=== PATIENT | male | born 1940 | race Caucasian/White ===

== ENCOUNTER → 2018-02-19 11:55 | Outpatient (CLI) | payer MEDICARE, OTHER, SELFPAY ==
[2018-02-19 14:39] LABS: Prostate Specific Ag, Diagnost < 0.05 ng/mL (0.0-4.0)
== END ==
PROVIDERS: Visit Provider Urology
DX: C61 Malignant neoplasm of prostate (principal)
CPT/HCPCS: 36415; 84153

== ENCOUNTER → 2019-02-25 11:52 | Outpatient (CLI) | payer MEDICARE, OTHER, SELFPAY ==
[2019-02-25 20:44] LABS: Prostate Specific Ag, Diagnost 0 ng/mL (0.0-4.0)
== END ==
PROVIDERS: Visit Provider Urology
DX: C61 Malignant neoplasm of prostate (principal)
CPT/HCPCS: 36415; 84153

== ENCOUNTER → 2019-09-02 11:55 | Outpatient (CLI) | payer MEDICARE, OTHER, SELFPAY ==
[2019-09-02 14:23] LABS: Prostate Specific Ag, Diagnost 0 ng/mL (0.0-4.0)
== END ==
PROVIDERS: Visit Provider Urology
DX: C61 Malignant neoplasm of prostate (principal)
CPT/HCPCS: 36415; 84153

== ENCOUNTER → 2019-11-22 12:59 | Outpatient (CLI) | payer MEDICARE, OTHER, SELFPAY ==
--- NOTE | 2019-11-22 13:06 | XR_ITS ---
PROCEDURE: XR CHEST 2V CLINICAL HISTORY: DYSPNEA COMPARISON: CTAC CTA-CHEST from 09/05/2015 CXR1 CHEST-PORTABLE from 09/05/2015 CXR1 CHEST-PORTABLE from 09/07/2015 CXR1 CHEST-PORTABLE from 10/29/2015 FINDINGS: Unremarkable cardiovascular structures. There is mild hyperinflation. Parenchymal opacity is present the in the left lower lobe. This may be related to some parenchymal scarring but is somewhat more prominent compared to the previous exams. There is a subpleural nodule in the left lower lobe as seen on the previous CT scan measuring 10 mm. There are mild atelectatic changes in the right lung base. No acute bony findings. IMPRESSION: 1. COPD with suspected area of scarring in the left lower lobe. This however is somewhat more prominent compared to previous studies. CT may aid for further evaluation to exclude developing nodule. 2. 10 mm subpleural nodular opacity in the left lower lobe similar to previous CT scan of 09/05/2015. Dictated by: Andrey Graham MD 11/22/2019 13:45 Electronically signed by Andrey Graham MD in [place] 11/22/2019 13:45
== END ==
PROVIDERS: PCP Family Medicine; Visit Provider Family Medicine
DX: R06.09 Other forms of dyspnea (principal)
CPT/HCPCS: 71046

== ENCOUNTER → 2020-03-02 12:18 | Outpatient (CLI) | payer MEDICARE, OTHER, SELFPAY ==
[2020-03-02 13:53] LABS: Prostate Specific Ag, Diagnost < 0.064 ng/ml (0.0-4.0)
== END ==
PROVIDERS: Visit Provider Urology
DX: C61 Malignant neoplasm of prostate (principal)
CPT/HCPCS: 36415; 84153

== ENCOUNTER 2020-11-04 09:36 | Emergency (ER) | payer MEDICARE, OTHER, SELFPAY ==
[2020-11-04 09:36] VITALS: BMI 27.3
--- NOTE | 2020-11-04 09:39 | ECG_ITS ---
APPROVED REPORT Exam: Resting ECG HR:91 bpm ECG Measurements Heart Rate 91 AXES TN 132 P 59 QRSd 84 QRS -58 QT 374 T 67 QTc 460 Conclusion Sinus rhythm with premature atrial complexes with aberrant conduction Low voltage QRS Left anterior fascicular block Inferior-posterior infarct, age undetermined Abnormal ECG Electronically signed by : Marcos Hernandez, 11/06/2020 19:42:57
--- NOTE | 2020-11-04 09:39 | XR_ITS ---
PROCEDURE: XR CHEST PORTABLE Referring Doctor: Sarabjit Renteria Patient Age:79Y CLINICAL HISTORY: pain Chest pain COMPARISON: CT CTAC CTA-CHEST from 09/05/2015 CR CXR1 CHEST-PORTABLE from 09/05/2015 CR CXR1 CHEST-PORTABLE from 09/07/2015 CR CXR1 CHEST-PORTABLE from 10/29/2015 CR XR CHEST 2V from 11/22/2019 FINDINGS: AP portable upright chest performed today and compared to 11/22/2019 CXR as well as CT chest from 2014 . Chronic lung changes with some developing emphysematous appearance noting hyperexpansion most evident upper lung fox with slight coarsening markings towards lung bases period this is been seen previously and appears unchanged but no acute focal pneumonia or new density The focal density at the left lung base just above the diaphragm has been seen on previous studies including CT chest from 2014. Chest wall unremarkable. Heart of peers normal upper normal size with viktoriya and mediastinal structures unchanged. IMPRESSION: No acute findings. . Stable chest with nothing definitely acute. Mild chronic changes. Densities at left lung base longstanding feature seen on previous studies. Dictated by: Tr Cyr MD 11/04/2020 17:35 Tr Cyr MD in [place] 11/04/2020 17:35
[2020-11-04 10:03] LABS: Basophils % 0.4 % (0.1-2.0); Eosinophils # 0.2 K/mm3 (0.0-0.4); Eosinophils % 2.1 % (0.1-12.0); Hematocrit 38.1 % (42.0-52.0); Hemoglobin 12.6 g/dL (14.1-18.0); Lymphocytes # 2.8 K/mm3 (0.7-4.5); Mean Corpuscular Hemoglobin 28.7 pg (27.0-31.2); Mean Corpuscular Volume 86.8 fl (80-94); Mean Platelet Volume 7.5 fl (7.4-10.4); Monocytes # 0.4 K/mm3 (0.1-1.0); Monocytes % 5.2 % (1.7-9.3); Neutrophils # 4.9 K/mm3 (1.8-7.8); Neutrophils % 58.3 % (37.0-80.0); Platelet Count 279 K/mm3 (142-424); Red Blood Count 4.39 M/mm3 (4.60-6.20); Red Cell Distribution Width 14.2 % (11.5-17.5); White Blood Count 8.4 K/mm3 (4.8-10.8)
[2020-11-04 10:05] LABS: Anion Gap 11.5 mEq/L (5-15); Blood Urea Nitrogen 12 mg/dl (9-20); Calcium 9.2 mg/dl (8.4-10.2); Carbon Dioxide 28 mmol/L (22.0-30.0); Chloride 101 mmol/L (98-107); Creatinine Clearance Estimated 67 mL/min (50-200); Estimated Glomerular Filt Rate 72 ml/min (>60); GFR (African American) 87 ML/MIN (>60); Glucose 151 mg/dl (74-100); Potassium 3.5 mmoL/L (3.5-5.1); Sodium 137 mmol/L (136-145)
[2020-11-04 10:24] LABS: Troponin I < 0.01 ng/ml (0.00-0.034)
[2020-11-04 10:36] VITALS: BP 144/78; PULSE 72; RESP 20; O2SAT 95
[2020-11-04 10:40] LABS: Alanine Aminotransferase 14 U/L (12-78); Albumin Level 3.9 g/dl (3.5-5.0); Albumin/Globulin Ratio 1.2 (1.1-1.8); Alkaline Phosphatase 59 U/L (38-126); Anion Gap 11.5 mEq/L (5-15); Aspartate Amino Transferase 28 U/L (17-59); Bilirubin,Total 0.4 mg/dl (0.2-1.3); Blood Urea Nitrogen 13 mg/dl (9-20); Calcium 9.2 mg/dl (8.4-10.2); Carbon Dioxide 28 mmol/L (22.0-30.0); Chloride 101 mmol/L (98-107); Creatinine Clearance Estimated 67 mL/min (50-200); Estimated Glomerular Filt Rate 72 ml/min (>60); GFR (African American) 87 ML/MIN (>60); Globulin 3.2 g/dL (1.3-3.2); Glucose 151 mg/dl (74-100); Lipase 74 U/L (23-300); Potassium 3.5 mmoL/L (3.5-5.1); Sodium 137 mmol/L (136-145); Total Protein,Serum 7.1 g/dl (6.3-8.2)
[2020-11-04 11:02] LABS: Activated Partial Thrombo Time 24.3 seconds (23.6-34.0); INR 1.01 (0.9-1.1); Prothrombin Time 11.2 seconds (9.4-11.8)
--- NOTE | 2020-11-04 11:12 | HMH.EDCP ---
ED Disposition Clinical Impression: Chest pain Qualifiers: Chest pain type: unspecified Qualified Code(s): R07.9 - Chest pain, unspecified Disposition: Home, Self-Care Condition on Discharge: Good Additional Instructions: You were seen on an emergency basis. It is very important that you follow up with your primary care provider and/or specialist as we discussed within 2 days. All labs and imaging were obtained and interpreted here to rule out life threatening emergencies, but your final results should be reviewed by your primary doctor at your follow up appointment. Please return to the emergency department if any of your symptoms worsen, or if they do not improve as we discussed. Referrals: Félix Wasserman MD [Primary Care Provider] - - Critical Care Critical Care Time: No Attestation: On 11/04/20, the high probability of a clinically significant, sudden or life threatening deterioration of the following system(s) required my full and direct attention, intervention and personal management. The time I documented below is in addition to time spent performing reported procedures but includes the following listed in this critical care notation. Medical Decision Making - Medical Records Medical records reviewed: Yes: I reviewed the patient's medical records. - Kuldip Inquiry Pt receiving controlled substance: No Vital Signs: 11/04/20 10:36 11/04/20 11:29 11/04/20 12:07 Pulse Rate [Right Radial] 72 69 70 Respiratory Rate 20 16 16 Blood Pressure [Right Arm] 144/78 H 142/76 H 152/79 H Blood Pressure Mean [Right Arm] 100 98 103 Blood Pressure Source [Right Arm] Automatic Cuff Automatic Cuff Automatic Cuff Blood Pressure Position [Right Arm] Supine Sitting 02 Sat by Pulse Oximetry 95 95 96 Oxygen Delivery Method Room Air Room Air 11/04/20 12:30 Pulse Rate [Right Radial] 72 Respiratory Rate 20 Blood Pressure [Right Arm] 143/76 H Blood Pressure Mean [Right Arm] 98 Blood Pressure Source [Right Arm] Automatic Cuff Blood Pressure Position [Right Arm] Supine 02 Sat by Pulse Oximetry 95 Oxygen Delivery Method Room Air - Lab Data Lab results reviewed: Yes: I reviewed the patient's lab results. Lab Results 11/04/20 09:50: WBC 8.4, RBC 4.39 L, Hgb 12.6 L, Hct 38.1 L, MCV 86.8, MCH 28.7, MCHC 33.0, RDW 14.2, Plt Count 279, MPV 7.5, Neut % (Auto) 58.3, Lymph % (Auto) 34.0, [place] % (Auto) 5.2, Eos % (Auto) 2.1, Baso % (Auto) 0.4, Neut # (Auto) 4.9, Lymph # (Auto) 2.8, [place] # (Auto) 0.4, Eos # (Auto) 0.2, Baso # (Auto) 0.0 11/04/20 09:50: Sodium 137, Potassium 3.5, Chloride 101, Carbon Dioxide 28, Anion Gap 11.5, BUN 12, Creatinine 1.00, Estimated Creat Clear 67, Estimated GFR 72, Est GFR ( Amer) 87, Glucose 151 H, Calcium 9.2, Troponin I < 0.01 11/04/20 09:50: Sodium 137, Potassium 3.5, Chloride 101, Carbon Dioxide 28, Anion Gap 11.5, BUN 13, Creatinine 1.00, Estimated Creat Clear 67, Estimated GFR 72, Est GFR ( Amer) 87, Glucose 151 H, Calcium 9.2, Total Bilirubin 0.4, AST 28, ALT 14, Alkaline Phosphatase 59, Total Protein 7.1, Albumin 3.9, Globulin 3.2, Albumin/Globulin Ratio 1.2 11/04/20 09:50: PT 11.2, INR 1.01, APTT 24.3 11/04/20 09:50: Lipase 74 11/04/20 12:10: Troponin I < 0.01 Result diagrams: 11/04/20 09:50 11/04/20 09:50 Orders (Tests/Meds): ED MEDICATIONS Discontinued Medications Generic Name Dose Route Start Last Admin Trade Name Freq PRN Reason Stop Dose Admin Aspirin 243 mg 11/04/20 10:25 11/04/20 10:30 Aspirin 81mg Chewable Tablet PO 11/04/20 10:26 243 mg ONCE ONE Administration ORDERS Category Date Time Status XR chest portable Stat Exams 11/04/20 09:39 Taken Troponin I Q3H Lab 11/04/20 15:45 Ordered Medical Decision Narrative: 79-year-old male presenting with chest pain. Nontoxic, afebrile, hemodynamically stable, oxygenating well on room air. Asymptomatic here. Chest x-ray negative for acute disease. EKG negative for acute ischemia. CB
[2020-11-04 11:29] VITALS: BP 142/76; PULSE 69; RESP 16; O2SAT 95
[2020-11-04 12:07] VITALS: BP 152/79; PULSE 70; RESP 16; O2SAT 96
[2020-11-04 12:30] VITALS: BP 143/76; PULSE 72; RESP 20; O2SAT 95
[2020-11-04 12:42] LABS: Troponin I < 0.01 ng/ml (0.00-0.034)
[2020-11-04 13:38] VITALS: BP 155/74; PULSE 72; RESP 16; TEMP 36.9; O2SAT 98
== END 2020-11-04 13:41 | disposition home or self-care (01) ==
PROVIDERS: Emergency Provider Physician Assistant; PCP Family Medicine
DX: R07.9 Chest pain, unspecified (principal); I10 Essential (primary) hypertension; E78.5 Hyperlipidemia, unspecified; Z79.899 Other long term (current) drug therapy; Z85.46 Personal history of malignant neoplasm of prostate
CPT/HCPCS: 36415; 71045; 80048; 80053; 83690; 84484; 85025; 85610; 85730; 93005; 99282

== ENCOUNTER → 2020-11-23 11:19 | Outpatient (POV) | payer MEDICARE, OTHER, SELFPAY | PROVIDERS: Visit Provider Audiologist | DX: Z00.00 Encounter for general adult medical examination without abnormal findings (principal) ==

== ENCOUNTER → 2020-12-14 11:14 | Outpatient (POV) | payer MEDICARE, OTHER, SELFPAY | PROVIDERS: Visit Provider Audiologist | DX: Z00.00 Encounter for general adult medical examination without abnormal findings (principal) ==

== ENCOUNTER → 2020-12-28 11:21 | Outpatient (POV) | payer MEDICARE, OTHER, SELFPAY | PROVIDERS: Visit Provider Audiologist | DX: Z00.00 Encounter for general adult medical examination without abnormal findings (principal) ==

== ENCOUNTER → 2021-03-05 13:21 | Outpatient (CLI) | payer MEDICARE, OTHER, SELFPAY ==
[2021-03-05 14:48] LABS: Prostate Specific Ag, Diagnost < 0.064 ng/ml (0.0-4.0)
== END ==
PROVIDERS: Visit Provider Urology
DX: C61 Malignant neoplasm of prostate (principal)
CPT/HCPCS: 36415; 84153

== ENCOUNTER → 2021-07-17 11:48 | Outpatient (CLI) | payer MEDICARE, OTHER, SELFPAY ==
--- NOTE | 2021-07-17 11:54 | XR_ITS ---
PROCEDURE: XR CHEST PORTABLE CLINICAL HISTORY: COVID OUTPATIENT COMPARISON: CT CTAC CTA-CHEST from 09/05/2015 CR CXR1 CHEST-PORTABLE from 10/29/2015 CR XR CHEST 2V from 11/22/2019 CR XR CHEST PORTABLE from 11/04/2020 FINDINGS: The cardiomediastinal silhouette and pulmonary vascularity are within normal limits. Faint increased density noted in the left perihilar region and left lower lobe suspicious for pneumonia. COPD changes. No effusions. No acute bony abnormalities. IMPRESSION: Faint infiltrate in the left perihilar region and left lower lobe consistent with pneumonia Dictated by: Andrey Graham MD 07/17/2021 12:17 Andrey Graham MD in [place] 07/17/2021 12:17
[2021-07-17 12:29] LABS: Influenza A, PCR Not Detected (NotDetected); Influenza B, PCR Not Detected (NotDetected)
[2021-07-17 12:40] LABS: Basophils % 0.3 % (0.1-2.0); Eosinophils # 0.1 K/mm3 (0.0-0.4); Eosinophils % 1.4 % (0.1-12.0); Hematocrit 30.9 % (42.0-52.0); Hemoglobin 9.9 g/dL (14.1-18.0); Lymphocytes # 1.4 K/mm3 (0.7-4.5); Lymphocytes % 14.8 % (10-50); Mean Corpuscular Volume 87.7 fl (80-94); Mean Platelet Volume 8.4 fl (7.4-10.4); Monocytes # 0.5 K/mm3 (0.1-1.0); Monocytes % 5.4 % (1.7-9.3); Neutrophils # 7.5 K/mm3 (1.8-7.8); Neutrophils % 78.1 % (37.0-80.0); Platelet Count 259 K/mm3 (142-424); Red Blood Count 3.52 M/mm3 (4.60-6.20); Red Cell Distribution Width 14.6 % (11.5-17.5); White Blood Count 9.6 K/mm3 (4.8-10.8)
[2021-07-17 13:03] LABS: Coronavirus 19, PCR Detected (NotDetected)
== END ==
PROVIDERS: PCP Nurse Practitioner; Visit Provider Nurse Practitioner
DX: Z20.822 Contact with and (suspected) exposure to COVID-19 (principal); U07.1 COVID-19
CPT/HCPCS: 36415; 71045; 85025; C9803; U0003; U0005

== ENCOUNTER 2021-07-22 10:02 | Outpatient (CLI) | payer MEDICARE, OTHER, SELFPAY ==
[2021-07-22] VITALS (7 sets, daily range): BP systolic 145–156; BP diastolic 63–80; PULSE 71–78; RESP 18; TEMP 36.7–37.1; O2SAT 94–95
== END 2021-07-22 12:15 | disposition home or self-care (01) ==
PROVIDERS: PCP Family Medicine; Visit Provider Family Medicine
DX: U07.1 COVID-19 (principal)
CPT/HCPCS: 96365

== ENCOUNTER → 2021-09-06 11:32 | Outpatient (CLI) | payer MEDICARE, OTHER, SELFPAY ==
[2021-09-06 13:54] LABS: Prostate Specific Ag, Diagnost < 0.064 ng/ml (0.0-4.0)
== END ==
PROVIDERS: Visit Provider Urology
DX: C61 Malignant neoplasm of prostate (principal)
CPT/HCPCS: 36415; 84153

== ENCOUNTER → 2021-11-26 11:12 | Outpatient (CLI) | payer MEDICARE, OTHER, SELFPAY ==
--- NOTE | 2021-11-26 11:19 | XR_ITS ---
FINAL REPORT CLINICAL HISTORY: COUGH, congestion post covid in Jul Nonsmoker COMPARISON: July 17, 2021 FINDINGS: Two views of the chest were obtained. The heart size and pulmonary vascularity are within normal limits. The mediastinum is normal. The lungs are hyperinflated consistent with COPD. There is mild scarring. There is improved aeration since the prior exam.. There is no pneumothorax. The bony thorax is intact. IMPRESSION: No acute cardiopulmonary process. Reviewed, Interpreted and Dictated by Jorge Alberto Ribera III, MD Transcribed by Sandip Sanabria Authenticated by Jorge Alberto Ribera III, MD on 11/26/2021 01:07:13 PM [facility]
== END ==
PROVIDERS: PCP Family Medicine; Visit Provider Nurse Practitioner
DX: R05.9 Cough, unspecified (principal)
CPT/HCPCS: 71046

== ENCOUNTER → 2022-03-07 11:40 | Outpatient (CLI) | payer MEDICARE, OTHER, SELFPAY ==
[2022-03-07 15:19] LABS: Prostate Specific Ag, Diagnost < 0.064 ng/ml (0.0-4.0)
== END ==
PROVIDERS: Visit Provider Urology
DX: C61 Malignant neoplasm of prostate (principal)
CPT/HCPCS: 36415; 84153

== ENCOUNTER → 2022-04-30 07:01 | Outpatient (CLI) | payer MEDICARE, OTHER, SELFPAY ==
[2022-04-29 18:09] LABS: Basophils # 0.1 K/mm3 (0-0.2); Basophils % 0.5 % (0.1-2.0); Eosinophils # 0.1 K/mm3 (0.0-0.4); Eosinophils % 1.5 % (0.1-12.0); Hematocrit 32.4 % (42.0-52.0); Hemoglobin 10.5 g/dL (14.1-18.0); Lymphocytes # 2.3 K/mm3 (0.7-4.5); Lymphocytes % 25.6 % (10-50); Mean Corpuscular HGB Conc 32.4 g/dL (31.8-35.4); Mean Corpuscular Hemoglobin 27.2 pg (27.0-31.2); Mean Platelet Volume 7.7 fl (7.4-10.4); Monocytes # 0.8 K/mm3 (0.1-1.0); Monocytes % 8.6 % (1.7-9.3); Neutrophils # 5.6 K/mm3 (1.8-7.8); Neutrophils % 63.8 % (37.0-80.0); Platelet Count 276 K/mm3 (142-424); Red Blood Count 3.86 M/mm3 (4.60-6.20); Red Cell Distribution Width 14.9 % (11.5-17.5); White Blood Count 8.8 K/mm3 (4.8-10.8)
[2022-04-29 18:25] LABS: Alanine Aminotransferase 16 U/L (12-78); Albumin Level 3.6 g/dl (3.5-5.0); Albumin/Globulin Ratio 1.3 (1.1-1.8); Alkaline Phosphatase 67 U/L (38-126); Anion Gap 10.8 mEq/L (5-15); Aspartate Amino Transferase 24 U/L (17-59); Blood Urea Nitrogen 12 mg/dl (9-20); Calcium 8.8 mg/dl (8.4-10.2); Carbon Dioxide 28 mmol/L (22.0-30.0); Chloride 100 mmol/L (98-107); Estimated Glomerular Filt Rate 81 ml/min (>60); GFR (African American) 98 ML/MIN (>60); Globulin 2.7 g/dL (1.3-3.2); Glucose 104 mg/dl (74-100); Potassium 4.8 mmoL/L (3.5-5.1); Sodium 134 mmol/L (136-145); Total Protein,Serum 6.3 g/dl (6.3-8.2)
[2022-04-29 18:37] LABS: Bilirubin,Total < 0.1 mg/dl (0.2-1.3)
== END ==
PROVIDERS: PCP Nurse Practitioner; Visit Provider Nurse Practitioner
DX: R05.3 Chronic cough (principal)
CPT/HCPCS: 80053; 85025

== ENCOUNTER → 2022-04-30 11:43 | Outpatient (CLI) | payer MEDICARE, OTHER, SELFPAY ==
--- NOTE | 2022-04-30 11:54 | XR_ITS ---
FINAL REPORT CLINICAL HISTORY: SOB, cough, wheeze COMPARISON: 11/26/2021 FINDINGS: SINGLE-VIEW CHEST There is mild cardiomegaly. The mediastinum is normal. There is scarring at the bases. There is an airspace opacity in the right mid lung, probably due to acute pneumonia. Finding is new since the previous. There is no pneumothorax. IMPRESSION: Probable right midlung pneumonia. Recommend continued follow-up. Reviewed, Interpreted and Dictated by Aidan Alicea MD Transcribed by Charis Pizarro Authenticated and [facility]
== END ==
PROVIDERS: PCP Family Medicine; Visit Provider Nurse Practitioner
DX: R05.3 Chronic cough (principal); R06.02 Shortness of breath; R06.2 Wheezing
CPT/HCPCS: 71045; 80053; 85025

== ENCOUNTER → 2022-08-12 12:15 | Outpatient (CLI) | payer MEDICARE, OTHER, SELFPAY ==
[2022-08-12 19:36] LABS: Alanine Aminotransferase 17 U/L (12-78); Albumin Level 3.7 g/dl (3.5-5.0); Albumin/Globulin Ratio 1.5 (1.1-1.8); Alkaline Phosphatase 76 U/L (38-126); Anion Gap 15.8 mEq/L (5-15); Aspartate Amino Transferase 26 U/L (17-59); Bilirubin,Total 0.3 mg/dl (0.2-1.3); Blood Urea Nitrogen 15 mg/dl (9-20); Calcium 8.5 mg/dl (8.4-10.2); Carbon Dioxide 27 mmol/L (22.0-30.0); Chloride 98 mmol/L (98-107); Cholesterol 199 mg/dl (140-200); Estimated Glomerular Filt Rate 92 ml/min (>60); GFR (African American) 112 ML/MIN (>60); Globulin 2.5 g/dL (1.3-3.2); Glucose 103 mg/dl (74-100); HDL Cholesterol 50 mg/dl (40-60); Potassium 4.8 mmoL/L (3.5-5.1); Sodium 136 mmol/L (136-145); Total Protein,Serum 6.2 g/dl (6.3-8.2); Triglycerides 143 mg/dl (30-150); VLDL Cholesterol 29 mg/dL (0-40)
[2022-08-12 19:53] LABS: Direct LDL Cholesterol 120.31 mg/dL (100-129)
[2022-08-12 20:13] LABS: Prostate Specific Ag, Diagnost < 0.064 ng/ml (0.0-4.0)
== END ==
PROVIDERS: PCP Family Medicine; Visit Provider Family Medicine
DX: R07.9 Chest pain, unspecified; I10 Essential (primary) hypertension; Z85.46 Personal history of malignant neoplasm of prostate
CPT/HCPCS: 80053; 80061; 84153

== ENCOUNTER → 2023-02-10 23:19 | Outpatient (CLI) | payer MEDICARE, OTHER, SELFPAY ==
[2023-02-10 17:49] LABS: Alanine Aminotransferase 14 U/L (12-78); Albumin Level 3.6 g/dl (3.5-5.0); Albumin/Globulin Ratio 1.4 (1.1-1.8); Alkaline Phosphatase 67 U/L (38-126); Anion Gap 11.3 mEq/L (5-15); Aspartate Amino Transferase 24 U/L (17-59); Bilirubin,Total 0.3 mg/dl (0.2-1.3); Blood Urea Nitrogen 14 mg/dl (9-20); Calcium 8.4 mg/dl (8.4-10.2); Carbon Dioxide 28 mmol/L (22.0-30.0); Chloride 99 mmol/L (98-107); Cholesterol 171 mg/dl (140-200); Estimated Glomerular Filt Rate 71 ml/min (>60); GFR (African American) 86 ML/MIN (>60); Globulin 2.6 g/dL (1.3-3.2); Glucose 97 mg/dl (74-100); HDL Cholesterol 43 mg/dl (40-60); Potassium 4.3 mmoL/L (3.5-5.1); Sodium 134 mmol/L (136-145); Total Protein,Serum 6.2 g/dl (6.3-8.2); Triglycerides 140 mg/dl (30-150); VLDL Cholesterol 28 mg/dL (0-40)
[2023-02-10 18:02] LABS: Direct LDL Cholesterol 103.88 mg/dL (100-129)
[2023-02-10 18:05] LABS: Hemoglobin A1C 5.7 % (4.0-6.0)
[2023-02-10 18:22] LABS: Thyroid Stimulating Hormone 3.23 uIU/mL (0.465-4.68)
[2023-02-10 18:23] LABS: Prostate Specific Ag, Diagnost < 0.064 ng/ml (0.0-4.0)
[2023-02-10 21:20] LABS: Microalbumin/Creatinine Ratio 13.7
[2023-02-10 21:34] LABS: Creatinine,Urine Random 106 mg/dL (Not Estab.)
== END ==
PROVIDERS: PCP Nurse Practitioner; Visit Provider Nurse Practitioner
DX: E78.5 Hyperlipidemia, unspecified (principal); I10 Essential (primary) hypertension; R73.01 Impaired fasting glucose; Z85.46 Personal history of malignant neoplasm of prostate
CPT/HCPCS: 80053; 80061; 82043; 82570; 83036; 84153; 84443

== ENCOUNTER → 2023-02-21 13:28 | Outpatient (CLI) | payer MEDICARE, OTHER, SELFPAY | PROVIDERS: PCP Nurse Practitioner; Visit Provider Nurse Practitioner | DX: R60.0 Localized edema (principal) | CPT/HCPCS: 93306 ==

== ENCOUNTER → 2023-04-16 12:20 | Outpatient (CLI) | payer MEDICARE, OTHER, SELFPAY ==
[2023-04-16 18:29] LABS: Chloride 99 mmol/L (98-107)
[2023-04-16 18:30] LABS: Potassium 4.8 mmoL/L (3.5-5.1); Sodium 135 mmol/L (136-145)
[2023-04-16 18:32] LABS: Alanine Aminotransferase 17 U/L (12-78); Alkaline Phosphatase 62 U/L (38-126); Aspartate Amino Transferase 32 U/L (17-59); Blood Urea Nitrogen 19 mg/dl (9-20); Estimated Glomerular Filt Rate 64 ml/min (>60); GFR (African American) 77 ML/MIN (>60)
[2023-04-16 18:33] LABS: Albumin Level 3.6 g/dl (3.5-5.0); Albumin/Globulin Ratio 1.3 (1.1-1.8); Anion Gap 13.8 mEq/L (5-15); Calcium 8.5 mg/dl (8.4-10.2); Carbon Dioxide 27 mmol/L (22.0-30.0); Globulin 2.7 g/dL (1.3-3.2); Glucose 105 mg/dl (74-100); Total Protein,Serum 6.3 g/dl (6.3-8.2)
[2023-04-16 18:37] LABS: Bilirubin,Total 0.1 mg/dl (0.2-1.3)
== END ==
PROVIDERS: PCP Nurse Practitioner; Visit Provider Nurse Practitioner
DX: I10 Essential (primary) hypertension (principal)
CPT/HCPCS: 80053

== ENCOUNTER → 2023-08-12 10:52 | Outpatient (CLI) | payer MEDICARE, OTHER, SELFPAY ==
[2023-08-12 17:53] LABS: Basophils % 0.3 % (0.1-2.0); Eosinophils # 0.2 K/mm3 (0.0-0.4); Eosinophils % 1.8 % (0.1-12.0); Hematocrit 29.2 % (42.0-52.0); Hemoglobin 9.3 g/dL (14.1-18.0); Lymphocytes # 1.9 K/mm3 (0.7-4.5); Lymphocytes % 20.6 % (10-50); Mean Corpuscular HGB Conc 31.8 g/dL (31.8-35.4); Mean Corpuscular Hemoglobin 23.9 pg (27.0-31.2); Mean Corpuscular Volume 75.1 fl (80-94); Mean Platelet Volume 8.7 fl (7.4-10.4); Monocytes # 0.6 K/mm3 (0.1-1.0); Monocytes % 6.6 % (1.7-9.3); Neutrophils # 6.7 K/mm3 (1.8-7.8); Neutrophils % 70.8 % (37.0-80.0); Platelet Count 348 K/mm3 (142-424); Red Blood Count 3.88 M/mm3 (4.60-6.20); Red Cell Distribution Width 17.4 % (11.5-17.5); White Blood Count 9.4 K/mm3 (4.8-10.8)
[2023-08-12 17:59] LABS: Alanine Aminotransferase 17 U/L (12-78); Albumin Level 3.8 g/dl (3.5-5.0); Albumin/Globulin Ratio 1.4 (1.1-1.8); Alkaline Phosphatase 71 U/L (38-126); Anion Gap 12.6 mEq/L (5-15); Aspartate Amino Transferase 44 U/L (17-59); Bilirubin,Total 0.4 mg/dl (0.2-1.3); Blood Urea Nitrogen 13 mg/dl (9-20); Carbon Dioxide 25 mmol/L (22.0-30.0); Chloride 99 mmol/L (98-107); Cholesterol 183 mg/dl (140-200); Estimated Glomerular Filt Rate 80 ml/min (>60); GFR (African American) 97 ML/MIN (>60); Globulin 2.7 g/dL (1.3-3.2); Glucose 113 mg/dl (74-100); HDL Cholesterol 46 mg/dl (40-60); Potassium 4.6 mmoL/L (3.5-5.1); Sodium 132 mmol/L (136-145); Total Protein,Serum 6.5 g/dl (6.3-8.2); Triglycerides 123 mg/dl (30-150); VLDL Cholesterol 25 mg/dL (0-40)
[2023-08-12 18:10] LABS: Direct LDL Cholesterol 109.31 mg/dL (100-129)
[2023-08-12 18:38] LABS: Prostate Specific Ag, Diagnost < 0.064 ng/ml (0.0-4.0)
[2023-08-12 20:55] LABS: Hemoglobin A1C 5.7 % (4.0-6.0)
== END ==
PROVIDERS: PCP Nurse Practitioner; Visit Provider Nurse Practitioner
DX: E78.5 Hyperlipidemia, unspecified (principal); I10 Essential (primary) hypertension; R06.02 Shortness of breath; R60.0 Localized edema; R73.01 Impaired fasting glucose; Z85.46 Personal history of malignant neoplasm of prostate; R05.3 Chronic cough
CPT/HCPCS: 80053; 80061; 83036; 84153; 85025

== ENCOUNTER → 2023-08-18 11:07 | Outpatient (CLI) | payer MEDICARE, OTHER, SELFPAY ==
--- NOTE | 2023-08-18 11:10 | NM_ITS ---
APPROVED REPORT Exam: Nuclear Stress Test Indication: HTN, HYPERLIPIDEMIA, SOB, FATIGUE Patient Location: Outpatient Stress Tech: Dayan Chi [place] Tech:ILIANA Andre RT (R)(N)(M) Ht: 5 ft 8 in Wt: 200 lbs HR: 75 bpm BP: 165/71 mmHg BSA: 2.04 m2 Rhythm: NSR TID: 1.21 BMI: 30.4 History: HTN, HYPERLIPIDEMIA, SOB, FATIGUE Procedure: Patient received 0.4 mg of intravenous Lexiscan, resting heart rate 75 bpm, resting blood pressure 165/71 mmHg, with Lexiscan maximum heart rate achieved was 102 bpm which is % of the maximum predicted heart rate and blood pressure was 165/71 mmHg. With Lexiscan, patient denied any complaint of chest pain. Cardiac Stress and Resting SPECT Images: Cardiac Stress and Resting SPECT images were obtained using technetium 99m Myoview 30.8 mCi stress and 10.40 mCi at rest. Resting and stress imaging in supine position demonstrate medium sized, moderate, fixed perfusion defect in the inferior LV wall. This is no longer visualized with prone stress imaging. Findings are suggestive of diaphragmatic attenuation. There is borderline increase in transient ischemic dilatation ratio (TID 1.21), suggestive of possible multivessel disease or balanced ischemia. Gated imaging demonstrates normal global and regional LV systolic function. LVEF is calculated at 69%. Conclusion: Diaphragmatic attenuation is present. No definite evidence of fixed or reversible perfusion defects. Borderline increase in transient ischemic dilatation ratio (TID 1.21), suggestive of possible multivessel disease or balanced ischemia. Gated imaging demonstrates normal global and regional LV systolic function. LVEF is calculated at 69%. Electronically signed by : Ana Kimble MD 08/21/2023 12:46:51
--- NOTE | 2023-08-18 13:34 | CA_ITS ---
APPROVED REPORT Exam: Pharmacologic Technologist: Dayan Chi Ht: 5 ft 8 in Wt: 205 lbs BSA: 2.07 m2 HR: 77 bpm BP: 165/71 mmHg Rhythm: NSR Indications: Shortnessof Breath Medical History Medications: Lisinopril,,,,, Aspirin,,,,, Albuterol,,,,, DOxazosin,,,,, Furosemide,,,,, Stress Test Details Test: LEXISCAN HR Resting HR: 75 bpm Max Heart Rate (APMHR): 136 bpm Max HR Achieved: 102 bpm Target HR (85% APMHR): 116 bpm % of APMHR: 75 Recovery HR: 87 bpm BP Resting BP: 165.0/71.0 mmHg Max BP: 165.0/71.0 mmHg Recovery BP: 132.0/60.0 mmHg ECG Resting ECG: Sinus rhythm, PVCs Stress ECG: No significant ST changes Arrhythmia: PVCs Clinical Exercise duration: 04:04 min Highest Stage Achieved: Exercise capacity: 1.0 METs Stress ECG Conclusion Symptoms: Dyspnea Arrhythmias/Ectopy: PVC's ST-T Changes: No significant changes Conclusion: Unremarkable Lexiscan stress test. Myoview images are reported separately. Test Summary REST . . . . . . . Resting REST 03:14 . . 75 . 165/ 71 . . Stage 1 . . . . . . . Myoview Injected Stage 1 01:00 . . 88 . . . . Stage 2 01:00 . . 93 . 124/ 52 . . Stage 3 . . . . . . . chest tightness Stage 3 01:00 . . 92 . 124/ 57 . . Stage 4 01:00 . . 89 . 123/ 58 . . Stage 4 01:04 . . 89 . 123/ 58 . Stop exercise at 04:04 RECOVERY 01:00 . . 87 . . . . RECOVERY 02:00 . . 88 . 139/ 60 . . RECOVERY 03:00 . . 88 . 136/ 64 . . RECOVERY 04:00 . . 87 . 132/ 60 . . RECOVERY 04:28 . . 86 . 132/ 60 . . Electronically signed by : Ana Kimble MD 08/21/2023 12:44:06
== END ==
PROVIDERS: PCP Nurse Practitioner; Visit Provider Nurse Practitioner
DX: R06.02 Shortness of breath (principal)
CPT/HCPCS: 78452; 93017; A9502; J2785

== ENCOUNTER → 2023-08-20 14:31 | Outpatient (CLI) | payer MEDICARE, OTHER, SELFPAY ==
[2023-08-20 15:40] VITALS: PULSE 88; PULSE 90
== END ==
PROVIDERS: PCP Nurse Practitioner; Visit Provider Nurse Practitioner
DX: R06.02 Shortness of breath (principal)
CPT/HCPCS: 94060; 94640

== ENCOUNTER 2023-09-01 08:44 | Day surgery (SDC) | payer MEDICARE, OTHER, SELFPAY ==
[2023-09-01] VITALS (12 sets, daily range): BP systolic 107–187; BP diastolic 53–90; PULSE 62–86; RESP 16–20; TEMP 36.9; O2SAT 90–100; BMI 31.0
--- NOTE | 2023-09-01 07:13 | IR_ITS ---
APPROVED REPORT Patient Location: Outpatient Chief Engineering Division: ILIANA Gar RT (R) PROCEDURES Left heart catheterization Left ventriculogram Selective coronary angiogram INDICATION Abnormal Myoview, Suspected angina pectoris Informed consent was obtained prior to the procedure. COMPLICATIONS None Estimated Blood Loss: Less than 10 ML TECHNIQUE One percent lidocaine used to anesthetize the right anterior aspect of the wrist. The right radial artery was accessed via the Seldinger technique. A 6 Egyptian sheath was placed in the right radial artery. 2.5 mg of Verapamil, 800 mcg of nitroglycerin, 1mg Lidocaine and 5000 U Heparin were given through the arterial sheath. The papa catheter was also used to perform left heart catheterization, left ventriculogram and selective coronary angiogram. At the end of the procedure the sheath was removed good hemostasis was achieved using Traclet band, patient was transferred to the postop holding area in stable condition. ANGIOGRAPHIC RESULTS The left main artery Normal The left anterior descending artery Proximally normal with a long mid vessel 40 to 50% concentric stenosis The circumflex artery Large dominant normal The right coronary artery Nondominant normal The PINEDA ventriculogram reveals Normal 65% The left ventricular end-diastolic pressure 10 to 15 mmHg IMPRESSION Moderate mid LAD disease which is unlikely producing symptoms or the etiology for the abnormal Myoview Normal ejection fraction Normal LVEDP PLAN 1. Medical management Electronically signed by : Hermes Wyatt MD 09/01/2023 11:20:27
[2023-09-01 09:21] LABS: Basophils % 0.4 % (0.1-2.0); Eosinophils # 0.2 K/mm3 (0.0-0.4); Eosinophils % 2.1 % (0.1-12.0); Hematocrit 29.6 % (42.0-52.0); Hemoglobin 9.5 g/dL (14.1-18.0); Lymphocytes # 2.7 K/mm3 (0.7-4.5); Lymphocytes % 26.1 % (10-50); Mean Corpuscular Hemoglobin 23.7 pg (27.0-31.2); Mean Platelet Volume 7.6 fl (7.4-10.4); Monocytes # 0.6 K/mm3 (0.1-1.0); Monocytes % 5.4 % (1.7-9.3); Neutrophils # 6.9 K/mm3 (1.8-7.8); Neutrophils % 65.9 % (37.0-80.0); Platelet Count 354 K/mm3 (142-424); Red Blood Count 4.01 M/mm3 (4.60-6.20); Red Cell Distribution Width 17.5 % (11.5-17.5); White Blood Count 10.5 K/mm3 (4.8-10.8)
[2023-09-01 09:24] LABS: Chloride 103 mmol/L (98-107); Potassium 3.9 mmoL/L (3.5-5.1); Sodium 137 mmol/L (136-145)
[2023-09-01 09:27] LABS: Anion Gap 11.9 mEq/L (5-15); Blood Urea Nitrogen 15 mg/dl (9-20); Calcium 8.7 mg/dl (8.4-10.2); Carbon Dioxide 26 mmol/L (22.0-30.0); Creatinine Clearance Estimated 72 mL/min (50-200); Estimated Glomerular Filt Rate 71 ml/min (>60); GFR (African American) 86 ML/MIN (>60); Glucose 115 mg/dl (74-100)
== END 2023-09-01 14:42 | disposition home or self-care (01) ==
PROVIDERS: PCP Nurse Practitioner; Visit Provider Internal Medicine
DX: I25.118 Atherosclerotic heart disease of native coronary artery with other forms of angina pectoris (principal); R94.39 Abnormal result of other cardiovascular function study; R06.02 Shortness of breath; Z79.899 Other long term (current) drug therapy; I10 Essential (primary) hypertension; E78.5 Hyperlipidemia, unspecified; R94.31 Abnormal electrocardiogram [ECG] [EKG]
CPT/HCPCS: 80048; 82565; 85025; 93458; 99152; C1725; C1769; J1644; Q9967

== ENCOUNTER → 2023-09-16 11:03 | Outpatient (POV) | payer MEDICARE, OTHER, SELFPAY | PROVIDERS: PCP Nurse Practitioner; Visit Provider Dermatology | DX: Z00.00 Encounter for general adult medical examination without abnormal findings (principal) ==

== ENCOUNTER 2023-10-23 16:32 | Outpatient (CLI) | payer MEDICARE, OTHER, SELFPAY ==
[2023-10-23 19:46] LABS: Basophils # 0.1 K/mm3 (0-0.2); Basophils % 0.7 % (0.1-2.0); Eosinophils # 0.2 K/mm3 (0.0-0.4); Eosinophils % 1.9 % (0.1-12.0); Hematocrit 28.1 % (42.0-52.0); Hemoglobin 8.6 g/dL (14.1-18.0); Lymphocytes # 2.5 K/mm3 (0.7-4.5); Lymphocytes % 26.5 % (10-50); Mean Corpuscular HGB Conc 30.5 g/dL (31.8-35.4); Mean Corpuscular Hemoglobin 22.5 pg (27.0-31.2); Mean Corpuscular Volume 73.8 fl (80-94); Mean Platelet Volume 7.6 fl (7.4-10.4); Monocytes # 0.5 K/mm3 (0.1-1.0); Monocytes % 5.5 % (1.7-9.3); Neutrophils # 6.2 K/mm3 (1.8-7.8); Neutrophils % 65.5 % (37.0-80.0); Platelet Count 370 K/mm3 (142-424); Red Cell Distribution Width 17.8 % (11.5-17.5); Reticulocyte % (Auto) 1.9 % (0.9-3.2); White Blood Count 9.4 K/mm3 (4.8-10.8)
[2023-10-23 20:23] LABS: Chloride 105 mmol/L (98-107); Sodium 137 mmol/L (136-145)
[2023-10-23 20:24] LABS: Potassium 4.1 mmoL/L (3.5-5.1)
[2023-10-23 20:26] LABS: Alanine Aminotransferase 24 U/L (12-78); Alkaline Phosphatase 65 U/L (38-126); Anion Gap 12.1 mEq/L (5-15); Aspartate Amino Transferase 29 U/L (17-59); Bilirubin,Total 0.3 mg/dl (0.2-1.3); Blood Urea Nitrogen 16 mg/dl (9-20); Carbon Dioxide 24 mmol/L (22.0-30.0); Estimated Glomerular Filt Rate 64 ml/min (>60); GFR (African American) 77 ML/MIN (>60)
[2023-10-23 20:27] LABS: Albumin Level 3.6 g/dl (3.5-5.0); Albumin/Globulin Ratio 1.5 (1.1-1.8); Calcium 8.1 mg/dl (8.4-10.2); Globulin 2.4 g/dL (1.3-3.2); Glucose 107 mg/dl (74-100); Iron 26 ug/dL (49-181)
[2023-10-23 20:44] LABS: Total Iron Binding Capacity 417 ug/dL (261-462)
[2023-10-23 23:19] LABS: Vitamin B12 182 pg/mL (239-931)
== END 2023-10-23 23:59 ==
LOC: LAB.DROPOF 10-24 11:11
PROVIDERS: PCP Nurse Practitioner; Visit Provider Nurse Practitioner
DX: D64.9 Anemia, unspecified (principal)
CPT/HCPCS: 80053; 82607; 82728; 83540; 83550; 85025; 85044

== ENCOUNTER 2023-11-12 10:57 | Day surgery (SDC) | payer MEDICARE, OTHER, SELFPAY ==
[2023-11-11 13:28] VITALS: BMI 31.9
[2023-11-12] VITALS (7 sets, daily range): BP systolic 74–167; BP diastolic 47–92; PULSE 62–101; RESP 14–18; TEMP 36.1–36.2; O2SAT 94–98
[2023-11-12] MEDS: LACTATED RINGERS 1000ML 1,000 ML 100 ML IV (11:34)
--- NOTE | 2023-11-12 11:45 | P.PNANES_ITS ---
[facility] Disclaimer: The information contained in this section may have been updated after the patient was seen, as this information can be updated by other users. Medical History Abnormal PFT Anemia COPD (chronic obstructive pulmonary disease) Coronary artery disease Dyslipidemia Dyspnea on exertion Edema of both lower extremities Essential hypertension Fibrosis of lung History of smoking 30 or more pack years Hypertension IFG (impaired fasting glucose) Impacted cerumen, left ear Neoplasm of uncertain behavior of skin of face Prostate cancer Shortness of breath Vitamin B12 deficiency Surgical History History of appendectomy History of hernia repair Family History Other Cancer Social History Smoking Status: Never smoker second hand exposure: No alcohol intake: never substance use type: denies use current occupational status: retired Travel in the last 8 weeks: None household members: spouse housing: house current occupational exposures/hazards: No caffeine: Yes [facility] Anesthesia Checklist Patient Identification Patient Identification: Arm Band and Verbal (Name & ) Structural Data Admitted From: Home Planned Operative Procedure/s: EGD/Colonoscopy Consent for Planned Operative Procedure(s) Verified: Yes NPO Status Verified Time NPO: 00:00 Airway Assessment Mallampati Score:: Class I C-Spine Mobility Assessed: Yes TMJ Mobility Assessed: Yes Dentition: Dentures-good fit Neurological Assessment Level of Consciousness: Awake Hx Seizures: No Numbness or tingling in extremities: No Anesthesia Plan Anesthesia Risk discussed: Yes Anesthesia Plan: Verified ASA Class: III Anesthesia Type: MAC
--- NOTE | 2023-11-12 12:55 | HMH.SCOPE ---
Procedure: Date: 11/12/23 Patient Date of :: 1940 Procedure Performed:: Colonoscopy Indications:: The patient is an 82-year-old who presents for colonoscopy for iron deficiency anemia. The patient has no history of overt GI bleeding. Performing Provider:: Ernst Madsen MD Referring Provider:: Junaid Lang MD Sedation:: See RN records Procedure:: After placing the patient in the left lateral decubitus position, the colonoscopy was gently inserted into the rectum and under direct visualization advanced to the cecum which was identified by transillumination in the right lower quadrant, identification of the ileocecal valve, appendiceal orifice, and cecal strap. Color, texture, mucosa, and anatomy of the colon were carefully examined with the scope. Findings:: The quality of the bowel preparation was fair to poor, this was mostly in the sigmoid colon and descending colon. Time was spent irrigating and cleansing the mucosa. The sigmoid colon appeared edematous with congested appearing mucosa. This created a smaller caliber lumen in this area. Biopsies were obtained. There was extensive diverticulosis in the sigmoid colon. There was also diverticulosis in the transverse and descending colon. A 3 mm sessile polyp was found in the distal transverse colon. The polyp was removed with a cold forceps. There was a sessile polyp 7 mm in size in the descending colon. The polyp was removed with a cold snare polypectomy. Resection was complete and polyp was retrieved. Impression: Edematous (congested) mucosa of the sigmoid colon Diverticulosis Polyp of descending colon and transverse colon Fair bowel preparation Recommendations:: Await pathology result CT abdomen and pelvis with contrast Will also arrange small bowel capsule endoscopy after review of CT abdomen pelvis first Complications:: None Estimated blood obtained (mL): 0 Colonoscopy Component Colonoscopy Component Was a colonoscopy performed during today's procedure?: Yes Recommended follow up colonoscopy of at least 10 years?: No If no, follow up colonoscopy recommended in ___ years?: No further surveillance colonoscopy due to age Reason for not recommending >/= 10 yr follow-up interval?: See above
--- NOTE | 2023-11-12 13:35 | HMH.SCOPE ---
Procedure: Date: 11/12/23 Patient Date of :: 1940 Procedure Performed:: EGD Indications:: The patient is an 82-year-old who presents for EGD evaluation of anemia Performing Provider:: Ernst Madsen MD Referring Provider:: Junaid Lang MD Sedation:: See RN records Procedure:: The gastroscope was gently passed through the incisoral orifice into the oral cavity and under direct visualization the esophagus was intubated. The endoscope was passed down the esophagus, through the stomach, and into the duodenum. Color, texture, mucosa, and anatomy of the esophagus, stomach, and duodenum were carefully examined with the scope. Findings:: The Z-line was measured at 36 cm from the incisors. There was a non-obstructing Schatzki's ring. The biopsy forceps was used to break apart the ring. There was a hiatal hernia approximately 3 to 4 cm in size. There were no apparent Amor ulcerations. There was a moderate amount of inflammation in the body of the stomach. Biopsies were obtained for histology. Recommendations:: Await pathology results Move forward to colonoscopy for further evaluation of iron deficiency anemia Complications:: None Estimated blood obtained (mL): 0 Colonoscopy Component Colonoscopy Component Was a colonoscopy performed during today's procedure?: No
--- NOTE | 2023-11-12 13:38 | HMH.SCOPE ---
Procedure: Date: 11/12/23 Patient Date of :: 1940 Indications:: The patient Performing Provider:: Ernst Madsen MD
== END 2023-11-12 14:23 | disposition home or self-care (01) ==
PROVIDERS: PCP Nurse Practitioner; Visit Provider Internal Medicine
PROC: 0DJ08ZZ Inspection of Upper Intestinal Tract, Via Natural or Artificial Opening Endoscopic (ICD-10-PCS; CPT 43235; principal; 2023-11-12 12:00)
DX: D50.9 Iron deficiency anemia, unspecified (principal); K57.30 Diverticulosis of large intestine without perforation or abscess without bleeding; K22.2 Esophageal obstruction; K44.9 Diaphragmatic hernia without obstruction or gangrene; K29.50 Unspecified chronic gastritis without bleeding; K31.A0 Gastric intestinal metaplasia, unspecified; D12.5 Benign neoplasm of sigmoid colon
CPT/HCPCS: 43239; 45380; 45385; 88305; 88342; J2704

== ENCOUNTER 2023-11-25 10:41 | Outpatient (CLI) | payer MEDICARE, OTHER, SELFPAY ==
[2023-11-25 11:36] LABS: Basophils # 0.1 K/mm3 (0-0.2); Basophils % 0.7 % (0.1-2.0); Eosinophils # 0.2 K/mm3 (0.0-0.4); Eosinophils % 2.2 % (0.1-12.0); Hematocrit 34.1 % (42.0-52.0); Lymphocytes # 2.6 K/mm3 (0.7-4.5); Lymphocytes % 25.9 % (10-50); Mean Corpuscular HGB Conc 32.4 g/dL (31.8-35.4); Mean Corpuscular Hemoglobin 25.7 pg (27.0-31.2); Mean Corpuscular Volume 79.5 fl (80-94); Mean Platelet Volume 7.7 fl (7.4-10.4); Monocytes # 0.6 K/mm3 (0.1-1.0); Monocytes % 6.1 % (1.7-9.3); Neutrophils # 6.4 K/mm3 (1.8-7.8); Neutrophils % 65.1 % (37.0-80.0); Platelet Count 328 K/mm3 (142-424); Red Blood Count 4.29 M/mm3 (4.60-6.20); Red Cell Distribution Width 21.6 % (11.5-17.5); White Blood Count 9.9 K/mm3 (4.8-10.8)
[2023-11-25 13:23] LABS: Vitamin B12 857 pg/mL (239-931)
[2023-11-25 13:27] LABS: Iron 38 ug/dL (49-181)
[2023-11-25 13:36] LABS: Total Iron Binding Capacity 338 ug/dL (261-462)
[2023-11-25 14:04] LABS: Ferritin 13.7 ng/ml (17.9-464)
== END 2023-11-25 23:59 ==
LOC: LAB 10:42
PROVIDERS: PCP Nurse Practitioner; Visit Provider Internal Medicine Medical Oncology
DX: D50.9 Iron deficiency anemia, unspecified (principal); E53.8 Deficiency of other specified B group vitamins
CPT/HCPCS: 36415; 82607; 82728; 82746; 83540; 83550; 85025

== ENCOUNTER 2023-11-26 07:59 | Outpatient (CLI) | payer MEDICARE, OTHER, SELFPAY ==
[2023-11-26 08:32] VITALS: BMI 31.3
--- NOTE | 2023-11-26 08:37 | CT_ITS ---
FINAL REPORT CLINICAL HISTORY: ABN COLONOSCOPY AND ANEMIA COMPARISON: None FINDINGS: CT OF THE ABDOMEN AND PELVIS WITH CONTRAST Axial CT images of the abdomen and pelvis were obtained after the administration of oral and iv contrast. Coronal reformatted images were also obtained and reviewed.This study was performed with techniques to keep radiation doses as low as reasonably achievable (ALARA). Individualized dose reduction techniques using automated exposure control or adjustment of mA and/or kV according to the patient's size were employed. Abdomen: There are several nodules in the left lung base measuring up to 22 mm. There is also a groundglass nodule in the right lung base measuring 16 mm. The heart is normal in size. There are several low-attenuation masses in the liver which are not definite simple cysts or hemangiomas. The spleen is unremarkable. No adrenal mass is present. The pancreas has an unremarkable appearance. There is a small left renal cyst. The aorta is normal in caliber. There are moderate vascular calcifications. There is no free fluid or adenopathy. There is an umbilical hernia containing fat. Pelvis: The appendix is not well-visualized. The urinary bladder is unremarkable. Prostate seed implants are noted. There is no evidence of mass or adenopathy. There is widespread diverticulosis. There is no evidence of bowel obstruction. IMPRESSION: Bibasilar pulmonary nodules may represent inflammation or neoplasm. Recommend follow-up CT chest in 3 months or PET/CT. Hepatic masses, not definite cysts. Recommend follow-up liver mass protocol CT or liver MRI Reviewed, Interpreted and Dictated by Jorge Alberto Ribera III, MD Transcribed by Patsy Love Authenticated and [facility]
[2023-11-26 09:05] LABS: Blood Urea Nitrogen 12 mg/dl (9-20); Creatinine Clearance Estimated 73 mL/min (50-200); Estimated Glomerular Filt Rate 80 ml/min (>60); GFR (African American) 97 ML/MIN (>60)
[2023-11-26] MEDS: SODIUM CHLORIDE 0.9% 10ML SYR (RAD ONLY) 10 ML IV (09:59)
[2023-11-26] MEDS: BARIUM SULFATE(READI-CAT2);450ML BOTTLE 450 ML PO (09:59)
[2023-11-26] MEDS: IOPAMIDOL-370 (76%);100ML BOTTLE 75 ML IV (09:59)
== END 2023-11-26 23:59 ==
LOC: RAD 08:00
PROVIDERS: PCP Nurse Practitioner; Visit Provider Internal Medicine
DX: D64.9 Anemia, unspecified (principal); R93.3 Abnormal findings on diagnostic imaging of other parts of digestive tract
CPT/HCPCS: 36415; 74177; 82565; 84520; Q9967

== ENCOUNTER 2024-01-29 14:45 | Outpatient (CLI) | payer MEDICARE, OTHER, SELFPAY ==
--- NOTE | 2024-01-29 15:08 | CT_ITS ---
FINAL REPORT TECHNIQUE: Axial imaging of the chest was obtained without contrast. Reformatted images were also obtained and reviewed.This study was performed with techniques to keep radiation doses as low as reasonably achievable, (ALARA). Individualized dose reduction technique using automated exposure control or adjustment of mA and/or kV according to the patient's size were employed. CLINICAL HISTORY: .NODULE COMPARISON: 11/26/2023 FINDINGS: There is no axillary adenopathy. There is no hilar or mediastinal mass or adenopathy. Heart size is normal. There is no pericardial or pleural effusion. Limited images of the upper abdomen are unremarkable. There are multiple pulmonary nodules. There is a 14 mm nodule near the left major fissure on image 15. There is an irregular right upper lobe nodule measuring 14 mm on image 15. There is an irregular soft tissue opacity at the left lung base measuring 27 mm on image 25. There is also a nodule at the lateral left lower lobe measuring 12 mm on image 24 as well as an 11 mm left lower lobe nodule on image 28. There is moderate emphysema. Other groundglass nodules and pulmonary scarring are also noted. IMPRESSION: Multiple nodules which may represent infection or neoplasm which are stable from 11/26/2023. Recommend PET/CT. Alternatively, follow-up chest CT in 3 months could also further evaluate. Reviewed, Interpreted and Dictated by Jorge Alberto Ribera III, MD Transcribed by Alia Zaldivar Authenticated and [facility]
== END 2024-01-29 23:59 | disposition home or self-care (01) ==
LOC: RAD 14:46
PROVIDERS: PCP Nurse Practitioner; Visit Provider Internal Medicine Pulmonary Disease
DX: J84.9 Interstitial pulmonary disease, unspecified (principal)
CPT/HCPCS: 71250

== ENCOUNTER 2024-02-03 10:50 | Outpatient (CLI) | payer MEDICARE, OTHER, SELFPAY ==
[2024-02-02 19:26] LABS: Creatinine,Urine Random 66 mg/dL (Not Estab.)
[2024-02-02 19:31] LABS: Microalbumin/Creatinine Ratio 12.8
[2024-02-03 19:24] LABS: Basophils # 0.1 K/mm3 (0-0.2); Basophils % 0.8 % (0.1-2.0); Eosinophils # 0.2 K/mm3 (0.0-0.4); Eosinophils % 2.1 % (0.1-12.0); Hematocrit 37.5 % (42.0-52.0); Hemoglobin 11.8 g/dL (14.1-18.0); Lymphocytes # 2.5 K/mm3 (0.7-4.5); Lymphocytes % 24.5 % (10-50); Mean Corpuscular HGB Conc 31.4 g/dL (31.8-35.4); Mean Corpuscular Volume 92.5 fl (80-94); Mean Platelet Volume 9.5 fl (7.4-10.4); Monocytes # 0.6 K/mm3 (0.1-1.0); Monocytes % 6.4 % (1.7-9.3); Neutrophils # 6.6 K/mm3 (1.8-7.8); Neutrophils % 66.2 % (37.0-80.0); Platelet Count 307 K/mm3 (142-424); Red Blood Count 4.06 M/mm3 (4.60-6.20); Red Cell Distribution Width 17.5 % (11.5-17.5)
[2024-02-03 20:02] LABS: Alanine Aminotransferase 19 U/L (12-78); Albumin Level 3.7 g/dl (3.5-5.0); Albumin/Globulin Ratio 1.5 (1.1-1.8); Alkaline Phosphatase 69 U/L (38-126); Anion Gap 12.5 mEq/L (5-15); Aspartate Amino Transferase 64 U/L (17-59); Bilirubin,Total 0.4 mg/dl (0.2-1.3); Blood Urea Nitrogen 12 mg/dl (9-20); Calcium 9.5 mg/dl (8.4-10.2); Carbon Dioxide 27 mmol/L (22.0-30.0); Chloride 104 mmol/L (98-107); Chol/HDL Ratio 5.6 (1-3.5); Cholesterol 189 mg/dl (140-200); Estimated Glomerular Filt Rate 80 ml/min (>60); GFR (African American) 97 ML/MIN (>60); Globulin 2.4 g/dL (1.3-3.2); Glucose 115 mg/dl (74-100); HDL Cholesterol 34 mg/dl (40-60); Potassium 4.5 mmoL/L (3.5-5.1); Sodium 139 mmol/L (136-145); Total Protein,Serum 6.1 g/dl (6.3-8.2); Triglycerides 227 mg/dl (30-150); VLDL Cholesterol 45 mg/dL (0-40)
[2024-02-03 20:13] LABS: Hemoglobin A1C 5.7 % (4.0-6.0)
[2024-02-03 20:14] LABS: Direct LDL Cholesterol 98.98 mg/dL (100-129)
[2024-02-03 20:34] LABS: Thyroid Stimulating Hormone 2.46 uIU/mL (0.465-4.68)
[2024-02-03 20:47] LABS: Prostate Specific Ag, Diagnost < 0.064 ng/ml (0.0-4.0)
== END 2024-02-03 23:59 | disposition home or self-care (01) ==
PROVIDERS: PCP Nurse Practitioner; Visit Provider Nurse Practitioner
DX: D64.9 Anemia, unspecified (principal); R73.01 Impaired fasting glucose; I10 Essential (primary) hypertension; E78.5 Hyperlipidemia, unspecified; Z85.46 Personal history of malignant neoplasm of prostate; Z68.31 Body mass index [BMI] 31.0-31.9, adult
CPT/HCPCS: 80053; 80061; 82043; 82570; 83036; 84153; 84443; 85025

== ENCOUNTER 2024-02-23 14:06 | Outpatient (CLI) | payer MEDICARE, OTHER, SELFPAY ==
[2024-02-23 18:47] LABS: Basophils # 0.1 K/mm3 (0-0.2); Basophils % 0.7 % (0.1-2.0); Eosinophils # 0.2 K/mm3 (0.0-0.4); Eosinophils % 2.7 % (0.1-12.0); Hemoglobin 11.7 g/dL (14.1-18.0); Lymphocytes # 2.6 K/mm3 (0.7-4.5); Lymphocytes % 31.8 % (10-50); Mean Corpuscular HGB Conc 31.6 g/dL (31.8-35.4); Mean Platelet Volume 9.5 fl (7.4-10.4); Monocytes # 0.5 K/mm3 (0.1-1.0); Monocytes % 6.3 % (1.7-9.3); Neutrophils # 4.9 K/mm3 (1.8-7.8); Neutrophils % 58.6 % (37.0-80.0); Platelet Count 315 K/mm3 (142-424); Red Blood Count 4.02 M/mm3 (4.60-6.20); Red Cell Distribution Width 16.2 % (11.5-17.5); White Blood Count 8.3 K/mm3 (4.8-10.8)
[2024-02-23 19:45] LABS: Iron 71 ug/dL (49-181)
[2024-02-23 19:56] LABS: Total Iron Binding Capacity 319 ug/dL (261-462)
[2024-02-23 20:38] LABS: Vitamin B12 757 pg/mL (239-931)
== END 2024-02-23 23:59 | disposition home or self-care (01) ==
LOC: LAB.DROPOF 02-24 14:07
PROVIDERS: PCP Nurse Practitioner; Visit Provider Nurse Practitioner
DX: D64.9 Anemia, unspecified (principal); E53.8 Deficiency of other specified B group vitamins
CPT/HCPCS: 82607; 83540; 83550; 85025

== ENCOUNTER 2024-03-08 11:41 | Outpatient (CLI) | payer MEDICARE, OTHER, SELFPAY | END 2024-03-08 23:59 | disposition home or self-care (01) | LOC: LAB.DROPOF 03-09 11:41 | PROVIDERS: PCP Nurse Practitioner; Visit Provider Nurse Practitioner | DX: R10.9 Unspecified abdominal pain (principal) | CPT/HCPCS: 87086 ==

== ENCOUNTER 2024-03-18 11:40 | Outpatient (CLI) | payer MEDICARE, OTHER, SELFPAY ==
--- NOTE | 2024-03-18 11:47 | XR_ITS ---
FINAL REPORT CLINICAL HISTORY: pain -- fell on friday FINDINGS: LEFT FOOT Three views of the left foot demonstrate an acute, nondisplaced oblique fracture of the base of the fifth metatarsal. Hypertrophic changes are seen at the first metatarsophalangeal joint. There is a moderate plantar spur. There is mild soft tissue edema. IMPRESSION: Acute fracture at the base of the fifth metatarsal. Reviewed, Interpreted and Dictated by Aidan Alicea MD Transcribed by Radha Watts Authenticated and [facility]
--- NOTE | 2024-03-18 11:47 | XR_ITS ---
FINAL REPORT CLINICAL HISTORY: ankle pain -- fell and rolled ankle friday -- diff to get lat ankle FINDINGS: LEFT ANKLE Three views demonstrate diffuse soft tissue edema. The mortise is intact. There is an oblique nondisplaced fracture at the base of the fifth metatarsal. No other fracture is identified. A plantar calcaneal spur is noted. IMPRESSION: Diffuse soft tissue edema. Fracture at the base of the fifth metatarsal. Reviewed, Interpreted and Dictated by Aidan Alicea MD Transcribed by Radha Watts Authenticated and [facility]
[2024-03-18 12:23] LABS: Blood Urea Nitrogen 11 mg/dl (9-20); Estimated Glomerular Filt Rate 80 ml/min (>60); GFR (African American) 97 ML/MIN (>60)
== END 2024-03-18 23:59 | disposition home or self-care (01) ==
LOC: RAD 11:43
PROVIDERS: PCP Nurse Practitioner; Visit Provider Surgery
DX: R10.31 Right lower quadrant pain; M79.672 Pain in left foot; M25.572 Pain in left ankle and joints of left foot
CPT/HCPCS: 36415; 73610; 73630; 82565; 84520

== ENCOUNTER 2024-04-05 08:06 | Outpatient (CLI) | payer MEDICARE, OTHER, SELFPAY ==
--- NOTE | 2024-04-05 08:06 | CT_ITS ---
FINAL REPORT TECHNIQUE: Axial images through the abdomen and pelvis after administration of oral and intravenous contrast were performed. This study was performed with techniques to keep radiation doses as low as reasonably achievable, (ALARA). Individualized dose reduction techniques using automated exposure control or adjustment of mA and/or kV according to the patient's size were employed. CLINICAL HISTORY: right lower quad COMPARISON: 11/26/2023 FINDINGS: Abdomen: There are lesions present in the left lower lobe noted on the prior CT of November 2023, the largest of which measures 26 mm in size, previously 28 mm in size. The groundglass opacities in the lung base have resolved since the prior CT of November. The gallbladder is unremarkable. There are hypodense liver lesions again noted, the largest of which measures 18 mm in the dome of the liver, stable. There are no new hepatic lesions present. The spleen, pancreas and adrenal glands are unremarkable. Kidneys show no mass or obstruction, with a stable small left renal cyst. A small hiatal hernia is present. A small umbilical hernia containing fat is present.. No bowel obstruction or fluid collection is seen. Pelvis: The appendix is not visualized. Advanced sigmoid diverticulosis is present. No fluid collection or adenopathy is seen. IMPRESSION: Hypodense liver lesions are again noted, the largest measuring 18 mm in size, stable, favor benign. No new or enlarging liver lesions are identified, when compared to the prior exam of November. Lesion in the left lower lobe of the lung, stable in size. The ground glass opacities noted on the prior CT have resolved. Reviewed, Interpreted and Dictated by Vivienne Roach MD Transcribed by Kristi Holley Authenticated and . [facility]
--- NOTE | 2024-04-05 08:38 | XR_ITS ---
FINAL REPORT CLINICAL HISTORY: Lt foot pain, broke x 3wks ago. COMPARISON: 03/18/2024 FINDINGS: LEFT FOOT Three views of the left foot demonstrate a transverse fracture at the base of the fifth metatarsal with up to 3.5 mm of distraction, previously this measured 2 mm. There are moderate degenerative changes of the first MTP joint. IMPRESSION: Mild, further displacement of transverse fracture at the base of the fifth metatarsal. No evidence of periosteal reaction or callus formation. Reviewed, Interpreted and Dictated by Vivienne Roach MD Transcribed by Alia Zaldivar Authenticated and [facility]
[2024-04-05] MEDS: IOPAMIDOL-370 (76%);100ML BOTTLE 75 ML IV (08:45)
[2024-04-05] MEDS: BARIUM SULFATE(READI-CAT2);450ML BOTTLE 450 ML PO (08:45)
[2024-04-05] MEDS: SODIUM CHLORIDE 0.9% 10ML SYR (RAD ONLY) 10 ML IV (08:45)
== END 2024-04-05 23:59 | disposition home or self-care (01) ==
LOC: RAD 08:06
PROVIDERS: PCP Nurse Practitioner; Visit Provider Surgery
DX: R10.32 Left lower quadrant pain (principal); M84.375A Stress fracture, left foot, initial encounter for fracture
CPT/HCPCS: 73630; 74177; Q9967

== ENCOUNTER 2024-04-27 10:24 | Outpatient (CLI) | payer MEDICARE, OTHER, SELFPAY ==
--- NOTE | 2024-04-27 10:29 | XR_ITS ---
FINAL REPORT CLINICAL HISTORY: Lt Foot Pain COMPARISON: None FINDINGS: LEFT FOOT Three views of the left foot demonstrate a fracture of the proximal aspect of the 5th metatarsal with 5 mm of distraction. Mild hallux valgus deformity is noted. There is mild degenerative change. There is a small plantar calcaneal spur. The soft tissues are unremarkable. IMPRESSION: Fifth metatarsal fracture as above. Reviewed, Interpreted and Dictated by Jorge Alberto Ribera III, MD Transcribed by Patsy Love Authenticated and [facility]
--- NOTE | 2024-04-27 10:29 | XR_ITS ---
FINAL REPORT CLINICAL HISTORY: Lt Ankle Pain COMPARISON: None FINDINGS: LEFT ANKLE Three views demonstrate no acute fracture or dislocation. The visualized joint spaces are normally aligned. A plantar calcaneal spur is noted. There is soft tissue swelling. IMPRESSION: Soft tissue swelling without acute bony abnormality. Reviewed, Interpreted and Dictated by Jorge Alberto Ribera III, MD Transcribed by Patsy Love Authenticated and . [facility]
== END 2024-04-27 23:59 | disposition home or self-care (01) ==
LOC: RAD 10:26
PROVIDERS: PCP Nurse Practitioner; Visit Provider Orthopaedic Surgery
DX: M84.375A Stress fracture, left foot, initial encounter for fracture (principal); M25.572 Pain in left ankle and joints of left foot
CPT/HCPCS: 73610; 73630

== ENCOUNTER 2024-08-03 10:30 | Outpatient (CLI) | payer MEDICARE, OTHER, SELFPAY ==
[2024-08-03 18:53] LABS: Basophils # 0.1 K/mm3 (0-0.2); Basophils % 0.6 % (0.1-2.0); Eosinophils # 0.2 K/mm3 (0.0-0.4); Eosinophils % 2.9 % (0.1-12.0); Hematocrit 34.2 % (42.0-52.0); Hemoglobin 12.5 g/dL (14.1-18.0); Lymphocytes # 2.2 K/mm3 (0.7-4.5); Lymphocytes % 26.6 % (10-50); Mean Corpuscular HGB Conc 36.4 g/dL (31.8-35.4); Mean Corpuscular Volume 90.6 fl (80-94); Mean Platelet Volume 8.7 fl (7.4-10.4); Monocytes # 0.5 K/mm3 (0.1-1.0); Monocytes % 5.7 % (1.7-9.3); Neutrophils # 5.3 K/mm3 (1.8-7.8); Neutrophils % 64.2 % (37.0-80.0); Platelet Count 260 K/mm3 (142-424); Red Blood Count 3.77 M/mm3 (4.60-6.20); Red Cell Distribution Width 14.2 % (11.5-17.5); White Blood Count 8.3 K/mm3 (4.8-10.8)
[2024-08-03 19:21] LABS: Albumin Level 3.9 g/dl (3.5-5.0); Chloride 103 mmol/L (98-107); Potassium 4.3 mmoL/L (3.5-5.1); Sodium 133 mmol/L (136-145)
[2024-08-03 19:24] LABS: Alanine Aminotransferase 15 U/L (12-78); Albumin/Globulin Ratio 1.5 (1.1-1.8); Alkaline Phosphatase 62 U/L (38-126); Anion Gap 9.3 mEq/L (5-15); Aspartate Amino Transferase 22 U/L (17-59); Bilirubin,Total 0.5 mg/dl (0.2-1.3); Blood Urea Nitrogen 13 mg/dl (9-20); Calcium 8.9 mg/dl (8.4-10.2); Carbon Dioxide 25 mmol/L (22.0-30.0); Cholesterol 205 mg/dl (140-200); Estimated Glomerular Filt Rate 80 ml/min (>60); GFR (African American) 97 ML/MIN (>60); Globulin 2.6 g/dL (1.3-3.2); Glucose 101 mg/dl (74-100); Iron 95 ug/dL (49-181); Total Protein,Serum 6.5 g/dl (6.3-8.2); Triglycerides 197 mg/dl (30-150); VLDL Cholesterol 39 mg/dL (0-40)
[2024-08-03 19:25] LABS: Chol/HDL Ratio 5.3 (1-3.5); HDL Cholesterol 39 mg/dl (40-60)
[2024-08-03 19:43] LABS: Total Iron Binding Capacity 297 ug/dL (261-462)
[2024-08-03 19:46] LABS: Direct LDL Cholesterol 115.21 mg/dL (100-129)
[2024-08-03 20:01] LABS: Prostate Specific Ag, Diagnost < 0.064 ng/ml (0.0-4.0)
[2024-08-03 20:15] LABS: Vitamin B12 844 pg/mL (239-931)
== END 2024-08-03 23:59 | disposition home or self-care (01) ==
LOC: LAB.DROPOF 08-05 11:42
PROVIDERS: PCP Nurse Practitioner; Visit Provider Nurse Practitioner
DX: D64.9 Anemia, unspecified (principal); E53.8 Deficiency of other specified B group vitamins; Z85.46 Personal history of malignant neoplasm of prostate; I10 Essential (primary) hypertension; Z68.31 Body mass index [BMI] 31.0-31.9, adult; Z87.891 Personal history of nicotine dependence; E66.9 Obesity, unspecified
CPT/HCPCS: 80053; 80061; 82607; 83540; 83550; 84153; 85025

== ENCOUNTER 2025-02-01 10:50 | Outpatient (CLI) | payer MEDICARE, OTHER, SELFPAY ==
[2025-02-01 19:05] LABS: Hematocrit 35.8 % (42.0-52.0); Hemoglobin 11.5 g/dL (14.1-18.0); Mean Corpuscular HGB Conc 32.1 g/dL (31.8-35.4); Mean Corpuscular Hemoglobin 29.7 pg (27.0-31.2); Mean Corpuscular Volume 92.5 fl (80-94); Mean Platelet Volume 9.8 fl (7.4-10.4); Neutrophils % 62.3 % (37.0-80.0); Platelet Count 254 K/mm3 (142-424); Red Blood Count 3.87 M/mm3 (4.60-6.20); Red Cell Distribution Width 13.4 % (11.5-17.5); Red Cell Distribution Width-SD 45.4 fL; White Blood Count 8.3 K/mm3 (4.8-10.8)
[2025-02-01 19:06] LABS: Basophils % 0.5 % (0.1-2.0); Eosinophils # 0.2 K/mm3 (0.0-0.4); Eosinophils % 2.8 % (0.1-12.0); Lymphocytes # 2.2 K/mm3 (0.7-4.5); Lymphocytes % 26.7 % (10-50); Monocytes # 0.6 K/mm3 (0.1-1.0); Monocytes % 7.1 % (1.7-9.3); Neutrophils # 5.2 K/mm3 (1.8-7.8); Nucleated Red Blood Cells # 0 10^3/uL; Nucleated Red Blood Cells % 0 %
[2025-02-01 19:25] LABS: Microalbumin/Creatinine Ratio 7.9
[2025-02-01 19:26] LABS: Alanine Aminotransferase 16 U/L (12-78); Albumin Level 3.6 g/dl (3.5-5.0); Albumin/Globulin Ratio 1.3 (1.1-1.8); Alkaline Phosphatase 65 U/L (38-126); Anion Gap 11.5 mEq/L (5-15); Aspartate Amino Transferase 23 U/L (17-59); Bilirubin,Total 0.4 mg/dl (0.2-1.3); Blood Urea Nitrogen 11 mg/dl (9-20); Calcium 8.8 mg/dl (8.4-10.2); Carbon Dioxide 27 mmol/L (22.0-30.0); Chloride 100 mmol/L (98-107); Chol/HDL Ratio 4.5 (1-3.5); Cholesterol 186 mg/dl (140-200); Estimated Glomerular Filt Rate 92 ml/min (>60); GFR (African American) 111 ML/MIN (>60); Globulin 2.8 g/dL (1.3-3.2); Glucose 105 mg/dl (74-100); HDL Cholesterol 41 mg/dl (40-60); Potassium 4.5 mmoL/L (3.5-5.1); Sodium 134 mmol/L (136-145); Total Protein,Serum 6.4 g/dl (6.3-8.2); Triglycerides 154 mg/dl (30-150); VLDL Cholesterol 31 mg/dL (0-40)
[2025-02-01 20:09] LABS: Prostate Specific Ag, Diagnost < 0.064 ng/ml (0.0-4.0)
[2025-02-01 20:24] LABS: Creatinine,Urine Random 137 mg/dL (Not Estab.)
== END 2025-02-01 23:59 | disposition home or self-care (01) ==
LOC: LAB.DROPOF 02-02 11:21
PROVIDERS: PCP Nurse Practitioner; Visit Provider Nurse Practitioner
DX: D64.9 Anemia, unspecified (principal); I10 Essential (primary) hypertension; E78.5 Hyperlipidemia, unspecified; J44.9 Chronic obstructive pulmonary disease, unspecified; Z85.46 Personal history of malignant neoplasm of prostate; Z87.891 Personal history of nicotine dependence
CPT/HCPCS: 80053; 80061; 82043; 82570; 84153; 85025

== ENCOUNTER 2025-04-21 14:42 | Outpatient (CLI) | payer MEDICARE, OTHER, SELFPAY ==
--- NOTE | 2025-04-21 14:43 | CT_ITS ---
PROCEDURE INFORMATION: Exam: CT Chest Without Contrast; Diagnostic Exam date and time: 04/21/2025 2:43 PM Age: 84 years old Clinical indication: Abnormal findings; Lung mass or nodule; Single or solitary nodule; Additional info: Lung nodule on 04/05/24 CT abd scan TECHNIQUE: Imaging protocol: Diagnostic computed tomography of the chest without contrast. Radiation optimization: All CT scans at this facility use at least one of these dose optimization techniques: automated exposure control; mA and/or kV adjustment per patient size (includes targeted exams where dose is matched to clinical indication); or iterative reconstruction. COMPARISON: CT HIGH RESOLUTION CHEST 01/29/2024 3:15 PM FINDINGS: Lungs: The nodule in the posterior aspect of the left upper lobe now measures 17.5 mm. (series 2, image 36. It measured 15.1 mm in January 2024. Ill-defined opacity in the right middle lobe measures 18.2 mm and is essentially stable series 2, image 38. Slightly spiculated opacity in the left lower lobe previously measured 24.7 mm. Now measures 26.9 mm (series 2, image 61.) Impression. Pleural-based nodule in the left lower lobe previously measured 11.2 mm. Now measures 13.5 mm ( series 2, image 61.). Pleural spaces: Unremarkable. No pneumothorax. No pleural effusion. Heart: There is calcification of the aortic valve annulus. There is calcification of the mitral valve annulus. Coronary arteries: Coronary artery calcifications may indicate coronary artery disease. Lymph nodes: Unremarkable. No enlarged lymph nodes. Vasculature: Unremarkable. No aortic aneurysm. Diaphragm: Small hiatal hernia Gallbladder and biliary ducts: The gallbladder is unremarkable Kidneys: 2 cm Simple cyst left kidney . No follow-up imaging recommended . Bones/joints: Unremarkable. No acute fracture. Soft tissues: Unremarkable. IMPRESSION: 1. The nodule in the posterior aspect of the left upper lobe now measures 17.5 mm. (series 2, image 36.) It measured 15.1 mm in January 2024. 2. Ill-defined opacity in the right middle lobe measures 18.2 mm and is essentially stable series 2, image 38. 3. Pleural-based nodule in the left lower lobe previously measured 11.2 mm. Now measures 13.5 mm ( series 2, image 61.). Consider non-emergent PET/CT or tissue sampling.(Reference: Griselda) References: MacMahon H, et al. Guidelines for Management of Incidental Pulmonary Nodules Detected on CT Images: From the Fleischner Society 2017. Radiology. 2017;284(1):228-243. COMMENTS: Consistent with the [employer]'s Incidental Findings Committee white paper (J Am Cecil Radiol 2018): Any incidental renal lesion less than 1 cm or classified as too small to characterize, or any incidental cystic renal lesion characterized as simple-appearing, is likely benign. No follow-up imaging is recommended for these lesions per consensus recommendations based on imaging criteria.
--- OUTSIDE RECORDS SUMMARY | 2025-04-21 14:44 | XMS_ITS | Clinical Summary ---
Author Organization [facility] U S Address [address] [place] [address] Phone Care Team Providers Care Vice President Payer Name Role Phone Unavailable Primary Care Provider Unavailabl e Allergies No known active allergies Social History Tobacco Use Types Packs/Day Years Used Date Smoking Tobacco: Never Assessed Sex and Gender Information Value Date Recorded Sex Assigned at Not on file Legal Sex Male 5:08 AM EDT Gender Identity Not on file Sexual Orientation Not on file Plan of Treatment Health Maintenance Due Date Last Done Comments Annual Wellness Exam 1943 DTaP/TDaP/Td (1 - Tdap) 1957 Pneumococcal Vaccine 50+ (1 of 1 - PCV) 1988 Zoster (1 of 2) 1988 RSV or 60+ (1 - 1-d ose 75+ series) 2013 COVID-19 Vaccine (2023-2 5 season) 2024 Influenza Vaccine (Season Ended) 2025 Hepatitis B Vaccine Aged Out No longe r eligible based on patient's age to complete this topic Meningococcal B Vaccine Aged Out No l onger eligible based on patient's age to complete this topic Insurance [facility] CHOICE PLUS [place]ICARE [place] PART [place] B [place] A [place] B
--- OUTSIDE RECORDS SUMMARY | 2025-04-21 14:44 | XMS_ITS ---
Author Organization [facility] Care Team Providers Care Chief Of Staff Name Role Phone Douglas Aury Iversno Unavailable Unavailable Adryan Lewis Unavailable Unavailable Allergies and adverse reactions Code CodeSystem Substance Reaction Severity StartDate Concern Status 399566774 SNOMED CT Statins Unknown 09/18/2015 active 6918 RXNORM Metoprolol Unknown 09/18/2015 active 37952 RXNORM Azithromycin Unknown 09/18/2015 active Care Team Name Role Address Phone Organization Dates Debbie PCP [address], [place], [address], [place] (Office): : [facility] 09/18/2015 - 10/09/2015 Aury Cole [address] , [place], [address], [place] (Office): : [facility] 09/18/2015 - 10/09/2015 Immunizations Immunization Status Vaccine Details Vaccine Code CodeSystem Date Notes Influenza cancelled Influenza, high-dose, split virus, trivalent, injectable, preservative free 135 CVX created date: 09/18/2015 consent date: 09/18/2015 Pneumovax Dose 1 cancelled cre ated date: 09/18/2015 consent date: 09/18/2015 TB 2 Step Mantoux Skin Test completed tuberculin skin test; unspecified formulation Step 2 of Multi-step with next step required 98 CVX created date: 10/08/2015 administere d date: 09/26/2015 Read on 5 by tyler TB 2 Step Mantoux Skin Test completed tuberculin skin test; unspecified formulation Step 1 of Multi-step with next step required 98 CVX created date: 09/18/2015 consent date: 09/18/2015 administere d date: 09/19/2015 Read on 5 by veena Mental Status Section Date Assessment Total Score Description 10/09/2015 BIMS 15 cognitively int act PHQ-9 03 minimal depress ion 09/30/2015 BIMS 15 cognitively int act PHQ-9 03 minimal depress ion Problems Problem # Description Date of onset Resolved Date Code CodeSystem Concern Status 1 ABSCESS OF LIVER 09/18/[address] a ctive 2 ACUTE KIDNEY FAILURE, UNSPECIFIED 09/18/[address] active 3 ACUTE PANCREATITIS, UNSPECIFIED 09/18/[address] active 4 ARTHROPATHY, UNSPECIFIED 09/18/[address] active 5 CARCINOMA IN SITU OF PROSTATE 09/18/[address] active 6 CHOLANGITIS 09/18/[address] active 7 ESSENTIAL (PRIMARY) HYPERTENSION 09/18/[address] active 8 GASTRO-ESOPHAGEAL REFLUX DISEASE WITHOUT ESOPHAGITIS 09/18/[address] active 9 HEMANGIOMA OF INTRA-ABDOMINAL STRUCTURES 09/18/[address] active 10 HYPERLIPIDEMIA, UNSPECIFIED 09/18/[address] active 11 KLEBSIELLA PNEUMONIAE [K. 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 09/18/[address] active 16 UNSPECIFIED PROTEIN-CALORIE MALNUTRITION 09/18/[address] active 17 WEAKNESS 09/18/[address] active Reason for Referral No Reasons for Referral Entered Social History Social History Observation Description Start Date End Date Code Code System Current Smoking Status Tobacco smoking consumption unknown 328030593 SNOMED CT Sex Assigned At Male 1940 35701-0 [facility] Gender Identity Vital Signs Code Code System Vitals Name Values and Units Timing Information 60041-6 [facility] Weight Inalw=329.1 Units=Lbs 2339-0 [facility] Blood Sugar Value=75.0 Units=mg/dL 10/09/2015 9279-1 [facility] Respiratory Rate Value=20.0 Units=/m in 10/08/2015 8462-4 [facility] Blood Pressure-Diastolic Value=68 Un its=mmHg 10/08/2015 8480-6 [facility] Blood Pressure-Systolic Qfcwe=222 Un its=mmHg 10/08/2015 8310-5 [facility] Body Temperature Value=98.2 Units= F 10/08/2015 8867-4 [facility] Heart rate Dqpne=124.0 Units=/min 10/08/2015 71779-8 [facility] Pain Level Value=0.0 10/08/2015 83328-5 [facility] O2 % BldC Oximetry Value=93.0 Units= % 10/03/2015 8302-2 [facility] Height Value=68.0 Units=Inches 09/19/2015
--- OUTSIDE RECORDS SUMMARY | 2025-04-21 14:45 | XMS_ITS | Data Portability ---
Author Organization [place] - [place] [facility] and [facility] Address [address] [place] [address] Care Team Providers Care Yarn Texturing Machine Operator Name Role Phone GRZEGORZMICHAEL CATES Primary Care Provider Assessment No assessment recorded. Plan of Treatment Reminders Order Date Submit Date Provider Last Modified By Organization Details Last Modified Time Details Appointments OV EST 15 2024 01:30P M Wilbur Arenas Jr, MD Not available Not available Not available Lab None recorded. Referral None recorded. Procedures None recorded. Surgeries None recorded. Imaging None recorded. Medication Orders Eligard 45 mg (6 month) subcutane ous syringe 2024 025 [place] [address] [facility] [address] [facility] [place], [address], 11/10/2024 16:52:34 Eligard 45 mg (6 month) subcutane ous syringe 2023 024 [place] [address] [facility], [address], [place], [address], 04/14/2024 13:57:50 Eligard 45 mg (6 month) subcutane ous syringe 2022 023 [place] [address] [facility], [address], [place], [address], 10/01/2023 16:41:34 Eligard 45 mg (6 month) subcutane ous syringe 2022 023 [email or web address] [facility], [address], [facility] [place], [address], 03/12/2023 15:13:26 Eligard 45 mg (6 month) subcutane ous syringe 2021 022 [email or web address] [facility] [address] [facility] [place], [address], 09/09/2022 16:44:52 Patient TargetsNo targets recorded. Patient InstructionsNo instructions recorded. Reason for Referral None Reported. Problems Name Problem SNOMED Code Status Onset Date Resolution Date Notes Provider Name and Address Organization Details Recorded Time Hypertensive disorder 51125856 Active 2021 Nora phillips PIETER FARIHANT [facility] [place] 2 13:05:40 Hypercholeste rolemia 76599894 Active 2021 Nora phillips PIETER - LPNT [facility] [place] 2 13:05:56 Carcinoma of prostate 212901112 Active 2021 Nora phillips PIETER Jose LPNT [facility] [place] 2 13:06:48 Problem Notes None recorded. Procedures Surgical History Date Name Laterality Status Provider Name and Address Organization Details Recorded Time Appendectomy completed Nora Archibald PIETER Jose LPNT [facility] [place] 09/09/2022 13:08:19 Cataract Surgery completed Sierrakonrad Arcihbald PIETER Jose LPNT [facility] [place] 09/09/2022 13:08:46 Imaging Results None recorded. Procedure Notes None recorded. Medical Equipment None Reported. Allergies No known drug allergies Medications Name Sig Start Date Stop Date Status Note LastModified by Organization Details LastModified Time cetirizine 10 mg tablet TAKE 1 TABLET BY MOUTH ONCE DAILY. active Not Available Not Available No t Available lisinopril 20 mg-hydrochlo rothiazide 12.5 mg tablet TAKE 1 TABLET BY MOUTH ONCE DAILY. active Not Available Not Available No t Available lisinopril 20 mg tablet TAKE 1 TABLET BY MOUTH ONCE DAILY FOR BLOOD PRESSURE. active Not Available Not Available No t Available prednisone 20 mg tablet TAKE 1 TABLET BY MOUTH TWICE DAILY FOR 5 DAYS, THEN ONCE DAILY FOR 5 DAYS active Not Available Not Available N ot Available amlodipine 2.5 mg tablet TAKE 1 TABLET BY MOUTH ONCE DAILY. active Not Available Not Available No t Available ciprofloxaci n 500 mg tablet TAKE 1 TABLET BY MOUTH TWICE DAILY FOR 7 DAYS. active Not Available Not Available No t Available lisinopril 30 mg tablet TAKE 1 TABLET BY MOUTH ONCE DAILY. active Not Available Not Available No t Available doxazosin 4 mg tablet TAKE 1 TABLET BY MOUTH AT BEDTIME FOR BLADDER. active Not Available Not Available No t Available montelukast 10 mg tablet TAKE 1 TABLET BY MOUTH ONCE DAILY. active Not Available Not Available No t Available furosemide 20 mg tablet TAKE 1 TABLET BY MOUTH ONCE DAILY. active Not Available Not Available No t Available levofloxacin 500 mg tablet TAKE ONE TABLET BY MOUTH EVERY 24 HOURS active Not Available Not Available No t Available albuterol sulfate HFA 90 mcg/actuatio n aerosol inhaler INHALE 2 PUFFS INTO THE LUNGS EVERY 6 HOURS NEEDED FOR SHORTNESS OF BREATH OR WHEEZING. active Not Available Not Available No t Available cefdinir 300 mg capsule TAKE 1 CAPSULE BY MOUTH TWICE A DAY active Not Available Not Available No t Available Eligard 45 mg (6 month) subcutaneous syringe Inject 1 syringe by subcutaneou s route. 2024 active Not Available Not Available Not Avai estiven Sheth Ellipta 100 mcg-62.5 mcg-25 mcg powder for inhalation INHALE 1 PUFF INTO THE LUNGS ONCE DAILY active Not Available Not Available N ot Available Breztri Aerosphere 160 mcg-9mcg-4.8 mcg/actuatio n HFA aerosol inhaler INHALE TWO PUFFS BY MOUTH TWICE DAILY active Not Available Not Available No t Available Clenpiq 10 mg-3.5 gram-12 gram/175 mL oral solution TAKE FIRST DOSE (175 ML) 5:00 TO 9:00 P.M. THE EVENING BEFORE COLONOSCOPY . TAKE SECOND DOSE, NEXT DAY APPROX. 5 HOURS BEFORE ARRIVAL FOR COLONOSCOPY . active Not Available Not Available No t Available Vitals Date Recorded Body height Body mass index (BMI) Body weight Body temperature Provider Name and Address Organization Details Last Updated DateTime 11/10/2024 172.72 cm 30.4 kg/m2 38597.47 g 98.1 [degF] Barbara Brown [facility] [place] 11/10/2024 12:59:32 Date Recorded Body height Body mass index (BMI) Body weight Body temperature Provider Name and Address Organization Details Last Updated DateTime 03/12/2023 172.72 cm 30.4 kg/m2 30820.47 g 97.7 [degF] Zacarias Jacob [facility] [place] 03/12/2023 12:59:16 Date Recorded Body height Body mass index (BMI) Body weight Body temperature Provider Name and Address Organization Details Last Updated DateTime 04/14/2024 172.72 cm 30.4 kg/m2 79418.47 g 98.1 [degF] Zacarias Jacob [facility] [place] 04/14/2024 13:05:26 Date Recorded Body height Body mass index (BMI) Body weight Body temperature Systolic And Diastolic Provider Name and Address Organization Details Last Updated DateTime 09/09/2022 172.72 cm 30.4 kg/m2 24291.4 7 g 97.7 [degF] 125/80 mm[Hg] Nora Archibald [facility] [place] 13:05:06 Date Recorded Body height Body mass index (BMI) Body weight Body temperature Provider Name and Address Organization Details Last Updated DateTime 10/01/2023 172.72 cm 30.4 kg/m2 81020.47 g 98 [degF] Zacarias Jacob [facility] [place] 10/01/2023 13:08:18 Social History None recorded. Functional Status Question Answer Note LastModified by Organization D etails LastModified Time What is your level of alcohol consumption? None [email or web address] Information not available 09/09/2022 Mental Status None recorded. Family History Relationship Description Onset Age of this Age Resolved Age Notes LastModified by Organization Details LastModified Time Paternal Grandmother Carcinoma of prostate [email or web address] Not available 09/09 13:07:21 Brother Malignant neoplastic disease Not available 09/09 13:07:45 Father Malignant neoplastic disease [email or web address] Not available 09/09 13:07:45 Medical History No medical history recorded. Past Encounters Encounter ID Performer Location Encounter Start Date Encounter Closed Date Diagnosis/Indication Diagnosis SNOMED-CT Code Diagnosis ICD10 Code Diagnosis Note [id number] Wilbur Arenas Jr, MD [facility] [address] [place] [address] 09/09/2022 12:55:27 09/09/2022 13:44:45 Carcinoma of prostate 560945331 C61 patient with history of prostate cancer status post initiation external beam radiation and hormonal therapy in 2014. His cancer was high-grade at diagnosis. His PSAs have responded well have been 0 for several years. His Eligard injection was given today. His most recent PSA was 0 1 month ago. Seen back in 6 months. Benign pro static hyperplasia with outflow obstruction 886468475 N40.1 patient voiding well and to continue the doxazosin 4 mg a day. [id number] Wilbur Arenas Jr, MD [facility] [address] [address] 03/12/2023 12:50:31 03/12/2023 13:27:28 Carcinoma of prostate 378734213 C61 patient with history of prostate cancer status post initiation external beam radiation and hormonal therapy in 2014. His cancer was high-grade at diagnosis. His PSAs have responded well have been 0 for several years. His Eligard injection was given today. His most recent PSA was 0 1 month ago. We will see back in 6 months. Benign pro static hyperplasia with outflow obstruction 966496144 N40.1 patient voiding well and to continue the doxazosin 4 mg a day. [id number] Wilbur Arenas Jr, MD [facility] [address] [address] 10/01/2023 12:56:59 10/01/2023 13:25:23 Carcinoma of prostate 963956381 C61 patient with history of prostate cancer status post initiation external beam radiation and hormonal therapy in 2014. His cancer was high-grade at diagnosis. His PSAs have responded well have been 0 for several years. His Eligard injection was given today. His most recent PSA was 0 four month ago. We will see back in 6 months. Nocturia 763641250 R35.1 patient with complaints of nocturia 3-4 times. Drinks fluids right up to bedtime due to constipati on. We discussed taking a stool softener nightly instead drinking all the fluid. Benign pro static hyperplasia with outflow obstruction 556700462 N40.1 patient voiding well and to continue the doxazosin 4 mg a day. [id number] Wilbur Arenas Jr, MD [facility] [address] [address] 04/14/2024 13:00:59 04/14/2024 13:21:39 Malignant neoplasm of prostate 283327247 C61 Patient with history of prostate cancer. He was diagnosed in 2014 and began hormonal therapy at that time and was treated with external beam radiation. His PSAs have responded well and continued to be 0. His Eligard injection was given today. Lower urin live tract symptoms 637262943 R39.9 patient continues on doxazosin 4 mg. Nocturia 287945991 R35.1 patient with complaints of nocturia 3-4 times. Drinks fluids right up to bedtime due to constipati on. We discussed taking a stool softener nightly instead drinking all the fluid. [id number] Wilbur Arenas Jr, MD [facility] [address] [address] 11/10/2024 12:40:38 11/10/2024 13:21:31 Malignant neoplasm of prostate 228639524 C61 Patient with history of prostate cancer. He was diagnosed in 2014 and began hormonal therapy at that time and was treated with external beam radiation. His PSAs have responded well and continued to be 0. His Eligard injection was given today. Lower urin live tract symptoms 413776062 R39.9 patient continues on doxazosin 4 mg. Health Concerns Section Related Observation LastModified by Organization Detai ls LastModified Time None Recorded Concern Status LastModified by Organization Details LastModified Time None Recorded Advance Directives Directive None Recorded Payers Insurance Date Sequence Insurance Name Policy Number Policy Ceron Covered Member ID Ceron Member ID Guarantor Name 10/26/2024 1 [place]ICARE[place] Jayme Thurman [id number] Jayme Thurman 11/08/2024 2 [facility] (MEDICARE SUPPLEMENT) Jayme Thurman [id number] Jayme Thurman Notes Date Note Type Note Provider Name and Address Organization Details Recorded Time 09/09/2022 text/html Patient is an 81 year white male with a history high-grade prostate cancer. He underwent external beam radiation and hormonal therapy in 2014. His PSA has responded well and have been 0 since treatment was initiated. He was last seen in February 2022. most recent PSA was 0 as of 1 month ago. He is voiding well continues on doxazosin 4 mg. Wilbur Arenas Jr, MD [address] [place] [address], [address], [address], [facility] 09/09/2022 17:02:43 03/12/2023 text/html Patient is a 82-year-old white male with a history of high-grade prostate cancer. Underwent external beam radiation and hormonal therapy in 2014. His PSAs have responded well and have been 0 since treatment was initiated. His last PSA was 1 week ago and continues at 0. Patient denies any voiding symptoms or bony pains. He continues on doxazosin for a history of BPH. Wilbur Arenas Jr, MD [address], [address], [place], [address], [facility] [place] 03/12/2023 13:33:55 10/01/2023 text/html patient is an 82-year-old white male with a history of high-grade prostate cancer. He has been treated with external beam radiation and hormonal therapy since 2014. His PSAs have responded well in his last 1 was 0 in March 2023. Returns Today in routine follow-up.He gives new complaint today of nocturia 3-4 times. He states he needs to drink fluids right up to bedtime to prevent some constipation. He continues on doxazosin 4 mg for BPH symptoms. Wilbur Arenas Jr, MD [address], [address], [place], [address], [facility] [place] 10/01/2023 15:19:39 04/14/2024 text/html Patient is an 83-year-old white male with a history of prostate cancer that was high-grade at diagnosis in 2014. He was started on hormonal therapy at that time and also treated with external beam radiation. His PSAs has responded well with the last one being 0 in January 2024. Returns today for his Eligard injection. He is tolerating it well.Patient with history of lower urinary tract symptoms and continues on doxazosin 4 mg. He continues to have some nocturia but drinks right up to bedtime to prevent constipation.He states his is dealing with treatment for lung cancer at this time. Wilbur Arenas Jr, MD [address] [place] [address], [address], [place], [address], [facility] [place] 04/14/2024 13:25:38 11/10/2024 text/html Patient is an 83-year-old white male with history of prostate cancer that was high-grade at diagnosis in 2014. He was started on hormonal therapy at that time and also treated with external beam radiation. His PSAs have responded well and have been 0 it was last 1 being in July 2024. He continues to tolerate the Eligard injections well. Patient continues on doxazosin 4 mg for lower urinary tract symptoms. Wilbur Arenas Jr, MD [address], [address], [place], [address], [facility] [place] 11/10/2024 14:56:59
--- OUTSIDE RECORDS SUMMARY | 2025-04-21 14:45 | XMS_ITS | Clinical Summary ---
Author Organization [facility] Address [address] [place] [address] Care Team Providers Care Stone Rougher Name Role Phone Félix Wasserman MD Primary Care Provider [phone]- [phone] Immunizations Immunization Administration Dates Next Due Influenza, seasonal, injectable 07/31/2015 Pneumococcal Polysaccharide PPV23 09/18/2015 Social History Tobacco Use Types Packs/Day Years Used Date Smoking Tobacco: Former Sex and Gender Information Value Date Recorded Sex Assigned at Not on file Legal Sex Male 7:07 PM EDT Gender Identity Not on file Sexual Orientation Not on file Last Filed Vital Signs Vital Sign Reading Time Taken Comments Blood Pressure - - Pulse - - Temperature - - Respiratory Rate - - Oxygen Saturation - - Inhaled Oxygen Concentration - - Weight 90.7 kg (200 lb) 06/26/2016 2:11 PM EDT Height 175.3 cm (5' 9 ) 06/26/2016 2:11 PM EDT Body Mass Index 29.54 06/26/2016 2:11 PM EDT Plan of Treatment Health Maintenance Due Date Last Done Comments [facility]-Depression Screening 1938 [facility]-/Child/Adol SDOH Screenings 1938 [facility]- SDOH Screenings 1956 [facility]-Adult SDOH Screenings 1956 [facility]-Zoster Vaccines (1 of 2) 1988 [facility]-RSV Vaccine: 60+ Years or (1 - 1-dose 75+ series) 2013 [facility]-FULNO-16 Vaccine ( season) 2024 08/28/2022, 03/11/2022, 10/22/2021, Additional history exists [facility]-Influenza Vaccine (#1) 2025 08/16/2021, [facility]-DTaP,Tdap,and Td Vaccines (2 - Td or Tdap) 05/29/2027 05/29/2017 [facility]-Pneumococcal Vaccine: 50+ Years Completed 07/08/2018, 05/29/2017, 09/18/2015 HPV Vaccines Aged Out No longer eligi ble based on patient's age to complete this topic [facility]-HIB Vaccines Aged Out No longer e ligible based on patient's age to complete this topic [facility]-Hepatitis A Vaccines Aged Out No longer eligible based on patient's age to complete this topic [facility]-IPV Vaccines Aged Out No longer e ligible based on patient's age to complete this topic [facility]-Rotavirus Vaccines Aged Out No lo nger eligible based on patient's age to complete this topic Insurance MEDICARE [facility] Member Subscriber Plan / Payer (Ef fective 2023-Present) Name:Jayme Thurman Relation to Subscriber:Self Name:Jayme Thurman Payer ID:Not on file Group ID:Not on file Type:Not on file Address: [address] [place] [address] [place] [id number] Care Teams Stone Rougher Relationship Specialty Start Date End Date Félix Wasserman MD [address] [place] [address] [facility] - General 03/02/21
== END 2025-04-21 23:59 | disposition home or self-care (01) ==
LOC: RAD 14:43
PROVIDERS: PCP Nurse Practitioner; Visit Provider Internal Medicine Pulmonary Disease
DX: R91.8 Other nonspecific abnormal finding of lung field (principal)
CPT/HCPCS: 71250

== ENCOUNTER 2025-07-27 13:51 | Outpatient (CLI) | payer MEDICARE, OTHER, SELFPAY ==
--- NOTE | 2025-07-27 14:15 | CT_ITS ---
FINAL REPORT TECHNIQUE: Thin section axial images were obtained from the lung apices through the upper abdomen without contrast. This study was performed with techniques to keep radiation doses as low as reasonably achievable (ALARA). Individualized dose reduction techniques using automated exposure control or adjustment of mA and/or kV according to the patient's size were employed. CLINICAL HISTORY: 3 mth F/U COMPARISON: 04/21/2025 FINDINGS: There is no mediastinal, hilar, or axillary lymphadenopathy. No pleural or pericardial effusion. Changes of emphysema are present. There are bilateral pulmonary nodules noted. A posterior left upper lobe nodule best seen on image #32 of series 2 measures 20 mm, was 20 mm on remeasure. There is a left lower lobe 30 mm nodule, was previously 30 mm. There is a mixed density inferior right upper lobe nodule, measures 20 mm in size, was previously 19 mm, not significantly changed. Additional solid and ground glass bilateral nodules are noted, stable. No new nodules are present. Limited, unenhanced evaluation of the upper abdomen is without acute abnormality. A small hiatal hernia is noted. There is no acute osseous abnormality. IMPRESSION: Multiple pulmonary nodules are noted, some of which are solid, and others are ground glass and mixed density nodules. These likely represent changes of infection, inflammation, or neoplasm. Recommend continued follow-up or correlation with PET/CT for further evaluation. Reviewed, Interpreted and Dictated by Radha Christensen MD Transcribed by Kristi Holley Authenticated and [facility]
== END 2025-07-27 23:59 | disposition home or self-care (01) ==
LOC: RAD 13:52
PROVIDERS: PCP Nurse Practitioner; Visit Provider Internal Medicine Pulmonary Disease
DX: R91.8 Other nonspecific abnormal finding of lung field (principal)
CPT/HCPCS: 71250

== ENCOUNTER 2025-08-02 10:00 | Outpatient (CLI) | payer MEDICARE, OTHER, SELFPAY ==
[2025-08-02 15:03] LABS: Hematocrit 35.3 % (42.0-52.0); Hemoglobin 11.1 g/dL (14.1-18.0); Immature Granulocytes % 0.5 %; Mean Corpuscular HGB Conc 31.4 g/dL (31.8-35.4); Mean Corpuscular Hemoglobin 28.8 pg (27.0-31.2); Mean Corpuscular Volume 91.7 fl (80-94); Nucleated Red Blood Cells % 0 %; Platelet Count 260 K/mm3 (142-424); Red Blood Count 3.85 M/mm3 (4.60-6.20); Red Cell Distribution Width-SD 42.6 fL; White Blood Count 8.5 K/mm3 (4.8-10.8)
[2025-08-02 15:21] LABS: Hemoglobin A1C 5.5 % (4.0-6.0)
[2025-08-02 15:23] LABS: Albumin Level 3.5 g/dl (3.5-5.0); Chloride 98 mmol/L (98-107); Sodium 133 mmol/L (136-145)
[2025-08-02 15:24] LABS: Potassium 4.4 mmoL/L (3.5-5.1)
[2025-08-02 15:26] LABS: Alanine Aminotransferase 14 U/L (12-78); Anion Gap 11.4 mEq/L (5-15); Aspartate Amino Transferase 19 U/L (17-59); Blood Urea Nitrogen 14 mg/dl (9-20); Carbon Dioxide 28 mmol/L (22.0-30.0); Creatinine,Serum 0.80 mg/dl (0.66-1.25); Estimated Glomerular Filt Rate 92 ml/min (>60); GFR (African American) 111 ML/MIN (>60)
[2025-08-02 15:27] LABS: Albumin/Globulin Ratio 1.4 (1.1-1.8); Alkaline Phosphatase 63 U/L (38-126); Bilirubin,Total 0.4 mg/dl (0.2-1.3); Calcium 8.5 mg/dl (8.4-10.2); Cholesterol 174 mg/dl (140-200); Globulin 2.5 g/dL (1.3-3.2); Glucose 110 mg/dl (74-100); HDL Cholesterol 41 mg/dl (40-60); Total Protein,Serum 6.0 g/dl (6.3-8.2); Triglycerides 136 mg/dl (30-150)
[2025-08-02 15:58] LABS: Thyroid Stimulating Hormone 2.50 uIU/mL (0.465-4.68)
[2025-08-02 16:17] LABS: Vitamin B12 842 pg/mL (239-931)
[2025-08-02 16:24] LABS: Prostate Specific Ag, Diagnost < 0.064 ng/ml (0.0-4.0)
--- OUTSIDE RECORDS SUMMARY | 2025-08-04 08:58 | XMS_ITS | Clinical Summary ---
Author Organization [facility] Address [address] [place] [address] Phone Care Team Providers Care Senior Data Mining Analyst Name Role Phone Unavailable Primary Care Provider [...] 1-d ose 75+ series) 2013 COVID-19 Vaccine ( - 2023-2 5 season) 2025 Influenza Vaccine (#1) 2025 Hepatitis B Vaccine Aged Out No longe r eligible based on patient's age to complete this topic Meningococcal B Vaccine Aged Out No l onger eligible based on patient's age to complete this topic Insurance [facility] CHOICE PLUS MEDICARE [place] PART A AND B [place] PART [place] B
--- OUTSIDE RECORDS SUMMARY | 2025-08-04 08:58 | XMS_ITS | Clinical Summary ---
Author Organization [facility] Address [address] [place] [address] Care Team Providers Care Cleaning Machine Operator Name Role Phone Félix Wasserman MD Primary Care Provider +1- [phone] Immunizations Immunization Administration Dates Next Due Influenza, [...] or (1 - 1-dose 75+ series) 2013 LGN-JFYAO-21 Vaccine ( season) 2025 08/28/2022, 03/11/2022, 10/22/2021, Additional history exists [facility]-Influenza [...] age to complete this topic Insurance MEDICARE [facility] [place] [id number] Care Teams Cleaning Machine Operator Relationship Specialty Start Date End Date Félix Wasserman MD [address] [place] [address] [facility] - General 03/02/21
== END 2025-08-02 23:59 ==
LOC: LAB.DROPOF 08-04 08:52
PROVIDERS: PCP Nurse Practitioner; Visit Provider Nurse Practitioner
DX: D64.9 Anemia, unspecified (principal); R73.01 Impaired fasting glucose; I10 Essential (primary) hypertension; E78.5 Hyperlipidemia, unspecified; E53.8 Deficiency of other specified B group vitamins; Z85.46 Personal history of malignant neoplasm of prostate
CPT/HCPCS: 80053; 80061; 82043; 82570; 82607; 83036; 84153; 84443; 85025

== ENCOUNTER 2025-08-23 09:46 | Outpatient (CLI) | payer MEDICARE, OTHER, SELFPAY ==
--- OUTSIDE RECORDS SUMMARY | 2025-08-23 09:55 | XMS_ITS | Clinical Summary ---
Author Organization [facility] Address [address] [place] [address] Phone Care Team Providers Care Metal Fitters And Machinists Name Role Phone Unavailable Primary Care Provider [...] 1-d ose 75+ series) 2013 COVID-19 Vaccine (2024-2 6 season) 2025 Influenza Vaccine (#1) 2025 Hepatitis B Vaccine Aged Out No longe r eligible based on patient's age to complete this topic Meningococcal B Vaccine Aged Out No l onger eligible based on patient's age to complete this topic Insurance [facility] CHOICE PLUS MEDICARE [place] PART A [place] B [place]
--- OUTSIDE RECORDS SUMMARY | 2025-08-23 09:55 | XMS_ITS | Clinical Summary ---
Author Organization [facility] Address [address] [place] [address] Care Team Providers Care Polisher Numeral Name Role Phone Félix Wasserman MD Primary Care Provider +1- [phone] Immunizations Immunization Administration Dates Next Due Influenza, [...] or (1 - 1-dose 75+ series) 2013 URS-OMTRG-20 Vaccine ( season) 2025 08/28/2022, 03/11/2022, 10/22/2021, [...] age to complete this topic Insurance MEDICARE [facility] [place] [id number] Care Teams Polisher Numeral Relationship Specialty Start Date End Date Félix Wasserman MD [address] [place] [address] [facility] - General 03/02/21
--- OUTSIDE RECORDS SUMMARY | 2025-08-23 09:55 | XMS_ITS | Data Portability ---
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 Plan of Treatment Reminders Order Date Submit Date Provider Last Modified By Organization Details Last Modified Time Details Appointments OV EST 15 2025 01:30P M Wilbur Arenas Jr, MD Not available Not available Not available Lab None recorded. Referral None recorded. Procedures None recorded. Surgeries None recorded. Imaging None recorded. Medication Orders Eligard 45 mg (6 month) subcutane ous syringe 2024 [address] [place] [id number] [facility], [address] [facility], [address], 06/02/2025 07:52:08 Eligard 45 mg (6 month) subcutane ous syringe 2024 025 [place] [address] [facility], [address], [facility] [place], [address], 11/10/2024 16:52:34 Eligard 45 mg (6 month) subcutane ous syringe 2023 024 [place] [address] [facility], [address], [facility] [place], [address], 04/14/2024 13:57:50 Eligard 45 mg (6 month) subcutane ous syringe 2022 023 [email or web address] [facility] [address] [facility] [place], [address], 10/01/2023 16:41:34 Eligard 45 mg (6 month) subcutane ous syringe 2022 023 [email or web address], [address] [facility] [place], [address], 03/12/2023 15:13:26 Patient TargetsNo targets recorded. Patient InstructionsNo instructions recorded. Reason for Referral None Reported. Problems Name Problem SNOMED Code Status Onset Date Resolution Date Notes Provider Name and Address Organization Details Recorded Time Hypertensive disorder 16250871 Active 2021 Nora phillips [facility] [place] 2 13:05:40 Hypercholeste rolemia 79515947 Active 2021 Nora phillips PIETER - LPNT [facility] & [place] 2 13:05:56 Carcinoma of prostate 100308166 Active 2021 Nora phillips PIETER LPNT [facility] & [place] 2 13:06:48 Problem Notes None recorded. Procedures Surgical History Date Name Laterality Status Provider Name and Address Organization Details Recorded Time Appendectomy completed Nora Archibald [facility]ER Jose [facility] [place] 09/09/2022 13:08:19 Cataract Surgery completed Sierra Archibald PIETER LPNT [facility] & [place] 09/09/2022 13:08:46 Imaging Results None recorded. Procedure Notes None recorded. Medical Equipment None Reported. Allergies No known drug allergies Medications Name Sig Start Date Stop Date Status Note LastModified by Organization Details LastModified Time albuterol sulfate 2.5 mg/3 mL (0.083 %) solution for nebulizatio n INHALE THE CONTENTS OF 1 VIAL VIA NEBULIZER EVERY 6 HOURS. 06/01 completed Not Available Not Available Not Available cetirizine 10 mg tablet TAKE 1 TABLET BY MOUTH ONCE DAILY. active Not Available Not Available No t Available lisinopril 20 mg-hydrochl orothiazide 12.5 mg tablet TAKE 1 TABLET BY MOUTH ONCE DAILY. active Not Available Not Available No t Available lisinopril 20 mg tablet TAKE 1 TABLET BY MOUTH ONCE DAILY FOR BLOOD PRESSURE. active Not Available Not Available No t Available prednisone 20 mg tablet TAKE 1 TABLET BY MOUTH TWICE DAILY FOR 5 DAYS. THEN TAKE 1 TABLET BY MOUTH ONCE DAILY FOR 5 DAYS. 06/01 completed Not Available Not Available Not Available amlodipine 2.5 mg tablet TAKE 1 TABLET BY MOUTH ONCE DAILY. 06/01 completed Not Available Not Available Not Available ciprofloxac in 500 mg tablet TAKE 1 TABLET BY MOUTH TWICE DAILY FOR 7 DAYS. 06/01 completed Not Available Not Available Not Available lisinopril 30 mg tablet TAKE 1 TABLET BY MOUTH ONCE DAILY. active Not Available Not Available No t Available doxazosin 4 mg tablet TAKE 1 TABLET BY MOUTH ONCE DAILY AT BEDTIME FOR BLADDER. active Not Available Not Available No t Available montelukast 10 mg tablet TAKE 1 TABLET BY MOUTH ONCE DAILY. active Not Available Not Available No t Available furosemide 20 mg tablet TAKE 1 TABLET BY MOUTH ONCE DAILY. active Not Available Not Available No t Available azelastine 137 mcg (0.1 %) nasal spray USE 2 SPRAYS IN EACH NOSTRIL NIGHTLY AT BEDTIME. 06/01 completed Not Available Not Available Not Available levofloxaci n 500 mg tablet TAKE ONE TABLET BY MOUTH EVERY 24 HOURS active Not Available Not Available No t Available albuterol sulfate HFA 90 mcg/actuati on aerosol inhaler INHALE 2 PUFFS INTO THE LUNGS EVERY 6 HOURS NEEDED FOR SHORTNESS OF BREATH OR WHEEZING. 06/01 completed Not Available Not Available Not Available cefdinir 300 mg capsule TAKE 1 CAPSULE BY MOUTH TWICE A DAY 06/01 completed Not Available Not Available Not Available doxycycline hyclate 100 mg tablet TAKE 1 TABLET BY MOUTH TWICE DAILY. 05/08 completed Not Available Not Available Not Available Eligard 45 mg (6 month) subcutaneou s syringe Inject 1 syringe by subcutane ous route. 2024 active Not Available Not Available Not Avai lable FeroSul 325 mg (65 mg iron) tablet TAKE 1 TABLET BY MOUTH TWICE DAILY. active Not Available Not Available No t Available Trelegy Ellipta 100 mcg-62.5 mcg-25 mcg powder for inhalation INHALE 1 PUFF INTO THE LUNGS ONCE DAILY active Not Available Not Available No t Available Breztri Aerosphere 160 mcg-9mcg-4. 8mcg/actuat ion HFA aerosol inhaler INHALE TWO PUFFS BY MOUTH TWICE DAILY active Not Available Not Available No t Available aspirin 81 mg capsule Take 1 capsule every day by oral route. active Not Available Not Available No t Available Clenpiq 10 mg-3.5 gram-12 gram/175 mL oral solution TAKE FIRST DOSE (175 ML) 5:00 TO 9:00 P.M. THE EVENING BEFORE COLONOSCO PY. TAKE SECOND DOSE, NEXT DAY APPROX. 5 HOURS BEFORE ARRIVAL FOR COLONOSCO PY. active Not Available Not Available No t Available Breyna 160 mcg-4.5 mcg/actuati on HFA aerosol inhaler INHALE 2 PUFFS INTO THE LUNGS TWICE DAILY. active Not Available Not Available No t Available Vitals Date Recorded Body height Body mass index (BMI) Body weight Body temperature Provider Name and Address Organization Details Last Updated DateTime 11/10/2024 172.72 cm 30.4 kg/m2 01871.47 g 98.1 [degF] Barbara Stephanie [facility] & [place] 11/10/2024 12:59:32 Date Recorded Body height Body mass index (BMI) Body weight Body temperature Provider Name and Address Organization Details Last Updated DateTime 03/12/2023 172.72 cm 30.4 kg/m2 94798.47 g 97.7 [degF] Zacarias Jacob [facility] & [place] 03/12/2023 12:59:16 Date Recorded Body height Body mass index (BMI) Body weight Body temperature Provider Name and Address Organization Details Last Updated DateTime 04/14/2024 172.72 cm 30.4 kg/m2 68740.47 g 98.1 [degF] Zacarias Jacob [facility] & [place] 04/14/2024 13:05:26 Date Recorded Body height Body mass index (BMI) Body weight Provider Name and Address Organization Details Last Updated DateTime 06/01/2025 172.72 cm 30.4 kg/m2 78886.47 g Pili Farris [facility] & [place] 06/01/2025 13:03:26 Date Recorded Body height Body mass index (BMI) Body weight Body temperature Provider Name and Address Organization Details Last Updated DateTime 10/01/2023 172.72 cm 30.4 kg/m2 56958.47 g 98 [degF] Zacarias Jacob [facility] & [place] 10/01/2023 13:08:18 Social History None recorded. Functional Status Question Answer Note LastModified by Organization D etails LastModified Time What is your level of alcohol consumption? None [email or web address] Information not available 09/09/2022 Mental Status None recorded. Family History Relationship Description Onset Age of this Age Resolved Age Notes LastModified by Organization Details LastModified Time Paternal Grandmother Carcinoma of prostate [email or web address] Not available 09/09 13:07:21 Brother Malignant neoplastic disease [email or web address] Not available 09/09 13:07:45 Father Malignant neoplastic disease [email or web address] Not available 09/09 13:07:45 Medical History No medical history recorded. Past Encounters Encounter ID Performer Location Encounter Start Date Encounter Closed Date Diagnosis/Indication Diagnosis SNOMED-CT Code Diagnosis ICD10 Code Diagnosis IMO Codes Diagnosis Note [id number] Wilbur Arenas Jr, MD [facility] [address] [place] [address] 09/09/2022 12:55:27 09/09/2022 13:44:45 Carcinoma of prostate 008833903 C59 patient with history of prostate cancer status post initiation external beam radiation and hormonal therapy in 2014. His cancer was high-grade at diagnosis. His PSAs have responded well have been 0 for several years. His Eligard injection was given today. His most recent PSA was 0 1 month ago. Seen back in 6 months. Benign pro static hyperplasia with outflow obstruction 896392639 N40.1 patient voiding well and to continue the doxazosin 4 mg a day. [id number] Wilbur Arenas Jr, MD [facility] [address] [place] [address] 03/12/2023 12:50:31 03/12/2023 13:27:28 Carcinoma of prostate 836526004 C61 patient with history of prostate cancer [...] Benign pro static hyperplasia with outflow obstruction 264301224 N40.1 patient voiding well and to continue the doxazosin 4 mg a day. [id number] [facility] [address] [address] 10/01/2023 12:56:59 10/01/2023 13:25:23 Carcinoma of prostate 615215571 C61 patient with history of prostate cancer status post initiation external beam radiation and hormonal therapy in 2014. His cancer was high-grade at diagnosis. His PSAs have responded well have been 0 for several years. His Eligard injection was given today. His most recent PSA was 0 four month ago. We will see back in 6 months. Nocturia 961445041 R35.1 patient with complaints of nocturia 3-4 times. Drinks fluids right up to bedtime due to constipati on. We discussed taking a stool softener nightly instead drinking all the fluid. Benign pro static hyperplasia with outflow obstruction 096257895 N40.1 patient voiding well and to continue the doxazosin 4 mg a day. [id number] Wilbur [facility]as Jr, [facility] [address] [address] 04/14/2024 13:00:59 04/14/2024 13:21:39 Malignant neoplasm of prostate 024221682 C61 Patient with history of prostate cancer. He was diagnosed in 2014 and began hormonal therapy at that time and was treated with external beam radiation. His PSAs have responded well and continued to be 0. His Eligard injection was given today. Lower urin live tract symptoms 512296331 R39.9 patient continues on doxazosin 4 mg. Nocturia 957842549 R35.1 patient with complaints of nocturia 3-4 times. Drinks fluids right up to bedtime due to constipati on. We discussed taking a stool softener nightly instead drinking all the fluid. [id number] Wilbur Arenas Jr, MD [facility] [address] [address] 11/10/2024 12:40:38 11/10/2024 13:21:31 Malignant neoplasm of prostate 418710286 C61 Patient with history of prostate cancer. He was diagnosed in 2014 and began hormonal therapy at that time and was treated with external beam radiation. His PSAs have responded well and continued to be 0. His Eligard injection was given today. Lower urin live tract symptoms 510965287 R39.9 patient continues on doxazosin 4 mg. [id number] Wilbur Arenas Jr, MD [facility] [address] [address] 06/01/2025 13:01:58 06/01/2025 13:43:42 Malignant neoplasm of prostate 664065419 C61 [id number] Patient with history of prostate cancer. He was diagnosed in 2014 and began hormonal therapy at that time and was treated with external beam radiation. His PSAs have responded well and continued to be 0. His Eligard injection was given today. Lower urin live tract symptoms 181717116 R39.9 [id number] patient continues on doxazosin 4 mg. He is voiding well. Health Concerns Section Related Observation LastModified by Organization Detai ls LastModified Time None Recorded Concern Status LastModified by Organization Details LastModified Time None Recorded Advance Directives Directive None Recorded Payers Insurance Date Sequence Insurance Name Policy Number Policy Ceron Covered Member ID Ceron Member ID Guarantor Name 05/29/2025 1 [place] Jayme Thurman [id number] Jayme Thurman 05/30/2025 2 [facility] (MEDICARE SUPPLEMENT) Jyame Thurman [id number] Jayme Thurman Notes Date Note Type Note Provider Name and Address Organization Details Recorded Time 03/12/2023 text/html Patient is a 82-year-old white [...] history of BPH. Wilbur Arenas Jr, MD [address] [place] [address], [address], [place], [address], [facility] & [place] 03/12/2023 13:33:55 10/01/2023 text/html ROS as noted in the HPI patient is an 82-year-old white male with [...] for BPH symptoms. Wilbur Arenas Jr, MD [address] [place] [address], [address], [address], [facility] & [place] 10/01/2023 15:19:39 04/14/2024 text/html ROS as noted in the HPI Patient is an 83-year-old white male with [...] at this time. Wilbur Arenas Jr, MD [address] [facility], [address], [place], [address], [facility] & [place] 04/14/2024 13:25:38 11/10/2024 text/html ROS as noted in the HPI Patient is an 83-year-old white male with [...] urinary tract symptoms. Wilbur Arenas Jr, MD [address] [place] [address] Drive, [address], [place], [address], [facility] [place] [facility] [place] 11/10/2024 14:56:59 06/01/2025 text/html ROS as noted in the HPI Patient is an 84-year-old white male with history prostate cancer that was high-grade. He was diagnosed in 2014. Started on hormonal therapy at that time and also underwent external beam radiation. His PSAs have remained 0 since treatment initiated. He continues on Eligard injection in his due for that today. He is also on doxazosin 4 mg for history of BPH. States he is doing well. His 1 year ago. His PSA was 0 3 months ago with his primary care physician. Wilbur Arenas Jr, MD [address] [place] [address], [address], [place], [address], [place] - LPNT [facility] & [place] 06/01/2025 13:50:50
[2025-08-23 10:49] LABS: Hematocrit 33.7 % (42.0-52.0); Hemoglobin 11.0 g/dL (14.1-18.0); Immature Granulocytes % 0.7 %; Mean Corpuscular HGB Conc 32.6 g/dL (31.8-35.4); Mean Corpuscular Hemoglobin 29.7 pg (27.0-31.2); Mean Corpuscular Volume 91.1 fl (80-94); Nucleated Red Blood Cells % 0 %; Platelet Count 253 K/mm3 (142-424); Red Blood Count 3.70 M/mm3 (4.60-6.20); Red Cell Distribution Width-SD 42.9 fL; White Blood Count 9.7 K/mm3 (4.8-10.8)
[2025-08-23 10:56] LABS: Alanine Aminotransferase 18 U/L (12-78); Albumin Level 3.8 g/dl (3.5-5.0); Albumin/Globulin Ratio 1.3 (1.1-1.8); Alkaline Phosphatase 60 U/L (38-126); Anion Gap 11.1 mEq/L (5-15); Aspartate Amino Transferase 22 U/L (17-59); Bilirubin,Total 0.4 mg/dl (0.2-1.3); Blood Urea Nitrogen 15 mg/dl (9-20); Calcium 8.8 mg/dl (8.4-10.2); Carbon Dioxide 25 mmol/L (22.0-30.0); Chloride 101 mmol/L (98-107); Creatinine,Serum 1.00 mg/dl (0.66-1.25); Estimated Glomerular Filt Rate 71 ml/min (>60); GFR (African American) 86 ML/MIN (>60); Globulin 2.9 g/dL (1.3-3.2); Glucose 107 mg/dl (74-100); Potassium 4.1 mmoL/L (3.5-5.1); Sodium 133 mmol/L (136-145); Total Protein,Serum 6.7 g/dl (6.3-8.2)
== END 2025-08-23 23:59 | disposition home or self-care (01) ==
LOC: PREOP 09:47
PROVIDERS: Nurse Anesthetist, Certified Registered; PCP Nurse Practitioner; Visit Provider Internal Medicine Pulmonary Disease
DX: Z01.812 Encounter for preprocedural laboratory examination (principal); Z01.818 Encounter for other preprocedural examination
CPT/HCPCS: 80053; 85025

== ENCOUNTER 2025-08-26 06:02 | Day surgery (SDC) | payer MEDICARE, OTHER, SELFPAY ==
[2025-08-23 14:49] VITALS: BMI 30.4
[2025-08-26] VITALS (10 sets, daily range): BP systolic 134–169; BP diastolic 65–94; PULSE 67–94; RESP 16–18; TEMP 35.8–36.6; O2SAT 92–96
--- NOTE | 2025-08-26 07:13 | EXP.ANES.CKL ---
[facility] Disclaimer: The information contained in this section may have been updated after the patient was seen, as this information can be updated by other users. 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, face Lung nodule Neoplasm of uncertain behavior of skin of face Right inguinal pain Vitamin B12 deficiency Anemia Dyspnea on exertion Fibrosis of lung History of smoking 30 or more pack years Coronary artery disease Medical mgt (AUG 2023) Abnormal PFT COPD (chronic obstructive pulmonary disease) Shortness of breath Neoplasm of uncertain behavior of skin of face Impacted cerumen, left ear Edema of both lower extremities Essential hypertension IFG (impaired fasting glucose) Prostate cancer Dyslipidemia Hypertension Surgical History History of hernia repair History of appendectomy Family History Other Cancer Social History (Updated 08/26/25 @ 06:40 by Hetal Olivares RN) Smoking Status: Former smoker tobacco type: cigarettes smoking status stop date: 35 years ago second hand exposure: No alcohol intake: never substance use type: denies use current occupational status: retired Travel in the last 8 weeks?: None household members: spouse housing: house current occupational exposures/hazards: No caffeine: Yes Have you lived/traveled outside [place] in past 30 days?: No Contact w/someone who lives/traveled outside US past 30 days?: No Exposure to someone with infectious disease in past 14 days?: No Do you have a fever (greater than 100.4 F or 38 C)?: No Have you tested positive for COVID-19?: No Exposed to someone with COVID-19 in past 14 days?: No Do you have a sore throat?: No Do you have a cough?: No Do you have any weakness?: No Are you experiencing any nausea/vomitting?: No Do you have any diarrhea?: No Are you experiencing any unusual bleeding?: No Do you have any muscle aches/pain?: No Do you have any abdominal pain?: No Are you experiencing loss of taste or smell?: No [facility] Anesthesia Checklist Patient Identification Patient Identification: Arm Band and Verbal (Name & ) Structural Data Admitted From: Home Planned Operative Procedure/s: Bronchoscopy Consent for Planned Operative Procedure(s) Verified: Yes Verified Documents: Surgical Consent NPO Status Verified Time NPO: 00:00 Chart Verification Results Verified: ECG Additional verifications Anesthesia Reactions: No Airway Assessment Mallampati Score:: Class II C-Spine Mobility Assessed: Yes TMJ Mobility Assessed: Yes Dentition: Dentures-good fit Neurological Assessment Level of Consciousness: Awake, Alert and Appropriate Hx Seizures: No Numbness or tingling in extremities: No Anesthesia Plan Anesthesia Risk discussed: Yes Anesthesia Plan: Verified ASA Class: III Anesthesia Type: General
[2025-08-26] MEDS: LACTATED RINGERS 1000ML 1,000 ML 25 ML IV (07:31)
--- NOTE | 2025-08-26 10:45 | XR_ITS ---
FINAL REPORT CLINICAL HISTORY: BRONCH fluor 17:46 192.37 mGy COMPARISON: None FINDINGS: FLUOROSCOPY LESS THAN 1 HOUR HISTORY: FINDINGS: Fluoroscopic guidance was provided for bronchoscopy. A single spot film was obtained. 17 minutes and 46 seconds of fluoroscopy time were used, with a dosage of 192.37 mGy. IMPRESSION: As above. Reviewed, Interpreted and Dictated by Aidan Alicea MD Transcribed by Kristi Holley Authenticated and [facility]
--- NOTE | 2025-08-26 11:04 | P.PNANES_ITS ---
[facility] Anesthesia Record Part I Anesthesia Record I Intake, IV Amount: 900 Hydration: Adequate Estimated blood loss (mL): 0 Urine output (mL): 0 Blood Products used (#): none Blood Pressure: 147/65 SaO2: 96 Pulse Rate: 69 Airway Patency: Patent Respiratory Rate: 16 Temperature: 97.0 F Patient is:: Awake and Stable Stable to PACU at:: 11:00
--- NOTE | 2025-08-26 11:10 | XR_ITS ---
FINAL REPORT CLINICAL HISTORY: bronchoscopy COMPARISON: 04/30/2022 FINDINGS: A portable view of the chest was obtained. Heart size is normal. Fullness of the left hilum is noted. There are patchy bilateral perihilar opacities, left greater than right. There may be a small left pleural effusion. No pneumothorax. IMPRESSION: No pneumothorax after bronchoscopy. Left greater than right patchy opacities. Authenticated and ERN
--- NOTE | 2025-08-26 11:16 | P.PCN_ITS ---
Procedure: Date: 08/26/25 Patient Date of :: 1940 Procedure Performed:: Navigational bronchoscopy, airway examination, bronchoalveolar lavage, trans bronchial fine-needle aspiration, trans bronchial brushing and trans bronchial biopsy of lung nodule, endobronchial biopsy and endobronchial ultrasound-guided lymph node surveillance and fine-needle aspiration of lymph node. Indications:: Lung nodule lymphadenopathy Performing Provider:: Beatris Castillo MD Referring Provider:: Dr: Lisa Arreola APRN Sedation:: General anesthesia Procedure:: Navigational bronchoscopy, airway examination, bronchoalveolar lavage, trans bronchial fine-needle aspiration, trans bronchial brushing and trans bronchial biopsy of lung nodule, endobronchial biopsy and endobronchial ultrasound-guided lymph node surveillance and fine-needle aspiration of lymph node: A clean diagnostic bronchoscopy was advanced to the ET tube and airway examination was performed. Airways appeared grossly normal, no evidence of mucoid secretions, mucous plugging active bleeding/old blood clots noted. Moderate amount of secretions were noted. A total of 3 pulmonary nodules were planned for biopsy including the left upper lobe, left lower lobe solid lesions in the right upper lobe ground glass lesion. Patient images were previously uploaded into the ION Plan point software. Diagnostic bronchoscopy was retracted, and Robotic Ion bronchoscopy was introduced through the ET tube. The target Left Upper Lobe Nodule nodule sampling was planned, and the pathway was mapped. The nodule measured 13 mm in long axis. Following airway examination, airway registration was performed using shape sensing robot assisted bronchoscopy (SSRAB). We were 4 mm from the near edge of the nodule in the DESI . A Radial EBUS - [id number] was inserted to confirm the location which was tangential. Under fluoroscopy guidance the samples were taken. Sampling of left upper lobe lung nodule: A flexion 21 needle was used to perform FNA of the DESI Lung nodule. A total of 4 passes were made. This was followed by passes with a needle brush, 2 pass was made. Transbronchial forceps biopsies were then performed with a total of 8 biopsies were performed in the DESI Lung nodule. Bronchoalveolar lavage was performed with instillation of 15 cc normal saline with return of 10 cc back. The robotic bronchoscopy was then advanced to the previously planned Left lower lobe nodule. The nodule measured 20 mm in long axis. Following airway examination, airway registration was performed using shape sensing robot assisted bronchoscopy (SSRAB). We were 8 mm from the near edge of the nodule in the LLL . A Radial EBUS - [id number] was inserted to confirm the location which was tangential. Under fluoroscopy guidance the samples were taken. Sampling of left lower lobe lung nodule: A flexion 21 needle was used to perform FNA of the LLL Lung nodule. A total of 4 passes were made. This was followed by passes with a needle brush, 2 pass was made. Transbronchial forceps biopsies were then performed with a total of 8 biopsies were performed in the DESI Lung nodule. Bronchoalveolar lavage was performed with instillation of 15 cc normal saline with return of 10 cc back. The robotic bronchoscopy was then advanced to the previously planned Right Upper Lobe nodule. The nodule measured 15 mm in long axis. Following airway examination, airway registration was performed using shape sensing robot ass isted bronchoscopy (SSRAB). We were 6 mm from the near edge of the nodule in the RUL . A Radial EBUS - [id number] was inserted to confirm the location which was faint tangential. Under fluoroscopy guidance the samples were taken. Sampling of the right upper lobe lung nodule: Transbronchial forceps biopsies were then performed with a total of 4 biopsies were performed in the RUL Lung nodule. Bronchoalveolar lavage was performed with instillation of 15cc normal saline with return of 8 cc back. Samples from transbronchial FNA, brush, forceps biopsy and bronchoalveolar lavage fluid samples from each of the three lung nodules were sent separately in CytoLyt for cytopathologic examination. Ion robotic bronchoscopy was retracted and EBUS bronchoscope was introduced for lymph node surveillance. Five passes were taken using 21 gauge needing at lymph node stations 7. Resultant lymph node FNA sample were labelled separately for each lymph node station and were sent in CytoLyt for cytopathologic examination. Findings:: Please see the procedure note Recommendations:: Postoperative bronchoscopy with inspection Follow-up in pulmonary clinic in 5 to 7 days Complications:: No acute immediate complication Estimated blood obtained (mL): 5
--- NOTE | 2025-08-26 14:55 | EXP.ANES.II ---
[facility] Anesthesia Record Part II Anesthesia Record Part II Discharge Time: 12:01 Destination: Surgical Day Care (OP Surgery) PACU nurse assessment reviewed?: Yes Patient Condition:: Good Anesthesia Complications:: None Swallowing reflex intact?: Yes Airway Patency: Patent Cyanosis?: No Blood Pressure: 135/93 SaO2: 95 Respiratory Rate: 18 Pulse Rate: 71 Temperature: 96.4 F Mental Status: Alert & Oriented Pain level:: 0 Nausea and/or vomitting:: None Intake, IV Amount: 0 Hydration: Adequate
== END 2025-08-26 12:01 | disposition home or self-care (01) ==
PROVIDERS: PCP Nurse Practitioner; Visit Provider Internal Medicine Pulmonary Disease
PROC: (CPT 31627; principal; 2025-08-26 07:30)
DX: C34.32 Malignant neoplasm of lower lobe, left bronchus or lung (principal); C34.12 Malignant neoplasm of upper lobe, left bronchus or lung; J44.9 Chronic obstructive pulmonary disease, unspecified; J84.10 Pulmonary fibrosis, unspecified; I10 Essential (primary) hypertension; D64.9 Anemia, unspecified; Z79.82 Long term (current) use of aspirin; Z87.891 Personal history of nicotine dependence
CPT/HCPCS: 31627; 31628; 31632; 31652; 71045; 76000; 88112; 88173; 88305; 88341; 88342; J1100; J2003; J2371; J2405; J2704; J3010; J7120

== ENCOUNTER 2025-08-27 11:59 | Emergency (ER) | payer MEDICARE, OTHER, SELFPAY ==
[2025-08-27] VITALS (12 sets, daily range): BP systolic 103–169; BP diastolic 61–85; PULSE 85–113; RESP 17–22; TEMP 36.4–36.6; O2SAT 91–98; BMI 30.4
--- NOTE | 2025-08-27 12:03 | ECG_ITS ---
APPROVED REPORT Exam: Resting ECG HR:88 bpm ECG Measurements Heart Rate 88 AXES IN 116 P 0 QRSd 106 QRS -32 QT 342 T 74 QTc 387 Conclusion SINUS RHYTHM WITH SHORT IN INTERVAL LEFT AXIS DEVIATION [QRS AXIS < -30] LATERAL MYOCARDIAL INFARCTION , OF INDETERMINATE AGE [40+ ms Q WAVE AND/OR ST/T ABNORMALITY IN I/aVL/V5/V6] ABNORMAL ECG UNCONFIRMED REPORT Electronically signed by : REINA MENDEZ, 08/28/2025 02:16:39
--- OUTSIDE RECORDS SUMMARY | 2025-08-27 12:06 | XMS_ITS | Data Portability ---
Author Organization [place] - [place] [facility] and [facility] Address [address] [place] [address] Care Team Providers Care Development Manager Name Role Phone GRZEGORZMICHAEL HU Primary Care Provider Assessment No assessment recorded. [...] (6 month) subcutane ous syringe [address]24 [address] [place] [id number] [facility], [address] [facility], [address], 06/02/2025 07:52:08 Eligard 45 mg (6 month) subcutane ous syringe 2024 [address] [place] [address] [facility], [address] [employer], [facility] [place], [address], 11/10/2024 16:52:34 Eligard 45 mg (6 month) subcutane ous syringe 2023 [address] [place] [address] [facility], [address], [facility] [place], [address], 04/14/2024 13:57:50 Eligard 45 mg (6 month) subcutane ous syringe 2022 023 [email or web address] [address] [facility] [place], [address], 10/01/2023 16:41:34 Eligard 45 mg (6 month) subcutane ous syringe 2022 [email or web address], [address] [facility] [place], [address], 03/12/2023 15:13:26 Patient TargetsNo targets recorded. Patient InstructionsNo instructions recorded. Reason for Referral None Reported. Problems Name Problem SNOMED Code Status Onset Date Resolution Date Notes Provider Name and Address Organization Details Recorded Time Hypertensive disorder 60143194 Active 2021 [facility] [place] 2 13:05:40 Hypercholeste rolemia 87754204 Active 2021 Nora phillips PIETER - [facility] & [place] 2 13:05:56 Carcinoma of prostate 864770252 Active 2021 Nora phillips PIETER [facility] & [place] 2 13:06:48 Problem Notes None recorded. Procedures Surgical History Date Name Laterality Status Provider Name and Address Organization Details Recorded Time Appendectomy completed Nora Archibald [facility] [place] 09/09/2022 13:08:19 Cataract Surgery completed Sierra Archibald PIETER [facility] & [place] 09/09/2022 13:08:46 Imaging Results None recorded. Procedure [...] Updated DateTime 11/10/2024 172.72 cm 30.4 kg/m2 05628.47 g 98.1 [degF] Barbara Stephanie [facility] & [place] 11/10/2024 12:59:32 Date Recorded Body height Body mass index (BMI) Body weight Body temperature Provider Name and Address Organization Details Last Updated DateTime 03/12/2023 172.72 cm 30.4 kg/m2 18446.47 g 97.7 [degF] Zacarias Jacob [facility] & [place] 03/12/2023 12:59:16 Date Recorded Body height Body mass index (BMI) Body weight Body temperature Provider Name and Address Organization Details Last Updated DateTime 04/14/2024 172.72 cm 30.4 kg/m2 42690.47 g 98.1 [degF] Zacarias Jacob [facility] & [place] 04/14/2024 13:05:26 Date Recorded Body height Body mass index (BMI) Body weight Provider Name and Address Organization Details Last Updated DateTime 06/01/2025 172.72 cm 30.4 kg/m2 41576.47 g Pili Farris [facility] & [place] 06/01/2025 13:03:26 Date Recorded Body height Body mass index (BMI) Body weight Body temperature Provider Name and Address Organization Details Last Updated DateTime 10/01/2023 172.72 cm 30.4 kg/m2 83627.47 g 98 [degF] Zacarias Jacob [facility] & [place] 10/01/2023 13:08:18 Social History None recorded. Functional Status Question Answer Note LastModified by Organization D etails LastModified Time What is your level of alcohol consumption? None [email or web address] Information not available 09/09/2022 Mental Status None recorded. Family History Relationship Description Onset Age of this Age Resolved Age Notes LastModified by Organization Details LastModified Time Paternal Grandmother Carcinoma of prostate [email or web address] Not available 09/09 13:07:21 Brother Malignant neoplastic disease [email or web address] Not available 09/09 13:07:45 Father Malignant neoplastic disease [email or web address] Not available 09/09 13:07:45 Medical History No medical history recorded. Past Encounters Encounter ID Performer Location Encounter Start Date Encounter Closed Date Diagnosis/Indication Diagnosis SNOMED-CT Code Diagnosis ICD10 Code Diagnosis IMO Codes Diagnosis Note [id number] Wilbur Arenas Jr, MD [facility] [address] [place] [phone] 09/09/2022 12:55:27 09/09/2022 13:44:45 Carcinoma of prostate [id number] C59 patient with history of prostate cancer status post initiation external beam radiation and hormonal therapy in 2014. His cancer was high-grade at diagnosis. His PSAs have responded well have been 0 for several years. His Eligard injection was given today. His most recent PSA was 0 1 month ago. Seen back in 6 months. Benign pro static hyperplasia with outflow obstruction 542229956 N40.1 patient voiding well and to continue the doxazosin 4 mg a day. [id number] Wilbur Arenas Jr, MD [facility] [address] [place] [address] 03/12/2023 12:50:31 03/12/2023 13:27:28 Carcinoma of prostate [id number] C61 patient with history of prostate cancer [...] Benign pro static hyperplasia with outflow obstruction 327803645 N40.1 patient voiding well and to continue the doxazosin 4 mg a day. [id number] [facility] [address] [address] 10/01/2023 12:56:59 10/01/2023 13:25:23 Carcinoma of prostate 269191312 C61 patient with history of prostate cancer status post initiation external beam radiation and hormonal therapy in 2014. His cancer was high-grade at diagnosis. His PSAs have responded well have been 0 for several years. His Eligard injection was given today. His most recent PSA was 0 four month ago. We will see back in 6 months. Nocturia 942771725 R35.1 patient with complaints of nocturia 3-4 times. Drinks fluids right up to bedtime due to constipati on. We discussed taking a stool softener nightly instead drinking all the fluid. Benign pro static hyperplasia with outflow obstruction 433186485 N40.1 patient voiding well and to continue the doxazosin 4 mg a day. [id number] [facility] [address] [address] 04/14/2024 13:00:59 04/14/2024 13:21:39 Malignant neoplasm of prostate 115057858 C61 Patient with history of prostate cancer. He was diagnosed in 2014 and began hormonal therapy at that time and was treated with external beam radiation. His PSAs have responded well and continued to be 0. His Eligard injection was given today. Lower urin live tract symptoms 463853692 R39.9 patient continues on doxazosin 4 mg. Nocturia 665483131 R35.1 patient with complaints of nocturia 3-4 times. Drinks fluids right up to bedtime due to constipati on. We discussed taking a stool softener nightly instead drinking all the fluid. [id number] [facility] Jr[facility] [address] [address] 11/10/2024 12:40:38 11/10/2024 13:21:31 Malignant neoplasm of prostate 786188004 C61 Patient with history of prostate cancer. He was diagnosed in 2014 and began hormonal therapy at that time and was treated with external beam radiation. His PSAs have responded well and continued to be 0. His Eligard injection was given today. Lower urin live tract symptoms 672948096 R39.9 patient continues on doxazosin 4 mg. [id number] Wilbur Arenas Jr, MD [facility] [address] [address] 06/01/2025 13:01:58 06/01/2025 13:43:42 Malignant neoplasm of prostate [id number] C61 [id number] Patient with history of prostate cancer. He was diagnosed in 2014 and began hormonal therapy at that time and was treated with external beam radiation. His PSAs have responded well and continued to be 0. His Eligard injection was given today. Lower urin live tract symptoms 900816677 R39.9 [id number] patient continues on doxazosin 4 mg. He is voiding well. Health Concerns Section Related Observation LastModified by Organization Detai ls LastModified Time None Recorded Concern Status LastModified by Organization Details LastModified Time None Recorded Advance Directives Directive None Recorded Payers Insurance Date Sequence Insurance Name Policy Number Policy Ceron Covered Member ID Ceron Member ID Guarantor Name 05/29/2025 1 [place] Jayme Thurman [id number] Jayme Thurman 05/30/2025 2 [facility] (MEDICARE SUPPLEMENT) Jayme Thurman [id number] Jayme Thurman Notes Date Note Type Note [...] history of BPH. Wilbur Arenas Jr, MD [address] [place] [address], [address], [place], [address], [facility] & [place] 03/12/2023 13:33:55 10/01/2023 text/html ROS as noted [...] for BPH symptoms. Wilbur Arenas Jr, MD [address] [place] [address], [address], [address], [facility] & [place] 10/01/2023 15:19:39 04/14/2024 text/html ROS as noted [...] this time. Wilbur Arenas Jr, MD [address] [facility], [address], [place], [address], [facility] & [place] 04/14/2024 13:25:38 11/10/2024 text/html ROS as noted [...] urinary tract symptoms. Wilbur Arenas Jr, MD [address] [place] [address] Drive, [address], [place], [address], [facility] [place] [facility] [place] 11/10/2024 14:56:59 06/01/2025 text/html ROS as noted [...] primary care physician. Wilbur Arenas Jr, MD [address] [place] [address], [address], [place], [address], [place] - [facility] & [place] 06/01/2025 13:50:50
--- NOTE | 2025-08-27 12:14 | CT_ITS ---
PROCEDURE INFORMATION: Exam: CTA Chest With Contrast Exam date and time: 08/27/2025 12:43 PM Age: 84 years old Clinical indication: Shortness of breath; Prior surgery; Surgery date: Post-operative (0-2 days); Surgery type: Bronch yesteraday; Additional info: Soa/abd pain/vom post bronch TECHNIQUE: Imaging protocol: Computed tomographic angiography of the chest with contrast. Exam focused on the arteries. 3D rendering (Not supervised by radiologist): MIP and/or 3D reconstructed images were created by the technologist. Radiation optimization: All CT scans at this facility use at least one of these dose optimization techniques: automated exposure control; mA and/or kV adjustment per patient size (includes targeted exams where dose is matched to clinical indication); or iterative reconstruction. Contrast material: ISOVUE 370; Contrast volume: 80 ml; Contrast route: INTRAVENOUS (IV); COMPARISON: CT CHEST WO CON 07/27/2025 1:53 PM FINDINGS: Pulmonary arteries: No evidence of pulmonary embolus to the segmental level. Aorta: No aneurysm of the aorta. No dissection of the aorta. Lungs: Spiculated opacity in the posterior aspect of the left upper lobe measures 17 x 17 mm. Series 5, image 32. Well delineated opacity in the left lower lobe 2.4 x 1.7 cm (series 5, image 16.) . Calcified nodule in the left lower lobe consistent with prior granulomatous disease. Mild opacities in the right upper lobe and right middle lobe may represent atelectasis or pneumonia. Pleural spaces: Unremarkable. No pneumothorax. No pleural effusion. Heart: There is calcification of the aortic valve annulus. There is calcification of the mitral valve annulus. Small pericardial effusion Coronary arteries: Coronary artery calcifications may indicate coronary artery disease. Lymph nodes: Unremarkable. No enlarged lymph nodes. Bones/joints: Unremarkable. No acute fracture. Soft tissues: Unremarkable. IMPRESSION: 1. No evidence of pulmonary embolus to the segmental level. 2. No aneurysm of the aorta. 3. No dissection of the aorta. 4. Spiculated opacity in the posterior aspect of the left upper lobe measures 17 x 17 mm. Series 5, image 32. Consider non-emergent PET/CT or tissue sampling. (Reference: Griselda) References: Griselda Goncalves et al. Guidelines for Management of Incidental Pulmonary Nodules Detected on CT Images: From the Fleischner Society 2017. Radiology. 2017;284(1):228-243. 5. Well delineated opacity in the left lower lobe 2.4 x 1.7 cm (series 5, image 16.) . Consider non-emergent PET/CT or tissue sampling. (Reference: Griselda) References: Griselda Goncalves, et al. Guidelines for Management of Incidental Pulmonary Nodules Detected on CT Images: From the Fleischner Society 2017. Radiology. 2017;284(1):228-243. 6. Mild opacities in the right upper lobe and right middle lobe may represent atelectasis or pneumonia.
--- NOTE | 2025-08-27 12:14 | CT_ITS ---
PROCEDURE INFORMATION: Exam: CTA Abdomen and Pelvis With Contrast Exam date and time: 08/27/2025 12:43 PM Age: 84 years old Clinical indication: Abdominal pain; Generalized; Prior surgery; Surgery date: 6+ months; Surgery type: Hernia repair, appy; Additional info: Abd pain/vom/soa post bronch TECHNIQUE: Imaging protocol: Computed tomographic angiography of the abdomen and pelvis with contrast. Exam focused on the arteries. 3D rendering (Not supervised by radiologist): MIP and/or 3D reconstructed images were created by the technologist. Radiation optimization: All CT scans at this facility use at least one of these dose optimization techniques: automated exposure control; mA and/or kV adjustment per patient size (includes targeted exams where dose is matched to clinical indication); or iterative reconstruction. Contrast material: ISO 370; Contrast volume: 80 ml; Contrast route: INTRAVENOUS (IV); COMPARISON: CT ABDOMEN PELVIS W CON 04/05/2024 8:28 AM FINDINGS: Diaphragm: Small hiatal hernia Aorta: No aortic aneurysm. No aortic dissection. Celiac and mesenteric arteries: No occlusion or significant stenosis. Renal arteries: No occlusion or significant stenosis. Right iliac arteries: No occlusion or significant stenosis. Left iliac arteries: No occlusion or significant stenosis. Liver: 15 mm cyst in the dome of the liver. . No follow-up imaging recommended . Gallbladder and biliary ducts: The gallbladder is distended. Gallbladder wall thickening and pericholecystic fluid. Recommend further evaluation for gallbladder pathology if clinically indicated. The common duct is prominent. It measures 15 millimeters. This may be due to elderly status. However, if biliary obstruction is suspected clinically, recommend further evaluation Pancreas: Pancreatic atrophy Spleen: Unremarkable. No splenomegaly. Adrenal glands: Unremarkable. No mass. Kidneys and ureters: Unremarkable. No solid mass. No hydronephrosis. Stomach and bowel: Diverticulosis of the colon. No diverticulitis . No obstruction Appendix: Appendectomy Intraperitoneal space: Unremarkable. No free air. No significant fluid collection. Lymph nodes: Unremarkable. No enlarged lymph nodes. Urinary bladder: Unremarkable. No mass. Reproductive: Unremarkable as visualized. Bones/joints: No acute fracture. Soft tissues: Umbilical hernia contains fat IMPRESSION: The gallbladder is distended. Gallbladder wall thickening and pericholecystic fluid. Recommend further evaluation for gallbladder pathology if clinically indicated.
--- NOTE | 2025-08-27 12:19 | XR_ITS ---
PROCEDURE INFORMATION: Exam: XR Chest Exam date and time: 08/27/2025 12:49 PM Age: 84 years old Clinical indication: Shortness of breath; Additional info: SOA TECHNIQUE: Imaging protocol: Radiologic exam of the chest. Views: 1 view. COMPARISON: CT ANGIO CHEST 08/27/2025 12:43 PM FINDINGS: Lungs: Opacity in the left midlung and right mid lung and left base may represent some of the masses described on CT. Recommend further evaluation. Pleural spaces: Unremarkable. No pleural effusion. No pneumothorax. Heart/Mediastinum: Unremarkable. No cardiomegaly. Bones/joints: Unremarkable. IMPRESSION: Opacity in the left midlung and right mid lung and left base may represent some of the masses described on CT. Recommend further evaluation.
--- NOTE | 2025-08-27 12:24 | ED_ITS ---
<Statement entered by Champ Peterson MD - 08/27/25 15:31> Champ Peterson MD: I was consulted by the LUDA, and we discussed the complexity of the problems being addressed. I approved the treatment and management plan for this patient's care in the emergency department, thus performing a substantive portion of the medical decision making. Sepsis bolus fluids were considered but given history of heart failure judicious fluid resuscitation was conducted. Discharge Plan Disposition Patient Disposition: Xfer Short-Term Hosp Prescriptions Prescriptions: No Action ascorbic acid (vitamin C) 500 mg tablet 500 mg PO DAILY aspirin [Adult Low Dose Aspirin] 81 mg tablet,delayed release (DR/EC) 81 mg PO DAILY omeprazole 20 mg capsule,delayed release(DR/EC) 20 mg PO DAILY lisinopril 30 mg tablet 30 mg PO DAILY Qty: 90 1RF montelukast 10 mg tablet 10 mg PO DAILY Qty: 90 1RF doxazosin 4 mg tablet 4 mg PO QHS Qty: 90 1RF docusate sodium [Stool Softener] 100 mg capsule 100 mg PO DAILY PRN (Reason: constipation) Qty: 90 1RF cetirizine 10 mg tablet 10 mg PO DAILY Qty: 90 1RF fluticasone propionate 50 mcg/actuation spray,suspension 1 spray intranasal DAILY Qty: 16 2RF Rx Instructions: administer into each nostril albuterol sulfate 90 mcg/actuation HFA aerosol inhaler 2 puff inhalation Q6H PRN (Reason: shortness of breath or wheezing) 30 Days Qty: 8.5 2RF Patient Comments: INHALE 2 PUFFS BY MOUTH FOUR TIMES DAILY NEEDED FOR SHORTNESS OF BREATH OR WHEEZING cyanocobalamin (vitamin B-12) 1,000 mcg tablet 1,000 mcg PO DAILY Qty: 30 5RF ferrous sulfate 325 mg (65 mg iron) tablet 325 mg PO BID Qty: 60 1RF Bevespi Aerosphere 9-4.8 mcg HFA aerosol inhaler 2 puff inhalation BID Qty: 10.7 3RF Referrals Follow up/Referrals: Lisa Arreola APRN [Primary Care Provider, Family Practice] - See instructions Clinical Impressions Clinical Impression: Pancreatitis, Acute cholangitis Stand Alone Forms Stand Alone Forms: Transfer Record - ED Instructions Patient Instructions: DI for Acute Abdominal Pain Print Language Print Language: Swedish Discharge ED Provider: Champ Peterson General Adult HPI General Chief complaint: Abdominal Pain Stated complaint: Abdominal Pain Time Seen by Provider: 08/27/25 12:04 History of Present Illness HPI narrative: patient is an 84-year-old male PMHx COPD, hx of tobacco use, HTN, HLD, hx of abnormal stress test who presents to the ED, nausea, worsening SOA and chest pain. Patient reports that yesterday he had bronch for lung nodueles, felt fine during procedure, felt fine after he was discharged home. Related Data Home Medications ?Medication ?Instructions ?Recorded ?Confirmed ascorbic acid (vitamin C) 500 mg 500 mg PO DAILY 01/2808/26/25 tablet aspirin 81 mg tablet,delayed 81 mg PO DAILY 04/28/25 1 10/26/24 release (Adult Low Dose Aspirin) omeprazole 20 mg capsule,delayed 20 mg PO DAILY 08/26/25 release Previous Rx's ?Medication ?Instructions ?Recorded cyanocobalamin (vitamin B-12) 1,000 mcg PO DAILY #30 t abs 02/01/25 1,000 mcg tablet albuterol sulfate 90 mcg/actuation 2 puff inhalation Q 6H PRN 03/15/25 aerosol inhaler shortness of breath or wheez ing 30 days #8.5 grams ferrous sulfate 325 mg (65 mg 325 mg PO BID #60 tabs 0 07/13/25 iron) tablet glycopyrrolate 9 mcg-formoterol 2 puff inhalation BID #10.7 grams 07/28/25 4.8 mcg HFA aerosol inhaler (Bevespi Aerosphere) cetirizine 10 mg tablet 10 mg PO DAILY #90 tabs 07/20 02/11 docusate sodium 100 mg capsule 100 mg PO DAILY PRN con stipation 08/02/25 (Stool Softener) #90 caps doxazosin 4 mg tablet 4 mg PO QHS bladder #90 tabs 08/02/25 fluticasone propionate 50 1 spray intranasal DAILY #16 grams 08/02/25 mcg/actuation nasal spray,suspension lisinopril 30 mg tablet 30 mg PO DAILY #90 tabs 07/20 02/11 montelukast 10 mg tablet 10 mg PO DAILY #90 tabs 07/20 02/11 Allergies Allergy/AdvReac Type Severity Reaction Status Date / Time [id number] Reductase AdvReac Intermediate MUSCLE Verified 08/26/25 06:41 Inhibitor (Mqfukqn-[id number]-Ghs ACHES Reductase Inhibitor) azithromycin AdvReac Mild ANXIETY Verified 08/26/25 06:41 [facility] Disclaimer: The information contained in this section may have been updated after the patient was seen, as this information can be updated by other users. 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, face Lung nodule Neoplasm of uncertain behavior of skin of face Right inguinal pain Vitamin B12 deficiency Anemia Dyspnea on exertion Fibrosis of lung History of smoking 30 or more pack years Coronary artery disease Medical mgt (AUG 2023) Abnormal PFT COPD (chronic obstructive pulmonary disease) Shortness of breath Neoplasm of uncertain behavior of skin of face Impacted cerumen, left ear Edema of both lower extremities Essential hypertension IFG (impaired fasting glucose) Prostate cancer Dyslipidemia Hypertension Surgical History History of hernia repair History of appendectomy Family History Other Cancer Social History Smoking Status: Never smoker smoking status stop date: 35 years ago second hand exposure: No alcohol intake: never substance use type: denies use current occupational status: retired Travel in the last 8 weeks?: None household members: spouse housing: house current occupational exposures/hazards: No caffeine: Yes Have you lived/traveled outside [place] in past 30 days?: No Contact w/someone who lives/traveled outside [place] past 30 days?: No Exposure to someone with infectious disease in past 14 days?: No Do you have a fever (greater than 100.4 F or 38 C)?: No Have you tested positive for COVID-19?: No Exposed to someone with COVID-19 in past 14 days?: No Do you have a sore throat?: No Do you have a cough?: No Do you have any weakness?: No Do you have any diarrhea?: No Are you experiencing any unusual bleeding?: No Do you have any muscle aches/pain?: No Do you have any abdominal pain?: No Are you experiencing loss of taste or smell?: No Other Medical History Have you received the Flu Vaccine for this season: Yes Have you received the Pneumonia Vaccine: Yes ROS Obtained: Yes Systems reviewed as appropriate & no additional complaints except as documented Physical Exam General General appearance: alert Eye Eye exam: Present PERRL Chest Chest inspection: Present symmetric chest wall rise Respiratory Respiratory exam: Present other (decreased ) Cardiovascular Cardiovascular exam: Present regular rate Abdominal Exam Abdominal exam: Present distention, tenderness and rigidity Extremities Exam Extremities exam: Absent tenderness Back Exam Back exam: Absent tenderness Neurological Exam Neurological exam: Present alert and oriented X3 Skin Skin exam: Present dry Medical Decision Making Medical Records Screening: Per USPSTF and CDC recommendations, given the prevalence of disease in our region, it is our hospital?s policy to screen for HIV and viral Hepatitis for all patients aged 18 and over and those with ongoing risk factors. Kuldip Inquiry Pt receiving controlled substance: No Vital Signs: 08/27/25 12:06 08/27/25 12:06 08/27/25 13:03 Temperature 97.6 F Temperature Source Oral Pulse Rate 85 112 H Pulse Rate [Right] 88 Respiratory Rate 17 Blood Pressure 169/72 H 159/78 H Blood Pressure [Right Arm] 169/72 H Blood Pressure Mean Blood Pressure Mean [Right Arm] 104 Blood Pressure Source Blood Pressure Source [Right Arm] Automatic Cuff Blood Pressure Position Blood Pressure Position [Right Arm] Supine 02 Sat by Pulse Oximetry 98 98 94 L Oxygen Delivery Method Room Air Room Air Room Air 08/27/25 13:16 08/27/25 13:31 08/27/25 14:00 Temperature Temperature Source Pulse Rate 108 H 109 H 96 H Pulse Rate [Right] Respiratory Rate 19 Blood Pressure 103/76 L 167/85 H 150/63 H Blood Pressure [Right Arm] Blood Pressure Mean Blood Pressure Mean [Right Arm] Blood Pressure Source Blood Pressure Source [Right Arm] Blood Pressure Position Blood Pressure Position [Right Arm] 02 Sat by Pulse Oximetry 95 95 95 Oxygen Delivery Method Room Air Room Air Room Air 08/27/25 14:30 08/27/25 15:00 08/27/25 15:30 Temperature Temperature Source Pulse Rate 93 H 97 H 99 H Pulse Rate [Right] Respiratory Rate 17 18 18 Blood Pressure 145/63 H 142/61 H 140/70 Blood Pressure [Right Arm] Blood Pressure Mean 94 Blood Pressure Mean [Right Arm] Blood Pressure Source Blood Pressure Source [Right Arm] Blood Pressure Position Blood Pressure Position [Right Arm] 02 Sat by Pulse Oximetry 91 L 95 95 Oxygen Delivery Method Room Air Room Air 08/27/25 15:52 08/27/25 16:01 08/27/25 16:30 Temperature Temperature Source Pulse Rate 103 H 102 H 113 H Pulse Rate [Right] Respiratory Rate 20 19 22 Blood Pressure 155/72 H 138/63 135/69 Blood Pressure [Right Arm] Blood Pressure Mean Blood Pressure Mean [Right Arm] Blood Pressure Source Blood Pressure Source [Right Arm] Blood Pressure Position Blood Pressure Position [Right Arm] 02 Sat by Pulse Oximetry 95 93 L 94 L Oxygen Delivery Method Room Air Room Air Room Air 08/27/25 17:03 Temperature 98 F Temperature Source Oral Pulse Rate 103 H Pulse Rate [Right] Respiratory Rate 18 Blood Pressure 126/67 Blood Pressure [Right Arm] Blood Pressure Mean Blood Pressure Mean [Right Arm] Blood Pressure Source Automatic Cuff Blood Pressure Source [Right Arm] Blood Pressure Position Supine Blood Pressure Position [Right Arm] 02 Sat by Pulse Oximetry Oxygen Delivery Method Room Air Lab Data Lab Results 08/27/25 12:15: WBC 23.2 H*, RBC 3.92 L, Hgb 11.7 L, Hct 35.3 L, MCV 90.1, MCH 29.8, MCHC 33.1, RDW 13.2, Plt Count 282, MPV 9.6, Neut % (Auto) 75.5, Lymph % (Auto) 18.4, [place] % (Auto) 4.3, Eos % (Auto) 0.4, Baso % (Auto) 0.3, Neut # (Auto) 17.6 H, Lymph # (Auto) 4.3, [place] # (Auto) 1.0, Eos # (Auto) 0.1, Baso # (Auto) 0.1, PT 10.8, INR 0.97, APTT 19.7 L, VBG pH 7.41, VBG pCO2 34.8 L, VBG pO2 39.6, VBG HCO3 21.7 L, VBG Total CO2 22.7 L, VBG O2 Saturation 75.4 H, VBG Base Excess -2.9 L, VBG Lactic Acid 4.2 H, Sodium 136, Potassium 3.4 L, Chloride 102, Carbon Dioxide 24, Anion Gap 13.4, BUN 18, Creatinine 1.00, Estimated Creat Clear 68, Estimated GFR 71, Est GFR ( Amer) 86, Glucose 141 H, Calcium 8.8, Total Bilirubin 0.9, AST 104 H, ALT 46, Alkaline Phosphatase 83, Troponin I < 0.01, NT-Pro-B Natriuret Pep 663 H, Total Protein 6.8, Albumin 4.7, Globulin 2.1, Albumin/Globulin Ratio 2.2 H, Triglycerides 150, Cholesterol 191, LDL Cholesterol Direct 127.19, VLDL Cholesterol 30, HDL Cholesterol 41, C holesterol/HDL Ratio 4.7 H, Lipase 74252 H, HCV Ab TANNER w/Rflx PCR Qn Negative, HIV Ag/Ab Combo Qual Negative 08/27/25 16:25: Troponin I 0.02 08/27/25 16:29: Urine Color Yellow, Urine Appearance Clear, Urine pH 5.0, Ur Specific Watson 1.010, Urine Protein Trace, Urine Glucose (UA) Negative, Urine Ketones Trace, Urine Blood Negative, Urine Nitrate Negative, Urine Bilirubin Negative, Urine Urobilinogen 1.0, Ur Leukocyte Esterase Negative, Urine RBC None, Urine WBC Occasional, Ur Squamous Epith Cells None, Urine Bacteria None 08/27/25 12:15 08/27/25 12:15 Orders (Tests/Meds): ED MEDICATIONS Discontinued Medications Generic Name Dose Route Start Last Admin Trade Name Freq PRN Reason Stop Dose Admin Diphenhydramine HCl 25 mg 08/27/25 13:17 08/27/25 13:19 Diphenhydramine 50mg/Ml Vial IV 08/27/25 13:18 25 mg ONCE ONE Administration Hydromorphone HCl 1 mg 08/27/25 15:39 08/27/25 15:47 Hydromorphone 2mg/Ml Syringe IV 08/27/25 15:40 1 mg ONCE ONE Administration Sodium Chloride 1,000 mls @ 999 mls/hr 08/27/25 12:19 08/27/25 13:32 Sod Chlor 0.9% 1000ml Bag IV 08/27/25 13:19 0 mls/hr .Q1H1M ONE Infusion Piperacillin Sod/Tazobactam 50 mls @ 100 mls/hr 08/27/25 13:08 08/27/25 14:00 Sod 3.375 gm/ Sodium Chloride IV 08/27/25 13:37 Infused ONCE ONE Infusion Iopamidol 80 ml 08/27/25 12:54 08/27/25 12:55 Iopamidol-370 (76%);100ml Bottle IV 08/27/25 12:55 80 ml ONCE ONE Administration Morphine Sulfate 4 mg 08/27/25 12:55 08/27/25 13:03 Morphine 4mg/Ml Syringe IV 08/27/25 12:56 4 mg ONCE ONE Administration Ondansetron HCl 4 mg 08/27/25 12:19 08/27/25 12:32 Ondansetron 4mg/2ml Vial IV 08/27/25 12:20 4 mg ONCE ONE Administration Sodium Chloride 10 ml 08/27/25 12:54 08/27/25 12:55 Sodium Chloride 0.9% 10ml Syr (Rad Only) IV 09/26/25 12:53 10 ml NEEDED PRN Administration Maintain IV Site Sodium Chloride 50 ml 08/27/25 12:54 08/27/25 12:55 0.9 % Sodium Chloride 50 Ml Vial IV 08/27/25 12:55 50 ml ONCE ONE Administration ORDERS Category Date Time Status CT angio abdomen pelvis Stat Cat Scan 08/27/25 12:[address] angio chest - dissection Stat Cat Scan 08/27/25 12:14 Completed CXR --portable [XR chest portable] Stat Exams 08/27/25 12:19 Completed POCUS Point of Care (ER Only) Stat Exams 08/27/25 13:15 Completed BNP [NT Pro Brain Natriuretic Pep.] Stat Lab 08/27/25 12:15 Completed CBC w/Auto Diff [Complete Blood Count Auto Diff] Stat Lab 08/27/25 12:15 Completed CMP [Comprehensive Metabolic Panel] Stat Lab 08/27/25 12:15 Completed HIV Combo Stat Lab 08/27/25 12:15 Completed Hepatitis C Ab Qual. W/ RFX Stat Lab 08/27/25 12:15 Completed Lactic Acid Follow Up (RFLX 1) Stat Lab 08/27/25 16:32 Ordered Lipase Stat Lab 08/27/25 12:15 Completed Lipid Panel Stat Lab 08/27/25 12:15 Completed PT/PTT Stat Lab 08/27/25 12:15 Completed Trop I [Troponin I] Stat Lab 08/27/25 12:15 Completed Troponin I Q3H Lab 08/27/25 16:25 Completed Urinalysis and Microscopic Stat Lab 08/27/25 16:29 Completed Blood Culture Stat Micro 08/27/25 13:15 Received VBG [Venous Blood Gas] Stat RT 08/27/25 12:15 Completed Medical Decision Narrative: In summary, patient is an 84-year-old male PMHx COPD, hx of tobacco use, HTN, HLD, hx of abnormal stress test who presents to the ED, nausea, worsening SOA and chest pain. Patient reports that yesterday he had bronch for lung nodueles, felt fine during procedure, felt fine after he was discharged home. Today he is having severe generalized abdominal pain, vomiting, and chest pain and worsening of baseline SOA. Patient states he is unable to keep anything down at this time. No history of anesthesia reaction in the past. He denies any blood in vomit or stool. Upon initial physical exam, pt A&O, mildy hypertensive, RR 22, O2 fine, abd is distended and tender. PERRLA. DD ACS, dissection, PE, perforation, surgical abdomen, cholangitis, choledocholithiasis, infection process, pneumothorax, among others. Will administer IV fluids normal saline, Zofran and morphine for symptomatic relief. Labs reviewed. CBC remarkable for leukocytosis, WBC 23.2, stable H&H. PT, INR, APTT normal. VBG pH 7.41, CO2 34.8, lactic acid 4.2. CMP remarkable for potassium 3.4, AST 104, ALT 46. BNP 663. First troponin < 0.01. Lipase 11,592. Total bilirubin 0.9. Patient started on Zosyn. Abdomen/pelvis CTA remarkable for a distended gallbladder, gallbladder wall thickening and pericholecystic fluid. Common duct measuring 15 mm. Chest CTA remarkable for opacity, could be related to nodules. Upon reassessment, patient states his pain is returning. Dilaudid 1 mg ordered for pain control. Shared decision making used, I discussed with patient and family of need for transfer due to diagnosis. They are agreeable to be transferred as we do not have the resources and capacity to care for this patient at our facility. Due to pancreatitis and possible cholangitis, I contacted [facility] for transfer. I spoke to Dr. Mike. Patient was provided bed and transported from the ED. Critical Care Critical Care Time Critical Care Time: No
[2025-08-27 12:29] LABS: VBG HCO3 21.7 mmol/L (23-30); VBG PCO2 34.8 mmol/L (35-51); VBG PH 7.41 mmol/L (7.31-7.41); VBG PO2 39.6 mmol/L (28-40)
[2025-08-27] MEDS: 0.9 % SODIUM CHLORIDE 1000ML 1,000 ML 999 ML IV (12:32)
[2025-08-27] MEDS: ONDANSETRON 4MG/2ML VIAL 4 MG IV (12:32)
[2025-08-27 12:34] LABS: Lactate Venous 4.2 mmol/L (0.4-2.0)
--- NOTE | 2025-08-27 12:34 | PC.NURSE ---
critical vbg results received, pt name and r/v. dr hernandez notified. orders to scan pt now
[2025-08-27 12:47] LABS: Albumin Level 4.7 g/dl (3.5-5.0); Chloride 102 mmol/L (98-107); Hematocrit 35.3 % (42.0-52.0); Hemoglobin 11.7 g/dL (14.1-18.0); Immature Granulocytes % 1.1 %; Mean Corpuscular HGB Conc 33.1 g/dL (31.8-35.4); Mean Corpuscular Hemoglobin 29.8 pg (27.0-31.2); Mean Corpuscular Volume 90.1 fl (80-94); Nucleated Red Blood Cells % 0 %; Platelet Count 282 K/mm3 (142-424); Potassium 3.4 mmoL/L (3.5-5.1); Red Blood Count 3.92 M/mm3 (4.60-6.20); Red Cell Distribution Width-SD 43.5 fL; Sodium 136 mmol/L (136-145); White Blood Count 23.2 K/mm3 (4.8-10.8)
[2025-08-27 12:49] LABS: Blood Urea Nitrogen 18 mg/dl (9-20); Creatinine Clearance Estimated 68 mL/min (50-200); Creatinine,Serum 1.00 mg/dl (0.66-1.25); Estimated Glomerular Filt Rate 71 ml/min (>60); GFR (African American) 86 ML/MIN (>60)
[2025-08-27 12:50] LABS: Alanine Aminotransferase 46 U/L (12-78); Albumin/Globulin Ratio 2.2 (1.1-1.8); Alkaline Phosphatase 83 U/L (38-126); Anion Gap 13.4 mEq/L (5-15); Aspartate Amino Transferase 104 U/L (17-59); Bilirubin,Total 0.9 mg/dl (0.2-1.3); Calcium 8.8 mg/dl (8.4-10.2); Carbon Dioxide 24 mmol/L (22.0-30.0); Globulin 2.1 g/dL (1.3-3.2); Glucose 141 mg/dl (74-100); Total Protein,Serum 6.8 g/dl (6.3-8.2)
[2025-08-27] MEDS: SODIUM CHLORIDE 0.9% 10ML SYR (RAD ONLY) 10 ML IV (12:55)
[2025-08-27] MEDS: IOPAMIDOL-370 (76%);100ML BOTTLE 80 ML IV (12:55)
[2025-08-27] MEDS: 0.9 % SODIUM CHLORIDE 50 ML VIAL IV (12:55)
[2025-08-27 12:59] LABS: NT Pro Brain Natriuretic Pep. 663 pg/mL (0-450)
[2025-08-27] MEDS: MORPHINE 4MG/ML SYRINGE 4 MG IV (13:03)
[2025-08-27 13:08] LABS: INR 0.97 (0.9-1.1); Prothrombin Time 10.8 seconds (10.1-12.5)
[2025-08-27 13:13] LABS: Troponin I < 0.01 ng/ml (0.00-0.034)
[2025-08-27 13:15] LABS: Lipase 11592 U/L (23-300)
--- NOTE | 2025-08-27 13:16 | PC.NURSE ---
CRITICAL LIPASE 11,[id number]. PT NAME AND R/V. DR SANTACRUZ NOTIFIED
--- NOTE | 2025-08-27 13:17 | PC.NURSE ---
Pt was given morphine in his left AC 20g IV. pt had a localized allergic reaction to the morphine. Redness noted to the left AC IV site. Estrella, [employer] notified and at pts bedside. Pt was given Benadryl IV. Left AC 20g IV discontinued at this time.
[2025-08-27] MEDS: PIPERACILLIN/TAZO 3.375 GM in 0.9 % SODIUM CHLORIDE 50 ML IV (13:19)
[2025-08-27 13:20] LABS: Activated Partial Thrombo Time 19.7 seconds (22.8-30.6)
--- NOTE | 2025-08-27 13:47 | PC.NURSE ---
called [facility] for possible transfer
--- NOTE | 2025-08-27 14:07 | PC.NURSE ---
Estrella KAPOOR on phone with darius @ 14:02
[2025-08-27 14:13] LABS: Hepatitis C Ab Qual. W/ RFX NEGATIVE (Negative)
[2025-08-27 14:19] LABS: Cholesterol 191 mg/dl (140-200); Triglycerides 150 mg/dl (30-150)
[2025-08-27 14:20] LABS: HDL Cholesterol 41 mg/dl (40-60)
--- NOTE | 2025-08-27 14:58 | PC.NURSE ---
Called for a patient transfer per [employer]FORMATION [employer] MANAGER Lala Serrano and they said they would call back.
--- NOTE | 2025-08-27 15:23 | PC.NURSE ---
call made to EMS
--- NOTE | 2025-08-27 15:23 | PC.NURSE ---
Called report to Jamari at [facility].
[2025-08-27] MEDS: HYDROMORPHONE 2MG/ML SYRINGE 1 MG IV (15:47)
[2025-08-27 16:32] LABS: Reflex Lactic Add Lactic Reflex
[2025-08-27 16:34] LABS: Microscopic, Urine URINE MICROSCOPIC (MICROSCOPIC)
[2025-08-27 16:36] LABS: Bilirubin,Urine Negative (Negative); Color,Urine YELLOW (Yellow); Glucose,Urine (UA) Negative (Negative); Ketones,Urine TRACE (Negative); Leukocyte Esterase,Urine Negative (Negative); PH,Urine 5.0 (5.0-8.5); Protein,Urine TRACE (Negative); Specific Gravity, Urine 1.010 (1.005-1.030); Urobilinogen,Urine 1.0 EU/dl (0.2)
[2025-08-27 16:45] LABS: WBC,Urine Occasional #/hpf (0-3)
[2025-08-27 16:57] LABS: Troponin I 0.02 ng/ml (0.00-0.034)
--- NOTE | 2025-08-27 22:09 | PC.NURSE ---
Evelyn from lab states both blood cultures POS for E. Coli. Will call [facility] with results.
--- NOTE | 2025-08-27 22:15 | PC.NURSE ---
Spoke with Sammi Charge Nurse. Reported critical values.
[2025-08-27 22:16] LABS: Enterobacterales Detected
[2025-08-27 22:16] LABS: Enterobacterales Detected
[2025-08-27 22:18] LABS: Acinetobacter calcoaceticus-ba Not Detected; Bacteroides fragilis Not Detected; CTX-M Not Detected; Candida auris Not Detected; Candida glabrata Not Detected; Enterococcus faecalis Not Detected; Enterococcus faecium Not Detected; IMP Not Detected; KPC Not Detected; Klebsiella aerogenes Not Detected; Klebsiella pneumoniae grp Not Detected; NDM Not Detected; OXA-48-like Not Detected; Proteus spp. Not Detected; Salmonella spp. Not Detected; Serratia marcescens Not Detected; Staphylococcus epidermidis Not Detected; Staphylococcus lugdunensis Not Detected; Staphylococcus spp. Not Detected; Stenotrophomonas maltophilia Not Detected; Streptococcus agalactiae(GrpB) Not Detected; Streptococcus pyogenes Group A Not Detected; Streptococcus spp. Not Detected; VIM Not Detected; mcr-1 Not Detected
[2025-08-27 22:19] LABS: Acinetobacter calcoaceticus-ba Not Detected; Bacteroides fragilis Not Detected; CTX-M Not Detected; Candida auris Not Detected; Candida glabrata Not Detected; Enterococcus faecalis Not Detected; Enterococcus faecium Not Detected; IMP Not Detected; KPC Not Detected; Klebsiella aerogenes Not Detected; Klebsiella pneumoniae grp Not Detected; NDM Not Detected; OXA-48-like Not Detected; Proteus spp. Not Detected; Salmonella spp. Not Detected; Serratia marcescens Not Detected; Staphylococcus epidermidis Not Detected; Staphylococcus lugdunensis Not Detected; Staphylococcus spp. Not Detected; Stenotrophomonas maltophilia Not Detected; Streptococcus agalactiae(GrpB) Not Detected; Streptococcus pyogenes Group A Not Detected; Streptococcus spp. Not Detected; VIM Not Detected; mcr-1 Not Detected
--- NOTE | 2025-08-30 08:47 | PC.NURSE ---
Prelim blood cultures faxed to Amara at [facility] 2HICU due to the pt being transferred. Fax# [phone]
--- NOTE | 2025-08-30 11:58 | PC.NURSE ---
Final blood culture results faxed to Amara on 2HICU at [facility] where the pt was transferred.
== END 2025-08-27 17:12 | disposition short-term general hospital (02) ==
PROVIDERS: Nurse Practitioner; Emergency Provider Emergency Medicine; PCP Nurse Practitioner
DX: A41.9 Sepsis, unspecified organism (principal); B96.20 Unspecified Escherichia coli [E. coli] as the cause of diseases classified elsewhere; K85.90 Acute pancreatitis without necrosis or infection, unspecified; K83.09 Other cholangitis; R10.84 Generalized abdominal pain; R06.02 Shortness of breath; R07.9 Chest pain, unspecified; R11.2 Nausea with vomiting, unspecified; I10 Essential (primary) hypertension; Z87.891 Personal history of nicotine dependence
CPT/HCPCS: 71045; 71275; 74174; 80053; 80061; 81001; 82803; 83690; 83880; 84484; 85025; 85610; 85730; 86803; 87040; 87077; 87154; 87186; 87389; 93005; 96361; 96365; 96375; 99285; J1171; J1200; J2270; J2405; J2543; J7030; Q9967

== ENCOUNTER 2025-09-22 11:11 | Outpatient (CLI) | payer MEDICARE, OTHER, SELFPAY ==
--- OUTSIDE RECORDS SUMMARY | 2025-08-27 18:38 | XMS_ITS | Encounter Summary ---
Author Organization [facility] Address [address] [place] [address] Care Team Providers Care Woods Superintendent Name Role Phone Lisa Arreola APRN Primary Care Provider [phone] Reason for Visit * Auth/Cert Specialty Diagnoses / Procedures Referred By Jorge t Referred To Contact Diagnoses Pancreatitis (pancreatitis) Referral ID Status Reason Start Date Expiration Date Visits Re quested Visits Authorized [id number] 1 1 Encounter Details Date Type Department Care Team (Late st Contact Info) Description 08/27/2025 6:38 PM EST - 09/05/2025 3:32 PM EST Hospital Encounter [address] [place] [id number] Edilma Mike MD [address] [address] Librado Bangura MD [address] [address] Linda Rubin MD [address] [place] [address] Cristian Mckee DO [address] [place] [address] Flora Baig MD [address] [address] Selena Arias MD 1740 [facility] [address] [place] [address] Acute pancreatitis, unspecified complication status, unspecified pancreatitis type (Primary Dx); Cholecystitis; Oropharyngeal dysphagia Discharge Disposition: Rehab Facility or Unit (DC - External) Social History Tobacco Use Types Packs/Day Years Used Date Smoking Tobacco: Former Cigarettes Q uit: 1989 Smokeless Tobacco: Never Tobacco Cessation:Counseling Given: No Alcohol Use Standard Drinks/Week Comments Never 0 (1 standard drink = 0.6 oz pur e alcohol) AUDIT-C Answer Date Recorded Q1: How often do you have a drink containing alcohol? Never 08/27/2025 Q2: How many drinks containi ng alcohol do you have on a typical day when you are drinking? Patient does not drink Q3: How often do you have si x or more drinks on one occasion? Never 08/27/2025 Overall Financial Resource Strain (CARDIA) Answe r Date Recorded How hard is it for you to pa y for the very basics like food, housing, medical care, and heating? Not hard at all 08/29/2025 [facility] - Occupational Stress Questionnaire Answer Date Recorded Do you feel stress - tense, restless, nervous, or anxious, or unable to sleep at night because your mind is troubled all the time - these days? Not at all 08/29/2025 Exercise Vital Sign Answer Date Recorde d On average, how many days pe r week do you engage in moderate to strenuous exercise (like a brisk walk)? 0 days 08/29/2025 On average, how many minutes do you engage in exercise at this level? 0 min 08/29/2025 Hunger Vital Sign Answer Date Recorded Within the past 12 months, y ou worried that your food would run out before you got the money to buy more. Never true 08/29/20 25 Within the past 12 months, t he food you bought just didn't last and you didn't have money to get more. Never true 08/29/2025 PRAP[facility] - Transportation Answer Date Re corded In the past 12 months, has l ack of transportation kept you from medical appointments or from getting medications? No 08/20 In the past 12 months, has l ack of transportation kept you from meetings, work, or from getting things needed for daily living? No 08/29/2025 [facility] Utilities Answer Date Recorded In the past 12 months has th e electric, gas, oil, or water company threatened to shut off services in your home? No 08/29/2025 Abuse Screen Answer Date Recorded Feels Unsafe at Home or Work/School no 08/27/2025 Feels Threatened by Someone no 05/2025 Does Anyone Try to Keep You From Having Contact with Others or Doing Things Outside Your Home? no 08/27/2025 Physical Signs of Abuse Present no 08/27/2025 Housing Stability Answer Date Recorded Current Living Arrangements home 08/20 Potentially Unsafe Housing Conditions none 08/30/2025 Family and Community Support Answer Kofi e Recorded If for any reason you need h elp with day-to-day activities such as bathing, preparing meals, shopping, managing finances, etc., do you get the help you need? I get all the help I need 08/29/2025 How often do you feel lonely or isolated from those around you? Rarely 08/29/2025 Employment Answer Date Recorded Do you want help finding or keeping work or a job? I do not need or want help 08/29/2025 Disabilities Answer Date Recorded Difficulty Concentrating, Remembering or Making Decisions no 08/27/2025 Difficulty Managing Errands Independently no 08/27/2025 Education Answer Date Recorded Do you want help with school or training? For example, starting or completing job training or getting a high school diploma, GED or equivalent No 08/29/2025 Preferred Language Irish 08/29/2025 PHQ-2 Answer Date Recorded Patient Health Questionnaire-2 Score 0 08/29/2025 Sex and Gender Information Value Date Recorded Sex Assigned at Not on file Legal Sex Male 3:02 PM EST Gender Identity Not on file Sexual Orientation Not on file documented as of this encounter Last Filed Vital Signs Vital Sign Reading Time Taken Comments Blood Pressure 110/53 09/05/2025 2:06 PM EST Pulse 93 09/05/2025 2:06 PM EST Temperature 36.9 C (98.4 F) 09/05/2025 7:34 AM EST Respiratory Rate 18 09/05/2025 7:34 AM EST Oxygen Saturation 96% 09/05/2025 7:34 AM EST Inhaled Oxygen Concentration - - Weight 96.2 kg (212 lb 1.3 oz) 09/02/2025 6:09 P M EST Height 172.7 cm (5' 7.99 ) 09/02/2025 6:09 PM ES T Body Mass Index 32.25 09/02/2025 6:09 PM EST documented in this encounter Functional Status * Over the past 2 weeks, how often have you been bothered by any of the following problems? Question Answer Date of Assessment Author Patient Health Questionnaire -2 Score 0 08/29/2025 10:37 AM EST Félix Azul RN * Question Answer Date of Assessment Author 1. Wish to be (Past 1 Month) No 025 9:46 PM Casi Crowley RN 2. Non-Specific Active Suici eliezer Thoughts (Past 1 Month) No 08/27/2025 9:46 PM Asiya Crowley RN * Calculated C-SSRS Risk Score (Lifetime/Recent) Answer Date of Assessment Author No Risk Indicated 08/27/2025 9:46 PM Casi Voss RN * [place] Suicide Severity Rating Scale (Screener/Recent Self-Report) Question Answer Date of Assessment Author 6. Suicidal Behavior (Lifetime) No 9:46 PM Casi Crowley RN * Question Answer Date of Assessment Author Little interest or pleasure in doing things Not at all 08/29/2025 10:37 AM Félix Farris RN Feeling down, depressed, or hopeless Not at all 08/29/2025 10:37 AM EST Félix Azul RN documented as of this encounter Discharge Summaries * Daryl Schwab RN - 09/05/2025 1:02 PM EST Images from the original note were not included. Loc Thurman (84 y.o. Male) From Daryl Schwab [facility] [id number] Date of 1940 Social Security Number [id number] [place] [address] Gnosticism Sabianism Marital Status Admission Date 08/27/2025 Admission Type Urgent Admitting Provider Selena Arias MD Attending Provider Selena Arias MD Department, Room/Bed [address], S581/1 Discharge Date Discharge Disposition Rehab Facility or Unit (DC - External) Discharge Destination Attending Provider: Selena Arias MD Allergies: No Known Allergies Isolation: None Infection: None Code Status: CPR Ht: 172.7 cm (67.99 ) Wt: 96.2 kg (212 lb 1.3 oz) Admission Cmt: None Principal Problem: Acute pancreatitis [K85.90] Active Insurance as of 08/27/2025 Primary Coverage Payor Plan Insurance Group Employer/Plan Group MEDICARE MEDICARE A & B Payor Plan Address Payor Plan Phone Number Payor Plan Fax Number Effective Dates [address] 11/20/2003 - None Entered [facility] [id number] Subscriber Name Subscriber Date Member ID LOC THURMAN 1940 [id number] Secondary Coverage Payor Plan Insurance Group Employer/Plan Group [employer] Payor Plan Address Payor Plan Phone Number Payor Plan Fax Number Effective Dates [address] [employer] [place] [phone] 10/20/2015 - None Entered [facility] [id number] Subscriber Name Subscriber Date Member ID LOC THURMAN 1940 [id number] Emergency 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 Work Phone Mobile Phone Sarabjit Thurman (Son) -- -- [phone] Alexandru Thurman (Grandchild) -- -- [phone] Discharge Summary Selena Arias MD at 09/05/25 [facility] DISCHARGE SUMMARY Patient Name: Loc Thurman : 1940 Date of Admission: 08/27/2025 6:38 PM Date of Discharge: 09/05/2024 Primary Care Physician: Lisa Arreola APRN Consults Date and Time Order Name Status Description 08/27/2025 8:05 PM Inpatient General Surgery Consult Completed Hospital Course Presenting Problem: acute pancreatitis Active Hospital Problems Diagnosis POA HTN (hypertension) [I10] Yes Mixed hyperlipidemia [E78.2] Yes COPD (chronic obstructive pulmonary disease) [J44.9] Yes Former tobacco use [Z87.891] Not Applicable History of prostate cancer [Z85.46] Not Applicable BPH with obstruction/lower urinary tract symptoms [N40.1, 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 male with COPD, hypertension, hyperlipidemia, high- grade prostate cancerstatus post external beam radiation and hormone therapy and tobacco use who presented for pancreatitis and cholecystitis. He initially was admitted to the floor however decompensated and required IV pressors and was therefore transferred to the ICU. He underwent cholecystectomy with Dr. Jaramillo on 08/28 with drain placement. He was extubated on 08/29. Hospital course complicated by shock/SIRS due toacute pancreatitis as well as CARMITA. Patient had an NG tube in place with tube feeds running. He was transferred to the floor on 09/01. NG tube now removed and he is tolerating a regular diet Respiratory distress-resolved - noted with labored breathing with retractions 09/02, concern for aspiration vs volume overload - BNP elevated - Procal improved - Lactic acid within normal limits - Continue nebs - CXR increased bibasilar airspace opacities, which may be due to atelectasis, pulmonary edema or possible pneumonia, favor pulmonary edema and atelectasis - ECHO showing normal EF with grade 1 diastolic dysfunction - Symptoms improved but still having some orthopnea and required oxygen overnight - s/p IV lasix x 2 days with improvement in his symptoms Acute cholecystitis status post CCY Acute pancreatitis -improving Shock/SIRS-improved - Went to the OR with Dr. Jaramillo on 08/28 for CCY -Path shows chronic cholecystitis with reactive changes -Blood cultures no growth to date - Patient reports pain overall improved, he is tolerating a modified diet. - s/p VARGAS Drain removal 09/01 - s/p zosyn -Okay to rehab from surgical standpoint. Follow-up with Dr. Jaramillo in 4 weeks Dysphagia-resolved - S/p NG with Keofeed and tube feeding discontinued 09/01. - speech following, now on regular diet Hypernatremia- resolved Hypophosphatemia - Replace per protocol Syncope - Patient had syncopal episode on the way to the hospital, was found to have low blood pressure - Likely secondary to sepsis/acute illness - Blood pressures have been stable, home medications have been restarted COPD L sided lung nodule -Not currently in acute exacerbation - pt son reports that prior to his pancreatitis he had a lung nodule biopsy done. The provider called this week and said the biopsy did not look good and that they needed to follow up after his hospitalization for the next steps. Pt and family are unsure what exactly the biopsy showed. Procedure was done at [facility], will need to f/u outpatient. Discussed that pt needed to get well from his hospitalization prior to considering any sort of treatment for possible malignancy - Continue home inhalers Hypertension - Patient's lisinopril restarted, increased to 40 in the ICU - Continue close monitoring Hyperlipidemia - Continue statin High-grade prostate cancer - status post external beam radiation and hormone therapy 2014 - Continue terazosin Discharge Follow Up Recommendations for outpatient labs/diagnostics: PCP, general surgery Day of Discharge HPI: No new overnight issues, breathing well, no abd pain Review of Systems Gen- No fevers, chills CV- No chest pain, palpitations Resp- No cough, dyspnea GI- No N/V/D, abd pain Vital Signs: Temp: [97.8 ??F (36.6 ??C)-98.4 ??F (36.9 ??C)] 98.4 ??F (36.9 ??C) Heart Rate: [75-81] 80 Resp: [16-18] 18 BP: (121-147)/(61-73) 147/66 Flow (L/min) (Oxygen Therapy): [2] 2 Physical Exam: Constitutional: No acute distress, awake, alert HENT: NCAT, mucous membranes moist Respiratory: Clear to auscultation bilaterally, respiratory effort normal Cardiovascular: RRR, no murmurs, rubs, or gallops Gastrointestinal: Positive bowel sounds, soft, nontender, nondistended Musculoskeletal: No bilateral ankle edema Psychiatric: Appropriate affect, cooperative Neurologic: Oriented x 3, strength symmetric in all extremities, Cranial Nerves grossly intact to confrontation, speech clear Skin: No rashes Pertinent and/or Most Recent Results LAB RESULTS: Lab 09/05/25 0435 09/04/25 0518 09/03/25 1357 09/02/25 1543 09/02/25 1436 09/02/25 0543 08/31/25 0338 08/30/25 0403 08/29/25 1618 08/29/25 1316 WBC 11.96* 12.52* 10.70 -- 11.09* 10.84* 13.14* < > -- -- HEMOGLOBIN 9.1* 9.5* 9.3* -- 9.8* 9.6* 9.4* < > -- -- HEMATOCRIT 29.2* 30.9* 30.4* -- 31.2* 30.8* 29.2* < > -- -- PLATELETS 191 162 140 -- 102* 94* 102* < > -- -- NEUTROS ABS -- -- 7.29* -- 9.65* -- 11.30* -- -- -- IMMATURE GRANS (ABS) -- -- 0.49* -- -- -- -- -- -- -- LYMPHS ABS -- -- 1.94 -- -- -- -- -- -- -- MONOS ABS -- -- 0.81 -- -- -- -- -- -- -- EOS ABS -- -- 0.14 -- 0.00 -- 0.26 -- -- -- MCV 97.3* 94.5 95.3 -- 93.4 95.7 93.6 < > -- -- PROCALCITONIN -- -- -- -- 4.27* -- 15.80* -- -- -- LACTATE -- -- -- 1.5 -- -- -- -- 2.3* 2.9* < > = values in this interval not displayed. Lab 09/05/25 04309/04/25 1730 09/04/25 0518 09/03/25 1357 09/03/25 0343 09/02/25 0543 09/01/25 1705 09/01/25 0401 08/31/25 0338 SODIUM 146* -- 145 -- 149* 148* -- 148* 151* POTASSIUM 4.0 4.3 3.5 4.4 3.5 3.7 4.0 3.6 3.2* CHLORIDE 115* -- 113* -- 114* 116* -- 113* 114* CO2 24.0 -- 25.0 -- 23.6 22.5 -- 26.8 28.2 ANION GAP 7.0 -- 7.0 -- 11.4 9.5 -- 8.2 8.8 BUN 18.5 -- 21.0 -- 23.0 22.7 -- 27.2* 29.3* CREATININE 0.72* -- 0.71* -- 0.76 0.69* -- 0.75* 0.77 EGFR 89.0 -- 89.4 -- 87.5 90.1 -- 87.9 87.2 GLUCOSE 110* -- 122* -- 108* 99 -- 108* 114* CALCIUM 7.7* -- 7.9* -- 7.8* 8.2* -- 7.7* 7.8* MAGNESIUM 2.4 -- 2.3 -- 2.2 2.4 -- 2.5* 2.6* PHOSPHORUS -- -- 2.4* -- -- 2.5 2.1* 2.0* 1.7* Lab 09/02/25 0543 09/01/25 0401 08/31/25 0338 08/30/25 0403 TOTAL PROTEIN 5.5* 5.0* 5.1* 5.0* ALBUMIN 3.1* 3.0* 3.0* 2.9* GLOBULIN 2.4 -- 2.1 2.1 ALT (SGPT) 81* 98* 144* 199* AST (SGOT) 42* 38 71* 144* BILIRUBIN 0.8 0.6 0.6 0.7 INDIRECT BILIRUBIN -- 0.1 -- -- BILIRUBIN DIRECT -- 0.5* -- -- ALK PHOS 171* 108 107 93 LIPASE -- -- 110* 137* Lab 09/02/25 1436 PROBNP 9,267.0* Lab 08/29/25 1710 PH, ARTERIAL 7.490* PCO2, ARTERIAL 31.6* PO2 ART 145.0* FIO2 40 HCO3 ART 24.0 BASE EXCESS ART 0.8 CARBOXYHEMOGLOBIN 1.1 Brief Urine Lab Results None Microbiology Results (last 10 days) Procedure Component Value - Date/Time Blood Culture - Blood, Blood, Arterial Line [[id number]] (Normal) Collected: 08/28/25 0638 Lab Status: Final result Specimen: Blood, Arterial Line Updated: 09/02/25 0700 Blood Culture No growth at 5 days Blood Culture - Blood, Hand, Left [[id number]] (Normal) Collected: 08/28/25 0145 Lab Status: Final result Specimen: Blood from Hand, Left Updated: 09/02/25 0645 Blood Culture No growth at 5 days FL Video Swallow With Speech Single Contrast Result Date: 09/02/2025 FL VIDEO SWALLOW W SPEECH SINGLE-CONTRAST Date of Exam: 09/02/2025 11:05 AM EST Indication: aspiration. Comparison: None available. Technique: The speech pathologist administered food and/or liquid mixed with barium to the patient with cine/video imaging. Imaging assistance was provided to the speech pathologist and an image was saved. Fluoroscopic Time: 40 seconds Number of Images: 8 series Findings: Penetration with thin, nectar and honey thickness. There is questionable minimal aspiration with thin barium as well. Impression: Fluoroscopy provided for speech therapy evaluation of swallowing. Penetration with thin, nectar and honey thickness. There is questionable minimal aspiration with thin barium as well. Please see speech therapy report for full detail. Electronically Signed: Delbert Laughlin MD 09/02/2025 12:12 PM EST Workstation ID: [id number] XR Chest 1 View Result Date: 09/02/2025 XR CHEST 1 VW Date of Exam: 09/02/2025 11:37 AM EST Indication: Shortness of breath. Comparison: APchest x-ray 08/29/2025, 08/28/2025; CT abdomen pelvis 08/27/2025 Findings: Lower chest is not entirely included. Known left lower lobe mass seen on 08/27/2025 CT abdomen/pelvis is not well visualized. Increased bibasilar airspace opacities. No pneumothorax is seen. Cardiac silhouette remains enlarged.Endotracheal tube has been removed. Tip of the right internal jugular central venous catheter is stable. Impression: Increased bibasilar airspace opacities, which may be due to atelectasis, pulmonary edema, or possibly pneumonia. Known left lower lobe mass is not well visualized. Electronically Signed: Loraine Bryson MD 09/02/2025 12:03 PM EST Workstation ID: [id number] PSYCH TECH FEES - Fiberoptic Endo Eval Swallow Result Date: 08/31/2025 This procedure was auto-finalized with no dictation required. XR Chest 1 View Result Date: 08/29/2025 XR CHEST 1 VW Date of Exam: 08/29/2025 3:40 AM EST Indication: Respiratory failure. Comparison: 08/28/2025 Findings: Endotracheal tube and right IJ line are in good position. NG tube extends below thediaphragm. Heart size stable. There is slight increased infiltrate or atelectasis at the right lungbase. There are persistent opacities in the left mid to lower lung, and a small left effusion may be present. No pneumothorax. 1.Slight increased infiltrate or atelectasis at the right lung base. 2.Persistent opacities in the left mid to lower lung with possible small left effusion. Electronically Signed: Luís Rodríguez MD 08/29/2025 4:14 AM EST Workstation ID: [id number] FL Cholangiogram Operative Result Date: 08/28/2025 FL CHOLANGIOGRAM OPERATIVE Date of Exam: 08/28/2025 8:29 AM EST Indication: CHOLECYSTECTOMY LAPAROSCOPIC INTRAOPERATIVE CHOLANGIOGRAM. Comparison: CT abdomen pelvis 08/27/2025 Technique: Digital spot images were obtained from an intraoperative cholangiogram procedure performed by the surgeon. Fluoroscopic Time: 39 seconds Number of Images: 3 Findings: Fluoroscopic images saved during intraoperativecholangiogram. Cannulated cystic duct. Injection of contrast reveals dilation of the common bile duct without filling defects to suggest choledocholithiasis. There is reflux of contrast into the pancreatic ducts with probable prominent accessory sidebranch less likely incomplete pancreatic divisum.Pancreatic ducts appear dilated. No significant intrapelvic duct dilation. Contrast progresses intothe duodenum as expected. Impression: Images saved during intraoperative cholangiogram, see operative report for further detail. Electronically Signed: Brian Crandall MD 08/28/2025 3:24 PM EST Workstation ID: [id number] XR Chest 1 View Result Date: 08/28/2025 XR CHEST 1 VW Date of Exam: 08/28/2025 10:09 AM EST Indication: tube placement. Comparison: 08/28/2025 Findings: Intubation with the endotracheal tube tip 5 cm above the justa. Placement of an esophagogastric tube with the tip below the diaphragm. Right IJ central venous catheter again noted with the tip at the cavoatrial junction. Heart size normal. Left lower lobe mass and left basilar pulmonarynodules better assessed on recent CT. Suspect mild left basilar atelectasis. No pneumothorax. Impression: 1.Intubation with ET tube tip 5 cm above the justa. 2.Placement of esophagogastric tube with tip below the diaphragm. 3.Stable right IJ central venous catheter. 4.Left lower lobe mass and left basilar pulmonary nodules better assessed on recent CT. 5.Bibasilar atelectasis left greater than right. No pneumothorax. Electronically Signed: Stephen Toussaint MD 08/28/2025 11:08 AM EST Workstation ID: [id number] XR Abdomen KUB Result Date: 08/28/2025 XR ABDOMEN KUB Date of Exam: 08/28/2025 9:53 AM EST Indication: Eval NG. Comparison: CT abdomen and pelvis 08/27/2025 Findings: Placement of esophagogastric tube. The tip overlies the expected locationof the mid body of the stomach. Nonspecific bowel gas pattern. Left basilar airspace disease again noted better assessed on recent CT. Impression: NG tube tip overlies the mid body of the stomach. Electronically Signed: Stephen Toussaint MD 08/28/2025 10:53 AM EST Workstation ID: [id number] XR Chest 1 View Result Date: 08/28/2025 XR CHEST 1 VW Date of Exam: 08/28/2025 5:23 AM EST Indication: central line placement. Comparison: 08/27/2025. Findings: Right internal jugular CVC catheter present with the tip in the proximal SVC. There are no airspace consolidations. No pleural fluid. No pneumothorax. Nodular opacities within the left lung base on CT are not appreciated on this study. The pulmonary vasculature appears within normal limits. The cardiac and mediastinal silhouette appear unremarkable. No acute osseous abnormalityidentified. Impression: Right internal jugular CVC catheter with the tip in the proximal SVC. No pneumothorax. No acute cardiopulmonary process. Electronically Signed: Nena Encarnacion MD 08/28/2025 5:45 AM EST Workstation ID: [id number] CT Abdomen Pelvis Without Contrast Result Date: 08/27/2025 CT ABDOMEN PELVIS WO CONTRAST Date of Exam: 08/27/2025 10:08 PM EST Indication: Evaluate pancreatitis, possible cholecystitis. Comparison: None available. Technique: Axial CT images were obtained of the abdomen and pelvis without the administration of contrast. Reconstructed coronal and sagittal images were also obtained. Automated exposure control and iterative construction methods were used. Findings: Lung Bases: There is a mass present within the left lower lobe near the base measuring 2.7 x 3.4 cm (series 4 image 17). An additional adjacent pleural-based nodule is present measuring up to 1.3 cm (series 4 image 17). Surrounding smaller nodules are present. Right lung base is clear. No sign ificant effusion. Limited evaluation of the solid organs due to lack of intravenous contrast. Limited evaluation of the hollow organs due to lack of oral contrast. Liver: Liver appears enlarged. No definite focal lesions. No evidence of ascites. Biliary/Gallbladder: The gallbladder is significantly dilated. Wall thickening is present with significant stranding and free fluid present. No definite gallstone identified. There is dilatation of the common bile duct measuring up to 1.4 cm. This extends to the ampulla. Stranding is seen surrounding the common bile duct. Spleen: Spleen is normal in size and CT density. Pancreas: No significant stranding identified surrounding the pancreas. No evidence of ductal dilatation. No focal mass or abnormal collection identified.. Kidneys: Kidneys are normal in size. Nonobstructing renal calculi are present bilaterally. No obstructing calculus identified. No evidence of hydronephrosis. Adrenals: Adrenal glands are unremarkable. Retroperitoneal/Lymph Nodes/Vasculature: No retroperitoneal adenopathy is identified. Gastrointestinal/Mesentery: The bowelloops are non-dilated without wall thickening or mass. Currie colonic diverticulosis is present. No significant inflammatory changes present. The appendix is not visualized.. No evidence of obstruction.No free air. No mesenteric fluid collections identified. Mesenteric vasculature appears unremarkable. No evidence of hernia. No significant stool burden. Bladder: The bladder is normal. Genital: Unremarkable Bony Structures: Visualized bony structures are consistent with the patient's age. No acute osseous abnormality. Impression: 1.Findings consistent with acute cholecystitis with significant dilatation of the gallbladder with wall thickening and significant stranding and free fluid present. No definite gallstone identified. There is dilatation of the common bile duct extending to the ampulla with stranding seensurrounding the common bile duct. 2.Mass present within the left lower lobe near the base measuringup to 3.4 cm with surrounding smaller nodules. Findings are suspicious for malignancy. No previous imaging available for comparison. 3.Ancillary findings as described above. Electronically Signed: Nena Encarnacion MD 08/27/2025 10:25 PM EST Workstation ID: [id number] Results for orders placed during the hospital encounter of 08/27/25 Adult Transthoracic Echo Complete W/ Cont if Necessary Per Protocol 09/03/2025 9:24 AM Interpretation Summary Left ventricular systolic function is normal. Calculated left ventricular EF = 67.2% Left ventricular ejection fraction appears to be 66 - 70%. Left ventricular wall thickness is consistent with mild concentric hypertrophy. Left ventricular diastolic function is consistent with (grade I) impaired relaxation. There is moderate calcification of the aortic valve. Estimated right ventricular systolic pressure from tricuspid regurgitation is mildly elevated (35-45 mmHg). Calculated right ventricular systolic pressure from tricuspid regurgitation is 35 mmHg. There is a trivial pericardial effusion. I have personally reviewed the therapy plans: [] PT/OT/ ST Therapy Plans Plan for Follow-up of Pending Labs/Results: no pending results Discharge Details Discharge Medications Changes to Medications Instructions Start Date lisinopril 40 MG tablet Commonly known as: PRINIVIL,ZESTRIL What changed: medication strength how much to take when to take this 40 mg, Oral, Every 24 Hours Scheduled Start Date: September 06, 2025 Continue These Medications Instructions Start Date albuterol sulfate HFA 108 (90 Base) MCG/ACT inhaler Commonly known as: PROVENTIL HFA;VENTOLIN HFA;PROAIR HFA 2 puffs, Inhalation, Every 4 Hours PRN Bevespi Aerosphere 9-4.8 MCG/ACT aerosol Generic drug: Glycopyrrolate-Formoterol 2 puffs, Inhalation, 2 Times Daily cetirizine 10 MG tablet Commonly known as: zyrTEC 10 mg, Oral, Daily diphenhydrAMINE 25 mg capsule Commonly known as: BENADRYL 25 mg, Nightly PRN docusate sodium 100 MG capsule Commonly known as: COLACE 100 mg, Oral, Daily PRN doxazosin 4 MG tablet Commonly known as: CARDURA 4 mg, Oral, Nightly ferrous sulfate 325 (65 FE) MG tablet 325 mg, Oral, 2 Times Daily montelukast 10 MG tablet Commonly known as: SINGULAIR 10 mg, Nightly omeprazole 20 MG capsule Commonly known as: priLOSEC 20 mg, Daily vitamin B-12 1000 MCG tablet Commonly known as: CYANOCOBALAMIN 1,000 mcg, Daily vitamin C 250 MG tablet Commonly known as: ASCORBIC ACID 250 mg, Daily No Known Allergies Discharge Disposition: Rehab Facility or Unit (DC - External)rehab Diet: Hospital: Diet Order Procedures Diet: Regular/House, Cardiac; Healthy Heart (2-3 Na+); Texture: Soft to Chew (NDD 3); Soft to Chew:Chopped Meat; Fluid Consistency: Thin (IDDSI 0) CHIN TUCK WITH ALL PO PO meds as tolerated Standing Status: Standing Number of Occurrences: 1 Diets:: Regular/House Diets:: Cardiac Cardiac Diet:: Healthy Heart (2-3 Na+) Texture:: Soft to Chew (NDD 3) Soft to Chew:: Chopped Meat Fluid Consistency:: Thin (IDDSI 0) Activity: as tolerated Restrictions or Other Recommendations: none CODE STATUS: Code Status and Medical Interventions: CPR (Attempt to Resuscitate); Full Support Ordered at: 08/27/252004 Code Status (Patient has no pulse and is not breathing): CPR (Attempt to Resuscitate) Medical Interventions (Patient has pulse or is breathing): Full Support Level Of Support Discussed With: Patient No future appointments. Selena Arias MD 09/05/25 Time Spent on Discharge: I spent 45 minutes on this discharge activity which included: [id number] with the patient, reviewing the data in the system, coordination of the care with the nursing staff as well as consultants, documentation, and entering orders. [id number] * Selena Arias MD - 09/05/2025 12:49 PM EST Images from the original note were not included. [facility] DISCHARGE SUMMARY Patient Name: Loc Thurman : 1940 Date of Admission: 08/27/2025 6:38 PM Date of Discharge: 09/05/2024 Primary Care Physician: Lisa Arreola APRN Consults Date and Time Order Name Status Description 08/27/2025 8:05 PM Inpatient General Surgery Consult Completed Hospital Course Presenting Problem: acute pancreatitis Active Hospital Problems Diagnosis POA ??? HTN (hypertension) [I10] Yes ??? Mixed hyperlipidemia [E78.2] Yes ??? COPD (chronic obstructive pulmonary disease) [J44.9] Yes ??? Former tobacco use [Z87.891] Not Applicable ??? History of prostate cancer [Z85.46] Not Applicable ??? BPH with obstruction/lower urinary tract symptoms [N40.1, N13.8] Yes Resolved Hospital Problems Diagnosis Date Resolved POA ??? Acute pancreatitis [K85.90] 09/05/2025 Yes ??? Respiratory insufficiency [R06.89] 09/05/2025 Yes ??? Shock [R57.9] 09/05/2025 Unknown ??? Vasovagal syncope [R55] 09/05/2025 Yes Hospital Course: Loc Thurman is a 84 y.o. male with COPD, hypertension, hyperlipidemia, high- grade prostate cancerstatus post external beam radiation and hormone therapy and tobacco use who presented for pancreatitis and cholecystitis. He initially was admitted to the floor however decompensated and required IV pressors and was therefore transferred to the ICU. He underwent cholecystectomy with Dr. Jaramillo on 08/28 with drain placement. He was extubated on 08/29. Hospital course complicated by shock/SIRS due toacute pancreatitis as well as CARMITA. Patient had an NG tube in place with tube feeds running. He was transferred to the floor on 09/01. NG tube now removed and he is tolerating a regular diet Respiratory distress-resolved - noted with labored breathing with retractions 09/02, concern for aspiration vs volume overload - BNP elevated - Procal improved - Lactic acid within normal limits - Continue nebs - CXR increased bibasilar airspace opacities, which may be due to atelectasis, pulmonary edema or possible pneumonia, favor pulmonary edema and atelectasis - ECHO showing normal EF with grade 1 diastolic dysfunction - Symptoms improved but still having some orthopnea and required oxygen overnight - s/p IV lasix x 2 days with improvement in his symptoms Acute cholecystitis status post CCY Acute pancreatitis -improving Shock/SIRS-improved - Went to the OR with Dr. Jaramillo on 08/28 for CCY -Path shows chronic cholecystitis with reactive changes -Blood cultures no growth to date - Patient reports pain overall improved, he is tolerating a modified diet. - s/p VARGAS Drain removal 09/01 - s/p zosyn -Okay to rehab from surgical standpoint. Follow-up with Dr. Jaramillo in 4 weeks Dysphagia-resolved - S/p NG with Keofeed and tube feeding discontinued 09/01. - speech following, now on regular diet Hypernatremia- resolved Hypophosphatemia - Replace per protocol Syncope - Patient had syncopal episode on the way to the hospital, was found to have low blood pressure - Likely secondary to sepsis/acute illness - Blood pressures have been stable, home medications have been restarted COPD L sided lung nodule -Not currently in acute exacerbation - pt son reports that prior to his pancreatitis he had a lung nodule biopsy done. The provider called this week and said the biopsy did not look good and that they needed to follow up after his hospitalization for the next steps. Pt and family are unsure what exactly the biopsy showed. Procedure was done at [facility], will need to f/u outpatient. Discussed that pt needed to get well from his hospitalization prior to considering any sort of treatment for possible malignancy - Continue home inhalers Hypertension - Patient's lisinopril restarted, increased to 40 in the ICU - Continue close monitoring Hyperlipidemia - Continue statin High-grade prostate cancer - status post external beam radiation and hormone therapy 2014 - Continue terazosin Discharge Follow Up Recommendations for outpatient labs/diagnostics: PCP, general surgery Day of Discharge HPI: No new overnight issues, breathing well, no abd pain Review of Systems Gen- No fevers, chills CV- No chest pain, palpitations Resp- No cough, dyspnea GI- No N/V/D, abd pain Vital Signs: Temp: [97.8 ??F (36.6 ??C)-98.4 ??F (36.9 ??C)] 98.4 ??F (36.9 ??C) Heart Rate: [75-81] 80 Resp: [16-18] 18 BP: (121-147)/(61-73) 147/66 Flow (L/min) (Oxygen Therapy): [2] 2 Physical Exam: Constitutional: No acute distress, awake, alert HENT: NCAT, mucous membranes moist Respiratory: Clear to auscultation bilaterally, respiratory effort normal Cardiovascular: RRR, no murmurs, rubs, or gallops Gastrointestinal: Positive bowel sounds, soft, nontender, nondistended Musculoskeletal: No bilateral ankle edema Psychiatric: Appropriate affect, cooperative Neurologic: Oriented x 3, strength symmetric in all extremities, Cranial Nerves grossly intact to confrontation, speech clear Skin: No rashes Pertinent and/or Most Recent Results LAB RESULTS: Lab 09/05/25 0435 09/04/25 0518 09/03/25 1357 09/02/25 1543 09/02/25 1436 09/02/25 0543 08/31/25 0338 08/30/25 0403 08/29/25 1618 08/29/25 1316 WBC 11.96* 12.52* 10.70 -- 11.09* 10.84* 13.14* < > -- -- HEMOGLOBIN 9.1* 9.5* 9.3* -- 9.8* 9.6* 9.4* < > -- -- HEMATOCRIT 29.2* 30.9* 30.4* -- 31.2* 30.8* 29.2* < > -- -- PLATELETS 191 162 140 -- 102* 94* 102* < > -- -- NEUTROS ABS -- -- 7.29* -- 9.65* -- 11.30* -- -- -- IMMATURE GRANS (ABS) -- -- 0.49* -- -- -- -- -- -- -- LYMPHS ABS -- -- 1.94 -- -- -- -- -- -- -- MONOS ABS -- -- 0.81 -- -- -- -- -- -- -- EOS ABS -- -- 0.14 -- 0.00 -- 0.26 -- -- -- MCV 97.3* 94.5 95.3 -- 93.4 95.7 93.6 < > -- -- PROCALCITONIN -- -- -- -- 4.27* -- 15.80* -- -- -- LACTATE -- -- -- 1.5 -- -- -- -- 2.3* 2.9* < > = values in this interval not displayed. Lab 09/05/25 0435 09/04/25 1730 09/04/25 0518 09/03/25 1357 09/03/25 0343 09/02/25 0543 09/01/25 1705 09/01/2540008/31/25337 SODIUM 146* -- 145 -- 149* 148* -- 148* 151* POTASSIUM 4.0 4.3 3.5 4.4 3.5 3.7 4.0 3.6 3.2* CHLORIDE 115* -- 113* -- 114* 116* -- 113* 114* CO2 24.0 -- 25.0 -- 23.6 22.5 -- 26.8 28.2 ANION GAP 7.0 -- 7.0 -- 11.4 9.5 -- 8.2 8.8 BUN 18.5 -- 21.0 -- 23.0 22.7 -- 27.2* 29.3* CREATININE 0.72* -- 0.71* -- 0.76 0.69* -- 0.75* 0.77 EGFR 89.0 -- 89.4 -- 87.5 90.1 -- 87.9 87.2 GLUCOSE 110* -- 122* -- 108* 99 -- 108* 114* CALCIUM 7.7* -- 7.9* -- 7.8* 8.2* -- 7.7* 7.8* MAGNESIUM 2.4 -- 2.3 -- 2.2 2.4 -- 2.5* 2.6* PHOSPHORUS -- -- 2.4* -- -- 2.5 2.1* 2.0* 1.7* Lab 09/02/25 0543 09/01/25 04008/31/2533708/30/25402 TOTAL PROTEIN 5.5* 5.0* 5.1* 5.0* ALBUMIN 3.1* 3.0* 3.0* 2.9* GLOBULIN 2.4 -- 2.1 2.1 ALT (SGPT) 81* 98* 144* 199* AST (SGOT) 42* 38 71* 144* BILIRUBIN 0.8 0.6 0.6 0.7 INDIRECT BILIRUBIN -- 0.1 -- -- BILIRUBIN DIRECT -- 0.5* -- -- ALK PHOS 171* 108 107 93 LIPASE -- -- 110* 137* Lab 09/02/25 1436 PROBNP 9,267.0* Lab 08/29/25 1710 PH, ARTERIAL 7.490* PCO2, ARTERIAL 31.6* PO2 ART 145.0* FIO2 40 HCO3 ART 24.0 BASE EXCESS ART 0.8 CARBOXYHEMOGLOBIN 1.1 Brief Urine Lab Results None Microbiology Results (last 10 days) Procedure Component Value - Date/Time Blood Culture - Blood, Blood, Arterial Line [[id number]] (Normal) Collected: 08/28/25 0638 Lab Status: Final result Specimen: Blood, Arterial Line Updated: 09/02/25 0700 Blood Culture No growth at 5 days Blood Culture - Blood, Hand, Left [[id number]] (Normal) Collected: 08/28/25 0145 Lab Status: Final result Specimen: Blood from Hand, Left Updated: 09/02/25 0645 Blood Culture No growth at 5 days FL Video Swallow With Speech Single Contrast Result Date: 09/02/2025 FL VIDEO SWALLOW W SPEECH SINGLE-CONTRAST Date of Exam: 09/02/2025 11:05 AM EST Indication: aspiration. Comparison: None available. Technique: The speech pathologist administered food and/or liquid mixed with barium to the patient with cine/video imaging. Imaging assistance was provided to the speech pathologist and an image was saved. Fluoroscopic Time: 40 seconds Number of Images: 8 series Findings: Penetration with thin, nectar and honey thickness. There is questionable minimal aspiration with thin barium as well. Impression: Fluoroscopy provided for speech therapy evaluation of swallowing. Penetration with thin, nectar and honey thickness. There is questionable minimal aspiration with thin barium as well. Please see speech therapy report for full detail. Electronically Signed: Delbert Laughlin MD 09/02/2025 12:12 PM EST Workstation ID: [id number] XR Chest 1 View Result Date: 09/02/2025 XR CHEST 1 VW Date of Exam: 09/02/2025 11:37 AM EST Indication: Shortness of breath. Comparison: APchest x-ray 08/29/2025, 08/28/2025; CT abdomen pelvis 08/27/2025 Findings: Lower chest is not entirely included. Known left lower lobe mass seen on 08/27/2025 CT abdomen/pelvis is not well visualized. Increased bibasilar airspace opacities. No pneumothorax is seen. Cardiac silhouette remains enlarged.Endotracheal tube has been removed. Tip of the right internal jugular central venous catheter is stable. Impression: Increased bibasilar airspace opacities, which may be due to atelectasis, pulmonary edema, or possibly pneumonia. Known left lower lobe mass is not well visualized. Electronically Signed: Loraine Bryson MD 09/02/2025 12:03 PM EST Workstation ID: [id number] PSYCH TECH FEES - Fiberoptic Endo Eval Swallow Result Date: 08/31/2025 This procedure was auto-finalized with no dictation required. XR Chest 1 View Result Date: 08/29/2025 XR CHEST 1 VW Date of Exam: 08/29/2025 3:40 AM EST Indication: Respiratory failure. Comparison: 08/28/2025 Findings: Endotracheal tube and right IJ line are in good position. NG tube extends below thediaphragm. Heart size stable. There is slight increased infiltrate or atelectasis at the right lungbase. There are persistent opacities in the left mid to lower lung, and a small left effusion may be present. No pneumothorax. 1.Slight increased infiltrate or atelectasis at the right lung base. 2.Persistent opacities in the left mid to lower lung with possible small left effusion. Electronically Signed: Luís Rodríguez MD 08/29/2025 4:14 AM EST Workstation ID: [id number] FL Cholangiogram Operative Result Date: 08/28/2025 FL CHOLANGIOGRAM OPERATIVE Date of Exam: 08/28/2025 8:29 AM EST Indication: CHOLECYSTECTOMY LAPAROSCOPIC INTRAOPERATIVE CHOLANGIOGRAM. Comparison: CT abdomen pelvis 08/27/2025 Technique: Digital spot images were obtained from an intraoperative cholangiogram procedure performed by the surgeon. Fluoroscopic Time: 39 seconds Number of Images: 3 Findings: Fluoroscopic images saved during intraoperativecholangiogram. Cannulated cystic duct. Injection of contrast reveals dilation of the common bile duct without filling defects to suggest choledocholithiasis. There is reflux of contrast into the pancreatic ducts with probable prominent accessory sidebranch less likely incomplete pancreatic divisum.Pancreatic ducts appear dilated. No significant intrapelvic duct dilation. Contrast progresses intothe duodenum as expected. Impression: Images saved during intraoperative cholangiogram, see operative report for further detail. Electronically Signed: Brian Crandall MD 08/28/2025 3:24 PM EST Workstation ID: [id number] XR Chest 1 View Result Date: 08/28/2025 XR CHEST 1 VW Date of Exam: 08/28/2025 10:09 AM EST Indication: tube placement. Comparison: 08/28/2025 Findings: Intubation with the endotracheal tube tip 5 cm above the justa. Placement of an esophagogastric tube with the tip below the diaphragm. Right IJ central venous catheter again noted with the tip at the cavoatrial junction. Heart size normal. Left lower lobe mass and left basilar pulmonarynodules better assessed on recent CT. Suspect mild left basilar atelectasis. No pneumothorax. Impression: 1.Intubation with ET tube tip 5 cm above the justa. 2.Placement of esophagogastric tube with tip below the diaphragm. 3.Stable right IJ central venous catheter. 4.Left lower lobe mass and left basilar pulmonary nodules better assessed on recent CT. 5.Bibasilar atelectasis left greater than right. No pneumothorax. Electronically Signed: Stephen Toussaint MD 08/28/2025 11:08 AM EST Workstation ID: [id number] XR Abdomen KUB Result Date: 08/28/2025 XR ABDOMEN KUB Date of Exam: 08/28/2025 9:53 AM EST Indication: Eval NG. Comparison: CT abdomen and pelvis 08/27/2025 Findings: Placement of esophagogastric tube. The tip overlies the expected locationof the mid body of the stomach. Nonspecific bowel gas pattern. Left basilar airspace disease again noted better assessed on recent CT. Impression: NG tube tip overlies the mid body of the stomach. Electronically Signed: Stephen Toussaint MD 08/28/2025 10:53 AM EST Workstation ID: [id number] XR Chest 1 View Result Date: 08/28/2025 XR CHEST 1 VW Date of Exam: 08/28/2025 5:23 AM EST Indication: central line placement. Comparison: 08/27/2025. Findings: Right internal jugular CVC catheter present with the tip in the proximal SVC. There are no airspace consolidations. No pleural fluid. No pneumothorax. Nodular opacities within the left lung base on CT are not appreciated on this study. The pulmonary vasculature appears within normal limits. The cardiac and mediastinal silhouette appear unremarkable. No acute osseous abnormalityidentified. Impression: Right internal jugular CVC catheter with the tip in the proximal SVC. No pneumothorax. No acute cardiopulmonary process. Electronically Signed: Nena Encarnacion MD 08/28/2025 5:45 AM EST Workstation ID: [id number] CT Abdomen Pelvis Without Contrast Result Date: 08/27/2025 CT ABDOMEN PELVIS WO CONTRAST Date of Exam: 08/27/2025 10:08 PM EST Indication: Evaluate pancreatitis, possible cholecystitis. Comparison: None available. Technique: Axial CT images were obtained of the abdomen and pelvis without the administration of contrast. Reconstructed coronal and sagittal images were also obtained. Automated exposure control and iterative construction methods were used. Findings: Lung Bases: There is a mass present within the left lower lobe near the base measuring 2.7 x 3.4 cm (series 4 image 17). An additional adjacent pleural-based nodule is present measuring up to 1.3 cm (series 4 image 17). Surrounding smaller nodules are present. Right lung base is clear. No sign ificant effusion. Limited evaluation of the solid organs due to lack of intravenous contrast. Limited evaluation of the hollow organs due to lack of oral contrast. Liver: Liver appears enlarged. No definite focal lesions. No evidence of ascites. Biliary/Gallbladder: The gallbladder is significantly dilated. Wall thickening is present with significant stranding and free fluid present. No definite gallstone identified. There is dilatation of the common bile duct measuring up to 1.4 cm. This extends to the ampulla. Stranding is seen surrounding the common bile duct. Spleen: Spleen is normal in size and CT density. Pancreas: No significant stranding identified surrounding the pancreas. No evidence of ductal dilatation. No focal mass or abnormal collection identified.. Kidneys: Kidneys are normal in size. Nonobstructing renal calculi are present bilaterally. No obstructing calculus identified. No evidence of hydronephrosis. Adrenals: Adrenal glands are unremarkable. Retroperitoneal/Lymph Nodes/Vasculature: No retroperitoneal adenopathy is identified. Gastrointestinal/Mesentery: The bowelloops are non-dilated without wall thickening or mass. Currie colonic diverticulosis is present. No significant inflammatory changes present. The appendix is not visualized.. No evidence of obstruction.No free air. No mesenteric fluid collections identified. Mesenteric vasculature appears unremarkable. No evidence of hernia. No significant stool burden. Bladder: The bladder is normal. Genital: Unremarkable Bony Structures: Visualized bony structures are consistent with the patient's age. No acute osseous abnormality. Impression: 1.Findings consistent with acute cholecystitis with significant dilatation of the gallbladder with wall thickening and significant stranding and free fluid present. No definite gallstone identified. There is dilatation of the common bile duct extending to the ampulla with stranding seensurrounding the common bile duct. 2.Mass present within the left lower lobe near the base measuringup to 3.4 cm with surrounding smaller nodules. Findings are suspicious for malignancy. No previous imaging available for comparison. 3.Ancillary findings as described above. Electronically Signed: Nena Encarnacion MD 08/27/2025 10:25 PM EST Workstation ID: [id number] Results for orders placed during the hospital encounter of 08/27/25 Adult Transthoracic Echo Complete W/ Cont if Necessary Per Protocol 09/03/2025 9:24 AM Interpretation Summary ??? Left ventricular systolic function is normal. Calculated left ventricular EF = 67.2% Left ventricular ejection fraction appears to be 66 - 70%. ??? Left ventricular wall thickness is consistent with mild concentric hypertrophy. ??? Left ventricular diastolic function is consistent with (grade I) impaired relaxation. ??? There is moderate calcification of the aortic valve. ??? Estimated right ventricular systolic pressure from tricuspid regurgitation is mildly elevated (35-45 mmHg). Calculated right ventricular systolic pressure from tricuspid regurgitation is 35 mmHg. ??? There is a trivial pericardial effusion. I have personally reviewed the therapy plans: [] PT/OT/ ST Therapy Plans Plan for Follow-up of Pending Labs/Results: no pending results Discharge Details Discharge Medications Changes to Medications Instructions Start Date lisinopril 40 MG tablet Commonly known as: PRINIVIL,ZESTRIL What changed: medication strength how much to take when to take this 40 mg, Oral, Every 24 Hours Scheduled Start Date: September 06, 2025 Continue These Medications Instructions Start Date albuterol sulfate HFA 108 (90 Base) MCG/ACT inhaler Commonly known as: PROVENTIL HFA;VENTOLIN HFA;PROAIR HFA 2 puffs, Inhalation, Every 4 Hours PRN Bevespi Aerosphere 9-4.8 MCG/ACT aerosol Generic drug: Glycopyrrolate-Formoterol 2 puffs, Inhalation, 2 Times Daily cetirizine 10 MG tablet Commonly known as: zyrTEC 10 mg, Oral, Daily diphenhydrAMINE 25 mg capsule Commonly known as: BENADRYL 25 mg, Nightly PRN docusate sodium 100 MG capsule Commonly known as: COLACE 100 mg, Oral, Daily PRN doxazosin 4 MG tablet Commonly known as: CARDURA 4 mg, Oral, Nightly ferrous sulfate 325 (65 FE) MG tablet 325 mg, Oral, 2 Times Daily montelukast 10 MG tablet Commonly known as: SINGULAIR 10 mg, Nightly omeprazole 20 MG capsule Commonly known as: priLOSEC 20 mg, Daily vitamin B-12 1000 MCG tablet Commonly known as: CYANOCOBALAMIN 1,000 mcg, Daily vitamin C 250 MG tablet Commonly known as: ASCORBIC ACID 250 mg, Daily No Known Allergies Discharge Disposition: Rehab Facility or Unit (DC - External)rehab Diet: Hospital: Diet Order Procedures ??? Diet: Regular/House, Cardiac; Healthy Heart (2-3 Na+); Texture: Soft to Chew (NDD 3); Soft to Chew: Chopped Meat; Fluid Consistency: Thin (IDDSI 0) CHIN TUCK WITH ALL PO PO meds as tolerated Standing Status: Standing Number of Occurrences: 1 Diets:: Regular/House Diets:: Cardiac Cardiac Diet:: Healthy Heart (2-3 Na+) Texture:: Soft to Chew (NDD 3) Soft to Chew:: Chopped Meat Fluid Consistency:: Thin (IDDSI 0) Activity: as tolerated Restrictions or Other Recommendations: none CODE STATUS: Code Status and Medical Interventions: CPR (Attempt to Resuscitate); Full Support Ordered at: 08/27/252004 Code Status (Patient has no pulse and is not breathing): CPR (Attempt to Resuscitate) Medical Interventions (Patient has pulse or is breathing): Full Support Level Of Support Discussed With: Patient No future appointments. Selena Arias MD 09/05/25 Time Spent on Discharge: I spent 45 minutes on this discharge activity which included: [id number] with the patient, reviewing the data in the system, coordination of the care with the nursing staff as well as consultants, documentation, and entering orders. * Daryl Schwab RN - 09/02/2025 1:08 PM EST Images from the original note were not included. Loc Thurman (84 y.o. Male) From Daryl Schwab RN [id number] Date of 1940 Social Security Number [id number] Address [address] [place] [address] Gnosticism Sabianism Marital Status Admission Date 08/27/2025 Admission Type Urgent Admitting Provider Flora Baig MD Attending Provider Flora Baig MD Department, Room/Bed [address], S581/1 Discharge Date Discharge Disposition Discharge Destination Attending Provider: Flora Baig MD Allergies: No Known Allergies Isolation: None Infection: None Code Status: CPR Ht: 172.7 cm (67.99 ) Wt: 96.2 kg (212 lb) Admission Cmt: None Principal Problem: Acute pancreatitis [K85.90] Active Insurance as of 08/27/2025 Primary Coverage Payor Plan Insurance Group Employer/Plan Group MEDICARE MEDICARE A & B Payor Plan Address Payor Plan Phone Number Payor Plan Fax Number Effective Dates [address] 11/20/2003 - None Entered [facility] [id number] Subscriber Name Subscriber Date Member ID LOC THURMAN 1940 [id number] Secondary Coverage Payor Plan Insurance Group Employer/Plan Group [facility] Payor Plan Address Payor Plan Phone Number Payor Plan Fax Number Effective Dates [address] [phone] 10/20/2015 - None Entered [facility] [id number] Subscriber Name Subscriber Date Member ID LOC THURMAN 1940 [id number] 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 Inpatient General Surgery Consult [[id number]] ordered by Nesha Lopes APRN at 08/27/252003 Patient Name: Loc Thurman Date of : 1940 [id number] Patient Care Team: Provider, No Known as PCP - General General Surgery Consult Note Date of Consultation: 08/27/25 Referring Physician : Librado Bangura MD Reason for Consult : Pancreatitis Subjective I have been asked by Librado Bangura MD to see Loc Thurman , a 84 y.o. male in consultation for pancreatitis. Mr. Thurman has a known history of COPD, a past history of pancreatitis, hypertension, prostate cancer status post XRT, hypercholesterolemia, and a relatively newly diagnosed left lung mass. He underwent bronchoscopy at [facility] yesterday. He states postoperatively he did well and was discharged home. He states he had trouble sleeping last night. This morning he had some coughing as well as some scant hemoptysis which he was told to expect after this procedure. He ate breakfast and then began a bandlike pain in his upper abdomen which radiated to his back. This wasassociated with some nausea. He had had a history of pancreatitis approximately 10 years prior. Dueto the severity of his pain he presented to an outside hospital. Subsequent evaluation there demonstrated a lipase of 11,[address] scanning of the chest abdomen pelvis revealed evidence of a distended gallbladder with questionable gallbladder wall thickening and pericholecystic fluid. He was transferred to our facility for higher level of care. Currently is relaxing in bed though he does report some upper abdominal pain. No other current complaints. Allergy: No Known Allergies Medications: [Held by provider] lisinopril, 15 mg, Oral, BID montelukast, 10 mg, Oral, Nightly [START ON 08/28/2025] pantoprazole, 40 mg, Oral, Q AM piperacillin-tazobactam, 3.375 g, Intravenous, Once [START ON 08/28/2025] piperacillin-tazobactam, 3.375 g, Intravenous, Q8H potassium chloride ER, 20 mEq, Oral, Once sodium chloride, 1,000 mL, Intravenous, Once sodium chloride, 10 mL, Intravenous, Q12H sodium chloride, 100 mL/hr No current facility-administered medications on file prior to encounter. Current Outpatient Medications on File Prior to Encounter Medication Sig albuterol sulfate HFA 108 (90 Base) MCG/ACT inhaler Inhale 2 puffs Every 4 (Four) Hours As Needed for Wheezing. cetirizine (zyrTEC) 5 MG tablet Take 1 tablet by mouth Daily. Glycopyrrolate-Formoterol (Bevespi Aerosphere) 9-4.8 MCG/ACT aerosol Inhale. lisinopril (PRINIVIL,ZESTRIL) 10 MG tablet Take 1.5 tablets by mouth 2 (Two) Times a Day. montelukast (SINGULAIR) 10 MG tablet Take 1 tablet by mouth Every Night. omeprazole (priLOSEC) 20 MG capsule Take 1 capsule by mouth Daily. PMHx: Hypertension Hypercholesterolemia COPD History of pancreatitis Prostate cancer status post radiation Past Surgical History: Open appendectomy Bilateral inguinal hernia repairs Cataracts Family History: Significant for cancers Social History: Pt lives in [facility]. Tobacco use: Denies , quit 35 years ago EtOH use : Denies Illicit drug use: Denies Review of Systems Constitutional: No fevers, chills or malaise Eyes: Denies visual changes Cardiovascular: Denies chest pain, palpitations Pulmonary: Denies cough or shortness of breath Abdominal/ GI: See HPI Genitourinary: Denies dysuria or hematuria Musculoskeletal: Denies any but chronic joint aches, pains or deformities Psychiatric: No recent mood changes Neurologic: No paresthesias or loss of function Objective Physical Exam: Vital Signs BP 101/56 (BP Location: Left arm, Patient Position: Lying) Pulse 95 Temp 98.7 ??F (37.1 ??C) (Oral) Resp 18 SpO2 92% No intake or output data in the 24 hours ending 08/27/252110 Physical Exam: Head: Normocephalic, atraumatic. Eyes: Pupils equal, round, react to light and accommodation. Mouth: Oral mucosa without lesions, Neck: No masses, lymphadenopathy or carotid bruits bilaterally CV: Rhythm and rate regular , no murmurs, rubs or gallops Lungs: Clear to auscultation bilaterally Abdomen: Bowel sounds positive , soft, mildly tender to deep palpation. No peritonitis. Reducible umbilical hernia. R paramedian scar c/w appendectomy/ Groin : No obvious hernias bilaterally Extremities: No cyanosis, clubbing or edema bilaterally Lymphatics: No abnormal lymphadenopathy appreciated Neurologic: No gross deficits Results Review: I have personally reviewed all of the recent lab and imaging results available at this time. Laboratory exam at the outside hospital revealed a lipase of 11,000. Laboratory exam here demonstrates a white count of 15,000 with a hemoglobin 11.1 and platelet count of 171. There is a left shift. His lipase is 576 with a procalcitonin of 68.3 a lactate of 7.2. His AST is 456 ALT 275 but alkaline phosphatase of 106 and a bilirubin of 1.0. His creatinine is 1.49. His high-sensitivity troponin is 39. The CT scan report from the outside hospital was viewed by me, but no images were sent with the patient and no disc was sent either. The CT scan report demonstrates no evidence of pulmonary embolus, but does report a distended gallbladder with Zachariah cholecystic fluid and questionable gallbladder wall thickening. There is an atrophic pancreas. There is no free air mentioned. No evidence of bowel obstruction noted. Assessment and Plan: Pancreatitis- He has evidence of pancreatitis, and I am unsure if he truly has cholecystitis or not. I am going to repeat his CT scan overnight tonight without contrast to evaluate his intra-abdominal cavity as well as his cholecystitis. Depending on his resolution of his pancreatitis, we may be able to proceed with cholecystectomy as early as tomorrow, but this will depend on multiple clinical factors. I am also concerned that he may have an acute hepatitis, possibly related to recent anesthesia and/or medication reaction related to his recent procedure given the transaminitis with normal alk phos and bilirubin. I will follow this patient with you. 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 I discussed the patient's findings and my recommendations with the patient and/or family, as well as the primary team Hermes Jaramillo MD 08/27/25 21:11 EST Dictated using [employer] Dictation CT scan personally reviewed. This shows acute cholecystitis, no evidence of pancreatitis and no other acute issues (no free air or fluid, no evidnece of bowel ischemia). Patient was moved to ICU for hypotension, started on pressors. I spoke with Dr. Rubin of ICU service as well, who will manage ongoing resuscitation. If stabilizes, will plan for CCY later this morning, otherwise may need cholecystostomy tube placement. Will follow ongoing resuscitation. Hermes Jaramillo MD 00:03 EST' 0004 Physical Therapy Notes (most recent note) Rhianna Tilley, PT at 09/02/25 1028 Version 1 of 1 Patient Name: Loc Thurman : 1940 Today's Date: 09/02/2025 Admit Date: 08/27/2025 Visit Dx: ICD-10-CM ICD-9-CM 1. Acute pancreatitis, unspecified complication status, unspecified pancreatitis type K85.90 577.0 2. Cholecystitis K81.9 575.10 3. 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 Respiratory insufficiency Shock Past Medical History: Diagnosis Date Cancer COPD (chronic obstructive pulmonary disease) Hyperlipidemia Hypertension Past Surgical History: Procedure Laterality Date APPENDECTOMY CHOLECYSTECTOMY WITH INTRAOPERATIVE CHOLANGIOGRAM N/A 08/28/2025 Procedure: CHOLECYSTECTOMY LAPAROSCOPIC INTRAOPERATIVE CHOLANGIOGRAM; Surgeon: Hermes Jaramillo MD; Location: [facility] OR; Service: General; Laterality: N/A; COLONOSCOPY HERNIA REPAIR General Information Row Name 09/02/25 1142 Physical Therapy Time and Intention Document Type therapy note (daily note) -LM Mode of Treatment individual therapy;physical therapy -LM Row Name 09/02/25 1142 General Information Patient Profile Reviewed yes -LM Existing Precautions/Restrictions fall;other (see comments) Abdominal Incision; Anxiety -LM Row Name 09/02/25 1142 Cognition Orientation Status (Cognition) oriented x 3 -LM Row Name 09/02/25 1142 Safety Issues/Impairments Affecting Functional Mobility Safety Issues Affecting Function (Mobility) insight into deficits/self- awareness;safety precaution awareness;safety precautions follow- through/compliance;sequencing abilities -LM Impairments Affecting Function (Mobility) balance;coordination;endurance/activity tolerance;pain;shortness of breath;strength -LM User Jung (r) = Recorded By, (t) = Taken By, (c) = Cosigned By Initials Name Provider Type Rhianna Montano PT Physical Therapist Mobility Row Name 09/02/25 1143 Bed Mobility Comment, (Bed Mobility) Up in chair upon entering room. With MT going for MBS at end of session. -LM Row Name 09/02/25 1143 Sit-Stand Transfer Sit-Stand Reynolds (Transfers) minimum assist (75% patient effort);1 person assist;verbal cues -LM Assistive Device (Sit-Stand Transfers) walker, front-wheeled -LM Comment, (Sit-Stand Transfer) Vc's for hand placement. Increased time/effort needed. -LM Row Name 09/02/25 1143 Gait/Stairs (Locomotion) Reynolds Level (Gait) minimum assist (75% patient effort);1 person assist;verbal cues -LM Assistive Device (Gait) walker, front-wheeled -LM Distance in Feet (Gait) 20 -LM Deviations/Abnormal Patterns (Gait) bilateral deviations;cassidy decreased;stride length decreased;gait speed decreased -LM Bilateral Gait Deviations forward flexed posture;heel strike decreased -LM Comment, (Gait/Stairs) Vc's for upright posture and to stay inside walker. Pt ambulates at a very slow, cautious pace. Pt very fatigued post activity. -LM User Jung (r) = Recorded By, (t) = Taken By, (c) = Cosigned By Initials Name Provider Type Rhianna Montano PT Physical Therapist Obj/Interventions Row Name 09/02/25 1146 Motor Skills Therapeutic Exercise hip;knee;ankle -LM Row Name 09/02/25 1146 Hip (Therapeutic Exercise) Hip (Therapeutic Exercise) AROM (active range of motion);isometric exercises -LM Hip AROM (Therapeutic Exercise) bilateral;aBduction;aDduction;sitting;10 repetitions -LM Hip Isometrics (Therapeutic Exercise) bilateral;gluteal sets;sitting;10 repetitions -LM Row Name 09/02/25 1146 Knee (Therapeutic Exercise) Knee (Therapeutic Exercise) AROM (active range of motion);isometric exercises -LM Knee AROM (Therapeutic Exercise) bilateral;heel slides;sitting;10 repetitions -LM Knee Isometrics (Therapeutic Exercise) bilateral;quad sets;sitting;10 repetitions -LM Row Name 09/02/25 1146 Ankle (Therapeutic Exercise) Ankle (Therapeutic Exercise) AROM (active range of motion) -LM Ankle AROM (Therapeutic Exercise) bilateral;dorsiflexion;plantarflexion;sitting;10 repetitions -LM Row Name 09/02/25 1146 Balance Static Sitting Balance standby assist -LM Position, Sitting Balance unsupported;sitting in chair -LM Static Standing Balance contact guard;1-person assist;verbal cues -LM Dynamic Standing Balance minimal assist;1-person assist;verbal cues -LM Position/Device Used, Standing Balance supported;walker, front-wheeled -LM User Jung (r) = Recorded By, (t) = Taken By, (c) = Cosigned By Initials Name Provider Type LM Rhianna Tilley, PT Physical Therapist Goals/Plan No documentation. Clinical Impression Row Name 09/02/25 1147 Pain Pretreatment Pain Rating 4/10 -LM Posttreatment Pain Rating 4/10 -LM Pain Location abdomen -LM Pain Side/Orientation generalized -LM Pain Management Interventions exercise or physical activity utilized -LM Response to Pain Interventions activity participation with tolerable pain -LM Row Name 09/02/25 1147 Plan of Care Review Plan of Care Reviewed With patient -LM Progress improving -LM Outcome Evaluation Pt progressing well towards skilled PT goals. Less assist needed with mobility compared to initial evaluation. Pt stood with MinAx1 and increased gait distance to 20 feet using rw with MinAx1. Pt continues to be limited by weakness, decreased activity tolerance, and gait instability. Continue to recommend inpatient rehab at d/c. -LM Row Name 09/02/25 1147 Vital Signs Pre Systolic BP Rehab 179 -LM Pre Treatment Diastolic BP 94 -LM Pretreatment Heart Rate (beats/min) 92 -LM Pre SpO2 (%) 94 -LM O2 Delivery Pre Treatment room air -LM Pre Patient Position Sitting -LM Row Name 09/02/25 1147 Positioning and Restraints Pre-Treatment Position in bed -LM Post Treatment Position other -LM Other Position with other staff with MT going for a MBS -LM User Jung (r) = Recorded By, (t) = Taken By, (c) = Cosigned By Initials Name Provider Type Rhianna Montano, [place] Physical Therapist Outcome Measures Row Name 09/02/25 1149 How much help from another person do you currently need... Turning from your back to your side while in flat bed without using bedrails? 2 -LM Moving from lying on back to sitting on the side of a flat bed without bedrails? 2 -LM Moving to and from a bed to a chair (including a wheelchair)? 3 -LM Standing up from a chair using your arms (e.g., wheelchair, bedside chair)? 3 -LM Climbing 3-5 steps with a railing? 2 -LM To walk in hospital room? 3 -LM AM-PAC 6 Clicks Score (PT) 15 -LM Highest Level of Mobility Goal Move to Chair/Commode-4 -LM Row Name 09/02/25 1149 09/02/25 0854 Functional Assessment Outcome Measure Options AM-PAC 6 Clicks Basic Mobility (PT) -LM AM-PAC 6 Clicks Daily Activity (OT)-AC User Jung (r) = Recorded By, (t) = Taken By, (c) = Cosigned By Initials Name Provider Type Patsy Molina, OT Occupational Therapist Rhianna Montano, [place] Physical Therapist Physical Therapy Education Title: PT OT PSYCH TECH Therapies (In Progress) Topic: Physical Therapy (In Progress) Point: Mobility training (In Progress) Learning Progress Summary Patient Acceptance, E, NR by MARINE at 09/02/2025 1150 Acceptance, E, VU,NR by SULAIMAN at 08/31/2025 1036 Acceptance, E, NR by KG at 08/30/2025 0903 Point: Home exercise program (In Progress) Learning Progress Summary Patient Acceptance, E, NR by MARINE at 09/02/2025 1150 Point: Body mechanics (Done) Learning Progress Summary Patient Acceptance, E, VU,NR by SULAIMAN at 08/31/2025 1036 Acceptance, E, NR by KG at 08/30/2025 0903 Point: Precautions (In Progress) Learning Progress Summary Patient Acceptance, E, NR by MARINE at 09/02/2025 1150 Acceptance, E, VU,NR by SULAIMAN at 08/31/2025 1036 Acceptance, E, NR by KG at 08/30/2025 0903 User Jung Initials Effective Dates Name Provider Type Discipline LM 05/06/25 - Rhianna Tilley, PT Physical Therapist PT KG 03/10/20 - Flora Galvan, PT Physical Therapist PT SULAIMAN 06/03/25 - Tee Marina, PT Student PT Student PT PT Recommendation and Plan Recommended discharge disposition is based on the functional assessment performed by PT/OT/Speech therapy (as applicable) and may not reflect the medical necessity determined by your provider or services covered by an individual patient's insurance plan or patient resource. Progress: improving Outcome Evaluation: Pt progressing well towards skilled PT goals. Less assist needed with mobility compared to initial evaluation. Pt stood with MinAx1 and increased gait distance to 20 feet using rwwith MinAx1. Pt continues to be limited by weakness, decreased activity tolerance, and gait instability. Continue to recommend inpatient rehab at d/c. Time Calculation: PT Charges Row Name 09/02/25 1150 Time Calculation Start Time 1028 -LM PT Received On 09/02/25 -LM PT Goal Re-Cert Due Date 09/09/25 -LM Timed Charges 06066 - PT Therapeutic Exercise Minutes 16 -LM 83147 - Gait Training Minutes 10 -LM Total Minutes Timed Charges Total Minutes 26 -LM Total Minutes 26 -LM User Jung (r) = Recorded By, (t) = Taken By, (c) = Cosigned By Initials Name Provider Type LM Rhianna Tilley, PT Physical Therapist Therapy Charges for Today Code Description Service Date Service Provider Modifiers Qty [id number] HC GAIT TRAINING EA 15 MIN 09/02/2025 Rhianna Tilley, PT GP 1 [id number] HC PT THER PROC EA 15 MIN 09/02/2025 Rhianna Tilley, PT GP 1 PT G-Codes Outcome Measure Options: AM-PAC 6 Clicks Basic Mobility (PT) AM-PAC 6 Clicks Score (PT): 15 AM-PAC 6 Clicks Score (OT): 13 PT Discharge Summary Anticipated Discharge Disposition (PT): inpatient rehabilitation facility Rhianna Tilley PT 09/02/2025 1151 Occupational Therapy Notes (most recent note) Patsy Abernathy, OT at 09/02/25 0740 Patient Name: Loc Thurman : 1940 Today's Date: 09/02/2025 Admit Date: 08/27/2025 Visit Dx: ICD-10-CM ICD-9-CM 1. Acute pancreatitis, unspecified complication status, unspecified pancreatitis type K85.90 577.0 2. Cholecystitis K81.9 575.10 3. 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 Respiratory insufficiency Shock Past Medical History: Diagnosis Date Cancer COPD (chronic obstructive pulmonary disease) Hyperlipidemia Hypertension Past Surgical History: Procedure Laterality Date APPENDECTOMY CHOLECYSTECTOMY WITH INTRAOPERATIVE CHOLANGIOGRAM N/A 08/28/2025 Procedure: CHOLECYSTECTOMY LAPAROSCOPIC INTRAOPERATIVE CHOLANGIOGRAM; Surgeon: Hermes Jaramillo MD; Location: [facility]; Service: General; Laterality: N/A; COLONOSCOPY HERNIA REPAIR General Information Row Name 09/02/25 0841 OT Time and Intention Document Type therapy note (daily note) -AC Mode of Treatment occupational therapy -AC Row Name 09/02/25 0841 General Information Patient Profile Reviewed yes -AC Existing Precautions/Restrictions fall abdominal incision, anxiety -AC Barriers to Rehab medically complex;previous functional deficit -AC Row Name 09/02/25 0841 Cognition Orientation Status (Cognition) oriented x 3 -AC Row Name 09/02/25 0841 Safety Issues/Impairments Affecting Functional Mobility Safety Issues Affecting Function (Mobility) positioning of assistive device;safety precaution awareness;safety precautions follow- through/compliance;sequencing abilities -AC Impairments Affecting Function (Mobility) balance;cognition;coordination;endurance/activity tolerance;pain;postural/trunk control;shortness of breath;strength -AC Cognitive Impairments, Mobility Safety/Performance awareness, need for assistance;safety precautionawareness;safety precaution follow- through;sequencing abilities -AC User Jung (r) = Recorded By, (t) = Taken By, (c) = Cosigned By Initials Name Provider Type AC Patsy Abernathy, OT Occupational Therapist Mobility/ADL's Row Name 09/02/25 0843 Bed Mobility Bed Mobility supine-sit -AC Supine-Sit Reynolds (Bed Mobility) moderate assist (50% patient effort);verbal cues -AC Bed Mobility, Safety Issues decreased use of arms for pushing/pulling;decreased use of legs for bridging/pushing;impaired trunk control for bed mobility - Assistive Device (Bed Mobility) bed rails;head of bed elevated - Comment, (Bed Mobility) reporting dizziness upon sitting, but resolved after sititng ~ 5min, BP stable - Row Name 09/02/25842 Transfers Transfers sit-stand transfer;toilet transfer - Row Name 09/02/25 0843 Bed-Chair Transfer Bed-Chair Reynolds (Transfers) verbal cues;minimum assist (75% patient effort) - Assistive Device (Bed-Chair Transfers) walker, front-wheeled -AC Comment, (Bed-Chair Transfer) increased time and effort, tremulous - Row Name 09/02/25842 Sit-Stand Transfer Sit-Stand Reynolds (Transfers) minimum assist (75% patient effort);verbal cues - Assistive Device (Sit-Stand Transfers) walker, front-wheeled - Comment, (Sit-Stand Transfer) VCs for hand placement and to place both feet in walker - Row Name 09/02/25 0843 Toilet Transfer Reynolds Level (Toilet Transfer) minimum assist (75% patient effort);1 person to manage equipment - Assistive Device (Toilet Transfer) commode, bedside without drop arms - Comment, (Toilet Transfer) increased time to take side steps, VCs to sequence - Row Name 09/02/25842 Functional Mobility Functional Mobility- Ind. Level minimum assist (75% patient effort) - Functional Mobility- Device walker, front-wheeled -AC Functional Mobility-Distance (Feet) -- 4 fft + 4ft - Functional Mobility- Safety Issues step length decreased - Row Name 09/02/25 08 Activities of Daily Living BADL Assessment/Intervention lower body dressing;grooming;toileting - Row Name 09/02/25 08 Lower Body Dressing Assessment/Training Reynolds Level (Lower Body Dressing) don;socks;dependent (less than 25% patient effort) - Position (Lower Body Dressing) supine - Row Name 09/02/25 0843 Grooming Assessment/Training Reynolds Level (Grooming) hair care, combing/brushing;oral care regimen;wash face, hands;standby assist -AC Position (Grooming) edge of bed sitting - Comment, (Grooming) bed pushed up to sink for grooming per pt request - Row Name 09/02/25 0843 Toileting Assessment/Training Reynolds Level (Toileting) adjust/manage clothing;perform perineal hygiene;maximum assist (25% patient effort) - Assistive Devices (Toileting) commode, bedside without drop arms -AC Position (Toileting) supported standing -AC User Jung (r) = Recorded By, (t) = Taken By, (c) = Cosigned By Initials Name Provider Type Patsy Molina, OT Occupational Therapist Obj/Interventions Row Name 09/02/25 0848 Balance Balance Assessment sitting static balance;sitting dynamic balance;standing static balance;standing dynamic balance -AC Static Sitting Balance standby assist -AC Dynamic Sitting Balance contact guard -AC Position, Sitting Balance sitting edge of bed;unsupported -AC Static Standing Balance verbal cues;minimal assist -AC Dynamic Standing Balance verbal cues;minimal assist -AC Position/Device Used, Standing Balance supported;walker, front-wheeled -AC User Jung (r) = Recorded By, (t) = Taken By, (c) = Cosigned By Initials Name Provider Type Patsy Molina, OT Occupational Therapist Goals/Plan No documentation. Clinical Impression Row Name 09/02/25 0860 Pain Assessment Pretreatment Pain Rating 0/10 - no pain - Posttreatment Pain Rating 0/10 - no pain - Row Name 09/02/25 0805 Plan of Care Review Plan of Care Reviewed With patient - Progress improving - Outcome Evaluation Pt progressed from mod A to min A with transfers using RW, SBA sitting sinkside to complete grooming, dep LBD. Pt with increased anxiety, tremulous and easily fatigued with activity, and presents with weakness and decr balance limiting independence with ADLs/mobiltiy. Recommend IP rehab upon d/c. - Row Name 09/02/25 0843 Therapy Plan Review/Discharge Plan (OT) Anticipated Discharge Disposition (OT) inpatient rehabilitation facility - Row Name 09/02/25 0849 Vital Signs Pre Systolic BP Rehab 184 -AC Pre Treatment Diastolic BP 96 -AC Intra Systolic BP Rehab 144 -AC Intra Treatment Diastolic BP 67 -AC Post Systolic BP Rehab 155 -AC Post Treatment Diastolic BP 81 -AC Pretreatment Heart Rate (beats/min) 93 -AC Posttreatment Heart Rate (beats/min) 107 -AC Pre SpO2 (%) 93 -AC O2 Delivery Pre Treatment room air -AC O2 Delivery Intra Treatment room air -AC Post SpO2 (%) 90 -AC O2 Delivery Post Treatment room air -AC Pre Patient Position Supine -AC Intra Patient Position Sitting -AC Post Patient Position Sitting -AC Row Name 09/02/25 0849 Positioning and Restraints Pre-Treatment Position in bed -AC Post Treatment Position chair -AC In Chair notified nsg;reclined;call light within reach;encouraged to call for assist;exit alarm on;waffle cushion -AC User Jung (r) = Recorded By, (t) = Taken By, (c) = Cosigned By Initials Name Provider Type Patsy Molina OT Occupational Therapist Outcome Measures Row Name 09/02/25 0854 How much help from another is currently needed... Putting on and taking off regular lower body clothing? 1 -AC Bathing (including washing, rinsing, and drying) 2 -AC Toileting (which includes using toilet bed currie or urinal) 2 -AC Putting on and taking off regular upper body clothing 2 -AC Taking care of personal grooming (such as brushing teeth) 3 -AC Eating meals 3 -AC AM-PAC 6 Clicks Score (OT) 13 -AC Row Name 09/02/25 0854 Functional Assessment Outcome Measure Options AM-PAC 6 Clicks Daily Activity (OT) -AC User Jung (r) = Recorded By, (t) = Taken By, (c) = Cosigned By Initials Name Provider Type Patsy Molina, ARY Occupational Therapist Occupational Therapy Education Title: PT OT PSYCH TECH Therapies (In Progress) Topic: Occupational Therapy (In Progress) Point: ADL training (In Progress) Learning Progress Summary Patient Acceptance, E, NR by MARCELO at 09/02/2025 0855 Acceptance, E, VU by JUAQUIN at 08/31/2025 1348 Acceptance, E, NR by at 08/30/2025 1147 Point: Home exercise program (Done) Learning Progress Summary Patient Acceptance, E, VU by AN at 08/31/2025 1348 Point: Precautions (Done) Learning Progress Summary Patient Acceptance, E, VU by AN at 08/31/2025 1348 Acceptance, E, NR by at 08/30/2025 1147 Point: Body mechanics (Done) Learning Progress Summary Patient Acceptance, E, VU by at 08/31/2025 1348 Acceptance, E, NR by at 08/30/2025 1147 User Jung Initials Effective Dates Name Provider Type Discipline AC 11/22/22 - Patsy Abernathy, OT Occupational Therapist OT 08/02/22 - Aury Fitzgerald OT Occupational Therapist OT 07/10/21 - Radha Smith, OT Occupational Therapist OT OT Recommendation and Plan Recommended discharge disposition is based on the functional assessment performed by PT/OT/Speech therapy (as applicable) and may not reflect the medical necessity determined by your provider or services covered by an individual patient's insurance plan or patient resource. Plan of Care Review Plan of Care Reviewed With: patient Progress: improving Outcome Evaluation: Pt progressed from mod A to min A with transfers using RW, SBA sitting sinksideto complete grooming, dep LBD. Pt with increased anxiety, tremulous and easily fatigued with activity, and presents with weakness and decr balance limiting independence with ADLs/mobiltiy. Recommend IP rehab upon d/c. Time Calculation: Time Calculation- OT Row Name 09/02/25 0740 Time Calculation- OT OT Start Time 0740 -AC OT Received On 09/02/25 -AC OT Goal Re-Cert Due Date 09/09/25 -AC Timed Charges 91375 - OT Therapeutic Activity Minutes 15 -AC 30498 - OT Self Care/Mgmt Minutes 40 -AC Total Minutes Timed Charges Total Minutes 55 -AC Total Minutes 55 -AC User Jung (r) = Recorded By, (t) = Taken By, (c) = Cosigned By Initials Name Provider Type AC Patsy Abernathy, OT Occupational Therapist Therapy Charges for Today Code Description Service Date Service Provider Modifiers Qty 49994578676 HC OT THERAPEUTIC ACT EA 15 MIN 09/02/2025 Patsy Abernathy OT GO 1 91625305127 HC OT SELF CARE/MGMT/TRAIN EA 15 MIN 09/02/2025 Patsy Abernathy OT GO 3 Patsy Abernathy OT 09/02/2025 0858 Speech Language Pathology Notes (most recent note) Andrea Dukes MS CCC-PSYCH TECH at 09/02/25 1460 Acute Care - Speech Language Pathology Swallow Re-Assessment [facility] Modified Barium Swallow Study (MBS) Patient Name: Loc Thurman : 1940 Today's Date: 09/02/2025 Admit Date: 08/27/2025 Visit Dx: ICD-10-CM ICD-9-CM 1. Acute pancreatitis, unspecified complication status, unspecified pancreatitis type K85.90 577.0 2. Cholecystitis K81.9 575.10 3. 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 Respiratory insufficiency Shock Past Medical History: Diagnosis Date Cancer COPD (chronic obstructive pulmonary disease) Hyperlipidemia Hypertension Past Surgical History: Procedure Laterality Date APPENDECTOMY CHOLECYSTECTOMY WITH INTRAOPERATIVE CHOLANGIOGRAM N/A 08/28/2025 Procedure: CHOLECYSTECTOMY LAPAROSCOPIC INTRAOPERATIVE CHOLANGIOGRAM; Surgeon: Hermes Jaramillo MD; Location: [facility]; Service: General; Laterality: N/A; COLONOSCOPY HERNIA REPAIR PSYCH TECH Recommendation and Plan Recommended discharge disposition is based on the functional assessment performed by PT/OT/Speech therapy (as applicable) and may not reflect the medical necessity determined by your provider or services covered by an individual patient's insurance plan or patient resource. PSYCH TECH Swallowing Diagnosis: mild, oral dysphagia, mod-severe, pharyngeal dysphagia (09/02/251099) PSYCH TECH Diet Recommendation: mechanical ground textures, no mixed consistencies, honey thick liquids (09/02/251099) Recommended Precautions and Strategies: no straw, small bites of food and sips of liquid, upright posture during/after eating, general aspiration precautions (09/02/251099) PSYCH TECH Rec. for Method of Medication Administration: meds whole, with thick liquids, with puree (09/02/251099) Monitor for Signs of Aspiration: yes, notify PSYCH TECH if any concerns (09/02/251099) Swallow Criteria for Skilled Therapeutic Interventions Met: demonstrates skilled criteria () Anticipated Discharge Disposition (PSYCH TECH): inpatient rehabilitation facility (09/02/251099) Rehab Potential/Prognosis, Swallowing: good, to achieve stated therapy goals (09/02/251099) Therapy Frequency (Swallow): 5 days per week (09/02/25 1100) Predicted Duration Therapy Intervention (Days): 2 weeks (09/02/25 1100) Oral Care Recommendations: Oral Care BID/PRN, Suction toothbrush (09/02/25 1100) Progress: declining SWALLOW EVALUATION (Last 72 Hours) PSYCH TECH Adult Swallow Evaluation Row Name 09/02/25 1100 09/01/25 1530 08/31/25 0815 Rehab Evaluation Document Type re-evaluation -RS therapy note (daily note) -SM re-evaluation -RS Subjective Information no complaints -RS no complaints -SM no complaints -RS Patient Observations alert;cooperative -RS alert;cooperative -SM alert;cooperative;agree to therapy-RS Patient/Family/Caregiver Comments/Observations none present -RS -- None present -RS Patient Effort good -RS good -SM good -RS Symptoms Noted During/After Treatment shortness of breath -RS none -SM none -RS Symptoms Noted, Comment reported to RN and transport and radiology staff -RS -- -- Oral Care -- patient refused intervention -SM teeth brushed - suction toothbrush -RS General Information Patient Profile Reviewed yes -RS yes -SM yes -RS Pertinent History Of Current Problem See previous PSYCH TECH notes -RS See previous PSYCH TECH notes -SM See previous PSYCH TECH notes. Pt has been cleared for PO diet by surgeon -RS Current Method of Nutrition -- pureed;nectar/syrup-thick liquids -SM NPO;large- bore -RS Pain Pretreatment Pain Rating 0/10 - no pain -RS 0/10 - no pain -SM 0/10 - no pain -RS Posttreatment Pain Rating 0/10 - no pain -RS 0/10 - no pain -SM 0/10 - no pain -RS Oral Motor Structure and Function Dentition Assessment -- -- upper dentures/partial in place;lower dentures/partial in place -RS Secretion Management -- -- WNL/WFL -RS Mucosal Quality -- -- dry;sticky -RS General Eating/Swallowing Observations Respiratory Support Currently in Use room air -RS room air -SM nasal cannula -RS O2 Liters -- -- 3L -RS Eating/Swallowing Skills fed by PSYCH TECH;needed assist;self-fed -RS self-fed;fed by PSYCH TECH;needed assist -SM fed by staff/caregiver -RS Positioning During Eating upright 90 degree;upright in chair -RS upright 90 degree;upright in chair-SM upright 90 degree;upright in bed -RS Utensils Used spoon;cup;straw -RS straw -SM spoon;cup;straw -RS Consistencies Trialed thin liquids;nectar/syrup-thick liquids;honey-thick liquids;pureed;mixed consistency -RS regular textures;thin liquids;nectar/syrup- thick liquids;ice chips -SM soft to chew textures;mechanical ground textures;mixed consistency;pureed;thin liquids;nectar/syrup-thick liquids -RS MBS/VFSS Interpretation Oral Prep Phase WFL -RS -- -- Oral Transit Phase impaired -RS -- -- Oral Residue WFL -RS -- -- Oral Transit Phase Impaired Oral Transit Phase premature spillage of liquids into pharynx -RS -- -- Premature Spillage of Liquids into Pharynx thin liquids;nectar-thick liquids;honey-thick liquids -RS -- -- Initiation of Pharyngeal Swallow Initiation of Pharyngeal Swallow bolus in valleculae -RS -- -- Pharyngeal Phase impaired pharyngeal phase of swallowing -RS -- -- Anatomical abnormalities noted reverse lordotic c-spine curvature -RS -- -- Anatomical abnormalities functional impact other (see comments) ? functional impact -RS -- -- Penetration Before the Swallow thin liquids;nectar-thick liquids;honey-thick liquids;secondary to reduced back of tongue control;secondary to delayed swallow initiation or mistiming -RS -- -- Penetration During the Swallow thin liquids;nectar-thick liquids;secondary to delayed swallow initiation or mistiming;secondary to reduced laryngeal elevation;secondary to reduced vestibular closure -RS -- -- Aspiration During the Swallow thin liquids;secondary to delayed swallow initiation or mistiming;secondary to reduced laryngeal elevation;secondary to reduced vestibular closure;other (see comments) u/a to confirm/r/o 2/2 artifact prohibiting view. Best visualized on series 3 -RS -- -- Response to Penetration No -RS -- -- No spontaneous response to penetration and non-effective laryngeal clearance with cue (see comments) -RS -- -- Response to Aspiration No -RS -- -- No spontaneous response to aspiration and non-effective subglottic clearance with cue (see comments) -RS -- -- Rosenbek's Scale thin:;8--->level 8;nectar:;3--->level 3;honey:;2--->level 2 -RS -- -- Pharyngeal Residue diffuse within pharynx;secondary to reduced base of tongue retraction;secondary to reduced posterior pharyngeal wall stripping;secondary to reduced laryngeal elevation;secondary toreduced hyolaryngeal excursion -RS -- -- Response to Residue cleared residue with spontaneous subsequent swallow;cleared residue with cued swallow -RS -- -- Attempted Compensatory Maneuvers bolus size;bolus presentation style;chin tuck - RS -- -- Response to Attempted Compensatory Maneuvers prevented penetration;did not prevent penetration -RS -- -- Successful Compensatory Maneuver Competency patient able to;independently;other (see comments) no straws -RS -- -- Pharyngeal Phase, Comment Pharyngeal impairment appears worsened from FEES completed earlier this week. Pt does endorse SOA t/o exam which was related to RN -RS -- -- Fiberoptic Endoscopic Evaluation of Swallowing (FEES) Risks/Benefits Reviewed -- -- risks/benefits explained;patient;agreed to eval -RS Nasal Entry -- -- left: -RS Scope serial number/identification -- -- 338 -RS Special Considerations -- -- large bore NGT in place, not yet appropriate to remove -RS Anatomy and Physiology Anatomic Considerations -- -- edema;erythema -RS Base of Tongue -- -- symmetrical -RS Epiglottis -- -- WFL -RS Laryngeal Function Breathing -- -- symmetrical -RS Laryngeal Function Phonation -- -- symmetrical -RS Laryngeal Function to Breath Hold -- -- can't sustain closure -RS Secretion Rating Scale (Steven et al. 1995) -- -- 2- secretions initially outside the vestibule butlater entered the vestibule -RS Secretion Description -- -- thick;white -RS Ice Chips -- -- elicited swallow -RS Spontaneous Swallow -- -- frequency reduced -RS Sensory -- -- sensed scope -RS FEES Interpretation Oral Phase -- -- reduced lingual control;prespill of liquids into pharynx;prolonged manipulation;with solids only -RS Initiation of Pharyngeal Swallow Initiation of Pharyngeal Swallow -- -- bolus in valleculae -RS Pharyngeal Phase -- -- impaired pharyngeal phase of swallowing -RS Aspiration During the Swallow -- -- thin liquids;secondary to delayed swallow initiation or mistiming;secondary to reduced laryngeal elevation;secondary to reduced vestibular closure -RS Response to Aspiration -- -- No -RS No spontaneous response to aspiration with -- -- effective subglottic clearance with cue (see comments) -RS Rosenbek's Scale -- -- thin:;8-->Level 8;nectar:;1-->Level 1 -RS Residue -- -- diffuse within pharynx;secondary to reduced base of tongue retraction;secondary to reduced posterior pharyngeal wall stripping;secondary to reduced laryngeal elevation;secondary to reduced hyolaryngeal excursion;other (see comments) mild but diffuse -RS Response to Residue -- -- cleared residue;with spontaneous subsequent swallow;with cued swallow -RS Attempted Compensatory Maneuvers -- -- bolus size;bolus presentation style -RS Response to Attempted Compensatory Maneuvers -- -- did not prevent aspiration -RS FEES Summary -- -- PO diet to be ordered at discretion of surgeon. May want to initiate clear (nectar) liquids and advance. Unsure why oral phase so prolonged given lack of isolated lingual/labial weakness (with the exception of tongue back). Given prolonged oral phase, recommend puree solids whichcan be upgraded at bedside. Would anticipate quick pharyngeal recovery. -RS Swallowing Quality of Life Assessment Education and counseling provided Signs of aspiration;Silent aspiration;Risks of aspiration;Safest diet options -RS -- Signs of aspiration;Silent aspiration;Risks of aspiration -RS PSYCH TECH Evaluation Clinical Impression PSYCH TECH Swallowing Diagnosis mild;oral dysphagia;mod-severe;pharyngeal dysphagia -RS -- moderate;oral dysphagia;pharyngeal dysphagia -RS Functional Impact risk of aspiration/pneumonia -RS -- risk of aspiration/pneumonia -RS Rehab Potential/Prognosis, Swallowing good, to achieve stated therapy goals -RS -- good, to achievestated therapy goals -RS Swallow Criteria for Skilled Therapeutic Interventions Met demonstrates skilled criteria -RS -- demonstrates skilled criteria -RS PSYCH TECH Treatment Clinical Impressions Treatment Assessment (PSYCH TECH) -- toleration of diet;clinical signs of;aspiration - SM -- Treatment Assessment Comments (PSYCH TECH) -- Pt requesting thin liquids. Explained justification of thickened liquids -SM -- Daily Summary of Progress (PSYCH TECH) -- progress toward functional goals is good -SM -- Plan for Continued Treatment (PSYCH TECH) -- continue treatment per plan of care -SM -- Care Plan Review -- evaluation/treatment results reviewed;patient/other agree to care plan -SM -- Recommendations Therapy Frequency (Swallow) 5 days per week -RS 5 days per week -SM 5 days per week -RS Predicted Duration Therapy Intervention (Days) 2 weeks -RS 2 weeks -SM 2 weeks -RS PSYCH TECH Diet Recommendation mechanical ground textures;no mixed consistencies;honey thick liquids -RS mechanical ground textures;nectar thick liquids;ice chips between meals after oral care, with supervision -SM puree;nectar thick liquids;other (see comments) PO diet at discretion of surgeon only -RS Recommended Diagnostics -- reassess via FEES - -- Recommended Precautions and Strategies no straw;small bites of food and sips of liquid;upright posture during/after eating;general aspiration precautions -RS upright posture during/after eating;general aspiration precautions -SM upright posture during/after eating;general aspiration precautions -RS Oral Care Recommendations Oral Care BID/PRN;Suction toothbrush -RS Oral Care BID/PRN;Suction toothbrush -SM Oral Care BID/PRN;Suction toothbrush -RS PSYCH TECH Rec. for Method of Medication Administration meds whole;with thick liquids;with puree -RS meds whole;with thick liquids -SM meds whole;with thick liquids;meds via alternate route -RS Monitor for Signs of Aspiration yes;notify PSYCH TECH if any concerns -RS yes;notify PSYCH TECH if any concerns -SM yes;notify PSYCH TECH if any concerns -RS Anticipated Discharge Disposition (PSYCH TECH) inpatient rehabilitation facility -RS inpatient rehabilitation facility - inpatient rehabilitation facility -RS User Jung (r) = Recorded By, (t) = Taken By, (c) = Cosigned By Initials Name Effective Dates RS Andrea Dukes MS CCC-PSYCH TECH 07/03/23 - Nora Weiner MS CF-PSYCH TECH 03/24/25 - EDUCATION The patient has been educated in the following areas: Dysphagia (Swallowing Impairment) Modified Diet Instruction. PSYCH TECH GOALS Row Name 09/02/25 1100 09/01/25 1530 08/31/25 6730 (LTG) Patient will demonstrate functional swallow for Diet Texture (Demonstrate functional swallow) regular textures -RS regular textures -SM regular textures -RS Liquid viscosity (Demonstrate functional swallow) thin liquids -RS thin liquids -SM thin liquids -RS Reynolds (Demonstrate functional swallow) independently (over 90% accuracy) -RS independently (over 90% accuracy) -SM independently (over 90% accuracy) -RS Time Frame (Demonstrate functional swallow) 2 weeks -RS 2 weeks -SM 2 weeks -RS Progress/Outcomes (Demonstrate functional swallow) goal ongoing -RS continuing progress toward goal-SM new goal -RS (STG) Patient will tolerate trials of Consistencies Trialed (Tolerate trials) mechanical ground textures;honey/ moderately thick liquids -RS mechanical ground textures;nectar/ mildly thick liquids -SM pureed textures;nectar/ mildly thickliquids -RS Desired Outcome (Tolerate trials) without signs/symptoms of aspiration;without signs of distress;with adequate oral prep/transit/clearance;with use of compensatory strategies (see comments) -RS without signs/symptoms of aspiration;without signs of distress;with adequate oral prep/transit/clearance - SM without signs/symptoms of aspiration;without signs of distress;with adequate oral prep/transit/clearance -RS Reynolds (Tolerate trials) with minimal cues (75-90% accuracy) -RS with minimal cues (75-90% accuracy) -SM with minimal cues (75-90% accuracy) -RS Time Frame (Tolerate trials) 1 week -RS 1 week -SM 1 week -RS Progress/Outcomes (Tolerate trials) goal revised this -RS goal revised this - new goal -RS Comment (Tolerate trials) -- [facility] -[facility] -- (STG) Patient will tolerate therapeutic trials of Consistencies Trialed (Tolerate therapeutic trials) soft to chew (chopped) textures;honey/ moderately thick liquids -RS soft to chew (chopped) textures;nectar/ mildly thick liquids -SM soft to chew (chopped) textures;nectar/ mildly thick liquids -RS Desired Outcome (Tolerate therapeutic trials) without signs/symptoms of aspiration;without signs ofdistress;with adequate oral prep/transit/clearance - RS without signs/symptoms of aspiration;withoutsigns of distress;with adequate oral prep/transit/clearance -SM without signs/symptoms of aspiration;without signs of distress;with adequate oral prep/transit/clearance -RS Reynolds (Tolerate therapeutic trials) with minimal cues (75-90% accuracy) - RS with minimal cues (75-90% accuracy) -SM with minimal cues (75-90% accuracy) -RS Time Frame (Tolerate therapeutic trials) 1 week -RS 1 week -SM 1 week -RS Progress/Outcomes (Tolerate therapeutic trials) goal revised this -RS continuing progress toward goal -SM new goal -RS Comment (Tolerate therapeutic trials) -- Per RN, pt requesting thin liquids all day. Assessed ice and sips of thin water at bedside, pt consistently demonstrating TC. No s/sxs w/ nectar or solid trials. Oral concerns w/ solid, but OK to [facility] to [facility] and monitor tolerance - -- (STG) Lingual Strengthening Goal 1 (PSYCH TECH) Activity (Lingual Strengthening Goal 1, PSYCH TECH) increase tongue back strength -RS increase tongue backstrength -SM increase tongue back strength -RS Increase Tongue Back Strength lingual resistance exercises -RS lingual resistance exercises -SM lingual resistance exercises -RS Reynolds/Accuracy (Lingual Strengthening Goal 1, PSYCH TECH) with minimal cues (75- 90% accuracy) -RS with minimal cues (75-90% accuracy) -SM with minimal cues (75- 90% accuracy) -RS Time Frame (Lingual Strengthening Goal 1, PSYCH TECH) 1 week -RS 1 week -SM 1 week -RS Progress/Outcomes (Lingual Strengthening Goal 1, PSYCH TECH) goal ongoing -RS continuing progress toward goal -SM new goal -RS (STG) Pharyngeal Strengthening Exercise Goal 1 (PSYCH TECH) Activity (Pharyngeal Strengthening Goal 1, PSYCH TECH) increase timing;increase superior movement of the hyolaryngeal complex;increase anterior movement of the hyolaryngeal complex;increase closure at entrance to airway/closure of airway at glottis;increase squeeze/positive pressure generation;increase tongue base retraction -RS increase timing;increase superior movement of the hyolaryngeal complex;increase anterior movement of the hyolaryngeal complex;increase closure at entrance to airway/closure ofairway at glottis;increase squeeze/positive pressure generation;increase tongue base retraction -SMincrease timing;increase superior movement of the hyolaryngeal complex;increase anterior movement of the hyolaryngeal complex;increase closure at entrance to airway/closure of airway at glottis;increase squeeze/positive pressure generation;increase tongue base retraction -RS Increase Timing prepping - 3 second prep or suck swallow or 3-step swallow -RS prepping - 3 second prep or suck swallow or 3-step swallow -SM prepping - 3 second prep or suck swallow or 3-step swallow -RS Increase Superior Movement of the Hyolaryngeal Complex Patience -RS Patience -SM Patience -RS Increase Anterior Movement of the Hyolaryngeal Complex chin tuck against resistance (CTAR) -RS chintuck against resistance (CTAR) -SM chin tuck against resistance (CTAR) -RS Increase Closure at Entrance to Airway/Closure of Airway at Glottis supraglottic swallow -RS supraglottic swallow -SM supraglottic swallow -RS Increase Squeeze/Positive Pressure Generation hard effortful swallow -RS hard effortful swallow -SMhard effortful swallow -RS Increase Tongue Base Retraction mike -RS mike -SM mike -RS Reynolds/Accuracy (Pharyngeal Strengthening Goal 1, PSYCH TECH) with minimal cues (75-90% accuracy) -RS with minimal cues (75-90% accuracy) -SM with minimal cues (75-90% accuracy) -RS Time Frame (Pharyngeal Strengthening Goal 1, PSYCH TECH) 1 week -RS 1 week -SM 1 week -RS Progress/Outcomes (Pharyngeal Strengthening Goal 1, PSYCH TECH) goal ongoing -RS continuing progress toward goal -SM new goal -RS Comment (Pharyngeal Strengthening Goal 1, PSYCH TECH) -- Demo'd all and left at bedside - -- User Jung (r) = Recorded By, (t) = Taken By, (c) = Cosigned By Initials Name Provider Type RS Andrea Dukes MS CCC-PSYCH TECH Speech and Language Pathologist Nora Weiner MS CF-PSYCH TECH Speech and Language Pathologist Time Calculation: Time Calculation- PSYCH TECH Row Name 09/02/25 1302 Time Calculation- PSYCH TECH PSYCH TECH Start Time 1100 -RS PSYCH TECH Received On 09/02/25 -RS Untimed Charges 51989-AB Motion Fluoro Eval Swallow Minutes 61 -RS Total Minutes Untimed Charges Total Minutes 61 -RS Total Minutes 61 -RS User Jung (r) = Recorded By, (t) = Taken By, (c) = Cosigned By Initials Name Provider Type RS Andrea Dukes MS CCC-PSYCH TECH Speech and Language Pathologist Therapy Charges for Today Code Description Service Date Service Provider Modifiers Qty [id number] HC ST MOTION FLUORO EVAL SWALLOW 4 09/02/2025 Andrea Dukes MS CCC- PSYCH TECH GN 1 Andrea Dukes MS CCC-PSYCH TECH 09/02/2025 1305 * Daryl Schwab RN - 09/01/2025 12:36 PM EST Images from the original note were not included. ThurmanLoc (84 y.o. Male) From Daryl Schwab RN CM [id number] Date of 1940 Social Security Number [id number] [place] [address] Gnosticism Sabianism Marital Status Admission Date 08/27/2025 Admission Type Urgent Admitting Provider Flora Baig MD Attending Provider Flora Baig MD Department, Room/Bed [address], S581/1 Discharge Date Discharge Disposition Discharge Destination Attending Provider: Flora Baig MD Allergies: No Known Allergies Isolation: None Infection: None Code Status: CPR Ht: 172.7 cm (67.99 ) Wt: 95.4 kg (210 lb 4.8 oz) Admission Cmt: None Principal Problem: Acute pancreatitis [K85.90] Active Insurance as of 08/27/2025 Primary Coverage Payor Plan Insurance Group Employer/Plan Group MEDICARE MEDICARE A & B Payor Plan Address Payor Plan Phone Number Payor Plan Fax Number Effective Dates [address] 11/20/2003 - None Entered [facility] [id number] Subscriber Name Subscriber Date Member ID LOC THURMAN 1940 [id number] Secondary Coverage Payor Plan Insurance Group Employer/Plan Group [employer] Payor Plan Address Payor Plan Phone Number Payor Plan Fax Number Effective Dates [address] [employer] [place] [phone] 10/20/2015 - None Entered [facility] [id number] Subscriber Name Subscriber Date Member ID LOC THURMAN 1940 [id number] Emergency 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 male is followed for:No chief complaint on file. Pancreatitis Vasovagal syncope HTN (hypertension) Mixed hyperlipidemia COPD (chronic obstructive pulmonary disease) Former tobacco use History of prostate cancer BPH with obstruction/lower urinary tract symptoms As an Emergency Veterinarian, we provide an integrated approach to the ICU patient and family, medical management of comorbid conditions, including but not limited to electrolytes, glycemic control, organ dysfunction, lead interdisciplinary rounds and coordinate the care with all other services, including those from other specialists. HPI: Loc is a 84 y.o. male with PMH COPD, history of pancreatitis, hypertension, prostate cancer status post XRT and hormonal therapy 2014, hyperlipidemia, new left lung mass who [facility] because of evaluation of possible pancreatitis and cholecystitis. Patient underwent bronchoscopy yesterday for lung nodules/mass. Did have scant hemoptysis mixed in with saliva yesterday evening postprocedure. Has not had any olga hemoptysis orno further episodes. Today he woke up with upper abdominal pain after eating breakfast as well as nausea and vomiting. Went to [facility] and during transport her head syncopal episode with blood pressure dropping. Blood pressure improved with IV fluids. Labs significant for lipase 11,000. CT chest abdomen pelvis showed distended gallbladder with questionable gallbladder wall thickening and. Cholecystic fluid. He was then transferred to our facility and admitted to the hospitalist service. Dr. Jaramillo with general surgery saw patient and ordered CT abdomen pelvis. Unfortunately patient developed hypotension requiring vasopressor and was subsequently transferred to the ICU. Patient seen at bedside. Alert and oriented x 3. Son at bedside. Complains of some abdominal pain 4out of 10 that is improved. Has been having nausea and vomiting. No vomiting or recent bleed. No chest pain or shortness of breath. No hemoptysis. PMH: He has no past medical history on file. PSxH: He has no past surgical history on file. Medications: No current facility-administered medications on file prior to encounter. Current Outpatient Medications on File Prior to Encounter Medication Sig diphenhydrAMINE (BENADRYL) 25 mg capsule Take 1 capsule by mouth At Night As Needed for Sleep. ferrous gluconate (FERGON) 324 MG tablet Take 1 tablet by mouth Daily With Breakfast. Glycopyrrolate-Formoterol (Bevespi Aerosphere) 9-4.8 MCG/ACT aerosol Inhale. lisinopril (PRINIVIL,ZESTRIL) 10 MG tablet Take 1.5 tablets by mouth 2 (Two) Times a Day. montelukast (SINGULAIR) 10 MG tablet Take 1 tablet by mouth Every Night. omeprazole (priLOSEC) 20 MG capsule Take 1 capsule by mouth Daily. vitamin B-12 (CYANOCOBALAMIN) 1000 MCG tablet Take 1 tablet by mouth Daily. vitamin C (ASCORBIC ACID) 250 MG tablet Take 1 tablet by mouth Daily. albuterol sulfate HFA 108 (90 Base) MCG/ACT inhaler Inhale 2 puffs Every 4 (Four) Hours As Needed for Wheezing. cetirizine (zyrTEC) 5 MG tablet Take 1 tablet by mouth Daily. (Patient not taking: Reported on 08/27/2025) Allergies: He has no known allergies. FH: His family history is not on file. SH: He reports that he quit smoking about 35 years ago. His smoking use included cigarettes. He hasnever used smokeless tobacco. He reports that he does not drink alcohol and does not use drugs. The patient's relevant past medical, surgical and social history were reviewed and updated in [facility] as appropriate. Review of Systems As described in the HPI. OBJECTIVE Vitals: Temp: 97.4 ??F (36.3 ??C) (08/27/252320) Temp Min: 97.4 ??F (36.3 ??C) Max: 98.7 ??F (37.1 ??C) Temp core: BP: (!) 89/48 (08/27/252323) BP Min: 89/48 Max: 101/56 MAP (non-invasive) Noninvasive MAP (mmHg): 73 (08/27/252323) Noninvasive MAP (mmHg) Av.4 Min:68 Max: 76 Pulse: 102 (08/27/252323) Pulse Min: 95 Max: 105 Resp: 18 (08/27/252320) Resp Min: 18 Max: 18 SpO2: 95 % (08/27/252323) SpO2 Min: 85 % Max: 95 % Device: nasal cannula (08/27/252321) Flow Rate: No data recorded 08/27/252099 Weight: 93.4 kg (206 lb) Intake/Ouptut 24 hrs (7:00AM - 6:59 AM) Intake & Output (last 2 days) 08/26 Urine (mL/kg/hr) 100 Total Output 100 Net -100 Medications (drips): lactated ringers, Last Rate: 100 mL/hr (08/27/252329) Physical Examination Telemetry: Rhythm: normal sinus rhythm, sinus tachycardia (08/27/252317) Constitutional: No acute distress. Cardiovascular: RRR. Respiratory: Normal breath sounds Decreased bases No resp distress Abdominal: Soft with generalized tenderness. Distended. Not rigid, no guarding. Extremities: No Edema Neurological: Alert, Oriented, Cooperative. Best Eye Response: 4-->(E4) spontaneous (08/27/252058) Best Motor Response: 6-->(M6) obeys commands (08/27/252058) Best Verbal Response: 5-->(V5) oriented (08/27/252058) Calixto Coma Scale Score: 15 (08/27/252058) Lines, Drains & Airways Active LDAs Name Placement date Placement time Site Days Peripheral IV 20 G Anterior;Proximal;Right Forearm -- -- Forearm -- Peripheral IV 08/27/252330 18 G Anterior;Right;Upper Arm 08/27/252330 Arm less than 1 Results Reviewed: Laboratory Microbiology Radiology Pathology Hematology: Results from last 7 days Lab Units 08/27/251942 WBC 10*3/mm3 15.69* HEMOGLOBIN g/dL 11.1* MCV fL 93.4 PLATELETS 10*3/mm3 171 Results from last 7 days Lab Units 08/27/251942 NEUTROS ABS 10*3/mm3 14.59* LYMPHS ABS 10*3/mm3 0.43* EOS ABS 10*3/mm3 0.00 Chemistry: Estimated Creatinine Clearance: 39.5 mL/min (A) (by C-G formula based on SCr of 1.49 mg/dL (H)). Results from last 7 days Lab Units 08/27/251942 SODIUM mmol/L 143 POTASSIUM mmol/L 3.5 CHLORIDE mmol/L 110* CO2 mmol/L 15.6* BUN mg/dL 20.6 CREATININE mg/dL 1.49* GLUCOSE mg/dL 110* Results from last 7 days Lab Units 08/27/251942 CALCIUM mg/dL 8.1* Hepatic Panel: Results from last 7 days Lab Units 08/27/251942 ALBUMIN g/dL 3.4* TOTAL PROTEIN g/dL 5.4* BILIRUBIN mg/dL 1.0 AST (SGOT) U/L 456* ALT (SGPT) U/L 275* ALK PHOS U/L 106 Coagulation Labs: Cardiac Labs: Results from last 7 days Lab Units 08/27/251942 HSTROP T ng/L 39* Biomarkers: Results from last 7 days Lab Units 08/27/251942 LACTATE mmol/L 7.2* PROCALCITONIN ng/mL 68.30* FERRITIN ng/mL 160.00 U/A COVID-19 No results found for: COVID19 Arterial Blood Gases: Results from last 7 days Lab Units 08/27/25 2248 PH, ARTERIAL pH units 7.278* PCO2, ARTERIAL mm Hg 32.9* PO2 ART mm Hg 67.0* FIO2 % 21 Images: CT Abdomen Pelvis Without Contrast Result Date: 08/27/2025 Impression: 1.Findings consistent with acute cholecystitis with significant dilatation of the gallbladder with wall thickening and significant stranding and free fluid present. No definite gallstone identified. There is dilatation of the common bile duct extending to the ampulla with stranding seensurrounding the common bile duct. 2.Mass present within the left lower lobe near the base measuringup to 3.4 cm with surrounding smaller nodules. Findings are suspicious for malignancy. No previous imaging available for comparison. 3.Ancillary findings as described above. Electronically Signed: Nena Encarnacion MD 08/27/2025 10:25 PM EST Workstation ID: [id number] Echo: Results: Reviewed. I reviewed the patient's new laboratory and imaging results. I independently reviewed the patient's new images. Medications: Reviewed. Assessment A/P Hospital: LOS: 0 days ICU: 22m Active Hospital Problems Diagnosis POA Pancreatitis [K85.90] Yes Vasovagal syncope [R55] Unknown HTN (hypertension) [I10] Unknown Mixed hyperlipidemia [E78.2] Unknown COPD (chronic obstructive pulmonary disease) [J44.9] Unknown Former tobacco use [Z87.891] Not Applicable History of prostate cancer [Z85.46] Not Applicable BPH with obstruction/lower urinary tract symptoms [N40.1, N13.8] Unknown Loc is a 84 y.o. male admitted on 08/27/2025 with Pancreatitis [K85.90] Pancreatitis, acute [K85.90] Assessment/Management/Treatment Plan: Acute cholecystitis Septic shock Lactic acidosis of clinical significance Multiple lung nodules Left lower lobe 2.7 x 3.4 cm mass PMH: COPD, HTN, HLD, high-grade prostate cancer s/p initiation of external beam radiation and hormonal therapy (2014), and tobacco use Pulmonary [address] abdomen pelvis did show mass left lower lobe 2.7 x 3.4 cm and pleural-based nodule adjacent 1.3 cm, smaller nodules present. Patient did have bronchoscopy yesterday at outside hospital. Do not have results or procedure notes. Cardiovascular Initial lactate 7.2 repeat 7.6. Received IV fluids at outside hospital and additional 1 L normal saline on the floor. Will give additional 1 L LR. Continue LR at 150. Levophed for MAP goal greater than 65 and SBP >100. Continue to trend lactic acid No echo on file. No known history of heart failure. Troponin 39, repeat 34. EKG reviewed, normal sinus, no ischemic changes. No chest pain. Neuro No acute issues GI/Hepatology CT abdomen pelvis reviewed with general surgery. Acute cholecystitis, no evidence of pancreatitis on CT scan despite lipase 576, no free air or fluid and no bowel ischemia. Plan for CCY in a.m. pending patient's status. May need cholecystostomy tube if unable to have surgery LFTs 275/456, normal alk phos and T. bili. Acute hepatitis panel negative. No history of liver disease. CT with enlarged liver but no focal lesions or ascites. Repeat CMP in a.m. Renal Creatinine 1.49. Potassium 3.5, replete. Mag added on. Bicarb 15.ABG 7.2 on room air. Given2 A of bicarb. Will repeat BMP in 4 hours. Replete calcium. ID/Antibiotics Zosyn. Order blood cultures. Hematology Hemoglobin 11.1, platelets within normal limits. SCDs for DVT prophylaxis. Hold chemical given OR in AM. Endocrine Accu-Chek q6hr. No results found for: HGBA1C Results from last 7 days Lab Units 08/27/25 2312 GLUCOSE mg/dL 97 Diet: NPO Diet NPO Type: Sips with Meds No active supplement orders Advance Directives: Code Status and Medical Interventions: CPR (Attempt to Resuscitate); Full Support Ordered at: 08/27/252004 Code Status (Patient has no pulse and is not breathing): CPR (Attempt to Resuscitate) Medical Interventions (Patient has pulse or is breathing): Full Support Level Of Support Discussed With: Patient VTE Prophylaxis: Mechanical VTE prophylaxis orders are present. Disposition: ICU Plan of care and goals reviewed during interdisciplinary rounds. I discussed the patient's findings and my recommendations with patient RN hospitalist son general surgeon Time: 40 minutes of critical care provided. This time excludes other billable procedures. Time doesinclude preparation of documents, medical consultations, review of old records, and direct bedside care. Patient is at high risk for life-threatening deterioration due to Sepsis. He has a high risk of imminent or life-threatening deterioration, which requires the highest level of physician preparedness to intervene urgently. I devoted my full attention to the direct care of this patient for the amount of time indicated above. Time spent with family or surrogate(s) is included only if the patient was incapable of providing the necessary information or participating in medical decision making. Linda Rubin MD Pulmonary Critical Care Medicine 0059 Librado Bangura MD at 08/27/25 1910 [facility] Hospital Medicine Services HISTORY AND PHYSICAL Patient Name: Loc Thurman : 1940 Primary Care Physician: Provider, No Known Date of admission: 08/27/2025 Subjective Subjective Chief Complaint: Abdominal pain with nausea and vomiting HPI: Loc Thurman is a 84 y.o. 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 via transfer from [facility] for evaluation of pancreatitis and distended gallbladder. History of Present Illness Reason for Admit: Abdominal pain with nausea vomiting The patient presents to [facility] via transfer from [facility] for evaluation of abdominal pain with nausea and vomiting. He reports experiencing abdominal pain and chest discomfort, which began this morning after consuming a bowl of cereal for breakfast. The pain, described as a constant ache across his lower chest andupper abdomen, initially peaked at a severity of 10/10. [facility], morphine was administered, but it was ineffective and caused an adverse reaction. Patient is resting comfortably in bed, rating his current pain level is approximately 4/10. He also reports persistent nausea and multiple episodes of vomiting today. He has not experienced any diarrhea. His last fluid intake was coffee with breakfast. He was able to urinate and have a bowel movement this morning, but subsequent attempts toobtain a urine sample were unsuccessful. He experienced an episode of syncope during transportation due to a significant drop in blood pressure, necessitating ambulance transport. His blood pressure was recorded as 130/80 at the hospital, but it decreased to 83 systolic prior to transfer, requiring fluid administration. He is currently onlisinopril 30 mg for blood pressure management. He underwent a bronchoscopy yesterday due to the presence of lung nodules, a procedure he toleratedwell without complications. He felt well upon discharge. He has been under observation for two lungnodules in his lower lungs for several years, and a nodule in his upper left lung was discovered about a year ago. A recent biopsy of the upper left lung nodule revealed slight growth. He has not taken baby aspirin for a few days and is not on any anticoagulant therapy. He noticed a small amount ofbright red blood when coughing last night and this morning. He had an abnormal stress test a couple of weeks ago and sees Dr. Brooks for cardiology in [place]. Review of Systems Constitutional: Positive for activity change. Negative for chills, fatigue and fever. HENT: Negative. Eyes: Negative. Respiratory: Positive for cough and shortness of breath. Negative for chest tightness. Cardiovascular: Positive for chest pain. Negative for leg swelling. Gastrointestinal: Positive for abdominal pain, nausea and vomiting. Negative for abdominal distention and diarrhea. Endocrine: Negative. Genitourinary: Negative for decreased urine volume. Musculoskeletal: Negative. Skin: Negative. Allergic/Immunologic: Negative. Neurological: Positive for dizziness, syncope and light-headedness. Negative for weakness and headaches. Hematological: Negative. Psychiatric/Behavioral: Negative. Personal History No past medical history on file. No past surgical history on file. Family History: family history is not on file. Social History: reports that he does not drink alcohol. Social History Social History Narrative Not on file Medications: Glycopyrrolate-Formoterol, albuterol sulfate HFA, cetirizine, lisinopril, montelukast, and omeprazole No Known Allergies Objective Objective Vital Signs: Temp: [98.1 ??F (36.7 ??C)-98.7 ??F (37.1 ??C)] 98.7 ??F (37.1 ??C) Heart Rate: [95-99] 95 Resp: [18] 18 BP: (99-101)/(54-56) 101/56 Physical Exam HENT: Head: Normocephalic and atraumatic. Eyes: Extraocular Movements: Extraocular movements intact. Pupils: Pupils are equal, round, and reactive to light. Cardiovascular: Rate and Rhythm: Normal rate and regular rhythm. Pulses: Normal pulses. Heart sounds: Normal heart sounds. Pulmonary: Effort: Pulmonary effort is normal. No respiratory distress. Breath sounds: Normal breath sounds. No wheezing. Abdominal: General: Bowel sounds are normal. There is distension. Palpations: Abdomen is soft. Tenderness: There is abdominal tenderness. Musculoskeletal: Right lower leg: No edema. Left lower leg: No edema. Skin: General: Skin is warm and dry. Neurological: General: No focal deficit present. Mental Status: He is alert and oriented to person, place, and time. Psychiatric: Mood and Affect: Mood normal. Behavior: Behavior normal. Physical Exam Abdominal: Tenderness centralized around the belly button. Result Review: I have personally reviewed the results from the time of this admission to 08/27/2025 21:11 EST and agree with these findings: [x] Laboratory list / accordion [] Microbiology [x] Radiology [x] EKG/Telemetry [] Cardiology/Vascular [] Pathology [] Old records [] Other: Results Imaging - CT scan: Distended gallbladder. LAB RESULTS: Lab 08/27/251942 WBC 15.69* HEMOGLOBIN 11.1* HEMATOCRIT 34.2* PLATELETS 171 NEUTROS ABS 14.59* IMMATURE GRANS (ABS) 0.15* LYMPHS ABS 0.43* MONOS ABS 0.49 EOS ABS 0.00 MCV 93.4 PROCALCITONIN 68.30* LACTATE 7.2* Lab 08/27/251942 SODIUM 143 POTASSIUM 3.5 CHLORIDE 110* CO2 15.6* ANION GAP 17.4* BUN 20.6 CREATININE 1.49* EGFR 45.4* GLUCOSE 110* CALCIUM 8.1* Lab 08/27/251942 TOTAL PROTEIN 5.4* ALBUMIN 3.4* GLOBULIN 2.0 ALT (SGPT) 275* AST (SGOT) 456* BILIRUBIN 1.0 ALK PHOS 106 LIPASE 576* Lab 08/27/251942 HSTROP T 39* Brief Urine Lab Results None Microbiology Results (last 10 days) No results found for the last 240 hours. No radiology results from the last 24 hrs Assessment & Plan Assessment & Plan Pancreatitis Vasovagal syncope HTN (hypertension) Mixed hyperlipidemia COPD (chronic obstructive pulmonary disease) Former tobacco use History of prostate cancer BPH with obstruction/lower urinary tract symptoms Loc Thurman is a 84 y.o. 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 via transfer from [facility] for evaluation of pancreatitis and distended gallbladder. Patient/family describe syncopal episode in ambulance in route from [facility] this afternoon subjective SBP in the 80s. Current SBP 101, 1 L NS bolus now, followed by maintenance fluids. Repeat labs. Consult general surgery in a.m. pain control and antiemetics as needed. Assessment & Plan Code Status: Full code Pancreatitis - CT of abdomen revealed distended gallbladder with wall thickening and pericholecystic fluid. Bileduct 15 mm. Recommend further evaluation for gallbladder pathology. Pancreatic atrophy. - At [facility] normal LFTs, Lipase greater than 11,000, WBC 22,000, and lactate 4 - Received Zosyn at [facility], continue - Repeat labs - Pain control - Antiemetics as needed - General Surgery consult - CBC and CMP in a.m. - N.p.o. Elevated troponin Probably secondary to nausea/vomiting? - Repeat troponin - Stat EKG - Telemetry Hypotension History of HTN - Family described syncopal episode and ambulance - 1 L NS bolus now - Maintenance fluids - Hold lisinopril Elevated creatinine versus CARMITA - Creatinine 1.49 - Baseline creatinine unknown - Maintenance fluids - Avoid nephrotoxic agent COPD - Currently on room air - Encourage pulmonary toilet - Titrate oxygen as needed - DuoNebs BPH History of high-grade prostate cancer - Currently on doxazosin, this could be contributing to hypotension. Hold for now Hemoptysis Lung nodules - S/p bronch 08/26, awaiting biopsy result - Coughing up blood-tinged sputum, scant - Advised to monitor for any changes or increase in hemoptysis and report immediately DVT prophylaxis: Mechanical CODE STATUS: Full code Code Status (Patient has no pulse and is not breathing): CPR (Attempt to Resuscitate) Medical Interventions (Patient has pulse or is breathing): Full Support Level Of Support Discussed With: Patient Expected Discharge Expected discharge date/ time has not been documented. This note has been completed as part of a split-shared workflow. 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 Attending Admission Attestation I have performed an independent ubst-ff-gods diagnostic evaluation including performing an independent physical examination. I approve of the documented plan of care above that was reviewed and developed with the advanced consulting practice director (APC) and take responsibility for that plan along with itsassociated risks. I have updated the HPI as appropriate. Brief HPI Loc Thurman is a 84 y.o. 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 via transfer from [facility] for evaluation of pancreatitis and distended gallbladder. Patient reports acute onset abdominal pain, located around the epigastrium, nausea, vomiting. Denies fevers. Endorses decreased UOP. Attending Physical Exam: Temp: [98.1 ??F (36.7 ??C)-98.7 ??F (37.1 ??C)] 98.7 ??F (37.1 ??C) Heart Rate: [95-99] 95 Resp: [18] 18 BP: (99-101)/(54-56) 101/56 Constitutional: No acute distress, awake, alert HENT: NCAT, mucous membranes dry Respiratory: Clear to auscultation bilaterally, respiratory effort normal Cardiovascular: RRR, no murmurs, rubs, or gallops Gastrointestinal: Positive bowel sounds, distended, epigastric, generalized tenderness Musculoskeletal: No bilateral ankle edema Psychiatric: Appropriate affect, cooperative Neurologic: Oriented x 3, Skin: No rashes Result Review: I have personally reviewed the results from the time of this admission to 08/27/2025 22:26 EST and agree with these findings: [x] Laboratory list / accordion [] Microbiology [x] Radiology [] EKG/Telemetry [] Cardiology/Vascular [] Pathology [] Old records [] Other: Most notable findings include: summarized Assessment and Plan: Acute pancreatitis AG Metabolic acidosis Lactic acidosis Transaminitis CARMITA( unknown cr baseline) - continue IV fluids - GS consulted - monitor UOP - obtain stat ABG to assess severity of acidosis - transfer to ICU : Dr. Rubin accepted See assessment and plan documented by APC above and updated/edited by me as appropriate. Librado Bangura MD 08/27/25 Contains text generated by [facility] [facility] 2231 Operative/Procedure Notes (most recent note) Hermes Jaramillo MD at 08/28/25 0820 Operative Report Patient Name: Loc Thurman Date of : 1940 [id number] 08/28/2025 PREOPERATIVE DIAGNOSIS: Acute cholecystitis with sepsis POSTOPERATIVE DIAGNOSIS: Same PROCEDURE PERFORMED: Laparoscopic cholecystectomy with intraoperative cholangiography SURGEON: Hermes Jaramillo MD GLASS BULB SILVERER: Annie Jorgensen PA-C. Annie Jorgensen PA-C was responsible for performing the following activities: Retraction, Placing Dressing, and Held/Positioned Camera and their skilled assistance was necessary for the success of this case. SPECIMENS: Gallbladder and contents ANESTHESIA: General. EBL: Minimal FINDINGS: 1. Gallbladder with acute cholecystitis 2. Intraoperative cholangiogram demonstrated excellent filling of the cystic, common, right and left hepatic ducts with good flow of contrast into the duodenum without retained stone or filling defect. The biliary tree itself, including the pancreatic duct, was very dilated but there was no obstruction or retained stone noted. 3. The remainder of the intra-abdominal organs including the right colon were all viable without evidence of being the primary source of the patient's sepsis. INDICATIONS: The patient is a 84 y.o. male with a history of abdominal pain, concerning for pancreatitis. However, subsequent imaging including his laboratory exam was more concerning for acute cholecystitis, andhe continued to have evidence of sepsis.. Preoperative imaging including CT scan confirmed the diagnosis. Given the failure of resuscitation, and the concern of ongoing sepsis, the decision was made to proceed to the operating room for definitive management. The risks and benefits of Laparoscopic cholecystectomy with cholangiography, as well as any other indicated and/or related procedure, were discussed with the patient and their family and they agreed to proceed. DESCRIPTION OF PROCEDURE: After obtaining informed consent, the patient was taken to the operating room and placed in the supine position. After appropriate DVT and antibiotic prophylaxis, general anesthesia was induced. The abdomen was prepped and draped in standard sterile fashion, and after infiltrating the skin with local anesthetic, a 12mm skin incision was made superior to the umbilicus . Blunt dissection was carried down to the base of the umbilicus, which was grasped with a Marielena clamp and elevated anteriorly. A vertical midline incision was made in the fascia, and blunt dissection was carried down into the peritoneal cavity. A stay suture of 0 Vicryl was then placed in [id number] fashion around the defect, and a blunt trocar advanced without difficulty into the abdominal cavity. The abdomen was insufflated with carbon dioxide gas to a pressure of 15 mmHg, and a laparoscope advanced through the trocar and the abdominal contents were inspected. There was no evidence of bowel, bladder, or visceral injury with entrance of the trocar . At this point, after infiltrating the skin with local anesthetic, a standard laparoscopic cholecystectomy trocar placement schema was followed. The gallbladder was grasped and elevated superiorly. It was clearly acutely inflamed but did not have evidence of gangrene. Using meticulous blunt dissection , the cystic duct and cystic artery were bluntly dissected free of other structures and clearly identified using the Critical View technique. The cystic artery was then clipped twice proximally and once distally, and divided between the clips. The cystic duct was then clipped at its junction with the infundibulum of the gallbladder, and transected across 50% of its circumference. A cholangiogram catheter was then placed within the duct, and on-table cholangiography under fluoroscopy was obtained. There was excellent filling of the cystic, common, right and left hepatic ducts with good flow of contrast into the duodenum without retainedstone or filling defect. However, there was noted to be significant dilatation of the entire biliary tree including the pancreatic duct. The cholangiogram catheter was then removed, and the cystic duct was ligated using a 2-0 silk suture tied laparoscopically, reinforced with hemoclips, and divided. The gallbladder was then dissected free of the gallbladder fossa using a combination of electrocautery and blunt dissection . There was a small posterior branch of the artery that was clipped and divided . The gallbladder was then placed in an Endo Catch bag, and removed from the inferiormost trocar site. It was inspected on the back table, correlated with intra-operative findings, and passed offas specimen. The right upper quadrant was then inspected. The cystic duct and cystic artery stumps were intact without bleeding or biliary leak. The right upper quadrant was irrigated with saline until clear. Allbleeding was controlled with electrocautery. The abdomen was deflated and reinsufflated to make sure pneumoperitoneum was not tamponading any bleeding and there was none. We then began a brief inspection of the small bowel which was normal. The terminal ileum and ileocecal valve were normal. The ascending colon was normal without ischemia. The transverse colon was normal without ischemia. There is no evidence of ischemic bowel in the abdomen and no primary source of sepsis found otherwise. Identified VARGAS drain was placed in the gallbladder fossa, and brought out through the lateralmost trocar site. It was sutured to the skin using a nylon suture. He abdomen was again irrigated with saline until clear, and all trocars removed under direct and laparoscopic visualization. The fascia at the inferiormost incision was closed using the previously placed 0 Vicryl suture. The wounds were irrigated with normal saline, and closed in each area using absorbable subcuticular suture. The incisions were dressed in standard sterile fashion and covered with dry dressings. The VARGAS drain was dressed in standard sterile fashion, and placed to bulb suction. The patient recovered from anesthesia, and transferred to the PACU intubated in critical condition. All sponge and needle counts were correct timestwo at the completion of the procedure. COMPLICATIONS: None Hermes Jaramillo MD 08/28/2025 09:22 EST 2163 Physician Progress Notes (most recent note) Flora Baig MD at 09/01/25 1036 [facility] PROGRESS NOTE Patient Name: Loc Thurman : 1940 Date of Admission: 08/27/2025 Primary Care Physician: Lisa Arreola APRN Subjective Subjective CC: Abd pain HPI: Pt feeling ok today. NG is uncomfortable and making it hard for him to eat. Minimal abd pain. No BPbut has had flatus. Objective Objective Vital Signs: Temp: [97.8 ??F (36.6 ??C)-99.3 ??F (37.4 ??C)] 97.8 ??F (36.6 ??C) Heart Rate: [77-92] 77 Resp: [16-20] 18 BP: (153-185)/(73-100) 162/82 Flow (L/min) (Oxygen Therapy): [2] 2 Physical Exam Constitutional: General: He is not in acute distress. Appearance: He is obese. HENT: Nose: Comments: NG in place Cardiovascular: Rate and Rhythm: Normal rate and regular rhythm. Heart sounds: Normal heart sounds. Pulmonary: Effort: Pulmonary effort is normal. Breath sounds: Normal breath sounds. Abdominal: General: There is no distension. Palpations: Abdomen is soft. Tenderness: There is no abdominal tenderness. Musculoskeletal: Right lower leg: No edema. Left lower leg: No edema. Neurological: General: No focal deficit present. Mental Status: He is alert. Mental status is at baseline. Psychiatric: Mood and Affect: Mood normal. Thought Content: Thought content normal. Results Reviewed: LAB RESULTS: Lab 08/31/25 0338 08/30/25 0403 08/29/25 1618 08/29/25 1316 08/29/25 0942 08/29/25 0607 08/29/25 0024 08/28/25 1918 08/28/25 0955 08/28/25 0843 08/28/25 0613 08/28/25 0135 08/27/25 2234 08/27/25 1943 WBC 13.14* 12.35* -- -- -- 15.08* -- -- 29.95* 29.84* -- 42.13* -- -- 15.69* HEMOGLOBIN 9.4* 8.3* -- -- -- 8.5* -- -- 7.2* 8.3* -- 9.2* -- -- 11.1* HEMOGLOBIN, POC -- -- -- -- -- -- -- -- -- 7.8* -- -- -- -- HEMATOCRIT 29.2* 26.5* -- -- -- 26.8* -- -- 23.2* 26.9* -- 28.9* -- -- 34.2* HEMATOCRIT POC -- -- -- -- -- -- -- -- -- 23* -- -- -- -- PLATELETS 102* 96* -- -- -- 95* -- -- 137* 136* -- 183 -- -- 171 NEUTROS ABS 11.30* -- -- -- -- -- -- -- 26.36* -- 38.34* -- -- 14.59* IMMATURE GRANS (ABS) -- -- -- -- -- -- -- -- -- -- -- -- -- 0.15* LYMPHS ABS -- -- -- -- -- -- -- -- -- -- -- -- -- 0.43* MONOS ABS -- -- -- -- -- -- -- -- -- -- -- -- -- 0.49 EOS ABS 0.26 -- -- -- -- -- -- -- 0.00 -- 0.00 -- -- 0.00 MCV 93.6 93.6 -- -- -- 92.4 -- -- 99.6* 95.4 -- 94.8 -- -- 93.4 PROCALCITONIN 15.80* -- -- -- -- -- -- -- -- -- -- -- -- 68.30* LACTATE -- -- 2.3* 2.9* 3.7* 4.5* 5.1* < > 10.4* -- 11.6* < > 7.6* 7.2* PROTIME -- -- -- -- -- -- -- -- -- -- 18.2* -- -- -- HSTROP T -- -- -- -- -- -- -- -- -- -- -- -- 34* 39* < > = values in this interval not displayed. Lab 09/01/2540008/31/2533708/30/2540208/29/25 0607 08/28/25 0955 08/28/25 0613 08/28/25 0135 SODIUM 148* 151* 148* 146* 145 < > 143 POTASSIUM 3.6 3.2* 3.5 4.1 3.7 < > 3.7 CHLORIDE 113* 114* 109* 105 106 < > 106 CO2 26.8 28.2 30.9* 26.0 18.3* < > 17.9* ANION GAP 8.2 8.8 8.1 15.0 20.7* < > 19.1* BUN 27.2* 29.3* 35.1* 38.4* 31.2* < > 25.7* CREATININE 0.75* 0.77 1.16 1.57* 1.72* < > 1.85* EGFR 87.9 87.2 61.3 42.7* 38.2* < > 35.0* GLUCOSE 108* 114* 98 119* 112* < > 78 CALCIUM 7.7* 7.8* 7.9* 7.9* 9.2 < > 7.6* MAGNESIUM 2.5* 2.6* 2.7* 2.3 -- -- 1.8 PHOSPHORUS 2.0* 1.7* 2.5 5.2* -- -- -- < > = values in this interval not displayed. Lab 09/01/2540008/31/2533708/30/2540208/28/25 0955 08/28/25 0613 08/27/25 1943 TOTAL PROTEIN 5.0* 5.1* 5.0* 5.2* 4.6* 5.4* ALBUMIN 3.0* 3.0* 2.9* 3.5 2.9* 3.4* GLOBULIN -- 2.1 2.1 -- 1.7 2.0 ALT (SGPT) 98* 144* 199* 234* 235* 275* AST (SGOT) 38 71* 144* 259* 272* 456* BILIRUBIN 0.6 0.6 0.7 0.8 0.7 1.0 INDIRECT BILIRUBIN 0.1 -- -- 0.2 -- -- BILIRUBIN DIRECT 0.5* -- -- 0.6* -- -- ALK PHOS 108 107 93 71 101 106 LIPASE -- 110* 137* -- 80* 576* Lab 08/28/25 0613 08/27/25 2234 08/27/251942 HSTROP T -- 34* 39* PROTIME 18.2* -- -- INR 1.41* -- -- Lab 08/28/25 0638 08/28/25 0613 08/27/251942 IRON -- -- 86 IRON SATURATION (TSAT) -- -- 28 TIBC -- -- 311 TRANSFERRIN -- -- 209 FERRITIN -- -- 160.00 ABO TYPING A < > -- RH TYPING Positive < > -- ANTIBODY SCREEN Negative -- -- < > = values in this interval not displayed. Lab 08/29/25 1710 08/29/25 0351 08/28/252003 PH, ARTERIAL 7.490* 7.407 7.408 PCO2, ARTERIAL 31.6* 36.8 37.6 PO2 ART 145.0* 144.0* 157.0* FIO2 40 45 45 HCO3 ART 24.0 23.1 23.7 BASE EXCESS ART 0.8 -1.4* -0.8* CARBOXYHEMOGLOBIN 1.1 1.1 1.1 Brief Urine Lab Results None Microbiology Results Abnormal None PSYCH TECH FEES - Fiberoptic Endo Eval Swallow Result Date: 08/31/2025 This procedure was auto-finalized with no dictation required. I have personally reviewed the therapy plans: [] PT/OT/ ST Therapy Plans Current medications: Scheduled Meds:arformoterol, 15 mcg, Nebulization, BID - RT budesonide, 0.5 mg, Nebulization, BID - RT heparin (porcine), 5,000 Units, Subcutaneous, Q8H lisinopril, 40 mg, Nasogastric, Q24H montelukast, 10 mg, Nasogastric, Nightly mupirocin, 1 Application, Each Nare, BID pantoprazole, 40 mg, Intravenous, Q AM piperacillin-tazobactam, 4.5 g, Intravenous, Q8H potassium chloride, 40 mEq, Oral, Q4H senna-docusate sodium, 2 tablet, Nasogastric, BID sodium chloride, 10 mL, Intravenous, Q12H terazosin, 5 mg, Nasogastric, Nightly Continuous Infusions: PRN Meds:. [DISCONTINUED] acetaminophen OR acetaminophen OR [DISCONTINUED] acetaminophen senna-docusate sodium AND polyethylene glycol AND [DISCONTINUED] bisacodyl AND bisacodyl Calcium Replacement - Follow Nurse / BPA Driven Protocol dextrose glucagon (human recombinant) hydrALAZINE HYDROmorphone hydrOXYzine ipratropium-albuterol Magnesium Standard Dose Replacement - Follow Nurse / BPA Driven Protocol melatonin naloxone nitroglycerin [DISCONTINUED] ondansetron ODT OR ondansetron Phosphorus Replacement - Follow Nurse / BPA Driven Protocol Potassium Replacement - Follow Nurse / BPA Driven Protocol sodium chloride Assessment & Plan Assessment & Plan Active Hospital Problems Diagnosis POA Acute pancreatitis [K85.90] Yes Respiratory insufficiency [R06.89] Yes Shock [R57.9] Unknown Vasovagal syncope [R55] Yes HTN (hypertension) [I10] Yes Mixed hyperlipidemia [E78.2] Yes COPD (chronic obstructive pulmonary disease) [J44.9] Yes Former tobacco use [Z87.891] Not Applicable History of prostate cancer [Z85.46] Not Applicable BPH with obstruction/lower urinary tract symptoms [N40.1, 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 Brief Hospital Course to date: Loc Thurman is a 84 y.o. male with COPD, hypertension, hyperlipidemia, high- grade prostate cancerstatus post external beam radiation and hormone therapy and tobacco use who presented for pancreatitis and cholecystitis. He initially was admitted to the floor however decompensated and required IV pressors and was therefore transferred to the ICU. He underwent cholecystectomy with Dr. Jaramillo on 08/28 with drain placement. He was extubated on 08/29. Hospital course complicated by shock/SIRS due toacute pancreatitis as well as CARMITA. Patient has had an NG tube in place with tube feeds running. He was transferred to the floor on 09/01. Acute cholecystitis status post CCY Acute pancreatitis -improving Shock/SIRS-improved - Went to the OR with Dr. Jaramillo on 08/28 for CCY, he is following -Path shows chronic cholecystitis with reactive changes -Blood cultures no growth to date - Patient reports pain overall improved, he is tolerating a modified diet. Still has NG in place with Keofeed and tube feeds running. Plan for possible removal of the NG today - Speech following - Drain remains in place, possible removal in the next 24 to 48 hours - Continue IV antibiotics Hypernatremia -Improved to 148, likely due to tube feeds/free water deficit - Attempting to transition patient to p.o. diet - Will monitor for now with a.m. labs Hypophosphatemia -Improved but still low - Replace per protocol Syncope - Patient had syncopal episode on the way to the hospital, was found to have low blood pressure - Likely secondary to sepsis/acute illness - Blood pressures have been stable, home medications have been restarted - Monitor for return of symptoms COPD -Not currently in acute exacerbation - Continue home inhalers Hypertension - Patient's lisinopril restarted, increased to 40 in the ICU - Continue close monitoring Hyperlipidemia - Continue statin High-grade prostate cancer - status post external beam radiation and hormone therapy 2014 - Continue terazosin Expected Discharge Location and Transportation: Inpatient rehab Expected Discharge Expected discharge date/ time has not been documented. VTE Prophylaxis: Pharmacologic & mechanical VTE prophylaxis orders are present. AM-PAC 6 Clicks Score (PT): 11 (08/31/251999) CODE STATUS: Code Status and Medical Interventions: CPR (Attempt to Resuscitate); Full Support Ordered at: 08/27/252004 Code Status (Patient has no pulse and is not breathing): CPR (Attempt to Resuscitate) Medical Interventions (Patient has pulse or is breathing): Full Support Level Of Support Discussed With: Patient Flora Baig MD 09/01/25 1050 Consult Notes (most recent note) Hermes Jaramillo MD at 08/27/25 2111 Consult Orders 1. Inpatient General Surgery Consult [[id number]] ordered by Nesha Lopes APRN at 08/27/252003 Patient Name: Loc Thurman Date of : 1940 [id number] Patient Care Team: Provider, No Known as PCP - General General Surgery Consult Note Date of Consultation: 08/27/25 Referring Physician : Librado Bangura MD Reason for Consult : Pancreatitis Subjective I have been asked by Librado Bangura MD to see Loc Thurman , a 84 y.o. male in consultation for pancreatitis. Mr. Thurman has a known history of COPD, a past history of pancreatitis, hypertension, prostate cancer status post XRT, hypercholesterolemia, and a relatively newly diagnosed left lung mass. He underwent bronchoscopy at [facility] yesterday. He states postoperatively he did well and was discharged home. He states he had trouble sleeping last night. This morning he had some coughing as well as some scant hemoptysis which he was told to expect after this procedure. He ate breakfast and then began a bandlike pain in his upper abdomen which radiated to his back. This wasassociated with some nausea. He had had a history of pancreatitis approximately 10 years prior. Dueto the severity of his pain he presented to an outside hospital. Subsequent evaluation there demonstrated a lipase of 11,[address] scanning of the chest abdomen pelvis revealed evidence of a distended gallbladder with questionable gallbladder wall thickening and pericholecystic fluid. He was transferred to our facility for higher level of care. Currently is relaxing in bed though he does report some upper abdominal pain. No other current complaints. Allergy: No Known Allergies Medications: [Held by provider] lisinopril, 15 mg, Oral, BID montelukast, 10 mg, Oral, Nightly [START ON 08/28/2025] pantoprazole, 40 mg, Oral, Q AM piperacillin-tazobactam, 3.375 g, Intravenous, Once [START ON 08/28/2025] piperacillin-tazobactam, 3.375 g, Intravenous, Q8H potassium chloride ER, 20 mEq, Oral, Once sodium chloride, 1,000 mL, Intravenous, Once sodium chloride, 10 mL, Intravenous, Q12H sodium chloride, 100 mL/hr No current facility-administered medications on file prior to encounter. Current Outpatient Medications on File Prior to Encounter Medication Sig albuterol sulfate HFA 108 (90 Base) MCG/ACT inhaler Inhale 2 puffs Every 4 (Four) Hours As Needed for Wheezing. cetirizine (zyrTEC) 5 MG tablet Take 1 tablet by mouth Daily. Glycopyrrolate-Formoterol (Bevespi Aerosphere) 9-4.8 MCG/ACT aerosol Inhale. lisinopril (PRINIVIL,ZESTRIL) 10 MG tablet Take 1.5 tablets by mouth 2 (Two) Times a Day. montelukast (SINGULAIR) 10 MG tablet Take 1 tablet by mouth Every Night. omeprazole (priLOSEC) 20 MG capsule Take 1 capsule by mouth Daily. PMHx: Hypertension Hypercholesterolemia COPD History of pancreatitis Prostate cancer status post radiation Past Surgical History: Open appendectomy Bilateral inguinal hernia repairs Cataracts Family History: Significant for cancers Social History: Pt lives in [facility]. Tobacco use: Denies , quit 35 years ago EtOH use : Denies Illicit drug use: Denies Review of Systems Constitutional: No fevers, chills or malaise Eyes: Denies visual changes Cardiovascular: Denies chest pain, palpitations Pulmonary: Denies cough or shortness of breath Abdominal/ GI: See HPI Genitourinary: Denies dysuria or hematuria Musculoskeletal: Denies any but chronic joint aches, pains or deformities Psychiatric: No recent mood changes Neurologic: No paresthesias or loss of function Objective Physical Exam: Vital Signs BP 101/56 (BP Location: Left arm, Patient Position: Lying) Pulse 95 Temp 98.7 ??F (37.1 ??C) (Oral) Resp 18 SpO2 92% No intake or output data in the 24 hours ending 08/27/252110 Physical Exam: Head: Normocephalic, atraumatic. Eyes: Pupils equal, round, react to light and accommodation. Mouth: Oral mucosa without lesions, Neck: No masses, lymphadenopathy or carotid bruits bilaterally CV: Rhythm and rate regular , no murmurs, rubs or gallops Lungs: Clear to auscultation bilaterally Abdomen: Bowel sounds positive , soft, mildly tender to deep palpation. No peritonitis. Reducible umbilical hernia. R paramedian scar c/w appendectomy/ Groin : No obvious hernias bilaterally Extremities: No cyanosis, clubbing or edema bilaterally Lymphatics: No abnormal lymphadenopathy appreciated Neurologic: No gross deficits Results Review: I have personally reviewed all of the recent lab and imaging results available at this time. Laboratory exam at the outside hospital revealed a lipase of 11,000. Laboratory exam here demonstrates a white count of 15,000 with a hemoglobin 11.1 and platelet count of 171. There is a left shift. His lipase is 576 with a procalcitonin of 68.3 a lactate of 7.2. His AST is 456 ALT 275 but alkaline phosphatase of 106 and a bilirubin of 1.0. His creatinine is 1.49. His high-sensitivity troponin is 39. The CT scan report from the outside hospital was viewed by me, but no images were sent with the patient and no disc was sent either. The CT scan report demonstrates no evidence of pulmonary embolus, but does report a distended gallbladder with Zachariah cholecystic fluid and questionable gallbladder wall thickening. There is an atrophic pancreas. There is no free air mentioned. No evidence of bowel obstruction noted. Assessment and Plan: Pancreatitis- He has evidence of pancreatitis, and I am unsure if he truly has cholecystitis or not. I am going to repeat his CT scan overnight tonight without contrast to evaluate his intra-abdominal cavity as well as his cholecystitis. Depending on his resolution of his pancreatitis, we may be able to proceed with cholecystectomy as early as tomorrow, but this will depend on multiple clinical factors. I am also concerned that he may have an acute hepatitis, possibly related to recent anesthesia and/or medication reaction related to his recent procedure given the transaminitis with normal alk phos and bilirubin. I will follow this patient with you. 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 I discussed the patient's findings and my recommendations with the patient and/or family, as well as the primary team Hermes Jaramillo MD 08/27/25 21:11 EST Dictated using KXEN Dictation CT scan personally reviewed. This shows acute cholecystitis, no evidence of pancreatitis and no other acute issues (no free air or fluid, no evidnece of bowel ischemia). Patient was moved to ICU for hypotension, started on pressors. I spoke with Dr. Scottie of ICU service as well, who will manage ongoing resuscitation. If stabilizes, will plan for CCY later this morning, otherwise may need cholecystostomy tube placement. Will follow ongoing resuscitation. Hermes Jaramillo MD 00:03 EST' 0004 Physical Therapy Notes (most recent note) Tee Marina, PT Student at 08/31/25 0948 Version 1 of 1 Attestation signed by Flora Galvan, PT at 08/31/25 1304 Ellen Galvan, PT 08/31/2025 13:04 EST Patient Name: Loc Thurman : 1940 Today's Date: 08/31/2025 Admit Date: 08/27/2025 Visit Dx: ICD-10-CM ICD-9-CM 1. Acute pancreatitis, unspecified complication status, unspecified pancreatitis type K85.90 577.0 2. Cholecystitis K81.9 575.10 3. 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 Respiratory insufficiency Shock Past Medical History: Diagnosis Date Cancer COPD (chronic obstructive pulmonary disease) Hyperlipidemia Hypertension Past Surgical History: Procedure Laterality Date APPENDECTOMY CHOLECYSTECTOMY WITH INTRAOPERATIVE CHOLANGIOGRAM N/A 08/28/2025 Procedure: CHOLECYSTECTOMY LAPAROSCOPIC INTRAOPERATIVE CHOLANGIOGRAM; Surgeon: Hermes Jaramillo MD; Location: [facility]; Service: General; Laterality: N/A; COLONOSCOPY HERNIA REPAIR General Information Row Name 08/31/25 1027 Physical Therapy Time and Intention Document Type therapy note (daily note) (P) -SULAIMAN Mode of Treatment individual therapy;physical therapy (P) -SULAIMAN Row Name 08/31/25 1027 General Information Patient Profile Reviewed yes (P) -SULAIMAN Existing Precautions/Restrictions fall;oxygen therapy device and L/min;other (see comments) (P) abdominal incision; confusion; NG -SULAIMAN Barriers to Rehab medically complex;previous functional deficit;cognitive status (P) -SULAIMAN Row Name 08/31/25 1027 Cognition Orientation Status (Cognition) oriented x 3 (P) -SULAIMAN Row Name 08/31/25 1027 Safety Issues/Impairments Affecting Functional Mobility Safety Issues Affecting Function (Mobility) safety precaution awareness;safety precautions follow-through/compliance;awareness of need for assistance;sequencing abilities;insight into deficits/self-awareness;judgment (P) -SULAIMAN Impairments Affecting Function (Mobility) balance;cognition;coordination;endurance/activity tolerance;pain;postural/trunk control;shortness of breath;strength (P) -SULAIMAN Cognitive Impairments, Mobility Safety/Performance awareness, need for assistance;insight into defic its/self-awareness;judgment;problem-solving/reasoning;safety precaution awareness;safety precautionfollow-through;sequencing abilities (P) -SULAIMAN User Jung (r) = Recorded By, (t) = Taken By, (c) = Cosigned By Initials Name Provider Type Tee Taylor, PT Student PT Student Mobility Row Name 08/31/25 1027 Bed Mobility Bed Mobility supine-sit (P) -SULAIMAN Supine-Sit Reynolds (Bed Mobility) moderate assist (50% patient effort);2 person assist;verbal cues (P) -SULAIMAN Assistive Device (Bed Mobility) bed rails;head of bed elevated;repositioning sheet (P) -SULAIMAN Comment, (Bed Mobility) VCs for sequencing, assist at trunk and BLEs, increased time and effort, R lateral lean sitting EOB (P) -SULAIMAN Row Name 08/31/25 1027 Bed-Chair Transfer Bed-Chair Reynolds (Transfers) moderate assist (50% patient effort);2 person assist;verbal cues(P) -SULAIMAN Assistive Device (Bed-Chair Transfers) other (see comments) (P) BUE support -SULAIMAN Comment, (Bed-Chair Transfer) VCs for sequencing (P) -SULAIMAN Row Name 08/31/25 1027 Sit-Stand Transfer Sit-Stand Reynolds (Transfers) minimum assist (75% patient effort);2 person assist;verbal cues (P) -SULAIMAN Assistive Device (Sit-Stand Transfers) other (see comments) (P) B UE support -SULAIMAN Comment, (Sit-Stand Transfer) VCs for upright posture (P) -SULAIMAN Row Name 08/31/25 1027 Gait/Stairs (Locomotion) Reynolds Level (Gait) moderate assist (50% patient effort);2 person assist;verbal cues (P) -SULAIMAN Assistive Device (Gait) other (see comments) (P) B CAR FRAMER -SULAIMAN Distance in Feet (Gait) 16 (P) -SULAIMAN Deviations/Abnormal Patterns (Gait) bilateral deviations;cassidy decreased;stride length decreased;gait speed decreased (P) -SULAIMAN Bilateral Gait Deviations forward flexed posture;heel strike decreased (P) -SULAIMAN Comment, (Gait/Stairs) took 4 steps from chair and and back to chair x2, step to pattern, no LOB orknee buckling observed (P) -SULAIMAN User Jung (r) = Recorded By, (t) = Taken By, (c) = Cosigned By Initials Name Provider Type Tee Taylor, PT Student PT Student Obj/Interventions Row Name 08/31/25 1032 Balance Balance Assessment sitting static balance;sitting dynamic balance;standing static balance;standing dynamic balance (P) -SULAIMAN Static Sitting Balance minimal assist (P) -SULAIMAN Dynamic Sitting Balance minimal assist (P) -SULAIMAN Position, Sitting Balance sitting edge of bed;sitting in chair;supported (P) -SULAIMAN Static Standing Balance minimal assist;2-person assist;verbal cues (P) -SULAIMAN Dynamic Standing Balance moderate assist;2-person assist;verbal cues (P) -SULAIMAN Position/Device Used, Standing Balance supported (P) -SULAIMAN Balance Interventions sitting;standing;sit to stand;supported;static;dynamic (P) -SULAIMAN User Jung (r) = Recorded By, (t) = Taken By, (c) = Cosigned By Initials Name Provider Type Tee Taylor, PT Student PT Student Goals/Plan No documentation. Clinical Impression Row Name 08/31/25 1033 Pain Pretreatment Pain Rating 0/10 - no pain (P) -SULAIMAN Posttreatment Pain Rating 0/10 - no pain (P) -SULAIMAN Row Name 08/31/25 1033 Plan of Care Review Plan of Care Reviewed With patient;child (P) -SULAIMAN Progress improving (P) -SULAIMAN Outcome Evaluation Pt demo improvements in functional mobility this date, still below baseline d/t deficits in strength, balance, and endurance warranting further skilled IPPT. Pt amb 16 ft w/ B CAR FRAMER modAx2, further mobility limited by weakness and fatigue. Rec d/c IRF once medically ready. (P) -SULAIMAN Marie Name 08/31/25 1033 Vital Signs Pre Systolic BP Rehab 175 (P) -SULAIMAN Pre Treatment Diastolic BP 105 (P) -SULAIMAN Post Systolic BP Rehab 180 (P) -SULAIMAN Post Treatment Diastolic BP 92 (P) -SULAIMAN Posttreatment Heart Rate (beats/min) 90 (P) -SULAIMAN O2 Delivery Pre Treatment nasal cannula (P) -SULAIMAN O2 Delivery Intra Treatment nasal cannula (P) -SULAIMAN Post SpO2 (%) 96 (P) -SULAIMAN O2 Delivery Post Treatment nasal cannula (P) -SULAIMAN Pre Patient Position Supine (P) -SULAIMAN Intra Patient Position Standing (P) -SULAIMAN Post Patient Position Sitting (P) -SULAIMAN Row Name 08/31/25 1033 Positioning and Restraints Pre-Treatment Position in bed (P) -SULAIMAN Post Treatment Position chair (P) -SULAIMAN In Chair notified nsg;reclined;sitting;call light within reach;encouraged to call for assist;with family/caregiver;on mechanical lift sling;waffle cushion;legs elevated (P) -SULAIMAN User Jung (r) = Recorded By, (t) = Taken By, (c) = Cosigned By Initials Name Provider Type Tee Taylor, PT Student PT Student Outcome Measures Row Name 08/31/25 1035 How much help from another person do you currently need... Turning from your back to your side while in flat bed without using bedrails? 2 (P) -SULAIMAN Moving from lying on back to sitting on the side of a flat bed without bedrails? 2 (P) -SULAIMAN Moving to and from a bed to a chair (including a wheelchair)? 2 (P) -SULAIMAN Standing up from a chair using your arms (e.g., wheelchair, bedside chair)? 2 (P) -SULAIMAN Climbing 3-5 steps with a railing? 1 (P) -SULAIMAN To walk in hospital room? 2 (P) -SULAIMAN AM-PAC 6 Clicks Score (PT) 11 (P) -SULAIMAN Highest Level of Mobility Goal Move to Chair/Commode-4 (P) -SULAIMAN Row Name 08/31/25 1035 Functional Assessment Outcome Measure Options AM-PAC 6 Clicks Basic Mobility (PT) (P) -SULAIMAN User Jung (r) = Recorded By, (t) = Taken By, (c) = Cosigned By Initials Name Provider Type Tee Taylor, PT Student PT Student Physical Therapy Education Title: PT OT PSYCH TECH Therapies (In Progress) Topic: Physical Therapy (In Progress) Point: Mobility training (Done) Learning Progress Summary Patient Acceptance, E, VU,NR by SULAIMAN at 08/31/2025 1036 Acceptance, E, NR by KG at 08/30/2025 0903 Point: Home exercise program (Not Started) Learner Progress: Not documented in this visit. Point: Body mechanics (Done) Learning Progress Summary Patient Acceptance, E, VU,NR by SULAIMAN at 08/31/2025 1036 Acceptance, E, NR by KG at 08/30/2025 0903 Point: Precautions (Done) Learning Progress Summary Patient Acceptance, E, VU,NR by SULAIMAN at 08/31/2025 1036 Acceptance, E, NR by KG at 08/30/2025 09 User Jung Initials Effective Dates Name Provider Type Discipline KG 03/10/20 - Flora Gavlan, PT Physical Therapist PT SULAIMAN 06/03/25 - Tee Marina, PT Student PT Student PT PT Recommendation and Plan Recommended discharge disposition is based on the functional assessment performed by PT/OT/Speech therapy (as applicable) and may not reflect the medical necessity determined by your provider or services covered by an individual patient's insurance plan or patient resource. Progress: (P) improving Outcome Evaluation: (P) Pt demo improvements in functional mobility this date, still below baselined/t deficits in strength, balance, and endurance warranting further skilled IPPT. Pt amb 16 ft w/ BHHA modAx2, further mobility limited by weakness and fatigue. Rec d/c IRF once medically ready. Time Calculation: PT Charges Row Name 08/31/25 1036 Time Calculation Start Time 0948 (P) -SULAIMAN PT Received On 08/31/25 (P) -SULAIMAN Timed Charges 02390 - PT Therapeutic Activity Minutes 24 (P) -SULAIMAN Total Minutes Timed Charges Total Minutes 24 (P) -SULAIMAN Total Minutes 24 (P) -SULAIMAN User Jung (r) = Recorded By, (t) = Taken By, (c) = Cosigned By Initials Name Provider Type Tee Taylor N, PT Student PT Student Therapy Charges for Today Code Description Service Date Service Provider Modifiers Qty 18164884062 HC PT THERAPEUTIC ACT EA 15 MIN 08/31/2025 Tee Marina, PT Student GP 2 PT G-Codes Outcome Measure Options: (P) AM-PAC 6 Clicks Basic Mobility (PT) AM-PAC 6 Clicks Score (PT): (P) 11 AM-PAC 6 Clicks Score (OT): 12 PT Discharge Summary Anticipated Discharge Disposition (PT): (P) inpatient rehabilitation facility Tee Marina, PT Student 08/31/2025 1304 Occupational Therapy Notes (most recent note) Rdaha Smith, OT at 08/31/25 1307 Patient Name: Loc Thurman : 1940 Today's Date: 08/31/2025 Admit Date: 08/27/2025 Visit Dx: ICD-10-CM ICD-9-CM 1. Acute pancreatitis, unspecified complication status, unspecified pancreatitis type K85.90 577.0 2. Cholecystitis K81.9 575.10 3. 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 Respiratory insufficiency Shock Past Medical History: Diagnosis Date Cancer COPD (chronic obstructive pulmonary disease) Hyperlipidemia Hypertension Past Surgical History: Procedure Laterality Date APPENDECTOMY CHOLECYSTECTOMY WITH INTRAOPERATIVE CHOLANGIOGRAM N/A 08/28/2025 Procedure: CHOLECYSTECTOMY LAPAROSCOPIC INTRAOPERATIVE CHOLANGIOGRAM; Surgeon: Hermes Jaramillo MD; Location: [facility]; Service: General; Laterality: N/A; COLONOSCOPY HERNIA REPAIR General Information Row Name 08/31/25 1336 OT Time and Intention Document Type therapy note (daily note) -AN Mode of Treatment occupational therapy -AN Row Name 08/31/25 4933 General Information Patient Profile Reviewed yes -AN Existing Precautions/Restrictions fall;oxygen therapy device and L/min;other (see comments) abdominal incision; confusion; NG -AN Barriers to Rehab medically complex;previous functional deficit;cognitive status -AN Row Name 08/31/25 1338 Cognition Orientation Status (Cognition) oriented x 3 -AN Row Name 08/31/25 1338 Safety Issues/Impairments Affecting Functional Mobility Safety Issues Affecting Function (Mobility) safety precaution awareness;safety precautions follow-through/compliance;awareness of need for assistance -AN Impairments Affecting Function (Mobility) balance;cognition;coordination;endurance/activity tolerance;pain;postural/trunk control;shortness of breath;strength -AN Cognitive Impairments, Mobility Safety/Performance awareness, need for assistance;safety precautionfollow-through;sequencing abilities;insight into deficits/self-awareness;judgment;problem-solving/reasoning;safety precaution awareness -AN User Jung (r) = Recorded By, (t) = Taken By, (c) = Cosigned By Initials Name Provider Type Radha Lioa OT Occupational Therapist Mobility/ADL's Row Name 08/31/25 1339 Bed Mobility Comment, (Bed Mobility) UIC upon arrival -AN User Jung (r) = Recorded By, (t) = Taken By, (c) = Cosigned By Initials Name Provider Type Radha Liao OT Occupational Therapist Obj/Interventions Row Name 08/31/25 1340 Shoulder (Therapeutic Exercise) Shoulder (Therapeutic Exercise) AAROM (active assistive range of motion);AROM (active range of motion) -AN Shoulder AROM (Therapeutic Exercise) bilateral;scapular retraction;aBduction;aDduction;sitting;10 repetitions -AN Shoulder AAROM (Therapeutic Exercise) bilateral;flexion;extension;sitting;10 repetitions -AN Row Name 08/31/25 1340 Elbow/Forearm (Therapeutic Exercise) Elbow/Forearm (Therapeutic Exercise) AAROM (active assistive range of motion) -AN Elbow/Forearm AAROM (Therapeutic Exercise) bilateral;flexion;extension;sitting;10 repetitions -AN Row Name 08/31/25 1340 Motor Skills Therapeutic Exercise shoulder;elbow/forearm -AN Row Name 08/31/25 1340 Balance Balance Assessment sitting static balance;sitting dynamic balance -AN Static Sitting Balance contact guard -AN Dynamic Sitting Balance minimal assist -AN Position, Sitting Balance sitting in chair -AN Balance Interventions sitting;static;dynamic;minimal challenge;occupation based/functional task -AN User Jung (r) = Recorded By, (t) = Taken By, (c) = Cosigned By Initials Name Provider Type Radha Liao OT Occupational Therapist Goals/Plan No documentation. Clinical Impression Row Name 08/31/25 1341 Pain Assessment Pretreatment Pain Rating 0/10 - no pain -AN Posttreatment Pain Rating 0/10 - no pain -AN Row Name 08/31/25 1341 Plan of Care Review Plan of Care Reviewed With patient;son -AN Progress improving -AN Outcome Evaluation Pt continues to progress towards all OT goals, limited by weakness, confusion, and decreased activity tolerance. Pt tolerated seated UE ther-ex this session with AAROM/AROM. Cont POC. -AN Row Name 08/31/25 1341 Therapy Plan Review/Discharge Plan (OT) Anticipated Discharge Disposition (OT) inpatient rehabilitation facility -AN Row Name 08/31/25 1341 Positioning and Restraints Pre-Treatment Position sitting in chair/recliner -AN Post Treatment Position chair -AN In Chair notified nsg;reclined;call light within reach;encouraged to call for assist;exit alarm on;waffle cushion;with family/caregiver;on mechanical lift sling;legs elevated -AN User Jung (r) = Recorded By, (t) = Taken By, (c) = Cosigned By Initials Name Provider Type AN Radha Smith OT Occupational Therapist Outcome Measures Row Name 08/31/25 1348 How much help from another is currently needed... Putting on and taking off regular lower body clothing? 1 -AN Bathing (including washing, rinsing, and drying) 2 -AN Toileting (which includes using toilet bed currie or urinal) 1 -AN Putting on and taking off regular upper body clothing 2 -AN Taking care of personal grooming (such as brushing teeth) 3 -AN Eating meals 3 -AN AM-PAC 6 Clicks Score (OT) 12 -AN Row Name 08/31/25 1035 How much help from another person do you currently need... Turning from your back to your side while in flat bed without using bedrails? 2 -KG (r) SULAIMAN (t) KG (c) Moving from lying on back to sitting on the side of a flat bed without bedrails? 2 -KG (r) SULAIMAN (t) KG (c) Moving to and from a bed to a chair (including a wheelchair)? 2 -KG (r) SULAIMAN (t) KG (c) Standing up from a chair using your arms (e.g., wheelchair, bedside chair)? 2 - KG (r) SULAIMAN (t) KG (c) Climbing 3-5 steps with a railing? 1 -KG (r) SULAIMAN (t) KG (c) To walk in hospital room? 2 -KG (r) SULAIMAN (t) KG (c) AM-PAC 6 Clicks Score (PT) 11 -KG (r) SULAIMAN (t) Highest Level of Mobility Goal Move to Chair/Commode-4 -KG (r) SULAIMAN (t) Row Name 08/31/25 1348 08/31/25 1035 Functional Assessment Outcome Measure Options AM-PAC 6 Clicks Daily Activity (OT) -AN AM-PAC 6 Clicks Basic Mobility (PT)-KG (r) SULAIMAN (t) KG (c) User Jung (r) = Recorded By, (t) = Taken By, (c) = Cosigned By Initials Name Provider Type Flora Galvan, PT Physical Therapist Radha Liao, OT Occupational Therapist Tee Taylor, PT Student PT Student Occupational Therapy Education Title: PT OT PSYCH TECH Therapies (In Progress) Topic: Occupational Therapy (Done) Point: ADL training (Done) Learning Progress Summary Patient Acceptance, E, VU by at 08/31/2025 1348 Acceptance, E, NR by at 08/30/2025 1147 Point: Home exercise program (Done) Learning Progress Summary Patient Acceptance, E, VU by at 08/31/2025 1348 Point: Precautions (Done) Learning Progress Summary Patient Acceptance, E, VU by at 08/31/2025 1348 Acceptance, E, NR by at 08/30/2025 1147 Point: Body mechanics (Done) Learning Progress Summary Patient Acceptance, E, VU by at 08/31/2025 1348 Acceptance, E, NR by at 08/30/2025 1147 User Jung Initials Effective Dates Name Provider Type [facility] 08/02/22 - Aury Fitzgerald OT Occupational Therapist OT JUAQUIN 07/10/21 - Radha Smith OT Occupational Therapist OT OT Recommendation and Plan Recommended discharge disposition is based on the functional assessment performed by PT/OT/Speech therapy (as applicable) and may not reflect the medical necessity determined by your provider or services covered by an individual patient's insurance plan or patient resource. Plan of Care Review Plan of Care Reviewed With: patient, son Progress: improving Outcome Evaluation: Pt continues to progress towards all OT goals, limited by weakness, confusion, and decreased activity tolerance. Pt tolerated seated UE ther-ex this session with AAROM/AROM. Cont POC. Time Calculation: Time Calculation- OT Row Name 08/31/25 1349 Time Calculation- OT OT Start Time 1307 -AN OT Received On 08/31/25 -AN Timed Charges 04746 - OT Therapeutic Exercise Minutes 12 -AN Total Minutes Timed Charges Total Minutes 12 -AN Total Minutes 12 -AN User Jung (r) = Recorded By, (t) = Taken By, (c) = Cosigned By Initials Name Provider Type AN Radha Smith OT Occupational Therapist Therapy Charges for Today Code Description Service Date Service Provider Modifiers Qty [id number] HC OT THER PROC EA 15 MIN 08/31/2025 Radha Smith OT GO 1 Radha Smith OT 08/31/2025 1349 Speech Language Pathology Notes (most recent note) Andrea Dukes, [facility]-PSYCH TECH at 08/31/25 0954 Acute [facility] - Speech Language Pathology Swallow Re-Evaluation [facility] Fiberoptic Endoscopic Evaluation of Swallowing (FEES) Patient Name: Loc Thurman : 1940 Today's Date: 08/31/2025 Admit Date: 08/27/2025 Visit Dx: ICD-10-CM ICD-9-CM 1. Acute pancreatitis, unspecified complication status, unspecified pancreatitis type K85.90 577.0 2. Cholecystitis K81.9 575.10 3. 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 Respiratory insufficiency Shock Past Medical History: Diagnosis Date Cancer COPD (chronic obstructive pulmonary disease) Hyperlipidemia Hypertension Past Surgical History: Procedure Laterality Date APPENDECTOMY CHOLECYSTECTOMY WITH INTRAOPERATIVE CHOLANGIOGRAM N/A 08/28/2025 Procedure: CHOLECYSTECTOMY LAPAROSCOPIC INTRAOPERATIVE CHOLANGIOGRAM; Surgeon: Hermes Jaramillo MD; Location: [facility]; Service: General; Laterality: N/A; COLONOSCOPY HERNIA REPAIR PSYCH TECH Recommendation and Plan Recommended discharge disposition is based on the functional assessment performed by PT/OT/Speech therapy (as applicable) and may not reflect the medical necessity determined by your provider or services covered by an individual patient's insurance plan or patient resource. PSYCH TECH Swallowing Diagnosis: moderate, oral dysphagia, pharyngeal dysphagia (08/31/25814) PSYCH TECH Diet Recommendation: puree, nectar thick liquids, other (see comments) (PO diet at discretion of surgeon only) (08/31/25814) Recommended Precautions and Strategies: upright posture during/after eating, general aspiration precautions (08/31/25814) PSYCH TECH Rec. for Method of Medication Administration: meds whole, with thick liquids, meds via alternate route (08/31/25814) Monitor for Signs of Aspiration: yes, notify PSYCH TECH if any concerns (08/31/25814) Swallow Criteria for Skilled Therapeutic Interventions Met: demonstrates skilled criteria () Anticipated Discharge Disposition (PSYCH TECH): inpatient rehabilitation facility (08/31/25814) Rehab Potential/Prognosis, Swallowing: good, to achieve stated therapy goals (08/31/25814) Therapy Frequency (Swallow): 5 days per week (08/31/25814) Predicted Duration Therapy Intervention (Days): 2 weeks (08/31/25814) Oral Care Recommendations: Oral Care BID/PRN, Suction toothbrush (08/31/25814) Progress: improving SWALLOW EVALUATION (Last 72 Hours) PSYCH TECH Adult Swallow Evaluation Row Name 08/31/2581408/30/25 100 Rehab Evaluation Document Type re-evaluation -RS evaluation -AC (r) IG (t) AC (c) Subjective Information no complaints -RS no complaints -AC (r) IG (t) AC (c) Patient Observations alert;cooperative;agree to therapy -RS alert;cooperative - AC (r) IG (t) AC (c) Patient/Family/Caregiver Comments/Observations None present -RS Son arrived during eval -AC (r) IG (t) AC (c) Patient Effort good -RS good -AC (r) IG (t) AC (c) Symptoms Noted During/After Treatment none -RS none -AC (r) IG (t) AC (c) Oral Care teeth brushed - suction toothbrush -RS teeth brushed - suction toothbrush;tongue brushed-AC (r) IG (t) AC (c) General Information Patient Profile Reviewed yes -RS yes -AC (r) IG (t) AC (c) Pertinent History Of Current Problem See previous PSYCH TECH notes. Pt has been cleared for PO diet by surgeon -RS Pt adm w/ new left lung mass who was transferred from OSH 08/27/2025 for evaluation of possible pancreatitis and cholecystitis. CXR showed increased infiltrate or atelectasis at the right lungbase.Hx: PMH COPD, pancreatitis, hypertension, prostate cancer s/p XRT and hormonal therapy 2014, and hyperlipidemia. -AC (r) IG (t) AC (c) Current Method of Nutrition NPO;large-bore -RS NPO;large-bore RN reported started trophic feeding today -AC (r) IG (t) AC (c) Precautions/Limitations, Vision -- WFL;for purposes of eval -AC (r) IG (t) AC (c) Precautions/Limitations, Hearing -- WFL;for purposes of eval -AC (r) IG (t) AC (c) Prior Level of Function-Communication -- unknown -AC (r) IG (t) AC (c) Prior Level of Function-Swallowing -- no diet consistency restrictions -AC (r) IG (t) AC (c) Plans/Goals Discussed with -- patient;agreed upon -AC (r) IG (t) AC (c) Barriers to Rehab -- none identified -AC (r) IG (t) AC (c) Patient's Goals for Discharge -- patient did not state -AC (r) IG (t) AC (c) Pain Pretreatment Pain Rating 0/10 - no pain -RS -- Posttreatment Pain Rating 0/10 - no pain -RS -- Additional Documentation -- Pain Scale: FACES Pre/Post-Treatment (Group) -AC (r) IG (t) AC (c) Pain Scale: FACES Pre/Post-Treatment Pain: FACES Scale, Pretreatment -- 2-->hurts little bit -AC (r) IG (t) AC (c) Posttreatment Pain Rating -- 0-->no hurt -AC (r) IG (t) AC (c) Oral Motor Structure and Function Dentition Assessment upper dentures/partial in place;lower dentures/partial in place -RS edentulous-AC (r) IG (t) AC (c) Secretion Management WNL/WFL -RS dried secretions in oral cavity -AC (r) IG (t) AC (c) Mucosal Quality dry;sticky -RS dry;sticky -AC (r) IG (t) AC (c) Oral Musculature and Cranial Nerve Assessment Oral Motor General Assessment -- WFL -AC (r) IG (t) AC (c) General Eating/Swallowing Observations Respiratory Support Currently in Use nasal cannula -RS nasal cannula -AC (r) IG (t) AC (c) O2 Liters 3L -RS -- Eating/Swallowing Skills fed by staff/caregiver -RS self-fed;fed by PSYCH TECH -AC (r) IG (t) AC (c) Positioning During Eating upright 90 degree;upright in bed -RS upright 90 degree;upright in chair -AC (r) IG (t) AC (c) Utensils Used spoon;cup;straw -RS spoon;cup -AC (r) IG (t) AC (c) Consistencies Trialed soft to chew textures;mechanical ground textures;mixed consistency;pureed;thin liquids;nectar/syrup-thick liquids -RS pureed;ice chips;thin liquids;nectar/syrup-thick liquids -AC (r) IG (t) AC (c) Clinical Swallow Eval Oral Prep Phase -- WFL -AC (r) IG (t) AC (c) Oral Transit -- WFL -AC (r) IG (t) AC (c) Oral Residue -- WFL -AC (r) IG (t) AC (c) Pharyngeal Phase -- suspected pharyngeal impairment -AC (r) IG (t) AC (c) Esophageal Phase -- unremarkable -AC (r) IG (t) AC (c) Pharyngeal Phase Concerns Pharyngeal Phase Concerns -- multiple swallows;cough -AC (r) IG (t) AC (c) Multiple Swallows -- thin;nectar -AC (r) IG (t) AC (c) Cough -- nectar;other (see comments) Suspect possible delayed cough from thin liquid -AC (r) IG (t)AC (c) Pharyngeal Phase Concerns, Comment -- PO trials okay'd by RN and -AC (r) IG (t) AC (c) Fiberoptic Endoscopic Evaluation of Swallowing (FEES) Risks/Benefits Reviewed risks/benefits explained;patient;agreed to eval -RS -- Nasal Entry left: -RS -- Scope serial number/identification [id number] -RS -- Special Considerations large bore NGT in place, not yet appropriate to remove - RS -- Anatomy and Physiology Anatomic Considerations edema;erythema -RS -- Base of Tongue symmetrical -RS -- Epiglottis WFL -RS -- Laryngeal Function Breathing symmetrical -RS -- Laryngeal Function Phonation symmetrical -RS -- Laryngeal Function to Breath Hold can't sustain closure -RS -- Secretion Rating Scale (Steven et al. 1996) 2- secretions initially outside the vestibule but laterentered the vestibule -RS -- Secretion Description thick;white -RS -- Ice Chips elicited swallow -RS -- Spontaneous Swallow frequency reduced -RS -- Sensory sensed scope -RS -- FEES Interpretation Oral Phase reduced lingual control;prespill of liquids into pharynx;prolonged manipulation;with solids only -RS -- Initiation of Pharyngeal Swallow Initiation of Pharyngeal Swallow bolus in valleculae -RS -- Pharyngeal Phase impaired pharyngeal phase of swallowing -RS -- Aspiration During the Swallow thin liquids;secondary to delayed swallow initiation or mistiming;secondary to reduced laryngeal elevation;secondary to reduced vestibular closure -RS -- Response to Aspiration No -RS -- No spontaneous response to aspiration with effective subglottic clearance with cue (see comments) -RS -- Rosenbek's Scale thin:;8-->Level 8;nectar:;1-->Level 1 -RS -- Residue diffuse within pharynx;secondary to reduced base of tongue retraction;secondary to reduced posterior pharyngeal wall stripping;secondary to reduced laryngeal elevation;secondary to reduced hyolaryngeal excursion;other (see comments) mild but diffuse -RS -- Response to Residue cleared residue;with spontaneous subsequent swallow;with cued swallow -RS -- Attempted Compensatory Maneuvers bolus size;bolus presentation style -RS -- Response to Attempted Compensatory Maneuvers did not prevent aspiration -RS -- FEES Summary PO diet to be ordered at discretion of surgeon. May want to initiate clear (nectar) liquids and advance. Unsure why oral phase so prolonged given lack of isolated lingual/labial weakness(with the exception of tongue back). Given prolonged oral phase, recommend puree solids which can be upgraded at bedside. Would anticipate quick pharyngeal recovery. -RS -- Swallowing Quality of Life Assessment Education and counseling provided Signs of aspiration;Silent aspiration;Risks of aspiration -RS -- PSYCH TECH Evaluation Clinical Impression PSYCH TECH Swallowing Diagnosis moderate;oral dysphagia;pharyngeal dysphagia -RS suspected pharyngeal dysphagia -AC (r) IG (t) AC (c) Functional Impact risk of aspiration/pneumonia -RS risk of aspiration/pneumonia;risk of malnutrition;risk of dehydration -AC (r) IG (t) AC (c) Rehab Potential/Prognosis, Swallowing good, to achieve stated therapy goals -RS good, to achieve stated therapy goals -AC (r) IG (t) AC (c) Swallow Criteria for Skilled Therapeutic Interventions Met demonstrates skilled criteria -RS demonstrates skilled criteria -AC (r) IG (t) AC (c) Recommendations Therapy Frequency (Swallow) 5 days per week -RS -- Predicted Duration Therapy Intervention (Days) 2 weeks -RS 2 weeks -AC (r) IG (t) AC (c) PSYCH TECH Diet Recommendation puree;nectar thick liquids;other (see comments) PO diet at discretion of surgeon only -RS NPO -AC (r) IG (t) AC (c) Recommended Diagnostics -- FEES;other (see comments) When medically appropriate/ cleared by surgery. -AC (r) IG (t) AC (c) Recommended Precautions and Strategies upright posture during/after eating;general aspiration precautions -RS -- Oral Care Recommendations Oral Care BID/PRN;Suction toothbrush -RS Oral Care BID/PRN;Suction toothbrush -AC (r) IG (t) AC (c) PSYCH TECH Rec. for Method of Medication Administration meds whole;with thick liquids;meds via alternate route -RS meds via alternate route -AC (r) IG (t) AC (c) Monitor for Signs of Aspiration yes;notify PSYCH TECH if any concerns -RS yes;notify PSYCH TECH if any concerns -AC (r) IG (t) AC (c) Anticipated Discharge Disposition (PSYCH TECH) inpatient rehabilitation facility -RS inpatient rehabilitation facility -AC (r) IG (t) AC (c) User Jung (r) = Recorded By, (t) = Taken By, (c) = Cosigned By Initials Name Effective Dates AC Lea Echols, MS [facility]-PSYCH TECH 11/22/22 - RS Darian Dukesh, MS [facility]-PSYCH TECH 07/03/23 - Alma Arshad, Speech Therapy Student 06/08/25 - EDUCATION The patient has been educated in the following areas: Dysphagia (Swallowing Impairment) Modified Diet Instruction. PSYCH TECH GOALS Row Name 08/31/25 0815 (LTG) Patient will demonstrate functional swallow for Diet Texture (Demonstrate functional swallow) regular textures -RS Liquid viscosity (Demonstrate functional swallow) thin liquids -RS Reynolds (Demonstrate functional swallow) independently (over 90% accuracy) -RS Time Frame (Demonstrate functional swallow) 2 weeks -RS Progress/Outcomes (Demonstrate functional swallow) new goal -RS (STG) Patient will tolerate trials of Consistencies Trialed (Tolerate trials) pureed textures;nectar/ mildly thick liquids -RS Desired Outcome (Tolerate trials) without signs/symptoms of aspiration;without signs of distress;with adequate oral prep/transit/clearance -RS Reynolds (Tolerate trials) with minimal cues (75-90% accuracy) -RS Time Frame (Tolerate trials) 1 week -RS Progress/Outcomes (Tolerate trials) new goal -RS (STG) Patient will tolerate therapeutic trials of Consistencies Trialed (Tolerate therapeutic trials) soft to chew (chopped) textures;nectar/ mildly thick liquids -RS Desired Outcome (Tolerate therapeutic trials) without signs/symptoms of aspiration;without signs ofdistress;with adequate oral prep/transit/clearance -RS Reynolds (Tolerate therapeutic trials) with minimal cues (75-90% accuracy) -RS Time Frame (Tolerate therapeutic trials) 1 week -RS Progress/Outcomes (Tolerate therapeutic trials) new goal -RS (STG) Lingual Strengthening Goal 1 (PSYCH TECH) Activity (Lingual Strengthening Goal 1, PSYCH TECH) increase tongue back strength -RS Increase Tongue Back Strength lingual resistance exercises -RS Reynolds/Accuracy (Lingual Strengthening Goal 1, PSYCH TECH) with minimal cues (75- 90% accuracy) -RS Time Frame (Lingual Strengthening Goal 1, PSYCH TECH) 1 week -RS Progress/Outcomes (Lingual Strengthening Goal 1, PSYCH TECH) new goal -RS (STG) Pharyngeal Strengthening Exercise Goal 1 (PSYCH TECH) Activity (Pharyngeal Strengthening Goal 1, PSYCH TECH) increase timing;increase superior movement of the hyolaryngeal complex;increase anterior movement of the hyolaryngeal complex;increase closure at entrance to airway/closure of airway at glottis;increase squeeze/positive pressure generation;increase tongue base retraction -RS Increase Timing prepping - 3 second prep or suck swallow or 3-step swallow -RS Increase Superior Movement of the Hyolaryngeal Complex Patience -RS Increase Anterior Movement of the Hyolaryngeal Complex chin tuck against resistance (CTAR) -RS Increase Closure at Entrance to Airway/Closure of Airway at Glottis supraglottic swallow -RS Increase Squeeze/Positive Pressure Generation hard effortful swallow -RS Increase Tongue Base Retraction mike -RS Reynolds/Accuracy (Pharyngeal Strengthening Goal 1, PSYCH TECH) with minimal cues (75-90% accuracy) -RS Time Frame (Pharyngeal Strengthening Goal 1, PSYCH TECH) 1 week -RS Progress/Outcomes (Pharyngeal Strengthening Goal 1, PSYCH TECH) new goal -RS User Jung (r) = Recorded By, (t) = Taken By, (c) = Cosigned By Initials Name Provider Type RS Andrea Dukes MS CCC-PSYCH TECH Speech and Language Pathologist Time Calculation: Time Calculation- PSYCH TECH Row Name 08/31/25 0953 Time Calculation- PSYCH TECH PSYCH TECH Start Time 0815 -RS PSYCH TECH Received On 08/31/25 -RS Untimed Charges 42012-[facility] Fiberoptic Endo Eval Swallow Minutes 105 -RS Total Minutes Untimed Charges Total Minutes 105 -RS Total Minutes 105 -RS User Jung (r) = Recorded By, (t) = Taken By, (c) = Cosigned By Initials Name Provider Type RS Andrea Dukes MS CCC-PSYCH TECH Speech and Language Pathologist Therapy Charges for Today Code Description Service Date Service Provider Modifiers Qty [id number] ST FIBEROPTIC ENDO EVAL [facility] 7 08/31/2025 Andrea Dukes MS CCC- PSYCH TECH GN 1 [place] MS CAROLIN Dukes-ISAIAH 08/31/2025 0954 * Félix Azul RN - 08/31/2025 8:27 AM EST Images from the original note were not included. Loc Thurman (84 y.o. Male) Cayetano Azul RNrespiratory care faculty [phone] Date of 1940 Social Security Number [id number] [place] [address] Gnosticism Sabianism Marital Status Admission Date 08/27/2025 Admission Type Urgent Admitting Provider Linda Rubin MD Attending Provider Cristian Mckee DO Department, Room/Bed [facility], S254/1 Discharge Date Discharge Disposition Discharge Destination Attending Provider: Cristian Mckee DO Allergies: No Known Allergies Isolation: None Infection: None Code Status: CPR Ht: 172.7 cm (67.99 ) Wt: 94.2 kg (207 lb 10.8 oz) Admission Cmt: None Principal Problem: Acute pancreatitis [K85.90] Active Insurance as of 08/27/2025 Primary Coverage Payor Plan Insurance Group Employer/Plan Group MEDICARE MEDICARE A & B Payor Plan Address Payor Plan Phone Number Payor Plan Fax Number Effective Dates [address] 11/20/2003 - None Entered [facility] [id number] Subscriber Name Subscriber Date Member ID LOC THURMAN 1940 [id number] Secondary Coverage Payor Plan Insurance Group Employer/Plan Group [employer] Payor Plan Address Payor Plan Phone Number Payor Plan Fax Number Effective Dates [address] [phone] 10/20/2015 - None Entered [facility] [id number] Subscriber Name Subscriber Date Member ID LOC THURMAN 1940 [id number] Emergency 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 male is followed for:No chief complaint on file. Pancreatitis Vasovagal syncope HTN (hypertension) Mixed hyperlipidemia COPD (chronic obstructive pulmonary disease) Former tobacco use History of prostate cancer BPH with obstruction/lower urinary tract symptoms As an Emergency Veterinarian, we provide an integrated approach to the ICU patient and family, medical management of comorbid conditions, including but not limited to electrolytes, glycemic control, organ dysfunction, lead interdisciplinary rounds and coordinate the care with all other services, including those from other specialists. HPI: Loc is a 84 y.o. male with PMH COPD, history of pancreatitis, hypertension, prostate cancer status post XRT and hormonal therapy 2014, hyperlipidemia, new left lung mass who was [facility] on 08/27/2025 because of evaluation of possible pancreatitis and cholecystitis. Patient underwent bronchoscopy yesterday for lung nodules/mass. Did have scant hemoptysis mixed in with saliva yesterday evening postprocedure. Has not had any olga hemoptysis orno further episodes. Today he woke up with upper abdominal pain after eating breakfast as well as nausea and vomiting. Went to [facility] and during transport her head syncopal episode with blood pressure dropping. Blood pressure improved with IV fluids. Labs significant for lipase 11,000. CT chest abdomen pelvis showed distended gallbladder with questionable gallbladder wall thickening and. Cholecystic fluid. He was then transferred to our facility and admitted to the hospitalist service. Dr. Jaramillo with general surgery saw patient and ordered CT abdomen pelvis. Unfortunately patient developed hypotension requiring vasopressor and was subsequently transferred to the ICU. Patient seen at bedside. Alert and oriented x 3. Son at bedside. Complains of some abdominal pain 4out of 10 that is improved. Has been having nausea and vomiting. No vomiting or recent bleed. No chest pain or shortness of breath. No hemoptysis. PMH: He has no past medical history on file. PSxH: He has no past surgical history on file. Medications: No current facility-administered medications on file prior to encounter. Current Outpatient Medications on File Prior to Encounter Medication Sig diphenhydrAMINE (BENADRYL) 25 mg capsule Take 1 capsule by mouth At Night As Needed for Sleep. ferrous gluconate (FERGON) 324 MG tablet Take 1 tablet by mouth Daily With Breakfast. Glycopyrrolate-Formoterol (Bevespi Aerosphere) 9-4.8 MCG/ACT aerosol Inhale. lisinopril (PRINIVIL,ZESTRIL) 10 MG tablet Take 1.5 tablets by mouth 2 (Two) Times a Day. montelukast (SINGULAIR) 10 MG tablet Take 1 tablet by mouth Every Night. omeprazole (priLOSEC) 20 MG capsule Take 1 capsule by mouth Daily. vitamin B-12 (CYANOCOBALAMIN) 1000 MCG tablet Take 1 tablet by mouth Daily. vitamin C (ASCORBIC ACID) 250 MG tablet Take 1 tablet by mouth Daily. albuterol sulfate HFA 108 (90 Base) MCG/ACT inhaler Inhale 2 puffs Every 4 (Four) Hours As Needed for Wheezing. cetirizine (zyrTEC) 5 MG tablet Take 1 tablet by mouth Daily. (Patient not taking: Reported on 08/27/2025) Allergies: He has no known allergies. FH: His family history is not on file. SH: He reports that he quit smoking about 35 years ago. His smoking use included cigarettes. He hasnever used smokeless tobacco. He reports that he does not drink alcohol and does not use drugs. The patient's relevant past medical, surgical and social history were reviewed and updated in [facility] as appropriate. Review of Systems As described in the HPI. OBJECTIVE Vitals: Temp: 97.4 ??F (36.3 ??C) (08/27/252320) Temp Min: 97.4 ??F (36.3 ??C) Max: 98.7 ??F (37.1 ??C) Temp core: BP: (!) 89/48 (08/27/252323) BP Min: 89/48 Max: 101/56 MAP (non-invasive) Noninvasive MAP (mmHg): 73 (08/27/252323) Noninvasive MAP (mmHg) Av.4 Min:68 Max: 76 Pulse: 102 (08/27/252323) Pulse Min: 95 Max: 105 Resp: 18 (08/27/252320) Resp Min: 18 Max: 18 SpO2: 95 % (08/27/252323) SpO2 Min: 85 % Max: 95 % Device: nasal cannula (08/27/252321) Flow Rate: No data recorded 08/27/252099 Weight: 93.4 kg (206 lb) Intake/Ouptut 24 hrs (7:00AM - 6:59 AM) Intake & Output (last 2 days) 08/26 Urine (mL/kg/hr) 100 Total Output 100 Net -100 Medications (drips): lactated ringers, Last Rate: 100 mL/hr (08/27/252329) Physical Examination Telemetry: Rhythm: normal sinus rhythm, sinus tachycardia (08/27/252317) Constitutional: No acute distress. Cardiovascular: RRR. Respiratory: Normal breath sounds Decreased bases No resp distress Abdominal: Soft with generalized tenderness. Distended. Not rigid, no guarding. Extremities: No Edema Neurological: Alert, Oriented, Cooperative. Best Eye Response: 4-->(E4) spontaneous (08/27/252058) Best Motor Response: 6-->(M6) obeys commands (08/27/252058) Best Verbal Response: 5-->(V5) oriented (08/27/252058) [place] Coma Scale Score: 15 (08/27/252058) Lines, Drains & Airways Active LDAs Name Placement date Placement time Site Days Peripheral IV 20 G Anterior;Proximal;Right Forearm -- -- Forearm -- Peripheral IV 08/27/252330 18 G Anterior;Right;Upper Arm 08/27/252330 Arm less than 1 Results Reviewed: Laboratory Microbiology Radiology Pathology Hematology: Results from last 7 days Lab Units 08/27/251942 WBC 10*3/mm3 15.69* HEMOGLOBIN g/dL 11.1* MCV fL 93.4 PLATELETS 10*3/mm3 171 Results from last 7 days Lab Units 08/27/251942 NEUTROS ABS 10*3/mm3 14.59* LYMPHS ABS 10*3/mm3 0.43* EOS ABS 10*3/mm3 0.00 Chemistry: Estimated Creatinine Clearance: 39.5 mL/min (A) (by C-G formula based on SCr of 1.49 mg/dL (H)). Results from last 7 days Lab Units 08/27/251942 SODIUM mmol/L 143 POTASSIUM mmol/L 3.5 CHLORIDE mmol/L 110* CO2 mmol/L 15.6* BUN mg/dL 20.6 CREATININE mg/dL 1.49* GLUCOSE mg/dL 110* Results from last 7 days Lab Units 08/27/251942 CALCIUM mg/dL 8.1* Hepatic Panel: Results from last 7 days Lab Units 08/27/251942 ALBUMIN g/dL 3.4* TOTAL PROTEIN g/dL 5.4* BILIRUBIN mg/dL 1.0 AST (SGOT) U/L 456* ALT (SGPT) U/L 275* ALK PHOS U/L 106 Coagulation Labs: Cardiac Labs: Results from last 7 days Lab Units 08/27/251942 HSTROP T ng/L 39* Biomarkers: Results from last 7 days Lab Units 08/27/251942 LACTATE mmol/L 7.2* PROCALCITONIN ng/mL 68.30* FERRITIN ng/mL 160.00 U/A COVID-19 No results found for: COVID19 Arterial Blood Gases: Results from last 7 days Lab Units 08/27/25 2248 PH, ARTERIAL pH units 7.278* PCO2, ARTERIAL mm Hg 32.9* PO2 ART mm Hg 67.0* FIO2 % 21 Images: CT Abdomen Pelvis Without Contrast Result Date: 08/27/2025 Impression: 1.Findings consistent with acute cholecystitis with significant dilatation of the gallbladder with wall thickening and significant stranding and free fluid present. No definite gallstone identified. There is dilatation of the common bile duct extending to the ampulla with stranding seensurrounding the common bile duct. 2.Mass present within the left lower lobe near the base measuringup to 3.4 cm with surrounding smaller nodules. Findings are suspicious for malignancy. No previous imaging available for comparison. 3.Ancillary findings as described above. Electronically Signed: Nena Encarnacion MD 08/27/2025 10:25 PM EST Workstation ID: [id number] Echo: Results: Reviewed. I reviewed the patient's new laboratory and imaging results. I independently reviewed the patient's new images. Medications: Reviewed. Assessment A/P Hospital: LOS: 0 days ICU: 22m Active Hospital Problems Diagnosis POA Pancreatitis [K85.90] Yes Vasovagal syncope [R55] Unknown HTN (hypertension) [I10] Unknown Mixed hyperlipidemia [E78.2] Unknown COPD (chronic obstructive pulmonary disease) [J44.9] Unknown Former tobacco use [Z87.891] Not Applicable History of prostate cancer [Z85.46] Not Applicable BPH with obstruction/lower urinary tract symptoms [N40.1, N13.8] Unknown Loc is a 84 y.o. male admitted on 08/27/2025 with Pancreatitis [K85.90] Pancreatitis, acute [K85.90] Assessment/Management/Treatment Plan: Acute cholecystitis Septic shock Lactic acidosis of clinical significance Multiple lung nodules Left lower lobe 2.7 x 3.4 cm mass PMH: COPD, HTN, HLD, high-grade prostate cancer s/p initiation of external beam radiation and hormonal therapy (2014), and tobacco use Pulmonary [address] abdomen pelvis did show mass left lower lobe 2.7 x 3.4 cm and pleural-based nodule adjacent 1.3 cm, smaller nodules present. Patient did have bronchoscopy yesterday at outside hospital. Do not have results or procedure notes. Cardiovascular Initial lactate 7.2 repeat 7.6. Received IV fluids at outside hospital and additional 1 L normal saline on the floor. Will give additional 1 L LR. Continue LR at 150. Levophed for MAP goal greater than 65 and SBP >100. Continue to trend lactic acid No echo on file. No known history of heart failure. Troponin 39, repeat 34. EKG reviewed, normal sinus, no ischemic changes. No chest pain. Neuro No acute issues GI/Hepatology CT abdomen pelvis reviewed with general surgery. Acute cholecystitis, no evidence of pancreatitis on CT scan despite lipase 576, no free air or fluid and no bowel ischemia. Plan for CCY in a.m. pending patient's status. May need cholecystostomy tube if unable to have surgery LFTs 275/456, normal alk phos and T. bili. Acute hepatitis panel negative. No history of liver disease. CT with enlarged liver but no focal lesions or ascites. Repeat CMP in a.m. Renal Creatinine 1.49. Potassium 3.5, replete. Mag added on. Bicarb 15.ABG 7.2 on room air. Given2 A of bicarb. Will repeat BMP in 4 hours. Replete calcium. ID/Antibiotics Zosyn. Order blood cultures. Hematology Hemoglobin 11.1, platelets within normal limits. SCDs for DVT prophylaxis. Hold chemical given OR in AM. Endocrine Accu-Chek q6hr. No results found for: HGBA1C Results from last 7 days Lab Units 08/27/25 2312 GLUCOSE mg/dL 97 Diet: NPO Diet NPO Type: Sips with Meds No active supplement orders Advance Directives: Code Status and Medical Interventions: CPR (Attempt to Resuscitate); Full Support Ordered at: 08/27/252004 Code Status (Patient has no pulse and is not breathing): CPR (Attempt to Resuscitate) Medical Interventions (Patient has pulse or is breathing): Full Support Level Of Support Discussed With: Patient VTE Prophylaxis: Mechanical VTE prophylaxis orders are present. Disposition: ICU Plan of care and goals reviewed during interdisciplinary rounds. I discussed the patient's findings and my recommendations with patient RN hospitalist alfonso general surgeon Time: 40 minutes of critical care provided. This time excludes other billable procedures. Time doesinclude preparation of documents, medical consultations, review of old records, and direct bedside care. Patient is at high risk for life-threatening deterioration due to Sepsis. He has a high risk of imminent or life-threatening deterioration, which requires the highest level of physician preparedness to intervene urgently. I devoted my full attention to the direct care of this patient for the amount of time indicated above. Time spent with family or surrogate(s) is included only if the patient was incapable of providing the necessary information or participating in medical decision making. Linda Rubin MD Pulmonary Critical Care Medicine 005 Librado Bangura MD at 08/27/25 191 [facility] HISTORY AND PHYSICAL Patient Name: Loc Thurman : 1940 Primary Care Physician: Provider, No Known Date of admission: 08/27/2025 Subjective Subjective Chief Complaint: Abdominal pain with nausea and vomiting HPI: Loc Thurman is a 84 y.o. 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 via transfer from [facility] for evaluation of pancreatitis and distended gallbladder. History of Present Illness Reason for Admit: Abdominal pain with nausea vomiting The patient presents to [facility] via transfer from [facility] for evaluation of abdominal pain with nausea and vomiting. He reports experiencing abdominal pain and chest discomfort, which began this morning after consuming a bowl of cereal for breakfast. The pain, described as a constant ache across his lower chest andupper abdomen, initially peaked at a severity of 10/10. [facility], morphine was administered, but it was ineffective and caused an adverse reaction. Patient is resting comfortably in bed, rating his current pain level is approximately 4/10. He also reports persistent nausea and multiple episodes of vomiting today. He has not experienced any diarrhea. His last fluid intake was coffee with breakfast. He was able to urinate and have a bowel movement this morning, but subsequent attempts toobtain a urine sample were unsuccessful. He experienced an episode of syncope during transportation due to a significant drop in blood pressure, necessitating ambulance transport. His blood pressure was recorded as 130/80 at the hospital, but it decreased to 83 systolic prior to transfer, requiring fluid administration. He is currently onlisinopril 30 mg for blood pressure management. He underwent a bronchoscopy yesterday due to the presence of lung nodules, a procedure he toleratedwell without complications. He felt well upon discharge. He has been under observation for two lungnodules in his lower lungs for several years, and a nodule in his upper left lung was discovered about a year ago. A recent biopsy of the upper left lung nodule revealed slight growth. He has not taken baby aspirin for a few days and is not on any anticoagulant therapy. He noticed a small amount ofbright red blood when coughing last night and this morning. He had an abnormal stress test a couple of weeks ago and sees Dr. Brooks for cardiology in [place]. Review of Systems Constitutional: Positive for activity change. Negative for chills, fatigue and fever. HENT: Negative. Eyes: Negative. Respiratory: Positive for cough and shortness of breath. Negative for chest tightness. Cardiovascular: Positive for chest pain. Negative for leg swelling. Gastrointestinal: Positive for abdominal pain, nausea and vomiting. Negative for abdominal distention and diarrhea. Endocrine: Negative. Genitourinary: Negative for decreased urine volume. Musculoskeletal: Negative. Skin: Negative. Allergic/Immunologic: Negative. Neurological: Positive for dizziness, syncope and light-headedness. Negative for weakness and headaches. Hematological: Negative. Psychiatric/Behavioral: Negative. Personal History No past medical history on file. No past surgical history on file. Family History: family history is not on file. Social History: reports that he does not drink alcohol. Social History Social History Narrative Not on file Medications: Glycopyrrolate-Formoterol, albuterol sulfate HFA, cetirizine, lisinopril, montelukast, and omeprazole No Known Allergies Objective Objective Vital Signs: Temp: [98.1 ??F (36.7 ??C)-98.7 ??F (37.1 ??C)] 98.7 ??F (37.1 ??C) Heart Rate: [95-99] 95 Resp: [18] 18 BP: (99-101)/(54-56) 101/56 Physical Exam HENT: Head: Normocephalic and atraumatic. Eyes: Extraocular Movements: Extraocular movements intact. Pupils: Pupils are equal, round, and reactive to light. Cardiovascular: Rate and Rhythm: Normal rate and regular rhythm. Pulses: Normal pulses. Heart sounds: Normal heart sounds. Pulmonary: Effort: Pulmonary effort is normal. No respiratory distress. Breath sounds: Normal breath sounds. No wheezing. Abdominal: General: Bowel sounds are normal. There is distension. Palpations: Abdomen is soft. Tenderness: There is abdominal tenderness. Musculoskeletal: Right lower leg: No edema. Left lower leg: No edema. Skin: General: Skin is warm and dry. Neurological: General: No focal deficit present. Mental Status: He is alert and oriented to person, place, and time. Psychiatric: Mood and Affect: Mood normal. Behavior: Behavior normal. Physical Exam Abdominal: Tenderness centralized around the belly button. Result Review: I have personally reviewed the results from the time of this admission to 08/27/2025 21:11 EST and agree with these findings: [x] Laboratory list / accordion [] Microbiology [x] Radiology [x] EKG/Telemetry [] Cardiology/Vascular [] Pathology [] Old records [] Other: Results Imaging - CT scan: Distended gallbladder. LAB RESULTS: Lab 08/27/251942 WBC 15.69* HEMOGLOBIN 11.1* HEMATOCRIT 34.2* PLATELETS 171 NEUTROS ABS 14.59* IMMATURE GRANS (ABS) 0.15* LYMPHS ABS 0.43* MONOS ABS 0.49 EOS ABS 0.00 MCV 93.4 PROCALCITONIN 68.30* LACTATE 7.2* Lab 08/27/251942 SODIUM 143 POTASSIUM 3.5 CHLORIDE 110* CO2 15.6* ANION GAP 17.4* BUN 20.6 CREATININE 1.49* EGFR 45.4* GLUCOSE 110* CALCIUM 8.1* Lab 08/27/251942 TOTAL PROTEIN 5.4* ALBUMIN 3.4* GLOBULIN 2.0 ALT (SGPT) 275* AST (SGOT) 456* BILIRUBIN 1.0 ALK PHOS 106 LIPASE 576* Lab 08/27/25 1943 HSTROP T 39* Brief Urine Lab Results None Microbiology Results (last 10 days) No results found for the last 240 hours. No radiology results from the last 24 hrs Assessment & Plan Assessment & Plan Pancreatitis Vasovagal syncope HTN (hypertension) Mixed hyperlipidemia COPD (chronic obstructive pulmonary disease) Former tobacco use History of prostate cancer BPH with obstruction/lower urinary tract symptoms Loc Thurman is a 84 y.o. 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 via transfer from [facility] for evaluation of pancreatitis and distended gallbladder. Patient/family describe syncopal episode in ambulance in route from [facility] this afternoon subjective SBP in the 80s. Current SBP 101, 1 L NS bolus now, followed by maintenance fluids. Repeat labs. Consult general surgery in a.m. pain control and antiemetics as needed. Assessment & Plan Code Status: Full code Pancreatitis - CT of abdomen revealed distended gallbladder with wall thickening and pericholecystic fluid. Bileduct 15 mm. Recommend further evaluation for gallbladder pathology. Pancreatic atrophy. - At [facility] normal LFTs, Lipase greater than 11,000, WBC 22,000, and lactate 4 - Received Zosyn at [facility], continue - Repeat labs - Pain control - Antiemetics as needed - General Surgery consult - CBC and CMP in a.m. - N.p.o. Elevated troponin Probably secondary to nausea/vomiting? - Repeat troponin - Stat EKG - Telemetry Hypotension History of HTN - Family described syncopal episode and ambulance - 1 L NS bolus now - Maintenance fluids - Hold lisinopril Elevated creatinine versus CARMITA - Creatinine 1.49 - Baseline creatinine unknown - Maintenance fluids - Avoid nephrotoxic agent COPD - Currently on room air - Encourage pulmonary toilet - Titrate oxygen as needed - DuoNebs BPH History of high-grade prostate cancer - Currently on doxazosin, this could be contributing to hypotension. Hold for now Hemoptysis Lung nodules - S/p bronch 08/26, awaiting biopsy result - Coughing up blood-tinged sputum, scant - Advised to monitor for any changes or increase in hemoptysis and report immediately DVT prophylaxis: Mechanical CODE STATUS: Full code Code Status (Patient has no pulse and is not breathing): CPR (Attempt to Resuscitate) Medical Interventions (Patient has pulse or is breathing): Full Support Level Of Support Discussed With: Patient Expected Discharge Expected discharge date/ time has not been documented. This note has been completed as part of a split-shared workflow. 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 Attending Admission Attestation I have performed an independent [id number] diagnostic evaluation including performing an independent physical examination. I approve of the documented plan of care above that was reviewed and developed with the advanced consulting practice director (APC) and take responsibility for that plan along with itsassociated risks. I have updated the HPI as appropriate. Brief HPI Loc Thurman is a 84 y.o. 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 via transfer from [facility] for evaluation of pancreatitis and distended gallbladder. Patient reports acute onset abdominal pain, located around the epigastrium, nausea, vomiting. Denies fevers. Endorses decreased UOP. Attending Physical Exam: Temp: [98.1 ??F (36.7 ??C)-98.7 ??F (37.1 ??C)] 98.7 ??F (37.1 ??C) Heart Rate: [95-99] 95 Resp: [18] 18 BP: (99-101)/(54-56) 101/56 Constitutional: No acute distress, awake, alert HENT: NCAT, mucous membranes dry Respiratory: Clear to auscultation bilaterally, respiratory effort normal Cardiovascular: RRR, no murmurs, rubs, or gallops Gastrointestinal: Positive bowel sounds, distended, epigastric, generalized tenderness Musculoskeletal: No bilateral ankle edema Psychiatric: Appropriate affect, cooperative Neurologic: Oriented x 3, Skin: No rashes Result Review: I have personally reviewed the results from the time of this admission to 08/27/2025 22:26 EST and agree with these findings: [x] Laboratory list / accordion [] Microbiology [x] Radiology [] EKG/Telemetry [] Cardiology/Vascular [] Pathology [] Old records [] Other: Most notable findings include: summarized Assessment and Plan: Acute pancreatitis AG Metabolic acidosis Lactic acidosis Transaminitis CARMITA( unknown cr baseline) - continue IV fluids - GS consulted - monitor UOP - obtain stat ABG to assess severity of acidosis - transfer to ICU : Dr. Rubin accepted See assessment and plan documented by APC above and updated/edited by me as appropriate. Librado Bangura MD 08/27/25 Contains text generated by [facility] [id number] Vital Signs (last day) Date/Time Temp Temp src Pulse Resp BP Patient Position SpO2 08/31/25 0800 -- -- 85 20 174/84 Lying 97 08/31/25 0600 98 (36.7) Oral 83 20 151/71 Lying 96 08/31/25 0500 -- -- 82 18 155/71 Lying 97 08/31/25 0400 -- -- 84 -- 138/65 -- 97 08/31/25 0300 -- -- 84 20 147/65 Lying 97 08/31/25 0243 -- -- 83 -- 171/84 -- -- 08/31/25 0200 -- -- 80 -- 171/84 -- 98 08/31/25 0100 -- -- 82 -- 170/83 -- 98 08/31/25 0000 98.6 (37) Oral 79 20 171/84 Lying 98 08/30/25 2300 -- -- 83 16 161/80 Lying 98 08/30/25 2200 -- -- 84 16 155/75 Sitting 98 08/30/25 2109 -- -- 82 -- 172/84 -- -- 08/30/252099 -- -- 81 20 172/84 Sitting 94 08/30/252022 -- -- 82 -- -- -- 98 08/30/252016 -- -- 85 20 -- -- 92 08/30/251999 98.4 (36.9) Oral 84 18 175/84 Lying 95 08/30/25 1800 -- -- 80 16 170/81 -- 95 08/30/25 1700 -- -- 78 -- 178/86 -- 95 08/30/25 1600 98 (36.7) Oral 81 20 177/86 Sitting 98 08/30/25 1500 -- -- 81 -- 174/81 -- 97 08/30/25 1430 -- -- 81 -- -- -- 97 08/30/25 1400 -- -- 88 20 175/84 Sitting 97 08/30/25 1300 -- -- 78 -- 167/77 -- 99 08/30/25 1230 -- -- 78 -- -- -- 99 08/30/25 1200 97.6 (36.4) Oral 79 20 162/77 -- 98 08/30/25 1130 -- -- 77 -- -- -- 97 08/30/25 1100 -- -- 79 -- 138/67 -- 95 08/30/25 1030 -- -- 80 -- -- -- 99 08/30/25 1000 -- -- 80 20 151/75 -- 98 08/30/25 0900 -- -- 81 -- 163/86 -- 97 08/30/25 0800 98.3 (36.8) Axillary 79 20 150/66 Lying 98 08/30/25 0745 -- -- 78 -- -- -- 97 08/30/25 0600 -- -- 81 -- 132/61 -- 97 08/30/25 0500 -- -- 82 -- 138/62 -- 97 08/30/25 0400 -- -- 81 16 129/58 Lying 97 08/30/25 0300 -- -- 78 -- 126/59 -- 96 08/30/25 0200 -- -- 79 16 108/51 Lying 95 08/30/25 0100 -- -- 80 -- 107/47 -- 96 08/30/25 0000 97.8 (36.6) Axillary 81 16 122/54 Lying 98 Current Facility-Administered Medications Medication Dose Route Frequency Provider Last Rate Last Admin acetaminophen (TYLENOL) tablet 650 mg 650 mg Nasogastric Q4H PRN Marcos Cyr, DucD Or acetaminophen (TYLENOL) 160 MG/5ML oral solution 650 mg 650 mg Nasogastric Q4H PRN Marcos Cyr PharmD Or acetaminophen (TYLENOL) suppository 650 mg 650 mg Rectal Q4H PRN Marcos Cyr PharmD arformoterol (BROVANA) nebulizer solution 15 mcg 15 mcg Nebulization BID - RT Hermes Jaramillo MD 15 mcg at 08/31/25 0800 sennosides-docusate (PERICOLACE) 8.6-50 MG per tablet 2 tablet 2 tablet Nasogastric BID PRN Marcos Cyr PharmD And polyethylene glycol (MIRALAX) packet 17 g 17 g Nasogastric Daily PRN Marcos Cyr PharmD And bisacodyl (DULCOLAX) suppository 10 mg 10 mg Rectal Daily PRN Marcos Cyr PharmD budesonide (PULMICORT) nebulizer solution 0.5 mg 0.5 mg Nebulization BID - RT Cristian Mckee, DO 0.5 mg at 08/31/25 0800 Calcium Replacement - Follow Nurse / BPA Driven Protocol Not Applicable PRN Hermes Jaramillo MD dextrose (D50W) (25 g/50 mL) IV injection 25 g 25 g Intravenous Q15 Min PRN Hermes Jaramillo MD 25g at 08/28/25 0638 glucagon (GLUCAGEN) injection 1 mg 1 mg Subcutaneous Q15 Min PRN Hermes Jaramillo MD heparin (porcine) 5000 UNIT/ML injection 5,000 Units 5,000 Units Subcutaneous Q8H Cristian Mckee, DO 5,000 Units at 08/31/25 0555 hydrALAZINE (APRESOLINE) injection 10 mg 10 mg Intravenous Q6H PRN Alma Rosa Lucas PICKLE PUMPER 10 mg at110/31/24 0243 HYDROmorphone (DILAUDID) injection 0.5 mg 0.5 mg Intravenous Q2H PRN Hermes Jaramillo MD 0.5 mg at110/30/24 2109 hydrOXYzine (ATARAX) tablet 25 mg 25 mg Oral TID PRN Alma Rosa Lucas PICKLE PUMPER 25 mg at 08/29/25 2353 ipratropium-albuterol (DUO-NEB) nebulizer solution 3 mL 3 mL Nebulization Q6H PRN Hermes Jaramillo MD lisinopril (PRINIVIL,ZESTRIL) tablet 20 mg 20 mg Oral Q24H Brian Hughes MD 20 mg at 08/30/25 1556 Magnesium Standard Dose Replacement - Follow Nurse / BPA Driven Protocol Not Applicable PRN Hermes Jaramillo MD melatonin tablet 5 mg 5 mg Nasogastric Nightly PRN Marcos Cyr PharmD 5 mg at 08/29/25 2148 montelukast (SINGULAIR) tablet 10 mg 10 mg Nasogastric Nightly Marcos Cyr PharmD 10 mg at 08/30/25 2110 mupirocin (BACTROBAN) 2 % nasal ointment 1 Application 1 Application Each Nare BID Hermes Jaramillo MD 1 Application at 08/31/25 0815 naloxone (NARCAN) injection 0.4 mg 0.4 mg Intravenous Q5 Min PRN Hermes Jaramillo MD nitroglycerin (NITROSTAT) SL tablet 0.4 mg 0.4 mg Sublingual Q5 Min PRN Hermes Jaramillo MD norepinephrine (LEVOPHED) 8 mg in 250 mL NS infusion (premix) 0.02-0.3 mcg/kg/min Intravenous Titrated Hermes Jaramillo MD Stopped at 08/28/25 0232 ondansetron ODT (ZOFRAN-ODT) disintegrating tablet 4 mg 4 mg Translingual Q6H PRN Brian Hughes MD Or ondansetron (ZOFRAN) injection 4 mg 4 mg Intravenous Q6H PRN Brian Hughes MD pantoprazole (PROTONIX) injection 40 mg 40 mg Intravenous Q AM Gillian Dias PharmD 40 mg at 08/31/25 0555 phenylephrine (KAYLYNN-SYNEPHRINE) 50 mg in sodium chloride 0.9 % 250 mL infusion 0.5-3 mcg/kg/min Intravenous Titrated Hermes Jaramillo MD Stopped at 08/29/25 1610 Phosphorus Replacement - Follow Nurse / BPA Driven Protocol Not Applicable PRN Hermes Jaramillo MD piperacillin-tazobactam (ZOSYN) 4.5 g IVPB in 100 mL NS MBP (CD) 4.5 g Intravenous Q8H Marcos Cyr PharmD 4.5 g at 08/31/25 0818 potassium chloride (KLOR-CON) packet 40 mEq 40 mEq Oral Q4H Brian Hughes MD 40 mEq at 08/31/25 0509 Potassium Replacement - Follow Nurse / BPA Driven Protocol Not Applicable Hermes Mishra MD sodium chloride 0.9 % flush 10 mL 10 mL Intravenous Q12H Hermes Jaramillo MD 10 mL at 08/31/25 0818 sodium chloride 0.9 % flush 10 mL 10 mL Intravenous PRN Hermes Jaramillo MD vasopressin (PITRESSIN) 20 units in 100 mL NS infusion 0.03 Units/min Intravenous Continuous Hermes Jaramillo MD Stopped at 08/29/25 1833 Operative/Procedure Notes (most recent note) Hermes Jaramillo MD at 08/28/25 0820 Operative Report Patient Name: Loc Thurman Date of : 1940 [id number] 08/28/2025 PREOPERATIVE DIAGNOSIS: Acute cholecystitis with sepsis POSTOPERATIVE DIAGNOSIS: Same PROCEDURE PERFORMED: Laparoscopic cholecystectomy with intraoperative cholangiography SURGEON: Hermes Jaramillo MD GLASS BULB SILVERER: Annie Jorgensen PA-C. Annie Jorgensen PA-C was responsible for performing the following activities: Retraction, Placing Dressing, and Held/Positioned Camera and their skilled assistance was necessary for the success of this case. SPECIMENS: Gallbladder and contents ANESTHESIA: General. EBL: Minimal FINDINGS: 1. Gallbladder with acute cholecystitis 2. Intraoperative cholangiogram demonstrated excellent filling of the cystic, common, right and left hepatic ducts with good flow of contrast into the duodenum without retained stone or filling defect. The biliary tree itself, including the pancreatic duct, was very dilated but there was no obstruction or retained stone noted. 3. The remainder of the intra-abdominal organs including the right colon were all viable without evidence of being the primary source of the patient's sepsis. INDICATIONS: The patient is a 84 y.o. male with a history of abdominal pain, concerning for pancreatitis. However, subsequent imaging including his laboratory exam was more concerning for acute cholecystitis, andhe continued to have evidence of sepsis.. Preoperative imaging including CT scan confirmed the diagnosis. Given the failure of resuscitation, and the concern of ongoing sepsis, the decision was made to proceed to the operating room for definitive management. The risks and benefits of Laparoscopic cholecystectomy with cholangiography, as well as any other indicated and/or related procedure, were discussed with the patient and their family and they agreed to proceed. DESCRIPTION OF PROCEDURE: After obtaining informed consent, the patient was taken to the operating room and placed in the supine position. After appropriate DVT and antibiotic prophylaxis, general anesthesia was induced. The abdomen was prepped and draped in standard sterile fashion, and after infiltrating the skin with local anesthetic, a 12mm skin incision was made superior to the umbilicus . Blunt dissection was carried down to the base of the umbilicus, which was grasped with a Marielena clamp and elevated anteriorly. A vertical midline incision was made in the fascia, and blunt dissection was carried down into the peritoneal cavity. A stay suture of 0 Vicryl was then placed in floaox-ox-kapyd fashion around the defect, and a blunt trocar advanced without difficulty into the abdominal cavity. The abdomen was insufflated with carbon dioxide gas to a pressure of 15 mmHg, and a laparoscope advanced through the trocar and the abdominal contents were inspected. There was no evidence of bowel, bladder, or visceral injury with entrance of the trocar . At this point, after infiltrating the skin with local anesthetic, a standard laparoscopic cholecystectomy trocar placement schema was followed. The gallbladder was grasped and elevated superiorly. It was clearly acutely inflamed but did not have evidence of gangrene. Using meticulous blunt dissection , the cystic duct and cystic artery were bluntly dissected free of other structures and clearly identified using the Critical View technique. The cystic artery was then clipped twice proximally and once distally, and divided between the clips. The cystic duct was then clipped at its junction with the infundibulum of the gallbladder, and transected across 50% of its circumference. A cholangiogram catheter was then placed within the duct, and on-table cholangiography under fluoroscopy was obtained. There was excellent filling of the cystic, common, right and left hepatic ducts with good flow of contrast into the duodenum without retainedstone or filling defect. However, there was noted to be significant dilatation of the entire biliary tree including the pancreatic duct. The cholangiogram catheter was then removed, and the cystic duct was ligated using a 2-0 silk suture tied laparoscopically, reinforced with hemoclips, and divided. The gallbladder was then dissected free of the gallbladder fossa using a combination of electrocautery and blunt dissection . There was a small posterior branch of the artery that was clipped and divided . The gallbladder was then placed in an Endo Catch bag, and removed from the inferiormost trocar site. It was inspected on the back table, correlated with intra-operative findings, and passed offas specimen. The right upper quadrant was then inspected. The cystic duct and cystic artery stumps were intact without bleeding or biliary leak. The right upper quadrant was irrigated with saline until clear. Allbleeding was controlled with electrocautery. The abdomen was deflated and reinsufflated to make sure pneumoperitoneum was not tamponading any bleeding and there was none. We then began a brief inspection of the small bowel which was normal. The terminal ileum and ileocecal valve were normal. The ascending colon was normal without ischemia. The transverse colon was normal without ischemia. There is no evidence of ischemic bowel in the abdomen and no primary source of sepsis found otherwise. Identified VARGAS drain was placed in the gallbladder fossa, and brought out through the lateralmost trocar site. It was sutured to the skin using a nylon suture. He abdomen was again irrigated with saline until clear, and all trocars removed under direct and laparoscopic visualization. The fascia at the inferiormost incision was closed using the previously placed 0 Vicryl suture. The wounds were irrigated with normal saline, and closed in each area using absorbable subcuticular suture. The incisions were dressed in standard sterile fashion and covered with dry dressings. The VARGAS drain was dressed in standard sterile fashion, and placed to bulb suction. The patient recovered from anesthesia, and transferred to the PACU intubated in critical condition. All sponge and needle counts were correct timestwo at the completion of the procedure. COMPLICATIONS: None Hermes Jaramillo MD 08/28/2025 09:22 EST 0961 Physician Progress Notes (last 24 hours) Hermes Jaramillo MD at 08/31/25 8829 Patient Name: Loc Thurman Date of : 1940 [id number] Surgery Progress Note Date of visit: 08/31/2025 Subjective Subjective: Feeling better. Tolertaing trophic feeds, had a BM. Objective Objective: BP 151/71 (BP Location: Right arm, Patient Position: Lying) Pulse 83 Temp 98 ??F (36.7 ??C) (Oral) Resp 20 Ht 172.7 cm (67.99 ) Wt 94.2 kg (207 lb 10.8 oz) SpO2 96% BMI 31.58 kg/m?? Intake/Output Summary (Last 24 hours) at 08/31/2025 0724 Last data filed at 08/31/2025 0600 Gross per 24 hour Intake 908.6 ml Output 1925 ml Net -1016.4 ml CV: Rhythm regular and rate regular L: Clear to auscultation bilaterally Abd: Bowel sounds positive , soft, nontender. Dressings c/d/I. VARGAS serous Ext: No cyanosis, clubbing, edema Recent labs that are back at this time have been reviewed. Assessment/ Plan: Problem List Items Addressed This Visit Gastrointestinal Abdominal * (Principal) Acute pancreatitis - Primary- Improving slowly. FEES today. Increase mobility. OK forPO diet from my standpoint once passes dysphagia eval. Relevant Medications omeprazole (priLOSEC) 20 MG capsule phenylephrine (KAYLYNN-SYNEPHRINE) 50 mg in sodium chloride 0.9 % 250 mL infusion pantoprazole (PROTONIX) injection 40 mg piperacillin-tazobactam (ZOSYN) 4.5 g IVPB in 100 mL NS MBP (CD) sennosides-docusate (PERICOLACE) 8.6-50 MG per tablet 2 tablet polyethylene glycol (MIRALAX) packet 17 g bisacodyl (DULCOLAX) suppository 10 mg ondansetron ODT (ZOFRAN-ODT) disintegrating tablet 4 mg ondansetron (ZOFRAN) injection 4 mg docusate sodium (COLACE) 100 MG capsule Other Relevant Orders Insert Central Line At Bedside (Completed) Insert Arterial Line (Completed) Other Visit Diagnoses Cholecystitis Relevant Medications sodium chloride 0.9 % bolus 1,000 mL (Completed) piperacillin-tazobactam (ZOSYN) 3.375 g IVPB in 100 mL NS MBP (CD) (Completed) omeprazole (priLOSEC) 20 MG capsule phenylephrine (KAYLYNN-SYNEPHRINE) 50 mg in sodium chloride 0.9 % 250 mL infusion pantoprazole (PROTONIX) injection 40 mg piperacillin-tazobactam (ZOSYN) 4.5 g IVPB in 100 mL NS MBP (CD) sennosides-docusate (PERICOLACE) 8.6-50 MG per tablet 2 tablet polyethylene glycol (MIRALAX) packet 17 g bisacodyl (DULCOLAX) suppository 10 mg ondansetron ODT (ZOFRAN-ODT) disintegrating tablet 4 mg ondansetron (ZOFRAN) injection 4 mg docusate sodium (COLACE) 100 MG capsule Other Relevant Orders Tissue Pathology Exam Dysphagia, unspecified type Relevant Medications sodium chloride 0.9 % bolus 1,000 mL (Completed) sodium chloride 0.9 % flush 10 mL sodium chloride 0.9 % flush 10 mL Potassium Replacement - Follow Nurse / BPA Driven Protocol Magnesium Standard Dose Replacement - Follow Nurse / BPA Driven Protocol Phosphorus Replacement - Follow Nurse / BPA Driven Protocol Calcium Replacement - Follow Nurse / BPA Driven Protocol piperacillin-tazobactam (ZOSYN) 3.375 g IVPB in 100 mL NS MBP (CD) (Completed) omeprazole (priLOSEC) 20 MG capsule calcium gluconate 1000 Mg/50ml 0.675% NaCl IV SOLN (Completed) vitamin B-12 (CYANOCOBALAMIN) 1000 MCG tablet vitamin C (ASCORBIC ACID) 250 MG tablet sodium bicarbonate injection 8.4% 100 mEq (Completed) lactated ringers bolus 1,000 mL (Completed) phenylephrine (KAYLYNN-SYNEPHRINE) 50 mg in sodium chloride 0.9 % 250 mL infusion vasopressin (PITRESSIN) 20 units in 100 mL NS infusion sodium bicarbonate injection 8.4% 100 mEq (Completed) magnesium sulfate 2g/50 mL (PREMIX) infusion (Completed) pantoprazole (PROTONIX) injection 40 mg piperacillin-tazobactam (ZOSYN) 4.5 g IVPB in 100 mL NS MBP (CD) sennosides-docusate (PERICOLACE) 8.6-50 MG per tablet 2 tablet bisacodyl (DULCOLAX) suppository 10 mg ondansetron ODT (ZOFRAN-ODT) disintegrating tablet 4 mg ondansetron (ZOFRAN) injection 4 mg ferrous sulfate 325 (65 FE) MG tablet potassium phosphate 15 mmol in 0.9% normal saline 250 mL IVPB potassium chloride (KLOR-CON) packet 40 mEq Active Hospital Problems Diagnosis POA Acute pancreatitis [K85.90] Yes Respiratory insufficiency [R06.89] Yes Shock [R57.9] Unknown Vasovagal syncope [R55] Yes HTN (hypertension) [I10] Yes Mixed hyperlipidemia [E78.2] Yes COPD (chronic obstructive pulmonary disease) [J44.9] Yes Former tobacco use [Z87.891] Not Applicable History of prostate cancer [Z85.46] Not Applicable BPH with obstruction/lower urinary tract symptoms [N40.1, 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 Hermes Jaramillo MD 08/31/2025 07:24 EST 0780 Brian Hughes MD at 08/30/25 1208 Pulmonary/Critical Care ICU Note LOS: 3 days Patient Care Team: Lisa Arreola APRN as PCP - General (Nurse Practitioner) Chief Complaint: Sepsis Subjective History reviewed and updated in EMR as indicated. History of Present Illness Interval history: Patient tolerated extubation yesterday. Currently has excellent oxygen saturation on 4 L nasal cannula. He is awake and alert. No fevers or chills. Has remained n.p.o. General Surgery okay with initiating trophic feeds. PAST SURGICAL HISTORY: Laparoscopic cholecystectomy on 08/28/2025. SOCIAL HISTORY Tobacco: Former smoker History taken from: PMH/FH/Social History were reviewed and updated appropriately in the electronic medical record. Review of Systems: Review of 14 systems was completed with positives and pertinent negatives noted in the subjective section. All other systems reviewed and are negative. Exceptions are noted below: Unable to obtain secondary to endotracheal intubation. Objective Vital Signs Temp: [97.8 ??F (36.6 ??C)-98.9 ??F (37.2 ??C)] 98.3 ??F (36.8 ??C) Heart Rate: [64-89] 80 Resp: [12-20] 20 BP: (107-163)/(44-86) 151/75 Arterial Line BP: (104-176)/(29-134) 176/55 FiO2 (%): [40 %] 40 % 08/29 701 - 08/30 700 In: 489.6 [I.V.:267.4] Out: 2004 [Urine:1745; Drains:50] Body mass index is 31.33 kg/m??. Mode: VC+/AC FiO2 (%): [40 %] 40 % S RR: [16] 16 S VT: [460 mL] 460 mL PEEP/CPAP (cm H2O): [6 cm H20] 6 cm H20 NC SUP: [10 cm H20] 10 cm H20 MAP (cm H2O): [11] 11 IV drips: norepinephrine, Last Rate: Stopped (08/28/25 0232) phenylephrine, Last Rate: Stopped (08/29/25 1610) vasopressin, Last Rate: Stopped (08/29/25 1833) Physical Exam: Physical Exam General: Elderly male in no acute distress. HEENT: Normocephalic, atraumatic. Mucous membranes dry. Neck: No JVD. No lymphadenopathy. Heart: Regular rate and rhythm. No murmur. Lungs: Slightly diminished breath sounds bilaterally. No wheezes or rales. Abdomen: Soft, mildly distended, nontender, diminished bowel sounds. Abdominal drain with serous drainage. Extremities: 1+ bilateral lower extremity edema. 2+ radial and dorsalis pedis pulses bilaterally. Skin: No rashes. Neurologic: Awake and alert. Follows commands and moves all extremities. Psychiatric: Nonagitated. The above physical exam findings were reviewed and reflect my exam findings as of today's exam. Electronically signed by: Brian Hughes MD 08/30/25 12:08 EST Results Review: I reviewed the patient's new clinical results. Results from last 7 days Lab Units 08/30/25 0403 08/29/25 0607 08/28/25 0955 08/28/25 0613 SODIUM mmol/L 148* 146* 145 147* POTASSIUM mmol/L 3.5 4.1 3.7 3.6 CHLORIDE mmol/L 109* 105 106 106 CO2 mmol/L 30.9* 26.0 18.3* 15.5* BUN mg/dL 35.1* 38.4* 31.2* 29.7* CREATININE mg/dL 1.16 1.57* 1.72* 1.81* CALCIUM mg/dL 7.9* 7.9* 9.2 7.5* BILIRUBIN mg/dL 0.7 -- 0.8 0.7 ALK PHOS U/L 93 -- 71 101 ALT (SGPT) U/L 199* -- 234* 235* AST (SGOT) U/L 144* -- 259* 272* GLUCOSE mg/dL 98 119* 112* 67 Results from last 7 days Lab Units 08/30/25 0403 08/29/25 0607 08/28/25 0955 08/28/25 0843 08/28/25 0613 WBC 10*3/mm3 12.35* 15.08* 29.95* 29.84* -- 42.13* HEMOGLOBIN g/dL 8.3* 8.5* 7.2* 8.3* -- 9.2* HEMOGLOBIN, POC -- -- -- < > -- HEMATOCRIT % 26.5* 26.8* 23.2* 26.9* -- 28.9* HEMATOCRIT POC -- -- -- < > -- PLATELETS 10*3/mm3 96* 95* 137* 136* -- 183 MONOCYTES % % -- -- 2.0* -- 1.0* EOSINOPHIL % % -- -- 0.0* -- 0.0* < > = values in this interval not displayed. Results from last 7 days Lab Units 08/29/25 1710 PH, ARTERIAL pH units 7.490* PO2 ART mm Hg 145.0* PCO2, ARTERIAL mm Hg 31.6* HCO3 ART mmol/L 24.0 Results from last 7 days Lab Units 08/30/25 0403 08/29/25 0607 08/28/25 0135 MAGNESIUM mg/dL 2.7* 2.3 1.8 PHOSPHORUS mg/dL 2.5 5.2* -- I reviewed the patient's new imaging including images and reports. Results Labs - Lipase: 137 Imaging - Cholangiogram: 08/28/2025, Excellent filling of the cystic, common right and left hepatic ducts with good flow of contrast into the duodenum without retaining stone or filling defect. The biliary tree itself including the pancreatic duct was very dilated, but there was no obstruction or retained stone noted. Medication Review: arformoterol, 15 mcg, Nebulization, BID - RT budesonide, 0.5 mg, Nebulization, BID - RT heparin (porcine), 5,000 Units, Subcutaneous, Q8H montelukast, 10 mg, Nasogastric, Nightly mupirocin, 1 Application, Each Nare, BID pantoprazole, 40 mg, Intravenous, Q AM piperacillin-tazobactam, 4.5 g, Intravenous, Q8H potassium chloride ER, 20 mEq, Oral, Once sodium chloride, 10 mL, Intravenous, Q12H norepinephrine, 0.02-0.3 mcg/kg/min, Last Rate: Stopped (08/28/25 0232) phenylephrine, 0.5-3 mcg/kg/min, Last Rate: Stopped (08/29/25 1610) vasopressin, 0.03 Units/min, Last Rate: Stopped (08/29/25 1833) Assessment & Plan Acute pancreatitis Vasovagal syncope HTN (hypertension) Mixed hyperlipidemia COPD (chronic obstructive pulmonary disease) Former tobacco use History of prostate cancer BPH with obstruction/lower urinary tract symptoms Respiratory insufficiency Shock 84-year-old male who presents for acute abdominal pain and sepsis. He has a history of COPD, hypertension, mixed hyperlipidemia, high-grade prostate cancer status post external beam radiation and hormonal therapy, and is a former smoker. He recently underwent a lung biopsy for a lung nodule by Dr. Castillo in [place], [place] on 08/26/2025. Subsequently, he was seen at [facility] for acute abdominal pain and sepsis and was transferred to [facility] for further evaluation. He was diagnosed with pancrea titis and acute cholecystitis and was admitted to the ICU. General surgery was consulted, and he underwent a laparoscopic cholecystectomy by Dr. Jaramillo on 08/28/2025. Extubated 08/29/2025. Off pressors. Assessment & Plan 1. Shock, likely Systemic Inflammatory Response Syndrome (SIRS) secondary to pancreatitis/acute cholecystitis. Status post laparoscopic cholecystectomy with intraoperative cholangiogram on 08/28/2025. The cholangiogram showed excellent filling of the cystic, common right and left hepatic ducts with good flow of contrast into the duodenum without any retained stone or filling defect. The biliary tree, including the pancreatic duct, was significantly dilated, but no obstruction or retained stone was observed. Now off pressors. 2. Acute cholecystitis. Status post cholecystectomy. The general surgery team is actively managing the condition. A drain remains in place. Okay to start feeding per surgery. 3. Acute pancreatitis. Tube feeding will be resumed once pressors are weaned and with the approval of the surgical team. Lipase level, which was 11,000 at the outside hospital, has decreased to 576 upon admission. There isno definitive radiographic evidence of pancreatitis based on imaging conducted at this hospital. 4. Acute kidney injury. Creatinine level peaked at 1.85, likely due to shock/SIRS, but has since normalized. Continue to monitor intake and output. Adjust medication dosages based on renal function when appropriate and avoid nephrotoxic agents when feasible. 5. Syncope. Experienced a syncopal episode accompanied by hypotension during transport to the hospital. This was managed with resuscitation and monitoring and was possibly related to a vasovagal event or hypotension secondary to sepsis. 6. Chronic obstructive pulmonary disease (COPD). Continue bronchodilator therapy. Weaned from mechanical ventilation 08/29/2025. 7. Hypertension. Previously on lisinopril, which is currently being held due to hypotension, shock, and acute kidneyinjury. 8. Hyperlipidemia. Statin therapy will be resumed when deemed appropriate. 9. Deep vein thrombosis (DVT) prophylaxis. Administer subcutaneous heparin. 10. Peptic ulcer prophylaxis. Continue intravenous Protonix. Probably okay to telemetry soon if okay with surgery. 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 *Exception: for ICU patients or for instances where consent for use was not given, active listeningwas used only for dictation and was not used to record patient or family. 1232 Hermes Jaramillo MD at 08/30/25 0914 Patient Name: Loc Thurman Date of : 1940 [id number] Surgery Progress Note Date of visit: 08/30/2025 Subjective Subjective: Extubated overnight. Some confusion, but otherwise stable. Off pressors. Objective Objective: BP 163/86 Pulse 81 Temp 98.3 ??F (36.8 ??C) (Axillary) Resp 20 Ht 172.7 cm (67.99 ) Wt 93.4 kg (206 lb) SpO2 97% BMI 31.33 kg/m?? Intake/Output Summary (Last 24 hours) at 08/30/2025 0957 Last data filed at 08/30/2025 0800 Gross per 24 hour Intake 487.3 ml Output 1935 ml Net -1447.7 ml CV: Rhythm regular and rate regular L: Clear to auscultation bilaterally Abd: Bowel sounds positive , soft, less tender. Dressings c/d/I, VARGAS serous Ext: No cyanosis, clubbing, edema Recent labs that are back at this time have been reviewed. Labs improving. Assessment/ Plan: Problem List Items Addressed This Visit Gastrointestinal Abdominal * (Principal) Acute pancreatitis - Primary- Improving. Continue current management. OOBTC. Dysphagia eval. Will follow. Relevant Medications ondansetron ODT (ZOFRAN-ODT) disintegrating tablet 4 mg ondansetron (ZOFRAN) injection 4 mg omeprazole (priLOSEC) 20 MG capsule phenylephrine (KAYLYNN-SYNEPHRINE) 50 mg in sodium chloride 0.9 % 250 mL infusion pantoprazole (PROTONIX) injection 40 mg piperacillin-tazobactam (ZOSYN) 4.5 g IVPB in 100 mL NS MBP (CD) sennosides-docusate (PERICOLACE) 8.6-50 MG per tablet 2 tablet polyethylene glycol (MIRALAX) packet 17 g bisacodyl (DULCOLAX) suppository 10 mg Other Relevant Orders Insert Central Line At Bedside (Completed) Insert Arterial Line (Completed) Other Visit Diagnoses Cholecystitis Relevant Medications sodium chloride 0.9 % bolus 1,000 mL (Completed) piperacillin-tazobactam (ZOSYN) 3.375 g IVPB in 100 mL NS MBP (CD) (Completed) ondansetron ODT (ZOFRAN-ODT) disintegrating tablet 4 mg ondansetron (ZOFRAN) injection 4 mg omeprazole (priLOSEC) 20 MG capsule phenylephrine (KAYLYNN-SYNEPHRINE) 50 mg in sodium chloride 0.9 % 250 mL infusion pantoprazole (PROTONIX) injection 40 mg piperacillin-tazobactam (ZOSYN) 4.5 g IVPB in 100 mL NS MBP (CD) sennosides-docusate (PERICOLACE) 8.6-50 MG per tablet 2 tablet polyethylene glycol (MIRALAX) packet 17 g bisacodyl (DULCOLAX) suppository 10 mg Other Relevant Orders Tissue Pathology Exam Active Hospital Problems Diagnosis POA Acute pancreatitis [K85.90] Yes Respiratory insufficiency [R06.89] Yes Shock [R57.9] Unknown Vasovagal syncope [R55] Yes HTN (hypertension) [I10] Yes Mixed hyperlipidemia [E78.2] Yes COPD (chronic obstructive pulmonary disease) [J44.9] Yes Former tobacco use [Z87.891] Not Applicable History of prostate cancer [Z85.46] Not Applicable BPH with obstruction/lower urinary tract symptoms [N40.1, 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 Hermes Jaramillo MD 08/30/2025 09:57 EST 0958 Physical Therapy Notes (most recent note) Flora Galvan, PT at 08/30/25 0903 Version 1 of 1 Patient Name: Loc Thurman : 1940 Today's Date: 08/30/2025 Admit Date: 08/27/2025 Visit Dx: ICD-10-CM ICD-9-CM 1. Acute pancreatitis, unspecified complication status, unspecified pancreatitis type K85.90 577.0 2. Cholecystitis K81.9 575.10 3. Dysphagia, unspecified type R13.10 787.20 Patient Active Problem List Diagnosis Acute pancreatitis Vasovagal syncope HTN (hypertension) Mixed hyperlipidemia COPD (chronic obstructive pulmonary disease) Former tobacco use History of prostate cancer BPH with obstruction/lower urinary tract symptoms Respiratory insufficiency Shock Past Medical History: Diagnosis Date Cancer COPD (chronic obstructive pulmonary disease) Hyperlipidemia Hypertension Past Surgical History: Procedure Laterality Date APPENDECTOMY CHOLECYSTECTOMY WITH INTRAOPERATIVE CHOLANGIOGRAM N/A 08/28/2025 Procedure: CHOLECYSTECTOMY LAPAROSCOPIC INTRAOPERATIVE CHOLANGIOGRAM; Surgeon: Hermes Jaramillo MD; Location: [facility]; Service: General; Laterality: N/A; COLONOSCOPY HERNIA REPAIR General Information Row Name 08/30/25 1333 Physical Therapy Time and Intention Document Type evaluation -KG Mode of Treatment physical therapy -KG Row Name 08/30/25 9539 General Information Patient Profile Reviewed yes -KG Prior Level of Function independent:;all household mobility;gait;transfer;ADL's;dressing;bathing -KG Existing Precautions/Restrictions fall;oxygen therapy device and L/min;other (see comments) abdominal incision; confusion; NG -KG Barriers to Rehab medically complex;cognitive status;hearing deficit -KG Row Name 08/30/25 4881 Living Environment Current Living Arrangements home -KG People in Home alone -KG Row Name 08/30/25 133 Home Main Entrance Number of Stairs, Main Entrance four -KG Stair Railings, Main Entrance none -KG Row Name 08/30/25 133 Stairs Within Home, Primary Number of Stairs, Within Home, Primary none -KG Row Name 08/30/251332 Cognition Orientation Status (Cognition) oriented x 3 -KG Row Name 08/30/251332 Safety Issues/Impairments Affecting Functional Mobility Safety Issues Affecting Function (Mobility) awareness of need for assistance;insight into deficits/self-awareness;judgment;safety precaution awareness;safety precautions follow-through/compliance;sequencing abilities -KG Impairments Affecting Function (Mobility) balance;cognition;coordination;endurance/activity tolerance;pain;postural/trunk control;shortness of breath;strength -KG Cognitive Impairments, Mobility Safety/Performance attention;awareness, need for assistance;insightinto deficits/self-awareness;judgment;safety precaution awareness;safety precaution follow-through;sequencing abilities -KG User Jung (r) = Recorded By, (t) = Taken By, (c) = Cosigned By Initials Name Provider Type KG Flora Galvan, PT Physical Therapist Mobility Row Name 08/30/251333 Bed Mobility Bed Mobility supine-sit -KG Supine-Sit Reynolds (Bed Mobility) moderate assist (50% patient effort);2 person assist;verbal cues -KG Assistive Device (Bed Mobility) bed rails;head of bed elevated;repositioning sheet -KG Comment, (Bed Mobility) VC's for sequencing and technique. Pt required increased assistance at trunk and BLEs. Increased time and effort required to complete. Once seated EOB pt demonstrated R lateral lean. -KG Row Name 08/30/251333 Transfers Comment, (Transfers) Pt performed STS from EOB with blocking of елена knees and B UE support. Pt demonstrated very forward flexed posture with елена knee flexion; difficulty achieving full upright posture. Pt able to take steps from bed to chair with modA x2 and B UE support. Pt performed SPT from chair to BSC with maxA x2 demonstrating increased difficulty advancing LEs. -KG Row Name 08/30/251333 Bed-Chair Transfer Bed-Chair Reynolds (Transfers) maximum assist (25% patient effort);2 person assist;verbal cues -KG Assistive Device (Bed-Chair Transfers) other (see comments) B UE support -KG Row Name 08/30/25 1334 Sit-Stand Transfer Sit-Stand Reynolds (Transfers) moderate assist (50% patient effort);2 person assist;verbal cues-KG Assistive Device (Sit-Stand Transfers) other (see comments) B UE support -KG Row Name 08/30/25 1334 Gait/Stairs (Locomotion) Reynolds Level (Gait) moderate assist (50% patient effort);2 person assist;verbal cues -KG Assistive Device (Gait) other (see comments) B UE support -KG Distance in Feet (Gait) 2 -KG Deviations/Abnormal Patterns (Gait) bilateral deviations;cassidy decreased;festinating/shuffling;stride length decreased -KG Bilateral Gait Deviations forward flexed posture;heel strike decreased -KG Comment, (Gait/Stairs) Pt able to take steps from bed to chair. Initially utilized tripod monitor, but pt had tendency to push too far forward creating more forward flexed posture. Deferred usage dueto safety concerns. Pt improved slightly with use of B UE support. -KG User Jung (r) = Recorded By, (t) = Taken By, (c) = Cosigned By Initials Name Provider Type KG Flora Galvan, PT Physical Therapist Obj/Interventions Row Name 08/30/25 1337 Range of Motion Comprehensive General Range of Motion no range of motion deficits identified -KG Comment, General Range of Motion B LE WFL -KG Row Name 08/30/25 1337 Strength Comprehensive (MMT) Comment, General Manual Muscle Testing (MMT) Assessment B LE grossly 3+/5 -KG Row Name 08/30/25 133 Balance Balance Assessment sitting static balance;standing static balance;standing dynamic balance -KG Static Sitting Balance minimal assist -KG Position, Sitting Balance supported;sitting edge of bed -KG Static Standing Balance moderate assist;2-person assist -KG Dynamic Standing Balance maximum assist;2-person assist -KG Position/Device Used, Standing Balance supported -KG Row Name 08/30/25 1337 Sensory Assessment (Somatosensory) Sensory Assessment (Somatosensory) LE sensation intact -KG User Jung (r) = Recorded By, (t) = Taken By, (c) = Cosigned By Initials Name Provider Type KG Flora Galvan, PT Physical Therapist Goals/Plan Row Name 08/30/25 1339 Bed Mobility Goal 1 (PT) Activity/Assistive Device (Bed Mobility Goal 1, PT) sit to supine;supine to sit -KG Reynolds Level/Cues Needed (Bed Mobility Goal 1, PT) minimum assist (75% or more patient effort) -KG Time Frame (Bed Mobility Goal 1, PT) short term goal (STG);5 days -KG Progress/Outcomes (Bed Mobility Goal 1, PT) goal ongoing -KG Row Name 08/30/25 133 Transfer Goal 1 (PT) Activity/Assistive Device (Transfer Goal 1, PT) izh-of-imknw/fugin-as-ugz;ubm-lb-lhvrt/zcjzx-mj-tcq;walker, rolling -KG Reynolds Level/Cues Needed (Transfer Goal 1, PT) minimum assist (75% or more patient effort) -KG Time Frame (Transfer Goal 1, PT) supervisor intermediates goal (LTG);10 days -KG Progress/Outcome (Transfer Goal 1, PT) goal ongoing -KG Row Name 08/30/251338 Gait Training Goal 1 (PT) Activity/Assistive Device (Gait Training Goal 1, PT) gait (walking locomotion);assistive device use;walker, rolling -KG Reynolds Level (Gait Training Goal 1, PT) moderate assist (50-74% patient effort) -KG Distance (Gait Training Goal 1, PT) 50 feet -KG Time Frame (Gait Training Goal 1, PT) supervisor intermediates goal (LTG);10 days -KG Progress/Outcome (Gait Training Goal 1, PT) goal ongoing -KG Row Name 08/30/25 6355 Therapy Assessment/Plan (PT) Planned Therapy Interventions (PT) balance training;bed mobility training;gait training;strengthening;transfer training -KG User Jung (r) = Recorded By, (t) = Taken By, (c) = Cosigned By Initials Name Provider Type KG Flora Galvan N, PT Physical Therapist Clinical Impression Row Name 08/30/25 4857 Pain Additional Documentation Pain Scale: FACES Pre/Post-Treatment (Group) -KG Row Name 08/30/25 4260 Pain Scale: FACES Pre/Post-Treatment Pain: FACES Scale, Pretreatment 4-->hurts little more -KG Posttreatment Pain Rating 6-->hurts even more -KG Row Name 08/30/25 6969 Plan of Care Review Plan of Care Reviewed With patient -KG Outcome Evaluation PT initial evaluation completed for pt s/p cholecystectomy presenting with generalized weakness, increased SOA, impaired balance and coordination, c/o incisional pain, and decreased functional mobility. Pt required modA x2 for STS transfers and modA x2- maxA x2 to take steps frombed to chair and BSC. Pt's decreased independence warrants clinical account executive care. Recommend D/C to IP rehab facility. -KG Row Name 08/30/25 1337 Therapy Assessment/Plan (PT) Patient/Family Therapy Goals Statement (PT) return to PLOF -KG Rehab Potential (PT) good -KG Criteria for Skilled Interventions Met (PT) yes;skilled treatment is necessary -KG Therapy Frequency (PT) daily -KG Predicted Duration of Therapy Intervention (PT) 10 days -KG Row Name 08/30/25 1337 Vital Signs Pre Systolic BP Rehab 163 -KG Pre Treatment Diastolic BP 86 -KG Post Systolic BP Rehab 151 -KG Post Treatment Diastolic BP 75 -KG Pretreatment Heart Rate (beats/min) 80 -KG Posttreatment Heart Rate (beats/min) 83 -KG Pre SpO2 (%) 98 -KG O2 Delivery Pre Treatment supplemental O2 -KG Post SpO2 (%) 98 -KG O2 Delivery Post Treatment supplemental O2 -KG Pre Patient Position Supine -KG Intra Patient Position Standing -KG Post Patient Position Sitting -KG Row Name 08/30/25 1337 Positioning and Restraints Pre-Treatment Position in bed -KG Post Treatment Position bsc -KG On BS commode notified nsg;sitting;call light within reach;encouraged to call for assist;with family/caregiver -KG User Jung (r) = Recorded By, (t) = Taken By, (c) = Cosigned By Initials Name Provider Type KG Flora Galvan, PT Physical Therapist Outcome Measures Row Name 08/30/25 1340 How much help from another person do you currently need... Turning from your back to your side while in flat bed without using bedrails? 2 -KG Moving from lying on back to sitting on the side of a flat bed without bedrails? 2 -KG Moving to and from a bed to a chair (including a wheelchair)? 2 -KG Standing up from a chair using your arms (e.g., wheelchair, bedside chair)? 2 -KG Climbing 3-5 steps with a railing? 1 -KG To walk in hospital room? 2 -KG AM-PAC 6 Clicks Score (PT) 11 -KG Highest Level of Mobility Goal Move to Chair/Commode-4 -KG Row Name 08/30/25 1340 08/30/25 1147 Functional Assessment Outcome Measure Options AM-PAC 6 Clicks Basic Mobility (PT) -KG AM-PAC 6 Clicks Daily Activity (OT)- User Jung (r) = Recorded By, (t) = Taken By, (c) = Cosigned By Initials Name Provider Type KG Flora Galvan, PT Physical Therapist Aury Gallegos, OT Occupational Therapist Physical Therapy Education Title: PT OT PSYCH TECH Therapies (In Progress) Topic: Physical Therapy (In Progress) Point: Mobility training (In Progress) Learning Progress Summary Patient Acceptance, E, NR by KG at 08/30/2025902 Point: Home exercise program (Not Started) Learner Progress: Not documented in this visit. Point: Body mechanics (In Progress) Learning Progress Summary Patient Acceptance, E, NR by KG at 08/30/2025902 Point: Precautions (In Progress) Learning Progress Summary Patient Acceptance, E, NR by KG at 08/30/2025902 User Jung Initials Effective Dates Name Provider Type Discipline KG 03/10/20 - Flora Galvan, PT Physical Therapist PT PT Recommendation and Plan Recommended discharge disposition is based on the functional assessment performed by PT/OT/Speech therapy (as applicable) and may not reflect the medical necessity determined by your provider or services covered by an individual patient's insurance plan or patient resource. Planned Therapy Interventions (PT): balance training, bed mobility training, gait training, strengthening, transfer training Therapy Frequency (PT): daily Outcome Evaluation: PT initial evaluation completed for pt s/p cholecystectomy presenting with generalized weakness, increased SOA, impaired balance and coordination, c/o incisional pain, and decreased functional mobility. Pt required modA x2 for STS transfers and modA x2- maxA x2 to take steps from bed to chair and BSC. Pt's decreased independence warrants clinical account executive care. Recommend D/C to IP rehab facility. Time Calculation: PT Evaluation Complexity History, PT Evaluation Complexity: 3 or more personal factors and/or comorbidities Examination of Body Systems (PT Eval Complexity): total of 3 or more elements Clinical Presentation (PT Evaluation Complexity): evolving Clinical Decision Making (PT Evaluation Complexity): moderate complexity Overall Complexity (PT Evaluation Complexity): moderate complexity PT Charges Row Name 08/30/25 0903 Time Calculation Start Time 0903 -KG PT Received On 08/30/25 -KG PT Goal Re-Cert Due Date 09/09/25 -KG Untimed Charges PT Eval/Re-eval Minutes 52 -KG Total Minutes Untimed Charges Total Minutes 52 -KG Total Minutes 52 -KG User Jung (r) = Recorded By, (t) = Taken By, (c) = Cosigned By Initials Name Provider Type KG Flora Galvan, PT Physical Therapist Therapy Charges for Today Code Description Service Date Service Provider Modifiers Qty [id number] HC PT EVAL MOD COMPLEXITY 4 08/30/2025 Flora Galvan, PT GP 1 PT G-Codes Outcome Measure Options: AM-PAC 6 Clicks Basic Mobility (PT) AM-PAC 6 Clicks Score (PT): 11 AM-PAC 6 Clicks Score (OT): 12 PT Discharge Summary Anticipated Discharge Disposition (PT): inpatient rehabilitation facility Ellen Galvan PT 08/30/2025 1341 Occupational Therapy Notes (most recent note) Aury Fitzgerald, OT at 08/30/25 0916 Patient Name: Loc Thurman : 1940 Today's Date: 08/30/2025 Admit Date: 08/27/2025 Visit Dx: ICD-10-CM ICD-9-CM 1. Acute pancreatitis, unspecified complication status, unspecified pancreatitis type K85.90 577.0 2. Cholecystitis K81.9 575.10 3. Dysphagia, unspecified type R13.10 787.20 Patient Active Problem List Diagnosis Acute pancreatitis Vasovagal syncope HTN (hypertension) Mixed hyperlipidemia COPD (chronic obstructive pulmonary disease) Former tobacco use History of prostate cancer BPH with obstruction/lower urinary tract symptoms Respiratory insufficiency Shock Past Medical History: Diagnosis Date Cancer COPD (chronic obstructive pulmonary disease) Hyperlipidemia Hypertension Past Surgical History: Procedure Laterality Date APPENDECTOMY CHOLECYSTECTOMY WITH INTRAOPERATIVE CHOLANGIOGRAM N/A 08/28/2025 Procedure: CHOLECYSTECTOMY LAPAROSCOPIC INTRAOPERATIVE CHOLANGIOGRAM; Surgeon: Hermes Jaramillo MD; Location: [facility]; Service: General; Laterality: N/A; COLONOSCOPY HERNIA REPAIR General Information Row Name 08/30/25 1140 OT Time and Intention Document Type evaluation - Mode of Treatment occupational therapy;co-treatment - Row Name 08/30/25 1140 General Information Patient Profile Reviewed yes - Prior Level of Function independent:;bed mobility;transfer;all household mobility;community mobility;ADL's Pt I w/ ADLs at baseline, uses RW PRN. - Existing Precautions/Restrictions fall;oxygen therapy device and L/min;other (see comments) abd incision, 5LNC - Barriers to Rehab medically complex;previous functional deficit - Row Name 08/30/25 1140 Living Environment Current Living Arrangements home - People in Home alone - Row Name 08/30/25 1140 Home Main Entrance Number of Stairs, Main Entrance four - Stair Railings, Main Entrance none - Row Name 08/30/25 1140 Stairs Within Home, Primary Number of Stairs, Within Home, Primary none - Row Name 08/30/25 1140 Cognition Orientation Status (Cognition) oriented x 3 - Row Name 08/30/25 1140 Safety Issues/Impairments Affecting Functional Mobility Safety Issues Affecting Function (Mobility) awareness of need for assistance;insight into deficits/self-awareness;safety precaution awareness;safety precautions follow-through/compliance;sequencing abilities [facility] Impairments Affecting Function (Mobility) balance;cognition;endurance/activity tolerance;pain;postural/trunk control;shortness of breath;strength - Cognitive Impairments, Mobility Safety/Performance awareness, need for assistance;insight into deficits/self-awareness;safety precaution awareness;safety precaution follow-through;sequencing abilities [facility] User Jung (r) = Recorded By, (t) = Taken By, (c) = Cosigned By Initials Name Provider Type Aury Fitzgerald OT Occupational Therapist Mobility/ADL's Row Name 08/30/25 1141 Bed Mobility Bed Mobility supine-sit - Supine-Sit Reynolds (Bed Mobility) moderate assist (50% patient effort);2 person assist;verbal cues - Bed Mobility, Safety Issues decreased use of arms for pushing/pulling;decreased use of legs for bridging/pushing;impaired trunk control for bed mobility;cognitive deficits limit understanding - Assistive Device (Bed Mobility) bed rails;head of bed elevated;repositioning sheet - Row Name 08/30/25 1141 Transfers Transfers sit-stand transfer;stand-sit transfer;toilet transfer;bed-chair transfer - Comment, (Transfers) Pt mod Ax2 for STS & SPT from [id number] but req max Ax2 for SPT from [id number]. - Row Name 08/30/25 1141 Bed-Chair Transfer Bed-Chair Reynolds (Transfers) moderate assist (50% patient effort);2 person assist;verbal cues- Assistive Device (Bed-Chair Transfers) other (see comments) BUE support - Row Name 08/30/25 1141 Sit-Stand Transfer Sit-Stand Reynolds (Transfers) moderate assist (50% patient effort);2 person assist;verbal cues- Assistive Device (Sit-Stand Transfers) other (see comments) - Row Name 08/30/25 1141 Stand-Sit Transfer Stand-Sit Reynolds (Transfers) moderate assist (50% patient effort);2 person assist;verbal cues- Assistive Device (Stand-Sit Transfers) other (see comments) -[facility] Name 08/30/25 1141 Toilet Transfer Type (Toilet Transfer) sit-stand;stand-sit;stand pivot/stand step - Reynolds Level (Toilet Transfer) maximum assist (25% patient effort);2 person assist;verbal cues - Assistive Device (Toilet Transfer) commode, bedside without drop arms - Row Name 08/30/25 1141 Activities of Daily Living BADL Assessment/Intervention lower body dressing;upper body dressing -[facility] Name 08/30/25 1141 Lower Body Dressing Assessment/Training Reynolds Level (Lower Body Dressing) don;socks;dependent (less than 25% patient effort) - Position (Lower Body Dressing) supine - Row Name 08/30/25 1141 Upper Body Dressing Assessment/Training Reynolds Level (Upper Body Dressing) don;pajama/robe;maximum assist (25% patient effort) - Position (Upper Body Dressing) edge of bed sitting - User Jung (r) = Recorded By, (t) = Taken By, (c) = Cosigned By Initials Name Provider Type Aury Fitzgerald OT Occupational Therapist Obj/Interventions Row Name 08/30/25 1145 Sensory Assessment (Somatosensory) Sensory Assessment (Somatosensory) UE sensation intact -[facility] 08/30/25 1145 Vision Assessment/Intervention Visual Impairment/Limitations WFL -[facility] 08/30/25 1145 Range of Motion Comprehensive General Range of Motion bilateral upper extremity ROM WFL -[facility] 08/30/25 1145 Strength Comprehensive (MMT) General Manual Muscle Testing (MMT) Assessment upper extremity strength deficits identified - Comment, General Manual Muscle Testing (MMT) Assessment BUE grossly 4-/5 -[facility] 08/30/25 1145 Balance Balance Assessment sitting static balance;sitting dynamic balance;sit to stand dynamic balance;standing static balance;standing dynamic balance - Static Sitting Balance minimal assist - Dynamic Sitting Balance moderate assist - Position, Sitting Balance unsupported;sitting in chair;sitting edge of bed - Sit to Stand Dynamic Balance moderate assist;2-person assist;verbal cues - Static Standing Balance moderate assist;2-person assist;verbal cues - Dynamic Standing Balance maximum assist;2-person assist;verbal cues - Position/Device Used, Standing Balance supported - Balance Interventions sitting;sit to stand;occupation based/functional task - User Jung (r) = Recorded By, (t) = Taken By, (c) = Cosigned By Initials Name Provider Type Aury Fitzgerald OT Occupational Therapist Goals/[facility] 08/30/251146 Transfer Goal 1 (OT) Activity/Assistive Device (Transfer Goal 1, OT) [id number];toilet;walker, rolling - Reynolds Level/Cues Needed (Transfer Goal 1, OT) standby assist - Time Frame (Transfer Goal 1, OT) intermediate goal (LTG);10 days - Progress/Outcome (Transfer Goal 1, OT) goal ongoing -[facility] 08/30/25 114 Toileting Goal 1 (OT) Activity/Device (Toileting Goal 1, OT) adjust/manage clothing;perform perineal hygiene;commode;grabbar/safety frame - Reynolds Level/Cues Needed (Toileting Goal 1, OT) standby assist - Time Frame (Toileting Goal 1, OT) short term goal (STG);5 days - Progress/Outcome (Toileting Goal 1, OT) goal ongoing -[facility] 11/11/25 1147 Grooming Goal 1 (OT) Activity/Device (Grooming Goal 1, OT) hair care;oral care;wash face, hands - Reynolds (Grooming Goal 1, OT) standby assist - Time Frame (Grooming Goal 1, OT) supervisor intermediates goal (LTG);10 days - Progress/Outcome (Grooming Goal 1, OT) goal ongoing - Row Name 08/30/25 1147 Therapy Assessment/Plan (OT) Planned Therapy Interventions (OT) activity tolerance training;adaptive equipment training;BADL retraining;functional balance retraining;IADL retraining;occupation/activity based interventions;patient/caregiver education/training;ROM/therapeutic exercise;strengthening exercise;transfer/mobility retraining - User Jung (r) = Recorded By, (t) = Taken By, (c) = Cosigned By Initials Name Provider Type Aury Fitzgerald, ARY Occupational Therapist Clinical Impression [facility] Name 08/30/25 1140 Pain Assessment Pain Location abdomen - Pain Side/Orientation generalized - Pain Management Interventions exercise or physical activity utilized;positioning techniques utilized - Response to Pain Interventions activity participation with tolerable pain - Additional Documentation Pain Scale: FACES Pre/Post-Treatment (Group) -[facility] Name 08/30/25 1145 Pain Scale: FACES Pre/Post-Treatment Pain: FACES Scale, Pretreatment 4-->hurts little more - Posttreatment Pain Rating 4-->hurts little more -[facility] Name 08/30/25 1148 Plan of Care Review Plan of Care Reviewed With patient;son - Outcome Evaluation Pt's ADL independence limited d/t generalized weakness, decrease functional endurance, balance deficits, and pain. Pt would benefit from continued skilled IPOT services to address current functional deficits. Rec IRF at d/c. - Row Name 08/30/25 1141 Therapy Assessment/Plan (OT) Patient/Family Therapy Goal Statement (OT) Return to OF - Rehab Potential (OT) good - Criteria for Skilled Therapeutic Interventions Met (OT) yes;skilled treatment is necessary - Therapy Frequency (OT) daily - Predicted Duration of Therapy Intervention (OT) 10 days - Row Name 08/30/25 1149 Therapy Plan Review/Discharge Plan (OT) Anticipated Discharge Disposition (OT) inpatient rehabilitation facility - Row Name 08/30/25 114 Vital Signs Pre Systolic BP Rehab 163 - Pre Treatment Diastolic BP 86 -[facility] Intra Systolic BP Rehab 167 -[facility] Intra Treatment Diastolic BP 72 -[facility] Post Systolic BP Rehab 151 -[facility] Post Treatment Diastolic BP 75 -[facility] Pretreatment Heart Rate (beats/min) 80 -[facility] Posttreatment Heart Rate (beats/min) 81 -[facility] Pre SpO2 (%) 98 -[facility] O2 Delivery Pre Treatment nasal cannula -MC O2 Delivery Intra Treatment nasal cannula - Post SpO2 (%) 98 -[facility] O2 Delivery Post Treatment nasal cannula -[facility] Pre Patient Position Supine - Intra Patient Position Standing - Post Patient Position Sitting - Row Name 08/30/25 1145 Positioning and Restraints Pre-Treatment Position in bed - Post Treatment Position bsc - On BS commode notified nsg;sitting;call light within reach;encouraged to call for assist;with family/caregiver - User Jung (r) = Recorded By, (t) = Taken By, (c) = Cosigned By Initials Name Provider Type Aury Fitzgerald OT Occupational Therapist Outcome Measures Row Name 08/30/25 1147 How much help from another is currently needed... Putting on and taking off regular lower body clothing? 1 -MC Bathing (including washing, rinsing, and drying) 2 -[facility] Toileting (which includes using toilet bed currie or urinal) 1 -[facility] Putting on and taking off regular upper body clothing 2 -[facility] Taking care of personal grooming (such as brushing teeth) 3 -MC Eating meals 3 - AM-PAC 6 Clicks Score (OT) 12 - Row Name 08/30/25 1147 Functional Assessment Outcome Measure Options AM-PAC 6 Clicks Daily Activity (OT) - User Jung (r) = Recorded By, (t) = Taken By, (c) = Cosigned By Initials Name Provider Type Aury Fitzgerald OT Occupational Therapist Occupational Therapy Education Title: PT OT PSYCH TECH Therapies (In Progress) Topic: Occupational Therapy (In Progress) Point: ADL training (In Progress) Learning Progress Summary Patient Acceptance, E, NR by at 08/30/2025 1147 Point: Precautions (In Progress) Learning Progress Summary Patient Acceptance, E, NR by at 08/30/2025 1147 Point: Body mechanics (In Progress) Learning Progress Summary Patient Acceptance, E, NR by at 08/30/2025 1147 User Jung Initials Effective Dates Name Provider Type [facility] 08/02/22 - Aury Fitzgerald OT Occupational Therapist OT OT Recommendation and Plan Recommended discharge disposition is based on the functional assessment performed by PT/OT/Speech therapy (as applicable) and may not reflect the medical necessity determined by your provider or services covered by an individual patient's insurance plan or patient resource. Planned Therapy Interventions (OT): activity tolerance training, adaptive equipment training, BADL retraining, functional balance retraining, IADL retraining, occupation/activity based interventions,patient/caregiver education/training, ROM/therapeutic exercise, strengthening exercise, transfer/mobility retraining Therapy Frequency (OT): daily Plan of Care Review Plan of Care Reviewed With: patient, son Outcome Evaluation: Pt's ADL independence limited d/t generalized weakness, decrease functional endurance, balance deficits, and pain. Pt would benefit from continued skilled IPOT services to addresscurrent functional deficits. Rec IRF at d/c. Time Calculation: Evaluation Complexity (OT) Review Occupational Profile/Medical/Therapy History Complexity: expanded/moderate complexity Assessment, Occupational Performance/Identification of Deficit Complexity: 3-5 performance deficits Clinical Decision Making Complexity (OT): detailed assessment/moderate complexity Overall Complexity of Evaluation (OT): moderate complexity Time Calculation- OT Row Name 08/30/25 1147 Time Calculation- OT OT Start Time 09 - OT Received On 08/30/25 - OT Goal Re-Cert Due Date 09/09/25 - Untimed Charges OT Eval/Re-eval Minutes 47 -MC Total Minutes Untimed Charges Total Minutes 47 -MC Total Minutes 47 -[facility] User Jung (r) = Recorded By, (t) = Taken By, (c) = Cosigned By Initials Name Provider Type Aury Fitzgerald OT Occupational Therapist Therapy Charges for Today Code Description Service Date Service Provider Modifiers Qty [id number] OT EVAL MOD COMPLEXITY 4 08/30/2025 Aury Fitzgerald OT GO 1 Aury Fitzgerald OT 08/30/2025 1148 Speech Language Pathology Notes (most recent note) No notes exist for this encounter. documented in this encounter Discharge Instructions * Attachments The following attachments cannot be sent through Care Everywhere. * Acute Pancreatitis (Irish) documented in this encounter Medications at Time of Discharge albuterol sulfate HFA 108 (90 Base) MCG/ACT inhaler Inhale 2 puffs Every 4 (Four) Hours As Needed for Wheezing. cetirizine (zyrTEC) 10 MG tablet Take 1 tablet by mouth Daily. diphenhydrAMINE (BENADRYL) 25 mg capsule Take 1 capsule by mouth At Night As Needed for Sleep. docusate sodium (COLACE) 100 MG capsule Take 1 capsule by mouth Daily As Needed for Constipation. doxazosin (CARDURA) 4 MG tablet Take 1 tablet by mouth Every Night. ferrous sulfate 325 (65 FE) MG tablet Take 1 tablet by mouth 2 (Two) Times a Day. Glycopyrrolate-Fo rmoterol (Bevespi Aerosphere) 9-4.8 MCG/ACT aerosol Inhale 2 sprays 2 (Two) Times a Day. lisinopril (PRINIVIL,ZESTRIL ) 40 MG tablet Take 1 tablet by mouth Daily. 30 tablet 09/06/2025 montelukast (SINGULAIR) 10 MG tablet Take 1 tablet by mouth Every Night. omeprazole (priLOSEC) 20 MG capsule Take 1 capsule by mouth Daily. vitamin B-12 (CYANOCOBALAMIN) 1000 MCG tablet Take 1 tablet by mouth Daily. vitamin C (ASCORBIC ACID) 250 MG tablet Take 1 tablet by mouth Daily. documented as of this encounter Progress Notes * Qiana Mcnair, RD - 09/05/2025 12:27 PM EST Patient Name: Loc Thurman Date of : 1940 Admission date: 08/27/2025 Reason for Encounter: Follow-up/Progress Note [facility] Clinical Nutrition Assessment Subjective Subjective Information 09/05 PSYCH TECH re-evaluated pt today and advanced modified to to soft to chew textures with thin liquids. Pt excited with diet change and ready to eat normal foods and drink normal liquids again. Agreeable to continue Magic Cup BID. Tolerating po and having Bms. 09/02 NG removed yesterday. Patient out of room at time of visit, son at bedside. Son reports patient does not like modified diet but trying to take some bites of items. Unsure if Magic Cups have been tried, but agreeable to continue. Son states patient is out of room for swallow study. Discussed possible adjustment of ONS depending on results of swallow study. 08/31 Pt passed FEES this morning for pureed/NTL; however per RN, pt with difficulty swallowing pill withliquids after diet advance. ? Hypersensitivity to NG tube. TF initiated yesterday - Tolerating without difficulty. Noted electrolyte abnormalities (? Refeeding syndrome), hypernatremia (151), hypokalemia 3.2, hypophosphatemia 1.7. All replaced per protocol. 08/30 Pt identified as NPO/Clear Liquid Diet >/= 72 hrs. POD#3 s/p CCY. Extubated however unable to have diet advanced per RN. ? FEES tomorrow. Objective H&P and Current Problems H&P Past Medical History: Diagnosis Date Cancer COPD (chronic obstructive pulmonary disease) Hyperlipidemia Hypertension Past Surgical History: Procedure Laterality Date APPENDECTOMY CHOLECYSTECTOMY WITH INTRAOPERATIVE CHOLANGIOGRAM N/A 08/28/2025 Procedure: CHOLECYSTECTOMY LAPAROSCOPIC INTRAOPERATIVE CHOLANGIOGRAM; Surgeon: Hermes Jaramillo MD; Location: [facility]; Service: General; Laterality: N/A; COLONOSCOPY HERNIA REPAIR Current Problems Admission Diagnosis: Pancreatitis [K85.90] Pancreatitis, acute [K85.90] Problem List: Acute pancreatitis Vasovagal syncope HTN (hypertension) Mixed hyperlipidemia COPD (chronic obstructive pulmonary disease) Former tobacco use History of prostate cancer BPH with obstruction/lower urinary tract symptoms Respiratory insufficiency Shock Applicable Nutrition Hx (08/28) s/p lap CCY w/ intraoperative cholangiography (08/30) extubated Trophic EN initiated (08/31) s/p FEES - puree, nectar thick liquids, (PO diet at discretion of surgeon only) (09/01) mechanical ground textures, nectar thick liquids, ice chips between meals after oral care, with supervision (09/02) MBS mechanical ground textures, no mixed consistencies, honey thick liquids (09/05) MBS - soft to chew textures, chopped, thin liquids Anthropometrics Height: 172.7 cm (67.99 ) Weight: 96.2 kg (212 lb 1.3 oz) (09/02/25 1809) Weight Method: Bed scale BMI (Calculated): 32.3 Trending Weight Changes 08/30/25: No significant changes Weight History Wt Readings from Last 10 Encounters: 09/02/25 1809 96.2 kg (212 lb 1.3 oz) 09/02/25 0445 96.2 kg (212 lb) 09/01/25 0516 95.4 kg (210 lb 4.8 oz) 08/31/25 0600 94.2 kg (207 lb 10.8 oz) 08/27/25 2100 93.4 kg (206 lb) Labs Results from last 7 days Lab Units 09/05/25 0435 09/04/25 1730 09/04/25 0518 09/03/25 1357 09/03/25 0343 09/02/25 1543 09/02/25 1436 09/02/25 0543 09/01/25 1705 09/01/25 0401 08/31/25 0338 08/30/25 0403 08/29/25 1618 08/29/25 1316 SODIUM mmol/L 146* -- 145 -- 149* -- -- 148* -- 148* 151* < > -- -- POTASSIUM mmol/L 4.0 4.3 3.5 < > 3.5 -- -- 3.7 4.0 3.6 3.2* < > -- -- GLUCOSE mg/dL 110* -- 122* -- 108* -- -- 99 -- 108* 114* < > -- -- BUN mg/dL 18.5 -- 21.0 -- 23.0 -- -- 22.7 -- 27.2* 29.3* < > -- -- CREATININE mg/dL 0.72* -- 0.71* -- 0.76 -- -- 0.69* -- 0.75* 0.77 < > -- -- CALCIUM mg/dL 7.7* -- 7.9* -- 7.8* -- -- 8.2* -- 7.7* 7.8* < > -- -- PHOSPHORUS mg/dL -- -- 2.4* -- -- -- -- 2.5 2.1* 2.0* 1.7* < > -- -- MAGNESIUM mg/dL 2.4 -- 2.3 -- 2.2 -- -- 2.4 -- 2.5* 2.6* < > -- -- ALBUMIN g/dL -- -- -- -- -- -- -- 3.1* -- 3.0* 3.0* < > -- -- LACTATE mmol/L -- -- -- -- -- 1.5 -- -- -- -- -- -- 2.3* 2.9* BILIRUBIN mg/dL -- -- -- -- -- -- -- 0.8 -- 0.6 0.6 < > -- -- ALK PHOS U/L -- -- -- -- -- -- -- 171* -- 108 107 < > -- -- AST (SGOT) U/L -- -- -- -- -- -- -- 42* -- 38 71* < > -- -- ALT (SGPT) U/L -- -- -- -- -- -- -- 81* -- 98* 144* < > -- -- PROBNP pg/mL -- -- -- -- -- -- 9,267.0* -- -- -- -- -- -- -- < > = values in this interval not displayed. Results from last 7 days Lab Units 09/05/25 0435 09/04/25 0518 09/03/25 1357 PLATELETS 10*3/mm3 191 162 140 HEMOGLOBIN g/dL 9.1* 9.5* 9.3* HEMATOCRIT % 29.2* 30.9* 30.4* No results found for: HGBA1C Medications Scheduled Medications arformoterol, 15 mcg, Nebulization, BID - RT budesonide, 0.5 mg, Nebulization, BID - RT heparin (porcine), 5,000 Units, Subcutaneous, Q8H lisinopril, 40 mg, Oral, Q24H montelukast, 10 mg, Oral, Nightly pantoprazole, 40 mg, Oral, Q AM senna-docusate sodium, 2 tablet, Oral, BID sodium chloride, 10 mL, Intravenous, Q12H terazosin, 5 mg, Oral, Nightly Infusions PRN Medications [DISCONTINUED] acetaminophen OR acetaminophen OR [DISCONTINUED] acetaminophen senna-docusate sodium AND polyethylene glycol AND [DISCONTINUED] bisacodyl AND bisacodyl Calcium Replacement - Follow Nurse / BPA Driven Protocol dextrose glucagon (human recombinant) hydrALAZINE HYDROmorphone hydrOXYzine ipratropium-albuterol Magnesium Standard Dose Replacement - Follow Nurse / BPA Driven Protocol melatonin naloxone nitroglycerin [DISCONTINUED] ondansetron ODT OR ondansetron Phosphorus Replacement - Follow Nurse / BPA Driven Protocol Potassium Replacement - Follow Nurse / BPA Driven Protocol sodium chloride Physical Findings Chewing/Swallowing PSYCH TECH following and Dysphagia Dentition Mouth/Teeth WDL: .WDL except, teeth Teeth Symptoms: tooth/teeth missing Skin surgical incision Bowel function Last Bowel Movement: 09/03/25 (09/05/25 08) Stool Consistency: watery (09/02/25 0500) Edema Edema: foot, left, foot, right (09/05/25 08) Generalized Edema: 2+ (Mild) (09/05/25 08) Scrotum Edema: 2+ (Mild) (09/05/25 08) Ankle, Left Edema: 2+ (Mild) (09/05/25 08) Ankle, Right Edema: 2+ (Mild) (09/05/25 08) Foot, Left Edema: 2+ (Mild) (09/05/25 08) Foot, Right Edema: 2+ (Mild) (09/05/25 08) Intake & Output (last 3 days) 09/02 0701 09/03 0700 09/03 0701 09/04 0700 09/04 0701 09/05 0700 09/05 0701 09/06 0700 P.O. 240 240 840 Other NG/GT Total Intake(mL/kg) 240 (2.5) 240 (2.5) 840 (8.7) Urine (mL/kg/hr) 1700 (0.7) 400 (0.2) 450 (0.2) Drains Stool 200 Total Output 1700 400 650 Net -1460 -160 +190 Nutrition Focused Physical Exam 08/30/25: NFPE not completed r/t pt unable to consent at this time Current Nutrition Orders & Evaluation of Intake Oral Nutrition Food Allergies/Intolerances NKFA Current PO Diet Diet: Regular/House, Cardiac; Healthy Heart (2-3 Na+); Texture: Soft to Chew (NDD 3); Soft to Chew: Chopped Meat; Fluid Consistency: Thin (IDDSI 0) Oral Nutrition Supplement Magic Cup BID Trending % PO Intake 08/30/25: NPO 09/02/25: insuff data 09/05/25: 3 Days 50% x 2 meals Assessment & Plan Nutrition Diagnosis and Goals Nutrition Diagnosis 1 Inadequate Oral Intake r/t dysphagia AEB modified texture diet + thickened liquids Diet texture advanced today, will monitor po w/ soft to chew textures and thin liquids Nutrition Diagnosis 2 None Goal(s) Increase PO Intake and Accepts Oral Nutrition Supplement Nutrition Intervention and Prescription Intervention Continue to monitor for plan of care and Continue with current interventions Diet Plan Cardiac - Soft to Chew, Chopped Meat, thin liquids Continue current diet Supplement Plan Provide Magic Cup BID Education Provided N/A Monitoring/Evaluation Monitor/Evaluation Per Protocol, I&O, PO Intake, Oral Nutrition Supplement Intake, Pertinent Labs, Symptoms, POC/GOC, and Swallow Function RD Follow-Up Encounter 3-5 days and prn Electronically signed by: Qiana Mcnair RD 09/05/25 12:27 EST * Hermes Jaramillo MD - 09/05/2025 6:27 AM EST Patient Name: Loc Thurman Date of : 1940 [id number] Surgery Progress Note Date of visit: 09/05/2025 Subjective Subjective: Feeling better. Tolerating PO, having BM's. Some drainage from old VARGAS site, now resolved. Objective Objective: BP 143/67 (BP Location: Left arm, Patient Position: Lying) Pulse 80 Temp 97.9 ??F (36.6 ??C) (Oral) Resp 18 Ht 172.7 cm (67.99 ) Wt 96.2 kg (212 lb 1.3 oz) SpO2 96% BMI 32.25 kg/m?? Intake/Output Summary (Last 24 hours) at 09/05/2025 0627 Last data filed at 09/05/2025 0015 Gross per 24 hour Intake 840 ml Output 650 ml Net 190 ml CV: Rhythm regular and rate regular L: Clear to auscultation bilaterally Abd: Bowel sounds positive , soft, incisions c/d/I. Hernia reducible Ext: No cyanosis, clubbing, edema Recent labs that are back at this time have been reviewed. Assessment/ Plan: Problem List Items Addressed This Visit Gastrointestinal Abdominal * (Principal) Acute pancreatitis - Primary- Resolved. Awaiting placement. OK to go to rehab from [facility]. RTC with me in 4 weeks. Relevant Medications omeprazole (priLOSEC) 20 MG capsule ondansetron (ZOFRAN) injection 4 mg docusate sodium (COLACE) 100 MG capsule sennosides-docusate (PERICOLACE) 8.6-50 MG per tablet 2 tablet polyethylene glycol (MIRALAX) packet 17 g bisacodyl (DULCOLAX) suppository 10 mg pantoprazole (PROTONIX) EC tablet 40 mg Other Relevant Orders Insert Central Line At Bedside (Completed) Insert Arterial Line (Completed) Other Visit Diagnoses Cholecystitis Relevant Medications sodium chloride 0.9 % bolus 1,000 mL (Completed) piperacillin-tazobactam (ZOSYN) 3.375 g IVPB in 100 mL NS MBP (CD) (Completed) omeprazole (priLOSEC) 20 MG capsule piperacillin-tazobactam (ZOSYN) 4.5 g IVPB in 100 mL NS MBP (CD) (Completed) ondansetron (ZOFRAN) injection 4 mg docusate sodium (COLACE) 100 MG capsule sennosides-docusate (PERICOLACE) 8.6-50 MG per tablet 2 tablet polyethylene glycol (MIRALAX) packet 17 g bisacodyl (DULCOLAX) suppository 10 mg pantoprazole (PROTONIX) EC tablet 40 mg Other Relevant Orders Tissue Pathology Exam (Completed) Oropharyngeal dysphagia Relevant Medications sodium chloride 0.9 % bolus 1,000 mL (Completed) sodium chloride 0.9 % flush 10 mL sodium chloride 0.9 % flush 10 mL Potassium Replacement - Follow Nurse / BPA Driven Protocol Magnesium Standard Dose Replacement - Follow Nurse / BPA Driven Protocol Phosphorus Replacement - Follow Nurse / BPA Driven Protocol Calcium Replacement - Follow Nurse / BPA Driven Protocol piperacillin-tazobactam (ZOSYN) 3.375 g IVPB in 100 mL NS MBP (CD) (Completed) omeprazole (priLOSEC) 20 MG capsule calcium gluconate 1000 Mg/50ml 0.675% NaCl IV SOLN (Completed) vitamin B-12 (CYANOCOBALAMIN) 1000 MCG tablet vitamin C (ASCORBIC ACID) 250 MG tablet sodium bicarbonate injection 8.4% 100 mEq (Completed) lactated ringers bolus 1,000 mL (Completed) sodium bicarbonate injection 8.4% 100 mEq (Completed) magnesium sulfate 2g/50 mL (PREMIX) infusion (Completed) piperacillin-tazobactam (ZOSYN) 4.5 g IVPB in 100 mL NS MBP (CD) (Completed) ondansetron (ZOFRAN) injection 4 mg ferrous sulfate 325 (65 FE) MG tablet potassium phosphate 15 mmol in 0.9% normal saline 250 mL IVPB (Completed) potassium chloride (KLOR-CON) packet 40 mEq (Completed) potassium chloride (KLOR-CON) packet 40 mEq (Completed) sennosides-docusate (PERICOLACE) 8.6-50 MG per tablet 2 tablet bisacodyl (DULCOLAX) suppository 10 mg potassium chloride (KLOR-CON) packet 40 mEq (Completed) pantoprazole (PROTONIX) EC tablet 40 mg potassium chloride (KLOR-CON) packet 40 mEq (Completed) Active Hospital Problems Diagnosis POA Acute pancreatitis [K85.90] Yes Respiratory insufficiency [R06.89] Yes Shock [R57.9] Unknown Vasovagal syncope [R55] Yes HTN (hypertension) [I10] Yes Mixed hyperlipidemia [E78.2] Yes COPD (chronic obstructive pulmonary disease) [J44.9] Yes Former tobacco use [Z87.891] Not Applicable History of prostate cancer [Z85.46] Not Applicable BPH with obstruction/lower urinary tract symptoms [N40.1, 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 Hermes Jaramillo MD 09/05/2025 06:27 EST * Flora Baig MD - 09/04/2025 12:43 PM EST Images from the original note were not included. [facility] PROGRESS NOTE Patient Name: Loc Thurman : 1940 Date of Admission: 08/27/2025 Primary Care Physician: Lisa Arreola APRN Subjective Subjective CC: Abd pain HPI: Patient for better this morning. He was not SOA overnight. He has been working hard on his swallowing exercises. Objective Objective Vital Signs: Temp: [98 ??F (36.7 ??C)-98.4 ??F (36.9 ??C)] 98.4 ??F (36.9 ??C) Heart Rate: [74-85] 82 Resp: [16-18] 18 BP: (132-152)/(64-75) 149/64 Flow (L/min) (Oxygen Therapy): [2] 2 Physical Exam Constitutional: General: He is not in acute distress. Cardiovascular: Rate and Rhythm: Normal rate and regular rhythm. Heart sounds: Normal heart sounds. Pulmonary: Effort: Pulmonary effort is normal. Breath sounds: No wheezing. Abdominal: General: There is no distension. Palpations: Abdomen is soft. Tenderness: There is no abdominal tenderness. Musculoskeletal: Right lower leg: No edema. Left lower leg: No edema. Neurological: General: No focal deficit present. Mental Status: He is alert. Results Reviewed: LAB RESULTS: Lab 09/04/25 0518 09/03/25 1357 09/02/25 1543 09/02/25 1436 09/02/25 0543 08/31/25 0338 08/30/25 0403 08/29/25 1618 08/29/25 1316 08/29/25 0942 08/29/25 0607 WBC 12.52* 10.70 -- 11.09* 10.84* 13.14* < > -- -- -- 15.08* HEMOGLOBIN 9.5* 9.3* -- 9.8* 9.6* 9.4* < > -- -- -- 8.5* HEMATOCRIT 30.9* 30.4* -- 31.2* 30.8* 29.2* < > -- -- -- 26.8* PLATELETS 162 140 -- 102* 94* 102* < > -- -- -- 95* NEUTROS ABS -- 7.29* -- 9.65* -- 11.30* -- -- -- -- -- IMMATURE GRANS (ABS) -- 0.49* -- -- -- -- -- -- -- -- -- LYMPHS ABS -- 1.94 -- -- -- -- -- -- -- -- -- MONOS ABS -- 0.81 -- -- -- -- -- -- -- -- -- EOS ABS -- 0.14 -- 0.00 -- 0.26 -- -- -- -- -- MCV 94.5 95.3 -- 93.4 95.7 93.6 < > -- -- -- 92.4 PROCALCITONIN -- -- -- 4.27* -- 15.80* -- -- -- -- -- LACTATE -- -- 1.5 -- -- -- -- 2.3* 2.9* 3.7* 4.5* < > = values in this interval not displayed. Lab 09/04/25 0518 09/03/25 1357 09/03/25 0343 09/02/25 0543 09/01/25 1705 09/01/25 0401 08/31/25 0338 SODIUM 145 -- 149* 148* -- 148* 151* POTASSIUM 3.5 4.4 3.5 3.7 4.0 3.6 3.2* CHLORIDE 113* -- 114* 116* -- 113* 114* CO2 25.0 -- 23.6 22.5 -- 26.8 28.2 ANION GAP 7.0 -- 11.4 9.5 -- 8.2 8.8 BUN 21.0 -- 23.0 22.7 -- 27.2* 29.3* CREATININE 0.71* -- 0.76 0.69* -- 0.75* 0.77 EGFR 89.4 -- 87.5 90.1 -- 87.9 87.2 GLUCOSE 122* -- 108* 99 -- 108* 114* CALCIUM 7.9* -- 7.8* 8.2* -- 7.7* 7.8* MAGNESIUM 2.3 -- 2.2 2.4 -- 2.5* 2.6* PHOSPHORUS 2.4* -- -- 2.5 2.1* 2.0* 1.7* Lab 09/02/25 0543 09/01/25 0401 08/31/25 0338 08/30/25 0403 TOTAL PROTEIN 5.5* 5.0* 5.1* 5.0* ALBUMIN 3.1* 3.0* 3.0* 2.9* GLOBULIN 2.4 -- 2.1 2.1 ALT (SGPT) 81* 98* 144* 199* AST (SGOT) 42* 38 71* 144* BILIRUBIN 0.8 0.6 0.6 0.7 INDIRECT BILIRUBIN -- 0.1 -- -- BILIRUBIN DIRECT -- 0.5* -- -- ALK PHOS 171* 108 107 93 LIPASE -- -- 110* 137* Lab 09/02/25 1436 PROBNP 9,267.0* Lab 08/29/25 1710 08/29/25 0351 08/28/252003 PH, ARTERIAL 7.490* 7.407 7.408 PCO2, ARTERIAL 31.6* 36.8 37.6 PO2 ART 145.0* 144.0* 157.0* FIO2 40 45 45 HCO3 ART 24.0 23.1 23.7 BASE EXCESS ART 0.8 -1.4* -0.8* CARBOXYHEMOGLOBIN 1.1 1.1 1.1 Brief Urine Lab Results None Microbiology Results Abnormal None No radiology results from the last 24 hrs Results for orders placed during the hospital encounter of 08/27/25 Adult Transthoracic Echo Complete W/ Cont if Necessary Per Protocol 09/03/2025 9:24 AM Interpretation Summary Left ventricular systolic function is normal. Calculated left ventricular EF = 67.2% Left ventricular ejection fraction appears to be 66 - 70%. Left ventricular wall thickness is consistent with mild concentric hypertrophy. Left ventricular diastolic function is consistent with (grade I) impaired relaxation. There is moderate calcification of the aortic valve. Estimated right ventricular systolic pressure from tricuspid regurgitation is mildly elevated (35-45 mmHg). Calculated right ventricular systolic pressure from tricuspid regurgitation is 35 mmHg. There is a trivial pericardial effusion. I have personally reviewed the therapy plans: [] PT/OT/ ST Therapy Plans Current medications: Scheduled Meds:arformoterol, 15 mcg, Nebulization, BID - RT budesonide, 0.5 mg, Nebulization, BID - RT heparin (porcine), 5,000 Units, Subcutaneous, Q8H lisinopril, 40 mg, Oral, Q24H montelukast, 10 mg, Oral, Nightly pantoprazole, 40 mg, Oral, Q AM potassium chloride, 40 mEq, Oral, Q4H senna-docusate sodium, 2 tablet, Oral, BID sodium chloride, 10 mL, Intravenous, Q12H terazosin, 5 mg, Oral, Nightly Continuous Infusions: PRN Meds:. [DISCONTINUED] acetaminophen OR acetaminophen OR [DISCONTINUED] acetaminophen senna-docusate sodium AND polyethylene glycol AND [DISCONTINUED] bisacodyl AND bisacodyl Calcium Replacement - Follow Nurse / BPA Driven Protocol dextrose glucagon (human recombinant) hydrALAZINE HYDROmorphone hydrOXYzine ipratropium-albuterol Magnesium Standard Dose Replacement - Follow Nurse / BPA Driven Protocol melatonin naloxone nitroglycerin [DISCONTINUED] ondansetron ODT OR ondansetron Phosphorus Replacement - Follow Nurse / BPA Driven Protocol Potassium Replacement - Follow Nurse / BPA Driven Protocol sodium chloride Assessment & Plan Assessment & Plan Active Hospital Problems Diagnosis POA Acute pancreatitis [K85.90] Yes Respiratory insufficiency [R06.89] Yes Shock [R57.9] Unknown Vasovagal syncope [R55] Yes HTN (hypertension) [I10] Yes Mixed hyperlipidemia [E78.2] Yes COPD (chronic obstructive pulmonary disease) [J44.9] Yes Former tobacco use [Z87.891] Not Applicable History of prostate cancer [Z85.46] Not Applicable BPH with obstruction/lower urinary tract symptoms [N40.1, 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 Brief Hospital Course to date: Loc Thurman is a 84 y.o. male with COPD, hypertension, hyperlipidemia, high- grade prostate cancerstatus post external beam radiation and hormone therapy and tobacco use who presented for pancreatitis and cholecystitis. He initially was admitted to the floor however decompensated and required IV pressors and was therefore transferred to the ICU. He underwent cholecystectomy with Dr. Jaramillo on 08/28 with drain placement. He was extubated on 08/29. Hospital course complicated by shock/SIRS due toacute pancreatitis as well as CARMITA. Patient has had an NG tube in place with tube feeds running. He was transferred to the floor on 09/01. Respiratory distress-resolved - noted with labored breathing with retractions 09/02, concern for aspiration vs volume overload - BNP elevated - Procal improved - Lactic acid within normal limits - Continue nebs - CXR increased bibasilar airspace opacities, which may be due to atelectasis, pulmonary edema or possible pneumonia, favor pulmonary edema and atelectasis - ECHO showing normal EF with grade 1 diastolic dysfunction - Symptoms improved but still having some orthopnea and required oxygen overnight - s/p IV lasix x 2 days with improvement in his symptoms. Pt on RA today, no longer wheezing Acute cholecystitis status post CCY Acute pancreatitis -improving Shock/SIRS-improved - Went to the OR with Dr. Jaramillo on 08/28 for CCY, he is following -Path shows chronic cholecystitis with reactive changes -Blood cultures no growth to date - Patient reports pain overall improved, he is tolerating a modified diet. - s/p VARGAS Drain removal 09/01 - s/p zosyn Dysphagia - S/p NG with Keofeed and tube feeding discontinued 09/01. - speech following, planning to reevaluate Friday - modified diet - pt doing his exercises Hypernatremia- resolved - Will continue close monitoring Hypophosphatemia - Replace per protocol Syncope - Patient had syncopal episode on the way to the hospital, was found to have low blood pressure - Likely secondary to sepsis/acute illness - Blood pressures have been stable, home medications have been restarted - Monitor for return of symptoms COPD L sided lung nodule -Not currently in acute exacerbation - pt son reports that prior to his pancreatitis he had a lung nodule biopsy done. The provider called this week and said the biopsy did not look good and that they needed to follow up after his hospitalization for the next steps. Pt and family are unsure what exactly the biopsy showed. Procedure was done at [facility], will try and get records Friday. Discussed that pt needed to get well from his hospitalization prior to considering any sort of treatment for possible malignancy - Continue home inhalers Hypertension - Patient's lisinopril restarted, increased to 40 in the ICU - Continue close monitoring Hyperlipidemia - Continue statin High-grade prostate cancer - status post external beam radiation and hormone therapy 2014 - Continue terazosin Expected Discharge Location and Transportation: Inpatient rehab Expected Discharge Expected Discharge Date: 09/06/2025; Expected Discharge Time: VTE Prophylaxis: Pharmacologic & mechanical VTE prophylaxis orders are present. AM-PAC 6 Clicks Score (PT): 18 (09/04/25 0821) CODE STATUS: Code Status and Medical Interventions: CPR (Attempt to Resuscitate); Full Support Ordered at: 08/27/252004 Code Status (Patient has no pulse and is not breathing): CPR (Attempt to Resuscitate) Medical Interventions (Patient has pulse or is breathing): Full Support Level Of Support Discussed With: Patient Flora Baig MD 09/04/25 * Flora Baig MD - 09/03/2025 1:05 PM EST Images from the original note were not included. [facility] PROGRESS NOTE Patient Name: Loc Thurman : 1940 Date of Admission: 08/27/2025 Primary Care Physician: Lisa Arreola APRN Subjective Subjective CC: Abd pain HPI: Patient for better this morning. He reports he was short of breath overnight when lying down flat. Also having some more wheezing today. He has been working hard on his swallowing exercises. Objective Objective Vital Signs: Temp: [98 ??F (36.7 ??C)-98.7 ??F (37.1 ??C)] 98.5 ??F (36.9 ??C) Heart Rate: [88-106] 94 Resp: [18-23] 18 BP: (146-157)/(62-82) 154/68 Flow (L/min) (Oxygen Therapy): [2] 2 Physical Exam Constitutional: General: He is not in acute distress. Cardiovascular: Rate and Rhythm: Normal rate and regular rhythm. Heart sounds: Normal heart sounds. Pulmonary: Effort: Pulmonary effort is normal. Breath sounds: Wheezing present. Abdominal: General: There is no distension. Palpations: Abdomen is soft. Tenderness: There is no abdominal tenderness. Musculoskeletal: Right lower leg: No edema. Left lower leg: No edema. Neurological: General: No focal deficit present. Mental Status: He is alert. Results Reviewed: LAB RESULTS: Lab 09/02/25 1543 09/02/25 1436 09/02/25 0543 08/31/25 0338 08/30/25 0403 08/29/25 1618 08/29/25 1316 08/29/25 0942 08/29/25 0607 08/28/25 1918 08/28/25 0955 08/28/25 0843 08/28/25 0613 08/28/25 0135 08/27/25 2234 08/27/25 1943 WBC -- 11.09* 10.84* 13.14* 12.35* -- -- -- 15.08* -- 29.95* 29.84* -- 42.13* -- -- 15.69* HEMOGLOBIN -- 9.8* 9.6* 9.4* 8.3* -- -- -- 8.5* -- 7.2* 8.3* -- 9.2* -- -- 11.1* HEMOGLOBIN, POC -- -- -- -- -- -- -- -- -- -- -- < > -- -- -- -- HEMATOCRIT -- 31.2* 30.8* 29.2* 26.5* -- -- -- 26.8* -- 23.2* 26.9* -- 28.9* -- -- 34.2* HEMATOCRIT POC -- -- -- -- -- -- -- -- -- -- -- < > -- -- -- -- PLATELETS -- 102* 94* 102* 96* -- -- -- 95* -- 137* 136* -- 183 -- -- 171 NEUTROS ABS -- 9.65* -- 11.30* -- -- -- -- -- -- 26.36* -- 38.34* -- -- 14.59* IMMATURE GRANS (ABS) -- -- -- -- -- -- -- -- -- -- -- -- -- -- -- 0.15* LYMPHS ABS -- -- -- -- -- -- -- -- -- -- -- -- -- -- -- 0.43* MONOS ABS -- -- -- -- -- -- -- -- -- -- -- -- -- -- -- 0.49 EOS ABS -- 0.00 -- 0.26 -- -- -- -- -- -- 0.00 -- 0.00 -- -- 0.00 MCV -- 93.4 95.7 93.6 93.6 -- -- -- 92.4 -- 99.6* 95.4 -- 94.8 -- -- 93.4 PROCALCITONIN -- 4.27* -- 15.80* -- -- -- -- -- -- -- -- -- -- -- 68.30* LACTATE 1.5 -- -- -- -- 2.3* 2.9* 3.7* 4.5* < > 10.4* -- 11.6* < > 7.6* 7.2* PROTIME -- -- -- -- -- -- -- -- -- -- -- -- 18.2* -- -- -- HSTROP T -- -- -- -- -- -- -- -- -- -- -- -- -- -- 34* 39* < > = values in this interval not displayed. Lab 09/03/25 0343 09/02/25 0543 09/01/25 1705 09/01/25 0401 08/31/25 0338 08/30/25 0403 SODIUM 149* 148* -- 148* 151* 148* POTASSIUM 3.5 3.7 4.0 3.6 3.2* 3.5 CHLORIDE 114* 116* -- 113* 114* 109* CO2 23.6 22.5 -- 26.8 28.2 30.9* ANION GAP 11.4 9.5 -- 8.2 8.8 8.1 BUN 23.0 22.7 -- 27.2* 29.3* 35.1* CREATININE 0.76 0.69* -- 0.75* 0.77 1.16 EGFR 87.5 90.1 -- 87.9 87.2 61.3 GLUCOSE 108* 99 -- 108* 114* 98 CALCIUM 7.8* 8.2* -- 7.7* 7.8* 7.9* MAGNESIUM 2.2 2.4 -- 2.5* 2.6* 2.7* PHOSPHORUS -- 2.5 2.1* 2.0* 1.7* 2.5 Lab 09/02/25 0543 09/01/25 0401 08/31/25 0338 08/30/25 0403 08/28/25 0955 08/28/25 0613 08/27/251942 TOTAL PROTEIN 5.5* 5.0* 5.1* 5.0* 5.2* 4.6* 5.4* ALBUMIN 3.1* 3.0* 3.0* 2.9* 3.5 2.9* 3.4* GLOBULIN 2.4 -- 2.1 2.1 -- 1.7 2.0 ALT (SGPT) 81* 98* 144* 199* 234* 235* 275* AST (SGOT) 42* 38 71* 144* 259* 272* 456* BILIRUBIN 0.8 0.6 0.6 0.7 0.8 0.7 1.0 INDIRECT BILIRUBIN -- 0.1 -- -- 0.2 -- -- BILIRUBIN DIRECT -- 0.5* -- -- 0.6* -- -- ALK PHOS 171* 108 107 93 71 101 106 LIPASE -- -- 110* 137* -- 80* 576* Lab 09/02/25 1436 08/28/25 0608/27/254 08/27/251942 PROBNP 9,267.0* -- -- -- HSTROP T -- -- 34* 39* PROTIME -- 18.2* -- -- INR -- 1.41* -- -- Lab 08/28/25 0638 08/28/25 0613 08/27/251942 IRON -- -- 86 IRON SATURATION (TSAT) -- -- 28 TIBC -- -- 311 TRANSFERRIN -- -- 209 FERRITIN -- -- 160.00 ABO TYPING A < > -- RH TYPING Positive < > -- ANTIBODY SCREEN Negative -- -- < > = values in this interval not displayed. Lab 08/29/25 1710 08/29/25 0351 08/28/252003 PH, ARTERIAL 7.490* 7.407 7.408 PCO2, ARTERIAL 31.6* 36.8 37.6 PO2 ART 145.0* 144.0* 157.0* FIO2 40 45 45 HCO3 ART 24.0 23.1 23.7 BASE EXCESS ART 0.8 -1.4* -0.8* CARBOXYHEMOGLOBIN 1.1 1.1 1.1 Brief Urine Lab Results None Microbiology Results Abnormal None FL Video Swallow With Speech Single Contrast Result Date: 09/02/2025 FL VIDEO SWALLOW W SPEECH SINGLE-CONTRAST Date of Exam: 09/02/2025 11:05 AM EST Indication: aspiration. Comparison: None available. Technique: The speech pathologist administered food and/or liquid mixed with barium to the patient with cine/video imaging. Imaging assistance was provided to the speech pathologist and an image was saved. Fluoroscopic Time: 40 seconds Number of Images: 8 series Findings: Penetration with thin, nectar and honey thickness. There is questionable minimal aspiration with thin barium as well. Impression: Impression: Fluoroscopy provided for speech therapy evaluation of swallowing. Penetration with thin, nectar and honey thickness. There is questionable minimal aspiration with thin barium as well. Please see speech therapy report for full detail. Electronically Signed: Delbert Laughlin MD 09/02/2025 12:12 PM EST Workstation ID: [id number] XR Chest 1 View Result Date: 09/02/2025 XR CHEST 1 VW Date of Exam: 09/02/2025 11:37 AM EST Indication: Shortness of breath. Comparison: APchest x-ray 08/29/2025, 08/28/2025; CT abdomen pelvis 08/27/2025 Findings: Lower chest is not entirely included. Known left lower lobe mass seen on 08/27/2025 CT abdomen/pelvis is not well visualized. Increased bibasilar airspace opacities. No pneumothorax is seen. Cardiac silhouette remains enlarged.Endotracheal tube has been removed. Tip of the right internal jugular central venous catheter is stable. Impression: Impression: Increased bibasilar airspace opacities, which may be due to atelectasis, pulmonary edema, or possibly pneumonia. Known left lower lobe mass is not well visualized. Electronically Signed: Loraine Bryson MD 09/02/2025 12:03 PM EST Workstation ID: [id number] Results for orders placed during the hospital encounter of 08/27/25 Adult Transthoracic Echo Complete W/ Cont if Necessary Per Protocol 09/03/2025 9:24 AM Interpretation Summary Left ventricular systolic function is normal. Calculated left ventricular EF = 67.2% Left ventricular ejection fraction appears to be 66 - 70%. Left ventricular wall thickness is consistent with mild concentric hypertrophy. Left ventricular diastolic function is consistent with (grade I) impaired relaxation. There is moderate calcification of the aortic valve. Estimated right ventricular systolic pressure from tricuspid regurgitation is mildly elevated (35-45 mmHg). Calculated right ventricular systolic pressure from tricuspid regurgitation is 35 mmHg. There is a trivial pericardial effusion. I have personally reviewed the therapy plans: [] PT/OT/ ST Therapy Plans Current medications: Scheduled Meds:arformoterol, 15 mcg, Nebulization, BID - RT budesonide, 0.5 mg, Nebulization, BID - RT furosemide, 40 mg, Intravenous, Once heparin (porcine), 5,000 Units, Subcutaneous, Q8H lisinopril, 40 mg, Oral, Q24H montelukast, 10 mg, Oral, Nightly [START ON 09/04/2025] pantoprazole, 40 mg, Oral, Q AM senna-docusate sodium, 2 tablet, Oral, BID sodium chloride, 10 mL, Intravenous, Q12H terazosin, 5 mg, Oral, Nightly Continuous Infusions: PRN Meds:. [DISCONTINUED] acetaminophen OR acetaminophen OR [DISCONTINUED] acetaminophen senna-docusate sodium AND polyethylene glycol AND [DISCONTINUED] bisacodyl AND bisacodyl Calcium Replacement - Follow Nurse / BPA Driven Protocol dextrose glucagon (human recombinant) hydrALAZINE HYDROmorphone hydrOXYzine ipratropium-albuterol Magnesium Standard Dose Replacement - Follow Nurse / BPA Driven Protocol melatonin naloxone nitroglycerin [DISCONTINUED] ondansetron ODT OR ondansetron Phosphorus Replacement - Follow Nurse / BPA Driven Protocol Potassium Replacement - Follow Nurse / BPA Driven Protocol sodium chloride Assessment & Plan Assessment & Plan Active Hospital Problems Diagnosis POA Acute pancreatitis [K85.90] Yes Respiratory insufficiency [R06.89] Yes Shock [R57.9] Unknown Vasovagal syncope [R55] Yes HTN (hypertension) [I10] Yes Mixed hyperlipidemia [E78.2] Yes COPD (chronic obstructive pulmonary disease) [J44.9] Yes Former tobacco use [Z87.891] Not Applicable History of prostate cancer [Z85.46] Not Applicable BPH with obstruction/lower urinary tract symptoms [N40.1, 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 Brief Hospital Course to date: Loc Thurman is a 84 y.o. male with COPD, hypertension, hyperlipidemia, high- grade prostate cancerstatus post external beam radiation and hormone therapy and tobacco use who presented for pancreatitis and cholecystitis. He initially was admitted to the floor however decompensated and required IV pressors and was therefore transferred to the ICU. He underwent cholecystectomy with Dr. Jaramillo on 08/28 with drain placement. He was extubated on 08/29. Hospital course complicated by shock/SIRS due toacute pancreatitis as well as CARMITA. Patient has had an NG tube in place with tube feeds running. He was transferred to the floor on 09/01. Respiratory distress-resolving - noted with labored breathing with retractions 09/02, concern for aspiration vs volume overload - BNP elevated - Procal improved - Lactic acid within normal limits - Continue nebs - CXR increased bibasilar airspace opacities, which may be due to atelectasis, pulmonary edema or possible pneumonia, favor pulmonary edema and atelectasis - ECHO showing normal EF with grade 1 diastolic dysfunction - Symptoms improved but still having some orthopnea and required oxygen overnight - Will redose Lasix today, will need to keep a close eye on his sodium - Patient also with some wheezing today and cough. If no improvement with diuresis may need to consider developing COPD exacerbation Acute cholecystitis status post CCY Acute pancreatitis -improving Shock/SIRS-improved - Went to the OR with Dr. Jaramillo on 08/28 for CCY, he is following -Path shows chronic cholecystitis with reactive changes -Blood cultures no growth to date - Patient reports pain overall improved, he is tolerating a modified diet. - S/p NG with Keofeed and tube feeding discontinued 09/01. - Speech following - s/p VARGAS Drain removal 09/01 - s/p zosyn Hypernatremia - stable - Pt on a modified diet per PSYCH TECH - Will continue close monitoring Hypophosphatemia - Replace per protocol Syncope - Patient had syncopal episode on the way to the hospital, was found to have low blood pressure - Likely secondary to sepsis/acute illness - Blood pressures have been stable, home medications have been restarted - Monitor for return of symptoms COPD L sided lung nodule -Not currently in acute exacerbation but monitoring closely as above - pt son reports that prior to his pancreatitis he had a lung nodule biopsy done. The provider called this week and said the biopsy did not look good and that they needed to follow up after his hospitalization for the next steps. Pt and family are unsure what exactly the biopsy showed. Procedure was done at [facility], will try and get records. Discussed that pt needed to get well from hishospitalization prior to considering any sort of treatment for possible malignancy - Continue home inhalers Hypertension - Patient's lisinopril restarted, increased to 40 in the ICU - Continue close monitoring Hyperlipidemia - Continue statin High-grade prostate cancer - status post external beam radiation and hormone therapy 2014 - Continue terazosin Expected Discharge Location and Transportation: Inpatient rehab Expected Discharge Expected Discharge Date: 09/06/2025; Expected Discharge Time: VTE Prophylaxis: Pharmacologic & mechanical VTE prophylaxis orders are present. AM-PAC 6 Clicks Score (PT): 18 (09/03/25 0821) CODE STATUS: Code Status and Medical Interventions: CPR (Attempt to Resuscitate); Full Support Ordered at: 08/27/252004 Code Status (Patient has no pulse and is not breathing): CPR (Attempt to Resuscitate) Medical Interventions (Patient has pulse or is breathing): Full Support Level Of Support Discussed With: Patient Flora Baig MD 09/03/25 * Lizbeth Myers APRN - 09/02/2025 2:38 PM EST Images from the original note were not included. [facility] PROGRESS NOTE Patient Name: Loc Thurman : 1940 Date of Admission: 08/27/2025 Primary Care Physician: Lisa Arreola APRN Subjective Subjective CC: Abd pain HPI: Pt sitting up in bed, having more shortness of breath. Spoke with PSYCH TECH and patient's swallow study was worse than previous. Diet recommendations reviewed with patient and family. 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 ECHO dating 02/21/2023 done at [facility] showed EF 55-60% without diastolic dysfunction and without significant valvular disease or stenosis. Removed F/C and will see if he is able to void on his own. Copied text in this note has been reviewed and is accurate as of 09/02/25. Objective Objective Vital Signs: Temp: [97.8 ??F (36.6 ??C)-98.6 ??F (37 ??C)] 98.6 ??F (37 ??C) Heart Rate: [85-103] 94 Resp: [18] 18 BP: (164-184)/(77-96) 175/77 Constitutional: Awake, alert, frail appearing HENT: NCAT, mucous membranes moist Respiratory: dim in bases, labor breathing noted, O2 sat 92-93% RA Cardiovascular: RRR, no murmurs, rubs, or gallops Gastrointestinal: Positive bowel sounds, soft, nontender, nondistended Musculoskeletal: No bilateral ankle edema Psychiatric: Appropriate affect, cooperative Neurologic: Oriented x 3, strength symmetric in all extremities, Cranial Nerves grossly intact to confrontation, speech clear Skin: No rashes Results Reviewed: LAB RESULTS: Lab 09/02/25 0543 08/31/25 0338 08/30/25 0403 08/29/25 1618 08/29/25 1316 08/29/25 0942 08/29/25 0607 08/29/25 0024 08/28/25 1918 08/28/25 0955 08/28/25 0843 08/28/25 0613 08/28/25 0135 08/27/25 2234 08/27/25 1943 WBC 10.84* 13.14* 12.35* -- -- -- 15.08* -- -- 29.95* 29.84* -- 42.13* -- -- 15.69* HEMOGLOBIN 9.6* 9.4* 8.3* -- -- -- 8.5* -- -- 7.2* 8.3* -- 9.2* -- -- 11.1* HEMOGLOBIN, POC -- -- -- -- -- -- -- -- -- -- < > -- -- -- -- HEMATOCRIT 30.8* 29.2* 26.5* -- -- -- 26.8* -- -- 23.2* 26.9* -- 28.9* -- -- 34.2* HEMATOCRIT POC -- -- -- -- -- -- -- -- -- -- < > -- -- -- -- PLATELETS 94* 102* 96* -- -- -- 95* -- -- 137* 136* -- 183 -- -- 171 NEUTROS ABS -- 11.30* -- -- -- -- -- -- -- 26.36* -- 38.34* -- -- 14.59* IMMATURE GRANS (ABS) -- -- -- -- -- -- -- -- -- -- -- -- -- -- 0.15* LYMPHS ABS -- -- -- -- -- -- -- -- -- -- -- -- -- -- 0.43* MONOS ABS -- -- -- -- -- -- -- -- -- -- -- -- -- -- 0.49 EOS ABS -- 0.26 -- -- -- -- -- -- -- 0.00 -- 0.00 -- -- 0.00 MCV 95.7 93.6 93.6 -- -- -- 92.4 -- -- 99.6* 95.4 -- 94.8 -- -- 93.4 PROCALCITONIN -- 15.80* -- -- -- -- -- -- -- -- -- -- -- -- 68.30* LACTATE -- -- -- 2.3* 2.9* 3.7* 4.5* 5.1* < > 10.4* -- 11.6* < > 7.6* 7.2* PROTIME -- -- -- -- -- -- -- -- -- -- -- 18.2* -- -- -- HSTROP T -- -- -- -- -- -- -- -- -- -- -- -- -- 34* 39* < > = values in this interval not displayed. Lab 09/02/25 0543 09/01/25 1705 09/01/251 08/31/25 0338 08/30/25 0403 08/29/25 0607 SODIUM 148* -- 148* 151* 148* 146* POTASSIUM 3.7 4.0 3.6 3.2* 3.5 4.1 CHLORIDE 116* -- 113* 114* 109* 105 CO2 22.5 -- 26.8 28.2 30.9* 26.0 ANION GAP 9.5 -- 8.2 8.8 8.1 15.0 BUN 22.7 -- 27.2* 29.3* 35.1* 38.4* CREATININE 0.69* -- 0.75* 0.77 1.16 1.57* EGFR 90.1 -- 87.9 87.2 61.3 42.7* GLUCOSE 99 -- 108* 114* 98 119* CALCIUM 8.2* -- 7.7* 7.8* 7.9* 7.9* MAGNESIUM 2.4 -- 2.5* 2.6* 2.7* 2.3 PHOSPHORUS 2.5 2.1* 2.0* 1.7* 2.5 5.2* Lab 09/02/25 0543 09/01/25 0401 08/31/25 0338 08/30/25 0403 08/28/25 0955 08/28/25 0613 08/27/25 1943 TOTAL PROTEIN 5.5* 5.0* 5.1* 5.0* 5.2* 4.6* 5.4* ALBUMIN 3.1* 3.0* 3.0* 2.9* 3.5 2.9* 3.4* GLOBULIN 2.4 -- 2.1 2.1 -- 1.7 2.0 ALT (SGPT) 81* 98* 144* 199* 234* 235* 275* AST (SGOT) 42* 38 71* 144* 259* 272* 456* BILIRUBIN 0.8 0.6 0.6 0.7 0.8 0.7 1.0 INDIRECT BILIRUBIN -- 0.1 -- -- 0.2 -- -- BILIRUBIN DIRECT -- 0.5* -- -- 0.6* -- -- ALK PHOS 171* 108 107 93 71 101 106 LIPASE -- -- 110* 137* -- 80* 576* Lab 08/28/25 0613 08/27/25 2234 08/27/251942 HSTROP T -- 34* 39* PROTIME 18.2* -- -- INR 1.41* -- -- Lab 08/28/25 0638 08/28/25 0613 08/27/251942 IRON -- -- 86 IRON SATURATION (TSAT) -- -- 28 TIBC -- -- 311 TRANSFERRIN -- -- 209 FERRITIN -- -- 160.00 ABO TYPING A < > -- RH TYPING Positive < > -- ANTIBODY SCREEN Negative -- -- < > = values in this interval not displayed. Lab 08/29/25 17108/29/25 03508/28/252003 PH, ARTERIAL 7.490* 7.407 7.408 PCO2, ARTERIAL 31.6* 36.8 37.6 PO2 ART 145.0* 144.0* 157.0* FIO2 40 45 45 HCO3 ART 24.0 23.1 23.7 BASE EXCESS ART 0.8 -1.4* -0.8* CARBOXYHEMOGLOBIN 1.1 1.1 1.1 Brief Urine Lab Results None Microbiology Results Abnormal None FL Video Swallow With Speech Single Contrast Result Date: 09/02/2025 FL VIDEO SWALLOW W SPEECH SINGLE-CONTRAST Date of Exam: 09/02/2025 11:05 AM EST Indication: aspiration. Comparison: None available. Technique: The speech pathologist administered food and/or liquid mixed with barium to the patient with cine/video imaging. Imaging assistance was provided to the speech pathologist and an image was saved. Fluoroscopic Time: 40 seconds Number of Images: 8 series Findings: Penetration with thin, nectar and honey thickness. There is questionable minimal aspiration with thin barium as well. Impression: Impression: Fluoroscopy provided for speech therapy evaluation of swallowing. Penetration with thin, nectar and honey thickness. There is questionable minimal aspiration with thin barium as well. Please see speech therapy report for full detail. Electronically Signed: Delbert Laughlin MD 09/02/2025 12:12 PM EST Workstation ID: [id number] XR Chest 1 View Result Date: 09/02/2025 XR CHEST 1 VW Date of Exam: 09/02/2025 11:37 AM EST Indication: Shortness of breath. Comparison: APchest x-ray 08/29/2025, 08/28/2025; CT abdomen pelvis 08/27/2025 Findings: Lower chest is not entirely included. Known left lower lobe mass seen on 08/27/2025 CT abdomen/pelvis is not well visualized. Increased bibasilar airspace opacities. No pneumothorax is seen. Cardiac silhouette remains enlarged.Endotracheal tube has been removed. Tip of the right internal jugular central venous catheter is stable. Impression: Impression: Increased bibasilar airspace opacities, which may be due to atelectasis, pulmonary edema, or possibly pneumonia. Known left lower lobe mass is not well visualized. Electronically Signed: Loraine Bryson MD 09/02/2025 12:03 PM EST Workstation ID: [id number] I have personally reviewed the therapy plans: [] PT/OT/ ST Therapy Plans Current medications: Scheduled Meds:arformoterol, 15 mcg, Nebulization, BID - RT budesonide, 0.5 mg, Nebulization, BID - RT heparin (porcine), 5,000 Units, Subcutaneous, Q8H lisinopril, 40 mg, Oral, Q24H montelukast, 10 mg, Oral, Nightly pantoprazole, 40 mg, Intravenous, Q AM senna-docusate sodium, 2 tablet, Oral, BID sodium chloride, 10 mL, Intravenous, Q12H terazosin, 5 mg, Oral, Nightly Continuous Infusions: PRN Meds:. [DISCONTINUED] acetaminophen OR acetaminophen OR [DISCONTINUED] acetaminophen senna-docusate sodium AND polyethylene glycol AND [DISCONTINUED] bisacodyl AND bisacodyl Calcium Replacement - Follow Nurse / BPA Driven Protocol dextrose glucagon (human recombinant) hydrALAZINE HYDROmorphone hydrOXYzine ipratropium-albuterol Magnesium Standard Dose Replacement - Follow Nurse / BPA Driven Protocol melatonin naloxone nitroglycerin [DISCONTINUED] ondansetron ODT OR ondansetron Phosphorus Replacement - Follow Nurse / BPA Driven Protocol Potassium Replacement - Follow Nurse / BPA Driven Protocol sodium chloride Assessment & Plan Assessment & Plan Active Hospital Problems Diagnosis POA Acute pancreatitis [K85.90] Yes Respiratory insufficiency [R06.89] Yes Shock [R57.9] Unknown Vasovagal syncope [R55] Yes HTN (hypertension) [I10] Yes Mixed hyperlipidemia [E78.2] Yes COPD (chronic obstructive pulmonary disease) [J44.9] Yes Former tobacco use [Z87.891] Not Applicable History of prostate cancer [Z85.46] Not Applicable BPH with obstruction/lower urinary tract symptoms [N40.1, 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 Brief Hospital Course to date: Loc Thurman is a 84 y.o. male with COPD, hypertension, hyperlipidemia, high- grade prostate cancerstatus post external beam radiation and hormone therapy and tobacco use who presented for pancreatitis and cholecystitis. He initially was admitted to the floor however decompensated and required IV pressors and was therefore transferred to the ICU. He underwent cholecystectomy with Dr. Jaramillo on 08/28 with drain placement. He was extubated on 08/29. Hospital course complicated by shock/SIRS due toacute pancreatitis as well as CARMITA. Patient has had an NG tube in place with tube feeds running. He was transferred to the floor on 09/01. Respiratory distress - noted with labored breathing with retractions. - concern for aspiration vs volume overload - BNP - Procal, CBC - Lactic acid - Nebs - CXR increased bibasilar airspace opacities, which may be due to atelectasis, pulmonary edema or possible pneumonia, known LLL mass not well visualized - ECHO - Last ECHO found was 02/21/2023 done at [facility] showed EF 55-60% without diastolic dysfunction and without significant valvular disease or stenosis. Acute cholecystitis status post CCY Acute pancreatitis -improving Shock/SIRS-improved - Went to the OR with Dr. Jaramillo on 08/28 for CCY, he is following -Path shows chronic cholecystitis with reactive changes -Blood cultures no growth to date - Patient reports pain overall improved, he is tolerating a modified diet. - S/p NG with Keofeed and tube feeding discontinued 09/01. - Speech following - s/p VARGAS Drain removal 09/01 - s/p zosyn Hypernatremia -Improved to 148, likely due to tube feeds/free water deficit - Pt on a modified diet per PSYCH TECH - Will monitor for now with a.m. labs Hypophosphatemia - Replace per protocol Syncope - Patient had syncopal episode on the way to the hospital, was found to have low blood pressure - Likely secondary to sepsis/acute illness - Blood pressures have been stable, home medications have been restarted - Monitor for return of symptoms COPD -Not currently in acute exacerbation - Continue home inhalers Hypertension - Patient's lisinopril restarted, increased to 40 in the ICU - Continue close monitoring Hyperlipidemia - Continue statin High-grade prostate cancer - status post external beam radiation and hormone therapy 2014 - Continue terazosin Expected Discharge Location and Transportation: Inpatient rehab Expected Discharge Expected Discharge Date: 09/06/2025; Expected Discharge Time: VTE Prophylaxis: Pharmacologic & mechanical VTE prophylaxis orders are present. AM-PAC 6 Clicks Score (PT): 15 (09/02/25 1149) CODE STATUS: Code Status and Medical Interventions: CPR (Attempt to Resuscitate); Full Support Ordered at: 08/27/252004 Code Status (Patient has no pulse and is not breathing): CPR (Attempt to Resuscitate) Medical Interventions (Patient has pulse or is breathing): Full Support Level Of Support Discussed With: Patient Lizbeth Myers APRN 09/02/25 * Genesis Khan RD - 09/02/2025 12:52 PM EST Patient Name: Loc Thurman Date of : 1940 Admission date: 08/27/2025 Reason for Encounter: Follow-up/Progress Note [facility] Clinical Nutrition Assessment Subjective Subjective Information 09/02 NG removed yesterday. Patient out of room at time of visit, son at bedside. Son reports patient does not like modified diet but trying to take some bites of items. Unsure if Magic Cups have been tried, but agreeable to continue. Son states patient is out of room for swallow study. Discussed possible adjustment of ONS depending on results of swallow study. 08/31 Pt passed FEES this morning for pureed/NTL; however per RN, pt with difficulty swallowing pill withliquids after diet advance. ? Hypersensitivity to NG tube. TF initiated yesterday - Tolerating without difficulty. Noted electrolyte abnormalities (? Refeeding syndrome), hypernatremia (151), hypokalemia 3.2, hypophosphatemia 1.7. All replaced per protocol. 08/30 Pt identified as NPO/Clear Liquid Diet >/= 72 hrs. POD#3 s/p CCY. Extubated however unable to have diet advanced per RN. ? FEES tomorrow. Objective H&P and Current Problems H&P Past Medical History: Diagnosis Date Cancer COPD (chronic obstructive pulmonary disease) Hyperlipidemia Hypertension Past Surgical History: Procedure Laterality Date APPENDECTOMY CHOLECYSTECTOMY WITH INTRAOPERATIVE CHOLANGIOGRAM N/A 08/28/2025 Procedure: CHOLECYSTECTOMY LAPAROSCOPIC INTRAOPERATIVE CHOLANGIOGRAM; Surgeon: Hermes Jaramillo MD; Location: [facility]; Service: General; Laterality: N/A; COLONOSCOPY HERNIA REPAIR Current Problems Admission Diagnosis: Pancreatitis [K85.90] Pancreatitis, acute [K85.90] Problem List: Acute pancreatitis Vasovagal syncope HTN (hypertension) Mixed hyperlipidemia COPD (chronic obstructive pulmonary disease) Former tobacco use History of prostate cancer BPH with obstruction/lower urinary tract symptoms Respiratory insufficiency Shock Applicable Nutrition Hx (08/28) s/p lap CCY w/ intraoperative cholangiography (08/30) extubated Trophic EN initiated (08/31) s/p FEES - puree, nectar thick liquids, (PO diet at discretion of surgeon only) (09/01) mechanical ground textures, nectar thick liquids, ice chips between meals after oral care, with supervision (09/02) MBS mechanical ground textures, no mixed consistencies, honey thick liquids Anthropometrics Height: 172.7 cm (67.99 ) Weight: 96.2 kg (212 lb) (09/02/25 0445) Weight Method: Bed scale BMI (Calculated): 32.2 Trending Weight Changes 08/30/25: No significant changes Weight History Wt Readings from Last 10 Encounters: 09/02/25 0445 96.2 kg (212 lb) 09/01/25 0516 95.4 kg (210 lb 4.8 oz) 08/31/25 0600 94.2 kg (207 lb 10.8 oz) 08/27/25 2100 93.4 kg (206 lb) Labs Results from last 7 days Lab Units 09/02/25 0543 09/01/25 1705 09/01/25 04008/31/2533708/30/2540208/29/25 1618 08/29/25 1316 08/29/25 0942 SODIUM mmol/L 148* -- 148* 151* < > -- -- -- POTASSIUM mmol/L 3.7 4.0 3.6 3.2* < > -- -- -- GLUCOSE mg/dL 99 -- 108* 114* < > -- -- -- BUN mg/dL 22.7 -- 27.2* 29.3* < > -- -- -- CREATININE mg/dL 0.69* -- 0.75* 0.77 < > -- -- -- CALCIUM mg/dL 8.2* -- 7.7* 7.8* < > -- -- -- PHOSPHORUS mg/dL 2.5 2.1* 2.0* 1.7* < > -- -- -- MAGNESIUM mg/dL 2.4 -- 2.5* 2.6* < > -- -- -- ALBUMIN g/dL 3.1* -- 3.0* 3.0* < > -- -- -- LACTATE mmol/L -- -- -- -- -- 2.3* 2.9* 3.7* BILIRUBIN mg/dL 0.8 -- 0.6 0.6 < > -- -- -- ALK PHOS U/L 171* -- 108 107 < > -- -- -- AST (SGOT) U/L 42* -- 38 71* < > -- -- -- ALT (SGPT) U/L 81* -- 98* 144* < > -- -- -- < > = values in this interval not displayed. Results from last 7 days Lab Units 09/02/2554208/31/2533708/30/2540208/28/25 0613 08/27/25 1943 PLATELETS 10*3/mm3 94* 102* 96* < > 171 HEMOGLOBIN g/dL 9.6* 9.4* 8.3* < > 11.1* HEMOGLOBIN, POC -- -- -- < > -- HEMATOCRIT % 30.8* 29.2* 26.5* < > 34.2* HEMATOCRIT POC -- -- -- < > -- IRON mcg/dL -- -- -- -- 86 < > = values in this interval not displayed. No results found for: HGBA1C Medications Scheduled Medications arformoterol, 15 mcg, Nebulization, BID - RT budesonide, 0.5 mg, Nebulization, BID - RT heparin (porcine), 5,000 Units, Subcutaneous, Q8H lisinopril, 40 mg, Oral, Q24H montelukast, 10 mg, Oral, Nightly pantoprazole, 40 mg, Intravenous, Q AM senna-docusate sodium, 2 tablet, Oral, BID sodium chloride, 10 mL, Intravenous, Q12H terazosin, 5 mg, Oral, Nightly Infusions PRN Medications [DISCONTINUED] acetaminophen OR acetaminophen OR [DISCONTINUED] acetaminophen senna-docusate sodium AND polyethylene glycol AND [DISCONTINUED] bisacodyl AND bisacodyl Calcium Replacement - Follow Nurse / BPA Driven Protocol dextrose glucagon (human recombinant) hydrALAZINE HYDROmorphone hydrOXYzine ipratropium-albuterol Magnesium Standard Dose Replacement - Follow Nurse / BPA Driven Protocol melatonin naloxone nitroglycerin [DISCONTINUED] ondansetron ODT OR ondansetron Phosphorus Replacement - Follow Nurse / BPA Driven Protocol Potassium Replacement - Follow Nurse / BPA Driven Protocol sodium chloride Physical Findings Chewing/Swallowing PSYCH TECH following Dentition Mouth/Teeth WDL: .WDL except, teeth Teeth Symptoms: tooth/teeth missing Skin surgical incision Bowel function Last Bowel Movement: 08/27/25 (08/27/25 2318) Stool Consistency: watery (09/02/25 0500) Edema Edema: foot, left, foot, right (09/01/251999) Generalized Edema: 2+ (Mild) (09/01/251999) Scrotum Edema: 2+ (Mild) (09/01/251999) Ankle, Left Edema: 2+ (Mild) (09/01/251999) Ankle, Right Edema: 2+ (Mild) (09/01/251999) Foot, Left Edema: 2+ (Mild) (09/01/251999) Foot, Right Edema: 2+ (Mild) (09/01/251999) Intake & Output (last 3 days) 08/30 0708/31 0708/31 0709/01 0709/01 0709/02 0709/02 0709/03 07 P.O. 300 I.V. (mL/kg) 95.5 (1) 334.3 (3.5) Other 177 320 700 NG/GT 342 372 287 IV Piggyback 294.1 124.8 Total Intake(mL/kg) 908.6 (9.6) 1451.1 (15.2) 987 (10.3) Urine (mL/kg/hr) 1885 (0.8) 1450 (0.6) 1800 (0.8) 800 (1.4) Emesis/NG output Drains 40 25 75 Stool 0 0 Total Output 1925 1475 1875 800 Net -1016.4 -23.9 -888 -800 Stool Unmeasured Occurrence 1 x 2 x Nutrition Focused Physical Exam 08/30/25: NFPE not completed r/t pt unable to consent at this time Current Nutrition Orders & Evaluation of Intake Oral Nutrition Food Allergies/Intolerances NKFA Current PO Diet Diet: Regular/House, Cardiac; Healthy Heart (2-3 Na+); No Mixed Consistencies, No Straw; Texture: Mechanical Ground (NDD 2); Fluid Consistency: Honey Thick Oral Nutrition Supplement Magic Cup BID Trending % PO Intake 08/30/25: NPO 09/02/25: insuff data Assessment & Plan Nutrition Diagnosis and Goals Nutrition Diagnosis 1 Inadequate Oral Intake r/t dysphagia AEB modified texture diet + thickened liquids Nutrition Diagnosis 2 None Goal(s) Establish PO Intake, Accepts Oral Nutrition Supplement, and PO Diet Advances When MedicallyAppropriate Nutrition Intervention and Prescription Intervention Start oral nutrition supplement, Continue to monitor for plan of care, and adjust flush Diet Plan Continue current PO diet as ordered Supplement Plan Provide Magic Cup BID Education Provided N/A Monitoring/Evaluation Monitor/Evaluation Per Protocol, I&O, PO Intake, Oral Nutrition Supplement Intake, Pertinent Labs, Symptoms, POC/GOC, and Swallow Function RD Follow-Up Encounter 3-5 days and prn Electronically signed by: Genesis Khan RD 09/02/25 12:52 EST * Hermes Jaramillo MD - 09/02/2025 7:14 AM EST Patient Name: Loc Thurman Date of : 1940 [id number] Surgery Progress Note Date of visit: 09/02/2025 Subjective Subjective: Stable. Tolerating PO, having BM's. Objective Objective: BP 173/88 (BP Location: Left arm, Patient Position: Lying) Pulse 85 Temp 97.8 ??F (36.6 ??C) (Oral) Resp 18 Ht 172.7 cm (67.99 ) Wt 96.2 kg (212 lb) SpO2 92% BMI 32.24 kg/m?? Intake/Output Summary (Last 24 hours) at 09/02/2025 0714 Last data filed at 09/02/2025 0400 Gross per 24 hour Intake 987 ml Output 1875 ml Net -888 ml CV: Rhythm regular and rate regular L: Mild rhonchi to auscultation bilaterally, some SOB Abd: Bowel sounds positive , soft, nontender. Incisions c/d/I. VARGAS serous, scant. Ext: No cyanosis, clubbing, edema Recent labs that are back at this time have been reviewed. Assessment/ Plan: Problem List Items Addressed This Visit Gastrointestinal Abdominal * (Principal) Acute pancreatitis - Primary- Resolving. D/C VARGAS. Consider D/C Maurer. Continue diuresis. No current surgical issues. Will revisit Friday. Relevant Medications omeprazole (priLOSEC) 20 MG capsule pantoprazole (PROTONIX) injection 40 mg piperacillin-tazobactam (ZOSYN) 4.5 g IVPB in 100 mL NS MBP (CD) (Completed) ondansetron (ZOFRAN) injection 4 mg docusate sodium (COLACE) 100 MG capsule sennosides-docusate (PERICOLACE) 8.6-50 MG per tablet 2 tablet polyethylene glycol (MIRALAX) packet 17 g bisacodyl (DULCOLAX) suppository 10 mg Other Relevant Orders Insert Central Line At Bedside (Completed) Insert Arterial Line (Completed) Other Visit Diagnoses Cholecystitis Relevant Medications sodium chloride 0.9 % bolus 1,000 mL (Completed) piperacillin-tazobactam (ZOSYN) 3.375 g IVPB in 100 mL NS MBP (CD) (Completed) omeprazole (priLOSEC) 20 MG capsule pantoprazole (PROTONIX) injection 40 mg piperacillin-tazobactam (ZOSYN) 4.5 g IVPB in 100 mL NS MBP (CD) (Completed) ondansetron (ZOFRAN) injection 4 mg docusate sodium (COLACE) 100 MG capsule sennosides-docusate (PERICOLACE) 8.6-50 MG per tablet 2 tablet polyethylene glycol (MIRALAX) packet 17 g bisacodyl (DULCOLAX) suppository 10 mg Other Relevant Orders Tissue Pathology Exam (Completed) Oropharyngeal dysphagia Relevant Medications sodium chloride 0.9 % bolus 1,000 mL (Completed) sodium chloride 0.9 % flush 10 mL sodium chloride 0.9 % flush 10 mL Potassium Replacement - Follow Nurse / BPA Driven Protocol Magnesium Standard Dose Replacement - Follow Nurse / BPA Driven Protocol Phosphorus Replacement - Follow Nurse / BPA Driven Protocol Calcium Replacement - Follow Nurse / BPA Driven Protocol piperacillin-tazobactam (ZOSYN) 3.375 g IVPB in 100 mL NS MBP (CD) (Completed) omeprazole (priLOSEC) 20 MG capsule calcium gluconate 1000 Mg/50ml 0.675% NaCl IV SOLN (Completed) vitamin B-12 (CYANOCOBALAMIN) 1000 MCG tablet vitamin C (ASCORBIC ACID) 250 MG tablet sodium bicarbonate injection 8.4% 100 mEq (Completed) lactated ringers bolus 1,000 mL (Completed) sodium bicarbonate injection 8.4% 100 mEq (Completed) magnesium sulfate 2g/50 mL (PREMIX) infusion (Completed) pantoprazole (PROTONIX) injection 40 mg piperacillin-tazobactam (ZOSYN) 4.5 g IVPB in 100 mL NS MBP (CD) (Completed) ondansetron (ZOFRAN) injection 4 mg ferrous sulfate 325 (65 FE) MG tablet potassium phosphate 15 mmol in 0.9% normal saline 250 mL IVPB (Completed) potassium chloride (KLOR-CON) packet 40 mEq (Completed) potassium chloride (KLOR-CON) packet 40 mEq (Completed) sennosides-docusate (PERICOLACE) 8.6-50 MG per tablet 2 tablet bisacodyl (DULCOLAX) suppository 10 mg Active Hospital Problems Diagnosis POA Acute pancreatitis [K85.90] Yes Respiratory insufficiency [R06.89] Yes Shock [R57.9] Unknown Vasovagal syncope [R55] Yes HTN (hypertension) [I10] Yes Mixed hyperlipidemia [E78.2] Yes COPD (chronic obstructive pulmonary disease) [J44.9] Yes Former tobacco use [Z87.891] Not Applicable History of prostate cancer [Z85.46] Not Applicable BPH with obstruction/lower urinary tract symptoms [N40.1, 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 Hermes Jaramillo MD 09/02/2025 07:14 EST * Flora Baig MD - 09/01/2025 10:36 AM EST Images from the original note were not included. [facility] PROGRESS NOTE Patient Name: Loc Thurman : 1940 Date of Admission: 08/27/2025 Primary Care Physician: Lisa Arreola APRN Subjective Subjective CC: Abd pain HPI: Pt feeling ok today. NG is uncomfortable and making it hard for him to eat. Minimal abd pain. No BPbut has had flatus. Objective Objective Vital Signs: Temp: [97.8 ??F (36.6 ??C)-99.3 ??F (37.4 ??C)] 97.8 ??F (36.6 ??C) Heart Rate: [77-92] 77 Resp: [16-20] 18 BP: (153-185)/(73-100) 162/82 Flow (L/min) (Oxygen Therapy): [2] 2 Physical Exam Constitutional: General: He is not in acute distress. Appearance: He is obese. HENT: Nose: Comments: NG in place Cardiovascular: Rate and Rhythm: Normal rate and regular rhythm. Heart sounds: Normal heart sounds. Pulmonary: Effort: Pulmonary effort is normal. Breath sounds: Normal breath sounds. Abdominal: General: There is no distension. Palpations: Abdomen is soft. Tenderness: There is no abdominal tenderness. Musculoskeletal: Right lower leg: No edema. Left lower leg: No edema. Neurological: General: No focal deficit present. Mental Status: He is alert. Mental status is at baseline. Psychiatric: Mood and Affect: Mood normal. Thought Content: Thought content normal. Results Reviewed: LAB RESULTS: Lab 08/31/25 0338 08/30/25 0403 08/29/25 1618 08/29/25 1316 08/29/25 0942 08/29/25 0607 08/29/25 0024 08/28/25 1918 08/28/25 0955 08/28/25 0843 08/28/25 0613 08/28/25 0135 08/27/25 2234 08/27/25 1943 WBC 13.14* 12.35* -- -- -- 15.08* -- -- 29.95* 29.84* -- 42.13* -- -- 15.69* HEMOGLOBIN 9.4* 8.3* -- -- -- 8.5* -- -- 7.2* 8.3* -- 9.2* -- -- 11.1* HEMOGLOBIN, POC -- -- -- -- -- -- -- -- -- 7.8* -- -- -- -- HEMATOCRIT 29.2* 26.5* -- -- -- 26.8* -- -- 23.2* 26.9* -- 28.9* -- -- 34.2* HEMATOCRIT POC -- -- -- -- -- -- -- -- -- 23* -- -- -- -- PLATELETS 102* 96* -- -- -- 95* -- -- 137* 136* -- 183 -- -- 171 NEUTROS ABS 11.30* -- -- -- -- -- -- -- 26.36* -- 38.34* -- -- 14.59* IMMATURE GRANS (ABS) -- -- -- -- -- -- -- -- -- -- -- -- -- 0.15* LYMPHS ABS -- -- -- -- -- -- -- -- -- -- -- -- -- 0.43* MONOS ABS -- -- -- -- -- -- -- -- -- -- -- -- -- 0.49 EOS ABS 0.26 -- -- -- -- -- -- -- 0.00 -- 0.00 -- -- 0.00 MCV 93.6 93.6 -- -- -- 92.4 -- -- 99.6* 95.4 -- 94.8 -- -- 93.4 PROCALCITONIN 15.80* -- -- -- -- -- -- -- -- -- -- -- -- 68.30* LACTATE -- -- 2.3* 2.9* 3.7* 4.5* 5.1* < > 10.4* -- 11.6* < > 7.6* 7.2* PROTIME -- -- -- -- -- -- -- -- -- -- 18.2* -- -- -- HSTROP T -- -- -- -- -- -- -- -- -- -- -- -- 34* 39* < > = values in this interval not displayed. Lab 09/01/25 0401 08/31/25 0338 08/30/25 0403 08/29/25 0607 08/28/25 0955 08/28/25 0613 08/28/25 0135 SODIUM 148* 151* 148* 146* 145 < > 143 POTASSIUM 3.6 3.2* 3.5 4.1 3.7 < > 3.7 CHLORIDE 113* 114* 109* 105 106 < > 106 CO2 26.8 28.2 30.9* 26.0 18.3* < > 17.9* ANION GAP 8.2 8.8 8.1 15.0 20.7* < > 19.1* BUN 27.2* 29.3* 35.1* 38.4* 31.2* < > 25.7* CREATININE 0.75* 0.77 1.16 1.57* 1.72* < > 1.85* EGFR 87.9 87.2 61.3 42.7* 38.2* < > 35.0* GLUCOSE 108* 114* 98 119* 112* < > 78 CALCIUM 7.7* 7.8* 7.9* 7.9* 9.2 < > 7.6* MAGNESIUM 2.5* 2.6* 2.7* 2.3 -- -- 1.8 PHOSPHORUS 2.0* 1.7* 2.5 5.2* -- -- -- < > = values in this interval not displayed. Lab 09/01/25 0401 08/31/25 0338 08/30/253 08/28/25 0955 08/28/2561208/27/251942 TOTAL PROTEIN 5.0* 5.1* 5.0* 5.2* 4.6* 5.4* ALBUMIN 3.0* 3.0* 2.9* 3.5 2.9* 3.4* GLOBULIN -- 2.1 2.1 -- 1.7 2.0 ALT (SGPT) 98* 144* 199* 234* 235* 275* AST (SGOT) 38 71* 144* 259* 272* 456* BILIRUBIN 0.6 0.6 0.7 0.8 0.7 1.0 INDIRECT BILIRUBIN 0.1 -- -- 0.2 -- -- BILIRUBIN DIRECT 0.5* -- -- 0.6* -- -- ALK PHOS 108 107 93 71 101 106 LIPASE -- 110* 137* -- 80* 576* Lab 08/28/25 0613 08/27/25223308/27/251942 HSTROP T -- 34* 39* PROTIME 18.2* -- -- INR 1.41* -- -- Lab 08/28/25 0638 08/28/2561208/27/251942 IRON -- -- 86 IRON SATURATION (TSAT) -- -- 28 TIBC -- -- 311 TRANSFERRIN -- -- 209 FERRITIN -- -- 160.00 ABO TYPING A < > -- RH TYPING Positive < > -- ANTIBODY SCREEN Negative -- -- < > = values in this interval not displayed. Lab 08/29/25 1710 08/29/25 0351 08/28/252003 PH, ARTERIAL 7.490* 7.407 7.408 PCO2, ARTERIAL 31.6* 36.8 37.6 PO2 ART 145.0* 144.0* 157.0* FIO2 40 45 45 HCO3 ART 24.0 23.1 23.7 BASE EXCESS ART 0.8 -1.4* -0.8* CARBOXYHEMOGLOBIN 1.1 1.1 1.1 Brief Urine Lab Results None Microbiology Results Abnormal None PSYCH TECH FEES - Fiberoptic Endo Eval Swallow Result Date: 08/31/2025 This procedure was auto-finalized with no dictation required. I have personally reviewed the therapy plans: [] PT/OT/ ST Therapy Plans Current medications: Scheduled Meds:arformoterol, 15 mcg, Nebulization, BID - RT budesonide, 0.5 mg, Nebulization, BID - RT heparin (porcine), 5,000 Units, Subcutaneous, Q8H lisinopril, 40 mg, Nasogastric, Q24H montelukast, 10 mg, Nasogastric, Nightly mupirocin, 1 Application, Each Nare, BID pantoprazole, 40 mg, Intravenous, Q AM piperacillin-tazobactam, 4.5 g, Intravenous, Q8H potassium chloride, 40 mEq, Oral, Q4H senna-docusate sodium, 2 tablet, Nasogastric, BID sodium chloride, 10 mL, Intravenous, Q12H terazosin, 5 mg, Nasogastric, Nightly Continuous Infusions: PRN Meds:. [DISCONTINUED] acetaminophen OR acetaminophen OR [DISCONTINUED] acetaminophen senna-docusate sodium AND polyethylene glycol AND [DISCONTINUED] bisacodyl AND bisacodyl Calcium Replacement - Follow Nurse / BPA Driven Protocol dextrose glucagon (human recombinant) hydrALAZINE HYDROmorphone hydrOXYzine ipratropium-albuterol Magnesium Standard Dose Replacement - Follow Nurse / BPA Driven Protocol melatonin naloxone nitroglycerin [DISCONTINUED] ondansetron ODT OR ondansetron Phosphorus Replacement - Follow Nurse / BPA Driven Protocol Potassium Replacement - Follow Nurse / BPA Driven Protocol sodium chloride Assessment & Plan Assessment & Plan Active Hospital Problems Diagnosis POA Acute pancreatitis [K85.90] Yes Respiratory insufficiency [R06.89] Yes Shock [R57.9] Unknown Vasovagal syncope [R55] Yes HTN (hypertension) [I10] Yes Mixed hyperlipidemia [E78.2] Yes COPD (chronic obstructive pulmonary disease) [J44.9] Yes Former tobacco use [Z87.891] Not Applicable History of prostate cancer [Z85.46] Not Applicable BPH with obstruction/lower urinary tract symptoms [N40.1, 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 Brief Hospital Course to date: Loc Thurman is a 84 y.o. male with COPD, hypertension, hyperlipidemia, high- grade prostate cancerstatus post external beam radiation and hormone therapy and tobacco use who presented for pancreatitis and cholecystitis. He initially was admitted to the floor however decompensated and required IV pressors and was therefore transferred to the ICU. He underwent cholecystectomy with Dr. Jaramillo on 08/28 with drain placement. He was extubated on 08/29. Hospital course complicated by shock/SIRS due toacute pancreatitis as well as CARMITA. Patient has had an NG tube in place with tube feeds running. He was transferred to the floor on 09/01. Acute cholecystitis status post CCY Acute pancreatitis -improving Shock/SIRS-improved - Went to the OR with Dr. Jaramillo on 08/28 for CCY, he is following -Path shows chronic cholecystitis with reactive changes -Blood cultures no growth to date - Patient reports pain overall improved, he is tolerating a modified diet. Still has NG in place with Keofeed and tube feeds running. Plan for possible removal of the NG today - Speech following - Drain remains in place, possible removal in the next 24 to 48 hours - Continue IV antibiotics Hypernatremia -Improved to 148, likely due to tube feeds/free water deficit - Attempting to transition patient to p.o. diet - Will monitor for now with a.m. labs Hypophosphatemia -Improved but still low - Replace per protocol Syncope - Patient had syncopal episode on the way to the hospital, was found to have low blood pressure - Likely secondary to sepsis/acute illness - Blood pressures have been stable, home medications have been restarted - Monitor for return of symptoms COPD -Not currently in acute exacerbation - Continue home inhalers Hypertension - Patient's lisinopril restarted, increased to 40 in the ICU - Continue close monitoring Hyperlipidemia - Continue statin High-grade prostate cancer - status post external beam radiation and hormone therapy 2014 - Continue terazosin Expected Discharge Location and Transportation: Inpatient rehab Expected Discharge Expected discharge date/ time has not been documented. VTE Prophylaxis: Pharmacologic & mechanical VTE prophylaxis orders are present. AM-PAC 6 Clicks Score (PT): 11 (08/31/251999) CODE STATUS: Code Status and Medical Interventions: CPR (Attempt to Resuscitate); Full Support Ordered at: 08/27/252004 Code Status (Patient has no pulse and is not breathing): CPR (Attempt to Resuscitate) Medical Interventions (Patient has pulse or is breathing): Full Support Level Of Support Discussed With: Patient Flora Baig MD 09/01/25 * Hermes Jaramillo MD - 09/01/2025 7:19 AM EST Patient Name: Loc Thurman Date of : 1940 [id number] Surgery Progress Note Date of visit: 09/01/2025 Subjective Subjective: Feeling better. Transferred to floor. Tolerating PO. Having BM's. Objective Objective: BP 156/90 (BP Location: Left arm, Patient Position: Lying) Pulse 77 Temp 98.7 ??F (37.1 ??C) (Oral) Resp 18 Ht 172.7 cm (67.99 ) Wt 95.4 kg (210 lb 4.8 oz) SpO2 99% BMI 31.98 kg/m?? Intake/Output Summary (Last 24 hours) at 09/01/2025 0719 Last data filed at 09/01/2025 0516 Gross per 24 hour Intake 1451.1 ml Output 1475 ml Net -23.9 ml CV: Rhythm regular and rate regular L: Clear to auscultation bilaterally Abd: Bowel sounds positive , soft, nontender. Dressings c/d/I, VARGAS serous, scant Ext: No cyanosis, clubbing, edema Recent labs that are back at this time have been reviewed. Assessment/ Plan: Problem List Items Addressed This Visit Gastrointestinal Abdominal * (Principal) Acute pancreatitis - Primary- Resolving. Ok to D/C NG and advance diet. Work with PT/OT. Likely D/C drain either later today vs tomorrow. Relevant Medications omeprazole (priLOSEC) 20 MG capsule pantoprazole (PROTONIX) injection 40 mg piperacillin-tazobactam (ZOSYN) 4.5 g IVPB in 100 mL NS MBP (CD) ondansetron (ZOFRAN) injection 4 mg docusate sodium (COLACE) 100 MG capsule sennosides-docusate (PERICOLACE) 8.6-50 MG per tablet 2 tablet polyethylene glycol (MIRALAX) packet 17 g bisacodyl (DULCOLAX) suppository 10 mg Other Relevant Orders Insert Central Line At Bedside (Completed) Insert Arterial Line (Completed) Other Visit Diagnoses Cholecystitis Relevant Medications sodium chloride 0.9 % bolus 1,000 mL (Completed) piperacillin-tazobactam (ZOSYN) 3.375 g IVPB in 100 mL NS MBP (CD) (Completed) omeprazole (priLOSEC) 20 MG capsule pantoprazole (PROTONIX) injection 40 mg piperacillin-tazobactam (ZOSYN) 4.5 g IVPB in 100 mL NS MBP (CD) ondansetron (ZOFRAN) injection 4 mg docusate sodium (COLACE) 100 MG capsule sennosides-docusate (PERICOLACE) 8.6-50 MG per tablet 2 tablet polyethylene glycol (MIRALAX) packet 17 g bisacodyl (DULCOLAX) suppository 10 mg Other Relevant Orders Tissue Pathology Exam (Completed) Oropharyngeal dysphagia Relevant Medications sodium chloride 0.9 % bolus 1,000 mL (Completed) sodium chloride 0.9 % flush 10 mL sodium chloride 0.9 % flush 10 mL Potassium Replacement - Follow Nurse / BPA Driven Protocol Magnesium Standard Dose Replacement - Follow Nurse / BPA Driven Protocol Phosphorus Replacement - Follow Nurse / BPA Driven Protocol Calcium Replacement - Follow Nurse / BPA Driven Protocol piperacillin-tazobactam (ZOSYN) 3.375 g IVPB in 100 mL NS MBP (CD) (Completed) omeprazole (priLOSEC) 20 MG capsule calcium gluconate 1000 Mg/50ml 0.675% NaCl IV SOLN (Completed) vitamin B-12 (CYANOCOBALAMIN) 1000 MCG tablet vitamin C (ASCORBIC ACID) 250 MG tablet sodium bicarbonate injection 8.4% 100 mEq (Completed) lactated ringers bolus 1,000 mL (Completed) sodium bicarbonate injection 8.4% 100 mEq (Completed) magnesium sulfate 2g/50 mL (PREMIX) infusion (Completed) pantoprazole (PROTONIX) injection 40 mg piperacillin-tazobactam (ZOSYN) 4.5 g IVPB in 100 mL NS MBP (CD) ondansetron (ZOFRAN) injection 4 mg ferrous sulfate 325 (65 FE) MG tablet potassium phosphate 15 mmol in 0.9% normal saline 250 mL IVPB (Completed) potassium chloride (KLOR-CON) packet 40 mEq (Completed) sennosides-docusate (PERICOLACE) 8.6-50 MG per tablet 2 tablet bisacodyl (DULCOLAX) suppository 10 mg potassium chloride (KLOR-CON) packet 40 mEq (Start on 09/01/2025 8:15 AM) Active Hospital Problems Diagnosis POA Acute pancreatitis [K85.90] Yes Respiratory insufficiency [R06.89] Yes Shock [R57.9] Unknown Vasovagal syncope [R55] Yes HTN (hypertension) [I10] Yes Mixed hyperlipidemia [E78.2] Yes COPD (chronic obstructive pulmonary disease) [J44.9] Yes Former tobacco use [Z87.891] Not Applicable History of prostate cancer [Z85.46] Not Applicable BPH with obstruction/lower urinary tract symptoms [N40.1, 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 Hermes Jaramillo MD 09/01/2025 07:19 EST * Brian Hughes MD - 08/31/2025 5:48 PM EST Pulmonary/Critical Care ICU Note LOS: 4 days Patient Care Team: Lisa Arreola APRN as PCP - General (Nurse Practitioner) Chief Complaint: Sepsis Subjective History reviewed and updated in EMR as indicated. History of Present Illness Interval history: Patient remains off mechanical ventilator. He is awake and alert. He passed FEES. Tolerating tube feeding. No new complaints. Son is at the bedside. PAST SURGICAL HISTORY: Laparoscopic cholecystectomy on 08/28/2025. SOCIAL HISTORY Tobacco: Former smoker History taken from: PM/FH/Social History were reviewed and updated appropriately in the electronic medical record. Review of Systems: Review of 14 systems was completed with positives and pertinent negatives noted in the subjective section. All other systems reviewed and are negative. Exceptions are noted below: Unable to obtain secondary to endotracheal intubation. Objective Vital Signs Temp: [98 ??F (36.7 ??C)-98.7 ??F (37.1 ??C)] 98.4 ??F (36.9 ??C) Heart Rate: [79-92] 86 Resp: [16-20] 20 BP: (138-185)/(65-100) 160/77 08/30 0701 - 08/31 0700 In: 908.6 [I.V.:95.5] Out: 1925 [Urine:1885; Drains:40] Body mass index is 31.58 kg/m??. IV drips: Physical Exam: Physical Exam General: Elderly male in no acute distress. HEENT: Normocephalic, atraumatic. Mucous membranes dry. Neck: No JVD. No lymphadenopathy. Heart: Regular rate and rhythm. No murmur. Lungs: Slightly diminished breath sounds bilaterally. No wheezes or rales. Abdomen: Soft, mildly distended, nontender, diminished bowel sounds. Abdominal drain with serous drainage. Extremities: 1+ bilateral lower extremity edema. 2+ radial and dorsalis pedis pulses bilaterally. Skin: No rashes. Neurologic: Awake and alert. Follows commands and moves all extremities. Psychiatric: Nonagitated. The above physical exam findings were reviewed and reflect my exam findings as of today's exam. Electronically signed by: Brian Hughes MD 08/31/25 17:48 EST Results Review: I reviewed the patient's new clinical results. Results from last 7 days Lab Units 08/31/25 0338 08/30/25 0403 08/29/25 0607 08/28/25 0955 SODIUM mmol/L 151* 148* 146* 145 POTASSIUM mmol/L 3.2* 3.5 4.1 3.7 CHLORIDE mmol/L 114* 109* 105 106 CO2 mmol/L 28.2 30.9* 26.0 18.3* BUN mg/dL 29.3* 35.1* 38.4* 31.2* CREATININE mg/dL 0.77 1.16 1.57* 1.72* CALCIUM mg/dL 7.8* 7.9* 7.9* 9.2 BILIRUBIN mg/dL 0.6 0.7 -- 0.8 ALK PHOS U/L 107 93 -- 71 ALT (SGPT) U/L 144* 199* -- 234* AST (SGOT) U/L 71* 144* -- 259* GLUCOSE mg/dL 114* 98 119* 112* Results from last 7 days Lab Units 08/31/25 0338 08/30/25 0403 08/29/25 0607 08/28/25 0955 08/28/25 0843 08/28/25 0613 WBC 10*3/mm3 13.14* 12.35* 15.08* 29.95* 29.84* -- 42.13* HEMOGLOBIN g/dL 9.4* 8.3* 8.5* 7.2* 8.3* -- 9.2* HEMOGLOBIN, POC -- -- -- -- < > -- HEMATOCRIT % 29.2* 26.5* 26.8* 23.2* 26.9* -- 28.9* HEMATOCRIT POC -- -- -- -- < > -- PLATELETS 10*3/mm3 102* 96* 95* 137* 136* -- 183 MONOCYTES % % 2.0* -- -- 2.0* -- 1.0* EOSINOPHIL % % 2.0 -- -- 0.0* -- 0.0* < > = values in this interval not displayed. Results from last 7 days Lab Units 08/29/25 1710 PH, ARTERIAL pH units 7.490* PO2 ART mm Hg 145.0* PCO2, ARTERIAL mm Hg 31.6* HCO3 ART mmol/L 24.0 Results from last 7 days Lab Units 08/31/2533708/30/25 0403 08/29/25 0607 MAGNESIUM mg/dL 2.6* 2.7* 2.3 PHOSPHORUS mg/dL 1.7* 2.5 5.2* I reviewed the patient's new imaging including images and reports. Results Imaging - Cholangiogram: 08/28/2025, Excellent filling of the cystic, common right and left hepatic ducts with good flow of contrast into the duodenum without retaining stone or filling defect. The biliary tree itself including the pancreatic duct was very dilated, but there was no obstruction or retained stone noted. Medication Review: arformoterol, 15 mcg, Nebulization, BID - RT budesonide, 0.5 mg, Nebulization, BID - RT heparin (porcine), 5,000 Units, Subcutaneous, Q8H [START ON 09/01/2025] lisinopril, 40 mg, Nasogastric, Q24H montelukast, 10 mg, Nasogastric, Nightly mupirocin, 1 Application, Each Nare, BID pantoprazole, 40 mg, Intravenous, Q AM piperacillin-tazobactam, 4.5 g, Intravenous, Q8H senna-docusate sodium, 2 tablet, Nasogastric, BID sodium chloride, 10 mL, Intravenous, Q12H terazosin, 5 mg, Nasogastric, Nightly Assessment & Plan Acute pancreatitis Vasovagal syncope HTN (hypertension) Mixed hyperlipidemia COPD (chronic obstructive pulmonary disease) Former tobacco use History of prostate cancer BPH with obstruction/lower urinary tract symptoms Respiratory insufficiency Shock 84-year-old male who presents for acute abdominal pain and sepsis. He has a history of COPD, hypertension, mixed hyperlipidemia, high-grade prostate cancer status post external beam radiation and hormonal therapy, and is a former smoker. He recently underwent a lung biopsy for a lung nodule by Dr. Castillo in [place], [place] on 08/26/2025. Subsequently, he was seen at [facility] for acute abdominal pain and sepsis and was transferred to [facility] for further evaluation. He was diagnosed with pancrea titis and acute cholecystitis and was admitted to the ICU. General surgery was consulted, and he underwent a laparoscopic cholecystectomy by Dr. Jaramillo on 08/28/2025. Extubated 08/29/2025. Off pressors. Passed FEES and tolerating p.o. Assessment & Plan 1. Shock, likely Systemic Inflammatory Response Syndrome (SIRS) secondary to pancreatitis/acute cholecystitis. Status post laparoscopic cholecystectomy with intraoperative cholangiogram on 08/28/2025. The cholangiogram showed excellent filling of the cystic, common right and left hepatic ducts with good flow of contrast into the duodenum without any retained stone or filling defect. The biliary tree, including the pancreatic duct, was significantly dilated, but no obstruction or retained stone was observed. Now off pressors. Shock now resolved. 2. Acute cholecystitis. Status post cholecystectomy. The general surgery team is actively managing the condition. A drain remains in place. Patient started oral diet. 3. Acute pancreatitis. Tube feeding will be resumed once pressors are weaned and with the approval of the surgical team. Lipase level, which was 11,000 at the outside hospital, has decreased to 576 upon admission. There isno definitive radiographic evidence of pancreatitis based on imaging conducted at this hospital although his presentation is consistent with. 4. Acute kidney injury. Creatinine level peaked at 1.85, likely due to shock/SIRS, but has since normalized. Continue to monitor intake and output. Adjust medication dosages based on renal function when appropriate and avoid nephrotoxic agents when feasible. 5. Syncope. Experienced a syncopal episode accompanied by hypotension during transport to the hospital. This was managed with resuscitation and monitoring and was possibly related to a vasovagal event or hypotension secondary to sepsis. 6. Chronic obstructive pulmonary disease (COPD). Continue bronchodilator therapy. Weaned from mechanical ventilation 08/29/2025. 7. Hypertension. Previously on lisinopril, which is currently being held due to hypotension, shock, and acute kidneyinjury. Lisinopril dose increased today. 8. Hyperlipidemia. Patient does not appear to have been on statin. 9. Deep vein thrombosis (DVT) prophylaxis. Administer subcutaneous heparin. 10. Peptic ulcer prophylaxis. Continue intravenous Protonix. Okay to telemetry per surgery. 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 *Exception: for ICU patients or for instances where consent for use was not given, active listeningwas used only for dictation and was not used to record patient or family. * Aaliyah Peralta MS,RD,LD - 08/31/2025 1:05 PM EST Patient Name: Loc Thurman Date of : 1940 Admission date: 08/27/2025 Reason for Encounter: Follow-up/Progress Note [facility] Clinical Nutrition Assessment Subjective Subjective Information 08/31 Pt passed FEES this morning for pureed/NTL; however per RN, pt with difficulty swallowing pill withliquids after diet advance. ? Hypersensitivity to NG tube. TF initiated yesterday - Tolerating without difficulty. Noted electrolyte abnormalities (? Refeeding syndrome), hypernatremia (151), hypokalemia 3.2, hypophosphatemia 1.7. All replaced per protocol. 08/30 Pt identified as NPO/Clear Liquid Diet >/= 72 hrs. POD#3 s/p CCY. Extubated however unable to have diet advanced per RN. ? FEES tomorrow. Objective H&P and Current Problems H&P Past Medical History: Diagnosis Date Cancer COPD (chronic obstructive pulmonary disease) Hyperlipidemia Hypertension Past Surgical History: Procedure Laterality Date APPENDECTOMY CHOLECYSTECTOMY WITH INTRAOPERATIVE CHOLANGIOGRAM N/A 08/28/2025 Procedure: CHOLECYSTECTOMY LAPAROSCOPIC INTRAOPERATIVE CHOLANGIOGRAM; Surgeon: Hermes Jaramillo MD; Location: [facility]; Service: General; Laterality: N/A; COLONOSCOPY HERNIA REPAIR Current Problems Admission Diagnosis: Pancreatitis [K85.90] Pancreatitis, acute [K85.90] Problem List: Acute pancreatitis Vasovagal syncope HTN (hypertension) Mixed hyperlipidemia COPD (chronic obstructive pulmonary disease) Former tobacco use History of prostate cancer BPH with obstruction/lower urinary tract symptoms Respiratory insufficiency Shock Applicable Nutrition Hx (08/28) s/p lap CCY w/ intraoperative cholangiography (08/30) extubated Trophic EN initiated (08/31) s/p FEES - puree, nectar thick liquids, (PO diet at discretion of surgeon only) Anthropometrics Height: 172.7 cm (67.99 ) Weight: 94.2 kg (207 lb 10.8 oz) (08/31/25 0600) Weight Method: Bed scale BMI (Calculated): 31.6 Trending Weight Changes 08/30/25: No significant changes Weight History Wt Readings from Last 10 Encounters: 08/31/25 0600 94.2 kg (207 lb 10.8 oz) 08/27/25 2100 93.4 kg (206 lb) Labs Results from last 7 days Lab Units 08/31/25 0338 08/30/25 0403 08/29/25 1618 08/29/25 1316 08/29/25 0942 08/29/25 0607 08/28/25 1918 08/28/25 0955 SODIUM mmol/L 151* 148* -- -- -- 146* -- 145 POTASSIUM mmol/L 3.2* 3.5 -- -- -- 4.1 -- 3.7 GLUCOSE mg/dL 114* 98 -- -- -- 119* -- 112* BUN mg/dL 29.3* 35.1* -- -- -- 38.4* -- 31.2* CREATININE mg/dL 0.77 1.16 -- -- -- 1.57* -- 1.72* CALCIUM mg/dL 7.8* 7.9* -- -- -- 7.9* -- 9.2 PHOSPHORUS mg/dL 1.7* 2.5 -- -- -- 5.2* -- -- MAGNESIUM mg/dL 2.6* 2.7* -- -- -- 2.3 -- -- ALBUMIN g/dL 3.0* 2.9* -- -- -- -- -- 3.5 LACTATE mmol/L -- -- 2.3* 2.9* 3.7* 4.5* < > 10.4* BILIRUBIN mg/dL 0.6 0.7 -- -- -- -- -- 0.8 ALK PHOS U/L 107 93 -- -- -- -- -- 71 AST (SGOT) U/L 71* 144* -- -- -- -- -- 259* ALT (SGPT) U/L 144* 199* -- -- -- -- -- 234* < > = values in this interval not displayed. Results from last 7 days Lab Units 08/31/25 0338 08/30/25 0403 08/29/25 0607 08/28/25 0613 08/27/25 1943 PLATELETS 10*3/mm3 102* 96* 95* < > 171 HEMOGLOBIN g/dL 9.4* 8.3* 8.5* < > 11.1* HEMOGLOBIN, POC -- -- -- < > -- HEMATOCRIT % 29.2* 26.5* 26.8* < > 34.2* HEMATOCRIT POC -- -- -- < > -- IRON mcg/dL -- -- -- -- 86 < > = values in this interval not displayed. No results found for: HGBA1C Medications Scheduled Medications arformoterol, 15 mcg, Nebulization, BID - RT budesonide, 0.5 mg, Nebulization, BID - RT heparin (porcine), 5,000 Units, Subcutaneous, Q8H [START ON 09/01/2025] lisinopril, 40 mg, Nasogastric, Q24H montelukast, 10 mg, Nasogastric, Nightly mupirocin, 1 Application, Each Nare, BID pantoprazole, 40 mg, Intravenous, Q AM piperacillin-tazobactam, 4.5 g, Intravenous, Q8H senna-docusate sodium, 2 tablet, Nasogastric, BID sodium chloride, 10 mL, Intravenous, Q12H terazosin, 5 mg, Nasogastric, Nightly Infusions norepinephrine, 0.02-0.3 mcg/kg/min, Last Rate: Stopped (08/28/25 0232) PRN Medications [DISCONTINUED] acetaminophen OR acetaminophen OR [DISCONTINUED] acetaminophen senna-docusate sodium AND polyethylene glycol AND [DISCONTINUED] bisacodyl AND bisacodyl Calcium Replacement - Follow Nurse / BPA Driven Protocol dextrose glucagon (human recombinant) hydrALAZINE HYDROmorphone hydrOXYzine ipratropium-albuterol Magnesium Standard Dose Replacement - Follow Nurse / BPA Driven Protocol melatonin naloxone nitroglycerin [DISCONTINUED] ondansetron ODT OR ondansetron Phosphorus Replacement - Follow Nurse / BPA Driven Protocol Potassium Replacement - Follow Nurse / BPA Driven Protocol sodium chloride Physical Findings Chewing/Swallowing PSYCH TECH following Dentition Mouth/Teeth WDL: .WDL except Teeth Symptoms: tooth/teeth missing Skin surgical incision Bowel function Last Bowel Movement: 08/27/25 (08/27/25 2318) Stool Consistency: liquid, watery (08/28/25 0400) Edema Edema: generalized, scrotum (08/31/25 0404) Generalized Edema: 2+ (Mild) (08/31/25 1200) Scrotum Edema: 3+ (Moderate) (08/31/25 1200) Ankle, Left Edema: 3+ (Moderate) (08/31/25 1200) Ankle, Right Edema: 3+ (Moderate) (08/31/25 1200) Foot, Left Edema: 3+ (Moderate) (08/31/25 1200) Foot, Right Edema: 3+ (Moderate) (08/31/25 1200) Intake & Output (last 3 days) 08/28 0708/29 0708/29 0708/30 0708/30 0701 08/31 0708/31 0709/01 0700 I.V. (mL/kg) 4376.7 (46.9) 267.4 (2.9) 95.5 (1) 234 (2.5) Other 177 100 NG/GT 70 342 195 IV Piggyback 600 152.2 294.1 80.5 Total Intake(mL/kg) 4976.7 (53.3) 489.6 (5.2) 908.6 (9.6) 609.5 (6.5) Urine (mL/kg/hr) 1230 (0.5) 1745 (0.8) 1885 (0.8) 315 (0.6) Emesis/NG output 350 210 Drains 105 50 40 Stool 0 Total Output 1684 2004 1924 315 Net +3291.7 -1515.4 -1016.4 +294.5 Stool Unmeasured Occurrence 1 x Nutrition Focused Physical Exam 08/30/25: NFPE not completed r/t pt unable to consent at this time Estimated Needs Date Assessed 08/30 Weight(s) Used 93.4 kg CBW 70.34 kg IBW Energy Requirements Method for Estimation 17-20kcal/kg CBW = 1588 - 1868 25-30 kcals/kg IBW = 0349-7795 MSJ (1586) x 1.1 = 1745 Daily Needs (kcal/day) ~ 1750 kcal Protein Requirements Method for Estimation 1.2-1.5 gm/kg CBW = 112-140 1.5-2.0 gm/kg IBW = 106- 141 Daily Needs (g/day) ~ 120 g protein Fluid Requirements Method for Estimation 1 mL/kcal Daily Needs (mL/day) Per clinical status Current Nutrition Orders & Evaluation of Intake Oral Nutrition Food Allergies/Intolerances NKFA Current PO Diet Diet: Regular/House, Cardiac; Healthy Heart (2-3 Na+); Texture: Pureed (NDD 1); Fluid Consistency: [place] Thick Oral Nutrition Supplement None Trending % PO Intake 08/30/25: NPO Enteral Nutrition Current EN Order Peptamen AF at 20mL/hr + flush of 20mL every hour Current Modular(s) None EN Route NG Tube Size Large bore EN Rx Provides 400 mL goal volume over 20 hours 480 kcal (27 % est needs) 30 g protein (25% est needs) 2.4 g fiber 324 mL water from formula 400 mL flush 724 mL total free water Meets DRI? No EN Observation/Intake Infusing at 20 mL/hr at time of visit Delivered over <1 days 202 mL EN delivered (51 % goal volume) 177 mL flush delivered Assessment & Plan Nutrition Diagnosis and Goals Nutrition Diagnosis 1 Predicted Inadequate Energy Intake r/t ? Dysphagia AEB pureed diet + thickened liquids Nutrition Diagnosis 2 None Goal(s) Establish PO Intake and Accepts Oral Nutrition Supplement and Meets Estimated Needs and Transitions from EN to PO Nutrition Intervention and Prescription Intervention Start oral nutrition supplement, Continue to monitor for plan of care, and adjust flush Diet Prescription Heart Healthy, pureed + nectar thick liquids ? Tolerate PO intake Supplement Prescription Provide Magic Cup BID Education Provided Enteral Prescription Would consider d/c NG to allow for trials of PO diet. If unable to safely takePO intake adequately, would consider replacing NG with keofeed. If to continue EN, recommend continue trophic feeds with increased flush: Peptamen AF @ 20mL/hr + flush of 50mL/hr Adjust flush per clinical status Close monitoring of electrolytes and replace per protocol TPN Prescription Monitoring/Evaluation Monitor/Evaluation Per Protocol, I&O, PO Intake, Oral Nutrition Supplement Intake, Pertinent Labs, EN Delivery/Tolerance, GI Status, Symptoms, POC/GOC, Swallow Function, and Hemodynamic Stability RD Follow-Up Encounter 1-2 days and prn Electronically signed by: Aaliyah Peralta MS,RD,LD 08/31/25 13:05 EST * Hermes Jaramillo MD - 08/31/2025 7:24 AM EST Patient Name: Loc Thurman Date of : 1940 [id number] Surgery Progress Note Date of visit: 08/31/2025 Subjective Subjective: Feeling better. Tolertaing trophic feeds, had a BM. Objective Objective: BP 151/71 (BP Location: Right arm, Patient Position: Lying) Pulse 83 Temp 98 ??F (36.7 ??C) (Oral) Resp 20 Ht 172.7 cm (67.99 ) Wt 94.2 kg (207 lb 10.8 oz) SpO2 96% BMI 31.58 kg/m?? Intake/Output Summary (Last 24 hours) at 08/31/2025 0724 Last data filed at 08/31/2025 0600 Gross per 24 hour Intake 908.6 ml Output 1925 ml Net -1016.4 ml CV: Rhythm regular and rate regular L: Clear to auscultation bilaterally Abd: Bowel sounds positive , soft, nontender. Dressings c/d/I. VARGAS serous Ext: No cyanosis, clubbing, edema Recent labs that are back at this time have been reviewed. Assessment/ Plan: Problem List Items Addressed This Visit Gastrointestinal Abdominal * (Principal) Acute pancreatitis - Primary- Improving slowly. FEES today. Increase mobility. OK forPO diet from my standpoint once passes dysphagia eval. Relevant Medications omeprazole (priLOSEC) 20 MG capsule phenylephrine (KAYLYNN-SYNEPHRINE) 50 mg in sodium chloride 0.9 % 250 mL infusion pantoprazole (PROTONIX) injection 40 mg piperacillin-tazobactam (ZOSYN) 4.5 g IVPB in 100 mL NS MBP (CD) sennosides-docusate (PERICOLACE) 8.6-50 MG per tablet 2 tablet polyethylene glycol (MIRALAX) packet 17 g bisacodyl (DULCOLAX) suppository 10 mg ondansetron ODT (ZOFRAN-ODT) disintegrating tablet 4 mg ondansetron (ZOFRAN) injection 4 mg docusate sodium (COLACE) 100 MG capsule Other Relevant Orders Insert Central Line At Bedside (Completed) Insert Arterial Line (Completed) Other Visit Diagnoses Cholecystitis Relevant Medications sodium chloride 0.9 % bolus 1,000 mL (Completed) piperacillin-tazobactam (ZOSYN) 3.375 g IVPB in 100 mL NS MBP (CD) (Completed) omeprazole (priLOSEC) 20 MG capsule phenylephrine (KAYLYNN-SYNEPHRINE) 50 mg in sodium chloride 0.9 % 250 mL infusion pantoprazole (PROTONIX) injection 40 mg piperacillin-tazobactam (ZOSYN) 4.5 g IVPB in 100 mL NS MBP (CD) sennosides-docusate (PERICOLACE) 8.6-50 MG per tablet 2 tablet polyethylene glycol (MIRALAX) packet 17 g bisacodyl (DULCOLAX) suppository 10 mg ondansetron ODT (ZOFRAN-ODT) disintegrating tablet 4 mg ondansetron (ZOFRAN) injection 4 mg docusate sodium (COLACE) 100 MG capsule Other Relevant Orders Tissue Pathology Exam Dysphagia, unspecified type Relevant Medications sodium chloride 0.9 % bolus 1,000 mL (Completed) sodium chloride 0.9 % flush 10 mL sodium chloride 0.9 % flush 10 mL Potassium Replacement - Follow Nurse / BPA Driven Protocol Magnesium Standard Dose Replacement - Follow Nurse / BPA Driven Protocol Phosphorus Replacement - Follow Nurse / BPA Driven Protocol Calcium Replacement - Follow Nurse / BPA Driven Protocol piperacillin-tazobactam (ZOSYN) 3.375 g IVPB in 100 mL NS MBP (CD) (Completed) omeprazole (priLOSEC) 20 MG capsule calcium gluconate 1000 Mg/50ml 0.675% NaCl IV SOLN (Completed) vitamin B-12 (CYANOCOBALAMIN) 1000 MCG tablet vitamin C (ASCORBIC ACID) 250 MG tablet sodium bicarbonate injection 8.4% 100 mEq (Completed) lactated ringers bolus 1,000 mL (Completed) phenylephrine (KAYLYNN-SYNEPHRINE) 50 mg in sodium chloride 0.9 % 250 mL infusion vasopressin (PITRESSIN) 20 units in 100 mL NS infusion sodium bicarbonate injection 8.4% 100 mEq (Completed) magnesium sulfate 2g/50 mL (PREMIX) infusion (Completed) pantoprazole (PROTONIX) injection 40 mg piperacillin-tazobactam (ZOSYN) 4.5 g IVPB in 100 mL NS MBP (CD) sennosides-docusate (PERICOLACE) 8.6-50 MG per tablet 2 tablet bisacodyl (DULCOLAX) suppository 10 mg ondansetron ODT (ZOFRAN-ODT) disintegrating tablet 4 mg ondansetron (ZOFRAN) injection 4 mg ferrous sulfate 325 (65 FE) MG tablet potassium phosphate 15 mmol in 0.9% normal saline 250 mL IVPB potassium chloride (KLOR-CON) packet 40 mEq Active Hospital Problems Diagnosis POA Acute pancreatitis [K85.90] Yes Respiratory insufficiency [R06.89] Yes Shock [R57.9] Unknown Vasovagal syncope [R55] Yes HTN (hypertension) [I10] Yes Mixed hyperlipidemia [E78.2] Yes COPD (chronic obstructive pulmonary disease) [J44.9] Yes Former tobacco use [Z87.891] Not Applicable History of prostate cancer [Z85.46] Not Applicable BPH with obstruction/lower urinary tract symptoms [N40.1, 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 Hermes Jaramillo MD 08/31/2025 07:24 EST * Brian Hughes MD - 08/30/2025 12:08 PM EST Pulmonary/Critical Care ICU Note LOS: 3 days Patient Care Team: Lisa Arreola APRN as PCP - General (Nurse Practitioner) Chief Complaint: Sepsis Subjective History reviewed and updated in EMR as indicated. History of Present Illness Interval history: Patient tolerated extubation yesterday. Currently has excellent oxygen saturation on 4 L nasal cannula. He is awake and alert. No fevers or chills. Has remained n.p.o. General Surgery okay with initiating trophic feeds. PAST SURGICAL HISTORY: Laparoscopic cholecystectomy on 08/28/2025. SOCIAL HISTORY Tobacco: Former smoker History taken from: [facility]//Social History were reviewed and updated appropriately in the electronic medical record. Review of Systems: Review of 14 systems was completed with positives and pertinent negatives noted in the subjective section. All other systems reviewed and are negative. Exceptions are noted below: Unable to obtain secondary to endotracheal intubation. Objective Vital Signs Temp: [97.8 ??F (36.6 ??C)-98.9 ??F (37.2 ??C)] 98.3 ??F (36.8 ??C) Heart Rate: [64-89] 80 Resp: [12-20] 20 BP: (107-163)/(44-86) 151/75 Arterial Line BP: (104-176)/(29-134) 176/55 FiO2 (%): [40 %] 40 % 08/29 07 - 08/30 07 In: 489.6 [I.V.:267.4] Out: 2004 [Urine:1745; Drains:50] Body mass index is 31.33 kg/m??. Mode: VC+/AC FiO2 (%): [40 %] 40 % S RR: [16] 16 S VT: [460 mL] 460 mL PEEP/CPAP (cm H2O): [6 cm H20] 6 cm H20 NC SUP: [10 cm H20] 10 cm H20 MAP (cm H2O): [11] 11 IV drips: norepinephrine, Last Rate: Stopped (08/28/25 0232) phenylephrine, Last Rate: Stopped (08/29/25 1610) vasopressin, Last Rate: Stopped (08/29/25 1833) Physical Exam: Physical Exam General: Elderly male in no acute distress. HEENT: Normocephalic, atraumatic. Mucous membranes dry. Neck: No JVD. No lymphadenopathy. Heart: Regular rate and rhythm. No murmur. Lungs: Slightly diminished breath sounds bilaterally. No wheezes or rales. Abdomen: Soft, mildly distended, nontender, diminished bowel sounds. Abdominal drain with serous drainage. Extremities: 1+ bilateral lower extremity edema. 2+ radial and dorsalis pedis pulses bilaterally. Skin: No rashes. Neurologic: Awake and alert. Follows commands and moves all extremities. Psychiatric: Nonagitated. The above physical exam findings were reviewed and reflect my exam findings as of today's exam. Electronically signed by: Brian Hughes MD 08/30/25 12:08 EST Results Review: I reviewed the patient's new clinical results. Results from last 7 days Lab Units 08/30/25 0403 08/29/25 0607 08/28/25 0955 08/28/25 0613 SODIUM mmol/L 148* 146* 145 147* POTASSIUM mmol/L 3.5 4.1 3.7 3.6 CHLORIDE mmol/L 109* 105 106 106 CO2 mmol/L 30.9* 26.0 18.3* 15.5* BUN mg/dL 35.1* 38.4* 31.2* 29.7* CREATININE mg/dL 1.16 1.57* 1.72* 1.81* CALCIUM mg/dL 7.9* 7.9* 9.2 7.5* BILIRUBIN mg/dL 0.7 -- 0.8 0.7 ALK PHOS U/L 93 -- 71 101 ALT (SGPT) U/L 199* -- 234* 235* AST (SGOT) U/L 144* -- 259* 272* GLUCOSE mg/dL 98 119* 112* 67 Results from last 7 days Lab Units 08/30/25 0403 08/29/25 0607 08/28/25 0955 08/28/25 0843 08/28/25 0613 WBC 10*3/mm3 12.35* 15.08* 29.95* 29.84* -- 42.13* HEMOGLOBIN g/dL 8.3* 8.5* 7.2* 8.3* -- 9.2* HEMOGLOBIN, POC -- -- -- < > -- HEMATOCRIT % 26.5* 26.8* 23.2* 26.9* -- 28.9* HEMATOCRIT POC -- -- -- < > -- PLATELETS 10*3/mm3 96* 95* 137* 136* -- 183 MONOCYTES % % -- -- 2.0* -- 1.0* EOSINOPHIL % % -- -- 0.0* -- 0.0* < > = values in this interval not displayed. Results from last 7 days Lab Units 08/29/25 1710 PH, ARTERIAL pH units 7.490* PO2 ART mm Hg 145.0* PCO2, ARTERIAL mm Hg 31.6* HCO3 ART mmol/L 24.0 Results from last 7 days Lab Units 08/30/25 0403 08/29/25 0607 08/28/25 0135 MAGNESIUM mg/dL 2.7* 2.3 1.8 PHOSPHORUS mg/dL 2.5 5.2* -- I reviewed the patient's new imaging including images and reports. Results Labs - Lipase: 137 Imaging - Cholangiogram: 08/28/2025, Excellent filling of the cystic, common right and left hepatic ducts with good flow of contrast into the duodenum without retaining stone or filling defect. The biliary tree itself including the pancreatic duct was very dilated, but there was no obstruction or retained stone noted. Medication Review: arformoterol, 15 mcg, Nebulization, BID - RT budesonide, 0.5 mg, Nebulization, BID - RT heparin (porcine), 5,000 Units, Subcutaneous, Q8H montelukast, 10 mg, Nasogastric, Nightly mupirocin, 1 Application, Each Nare, BID pantoprazole, 40 mg, Intravenous, Q AM piperacillin-tazobactam, 4.5 g, Intravenous, Q8H potassium chloride ER, 20 mEq, Oral, Once sodium chloride, 10 mL, Intravenous, Q12H norepinephrine, 0.02-0.3 mcg/kg/min, Last Rate: Stopped (08/28/25 0232) phenylephrine, 0.5-3 mcg/kg/min, Last Rate: Stopped (08/29/25 1610) vasopressin, 0.03 Units/min, Last Rate: Stopped (08/29/25 1833) Assessment & Plan Acute pancreatitis Vasovagal syncope HTN (hypertension) Mixed hyperlipidemia COPD (chronic obstructive pulmonary disease) Former tobacco use History of prostate cancer BPH with obstruction/lower urinary tract symptoms Respiratory insufficiency Shock 84-year-old male who presents for acute abdominal pain and sepsis. He has a history of COPD, hypertension, mixed hyperlipidemia, high-grade prostate cancer status post external beam radiation and hormonal therapy, and is a former smoker. He recently underwent a lung biopsy for a lung nodule by Dr. Castillo in [place], [place] on 08/26/2025. Subsequently, he was seen at [facility] for acute abdominal pain and sepsis and was transferred to [facility] for further evaluation. He was diagnosed with pancrea titis and acute cholecystitis and was admitted to the ICU. General surgery was consulted, and he underwent a laparoscopic cholecystectomy by Dr. Jaramillo on 08/28/2025. Extubated 08/29/2025. Off pressors. Assessment & Plan 1. Shock, likely Systemic Inflammatory Response Syndrome (SIRS) secondary to pancreatitis/acute cholecystitis. Status post laparoscopic cholecystectomy with intraoperative cholangiogram on 08/28/2025. The cholangiogram showed excellent filling of the cystic, common right and left hepatic ducts with good flow of contrast into the duodenum without any retained stone or filling defect. The biliary tree, including the pancreatic duct, was significantly dilated, but no obstruction or retained stone was observed. Now off pressors. 2. Acute cholecystitis. Status post cholecystectomy. The general surgery team is actively managing the condition. A drain remains in place. Okay to start feeding per surgery. 3. Acute pancreatitis. Tube feeding will be resumed once pressors are weaned and with the approval of the surgical team. Lipase level, which was 11,000 at the outside hospital, has decreased to 576 upon admission. There isno definitive radiographic evidence of pancreatitis based on imaging conducted at this hospital. 4. Acute kidney injury. Creatinine level peaked at 1.85, likely due to shock/SIRS, but has since normalized. Continue to monitor intake and output. Adjust medication dosages based on renal function when appropriate and avoid nephrotoxic agents when feasible. 5. Syncope. Experienced a syncopal episode accompanied by hypotension during transport to the hospital. This was managed with resuscitation and monitoring and was possibly related to a vasovagal event or hypotension secondary to sepsis. 6. Chronic obstructive pulmonary disease (COPD). Continue bronchodilator therapy. Weaned from mechanical ventilation 08/29/2025. 7. Hypertension. Previously on lisinopril, which is currently being held due to hypotension, shock, and acute kidneyinjury. 8. Hyperlipidemia. Statin therapy will be resumed when deemed appropriate. 9. Deep vein thrombosis (DVT) prophylaxis. Administer subcutaneous heparin. 10. Peptic ulcer prophylaxis. Continue intravenous Protonix. Probably okay to telemetry soon if okay with surgery. 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 *Exception: for ICU patients or for instances where consent for use was not given, active listeningwas used only for dictation and was not used to record patient or family. * Aaliyah Peralta, MS,RD,LD - 08/30/2025 11:31 AM EST Patient Name: Loc Thurman Date of : 1940 Admission date: 08/27/2025 Reason for Encounter: NPO/CLD x 3 days+ [facility] Clinical Nutrition Assessment Subjective Subjective Information Pt identified as NPO/Clear Liquid Diet >/= 72 hrs. POD#3 s/p CCY. Extubated however unable to have diet advanced per RN. ? FEES tomorrow. Objective H&P and Current Problems H&P Past Medical History: Diagnosis Date Cancer COPD (chronic obstructive pulmonary disease) Hyperlipidemia Hypertension Past Surgical History: Procedure Laterality Date APPENDECTOMY CHOLECYSTECTOMY WITH INTRAOPERATIVE CHOLANGIOGRAM N/A 08/28/2025 Procedure: CHOLECYSTECTOMY LAPAROSCOPIC INTRAOPERATIVE CHOLANGIOGRAM; Surgeon: Hermes Jaramillo MD; Location: [facility]; Service: General; Laterality: N/A; COLONOSCOPY HERNIA REPAIR Current Problems Admission Diagnosis: Pancreatitis [K85.90] Pancreatitis, acute [K85.90] Problem List: Acute pancreatitis Vasovagal syncope HTN (hypertension) Mixed hyperlipidemia COPD (chronic obstructive pulmonary disease) Former tobacco use History of prostate cancer BPH with obstruction/lower urinary tract symptoms Respiratory insufficiency Shock Applicable Nutrition Hx (08/28) s/p lap CCY w/ intraoperative cholangiography (08/30) extubated ? PSYCH TECH eval pending Anthropometrics Height: 172.7 cm (67.99 ) Weight: 93.4 kg (206 lb) (08/27/25 2100) Weight Method: Bed scale BMI (Calculated): 31.3 Trending Weight Changes 08/30/25: No significant changes Weight History Wt Readings from Last 10 Encounters: 08/27/25 2100 93.4 kg (206 lb) Labs Results from last 7 days Lab Units 08/30/25 0403 08/29/25 1618 08/29/25 1316 08/29/25 0942 08/29/25 0607 08/28/25 1918 08/28/25 0955 08/28/25 0613 08/28/25 0135 SODIUM mmol/L 148* -- -- -- 146* -- 145 147* 143 POTASSIUM mmol/L 3.5 -- -- -- 4.1 -- 3.7 3.6 3.7 GLUCOSE mg/dL 98 -- -- -- 119* -- 112* 67 78 BUN mg/dL 35.1* -- -- -- 38.4* -- 31.2* 29.7* 25.7* CREATININE mg/dL 1.16 -- -- -- 1.57* -- 1.72* 1.81* 1.85* CALCIUM mg/dL 7.9* -- -- -- 7.9* -- 9.2 7.5* 7.6* PHOSPHORUS mg/dL 2.5 -- -- -- 5.2* -- -- -- -- MAGNESIUM mg/dL 2.7* -- -- -- 2.3 -- -- -- 1.8 ALBUMIN g/dL 2.9* -- -- -- -- -- 3.5 2.9* -- LACTATE mmol/L -- 2.3* 2.9* 3.7* 4.5* < > 10.4* 11.6* 8.0* BILIRUBIN mg/dL 0.7 -- -- -- -- -- 0.8 0.7 -- ALK PHOS U/L 93 -- -- -- -- -- 71 101 -- AST (SGOT) U/L 144* -- -- -- -- -- 259* 272* -- ALT (SGPT) U/L 199* -- -- -- -- -- 234* 235* -- < > = values in this interval not displayed. Results from last 7 days Lab Units 08/30/25 0403 08/29/25 0607 08/28/25 0955 08/28/25 0613 08/27/25 1943 PLATELETS 10*3/mm3 96* 95* 137* 136* < > 171 HEMOGLOBIN g/dL 8.3* 8.5* 7.2* 8.3* < > 11.1* HEMOGLOBIN, POC -- -- -- < > -- HEMATOCRIT % 26.5* 26.8* 23.2* 26.9* < > 34.2* HEMATOCRIT POC -- -- -- < > -- IRON mcg/dL -- -- -- -- 86 < > = values in this interval not displayed. No results found for: HGBA1C Medications Scheduled Medications arformoterol, 15 mcg, Nebulization, BID - RT budesonide, 0.5 mg, Nebulization, BID - RT heparin (porcine), 5,000 Units, Subcutaneous, Q8H montelukast, 10 mg, Nasogastric, Nightly mupirocin, 1 Application, Each Nare, BID pantoprazole, 40 mg, Intravenous, Q AM piperacillin-tazobactam, 4.5 g, Intravenous, Q8H potassium chloride ER, 20 mEq, Oral, Once sodium chloride, 10 mL, Intravenous, Q12H Infusions norepinephrine, 0.02-0.3 mcg/kg/min, Last Rate: Stopped (08/28/25 0232) phenylephrine, 0.5-3 mcg/kg/min, Last Rate: Stopped (08/29/25 1610) vasopressin, 0.03 Units/min, Last Rate: Stopped (08/29/25 1833) PRN Medications acetaminophen OR acetaminophen OR acetaminophen senna-docusate sodium AND polyethylene glycol AND [DISCONTINUED] bisacodyl AND bisacodyl Calcium Replacement - Follow Nurse / BPA Driven Protocol dextrose glucagon (human recombinant) HYDROmorphone hydrOXYzine ipratropium-albuterol Magnesium Standard Dose Replacement - Follow Nurse / BPA Driven Protocol melatonin naloxone nitroglycerin ondansetron ODT OR ondansetron Phosphorus Replacement - Follow Nurse / BPA Driven Protocol Potassium Replacement - Follow Nurse / BPA Driven Protocol sodium chloride Physical Findings Chewing/Swallowing PSYCH TECH following Dentition Mouth/Teeth WDL: .WDL except Teeth Symptoms: tooth/teeth missing Skin surgical incision Bowel function Last Bowel Movement: 08/27/25 (08/27/25 2318) Stool Consistency: liquid, watery (08/28/25 0400) Edema Edema: generalized, scrotum, foot, left, foot, right, ankle, right, ankle, left (08/30/25 0600) Generalized Edema: 2+ (Mild) (08/30/25 1000) Scrotum Edema: 3+ (Moderate) (08/30/25 1000) Ankle, Left Edema: 3+ (Moderate) (08/30/25 1000) Ankle, Right Edema: 3+ (Moderate) (08/30/25 1000) Foot, Left Edema: 3+ (Moderate) (08/30/25 1000) Foot, Right Edema: 3+ (Moderate) (08/30/25 1000) Intake & Output (last 3 days) 08/27 0708/28 07 I.V. (mL/kg) 25 (0.3) 4376.7 (46.9) 267.4 (2.9) 22.8 (0.2) NG/GT 70 IV Piggyback 1350 600 152.2 36.5 Total Intake(mL/kg) 1375 (14.7) 4976.7 (53.3) 489.6 (5.2) 59.3 (0.6) Urine (mL/kg/hr) 750 1230 (0.5) 1745 (0.8) 215 (0.5) Emesis/NG output 350 210 Drains 105 50 Stool 0 0 Total Output 750 1685 2004 215 Net +625 +3291.7 -1515.4 -155.7 Stool Unmeasured Occurrence 2 x 1 x Nutrition Focused Physical Exam 08/30/25: NFPE not completed r/t pt unable to consent at this time Estimated Needs Date Assessed 08/30 Weight(s) Used 93.4 kg CBW 70.34 kg IBW Energy Requirements Method for Estimation 17-20kcal/kg CBW = 1588 - 1868 25-30 kcals/kg IBW = 8585-3722 MSJ (1586) x 1.1 = 1745 Daily Needs (kcal/day) ~ 1750 kcal Protein Requirements Method for Estimation 1.2-1.5 gm/kg CBW = 112-140 1.5-2.0 gm/kg IBW = 106- 141 Daily Needs (g/day) ~ 120 g protein Fluid Requirements Method for Estimation 1 mL/kcal Daily Needs (mL/day) Per clinical status Current Nutrition Orders & Evaluation of Intake Oral Nutrition Food Allergies/Intolerances NKFA Current PO Diet NPO Diet NPO Type: Strict NPO Oral Nutrition Supplement None Trending % PO Intake 08/30/25: NPO 2 Assessment & Plan Nutrition Diagnosis and Goals Nutrition Diagnosis 1 Inadequate Oral Intake r/t ? Dysphagia AEB NPO status pending FEES Nutrition Diagnosis 2 None Goal(s) PO Diet Advances When Medically Appropriate and initiate EN if appropriate Nutrition Intervention and Prescription Intervention Await initiation of EN and Continue to monitor for plan of care Diet Prescription Advance diet as clinically indicated per PSYCH TECH recs Supplement Prescription Education Provided Enteral Prescription If to initiate EN, recommend trophic feeds: Peptamen AF @ 20mL/hr + flush of 20mL/hr Monitor for initiation and tolerance Adjust flush per clinical status Will order nutrition labs pending EN initiation TPN Prescription Monitoring/Evaluation Monitor/Evaluation Per Protocol, I&O, Pertinent Labs, GI Status, Symptoms, POC/GOC, Swallow Function, and Hemodynamic Stability RD Follow-Up Encounter 1-2 days and prn Electronically signed by: Aaliyah Peralta MS,RD,LD 08/30/25 11:31 EST * Hermes Jaramillo MD - 08/30/2025 9:57 AM EST Patient Name: Loc Thurman Date of : 1940 [id number] Surgery Progress Note Date of visit: 08/30/2025 Subjective Subjective: Extubated overnight. Some confusion, but otherwise stable. Off pressors. Objective Objective: BP 163/86 Pulse 81 Temp 98.3 ??F (36.8 ??C) (Axillary) Resp 20 Ht 172.7 cm (67.99 ) Wt 93.4 kg (206 lb) SpO2 97% BMI 31.33 kg/m?? Intake/Output Summary (Last 24 hours) at 08/30/2025 0957 Last data filed at 08/30/2025 0800 Gross per 24 hour Intake 487.3 ml Output 1935 ml Net -1447.7 ml CV: Rhythm regular and rate regular L: Clear to auscultation bilaterally Abd: Bowel sounds positive , soft, less tender. Dressings c/d/I, VARGAS serous Ext: No cyanosis, clubbing, edema Recent labs that are back at this time have been reviewed. Labs improving. Assessment/ Plan: Problem List Items Addressed This Visit Gastrointestinal Abdominal * (Principal) Acute pancreatitis - Primary- Improving. Continue current management. OOBTC. Dysphagia eval. Will follow. Relevant Medications ondansetron ODT (ZOFRAN-ODT) disintegrating tablet 4 mg ondansetron (ZOFRAN) injection 4 mg omeprazole (priLOSEC) 20 MG capsule phenylephrine (KAYLYNN-SYNEPHRINE) 50 mg in sodium chloride 0.9 % 250 mL infusion pantoprazole (PROTONIX) injection 40 mg piperacillin-tazobactam (ZOSYN) 4.5 g IVPB in 100 mL NS MBP (CD) sennosides-docusate (PERICOLACE) 8.6-50 MG per tablet 2 tablet polyethylene glycol (MIRALAX) packet 17 g bisacodyl (DULCOLAX) suppository 10 mg Other Relevant Orders Insert Central Line At Bedside (Completed) Insert Arterial Line (Completed) Other Visit Diagnoses Cholecystitis Relevant Medications sodium chloride 0.9 % bolus 1,000 mL (Completed) piperacillin-tazobactam (ZOSYN) 3.375 g IVPB in 100 mL NS MBP (CD) (Completed) ondansetron ODT (ZOFRAN-ODT) disintegrating tablet 4 mg ondansetron (ZOFRAN) injection 4 mg omeprazole (priLOSEC) 20 MG capsule phenylephrine (KAYLYNN-SYNEPHRINE) 50 mg in sodium chloride 0.9 % 250 mL infusion pantoprazole (PROTONIX) injection 40 mg piperacillin-tazobactam (ZOSYN) 4.5 g IVPB in 100 mL NS MBP (CD) sennosides-docusate (PERICOLACE) 8.6-50 MG per tablet 2 tablet polyethylene glycol (MIRALAX) packet 17 g bisacodyl (DULCOLAX) suppository 10 mg Other Relevant Orders Tissue Pathology Exam Active Hospital Problems Diagnosis POA Acute pancreatitis [K85.90] Yes Respiratory insufficiency [R06.89] Yes Shock [R57.9] Unknown Vasovagal syncope [R55] Yes HTN (hypertension) [I10] Yes Mixed hyperlipidemia [E78.2] Yes COPD (chronic obstructive pulmonary disease) [J44.9] Yes Former tobacco use [Z87.891] Not Applicable History of prostate cancer [Z85.46] Not Applicable BPH with obstruction/lower urinary tract symptoms [N40.1, 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 Hermes Jaramillo MD 08/30/2025 09:57 EST * Brian Hughes MD - 08/29/2025 9:19 AM EST Pulmonary/Critical Care ICU Note LOS: 2 days Patient Care Team: Provider, No Known as PCP - General Chief Complaint: Sepsis Subjective History of Present Illness 84-year-old male who presents for acute abdominal pain and sepsis. He has a history of COPD, hypertension, mixed hyperlipidemia, high-grade prostate cancer status post external beam radiation and hormonal therapy, and is a former smoker. He recently underwent a lung biopsy for a lung nodule by Dr. Castillo in [place], [place] on 08/26/2025. Subsequently, he was seen at [facility] for acute abdominal pain and sepsis and was transferred to [facility] for further evaluation. He was diagnosed with pancrea titis and acute cholecystitis and was admitted to the ICU. General surgery was consulted, and he underwent a laparoscopic cholecystectomy by Dr. Jaramillo on 08/28/2025. The patient is currently on mechanical ventilation and unable to relay any history. He is accompanied by his son. He has been on 10 of PEEP and 45% FiO2 this morning, which was decreased to 8 of PEEPand 40% FiO2. He has had lactic acidosis, which has been decreasing with fluid resuscitation, and remains on pressors with 0.03 units/min of vasopressin and 0.25 mcg/kg/min of phenylephrine. PAST SURGICAL HISTORY: Laparoscopic cholecystectomy on 08/28/2025. SOCIAL HISTORY Tobacco: Former smoker History taken from: [facility]//Social History were reviewed and updated appropriately in the electronic medical record. Review of Systems: Review of 14 systems was completed with positives and pertinent negatives noted in the subjective section. All other systems reviewed and are negative. Exceptions are noted below: Unable to obtain secondary to endotracheal intubation. Objective Vital Signs Temp: [97.7 ??F (36.5 ??C)-98.2 ??F (36.8 ??C)] 98.2 ??F (36.8 ??C) Heart Rate: [60-121] 67 Resp: [12-16] 16 BP: (91-153)/(45-71) 117/55 Arterial Line BP: (87-143)/(36-66) 102/37 FiO2 (%): [45 %-100 %] 45 % 08/28 0701 - 08/29 0700 In: 4976.7 [I.V.:4376.7] Out: 1685 [Urine:1230; Drains:105] Body mass index is 31.33 kg/m??. Mode: VC+/AC FiO2 (%): [45 %-100 %] 45 % S RR: [14-16] 16 S VT: [460 mL] 460 mL PEEP/CPAP (cm H2O): [5 cm H20-10 cm H20] 10 cm H20 MAP (cm H2O): [9-15] 14 IV drips: fentanyl 10 mcg/mL, Last Rate: 200 mcg/hr (08/28/25 2213) norepinephrine, Last Rate: Stopped (08/28/25 0232) phenylephrine, Last Rate: 0.25 mcg/kg/min (08/29/25 0400) propofol, Last Rate: 20 mcg/kg/min (08/29/25 08) vasopressin, Last Rate: 0.03 Units/min (08/29/25 08) Physical Exam: Physical Exam General: Elderly male on mechanical ventilation, in no acute distress. HEENT: Normocephalic, atraumatic. Oral endotracheal tube in place. Mucous membranes dry. Neck: No JVD. No lymphadenopathy. Heart: Regular rate and rhythm. No murmur. Lungs: Slightly diminished breath sounds bilaterally. No wheezes or rales. Abdomen: Soft, mildly distended, nontender, diminished bowel sounds. Extremities: 1+ bilateral lower extremity edema. 2+ radial and dorsalis pedis pulses bilaterally. Skin: No rashes. Neurologic: Sedated. Psychiatric: Sedated. The above physical exam findings were reviewed and reflect my exam findings as of today's exam. Electronically signed by: Brian Hughes MD 08/29/25 09:20 EST Results Review: I reviewed the patient's new clinical results. Results from last 7 days Lab Units 08/29/25 0607 08/28/25 0955 08/28/25 0613 08/28/25 0135 08/27/25 1943 SODIUM mmol/L 146* 145 147* < > 143 POTASSIUM mmol/L 4.1 3.7 3.6 < > 3.5 CHLORIDE mmol/L 105 106 106 < > 110* CO2 mmol/L 26.0 18.3* 15.5* < > 15.6* BUN mg/dL 38.4* 31.2* 29.7* < > 20.6 CREATININE mg/dL 1.57* 1.72* 1.81* < > 1.49* CALCIUM mg/dL 7.9* 9.2 7.5* < > 8.1* BILIRUBIN mg/dL -- 0.8 0.7 -- 1.0 ALK PHOS U/L -- 71 101 -- 106 ALT (SGPT) U/L -- 234* 235* -- 275* AST (SGOT) U/L -- 259* 272* -- 456* GLUCOSE mg/dL 119* 112* 67 < > 110* < > = values in this interval not displayed. Results from last 7 days Lab Units 08/29/25 0607 08/28/25 0955 08/28/25 0843 08/28/25 0613 WBC 10*3/mm3 15.08* 29.95* 29.84* -- 42.13* HEMOGLOBIN g/dL 8.5* 7.2* 8.3* -- 9.2* HEMOGLOBIN, POC g/dL -- -- 7.8* -- HEMATOCRIT % 26.8* 23.2* 26.9* -- 28.9* HEMATOCRIT POC % -- -- 23* -- PLATELETS 10*3/mm3 95* 137* 136* -- 183 MONOCYTES % % -- 2.0* -- 1.0* EOSINOPHIL % % -- 0.0* -- 0.0* Results from last 7 days Lab Units 08/29/25 0351 PH, ARTERIAL pH units 7.407 PO2 ART mm Hg 144.0* PCO2, ARTERIAL mm Hg 36.8 HCO3 ART mmol/L 23.1 Results from last 7 days Lab Units 08/29/25 0607 08/28/25 0135 08/27/25 2234 MAGNESIUM mg/dL 2.3 1.8 1.9 PHOSPHORUS mg/dL 5.2* -- -- I reviewed the patient's new imaging including images and reports. Results Labs - White blood cell count: 08/28/2025, 42 - White blood cell count: 15.08 - Lipase: 11,000 - Lipase: 576 - Creatinine: 1.85 - Creatinine: 1.57 Imaging - Cholangiogram: 08/28/2025, Excellent filling of the cystic, common right and left hepatic ducts with good flow of contrast into the duodenum without retaining stone or filling defect. The biliary tree itself including the pancreatic duct was very dilated, but there was no obstruction or retained stone noted. Medication Review: arformoterol, 15 mcg, Nebulization, BID - RT budesonide, 0.5 mg, Nebulization, BID - RT heparin (porcine), 5,000 Units, Subcutaneous, Q8H montelukast, 10 mg, Oral, Nightly mupirocin, 1 Application, Each Nare, BID pantoprazole, 40 mg, Intravenous, Q AM piperacillin-tazobactam, 4.5 g, Intravenous, Q8H potassium chloride ER, 20 mEq, Oral, Once sodium chloride, 10 mL, Intravenous, Q12H fentanyl 10 mcg/mL, 50-300 mcg/hr, Last Rate: 200 mcg/hr (08/28/25 2213) norepinephrine, 0.02-0.3 mcg/kg/min, Last Rate: Stopped (08/28/25 0232) phenylephrine, 0.5-3 mcg/kg/min, Last Rate: 0.25 mcg/kg/min (08/29/25 0400) propofol, 5-50 mcg/kg/min, Last Rate: 20 mcg/kg/min (08/29/25829) vasopressin, 0.03 Units/min, Last Rate: 0.03 Units/min (08/29/25829) Assessment & Plan Acute pancreatitis Vasovagal syncope HTN (hypertension) Mixed hyperlipidemia COPD (chronic obstructive pulmonary disease) Former tobacco use History of prostate cancer BPH with obstruction/lower urinary tract symptoms Respiratory insufficiency Shock 84-year-old male who presents for acute abdominal pain and sepsis. He has a history of COPD, hypertension, mixed hyperlipidemia, high-grade prostate cancer status post external beam radiation and hormonal therapy, and is a former smoker. He recently underwent a lung biopsy for a lung nodule by Dr. Castillo in [place], [place] on 08/26/2025. Subsequently, he was seen at [facility] for acute abdominal pain and sepsis and was transferred to [facility] for further evaluation. He was diagnosed with pancrea titis and acute cholecystitis and was admitted to the ICU. General surgery was consulted, and he underwent a laparoscopic cholecystectomy by Dr. Jaramillo on 08/28/2025. Remains on ventilator. Remains on pressors. Attempting to wean as tolerated. Assessment & Plan 1. Shock, likely Systemic Inflammatory Response Syndrome (SIRS) secondary to pancreatitis/acute cholecystitis. Status post laparoscopic cholecystectomy with intraoperative cholangiogram on 08/28/2025. The cholangiogram showed excellent filling of the cystic, common right and left hepatic ducts with good flow of contrast into the duodenum without any retained stone or filling defect. The biliary tree, including the pancreatic duct, was significantly dilated, but no obstruction or retained stone was observed. Continue fluid resuscitation and pressor support. Gradually wean off pressors as tolerated. 2. Acute cholecystitis. Status post cholecystectomy. The general surgery team is actively managing the condition. A drain remains in place. Currently NPO until pressors are discontinued as per the surgical team's recommendation. 3. Acute pancreatitis. Tube feeding will be resumed once pressors are weaned and with the approval of the surgical team. Lipase level, which was 11,000 at the outside hospital, has decreased to 576 upon admission. There isno definitive radiographic evidence of pancreatitis based on imaging conducted at this hospital. 4. Acute kidney injury. Creatinine level peaked at 1.85, likely due to shock/SIRS, but has since improved to 1.57. Continueto monitor intake and output. Adjust medication dosages based on renal function when appropriate and avoid nephrotoxic agents when feasible. 5. Syncope. Experienced a syncopal episode accompanied by hypotension during transport to the hospital. This was managed with resuscitation and monitoring and was possibly related to a vasovagal event or hypotension secondary to sepsis. 6. Chronic obstructive pulmonary disease (COPD). Continue bronchodilator therapy. Currently on mechanical ventilation. Ventilator settings will be weaned as tolerated, with the aim of initiating spontaneous breathing trials later today or tomorrow once settings are appropriately reduced. 7. Hypertension. Previously on lisinopril, which is currently being held due to hypotension, shock, and acute kidneyinjury. 8. Hyperlipidemia. Statin therapy will be resumed when deemed appropriate. 9. Deep vein thrombosis (DVT) prophylaxis. Administer subcutaneous heparin. 10. Peptic ulcer prophylaxis. Continue intravenous Protonix. Patient is critically ill secondary to tenuous respiratory and hemodynamic status and has high riskof life-threatening decompensation in condition. As such, the patient requires continuous monitoring and frequent reassessment for consideration of adjustment in management to minimize this risk. I personally reassessed the patient multiple times today. Critical care time : 45 minutes spent by me personally and independently.(This excludes time spent performing separately reportable procedures and services). Critical care time includes high complexity decision making to assess, manipulate, and support vital organ system failure in this individual who has impairment of one or more vital organ systems such that there is a high probability of imminent or life threatening deterioration in the patient???s condition. 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 *Exception: for ICU patients or for instances where consent for use was not given, active listeningwas used only for dictation and was not used to record patient or family. * Hermes Jaramillo MD - 08/29/2025 7:24 AM EST Patient Name: Loc Thurman Date of : 1940 [id number] Surgery Progress Note Date of visit: 08/29/2025 Subjective Subjective: Stable overnight. Weaning vent. Some drainage around VARGAS. Objective Objective: BP 127/71 Pulse 64 Temp 98.1 ??F (36.7 ??C) (Axillary) Resp 16 Ht 172.7 cm (67.99 ) Wt 93.4 kg (206 lb) SpO2 98% BMI 31.33 kg/m?? Intake/Output Summary (Last 24 hours) at 08/29/2025 0724 Last data filed at 08/29/2025 0637 Gross per 24 hour Intake 4976.65 ml Output 1685 ml Net 3291.65 ml CV: Rhythm regular and rate regular L: Clear to auscultation bilaterally Abd: Bowel sounds positive , soft, less distended. Dressings c/d/I. VARGAS serous Ext: No cyanosis, clubbing, edema Recent labs that are back at this time have been reviewed. Base deficit improved to 1.4, Lactate improving. WBC improving to 15K Assessment/ Plan: Problem List Items Addressed This Visit Gastrointestinal Abdominal * (Principal) Acute pancreatitis - Primary- Improving. Continue current management, possible extubation today. Hold TF until off pressors. Relevant Medications sennosides-docusate (PERICOLACE) 8.6-50 MG per tablet 2 tablet polyethylene glycol (MIRALAX) packet 17 g bisacodyl (DULCOLAX) EC tablet 5 mg bisacodyl (DULCOLAX) suppository 10 mg piperacillin-tazobactam (ZOSYN) 3.375 g IVPB in 100 mL NS MBP (CD) ondansetron ODT (ZOFRAN-ODT) disintegrating tablet 4 mg ondansetron (ZOFRAN) injection 4 mg omeprazole (priLOSEC) 20 MG capsule phenylephrine (KAYLYNN-SYNEPHRINE) 50 mg in sodium chloride 0.9 % 250 mL infusion pantoprazole (PROTONIX) injection 40 mg Other Relevant Orders Insert Central Line At Bedside (Completed) Insert Arterial Line (Completed) Other Visit Diagnoses Cholecystitis Relevant Medications sodium chloride 0.9 % bolus 1,000 mL (Completed) sennosides-docusate (PERICOLACE) 8.6-50 MG per tablet 2 tablet polyethylene glycol (MIRALAX) packet 17 g bisacodyl (DULCOLAX) EC tablet 5 mg bisacodyl (DULCOLAX) suppository 10 mg piperacillin-tazobactam (ZOSYN) 3.375 g IVPB in 100 mL NS MBP (CD) (Completed) piperacillin-tazobactam (ZOSYN) 3.375 g IVPB in 100 mL NS MBP (CD) ondansetron ODT (ZOFRAN-ODT) disintegrating tablet 4 mg ondansetron (ZOFRAN) injection 4 mg omeprazole (priLOSEC) 20 MG capsule phenylephrine (KAYLYNN-SYNEPHRINE) 50 mg in sodium chloride 0.9 % 250 mL infusion pantoprazole (PROTONIX) injection 40 mg Other Relevant Orders Tissue Pathology Exam Active Hospital Problems Diagnosis POA Acute pancreatitis [K85.90] Yes Respiratory insufficiency [R06.89] Yes Shock [R57.9] Unknown Vasovagal syncope [R55] Yes HTN (hypertension) [I10] Yes Mixed hyperlipidemia [E78.2] Yes COPD (chronic obstructive pulmonary disease) [J44.9] Yes Former tobacco use [Z87.891] Not Applicable History of prostate cancer [Z85.46] Not Applicable BPH with obstruction/lower urinary tract symptoms [N40.1, 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 Hermes Jaramillo MD 08/29/2025 07:24 EST * Hermes Jaramillo MD - 08/28/2025 11:22 AM EST Patient Name: Loc Thurman Date of : 1940 [id number] Surgery Post - Operative Note Date of visit: 08/28/2025 Subjective Subjective: Stable since OR. Objective Objective: BP 134/51 Pulse 110 Temp 98.1 ??F (36.7 ??C) Resp 12 Ht 172.7 cm (68 ) Wt 93.4 kg (206 lb) SpO2 95% BMI 31.32 kg/m?? CV: Rate regular and rhythm regular L: Clear to auscultation bilaterally ABD: Soft, appropriately tender. Dressings clean, dry and intact , VARGAS serous EXT: No cyanosis, clubbing or edema Assessment/ Plan: Stable after Lap CCY, remains critically ill. Continue Pulmonary toilet Problem List Items Addressed This Visit Gastrointestinal Abdominal * (Principal) Acute pancreatitis - Primary Relevant Medications sodium chloride 0.9 % bolus 1,000 mL (Completed) sennosides-docusate (PERICOLACE) 8.6-50 MG per tablet 2 tablet polyethylene glycol (MIRALAX) packet 17 g bisacodyl (DULCOLAX) EC tablet 5 mg bisacodyl (DULCOLAX) suppository 10 mg piperacillin-tazobactam (ZOSYN) 3.375 g IVPB in 100 mL NS MBP (CD) (Completed) piperacillin-tazobactam (ZOSYN) 3.375 g IVPB in 100 mL NS MBP (CD) ondansetron ODT (ZOFRAN-ODT) disintegrating tablet 4 mg ondansetron (ZOFRAN) injection 4 mg omeprazole (priLOSEC) 20 MG capsule pantoprazole (PROTONIX) EC tablet 40 mg phenylephrine (KAYLYNN-SYNEPHRINE) 50 mg in sodium chloride 0.9 % 250 mL infusion Other Relevant Orders Insert Central Line At Bedside (Completed) Insert Arterial Line (Completed) Other Visit Diagnoses Cholecystitis Relevant Medications sodium chloride 0.9 % bolus 1,000 mL (Completed) sennosides-docusate (PERICOLACE) 8.6-50 MG per tablet 2 tablet polyethylene glycol (MIRALAX) packet 17 g bisacodyl (DULCOLAX) EC tablet 5 mg bisacodyl (DULCOLAX) suppository 10 mg piperacillin-tazobactam (ZOSYN) 3.375 g IVPB in 100 mL NS MBP (CD) (Completed) piperacillin-tazobactam (ZOSYN) 3.375 g IVPB in 100 mL NS MBP (CD) ondansetron ODT (ZOFRAN-ODT) disintegrating tablet 4 mg ondansetron (ZOFRAN) injection 4 mg omeprazole (priLOSEC) 20 MG capsule pantoprazole (PROTONIX) EC tablet 40 mg phenylephrine (KAYLYNN-SYNEPHRINE) 50 mg in sodium chloride 0.9 % 250 mL infusion Other Relevant Orders Tissue Pathology Exam Active Hospital Problems Diagnosis POA Acute pancreatitis [K85.90] Yes Respiratory insufficiency [R06.89] Yes Shock [R57.9] Unknown Vasovagal syncope [R55] Yes HTN (hypertension) [I10] Yes Mixed hyperlipidemia [E78.2] Yes COPD (chronic obstructive pulmonary disease) [J44.9] Yes Former tobacco use [Z87.891] Not Applicable History of prostate cancer [Z85.46] Not Applicable BPH with obstruction/lower urinary tract symptoms [N40.1, 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 Hermes Jaramillo MD 08/28/2025 11:22 EST * Cristian Mckee, - 08/28/2025 9:45 AM EST Intensive Care Follow-up Hospital: LOS: 1 day Mr. Loc Thurman, 84 y.o. male is followed for: Acute pancreatitis History of present illness: Loc Thurman is an 84-year-old male with a history of COPD, hypertension, mixed hyperlipidemia, high-grade prostate cancer status post external beam radiation and hormonal therapy, and former tobacco use, who was admitted for evaluation and management of acute abdominal pain, found to have acute c holecystitis with sepsis, and underwent emergent laparoscopic cholecystectomy with intraoperative cholangiogram. He presented with acute onset abdominal pain, nausea, and vomiting, initially thought to be due to pancreatitis based on elevated lipase (11,000 at outside hospital, 576 on admission), transaminitis,and CT findings of a distended gallbladder with pericholecystic fluid and wall thickening. On transfer, he was hypotensive and developed septic shock requiring vasopressors and ICU admission. Repeat CT at this facility confirmed acute cholecystitis with significant gallbladder dilation, wall thickening, and pericholecystic fluid, but no definitive evidence of pancreatitis or biliary obstruction. He received broad- spectrum antibiotics and aggressive resuscitation, but remained critically ill with rising lactate and leukocytosis (WBC up to 42,000). Emergent laparoscopic cholecystectomy with intraoperative cholangiogram was performed, confirming acute cholecystitis and a dilated biliary tree without obstruction or retained stone; the remainder of the intra-abdominal contents were viable without evidence of ischemia or other source of sepsis. Return to the ICU on pressors and mechanical ventilation Subjective Interval History: Patient on mechanical ventilation on arrival back to the ICU. pH is 7.18 postsurgery I did discuss the case Dr. Jaramillo. We released me to rule out acute cholecystitis as an ongoing factor with no signs of bowel ischemia. His ongoing shock and lactic acidosis likely being driven by acute pancreatitis. The patient's past medical, surgical and social history were reviewed and updated in Epic as appropriate. Objective Infusions: norepinephrine, 0.02-0.3 mcg/kg/min, Last Rate: Stopped (08/28/25231) phenylephrine, 0.5-3 mcg/kg/min, Last Rate: 0.5 mcg/kg/min (08/28/25912) sodium bicarbonate 150 mEq in D5W, 100 mL/hr, Last Rate: 100 mL/hr (08/28/25 075) vasopressin, 0.03 Units/min, Last Rate: 0.03 Units/min (08/28/25755) Medications: arformoterol, 15 mcg, Nebulization, BID - RT ipratropium-albuterol, 3 mL, Nebulization, 4x Daily - RT montelukast, 10 mg, Oral, Nightly pantoprazole, 40 mg, Oral, Q AM piperacillin-tazobactam, 3.375 g, Intravenous, Q8H potassium chloride ER, 20 mEq, Oral, Once sodium chloride, 10 mL, Intravenous, Q12H I reviewed the patient's medications. Vital Sign Min/Max for last 24 hours Temp Min: 97.4 ??F (36.3 ??C) Max: 98.7 ??F (37.1 ??C) BP Min: 62/37 Max: 121/56 Pulse Min: 93 Max: 149 Resp Min: 12 Max: 20 SpO2 Min: 85 % Max: 100 % Flow (L/min) (Oxygen Therapy) Min: 2 Max: 2 Input/Output for last 24 hour shift 08/27 701 - 08/28 700 In: 1375 [I.V.:25] Out: 750 [Urine:750] Mode: VC+/AC FiO2 (%): [100 %] 100 % S RR: [10-16] 16 S VT: [460 mL] 460 mL PEEP/CPAP (cm H2O): [5 cm H20] 5 cm H20 MAP (cm H2O): [9.4] 9.4 GENERAL : Sedated, lying in bed, NAD RESPIRATORY/THORAX : ET tube in place, Coarse breath sounds bilaterally CARDIOVASCULAR : Normal S1/S2, RRR. 1+ lower ext edema. GASTROINTESTINAL : Soft, NT/ND. BS x 4 normoactive. No hepatosplenomegaly. MUSCULOSKELETAL : No cyanosis, clubbing, or ischemia NEUROLOGICAL: Sedated, Moving all ext. Results from last 7 days Lab Units 08/28/25 0843 08/28/25 0613 08/27/25 1943 WBC 10*3/mm3 -- 42.13* 15.69* HEMOGLOBIN g/dL -- 9.2* 11.1* HEMOGLOBIN, POC g/dL 7.8* -- -- PLATELETS 10*3/mm3 -- 183 171 Results from last 7 days Lab Units 08/28/25 0613 08/28/25 0135 08/27/25 2234 08/27/25 1943 SODIUM mmol/L 147* 143 -- 143 POTASSIUM mmol/L 3.6 3.7 -- 3.5 CO2 mmol/L 15.5* 17.9* -- 15.6* BUN mg/dL 29.7* 25.7* -- 20.6 CREATININE mg/dL 1.81* 1.85* -- 1.49* MAGNESIUM mg/dL -- 1.8 1.9 -- GLUCOSE mg/dL 67 78 -- 110* Estimated Creatinine Clearance: 32.5 mL/min (A) (by C-G formula based on SCr of 1.81 mg/dL (H)). Results from last 7 days Lab Units 08/28/25 0843 08/28/25 0718 PH, ARTERIAL pH units 7.18* 7.273* PCO2, ARTERIAL mm Hg -- 31.2* PO2 ART mm Hg -- 87.0 I reviewed the patient's new clinical results. I reviewed the patient's new imaging results/reports including actual images and agree with reports. Imaging Results (Last 24 Hours) Procedure Component Value Units Date/Time FL Cholangiogram Operative - In process [[id number]] Resulted: 08/28/25828 Updated: 08/28/25845 This result has not been signed. Information might be incomplete. XR Chest 1 View [[id number]] Collected: 08/28/2544 Updated: 08/28/25547 Narrative: XR CHEST 1 VW Date of Exam: 08/28/2025 5:23 AM EST Indication: central line placement. Comparison: 08/27/2025. Findings: Right internal jugular CVC catheter present with the tip in the proximal SVC. There are no airspaceconsolidations. No pleural fluid. No pneumothorax. Nodular opacities within the left lung base on CT are not appreciated on this study. The pulmonary vasculature appears within normal limits. The cardiac and mediastinal silhouette appear unremarkable. No acute osseous abnormality identified. Impression: Impression: Right internal jugular CVC catheter with the tip in the proximal SVC. No pneumothorax. No acute cardiopulmonary process. Electronically Signed: Nena Encarnacion MD 08/28/2025 5:45 AM EST Workstation ID: [id number] CT Abdomen Pelvis Without Contrast [[id number]] Collected: 08/27/252219 Updated: 08/27/252227 Narrative: CT ABDOMEN PELVIS WO CONTRAST Date of Exam: 08/27/2025 10:08 PM EST Indication: Evaluate pancreatitis, possible cholecystitis. Comparison: None available. Technique: Axial CT images were obtained of the abdomen and pelvis without the administration of contrast. Reconstructed coronal and sagittal images were also obtained. Automated exposure control anditerative construction methods were used. Findings: Lung Bases: There is a mass present within the left lower lobe near the base measuring 2.7 x 3.4 cm(series 4 image 17). An additional adjacent pleural-based nodule is present measuring up to 1.3 cm (series 4 image 17). Surrounding smaller nodules are present. Right lung base is clear. No significant effusion. Limited evaluation of the solid organs due to lack of intravenous contrast. Limited evaluation of the hollow organs due to lack of oral contrast. Liver: Liver appears enlarged. No definite focal lesions. No evidence of ascites. Biliary/Gallbladder: The gallbladder is significantly dilated. Wall thickening is present with significant stranding and free fluid present. No definite gallstone identified. There is dilatation of the common bile duct measuring up to 1.4 cm. This extends to the ampulla. Stranding is seen surrounding the common bile duct. Spleen: Spleen is normal in size and CT density. Pancreas: No significant stranding identified surrounding the pancreas. No evidence of ductal dilatation. No focal mass or abnormal collection identified.. Kidneys: Kidneys are normal in size. Nonobstructing renal calculi are present bilaterally. No obstructing calculus identified. No evidence of hydronephrosis. Adrenals: Adrenal glands are unremarkable. Retroperitoneal/Lymph Nodes/Vasculature: No retroperitoneal adenopathy is identified. Gastrointestinal/Mesentery: The bowel loops are non-dilated without wall thickening or mass. Currie colonic diverticulosis is present. No significant inflammatory changes present. The appendix is not visualized.. No evidence of obstruction. No free air. No mesenteric fluid collections identified. Mesenteric vasculature appears unremarkable. No evidence of hernia. No significant stool burden. Bladder: The bladder is normal. Genital: Unremarkable Bony Structures: Visualized bony structures are consistent with the patient's age. No acute osseousabnormality. Impression: Impression: 1.Findings consistent with acute cholecystitis with significant dilatation of the gallbladder with wall thickening and significant stranding and free fluid present. No definite gallstone identified. There is dilatation of the common bile duct extending to the ampulla with stranding seen surroundingthe common bile duct. 2.Mass present within the left lower lobe near the base measuring up to 3.4 cm with surrounding smaller nodules. Findings are suspicious for malignancy. No previous imaging available for comparison. 3.Ancillary findings as described above. Electronically Signed: Nena Encarnacion MD 08/27/2025 10:25 PM EST Workstation ID: [id number] Assessment & Plan Impression Acute pancreatitis Vasovagal syncope HTN (hypertension) Mixed hyperlipidemia COPD (chronic obstructive pulmonary disease) Former tobacco use History of prostate cancer BPH with obstruction/lower urinary tract symptoms Respiratory insufficiency Shock Plan Acute pancreatitis: Acute cholecystitis: - Status post cholecystectomy with no signs of biliary obstruction - Operative cholangiogram showed no obstruction - Continue broad-spectrum antibiotics - Follow up cultures -Repeat ABG at 2 PM -Trend lactate every 6 hours - Start bicarb drip 150 mEq at 150 cc/h Respiratory insufficiency: - Returned to ICU on mechanical ventilation - Utilized propofol and fentanyl for sedation - Continue mechanical ventilation to wean oxygen to saturation greater than 88% Acute kidney injury likely secondary to shock: - Monitor strict I's and O's - Place Maurer catheter COPD: - Start Brovana, budesonide, and albuterol nebulizers History of prostate cancer Multiple pulmonary nodules - Patient underwent bronchoscopy at outside facility on 08/26/2025 results still pending. - Likely not contributing to his current state. Nutrition: - Keep patient NPO for now - Okay for medications DVT prophylaxis: - Subcu heparin I conducted multidisciplinary rounds and the plan of care was discussed with the multidisciplinary team at that time. In attendance at multidisciplinary rounds was clinical pharmacist, dietitian, nursing staff, and case management. I discussed the patient's findings and my recommendations with nursing staff Critical Care time spent in direct patient care: 35 minutes (excluding procedure time, if applicable) including high complexity decision making to assess, manipulate, and support vital organ system failure in this individual who has impairment of one or more vital organ systems such that there is ahigh probability of imminent or life threatening deterioration in the patient's condition. Bambi Mckee DO Pulmonary, Critical care and Sleep Medicine * Hermes Jaramillo MD - 08/28/2025 7:20 AM EST Patient Name: Loc Thurman Date of : 1940 [id number] Surgery Progress Note Date of visit: 08/28/2025 Subjective Subjective: Despite aggressive interventions patient has remained critically ill and deteriorated overnight. He is now on 2 pressors (vasopressin and Levophed) as well as a bicarb drip. He remains extubated and awake and alert. He reports some abdominal pain in the upper abdomen. His lactate has been rising despite aggressive resuscitation. Objective Objective: BP 105/49 Pulse 100 Temp 97.5 ??F (36.4 ??C) Resp 20 Ht 172.7 cm (68 ) Wt 93.4 kg (206 lb) SpO2 92% BMI 31.32 kg/m?? Intake/Output Summary (Last 24 hours) at 08/28/2025 0720 Last data filed at 08/28/2025 0607 Gross per 24 hour Intake 1375 ml Output 750 ml Net 625 ml CV: Rhythm regular and rate regular L: Clear to auscultation bilaterally Abd: Bowel sounds hypoactive, soft, distended, tender to deep palpation without peritonitis Ext: No cyanosis, clubbing, edema Recent labs that are back at this time have been reviewed. pH this morning 7.27 with a pCO2 of 31 and base deficit of 11. Glucose 147. Current white count 42,000 hemoglobin 9.2 and plate count 183. INR is 1.4. Assessment/ Plan: Problem List Items Addressed This Visit Gastrointestinal Abdominal * (Principal) Pancreatitis - Primary- He appears to have more cholecystitis than pancreatitis, especially on CT scan and his clinical behavior. He has signs of gram-negative sepsis. I think the only reasonable course of action is emergent laparoscopic cholecystectomy, possible open. I have also warned the patient that it is possible that his ongoing sepsis may have resulted in colonic ischemia which we will be able to evaluate operatively. I think this plan would be better than percutaneous cholecystostomy, which would drain the gallbladder but would not evaluate the colon in any meaningful way especially given the patient's overwhelming sepsis. The patient is agreeable with this plan and wishes to proceed. I have warned him of the risks and benefits including but not limited to mechanical ventilation, heart attack stroke and . He understands and agrees to proceed. Relevant Medications sodium chloride 0.9 % bolus 1,000 mL (Completed) sennosides-docusate (PERICOLACE) 8.6-50 MG per tablet 2 tablet polyethylene glycol (MIRALAX) packet 17 g bisacodyl (DULCOLAX) EC tablet 5 mg bisacodyl (DULCOLAX) suppository 10 mg piperacillin-tazobactam (ZOSYN) 3.375 g IVPB in 100 mL NS MBP (CD) (Completed) piperacillin-tazobactam (ZOSYN) 3.375 g IVPB in 100 mL NS MBP (CD) ondansetron ODT (ZOFRAN-ODT) disintegrating tablet 4 mg ondansetron (ZOFRAN) injection 4 mg omeprazole (priLOSEC) 20 MG capsule pantoprazole (PROTONIX) EC tablet 40 mg phenylephrine (KAYLYNN-SYNEPHRINE) 50 mg in sodium chloride 0.9 % 250 mL infusion Other Relevant Orders Insert Central Line At Bedside (Completed) Insert Arterial Line (Completed) Active Hospital Problems Diagnosis POA Pancreatitis [K85.90] Yes Vasovagal syncope [R55] Unknown HTN (hypertension) [I10] Unknown Mixed hyperlipidemia [E78.2] Unknown COPD (chronic obstructive pulmonary disease) [J44.9] Unknown Former tobacco use [Z87.891] Not Applicable History of prostate cancer [Z85.46] Not Applicable BPH with obstruction/lower urinary tract symptoms [N40.1, N13.8] Unknown Resolved Hospital Problems No resolved problems to display. Hermes Jaramillo MD 08/28/2025 07:20 EST documented in this encounter H&P Notes * Linda Rubin MD - 08/27/2025 11:40 PM EST ANALYTICS ARCHITECT PROGRESS NOTE SUBJECTIVE Loc 84 y.o. male is followed for:No chief complaint on file. Pancreatitis Vasovagal syncope HTN (hypertension) Mixed hyperlipidemia COPD (chronic obstructive pulmonary disease) Former tobacco use History of prostate cancer BPH with obstruction/lower urinary tract symptoms As an Emergency Veterinarian, we provide an integrated approach to the ICU patient and family, medical management of comorbid conditions, including but not limited to electrolytes, glycemic control, organ dysfunction, lead interdisciplinary rounds and coordinate the care with all other services, including those from other specialists. HPI: Loc is a 84 y.o. male with PMH COPD, history of pancreatitis, hypertension, prostate cancer status post XRT and hormonal therapy 2014, hyperlipidemia, new left lung mass [facility] because of evaluation of possible pancreatitis and cholecystitis. Patient underwent bronchoscopy yesterday for lung nodules/mass. Did have scant hemoptysis mixed in with saliva yesterday evening postprocedure. Has not had any olga hemoptysis orno further episodes. Today he woke up with upper abdominal pain after eating breakfast as well as nausea and vomiting. Went to [facility] and during transport her head syncopal episode with blood pressure dropping. Blood pressure improved with IV fluids. Labs significant for lipase 11,000. CT chest abdomen pelvis showed distended gallbladder with questionable gallbladder wall thickening and. Cholecystic fluid. He was then transferred to our facility and admitted to the hospitalist service. Dr. Jaramillo with general surgery saw patient and ordered CT abdomen pelvis. Unfortunately patient developed hypotension requiring vasopressor and was subsequently transferred to the ICU. Patient seen at bedside. Alert and oriented x 3. Son at bedside. Complains of some abdominal pain 4out of 10 that is improved. Has been having nausea and vomiting. No vomiting or recent bleed. No chest pain or shortness of breath. No hemoptysis. PMH: He has no past medical history on file. PSxH: He has no past surgical history on file. Medications: No current facility-administered medications on file prior to encounter. Current Outpatient Medications on File Prior to Encounter Medication Sig diphenhydrAMINE (BENADRYL) 25 mg capsule Take 1 capsule by mouth At Night As Needed for Sleep. ferrous gluconate (FERGON) 324 MG tablet Take 1 tablet by mouth Daily With Breakfast. Glycopyrrolate-Formoterol (Bevespi Aerosphere) 9-4.8 MCG/ACT aerosol Inhale. lisinopril (PRINIVIL,ZESTRIL) 10 MG tablet Take 1.5 tablets by mouth 2 (Two) Times a Day. montelukast (SINGULAIR) 10 MG tablet Take 1 tablet by mouth Every Night. omeprazole (priLOSEC) 20 MG capsule Take 1 capsule by mouth Daily. vitamin B-12 (CYANOCOBALAMIN) 1000 MCG tablet Take 1 tablet by mouth Daily. vitamin C (ASCORBIC ACID) 250 MG tablet Take 1 tablet by mouth Daily. albuterol sulfate HFA 108 (90 Base) MCG/ACT inhaler Inhale 2 puffs Every 4 (Four) Hours As Needed for Wheezing. cetirizine (zyrTEC) 5 MG tablet Take 1 tablet by mouth Daily. (Patient not taking: Reported on 08/27/2025) Allergies: He has no known allergies. FH: His family history is not on file. SH: He reports that he quit smoking about 35 years ago. His smoking use included cigarettes. He hasnever used smokeless tobacco. He reports that he does not drink alcohol and does not use drugs. The patient's relevant past medical, surgical and social history were reviewed and updated in [facility] as appropriate. Review of Systems As described in the HPI. OBJECTIVE Vitals: Temp: 97.4 ??F (36.3 ??C) (08/27/252320) Temp Min: 97.4 ??F (36.3 ??C) Max: 98.7 ??F (37.1 ??C) Temp core: BP: (!) 89/48 (08/27/252323) BP Min: 89/48 Max: 101/56 MAP (non-invasive) Noninvasive MAP (mmHg): 73 (08/27/252323) Noninvasive MAP (mmHg) Av.4 Min:68 Max: 76 Pulse: 102 (08/27/252323) Pulse Min: 95 Max: 105 Resp: 18 (08/27/252320) Resp Min: 18 Max: 18 SpO2: 95 % (08/27/252323) SpO2 Min: 85 % Max: 95 % Device: nasal cannula (08/27/252321) Flow Rate: No data recorded 08/27/252099 Weight: 93.4 kg (206 lb) Intake/Ouptut 24 hrs (7:00AM - 6:59 AM) Intake & Output (last 2 days) 08/26 Urine (mL/kg/hr) 100 Total Output 100 Net -100 Medications (drips): lactated ringers, Last Rate: 100 mL/hr (08/27/252329) Physical Examination Telemetry: Rhythm: normal sinus rhythm, sinus tachycardia (08/27/252317) Constitutional: No acute distress. Cardiovascular: RRR. Respiratory: Normal breath sounds Decreased bases No resp distress Abdominal: Soft with generalized tenderness. Distended. Not rigid, no guarding. Extremities: No Edema Neurological: Alert, Oriented, Cooperative. Best Eye Response: 4-->(E4) spontaneous (08/27/252058) Best Motor Response: 6-->(M6) obeys commands (08/27/252058) Best Verbal Response: 5-->(V5) oriented (08/27/252058) [place] Coma Scale Score: 15 (08/27/252058) Lines, Drains & Airways Active LDAs Name Placement date Placement time Site Days Peripheral IV 20 G Anterior;Proximal;Right Forearm -- -- Forearm -- Peripheral IV 08/27/252330 18 G Anterior;Right;Upper Arm 08/27/252330 Arm less than 1 Results Reviewed: Laboratory Microbiology Radiology Pathology Hematology: Results from last 7 days Lab Units 08/27/251942 WBC 10*3/mm3 15.69* HEMOGLOBIN g/dL 11.1* MCV fL 93.4 PLATELETS 10*3/mm3 171 Results from last 7 days Lab Units 08/27/251942 NEUTROS ABS 10*3/mm3 14.59* LYMPHS ABS 10*3/mm3 0.43* EOS ABS 10*3/mm3 0.00 Chemistry: Estimated Creatinine Clearance: 39.5 mL/min (A) (by C-G formula based on SCr of 1.49 mg/dL (H)). Results from last 7 days Lab Units 08/27/251942 SODIUM mmol/L 143 POTASSIUM mmol/L 3.5 CHLORIDE mmol/L 110* CO2 mmol/L 15.6* BUN mg/dL 20.6 CREATININE mg/dL 1.49* GLUCOSE mg/dL 110* Results from last 7 days Lab Units 08/27/251942 CALCIUM mg/dL 8.1* Hepatic Panel: Results from last 7 days Lab Units 08/27/251942 ALBUMIN g/dL 3.4* TOTAL PROTEIN g/dL 5.4* BILIRUBIN mg/dL 1.0 AST (SGOT) U/L 456* ALT (SGPT) U/L 275* ALK PHOS U/L 106 Coagulation Labs: Cardiac Labs: Results from last 7 days Lab Units 08/27/251942 HSTROP T ng/L 39* Biomarkers: Results from last 7 days Lab Units 08/27/251942 LACTATE mmol/L 7.2* PROCALCITONIN ng/mL 68.30* FERRITIN ng/mL 160.00 U/A COVID-19 No results found for: COVID19 Arterial Blood Gases: Results from last 7 days Lab Units 08/27/252247 PH, ARTERIAL pH units 7.278* PCO2, ARTERIAL mm Hg 32.9* PO2 ART mm Hg 67.0* FIO2 % 21 Images: CT Abdomen Pelvis Without Contrast Result Date: 08/27/2025 Impression: 1.Findings consistent with acute cholecystitis with significant dilatation of the gallbladder with wall thickening and significant stranding and free fluid present. No definite gallstone identified. There is dilatation of the common bile duct extending to the ampulla with stranding seensurrounding the common bile duct. 2.Mass present within the left lower lobe near the base measuringup to 3.4 cm with surrounding smaller nodules. Findings are suspicious for malignancy. No previous imaging available for comparison. 3.Ancillary findings as described above. Electronically Signed: Nena Encarnacion MD 08/27/2025 10:25 PM EST Workstation ID: [id number] Echo: Results: Reviewed. I reviewed the patient's new laboratory and imaging results. I independently reviewed the patient's new images. Medications: Reviewed. Assessment A/P Hospital: LOS: 0 days ICU: 22m Active Hospital Problems Diagnosis POA Pancreatitis [K85.90] Yes Vasovagal syncope [R55] Unknown HTN (hypertension) [I10] Unknown Mixed hyperlipidemia [E78.2] Unknown COPD (chronic obstructive pulmonary disease) [J44.9] Unknown Former tobacco use [Z87.891] Not Applicable History of prostate cancer [Z85.46] Not Applicable BPH with obstruction/lower urinary tract symptoms [N40.1, N13.8] Unknown Loc is a 84 y.o. male admitted on 08/27/2025 with Pancreatitis [K85.90] Pancreatitis, acute [K85.90] Assessment/Management/Treatment Plan: Acute cholecystitis Septic shock Lactic acidosis of clinical significance Multiple lung nodules Left lower lobe 2.7 x 3.4 cm mass PMH: COPD, HTN, HLD, high-grade prostate cancer s/p initiation of external beam radiation and hormonal therapy (2014), and tobacco use Pulmonary [address] abdomen pelvis did show mass left lower lobe 2.7 x 3.4 cm and pleural-based nodule adjacent 1.3 cm, smaller nodules present. Patient did have bronchoscopy yesterday at outside hospital. Do not have results or procedure notes. Cardiovascular Initial lactate 7.2 repeat 7.6. Received IV fluids at outside hospital and additional 1 L normal saline on the floor. Will give additional 1 L LR. Continue LR at 150. Levophed for MAP goal greater than 65 and SBP >100. Continue to trend lactic acid No echo on file. No known history of heart failure. Troponin 39, repeat 34. EKG reviewed, normal sinus, no ischemic changes. No chest pain. Neuro No acute issues GI/Hepatology CT abdomen pelvis reviewed with general surgery. Acute cholecystitis, no evidence of pancreatitis on CT scan despite lipase 576, no free air or fluid and no bowel ischemia. Plan for CCY in a.m. pending patient's status. May need cholecystostomy tube if unable to have surgery LFTs 275/456, normal alk phos and T. bili. Acute hepatitis panel negative. No history of liver disease. CT with enlarged liver but no focal lesions or ascites. Repeat CMP in a.m. Renal Creatinine 1.49. Potassium 3.5, replete. Mag added on. Bicarb 15.ABG 7.2 on room air. Given2 A of bicarb. Will repeat BMP in 4 hours. Replete calcium. ID/Antibiotics Zosyn. Order blood cultures. Hematology Hemoglobin 11.1, platelets within normal limits. SCDs for DVT prophylaxis. Hold chemical given OR in AM. Endocrine Accu-Chek q6hr. No results found for: HGBA1C Results from last 7 days Lab Units 08/27/25 2312 GLUCOSE mg/dL 97 Diet: NPO Diet NPO Type: Sips with Meds No active supplement orders Advance Directives: Code Status and Medical Interventions: CPR (Attempt to Resuscitate); Full Support Ordered at: 08/27/252004 Code Status (Patient has no pulse and is not breathing): CPR (Attempt to Resuscitate) Medical Interventions (Patient has pulse or is breathing): Full Support Level Of Support Discussed With: Patient VTE Prophylaxis: Mechanical VTE prophylaxis orders are present. Disposition: ICU Plan of care and goals reviewed during interdisciplinary rounds. I discussed the patient's findings and my recommendations with patient RN hospitalist son general surgeon Time: 40 minutes of critical care provided. This time excludes other billable procedures. Time doesinclude preparation of documents, medical consultations, review of old records, and direct bedside care. Patient is at high risk for life-threatening deterioration due to Sepsis. He has a high risk of imminent or life-threatening deterioration, which requires the highest level of physician preparedness to intervene urgently. I devoted my full attention to the direct care of this patient for the amount of time indicated above. Time spent with family or surrogate(s) is included only if the patient was incapable of providing the necessary information or participating in medical decision making. Linda Rubin MD Pulmonary Critical Care Medicine * Librado Bangura MD - 08/27/2025 7:10 PM EST Images from the original note were not included. [facility] HISTORY AND PHYSICAL Patient Name: Loc Thurman : 1940 Primary Care Physician: Provider, No Known Date of admission: 08/27/2025 Subjective Subjective Chief Complaint: Abdominal pain with nausea and vomiting HPI: Loc Thurman is a 84 y.o. 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 via transfer from [facility] for evaluation of pancreatitis and distended gallbladder. History of Present Illness Reason for Admit: Abdominal pain with nausea vomiting The patient presents to [facility] via transfer from [facility] for evaluation of abdominal pain with nausea and vomiting. He reports experiencing abdominal pain and chest discomfort, which began this morning after consuming a bowl of cereal for breakfast. The pain, described as a constant ache across his lower chest andupper abdomen, initially peaked at a severity of 10/10. [facility], morphine was administered, but it was ineffective and caused an adverse reaction. Patient is resting comfortably in bed, rating his current pain level is approximately 4/10. He also reports persistent nausea and multiple episodes of vomiting today. He has not experienced any diarrhea. His last fluid intake was coffee with breakfast. He was able to urinate and have a bowel movement this morning, but subsequent attempts toobtain a urine sample were unsuccessful. He experienced an episode of syncope during transportation due to a significant drop in blood pressure, necessitating ambulance transport. His blood pressure was recorded as 130/80 at the hospital, but it decreased to 83 systolic prior to transfer, requiring fluid administration. He is currently onlisinopril 30 mg for blood pressure management. He underwent a bronchoscopy yesterday due to the presence of lung nodules, a procedure he toleratedwell without complications. He felt well upon discharge. He has been under observation for two lungnodules in his lower lungs for several years, and a nodule in his upper left lung was discovered about a year ago. A recent biopsy of the upper left lung nodule revealed slight growth. He has not taken baby aspirin for a few days and is not on any anticoagulant therapy. He noticed a small amount ofbright red blood when coughing last night and this morning. He had an abnormal stress test a couple of weeks ago and sees Dr. Brooks for cardiology in [place]. Review of Systems Constitutional: Positive for activity change. Negative for chills, fatigue and fever. HENT: Negative. Eyes: Negative. Respiratory: Positive for cough and shortness of breath. Negative for chest tightness. Cardiovascular: Positive for chest pain. Negative for leg swelling. Gastrointestinal: Positive for abdominal pain, nausea and vomiting. Negative for abdominal distention and diarrhea. Endocrine: Negative. Genitourinary: Negative for decreased urine volume. Musculoskeletal: Negative. Skin: Negative. Allergic/Immunologic: Negative. Neurological: Positive for dizziness, syncope and light-headedness. Negative for weakness and headaches. Hematological: Negative. Psychiatric/Behavioral: Negative. Personal History No past medical history on file. No past surgical history on file. Family History: family history is not on file. Social History: reports that he does not drink alcohol. Social History Social History Narrative Not on file Medications: Glycopyrrolate-Formoterol, albuterol sulfate HFA, cetirizine, lisinopril, montelukast, and omeprazole No Known Allergies Objective Objective Vital Signs: Temp: [98.1 ??F (36.7 ??C)-98.7 ??F (37.1 ??C)] 98.7 ??F (37.1 ??C) Heart Rate: [95-99] 95 Resp: [18] 18 BP: (99-101)/(54-56) 101/56 Physical Exam HENT: Head: Normocephalic and atraumatic. Eyes: Extraocular Movements: Extraocular movements intact. Pupils: Pupils are equal, round, and reactive to light. Cardiovascular: Rate and Rhythm: Normal rate and regular rhythm. Pulses: Normal pulses. Heart sounds: Normal heart sounds. Pulmonary: Effort: Pulmonary effort is normal. No respiratory distress. Breath sounds: Normal breath sounds. No wheezing. Abdominal: General: Bowel sounds are normal. There is distension. Palpations: Abdomen is soft. Tenderness: There is abdominal tenderness. Musculoskeletal: Right lower leg: No edema. Left lower leg: No edema. Skin: General: Skin is warm and dry. Neurological: General: No focal deficit present. Mental Status: He is alert and oriented to person, place, and time. Psychiatric: Mood and Affect: Mood normal. Behavior: Behavior normal. Physical Exam Abdominal: Tenderness centralized around the belly button. Result Review: I have personally reviewed the results from the time of this admission to 08/27/2025 21:11 EST and agree with these findings: [x] Laboratory list / accordion [] Microbiology [x] Radiology [x] EKG/Telemetry [] Cardiology/Vascular [] Pathology [] Old records [] Other: Results Imaging - CT scan: Distended gallbladder. LAB RESULTS: Lab 08/27/251942 WBC 15.69* HEMOGLOBIN 11.1* HEMATOCRIT 34.2* PLATELETS 171 NEUTROS ABS 14.59* IMMATURE GRANS (ABS) 0.15* LYMPHS ABS 0.43* MONOS ABS 0.49 EOS ABS 0.00 MCV 93.4 PROCALCITONIN 68.30* LACTATE 7.2* Lab 08/27/251942 SODIUM 143 POTASSIUM 3.5 CHLORIDE 110* CO2 15.6* ANION GAP 17.4* BUN 20.6 CREATININE 1.49* EGFR 45.4* GLUCOSE 110* CALCIUM 8.1* Lab 08/27/251942 TOTAL PROTEIN 5.4* ALBUMIN 3.4* GLOBULIN 2.0 ALT (SGPT) 275* AST (SGOT) 456* BILIRUBIN 1.0 ALK PHOS 106 LIPASE 576* Lab 08/27/251942 HSTROP T 39* Brief Urine Lab Results None Microbiology Results (last 10 days) No results found for the last 240 hours. No radiology results from the last 24 hrs Assessment & Plan Assessment & Plan Pancreatitis Vasovagal syncope HTN (hypertension) Mixed hyperlipidemia COPD (chronic obstructive pulmonary disease) Former tobacco use History of prostate cancer BPH with obstruction/lower urinary tract symptoms Loc Thurman is a 84 y.o. 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 via transfer from [facility] for evaluation of pancreatitis and distended gallbladder. Patient/family describe syncopal episode in ambulance in route from [facility] this afternoon subjective SBP in the 80s. Current SBP 101, 1 L NS bolus now, followed by maintenance fluids. Repeat labs. Consult general surgery in a.m. pain control and antiemetics as needed. Assessment & Plan Code Status: Full code Pancreatitis - CT of abdomen revealed distended gallbladder with wall thickening and pericholecystic fluid. Bileduct 15 mm. Recommend further evaluation for gallbladder pathology. Pancreatic atrophy. - At [facility] normal LFTs, Lipase greater than 11,000, WBC 22,000, and lactate 4 - Received Zosyn at [facility], continue - Repeat labs - Pain control - Antiemetics as needed - General Surgery consult - CBC and CMP in a.m. - N.p.o. Elevated troponin Probably secondary to nausea/vomiting? - Repeat troponin - Stat EKG - Telemetry Hypotension History of HTN - Family described syncopal episode and ambulance - 1 L NS bolus now - Maintenance fluids - Hold lisinopril Elevated creatinine versus CARMITA - Creatinine 1.49 - Baseline creatinine unknown - Maintenance fluids - Avoid nephrotoxic agent COPD - Currently on room air - Encourage pulmonary toilet - Titrate oxygen as needed - DuoNebs BPH History of high-grade prostate cancer - Currently on doxazosin, this could be contributing to hypotension. Hold for now Hemoptysis Lung nodules - S/p bronch 08/26, awaiting biopsy result - Coughing up blood-tinged sputum, scant - Advised to monitor for any changes or increase in hemoptysis and report immediately DVT prophylaxis: Mechanical CODE STATUS: Full code Code Status (Patient has no pulse and is not breathing): CPR (Attempt to Resuscitate) Medical Interventions (Patient has pulse or is breathing): Full Support Level Of Support Discussed With: Patient Expected Discharge Expected discharge date/ time has not been documented. This note has been completed as part of a split-shared workflow. 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 Attending Admission Attestation I have performed an independent [id number] diagnostic evaluation including performing an independent physical examination. I approve of the documented plan of care above that was reviewed and developed with the advanced consulting practice director (APC) and take responsibility for that plan along with itsassociated risks. I have updated the HPI as appropriate. Brief HPI Loc Thurman is a 84 y.o. 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 via transfer from [facility] for evaluation of pancreatitis and distended gallbladder. Patient reports acute onset abdominal pain, located around the epigastrium, nausea, vomiting. Denies fevers. Endorses decreased UOP. Attending Physical Exam: Temp: [98.1 ??F (36.7 ??C)-98.7 ??F (37.1 ??C)] 98.7 ??F (37.1 ??C) Heart Rate: [95-99] 95 Resp: [18] 18 BP: (99-101)/(54-56) 101/56 Constitutional: No acute distress, awake, alert HENT: NCAT, mucous membranes dry Respiratory: Clear to auscultation bilaterally, respiratory effort normal Cardiovascular: RRR, no murmurs, rubs, or gallops Gastrointestinal: Positive bowel sounds, distended, epigastric, generalized tenderness Musculoskeletal: No bilateral ankle edema Psychiatric: Appropriate affect, cooperative Neurologic: Oriented x 3, Skin: No rashes Result Review: I have personally reviewed the results from the time of this admission to 08/27/2025 22:26 EST and agree with these findings: [x] Laboratory list / accordion [] Microbiology [x] Radiology [] EKG/Telemetry [] Cardiology/Vascular [] Pathology [] Old records [] Other: Most notable findings include: summarized Assessment and Plan: Acute pancreatitis AG Metabolic acidosis Lactic acidosis Transaminitis CARMITA( unknown cr baseline) - continue IV fluids - GS consulted - monitor UOP - obtain stat ABG to assess severity of acidosis - transfer to ICU : Dr. Rubin accepted See assessment and plan documented by APC above and updated/edited by me as appropriate. Librado Bangura MD 08/27/25 documented in this encounter Procedure Notes * Alma Rosa Lucas APRN - 08/28/2025 5:20 AM ESTAssociated Order(s): Insert Arterial Line Post-Procedure Diagnose(s): Acute pancreatitis, unspecified complication status, unspecified pancreatitis type Insert Arterial Line Date/Time: 08/28/2025 5:20 AM Performed by: Alma Rosa Lucas APRN Authorized by: Alma Rosa Lucas APRN Archbald Protocol: Verbal consent obtained?: Yes Risks and benefits: Risks, benefits and alternatives were discussed Consent given by: Patient Patient states understanding of procedure being performed: Yes Patient's understanding of procedure matches consent: Yes Procedure consent matches procedure scheduled: Yes Relevant documents present and verified: Yes Test results available and properly labeled: Yes Imaging studies available: Yes Required items: Required blood products, implants, devices and special equipment available Patient identity confirmed: Verbally with patient, arm band and hospital- assigned identification number Time out: Immediately prior to the procedure a time out was called A time out verifies correct patient, procedure, equipment, system support developer and site/side marked as required: Preparation: Preparation: Patient was prepped and draped in usual sterile fashion Indications: Indications: multiple ABGs and hemodynamic monitoring Location: Location: Left radial Anesthesia: Patient sedated: Yes Analgesia: Hydromorphone Vital signs: Vital signs monitored during sedation Procedure Details: Ultrasound Guidance: yes The ultrasound was used for evaluation of possible access sites. Vessel patency was confirmed with the ultrasound. Needle entry into vessel was visualized in realtime with the ultrasound. Andrey's test normal?: Yes Needle gauge: 20 Seldinger technique: Seldinger technique used Number of attempts: 1 Post-procedure: Post-procedure: Line sutured and dressing applied Post-procedure CMS: Normal patient tolerated the procedure well with no immediate complications * Alma Rosa Lucas APRN - 08/28/2025 5:19 AM ESTAssociated Order(s): Insert Central Line At Bedside Post-Procedure Diagnose(s): Acute pancreatitis, unspecified complication status, unspecified pancreatitis type Insert Central Line At Bedside Date/Time: 08/28/2025 5:19 AM Performed by: Alma Rosa Lucas APRN Authorized by: Alma Rosa Lucas APRN Consent: Verbal consent obtained Risks and benefits: risks, benefits and alternatives were discussed Consent given by: patient Patient understanding: patient states understanding of the procedure being performed Patient consent: the patient's understanding of the procedure matches consent given Procedure consent: procedure consent matches procedure scheduled Relevant documents: relevant documents present and verified Site marked: the operative site was marked Imaging studies: imaging studies available Required items: required blood products, implants, devices, and special equipment available Patient identity confirmed: verbally with patient, arm band and hospital- assigned identification number Time out: Immediately prior to procedure a time out was called to verify the correct patient, procedure, equipment, system support developer and site/side marked as required. Indications: vascular access Anesthesia: local infiltration Anesthesia: Local Anesthetic: lidocaine 1% without epinephrine Anesthetic total: 5 mL Sedation: Patient sedated: yes Analgesia: hydromorphone Vitals: Vital signs were monitored during sedation. Preparation: skin prepped with ChloraPrep Skin prep agent dried: skin prep agent completely dried prior to procedure Sterile barriers: all five maximum sterile barriers used - cap, mask, sterile gown, sterile gloves,and large sterile sheet Hand hygiene: hand hygiene performed prior to central venous catheter insertion Location details: right internal jugular Patient position: flat Catheter type: triple lumen Catheter size: 7 Fr Pre-procedure: landmarks identified Ultrasound guidance: yes Sterile ultrasound techniques: sterile gel and sterile probe covers were used Number of attempts: 1 Successful placement: yes Post-procedure: line sutured and dressing applied Assessment: blood return through all ports, placement verified by x-ray and no pneumothorax on x-ray Patient tolerance: patient tolerated the procedure well with no immediate complications documented in this encounter Consult Notes * Waleska Vivas MS,ANGÉLICA,LD - 09/03/2025 11:39 AM ESTAssociated Order(s): IP CONSULT TO NUTRITION SERVICES Nutrition Services Patient Name: Loc Thurman Date of : 1940 Admit Date: 08/27/2025 Consult received for chronic poor intake. Pt seen and assessed by RD yesterday, see note for full assessment and interventions in place. RD will continue to follow per protocol. Electronically signed by: Waleska Vivas MS,RD,LD 09/03/25 11:39 EST * Hermes Jaramillo MD - 08/27/2025 9:11 PM ESTAssociated Order(s): IP CONSULT TO GENERAL SURGERY Patient Name: Loc Thurman Date of : 1940 [id number] Patient Care Team: Provider, No Known as PCP - General General Surgery Consult Note Date of Consultation: 08/27/25 Referring Physician : Librado Bangura MD Reason for Consult : Pancreatitis Subjective I have been asked by Librado Bangura MD to see Loc Thurman , a 84 y.o. male in consultation for pancreatitis. Mr. Thurman has a known history of COPD, a past history of pancreatitis, hypertension, prostate cancer status post XRT, hypercholesterolemia, and a relatively newly diagnosed left lung mass. He underwent bronchoscopy at [facility] yesterday. He states postoperatively he did well and was discharged home. He states he had trouble sleeping last night. This morning he had some coughing as well as some scant hemoptysis which he was told to expect after this procedure. He ate breakfast and then began a bandlike pain in his upper abdomen which radiated to his back. This wasassociated with some nausea. He had had a history of pancreatitis approximately 10 years prior. Dueto the severity of his pain he presented to an outside hospital. Subsequent evaluation there demonstrated a lipase of 11,[address] scanning of the chest abdomen pelvis revealed evidence of a distended gallbladder with questionable gallbladder wall thickening and pericholecystic fluid. He was transferred to our facility for higher level of care. Currently is relaxing in bed though he does report some upper abdominal pain. No other current complaints. Allergy: No Known Allergies Medications: [Held by provider] lisinopril, 15 mg, Oral, BID montelukast, 10 mg, Oral, Nightly [START ON 08/28/2025] pantoprazole, 40 mg, Oral, Q AM piperacillin-tazobactam, 3.375 g, Intravenous, Once [START ON 08/28/2025] piperacillin-tazobactam, 3.375 g, Intravenous, Q8H potassium chloride ER, 20 mEq, Oral, Once sodium chloride, 1,000 mL, Intravenous, Once sodium chloride, 10 mL, Intravenous, Q12H sodium chloride, 100 mL/hr No current facility-administered medications on file prior to encounter. Current Outpatient Medications on File Prior to Encounter Medication Sig albuterol sulfate HFA 108 (90 Base) MCG/ACT inhaler Inhale 2 puffs Every 4 (Four) Hours As Needed for Wheezing. cetirizine (zyrTEC) 5 MG tablet Take 1 tablet by mouth Daily. Glycopyrrolate-Formoterol (Bevespi Aerosphere) 9-4.8 MCG/ACT aerosol Inhale. lisinopril (PRINIVIL,ZESTRIL) 10 MG tablet Take 1.5 tablets by mouth 2 (Two) Times a Day. montelukast (SINGULAIR) 10 MG tablet Take 1 tablet by mouth Every Night. omeprazole (priLOSEC) 20 MG capsule Take 1 capsule by mouth Daily. PMHx: Hypertension Hypercholesterolemia COPD History of pancreatitis Prostate cancer status post radiation Past Surgical History: Open appendectomy Bilateral inguinal hernia repairs Cataracts Family History: Significant for cancers Social History: Pt lives in [facility]. Tobacco use: Denies , quit 35 years ago EtOH use : Denies Illicit drug use: Denies Review of Systems Constitutional: No fevers, chills or malaise Eyes: Denies visual changes Cardiovascular: Denies chest pain, palpitations Pulmonary: Denies cough or shortness of breath Abdominal/ GI: See HPI Genitourinary: Denies dysuria or hematuria Musculoskeletal: Denies any but chronic joint aches, pains or deformities Psychiatric: No recent mood changes Neurologic: No paresthesias or loss of function Objective Physical Exam: Vital Signs BP 101/56 (BP Location: Left arm, Patient Position: Lying) Pulse 95 Temp 98.7 ??F (37.1 ??C) (Oral) Resp 18 SpO2 92% No intake or output data in the 24 hours ending 08/27/251 Physical Exam: Head: Normocephalic, atraumatic. Eyes: Pupils equal, round, react to light and accommodation. Mouth: Oral mucosa without lesions, Neck: No masses, lymphadenopathy or carotid bruits bilaterally CV: Rhythm and rate regular , no murmurs, rubs or gallops Lungs: Clear to auscultation bilaterally Abdomen: Bowel sounds positive , soft, mildly tender to deep palpation. No peritonitis. Reducible umbilical hernia. R paramedian scar c/w appendectomy/ Groin : No obvious hernias bilaterally Extremities: No cyanosis, clubbing or edema bilaterally Lymphatics: No abnormal lymphadenopathy appreciated Neurologic: No gross deficits Results Review: I have personally reviewed all of the recent lab and imaging results available at this time. Laboratory exam at the outside hospital revealed a lipase of 11,000. Laboratory exam here demonstrates a white count of 15,000 with a hemoglobin 11.1 and platelet count of 171. There is a left shift. His lipase is 576 with a procalcitonin of 68.3 a lactate of 7.2. His AST is 456 ALT 275 but alkaline phosphatase of 106 and a bilirubin of 1.0. His creatinine is 1.49. His high-sensitivity troponin is 39. The CT scan report from the outside hospital was viewed by me, but no images were sent with the patient and no disc was sent either. The CT scan report demonstrates no evidence of pulmonary embolus, but does report a distended gallbladder with Zachariah cholecystic fluid and questionable gallbladder wall thickening. There is an atrophic pancreas. There is no free air mentioned. No evidence of bowel obstruction noted. Assessment and Plan: Pancreatitis- He has evidence of pancreatitis, and I am unsure if he truly has cholecystitis or not. I am going to repeat his CT scan overnight tonight without contrast to evaluate his intra-abdominal cavity as well as his cholecystitis. Depending on his resolution of his pancreatitis, we may be able to proceed with cholecystectomy as early as tomorrow, but this will depend on multiple clinical factors. I am also concerned that he may have an acute hepatitis, possibly related to recent anesthesia and/or medication reaction related to his recent procedure given the transaminitis with normal alk phos and bilirubin. I will follow this patient with you. 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 I discussed the patient's findings and my recommendations with the patient and/or family, as well as the primary team Hermes Jaramillo MD 08/27/25 21:11 EST Dictated using [employer] Dictation CT scan personally reviewed. This shows acute cholecystitis, no evidence of pancreatitis and no other acute issues (no free air or fluid, no evidnece of bowel ischemia). Patient was moved to ICU for hypotension, started on pressors. I spoke with Dr. Rubin of ICU service as well, who will manage ongoing resuscitation. If stabilizes, will plan for CCY later this morning, otherwise may need cholecystostomy tube placement. Will follow ongoing resuscitation. Hermes Jaramillo MD 00:03 EST' documented in this encounter Nursing Notes * Siri Hopkins RN - 09/05/2025 2:07 PM EST Prior to central line removal, order for the removal of catheter was verified, patient was assessed, necessary materials were gathered and patient was educated regarding procedure . Patient was positioned supine to ensure that the insertion site was at or below the level of the heart. Hands were washed, clean gloves were applied and central line dressing was gently removed. Catheterexit site was not cultured. A new pair of clean gloves were then applied. Insertion site was cleansed with 2% Chlorhexidine swab using a circular motion beginning at the insertion site and moving outward for 30 seconds and allowed to dry. Clamp on line was not present. Patient was instructed to perform Valsalva maneuver as catheter was withdrawn. The central line was grasped at the insertion site and slowly pulled outward parallel to the skin. Resistance was not met. After central line was completely removed, a sterile 4x4 gauze pad was used to apply light pressureuntil bleeding stopped. At that time, petroleum-based gauze and a sterile occlusive dressing was applied to exit site. Patient was instructed to keep dressing in place for at least 24 hours and to remain in a flat or reclining position for 30 minutes post-removal. Catheter was inspected after removal and was intact. Tip of central line was not sent for culture. Patient tolerated procedure. * Velvet Torres RN - 09/05/2025 1:42 PM EST Problem: Adult Inpatient Plan of Care Goal: Plan of Care Review 09/05/2025 1342 by Velvet Torres RN Outcome: Met 09/05/2025 1342 by Velvet Torres RN Outcome: Met Goal: Patient-Specific Goal (Individualized) 09/05/2025 1342 by Velvet Torres RN Outcome: Met 09/05/2025 1342 by Velvet Torres RN Outcome: Met Goal: Absence of Hospital-Acquired Illness or Injury 09/05/2025 1342 by Velvet Torres RN Outcome: Met 09/05/2025 1342 by Velvet Torres RN Outcome: Met Intervention: Identify and Manage Fall Risk Recent Flowsheet Documentation Taken 09/05/2025 1240 by Velvet Torres RN Safety Promotion/Fall Prevention: activity supervised assistive device/personal items within reach clutter free environment maintained fall prevention program maintained nonskid shoes/slippers when out of bed room organization consistent safety round/check completed Taken 09/05/2025 0802 by Velvet Torres RN Safety Promotion/Fall Prevention: activity supervised assistive device/personal items within reach clutter free environment maintained fall prevention program maintained nonskid shoes/slippers when out of bed room organization consistent safety round/check completed Intervention: Prevent Skin Injury Recent Flowsheet Documentation Taken 09/05/2025 1240 by Velvet Torres RN Body Position: position changed independently supine legs elevated Skin Protection: incontinence pads utilized protective footwear used silicone border foam - heel silicone border foam - sacrum/coccyx Taken 09/05/2025 0802 by Velvet Torres RN Body Position: position changed independently sitting up in bed Skin Protection: incontinence pads utilized protective footwear used silicone border foam - heel silicone border foam - sacrum/coccyx Intervention: Prevent Infection Recent Flowsheet Documentation Taken 09/05/2025 1240 by Velvet Torres RN Infection Prevention: environmental surveillance performed equipment surfaces disinfected hand hygiene promoted rest/sleep promoted single patient room provided Taken 09/05/2025 0802 by Velvet Torres RN Infection Prevention: environmental surveillance performed equipment surfaces disinfected hand hygiene promoted rest/sleep promoted single patient room provided Goal: Optimal Comfort and Wellbeing 09/05/2025 1342 by Velvet Torres RN Outcome: Met 09/05/2025 1342 by Velvet Torres RN Outcome: Met Intervention: Provide Person-Centered Care Recent Flowsheet Documentation Taken 09/05/2025 1240 by Velvet Torres RN Trust Relationship/Rapport: care explained choices provided emotional support provided empathic listening provided questions encouraged reassurance provided thoughts/feelings acknowledged Taken 09/05/2025 0802 by Velvet Torres RN Trust Relationship/Rapport: care explained choices provided emotional support provided empathic listening provided questions encouraged reassurance provided thoughts/feelings acknowledged Goal: Readiness for Transition of Care 09/05/2025 1342 by Velvet Torres RN Outcome: Met 09/05/2025 1342 by Velvet Torres RN Outcome: Met Problem: Adult Inpatient Plan of Care Goal: Absence of Hospital-Acquired Illness or Injury Intervention: Prevent Skin Injury Recent Flowsheet Documentation Taken 09/05/2025 1240 by Velvet Torres RN Body Position: position changed independently supine legs elevated Skin Protection: incontinence pads utilized protective footwear used silicone border foam - heel silicone border foam - sacrum/coccyx Taken 09/05/2025 0802 by Velvet Torres RN Body Position: position changed independently sitting up in bed Skin Protection: incontinence pads utilized protective footwear used silicone border foam - heel silicone border foam - sacrum/coccyx Goal Outcome Evaluation: * Rita Palacios RN - 09/03/2025 1:51 AM EST Problem: Adult Inpatient Plan of Care Goal: Plan of Care Review Outcome: Progressing Flowsheets (Taken 09/03/2025 014) Progress: improving Plan of Care Reviewed With: patient Goal: Patient-Specific Goal (Individualized) Outcome: Progressing Flowsheets (Taken 09/03/2025 014) Patient/Family-Specific Goals (Include Timeframe): patient will be kept safe, free from injuries throughout the shift Individualized Care Needs: safety Anxieties, Fears or Concerns: none stated Goal: Absence of Hospital-Acquired Illness or Injury Outcome: Progressing Intervention: Identify and Manage Fall Risk Flowsheets Taken 09/03/2025146 Safety Promotion/Fall Prevention: activity supervised clutter free environment maintained Taken 09/02/20251999 Safety Promotion/Fall Prevention: activity supervised assistive device/personal items within reach clutter free environment maintained fall prevention program maintained gait belt lighting adjusted mobility aid in reach nonskid shoes/slippers when out of bed room organization consistent safety round/check completed toileting scheduled Intervention: Prevent Skin Injury Flowsheets (Taken 09/03/2025146) Body Position: side-lying Skin Protection: incontinence pads utilized Intervention: Prevent and Manage VTE (Venous Thromboembolism) Risk Flowsheets (Taken 09/03/2025146) VTE Prevention/Management: SCDs (sequential compression devices) off Intervention: Prevent Infection Flowsheets Taken 09/03/2025146 Infection Prevention: rest/sleep promoted Taken 09/02/20251999 Infection Prevention: environmental surveillance performed equipment surfaces disinfected hand hygiene promoted rest/sleep promoted single patient room provided Goal: Optimal Comfort and Wellbeing Outcome: Progressing Intervention: Monitor Pain and Promote Comfort Flowsheets (Taken 09/03/2025146) Pain Management Interventions: pillow support provided Intervention: Provide Person-Centered Care Flowsheets Taken 09/03/2025146 Trust Relationship/Rapport: care explained choices provided emotional support provided empathic listening provided questions answered questions encouraged thoughts/feelings acknowledged Taken 09/02/20251999 Trust Relationship/Rapport: care explained choices provided questions encouraged questions answered thoughts/feelings acknowledged Goal: Readiness for Transition of Care Outcome: Progressing Problem: Skin Injury Risk Increased Goal: Skin Health and Integrity Outcome: Progressing Intervention: Optimize Skin Protection Flowsheets Taken 09/03/2025146 Activity Management: activity encouraged Pressure Reduction Techniques: frequent weight shift encouraged Head of Bed (HOB) Positioning: HOB elevated Pressure Reduction Devices: foam padding utilized Skin Protection: incontinence pads utilized Taken 09/02/20251999 Activity Management: activity encouraged Pressure Reduction Techniques: frequent weight shift encouraged pressure points protected Head of Bed (HOB) Positioning: HOB at 30 degrees Pressure Reduction Devices: foam padding utilized pressure-redistributing mattress utilized Intervention: Promote and Optimize Oral Intake Flowsheets (Taken 09/03/2025146) Nutrition Interventions: food preferences provided Problem: Sepsis/Septic Shock Goal: Optimal Coping Outcome: Progressing Intervention: Support Patient and Family Response Flowsheets Taken 09/03/2025146 Supportive Measures: active listening utilized self-care encouraged Taken 09/02/20251999 Supportive Measures: active listening utilized self-care encouraged verbalization of feelings encouraged Family/Support System Care: self-care encouraged Goal: Absence of Bleeding Outcome: Progressing Intervention: Monitor and Manage Bleeding Flowsheets Taken 09/03/2025146 Bleeding Precautions: blood pressure closely monitored monitored for signs of bleeding Bleeding Management: dressing monitored Taken 09/02/20251999 Bleeding Precautions: monitored for signs of bleeding Goal: Blood Glucose Level Within Target Range Outcome: Progressing Intervention: Optimize Glycemic Control Flowsheets (Taken 09/03/2025146) Hyperglycemia Management: blood glucose monitored Hypoglycemia Management: blood glucose monitored Goal: Absence of Infection Signs and Symptoms Outcome: Progressing Intervention: Initiate Sepsis Management Flowsheets Taken 09/03/2025146 Stabilization Measures: legs elevated Infection Prevention: rest/sleep promoted Taken 09/02/20251999 Infection Prevention: environmental surveillance performed equipment surfaces disinfected hand hygiene promoted rest/sleep promoted single patient room provided Intervention: Promote Stabilization Flowsheets (Taken 09/03/2025146) Fever Reduction/Comfort Measures: lightweight bedding lightweight clothing Intervention: Promote Recovery Flowsheets Taken 09/03/2025146 Activity Management: activity encouraged Airway/Ventilation Management: airway patency maintained calming measures promoted Sleep/Rest Enhancement: awakenings minimized consistent schedule promoted relaxation techniques promoted Taken 09/02/20251999 Activity Management: activity encouraged Sleep/Rest Enhancement: awakenings minimized consistent schedule promoted regular sleep/rest pattern promoted relaxation techniques promoted Goal: Optimal Nutrition Delivery Outcome: Progressing Intervention: Optimize Nutrition Delivery Flowsheets (Taken 09/03/2025146) Nutrition Interventions: food preferences provided Problem: Mechanical Ventilation Invasive Goal: Effective Communication Outcome: Met Intervention: Ensure Effective Communication Recent Flowsheet Documentation Taken 09/03/2025146 by Rita Palacios RN Trust Relationship/Rapport: care explained choices provided emotional support provided empathic listening provided questions answered questions encouraged thoughts/feelings acknowledged Taken 09/02/20251999 by Rita Palacios RN Trust Relationship/Rapport: care explained choices provided questions encouraged questions answered thoughts/feelings acknowledged Diversional Activities: television Family/Support System Care: self-care encouraged Communication Enhancement Strategies: call light answered in person verbal communication attempts encouraged Goal: Optimal Device Function Outcome: Met Intervention: Optimize Device Care and Function Recent Flowsheet Documentation Taken 09/03/2025146 by Rita Palacios RN Airway/Ventilation Management: airway patency maintained calming measures promoted Goal: Mechanical Ventilation Liberation Outcome: Met Intervention: Promote Extubation and Mechanical Ventilation Liberation Recent Flowsheet Documentation Taken 09/03/2025146 by Rita Palacios RN Sleep/Rest Enhancement: awakenings minimized consistent schedule promoted relaxation techniques promoted Medication Review/Management: medications reviewed Taken 09/02/20251999 by Rita Palacios RN Environmental Support: calm environment promoted personal routine supported Sleep/Rest Enhancement: awakenings minimized consistent schedule promoted regular sleep/rest pattern promoted relaxation techniques promoted Medication Review/Management: medications reviewed Goal: Optimal Nutrition Delivery Outcome: Met Goal: Absence of Device-Related Skin and Tissue Injury Outcome: Met Goal: Absence of Ventilator-Induced Lung Injury Outcome: Met Intervention: Prevent Ventilator-Associated Pneumonia Recent Flowsheet Documentation Taken 09/03/2025146 by Rita Palacios RN Head of Bed (HOB) Positioning: HOB elevated Taken 09/02/20251999 by Rita Palacios RN Head of Bed (HOB) Positioning: HOB at 30 degrees Problem: Fall Injury Risk Goal: Absence of Fall and Fall-Related Injury Outcome: Progressing Intervention: Identify and Manage Contributors Flowsheets Taken 09/03/2025146 Medication Review/Management: medications reviewed Self-Care Promotion: independence encouraged BADL personal objects within reach Taken 09/02/20251999 Medication Review/Management: medications reviewed Self-Care Promotion: independence encouraged BADL personal objects within reach Intervention: Promote Injury-Free Environment Flowsheets Taken 09/03/2025146 Safety Promotion/Fall Prevention: activity supervised clutter free environment maintained Taken 09/02/20251999 Safety Promotion/Fall Prevention: activity supervised assistive device/personal items within reach clutter free environment maintained fall prevention program maintained gait belt lighting adjusted mobility aid in reach nonskid shoes/slippers when out of bed room organization consistent safety round/check completed toileting scheduled Problem: Surgery Nonspecified Goal: Absence of Bleeding Outcome: Progressing Intervention: Monitor and Manage Bleeding Flowsheets (Taken 09/03/2025146) Bleeding Management: dressing monitored Goal Outcome Evaluation: Plan of Care Reviewed With: patient Progress: improving * Andrea Dukes MS CCC-PSYCH TECH - 09/02/2025 1:04 PM EST Goal Outcome Evaluation: Plan of Care Reviewed With: patient Progress: declining Anticipated Discharge Disposition (PSYCH TECH): inpatient rehabilitation facility PSYCH TECH Swallowing Diagnosis: mild, oral dysphagia, mod-severe, pharyngeal dysphagia (09/02/25 1100) * Rhianna Tilley, PT - 09/02/2025 10:28 AM EST Goal Outcome Evaluation: Plan of Care Reviewed With: patient Progress: improving Outcome Evaluation: Pt progressing well towards skilled PT goals. Less assist needed with mobility compared to initial evaluation. Pt stood with MinAx1 and increased gait distance to 20 feet using rwwith MinAx1. Pt continues to be limited by weakness, decreased activity tolerance, and gait instability. Continue to recommend inpatient rehab at d/c. Anticipated Discharge Disposition (PT): inpatient rehabilitation facility * Patsy Abernathy, OT - 09/02/2025 7:40 AM EST Goal Outcome Evaluation: Plan of Care Reviewed With: patient Progress: improving Outcome Evaluation: Pt progressed from mod A to min A with transfers using RW, SBA sitting sinksideto complete grooming, dep LBD. Pt with increased anxiety, tremulous and easily fatigued with activity, and presents with weakness and decr balance limiting independence with ADLs/mobiltiy. Recommend IP rehab upon d/c. Anticipated Discharge Disposition (OT): inpatient rehabilitation facility * Tamica Vo RN - 09/01/2025 6:57 PM EST Problem: Adult Inpatient Plan of Care Goal: Plan of Care Review Outcome: Progressing Goal: Patient-Specific Goal (Individualized) Outcome: Progressing Goal: Absence of Hospital-Acquired Illness or Injury Outcome: Progressing Intervention: Identify and Manage Fall Risk Recent Flowsheet Documentation Taken 09/01/2025 09 by Tamica Vo RN Safety Promotion/Fall Prevention: activity supervised assistive device/personal items within reach clutter free environment maintained Intervention: Prevent Skin Injury Recent Flowsheet Documentation Taken 09/01/2025 1200 by Tamica Vo RN Body Position: supine Skin Protection: silicone border foam - heel silicone border foam - sacrum/coccyx Taken 09/01/2025 0927 by Tamica Vo RN Body Position: right turned Skin Protection: silicone border foam - sacrum/coccyx silicone border foam - heel incontinence pads utilized Intervention: Prevent Infection Recent Flowsheet Documentation Taken 09/01/2025 1200 by Tamica Vo RN Infection Prevention: environmental surveillance performed Goal: Optimal Comfort and Wellbeing Outcome: Progressing Goal: Readiness for Transition of Care Outcome: Progressing Goal Outcome Evaluation: * Nora Montano MS CF-PSYCH TECH - 09/01/2025 4:10 PM EST Goal Outcome Evaluation: Plan of Care Reviewed With: patient Anticipated Discharge Disposition (PSYCH TECH): inpatient rehabilitation facility Treatment Assessment (PSYCH TECH): toleration of diet, clinical signs of, aspiration (09/01/25 153) Treatment Assessment Comments (PSYCH TECH): Pt requesting thin liquids. Explained justification of thickened liquids (09/01/251529) Plan for Continued Treatment (PSYCH TECH): continue treatment per plan of care (09/01/251529) * Wilbur Balderas RN - 08/31/2025 5:18 PM EST Goal Outcome Evaluation: Plan of Care Reviewed With: patient Outcome Evaluation: bp still elevated today, extra dose lisinopril given and hydralazine x1. otherwise vss. did have trouble with whole med with nectar but otherwise tolerated ntl and pureed. no bm today, adequate urine per maurer. * Radha Smith OT - 08/31/2025 1:07 PM EST Goal Outcome Evaluation: Plan of Care Reviewed With: patient, son Progress: improving Outcome Evaluation: Pt continues to progress towards all OT goals, limited by weakness, confusion, and decreased activity tolerance. Pt tolerated seated UE ther-ex this session with AAROM/AROM. Cont POC. Anticipated Discharge Disposition (OT): inpatient rehabilitation facility * Andrea Dukes MS CCC-PSYCH TECH - 08/31/2025 9:54 AM EST Goal Outcome Evaluation: Plan of Care Reviewed With: patient Progress: improving Anticipated Discharge Disposition (PSYCH TECH): inpatient rehabilitation facility PSYCH TECH Swallowing Diagnosis: moderate, oral dysphagia, pharyngeal dysphagia (08/31/25 0815) * Tee Marina, PT Student - 08/31/2025 9:48 AM EST Goal Outcome Evaluation: Plan of Care Reviewed With: (P) patient, child Progress: (P) improving Outcome Evaluation: (P) Pt demo improvements in functional mobility this date, still below baselined/t deficits in strength, balance, and endurance warranting further skilled IPPT. Pt amb 16 ft w/ BHHA modAx2, further mobility limited by weakness and fatigue. Rec d/c IRF once medically ready. Anticipated Discharge Disposition (PT): (P) inpatient rehabilitation facility Cosigned by Flora Galvan, PT at 08/31/2025 1:04 PM EST Associated attestation - Flora Galvan, PT - 08/31/2025 1:04 PM EST Ellen Galvan, PT 08/31/2025 13:04 EST * Blossom Feldman RN - 08/31/2025 6:39 AM EST Goal Outcome Evaluation: discussed with patient Up in the chair x2 hrs then back to bed with assist of 3 and gait belt. B/p remains elevated. GLASS CUTTING MACHINE OPERATOR notified, Hydralazine ordered for sbp >160 given x2. B/p remains in the 150's. UOP adequate. Tolerating trophic feedings . Art line dc'd. On 3 liters nasal cannula sats >93%. Potassium and phosphorus replacement initiated. Awaiting Fees today * Wilbur Balderas RN - 08/30/2025 5:30 PM EST Goal Outcome Evaluation: Outcome Evaluation: bp elevated but vss. lisinopril restarted and given. up to chair much of day, max assist. 1 small BM. adequate urine per maurer. starting trophic feeds, money room teller to fees tomorrow. * Alma Aiken, Speech Therapy Student - 08/30/2025 11:14 AM EST Goal Outcome Evaluation: Plan of Care Reviewed With: (P) patient, child Anticipated Discharge Disposition (PSYCH TECH): (P) inpatient rehabilitation facility PSYCH TECH Swallowing Diagnosis: (P) suspected pharyngeal dysphagia (08/30/25 1005) Cosigned by Lea Echols MS CCC-PSYCH TECH at 08/30/2025 11:59 AM EST Associated attestation - Lea Echols MS CCC-PSYCH TECH - 08/30/2025 11:59 AM EST Lea Echols, MS CCC-PSYCH TECH * Aury Fitzgerald, OT - 08/30/2025 9:16 AM EST Goal Outcome Evaluation: Plan of Care Reviewed With: patient, son Outcome Evaluation: Pt's ADL independence limited d/t generalized weakness, decrease functional endurance, balance deficits, and pain. Pt would benefit from continued skilled IPOT services to addresscurrent functional deficits. Rec IRF at d/c. Anticipated Discharge Disposition (OT): inpatient rehabilitation facility * Flora Galvan, PT - 08/30/2025 9:03 AM EST Goal Outcome Evaluation: Plan of Care Reviewed With: patient Outcome Evaluation: PT initial evaluation completed for pt s/p cholecystectomy presenting with generalized weakness, increased SOA, impaired balance and coordination, c/o incisional pain, and decreased functional mobility. Pt required modA x2 for STS transfers and modA x2- maxA x2 to take steps from bed to chair and BSC. Pt's decreased independence warrants clinical account executive care. Recommend D/C to IP rehab facility. Anticipated Discharge Disposition (PT): inpatient rehabilitation facility * Pancho Baugh RN - 08/30/2025 4:47 AM EST Goal Outcome Evaluation: Plan of Care Reviewed With: patient Outcome Evaluation: Pt extubated just prior to beginning of shift. Orotracheal suctioning occurred multiple times within the first two hours, resulting in pt coughing up a significant amount of clearand red tinged secretions. Pt was unable to clear these secretions on his own. PSYCH TECH ryan ordered per protocol. Early in to evening pt was fully oriented, though stated multiple times that he was confused and weak. When asked what he was confused about he responded that he did not know. Pt also reported anxiety and fearfulness, repeatedly asking if he was OK. During this time pt was not experiencing any visible signs of distress. Atarax given once with good results, pt was able to sleep in between interaction for the rest of the night. Reported abdominal soreness once, given dilaudid 0.5mg IVP. No nausea as stated by previous shift. NG tube intermittently set to suction and did not produce any significant amount of gastric content. Pt has been afebrile throughout the night. Normoactive bowel sounds noted this morning, no flatus or stool but has belched multiple times. Abdomen remains taut. Edema noted generalized but significant in scrotum and penis. BP mildly elevated early in evening, otherwise vitals have been within desired limits. * Nazia Arauz CRT - 08/28/2025 5:15 PM EST Goal Outcome Evaluation:POST OP EXP LAP, REST TONIGHT, WEAN TOMORROW documented in this encounter OR Notes * Op Note - Hermes Jaramillo MD - 08/28/2025 8:20 AM EST Operative Report Patient Name: Loc Thurman Date of : 1940 [id number] 08/28/2025 PREOPERATIVE DIAGNOSIS: Acute cholecystitis with sepsis POSTOPERATIVE DIAGNOSIS: Same PROCEDURE PERFORMED: Laparoscopic cholecystectomy with intraoperative cholangiography SURGEON: Hermes Jaramillo MD GLASS BULB SILVERER: Annie Jorgensen PA-C. Annie Jorgensen PA-C was responsible for performing the following activities: Retraction, Placing Dressing, and Held/Positioned Camera and their skilled assistance was necessary for the success of this case. SPECIMENS: Gallbladder and contents ANESTHESIA: General. EBL: Minimal FINDINGS: 1. Gallbladder with acute cholecystitis 2. Intraoperative cholangiogram demonstrated excellent filling of the cystic, common, right and left hepatic ducts with good flow of contrast into the duodenum without retained stone or filling defect. The biliary tree itself, including the pancreatic duct, was very dilated but there was no obstruction or retained stone noted. 3. The remainder of the intra-abdominal organs including the right colon were all viable without evidence of being the primary source of the patient's sepsis. INDICATIONS: The patient is a 84 y.o. male with a history of abdominal pain, concerning for pancreatitis. However, subsequent imaging including his laboratory exam was more concerning for acute cholecystitis, andhe continued to have evidence of sepsis.. Preoperative imaging including CT scan confirmed the diagnosis. Given the failure of resuscitation, and the concern of ongoing sepsis, the decision was made to proceed to the operating room for definitive management. The risks and benefits of Laparoscopic cholecystectomy with cholangiography, as well as any other indicated and/or related procedure, were discussed with the patient and their family and they agreed to proceed. DESCRIPTION OF PROCEDURE: After obtaining informed consent, the patient was taken to the operating room and placed in the supine position. After appropriate DVT and antibiotic prophylaxis, general anesthesia was induced. The abdomen was prepped and draped in standard sterile fashion, and after infiltrating the skin with local anesthetic, a 12mm skin incision was made superior to the umbilicus . Blunt dissection was carried down to the base of the umbilicus, which was grasped with a Marielena clamp and elevated anteriorly. A vertical midline incision was made in the fascia, and blunt dissection was carried down into the peritoneal cavity. A stay suture of 0 Vicryl was then placed in [id number] fashion around the defect, and a blunt trocar advanced without difficulty into the abdominal cavity. The abdomen was insufflated with carbon dioxide gas to a pressure of 15 mmHg, and a laparoscope advanced through the trocar and the abdominal contents were inspected. There was no evidence of bowel, bladder, or visceral injury with entrance of the trocar . At this point, after infiltrating the skin with local anesthetic, a standard laparoscopic cholecystectomy trocar placement schema was followed. The gallbladder was grasped and elevated superiorly. It was clearly acutely inflamed but did not have evidence of gangrene. Using meticulous blunt dissection , the cystic duct and cystic artery were bluntly dissected free of other structures and clearly identified using the Critical View technique. The cystic artery was then clipped twice proximally and once distally, and divided between the clips. The cystic duct was then clipped at its junction with the infundibulum of the gallbladder, and transected across 50% of its circumference. A cholangiogram catheter was then placed within the duct, and on-table cholangiography under fluoroscopy was obtained. There was excellent filling of the cystic, common, right and left hepatic ducts with good flow of contrast into the duodenum without retainedstone or filling defect. However, there was noted to be significant dilatation of the entire biliary tree including the pancreatic duct. The cholangiogram catheter was then removed, and the cystic duct was ligated using a 2-0 silk suture tied laparoscopically, reinforced with hemoclips, and divided. The gallbladder was then dissected free of the gallbladder fossa using a combination of electrocautery and blunt dissection . There was a small posterior branch of the artery that was clipped and divided . The gallbladder was then placed in an Endo Catch bag, and removed from the inferiormost trocar site. It was inspected on the back table, correlated with intra-operative findings, and passed offas specimen. The right upper quadrant was then inspected. The cystic duct and cystic artery stumps were intact without bleeding or biliary leak. The right upper quadrant was irrigated with saline until clear. Allbleeding was controlled with electrocautery. The abdomen was deflated and reinsufflated to make sure pneumoperitoneum was not tamponading any bleeding and there was none. We then began a brief inspection of the small bowel which was normal. The terminal ileum and ileocecal valve were normal. The ascending colon was normal without ischemia. The transverse colon was normal without ischemia. There is no evidence of ischemic bowel in the abdomen and no primary source of sepsis found otherwise. Identified VARGAS drain was placed in the gallbladder fossa, and brought out through the lateralmost trocar site. It was sutured to the skin using a nylon suture. He abdomen was again irrigated with saline until clear, and all trocars removed under direct and laparoscopic visualization. The fascia at the inferiormost incision was closed using the previously placed 0 Vicryl suture. The wounds were irrigated with normal saline, and closed in each area using absorbable subcuticular suture. The incisions were dressed in standard sterile fashion and covered with dry dressings. The VARGAS drain was dressed in standard sterile fashion, and placed to bulb suction. The patient recovered from anesthesia, and transferred to the PACU intubated in critical condition. All sponge and needle counts were correct timestwo at the completion of the procedure. COMPLICATIONS: None Hermes Jaramillo MD 08/28/2025 09:22 EST * Brief Op Note - Hermes Jaramillo MD - 08/28/2025 8:20 AM EST CHOLECYSTECTOMY LAPAROSCOPIC INTRAOPERATIVE CHOLANGIOGRAM Progress Note Loc Thurman 08/28/2025 Pre-op Diagnosis: Acute cholecystitis Post-Op Diagnosis Codes: Same Procedure(s): Procedure(s): CHOLECYSTECTOMY LAPAROSCOPIC INTRAOPERATIVE CHOLANGIOGRAM Surgeon(s): Hermes Jaramillo MD Anesthesia: General Staff: Acrobatic Dancer: Maria Elena Buckner RN Physician Nylon Operator: Annie Jorgensen PA Scrub Person: Katherine Duke Estimated Blood Loss: minimal Urine Voided: 30 mL Specimens: Specimens ID Source Type Tests Collected By Collected At Frozen? A Gallbladder Tissue TISSUE PATHOLOGY EXAM Hermes Jaramillo MD 08/28/25 0840 No Description: gallbladder Drains: Closed/Suction Drain 1 RUQ Bulb 10 Fr. (Active) Urethral Catheter Coude (Active) Daily Indications Acute Urinary Retention 08/28/25 0400 Site Assessment Skin intact;Clean 08/28/25 0600 Collection Container Standard drainage bag 08/28/25 06 Securement Method Securing device 08/28/25 06 Catheter care complete Yes 08/28/25 0400 Output (mL) 200 mL 08/28/25 0600 Findings: Acute cholecystitis IOC shows distention of the biliary tree including the pancreatic duct without obvious obstruction with brisk flow of contrast into the duodenum Remainder of the intra-abdominal contents including the right colon all viable without obvious source of the patient's ongoing sepsis Complications: None Hermes Jaramillo MD Date: 08/28/2025 Time: 09:21 EST documented in this encounter Miscellaneous Notes * Case Management/Social Work - Daryl Schwab RN - 09/05/2025 12:45 PM EST Case Management Discharge Note Final Note: Per XANDER, medically ready for d/c today to IPR @ [facility] inpatient rehab in [place], [place]. I spoke w/Ella liaison @ [facility], per Ella can come @ 1600 PM today. RN to call report to [phone] and send d/c packet w/patient. I will fax dc summary to [phone] when completed in [facility]. I discussed w/patient and son in room, both remain agreeable to above plan. I reviewed PT notes w/son, so he will be transporting Mr. Thurman to rehab. He stated that will take around 2 hours to reach from here. I updated Dr. Arias via chat message that son will be transporting and will need to leave around 1400 PM today, if I can have d/c summary by around 1330 PM. No other d/c needs expressed @ this time. Selected Continued Care - Admitted Since 08/27/2025 Destination Coordination complete. Service Provider Services Address Phone Fax Patient Preferred [facility] Inpatient Rehabilitation [address] [place] [address] [phone] -- Durable Medical Equipment No services have been selected for the patient. Dialysis/Infusion No services have been selected for the patient. Home Medical Care No services have been selected for the patient. Therapy No services have been selected for the patient. Community & DME No services have been selected for the patient. Community Resources No active community resources. Final Discharge Disposition Code: 62 - inpatient rehab facility * MBS/VFSS/FEES - Andrea Dukes MS [facility]-PSYCH TECH - 09/05/2025 10:16 AM EST Images from the original note were not included. Acute Care - Speech Language Pathology Swallow Re-Assessment [facility] Modified Barium Swallow Study (MBS) Patient Name: Loc Thurman : 1940 Today's Date: 09/05/2025 Admit Date: 08/27/2025 Visit Dx: ICD-10-CM ICD-9-CM 1. Acute pancreatitis, unspecified complication status, unspecified pancreatitis type K85.90 577.0 2. Cholecystitis K81.9 575.10 3. 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 Respiratory insufficiency Shock Past Medical History: Diagnosis Date Cancer COPD (chronic obstructive pulmonary disease) Hyperlipidemia Hypertension Past Surgical History: Procedure Laterality Date APPENDECTOMY CHOLECYSTECTOMY WITH INTRAOPERATIVE CHOLANGIOGRAM N/A 08/28/2025 Procedure: CHOLECYSTECTOMY LAPAROSCOPIC INTRAOPERATIVE CHOLANGIOGRAM; Surgeon: Hermes Jaramillo MD; Location: [facility]; Service: General; Laterality: N/A; COLONOSCOPY HERNIA REPAIR PSYCH TECH Recommendation and Plan Recommended discharge disposition is based on the functional assessment performed by PT/OT/Speech therapy (as applicable) and may not reflect the medical necessity determined by your provider or services covered by an individual patient's insurance plan or patient resource. PSYCH TECH Swallowing Diagnosis: mild, oral dysphagia, pharyngeal dysphagia (09/05/25829) PSYCH TECH Diet Recommendation: soft to chew textures, chopped, thin liquids (09/05/25829) Recommended Precautions and Strategies: chin tuck (09/05/25829) PSYCH TECH Rec. for Method of Medication Administration: as tolerated (must utilize chin tuck with all PO)(09/05/25829) Monitor for Signs of Aspiration: yes, notify PSYCH TECH if any concerns (09/05/25829) Swallow Criteria for Skilled Therapeutic Interventions Met: demonstrates skilled criteria () Anticipated Discharge Disposition (PSYCH TECH): inpatient rehabilitation facility (09/05/25829) Rehab Potential/Prognosis, Swallowing: good, to achieve stated therapy goals (09/05/25829) Therapy Frequency (Swallow): 5 days per week (09/05/25829) Predicted Duration Therapy Intervention (Days): 2 weeks (09/05/25829) Oral Care Recommendations: Oral Care BID/PRN, Toothbrush (09/05/25829) Penetration of thins in chin neutral head posture Progress: declining SWALLOW EVALUATION (Last 72 Hours) PSYCH TECH Adult Swallow Evaluation Row Name 09/05/2582909/02/25 1315 09/02/25 1100 Rehab Evaluation Document Type re-evaluation -RS therapy note (daily note) -RS re-evaluation -RS Subjective Information no complaints -RS no complaints -RS no complaints -RS Patient Observations alert;cooperative -RS alert;cooperative -RS alert;cooperative -RS Patient/Family/Caregiver Comments/Observations no family present in radiology - RS Son, niece, and nephew in law present. Pt gave permission to discuss results of MBS w family present -RS none present-RS Patient Effort excellent -RS good -RS good -RS Symptoms Noted During/After Treatment none -RS shortness of breath -RS shortness of breath -RS Symptoms Noted, Comment -- Reported to RN and PICKLE PUMPER via secure chat who came and assessed at bedside-RS reported to RN and transport and radiology staff -RS General Information Patient Profile Reviewed yes -RS yes -RS yes -RS Pertinent History Of Current Problem See previous PSYCH TECH notes -RS See previous PSYCH TECH notes -RS See previous PSYCH TECH notes -RS Pain Pretreatment Pain Rating 0/10 - no pain -RS 0/10 - no pain -RS 0/10 - no pain -RS Posttreatment Pain Rating 0/10 - no pain -RS 0/10 - no pain -RS 0/10 - no pain -RS General Eating/Swallowing Observations Respiratory Support Currently in Use room air -RS -- room air -RS Eating/Swallowing Skills self-fed -RS -- fed by PSYCH TECH;needed assist;self-fed -RS Positioning During Eating upright 90 degree;upright in chair -RS -- upright 90 degree;upright in chair -RS Utensils Used spoon;cup;straw -RS -- spoon;cup;straw -RS Consistencies Trialed thin liquids;mixed consistency;pureed;regular textures -RS -- thin liquids;nectar/syrup-thick liquids;honey-thick liquids;pureed;mixed consistency -RS MBS/VFSS Interpretation Oral Prep Phase WFL -RS -- WFL -RS Oral Transit Phase impaired -RS -- impaired -RS Oral Residue WFL -RS -- WFL -RS Oral Transit Phase Impaired Oral Transit Phase premature spillage of liquids into pharynx -RS -- premature spillage ofliquids into pharynx -RS Premature Spillage of Liquids into Pharynx thin liquids;secondary to reduced lingual control -RS --thin liquids;nectar-thick liquids;honey-thick liquids -RS Initiation of Pharyngeal Swallow Initiation of Pharyngeal Swallow bolus in valleculae -RS -- bolus in valleculae -RS Pharyngeal Phase impaired pharyngeal phase of swallowing -RS -- impaired pharyngeal phase of swallowing -RS Anatomical abnormalities noted reverse lordotic c-spine curvature;osteophyte/bone spur per radiology report;other (see comments) u/a to visualize osteophyte on previous study 2/2 shoulder artifact -RS -- reverse lordotic c-spine curvature -RS Anatomical abnormalities functional impact other (see comments) ? fxnl impact - RS -- other (see comments) ? functional impact -RS Penetration Before the Swallow thin liquids;secondary to reduced back of tongue control;secondary to delayed swallow initiation or mistiming -RS -- thin liquids;nectar-thick liquids;honey-thick liquids;secondary to reduced back of tongue control;secondary to delayed swallow initiation or mistiming -RS Penetration During the Swallow thin liquids;secondary to delayed swallow initiation or mistiming;secondary to reduced laryngeal elevation;secondary to reduced vestibular closure -RS -- thin liquids;nectar-thick liquids;secondary to delayed swallow initiation or mistiming;secondary to reduced laryngeal elevation;secondary to reduced vestibular closure -RS Aspiration During the Swallow -- -- thin liquids;secondary to delayed swallow initiation or mistiming;secondary to reduced laryngeal elevation;secondary to reduced vestibular closure;other (see comments) u/a to confirm/r/o 2/2 artifact prohibiting view. Best visualized on series 3 -RS Penetration After the Swallow thin liquids;secondary to residue;in pyriform sinuses -RS -- -- Depth of Penetration deep;shallow -RS -- -- Response to Penetration No -RS -- No -RS No spontaneous response to penetration and effective laryngeal clearance with cue (see comments) -RS -- non-effective laryngeal clearance with cue (see comments) -RS Response to Aspiration -- -- No -RS No spontaneous response to aspiration and -- -- non-effective subglottic clearance with cue (see comments) -RS Rosenbek's Scale thin:;3--->level 3 -RS -- thin:;8--->level 8;nectar:;3--->level 3;honey:;2--->level 2 -RS Pharyngeal Residue thin liquids;valleculae;pyriform sinuses;secondary to reduced base of tongue retraction;secondary to reduced posterior pharyngeal wall stripping;secondary to reduced laryngeal elevation;secondary to reduced hyolaryngeal excursion -RS -- diffuse within pharynx;secondary to reducedbase of tongue retraction;secondary to reduced posterior pharyngeal wall stripping;secondary to reduced laryngeal elevation;secondary to reduced hyolaryngeal excursion -RS Response to Residue cleared residue with compensatory maneuver (see comments) - RS -- cleared residue with spontaneous subsequent swallow;cleared residue with cued swallow -RS Attempted Compensatory Maneuvers bolus size;bolus presentation style;chin tuck - RS -- bolus size;bolus presentation style;chin tuck -RS Response to Attempted Compensatory Maneuvers prevented penetration;reduced residue -RS -- preventedpenetration;did not prevent penetration -RS Successful Compensatory Maneuver Competency patient able to;demonstrate compensations;family able to;independently -RS -- patient able to;independently;other (see comments) no straws -RS Pharyngeal Phase, Comment Improved since previous assessment though mild pharyngeal impairment persists. Chin tuck head posture successfully eliminates both penetration and pharyngeal residue. Education with pt and son following study in room including review of images on screen. Both pt and son verbalized understanding of strategy use, pt able to independently recall and demonstrate. -RS -- Pharyngeal impairment appears worsened from FEES completed earlier this week. Pt does endorse SOA t/o exam which was related to RN -RS Swallowing Quality of Life Assessment Psychosocial Eating History -- certain food types very important to daily life;food important to aspect of social life;high motivation to achievement/increase oral intake;social eating is important -RS -- Patient/family preferences -- Avoid nasogastric tube;Avoid gastrostomy tube -RS -- Education and counseling provided Signs of aspiration;Silent aspiration;Risks of aspiration;Safest diet options;Compensatory strategy recommendations and rationale -RS Signs of aspiration;Silent aspiration;Safest diet options;Risks of aspiration;Comfort diet options;Pleasure feedings;Alternate nutrition/hydration options, risks, and benefits;Oral care recommendations and rationale;Aspiration precautions;Compensatory strategy recommendations and rationale -RS Signs of aspiration;Silent aspiration;Risks of aspiration;Safest diet options -RS PSYCH TECH Evaluation Clinical Impression PSYCH TECH Swallowing Diagnosis mild;oral dysphagia;pharyngeal dysphagia -RS -- mild;oral dysphagia;mod-severe;pharyngeal dysphagia -RS Functional Impact risk of aspiration/pneumonia -RS -- risk of aspiration/pneumonia -RS Rehab Potential/Prognosis, Swallowing good, to achieve stated therapy goals -RS -- good, to achievestated therapy goals -RS Swallow Criteria for Skilled Therapeutic Interventions Met demonstrates skilled criteria -RS -- demonstrates skilled criteria -RS PSYCH TECH Treatment Clinical Impressions Treatment Assessment (PSYCH TECH) -- mild;oral dysphagia;moderate-severe;pharyngeal dysphagia -RS -- Treatment Assessment Comments (PSYCH TECH) -- Lengthy education w pt and family. Discussed MBS results including review of all images on screen. Discussed modified diet, comfort diet, goal of rehab in [facility], resp status, feelings of SOA, palatable food preferences, aspiration, silent aspiration, dysphagia, pharyngeal exs, oral care, free water, and repeat instrumental timeframe. Hospitalist PICKLE PUMPER to order several more tests in light of SOA c/o and new cxr findings. If OK'd by hospital medicine team wouldlike to add small sips of free water between meals and after oral care. Pt is agreeable to independent practice of pharyngeal exs and repeat instrumental early next week. Pt and son verbalized understanding and appreciation. -RS -- Plan for Continued Treatment (PSYCH TECH) -- continue treatment per plan of care -RS -- Care Plan Review -- evaluation/treatment results reviewed;care plan/treatment goals reviewed;risks/benefits reviewed -RS -- Recommendations Therapy Frequency (Swallow) 5 days per week -RS 5 days per week -RS 5 days per week -RS Predicted Duration Therapy Intervention (Days) 2 weeks -RS 2 weeks -RS 2 weeks -RS PSYCH TECH Diet Recommendation soft to chew textures;chopped;thin liquids -RS mechanical ground textures;no mixed consistencies;honey thick liquids -RS mechanical ground textures;no mixed consistencies;honey thick liquids -RS Recommended Diagnostics -- reassess via VFSS (MBS);other (see comments) early next week -RS -- Recommended Precautions and Strategies chin tuck -RS no straw;small bites of food and sips of liquid;upright posture during/after eating;general aspiration precautions -RS no straw;small bites of food and sips of liquid;upright posture during/after eating;general aspiration precautions -RS Oral Care Recommendations Oral Care BID/PRN;Toothbrush -RS Oral Care BID/PRN;Toothbrush -RS Oral Care BID/PRN;Suction toothbrush -RS PSYCH TECH Rec. for Method of Medication Administration as tolerated must utilize chin tuck with all PO -RS meds whole;with thick liquids;with puree -RS meds whole;with thick liquids;with puree -RS Monitor for Signs of Aspiration yes;notify PSYCH TECH if any concerns -RS yes;notify PSYCH TECH if any concerns -RS yes;notify PSYCH TECH if any concerns -RS Anticipated Discharge Disposition (PSYCH TECH) inpatient rehabilitation facility -RS inpatient rehabilitation facility -RS inpatient rehabilitation facility -RS User Jung (r) = Recorded By, (t) = Taken By, (c) = Cosigned By Initials Name Effective Dates RS Andrea Dukes MS [facility]-PSYCH TECH 07/03/23 - EDUCATION The patient has been educated in the following areas: Dysphagia (Swallowing Impairment) Modified Diet Instruction. PSYCH TECH GOALS Row Name 09/05/25 0830 09/02/25 1315 09/02/25 1100 (LTG) Patient will demonstrate functional swallow for Diet Texture (Demonstrate functional swallow) regular textures -RS regular textures -RS regular textures -RS Liquid viscosity (Demonstrate functional swallow) thin liquids -RS thin liquids -RS thin liquids -RS Reynolds (Demonstrate functional swallow) independently (over 90% accuracy) -RS independently (over 90% accuracy) -RS independently (over 90% accuracy) -RS Time Frame (Demonstrate functional swallow) 2 weeks -RS 2 weeks -RS 2 weeks -RS Progress/Outcomes (Demonstrate functional swallow) goal ongoing -RS goal ongoing -RS goal ongoing -RS (STG) Patient will tolerate trials of Consistencies Trialed (Tolerate trials) soft to chew (chopped) textures;thin liquids -RS mechanicalground textures;honey/ moderately thick liquids -RS mechanical ground textures;honey/ moderately thick liquids -RS Desired Outcome (Tolerate trials) with use of compensatory strategies (see comments);without signs/symptoms of aspiration;without signs of distress -RS without signs/symptoms of aspiration;without signs of distress;with adequate oral prep/transit/clearance;with use of compensatory strategies (see comments) - RS without signs/symptoms of aspiration;without signs of distress;with adequate oral prep/transit/clearance;with use of compensatory strategies (see comments) -RS Reynolds (Tolerate trials) with minimal cues (75-90% accuracy) -RS with minimal cues (75-90% accuracy) -RS with minimal cues (75-90% accuracy) -RS Time Frame (Tolerate trials) 1 week -RS 1 week -RS 1 week -RS Progress/Outcomes (Tolerate trials) goal revised this date -RS goal revised this -RS goal revised this date -RS (STG) Patient will tolerate therapeutic trials of Consistencies Trialed (Tolerate therapeutic trials) soft to chew (chopped) textures;honey/ moderately thick liquids -RS soft to chew (chopped) textures;honey/ moderately thick liquids -RS soft to chew (chopped) textures;honey/ moderately thick liquids -RS Desired Outcome (Tolerate therapeutic trials) without signs/symptoms of aspiration;without signs ofdistress;with adequate oral prep/transit/clearance - RS without signs/symptoms of aspiration;withoutsigns of distress;with adequate oral prep/transit/clearance -RS without signs/symptoms of aspiration;without signs of distress;with adequate oral prep/transit/clearance -RS Reynolds (Tolerate therapeutic trials) with minimal cues (75-90% accuracy) - RS with minimal cues (75-90% accuracy) -RS with minimal cues (75-90% accuracy) -RS Time Frame (Tolerate therapeutic trials) 1 week -RS 1 week -RS 1 week -RS Progress/Outcomes (Tolerate therapeutic trials) goal met -RS goal revised this -RS goal revised this date -RS (STG) Lingual Strengthening Goal 1 (PSYCH TECH) Activity (Lingual Strengthening Goal 1, PSYCH TECH) increase tongue back strength -RS increase tongue backstrength -RS increase tongue back strength -RS Increase Tongue Back Strength lingual resistance exercises -RS lingual resistance exercises -RS lingual resistance exercises -RS Reynolds/Accuracy (Lingual Strengthening Goal 1, PSYCH TECH) with minimal cues (75- 90% accuracy) -RS with minimal cues (75-90% accuracy) -RS with minimal cues (75- 90% accuracy) -RS Time Frame (Lingual Strengthening Goal 1, PSYCH TECH) 1 week -RS 1 week -RS 1 week -RS Progress/Outcomes (Lingual Strengthening Goal 1, PSYCH TECH) goal ongoing -RS goal ongoing -RS goal ongoing -RS (STG) Pharyngeal Strengthening Exercise Goal 1 (PSYCH TECH) Activity (Pharyngeal Strengthening Goal 1, PSYCH TECH) increase timing;increase superior movement of the hyolaryngeal complex;increase anterior movement of the hyolaryngeal complex;increase closure at entrance to airway/closure of airway at glottis;increase squeeze/positive pressure generation;increase tongue base retraction -RS increase timing;increase superior movement of the hyolaryngeal complex;increase anterior movement of the hyolaryngeal complex;increase closure at entrance to airway/closure ofairway at glottis;increase squeeze/positive pressure generation;increase tongue base retraction -RSincrease timing;increase superior movement of the hyolaryngeal complex;increase anterior movement of the hyolaryngeal complex;increase closure at entrance to airway/closure of airway at glottis;increase squeeze/positive pressure generation;increase tongue base retraction -RS Increase Timing prepping - 3 second prep or suck swallow or 3-step swallow -RS prepping - 3 second prep or suck swallow or 3-step swallow -RS prepping - 3 second prep or suck swallow or 3-step swallow -RS Increase Superior Movement of the Hyolaryngeal Complex Patience -RS Patience -RS Patience -RS Increase Anterior Movement of the Hyolaryngeal Complex chin tuck against resistance (CTAR) -RS chintuck against resistance (CTAR) -RS chin tuck against resistance (CTAR) -RS Increase Closure at Entrance to Airway/Closure of Airway at Glottis supraglottic swallow -RS supraglottic swallow -RS supraglottic swallow -RS Increase Squeeze/Positive Pressure Generation hard effortful swallow -RS hard effortful swallow -RShard effortful swallow -RS Increase Tongue Base Retraction mike -RS mike -RS mike -RS Reynolds/Accuracy (Pharyngeal Strengthening Goal 1, PSYCH TECH) with minimal cues (75-90% accuracy) -RS with minimal cues (75-90% accuracy) -RS with minimal cues (75-90% accuracy) -RS Time Frame (Pharyngeal Strengthening Goal 1, PSYCH TECH) 1 week -RS 1 week -RS 1 week -RS Progress/Outcomes (Pharyngeal Strengthening Goal 1, PSYCH TECH) goal ongoing -RS goal ongoing -RS goal ongoing -RS Comment (Pharyngeal Strengthening Goal 1, PSYCH TECH) Came back to room and demo'd all pharyngeal exercises and reviewed dysphagia exercise sheet w pt and son -RS -- -- (STG) Swallow Compensatory Strategies Goal 1 (PSYCH TECH) Activity (Swallow Compensatory Strategies/Techniques Goal 1, PSYCH TECH) aspiration precautions;compensatory strategies;chin up posture -RS -- -- Reynolds/Accuracy (Swallow Compensatory Strategies/Techniques Goal 1, PSYCH TECH) independently (over 90% accuracy) -RS -- -- Time Frame (Swallow Compensatory Strategies/Techniques Goal 1, PSYCH TECH) 1 week -RS -- -- Progress/Outcomes (Swallow Compensatory Strategies/Techniques Goal 1, PSYCH TECH) new goal -RS -- -- Comment (Swallow Compensatory Strategies/Techniques Goal 1, PSYCH TECH) Discussed compensatory strategy use w demonstration w pt and son -RS -- -- User Jung (r) = Recorded By, (t) = Taken By, (c) = Cosigned By Initials Name Provider Type RS Andrea Dukes MS [facility]-PSYCH TECH Speech and Language Pathologist Time Calculation: Time Calculation- PSYCH TECH Row Name 09/05/25 1028 Time Calculation- PSYCH TECH PSYCH TECH Start Time 0830 -RS PSYCH TECH Received On 09/05/25 -RS Timed Charges 27637-[id number] Training Stragies & TQ 1st 30 Min 1 -RS Untimed Charges 50451-DX Motion Fluoro Eval Swallow Minutes 56 -RS 62178-HT Treatment Swallow Minutes 12 -RS Total Minutes Untimed Charges Total Minutes 68 -RS Total Minutes 68 -RS User Jung (r) = Recorded By, (t) = Taken By, (c) = Cosigned By Initials Name Provider Type RS Andrea Dukes MS CCC-SLP Speech and Language Pathologist Therapy Charges for Today Code Description Service Date Service Provider Modifiers Qty 41479195190 HC ST MOTION FLUORO EVAL SWALLOW 4 09/05/2025 Andrea Dukes MS CCC- SLP GN [address] TREATMENT SWALLOW 1 09/05/2025 Andrea Dukes MS CCC-SLP GN 1 [id number] HC CAREGIVER TRAINING STRATEGIES & TQ 1ST 30 MINUTES 09/05/2025 Andrea Dukes MS CCC-SLP 1 MS MARIA INES Chatterjee 09/05/2025 * Therapy Treatment Note - Andrea Dukes MS CCC-SLP - 09/02/2025 2:37 PM EST Images from the original note were not included. Acute Care - Speech Language Pathology Swallow Treatment Note and Education Basil Patient Name: Loc Thurman : 1940 Today's Date: 09/02/2025 Admit Date: 08/27/2025 Visit Dx: ICD-10-CM ICD-9-CM 1. Acute pancreatitis, unspecified complication status, unspecified pancreatitis type K85.90 577.0 2. Cholecystitis K81.9 575.10 3. 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 Respiratory insufficiency Shock Past Medical History: Diagnosis Date Cancer COPD (chronic obstructive pulmonary disease) Hyperlipidemia Hypertension Past Surgical History: Procedure Laterality Date APPENDECTOMY CHOLECYSTECTOMY WITH INTRAOPERATIVE CHOLANGIOGRAM N/A 08/28/2025 Procedure: CHOLECYSTECTOMY LAPAROSCOPIC INTRAOPERATIVE CHOLANGIOGRAM; Surgeon: Hermes Jaramillo MD; Location: [facility]; Service: General; Laterality: N/A; COLONOSCOPY HERNIA REPAIR PSYCH TECH Recommendation and Plan Recommended discharge disposition is based on the functional assessment performed by PT/OT/Speech therapy (as applicable) and may not reflect the medical necessity determined by your provider or services covered by an individual patient's insurance plan or patient resource. PSYCH TECH Swallowing Diagnosis: mild, oral dysphagia, mod-severe, pharyngeal dysphagia (09/02/251099) PSYCH TECH Diet Recommendation: mechanical ground textures, no mixed consistencies, honey thick liquids (09/02/251314) Recommended Precautions and Strategies: no straw, small bites of food and sips of liquid, upright posture during/after eating, general aspiration precautions (09/02/251314) PSYCH TECH Rec. for Method of Medication Administration: meds whole, with thick liquids, with puree (09/02/251314) Monitor for Signs of Aspiration: yes, notify PSYCH TECH if any concerns (09/02/251314) Recommended Diagnostics: reassess via VFSS (MBS), other (see comments) (early next week) (09/02/251314) Swallow Criteria for Skilled Therapeutic Interventions Met: demonstrates skilled criteria () Anticipated Discharge Disposition (PSYCH TECH): inpatient rehabilitation facility (09/02/251314) Rehab Potential/Prognosis, Swallowing: good, to achieve stated therapy goals (09/02/251099) Therapy Frequency (Swallow): 5 days per week (09/02/251314) Predicted Duration Therapy Intervention (Days): 2 weeks (09/02/251314) Oral Care Recommendations: Oral Care BID/PRN, Toothbrush (09/02/251314) Treatment Assessment (PSYCH TECH): mild, oral dysphagia, moderate-severe, pharyngeal dysphagia (09/02/251314) Treatment Assessment Comments (PSYCH TECH): Lengthy education w pt and family. Discussed MBS results including review of all images on screen. Discussed modified diet, comfort diet, goal of rehab in [place], resp status, feelings of SOA, palatable food preferences, aspiration, silent aspiration, dysphagia, pharyngeal exs, oral care, free water, and repeat instrumental timeframe. Hospitalist PICKLE PUMPER to order several more tests in light of SOA c/o and new cxr findings. If OK'd by hospital medicine team would like to add small sips of free water between meals and after oral care. Pt is agreeable to independent practice of pharyngeal exs and repeat instrumental early next week. Pt and son verbalized understanding and appreciation. (09/02/251314) Plan for Continued Treatment (PSYCH TECH): continue treatment per plan of care (09/02/251314) Progress: declining SWALLOW EVALUATION (Last 72 Hours) PSYCH TECH Adult Swallow Evaluation Row Name 09/02/25 1315 09/02/25 1100 09/01/25 1530 08/31/25 0815 Rehab Evaluation Document Type therapy note (daily note) -RS re-evaluation -RS therapy note (daily note) -SM re-evaluation -RS Subjective Information no complaints -RS no complaints -RS no complaints -SM no complaints -RS Patient Observations alert;cooperative -RS alert;cooperative -RS alert;cooperative -SM alert;cooperative;agree to therapy -RS Patient/Family/Caregiver Comments/Observations Son, niece, and nephew in law present. Pt gave permission to discuss results of MBS w family present -RS none present -RS -- None present -RS Patient Effort good -RS good -RS good -SM good -RS Symptoms Noted During/After Treatment shortness of breath -RS shortness of breath -RS none -SM none-RS Symptoms Noted, Comment Reported to RN and PICKLE PUMPER via secure chat who came and assessed at bedside -RS reported to RN and transport and radiology staff -RS -- -- Oral Care -- -- patient refused intervention -SM teeth brushed - suction toothbrush -RS General Information Patient Profile Reviewed yes -RS yes -RS yes -SM yes -RS Pertinent History Of Current Problem See previous PSYCH TECH notes -RS See previous PSYCH TECH notes -RS See previous PSYCH TECH notes -SM See previous PSYCH TECH notes. Pt has been cleared for PO diet by surgeon -RS Current Method of Nutrition -- -- pureed;nectar/syrup-thick liquids -SM NPO;large-bore -RS Pain Pretreatment Pain Rating 0/10 - no pain -RS 0/10 - no pain -RS 0/10 - no pain - SM 0/10 - no pain -RS Posttreatment Pain Rating 0/10 - no pain -RS 0/10 - no pain -RS 0/10 - no pain - SM 0/10 - no pain -RS Oral Motor Structure and Function Dentition Assessment -- -- -- upper dentures/partial in place;lower dentures/partial in place -RS Secretion Management -- -- -- WNL/WFL -RS Mucosal Quality -- -- -- dry;sticky -RS General Eating/Swallowing Observations Respiratory Support Currently in Use -- room air -RS room air -SM nasal cannula -RS O2 Liters -- -- -- 3L -RS Eating/Swallowing Skills -- fed by PSYCH TECH;needed assist;self-fed -RS self-fed;fed by PSYCH TECH;needed assist-SM fed by staff/caregiver -RS Positioning During Eating -- upright 90 degree;upright in chair -RS upright 90 degree;upright in chair - upright 90 degree;upright in bed -RS Utensils Used -- spoon;cup;straw -RS straw - spoon;cup;straw -RS Consistencies Trialed -- thin liquids;nectar/syrup-thick liquids;honey-thick liquids;pureed;mixed consistency -RS regular textures;thin liquids;nectar/syrup- thick liquids;ice chips - soft to chew textures;mechanical ground textures;mixed consistency;pureed;thin liquids;nectar/syrup-thick liquids -RS MBS/VFSS Interpretation Oral Prep Phase -- WFL -RS -- -- Oral Transit Phase -- impaired -RS -- -- Oral Residue -- WFL -RS -- -- Oral Transit Phase Impaired Oral Transit Phase -- premature spillage of liquids into pharynx -RS -- -- Premature Spillage of Liquids into Pharynx -- thin liquids;nectar-thick liquids;honey-thick liquids-RS -- -- Initiation of Pharyngeal Swallow Initiation of Pharyngeal Swallow -- bolus in valleculae -RS -- -- Pharyngeal Phase -- impaired pharyngeal phase of swallowing -RS -- -- Anatomical abnormalities noted -- reverse lordotic c-spine curvature -RS -- -- Anatomical abnormalities functional impact -- other (see comments) ? functional impact -RS -- -- Penetration Before the Swallow -- thin liquids;nectar-thick liquids;honey-thick liquids;secondary to reduced back of tongue control;secondary to delayed swallow initiation or mistiming -RS -- -- Penetration During the Swallow -- thin liquids;nectar-thick liquids;secondary to delayed swallow initiation or mistiming;secondary to reduced laryngeal elevation;secondary to reduced vestibular closure -RS -- -- Aspiration During the Swallow -- thin liquids;secondary to delayed swallow initiation or mistiming;secondary to reduced laryngeal elevation;secondary to reduced vestibular closure;other (see comments) u/a to confirm/r/o 2/2 artifact prohibiting view. Best visualized on series 3 -RS -- -- Response to Penetration -- No -RS -- -- No spontaneous response to penetration and -- non-effective laryngeal clearance with cue (see comments) -RS -- -- Response to Aspiration -- No -RS -- -- No spontaneous response to aspiration and -- non-effective subglottic clearance with cue (see comments) -RS -- -- Rosenbek's Scale -- thin:;8--->level 8;nectar:;3--->level 3;honey:;2--->level 2 -RS -- -- Pharyngeal Residue -- diffuse within pharynx;secondary to reduced base of tongue retraction;secondary to reduced posterior pharyngeal wall stripping;secondary to reduced laryngeal elevation;secondaryto reduced hyolaryngeal excursion -RS -- -- Response to Residue -- cleared residue with spontaneous subsequent swallow;cleared residue with cued swallow -RS -- -- Attempted Compensatory Maneuvers -- bolus size;bolus presentation style;chin tuck -RS -- -- Response to Attempted Compensatory Maneuvers -- prevented penetration;did not prevent penetration -RS -- -- Successful Compensatory Maneuver Competency -- patient able to;independently;other (see comments) no straws -RS -- -- Pharyngeal Phase, Comment -- Pharyngeal impairment appears worsened from FEES completed earlier this week. Pt does endorse SOA t/o exam which was related to RN -RS -- -- Fiberoptic Endoscopic Evaluation of Swallowing (FEES) Risks/Benefits Reviewed -- -- -- risks/benefits explained;patient;agreed to eval -RS Nasal Entry -- -- -- left: -RS Scope serial number/identification -- -- -- 338 -RS Special Considerations -- -- -- large bore NGT in place, not yet appropriate to remove -RS Anatomy and Physiology Anatomic Considerations -- -- -- edema;erythema -RS Base of Tongue -- -- -- symmetrical -RS Epiglottis -- -- -- WFL -RS Laryngeal Function Breathing -- -- -- symmetrical -RS Laryngeal Function Phonation -- -- -- symmetrical -RS Laryngeal Function to Breath Hold -- -- -- can't sustain closure -RS Secretion Rating Scale (Steven et alGudelia 1995) -- -- -- 2- secretions initially outside the vestibule but later entered the vestibule -RS Secretion Description -- -- -- thick;white -RS Ice Chips -- -- -- elicited swallow -RS Spontaneous Swallow -- -- -- frequency reduced -RS Sensory -- -- -- sensed scope -RS FEES Interpretation Oral Phase -- -- -- reduced lingual control;prespill of liquids into pharynx;prolonged manipulation;with solids only -RS Initiation of Pharyngeal Swallow Initiation of Pharyngeal Swallow -- -- -- bolus in valleculae -RS Pharyngeal Phase -- -- -- impaired pharyngeal phase of swallowing -RS Aspiration During the Swallow -- -- -- thin liquids;secondary to delayed swallow initiation or mistiming;secondary to reduced laryngeal elevation;secondary to reduced vestibular closure -RS Response to Aspiration -- -- -- No -RS No spontaneous response to aspiration with -- -- -- effective subglottic clearance with cue (see comments) -RS Rosenbek's Scale -- -- -- thin:;8-->Level 8;nectar:;1-->Level 1 -RS Residue -- -- -- diffuse within pharynx;secondary to reduced base of tongue retraction;secondary toreduced posterior pharyngeal wall stripping;secondary to reduced laryngeal elevation;secondary to reduced hyolaryngeal excursion;other (see comments) mild but diffuse -RS Response to Residue -- -- -- cleared residue;with spontaneous subsequent swallow;with cued swallow -RS Attempted Compensatory Maneuvers -- -- -- bolus size;bolus presentation style -RS Response to Attempted Compensatory Maneuvers -- -- -- did not prevent aspiration -RS FEES Summary -- -- -- PO diet to be ordered at discretion of surgeon. May want to initiate clear (nectar) liquids and advance. Unsure why oral phase so prolonged given lack of isolated lingual/labialweakness (with the exception of tongue back). Given prolonged oral phase, recommend puree solids which can be upgraded at bedside. Would anticipate quick pharyngeal recovery. -RS Swallowing Quality of Life Assessment Psychosocial Eating History certain food types very important to daily life;food important to aspect of social life;high motivation to achievement/increase oral intake;social eating is important -RS -- -- -- Patient/family preferences Avoid nasogastric tube;Avoid gastrostomy tube -RS -- -- -- Education and counseling provided Signs of aspiration;Silent aspiration;Safest diet options;Risks of aspiration;Comfort diet options;Pleasure feedings;Alternate nutrition/hydration options, risks, and benefits;Oral care recommendations and rationale;Aspiration precautions;Compensatory strategy recom mendations and rationale -RS Signs of aspiration;Silent aspiration;Risks of aspiration;Safest diet options -RS -- Signs of aspiration;Silent aspiration;Risks of aspiration -RS PSYCH TECH Evaluation Clinical Impression PSYCH TECH Swallowing Diagnosis -- mild;oral dysphagia;mod-severe;pharyngeal dysphagia -RS -- moderate;oral dysphagia;pharyngeal dysphagia -RS Functional Impact -- risk of aspiration/pneumonia -RS -- risk of aspiration/pneumonia -RS Rehab Potential/Prognosis, Swallowing -- good, to achieve stated therapy goals - RS -- good, to achieve stated therapy goals -RS Swallow Criteria for Skilled Therapeutic Interventions Met -- demonstrates skilled criteria -RS -- demonstrates skilled criteria -RS PSYCH TECH Treatment Clinical Impressions Treatment Assessment (PSYCH TECH) mild;oral dysphagia;moderate-severe;pharyngeal dysphagia -RS -- toleration of diet;clinical signs of;aspiration -SM -- Treatment Assessment Comments (PSYCH TECH) Lengthy education w pt and family. Discussed MBS results including review of all images on screen. Discussed modified diet, comfort diet, goal of rehab in [place], resp status, feelings of SOA, palatable food preferences, aspiration, silent aspiration, dysphagia, pharyngeal exs, oral care, free water, and repeat instrumental timeframe. Hospitalist PICKLE PUMPER to order several more tests in light of SOA c/o and new cxr findings. If OK'd by hospital medicine team would like to add small sips of free water between meals and after oral care. Pt is agreeable to independentpractice of pharyngeal exs and repeat instrumental early next week. Pt and son verbalized understanding and appreciation. -RS -- Pt requesting thin liquids. Explained justification of thickened liquids -SM -- Daily Summary of Progress (PSYCH TECH) -- -- progress toward functional goals is good - SM -- Plan for Continued Treatment (PSYCH TECH) continue treatment per plan of care -RS -- continue treatment per plan of care -SM -- Care Plan Review evaluation/treatment results reviewed;care plan/treatment goals reviewed;risks/benefits reviewed -RS -- evaluation/treatment results reviewed;patient/other agree to care plan -SM -- Recommendations Therapy Frequency (Swallow) 5 days per week -RS 5 days per week -RS 5 days per week -SM 5 days per week -RS Predicted Duration Therapy Intervention (Days) 2 weeks -RS 2 weeks -RS 2 weeks - SM 2 weeks -RS PSYCH TECH Diet Recommendation mechanical ground textures;no mixed consistencies;honey thick liquids -RS mechanical ground textures;no mixed consistencies;honey thick liquids -RS mechanical ground textures;nectar thick liquids;ice chips between meals after oral care, with supervision -SM puree;nectar thick liquids;other (see comments) PO diet at discretion of surgeon only -RS Recommended Diagnostics reassess via VFSS (MBS);other (see comments) early next week -RS -- reassess via FEES -SM -- Recommended Precautions and Strategies no straw;small bites of food and sips of liquid;upright posture during/after eating;general aspiration precautions -RS no straw;small bites of food and sips of liquid;upright posture during/after eating;general aspiration precautions -RS upright posture during/after eating;general aspiration precautions -SM upright posture during/after eating;general aspiration precautions -RS Oral Care Recommendations Oral Care BID/PRN;Toothbrush -RS Oral Care BID/PRN;Suction toothbrush -RSOral Care BID/PRN;Suction toothbrush -SM Oral Care BID/PRN;Suction toothbrush -RS PSYCH TECH Rec. for Method of Medication Administration meds whole;with thick liquids;with puree -RS meds whole;with thick liquids;with puree -RS meds whole;with thick liquids -SM meds whole;with thick liquids;meds via alternate route -RS Monitor for Signs of Aspiration yes;notify PSYCH TECH if any concerns -RS yes;notify PSYCH TECH if any concerns -RS yes;notify PSYCH TECH if any concerns -SM yes;notify PSYCH TECH if any concerns -RS Anticipated Discharge Disposition (PSYCH TECH) inpatient rehabilitation facility -RS inpatient rehabilitation facility -RS inpatient rehabilitation facility -SM inpatient rehabilitation facility -RS User Jung (r) = Recorded By, (t) = Taken By, (c) = Cosigned By Initials Name Effective Dates RS Andrea Dukes MS CCC-PSYCH TECH 07/03/23 - Nora Weiner MS CF-PSYCH TECH 03/24/25 - EDUCATION The patient has been educated in the following areas: Dysphagia (Swallowing Impairment) Modified Diet Instruction. PSYCH TECH GOALS Row Name 09/02/25 1315 09/02/25 1100 09/01/25 1530 (LTG) Patient will demonstrate functional swallow for Diet Texture (Demonstrate functional swallow) regular textures -RS regular textures -RS regular textures -SM Liquid viscosity (Demonstrate functional swallow) thin liquids -RS thin liquids -RS thin liquids -SM Reynolds (Demonstrate functional swallow) independently (over 90% accuracy) -RS independently (over 90% accuracy) -RS independently (over 90% accuracy) -SM Time Frame (Demonstrate functional swallow) 2 weeks -RS 2 weeks -RS 2 weeks -SM Progress/Outcomes (Demonstrate functional swallow) goal ongoing -RS goal ongoing -RS continuing progress toward goal -SM (STG) Patient will tolerate trials of Consistencies Trialed (Tolerate trials) mechanical ground textures;honey/ moderately thick liquids -RS mechanical ground textures;honey/ moderately thick liquids -RS mechanical ground textures;nectar/ mildly thick liquids -SM Desired Outcome (Tolerate trials) without signs/symptoms of aspiration;without signs of distress;with adequate oral prep/transit/clearance;with use of compensatory strategies (see comments) -RS without signs/symptoms of aspiration;without signs of distress;with adequate oral prep/transit/clearance;w ith use of compensatory strategies (see comments) -RS without signs/symptoms of aspiration;without signs of distress;with adequate oral prep/transit/clearance -SM Reynolds (Tolerate trials) with minimal cues (75-90% accuracy) -RS with minimal cues (75-90% accuracy) -RS with minimal cues (75-90% accuracy) -SM Time Frame (Tolerate trials) 1 week -RS 1 week -RS 1 week -SM Progress/Outcomes (Tolerate trials) goal revised this date -RS goal revised this date -RS goal revised this date -SM Comment (Tolerate trials) -- -- Upgraded to [facility] grnd solids -SM (STG) Patient will tolerate therapeutic trials of Consistencies Trialed (Tolerate therapeutic trials) soft to chew (chopped) textures;honey/ moderately thick liquids -RS soft to chew (chopped) textures;honey/ moderately thick liquids -RS soft to chew (chopped) textures;nectar/ mildly thick liquids -SM Desired Outcome (Tolerate therapeutic trials) without signs/symptoms of aspiration;without signs ofdistress;with adequate oral prep/transit/clearance - RS without signs/symptoms of aspiration;withoutsigns of distress;with adequate oral prep/transit/clearance -RS without signs/symptoms of aspiration;without signs of distress;with adequate oral prep/transit/clearance -SM Reynolds (Tolerate therapeutic trials) with minimal cues (75-90% accuracy) - RS with minimal cues (75-90% accuracy) -RS with minimal cues (75-90% accuracy) -SM Time Frame (Tolerate therapeutic trials) 1 week -RS 1 week -RS 1 week -SM Progress/Outcomes (Tolerate therapeutic trials) goal revised this date -RS goal revised this date -RS continuing progress toward goal -SM Comment (Tolerate therapeutic trials) -- -- Per RN, pt requesting thin liquids all day. Assessed ice and sips of thin water at bedside, pt consistently demonstrating TC. No s/sxs w/ nectar or solid trials. Oral concerns w/ solid, but OK to upgrade to [facility] grnd and monitor tolerance -SM (STG) Lingual Strengthening Goal 1 (PSYCH TECH) Activity (Lingual Strengthening Goal 1, PSYCH TECH) increase tongue back strength -RS increase tongue backstrength -RS increase tongue back strength -SM Increase Tongue Back Strength lingual resistance exercises -RS lingual resistance exercises -RS lingual resistance exercises -SM Reynolds/Accuracy (Lingual Strengthening Goal 1, PSYCH TECH) with minimal cues (75- 90% accuracy) -RS with minimal cues (75-90% accuracy) -RS with minimal cues (75- 90% accuracy) -SM Time Frame (Lingual Strengthening Goal 1, PSYCH TECH) 1 week -RS 1 week -RS 1 week -SM Progress/Outcomes (Lingual Strengthening Goal 1, PSYCH TECH) goal ongoing -RS goal ongoing -RS continuing progress toward goal -SM (STG) Pharyngeal Strengthening Exercise Goal 1 (PSYCH TECH) Activity (Pharyngeal Strengthening Goal 1, PSYCH TECH) increase timing;increase superior movement of the hyolaryngeal complex;increase anterior movement of the hyolaryngeal complex;increase closure at entrance to airway/closure of airway at glottis;increase squeeze/positive pressure generation;increase tongue base retraction -RS increase timing;increase superior movement of the hyolaryngeal complex;increase anterior movement of the hyolaryngeal complex;increase closure at entrance to airway/closure ofairway at glottis;increase squeeze/positive pressure generation;increase tongue base retraction -RSincrease timing;increase superior movement of the hyolaryngeal complex;increase anterior movement of the hyolaryngeal complex;increase closure at entrance to airway/closure of airway at glottis;increase squeeze/positive pressure generation;increase tongue base retraction -SM Increase Timing prepping - 3 second prep or suck swallow or 3-step swallow -RS prepping - 3 second prep or suck swallow or 3-step swallow -RS prepping - 3 second prep or suck swallow or 3-step swallow -SM Increase Superior Movement of the Hyolaryngeal Complex Patience -RS Patience -RS Patience -SM Increase Anterior Movement of the Hyolaryngeal Complex chin tuck against resistance (CTAR) -RS chintuck against resistance (CTAR) -RS chin tuck against resistance (CTAR) -SM Increase Closure at Entrance to Airway/Closure of Airway at Glottis supraglottic swallow -RS supraglottic swallow -RS supraglottic swallow -SM Increase Squeeze/Positive Pressure Generation hard effortful swallow -RS hard effortful swallow -RShard effortful swallow -SM Increase Tongue Base Retraction mike -RS mike -RS mike -SM Reynolds/Accuracy (Pharyngeal Strengthening Goal 1, PSYCH TECH) with minimal cues (75-90% accuracy) -RS with minimal cues (75-90% accuracy) -RS with minimal cues (75-90% accuracy) -SM Time Frame (Pharyngeal Strengthening Goal 1, PSYCH TECH) 1 week -RS 1 week -RS 1 week -SM Progress/Outcomes (Pharyngeal Strengthening Goal 1, PSYCH TECH) goal ongoing -RS goal ongoing -RS continuing progress toward goal -SM Comment (Pharyngeal Strengthening Goal 1, PSYCH TECH) -- -- Demo'd all and left at bedside -SM Row Name 08/31/25 0815 (LT) Patient will demonstrate functional swallow for Diet Texture (Demonstrate functional swallow) regular textures -RS Liquid viscosity (Demonstrate functional swallow) thin liquids -RS Reynolds (Demonstrate functional swallow) independently (over 90% accuracy) -RS Time Frame (Demonstrate functional swallow) 2 weeks -RS Progress/Outcomes (Demonstrate functional swallow) new goal -RS (STG) Patient will tolerate trials of Consistencies Trialed (Tolerate trials) pureed textures;nectar/ mildly thick liquids -RS Desired Outcome (Tolerate trials) without signs/symptoms of aspiration;without signs of distress;with adequate oral prep/transit/clearance -RS Reynolds (Tolerate trials) with minimal cues (75-90% accuracy) -RS Time Frame (Tolerate trials) 1 week -RS Progress/Outcomes (Tolerate trials) new goal -RS (STG) Patient will tolerate therapeutic trials of Consistencies Trialed (Tolerate therapeutic trials) soft to chew (chopped) textures;nectar/ mildly thick liquids -RS Desired Outcome (Tolerate therapeutic trials) without signs/symptoms of aspiration;without signs ofdistress;with adequate oral prep/transit/clearance -RS Reynolds (Tolerate therapeutic trials) with minimal cues (75-90% accuracy) -RS Time Frame (Tolerate therapeutic trials) 1 week -RS Progress/Outcomes (Tolerate therapeutic trials) new goal -RS (STG) Lingual Strengthening Goal 1 (PSYCH TECH) Activity (Lingual Strengthening Goal 1, PSYCH TECH) increase tongue back strength -RS Increase Tongue Back Strength lingual resistance exercises -RS Reynolds/Accuracy (Lingual Strengthening Goal 1, PSYCH TECH) with minimal cues (75- 90% accuracy) -RS Time Frame (Lingual Strengthening Goal 1, PSYCH TECH) 1 week -RS Progress/Outcomes (Lingual Strengthening Goal 1, PSYCH TECH) new goal -RS (STG) Pharyngeal Strengthening Exercise Goal 1 (PSYCH TECH) Activity (Pharyngeal Strengthening Goal 1, PSYCH TECH) increase timing;increase superior movement of the hyolaryngeal complex;increase anterior movement of the hyolaryngeal complex;increase closure at entrance to airway/closure of airway at glottis;increase squeeze/positive pressure generation;increase tongue base retraction -RS Increase Timing prepping - 3 second prep or suck swallow or 3-step swallow -RS Increase Superior Movement of the Hyolaryngeal Complex Patience -RS Increase Anterior Movement of the Hyolaryngeal Complex chin tuck against resistance (CTAR) -RS Increase Closure at Entrance to Airway/Closure of Airway at Glottis supraglottic swallow -RS Increase Squeeze/Positive Pressure Generation hard effortful swallow -RS Increase Tongue Base Retraction mike -RS Reynolds/Accuracy (Pharyngeal Strengthening Goal 1, PSYCH TECH) with minimal cues (75-90% accuracy) -RS Time Frame (Pharyngeal Strengthening Goal 1, PSYCH TECH) 1 week -RS Progress/Outcomes (Pharyngeal Strengthening Goal 1, PSYCH TECH) new goal -RS User Jung (r) = Recorded By, (t) = Taken By, (c) = Cosigned By Initials Name Provider Type Andrea Mitchell MS CCC-PSYCH TECH Speech and Language Pathologist Nora Weiner, CF-PSYCH TECH Speech and Language Pathologist Time Calculation: Time Calculation- PSYCH TECH Row Name 09/02/25 1435 09/02/25 1302 Time Calculation- PSYCH TECH PSYCH TECH Start Time 1315 -RS 1100 -RS PSYCH TECH Received On 09/02/25 -RS 09/02/25 -RS Timed Charges 05353-Cqamrjzyi Training Stragies & TQ 1st 30 Min 1 -RS -- 57784-Vsoycxyrp Training Stragies & TQ EA Addl 15 Min 1 -RS -- Untimed Charges 78352-ZW Motion Fluoro Eval Swallow Minutes -- 61 -RS 39585-DE Treatment Swallow Minutes 25 -RS -- Total Minutes Untimed Charges Total Minutes 25 -RS 61 -RS Total Minutes 25 -RS 61 -RS User Jung (r) = Recorded By, (t) = Taken By, (c) = Cosigned By Initials Name Provider Type Andrea Mitchell MS CCC-PSYCH TECH Speech and Language Pathologist Therapy Charges for Today Code Description Service Date Service Provider Modifiers Qty 37282031093 HC ST MOTION FLUORO EVAL SWALLOW 4 09/02/2025 Andrea Dukes MS CCC- PSYCH TECH GN [address] TREATMENT SWALLOW 2 09/02/2025 Andrea Dukes MS CCC-PSYCH TECH GN 1 75416330340 HC CAREGIVER TRAINING STRATEGIES & TQ 1ST 30 MINUTES 09/02/2025 Andrea Dukes MS CCC-PSYCH TECH 1 [id number] HC CAREGIVER TRAINING STRATEGIES &TQ EA ADDL 15 MIN 09/02/2025 Andrea Dukes MS CCC-PSYCH TECH 1 MS MARIA INES Chatterjee 09/02/2025 * MBS/VFSS/FEES - Andrea Dukes MS CCC-PSYCH TECH - 09/02/2025 1:04 PM EST Images from the original note were not included. Acute Care - Speech Language Pathology Swallow Re-Assessment [facility] Modified Barium Swallow Study (MBS) Patient Name: Loc Thurman : 1940 Today's Date: 09/02/2025 Admit Date: 08/27/2025 Visit Dx: ICD-10-CM ICD-9-CM 1. Acute pancreatitis, unspecified complication status, unspecified pancreatitis type K85.90 577.0 2. Cholecystitis K81.9 575.10 3. 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 Respiratory insufficiency Shock Past Medical History: Diagnosis Date Cancer COPD (chronic obstructive pulmonary disease) Hyperlipidemia Hypertension Past Surgical History: Procedure Laterality Date APPENDECTOMY CHOLECYSTECTOMY WITH INTRAOPERATIVE CHOLANGIOGRAM N/A 08/28/2025 Procedure: CHOLECYSTECTOMY LAPAROSCOPIC INTRAOPERATIVE CHOLANGIOGRAM; Surgeon: Hermes Jaramillo MD; Location: [facility]; Service: General; Laterality: N/A; COLONOSCOPY HERNIA REPAIR PSYCH TECH Recommendation and Plan Recommended discharge disposition is based on the functional assessment performed by PT/OT/Speech therapy (as applicable) and may not reflect the medical necessity determined by your provider or services covered by an individual patient's insurance plan or patient resource. PSYCH TECH Swallowing Diagnosis: mild, oral dysphagia, mod-severe, pharyngeal dysphagia (09/02/251099) PSYCH TECH Diet Recommendation: mechanical ground textures, no mixed consistencies, honey thick liquids (09/02/251099) Recommended Precautions and Strategies: no straw, small bites of food and sips of liquid, upright posture during/after eating, general aspiration precautions (09/02/251099) PSYCH TECH Rec. for Method of Medication Administration: meds whole, with thick liquids, with puree (09/02/251099) Monitor for Signs of Aspiration: yes, notify PSYCH TECH if any concerns (09/02/251099) Swallow Criteria for Skilled Therapeutic Interventions Met: demonstrates skilled criteria () Anticipated Discharge Disposition (PSYCH TECH): inpatient rehabilitation facility (09/02/251099) Rehab Potential/Prognosis, Swallowing: good, to achieve stated therapy goals (09/02/251099) Therapy Frequency (Swallow): 5 days per week (09/02/251099) Predicted Duration Therapy Intervention (Days): 2 weeks (09/02/251099) Oral Care Recommendations: Oral Care BID/PRN, Suction toothbrush (09/02/251099) Progress: declining SWALLOW EVALUATION (Last 72 Hours) PSYCH TECH Adult Swallow Evaluation Row Name 09/02/25 1100 09/01/25 0390 08/31/25 0815 Rehab Evaluation Document Type re-evaluation -RS therapy note (daily note) -SM re-evaluation -RS Subjective Information no complaints -RS no complaints -SM no complaints -RS Patient Observations alert;cooperative -RS alert;cooperative -SM alert;cooperative;agree to therapy-RS Patient/Family/Caregiver Comments/Observations none present -RS -- None present -RS Patient Effort good -RS good -SM good -RS Symptoms Noted During/After Treatment shortness of breath -RS none -SM none -RS Symptoms Noted, Comment reported to RN and transport and radiology staff -RS -- -- Oral Care -- patient refused intervention -SM teeth brushed - suction toothbrush -RS General Information Patient Profile Reviewed yes -RS yes -SM yes -RS Pertinent History Of Current Problem See previous PSYCH TECH notes -RS See previous PSYCH TECH notes -SM See previous PSYCH TECH notes. Pt has been cleared for PO diet by surgeon -RS Current Method of Nutrition -- pureed;nectar/syrup-thick liquids -SM NPO;large- bore -RS Pain Pretreatment Pain Rating 0/10 - no pain -RS 0/10 - no pain -SM 0/10 - no pain -RS Posttreatment Pain Rating 0/10 - no pain -RS 0/10 - no pain -SM 0/10 - no pain -RS Oral Motor Structure and Function Dentition Assessment -- -- upper dentures/partial in place;lower dentures/partial in place -RS Secretion Management -- -- WNL/WFL -RS Mucosal Quality -- -- dry;sticky -RS General Eating/Swallowing Observations Respiratory Support Currently in Use room air -RS room air -SM nasal cannula -RS O2 Liters -- -- 3L -RS Eating/Swallowing Skills fed by PSYCH TECH;needed assist;self-fed -RS self-fed;fed by PSYCH TECH;needed assist -SM fed by staff/caregiver -RS Positioning During Eating upright 90 degree;upright in chair -RS upright 90 degree;upright in chair-SM upright 90 degree;upright in bed -RS Utensils Used spoon;cup;straw -RS straw -SM spoon;cup;straw -RS Consistencies Trialed thin liquids;nectar/syrup-thick liquids;honey-thick liquids;pureed;mixed consistency -RS regular textures;thin liquids;nectar/syrup- thick liquids;ice chips -SM soft to chew textures;mechanical ground textures;mixed consistency;pureed;thin liquids;nectar/syrup-thick liquids -RS MBS/VFSS Interpretation Oral Prep Phase WFL -RS -- -- Oral Transit Phase impaired -RS -- -- Oral Residue WFL -RS -- -- Oral Transit Phase Impaired Oral Transit Phase premature spillage of liquids into pharynx -RS -- -- Premature Spillage of Liquids into Pharynx thin liquids;nectar-thick liquids;honey-thick liquids -RS -- -- Initiation of Pharyngeal Swallow Initiation of Pharyngeal Swallow bolus in valleculae -RS -- -- Pharyngeal Phase impaired pharyngeal phase of swallowing -RS -- -- Anatomical abnormalities noted reverse lordotic c-spine curvature -RS -- -- Anatomical abnormalities functional impact other (see comments) ? functional impact -RS -- -- Penetration Before the Swallow thin liquids;nectar-thick liquids;honey-thick liquids;secondary to reduced back of tongue control;secondary to delayed swallow initiation or mistiming -RS -- -- Penetration During the Swallow thin liquids;nectar-thick liquids;secondary to delayed swallow initiation or mistiming;secondary to reduced laryngeal elevation;secondary to reduced vestibular closure -RS -- -- Aspiration During the Swallow thin liquids;secondary to delayed swallow initiation or mistiming;secondary to reduced laryngeal elevation;secondary to reduced vestibular closure;other (see comments) u/a to confirm/r/o 2/2 artifact prohibiting view. Best visualized on series 3 -RS -- -- Response to Penetration No -RS -- -- No spontaneous response to penetration and non-effective laryngeal clearance with cue (see comments) -RS -- -- Response to Aspiration No -RS -- -- No spontaneous response to aspiration and non-effective subglottic clearance with cue (see comments) -RS -- -- Rosenbek's Scale thin:;8--->level 8;nectar:;3--->level 3;honey:;2--->level 2 -RS -- -- Pharyngeal Residue diffuse within pharynx;secondary to reduced base of tongue retraction;secondary to reduced posterior pharyngeal wall stripping;secondary to reduced laryngeal elevation;secondary toreduced hyolaryngeal excursion -RS -- -- Response to Residue cleared residue with spontaneous subsequent swallow;cleared residue with cued swallow -RS -- -- Attempted Compensatory Maneuvers bolus size;bolus presentation style;chin tuck - RS -- -- Response to Attempted Compensatory Maneuvers prevented penetration;did not prevent penetration -RS -- -- Successful Compensatory Maneuver Competency patient able to;independently;other (see comments) no straws -RS -- -- Pharyngeal Phase, Comment Pharyngeal impairment appears worsened from FEES completed earlier this week. Pt does endorse SOA t/o exam which was related to RN -RS -- -- Fiberoptic Endoscopic Evaluation of Swallowing (FEES) Risks/Benefits Reviewed -- -- risks/benefits explained;patient;agreed to eval -RS Nasal Entry -- -- left: -RS Scope serial number/identification -- -- 338 -RS Special Considerations -- -- large bore NGT in place, not yet appropriate to remove -RS Anatomy and Physiology Anatomic Considerations -- -- edema;erythema -RS Base of Tongue -- -- symmetrical -RS Epiglottis -- -- WFL -RS Laryngeal Function Breathing -- -- symmetrical -RS Laryngeal Function Phonation -- -- symmetrical -RS Laryngeal Function to Breath Hold -- -- can't sustain closure -RS Secretion Rating Scale (Steven et al. 1995) -- -- 2- secretions initially outside the vestibule butlater entered the vestibule -RS Secretion Description -- -- thick;white -RS Ice Chips -- -- elicited swallow -RS Spontaneous Swallow -- -- frequency reduced -RS Sensory -- -- sensed scope -RS FEES Interpretation Oral Phase -- -- reduced lingual control;prespill of liquids into pharynx;prolonged manipulation;with solids only -RS Initiation of Pharyngeal Swallow Initiation of Pharyngeal Swallow -- -- bolus in valleculae -RS Pharyngeal Phase -- -- impaired pharyngeal phase of swallowing -RS Aspiration During the Swallow -- -- thin liquids;secondary to delayed swallow initiation or mistiming;secondary to reduced laryngeal elevation;secondary to reduced vestibular closure -RS Response to Aspiration -- -- No -RS No spontaneous response to aspiration with -- -- effective subglottic clearance with cue (see comments) -RS Rosenbek's Scale -- -- thin:;8-->Level 8;nectar:;1-->Level 1 -RS Residue -- -- diffuse within pharynx;secondary to reduced base of tongue retraction;secondary to reduced posterior pharyngeal wall stripping;secondary to reduced laryngeal elevation;secondary to reduced hyolaryngeal excursion;other (see comments) mild but diffuse -RS Response to Residue -- -- cleared residue;with spontaneous subsequent swallow;with cued swallow -RS Attempted Compensatory Maneuvers -- -- bolus size;bolus presentation style -RS Response to Attempted Compensatory Maneuvers -- -- did not prevent aspiration -RS FEES Summary -- -- PO diet to be ordered at discretion of surgeon. May want to initiate clear (nectar) liquids and advance. Unsure why oral phase so prolonged given lack of isolated lingual/labial weakness (with the exception of tongue back). Given prolonged oral phase, recommend puree solids whichcan be upgraded at bedside. Would anticipate quick pharyngeal recovery. -RS Swallowing Quality of Life Assessment Education and counseling provided Signs of aspiration;Silent aspiration;Risks of aspiration;Safest diet options -RS -- Signs of aspiration;Silent aspiration;Risks of aspiration -RS PSYCH TECH Evaluation Clinical Impression PSYCH TECH Swallowing Diagnosis mild;oral dysphagia;mod-severe;pharyngeal dysphagia -RS -- moderate;oral dysphagia;pharyngeal dysphagia -RS Functional Impact risk of aspiration/pneumonia -RS -- risk of aspiration/pneumonia -RS Rehab Potential/Prognosis, Swallowing good, to achieve stated therapy goals -RS -- good, to achievestated therapy goals -RS Swallow Criteria for Skilled Therapeutic Interventions Met demonstrates skilled criteria -RS -- demonstrates skilled criteria -RS PSYCH TECH Treatment Clinical Impressions Treatment Assessment (PSYCH TECH) -- toleration of diet;clinical signs of;aspiration - SM -- Treatment Assessment Comments (PSYCH TECH) -- Pt requesting thin liquids. Explained justification of thickened liquids -SM -- Daily Summary of Progress (PSYCH TECH) -- progress toward functional goals is good -SM -- Plan for Continued Treatment (PSYCH TECH) -- continue treatment per plan of care -SM -- Care Plan Review -- evaluation/treatment results reviewed;patient/other agree to care plan - -- Recommendations Therapy Frequency (Swallow) 5 days per week -RS 5 days per week -SM 5 days per week -RS Predicted Duration Therapy Intervention (Days) 2 weeks -RS 2 weeks -SM 2 weeks -RS PSYCH TECH Diet Recommendation mechanical ground textures;no mixed consistencies;honey thick liquids -RS mechanical ground textures;nectar thick liquids;ice chips between meals after oral care, with supervision -SM puree;nectar thick liquids;other (see comments) PO diet at discretion of surgeon only -RS Recommended Diagnostics -- reassess via FEES - -- Recommended Precautions and Strategies no straw;small bites of food and sips of liquid;upright posture during/after eating;general aspiration precautions -RS upright posture during/after eating;general aspiration precautions -SM upright posture during/after eating;general aspiration precautions -RS Oral Care Recommendations Oral Care BID/PRN;Suction toothbrush -RS Oral Care BID/PRN;Suction toothbrush -SM Oral Care BID/PRN;Suction toothbrush -RS PSYCH TECH Rec. for Method of Medication Administration meds whole;with thick liquids;with puree -RS meds whole;with thick liquids -SM meds whole;with thick liquids;meds via alternate route -RS Monitor for Signs of Aspiration yes;notify PSYCH TECH if any concerns -RS yes;notify PSYCH TECH if any concerns -SM yes;notify PSYCH TECH if any concerns -RS Anticipated Discharge Disposition (PSYCH TECH) inpatient rehabilitation facility -RS inpatient rehabilitation facility - inpatient rehabilitation facility -RS User Jung (r) = Recorded By, (t) = Taken By, (c) = Cosigned By Initials Name Effective Dates RS Andrea Dukes MS [facility]-PSYCH TECH 07/03/23 - Nora Weiner MS CF-PSYCH TECH 03/24/25 - EDUCATION The patient has been educated in the following areas: Dysphagia (Swallowing Impairment) Modified Diet Instruction. PSYCH TECH GOALS Row Name 09/02/25 1100 09/01/25 1530 08/31/25 0855 (LTG) Patient will demonstrate functional swallow for Diet Texture (Demonstrate functional swallow) regular textures -RS regular textures -SM regular textures -RS Liquid viscosity (Demonstrate functional swallow) thin liquids -RS thin liquids -SM thin liquids -RS Reynolds (Demonstrate functional swallow) independently (over 90% accuracy) -RS independently (over 90% accuracy) -SM independently (over 90% accuracy) -RS Time Frame (Demonstrate functional swallow) 2 weeks -RS 2 weeks -SM 2 weeks -RS Progress/Outcomes (Demonstrate functional swallow) goal ongoing -RS continuing progress toward goal-SM new goal -RS (STG) Patient will tolerate trials of Consistencies Trialed (Tolerate trials) mechanical ground textures;honey/ moderately thick liquids -RS mechanical ground textures;nectar/ mildly thick liquids -SM pureed textures;nectar/ mildly thickliquids -RS Desired Outcome (Tolerate trials) without signs/symptoms of aspiration;without signs of distress;with adequate oral prep/transit/clearance;with use of compensatory strategies (see comments) -RS without signs/symptoms of aspiration;without signs of distress;with adequate oral prep/transit/clearance - SM without signs/symptoms of aspiration;without signs of distress;with adequate oral prep/transit/clearance -RS Reynolds (Tolerate trials) with minimal cues (75-90% accuracy) -RS with minimal cues (75-90% accuracy) -SM with minimal cues (75-90% accuracy) -RS Time Frame (Tolerate trials) 1 week -RS 1 week -SM 1 week -RS Progress/Outcomes (Tolerate trials) goal revised this date -RS goal revised this date -SM new goal -RS Comment (Tolerate trials) -- [facility] -- (STG) Patient will tolerate therapeutic trials of Consistencies Trialed (Tolerate therapeutic trials) soft to chew (chopped) textures;honey/ moderately thick liquids -RS soft to chew (chopped) textures;nectar/ mildly thick liquids -SM soft to chew (chopped) textures;nectar/ mildly thick liquids -RS Desired Outcome (Tolerate therapeutic trials) without signs/symptoms of aspiration;without signs ofdistress;with adequate oral prep/transit/clearance - RS without signs/symptoms of aspiration;withoutsigns of distress;with adequate oral prep/transit/clearance -SM without signs/symptoms of aspiration;without signs of distress;with adequate oral prep/transit/clearance -RS Reynolds (Tolerate therapeutic trials) with minimal cues (75-90% accuracy) - RS with minimal cues (75-90% accuracy) -SM with minimal cues (75-90% accuracy) -RS Time Frame (Tolerate therapeutic trials) 1 week -RS 1 week -SM 1 week -RS Progress/Outcomes (Tolerate therapeutic trials) goal revised this date -RS continuing progress toward goal -SM new goal -RS Comment (Tolerate therapeutic trials) -- Per RN, pt requesting thin liquids all day. Assessed ice and sips of thin water at bedside, pt consistently demonstrating TC. No s/sxs w/ nectar or solid trials. Oral concerns w/ solid, but OK to upgrade to [facility] grnd and monitor tolerance - -- (STG) Lingual Strengthening Goal 1 (PSYCH TECH) Activity (Lingual Strengthening Goal 1, PSYCH TECH) increase tongue back strength -RS increase tongue backstrength -SM increase tongue back strength -RS Increase Tongue Back Strength lingual resistance exercises -RS lingual resistance exercises -SM lingual resistance exercises -RS Reynolds/Accuracy (Lingual Strengthening Goal 1, PSYCH TECH) with minimal cues (75- 90% accuracy) -RS with minimal cues (75-90% accuracy) -SM with minimal cues (75- 90% accuracy) -RS Time Frame (Lingual Strengthening Goal 1, PSYCH TECH) 1 week -RS 1 week -SM 1 week -RS Progress/Outcomes (Lingual Strengthening Goal 1, PSYCH TECH) goal ongoing -RS continuing progress toward goal -SM new goal -RS (STG) Pharyngeal Strengthening Exercise Goal 1 (PSYCH TECH) Activity (Pharyngeal Strengthening Goal 1, PSYCH TECH) increase timing;increase superior movement of the hyolaryngeal complex;increase anterior movement of the hyolaryngeal complex;increase closure at entrance to airway/closure of airway at glottis;increase squeeze/positive pressure generation;increase tongue base retraction -RS increase timing;increase superior movement of the hyolaryngeal complex;increase anterior movement of the hyolaryngeal complex;increase closure at entrance to airway/closure ofairway at glottis;increase squeeze/positive pressure generation;increase tongue base retraction -SMincrease timing;increase superior movement of the hyolaryngeal complex;increase anterior movement of the hyolaryngeal complex;increase closure at entrance to airway/closure of airway at glottis;increase squeeze/positive pressure generation;increase tongue base retraction -RS Increase Timing prepping - 3 second prep or suck swallow or 3-step swallow -RS prepping - 3 second prep or suck swallow or 3-step swallow -SM prepping - 3 second prep or suck swallow or 3-step swallow -RS Increase Superior Movement of the Hyolaryngeal Complex Patience -RS Patience -SM Patience -RS Increase Anterior Movement of the Hyolaryngeal Complex chin tuck against resistance (CTAR) -RS chintuck against resistance (CTAR) -SM chin tuck against resistance (CTAR) -RS Increase Closure at Entrance to Airway/Closure of Airway at Glottis supraglottic swallow -RS supraglottic swallow -SM supraglottic swallow -RS Increase Squeeze/Positive Pressure Generation hard effortful swallow -RS hard effortful swallow -SMhard effortful swallow -RS Increase Tongue Base Retraction mike -RS mike -SM mike -RS Reynolds/Accuracy (Pharyngeal Strengthening Goal 1, PSYCH TECH) with minimal cues (75-90% accuracy) -RS with minimal cues (75-90% accuracy) -SM with minimal cues (75-90% accuracy) -RS Time Frame (Pharyngeal Strengthening Goal 1, PSYCH TECH) 1 week -RS 1 week -SM 1 week -RS Progress/Outcomes (Pharyngeal Strengthening Goal 1, PSYCH TECH) goal ongoing -RS continuing progress toward goal -SM new goal -RS Comment (Pharyngeal Strengthening Goal 1, PSYCH TECH) -- Demo'd all and left at bedside - -- User Jung (r) = Recorded By, (t) = Taken By, (c) = Cosigned By Initials Name Provider Type RS Andrea Dukes MS CCC-PSYCH TECH Speech and Language Pathologist Nora eWiner MS CF-PSYCH TECH Speech and Language Pathologist Time Calculation: Time Calculation- PSYCH TECH Row Name 09/02/25 1302 Time Calculation- PSYCH TECH PSYCH TECH Start Time 1100 -RS PSYCH TECH Received On 09/02/25 -RS Untimed Charges 34660-EJ Motion Fluoro Eval Swallow Minutes 61 -RS Total Minutes Untimed Charges Total Minutes 61 -RS Total Minutes 61 -RS User Jung (r) = Recorded By, (t) = Taken By, (c) = Cosigned By Initials Name Provider Type RS Andrea Dukes MS CCC-PSYCH TECH Speech and Language Pathologist Therapy Charges for Today Code Description Service Date Service Provider Modifiers Qty [id number] HC ST MOTION FLUORO EVAL SWALLOW 4 09/02/2025 Andrea Dukes MS CCC- PSYCH TECH GN 1 Andrea Dukes MS CCC-ISAIAH 09/02/2025 * Case Management/Social Work - Daryl Schwab RN - 09/02/2025 12:36 PM EST Continued Stay Note [facility] Patient Name: Loc Thurman Today's Date: 09/02/2025 Admit Date: 08/27/2025 Plan: rehab [facility] Discharge Plan Row Name 09/02/25 1231 Plan Plan rehab [facility] Patient/Family in Agreement with Plan yes Plan Comments Discussed in MDR, speech f/u today. PT/OT today. Per OR notes, will f/u on Friday. I updated Ella @ [facility] in [place], [place] that OR is following up w/him on Friday so d/c will be early next week. Son was interested in cost of transportation to [facility], I called Karel @ [facility] wheelchair van is base of $125 plue $5 each mile. Son stated that either he or may need wheelchair transport and if that is the cost it is what it is. I will fax updated notes to Ella from today to [phone] and I will f/u w/her onFriday her contact number is [phone]. DC plan is [facility] may need wheelchair van transportation vs son transporting. CM will continue to follow. Final Discharge Disposition Code 62 - inpatient rehab facility Discharge Codes No documentation. Expected Discharge Date and Time Expected Discharge Date Expected Discharge Time Sep 06, 2025 Daryl Schwab RN * Therapy Treatment Note - Rhianna Tilley, PT - 09/02/2025 10:28 AM EST Images from the original note were not included. Patient Name: Loc Thurman : 1940 Today's Date: 09/02/2025 Admit Date: 08/27/2025 Visit Dx: ICD-10-CM ICD-9-CM 1. Acute pancreatitis, unspecified complication status, unspecified pancreatitis type K85.90 577.0 2. Cholecystitis K81.9 575.10 3. 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 Respiratory insufficiency Shock Past Medical History: Diagnosis Date Cancer COPD (chronic obstructive pulmonary disease) Hyperlipidemia Hypertension Past Surgical History: Procedure Laterality Date APPENDECTOMY CHOLECYSTECTOMY WITH INTRAOPERATIVE CHOLANGIOGRAM N/A 08/28/2025 Procedure: CHOLECYSTECTOMY LAPAROSCOPIC INTRAOPERATIVE CHOLANGIOGRAM; Surgeon: Hermes Jaramillo MD; Location: [facility]; Service: General; Laterality: N/A; COLONOSCOPY HERNIA REPAIR General Information Row Name 09/02/25 1142 Physical Therapy Time and Intention Document Type therapy note (daily note) -LM Mode of Treatment individual therapy;physical therapy -LM Row Name 09/02/25 1142 General Information Patient Profile Reviewed yes -LM Existing Precautions/Restrictions fall;other (see comments) Abdominal Incision; Anxiety -LM Row Name 09/02/25 1142 Cognition Orientation Status (Cognition) oriented x 3 -LM Row Name 09/02/25 1142 Safety Issues/Impairments Affecting Functional Mobility Safety Issues Affecting Function (Mobility) insight into deficits/self- awareness;safety precaution awareness;safety precautions follow- through/compliance;sequencing abilities -LM Impairments Affecting Function (Mobility) balance;coordination;endurance/activity tolerance;pain;shortness of breath;strength -LM User Jung (r) = Recorded By, (t) = Taken By, (c) = Cosigned By Initials Name Provider Type Rhianna Tilley PT Physical Therapist Mobility Row Name 09/02/25 1143 Bed Mobility Comment, (Bed Mobility) Up in chair upon entering room. With MT going for MBS at end of session. -LM Row Name 09/02/25 1143 Sit-Stand Transfer Sit-Stand Reynolds (Transfers) minimum assist (75% patient effort);1 person assist;verbal cues -LM Assistive Device (Sit-Stand Transfers) walker, front-wheeled -LM Comment, (Sit-Stand Transfer) Vc's for hand placement. Increased time/effort needed. -LM Row Name 09/02/25 1143 Gait/Stairs (Locomotion) Reynolds Level (Gait) minimum assist (75% patient effort);1 person assist;verbal cues -LM Assistive Device (Gait) walker, front-wheeled -LM Distance in Feet (Gait) 20 -LM Deviations/Abnormal Patterns (Gait) bilateral deviations;cassidy decreased;stride length decreased;gait speed decreased -LM Bilateral Gait Deviations forward flexed posture;heel strike decreased -LM Comment, (Gait/Stairs) Vc's for upright posture and to stay inside walker. Pt ambulates at a very slow, cautious pace. Pt very fatigued post activity. -LM User Jung (r) = Recorded By, (t) = Taken By, (c) = Cosigned By Initials Name Provider Type LM Rhianna Tilley, [place] Physical Therapist Obj/Interventions Row Name 09/02/25 1146 Motor Skills Therapeutic Exercise hip;knee;ankle - Row Name 09/02/25 1146 Hip (Therapeutic Exercise) Hip (Therapeutic Exercise) AROM (active range of motion);isometric exercises - Hip AROM (Therapeutic Exercise) bilateral;aBduction;aDduction;sitting;10 repetitions - Hip Isometrics (Therapeutic Exercise) bilateral;gluteal sets;sitting;10 repetitions - Row Name 09/02/25 1146 Knee (Therapeutic Exercise) Knee (Therapeutic Exercise) AROM (active range of motion);isometric exercises - Knee AROM (Therapeutic Exercise) bilateral;heel slides;sitting;10 repetitions - Knee Isometrics (Therapeutic Exercise) bilateral;quad sets;sitting;10 repetitions - Row Name 09/02/25 1146 Ankle (Therapeutic Exercise) Ankle (Therapeutic Exercise) AROM (active range of motion) - Ankle AROM (Therapeutic Exercise) bilateral;dorsiflexion;plantarflexion;sitting;10 repetitions - Row Name 09/02/25 1146 Balance Static Sitting Balance standby assist -LM Position, Sitting Balance unsupported;sitting in chair -LM Static Standing Balance contact guard;1-person assist;verbal cues -LM Dynamic Standing Balance minimal assist;1-person assist;verbal cues -LM Position/Device Used, Standing Balance supported;walker, front-wheeled -LM User Jung (r) = Recorded By, (t) = Taken By, (c) = Cosigned By Initials Name Provider Type Rhianna Montano, [place] Physical Therapist Goals/Plan No documentation. Clinical Impression Row Name 09/02/25 1147 Pain Pretreatment Pain Rating 4/10 -LM Posttreatment Pain Rating 4/10 -LM Pain Location abdomen -LM Pain Side/Orientation generalized -LM Pain Management Interventions exercise or physical activity utilized -LM Response to Pain Interventions activity participation with tolerable pain -LM Row Name 09/02/25 1147 Plan of Care Review Plan of Care Reviewed With patient -LM Progress improving -LM Outcome Evaluation Pt progressing well towards skilled PT goals. Less assist needed with mobility compared to initial evaluation. Pt stood with MinAx1 and increased gait distance to 20 feet using rw with MinAx1. Pt continues to be limited by weakness, decreased activity tolerance, and gait instability. Continue to recommend inpatient rehab at d/c. -LM Row Name 09/02/25 1147 Vital Signs Pre Systolic BP Rehab 179 -LM Pre Treatment Diastolic BP 94 -LM Pretreatment Heart Rate (beats/min) 92 -LM Pre SpO2 (%) 94 -LM O2 Delivery Pre Treatment room air -LM Pre Patient Position Sitting -LM Row Name 09/02/25 1147 Positioning and Restraints Pre-Treatment Position in bed -LM Post Treatment Position other -LM Other Position with other staff with MT going for a MBS -LM User Jung (r) = Recorded By, (t) = Taken By, (c) = Cosigned By Initials Name Provider Type LM Rhianna Tilley, PT Physical Therapist Outcome Measures Row Name 09/02/25 1149 How much help from another person do you currently need... Turning from your back to your side while in flat bed without using bedrails? 2 -LM Moving from lying on back to sitting on the side of a flat bed without bedrails? 2 -LM Moving to and from a bed to a chair (including a wheelchair)? 3 -LM Standing up from a chair using your arms (e.g., wheelchair, bedside chair)? 3 -LM Climbing 3-5 steps with a railing? 2 -LM To walk in hospital room? 3 -LM AM-PAC 6 Clicks Score (PT) 15 -LM Highest Level of Mobility Goal Move to Chair/Commode-4 -LM Row Name 09/02/25 1149 09/02/25 0854 Functional Assessment Outcome Measure Options AM-PAC 6 Clicks Basic Mobility (PT) -LM AM-PAC 6 Clicks Daily Activity (OT)-AC User Jung (r) = Recorded By, (t) = Taken By, (c) = Cosigned By Initials Name Provider Type AC Patsy Abernathy, OT Occupational Therapist LM Rhianna Tilley, PT Physical Therapist Physical Therapy Education Title: PT OT PSYCH TECH Therapies (In Progress) Topic: Physical Therapy (In Progress) Point: Mobility training (In Progress) Learning Progress Summary Patient Acceptance, E, NR by LM at 09/02/2025 1150 Acceptance, E, VU,NR by SULAIMAN at 08/31/2025 1036 Acceptance, E, NR by KG at 08/30/2025 0903 Point: Home exercise program (In Progress) Learning Progress Summary Patient Acceptance, E, NR by LM at 09/02/2025 1150 Point: Body mechanics (Done) Learning Progress Summary Patient Acceptance, E, VU,NR by SULAIMAN at 08/31/2025 1036 Acceptance, E, NR by KG at 08/30/2025 0903 Point: Precautions (In Progress) Learning Progress Summary Patient Acceptance, E, NR by LM at 09/02/2025 1150 Acceptance, E, VU,NR by SULAIMAN at 08/31/2025 1036 Acceptance, E, NR by KG at 08/30/2025 0903 User Jung Initials Effective Dates Name Provider Type Discipline LM 05/06/25 - Rhianna Tilley, PT Physical Therapist PT KG 03/10/20 - Flora Galvan, PT Physical Therapist PT SULAIMAN 06/03/25 - Tee Marina, PT Student PT Student PT PT Recommendation and Plan Recommended discharge disposition is based on the functional assessment performed by PT/OT/Speech therapy (as applicable) and may not reflect the medical necessity determined by your provider or services covered by an individual patient's insurance plan or patient resource. Progress: improving Outcome Evaluation: Pt progressing well towards skilled PT goals. Less assist needed with mobility compared to initial evaluation. Pt stood with MinAx1 and increased gait distance to 20 feet using rwwith MinAx1. Pt continues to be limited by weakness, decreased activity tolerance, and gait instability. Continue to recommend inpatient rehab at d/c. Time Calculation: PT Charges Row Name 09/02/25 1150 Time Calculation Start Time 1028 -LM PT Received On 09/02/25 -LM PT Goal Re-Cert Due Date 09/09/25 -LM Timed Charges 88792 - PT Therapeutic Exercise Minutes 16 -LM 08420 - Gait Training Minutes 10 -LM Total Minutes Timed Charges Total Minutes 26 -LM Total Minutes 26 -LM User Jung (r) = Recorded By, (t) = Taken By, (c) = Cosigned By Initials Name Provider Type LM Rhianna Tilley, PT Physical Therapist Therapy Charges for Today Code Description Service Date Service Provider Modifiers Qty 08978619541 HC GAIT TRAINING EA 15 MIN 09/02/2025 Rhianna Tilley, PT GP 1 80967770452 HC PT THER PROC EA 15 MIN 09/02/2025 Rhianna Tilley, PT GP 1 PT G-Codes Outcome Measure Options: AM-PAC 6 Clicks Basic Mobility (PT) AM-PAC 6 Clicks Score (PT): 15 AM-PAC 6 Clicks Score (OT): 13 PT Discharge Summary Anticipated Discharge Disposition (PT): inpatient rehabilitation facility Rhianna Tilley PT 09/02/2025 * Therapy Treatment Note - Patsy Abernathy, OT - 09/02/2025 7:40 AM EST Images from the original note were not included. Patient Name: Loc Thurman : 1940 Today's Date: 09/02/2025 Admit Date: 08/27/2025 Visit Dx: ICD-10-CM ICD-9-CM 1. Acute pancreatitis, unspecified complication status, unspecified pancreatitis type K85.90 577.0 2. Cholecystitis K81.9 575.10 3. 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 Respiratory insufficiency Shock Past Medical History: Diagnosis Date Cancer COPD (chronic obstructive pulmonary disease) Hyperlipidemia Hypertension Past Surgical History: Procedure Laterality Date APPENDECTOMY CHOLECYSTECTOMY WITH INTRAOPERATIVE CHOLANGIOGRAM N/A 08/28/2025 Procedure: CHOLECYSTECTOMY LAPAROSCOPIC INTRAOPERATIVE CHOLANGIOGRAM; Surgeon: Hermes Jaramillo MD; Location: [facility]; Service: General; Laterality: N/A; COLONOSCOPY HERNIA REPAIR General Information Row Name 09/02/25 0841 OT Time and Intention Document Type therapy note (daily note) - Mode of Treatment occupational therapy - Row Name 09/02/25 0841 General Information Patient Profile Reviewed yes - Existing Precautions/Restrictions fall abdominal incision, anxiety - Barriers to Rehab medically complex;previous functional deficit - Row Name 09/02/25 0841 Cognition Orientation Status (Cognition) oriented x 3 - Row Name 09/02/25 0841 Safety Issues/Impairments Affecting Functional Mobility Safety Issues Affecting Function (Mobility) positioning of assistive device;safety precaution awareness;safety precautions follow- through/compliance;sequencing abilities - Impairments Affecting Function (Mobility) balance;cognition;coordination;endurance/activity tolerance;pain;postural/trunk control;shortness of breath;strength - Cognitive Impairments, Mobility Safety/Performance awareness, need for assistance;safety precautionawareness;safety precaution follow- through;sequencing abilities - User Jung (r) = Recorded By, (t) = Taken By, (c) = Cosigned By Initials Name Provider Type Patsy Abernathy, OT Occupational Therapist Mobility/ADL's Row Name 09/02/25 08 Bed Mobility Bed Mobility supine-sit - Supine-Sit Reynolds (Bed Mobility) moderate assist (50% patient effort);verbal cues - Bed Mobility, Safety Issues decreased use of arms for pushing/pulling;decreased use of legs for bridging/pushing;impaired trunk control for bed mobility - Assistive Device (Bed Mobility) bed rails;head of bed elevated - Comment, (Bed Mobility) reporting dizziness upon sitting, but resolved after sititng ~ 5min, BP stable - Row Name 09/02/25 0843 Transfers Transfers sit-stand transfer;toilet transfer - Row Name 09/02/25 0843 Bed-Chair Transfer Bed-Chair Reynolds (Transfers) verbal cues;minimum assist (75% patient effort) - Assistive Device (Bed-Chair Transfers) walker, front-wheeled - Comment, (Bed-Chair Transfer) increased time and effort, tremulous - Row Name 09/02/25 0843 Sit-Stand Transfer Sit-Stand Reynolds (Transfers) minimum assist (75% patient effort);verbal cues - Assistive Device (Sit-Stand Transfers) walker, front-wheeled - Comment, (Sit-Stand Transfer) VCs for hand placement and to place both feet in walker - Row Name 09/02/2543 Toilet Transfer Reynolds Level (Toilet Transfer) minimum assist (75% patient effort);1 person to manage equipment - Assistive Device (Toilet Transfer) commode, bedside without drop arms -AC Comment, (Toilet Transfer) increased time to take side steps, VCs to sequence - Row Name 09/02/2543 Functional Mobility Functional Mobility- Ind. Level minimum assist (75% patient effort) - Functional Mobility- Device walker, front-wheeled - Functional Mobility-Distance (Feet) -- 4 fft + 4ft - Functional Mobility- Safety Issues step length decreased - Row Name 09/02/25842 Activities of Daily Living BADL Assessment/Intervention lower body dressing;grooming;toileting - Row Name 09/02/25842 Lower Body Dressing Assessment/Training Reynolds Level (Lower Body Dressing) don;socks;dependent (less than 25% patient effort) - Position (Lower Body Dressing) supine - Row Name 09/02/25842 Grooming Assessment/Training Reynolds Level (Grooming) hair care, combing/brushing;oral care regimen;wash face, hands;standby assist -AC Position (Grooming) edge of bed sitting - Comment, (Grooming) bed pushed up to sink for grooming per pt request - Row Name 09/02/25842 Toileting Assessment/Training Reynolds Level (Toileting) adjust/manage clothing;perform perineal hygiene;maximum assist (25% patient effort) - Assistive Devices (Toileting) commode, bedside without drop arms -AC Position (Toileting) supported standing -AC User Jung (r) = Recorded By, (t) = Taken By, (c) = Cosigned By Initials Name Provider Type Patsy Abernathy, OT Occupational Therapist Obj/Interventions Row Name 09/02/2561 Balance Balance Assessment sitting static balance;sitting dynamic balance;standing static balance;standing dynamic balance -AC Static Sitting Balance standby assist -AC Dynamic Sitting Balance contact guard -AC Position, Sitting Balance sitting edge of bed;unsupported -AC Static Standing Balance verbal cues;minimal assist -AC Dynamic Standing Balance verbal cues;minimal assist -AC Position/Device Used, Standing Balance supported;walker, front-wheeled - User Jung (r) = Recorded By, (t) = Taken By, (c) = Cosigned By Initials Name Provider Type Patsy Molina, OT Occupational Therapist Goals/Plan No documentation. Clinical Impression Row Name 09/02/25 0849 Pain Assessment Pretreatment Pain Rating 0/10 - no pain -AC Posttreatment Pain Rating 0/10 - no pain -AC Row Name 09/02/25 0849 Plan of Care Review Plan of Care Reviewed With patient - Progress improving - Outcome Evaluation Pt progressed from mod A to min A with transfers using RW, SBA sitting sinkside to complete grooming, dep LBD. Pt with increased anxiety, tremulous and easily fatigued with activity, and presents with weakness and decr balance limiting independence with ADLs/mobiltiy. Recommend IP rehab upon d/c. - Row Name 09/02/25 0849 Therapy Plan Review/Discharge Plan (OT) Anticipated Discharge Disposition (OT) inpatient rehabilitation facility - Row Name 09/02/25 0849 Vital Signs Pre Systolic BP Rehab 184 -AC Pre Treatment Diastolic BP 96 -AC Intra Systolic BP Rehab 144 -AC Intra Treatment Diastolic BP 67 -AC Post Systolic BP Rehab 155 -AC Post Treatment Diastolic BP 81 -AC Pretreatment Heart Rate (beats/min) 93 -AC Posttreatment Heart Rate (beats/min) 107 -AC Pre SpO2 (%) 93 -AC O2 Delivery Pre Treatment room air -AC O2 Delivery Intra Treatment room air -AC Post SpO2 (%) 90 -AC O2 Delivery Post Treatment room air -AC Pre Patient Position Supine -AC Intra Patient Position Sitting -AC Post Patient Position Sitting -AC Row Name 09/02/25 0849 Positioning and Restraints Pre-Treatment Position in bed -AC Post Treatment Position chair -AC In Chair notified nsg;reclined;call light within reach;encouraged to call for assist;exit alarm on;waffle cushion - User Jung (r) = Recorded By, (t) = Taken By, (c) = Cosigned By Initials Name Provider Type Patsy Molina, OT Occupational Therapist Outcome Measures Row Name 09/02/25 0854 How much help from another is currently needed... Putting on and taking off regular lower body clothing? 1 -AC Bathing (including washing, rinsing, and drying) 2 -AC Toileting (which includes using toilet bed currie or urinal) 2 -AC Putting on and taking off regular upper body clothing 2 -AC Taking care of personal grooming (such as brushing teeth) 3 -AC Eating meals 3 -AC AM-PAC 6 Clicks Score (OT) 13 -AC Row Name 09/02/25 0854 Functional Assessment Outcome Measure Options AM-PAC 6 Clicks Daily Activity (OT) - User Jung (r) = Recorded By, (t) = Taken By, (c) = Cosigned By Initials Name Provider Type Patsy Abernathy, OT Occupational Therapist Occupational Therapy Education Title: PT OT PSYCH TECH Therapies (In Progress) Topic: Occupational Therapy (In Progress) Point: ADL training (In Progress) Learning Progress Summary Patient Acceptance, E, NR by at 09/02/2025 0855 Acceptance, E, VU by at 08/31/2025 1348 Acceptance, E, NR by at 08/30/2025 1147 Point: Home exercise program (Done) Learning Progress Summary Patient Acceptance, E, VU by at 08/31/2025 1348 Point: Precautions (Done) Learning Progress Summary Patient Acceptance, E, VU by at 08/31/2025 1348 Acceptance, E, NR by at 08/30/2025 1147 Point: Body mechanics (Done) Learning Progress Summary Patient Acceptance, E, VU by at 08/31/2025 1348 Acceptance, E, NR by at 08/30/2025 1147 User Jung Initials Effective Dates Name Provider Type [facility] 11/22/22 - Patsy Abernathy, OT Occupational Therapist OT 08/02/22 - Aury Fitzgerald OT Occupational Therapist OT 07/10/21 - Radha Smith OT Occupational Therapist OT OT Recommendation and Plan Recommended discharge disposition is based on the functional assessment performed by PT/OT/Speech therapy (as applicable) and may not reflect the medical necessity determined by your provider or services covered by an individual patient's insurance plan or patient resource. Plan of Care Review Plan of Care Reviewed With: patient Progress: improving Outcome Evaluation: Pt progressed from mod A to min A with transfers using RW, SBA sitting sinksideto complete grooming, dep LBD. Pt with increased anxiety, tremulous and easily fatigued with activity, and presents with weakness and decr balance limiting independence with ADLs/mobiltiy. Recommend IP rehab upon d/c. Time Calculation: Time Calculation- OT Row Name 09/02/25 0740 Time Calculation- OT OT Start Time 0740 -AC OT Received On 09/02/25 -AC OT Goal Re-Cert Due Date 09/09/25 -AC Timed Charges 41357 - OT Therapeutic Activity Minutes 15 -AC 09221 - OT Self Care/Mgmt Minutes 40 -AC Total Minutes Timed Charges Total Minutes 55 -AC Total Minutes 55 -AC User Jung (r) = Recorded By, (t) = Taken By, (c) = Cosigned By Initials Name Provider Type AC Patsy Abernathy OT Occupational Therapist Therapy Charges for Today Code Description Service Date Service Provider Modifiers Qty 25468764634 HC OT THERAPEUTIC ACT EA 15 MIN 09/02/2025 Patsy Abernathy OT GO 1 58973810302 HC OT SELF CARE/MGMT/TRAIN EA 15 MIN 09/02/2025 Patsy Abernathy OT GO 3 Patys Abernathy OT 09/02/2025 * Therapy Treatment Note - Nora Montano, MS CF-PSYCH TECH - 09/01/2025 4:11 PM EST Images from the original note were not included. Acute Care - Speech Language Pathology Swallow Treatment Note Basil Patient Name: Loc Thurman : 1940 Today's Date: 09/01/2025 Admit Date: 08/27/2025 Visit Dx: ICD-10-CM ICD-9-CM 1. Acute pancreatitis, unspecified complication status, unspecified pancreatitis type K85.90 577.0 2. Cholecystitis K81.9 575.10 3. 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 Respiratory insufficiency Shock Past Medical History: Diagnosis Date Cancer COPD (chronic obstructive pulmonary disease) Hyperlipidemia Hypertension Past Surgical History: Procedure Laterality Date APPENDECTOMY CHOLECYSTECTOMY WITH INTRAOPERATIVE CHOLANGIOGRAM N/A 08/28/2025 Procedure: CHOLECYSTECTOMY LAPAROSCOPIC INTRAOPERATIVE CHOLANGIOGRAM; Surgeon: Hermes Jaramillo MD; Location: [facility]; Service: General; Laterality: N/A; COLONOSCOPY HERNIA REPAIR PSYCH TECH Recommendation and Plan Recommended discharge disposition is based on the functional assessment performed by PT/OT/Speech therapy (as applicable) and may not reflect the medical necessity determined by your provider or services covered by an individual patient's insurance plan or patient resource. PSYCH TECH Diet Recommendation: mechanical ground textures, nectar thick liquids, ice chips between meals after oral care, with supervision (09/01/251529) Recommended Precautions and Strategies: upright posture during/after eating, general aspiration precautions (09/01/251529) PSYCH TECH Rec. for Method of Medication Administration: meds whole, with thick liquids (09/01/251529) Monitor for Signs of Aspiration: yes, notify PSYCH TECH if any concerns (09/01/251529) Recommended Diagnostics: reassess via FEES (09/01/251529) Anticipated Discharge Disposition (PSYCH TECH): inpatient rehabilitation facility (09/01/251529) Therapy Frequency (Swallow): 5 days per week (09/01/251529) Predicted Duration Therapy Intervention (Days): 2 weeks (09/01/251529) Oral Care Recommendations: Oral Care BID/PRN, Suction toothbrush (09/01/251529) Daily Summary of Progress (PSYCH TECH): progress toward functional goals is good (09/01/251529) Treatment Assessment (PSYCH TECH): toleration of diet, clinical signs of, aspiration (09/01/251529) Treatment Assessment Comments (PSYCH TECH): Pt requesting thin liquids. Explained justification of thickened liquids (09/01/251529) Plan for Continued Treatment (PSYCH TECH): continue treatment per plan of care (09/01/251529) SWALLOW EVALUATION (Last 72 Hours) PSYCH TECH Adult Swallow Evaluation Row Name 09/01/25152908/31/25 0815 08/30/25 1005 Rehab Evaluation Document Type therapy note (daily note) -SM re-evaluation -RS evaluation -AC (r) IG (t) AC (c) Subjective Information no complaints -SM no complaints -RS no complaints -AC (r) IG (t) AC (c) Patient Observations alert;cooperative -SM alert;cooperative;agree to therapy - RS alert;cooperative-AC (r) IG (t) AC (c) Patient/Family/Caregiver Comments/Observations -- None present -RS Son arrived during eval -AC (r) IG (t) AC (c) Patient Effort good -SM good -RS good -AC (r) IG (t) AC (c) Symptoms Noted During/After Treatment none -SM none -RS none -AC (r) IG (t) AC (c) Oral Care patient refused intervention -SM teeth brushed - suction toothbrush - RS teeth brushed - suction toothbrush;tongue brushed -AC (r) IG (t) AC (c) General Information Patient Profile Reviewed yes -SM yes -RS yes -AC (r) IG (t) AC (c) Pertinent History Of Current Problem See previous PSYCH TECH notes -SM See previous PSYCH TECH notes. Pt has beencleared for PO diet by surgeon -RS Pt adm w/ new left lung mass who was transferred from [facility] 08/27/2025 for evaluation of possible pancreatitis and cholecystitis. CXR showed increased infiltrate or atelectasis at the right lung base.Hx: PMH COPD, pancreatitis, hypertension, prostate cancer s/p XRT and hormonal therapy 2014, and hyperlipidemia. -AC (r) IG (t) AC (c) Current Method of Nutrition pureed;nectar/syrup-thick liquids -SM NPO;large-bore -RS NPO;large-boreRN reported started trophic feeding today -AC (r) IG (t) AC (c) Precautions/Limitations, Vision -- -- WFL;for purposes of eval -AC (r) IG (t) AC (c) Precautions/Limitations, Hearing -- -- WFL;for purposes of eval -AC (r) IG (t) AC (c) Prior Level of Function-Communication -- -- unknown -AC (r) IG (t) AC (c) Prior Level of Function-Swallowing -- -- no diet consistency restrictions -AC (r) IG (t) AC (c) Plans/Goals Discussed with -- -- patient;agreed upon -AC (r) IG (t) AC (c) Barriers to Rehab -- -- none identified -AC (r) IG (t) AC (c) Patient's Goals for Discharge -- -- patient did not state -AC (r) IG (t) AC (c) Pain Pretreatment Pain Rating 0/10 - no pain -SM 0/10 - no pain -RS -- Posttreatment Pain Rating 0/10 - no pain -SM 0/10 - no pain -RS -- Additional Documentation -- -- Pain Scale: FACES Pre/Post-Treatment (Group) -AC (r) IG (t) AC (c) Pain Scale: FACES Pre/Post-Treatment Pain: FACES Scale, Pretreatment -- -- 2-->hurts little bit -AC (r) IG (t) AC (c) Posttreatment Pain Rating -- -- 0-->no hurt -AC (r) IG (t) AC (c) Oral Motor Structure and Function Dentition Assessment -- upper dentures/partial in place;lower dentures/partial in place - edentulous -AC (r) IG (t) AC (c) Secretion Management -- WNL/WFL -RS dried secretions in oral cavity -AC (r) IG (t) AC (c) Mucosal Quality -- dry;sticky -RS dry;sticky -AC (r) IG (t) AC (c) Oral Musculature and Cranial Nerve Assessment Oral Motor General Assessment -- -- WFL -AC (r) IG (t) AC (c) General Eating/Swallowing Observations Respiratory Support Currently in Use room air - nasal cannula -RS nasal cannula -AC (r) IG (t) AC(c) O2 Liters -- 3L -RS -- Eating/Swallowing Skills self-fed;fed by PSYCH TECH;needed assist - fed by staff/caregiver - self-fed;fed by PSYCH TECH -AC (r) IG (t) AC (c) Positioning During Eating upright 90 degree;upright in chair - upright 90 degree;upright in bed - upright 90 degree;upright in chair -AC (r) IG (t) AC (c) Utensils Used straw - spoon;cup;straw - spoon;cup -AC (r) IG (t) AC (c) Consistencies Trialed regular textures;thin liquids;nectar/syrup-thick liquids;ice chips - soft to chew textures;mechanical ground textures;mixed consistency;pureed;thin liquids;nectar/syrup-thick liquids - pureed;ice chips;thin liquids;nectar/syrup-thick liquids -AC (r) IG (t) AC (c) Clinical Swallow Eval Oral Prep Phase -- -- WFL -AC (r) IG (t) AC (c) Oral Transit -- -- WFL -AC (r) IG (t) AC (c) Oral Residue -- -- WFL -AC (r) IG (t) AC (c) Pharyngeal Phase -- -- suspected pharyngeal impairment -AC (r) IG (t) AC (c) Esophageal Phase -- -- unremarkable -AC (r) IG (t) AC (c) Pharyngeal Phase Concerns Pharyngeal Phase Concerns -- -- multiple swallows;cough -AC (r) IG (t) AC (c) Multiple Swallows -- -- thin;nectar -AC (r) IG (t) AC (c) Cough -- -- nectar;other (see comments) Suspect possible delayed cough from thin liquid -AC (r) IG (t) AC (c) Pharyngeal Phase Concerns, Comment -- -- PO trials okay'd by RN and - AC (r) IG (t) AC (c) Fiberoptic Endoscopic Evaluation of Swallowing (FEES) Risks/Benefits Reviewed -- risks/benefits explained;patient;agreed to eval -RS -- Nasal Entry -- left: -RS -- Scope serial number/identification -- 338 -RS -- Special Considerations -- large bore NGT in place, not yet appropriate to remove -RS -- Anatomy and Physiology Anatomic Considerations -- edema;erythema -RS -- Base of Tongue -- symmetrical -RS -- Epiglottis -- WFL -RS -- Laryngeal Function Breathing -- symmetrical -RS -- Laryngeal Function Phonation -- symmetrical -RS -- Laryngeal Function to Breath Hold -- can't sustain closure -RS -- Secretion Rating Scale (Steven et al. 1996) -- 2- secretions initially outside the vestibule but later entered the vestibule -RS -- Secretion Description -- thick;white -RS -- Ice Chips -- elicited swallow -RS -- Spontaneous Swallow -- frequency reduced -RS -- Sensory -- sensed scope -RS -- FEES Interpretation Oral Phase -- reduced lingual control;prespill of liquids into pharynx;prolonged manipulation;with solids only -RS -- Initiation of Pharyngeal Swallow Initiation of Pharyngeal Swallow -- bolus in valleculae -RS -- Pharyngeal Phase -- impaired pharyngeal phase of swallowing -RS -- Aspiration During the Swallow -- thin liquids;secondary to delayed swallow initiation or mistiming;secondary to reduced laryngeal elevation;secondary to reduced vestibular closure -RS -- Response to Aspiration -- No -RS -- No spontaneous response to aspiration with -- effective subglottic clearance with cue (see comments) -RS -- Rosenbek's Scale -- thin:;8-->Level 8;nectar:;1-->Level 1 -RS -- Residue -- diffuse within pharynx;secondary to reduced base of tongue retraction;secondary to reduced posterior pharyngeal wall stripping;secondary to reduced laryngeal elevation;secondary to reducedhyolaryngeal excursion;other (see comments) mild but diffuse -RS -- Response to Residue -- cleared residue;with spontaneous subsequent swallow;with cued swallow -RS -- Attempted Compensatory Maneuvers -- bolus size;bolus presentation style -RS -- Response to Attempted Compensatory Maneuvers -- did not prevent aspiration -RS -- FEES Summary -- PO diet to be ordered at discretion of surgeon. May want to initiate clear (nectar)liquids and advance. Unsure why oral phase so prolonged given lack of isolated lingual/labial weakness (with the exception of tongue back). Given prolonged oral phase, recommend puree solids which can be upgraded at bedside. Would anticipate quick pharyngeal recovery. -RS -- Swallowing Quality of Life Assessment Education and counseling provided -- Signs of aspiration;Silent aspiration;Risks of aspiration -RS -- PSYCH TECH Evaluation Clinical Impression PSYCH TECH Swallowing Diagnosis -- moderate;oral dysphagia;pharyngeal dysphagia -RS suspected pharyngeal dysphagia -AC (r) IG (t) AC (c) Functional Impact -- risk of aspiration/pneumonia -RS risk of aspiration/pneumonia;risk of malnutrition;risk of dehydration -AC (r) IG (t) AC (c) Rehab Potential/Prognosis, Swallowing -- good, to achieve stated therapy goals - RS good, to achievestated therapy goals -AC (r) IG (t) AC (c) Swallow Criteria for Skilled Therapeutic Interventions Met -- demonstrates skilled criteria -RS demonstrates skilled criteria -AC (r) IG (t) AC (c) PSYCH TECH Treatment Clinical Impressions Treatment Assessment (PSYCH TECH) toleration of diet;clinical signs of;aspiration -SM -- -- Treatment Assessment Comments (PSYCH TECH) Pt requesting thin liquids. Explained justification of thickened liquids - -- -- Daily Summary of Progress (PSYCH TECH) progress toward functional goals is good - -- -- Plan for Continued Treatment (PSYCH TECH) continue treatment per plan of care - -- -- Care Plan Review evaluation/treatment results reviewed;patient/other agree to care plan - -- -- Recommendations Therapy Frequency (Swallow) 5 days per week - 5 days per week -RS -- Predicted Duration Therapy Intervention (Days) 2 weeks - 2 weeks -RS 2 weeks - AC (r) IG (t) AC (c) PSYCH TECH Diet Recommendation mechanical ground textures;nectar thick liquids;ice chips between meals after oral care, with supervision - puree;nectar thick liquids;other (see comments) PO diet at discretion of surgeon only - NPO -AC (r) IG (t) AC (c) Recommended Diagnostics reassess via FEES - -- FEES;other (see comments) When medically appropriate/ cleared by surgery. -AC (r) IG (t) AC (c) Recommended Precautions and Strategies upright posture during/after eating;general aspiration precautions - upright posture during/after eating;general aspiration precautions - -- Oral Care Recommendations Oral Care BID/PRN;Suction toothbrush - Oral Care BID/PRN;Suction toothbrush -RS Oral Care BID/PRN;Suction toothbrush - (r) IG (t) AC (c) PSYCH TECH Rec. for Method of Medication Administration meds whole;with thick liquids - meds whole;with thick liquids;meds via alternate route - meds via alternate route -AC (r) IG (t) AC (c) Monitor for Signs of Aspiration yes;notify PSYCH TECH if any concerns - yes;notify PSYCH TECH if any concerns - yes;notify PSYCH TECH if any concerns -AC (r) IG (t) AC (c) Anticipated Discharge Disposition (PSYCH TECH) inpatient rehabilitation facility - inpatient rehabilitation facility -RS inpatient rehabilitation facility -AC (r) IG (t) AC (c) User Jung (r) = Recorded By, (t) = Taken By, (c) = Cosigned By Initials Name Effective Dates AC Lea Echols MS [facility]-PSYCH TECH 11/22/22 - RS Andrea Dukes MS [facility]-PSYCH TECH 07/03/23 - Nora Weiner MS CF-PSYCH TECH 03/24/25 - Alma Arshad, Speech Therapy Student 06/08/25 - EDUCATION The patient has been educated in the following areas: Dysphagia (Swallowing Impairment) Oral Care/Hydration Modified Diet Instruction. PSYCH TECH GOALS Row Name 09/01/25 1530 08/31/25 0815 (LTG) Patient will demonstrate functional swallow for Diet Texture (Demonstrate functional swallow) regular textures -SM regular textures -RS Liquid viscosity (Demonstrate functional swallow) thin liquids -SM thin liquids -RS Reynolds (Demonstrate functional swallow) independently (over 90% accuracy) -SM independently (over 90% accuracy) -RS Time Frame (Demonstrate functional swallow) 2 weeks -SM 2 weeks -RS Progress/Outcomes (Demonstrate functional swallow) continuing progress toward goal -SM new goal -RS (STG) Patient will tolerate trials of Consistencies Trialed (Tolerate trials) mechanical ground textures;nectar/ mildly thick liquids -SMpureed textures;nectar/ mildly thick liquids -RS Desired Outcome (Tolerate trials) without signs/symptoms of aspiration;without signs of distress;with adequate oral prep/transit/clearance -SM without signs/symptoms of aspiration;without signs of distress;with adequate oral prep/transit/clearance -RS Reynolds (Tolerate trials) with minimal cues (75-90% accuracy) -SM with minimal cues (75-90% accuracy) -RS Time Frame (Tolerate trials) 1 week -SM 1 week -RS Progress/Outcomes (Tolerate trials) goal revised this date - new goal -RS Comment (Tolerate trials) Upgraded to [facility] grnd solids -SM -- (STG) Patient will tolerate therapeutic trials of Consistencies Trialed (Tolerate therapeutic trials) soft to chew (chopped) textures;nectar/ mildly thick liquids -SM soft to chew (chopped) textures;nectar/ mildly thick liquids -RS Desired Outcome (Tolerate therapeutic trials) without signs/symptoms of aspiration;without signs ofdistress;with adequate oral prep/transit/clearance - SM without signs/symptoms of aspiration;withoutsigns of distress;with adequate oral prep/transit/clearance -RS Reynolds (Tolerate therapeutic trials) with minimal cues (75-90% accuracy) - SM with minimal cues (75-90% accuracy) -RS Time Frame (Tolerate therapeutic trials) 1 week -SM 1 week -RS Progress/Outcomes (Tolerate therapeutic trials) continuing progress toward goal -SM new goal -RS Comment (Tolerate therapeutic trials) Per RN, pt requesting thin liquids all day. Assessed ice and sips of thin water at bedside, pt consistently demonstrating TC. No s/sxs w/ nectar or solid trials.Oral concerns w/ solid, but [facility] and [facility] tolerance -SM -- (STG) Lingual Strengthening Goal 1 (PSYCH TECH) Activity (Lingual Strengthening Goal 1, PSYCH TECH) increase tongue back strength -SM increase tongue backstrength -RS Increase Tongue Back Strength lingual resistance exercises -SM lingual resistance exercises -RS Reynolds/Accuracy (Lingual Strengthening Goal 1, PSYCH TECH) with minimal cues (75- 90% accuracy) -SM with minimal cues (75-90% accuracy) -RS Time Frame (Lingual Strengthening Goal 1, PSYCH TECH) 1 week -SM 1 week -RS Progress/Outcomes (Lingual Strengthening Goal 1, PSYCH TECH) continuing progress toward goal -SM new goal -RS (STG) Pharyngeal Strengthening Exercise Goal 1 (PSYCH TECH) Activity (Pharyngeal Strengthening Goal 1, PSYCH TECH) increase timing;increase superior movement of the hyolaryngeal complex;increase anterior movement of the hyolaryngeal complex;increase closure at entrance to airway/closure of airway at glottis;increase squeeze/positive pressure generation;increase tongue base retraction -SM increase timing;increase superior movement of the hyolaryngeal complex;increase anterior movement of the hyolaryngeal complex;increase closure at entrance to airway/closure ofairway at glottis;increase squeeze/positive pressure generation;increase tongue base retraction -RS Increase Timing prepping - 3 second prep or suck swallow or 3-step swallow -SM prepping - 3 second prep or suck swallow or 3-step swallow -RS Increase Superior Movement of the Hyolaryngeal Complex Patience -SM Patience -RS Increase Anterior Movement of the Hyolaryngeal Complex chin tuck against resistance (CTAR) -SM chintuck against resistance (CTAR) -RS Increase Closure at Entrance to Airway/Closure of Airway at Glottis supraglottic swallow -SM supraglottic swallow -RS Increase Squeeze/Positive Pressure Generation hard effortful swallow -SM hard effortful swallow -RS Increase Tongue Base Retraction mike -SM mike -RS Reynolds/Accuracy (Pharyngeal Strengthening Goal 1, PSYCH TECH) with minimal cues (75-90% accuracy) -SM with minimal cues (75-90% accuracy) -RS Time Frame (Pharyngeal Strengthening Goal 1, PSYCH TECH) 1 week -SM 1 week -RS Progress/Outcomes (Pharyngeal Strengthening Goal 1, PSYCH TECH) continuing progress toward goal -SM new goal -RS Comment (Pharyngeal Strengthening Goal 1, PSYCH TECH) Demo'd all and left at bedside - SM -- User Jung (r) = Recorded By, (t) = Taken By, (c) = Cosigned By Initials Name Provider Type Andrea Mitchell MS CCC-PSYCH TECH Speech and Language Pathologist Nora Weiner MS CF-PSYCH TECH Speech and Language Pathologist Time Calculation: Time Calculation- PSYCH TECH Row Name 09/01/25 1611 Time Calculation- PSYCH TECH PSYCH TECH Start Time 1530 -SM PSYCH TECH Received On 09/01/25 - Untimed Charges [id number] Treatment Swallow Minutes 38 -SM Total Minutes Untimed Charges Total Minutes 38 -SM Total Minutes 38 -SM User Jung (r) = Recorded By, (t) = Taken By, (c) = Cosigned By Initials Name Provider Type Nora Weiner MS CF-PSYCH TECH Speech and Language Pathologist Therapy Charges for Today Code Description Service Date Service Provider Modifiers Qty [id number] HC ST TREATMENT SWALLOW 3 09/01/2025 Nora Montano MS CF- PSYCH TECH GN 1 MS BECKY Jarvis-PSYCH TECH 09/01/2025 * Case Management/Social Work - Daryl Schwab RN - 09/01/2025 2:20 PM EST Continued Stay Note Basil Patient Name: Loc Thurman Today's Date: 09/01/2025 Admit Date: 08/27/2025 Plan: rehab Discharge Plan Row Name 09/01/25 1416 Plan Plan rehab Patient/Family in Agreement with Plan yes Plan Comments I had a call from Ella [employer] [facility] in [place], interested in Mr. Thurman for rehab. Her contact is [phone]. She is going to reach out to son via phone. I updated son and as I was updating, she called Mr. Thurman son. I will update Ella tomorrow, will have PT/OT see tomorrow as well and discuss in MDR on tentative d/c date? CM will continue to follow. DC plan is rehab, will transp ort or if son wants to transport, he can as well, will f/u tomorrow. Final Discharge Disposition Code 62 - inpatient rehab facility Row Name 09/01/25 1238 Plan Plan rehab Patient/Family in Agreement with Plan yes Plan Comments Discussed in MDR, transferred from ICU to floor 11/12 pm, per MDR, voiding trials, NGdiscontinued, puree nectar diet. I met w/Mr. Thurman, his son, and niece in room to discuss d/c planning. I explained that a referral was faxed to [facility], which son stated was very close to his home. I printed a patient choice list for them to review w/acute/Skilled facilities, after discussion, son w/patient's permissions requested a referral to be sent to [facility] in [place], [place]. I calledand spoke w/Alejandra and faxed a referral to [phone]. CM will continue to follow and assist w/dc planning. Final Discharge Disposition Code 62 - inpatient rehab facility Discharge Codes No documentation. Daryl Schwab RN * Case Management/Social Work - Daryl Schwab RN - 09/01/2025 12:42 PM EST Continued Stay Note [facility] Patient Name: Loc Thurman Today's Date: 09/01/2025 Admit Date: 08/27/2025 Plan: rehab Discharge Plan Row Name 09/01/25 1238 Plan Plan rehab Patient/Family in Agreement with Plan yes Plan Comments Discussed in MDR, transferred from ICU to floor 11/12 pm, per MDR, voiding trials, NGdiscontinued, puree nectar diet. I met w/Mr. Thurman, his son, and niece in room to discuss d/c planning. I explained that a referral was faxed to [facility], which son stated was very close to his home. I printed a patient choice list for them to review w/acute/Skilled facilities, after discussion, son w/patient's permissions requested a referral to be sent to [facility] in [place], [place]. I calledand spoke w/Alejandra and faxed a referral to [phone]. CM will continue to follow and assist w/dc planning. Final Discharge Disposition Code 62 - inpatient rehab facility Discharge Codes No documentation. Daryl Schwab RN * Therapy Treatment Note - Radha Smith OT - 08/31/2025 1:07 PM EST Patient Name: Loc Thurman : 1940 Today's Date: 08/31/2025 Admit Date: 08/27/2025 Visit Dx: ICD-10-CM ICD-9-CM 1. Acute pancreatitis, unspecified complication status, unspecified pancreatitis type K85.90 577.0 2. Cholecystitis K81.9 575.10 3. 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 Respiratory insufficiency Shock Past Medical History: Diagnosis Date Cancer COPD (chronic obstructive pulmonary disease) Hyperlipidemia Hypertension Past Surgical History: Procedure Laterality Date APPENDECTOMY CHOLECYSTECTOMY WITH INTRAOPERATIVE CHOLANGIOGRAM N/A 08/28/2025 Procedure: CHOLECYSTECTOMY LAPAROSCOPIC INTRAOPERATIVE CHOLANGIOGRAM; Surgeon: Hermes Jaramillo MD; Location: [facility]; Service: General; Laterality: N/A; COLONOSCOPY HERNIA REPAIR General Information Row Name 08/31/25 0332 OT Time and Intention Document Type therapy note (daily note) -AN Mode of Treatment occupational therapy -AN Row Name 08/31/25 2111 General Information Patient Profile Reviewed yes -AN Existing Precautions/Restrictions fall;oxygen therapy device and L/min;other (see comments) abdominal incision; confusion; NG -AN Barriers to Rehab medically complex;previous functional deficit;cognitive status -AN Row Name 08/31/25 7942 Cognition Orientation Status (Cognition) oriented x 3 -AN Row Name 08/31/25 1338 Safety Issues/Impairments Affecting Functional Mobility Safety Issues Affecting Function (Mobility) safety precaution awareness;safety precautions follow-through/compliance;awareness of need for assistance -AN Impairments Affecting Function (Mobility) balance;cognition;coordination;endurance/activity tolerance;pain;postural/trunk control;shortness of breath;strength -AN Cognitive Impairments, Mobility Safety/Performance awareness, need for assistance;safety precautionfollow-through;sequencing abilities;insight into deficits/self-awareness;judgment;problem-solving/reasoning;safety precaution awareness -AN User Jung (r) = Recorded By, (t) = Taken By, (c) = Cosigned By Initials Name Provider Type Radha Liao OT Occupational Therapist Mobility/ADL's Row Name 08/31/25 1339 Bed Mobility Comment, (Bed Mobility) UIC upon arrival -AN User Jung (r) = Recorded By, (t) = Taken By, (c) = Cosigned By Initials Name Provider Type Radha Liao OT Occupational Therapist Obj/Interventions Row Name 08/31/25 1340 Shoulder (Therapeutic Exercise) Shoulder (Therapeutic Exercise) AAROM (active assistive range of motion);AROM (active range of motion) -AN Shoulder AROM (Therapeutic Exercise) bilateral;scapular retraction;aBduction;aDduction;sitting;10 repetitions -AN Shoulder AAROM (Therapeutic Exercise) bilateral;flexion;extension;sitting;10 repetitions -AN Row Name 08/31/25 1340 Elbow/Forearm (Therapeutic Exercise) Elbow/Forearm (Therapeutic Exercise) AAROM (active assistive range of motion) -AN Elbow/Forearm AAROM (Therapeutic Exercise) bilateral;flexion;extension;sitting;10 repetitions -AN Row Name 08/31/25 1340 Motor Skills Therapeutic Exercise shoulder;elbow/forearm -AN Row Name 08/31/25 1340 Balance Balance Assessment sitting static balance;sitting dynamic balance -AN Static Sitting Balance contact guard -AN Dynamic Sitting Balance minimal assist -AN Position, Sitting Balance sitting in chair -AN Balance Interventions sitting;static;dynamic;minimal challenge;occupation based/functional task -AN User Jung (r) = Recorded By, (t) = Taken By, (c) = Cosigned By Initials Name Provider Type Radha Liao OT Occupational Therapist Goals/Plan No documentation. Clinical Impression Row Name 08/31/25 1341 Pain Assessment Pretreatment Pain Rating 0/10 - no pain -AN Posttreatment Pain Rating 0/10 - no pain -AN Row Name 08/31/25 1341 Plan of Care Review Plan of Care Reviewed With patient;son -AN Progress improving -AN Outcome Evaluation Pt continues to progress towards all OT goals, limited by weakness, confusion, and decreased activity tolerance. Pt tolerated seated UE ther-ex this session with AAROM/AROM. Cont POC. -AN Row Name 08/31/25 1341 Therapy Plan Review/Discharge Plan (OT) Anticipated Discharge Disposition (OT) inpatient rehabilitation facility -AN Row Name 08/31/25 1341 Positioning and Restraints Pre-Treatment Position sitting in chair/recliner -AN Post Treatment Position chair -AN In Chair notified nsg;reclined;call light within reach;encouraged to call for assist;exit alarm on;waffle cushion;with family/caregiver;on mechanical lift sling;legs elevated -AN User Jung (r) = Recorded By, (t) = Taken By, (c) = Cosigned By Initials Name Provider Type Radha Liao, ARY Occupational Therapist Outcome Measures Row Name 08/31/25 1348 How much help from another is currently needed... Putting on and taking off regular lower body clothing? 1 -AN Bathing (including washing, rinsing, and drying) 2 -AN Toileting (which includes using toilet bed currie or urinal) 1 -AN Putting on and taking off regular upper body clothing 2 -AN Taking care of personal grooming (such as brushing teeth) 3 -AN Eating meals 3 -AN AM-PAC 6 Clicks Score (OT) 12 -AN Row Name 08/31/25 1035 How much help from another person do you currently need... Turning from your back to your side while in flat bed without using bedrails? 2 -KG (r) SULAIMAN (t) KG (c) Moving from lying on back to sitting on the side of a flat bed without bedrails? 2 -KG (r) SULAIMAN (t) KG (c) Moving to and from a bed to a chair (including a wheelchair)? 2 -KG (r) SULAIMAN (t) KG (c) Standing up from a chair using your arms (e.g., wheelchair, bedside chair)? 2 - KG (r) SULAIMAN (t) KG (c) Climbing 3-5 steps with a railing? 1 -KG (r) SULAIMAN (t) KG (c) To walk in hospital room? 2 -KG (r) SULAIMAN (t) KG (c) AM-PAC 6 Clicks Score (PT) 11 -KG (r) SULAIMAN (t) Highest Level of Mobility Goal Move to Chair/Commode-4 -KG (r) SULIAMAN (t) Row Name 08/31/25 1348 08/31/25 1035 Functional Assessment Outcome Measure Options AM-PAC 6 Clicks Daily Activity (OT) -AN AM-PAC 6 Clicks Basic Mobility (PT)-KG (r) SULAIMAN (t) KG (c) User Jung (r) = Recorded By, (t) = Taken By, (c) = Cosigned By Initials Name Provider Type Flora Galvan, PT Physical Therapist Radha Liao, OT Occupational Therapist Tee Taylor, PT Student PT Student Occupational Therapy Education Title: PT OT PSYCH TECH Therapies (In Progress) Topic: Occupational Therapy (Done) Point: ADL training (Done) Learning Progress Summary Patient Acceptance, E, VU by at 08/31/2025 1348 Acceptance, E, NR by at 08/30/2025 1147 Point: Home exercise program (Done) Learning Progress Summary Patient Acceptance, E, VU by at 08/31/2025 1348 Point: Precautions (Done) Learning Progress Summary Patient Acceptance, E, VU by at 08/31/2025 1348 Acceptance, E, NR by at 08/30/2025 1147 Point: Body mechanics (Done) Learning Progress Summary Patient Acceptance, E, VU by at 08/31/2025 1348 Acceptance, E, NR by at 08/30/2025 1147 User Jung Initials Effective Dates Name Provider Type [facility] 08/02/22 - Aury Fitzgerald OT Occupational Therapist OT JUAQUIN 07/10/21 - Radha Smith OT Occupational Therapist OT OT Recommendation and Plan Recommended discharge disposition is based on the functional assessment performed by PT/OT/Speech therapy (as applicable) and may not reflect the medical necessity determined by your provider or services covered by an individual patient's insurance plan or patient resource. Plan of Care Review Plan of Care Reviewed With: patient, son Progress: improving Outcome Evaluation: Pt continues to progress towards all OT goals, limited by weakness, confusion, and decreased activity tolerance. Pt tolerated seated UE ther-ex this session with AAROM/AROM. Cont POC. Time Calculation: Time Calculation- OT Row Name 08/31/25 1349 Time Calculation- OT OT Start Time 1307 -AN OT Received On 08/31/25 -AN Timed Charges 08308 - OT Therapeutic Exercise Minutes 12 -AN Total Minutes Timed Charges Total Minutes 12 -AN Total Minutes 12 -AN User Jung (r) = Recorded By, (t) = Taken By, (c) = Cosigned By Initials Name Provider Type AN Radha Smith OT Occupational Therapist Therapy Charges for Today Code Description Service Date Service Provider Modifiers Qty [id number] HC OT THER PROC EA 15 MIN 08/31/2025 Radha Smith OT GO 1 Radha Smith OT 08/31/2025 * MBS/VFSS/FEES - Andrea Dukes MS CCC-PSYCH TECH - 08/31/2025 9:54 AM EST Images from the original note were not included. Acute Care - Speech Language Pathology Swallow Re-Evaluation [facility] Fiberoptic Endoscopic Evaluation of Swallowing (FEES) Patient Name: Loc Thurman : 1940 Today's Date: 08/31/2025 Admit Date: 08/27/2025 Visit Dx: ICD-10-CM ICD-9-CM 1. Acute pancreatitis, unspecified complication status, unspecified pancreatitis type K85.90 577.0 2. Cholecystitis K81.9 575.10 3. 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 Respiratory insufficiency Shock Past Medical History: Diagnosis Date Cancer COPD (chronic obstructive pulmonary disease) Hyperlipidemia Hypertension Past Surgical History: Procedure Laterality Date APPENDECTOMY CHOLECYSTECTOMY WITH INTRAOPERATIVE CHOLANGIOGRAM N/A 08/28/2025 Procedure: CHOLECYSTECTOMY LAPAROSCOPIC INTRAOPERATIVE CHOLANGIOGRAM; Surgeon: Hermes Jaramillo MD; Location: [facility]; Service: General; Laterality: N/A; COLONOSCOPY HERNIA REPAIR PSYCH TECH Recommendation and Plan Recommended discharge disposition is based on the functional assessment performed by PT/OT/Speech therapy (as applicable) and may not reflect the medical necessity determined by your provider or services covered by an individual patient's insurance plan or patient resource. PSYCH TECH Swallowing Diagnosis: moderate, oral dysphagia, pharyngeal dysphagia (08/31/25814) PSYCH TECH Diet Recommendation: puree, nectar thick liquids, other (see comments) (PO diet at discretion of surgeon only) (08/31/25814) Recommended Precautions and Strategies: upright posture during/after eating, general aspiration precautions (08/31/25814) PSYCH TECH Rec. for Method of Medication Administration: meds whole, with thick liquids, meds via alternate route (08/31/25814) Monitor for Signs of Aspiration: yes, notify PSYCH TECH if any concerns (08/31/25814) Swallow Criteria for Skilled Therapeutic Interventions Met: demonstrates skilled criteria () Anticipated Discharge Disposition (PSYCH TECH): inpatient rehabilitation facility (08/31/25814) Rehab Potential/Prognosis, Swallowing: good, to achieve stated therapy goals (08/31/25814) Therapy Frequency (Swallow): 5 days per week (08/31/25814) Predicted Duration Therapy Intervention (Days): 2 weeks (08/31/25814) Oral Care Recommendations: Oral Care BID/PRN, Suction toothbrush (08/31/25814) Progress: improving SWALLOW EVALUATION (Last 72 Hours) PSYCH TECH Adult Swallow Evaluation Row Name 08/31/2581408/30/25 1005 Rehab Evaluation Document Type re-evaluation -RS evaluation -AC (r) IG (t) AC (c) Subjective Information no complaints -RS no complaints -AC (r) IG (t) AC (c) Patient Observations alert;cooperative;agree to therapy -RS alert;cooperative - AC (r) IG (t) AC (c) Patient/Family/Caregiver Comments/Observations None present -RS Son arrived during eval -AC (r) IG (t) AC (c) Patient Effort good -RS good -AC (r) IG (t) AC (c) Symptoms Noted During/After Treatment none -RS none -AC (r) IG (t) AC (c) Oral Care teeth brushed - suction toothbrush -RS teeth brushed - suction toothbrush;tongue brushed -AC (r) IG (t) AC (c) General Information Patient Profile Reviewed yes -RS yes -AC (r) IG (t) AC (c) Pertinent History Of Current Problem See previous PSYCH TECH notes. Pt has been cleared for PO diet by surgeon -RS Pt adm w/ new left lung mass who was transferred from OSH 08/27/2025 for evaluation of possible pancreatitis and cholecystitis. CXR showed increased infiltrate or atelectasis at the right lungbase.Hx: PMH COPD, pancreatitis, hypertension, prostate cancer s/p XRT and hormonal therapy 2014, and hyperlipidemia. -AC (r) IG (t) AC (c) Current Method of Nutrition NPO;large-bore -RS NPO;large-bore RN reported started trophic feeding today -AC (r) IG (t) AC (c) Precautions/Limitations, Vision -- WFL;for purposes of eval -AC (r) IG (t) AC (c) Precautions/Limitations, Hearing -- WFL;for purposes of eval -AC (r) IG (t) AC (c) Prior Level of Function-Communication -- unknown -AC (r) IG (t) AC (c) Prior Level of Function-Swallowing -- no diet consistency restrictions -AC (r) IG (t) AC (c) Plans/Goals Discussed with -- patient;agreed upon -AC (r) IG (t) AC (c) Barriers to Rehab -- none identified -AC (r) IG (t) AC (c) Patient's Goals for Discharge -- patient did not state -AC (r) IG (t) AC (c) Pain Pretreatment Pain Rating 0/10 - no pain -RS -- Posttreatment Pain Rating 0/10 - no pain -RS -- Additional Documentation -- Pain Scale: FACES Pre/Post-Treatment (Group) -AC (r) IG (t) AC (c) Pain Scale: FACES Pre/Post-Treatment Pain: FACES Scale, Pretreatment -- 2-->hurts little bit -AC (r) IG (t) AC (c) Posttreatment Pain Rating -- 0-->no hurt -AC (r) IG (t) AC (c) Oral Motor Structure and Function Dentition Assessment upper dentures/partial in place;lower dentures/partial in place -RS edentulous-AC (r) IG (t) AC (c) Secretion Management WNL/WFL -RS dried secretions in oral cavity -AC (r) IG (t) AC (c) Mucosal Quality dry;sticky -RS dry;sticky -AC (r) IG (t) AC (c) Oral Musculature and Cranial Nerve Assessment Oral Motor General Assessment -- WFL -AC (r) IG (t) AC (c) General Eating/Swallowing Observations Respiratory Support Currently in Use nasal cannula -RS nasal cannula -AC (r) IG (t) AC (c) O2 Liters 3L -RS -- Eating/Swallowing Skills fed by staff/caregiver -RS self-fed;fed by PSYCH TECH -AC (r) IG (t) AC (c) Positioning During Eating upright 90 degree;upright in bed -RS upright 90 degree;upright in chair -AC (r) IG (t) AC (c) Utensils Used spoon;cup;straw -RS spoon;cup -AC (r) IG (t) AC (c) Consistencies Trialed soft to chew textures;mechanical ground textures;mixed consistency;pureed;thin liquids;nectar/syrup-thick liquids -RS pureed;ice chips;thin liquids;nectar/syrup-thick liquids -AC (r) IG (t) AC (c) Clinical Swallow Eval Oral Prep Phase -- WFL -AC (r) IG (t) AC (c) Oral Transit -- WFL -AC (r) IG (t) AC (c) Oral Residue -- WFL -AC (r) IG (t) AC (c) Pharyngeal Phase -- suspected pharyngeal impairment -AC (r) IG (t) AC (c) Esophageal Phase -- unremarkable -AC (r) IG (t) AC (c) Pharyngeal Phase Concerns Pharyngeal Phase Concerns -- multiple swallows;cough -AC (r) IG (t) AC (c) Multiple Swallows -- thin;nectar -AC (r) IG (t) AC (c) Cough -- nectar;other (see comments) Suspect possible delayed cough from thin liquid -AC (r) IG (t)AC (c) Pharyngeal Phase Concerns, Comment -- PO trials okay'd by RN and -AC (r) IG (t) AC (c) Fiberoptic Endoscopic Evaluation of Swallowing (FEES) Risks/Benefits Reviewed risks/benefits explained;patient;agreed to eval -RS -- Nasal Entry left: -RS -- Scope serial number/identification [id number] -RS -- Special Considerations large bore NGT in place, not yet appropriate to remove - RS -- Anatomy and Physiology Anatomic Considerations edema;erythema -RS -- Base of Tongue symmetrical -RS -- Epiglottis WFL -RS -- Laryngeal Function Breathing symmetrical -RS -- Laryngeal Function Phonation symmetrical -RS -- Laryngeal Function to Breath Hold can't sustain closure -RS -- Secretion Rating Scale (Steven et al. 1996) 2- secretions initially outside the vestibule but laterentered the vestibule -RS -- Secretion Description thick;white -RS -- Ice Chips elicited swallow -RS -- Spontaneous Swallow frequency reduced -RS -- Sensory sensed scope -RS -- FEES Interpretation Oral Phase reduced lingual control;prespill of liquids into pharynx;prolonged manipulation;with solids only -RS -- Initiation of Pharyngeal Swallow Initiation of Pharyngeal Swallow bolus in valleculae -RS -- Pharyngeal Phase impaired pharyngeal phase of swallowing -RS -- Aspiration During the Swallow thin liquids;secondary to delayed swallow initiation or mistiming;secondary to reduced laryngeal elevation;secondary to reduced vestibular closure -RS -- Response to Aspiration No -RS -- No spontaneous response to aspiration with effective subglottic clearance with cue (see comments) -RS -- Rosenbek's Scale thin:;8-->Level 8;nectar:;1-->Level 1 -RS -- Residue diffuse within pharynx;secondary to reduced base of tongue retraction;secondary to reduced posterior pharyngeal wall stripping;secondary to reduced laryngeal elevation;secondary to reduced hyolaryngeal excursion;other (see comments) mild but diffuse -RS -- Response to Residue cleared residue;with spontaneous subsequent swallow;with cued swallow -RS -- Attempted Compensatory Maneuvers bolus size;bolus presentation style -RS -- Response to Attempted Compensatory Maneuvers did not prevent aspiration -RS -- FEES Summary PO diet to be ordered at discretion of surgeon. May want to initiate clear (nectar) liquids and advance. Unsure why oral phase so prolonged given lack of isolated lingual/labial weakness(with the exception of tongue back). Given prolonged oral phase, recommend puree solids which can be upgraded at bedside. Would anticipate quick pharyngeal recovery. -RS -- Swallowing Quality of Life Assessment Education and counseling provided Signs of aspiration;Silent aspiration;Risks of aspiration -RS -- PSYCH TECH Evaluation Clinical Impression PSYCH TECH Swallowing Diagnosis moderate;oral dysphagia;pharyngeal dysphagia -RS suspected pharyngeal dysphagia -AC (r) IG (t) AC (c) Functional Impact risk of aspiration/pneumonia -RS risk of aspiration/pneumonia;risk of malnutrition;risk of dehydration -AC (r) IG (t) AC (c) Rehab Potential/Prognosis, Swallowing good, to achieve stated therapy goals -RS good, to achieve stated therapy goals -AC (r) IG (t) AC (c) Swallow Criteria for Skilled Therapeutic Interventions Met demonstrates skilled criteria -RS demonstrates skilled criteria -AC (r) IG (t) AC (c) Recommendations Therapy Frequency (Swallow) 5 days per week -RS -- Predicted Duration Therapy Intervention (Days) 2 weeks -RS 2 weeks -AC (r) IG (t) AC (c) PSYCH TECH Diet Recommendation puree;nectar thick liquids;other (see comments) PO diet at discretion of surgeon only -RS NPO -AC (r) IG (t) AC (c) Recommended Diagnostics -- FEES;other (see comments) When medically appropriate/ cleared by surgery. -AC (r) IG (t) AC (c) Recommended Precautions and Strategies upright posture during/after eating;general aspiration precautions -RS -- Oral Care Recommendations Oral Care BID/PRN;Suction toothbrush -RS Oral Care BID/PRN;Suction toothbrush -AC (r) IG (t) AC (c) PSYCH TECH Rec. for Method of Medication Administration meds whole;with thick liquids;meds via alternate route -RS meds via alternate route -AC (r) IG (t) AC (c) Monitor for Signs of Aspiration yes;notify PSYCH TECH if any concerns -RS yes;notify PSYCH TECH if any concerns -AC (r) IG (t) AC (c) Anticipated Discharge Disposition (PSYCH TECH) inpatient rehabilitation facility -RS inpatient rehabilitation facility -AC (r) IG (t) AC (c) User Jung (r) = Recorded By, (t) = Taken By, (c) = Cosigned By Initials Name Effective Dates AC Lea Echols Umer, MS [facility]-PSYCH TECH 11/22/22 - Andrea Mitchell, MS [facility]-PSYCH TECH 07/03/23 - Alma Arshad, Speech Therapy Student 06/08/25 - EDUCATION The patient has been educated in the following areas: Dysphagia (Swallowing Impairment) Modified Diet Instruction. PSYCH TECH GOALS Row Name 08/31/25 0815 (LTG) Patient will demonstrate functional swallow for Diet Texture (Demonstrate functional swallow) regular textures -RS Liquid viscosity (Demonstrate functional swallow) thin liquids -RS Reynolds (Demonstrate functional swallow) independently (over 90% accuracy) -RS Time Frame (Demonstrate functional swallow) 2 weeks -RS Progress/Outcomes (Demonstrate functional swallow) new goal -RS (STG) Patient will tolerate trials of Consistencies Trialed (Tolerate trials) pureed textures;nectar/ mildly thick liquids -RS Desired Outcome (Tolerate trials) without signs/symptoms of aspiration;without signs of distress;with adequate oral prep/transit/clearance -RS Reynolds (Tolerate trials) with minimal cues (75-90% accuracy) -RS Time Frame (Tolerate trials) 1 week -RS Progress/Outcomes (Tolerate trials) new goal -RS (STG) Patient will tolerate therapeutic trials of Consistencies Trialed (Tolerate therapeutic trials) soft to chew (chopped) textures;nectar/ mildly thick liquids -RS Desired Outcome (Tolerate therapeutic trials) without signs/symptoms of aspiration;without signs ofdistress;with adequate oral prep/transit/clearance -RS Reynolds (Tolerate therapeutic trials) with minimal cues (75-90% accuracy) -RS Time Frame (Tolerate therapeutic trials) 1 week -RS Progress/Outcomes (Tolerate therapeutic trials) new goal -RS (STG) Lingual Strengthening Goal 1 (PSYCH TECH) Activity (Lingual Strengthening Goal 1, PSYCH TECH) increase tongue back strength -RS Increase Tongue Back Strength lingual resistance exercises -RS Reynolds/Accuracy (Lingual Strengthening Goal 1, PSYCH TECH) with minimal cues (75- 90% accuracy) -RS Time Frame (Lingual Strengthening Goal 1, PSYCH TECH) 1 week -RS Progress/Outcomes (Lingual Strengthening Goal 1, PSYCH TECH) new goal -RS (STG) Pharyngeal Strengthening Exercise Goal 1 (PSYCH TECH) Activity (Pharyngeal Strengthening Goal 1, PSYCH TECH) increase timing;increase superior movement of the hyolaryngeal complex;increase anterior movement of the hyolaryngeal complex;increase closure at entrance to airway/closure of airway at glottis;increase squeeze/positive pressure generation;increase tongue base retraction -RS Increase Timing prepping - 3 second prep or suck swallow or 3-step swallow -RS Increase Superior Movement of the Hyolaryngeal Complex Patience -RS Increase Anterior Movement of the Hyolaryngeal Complex chin tuck against resistance (CTAR) -RS Increase Closure at Entrance to Airway/Closure of Airway at Glottis supraglottic swallow -RS Increase Squeeze/Positive Pressure Generation hard effortful swallow -RS Increase Tongue Base Retraction mike -RS Reynolds/Accuracy (Pharyngeal Strengthening Goal 1, PSYCH TECH) with minimal cues (75-90% accuracy) -RS Time Frame (Pharyngeal Strengthening Goal 1, PSYCH TECH) 1 week -RS Progress/Outcomes (Pharyngeal Strengthening Goal 1, PSYCH TECH) new goal -RS User Jung (r) = Recorded By, (t) = Taken By, (c) = Cosigned By Initials Name Provider Type RS Andrea Dukes MS CCC-PSYCH TECH Speech and Language Pathologist Time Calculation: Time Calculation- PSYCH TECH Row Name 08/31/25 0953 Time Calculation- PSYCH TECH PSYCH TECH Start Time 0815 -RS PSYCH TECH Received On 08/31/25 -RS Untimed Charges 60662-EY Fiberoptic Endo Eval Swallow Minutes 105 -RS Total Minutes Untimed Charges Total Minutes 105 -RS Total Minutes 105 -RS User Jung (r) = Recorded By, (t) = Taken By, (c) = Cosigned By Initials Name Provider Type RS Andrea Dukes MS CCC-PSYCH TECH Speech and Language Pathologist Therapy Charges for Today Code Description Service Date Service Provider Modifiers Qty [id number] ST FIBEROPTIC ENDO EVAL SWALL 7 08/31/2025 Andrea Dukes MS CCC- ISAIAH GN 1 MendezMS MARIA INES Lopez 08/31/2025 * Therapy Treatment Note - Tee Marina, PT Student - 08/31/2025 9:48 AM EST Images from the original note were not included. Patient Name: Loc Thurman : 1940 Today's Date: 08/31/2025 Admit Date: 08/27/2025 Visit Dx: ICD-10-CM ICD-9-CM 1. Acute pancreatitis, unspecified complication status, unspecified pancreatitis type K85.90 577.0 2. Cholecystitis K81.9 575.10 3. 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 Respiratory insufficiency Shock Past Medical History: Diagnosis Date Cancer COPD (chronic obstructive pulmonary disease) Hyperlipidemia Hypertension Past Surgical History: Procedure Laterality Date APPENDECTOMY CHOLECYSTECTOMY WITH INTRAOPERATIVE CHOLANGIOGRAM N/A 08/28/2025 Procedure: CHOLECYSTECTOMY LAPAROSCOPIC INTRAOPERATIVE CHOLANGIOGRAM; Surgeon: Hermes Jaramillo MD; Location: [facility]; Service: General; Laterality: N/A; COLONOSCOPY HERNIA REPAIR General Information Row Name 08/31/25 1027 Physical Therapy Time and Intention Document Type therapy note (daily note) (P) -SULAIMAN Mode of Treatment individual therapy;physical therapy (P) -SULAIMAN Row Name 08/31/25 1027 General Information Patient Profile Reviewed yes (P) -SULAIMAN Existing Precautions/Restrictions fall;oxygen therapy device and L/min;other (see comments) (P) abdominal incision; confusion; NG -SULAIMAN Barriers to Rehab medically complex;previous functional deficit;cognitive status (P) -SULAIMAN Row Name 08/31/25 1027 Cognition Orientation Status (Cognition) oriented x 3 (P) -SULAIMAN Row Name 08/31/25 1027 Safety Issues/Impairments Affecting Functional Mobility Safety Issues Affecting Function (Mobility) safety precaution awareness;safety precautions follow-through/compliance;awareness of need for assistance;sequencing abilities;insight into deficits/self-awareness;judgment (P) -SULAIMAN Impairments Affecting Function (Mobility) balance;cognition;coordination;endurance/activity tolerance;pain;postural/trunk control;shortness of breath;strength (P) -SULAIMAN Cognitive Impairments, Mobility Safety/Performance awareness, need for assistance;insight into defic its/self-awareness;judgment;problem-solving/reasoning;safety precaution awareness;safety precautionfollow-through;sequencing abilities (P) -SULAIMAN User Jung (r) = Recorded By, (t) = Taken By, (c) = Cosigned By Initials Name Provider Type Tee Taylor, PT Student PT Student Mobility Row Name 08/31/25 1027 Bed Mobility Bed Mobility supine-sit (P) -SULAIMAN Supine-Sit Reynolds (Bed Mobility) moderate assist (50% patient effort);2 person assist;verbal cues (P) -SULAIMAN Assistive Device (Bed Mobility) bed rails;head of bed elevated;repositioning sheet (P) -SULAIMAN Comment, (Bed Mobility) VCs for sequencing, assist at trunk and BLEs, increased time and effort, R lateral lean sitting EOB (P) -SULAIMAN Row Name 08/31/25 1027 Bed-Chair Transfer Bed-Chair Reynolds (Transfers) moderate assist (50% patient effort);2 person assist;verbal cues(P) -SULAIMAN Assistive Device (Bed-Chair Transfers) other (see comments) (P) BUE support -SULAIMAN Comment, (Bed-Chair Transfer) VCs for sequencing (P) -SULAIMAN Row Name 08/31/25 1027 Sit-Stand Transfer Sit-Stand Reynolds (Transfers) minimum assist (75% patient effort);2 person assist;verbal cues (P) -SULAIMAN Assistive Device (Sit-Stand Transfers) other (see comments) (P) B UE support -SULAIMAN Comment, (Sit-Stand Transfer) VCs for upright posture (P) -SULAIMAN Row Name 08/31/25 1027 Gait/Stairs (Locomotion) Reynolds Level (Gait) moderate assist (50% patient effort);2 person assist;verbal cues (P) -SULAIMAN Assistive Device (Gait) other (see comments) (P) B CAR FRAMER -SULAIMAN Distance in Feet (Gait) 16 (P) -SULAIMAN Deviations/Abnormal Patterns (Gait) bilateral deviations;cassidy decreased;stride length decreased;gait speed decreased (P) -SULAIMAN Bilateral Gait Deviations forward flexed posture;heel strike decreased (P) -SULAIMAN Comment, (Gait/Stairs) took 4 steps from chair and and back to chair x2, step to pattern, no LOB orknee buckling observed (P) -SULAIMAN User Jung (r) = Recorded By, (t) = Taken By, (c) = Cosigned By Initials Name Provider Type Tee Taylor, PT Student PT Student Obj/Interventions Row Name 08/31/25 1032 Balance Balance Assessment sitting static balance;sitting dynamic balance;standing static balance;standing dynamic balance (P) -SULAIMAN Static Sitting Balance minimal assist (P) -SULAIMAN Dynamic Sitting Balance minimal assist (P) -SULAIMAN Position, Sitting Balance sitting edge of bed;sitting in chair;supported (P) -SULAIMAN Static Standing Balance minimal assist;2-person assist;verbal cues (P) -SULAIMAN Dynamic Standing Balance moderate assist;2-person assist;verbal cues (P) -SULAIMAN Position/Device Used, Standing Balance supported (P) -SULAIMAN Balance Interventions sitting;standing;sit to stand;supported;static;dynamic (P) -SULAIMAN User Jung (r) = Recorded By, (t) = Taken By, (c) = Cosigned By Initials Name Provider Type Tee Taylor, PT Student PT Student Goals/Plan No documentation. Clinical Impression [facility] Name 08/31/25 1033 Pain Pretreatment Pain Rating 0/10 - no pain (P) -SULAIMAN Posttreatment Pain Rating 0/10 - no pain (P) -SULAIMAN [facility] 08/31/25 1033 Plan of Care Review Plan of Care Reviewed With patient;child (P) -SULAIMAN Progress improving (P) -SULAIMAN Outcome Evaluation Pt demo improvements in functional mobility this date, still below baseline d/t deficits in strength, balance, and endurance warranting further skilled IPPT. Pt amb 16 ft w/ B CAR FRAMER modAx2, further mobility limited by weakness and fatigue. Rec d/c IRF once medically ready. (P) -SULAIMAN Row Name 08/31/25 1033 Vital Signs Pre Systolic BP Rehab 175 (P) -SULAIMAN Pre Treatment Diastolic BP 105 (P) -SULAIMAN Post Systolic BP Rehab 180 (P) -SULAIMAN Post Treatment Diastolic BP 92 (P) -SULAIMAN Posttreatment Heart Rate (beats/min) 90 (P) -SULAIMAN O2 Delivery Pre Treatment nasal cannula (P) -SULAIMAN O2 Delivery Intra Treatment nasal cannula (P) -SULAIMAN Post SpO2 (%) 96 (P) -SULAIMAN O2 Delivery Post Treatment nasal cannula (P) -SULAIMAN Pre Patient Position Supine (P) -SULAIMAN Intra Patient Position Standing (P) -SULAIMAN Post Patient Position Sitting (P) -SULAIMAN Row Name 08/31/25 1033 Positioning and Restraints Pre-Treatment Position in bed (P) -SULAIMAN Post Treatment Position chair (P) -SULAIMAN In Chair notified nsg;reclined;sitting;call light within reach;encouraged to call for assist;with family/caregiver;on mechanical lift sling;waffle cushion;legs elevated (P) -SULAIMAN User Jung (r) = Recorded By, (t) = Taken By, (c) = Cosigned By Initials Name Provider Type Tee Taylor, PT Student PT Student Outcome Measures Row Name 08/31/25 1035 How much help from another person do you currently need... Turning from your back to your side while in flat bed without using bedrails? 2 (P) -SULAIMAN Moving from lying on back to sitting on the side of a flat bed without bedrails? 2 (P) -SULAIMAN Moving to and from a bed to a chair (including a wheelchair)? 2 (P) -SULAIMAN Standing up from a chair using your arms (e.g., wheelchair, bedside chair)? 2 (P) -SULAIMAN Climbing 3-5 steps with a railing? 1 (P) -SULAIMAN To walk in hospital room? 2 (P) -SULAIMAN AM-PAC 6 Clicks Score (PT) 11 (P) -SULAIMAN Highest Level of Mobility Goal Move to Chair/Commode-4 (P) -SULAIMAN Row Name 08/31/25 1035 Functional Assessment Outcome Measure Options AM-PAC 6 Clicks Basic Mobility (PT) (P) -SULAIMAN User Jung (r) = Recorded By, (t) = Taken By, (c) = Cosigned By Initials Name Provider Type Tee Taylor, PT Student PT Student Physical Therapy Education Title: PT OT PSYCH TECH Therapies (In Progress) Topic: Physical Therapy (In Progress) Point: Mobility training (Done) Learning Progress Summary Patient Acceptance, E, VU,NR by SULAIMAN at 08/31/2025 1036 Acceptance, E, NR by KG at 08/30/2025 0903 Point: Home exercise program (Not Started) Learner Progress: Not documented in this visit. Point: Body mechanics (Done) Learning Progress Summary Patient Acceptance, E, VU,NR by SULAIMAN at 08/31/2025 1036 Acceptance, E, NR by KG at 08/30/2025 0903 Point: Precautions (Done) Learning Progress Summary Patient Acceptance, E, VU,NR by SULAIMAN at 08/31/2025 1036 Acceptance, E, NR by KG at 08/30/2025 0903 User Jung Initials Effective Dates Name Provider Type Discipline KG 03/10/20 - Flora Galvan, PT Physical Therapist PT SULAIMAN 06/03/25 - Tee Marina, PT Student PT Student PT PT Recommendation and Plan Recommended discharge disposition is based on the functional assessment performed by PT/OT/Speech therapy (as applicable) and may not reflect the medical necessity determined by your provider or services covered by an individual patient's insurance plan or patient resource. Progress: (P) improving Outcome Evaluation: (P) Pt demo improvements in functional mobility this date, still below baselined/t deficits in strength, balance, and endurance warranting further skilled IPPT. Pt amb 16 ft w/ BHHA modAx2, further mobility limited by weakness and fatigue. Rec d/c IRF once medically ready. Time Calculation: PT Charges Row Name 08/31/25 1036 Time Calculation Start Time 0948 (P) -SULAIMAN PT Received On 08/31/25 (P) -SULAIMAN Timed Charges 76740 - PT Therapeutic Activity Minutes 24 (P) -SULAIMAN Total Minutes Timed Charges Total Minutes 24 (P) -SULAIMAN Total Minutes 24 (P) -SULAIMAN User Jung (r) = Recorded By, (t) = Taken By, (c) = Cosigned By Initials Name Provider Type SULAIMAN Tee Marina, PT Student PT Student Therapy Charges for Today Code Description Service Date Service Provider Modifiers Qty [id number] PT THERAPEUTIC ACT EA 15 MIN 08/31/2025 Tee Marina, PT Student GP 2 PT G-Codes Outcome Measure Options: (P) AM-PAC 6 Clicks Basic Mobility (PT) AM-PAC 6 Clicks Score (PT): (P) 11 AM-PAC 6 Clicks Score (OT): 12 PT Discharge Summary Anticipated Discharge Disposition (PT): (P) inpatient rehabilitation facility Tee Marina PT Student 08/31/2025 Cosigned by Flora Galvan, PT at 08/31/2025 1:04 PM EST Associated attestation - Flora Galvan, PT - 08/31/2025 1:04 PM EST Ellen Galvan, PT 08/31/2025 13:04 EST * Case Management/Social Work - Félix Azul, RN - 08/31/2025 8:32 AM EST Continued Stay Note Basil Patient Name: Loc Thurman Today's Date: 08/31/2025 Admit Date: 08/27/2025 Plan: [facility] Discharge Plan Row Name 08/31/25 0830 Plan Plan [facility] Patient/Family in Agreement with Plan yes Plan Comments Spoke with patient at bedside. Patient requested [facility] for rehab. CM faxed a referral to [facility]. CM will continuie to follow. Final Discharge Disposition Code 03 [facility] Discharge Codes No documentation. Félix Azul RN * Therapy Evaluation - Alma Aiken, Speech Therapy Student - 08/30/2025 11:22 AM EST Images from the original note were not included. Acute Care - Speech Language Pathology Swallow Initial Evaluation Basil Clinical Swallow Evaluation Patient Name: Loc Thumran : 1940 Today's Date: 08/30/2025 Admit Date: 08/27/2025 Visit Dx: ICD-10-CM ICD-9-CM 1. Acute pancreatitis, unspecified complication status, unspecified pancreatitis type K85.90 577.0 2. Cholecystitis K81.9 575.10 3. Dysphagia, unspecified type R13.10 787.20 Patient Active Problem List Diagnosis Acute pancreatitis Vasovagal syncope HTN (hypertension) Mixed hyperlipidemia COPD (chronic obstructive pulmonary disease) Former tobacco use History of prostate cancer BPH with obstruction/lower urinary tract symptoms Respiratory insufficiency Shock Past Medical History: Diagnosis Date Cancer COPD (chronic obstructive pulmonary disease) Hyperlipidemia Hypertension Past Surgical History: Procedure Laterality Date APPENDECTOMY CHOLECYSTECTOMY WITH INTRAOPERATIVE CHOLANGIOGRAM N/A 08/28/2025 Procedure: CHOLECYSTECTOMY LAPAROSCOPIC INTRAOPERATIVE CHOLANGIOGRAM; Surgeon: Hermes Jaramillo MD; Location: [facility]; Service: General; Laterality: N/A; COLONOSCOPY HERNIA REPAIR PSYCH TECH Recommendation and Plan Recommended discharge disposition is based on the functional assessment performed by PT/OT/Speech therapy (as applicable) and may not reflect the medical necessity determined by your provider or services covered by an individual patient's insurance plan or patient resource. PSYCH TECH Swallowing Diagnosis: (P) suspected pharyngeal dysphagia (08/30/251004) PSYCH TECH Diet Recommendation: (P) NPO (08/30/251004) PSYCH TECH Rec. for Method of Medication Administration: (P) meds via alternate route (08/30/251004) Monitor for Signs of Aspiration: (P) yes, notify PSYCH TECH if any concerns (08/30/251004) Recommended Diagnostics: (P) FEES, other (see comments) (When medically appropriate/ cleared by surgery.) (08/30/251004) Swallow Criteria for Skilled Therapeutic Interventions Met: (P) demonstrates skilled criteria (08/30/251004) Anticipated Discharge Disposition (PSYCH TECH): (P) inpatient rehabilitation facility (08/30/251004) Rehab Potential/Prognosis, Swallowing: (P) good, to achieve stated therapy goals (08/30/251004) Predicted Duration Therapy Intervention (Days): (P) 2 weeks (08/30/251004) Oral Care Recommendations: (P) Oral Care BID/PRN, Suction toothbrush (08/30/251004) SWALLOW EVALUATION (Last 72 Hours) PSYCH TECH Adult Swallow Evaluation Row Name 08/30/251004 Rehab Evaluation Document Type evaluation (P) -IG Subjective Information no complaints (P) -IG Patient Observations alert;cooperative (P) -IG Patient/Family/Caregiver Comments/Observations Son arrived during eval (P) -IG Patient Effort good (P) -IG Symptoms Noted During/After Treatment none (P) -IG Oral Care teeth brushed - suction toothbrush;tongue brushed (P) -IG General Information Patient Profile Reviewed yes (P) -IG Pertinent History Of Current Problem Pt adm w/ new left lung mass who was transferred from OSH 08/27/2025 for evaluation of possible pancreatitis and cholecystitis. CXR showed increased infiltrate or atelectasis at the right lung base.Hx: PMH COPD, pancreatitis, hypertension, prostate cancer s/p XRTand hormonal therapy 2014, and hyperlipidemia. (P) -IG Current Method of Nutrition NPO;large-bore (P) RN reported started trophic feeding today -IG Precautions/Limitations, Vision WFL;for purposes of eval (P) -IG Precautions/Limitations, Hearing WFL;for purposes of eval (P) -IG Prior Level of Function-Communication unknown (P) -IG Prior Level of Function-Swallowing no diet consistency restrictions (P) -IG Plans/Goals Discussed with patient;agreed upon (P) -IG Barriers to Rehab none identified (P) -IG Patient's Goals for Discharge patient did not state (P) -IG Pain Additional Documentation Pain Scale: FACES Pre/Post-Treatment (Group) (P) -IG Pain Scale: FACES Pre/Post-Treatment Pain: FACES Scale, Pretreatment 2-->hurts little bit (P) -IG Posttreatment Pain Rating 0-->no hurt (P) -IG Oral Motor Structure and Function Dentition Assessment edentulous (P) -IG Secretion Management dried secretions in oral cavity (P) -IG Mucosal Quality dry;sticky (P) -IG Oral Musculature and Cranial Nerve Assessment Oral Motor General Assessment WFL (P) -IG General Eating/Swallowing Observations Respiratory Support Currently in Use nasal cannula (P) -IG Eating/Swallowing Skills self-fed;fed by PSYCH TECH (P) -IG Positioning During Eating upright 90 degree;upright in chair (P) -IG Utensils Used spoon;cup (P) -IG Consistencies Trialed pureed;ice chips;thin liquids;nectar/syrup-thick liquids (P) -IG Clinical Swallow Eval Oral Prep Phase WFL (P) -IG Oral Transit WFL (P) -IG Oral Residue WFL (P) -IG Pharyngeal Phase suspected pharyngeal impairment (P) -IG Esophageal Phase unremarkable (P) -IG Pharyngeal Phase Concerns Pharyngeal Phase Concerns multiple swallows;cough (P) -IG Multiple Swallows thin;nectar (P) -IG Cough nectar;other (see comments) (P) Suspect possible delayed cough from thin liquid -IG Pharyngeal Phase Concerns, Comment PO trials okay'd by RN and (P) -IG PSYCH TECH Evaluation Clinical Impression PSYCH TECH Swallowing Diagnosis suspected pharyngeal dysphagia (P) -IG Functional Impact risk of aspiration/pneumonia;risk of malnutrition;risk of dehydration (P) -IG Rehab Potential/Prognosis, Swallowing good, to achieve stated therapy goals (P) -IG Swallow Criteria for Skilled Therapeutic Interventions Met demonstrates skilled criteria (P) -IG Recommendations Predicted Duration Therapy Intervention (Days) 2 weeks (P) -IG PSYCH TECH Diet Recommendation NPO (P) -IG Recommended Diagnostics FEES;other (see comments) (P) When medically appropriate/ cleared by surgery. -IG Oral Care Recommendations Oral Care BID/PRN;Suction toothbrush (P) -IG PSYCH TECH Rec. for Method of Medication Administration meds via alternate route (P) -IG Monitor for Signs of Aspiration yes;notify PSYCH TECH if any concerns (P) -IG Anticipated Discharge Disposition (PSYCH TECH) inpatient rehabilitation facility (P) -IG User Jung (r) = Recorded By, (t) = Taken By, (c) = Cosigned By Initials Name Effective Dates IG Alma Aiken Speech Therapy Student 06/08/25 - EDUCATION The patient has been educated in the following areas: Dysphagia (Swallowing Impairment) Oral Care/Hydration. Time Calculation: Time Calculation- PSYCH TECH Row Name 08/30/25 1121 Time Calculation- PSYCH TECH PSYCH TECH Start Time 1005 (P) -IG PSYCH TECH Received On 08/30/25 (P) -IG Untimed Charges 62921-RZ Eval Oral Pharyng Swallow Minutes 55 (P) -IG Total Minutes Untimed Charges Total Minutes 55 (P) -IG Total Minutes 55 (P) -IG User Jung (r) = Recorded By, (t) = Taken By, (c) = Cosigned By Initials Name Provider Type IG Alma Aiken Speech Therapy Student PSYCH TECH Student Therapy Charges for Today Code Description Service Date Service Provider Modifiers Qty [id number] ST EVAL ORAL PHARYNG SWALLOW 4 08/30/2025 Alma Aiken Speech Therapy Student GN1 Alma Aiken Speech Therapy Student 08/30/2025 Cosigned by Lea Echols MS CCC-PSYCH TECH at 08/30/2025 11:58 AM EST Associated attestation - Lea Echols MS CCC-PSYCH TECH - 08/30/2025 11:58 AM EST Lea Echols MS CCC-PSYCH TECH * Case Management/Social Work - Félix Azul, RN - 08/30/2025 11:14 AM EST Continued Stay Note [facility] Patient Name: Loc Thurman Today's Date: 08/30/2025 Admit Date: 08/27/2025 Plan: Home Discharge Plan Row Name 08/30/25 1113 Plan Plan Home Patient/Family in Agreement with Plan yes Plan Comments Spoke to patient at bedside. Patient was extubated last night. Patient would like to go home at discharge pending PT/OT recs. Speech is planning a FEES today. CM will continue to follow. Final Discharge Disposition Code 01 - home or self-care Discharge Codes No documentation. Félix Azul RN * Therapy Evaluation - Aury Fitzgerald OT - 08/30/2025 9:16 AM EST Images from the original note were not included. Patient Name: Loc Thurman : 1940 Today's Date: 08/30/2025 Admit Date: 08/27/2025 Visit Dx: ICD-10-CM ICD-9-CM 1. Acute pancreatitis, unspecified complication status, unspecified pancreatitis type K85.90 577.0 2. Cholecystitis K81.9 575.10 3. Dysphagia, unspecified type R13.10 787.20 Patient Active Problem List Diagnosis Acute pancreatitis Vasovagal syncope HTN (hypertension) Mixed hyperlipidemia COPD (chronic obstructive pulmonary disease) Former tobacco use History of prostate cancer BPH with obstruction/lower urinary tract symptoms Respiratory insufficiency Shock Past Medical History: Diagnosis Date Cancer COPD (chronic obstructive pulmonary disease) Hyperlipidemia Hypertension Past Surgical History: Procedure Laterality Date APPENDECTOMY CHOLECYSTECTOMY WITH INTRAOPERATIVE CHOLANGIOGRAM N/A 08/28/2025 Procedure: CHOLECYSTECTOMY LAPAROSCOPIC INTRAOPERATIVE CHOLANGIOGRAM; Surgeon: Hermes Jaramillo MD; Location: [facility]; Service: General; Laterality: N/A; COLONOSCOPY HERNIA REPAIR General Information Row Name 08/30/25 1140 OT Time and Intention Document Type evaluation - Mode of Treatment occupational therapy;co-treatment - Row Name 08/30/25 1140 General Information Patient Profile Reviewed yes - Prior Level of Function independent:;bed mobility;transfer;all household mobility;community mobility;ADL's Pt I w/ ADLs at baseline, uses RW PRN. - Existing Precautions/Restrictions fall;oxygen therapy device and L/min;other (see comments) abd incision, 5LNC - Barriers to Rehab medically complex;previous functional deficit - Row Name 08/30/25 1140 Living Environment Current Living Arrangements home - People in Home alone - Row Name 08/30/25 1140 Home Main Entrance Number of Stairs, Main Entrance four - Stair Railings, Main Entrance none - Row Name 08/30/25 1140 Stairs Within Home, Primary Number of Stairs, Within Home, Primary none - Row Name 08/30/25 1140 Cognition Orientation Status (Cognition) oriented x 3 - Row Name 08/30/25 1140 Safety Issues/Impairments Affecting Functional Mobility Safety Issues Affecting Function (Mobility) awareness of need for assistance;insight into deficits/self-awareness;safety precaution awareness;safety precautions follow-through/compliance;sequencing abilities - Impairments Affecting Function (Mobility) balance;cognition;endurance/activity tolerance;pain;postural/trunk control;shortness of breath;strength - Cognitive Impairments, Mobility Safety/Performance awareness, need for assistance;insight into deficits/self-awareness;safety precaution awareness;safety precaution follow-through;sequencing abilities - User Jung (r) = Recorded By, (t) = Taken By, (c) = Cosigned By Initials Name Provider Type Aury Fitzgerald OT Occupational Therapist Mobility/ADL's Row Name 08/30/25 1141 Bed Mobility Bed Mobility supine-sit - Supine-Sit Reynolds (Bed Mobility) moderate assist (50% patient effort);2 person assist;verbal cues - Bed Mobility, Safety Issues decreased use of arms for pushing/pulling;decreased use of legs for bridging/pushing;impaired trunk control for bed mobility;cognitive deficits limit understanding - Assistive Device (Bed Mobility) bed rails;head of bed elevated;repositioning sheet - Row Name 08/30/25 1141 Transfers Transfers sit-stand transfer;stand-sit transfer;toilet transfer;bed-chair transfer - Comment, (Transfers) Pt mod Ax2 for STS & SPT from [id number] but req max Ax2 for SPT from [id number]. - Row Name 08/30/25 1141 Bed-Chair Transfer Bed-Chair Reynolds (Transfers) moderate assist (50% patient effort);2 person assist;verbal cues- Assistive Device (Bed-Chair Transfers) other (see comments) BUE support - Row Name 08/30/25 1141 Sit-Stand Transfer Sit-Stand Reynolds (Transfers) moderate assist (50% patient effort);2 person assist;verbal cues- Assistive Device (Sit-Stand Transfers) other (see comments) - Row Name 08/30/25 1141 Stand-Sit Transfer Stand-Sit Reynolds (Transfers) moderate assist (50% patient effort);2 person assist;verbal cues- Assistive Device (Stand-Sit Transfers) other (see comments) - Row Name 08/30/25 1141 Toilet Transfer Type (Toilet Transfer) sit-stand;stand-sit;stand pivot/stand step - Reynolds Level (Toilet Transfer) maximum assist (25% patient effort);2 person assist;verbal cues - Assistive Device (Toilet Transfer) commode, bedside without drop arms - Row Name 08/30/25 1141 Activities of Daily Living BADL Assessment/Intervention lower body dressing;upper body dressing - Row Name 08/30/25 1141 Lower Body Dressing Assessment/Training Reynolds Level (Lower Body Dressing) don;socks;dependent (less than 25% patient effort) - Position (Lower Body Dressing) supine - Row Name 08/30/25 1141 Upper Body Dressing Assessment/Training Reynolds Level (Upper Body Dressing) don;pajama/robe;maximum assist (25% patient effort) - Position (Upper Body Dressing) edge of bed sitting - User Jung (r) = Recorded By, (t) = Taken By, (c) = Cosigned By Initials Name Provider Type Aury Fitzgerald OT Occupational Therapist Obj/Interventions [facility] 08/30/25 1145 Sensory Assessment (Somatosensory) Sensory Assessment (Somatosensory) UE sensation intact -[facility] 08/30/25 1145 Vision Assessment/Intervention Visual Impairment/Limitations WFL -[facility] 08/30/25 1145 Range of Motion Comprehensive General Range of Motion bilateral upper extremity ROM WFL -[facility] 08/30/25 1145 Strength Comprehensive (MMT) General Manual Muscle Testing (MMT) Assessment upper extremity strength deficits identified - Comment, General Manual Muscle Testing (MMT) Assessment BUE grossly 4-/5 -[facility] 08/30/25 1145 Balance Balance Assessment sitting static balance;sitting dynamic balance;sit to stand dynamic balance;standing static balance;standing dynamic balance - Static Sitting Balance minimal assist - Dynamic Sitting Balance moderate assist - Position, Sitting Balance unsupported;sitting in chair;sitting edge of bed - Sit to Stand Dynamic Balance moderate assist;2-person assist;verbal cues - Static Standing Balance moderate assist;2-person assist;verbal cues - Dynamic Standing Balance maximum assist;2-person assist;verbal cues - Position/Device Used, Standing Balance supported - Balance Interventions sitting;sit to stand;occupation based/functional task - User Jung (r) = Recorded By, (t) = Taken By, (c) = Cosigned By Initials Name Provider Type Aury Fitzgerald OT Occupational Therapist Goals/Plan [facility] 08/30/25 1147 Transfer Goal 1 (OT) Activity/Assistive Device (Transfer Goal 1, OT) ket-sl-stras/dtzjz-cu-gbb;toilet;walker, rolling - Reynolds Level/Cues Needed (Transfer Goal 1, OT) standby assist - Time Frame (Transfer Goal 1, OT) supervisor intermediates goal (LTG);10 days - Progress/Outcome (Transfer Goal 1, OT) goal ongoing -[facility] 08/30/25 114 Toileting Goal 1 (OT) Activity/Device (Toileting Goal 1, OT) adjust/manage clothing;perform perineal hygiene;commode;grabbar/safety frame - Reynolds Level/Cues Needed (Toileting Goal 1, OT) standby assist - Time Frame (Toileting Goal 1, OT) short term goal (STG);5 days - Progress/Outcome (Toileting Goal 1, OT) goal ongoing - Row Name 08/30/25 1147 Grooming Goal 1 (OT) Activity/Device (Grooming Goal 1, OT) hair care;oral care;wash face, hands - Reynolds (Grooming Goal 1, OT) standby assist - Time Frame (Grooming Goal 1, OT) supervisor intermediates goal (LTG);10 days - Progress/Outcome (Grooming Goal 1, OT) goal ongoing -[facility] Name 08/30/25 1144 Therapy Assessment/Plan (OT) Planned Therapy Interventions (OT) activity tolerance training;adaptive equipment training;BADL retraining;functional balance retraining;IADL retraining;occupation/activity based interventions;patient/caregiver education/training;ROM/therapeutic exercise;strengthening exercise;transfer/mobility retraining - User Jung (r) = Recorded By, (t) = Taken By, (c) = Cosigned By Initials Name Provider Type Aury Fitzgerald, OT Occupational Therapist Clinical Impression [facility] 08/30/25 1140 Pain Assessment Pain Location abdomen - Pain Side/Orientation generalized - Pain Management Interventions exercise or physical activity utilized;positioning techniques utilized - Response to Pain Interventions activity participation with tolerable pain - Additional Documentation Pain Scale: FACES Pre/Post-Treatment (Group) -[facility] 08/30/25 0865 Pain Scale: FACES Pre/Post-Treatment Pain: FACES Scale, Pretreatment 4-->hurts little more - Posttreatment Pain Rating 4-->hurts little more -[facility] Name 08/30/25 1144 Plan of Care Review Plan of Care Reviewed With patient;son - Outcome Evaluation Pt's ADL independence limited d/t generalized weakness, decrease functional endurance, balance deficits, and pain. Pt would benefit from continued skilled IPOT services to address current functional deficits. Rec IRF at d/c. -[facility] Name 08/30/25 1147 Therapy Assessment/Plan (OT) Patient/Family Therapy Goal Statement (OT) Return to PLOF - Rehab Potential (OT) good - Criteria for Skilled Therapeutic Interventions Met (OT) yes;skilled treatment is necessary - Therapy Frequency (OT) daily - Predicted Duration of Therapy Intervention (OT) 10 days -[facility] 08/30/25 5110 Therapy Plan Review/Discharge Plan (OT) Anticipated Discharge Disposition (OT) inpatient rehabilitation facility - Row Name 08/30/25 1145 Vital Signs Pre Systolic BP Rehab 163 -[facility] Pre Treatment Diastolic BP 86 -[facility] Intra Systolic BP Rehab 167 -[facility] Intra Treatment Diastolic BP 72 -[facility] Post Systolic BP Rehab 151 -[facility] Post Treatment Diastolic BP 75 -[facility] Pretreatment Heart Rate (beats/min) 80 -[facility] Posttreatment Heart Rate (beats/min) 81 -[facility] Pre SpO2 (%) 98 -[facility] O2 Delivery Pre Treatment nasal cannula - O2 Delivery Intra Treatment nasal cannula - Post SpO2 (%) 98 -[facility] O2 Delivery Post Treatment nasal cannula -[facility] Pre Patient Position Supine - Intra Patient Position Standing - Post Patient Position Sitting - Row Name 08/30/25 1145 Positioning and Restraints Pre-Treatment Position in bed - Post Treatment Position bsc - On BS commode notified nsg;sitting;call light within reach;encouraged to call for assist;with family/caregiver - User Jung (r) = Recorded By, (t) = Taken By, (c) = Cosigned By Initials Name Provider Type Aury Gallegos OT Occupational Therapist Outcome Measures Row Name 08/30/25 1147 How much help from another is currently needed... Putting on and taking off regular lower body clothing? 1 -[facility] Bathing (including washing, rinsing, and drying) 2 -[facility] Toileting (which includes using toilet bed currie or urinal) 1 -[facility] Putting on and taking off regular upper body clothing 2 -[facility] Taking care of personal grooming (such as brushing teeth) 3 -[facility] Eating meals 3 - AM-PAC 6 Clicks Score (OT) 12 - Row Name 08/30/25 1147 Functional Assessment Outcome Measure Options AM-PAC 6 Clicks Daily Activity (OT) - User Jung (r) = Recorded By, (t) = Taken By, (c) = Cosigned By Initials Name Provider Type Aury Gallegos OT Occupational Therapist Occupational Therapy Education Title: PT OT PSYCH TECH Therapies (In Progress) Topic: Occupational Therapy (In Progress) Point: ADL training (In Progress) Learning Progress Summary Patient Acceptance, E, NR by at 08/30/2025 1147 Point: Precautions (In Progress) Learning Progress Summary Patient Acceptance, E, NR by at 08/30/2025 1147 Point: Body mechanics (In Progress) Learning Progress Summary Patient Acceptance, E, NR by at 08/30/2025 1147 User Jung Initials Effective Dates Name Provider Type Discipline 08/02/22 - Aury Fitzgerald OT Occupational Therapist OT OT Recommendation and Plan Recommended discharge disposition is based on the functional assessment performed by PT/OT/Speech therapy (as applicable) and may not reflect the medical necessity determined by your provider or services covered by an individual patient's insurance plan or patient resource. Planned Therapy Interventions (OT): activity tolerance training, adaptive equipment training, BADL retraining, functional balance retraining, IADL retraining, occupation/activity based interventions,patient/caregiver education/training, ROM/therapeutic exercise, strengthening exercise, transfer/mobility retraining Therapy Frequency (OT): daily Plan of Care Review Plan of Care Reviewed With: patient, son Outcome Evaluation: Pt's ADL independence limited d/t generalized weakness, decrease functional endurance, balance deficits, and pain. Pt would benefit from continued skilled IPOT services to addresscurrent functional deficits. Rec IRF at d/c. Time Calculation: Evaluation Complexity (OT) Review Occupational Profile/Medical/Therapy History Complexity: expanded/moderate complexity Assessment, Occupational Performance/Identification of Deficit Complexity: 3-5 performance deficits Clinical Decision Making Complexity (OT): detailed assessment/moderate complexity Overall Complexity of Evaluation (OT): moderate complexity Time Calculation- OT Row Name 08/30/25 1147 Time Calculation- OT OT Start Time 0916 - OT Received On 08/30/25 - OT Goal Re-Cert Due Date 09/09/25 - Untimed Charges OT Eval/Re-eval Minutes 47 -MC Total Minutes Untimed Charges Total Minutes 47 -MC Total Minutes 47 -MC User Jung (r) = Recorded By, (t) = Taken By, (c) = Cosigned By Initials Name Provider Type Aury Fitzgerald OT Occupational Therapist Therapy Charges for Today Code Description Service Date Service Provider Modifiers Qty [id number] OT EVAL MOD COMPLEXITY 4 08/30/2025 Aury Fitzgerald OT GO 1 Aury Fitzgerald OT 08/30/2025 * Therapy Evaluation - Flora Galvan, PT - 08/30/2025 9:03 AM EST Images from the original note were not included. Patient Name: Loc Thurman : 1940 Today's Date: 08/30/2025 Admit Date: 08/27/2025 Visit Dx: ICD-10-CM ICD-9-CM 1. Acute pancreatitis, unspecified complication status, unspecified pancreatitis type K85.90 577.0 2. Cholecystitis K81.9 575.10 3. Dysphagia, unspecified type R13.10 787.20 Patient Active Problem List Diagnosis Acute pancreatitis Vasovagal syncope HTN (hypertension) Mixed hyperlipidemia COPD (chronic obstructive pulmonary disease) Former tobacco use History of prostate cancer BPH with obstruction/lower urinary tract symptoms Respiratory insufficiency Shock Past Medical History: Diagnosis Date Cancer COPD (chronic obstructive pulmonary disease) Hyperlipidemia Hypertension Past Surgical History: Procedure Laterality Date APPENDECTOMY CHOLECYSTECTOMY WITH INTRAOPERATIVE CHOLANGIOGRAM N/A 08/28/2025 Procedure: CHOLECYSTECTOMY LAPAROSCOPIC INTRAOPERATIVE CHOLANGIOGRAM; Surgeon: Hermes Jaramillo MD; Location: [facility]; Service: General; Laterality: N/A; COLONOSCOPY HERNIA REPAIR General Information Row Name 08/30/25 1333 Physical Therapy Time and Intention Document Type evaluation -KG Mode of Treatment physical therapy -KG Row Name 08/30/25 133 General Information Patient Profile Reviewed yes -KG Prior Level of Function independent:;all household mobility;gait;transfer;ADL's;dressing;bathing -KG Existing Precautions/Restrictions fall;oxygen therapy device and L/min;other (see comments) abdominal incision; confusion; NG -KG Barriers to Rehab medically complex;cognitive status;hearing deficit -KG Row Name 08/30/25 1333 Living Environment Current Living Arrangements home -KG People in Home alone -KG Row Name 08/30/25 1333 Home Main Entrance Number of Stairs, Main Entrance four -KG Stair Railings, Main Entrance none -KG Row Name 08/30/25 1333 Stairs Within Home, Primary Number of Stairs, Within Home, Primary none -KG Row Name 08/30/25 1333 Cognition Orientation Status (Cognition) oriented x 3 -KG Row Name 08/30/25 1333 Safety Issues/Impairments Affecting Functional Mobility Safety Issues Affecting Function (Mobility) awareness of need for assistance;insight into deficits/self-awareness;judgment;safety precaution awareness;safety precautions follow-through/compliance;sequencing abilities -KG Impairments Affecting Function (Mobility) balance;cognition;coordination;endurance/activity tolerance;pain;postural/trunk control;shortness of breath;strength -KG Cognitive Impairments, Mobility Safety/Performance attention;awareness, need for assistance;insightinto deficits/self-awareness;judgment;safety precaution awareness;safety precaution follow-through;sequencing abilities -KG User Jung (r) = Recorded By, (t) = Taken By, (c) = Cosigned By Initials Name Provider Type KG Flora Galvan, PT Physical Therapist Mobility Row Name 08/30/25 133 Bed Mobility Bed Mobility supine-sit -KG Supine-Sit Reynolds (Bed Mobility) moderate assist (50% patient effort);2 person assist;verbal cues -KG Assistive Device (Bed Mobility) bed rails;head of bed elevated;repositioning sheet -KG Comment, (Bed Mobility) VC's for sequencing and technique. Pt required increased assistance at trunk and BLEs. Increased time and effort required to complete. Once seated EOB pt demonstrated R lateral lean. -KG Row Name 08/30/25 133 Transfers Comment, (Transfers) Pt performed STS from EOB with blocking of елена knees and B UE support. Pt demonstrated very forward flexed posture with елена knee flexion; difficulty achieving full upright posture. Pt able to take steps from bed to chair with modA x2 and B UE support. Pt performed SPT from chair to BSC with maxA x2 demonstrating increased difficulty advancing LEs. -KG Row Name 08/30/25 133 Bed-Chair Transfer Bed-Chair Reynolds (Transfers) maximum assist (25% patient effort);2 person assist;verbal cues -KG Assistive Device (Bed-Chair Transfers) other (see comments) B UE support -KG Row Name 08/30/25 133 Sit-Stand Transfer Sit-Stand Reynolds (Transfers) moderate assist (50% patient effort);2 person assist;verbal cues-KG Assistive Device (Sit-Stand Transfers) other (see comments) B UE support -KG Row Name 08/30/251333 Gait/Stairs (Locomotion) Reynolds Level (Gait) moderate assist (50% patient effort);2 person assist;verbal cues -KG Assistive Device (Gait) other (see comments) B UE support -KG Distance in Feet (Gait) 2 -KG Deviations/Abnormal Patterns (Gait) bilateral deviations;cassidy decreased;festinating/shuffling;stride length decreased -KG Bilateral Gait Deviations forward flexed posture;heel strike decreased -KG Comment, (Gait/Stairs) Pt able to take steps from bed to chair. Initially utilized tripod monitor, but pt had tendency to push too far forward creating more forward flexed posture. Deferred usage dueto safety concerns. Pt improved slightly with use of B UE support. -KG User Jung (r) = Recorded By, (t) = Taken By, (c) = Cosigned By Initials Name Provider Type KG Flora Galvan PT Physical Therapist Obj/Interventions Row Name 08/30/25 133 Range of Motion Comprehensive General Range of Motion no range of motion deficits identified -KG Comment, General Range of Motion B LE WFL -KG Row Name 08/30/25 133 Strength Comprehensive (MMT) Comment, General Manual Muscle Testing (MMT) Assessment B LE grossly 3+/5 -KG Row Name 08/30/25 133 Balance Balance Assessment sitting static balance;standing static balance;standing dynamic balance -KG Static Sitting Balance minimal assist -KG Position, Sitting Balance supported;sitting edge of bed -KG Static Standing Balance moderate assist;2-person assist -KG Dynamic Standing Balance maximum assist;2-person assist -KG Position/Device Used, Standing Balance supported -KG Row Name 08/30/25 133 Sensory Assessment (Somatosensory) Sensory Assessment (Somatosensory) LE sensation intact -KG User Jung (r) = Recorded By, (t) = Taken By, (c) = Cosigned By Initials Name Provider Type KG Flora Galvan PT Physical Therapist Goals/Plan Row Name 08/30/25 1332 Bed Mobility Goal 1 (PT) Activity/Assistive Device (Bed Mobility Goal 1, PT) sit to supine;supine to sit -KG Reynolds Level/Cues Needed (Bed Mobility Goal 1, PT) minimum assist (75% or more patient effort) -KG Time Frame (Bed Mobility Goal 1, PT) short term goal (STG);5 days -KG Progress/Outcomes (Bed Mobility Goal 1, PT) goal ongoing -KG Row Name 08/30/25 133 Transfer Goal 1 (PT) Activity/Assistive Device (Transfer Goal 1, PT) gvi-ne-uuxno/smnoh-gv-rwm;npu-it-qkbem/iifut-vn-gvw;walker, rolling -KG Reynolds Level/Cues Needed (Transfer Goal 1, PT) minimum assist (75% or more patient effort) -KG Time Frame (Transfer Goal 1, PT) intermediate goal (LTG);10 days -KG Progress/Outcome (Transfer Goal 1, PT) goal ongoing -KG Row Name 08/30/25 513 Gait Training Goal 1 (PT) Activity/Assistive Device (Gait Training Goal 1, PT) gait (walking locomotion);assistive device use;walker, rolling -KG Reynolds Level (Gait Training Goal 1, PT) moderate assist (50-74% patient effort) -KG Distance (Gait Training Goal 1, PT) 50 feet -KG Time Frame (Gait Training Goal 1, PT) supervisor intermediates goal (LTG);10 days -KG Progress/Outcome (Gait Training Goal 1, PT) goal ongoing -KG Row Name 08/30/25 4570 Therapy Assessment/Plan (PT) Planned Therapy Interventions (PT) balance training;bed mobility training;gait training;strengthening;transfer training -KG User Jung (r) = Recorded By, (t) = Taken By, (c) = Cosigned By Initials Name Provider Type KG Flora Galvan, PT Physical Therapist Clinical Impression Row Name 08/30/25 6783 Pain Additional Documentation Pain Scale: FACES Pre/Post-Treatment (Group) -KG Row Name 08/30/25 3747 Pain Scale: FACES Pre/Post-Treatment Pain: FACES Scale, Pretreatment 4-->hurts little more -KG Posttreatment Pain Rating 6-->hurts even more -KG Row Name 08/30/25 7603 Plan of Care Review Plan of Care Reviewed With patient -KG Outcome Evaluation PT initial evaluation completed for pt s/p cholecystectomy presenting with generalized weakness, increased SOA, impaired balance and coordination, c/o incisional pain, and decreased functional mobility. Pt required modA x2 for STS transfers and modA x2- maxA x2 to take steps frombed to chair and BSC. Pt's decreased independence warrants clinical account executive care. Recommend D/C to IP rehab facility. -KG Row Name 08/30/25 4647 Therapy Assessment/Plan (PT) Patient/Family Therapy Goals Statement (PT) return to PLOF -KG Rehab Potential (PT) good -KG Criteria for Skilled Interventions Met (PT) yes;skilled treatment is necessary -KG Therapy Frequency (PT) daily -KG Predicted Duration of Therapy Intervention (PT) 10 days -KG Row Name 08/30/25 1337 Vital Signs Pre Systolic BP Rehab 163 -KG Pre Treatment Diastolic BP 86 -KG Post Systolic BP Rehab 151 -KG Post Treatment Diastolic BP 75 -KG Pretreatment Heart Rate (beats/min) 80 -KG Posttreatment Heart Rate (beats/min) 83 -KG Pre SpO2 (%) 98 -KG O2 Delivery Pre Treatment supplemental O2 -KG Post SpO2 (%) 98 -KG O2 Delivery Post Treatment supplemental O2 -KG Pre Patient Position Supine -KG Intra Patient Position Standing -KG Post Patient Position Sitting -KG Row Name 08/30/25 1337 Positioning and Restraints Pre-Treatment Position in bed -KG Post Treatment Position bsc -KG On BS commode notified nsg;sitting;call light within reach;encouraged to call for assist;with family/caregiver -KG User Jung (r) = Recorded By, (t) = Taken By, (c) = Cosigned By Initials Name Provider Type Flora Finley, PT Physical Therapist Outcome Measures Row Name 08/30/25 1340 How much help from another person do you currently need... Turning from your back to your side while in flat bed without using bedrails? 2 -KG Moving from lying on back to sitting on the side of a flat bed without bedrails? 2 -KG Moving to and from a bed to a chair (including a wheelchair)? 2 -KG Standing up from a chair using your arms (e.g., wheelchair, bedside chair)? 2 -KG Climbing 3-5 steps with a railing? 1 -KG To walk in hospital room? 2 -KG AM-PAC 6 Clicks Score (PT) 11 -KG Highest Level of Mobility Goal Move to Chair/Commode-4 -KG Row Name 08/30/25 1340 08/30/25 1147 Functional Assessment Outcome Measure Options AM-PAC 6 Clicks Basic Mobility (PT) -KG AM-PAC 6 Clicks Daily Activity (OT)- User Jung (r) = Recorded By, (t) = Taken By, (c) = Cosigned By Initials Name Provider Type Flora Finley, PT Physical Therapist Aury Gallegos OT Occupational Therapist Physical Therapy Education Title: PT OT PSYCH TECH Therapies (In Progress) Topic: Physical Therapy (In Progress) Point: Mobility training (In Progress) Learning Progress Summary Patient Acceptance, E, NR by KG at 08/30/2025902 Point: Home exercise program (Not Started) Learner Progress: Not documented in this visit. Point: Body mechanics (In Progress) Learning Progress Summary Patient Acceptance, E, NR by KG at 08/30/2025902 Point: Precautions (In Progress) Learning Progress Summary Patient Acceptance, E, NR by KG at 08/30/2025902 User Jung Initials Effective Dates Name Provider Type Discipline KG 03/10/20 - Flora Galvan, PT Physical Therapist PT PT Recommendation and Plan Recommended discharge disposition is based on the functional assessment performed by PT/OT/Speech therapy (as applicable) and may not reflect the medical necessity determined by your provider or services covered by an individual patient's insurance plan or patient resource. Planned Therapy Interventions (PT): balance training, bed mobility training, gait training, strengthening, transfer training Therapy Frequency (PT): daily Outcome Evaluation: PT initial evaluation completed for pt s/p cholecystectomy presenting with generalized weakness, increased SOA, impaired balance and coordination, c/o incisional pain, and decreased functional mobility. Pt required modA x2 for STS transfers and modA x2- maxA x2 to take steps from bed to chair and BSC. Pt's decreased independence warrants clinical account executive care. Recommend D/C to IP rehab facility. Time Calculation: PT Evaluation Complexity History, PT Evaluation Complexity: 3 or more personal factors and/or comorbidities Examination of Body Systems (PT Eval Complexity): total of 3 or more elements Clinical Presentation (PT Evaluation Complexity): evolving Clinical Decision Making (PT Evaluation Complexity): moderate complexity Overall Complexity (PT Evaluation Complexity): moderate complexity PT Charges Row Name 08/30/25902 Time Calculation Start Time 0903 -KG PT Received On 08/30/25 -KG PT Goal Re-Cert Due Date 09/09/25 - Untimed Charges PT Eval/Re-eval Minutes 52 -KG Total Minutes Untimed Charges Total Minutes 52 -KG Total Minutes 52 -KG User Jung (r) = Recorded By, (t) = Taken By, (c) = Cosigned By Initials Name Provider Type KG Flora Galvan, PT Physical Therapist Therapy Charges for Today Code Description Service Date Service Provider Modifiers Qty [id number] HC PT EVAL MOD COMPLEXITY 4 08/30/2025 Flora Galvan, PT GP 1 PT G-Codes Outcome Measure Options: AM-PAC 6 Clicks Basic Mobility (PT) AM-PAC 6 Clicks Score (PT): 11 AM-PAC 6 Clicks Score (OT): 12 PT Discharge Summary Anticipated Discharge Disposition (PT): inpatient rehabilitation facility Ellen Galvan, PT 08/30/2025 * Case Management/Social Work - Félix Azul RN - 08/29/2025 10:36 AM EST Discharge Planning Assessment [facility] Patient Name: Loc Thurman Today's Date: 08/29/2025 Admit Date: 08/27/2025 Plan: Ongoing Discharge Needs Assessment Row Name 08/29/25 1032 Living Environment People in Home alone Current Living Arrangements home Potentially Unsafe Housing Conditions none In the past 12 months has the electric, gas, oil, or water company threatened to shut off services in your home? No Primary Care Provided by self Provides Primary Care For no one Family Caregiver if Needed child(aminta), adult Family Caregiver Names Sarabjit (son) [phone] Able to Return to Prior Arrangements yes Resource/Environmental Concerns Resource/Environmental Concerns none Transportation Concerns none Transportation Needs In the past 12 months, has lack of transportation kept you from medical appointments or from getting medications? no In the past 12 months, has lack of transportation kept you from meetings, work, or from getting things needed for daily living? No Food Insecurity Within the past 12 months, you worried that your food would run out before you got the money to buymore. Never true Within the past 12 months, the food you bought just didn't last and you didn't have money to get more. Never true Transition Planning Patient/Family Anticipates Transition to home with family Patient/Family Anticipated Services at Transition none Transportation Anticipated family or friend will provide Discharge Needs Assessment Readmission Within the Last 30 Days no previous admission in last 30 days Equipment Currently Used at Home cane, straight Concerns to be Addressed denies needs/concerns at this time Do you want help finding or keeping work or a job? I do not need or want help Do you want help with school or training? For example, starting or completing job training or getting a high school diploma, GED or equivalent No Anticipated Changes Related to Illness none Equipment Needed After Discharge none Discharge Plan Row Name 08/29/25 1033 Plan Plan Ongoing Patient/Family in Agreement with Plan yes Plan Comments Spoke with son at bedside. Lives alone in [facility]. Contact is Sarabjit (son) [phone]. Is independent with ADL's. No problems affording Medicare/[employer] [place] or medications. Uses [facility]. No HH. Uses a straight cane. PCP is Lisa Arreola APRN. Plan is ongoing. Patient is sedated and on a vent. CM will continue to follow. Final Discharge Disposition Code 01 - home or self-care Continued Care and Services - Admitted Since 08/27/2025 No active coordination exists. Demographic Summary Row Name 08/29/25 1032 General Information Admission Type inpatient Arrived From hospital Referral Source admission list Reason for Consult discharge planning Preferred Language Irish Contact Information Permission Granted to Share Info With manager case managementappeals manager Information Obtained for manager case managementglobal transportation manager Status Row Name 08/29/25 1032 Functional Status Usual Activity Tolerance good Physical Activity On average, how many days per week do you engage in moderate to strenuous exercise (like a brisk walk)? 0 days On average, how many minutes do you engage in exercise at this level? 0 min Number of minutes of exercise per week 0 Functional Status, IADL Medications independent Meal Preparation independent Housekeeping independent Laundry independent Shopping independent If for any reason you need help with day-to-day activities such as bathing, preparing meals, shopping, managing finances, etc., do you get the help you need? I get all the help I need Mental Status General Appearance WDL WDL Mental Status Summary Recent Changes in Mental Status/Cognitive Functioning no changes Employment/ Employment Status retired Psychosocial No documentation. Abuse/Neglect No documentation. Legal No documentation. Substance Abuse No documentation. Patient Forms No documentation. Félix Azul RN documented in this encounter Plan of Treatment Upcoming Encounters Date Type Department Care Team (Late st Contact Info) Description 10/05/2025 8:30 AM EST Office Visit [facility] [address] [place] [address] Hermes Jaramillo MD [address] [facility] [address] [place] [address] documented as of this encounter Procedures Procedure Name Priority Date/Time Associated Diagnosis Comments FL VIDEO SWALLOW W SPEECH SINGLE-CONTRAST Routine 09/05/2025 9:06 AM EST CBC (NO DIFF) Routine 09/05/2025 4:35 AM EST MAGNESIUM Routine 09/05/2025 4:35 AM EST BASIC METABOLIC PANEL Routine 09/05/2025 4:35 AM EST POTASSIUM Timed 09/04/2025 5:30 PM EST POCT GLUCOSE FINGERSTICK Routine 09/04/2025 4:35 PM EST POCT GLUCOSE FINGERSTICK Routine 09/04/2025 11:54 AM EST POCT GLUCOSE FINGERSTICK Routine 09/04/2025 8:04 AM EST CBC (NO DIFF) Routine 09/04/2025 5:18 AM EST PHOSPHORUS Routine 09/04/2025 5:18 AM EST MAGNESIUM Routine 09/04/2025 5:18 AM EST BASIC METABOLIC PANEL Routine 09/04/2025 5:18 AM EST POCT GLUCOSE FINGERSTICK Routine 09/03/2025 7:51 PM EST POCT GLUCOSE FINGERSTICK Routine 09/03/2025 4:09 PM EST SCAN SLIDE Routine 09/03/2025 1:57 PM EST CBC WITH AUTO DIFFERENTIAL Routine 09/03/2025 1:57 PM EST CBC AND DIFFERENTIAL Routine 09/03/2025 1:57 PM EST POTASSIUM Timed 09/03/2025 1:57 PM EST POCT GLUCOSE FINGERSTICK Routine 09/03/2025 11:47 AM EST POCT GLUCOSE FINGERSTICK Routine 09/03/2025 7:25 AM EST MAGNESIUM Routine 09/03/2025 3:43 AM EST BASIC METABOLIC PANEL Routine 09/03/2025 3:43 AM EST POCT GLUCOSE FINGERSTICK Routine 09/02/2025 8:03 PM EST ECHO COMPLETE W/ DOPPLER, COLOR FLOW AND CONTRAST STAT 09/02/2025 6:08 PM EST POCT GLUCOSE FINGERSTICK Routine 09/02/2025 4:54 PM EST LACTIC ACID, PLASMA STAT 09/02/2025 3 :43 PM EST PROBNP STAT 09/02/2025 2:36 PM EST PROCALCITONIN STAT 09/02/2025 2:36 PM EST CBC WITH AUTO DIFFERENTIAL STAT 09/02/2025 2:36 PM EST MANUAL DIFFERENTIAL STAT 09/02/2025 2 :36 PM EST CBC AND DIFFERENTIAL STAT 09/02/2025 2:36 PM EST POCT GLUCOSE FINGERSTICK Routine 09/02/2025 12:24 PM EST XR CHEST 1 VW STAT 09/02/2025 11:37 AM EST FL VIDEO SWALLOW W SPEECH SINGLE-CONTRAST Routine 09/02/2025 11:32 AM EST POCT GLUCOSE FINGERSTICK Routine 09/02/2025 7:44 AM EST CBC (NO DIFF) Routine 09/02/2025 5:43 AM EST PHOSPHORUS Timed 09/02/2025 5:43 AM EST MAGNESIUM Routine 09/02/2025 5:43 AM EST COMPREHENSIVE METABOLIC PANEL Routine 09/02/2025 5:43 AM EST POCT GLUCOSE FINGERSTICK Routine 09/01/2025 7:57 PM EST POCT GLUCOSE FINGERSTICK Routine 09/01/2025 5:34 PM EST POTASSIUM Timed 09/01/2025 5:05 PM EST PHOSPHORUS Timed 09/01/2025 5:05 PM EST POCT GLUCOSE FINGERSTICK Routine 09/01/2025 11:39 AM EST POCT GLUCOSE FINGERSTICK Routine 09/01/2025 5:31 AM EST PHOSPHORUS Routine 09/01/2025 4:01 AM EST MAGNESIUM Routine 09/01/2025 4:01 AM EST HEPATIC FUNCTION PANEL Routine 4:01 AM EST BASIC METABOLIC PANEL Routine 09/01/2025 4:01 AM EST POCT GLUCOSE FINGERSTICK Routine 08/31/2025 11:55 PM EST POCT GLUCOSE FINGERSTICK Routine 08/31/2025 6:02 PM EST SCANNED - TELEMETRY 08/31/2025 2 :54 PM EST POCT GLUCOSE FINGERSTICK Routine 08/31/2025 1:02 PM EST PSYCH TECH FEES FIBEROPTIC ENDO EVAL SWALLOW Routine 08/31/2025 9:23 AM EST POCT GLUCOSE FINGERSTICK Routine 08/31/2025 5:18 AM EST PROCALCITONIN Add-On 08/31/2025 3:38 AM EST CBC WITH AUTO DIFFERENTIAL Routine 08/31/2025 3:38 AM EST MANUAL DIFFERENTIAL STAT 08/31/2025 3 :38 AM EST CBC AND DIFFERENTIAL Add-On 08/31/2025 3:38 AM EST PHOSPHORUS Routine 08/31/2025 3:38 AM EST MAGNESIUM Routine 08/31/2025 3:38 AM EST LIPASE Routine 08/31/2025 3:38 AM EST COMPREHENSIVE METABOLIC PANEL Routine 08/31/2025 3:38 AM EST POCT GLUCOSE FINGERSTICK Routine 08/30/2025 11:24 PM EST POCT GLUCOSE FINGERSTICK Routine 08/30/2025 5:45 PM EST POCT GLUCOSE FINGERSTICK Routine 08/30/2025 11:31 AM EST SCANNED - TELEMETRY 08/30/2025 9 :26 AM EST POCT GLUCOSE FINGERSTICK Routine 08/30/2025 5:13 AM EST CBC (NO DIFF) Routine 08/30/2025 4:03 AM EST PHOSPHORUS Routine 08/30/2025 4:03 AM EST MAGNESIUM Routine 08/30/2025 4:03 AM EST LIPASE Routine 08/30/2025 4:03 AM EST COMPREHENSIVE METABOLIC PANEL Routine 08/30/2025 4:03 AM EST POCT GLUCOSE FINGERSTICK Routine 08/29/2025 11:05 PM EST POCT GLUCOSE FINGERSTICK Routine 08/29/2025 5:50 PM EST EXTUBATION Routine 08/29/2025 5:25 PM EST BLOOD GAS, ARTERIAL W/CO-OXIMETRY Routine 08/29/2025 5:10 PM EST LACTIC ACID, REFLEX STAT 08/29/2025 4 :18 PM EST LACTIC ACID, REFLEX STAT 08/29/2025 1 :16 PM EST POCT GLUCOSE FINGERSTICK Routine 08/29/2025 11:07 AM EST LACTIC ACID, REFLEX STAT 08/29/2025 9 :42 AM EST POCT GLUCOSE FINGERSTICK Routine 08/29/2025 6:16 AM EST CBC (NO DIFF) Routine 08/29/2025 6:07 AM EST PHOSPHORUS Routine 08/29/2025 6:07 AM EST MAGNESIUM Routine 08/29/2025 6:07 AM EST LACTIC ACID, PLASMA Timed 08/29/2025 6 :07 AM EST BASIC METABOLIC PANEL Routine 08/29/2025 6:07 AM EST XR CHEST 1 VW Routine 08/29/2025 3:58 AM EST BLOOD GAS, ARTERIAL W/CO-OXIMETRY Routine 08/29/2025 3:51 AM EST LACTIC ACID, PLASMA Timed 08/29/2025 1 2:24 AM EST POCT GLUCOSE FINGERSTICK Routine 08/28/2025 10:58 PM EST BLOOD GAS, ARTERIAL W/CO-OXIMETRY Routine 08/28/2025 8:04 PM EST LACTIC ACID, PLASMA Timed 08/28/2025 7 :18 PM EST POCT GLUCOSE FINGERSTICK Routine 08/28/2025 5:56 PM EST BLOOD GAS, ARTERIAL W/CO-OXIMETRY Routine 08/28/2025 2:14 PM EST POCT GLUCOSE FINGERSTICK Routine 08/28/2025 11:09 AM EST XR ABDOMEN KUB STAT 08/28/2025 10:13 AM EST XR CHEST 1 VW STAT 08/28/2025 10:12 AM EST BLOOD GAS, ARTERIAL W/CO-OXIMETRY Routine 08/28/2025 9:58 AM EST CBC WITH AUTO DIFFERENTIAL Routine 08/28/2025 9:55 AM EST MANUAL DIFFERENTIAL STAT 08/28/2025 9 :55 AM EST CBC (NO DIFF) STAT 08/28/2025 9:55 AM EST CBC AND DIFFERENTIAL Add-On 08/28/2025 9:55 AM EST LACTIC ACID, PLASMA STAT 08/28/2025 9 :55 AM EST HEPATIC FUNCTION PANEL Add-On 9:55 AM EST BASIC METABOLIC PANEL STAT 08/28/2025 9:55 AM EST POCT GLUCOSE FINGERSTICK Routine 08/28/2025 9:34 AM EST FL CHOLANGIOGRAM OPERATIVE Routine 08/28/2025 8:46 AM EST POCT SURGERY LABS Routine 08/28/2025 8:4 3 AM EST TISSUE PATHOLOGY EXAM Routine 08/28/2025 8:40 AM EST Cholecystitis NC LAPS SURG CHOLECYSTECTOMY W/CHOLANGIOGRAPHY 08/28/2025 7:40 AM EST BLOOD GAS, ARTERIAL W/CO-OXIMETRY Routine 08/28/2025 7:18 AM EST POCT GLUCOSE FINGERSTICK Routine 08/28/2025 7:07 AM EST BLOOD CULTURE STAT 08/28/2025 6:38 AM EST TYPE AND SCREEN STAT 08/28/2025 6:38 AM EST LACTIC ACID, REFLEX STAT 08/28/2025 6 :13 AM EST ABORH 2ND SPECIMEN VERIFICATION STAT 08/28/2025 6:13 AM EST CBC WITH AUTO DIFFERENTIAL Routine 08/28/2025 6:13 AM EST MANUAL DIFFERENTIAL STAT 08/28/2025 6 :13 AM EST PROTIME-INR Routine 08/28/2025 6:13 AM EST FIBRINOGEN STAT 08/28/2025 6:13 AM EST LIPASE Routine 08/28/2025 6:13 AM EST COMPREHENSIVE METABOLIC PANEL Routine 08/28/2025 6:13 AM EST POCT GLUCOSE FINGERSTICK Routine 08/28/2025 5:58 AM EST XR CHEST 1 VW STAT 08/28/2025 5:35 AM EST HC INSERTION ARTERIAL CATH Routine 08/28/2025 5:20 AM EST Acute pancreatitis, unspecified complication status, unspecified pancreatitis type NC ARTL CATHJ/CANNULJ MNTR/TRANSFUSION SPX PRQ Routine 08/28/2025 5:20 AM EST Acute pancreatitis, unspecified complication status, unspecified pancreatitis type HC CENTRAL LINE INSERTION Routine 08/28/2025 5:19 AM EST Acute pancreatitis, unspecified complication status, unspecified pancreatitis type NC INSJ NON-TUNNELED CENTRAL VENOUS CATH AGE 5 YR/> Routine 08/28/2025 5:19 AM EST Acute pancreatitis, unspecified complication status, unspecified pancreatitis type BLOOD GAS, VENOUS W/CO-OXIMETRY Routine 08/28/2025 2:22 AM EST ECG 12-LEAD STAT 08/28/2025 2:00 AM EST BLOOD CULTURE STAT 08/28/2025 1:45 AM EST LACTIC ACID, REFLEX STAT 08/28/2025 1 :35 AM EST MAGNESIUM Routine 08/28/2025 1:35 AM EST BASIC METABOLIC PANEL Timed 08/28/2025 1:35 AM EST POCT GLUCOSE FINGERSTICK Routine 08/27/2025 11:12 PM EST BLOOD GAS, ARTERIAL W/CO-OXIMETRY Routine 08/27/2025 10:48 PM EST LACTIC ACID, REFLEX STAT 08/27/2025 1 0:34 PM EST HIGH SENSITIVITIY TROPONIN T 1HR Timed 08/27/2025 10:34 PM EST HEPATITIS PANEL, ACUTE Routine 10:34 PM EST MAGNESIUM Add-On 08/27/2025 10:[address] ABDOMEN PELVIS WO CONTRAST STAT 08/27/2025 10:13 PM EST ECG 12-LEAD STAT 08/27/2025 8:15 PM EST IRON PROFILE + FERRITIN Add-On 08/27/20 25 7:43 PM EST PROCALCITONIN STAT 08/27/2025 7:43 PM EST CBC WITH AUTO DIFFERENTIAL STAT 08/27/2025 7:43 PM EST TROPONIN STAT 08/27/2025 7:43 PM EST CBC AND DIFFERENTIAL STAT 08/27/2025 7:43 PM EST LIPASE Routine 08/27/2025 7:43 PM EST LACTIC ACID, PLASMA STAT 08/27/2025 7 :43 PM EST COMPREHENSIVE METABOLIC PANEL Routine 08/27/2025 7:43 PM EST SCANNED - IMAGING 08/27/2025 SCANNED - IMAGING 08/27/2025 SCANNED - IMAGING 08/27/2025 SCANNED - LABS 08/27/2025 documented in this encounter Results * FL Video Swallow With Speech Single Contrast (09/05/2025 9:06 AM EST) Anatomical Region Laterality Modality Head and Neck N/A Radio Fluoroscop y 09/05/2025 9:10 AM EST Impressions 09/05/2025 4:23 PM EST Impression: Fluoroscopy provided for a modified barium swallow. Penetration of barium was seen during swallowing evaluation. Please see speech therapy report for full details and recommendations. Report dictated by: Palmira Benedict PA-c I have personally reviewed this case and agree with the findings above: Electronically Signed: Raji López MD 09/05/2025 4:23 PM EST Workstation ID: [id number] Narrative 09/05/2025 4:23 PM EST FL VIDEO SWALLOW W SPEECH SINGLE-CONTRAST Date of Exam: 09/05/2025 8:49 AM EST Indication: aspiration. Comparison: None available. Technique: The speech pathologist administered food and/or liquid mixed with barium to the patient with cine/video imaging. Imaging assistance was provided to the speech pathologist and an image was saved. Fluoroscopic Time: 1 minute and 42 seconds Number of Images: 6 associated fluoroscopic loops were saved Findings: Penetration of barium was seen during fluoroscopic guided modified barium swallowing series. Please see speech therapy report for full details and recommendations. Procedure Note Raji López MD - 09/05/2025 FL VIDEO SWALLOW W SPEECH SINGLE-CONTRAST Date of Exam: 09/05/2025 8:49 AM EST Indication: aspiration. Comparison: None available. Technique: The speech pathologist administered food and/or liquid mixedwith barium to the patient with cine/video imaging. Imaging assistancewas provided to the speech pathologist and an image was saved. Fluoroscopic Time: 1 minute and 42 seconds Number of Images: 6 associated fluoroscopic loops were saved Findings: Penetration of barium was seen during fluoroscopic guided modified bariumswallowing series. Please see speech therapy report for full details andrecommendations. IMPRESSION: Impression: Fluoroscopy provided for a modified barium swallow. Penetration of bariumwas seen during swallowing evaluation. Please see speech therapy reportfor full details and recommendations. Report dictated by: Palmira Benedict PA-c I have personally reviewed this case and agree with the findings above: Electronically Signed: Raji López MD 09/05/2025 4:23 PM EST Workstation ID: [id number] us Flora Baig MD IMG FLUOROSCOP Y ORDERABLES Final Result * Magnesium (09/05/2025 4:35 AM EST) Pathologist [facility] Magnesium 2.4 1.6 - 2.4 mg/dL 09/05/2025 5:28 AM EST [facility] Blood Venipuncture / Unknown 09/05/2025 4:35 AM EST 09/05/2025 4:56 AM EST Flora Baig MD LAB BLOOD ORDNy ROGERS Final Result [facility]
[address] [place] [address], * (ABNORMAL) CBC (No Diff) (09/05/2025 4:35 AM EST) Pathologist [facility] WBC 11.96(H) 3.40 - 10.80 10*3/mm3 09/05/2025 5:14 AM EST [facility] RBC 3.00(L) 4.14 - 5.80 10*6/mm3 09/05/2025 5:14 AM EST [facility] Hemoglobin 9.1(L) 13.0 - 17.7 g/dL 09/05/2025 5:14 AM [facility] Hematocrit 29.2(L) 37.5 - 51.0 % 09/05/2025 5:14 AM EST [facility] MCV 97.3(H) 79.0 - 97.0 fL 09/05/2025 5:14 AM EST [facility] MCH 30.3 26.6 - 33.0 pg 09/05/2025 5:14 AM [facility] MCHC 31.2(L) 31.5 - 35.7 g/dL 09/05/2025 5:14 AM [facility] RDW 14.9 12.3 - 15.4 % 09/05/2025 5:14 AM EST [facility] RDW-SD 52.1 37.0 - 54.0 fl 09/05/2025 5:14 AM EST [facility] MPV 10.9 6.0 - 12.0 fL 09/05/2025 5:14 AM EST [facility] Platelets 191 140 - 450 10*3/mm3 09/05/2025 5:14 AM EST [facility] Blood Venipuncture / Unknown 09/05/2025 4:35 AM EST 09/05/2025 4:59 AM EST us Flora Baig MD LAB BLOOD ORDNy ROGERS Final Result [facility]
[address] [place] [address], * (ABNORMAL) Basic Metabolic Panel (09/05/2025 4:35 AM EST) Glucose 110(H) 65 - 99 mg/dL 09/05/2025 5:28 AM EST [facility] BUN 18.5 8.0 - 23.0 mg/dL 09/05/2025 5:28 AM [facility] Creatinine 0.72(L) 0.76 - 1.27 mg/dL 09/05/2025 5:28 AM EST [facility] Sodium 146(H) 136 - 145 mmol/L 09/05/2025 5:28 AM EST [facility] Potassium 4.0 3.5 - 5.2 mmol/L 09/05/2025 5:28 AM EST [facility] Chloride 115(H) 98 - 107 mmol/L 09/05/2025 5:28 AM EST [facility] CO2 24.0 22.0 - 29.0 mmol/L 09/05/2025 5:28 AM EST [facility] Calcium 7.7(L) 8.6 - 10.5 mg/dL 09/05/2025 5:28 AM EST [facility] BUN/Creatinine Ratio 25.7(H) 7.0 - 25.0 09/05/2025 5:28 AM EST [facility] Anion Gap 7.0 5.0 - 15.0 mmol/L 09/05/2025 5:28 AM EST [facility] eGFR 89.0 >60.0 mL/min/1.7 3 09/05/2025 5:28 AM EST [facility] Blood Venipuncture / Unknown 09/05/2025 4:35 AM EST 09/05/2025 4:56 AM EST Narrative [facility] - 09/05/2025 5:28 AM EST GFR Categories in Chronic Kidney Disease (CKD) GFR Category GFR (mL/min/1.73) Interpretation G1 90 or greater Normal or high (1) G2 60-89 Mild decrease (1) G3a 45-59 Mild to moderate decrease G3b 30-44 Moderate to severe decrease G4 15-29 Severe decrease G5 14 or less Kidney failure (1)In the absence of evidence of kidney disease, neither GFR category G1 or G2 fulfill the criteria for CKD. eGFR calculation 2020 CKD-EPI creatinine equation, which does not include race as a factor Flora Baig MD LAB BLOOD ORDE RABTRUNG Final Result [facility]
[address] [place] [address], * Potassium (09/04/2025 5:30 PM EST) Potassium 4.3 3.5 - 5.2 mmol/L 09/04/2025 6:36 PM EST [facility] Blood Venipuncture / Unknown 09/04/2025 5:30 PM EST 09/04/2025 5:57 PM EST Flora Baig MD LAB BLOOD ORDE RABLES Final Result [facility]
[address] [place] [address], * POC Glucose Once (09/04/2025 4:35 PM EST) Glucose 122 70 - 130 mg/dL 09/04/2025 4:44 PM EST [facility] Comment:Serial Number: [id number]: [id number] Blood 09/04/2025 4:35 PM EST 09/04/2025 4:44 PM EST Flora Baig MD POINT OF CARE TEST ORDERABLES Final Result Performing Organization Address City/[facility]/ZIP Co de Phone Number [facility]
[address] [place] [address], * POC Glucose Once (09/04/2025 11:54 AM EST) Glucose 117 70 - 130 mg/dL 09/04/2025 11:57 AM EST [facility] Comment:Serial Number: [id number]: [id number] Blood 09/04/2025 11:5 4 AM EST 09/04/2025 11:57 AM EST us Flora Baig MD POINT OF CARE TEST ORDERABLES Final Result [facility]
[address] [place] [address], * POC Glucose Once (09/04/2025 8:04 AM EST) Glucose 118 70 - 130 mg/dL 09/04/2025 8:09 AM EST [facility] Comment:Serial Number: [id number]: [id number] Blood 09/04/2025 8:04 AM EST 09/04/2025 8:09 AM EST Flora Baig MD POINT OF CARE TEST ORDERABLES Final Result Performing Organization Address City/[facility]/ZIP Co de Phone Number [facility]
[address] [place] [address], * (ABNORMAL) Phosphorus (09/04/2025 5:18 AM EST) Phosphorus 2.4(L) 2.5 - 4.5 mg/dL 09/04/2025 6:13 AM EST [facility] Blood Venipuncture / Unknown 09/04/2025 5:18 AM EST 09/04/2025 5:51 AM EST Flora Baig MD LAB BLOOD ORDE RABLES Final Result Performing Organization Address [facility] Co de Phone Number [facility]
[address] [place] [address], * (ABNORMAL) CBC (No Diff) (09/04/2025 5:18 AM EST) WBC 12.52(H) 3.40 - 10.80 10*3/mm3 09/04/2025 5:55 AM [facility] RBC 3.27(L) 4.14 - 5.80 10*6/mm3 09/04/2025 5:55 AM [facility] Hemoglobin 9.5(L) 13.0 - 17.7 g/dL 09/04/2025 5:55 AM [facility] Hematocrit 30.9(L) 37.5 - 51.0 % 09/04/2025 5:55 AM EST [facility] MCV 94.5 79.0 - 97.0 fL 09/04/2025 5:55 AM [facility] MCH 29.1 26.6 - 33.0 pg 09/04/2025 5:55 AM EST [facility] MCHC 30.7(L) 31.5 - 35.7 g/dL 09/04/2025 5:55 AM EST [facility] RDW 14.6 12.3 - 15.4 % 09/04/2025 5:55 AM EST [facility] RDW-SD 50.4 37.0 - 54.0 fl 09/04/2025 5:55 AM EST [facility] MPV 11.0 6.0 - 12.0 fL 09/04/2025 5:55 AM EST [facility] Platelets 162 140 - 450 10*3/mm3 09/04/2025 5:55 AM EST [facility] Blood Venipuncture / Unknown 09/04/2025 5:18 AM EST 09/04/2025 5:52 AM EST Flora Baig MD LAB BLOOD ORDE KEN Final Result [facility]
[address] [place] [address], * (ABNORMAL) Basic Metabolic Panel (09/04/2025 5:18 AM EST) Glucose 122(H) 65 - 99 mg/dL 09/04/2025 6:13 AM [facility] BUN 21.0 8.0 - 23.0 mg/dL 09/04/2025 6:13 AM [facility] Creatinine 0.71(L) 0.76 - 1.27 mg/dL 09/04/2025 6:13 AM [facility] Sodium 145 136 - 145 mmol/L 09/04/2025 6:13 AM EST [facility] Potassium 3.5 3.5 - 5.2 mmol/L 09/04/2025 6:13 AM [facility] Chloride 113(H) 98 - 107 mmol/L 09/04/2025 6:13 AM [facility] CO2 25.0 22.0 - 29.0 mmol/L 09/04/2025 6:13 AM [facility] Calcium 7.9(L) 8.6 - 10.5 mg/dL 09/04/2025 6:13 AM EST [facility] BUN/Creatinine Ratio 29.6(H) 7.0 - 25.0 09/04/2025 6:13 AM EST [facility] Anion Gap 7.0 5.0 - 15.0 mmol/L 09/04/2025 6:13 AM EST [facility] eGFR 89.4 >60.0 mL/min/1.7 3 09/04/2025 6:13 AM EST [facility] Blood Venipuncture / Unknown 09/04/2025 5:18 AM EST 09/04/2025 5:51 AM EST Narrative [facility] - 09/04/2025 6:13 AM EST GFR Categories in Chronic Kidney Disease (CKD) GFR Category GFR (mL/min/1.73) Interpretation G1 90 or greater Normal or high (1) G2 60-89 Mild decrease (1) G3a 45-59 Mild to moderate decrease G3b 30-44 Moderate to severe decrease G4 15-29 Severe decrease G5 14 or less Kidney failure (1)In the absence of evidence of kidney disease, neither GFR category G1 or G2 fulfill the criteria for CKD. eGFR calculation 2020 CKD-EPI creatinine equation, which does not include race as a factor Flora Baig MD LAB BLOOD ORDE KEN Final Result [facility]
[address] [place] [address], * Magnesium (09/04/2025 5:18 AM EST) Magnesium 2.3 1.6 - 2.4 mg/dL 09/04/2025 6:13 AM EST [facility] Blood Venipuncture / Unknown 09/04/2025 5:18 AM EST 09/04/2025 5:51 AM EST Brian Hughes MD LAB BLOOD ORDERABLES Final R esult [facility]
[address] [place] [address], * (ABNORMAL) POC Glucose Once (09/03/2025 7:51 PM EST) Glucose 141(H) 70 - 130 mg/dL 09/03/2025 7:56 PM EST [facility] Comment:Serial Number: [id number]: [id number] Blood 09/03/2025 7:51 PM EST 09/03/2025 7:56 PM EST Flora Baig MD POINT OF CARE TEST ORDERABLES Final Result Performing Organization Address [facility]/ZIP Co de Phone Number [facility]
[address] [place] [address], * (ABNORMAL) POC Glucose Once (09/03/2025 4:09 PM EST) Glucose 155(H) 70 - 130 mg/dL 09/03/2025 4:11 PM EST [facility] Comment:Serial Number: [id number]: [id number] Blood 09/03/2025 4:09 PM EST 09/03/2025 4:11 PM EST Flora Baig MD POINT OF CARE TEST ORDERABLES Final Result Performing Organization Address City/[facility]/ZIP Co de Phone Number [facility]
[address] [place] [address], * Scan Slide (09/03/2025 1:57 PM EST) RBC Morphology Normal Normal 09/03/2025 3:20 PM EST [facility] WBC Morphology Normal Normal 09/03/2025 3:20 PM EST [facility] Platelet Estimate Adequate Normal 09/03/2025 3:20 PM EST [facility] Blood Venipuncture / Unknown 09/03/2025 1:57 PM EST 09/03/2025 2:09 PM EST Lizbeth Myers APRN LAB BLOOD ORDERABLES Final Result [facility]
[address] [place] [address], * Potassium (09/03/2025 1:57 PM EST) Pathologist [facility] Potassium 4.4 3.5 - 5.2 mmol/L 09/03/2025 2:27 PM EST [facility] Blood Venipuncture / Unknown 09/03/2025 1:57 PM EST 09/03/2025 2:09 PM EST Flora Baig MD LAB BLOOD ORDE RABLES Final Result Performing Organization Address City/[facility]/ZIP Co de Phone Number [facility]
[address] [place] [address], * (ABNORMAL) CBC Auto Differential (09/03/2025 1:57 PM EST) Pathologist [facility] WBC 10.70 3.40 - 10.80 10*3/mm3 09/03/2025 3:20 PM EST [facility] RBC 3.19(L) 4.14 - 5.80 10*6/mm3 09/03/2025 3:20 PM EST [facility] Hemoglobin 9.3(L) 13.0 - 17.7 g/dL 09/03/2025 3:20 PM EST [facility] Hematocrit 30.4(L) 37.5 - 51.0 % 09/03/2025 3:20 PM EST [facility] MCV 95.3 79.0 - 97.0 fL 09/03/2025 3:20 PM EST [facility] MCH 29.2 26.6 - 33.0 pg 09/03/2025 3:20 PM [facility] MCHC 30.6(L) 31.5 - 35.7 g/dL 09/03/2025 3:20 PM [facility] RDW 14.6 12.3 - 15.4 % 09/03/2025 3:20 PM [facility] RDW-SD 51.0 37.0 - 54.0 fl 09/03/2025 3:20 PM [facility] MPV 10.9 6.0 - 12.0 fL 09/03/2025 3:20 PM [facility] Platelets 140 140 - 450 10*3/mm3 09/03/2025 3:20 PM [facility] Neutrophil % 68.1 42.7 - 76.0 % 09/03/2025 3:20 PM [facility] Lymphocyte % 18.1(L) 19.6 - 45.3 % 09/03/2025 3:20 PM [facility] Monocyte % 7.6 5.0 - 12.0 % 09/03/2025 3:20 PM [facility] Eosinophil % 1.3 0.3 - 6.2 % 09/03/2025 3:20 PM [facility] Basophil % 0.3 0.0 - 1.5 % 09/03/2025 3:20 PM [facility] Immature Grans % 4.6(H) 0.0 - 0.5 % 09/03/2025 3:20 PM [facility] Neutrophils, Absolute 7.29(H) 1.70 - 7.00 10*3/mm3 09/03/2025 3:20 PM [facility] Lymphocytes, Absolute 1.94 0.70 - 3.10 10*3/mm3 09/03/2025 3:20 PM [facility] Monocytes, Absolute 0.81 0.10 - 0.90 10*3/mm3 09/03/2025 3:20 PM [facility] Eosinophils, Absolute 0.14 0.00 - 0.40 10*3/mm3 09/03/2025 3:20 PM EST [facility] Basophils, Absolute 0.03 0.00 - 0.20 10*3/mm3 09/03/2025 3:20 PM EST [facility] Immature Grans, Absolute 0.49(H) 0.00 - 0.05 10*3/mm3 09/03/2025 3:20 PM EST [facility] nRBC 0.4(H) 0.0 - 0.2 /100 WBC 09/03/2025 3:20 PM EST [facility] Blood Venipuncture / Unknown 09/03/2025 1:57 PM EST 09/03/2025 2:09 PM EST Narrative [facility] - 09/03/2025 3:20 PM EST Appended report. These results have been appended to a previously verified report. Lizbeth Myers APRN LAB BLOOD ORDERABLES Final Result [facility]
[address] [place] [address], * POC Glucose Once (09/03/2025 11:47 AM EST) Glucose 125 70 - 130 mg/dL 09/03/2025 11:49 AM EST [facility] Comment:Serial Number: [id number]: [id number] Blood 09/03/2025 11:4 7 AM EST 09/03/2025 11:49 AM EST Flora Baig MD POINT OF CARE TEST ORDERABLES Final Result Performing Organization Address City/[facility]/ZIP Co de Phone Number [facility]
[address] [place] [address], * POC Glucose Once (09/03/2025 7:25 AM EST) Glucose 92 70 - 130 mg/dL 09/03/2025 7:27 AM EST [facility] Comment:Serial Number: [id number]: [id number] Blood 09/03/2025 7:25 AM EST 09/03/2025 7:27 AM EST Flora Baig MD POINT OF CARE TEST ORDERABLES Final Result [facility]
[address] [place] [address], * (ABNORMAL) Basic Metabolic Panel (09/03/2025 3:43 AM EST) Glucose 108(H) 65 - 99 mg/dL 09/03/2025 4:37 AM EST [facility] BUN 23.0 8.0 - 23.0 mg/dL 09/03/2025 4:37 AM [facility] Creatinine 0.76 0.76 - 1.27 mg/dL 09/03/2025 4:37 AM EST [facility] Sodium 149(H) 136 - 145 mmol/L 09/03/2025 4:37 AM [facility] Potassium 3.5 3.5 - 5.2 mmol/L 09/03/2025 4:37 AM EST [facility] Comment:Specimen hemolyzed. Result may be falsely elevated. Chloride 114(H) 98 - 107 mmol/L 09/03/2025 4:37 AM EST [facility] CO2 23.6 22.0 - 29.0 mmol/L 09/03/2025 4:37 AM EST [facility] Calcium 7.8(L) 8.6 - 10.5 mg/dL 09/03/2025 4:37 AM [facility] BUN/Creatinine Ratio 30.3(H) 7.0 - 25.0 09/03/2025 4:37 AM [facility] Anion Gap 11.4 5.0 - 15.0 mmol/L 09/03/2025 4:37 AM EST [facility] eGFR 87.5 >60.0 mL/min/1.7 3 09/03/2025 4:37 AM EST [facility] Blood Venipuncture / Unknown 09/03/2025 3:43 AM EST 09/03/2025 4:08 AM EST Narrative [facility] - 09/03/2025 4:37 AM EST GFR Categories in Chronic Kidney Disease (CKD) GFR Category GFR (mL/min/1.73) Interpretation G1 90 or greater Normal or high (1) G2 60-89 Mild decrease (1) G3a 45-59 Mild to moderate decrease G3b 30-44 Moderate to severe decrease G4 15-29 Severe decrease G5 14 or less Kidney failure (1)In the absence of evidence of kidney disease, neither GFR category G1 or G2 fulfill the criteria for CKD. eGFR calculation 2020 CKD-EPI creatinine equation, which does not include race as a factor Lizbeth Myers APRN LAB BLOOD ORDERABLES Final Result Performing Organization Address City/[facility]/ZIP Co de Phone Number [facility]
[address] [place] [address], * Magnesium (09/03/2025 3:43 AM EST) Magnesium 2.2 1.6 - 2.4 mg/dL 09/03/2025 4:37 AM EST [facility] Blood Venipuncture / Unknown 09/03/2025 3:43 AM EST 09/03/2025 4:08 AM EST Brian Hughes MD LAB BLOOD ORDERABLES Final R esult Performing Organization Address City/[facility]/ZIP Co de Phone Number [facility]
[address] [place] [address], * (ABNORMAL) POC Glucose Once (09/02/2025 8:03 PM EST) Glucose 141(H) 70 - 130 mg/dL 09/02/2025 8:05 PM EST [facility] Comment:Serial Number: [id number]: [id number] Blood 09/02/2025 8:03 PM EST 09/02/2025 8:05 PM EST us Flora Baig MD POINT OF CARE TEST ORDERABLES Final Result [facility]
[address] [place] [address], * ECHO COMPLETE W/ DOPPLER, COLOR FLOW AND CONTRAST (09/02/2025 6:08 PM EST) EF(MOD-bp) 67.2 % LVIDd 3.1 cm LVIDs 2.30 cm IVSd 1.30 cm LVPWd 1.30 cm FS 25.8 % IVS/LVPW 1.00 cm ESV(cubed) 12.2 ml LV Sys Vol (BSA corrected) 13.4 cm2 EDV(cubed) 29.8 ml LV Babb Vol (BSA corrected) 47.4 cm2 LV mass(C)d 129.9 grams LVOT area 3.8 cm2 LVOT diam 2.20 cm EDV(MOD-sp2) 102.0 ml EDV(MOD-sp4) 99.3 ml ESV(MOD-sp2) 39.1 ml ESV(MOD-sp4) 28.0 ml SV(MOD-sp2) 62.9 ml SV(MOD-sp4) 71.3 ml SVi(MOD-SP2) 30.0 ml/m2 SVi(MOD-SP4) 34.0 ml/m2 SVi (LVOT) 44.1 ml/m2 EF(MOD-sp2) 61.7 % EF(MOD-sp4) 71.8 % MV E max moni 80.7 cm/sec MV A max moni 125.0 cm/sec MV dec time 0.20 sec MV E/A 0.65 IVRT 79.0 ms LA ESV Index (BP) 14.2 ml/m2 Med Peak E' Moni 7.9 cm/sec Lat Peak E' Moni 8.3 cm/sec TR max moni 283.0 cm/sec Avg E/e' ratio 9.96 SV(LVOT) 92.4 ml RV Base 3.2 cm RV Mid 3.0 cm RV Length 7.2 cm TAPSE (>1.6) 2.8 cm RV S' 21.3 cm/sec LA dimension (2D) 3.3 cm LV V1 max 131.0 cm/sec LV V1 max PG 6.9 mmHg LV V1 mean PG 4.0 mmHg LV V1 VTI 24.3 cm Ao pk moni 158.0 cm/sec Ao max PG 10.0 mmHg Ao mean PG 5.0 mmHg Ao V2 VTI 27.9 cm [place](I,D) 3.3 cm2 Dimensionless Index 0.87 (DI) MV max PG 5.3 mmHg MV mean PG 3.0 mmHg MV V2 VTI 22.7 cm MV P1/2t 71.6 msec MVA(P1/2t) 3.1 cm2 MVA(VTI) 4.1 cm2 MV dec slope 413.0 cm/sec2 TR max PG 32.1 mmHg Ao root diam 3.9 cm RVSP(TR) 35 mmHg RAP systole 3 mmHg Ao root area (BSA corrected) 1.9 cm2 Ascending aorta 3.6 cm BH CV VAS BP RIGHT ARM 146/62 mmHg Anatomical Region Laterality Modality Ultrasound Narrative 09/03/2025 9:24 AM EST Left ventricular systolic function is normal. Calculated left ventricular EF = 67.2% Left ventricular ejection fraction appears to be 66 - 70%. Left ventricular wall thickness is consistent with mild concentric hypertrophy. Left ventricular diastolic function is consistent with (grade I) impaired relaxation. There is moderate calcification of the aortic valve. Estimated right ventricular systolic pressure from tricuspid regurgitation is mildly elevated (35-45 mmHg). Calculated right ventricular systolic pressure from tricuspid regurgitation is 35 mmHg. There is a trivial pericardial effusion. Left Ventricle Left ventricular systolic function is normal. Calculated left ventricular EF = 67.2% Left ventricular ejection fraction appears to be 66 - 70%. Normal left ventricular cavity size noted. Left ventricular wall thickness is consistent with mild concentric hypertrophy. All left ventricular wall segments contract normally. Left ventricular diastolic function is consistent with (grade I) impaired relaxation. Right Ventricle Normal right ventricular cavity size and systolic function noted. Left Atrium Normal left atrial size and volume noted. Right Atrium Normal right atrial cavity size noted. The inferior vena cava is normally sized. Normal IVC inspiratory collapse of greater than 50% noted. Mitral Valve Mild mitral annular calcification is present. Trace mitral valve regurgitation is present. No significant mitral valve stenosis is present. Tricuspid Valve The tricuspid valve is structurally normal with no significant stenosis present. Mild tricuspid valve regurgitation is present. Estimated right ventricular systolic pressure from tricuspid regurgitation is mildly elevated (35-45 mmHg). Calculated right ventricular systolic pressure from tricuspid regurgitation is 35 mmHg. Aortic Valve No aortic valve regurgitation or stenosis is present. The aortic valve is abnormal in structure. There is moderate calcification of the aortic valve. There is thickening of the aortic valve. The aortic valve was poorly visualized but appears trileaflet. Pulmonic Valve The pulmonic valve is not well visualized. The pulmonic valve is grossly normal in structure. No pulmonic valve regurgitation or significant stenosis is present. Pericardium There is a trivial pericardial effusion. There is evidence of a fat pad present. Greater Vessels No dilation of the aortic root is present. No dilation of the ascending aorta is present. Study Quality The study is technically adequate for diagnosis. The quality of the study is limited due to heavy breathing with poor acoustic windows in the subcostal window and suprasternal window. Enhancement Agent Details Verbal consent was obtained from the patient to use Lumason image enhancer in order to optimize the study. The use of Lumason was indicated to improve delineation of the left ventricular endocardial border. 5 mL of Lumason was manually activated. A total of 4 mL of the activated Lumason was administered and the remaining contrast was wasted and discarded. No adverse reaction to image enhancer was noted. Lizbeth Myers APRN CV ECHO ORDERABLES Final Re sult * POC Glucose Once (09/02/2025 4:54 PM EST) Glucose 123 70 - 130 mg/dL 09/02/2025 4:56 PM EST [facility] Comment:Serial Number: [id number]: [id number] Blood 09/02/2025 4:54 PM EST 09/02/2025 4:56 PM EST Flora Baig MD POINT OF CARE TEST ORDERABLES Final Result Performing Organization Address [facility]/ZIP Co de Phone Number [facility]
[address] [place] [address], * Lactic Acid, Plasma (09/02/2025 3:43 PM EST) Pathologist [facility] Lactate 1.5 0.5 - 2.0 mmol/L 09/02/2025 4:30 PM EST [facility] Comment:Falsely depressed re sults may occur on samples drawn from patients receiving N-Acetylcysteine (NAC) or Metamizole. Blood Venipuncture / Unknown 09/02/2025 3:43 PM EST 09/02/2025 3:53 PM EST Lizbeth Louis PICKLE [employer]ER LAB BLOOD ORDERABLES Final Result Performing Organization Address [facility] Co de Phone Number [facility]
[address] [place] [address], * (ABNORMAL) Manual Differential (09/02/2025 2:36 PM EST) Pathologist [facility] Neutrophil % 83.0(H) 42.7 - 76.0 % 09/02/2025 4:01 PM EST [facility] Lymphocyte % 5.0(L) 19.6 - 45.3 % 09/02/2025 4:01 PM [facility] Monocyte % 3.0(L) 5.0 - 12.0 % 09/02/2025 4:01 PM EST [facility] Eosinophil % 0.0(L) 0.3 - 6.2 % 09/02/2025 4:01 PM EST [facility] Basophil % 0.0 0.0 - 1.5 % 09/02/2025 4:01 PM EST [facility] Bands % 4.0 0.0 - 5.0 % 09/02/2025 4:01 PM EST [facility] Metamyelocyte % 1.0(H) 0.0 - 0.0 % 09/02/2025 4:01 PM [facility] Myelocyte % 1.0(H) 0.0 - 0.0 % 09/02/2025 4:01 PM [facility] Atypical Lymphocyte % 3.0 0.0 - 5.0 % 09/02/2025 4:01 PM [facility] Neutrophils Absolute 9.65(H) 1.70 - 7.00 10*3/mm3 09/02/2025 4:01 PM EST [facility] Lymphocytes Absolute 0.89 0.70 - 3.10 10*3/mm3 09/02/2025 4:01 PM [facility] Monocytes Absolute 0.33 0.10 - 0.90 10*3/mm3 09/02/2025 4:01 PM [facility] Eosinophils Absolute 0.00 0.00 - 0.40 10*3/mm3 09/02/2025 4:01 PM [facility] Basophils Absolute 0.00 0.00 - 0.20 10*3/mm3 09/02/2025 4:01 PM [facility] RBC Morphology Normal Normal 09/02/2025 4:01 PM [facility] WBC Morphology Normal Normal 09/02/2025 4:01 PM [facility] Platelet Morphology Normal Normal 09/02/2025 4:01 PM [facility] Blood Venipuncture / Unknown 09/02/2025 2:36 PM EST 09/02/2025 2:47 PM EST us Lizbeth Myers [employer] LAB BLOOD ORDERABLES Final Result [facility]
[address] [place] [address], * (ABNORMAL) CBC Auto Differential (09/02/2025 2:36 PM EST) WBC 11.09(H) 3.40 - 10.80 10*3/mm3 09/02/2025 4:01 PM [facility] RBC 3.34(L) 4.14 - 5.80 10*6/mm3 09/02/2025 4:01 PM [facility] Hemoglobin 9.8(L) 13.0 - 17.7 g/dL 09/02/2025 4:01 PM [facility] Hematocrit 31.2(L) 37.5 - 51.0 % 09/02/2025 4:01 PM [facility] MCV 93.4 79.0 - 97.0 fL 09/02/2025 4:01 PM [facility] MCH 29.3 26.6 - 33.0 pg 09/02/2025 4:01 PM [facility] MCHC 31.4(L) 31.5 - 35.7 g/dL 09/02/2025 4:01 PM [facility] RDW 14.5 12.3 - 15.4 % 09/02/2025 4:01 PM [facility] RDW-SD 49.8 37.0 - 54.0 fl 09/02/2025 4:01 PM [facility] MPV 11.0 6.0 - 12.0 fL 09/02/2025 4:01 PM [facility] Platelets 102(L) 140 - 450 10*3/mm3 09/02/2025 4:01 PM [facility] Blood Venipuncture / Unknown 09/02/2025 2:36 PM EST 09/02/2025 2:47 PM EST [facility] - 09/02/2025 4:01 PM EST The previously reported component NRBC is no longer being reported. Previous result was 0.5 /100 WBC (Reference Range: 0.0-0.2 /100 WBC) on 09/02/2025 at 1459 EST. us Lizbeth Myers APRN LAB BLOOD ORDERABLES Final Result [facility]
[address] [place] [address], [place] [phone] * (ABNORMAL) Procalcitonin (09/02/2025 2:36 PM EST) Procalcitonin 4.27(H) 0.00 - 0.25 ng/mL 09/02/2025 3:24 PM EST [facility] Blood Venipuncture / Unknown 09/02/2025 2:36 PM EST 09/02/2025 2:47 PM EST Narrative [facility] - 09/02/2025 3:24 PM EST As a Marker for Sepsis (Non-Neonates): 1. <0.5 ng/mL represents a low risk of severe sepsis and/or septic shock. 2. >2 ng/mL represents a high risk of severe sepsis and/or septic shock. As a Marker for Lower Respiratory Tract Infections that require antibiotic therapy: PCT on Admission Antibiotic Therapy 6-12 Hrs later >0.5 Strongly Recommended >0.25 - <0.5 Recommended 0.1 - 0.25 Discouraged Remeasure/reassess PCT <0.1 Strongly Discouraged Remeasure/reassess PCT As 28 day mortality risk marker: Change in Procalcitonin Result (>80% or <=80%) if Day 0 (or Day 1) and Day 4 values are available. Refer to http://www.narpwl-axa-jfjttnqawd.com Change in PCT <=80% A decrease of PCT levels below or equal to 80% defines a positive change in PCT test result representing a higher risk for 28-day all-cause mortality of patients diagnosed with severe sepsis for septic shock. Change in PCT >80% A decrease of PCT levels of more than 80% defines a negative change in PCT result representing a lower risk for 28-day all-cause mortality of patients diagnosed with severe sepsis or septic shock. us Lizbeth Myers APRN LAB BLOOD ORDERABLES Final Result [facility]
[address] [place] [address], * (ABNORMAL) proBNP (09/02/2025 2:36 PM EST) proBNP 9,267.0(H) 0.0 - 1,800.0 pg/mL 09/02/2025 3:24 PM EST [facility] Blood Venipuncture / Unknown 09/02/2025 2:36 PM EST 09/02/2025 2:47 PM EST Narrative [facility] - 09/02/2025 3:24 PM EST This assay is used as an aid in the diagnosis of individuals suspected of having heart failure. It can be used as an aid in the diagnosis of acute decompensated heart failure (ADHF) in patients presenting with signs and symptoms of ADHF to the emergency department (ED). In addition, NT-proBNP of <300 pg/mL indicates ADHF is not likely. Age Range Result Interpretation NT-proBNP Concentration (pg/mL: <50 Positive >450 Padron 300-450 Negative <300 50-75 Positive >900 Padron 300-900 Negative <300 >75 Positive >1800 Padron 300-1800 Negative <300 Lizbeth Myers APRN LAB BLOOD ORDERABLES Final Result Performing Organization Address City/[facility]/ZIP Co de Phone Number [facility]
[address] [place] [address], * POC Glucose Once (09/02/2025 12:24 PM EST) Glucose 124 70 - 130 mg/dL 09/02/2025 12:27 PM EST [facility] Comment:Serial Number: [id number]: [id number] Blood 09/02/2025 12:2 4 PM EST 09/02/2025 12:27 PM EST Flora Baig MD POINT OF CARE TEST ORDERABLES Final Result [facility]
[address] [place] [address], * XR Chest 1 View (09/02/2025 11:37 AM EST) Anatomical Region Laterality Modality Body N/A Radiographic Radha ging 09/02/2025 12:0 0 PM EST Impressions 09/02/2025 12:03 PM EST Impression: Increased bibasilar airspace opacities, which may be due to atelectasis, pulmonary edema, or possibly pneumonia. Known left lower lobe mass is not well visualized. Electronically Signed: Loraine Bryson MD 09/02/2025 12:03 PM EST Workstation ID: [id number] Narrative 09/02/2025 12:03 PM EST XR CHEST 1 VW Date of Exam: 09/02/2025 11:37 AM EST Indication: Shortness of breath. Comparison: [facility] chest x-ray 08/29/2025, 08/28/2025; CT abdomen pelvis 08/27/2025 Findings: Lower chest is not entirely included. Known left lower lobe mass seen on 08/27/2025 CT abdomen/pelvis is not well visualized. Increased bibasilar airspace opacities. No pneumothorax is seen. Cardiac silhouette remains enlarged. Endotracheal tube has been removed. Tip of the right internal jugular central venous catheter is stable. Procedure Note Loraine Bryson MD - 09/02/2025 XR CHEST 1 VW Date of Exam: 09/02/2025 11:37 AM EST Indication: Shortness of breath. Comparison: [facility] chest x-ray 08/29/2025, 08/28/2025; CT abdomen [id number] Findings: Lower chest is not entirely included. Known left lower lobe mass seen on 08/27/2025 CT abdomen/pelvis is not wellvisualized. Increased bibasilar airspace opacities. No pneumothorax isseen. Cardiac silhouette remains enlarged. Endotracheal tube has been removed. Tip of the right internal jugularcentral venous catheter is stable. IMPRESSION: Impression: Increased bibasilar airspace opacities, which may be due to atelectasis,pulmonary edema, or possibly pneumonia. Known left lower lobe mass is not well visualized. Electronically Signed: Loraine Bryson MD 09/02/2025 12:03 PM EST Workstation ID: [id number] us Lizbeth Myers P[employer]LE PUMPER IMG DIAGNOSTIC IMAGING VIPIN ROGERS Final Result * FL Video Swallow With Speech Single Contrast (09/02/2025 11:32 AM EST) Anatomical Region Laterality Modality Head and Neck N/A Radio Fluoroscop y 09/02/2025 12:1 2 PM EST Impressions 09/02/2025 12:12 PM EST Impression: Fluoroscopy provided for speech therapy evaluation of swallowing. Penetration with thin, nectar and honey thickness. There is questionable minimal aspiration with thin barium as well. Please see speech therapy report for full detail. Electronically Signed: Delbert Laughlin MD 09/02/2025 12:12 PM EST Workstation ID: [id number] Narrative 09/02/2025 12:12 PM EST FL VIDEO SWALLOW W SPEECH SINGLE-CONTRAST Date of Exam: 09/02/2025 11:05 AM EST Indication: aspiration. Comparison: None available. Technique: The speech pathologist administered food and/or liquid mixed with barium to the patient with cine/video imaging. Imaging assistance was provided to the speech pathologist and an image was saved. Fluoroscopic Time: 40 seconds Number of Images: 8 series Findings: Penetration with thin, nectar and honey thickness. There is questionable minimal aspiration with thin barium as well. Procedure Note Delbert Laughlin MD - 09/02/2025 FL VIDEO SWALLOW W SPEECH SINGLE-CONTRAST Date of Exam: 09/02/2025 11:05 AM EST Indication: aspiration. Comparison: None available. Technique: The speech pathologist administered food and/or liquid mixedwith barium to the patient with cine/video imaging. Imaging assistancewas provided to the speech pathologist and an image was saved. Fluoroscopic Time: 40 seconds Number of Images: 8 series Findings: Penetration with thin, nectar and honey thickness. There is questionableminimal aspiration with thin barium as well. IMPRESSION: Impression: Fluoroscopy provided for speech therapy evaluation of swallowing.Penetration with thin, nectar and honey thickness. There is questionableminimal aspiration with thin barium as well. Please see speech therapyreport for full detail. Electronically Signed: Delbert Laughlin MD 09/02/2025 12:12 PM EST Workstation ID: [id number] Flora Baig MD IMG FLUOROSCOP Y ORDERABLES Final Result * POC Glucose Once (09/02/2025 7:44 AM EST) Glucose 97 70 - 130 mg/dL 09/02/2025 8:08 AM EST [facility] Comment:Serial Number: [id number]: [id number] Blood 09/02/2025 7:44 AM EST 09/02/2025 8:08 AM EST Flora Baig MD POINT OF CARE TEST ORDERABLES Final Result Performing Organization Address City/[facility] Co de Phone Number [facility]
[address] [place] [address], * Phosphorus (09/02/2025 5:43 AM EST) Pathologist [facility] Phosphorus 2.5 2.5 - 4.5 mg/dL 09/02/2025 6:50 AM EST [facility] Blood Venipuncture / Unknown 09/02/2025 5:43 AM EST 09/02/2025 6:09 AM EST Flora Baig MD LAB BLOOD ORDE RABLES Final Result [facility]
[address] [place] [address], * (ABNORMAL) Comprehensive Metabolic Panel (09/02/2025 5:43 AM EST) Glucose 99 65 - 99 mg/dL 09/02/2025 6:55 AM EST [facility] BUN 22.7 8.0 - 23.0 mg/dL 09/02/2025 6:55 AM EST [facility] Creatinine 0.69(L) 0.76 - 1.27 mg/dL 09/02/2025 6:55 AM [facility] Sodium 148(H) 136 - 145 mmol/L 09/02/2025 6:55 AM [facility] Potassium 3.7 3.5 - 5.2 mmol/L 09/02/2025 6:55 AM [facility] Chloride 116(H) 98 - 107 mmol/L 09/02/2025 6:55 AM [facility] CO2 22.5 22.0 - 29.0 mmol/L 09/02/2025 6:55 AM [facility] Calcium 8.2(L) 8.6 - 10.5 mg/dL 09/02/2025 6:55 AM [facility] Total Protein 5.5(L) 6.0 - 8.5 g/dL 09/02/2025 6:55 AM [facility] Albumin 3.1(L) 3.5 - 5.2 g/dL 09/02/2025 6:55 AM [facility] ALT (SGPT) 81(H) 1 - 41 U/L 09/02/2025 6:55 AM [facility] AST (SGOT) 42(H) 1 - 40 U/L 09/02/2025 6:55 AM [facility] Alkaline Phosphatase 171(H) 39 - 117 U/L 09/02/2025 6:55 AM [facility] Total Bilirubin 0.8 0.0 - 1.2 mg/dL 09/02/2025 6:55 AM [facility] Globulin 2.4 gm/dL 09/02/2025 6:55 AM [facility] Comment:Calculated Result A/G Ratio 1.3 g/dL 09/02/2025 6:55 AM [facility] BUN/Creatinine Ratio 32.9(H) 7.0 - 25.0 09/02/2025 6:55 AM [facility] Anion Gap 9.5 5.0 - 15.0 mmol/L 09/02/2025 6:55 AM EST [facility] eGFR 90.1 >60.0 mL/min/1.7 3 09/02/2025 6:55 AM EST [facility] Blood Venipuncture / Unknown 09/02/2025 5:43 AM EST 09/02/2025 6:09 AM EST [facility] - 09/02/2025 6:55 AM EST GFR Categories in Chronic Kidney Disease (CKD) GFR Category GFR (mL/min/1.73) Interpretation G1 90 or greater Normal or high (1) G2 60-89 Mild decrease (1) G3a 45-59 Mild to moderate decrease G3b 30-44 Moderate to severe decrease G4 15-29 Severe decrease G5 14 or less Kidney failure (1)In the absence of evidence of kidney disease, neither GFR category G1 or G2 fulfill the criteria for CKD. eGFR calculation 2020 CKD-EPI creatinine equation, which does not include race as a factor us Hermes Jaramillo MD LAB BLOOD ORDERABLES Final Re sult [facility]
[address] [place] [address], * (ABNORMAL) CBC (No Diff) (09/02/2025 5:43 AM EST) WBC 10.84(H) 3.40 - 10.80 10*3/mm3 09/02/2025 6:25 AM EST [facility] RBC 3.22(L) 4.14 - 5.80 10*6/mm3 09/02/2025 6:25 AM EST [facility] Hemoglobin 9.6(L) 13.0 - 17.7 g/dL 09/02/2025 6:25 AM EST [facility] Hematocrit 30.8(L) 37.5 - 51.0 % 09/02/2025 6:25 AM EST [facility] MCV 95.7 79.0 - 97.0 fL 09/02/2025 6:25 AM EST [facility] MCH 29.8 26.6 - 33.0 pg 09/02/2025 6:25 AM EST [facility] MCHC 31.2(L) 31.5 - 35.7 g/dL 09/02/2025 6:25 AM [facility] RDW 14.2 12.3 - 15.4 % 09/02/2025 6:25 AM [facility] RDW-SD 50.4 37.0 - 54.0 fl 09/02/2025 6:25 AM [facility] MPV 10.4 6.0 - 12.0 fL 09/02/2025 6:25 AM [facility] Platelets 94(L) 140 - 450 10*3/mm3 09/02/2025 6:25 AM EST [facility] Blood Venipuncture / Unknown 09/02/2025 5:43 AM EST 09/02/2025 6:08 AM EST Hermes Jaramillo MD LAB BLOOD ORDERABLES Final Re sult Performing Organization Address City/[facility]/ZIP Co de Phone Number [facility]
[address] [place] [address], * Magnesium (09/02/2025 5:43 AM EST) Magnesium 2.4 1.6 - 2.4 mg/dL 09/02/2025 6:55 AM EST [facility] Blood Venipuncture / Unknown 09/02/2025 5:43 AM EST 09/02/2025 6:09 AM EST Brian Hughes MD LAB BLOOD ORDERABLES Final R esult Performing Organization Address City/[facility]/ZIP Co de Phone Number [facility]
[address] [place] [address], * (ABNORMAL) POC Glucose Once (09/01/2025 7:57 PM EST) Glucose 139(H) 70 - 130 mg/dL 09/01/2025 8:03 PM EST [facility] Comment:Serial Number: [id number] Blood 09/01/2025 7:57 PM EST 09/01/2025 8:03 PM EST Flora Baig MD POINT OF CARE TEST ORDERABLES Final Result Performing Organization Address [facility] Co de Phone Number [facility]
[address] [place] [address], * (ABNORMAL) POC Glucose Once (09/01/2025 5:34 PM EST) Glucose 132(H) 70 - 130 mg/dL 09/01/2025 5:36 PM EST [facility] Comment:Serial Number: [id number]: [id number] Blood 09/01/2025 5:34 PM EST 09/01/2025 5:36 PM EST Flora Baig MD POINT OF CARE TEST ORDERABLES Final Result Performing Organization Address [facility] Phone Number [facility]
[address] [place] [address], * (ABNORMAL) Phosphorus (09/01/2025 5:05 PM EST) Phosphorus 2.1(L) 2.5 - 4.5 mg/dL 09/01/2025 6:08 PM EST [facility] Blood Venipuncture / Unknown 09/01/2025 5:05 PM EST 09/01/2025 5:45 PM EST Flora Baig MD LAB BLOOD ORDE RABLES Final Result Performing Organization Address City/[facility] Co de Phone Number [facility]
[address] [place] [address], * Potassium (09/01/2025 5:05 PM EST) Potassium 4.0 3.5 - 5.2 mmol/L 09/01/2025 6:08 PM EST [facility] Blood Venipuncture / Unknown 09/01/2025 5:05 PM EST 09/01/2025 5:45 PM EST Flora Baig MD LAB BLOOD ORDE RABLES Final Result [facility]
[address] [place] [address], * POC Glucose Once (09/01/2025 11:39 AM EST) Glucose 109 70 - 130 mg/dL 09/01/2025 11:41 AM EST [facility] Comment:Serial Number: [id number]: [id number] Blood 09/01/2025 11:3 9 AM EST 09/01/2025 11:41 AM EST Flora Baig MD POINT OF CARE TEST ORDERABLES Final Result [facility]
[address] [place] [address], * POC Glucose Once (09/01/2025 5:31 AM EST) Glucose 111 70 - 130 mg/dL 09/01/2025 5:33 AM EST [facility] Comment:Serial Number: [id number] Blood 09/01/2025 5:31 AM EST 09/01/2025 5:33 AM EST Floar Baig MD POINT OF CARE TEST ORDERABLES Final Result Performing Organization Address City/[facility]/ZIP Co de Phone Number [facility]
[address] [place] [address], * (ABNORMAL) Hepatic Function Panel (09/01/2025 4:01 AM EST) Total Protein 5.0(L) 6.0 - 8.5 g/dL 09/01/2025 4:48 AM EST [facility] Albumin 3.0(L) 3.5 - 5.2 g/dL 09/01/2025 4:48 AM EST [facility] ALT (SGPT) 98(H) 1 - 41 U/L 09/01/2025 4:48 AM EST [facility] AST (SGOT) 38 1 - 40 U/L 09/01/2025 4:48 AM EST [facility] Alkaline Phosphatase 108 39 - 117 U/L 09/01/2025 4:48 AM EST [facility] Total Bilirubin 0.6 0.0 - 1.2 mg/dL 09/01/2025 4:48 AM EST [facility] Bilirubin, Direct 0.5(H) 0.0 - 0.3 mg/dL 09/01/2025 4:48 AM EST [facility] Bilirubin, Indirect 0.1 mg/dL 09/01/2025 4:48 AM EST [facility] Blood Venipuncture / Unknown 09/01/2025 4:01 AM EST 09/01/2025 4:15 AM EST Brian Hughes MD LAB BLOOD ORDERABLES Final R esult [facility]
[address] [place] [address], * (ABNORMAL) Basic Metabolic Panel (09/01/2025 4:01 AM EST) Glucose 108(H) 65 - 99 mg/dL 09/01/2025 4:48 AM [facility] BUN 27.2(H) 8.0 - 23.0 mg/dL 09/01/2025 4:48 AM [facility] [facility] Creatinine 0.75(L) 0.76 - 1.27 mg/dL 09/01/2025 4:48 AM [facility] Sodium 148(H) 136 - 145 mmol/L 09/01/2025 4:48 AM EST [facility] Potassium 3.6 3.5 - 5.2 mmol/L 09/01/2025 4:48 AM [facility] Chloride 113(H) 98 - 107 mmol/L 09/01/2025 4:48 AM [facility] CO2 26.8 22.0 - 29.0 mmol/L 09/01/2025 4:48 AM [facility] Calcium 7.7(L) 8.6 - 10.5 mg/dL 09/01/2025 4:48 AM [facility] BUN/Creatinine Ratio 36.3(H) 7.0 - 25.0 09/01/2025 4:48 AM [facility] Anion Gap 8.2 5.0 - 15.0 mmol/L 09/01/2025 4:48 AM [facility] eGFR 87.9 >60.0 mL/min/1.7 3 09/01/2025 4:48 AM [facility] Blood Venipuncture / Unknown 09/01/2025 4:01 AM EST 09/01/2025 4:15 AM EST [facility] - 09/01/2025 4:48 AM EST GFR Categories in Chronic Kidney Disease (CKD) GFR Category GFR (mL/min/1.73) Interpretation G1 90 or greater Normal or high (1) G2 60-89 Mild decrease (1) G3a 45-59 Mild to moderate decrease G3b 30-44 Moderate to severe decrease G4 15-29 Severe decrease G5 14 or less Kidney failure (1)In the absence of evidence of kidney disease, neither GFR category G1 or G2 fulfill the criteria for CKD. eGFR calculation 2020 CKD-EPI creatinine equation, which does not include race as a factor us Brian Hughes MD LAB BLOOD ORDERABLES Final R esult Performing Organization Address [facility] Co de Phone Number [facility]
[address] [place] [address], * (ABNORMAL) Phosphorus (09/01/2025 4:01 AM EST) Phosphorus 2.0(L) 2.5 - 4.5 mg/dL 09/01/2025 4:48 AM EST [facility] Blood Venipuncture / Unknown 09/01/2025 4:01 AM EST 09/01/2025 4:15 AM EST us Brian Hughes MD LAB BLOOD ORDERABLES Final R esult Performing Organization Address [facility] de Phone Number [facility]
[address] [place] [address], * (ABNORMAL) Magnesium (09/01/2025 4:01 AM EST) Magnesium 2.5(H) 1.6 - 2.4 mg/dL 09/01/2025 4:48 AM EST [facility] Blood Venipuncture / Unknown 09/01/2025 4:01 AM EST 09/01/2025 4:15 AM EST us Brian Hughes MD LAB BLOOD ORDERABLES Final R esult Performing Organization Address [facility] de Phone Number [facility]
[address] [place] [address], * POC Glucose Once (08/31/2025 11:55 PM EST) Glucose 104 70 - 130 mg/dL 08/31/2025 11:57 PM EST [facility] Comment:Serial Number: [id number]: [id number] Blood 08/31/2025 11:5 5 PM EST 08/31/2025 11:57 PM EST Cristian Mckee DO POINT OF CARE TEST ORDERABLES Final Result Performing Organization Address City/[facility]/ZIP Co de Phone Number [facility]
[address] [place] [address], * POC Glucose Once (08/31/2025 6:02 PM EST) Glucose 119 70 - 130 mg/dL 08/31/2025 6:05 PM EST [facility] Comment:Serial Number: [id number]: [id number] Blood 08/31/2025 6:02 PM EST 08/31/2025 6:05 PM EST Cristian Mckee DO POINT OF CARE TEST ORDERABLES Final Result Performing Organization Address [facility] Co de Phone Number [facility]
[address] [place] [address], * Telemetry Scan (08/31/2025 2:54 PM EST) [facility] ECG ORDERABLES Final Result * (ABNORMAL) POC Glucose Once (08/31/2025 1:02 PM EST) Glucose 135(H) 70 - 130 mg/dL 08/31/2025 1:05 PM EST [facility] Comment:Serial Number: [id number]: [id number] Blood 08/31/2025 1:02 PM EST 08/31/2025 1:05 PM EST Cristian Mckee DO POINT OF CARE TEST ORDERABLES Final Result [facility]
[address] [place] [address], * PSYCH TECH FEES - Fiberoptic Endo Eval Swallow (08/31/2025 9:23 AM EST) Narrative SYSTEMGENERATED, DOCUMENTATION - 08/31/2025 9:23 AM EST This procedure was auto-finalized with no dictation required. Brian Hughes MD PSYCH TECH ORDERABLES Final Result * POC Glucose Once (08/31/2025 5:18 AM EST) Glucose 121 70 - 130 mg/dL 08/31/2025 5:20 AM EST [facility] Comment:Serial Number: [id number]: [id number] Blood 08/31/2025 5:18 AM EST 08/31/2025 5:20 AM EST Cristian Mckee DO POINT OF CARE TEST ORDERABLES Final Result Performing Organization Address [facility] Co de Phone Number [facility]
[address] [place] [address], * (ABNORMAL) Procalcitonin (08/31/2025 3:38 AM EST) Procalcitonin 15.80(H) 0.00 - 0.25 ng/mL 08/31/2025 8:30 AM EST [facility] Blood Line / Unknown 08/31/2025 3: 38 AM EST 08/31/2025 3:45 AM EST Narrative [facility] - 08/31/2025 8:30 AM EST As a Marker for Sepsis (Non-Neonates): 1. <0.5 ng/mL represents a low risk of severe sepsis and/or septic shock. 2. >2 ng/mL represents a high risk of severe sepsis and/or septic shock. As a Marker for Lower Respiratory Tract Infections that require antibiotic therapy: PCT on Admission Antibiotic Therapy 6-12 Hrs later >0.5 Strongly Recommended >0.25 - <0.5 Recommended 0.1 - 0.25 Discouraged Remeasure/reassess PCT <0.1 Strongly Discouraged Remeasure/reassess PCT As 28 day mortality risk marker: Change in Procalcitonin Result (>80% or <=80%) if Day 0 (or Day 1) and Day 4 values are available. Refer to http://www.exntnp-nwv-xpvnrdkxnf.com Change in PCT <=80% A decrease of PCT levels below or equal to 80% defines a positive change in PCT test result representing a higher risk for 28-day all-cause mortality of patients diagnosed with severe sepsis for septic shock. Change in PCT >80% A decrease of PCT levels of more than 80% defines a negative change in PCT result representing a lower risk for 28-day all-cause mortality of patients diagnosed with severe sepsis or septic shock. us Marcos Palacios PharmD LAB BLOOD ORDERABLES Fin al Result [facility]
[address] [place] [address], * (ABNORMAL) Manual Differential (08/31/2025 3:38 AM EST) [facility] Neutrophil % 75.0 42.7 - 76.0 % 08/31/2025 6:28 AM EST [facility] Lymphocyte % 9.0(L) 19.6 - 45.3 % 08/31/2025 6:28 AM EST [facility] Monocyte % 2.0(L) 5.0 - 12.0 % 08/31/2025 6:28 AM EST [facility] Eosinophil % 2.0 0.3 - 6.2 % 08/31/2025 6:28 AM EST [facility] Basophil % 0.0 0.0 - 1.5 % 08/31/2025 6:28 AM EST [facility] Bands % 11.0(H) 0.0 - 5.0 % 08/31/2025 6:28 AM EST [facility] Atypical Lymphocyte % 1.0 0.0 - 5.0 % 08/31/2025 6:28 AM EST [facility] Neutrophils Absolute 11.30(H) 1.70 - 7.00 10*3/mm3 08/31/2025 6:28 AM EST [facility] Lymphocytes Absolute 1.31 0.70 - 3.10 10*3/mm3 08/31/2025 6:28 AM EST [facility] Monocytes Absolute 0.26 0.10 - 0.90 10*3/mm3 08/31/2025 6:28 AM EST [facility] Eosinophils Absolute 0.26 0.00 - 0.40 10*3/mm3 08/31/2025 6:28 AM [facility] Basophils Absolute 0.00 0.00 - 0.20 10*3/mm3 08/31/2025 6:28 AM EST [facility] RBC Morphology Normal Normal 08/31/2025 6:28 AM EST [facility] WBC Morphology Normal Normal 08/31/2025 6:28 AM [facility] Platelet Morphology Normal Normal 08/31/2025 6:28 AM [facility] Blood Line / Unknown 08/31/2025 3: 38 AM EST 08/31/2025 3:48 AM EST Cristian Mckee DO LAB BLOOD ORDERABLE S Final Result [facility]
[address] [place] [address], * (ABNORMAL) CBC Auto Differential (08/31/2025 3:38 AM EST) WBC 13.14(H) 3.40 - 10.80 10*3/mm3 08/31/2025 6:28 AM EST [facility] RBC 3.12(L) 4.14 - 5.80 10*6/mm3 08/31/2025 6:28 AM [facility] Hemoglobin 9.4(L) 13.0 - 17.7 g/dL 08/31/2025 6:28 AM [facility] Hematocrit 29.2(L) 37.5 - 51.0 % 08/31/2025 6:28 AM [facility] MCV 93.6 79.0 - 97.0 fL 08/31/2025 6:28 AM [facility] MCH 30.1 26.6 - 33.0 pg 08/31/2025 6:28 AM [facility] MCHC 32.2 31.5 - 35.7 g/dL 08/31/2025 6:28 AM [facility] RDW 14.3 12.3 - 15.4 % 08/31/2025 6:28 AM [facility] RDW-SD 49.1 37.0 - 54.0 fl 08/31/2025 6:28 AM [facility] MPV 10.6 6.0 - 12.0 fL 08/31/2025 6:28 AM [facility] Platelets 102(L) 140 - 450 10*3/mm3 08/31/2025 6:28 AM [facility] Blood Line / Unknown 08/31/2025 3: 38 AM EST 08/31/2025 3:48 AM EST [facility] - 08/31/2025 6:28 AM EST The previously reported component NRBC is no longer being reported. Previous result was 0.0 /100 WBC (Reference Range: 0.0-0.2 /100 WBC) on 08/31/2025 at 0411 EST. us Cristian Mckee DO LAB BLOOD ORDERABLE S Final Result [facility]
[address] [place] [address], * (ABNORMAL) Phosphorus (08/31/2025 3:38 AM EST) Phosphorus 1.7(LL) 2.5 - 4.5 mg/dL 08/31/2025 4:38 AM EST [facility] Blood Line / Unknown 08/31/2025 3: 38 AM EST 08/31/2025 3:45 AM EST us Brian Hughes MD LAB BLOOD ORDERABLES Final R esult [facility]
[address] [place] [address], * (ABNORMAL) Comprehensive Metabolic Panel (08/31/2025 3:38 AM EST) Pathologist [facility] Glucose 114(H) 65 - 99 mg/dL 08/31/2025 4:30 AM EST [facility] BUN 29.3(H) 8.0 - 23.0 mg/dL 08/31/2025 4:30 AM EST [facility] Creatinine 0.77 0.76 - 1.27 mg/dL 08/31/2025 4:30 AM [facility] Sodium 151(H) 136 - 145 mmol/L 08/31/2025 4:30 AM [facility] Potassium 3.2(L) 3.5 - 5.2 mmol/L 08/31/2025 4:30 AM [facility] Chloride 114(H) 98 - 107 mmol/L 08/31/2025 4:30 AM EST [facility] CO2 28.2 22.0 - 29.0 mmol/L 08/31/2025 4:30 AM EST [facility] Calcium 7.8(L) 8.6 - 10.5 mg/dL 08/31/2025 4:30 AM EST [facility] Total Protein 5.1(L) 6.0 - 8.5 g/dL 08/31/2025 4:30 AM EST [facility] Albumin 3.0(L) 3.5 - 5.2 g/dL 08/31/2025 4:30 AM EST [facility] ALT (SGPT) 144(H) 1 - 41 U/L 08/31/2025 4:30 AM EST [facility] AST (SGOT) 71(H) 1 - 40 U/L 08/31/2025 4:30 AM [facility] Alkaline Phosphatase 107 39 - 117 U/L 08/31/2025 4:30 AM [facility] Total Bilirubin 0.6 0.0 - 1.2 mg/dL 08/31/2025 4:30 AM [facility] Globulin 2.1 gm/dL 08/31/2025 4:30 AM [facility] Comment:Calculated Result A/G Ratio 1.4 g/dL 08/31/2025 4:30 AM [facility] BUN/Creatinine Ratio 38.1(H) 7.0 - 25.0 08/31/2025 4:30 AM [facility] Anion Gap 8.8 5.0 - 15.0 mmol/L 08/31/2025 4:30 AM [facility] eGFR 87.2 >60.0 mL/min/1.7 3 08/31/2025 4:30 AM [facility] Blood Line / Unknown 08/31/2025 3: 38 AM EST 08/31/2025 3:45 AM EST [facility] - 08/31/2025 4:30 AM EST GFR Categories in Chronic Kidney Disease (CKD) GFR Category GFR (mL/min/1.73) Interpretation G1 90 or greater Normal or high (1) G2 60-89 Mild decrease (1) G3a 45-59 Mild to moderate decrease G3b 30-44 Moderate to severe decrease G4 15-29 Severe decrease G5 14 or less Kidney failure (1)In the absence of evidence of kidney disease, neither GFR category G1 or G2 fulfill the criteria for CKD. eGFR calculation 2020 CKD-EPI creatinine equation, which does not include race as a factor us Hermes Jaramillo MD LAB BLOOD ORDERABLES Final Re sult [facility]
[address] [place] [address], * (ABNORMAL) Lipase (08/31/2025 3:38 AM EST) Lipase 110(H) 13 - 60 U/L 08/31/2025 4:30 AM EST [facility] Blood Line / Unknown 08/31/2025 3: 38 AM EST 08/31/2025 3:45 AM EST Hermes Jaramillo MD LAB BLOOD ORDERABLES Final Re sult [facility]
[address] [place] [address], * (ABNORMAL) Magnesium (08/31/2025 3:38 AM EST) Magnesium 2.6(H) 1.6 - 2.4 mg/dL 08/31/2025 4:30 AM EST [facility] Blood Line / Unknown 08/31/2025 3: 38 AM EST 08/31/2025 3:45 AM EST Brian Hughes MD LAB BLOOD ORDERABLES Final R esult [facility]
[address] [place] [address], * POC Glucose Once (08/30/2025 11:24 PM EST) Glucose 113 70 - 130 mg/dL 08/30/2025 11:26 PM EST [facility] Comment:Serial Number: [id number]: [id number] Nova Comment 1 Critical called to 08/30/2025 11:26 PM EST [facility] Nova Comment 2 Follow unit protocol 08/30/2025 11:26 PM EST [facility] Blood 08/30/2025 11:2 4 PM EST 08/30/2025 11:26 PM EST Kyleivanrosi Elliottargentina Mckee DO POINT OF CARE TEST ORDERABLES Final Result Performing Organization Address [facility] Co de Phone Number [facility]
[address] [place] [address], * POC Glucose Once (08/30/2025 5:45 PM EST) Glucose 91 70 - 130 mg/dL 08/30/2025 5:49 PM EST [facility] Comment:Serial Number: [id number]: [id number] Blood 08/30/2025 5:45 PM EST 08/30/2025 5:49 PM EST Kyleivanrosi Elliottargentina Mckee DO POINT OF CARE TEST ORDERABLES Final Result Performing Organization Address [facility] Co de Phone Number [facility]
[address] [place] [address], * POC Glucose Once (08/30/2025 11:31 AM EST) Glucose 92 70 - 130 mg/dL 08/30/2025 11:35 AM EST [facility] Comment:Serial Number: [id number]: [id number] Blood 08/30/2025 11:3 1 AM EST 08/30/2025 11:34 AM EST Kyleadama Gordon Rylee ZURITA POINT OF CARE TEST ORDERABLES Final Result Performing Organization Address [facility] Co de Phone Number [facility]
[address] [place] [address], * Telemetry Scan (08/30/2025 9:26 AM EST) [facility] Onbase ECG ORDERABLES Final Result * POC Glucose Once (08/30/2025 5:13 AM EST) Glucose 100 70 - 130 mg/dL 08/30/2025 5:16 AM EST [facility] Comment:Serial Number: [id number]: [id number] Blood 08/30/2025 5:13 AM EST 08/30/2025 5:16 AM EST Cristian Mckee DO POINT OF CARE TEST ORDERABLES Final Result Performing Organization Address [facility] de Phone Number [facility]
[address] [place] [address], * Phosphorus (08/30/2025 4:03 AM EST) Phosphorus 2.5 2.5 - 4.5 mg/dL 08/30/2025 5:01 AM EST [facility] Blood Line / Unknown 08/30/2025 4: 03 AM EST 08/30/2025 4:30 AM EST Brian Hughes MD LAB BLOOD ORDERABLES Final R esult Performing Organization Address [facility] de Phone Number [facility]
[address] [place] [address], * (ABNORMAL) Lipase (08/30/2025 4:03 AM EST) Lipase 137(H) 13 - 60 U/L 08/30/2025 4:53 AM EST [facility] Blood Line / Unknown 08/30/2025 4: 03 AM EST 08/30/2025 4:30 AM EST Hermes Jaramillo MD LAB BLOOD ORDERABLES Final Re sult Performing Organization Address City/[facility] Co de Phone Number [facility]
[address] [place] [address], * (ABNORMAL) Comprehensive Metabolic Panel (08/30/2025 4:03 AM EST) [facility] Glucose 98 65 - 99 mg/dL 08/30/2025 4:53 AM EST [facility] BUN 35.1(H) 8.0 - 23.0 mg/dL 08/30/2025 4:53 AM EST [facility] Creatinine 1.16 0.76 - 1.27 mg/dL 08/30/2025 4:53 AM EST [facility] Sodium 148(H) 136 - 145 mmol/L 08/30/2025 4:53 AM EST [facility] Potassium 3.5 3.5 - 5.2 mmol/L 08/30/2025 4:53 AM EST [facility] Chloride 109(H) 98 - 107 mmol/L 08/30/2025 4:53 AM EST [facility] CO2 30.9(H) 22.0 - 29.0 mmol/L 08/30/2025 4:53 AM EST [facility] Calcium 7.9(L) 8.6 - 10.5 mg/dL 08/30/2025 4:53 AM EST [facility] Total Protein 5.0(L) 6.0 - 8.5 g/dL 08/30/2025 4:53 AM EST [facility] Albumin 2.9(L) 3.5 - 5.2 g/dL 08/30/2025 4:53 AM EST [facility] ALT (SGPT) 199(H) 1 - 41 U/L 08/30/2025 4:53 AM EST [facility] AST (SGOT) 144(H) 1 - 40 U/L 08/30/2025 4:53 AM EST [facility] Alkaline Phosphatase 93 39 - 117 U/L 08/30/2025 4:53 AM [facility] Total Bilirubin 0.7 0.0 - 1.2 mg/dL 08/30/2025 4:53 AM EST [facility] Globulin 2.1 gm/dL 08/30/2025 4:53 AM EST [facility] Comment:Calculated Result A/G Ratio 1.4 g/dL 08/30/2025 4:53 AM EST [facility] BUN/Creatinine Ratio 30.3(H) 7.0 - 25.0 08/30/2025 4:53 AM EST [facility] Anion Gap 8.1 5.0 - 15.0 mmol/L 08/30/2025 4:53 AM EST [facility] eGFR 61.3 >60.0 mL/min/1.7 3 08/30/2025 4:53 AM EST [facility] Blood Line / Unknown 08/30/2025 4: 03 AM EST 08/30/2025 4:30 AM EST [facility] - 08/30/2025 4:53 AM EST GFR Categories in Chronic Kidney Disease (CKD) GFR Category GFR (mL/min/1.73) Interpretation G1 90 or greater Normal or high (1) G2 60-89 Mild decrease (1) G3a 45-59 Mild to moderate decrease G3b 30-44 Moderate to severe decrease G4 15-29 Severe decrease G5 14 or less Kidney failure (1)In the absence of evidence of kidney disease, neither GFR category G1 or G2 fulfill the criteria for CKD. eGFR calculation 2020 CKD-EPI creatinine equation, which does not include race as a factor us Hermes Jaramillo MD LAB BLOOD ORDERABLES Final Re sult [facility]
[address] [place] [address], * (ABNORMAL) CBC (No Diff) (08/30/2025 4:03 AM EST) WBC 12.35(H) 3.40 - 10.80 10*3/mm3 08/30/2025 4:37 AM EST [facility] RBC 2.83(L) 4.14 - 5.80 10*6/mm3 08/30/2025 4:37 AM [facility] Hemoglobin 8.3(L) 13.0 - 17.7 g/dL 08/30/2025 4:37 AM [facility] Hematocrit 26.5(L) 37.5 - 51.0 % 08/30/2025 4:37 AM [facility] MCV 93.6 79.0 - 97.0 fL 08/30/2025 4:37 AM [facility] MCH 29.3 26.6 - 33.0 pg 08/30/2025 4:37 AM [facility] MCHC 31.3(L) 31.5 - 35.7 g/dL 08/30/2025 4:37 AM [facility] RDW 14.7 12.3 - 15.4 % 08/30/2025 4:37 AM [facility] RDW-SD 50.5 37.0 - 54.0 fl 08/30/2025 4:37 AM [facility] MPV 10.6 6.0 - 12.0 fL 08/30/2025 4:37 AM [facility] Platelets 96(L) 140 - 450 10*3/mm3 08/30/2025 4:37 AM [facility] Blood Line / Unknown 08/30/2025 4: 03 AM EST 08/30/2025 4:31 AM EST Hermes Jaramillo MD LAB BLOOD ORDERABLES Final Re sult [facility]
[address] [place] [address], * (ABNORMAL) Magnesium (08/30/2025 4:03 AM EST) Magnesium 2.7(H) 1.6 - 2.4 mg/dL 08/30/2025 4:53 AM [facility] Blood Line / Unknown 08/30/2025 4: 03 AM EST 08/30/2025 4:30 AM EST Brian Hughes MD LAB BLOOD ORDERABLES Final R esult Performing Organization Address [facility] Co de Phone Number [facility]
[address] [place] [address], * POC Glucose Once (08/29/2025 11:05 PM EST) Glucose 101 70 - 130 mg/dL 08/29/2025 11:07 PM EST [facility] Comment:Serial Number: [id number]: [id number] Blood 08/29/2025 11:0 5 PM EST 08/29/2025 11:07 PM EST Cristian Mckee DO POINT OF CARE TEST ORDERABLES Final Result Performing Organization Address [facility] Co de Phone Number [facility]
[address] [place] [address], * POC Glucose Once (08/29/2025 5:50 PM EST) [facility] Glucose 112 70 - 130 mg/dL 08/29/2025 6:02 PM EST [facility] Comment:Serial Number: [id number]: [id number] Blood 08/29/2025 5:50 PM EST 08/29/2025 6:02 PM EST Cristian Mckee DO POINT OF CARE TEST ORDERABLES Final Result Performing Organization Address [facility] Co de Phone Number [facility]
[address] [place] [address], * (ABNORMAL) Blood Gas, Arterial With Co-Ox (08/29/2025 5:10 PM EST) Pathologist [facility] Site Arterial Line 08/29/2025 5:10 PM [facility] Andrey's Test N/A 08/29/2025 5:10 PM [facility] pH, Arterial 7.490(H) 7.350 - 7.450 pH units 08/29/2025 5:10 PM [facility] Comment:83 Value above refer ence range pCO2, Arterial 31.6(L) 35.0 - 45.0 mm Hg 08/29/2025 5:10 PM [facility] Comment:84 Value below refer ence range pO2, Arterial 145.0(H) 83.0 - 108.0 mm Hg 08/29/2025 5:10 PM [facility] HCO3, Arterial 24.0 20.0 - 26.0 mmol/L 08/29/2025 5:10 PM [facility] Base Excess, Arterial 0.8 0.0 - 2.0 mmol/L 08/29/2025 5:10 PM [facility] Hemoglobin, Blood Gas 7.5(L) 13.5 - 17.5 g/dL 08/29/2025 5:10 PM [facility] Comment:84 Value below refer ence range Hematocrit, Blood Gas 23.1(L) 38.0 - 51.0 % 08/29/2025 5:10 PM [facility] Oxyhemoglobin 98.7 94 - 99 % 08/29/2025 5:10 PM [facility] Methemoglobin 0.30 0.00 - 1.50 % 08/29/2025 5:10 PM [facility] Carboxyhemoglobin 1.1 0 - 2 % 025 5:10 PM [facility] CO2 Content 25.0 22 - 33 mmol/L 08/29/2025 5:10 PM [facility] Temperature 37.0 08/29/2025 5:10 PM [facility] Barometric Pressure for Blood Gas 08/29/2025 5:10 PM [facility] Comment:N/A Modality Ventilator 08/29/2025 5:10 PM EST [facility] FIO2 40 % 08/29/2025 5:10 PM EST [facility] Ventilator Mode PS 5:10 PM EST [facility] RESPIRATORY THERAPY Rate 0 Breaths/ minute 08/29/2025 5:10 PM EST [facility] RESPIRAT[facility] THERAPY PEEP 6.0 08/29/2025 5:10 PM EST [facility] RESPIRAT[facility] THERAPY PSV 10.0 cmH2O 08/29/2025 5:10 PM EST [facility] RESPIRATORY THERAPY PIP 0 cmH2O 08/29/2025 5:10 PM EST [facility] RESPIRAT[facility] THERAPY Comment:Meter: [id number] Radiator Cleaner: [id number] IPAP 0 cm H2O 08/29/2025 5:10 PM EST [facility] RESPIRATORY THERAPY EPAP 0 cm H2O 08/29/2025 5:10 PM EST [facility] RESPIRATORY THERAPY pH, Temp Corrected 7.490 pH Units 2024 5:10 PM EST [facility] RESPIRATORY THERAPY pCO2, Temperature Corrected 31.6(L) 35 - 48 mm Hg 08/29/2025 5:10 PM EST [facility] RESPIRATORY THERAPY pO2, Temperature Corrected 145(H) 83 - 108 mm Hg 08/29/2025 5:10 PM EST [facility] RESPIRATORY THERAPY Arterial Blood 08/29/2025 5: 10 PM EST 08/29/2025 5:10 PM EST us Cristian Mckee DO LAB BLOOD ORDERABLE S Final Result [facility] RESPIRATORY THERAPY
[address] [place] [address], * (ABNORMAL) STAT Lactic Acid, Reflex (08/29/2025 4:18 PM EST) Lactate 2.3(HH) 0.5 - 2.0 mmol/L 08/29/2025 4:52 PM EST [facility] Comment:Falsely depressed re sults may occur on samples drawn from patients receiving N-Acetylcysteine (NAC) or Metamizole. Blood Line / Unknown 08/29/2025 4: 18 PM EST 08/29/2025 4:29 PM EST Cristian Mckee LAB BLOOD ORDERABLE S Final Result Performing Organization Address City/[facility]/ZIP Co de Phone Number [facility] LABORATORY
[address] [place] [address], * (ABNORMAL) STAT Lactic Acid, Reflex (08/29/2025 1:16 PM EST) Lactate 2.9(HH) 0.5 - 2.0 mmol/L 08/29/2025 1:55 PM EST [facility] Blood Line / Unknown 08/29/2025 1: 16 PM EST 08/29/2025 1:23 PM EST Cristian Mckee LAB BLOOD ORDERABLE S Final Result Performing Organization Address [facility] Co de Phone Number [facility]
[address] [place] [address], * POC Glucose Once (08/29/2025 11:07 AM EST) Glucose 108 70 - 130 mg/dL 08/29/2025 11:11 AM EST [facility] Comment:Serial Number: [id number]: [id number] Blood 08/29/2025 11:0 7 AM EST 08/29/2025 11:11 AM EST [place] Evan Mckee DO POINT OF CARE TEST ORDERABLES Final Result Performing Organization Address City/[facility]/ZIP Co de Phone Number [facility]
[address] [place] [address], * (ABNORMAL) STAT Lactic Acid, Reflex (08/29/2025 9:42 AM EST) Lactate 3.7(HH) 0.5 - 2.0 mmol/L 08/29/2025 10:35 AM EST [facility] Comment:Falsely depressed re sults may occur on samples drawn from patients receiving N-Acetylcysteine (NAC) or Metamizole. Blood Line / Unknown 08/29/2025 9: 42 AM EST 08/29/2025 10:10 AM EST [facility] LAB BLOOD ORDERABLE S Final Result Performing Organization Address City/[facility]/ZIP Co de Phone Number [facility]AT[facility]
[address] [place] [address], * POC Glucose Once (08/29/2025 6:16 AM EST) Pathologist [facility] Glucose 100 70 - 130 mg/dL 08/29/2025 6:19 AM EST [facility] Comment:Serial Number: [id number]: [id number] Blood 08/29/2025 6:16 AM EST 08/29/2025 6:19 AM EST Tello Evan [facility] POINT OF CARE TEST ORDERABLES Final Result Performing Organization Address City/[facility]/ZIP Co de Phone Number [facility]
[address] [place] [address], * (ABNORMAL) CBC (No Diff) (08/29/2025 6:07 AM EST) Pathologist [facility] WBC 15.08(H) 3.40 - 10.80 10*3/mm3 08/29/2025 6:34 AM EST [facility] RBC 2.90(L) 4.14 - 5.80 10*6/mm3 08/29/2025 6:34 AM EST [facility] Hemoglobin 8.5(L) 13.0 - 17.7 g/dL 08/29/2025 6:34 AM EST [facility] Hematocrit 26.8(L) 37.5 - 51.0 % 08/29/2025 6:34 AM EST [facility] MCV 92.4 79.0 - 97.0 fL 08/29/2025 6:34 AM EST [facility] MCH 29.3 26.6 - 33.0 pg 08/29/2025 6:34 AM EST [facility] MCHC 31.7 31.5 - 35.7 g/dL 08/29/2025 6:34 AM [facility] RDW 15.1 12.3 - 15.4 % 08/29/2025 6:34 AM [facility] RDW-SD 50.7 37.0 - 54.0 fl 08/29/2025 6:34 AM [facility] MPV 10.4 6.0 - 12.0 fL 08/29/2025 6:34 AM [facility] Platelets 95(L) 140 - 450 10*3/mm3 08/29/2025 6:34 AM [facility] Blood Line / Unknown 08/29/2025 6: 07 AM EST 08/29/2025 6:13 AM EST Alma Rosa Lucas PICKLE [employer]ER LAB BLOOD ORDERABLES Final Result [facility]
[address] [place] [address], * (ABNORMAL) Basic Metabolic Panel (08/29/2025 6:07 AM EST) Glucose 119(H) 65 - 99 mg/dL 08/29/2025 6:34 AM EST [facility] BUN 38.4(H) 8.0 - 23.0 mg/dL 08/29/2025 6:34 AM [facility] Creatinine 1.57(H) 0.76 - 1.27 mg/dL 08/29/2025 6:34 AM EST [facility] Sodium 146(H) 136 - 145 mmol/L 08/29/2025 6:34 AM EST [facility] Potassium 4.1 3.5 - 5.2 mmol/L 08/29/2025 6:34 AM EST [facility] Chloride 105 98 - 107 mmol/L 08/29/2025 6:34 AM EST [facility] CO2 26.0 22.0 - 29.0 mmol/L 08/29/2025 6:34 AM EST [facility] Calcium 7.9(L) 8.6 - 10.5 mg/dL 08/29/2025 6:34 AM [facility] BUN/Creatinine Ratio 24.5 7.0 - 25.0 08/29/2025 6:34 AM EST [facility] Anion Gap 15.0 5.0 - 15.0 mmol/L 08/29/2025 6:34 AM [facility] eGFR 42.7(L) >60.0 mL/min/1.7 3 08/29/2025 6:34 AM [facility] Blood Line / Unknown 08/29/2025 6: 07 AM EST 08/29/2025 6:13 AM EST [facility] LABORATORY - 08/29/2025 6:34 AM EST GFR Categories in Chronic Kidney Disease (CKD) GFR Category GFR (mL/min/1.73) Interpretation G1 90 or greater Normal or high (1) G2 60-89 Mild decrease (1) G3a 45-59 Mild to moderate decrease G3b 30-44 Moderate to severe decrease G4 15-29 Severe decrease G5 14 or less Kidney failure (1)In the absence of evidence of kidney disease, neither GFR category G1 or G2 fulfill the criteria for CKD. eGFR calculation 2020 CKD-EPI creatinine equation, which does not include race as a factor us Brian Hughes MD LAB BLOOD ORDERABLES Final R esult [facility]
[address] [place] [address], * (ABNORMAL) Phosphorus (08/29/2025 6:07 AM EST) Phosphorus 5.2(H) 2.5 - 4.5 mg/dL 08/29/2025 6:34 AM EST [facility] Blood Line / Unknown 08/29/2025 6: 07 AM EST 08/29/2025 6:13 AM EST Brian Hughes MD LAB BLOOD ORDERABLES Final R esult Performing Organization Address City/[facility]/ZIP Co de Phone Number [facility]
[address] [place] [address], * (ABNORMAL) Lactic Acid, Plasma (08/29/2025 6:07 AM EST) Lactate 4.5(HH) 0.5 - 2.0 mmol/L 08/29/2025 6:38 AM EST [facility] Comment:Falsely depressed re sults may occur on samples drawn from patients receiving N-Acetylcysteine (NAC) or Metamizole. Blood Line / Unknown 08/29/2025 6: 07 AM EST 08/29/2025 6:13 AM EST Cristian Mckee DO LAB BLOOD ORDERABLE S Final Result [facility]
[address] [place] [address], * Magnesium (08/29/2025 6:07 AM EST) Magnesium 2.3 1.6 - 2.4 mg/dL 08/29/2025 6:38 AM EST [facility] Blood Line / Unknown 08/29/2025 6: 07 AM EST 08/29/2025 6:13 AM EST us Brian Hughes MD LAB BLOOD ORDERABLES Final R esult [facility]
[address] [place] [address], * XR Chest 1 View (08/29/2025 3:58 AM EST) Anatomical Region Laterality Modality Body N/A Radiographic Radha ging 08/29/2025 4:13 AM EST Impressions 08/29/2025 4:14 AM EST 1.Slight increased infiltrate or atelectasis at the right lung base. 2.Persistent opacities in the left mid to lower lung with possible small left effusion. Electronically Signed: Luís Rodríguez MD 08/29/2025 4:14 AM EST Workstation ID: [id number] Narrative 08/29/2025 4:14 AM EST XR CHEST 1 VW Date of Exam: 08/29/2025 3:40 AM EST Indication: Respiratory failure. Comparison: 08/28/2025 Findings: Endotracheal tube and right IJ line are in good position. NG tube extends below the diaphragm. Heart size stable. There is slight increased infiltrate or atelectasis at the right lung base. There are persistent opacities in the left mid to lower lung, and a small left effusion may be present. No pneumothorax. Procedure Note Luís Rodríguez MD - 08/29/2025 XR CHEST 1 VW Date of Exam: 08/29/2025 3:40 AM EST Indication: Respiratory failure. Comparison: 08/28/2025 Findings: Endotracheal tube and right IJ line are in good position. NG tube extendsbelow the diaphragm. Heart size stable. There is slight increasedinfiltrate or atelectasis at the right lung base. There are persistentopacities in the left mid to lower lung, and a small left effusion may be present. No pneumothorax. IMPRESSION: 1.Slight increased infiltrate or atelectasis at the right lung base. 2.Persistent opacities in the left mid to lower lung with possible smallleft effusion. Electronically Signed: Luís Rodríguez MD 08/29/2025 4:14 AM EST Workstation ID: [id number] Alma Rosa Lucas P[employer] IMG DIAGNOSTIC IMAGING ORD ERABLES Final Result * (ABNORMAL) Blood Gas, Arterial With Co-Ox (08/29/2025 3:51 AM EST) Site Arterial Line 08/29/2025 3:52 AM EST [facility] RESPIRATORY THERAPY Andrey's Test N/A 08/29/2025 3:52 AM EST [facility] RESPIRAT[facility] THERAPY pH, Arterial 7.407 7.350 - 7.450 pH units 08/29/2025 3:52 AM EST [facility] RESPIRAT[facility] THERAPY pCO2, Arterial 36.8 35.0 - 45.0 mm Hg 08/29/2025 3:52 AM [facility] RESPIR[facility] THERAPY pO2, Arterial 144.0(H) 83.0 - 108.0 mm Hg 08/29/2025 3:52 AM EST [facility] RESPIRAT[facility] THERAPY HCO3, Arterial 23.1 20.0 - 26.0 mmol/L 08/29/2025 3:52 AM [facility] RESPIRAT[facility] THERAPY Base Excess, Arterial -1.4(L) 0.0 - 2.0 mmol/L 08/29/2025 3:52 AM [facility] RESPIRAT[facility] THERAPY Hemoglobin, Blood Gas 8.0(L) 13.5 - 17.5 g/dL 08/29/2025 3:52 AM [facility]IR[facility] THERAPY Comment:84 Value below refer ence range Hematocrit, Blood Gas 24.5(L) 38.0 - 51.0 % 08/29/2025 3:52 AM [facility] RESPIRAT[facility] THERAPY Oxyhemoglobin 98.5 94 - 99 % 08/29/2025 3:52 AM [facility]IR[facility] THERAPY Methemoglobin 0.20 0.00 - 1.50 % 08/29/2025 3:52 AM [facility] RESPIR[facility] THERAPY Carboxyhemoglobin 1.1 0 - 2 % 025 3:52 AM [facility] RESPIR[facility] THERAPY CO2 Content 24.3 22 - 33 mmol/L 08/29/2025 3:52 AM [facility] THERAPY Temperature 37.0 08/29/2025 3:52 AM [facility] THERAPY Barometric Pressure for Blood Gas 08/29/2025 3:52 AM [facility] THERAPY Comment:N/A Modality Ventilator 08/29/2025 3:52 AM [facility]IR[facility] THERAPY FIO2 45 % 08/29/2025 3:52 AM [facility] RES[facility]IR[facility] THERAPY Ventilator Mode VC+/AC 3:52 AM [facility]IR[facility] THERAPY Set Tidal Volume 0.46 08/29/20 3:52 AM [facility] RES[facility]IR[facility] THERAPY Rate 16 Breaths/ minute 08/29/2025 3:52 AM [facility]IR[facility] THERAPY PEEP 10.0 08/29/2025 3:52 AM [facility] RESPIR[facility] THERAPY PIP 0 cmH2O 08/29/2025 3:52 AM [facility] THERAPY Comment:Meter: [id number] Radiator Cleaner: [id number] IPAP 0 cm H2O 08/29/2025 3:52 AM [facility] RES[facility]IR[facility] THERAPY EPAP 0 cm H2O 08/29/2025 3:52 AM [facility] THERAPY pH, Temp Corrected 7.407 pH Units 2024 3:52 AM [facility] RESPIR[facility] THERAPY pCO2, Temperature Corrected 36.8 35 - 48 mm Hg 08/29/2025 3:52 AM [facility] THERAPY pO2, Temperature Corrected 144(H) 83 - 108 mm Hg 08/29/2025 3:52 AM [facility] THERAPY Arterial Blood 08/29/2025 3: 51 AM EST 08/29/2025 3:51 AM EST us Cristian Mckee DO LAB BLOOD ORDERABLE S Final Result [facility] RESPIRATORY THERAPY
[address] [place] [address], * (ABNORMAL) Lactic Acid, Plasma (08/29/2025 12:24 AM EST) [facility] Lactate 5.1(HH) 0.5 - 2.0 mmol/L 08/29/2025 1:21 AM EST [facility] Comment:Falsely depressed re sults may occur on samples drawn from patients receiving N-Acetylcysteine (NAC) or Metamizole. Blood Line / Unknown 08/29/2025 12 :24 AM EST 08/29/2025 12:44 AM EST [facility] LAB BLOOD ORDERABLE S Final Result [facility]
[address] [place] [address], * POC Glucose Once (08/28/2025 10:58 PM EST) [facility] Glucose 109 70 - 130 mg/dL 08/28/2025 11:00 PM EST [facility] Comment:Serial Number: [id number]: [id number] Blood 08/28/2025 10:5 8 PM EST 08/28/2025 11:00 PM EST Tello [facility] POINT OF CARE TEST ORDERABLES Final Result [facility]
[address] [place] [address], * (ABNORMAL) Blood Gas, Arterial With Co-Ox (08/28/2025 8:04 PM EST) [facility] Site Arterial Line 08/28/2025 8:04 PM EST [facility] RESPIRATORY THERAPY Andrey's Test N/A 08/28/2025 8:04 PM EST [facility] RESPIRATORY THERAPY pH, Arterial 7.408 7.350 - 7.450 pH units 08/28/2025 8:04 PM EST [facility] RESPIR[facility] THERAPY pCO2, Arterial 37.6 35.0 - 45.0 mm Hg 08/28/2025 8:04 PM [facility]IR[facility] THERAPY pO2, Arterial 157.0(H) 83.0 - 108.0 mm Hg 08/28/2025 8:04 PM [facility] RES[facility]IR[facility] THERAPY HCO3, Arterial 23.7 20.0 - 26.0 mmol/L 08/28/2025 8:04 PM [facility] THERAPY Base Excess, Arterial -0.8(L) 0.0 - 2.0 mmol/L 08/28/2025 8:04 PM [facility] THERAPY Hemoglobin, Blood Gas 8.3(L) 13.5 - 17.5 g/dL 08/28/2025 8:04 PM [facility] THERAPY Comment:84 Value below refer ence range Hematocrit, Blood Gas 25.3(L) 38.0 - 51.0 % 08/28/2025 8:04 PM [facility] THERAPY Oxyhemoglobin 98.6 94 - 99 % 08/28/2025 8:04 PM [facility] THERAPY Methemoglobin 0.30 0.00 - 1.50 % 08/28/2025 8:04 PM [facility] THERAPY Carboxyhemoglobin 1.1 0 - 2 % 025 8:04 PM [facility] THERAPY CO2 Content 24.9 22 - 33 mmol/L 08/28/2025 8:04 PM [facility] THERAPY Temperature 37.0 08/28/2025 8:04 PM [facility] THERAPY Barometric Pressure for Blood Gas 08/28/2025 8:04 PM [facility] THERAP[facility] Comment:N/A Modality Ventilator 08/28/2025 8:04 PM [facility] THERAPY FIO2 45 % 08/28/2025 8:04 PM [facility] THERAPY Ventilator Mode VC+/AC 8:04 PM [facility] THERAP[facility] Set Tidal Volume 0.46 08/28/20 25 8:04 PM [facility] THERAPY Rate 16 Breaths/ minute 08/28/2025 8:04 PM [facility] THERAPY PEEP 10.0 08/28/2025 8:04 PM [facility] THERAPY PIP 0 cmH2O 08/28/2025 8:04 PM [facility] THERAPY Comment:Meter: [id number] Radiator Cleaner: [id number] IPAP 0 cm H2O 08/28/2025 8:04 PM [facility] THERAPY EPAP 0 cm H2O 08/28/2025 8:04 PM [facility] THERAPY pH, Temp Corrected 7.408 pH Units 2024 8:04 PM [facility] THERAPY pCO2, Temperature Corrected 37.6 35 - 48 mm Hg 08/28/2025 8:04 PM [facility] THERAPY pO2, Temperature Corrected 157(H) 83 - 108 mm Hg 08/28/2025 8:04 PM [facility] THERAPY Arterial Blood 08/28/2025 8: 04 PM EST 08/28/2025 8:04 PM EST Cristian Mckee DO LAB BLOOD ORDERABLE S Final Result [facility] RESPIR[facility]ORY THERAPY
[address] [place] [address], * (ABNORMAL) Lactic Acid, Plasma (08/28/2025 7:18 PM EST) Lactate 5.7(HH) 0.5 - 2.0 mmol/L 08/28/2025 7:58 PM EST [facility] Comment:Falsely depressed re sults may occur on samples drawn from patients receiving N-Acetylcysteine (NAC) or Metamizole. Blood Line / Unknown 08/28/2025 7: 18 PM EST 08/28/2025 7:33 PM EST Cristian Mckee DO LAB BLOOD ORDERABLE S Final Result [facility]
[address] [place] [address], * POC Glucose Once (08/28/2025 5:56 PM EST) [facility] Glucose 113 70 - 130 mg/dL 08/28/2025 5:59 PM EST [facility] Comment:Serial Number: [id number]: [id number] Blood 08/28/2025 5:56 PM EST 08/28/2025 5:59 PM EST Cristian Mckee DO POINT OF CARE TEST ORDERABLES Final Result [facility]
[address] [place] [address], * (ABNORMAL) Blood Gas, Arterial With Co-Ox (08/28/2025 2:14 PM EST) [facility] Site Arterial Line 08/28/2025 2:16 PM EST [facility] RESPIR[facility] THERAPY Andrey's Test N/A 08/28/2025 2:16 PM EST [facility] THERAPY pH, Arterial 7.312(L) 7.350 - 7.450 pH units 08/28/2025 2:16 PM EST [facility] THERAPY Comment:84 Value below refer ence range pCO2, Arterial 44.7 35.0 - 45.0 mm Hg 08/28/2025 2:16 PM EST [facility] THERAPY pO2, Arterial 161.0(H) 83.0 - 108.0 mm Hg 08/28/2025 2:16 PM EST [facility] THERAPY HCO3, Arterial 22.6 20.0 - 26.0 mmol/L 08/28/2025 2:16 PM EST [facility] THERAPY Base Excess, Arterial -3.5(L) 0.0 - 2.0 mmol/L 08/28/2025 2:16 PM EST [facility] THERAPY Hemoglobin, Blood Gas 9.1(L) 13.5 - 17.5 g/dL 08/28/2025 2:16 PM [facility] THERAP[facility] Comment:84 Value below refer ence range Hematocrit, Blood Gas 27.8(L) 38.0 - 51.0 % 08/28/2025 2:16 PM [facility] THERAPY Oxyhemoglobin 98.3 94 - 99 % 08/28/2025 2:16 PM [facility] THERAP[facility] Methemoglobin 0.60 0.00 - 1.50 % 08/28/2025 2:16 PM [facility] THER[facility] Carboxyhemoglobin 1.0 0 - 2 % 2:16 PM [facility] THERAP[facility] CO2 Content 24.0 22 - 33 mmol/L 08/28/2025 2:16 PM [facility] THERAP[facility] Temperature 37.0 08/28/2025 2:16 PM [facility] THER[facility] Barometric Pressure for Blood Gas 08/28/2025 2:16 PM [facility] THER[facility] Comment:N/A Modality Ventilator 08/28/2025 2:16 PM [facility] THERAPY FIO2 60 % 08/28/2025 2:16 PM [facility] THERAP[facility] Ventilator Mode VC+/AC 2:16 PM [facility] THERAP[facility] Set Tidal Volume 460 08/28/20 25 2:16 PM [facility] THERAP[facility] Set Mech Resp Rate 16 2024 2:16 PM [facility] THERAP[facility] Rate 16 Breaths/ minute 08/28/2025 2:16 PM [facility] THERAPY Comment:Meter: [id number] Radiator Cleaner: [id number] PEEP 10.0 08/28/2025 2:16 PM [facility] THERAPY pH, Temp Corrected 7.312 pH Units 2024 2:16 PM [facility] THERAPY pCO2, Temperature Corrected 44.7 35 - 48 mm Hg 08/28/2025 2:16 PM [facility] THERAP[facility] pO2, Temperature Corrected 161(H) 83 - 108 mm Hg 08/28/2025 2:16 PM EST [facility] RESPIRAT[facility] THERAPY Arterial Blood 08/28/2025 2: 14 PM EST 08/28/2025 2:15 PM EST Cristian Mckee DO LAB BLOOD ORDERABLE S Final Result Performing Organization Address City/[facility]/ZIP Co de Phone Number [facility] RESPIRATORY THERAPY
[address] [place] [address], * POC Glucose Once (08/28/2025 11:09 AM EST) Glucose 89 70 - 130 mg/dL 08/28/2025 11:12 AM EST [facility] Comment:Serial Number: [id number]: [id number] Blood 08/28/2025 11:0 9 AM EST 08/28/2025 11:12 AM EST Cristian Mckee DO POINT OF CARE TEST ORDERABLES Final Result Performing Organization Address [facility] Co de Phone Number [facility]
[address] [place] [address], * XR Abdomen KUB (08/28/2025 10:13 AM EST) Anatomical Region Laterality Modality Body, Abdomen N/A Radiographic Radha ging 08/28/2025 10:5 3 AM EST Impressions 08/28/2025 10:53 AM EST Impression: NG tube tip overlies the mid body of the stomach. Electronically Signed: Stephen Toussaint MD 08/28/2025 10:53 AM EST Workstation ID: [id number] Narrative 08/28/2025 10:53 AM EST XR ABDOMEN KUB Date of Exam: 08/28/2025 9:53 AM EST Indication: Eval NG. Comparison: CT abdomen and pelvis 08/27/2025 Findings: Placement of esophagogastric tube. The tip overlies the expected location of the mid body of the stomach. Nonspecific bowel gas pattern. Left basilar airspace disease again noted better assessed on recent CT. Procedure Note Stephen Toussaint MD - 08/28/2025 XR ABDOMEN KUB Date of Exam: 08/28/2025 9:53 AM EST Indication: Eval NG. Comparison: CT abdomen and pelvis 08/27/2025 Findings: Placement of esophagogastric tube. The tip overlies the expected locationof the mid body of the stomach. Nonspecific bowel gas pattern. Leftbasilar airspace disease again noted better assessed on recent CT. IMPRESSION: Impression: NG tube tip overlies the mid body of the stomach. Electronically Signed: Stephen Toussaint MD 08/28/2025 10:53 AM EST Workstation ID: [id number] us Hermes Jaramillo MD IMG DIAGNOSTIC IMAGING ORDERA BLES Final Result * XR Chest 1 View (08/28/2025 10:12 AM EST) Anatomical Region Laterality Modality Body N/A Radiographic Radha ging 08/28/2025 11:0 6 AM EST Impressions 08/28/2025 11:08 AM EST Impression: 1.Intubation with ET tube tip 5 cm above the justa. 2.Placement of esophagogastric tube with tip below the diaphragm. 3.Stable right IJ central venous catheter. 4.Left lower lobe mass and left basilar pulmonary nodules better assessed on recent CT. 5.Bibasilar atelectasis left greater than right. No pneumothorax. Electronically Signed: Stephen Toussaint MD 08/28/2025 11:08 AM EST Workstation ID: [id number] Narrative 08/28/2025 11:08 AM EST XR CHEST 1 VW Date of Exam: 08/28/2025 10:09 AM EST Indication: tube placement. Comparison: 08/28/2025 Findings: Intubation with the endotracheal tube tip 5 cm above the justa. Placement of an esophagogastric tube with the tip below the diaphragm. Right IJ central venous catheter again noted with the tip at the cavoatrial junction. Heart size normal. Left lower lobe mass and left basilar pulmonary nodules better assessed on recent CT. Suspect mild left basilar atelectasis. No pneumothorax. Procedure Note Stephen Toussaint MD - 08/28/2025 XR CHEST 1 VW Date of Exam: 08/28/2025 10:09 AM EST Indication: tube placement. Comparison: 08/28/2025 Findings: Intubation with the endotracheal tube tip 5 cm above the justa. Placementof an esophagogastric tube with the tip below the diaphragm. Right IJcentral venous catheter again noted with the tip at the cavoatrialjunction. Heart size normal. Left lower lobe mass and left basilar pulmonary nodules better assessed on recent CT.Suspect mild left basilar atelectasis. No pneumothorax. IMPRESSION: Impression: 1.Intubation with ET tube tip 5 cm above the justa. 2.Placement of esophagogastric tube with tip below the diaphragm. 3.Stable right IJ central venous catheter. 4.Left lower lobe mass and left basilar pulmonary nodules better assessedon recent CT. 5.Bibasilar atelectasis left greater than right. No pneumothorax. Electronically Signed: Stephen Toussaint MD 08/28/2025 11:08 AM EST Workstation ID: [id number] us Cristian Mckee DO IMG DIAGNOSTIC IMAG ING ORDERABLES Final Result * (ABNORMAL) Blood Gas, Arterial With Co-Ox (08/28/2025 9:58 AM EST) Site Arterial Line 08/28/2025 10:00 AM [facility] Andrey's Test N/A 08/28/2025 10:00 AM [facility] pH, Arterial 7.210(LL) 7.350 - 7.450 pH units 08/28/2025 10:00 AM [facility] Comment:85 Value below criti valentín limit pCO2, Arterial 45.7(H) 35.0 - 45.0 mm Hg 08/28/2025 10:00 AM [facility] Comment:83 Value above refer ence range pO2, Arterial 316.0(H) 83.0 - 108.0 mm Hg 08/28/2025 10:00 AM [facility] HCO3, Arterial 18.3(L) 20.0 - 26.0 mmol/L 08/28/2025 10:00 AM [facility] Base Excess, Arterial -9.1(L) 0.0 - 2.0 mmol/L 08/28/2025 10:00 AM [facility] Hemoglobin, Blood Gas 8.8(L) 13.5 - 17.5 g/dL 08/28/2025 10:00 AM [facility] Comment:84 Value below refer ence range Hematocrit, Blood Gas 26.9(L) 38.0 - 51.0 % 08/28/2025 10:00 AM [facility] Oxyhemoglobin 98.6 94 - 99 % 08/28/2025 10:00 AM [facility] Methemoglobin 0.50 0.00 - 1.50 % 08/28/2025 10:00 AM [facility] Carboxyhemoglobin 1.2 0 - 2 % 025 10:00 AM [facility] CO2 Content 19.7(L) 22 - 33 mmol/L 08/28/2025 10:00 AM [facility] Temperature 37.0 08/28/2025 10:00 AM [facility] Barometric Pressure for Blood Gas 08/28/2025 10:00 AM [facility] Comment:N/A Modality Ventilator 08/28/2025 10:00 AM [facility] FIO2 100 % 08/28/2025 10:00 AM [facility] Ventilator Mode VC+/AC 10:00 AM [facility] Set Tidal Volume 460 08/28/20 10:00 AM [facility] Set Mech Resp Rate 16 2024 10:00 AM [facility] Rate 16 Breaths/ minute 08/28/2025 10:00 AM [facility] Comment:Meter: [id number] Radiator Cleaner: [id number] PEEP 5.0 08/28/2025 10:00 AM [facility] Notified Lon LUCAS RN 08/28/2025 10:00 AM [facility] Notified By [id number] 08/28/2025 10:00 AM [facility] Notified Time 08/28/2025 10:00 08/28/2025 10:00 AM [facility] pH, Temp Corrected 7.210 pH Units 2024 10:00 AM [facility] pCO2, Temperature Corrected 45.7 35 - 48 mm Hg 08/28/2025 10:00 AM [facility] pO2, Temperature Corrected 316(H) 83 - 108 mm Hg 08/28/2025 10:00 AM [facility] Arterial Blood 08/28/2025 9: 58 AM EST 08/28/2025 9:59 AM EST us Cristian Mckee DO LAB BLOOD ORDERABLE S Final Result [facility]
[address] [place] [address], [place] * (ABNORMAL) Manual Differential (08/28/2025 9:55 AM EST) Neutrophil % 65.0 42.7 - 76.0 % 08/28/2025 10:49 PM [facility] Lymphocyte % 9.0(L) 19.6 - 45.3 % 08/28/2025 10:49 PM [facility] Monocyte % 2.0(L) 5.0 - 12.0 % 08/28/2025 10:49 PM [facility] Eosinophil % 0.0(L) 0.3 - 6.2 % 08/28/2025 10:49 PM [facility] Basophil % 0.0 0.0 - 1.5 % 08/28/2025 10:49 PM [facility] Bands % 23.0(H) 0.0 - 5.0 % 08/28/2025 10:49 PM [facility] Atypical Lymphocyte % 1.0 0.0 - 5.0 % 08/28/2025 10:49 PM [facility] Neutrophils Absolute 26.36(H) 1.70 - 7.00 10*3/mm3 08/28/2025 10:49 PM [facility] Lymphocytes Absolute 3.00 0.70 - 3.10 10*3/mm3 08/28/2025 10:49 PM [facility] Monocytes Absolute 0.60 0.10 - 0.90 10*3/mm3 08/28/2025 10:49 PM [facility] Eosinophils Absolute 0.00 0.00 - 0.40 10*3/mm3 08/28/2025 10:49 PM [facility] Basophils Absolute 0.00 0.00 - 0.20 10*3/mm3 08/28/2025 10:49 PM [facility] RBC Morphology Normal Normal 08/28/2025 10:49 PM [facility] Dohle Bodies Present None Seen 08/28/2025 10:49 PM [facility] Platelet Morphology Normal Normal 08/28/2025 10:49 PM [facility] Blood Line / Unknown 08/28/2025 9: 55 AM EST 08/28/2025 10:09 AM EST Cristian Mckee DO LAB BLOOD ORDERABLE S Final Result [facility]
[address] [place] [address], * (ABNORMAL) CBC Auto Differential (08/28/2025 9:55 AM EST) WBC 29.95(HH) 3.40 - 10.80 10*3/mm3 08/28/2025 10:49 PM EST [facility] RBC 2.33(L) 4.14 - 5.80 10*6/mm3 08/28/2025 10:49 PM [facility] Hemoglobin 7.2(L) 13.0 - 17.7 g/dL 08/28/2025 10:49 PM [facility] Hematocrit 23.2(L) 37.5 - 51.0 % 08/28/2025 10:49 PM [facility] MCV 99.6(H) 79.0 - 97.0 fL 08/28/2025 10:49 PM [facility] MCH 30.9 26.6 - 33.0 pg 08/28/2025 10:49 PM [facility] MCHC 31.0(L) 31.5 - 35.7 g/dL 08/28/2025 10:49 PM [facility] RDW 14.8 12.3 - 15.4 % 08/28/2025 10:49 PM [facility] RDW-SD 53.8 37.0 - 54.0 fl 08/28/2025 10:49 PM [facility] MPV 10.4 6.0 - 12.0 fL 08/28/2025 10:49 PM [facility] Platelets 137(L) 140 - 450 10*3/mm3 08/28/2025 10:49 PM [facility] Blood Line / Unknown 08/28/2025 9: 55 AM EST 08/28/2025 10:09 AM EST [facility] - 08/28/2025 10:49 PM EST The previously reported component NRBC is no longer being reported. Previous result was 0.0 /100 WBC (Reference Range: 0.0-0.2 /100 WBC) on 08/28/2025 at 2222 EST. us Cristian Mckee DO LAB BLOOD ORDERABLE S Final Result [facility]
[address] [place] [address], * (ABNORMAL) Hepatic Function Panel (08/28/2025 9:55 AM EST) Total Protein 5.2(L) 6.0 - 8.5 g/dL 08/28/2025 10:25 PM EST [facility] Albumin 3.5 3.5 - 5.2 g/dL 08/28/2025 10:25 PM EST [facility] ALT (SGPT) 234(H) 1 - 41 U/L 08/28/2025 10:25 PM EST [facility] AST (SGOT) 259(H) 1 - 40 U/L 08/28/2025 10:25 PM EST [facility] Alkaline Phosphatase 71 39 - 117 U/L 08/28/2025 10:25 PM EST [facility] Total Bilirubin 0.8 0.0 - 1.2 mg/dL 08/28/2025 10:25 PM [facility] Bilirubin, Direct 0.6(H) 0.0 - 0.3 mg/dL 08/28/2025 10:25 PM [facility] Bilirubin, Indirect 0.2 mg/dL 08/28/2025 10:25 PM [facility] Blood Line / Unknown 08/28/2025 9: 55 AM EST 08/28/2025 10:09 AM EST us Brian Hughes MD LAB BLOOD ORDERABLES Final R esult [facility]
[address] [place] [address], * (ABNORMAL) Lactic Acid, Plasma (08/28/2025 9:55 AM EST) Pathologist [facility] Lactate 10.4(HH) 0.5 - 2.0 mmol/L 08/28/2025 10:38 AM EST [facility] Comment:Falsely depressed re sults may occur on samples drawn from patients receiving N-Acetylcysteine (NAC) or Metamizole. Blood Line / Unknown 08/28/2025 9: 55 AM EST 08/28/2025 10:09 AM EST us Hermes Jaramillo MD LAB BLOOD ORDERABLES Final Re sult [facility]
[address] [place] [address], * (ABNORMAL) CBC (No Diff) (08/28/2025 9:55 AM EST) WBC 29.84(H) 3.40 - 10.80 10*3/mm3 08/28/2025 10:16 AM EST [facility] RBC 2.82(L) 4.14 - 5.80 10*6/mm3 08/28/2025 10:16 AM EST [facility] Hemoglobin 8.3(L) 13.0 - 17.7 g/dL 08/28/2025 10:16 AM [facility] Hematocrit 26.9(L) 37.5 - 51.0 % 08/28/2025 10:16 AM EST [facility] MCV 95.4 79.0 - 97.0 fL 08/28/2025 10:16 AM EST [facility] MCH 29.4 26.6 - 33.0 pg 08/28/2025 10:16 AM EST [facility] MCHC 30.9(L) 31.5 - 35.7 g/dL 08/28/2025 10:16 AM [facility] RDW 14.5 12.3 - 15.4 % 08/28/2025 10:16 AM [facility] RDW-SD 50.2 37.0 - 54.0 fl 08/28/2025 10:16 AM EST [facility] MPV 10.0 6.0 - 12.0 fL 08/28/2025 10:16 AM [facility] Platelets 136(L) 140 - 450 10*3/mm3 08/28/2025 10:16 AM [facility] Blood Line / Unknown 08/28/2025 9: 55 AM EST 08/28/2025 10:09 AM EST us Hermes Jaramillo MD LAB BLOOD ORDERABLES Final Re sult [facility]
[address] [place] [address], * (ABNORMAL) Basic Metabolic Panel (08/28/2025 9:55 AM EST) Pathologist [facility] Glucose 112(H) 65 - 99 mg/dL 08/28/2025 10:35 AM EST [facility] BUN 31.2(H) 8.0 - 23.0 mg/dL 08/28/2025 10:35 AM EST [facility] Creatinine 1.72(H) 0.76 - 1.27 mg/dL 08/28/2025 10:35 AM EST [facility] Sodium 145 136 - 145 mmol/L 08/28/2025 10:35 AM EST [facility] Potassium 3.7 3.5 - 5.2 mmol/L 08/28/2025 10:35 AM [facility] Chloride 106 98 - 107 mmol/L 08/28/2025 10:35 AM EST [facility] CO2 18.3(L) 22.0 - 29.0 mmol/L 08/28/2025 10:35 AM EST [facility] Calcium 9.2 8.6 - 10.5 mg/dL 08/28/2025 10:35 AM EST [facility] BUN/Creatinine Ratio 18.1 7.0 - 25.0 08/28/2025 10:35 AM [facility] Anion Gap 20.7(H) 5.0 - 15.0 mmol/L 08/28/2025 10:35 AM EST [facility] eGFR 38.2(L) >60.0 mL/min/1.7 3 08/28/2025 10:35 AM EST [facility] Blood Line / Unknown 08/28/2025 9: 55 AM EST 08/28/2025 10:09 AM EST Narrative [facility] - 08/28/2025 10:35 AM EST GFR Categories in Chronic Kidney Disease (CKD) GFR Category GFR (mL/min/1.73) Interpretation G1 90 or greater Normal or high (1) G2 60-89 Mild decrease (1) G3a 45-59 Mild to moderate decrease G3b 30-44 Moderate to severe decrease G4 15-29 Severe decrease G5 14 or less Kidney failure (1)In the absence of evidence of kidney disease, neither GFR category G1 or G2 fulfill the criteria for CKD. eGFR calculation 2020 CKD-EPI creatinine equation, which does not include race as a factor us Hermes Jaramillo MD LAB BLOOD ORDERABLES Final Re sult [facility]
[address] [place] [address], * POC Glucose Once (08/28/2025 9:34 AM EST) Glucose 99 70 - 130 mg/dL 08/28/2025 11:00 AM EST [facility] Comment:Serial Number: [id number]: [id number] Blood 08/28/2025 9:34 AM EST 08/28/2025 11:00 AM EST Cristian Mckee DO POINT OF CARE TEST ORDERABLES Final Result Performing Organization Address City/[facility] Co de Phone Number [facility]
[address] [place] [address], * [place] Cholangiogram Operative (08/28/2025 8:46 AM EST) Anatomical Region Laterality Modality Abdomen, Other Radio Fluoroscop y 08/28/2025 3:22 PM EST Impressions 08/28/2025 3:24 PM EST Impression: Images saved during intraoperative cholangiogram, see operative report for further detail. Electronically Signed: Brian Crandall MD 08/28/2025 3:24 PM EST Workstation ID: [id number] Narrative 08/28/2025 3:24 PM EST [place] CHOLANGIOGRAM OPERATIVE Date of Exam: 08/28/2025 8:29 AM EST Indication: CHOLECYSTECTOMY LAPAROSCOPIC INTRAOPERATIVE CHOLANGIOGRAM. Comparison: CT abdomen pelvis 08/27/2025 Technique: Digital spot images were obtained from an intraoperative cholangiogram procedure performed by the surgeon. Fluoroscopic Time: 39 seconds Number of Images: 3 Findings: Fluoroscopic images saved during intraoperative cholangiogram. Cannulated cystic duct. Injection of contrast reveals dilation of the common bile duct without filling defects to suggest choledocholithiasis. There is reflux of contrast into the pancreatic ducts with probable prominent accessory sidebranch less likely incomplete pancreatic divisum. Pancreatic ducts appear dilated. No significant intrapelvic duct dilation. Contrast progresses into the duodenum as expected. Procedure Note Brian Crandall MD - 08/28/2025 [place] CHOLANGIOGRAM OPERATIVE Date of Exam: 08/28/2025 8:29 AM EST Indication: CHOLECYSTECTOMY LAPAROSCOPIC INTRAOPERATIVE CHOLANGIOGRAM. Comparison: CT abdomen pelvis 08/27/2025 Technique: Digital spot images were obtained from an intraoperativecholangiogram procedure performed by the surgeon. Fluoroscopic Time: 39 seconds Number of Images: 3 Findings: Fluoroscopic images saved during intraoperative cholangiogram. Cannulatedcystic duct. Injection of contrast reveals dilation of the common bileduct without filling defects to suggest choledocholithiasis. There isreflux of contrast into the pancreatic ducts with probable prominent accessory sidebranch less likely incompletepancreatic divisum. Pancreatic ducts appear dilated. No significantintrapelvic duct dilation. Contrast progresses into the duodenum asexpected. IMPRESSION: Impression: Images saved during intraoperative cholangiogram, see operative report forfurther detail. Electronically Signed: Brian Carndall MD 08/28/2025 3:24 PM EST Workstation ID: [id number] Hermes Jaramillo MD IM FLUOROSCOPY ORDERABLES Fi nal Result * (ABNORMAL) POC Surgery Labs (08/28/2025 8:43 AM EST) Ionized Calcium 1.35(H) 1.15 - 1.30 mmol/L 08/28/2025 9:41 AM EST [facility] POC Potassium 3.5 3.5 - 4.9 mmol/L 08/28/2025 9:41 AM EST [facility] Sodium 142 138 - 146 mmol/L 08/28/2025 9:41 AM EST [facility] Total CO2 18(L) 24 - 29 mmol/L 08/28/2025 9:41 AM [facility] Hemoglobin 7.8(LL) 12.0 - 17.0 g/dL 08/28/2025 9:41 AM EST [facility] Hematocrit 23(L) 38 - 51 % 08/28/2025 9:41 AM [facility] pCO2, Arterial 44.8 35 - 45 mm Hg 08/28/2025 9:41 AM [facility] pO2, Arterial 340(H) 80 - 105 mmHg 08/28/2025 9:41 AM [facility] Comment:Serial Number: [id number] Base Excess -12.0000(L ) -5 - 5 mmol/L 08/28/2025 9:41 AM EST [facility] O2 Saturation, Arterial 100(H) 95 - 98 % 08/28/2025 9:41 AM [facility] pH, Arterial 7.18(L) 7.35 - 7.6 pH units 08/28/2025 9:41 AM [facility] HCO3, Arterial 16.5(L) 22 - 26 mmol/L 08/28/2025 9:41 AM EST [facility] Glucose 117 70 - 130 mg/dL 08/28/2025 9:41 AM [facility] Blood 08/28/2025 8:43 AM EST 08/28/2025 9:41 AM EST Cristian Mckee DO POINT OF CARE TEST ORDERABLES Final Result [facility]
[address] [place] [address], * Tissue Pathology Exam (08/28/2025 8:40 AM EST) Case Report Surgical Pathology Report Case: [id number] Authorizing Provider: Hermes Jaramillo MD Collected: 08/28/2025 08:40 AM Ordering Location: [facility] Received: 08/29/2025 07:43 AM OR Pathologist: Zach Arenas MD Specimen: Gallbladder, gallbladder 08/31/2025 10:47 AM EST [facility] Clinical Information Cholecystitis 08/31/2025 10:47 AM EST [facility] Final Diagnosis GALLBLADDER, CHOLECYSTECTOMY: Chronic cholecystitis. Reactive epithelial changes present; negative for dysplasia. Portion of lymph node negative for malignancy. 08/31/2025 10:47 AM EST [facility] at 1047 EST Gross Description 1. Gallbladder. Received in formalin labeled gallbladder is an 8.5 x 3.4 x 2.2 cm focally disrupted gallbladder. A possible disrupted cystic duct lymph node is present. The serosa is aviles and wrinkled. The lumen contains a minimal amount of yellow biliary sludge. No stones are identified. The mucosa is velvety and brown without masses or polyps. The wall thickness averages 0.2-0.3 cm. A prominent mucosal fold is present within the fundus. [employer] sections are submitted as follows: 1A-en face cystic duct margin, neck, body, and fundus with mucosal fold 1B-possible disrupted lymph node. LDP Additional sections are submitted in blocks 1C-1G. LDP 08/30/2025 08/31/2025 10:47 AM EST [facility] Microscopic Description The slides are reviewed and demonstrate histopathologic features supporting the above rendered diagnosis. 08/31/2025 10:47 AM EST [facility] Tissue Gallbladder structure / Unknown 08/28/2025 8:40 AM EST 08/29/2025 7:43 AM EST us Hermes Jaramillo MD PATHOLOGY/CYTOLOGY ORDERABLES Final Result [facility]
[address] [place] [address], * (ABNORMAL) Blood Gas, Arterial With Co-Ox (08/28/2025 7:18 AM EST) Pathologist [facility] Site Arterial Line 08/28/2025 7:21 AM [facility] Andrey's Test N/A 08/28/2025 7:21 AM [facility] pH, Arterial 7.273(L) 7.350 - 7.450 pH units 08/28/2025 7:21 AM [facility] Comment:84 Value below refer ence range pCO2, Arterial 31.2(L) 35.0 - 45.0 mm Hg 08/28/2025 7:21 AM [facility] Comment:84 Value below refer ence range pO2, Arterial 87.0 83.0 - 108.0 mm Hg 08/28/2025 7:21 AM [facility] HCO3, Arterial 14.4(L) 20.0 - 26.0 mmol/L 08/28/2025 7:21 AM [facility] Base Excess, Arterial -11.4(L) 0.0 - 2.0 mmol/L 08/28/2025 7:21 AM [facility] Hemoglobin, Blood Gas 8.6(L) 13.5 - 17.5 g/dL 08/28/2025 7:21 AM [facility] Comment:84 Value below refer ence range Hematocrit, Blood Gas 26.3(L) 38.0 - 51.0 % 08/28/2025 7:21 AM [facility] Oxyhemoglobin 95.6 94 - 99 % 08/28/2025 7:21 AM [facility] Methemoglobin 0.30 0.00 - 1.50 % 08/28/2025 7:21 AM [facility] Carboxyhemoglobin 1.5 0 - 2 % 025 7:21 AM [facility] CO2 Content 15.4(L) 22 - 33 mmol/L 08/28/2025 7:21 AM [facility] Temperature 37.0 08/28/2025 7:21 AM [facility] Barometric Pressure for Blood Gas 08/28/2025 7:21 AM [facility] Comment:N/A Modality Nasal Cannula 08/28/2025 7:21 AM [facility] FIO2 28 % 08/28/2025 7:21 AM [facility] Ventilator Mode 7:21 AM [facility] Comment:Meter: [id number] Radiator Cleaner: [id number] pH, Temp Corrected 7.273 pH Units 2024 7:21 AM [facility] pCO2, Temperature Corrected 31.2(L) 35 - 48 mm Hg 08/28/2025 7:21 AM [facility] pO2, Temperature Corrected 87.0 83 - 108 mm Hg 08/28/2025 7:21 AM [facility] Arterial Blood 08/28/2025 7: 18 AM EST 08/28/2025 7:20 AM EST us Linda Rubin MD LAB BLOOD ORDERABLES Final Resul t Performing Organization Address City/[facility]/ZIP Co de Phone Number [facility] THERAP[facility]
[address] * (ABNORMAL) POC Glucose Once (08/28/2025 7:07 AM EST) Glucose 147(H) 70 - 130 mg/dL 08/28/2025 7:09 AM [facility] Comment:Serial Number: [id number] Blood 08/28/2025 7:07 AM EST 08/28/2025 7:09 AM EST us Linda Rubin MD POINT OF CARE TEST ORDERABLES Fi nal Result [facility]
[address] [place] [address], * Type & Screen (08/28/2025 6:38 AM EST) ABO Type A 08/28/2025 7:40 AM EST [facility]AT[facility] RH type Positive 08/28/2025 7:40 AM EST [facility] Antibody Screen Negative 08/28/2025 7:40 AM EST [facility] T&S Expiration Date 08/31/2025 11:59:59 PM 08/28/2025 7:40 AM EST [facility] Blood Venipuncture / Unknown 08/28/2025 6:38 AM EST 08/28/2025 7:06 AM EST Alma Rosa Lucas APRN BLOOD BANK TEST ORDERABLES Edited Result - Final [facility]
[address] [place] [address], * Blood Culture - Blood, Blood, Arterial Line (08/28/2025 6:38 AM EST) Pathologist [facility] Blood Culture No growth at 5 days 09/02/2025 7:00 AM EST [facility] Blood Arterial blood specimen / Unknown Venipuncture / Unknown 08/28/2025 6:38 AM EST 08/28/2025 6:53 AM EST Linda Rubin MD MICROBIOLOGY - GENERAL ORDERABLE S Final Result [facility]
[address] [place] [address], * ABO RH Specimen Verification (08/28/2025 6:13 AM EST) ABO Type A 08/28/2025 10:44 PM EST [facility] RH type Positive 08/28/2025 10:44 PM EST [facility] Blood Venipuncture / Unknown 08/28/2025 6:13 AM EST 08/28/2025 7:24 AM EST Linda Rubin MD BLOOD BANK TEST ORDERABLES Final Result [facility]
[address] [place] [address], * (ABNORMAL) Manual Differential (08/28/2025 6:13 AM EST) Neutrophil % 58.0 42.7 - 76.0 % 08/28/2025 7:23 AM [facility] Lymphocyte % 2.0(L) 19.6 - 45.3 % 08/28/2025 7:23 AM [facility] Monocyte % 1.0(L) 5.0 - 12.0 % 08/28/2025 7:23 AM [facility] Eosinophil % 0.0(L) 0.3 - 6.2 % 08/28/2025 7:23 AM [facility] Basophil % 0.0 0.0 - 1.5 % 08/28/2025 7:23 AM [facility] Bands % 33.0(H) 0.0 - 5.0 % 08/28/2025 7:23 AM [facility] Metamyelocyte % 6.0(H) 0.0 - 0.0 % 08/28/2025 7:23 AM [facility] Neutrophils Absolute 38.34(H) 1.70 - 7.00 10*3/mm3 08/28/2025 7:23 AM [facility] Lymphocytes Absolute 0.84 0.70 - 3.10 10*3/mm3 08/28/2025 7:23 AM [facility] Monocytes Absolute 0.42 0.10 - 0.90 10*3/mm3 08/28/2025 7:23 AM [facility] Eosinophils Absolute 0.00 0.00 - 0.40 10*3/mm3 08/28/2025 7:23 AM [facility] Basophils Absolute 0.00 0.00 - 0.20 10*3/mm3 08/28/2025 7:23 AM [facility] nRBC 0.0 0.0 - 0.2 /100 WBC 08/28/2025 7:23 AM [facility] RBC Morphology Normal Normal 08/28/2025 7:23 AM [facility] WBC Morphology Normal Normal 08/28/2025 7:23 AM [facility] Platelet Morphology Normal Normal 08/28/2025 7:23 AM [facility] Blood Line / Unknown 08/28/2025 6: 13 AM EST 08/28/2025 6:32 AM EST Nesha Flynnandry PICKLE PUMPER LAB BLOOD ORDERABLES Final Resul t [facility]
[address] [place] [address], * Fibrinogen (08/28/2025 6:13 AM EST) Fibrinogen 289 203 - 567 mg/dL 08/28/2025 7:24 AM [facility] Blood Line / Unknown 08/28/2025 6: 13 AM EST 08/28/2025 6:33 AM EST Alma Rosa Lucas PICKLE PUMPER LAB BLOOD ORDERABLES Final Result [facility]
[address] [place] [address], * (ABNORMAL) Protime-INR (08/28/2025 6:13 AM EST) Protime 18.2(H) 12.2 - 15.3 Seconds 08/28/2025 6:55 AM EST [facility] INR 1.41(H) 0.89 - 1.12 08/28/2025 6:55 AM EST [facility] Blood Line / Unknown 08/28/2025 6: 13 AM EST 08/28/2025 6:33 AM EST Alma Rosa Lucas APRN LAB BLOOD ORDERABLES Final Result Performing Organization Address [facility] Co de Phone Number [facility]
[address] [place] [address], * (ABNORMAL) STAT Lactic Acid, Reflex (08/28/2025 6:13 AM EST) Lactate 11.6(HH) 0.5 - 2.0 mmol/L 08/28/2025 7:07 AM EST [facility] Comment:Falsely depressed re sults may occur on samples drawn from patients receiving N-Acetylcysteine (NAC) or Metamizole. Blood Line / Unknown 08/28/2025 6: 13 AM EST 08/28/2025 6:33 AM EST Edilma Mike MD LAB BLOOD ORDERABLES Final Re sult Performing Organization Address [facility] Co de Phone Number [facility]
[address] [place] [address], * (ABNORMAL) Lipase (08/28/2025 6:13 AM EST) Lipase 80(H) 13 - 60 U/L 08/28/2025 7:08 AM EST [facility] Blood Line / Unknown 08/28/2025 6: 13 AM EST 08/28/2025 6:33 AM EST Hermes Jaramillo MD LAB BLOOD ORDERABLES Final Re sult Performing Organization Address City/[facility] Co de Phone Number [facility]
[address] [place] [address], * (ABNORMAL) Comprehensive Metabolic Panel (08/28/2025 6:13 AM EST) [facility] Glucose 67 65 - 99 mg/dL 08/28/2025 7:40 AM [facility] BUN 29.7(H) 8.0 - 23.0 mg/dL 08/28/2025 7:40 AM [facility] Creatinine 1.81(H) 0.76 - 1.27 mg/dL 08/28/2025 7:40 AM [facility] Sodium 147(H) 136 - 145 mmol/L 08/28/2025 7:40 AM [facility] Potassium 3.6 3.5 - 5.2 mmol/L 08/28/2025 7:40 AM [facility] Chloride 106 98 - 107 mmol/L 08/28/2025 7:40 AM [facility] CO2 15.5(L) 22.0 - 29.0 mmol/L 08/28/2025 7:40 AM [facility] Calcium 7.5(L) 8.6 - 10.5 mg/dL 08/28/2025 7:40 AM [facility] Total Protein 4.6(L) 6.0 - 8.5 g/dL 08/28/2025 7:40 AM [facility] Albumin 2.9(L) 3.5 - 5.2 g/dL 08/28/2025 7:40 AM [facility] ALT (SGPT) 235(H) 1 - 41 U/L 08/28/2025 7:40 AM [facility] AST (SGOT) 272(H) 1 - 40 U/L 08/28/2025 7:40 AM [facility] Alkaline Phosphatase 101 39 - 117 U/L 08/28/2025 7:40 AM [facility] Total Bilirubin 0.7 0.0 - 1.2 mg/dL 08/28/2025 7:40 AM [facility] Globulin 1.7 gm/dL 08/28/2025 7:40 AM EST [facility] Comment:Calculated Result A/G Ratio 1.7 g/dL 08/28/2025 7:40 AM EST [facility] BUN/Creatinine Ratio 16.4 7.0 - 25.0 08/28/2025 7:40 AM EST [facility] Anion Gap 25.5(H) 5.0 - 15.0 mmol/L 08/28/2025 7:40 AM EST [facility] eGFR 36.0(L) >60.0 mL/min/1.7 3 08/28/2025 7:40 AM EST [facility] Blood Line / Unknown 08/28/2025 6: 13 AM EST 08/28/2025 6:33 AM EST [facility] - 08/28/2025 7:40 AM EST GFR Categories in Chronic Kidney Disease (CKD) GFR Category GFR (mL/min/1.73) Interpretation G1 90 or greater Normal or high (1) G2 60-89 Mild decrease (1) G3a 45-59 Mild to moderate decrease G3b 30-44 Moderate to severe decrease G4 15-29 Severe decrease G5 14 or less Kidney failure (1)In the absence of evidence of kidney disease, neither GFR category G1 or G2 fulfill the criteria for CKD. eGFR calculation 2020 CKD-EPI creatinine equation, which does not include race as a factor Nesha Lopes ANTWON LAB BLOOD ORDERABLES Final Resul t [facility]
[address] [place] [address], * (ABNORMAL) CBC Auto Differential (08/28/2025 6:13 AM EST) WBC 42.13(HH) 3.40 - 10.80 10*3/mm3 08/28/2025 7:23 AM EST [facility] RBC 3.05(L) 4.14 - 5.80 10*6/mm3 08/28/2025 7:23 AM [facility] Hemoglobin 9.2(L) 13.0 - 17.7 g/dL 08/28/2025 7:23 AM [facility] Hematocrit 28.9(L) 37.5 - 51.0 % 08/28/2025 7:23 AM [facility] MCV 94.8 79.0 - 97.0 fL 08/28/2025 7:23 AM [facility] MCH 30.2 26.6 - 33.0 pg 08/28/2025 7:23 AM [facility] MCHC 31.8 31.5 - 35.7 g/dL 08/28/2025 7:23 AM [facility] RDW 14.3 12.3 - 15.4 % 08/28/2025 7:23 AM [facility] RDW-SD 49.5 37.0 - 54.0 fl 08/28/2025 7:23 AM [facility] MPV 10.1 6.0 - 12.0 fL 08/28/2025 7:23 AM [facility] Platelets 183 140 - 450 10*3/mm3 08/28/2025 7:23 AM [facility] Blood Line / Unknown 08/28/2025 6: 13 AM EST 08/28/2025 6:32 AM EST [facility] - 08/28/2025 7:23 AM EST The previously reported component NRBC is no longer being reported. Previous result was 0.0 /100 WBC (Reference Range: 0.0-0.2 /100 WBC) on 08/28/2025 at 0709 EST. us Nesha Moses KAPOOR LAB BLOOD ORDERABLES Final Resul t [facility]
[address] [place] [address], * (ABNORMAL) POC Glucose Once (08/28/2025 5:58 AM EST) Glucose 69(L) 70 - 130 mg/dL 08/28/2025 6:00 AM EST [facility] Comment:Serial Number: [id number] Blood 08/28/2025 5:58 AM EST 08/28/2025 6:00 AM EST Librado Bangura MD POINT OF CARE TEST ORDERABLES F inal Result [facility]
[address] [place] [address], * XR Chest 1 View (08/28/2025 5:35 AM EST) Anatomical Region Laterality Modality Body N/A Radiographic Radha ging 08/28/2025 5:44 AM EST Impressions 08/28/2025 5:45 AM EST Impression: Right internal jugular CVC catheter with the tip in the proximal SVC. No pneumothorax. No acute cardiopulmonary process. Electronically Signed: Nena Encarnacion MD 08/28/2025 5:45 AM EST Workstation ID: [id number] Narrative 08/28/2025 5:45 AM EST XR CHEST 1 VW Date of Exam: 08/28/2025 5:23 AM EST Indication: central line placement. Comparison: 08/27/2025. Findings: Right internal jugular CVC catheter present with the tip in the proximal SVC. There are no airspace consolidations. No pleural fluid. No pneumothorax. Nodular opacities within the left lung base on CT are not appreciated on this study. The pulmonary vasculature appears within normal limits. The cardiac and mediastinal silhouette appear unremarkable. No acute osseous abnormality identified. Procedure Note Nena Encarnacion MD - 08/28/2025 XR CHEST 1 VW Date of Exam: 08/28/2025 5:23 AM EST Indication: central line placement. Comparison: 08/27/2025. Findings: Right internal jugular CVC catheter present with the tip in the proximalSVC. There are no airspace consolidations. No pleural fluid. Nopneumothorax. Nodular opacities within the left lung base on CT are notappreciated on this study. The pulmonary vasculature appears within normal limits. The cardiac and mediastinalsilhouette appear unremarkable. No acute osseous abnormality identified. IMPRESSION: Impression: Right internal jugular CVC catheter with the tip in the proximal SVC. Nopneumothorax. No acute cardiopulmonary process. Electronically Signed: Nena Encarnacion MD 08/28/2025 5:45 AM EST Workstation ID: [id number] us Alma Rosa Lucas APRN IMG DIAGNOSTIC IMAGING ORD ERABLES Final Result * NC ARTL CATHJ/CANNULJ MNTR/TRANSFUSION SPX PRQ, HC INSERTION ARTERIAL CATH (08/28/2025 5:20 AM EST) Narrative Alma Rosa Lucas APRN - 08/28/2025 5:20 AM EST Alma Rosa Lucas APRN 08/28/2025 5:21 AM Insert Arterial Line Date/Time: 08/28/2025 5:20 AM Performed by: Alma Rosa Lucas APRN Authorized by: Alma Rosa Lucas APRN Archbald Protocol: Verbal consent obtained?: Yes Risks and benefits: Risks, benefits and alternatives were discussed Consent given by: Patient Patient states understanding of procedure being performed: Yes Patient's understanding of procedure matches consent: Yes Procedure consent matches procedure scheduled: Yes Relevant documents present and verified: Yes Test results available and properly labeled: Yes Imaging studies available: Yes Required items: Required blood products, implants, devices and special equipment available Patient identity confirmed: Verbally with patient, arm band and hospital-assigned identification number Time out: Immediately prior to the procedure a time out was called A time out verifies correct patient, procedure, equipment, system support developer and site/side marked as required: Preparation: Preparation: Patient was prepped and draped in usual sterile fashion Indications: Indications: multiple ABGs and hemodynamic monitoring Location: Location: Left radial Anesthesia: Patient sedated: Yes Analgesia: Hydromorphone Vital signs: Vital signs monitored during sedation Procedure Details: Ultrasound Guidance: yes The ultrasound was used for evaluation of possible access sites. Vessel patency was confirmed with the ultrasound. Needle entry into vessel was visualized in realtime with the ultrasound. Andrey's test normal?: Yes Needle gauge: 20 Seldinger technique: Seldinger technique used Number of attempts: 1 Post-procedure: Post-procedure: Line sutured and dressing applied Post-procedure CMS: Normal patient tolerated the procedure well with no immediate complications us Alma Rosa Lucas APRN IV THERAPY ORDERABLES Suzanna wright Result * NC INSJ NON-TUNNELED CENTRAL VENOUS CATH AGE 5 YR/>, HC CENTRAL LINE INSERTION (08/28/2025 5:19 AM EST) Narrative Alma Rosa Lucas APRN - 08/28/2025 5:19 AM EST Alma Rosa Lucas APRN 08/28/2025 6:32 AM Insert Central Line At Bedside Date/Time: 08/28/2025 5:19 AM Performed by: Alma Rosa Lucas APRN Authorized by: Alma Rosa Lucas APRN Consent: Verbal consent obtained Risks and benefits: risks, benefits and alternatives were discussed Consent given by: patient Patient understanding: patient states understanding of the procedure being performed Patient consent: the patient's understanding of the procedure matches consent given Procedure consent: procedure consent matches procedure scheduled Relevant documents: relevant documents present and verified Site marked: the operative site was marked Imaging studies: imaging studies available Required items: required blood products, implants, devices, and special equipment available Patient identity confirmed: verbally with patient, arm band and hospital-assigned identification number Time out: Immediately prior to procedure a time out was called to verify the correct patient, procedure, equipment, system support developer and site/side marked as required. Indications: vascular access Anesthesia: local infiltration Anesthesia: Local Anesthetic: lidocaine 1% without epinephrine Anesthetic total: 5 mL Sedation: Patient sedated: yes Analgesia: hydromorphone Vitals: Vital signs were monitored during sedation. Preparation: skin prepped with ChloraPrep Skin prep agent dried: skin prep agent completely dried prior to procedure Sterile barriers: all five maximum sterile barriers used - cap, mask, sterile gown, sterile gloves, and large sterile sheet Hand hygiene: hand hygiene performed prior to central venous catheter insertion Location details: right internal jugular Patient position: flat Catheter type: triple lumen Catheter size: 7 Fr Pre-procedure: landmarks identified Ultrasound guidance: yes Sterile ultrasound techniques: sterile gel and sterile probe covers were used Number of attempts: 1 Successful placement: yes Post-procedure: line sutured and dressing applied Assessment: blood return through all ports, placement verified by x-ray and no pneumothorax on x-ray Patient tolerance: patient tolerated the procedure well with no immediate complications Alma Rosa Whitfield Shayy KENNEYN PROCEDURE/MINOR SURGICAL O RDERABLES Final Result * (ABNORMAL) Blood Gas, Venous With Co-Ox (08/28/2025 2:22 AM EST) Site Nurse/Dr Draw 08/28/2025 2:22 AM EST [facility] THER[facility] pH, Venous 7.299(L) 7.310 - 7.410 pH Units 08/28/2025 2:22 AM EST [facility] THER[facility] pCO2, Venous 36.1(L) 41.0 - 51.0 mm Hg 08/28/2025 2:22 AM [facility] Comment:84 Value below refer ence range pO2, Venous 52.1 27.0 - 53.0 mm Hg 08/28/2025 2:22 AM EST [facility]ER[facility] HCO3, Venous 17.7(L) 22.0 - 28.0 mmol/L 08/28/2025 2:22 AM [facility]ER[facility] Base Excess, Venous -8.0(L) -2.0 - 2.0 mmol/L 08/28/2025 2:22 AM [facility] Hemoglobin, Blood Gas 10.2(L) 13.5 - 17.5 g/dL 08/28/2025 2:22 AM EST [facility] Oxyhemoglobin Venous 84.3 % 06/2025 2:22 AM EST [facility] Methemoglobin Venous 0.5 % 06/2025 2:22 AM EST [facility] Carboxyhemoglobin Venous 1.4 % 08/28/2025 2:22 AM [facility] CO2 Content 18.8(L) 22 - 33 mmol/L 08/28/2025 2:22 AM [facility] Temperature 37.0 08/28/2025 2:22 AM [facility] Barometric Pressure for Blood Gas 08/28/2025 2:22 AM EST [facility] Comment:N/A Modality Nasal Cannula 08/28/2025 2:22 AM EST [facility] FIO2 26 % 08/28/2025 2:22 AM EST [facility] Rate 0 Breaths/ minute 08/28/2025 2:22 AM EST [facility] PIP 0 cmH2O 08/28/2025 2:22 AM EST [facility] Comment:Meter: [id number] Radiator Cleaner: [id number] IPAP 0 cm H2O 08/28/2025 2:22 AM EST [facility] EPAP 0 cm H2O 08/28/2025 2:22 AM EST [facility] Venous Blood 08/28/2025 2:22 AM EST 08/28/2025 2:22 AM EST Librado Bangura MD LAB BLOOD ORDERABLES Final Resu lt [facility]
[address] [place] [address], * ECG 12 Lead Rhythm Change (08/28/2025 2:00 AM EST) QT Interval 316 ms ECG QTC Interval 478 ms ECG 08/28/2025 2:00 AM EST 08/30/2025 11:05 AM EST Narrative ECG - 08/30/2025 11:05 AM EST Test Reason : Rhythm Change Blood Pressure : */* mmHG Vent. 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 Rate : 138 BPM Atrial Rate : 138 BPM P-R Int : 130 ms QRS Dur : 86 ms QT Int : 316 ms P-R-T Axes : 25 -52 71 degrees QTcB Int : 478 ms Sinus tachycardia with premature atrial complexes Left axis deviation Inferior infarct (cited on or before 27-Aug-2025) Abnormal ECG When compared with ECG of 27-Aug-2025 20:15, (Unconfirmed) premature atrial complexes are now present Confirmed by MD Ellis Robert ([id number]) on 08/30/2025 11:05:34 AM Referred By: Confirmed By: Luís Ellis MD Alma Rosa Lucas APRN ECG ORDERABLES Final Resu lt ECG * Blood Culture - Blood, Hand, Left (08/28/2025 1:45 AM EST) Pathologist [facility] Blood Culture No growth at 5 days 09/02/2025 6:45 AM EST [facility] Blood Structure of left hand / Unknown Venipuncture / Unknown 08/28/2025 1:45 AM EST 08/28/2025 6:42 AM EST Linda Rubin MD MICROBIOLOGY - GENERAL ORDERABLE S Final Result [facility]
[address] [place] [address], * (ABNORMAL) Basic Metabolic Panel (08/28/2025 1:35 AM EST) Pathologist [facility] Glucose 78 65 - 99 mg/dL 08/28/2025 2:25 AM EST [facility] BUN 25.7(H) 8.0 - 23.0 mg/dL 08/28/2025 2:25 AM EST [facility] Creatinine 1.85(H) 0.76 - 1.27 mg/dL 08/28/2025 2:25 AM EST [facility] Sodium 143 136 - 145 mmol/L 08/28/2025 2:25 AM EST [facility] Potassium 3.7 3.5 - 5.2 mmol/L 08/28/2025 2:25 AM EST [facility] Chloride 106 98 - 107 mmol/L 08/28/2025 2:25 AM EST [facility] CO2 17.9(L) 22.0 - 29.0 mmol/L 08/28/2025 2:25 AM EST [facility] Calcium 7.6(L) 8.6 - 10.5 mg/dL 08/28/2025 2:25 AM [facility] BUN/Creatinine Ratio 13.9 7.0 - 25.0 08/28/2025 2:25 AM [facility] Anion Gap 19.1(H) 5.0 - 15.0 mmol/L 08/28/2025 2:25 AM [facility] eGFR 35.0(L) >60.0 mL/min/1.7 3 08/28/2025 2:25 AM [facility] Blood Line / Unknown 08/28/2025 1: 35 AM EST 08/28/2025 1:53 AM EST [facility] - 08/28/2025 2:25 AM EST GFR Categories in Chronic Kidney Disease (CKD) GFR Category GFR (mL/min/1.73) Interpretation G1 90 or greater Normal or high (1) G2 60-89 Mild decrease (1) G3a 45-59 Mild to moderate decrease G3b 30-44 Moderate to severe decrease G4 15-29 Severe decrease G5 14 or less Kidney failure (1)In the absence of evidence of kidney disease, neither GFR category G1 or G2 fulfill the criteria for CKD. eGFR calculation 2020 CKD-EPI creatinine equation, which does not include race as a factor Linda Rubin MD LAB BLOOD ORDERABLES Final Resul t Performing Organization Address City/State/[facility] de Phone Number [facility]
[address] [place] [address], * (ABNORMAL) STAT Lactic Acid, Reflex (08/28/2025 1:35 AM EST) Lactate 8.0(HH) 0.5 - 2.0 mmol/L 08/28/2025 2:38 AM EST [facility] Comment:Falsely depressed re sults may occur on samples drawn from patients receiving N-Acetylcysteine (NAC) or Metamizole. Blood Line / Unknown 08/28/2025 1: 35 AM EST 08/28/2025 1:53 AM EST Edilma Mike MD LAB BLOOD ORDERABLES Final Re sult Performing Organization Address [facility] de Phone Number [facility]
[address] [place] [address], * Magnesium (08/28/2025 1:35 AM EST) Magnesium 1.8 1.6 - 2.4 mg/dL 08/28/2025 2:25 AM EST [facility] Blood Line / Unknown 08/28/2025 1: 35 AM EST 08/28/2025 1:53 AM EST Linda Rubin MD LAB BLOOD ORDERABLES Final Resul t Performing Organization Address [facility] de Phone Number [facility]
[address] [place] [address], * POC Glucose Once (08/27/2025 11:12 PM EST) Glucose 97 70 - 130 mg/dL 08/27/2025 11:14 PM EST [facility] Comment:Serial Number: [id number] Blood 08/27/2025 11:1 2 PM EST 08/27/2025 11:14 PM EST us Librado Bangura MD POINT OF CARE TEST ORDERABLES F inal Result [facility]
[address] [place] [address], * (ABNORMAL) Blood Gas, Arterial With Co-Ox (08/27/2025 10:48 PM EST) Site Left Brachial 08/27/2025 10:49 PM EST [facility] Andrey's Test Positive 08/27/2025 10:49 PM EST [facility] pH, Arterial 7.278(L) 7.350 - 7.450 pH units 08/27/2025 10:49 PM EST [facility] Comment:84 Value below refer ence range pCO2, Arterial 32.9(L) 35.0 - 45.0 mm Hg 08/27/2025 10:49 PM EST [facility] Comment:84 Value below refer ence range pO2, Arterial 67.0(L) 83.0 - 108.0 mm Hg 08/27/2025 10:49 PM EST [facility] Comment:84 Value below refer ence range HCO3, Arterial 15.4(L) 20.0 - 26.0 mmol/L 08/27/2025 10:49 PM EST [facility] Base Excess, Arterial -10.4(L) 0.0 - 2.0 mmol/L 08/27/2025 10:49 PM EST [facility] Hemoglobin, Blood Gas 10.5(L) 13.5 - 17.5 g/dL 08/27/2025 10:49 PM EST [facility] Comment:84 Value below refer ence range Hematocrit, Blood Gas 32.2(L) 38.0 - 51.0 % 08/27/2025 10:49 PM EST [facility] Oxyhemoglobin 91.0(L) 94 - 99 % 08/27/2025 10:49 PM [facility] Comment:84 Value below refer ence range Methemoglobin 0.30 0.00 - 1.50 % 08/27/2025 10:49 PM EST [facility] Carboxyhemoglobin 1.4 0 - 2 % 025 10:49 PM [facility] CO2 Content 16.4(L) 22 - 33 mmol/L 08/27/2025 10:49 PM [facility] Temperature 37.0 08/27/2025 10:49 PM [facility] Barometric Pressure for Blood Gas 08/27/2025 10:49 PM [facility] Comment:N/A Modality Room Air 08/27/2025 10:49 PM [facility] FIO2 21 % 08/27/2025 10:49 PM [facility] Rate 0 Breaths/ minute 08/27/2025 10:49 PM [facility] PIP 0 cmH2O 08/27/2025 10:49 PM [facility] Comment:Meter: [id number] Radiator Cleaner: [id number] IPAP 0 cm H2O 08/27/2025 10:49 PM [facility] EPAP 0 cm H2O 08/27/2025 10:49 PM [facility] pH, Temp Corrected 7.278 pH Units 2024 10:49 PM [facility] pCO2, Temperature Corrected 32.9(L) 35 - 48 mm Hg 08/27/2025 10:49 PM [facility] pO2, Temperature Corrected 67.0(L) 83 - 108 mm Hg 08/27/2025 10:49 PM [facility] Arterial Blood 08/27/2025 10 :48 PM EST 08/27/2025 10:48 PM EST Librado Bangura MD LAB BLOOD ORDERABLES Final Resu lt [facility]
[address] [place] [address], [place] * Magnesium (08/27/2025 10:34 PM EST) Pathologist [facility] Magnesium 1.9 1.6 - 2.4 mg/dL 08/28/2025 1:51 AM EST [facility] Blood Venipuncture / Unknown 08/27/2025 10:34 PM EST 08/27/2025 11:26 PM EST Linda Rubin MD LAB BLOOD ORDERABLES Final Resul t [facility]
[address] [place] [address], [place] [phone] * Hepatitis Panel, Acute (08/27/2025 10:34 PM EST) Pathologist [facility] Hepatitis B Surface Ag Non-Reacti ve Non-Reacti ve 08/28/2025 12:05 AM EST [facility] Hep A IgM Non-Reacti ve Non-Reacti ve 08/28/2025 12:05 AM [facility] Hep B C IgM Non-Reacti ve Non-Reacti ve 08/28/2025 12:05 AM EST [facility] Hepatitis C Ab Non-Reacti ve Non-Reacti ve 08/28/2025 12:05 AM EST [facility] [facility] Blood Venipuncture / Unknown 08/27/2025 10:34 PM EST 08/27/2025 11:26 PM EST Narrative [facility] - 08/28/2025 12:05 AM EST Results may be falsely decreased if patient taking Biotin. Hermes Jaramillo MD LAB BLOOD ORDERABLES Final Re sult [facility]
[address] [place] [address], [place] [phone] * (ABNORMAL) High Sensitivity Troponin T 1Hr (08/27/2025 10:34 PM EST) HS Troponin T 34(H) <22 ng/L 08/27/2025 11:53 PM EST [facility] Troponin T Numeric Delta -5 ng/L 08/27/2025 11:53 PM EST [facility] Troponin T % Delta -13 Abnormal if >/= 20% 08/27/2025 11:53 PM EST [facility] Blood Venipuncture / Unknown 08/27/2025 10:34 PM EST 08/27/2025 11:26 PM EST Narrative [facility] - 08/27/2025 11:53 PM EST High Sensitive Troponin T Reference Range: <14.0 ng/L- Negative Female for AMI <22.0 ng/L- Negative Male for AMI >=14 - Abnormal Female indicating possible myocardial injury. >=22 - Abnormal Male indicating possible myocardial injury. Clinicians would have to utilize clinical acumen, EKG, Troponin, and serial changes to determine if it is an Acute Myocardial Infarction or myocardial injury due to an underlying chronic condition. Nesha Lopes APRN LAB BLOOD ORDERABLES Final Resul t Performing Organization Address City/[facility]/ZIP Co de Phone Number [facility]
[address] [place] [address], * (ABNORMAL) STAT Lactic Acid, Reflex (08/27/2025 10:34 PM EST) Pathologist [facility] Lactate 7.6(HH) 0.5 - 2.0 mmol/L 08/28/2025 12:35 AM EST [facility] Comment:Falsely depressed re sults may occur on samples drawn from patients receiving N-Acetylcysteine (NAC) or Metamizole. Blood Venipuncture / Unknown 08/27/2025 10:34 PM EST 08/27/2025 11:26 PM EST Edilma Mike MD LAB BLOOD ORDERABLES Final Re sult [facility]
[address] [place] [address], * CT Abdomen Pelvis Without Contrast (08/27/2025 10:13 PM EST) Anatomical Region Laterality Modality Abdomen, Pelvis N/A Computed Tomogra phy 08/27/2025 10:2 0 PM EST Impressions 08/27/2025 10:25 PM EST Impression: 1.Findings consistent with acute cholecystitis with significant dilatation of the gallbladder with wall thickening and significant stranding and free fluid present. No definite gallstone identified. There is dilatation of the common bile duct extending to the ampulla with stranding seen surrounding the common bile duct. 2.Mass present within the left lower lobe near the base measuring up to 3.4 cm with surrounding smaller nodules. Findings are suspicious for malignancy. No previous imaging available for comparison. 3.Ancillary findings as described above. Electronically Signed: Nena Encarnacion MD 08/27/2025 10:25 PM EST Workstation ID: [id number] Narrative 08/27/2025 10:[address] ABDOMEN PELVIS WO CONTRAST Date of Exam: 08/27/2025 10:08 PM EST Indication: Evaluate pancreatitis, possible cholecystitis. Comparison: None available. Technique: Axial CT images were obtained of the abdomen and pelvis without the administration of contrast. Reconstructed coronal and sagittal images were also obtained. Automated exposure control and iterative construction methods were used. Findings: Lung Bases: There is a mass present within the left lower lobe near the base measuring 2.7 x 3.4 cm (series 4 image 17). An additional adjacent pleural-based nodule is present measuring up to 1.3 cm (series 4 image 17). Surrounding smaller nodules are present. Right lung base is clear. No significant effusion. Limited evaluation of the solid organs due to lack of intravenous contrast. Limited evaluation of the hollow organs due to lack of oral contrast. Liver: Liver appears enlarged. No definite focal lesions. No evidence of ascites. Biliary/Gallbladder: The gallbladder is significantly dilated. Wall thickening is present with significant stranding and free fluid present. No definite gallstone identified. There is dilatation of the common bile duct measuring up to 1.4 cm. This extends to the ampulla. Stranding is seen surrounding the common bile duct. Spleen: Spleen is normal in size and CT density. Pancreas: No significant stranding identified surrounding the pancreas. No evidence of ductal dilatation. No focal mass or abnormal collection identified.. Kidneys: Kidneys are normal in size. Nonobstructing renal calculi are present bilaterally. No obstructing calculus identified. No evidence of hydronephrosis. Adrenals: Adrenal glands are unremarkable. Retroperitoneal/Lymph Nodes/Vasculature: No retroperitoneal adenopathy is identified. Gastrointestinal/Mesentery: The bowel loops are non-dilated without wall thickening or mass. Currie colonic diverticulosis is present. No significant inflammatory changes present. The appendix is not visualized.. No evidence of obstruction. No free air. No mesenteric fluid collections identified. Mesenteric vasculature appears unremarkable. No evidence of hernia. No significant stool burden. Bladder: The bladder is normal. Genital: Unremarkable Bony Structures: Visualized bony structures are consistent with the patient's age. No acute osseous abnormality. Procedure Note Nena Encarnacion MD - 08/27/2025 CT ABDOMEN PELVIS WO CONTRAST Date of Exam: 08/27/2025 10:08 PM EST Indication: Evaluate pancreatitis, possible cholecystitis. Comparison: None available. Technique: Axial CT images were obtained of the abdomen and pelvis withoutthe administration of contrast. Reconstructed coronal and sagittal imageswere also obtained. Automated exposure control and iterative constructionmethods were used. Findings: Lung Bases: There is a mass present within the left lower lobe near the base measuring2.7 x 3.4 cm (series 4 image 17). An additional adjacent pleural-basednodule is present measuring up to 1.3 cm (series 4 image 17). Surroundingsmaller nodules are present. Right lung base is clear. No significant effusion. Limited evaluation of the solid organs due to lack of intravenouscontrast. Limited evaluation of the hollow organs due to lack of oralcontrast. Liver: Liver appears enlarged. No definite focal lesions. No evidence ofascites. Biliary/Gallbladder: The gallbladder is significantly dilated. Wall thickening is present withsignificant stranding and free fluid present. No definite gallstoneidentified. There is dilatation of the common bile duct measuring up to1.4 cm. This extends to the ampulla. Stranding is seen surrounding the common bile duct. Spleen: Spleen is normal in size and CT density. Pancreas: No significant stranding identified surrounding the pancreas. No evidenceof ductal dilatation. No focal mass or abnormal collection identified.. Kidneys: Kidneys are normal in size. Nonobstructing renal calculi are presentbilaterally. No obstructing calculus identified. No evidence ofhydronephrosis. Adrenals: Adrenal glands are unremarkable. Retroperitoneal/Lymph Nodes/Vasculature: No retroperitoneal adenopathy is identified. Gastrointestinal/Mesentery: The bowel loops are non-dilated without wall thickening or mass. Pancolonic diverticulosis is present. No significant inflammatory changespresent. The appendix is not visualized.. No evidence of obstruction. Nofree air. No mesenteric fluid collections identified. Mesenteric vasculature appears unremarkable. No evidence ofhernia. No significant stool burden. Bladder: The bladder is normal. Genital: Unremarkable Bony Structures: Visualized bony structures are consistent with the patient's age. No acuteosseous abnormality. IMPRESSION: Impression: 1.Findings consistent with acute cholecystitis with significant dilatationof the gallbladder with wall thickening and significant stranding and freefluid present. No definite gallstone identified. There is dilatation ofthe common bile duct extending to the ampulla with stranding seen surrounding the common bile duct. 2.Mass present within the left lower lobe near the base measuring up to3.4 cm with surrounding smaller nodules. Findings are suspicious formalignancy. No previous imaging available for comparison. 3.Ancillary findings as described above. Electronically Signed: Nena Encarnacion MD 08/27/2025 10:25 PM EST Workstation ID: [id number] Hermes Jaramillo MD G CT ORDERABLES Final Resul t * ECG 12 Lead Chest Pain (08/27/2025 8:15 PM EST) QT Interval 358 ms ECG QTC Interval 457 ms ECG 08/27/2025 8:15 PM EST 08/29/2025 8:03 PM EST Narrative ECG - 08/29/2025 8:03 PM EST Test Reason : Chest Pain Blood Pressure : */* mmHG Vent. Rate : 98 BPM Atrial Rate : 98 BPM P-R Int : 136 ms QRS Dur : 84 ms QT Int : 358 ms P-R-T Axes : 69 -36 43 degrees QTcB Int : 457 ms Normal sinus rhythm Left axis deviation Inferior infarct , age undetermined Abnormal ECG No previous ECGs available Confirmed by Luz Marina Bob ([id number]) on 08/29/2025 8:03:54 PM Referred By: Confirmed By: Lu zMarina Bob Procedure Note Luz Marina Bob MD - 08/29/2025 Test Reason : Chest Pain Blood Pressure : */* mmHG Vent. Rate : 98 BPM Atrial Rate : 98 BPM P-R Int : 136 ms QRS Dur : 84 ms QT Int : 358 ms P-R-T Axes : 69 -36 43 degrees QTcB Int : 457 ms Normal sinus rhythm Left axis deviation Inferior infarct , age undetermined Abnormal ECG No previous ECGs available Confirmed by Luz Marina Bob ([id number]) on 08/29/2025 8:03:54 PM Referred By: Confirmed By: Luz Marina Bob Nesha Lopes APRN ECG ORDERABLES Final Result ECG * Iron Profile + Ferritin (08/27/2025 7:43 PM EST) Iron 86 59 - 158 mcg/dL 08/27/2025 10:04 PM [facility] Iron Saturation (TSAT) 28 20 - 50 % 08/27/2025 10:04 PM EST [facility] Transferrin 209 200 - 360 mg/dL 08/27/2025 10:04 PM EST [facility] TIBC 311 298 - 536 mcg/dL 08/27/2025 10:04 PM [facility] Ferritin 160.00 30.00 - 400.00 ng/mL 08/27/2025 10:04 PM [facility] Blood Venipuncture / Unknown 08/27/2025 7:43 PM EST 08/27/2025 7:53 PM EST [facility] - 08/27/2025 10:04 PM EST Results may be falsely decreased if patient taking Biotin. Librado Bangura MD LAB BLOOD ORDERABLES Final Resu lt Performing Organization Address City/[facility]/ZIP Co de Phone Number [facility]
[address] [place] [address], * (ABNORMAL) High Sensitivity Troponin T (08/27/2025 7:43 PM EST) Pathologist [facility] HS Troponin T 39(H) <22 ng/L 08/27/2025 8:56 PM EST [facility] Blood Venipuncture / Unknown 08/27/2025 7:43 PM EST 08/27/2025 7:53 PM EST [facility] - 08/27/2025 8:56 PM EST High Sensitive Troponin T Reference Range: <14.0 ng/L- Negative Female for AMI <22.0 ng/L- Negative Male for AMI >=14 - Abnormal Female indicating possible myocardial injury. >=22 - Abnormal Male indicating possible myocardial injury. Clinicians would have to utilize clinical acumen, EKG, Troponin, and serial changes to determine if it is an Acute Myocardial Infarction or myocardial injury due to an underlying chronic condition. Nesha Moses KAPOOR LAB BLOOD ORDERABLES Final Resul t Performing Organization Address [facility] Co de Phone Number [facility]
[address] [place] [address], * (ABNORMAL) CBC Auto Differential (08/27/2025 7:43 PM EST) Pathologist [facility] WBC 15.69(H) 3.40 - 10.80 10*3/mm3 08/27/2025 7:56 PM EST [facility] RBC 3.66(L) 4.14 - 5.80 10*6/mm3 08/27/2025 7:56 PM EST [facility] Hemoglobin 11.1(L) 13.0 - 17.7 g/dL 08/27/2025 7:56 PM EST [facility] Hematocrit 34.2(L) 37.5 - 51.0 % 08/27/2025 7:56 PM [facility] MCV 93.4 79.0 - 97.0 fL 08/27/2025 7:56 PM [facility] MCH 30.3 26.6 - 33.0 pg 08/27/2025 7:56 PM [facility] MCHC 32.5 31.5 - 35.7 g/dL 08/27/2025 7:56 PM [facility] RDW 13.5 12.3 - 15.4 % 08/27/2025 7:56 PM [facility] RDW-SD 46.2 37.0 - 54.0 fl 08/27/2025 7:56 PM [facility] MPV 9.2 6.0 - 12.0 fL 08/27/2025 7:56 PM [facility] Platelets 171 140 - 450 10*3/mm3 08/27/2025 7:56 PM [facility] Neutrophil % 93.0(H) 42.7 - 76.0 % 08/27/2025 7:56 PM [facility] Lymphocyte % 2.7(L) 19.6 - 45.3 % 08/27/2025 7:56 PM [facility] Monocyte % 3.1(L) 5.0 - 12.0 % 08/27/2025 7:56 PM [facility] Eosinophil % 0.0(L) 0.3 - 6.2 % 08/27/2025 7:56 PM [facility] Basophil % 0.2 0.0 - 1.5 % 08/27/2025 7:56 PM [facility] Immature Grans % 1.0(H) 0.0 - 0.5 % 08/27/2025 7:56 PM [facility] Neutrophils, Absolute 14.59(H) 1.70 - 7.00 10*3/mm3 08/27/2025 7:56 PM [facility] Lymphocytes, Absolute 0.43(L) 0.70 - 3.10 10*3/mm3 08/27/2025 7:56 PM EST [facility] Monocytes, Absolute 0.49 0.10 - 0.90 10*3/mm3 08/27/2025 7:56 PM EST [facility] Eosinophils, Absolute 0.00 0.00 - 0.40 10*3/mm3 08/27/2025 7:56 PM EST [facility] Basophils, Absolute 0.03 0.00 - 0.20 10*3/mm3 08/27/2025 7:56 PM EST [facility] Immature Grans, Absolute 0.15(H) 0.00 - 0.05 10*3/mm3 08/27/2025 7:56 PM EST [facility] nRBC 0.0 0.0 - 0.2 /100 WBC 08/27/2025 7:56 PM EST [facility] Blood Venipuncture / Unknown 08/27/2025 7:43 PM EST 08/27/2025 7:53 PM EST Edilma Mike MD LAB BLOOD ORDERABLES Final Re sult Performing Organization Address City/[facility]/ZIP Co de Phone Number [facility]
[address] [place] [address], [place] [phone] * (ABNORMAL) Lipase (08/27/2025 7:43 PM EST) Lipase 576(H) 13 - 60 U/L 08/27/2025 8:34 PM EST [facility] Blood Venipuncture / Unknown 08/27/2025 7:43 PM EST 08/27/2025 7:53 PM EST Edilma Mike MD LAB BLOOD ORDERABLES Final Re sult Performing Organization Address City/[facility]/ZIP Co de Phone Number [facility]
[address] [place] [address], [place] [phone] * (ABNORMAL) Lactic Acid, Plasma (08/27/2025 7:43 PM EST) Lactate 7.2(HH) 0.5 - 2.0 mmol/L 08/27/2025 8:22 PM EST [facility] Comment:Falsely depressed re sults may occur on samples drawn from patients receiving N-Acetylcysteine (NAC) or Metamizole. Blood Venipuncture / Unknown 08/27/2025 7:43 PM EST 08/27/2025 7:53 PM EST us Edilma Mike MD LAB BLOOD ORDERABLES Final Re sult [facility]
[address] [place] [address], * (ABNORMAL) Procalcitonin (08/27/2025 7:43 PM EST) Pathologist [facility] Procalcitonin 68.30(H) 0.00 - 0.25 ng/mL 08/27/2025 8:23 PM EST [facility] Blood Venipuncture / Unknown 08/27/2025 7:43 PM EST 08/27/2025 7:53 PM EST Narrative [facility] - 08/27/2025 8:23 PM EST As a Marker for Sepsis (Non-Neonates): 1. <0.5 ng/mL represents a low risk of severe sepsis and/or septic shock. 2. >2 ng/mL represents a high risk of severe sepsis and/or septic shock. As a Marker for Lower Respiratory Tract Infections that require antibiotic therapy: PCT on Admission Antibiotic Therapy 6-12 Hrs later >0.5 Strongly Recommended >0.25 - <0.5 Recommended 0.1 - 0.25 Discouraged Remeasure/reassess PCT <0.1 Strongly Discouraged Remeasure/reassess PCT As 28 day mortality risk marker: Change in Procalcitonin Result (>80% or <=80%) if Day 0 (or Day 1) and Day 4 values are available. Refer to http://www.vlnqwh-byi-yghztglwvt.com Change in PCT <=80% A decrease of PCT levels below or equal to 80% defines a positive change in PCT test result representing a higher risk for 28-day all-cause mortality of patients diagnosed with severe sepsis for septic shock. Change in PCT >80% A decrease of PCT levels of more than 80% defines a negative change in PCT result representing a lower risk for 28-day all-cause mortality of patients diagnosed with severe sepsis or septic shock. us Edilma Mike MD LAB BLOOD ORDERABLES Final Re sult [facility]
[address] [place] [address], * (ABNORMAL) Comprehensive Metabolic Panel (08/27/2025 7:43 PM EST) Glucose 110(H) 65 - 99 mg/dL 08/27/2025 8:23 PM EST [facility] BUN 20.6 8.0 - 23.0 mg/dL 08/27/2025 8:23 PM EST [facility] Creatinine 1.49(H) 0.76 - 1.27 mg/dL 08/27/2025 8:23 PM EST [facility] Sodium 143 136 - 145 mmol/L 08/27/2025 8:23 PM EST [facility] Potassium 3.5 3.5 - 5.2 mmol/L 08/27/2025 8:23 PM EST [facility] Chloride 110(H) 98 - 107 mmol/L 08/27/2025 8:23 PM EST [facility] CO2 15.6(L) 22.0 - 29.0 mmol/L 08/27/2025 8:23 PM EST [facility] Calcium 8.1(L) 8.6 - 10.5 mg/dL 08/27/2025 8:23 PM EST [facility] Total Protein 5.4(L) 6.0 - 8.5 g/dL 08/27/2025 8:23 PM EST [facility] Albumin 3.4(L) 3.5 - 5.2 g/dL 08/27/2025 8:23 PM [facility] ALT (SGPT) 275(H) 1 - 41 U/L 08/27/2025 8:23 PM [facility] AST (SGOT) 456(H) 1 - 40 U/L 08/27/2025 8:23 PM [facility] Alkaline Phosphatase 106 39 - 117 U/L 08/27/2025 8:23 PM [facility] Total Bilirubin 1.0 0.0 - 1.2 mg/dL 08/27/2025 8:23 PM [facility] Globulin 2.0 gm/dL 08/27/2025 8:23 PM [facility] Comment:Calculated Result A/G Ratio 1.7 g/dL 08/27/2025 8:23 PM [facility] BUN/Creatinine Ratio 13.8 7.0 - 25.0 08/27/2025 8:23 PM [facility] Anion Gap 17.4(H) 5.0 - 15.0 mmol/L 08/27/2025 8:23 PM [facility] eGFR 45.4(L) >60.0 mL/min/1.7 3 08/27/2025 8:23 PM [facility] Blood Venipuncture / Unknown 08/27/2025 7:43 PM EST 08/27/2025 7:53 PM EST [facility] - 08/27/2025 8:23 PM EST GFR Categories in Chronic Kidney Disease (CKD) GFR Category GFR (mL/min/1.73) Interpretation G1 90 or greater Normal or high (1) G2 60-89 Mild decrease (1) G3a 45-59 Mild to moderate decrease G3b 30-44 Moderate to severe decrease G4 15-29 Severe decrease G5 14 or less Kidney failure (1)In the absence of evidence of kidney disease, neither GFR category G1 or G2 fulfill the criteria for CKD. eGFR calculation 2020 CKD-EPI creatinine equation, which does not include race as a factor us Edilma Mike MD LAB BLOOD ORDERABLES Final Re sult [facility]
[address] [place] [address], * LABS SCANNED (08/27/2025) Result [facility] LAB BLOOD ORDERABLES Final Re sult * IMAGING SCANNED (08/27/2025) Anatomical Region Laterality Modality Radiographic Radha ging Result [facility] IMG DIAGNOSTIC IMAGING ORDERA BLES Final Result * IMAGING SCANNED (08/27/2025) Anatomical Region Laterality Modality Radiographic Radha ging Result [facility] IMG DIAGNOSTIC IMAGING ORDERA BLES Final Result * IMAGING SCANNED (08/27/2025) Anatomical Region Laterality Modality Radiographic Radha ging Result [facility] IMG DIAGNOSTIC IMAGING ORDERA BLES Final Result documented in this encounter Visit Diagnoses Diagnosis Acute pancreatitis- Primary Acute pancreatitis, unspecified complication status, unspecified pancreatitis type Cholecystitis Cholecystitis, unspecified Oropharyngeal dysphagia Dysphagia, oropharyngeal phase Vasovagal syncope Syncope and collapse HTN (hypertension) Unspecified essential hypertension Mixed hyperlipidemia COPD (chronic obstructive pulmonary disease) Chronic airway obstruction, not elsewhere classified Former tobacco use History of prostate cancer Personal history of malignant neoplasm of prostate BPH with obstruction/lower urinary tract symptoms Respiratory insufficiency Other dyspnea and respiratory abnormality Shock Unspecified shock documented in this encounter Admitting Diagnoses Diagnosis Pancreatitis Acute pancreatitis documented in this encounter Administered Medications Inactive Administered Medications - up to 3 most recent administrations Medication Order MAR Action Action Date Dose Rate Site acetaminophen (TYLENOL) 160 MG/5ML oral solution 650 mg 650 mg, Oral, Every 4 Hours PRN, Mild Pain, Starting on Sunshine 09/01/25 at 1153, If given for fever, use fever parameter: fever greater than 100.4 F Based on patient request - if ordered for moderate or severe pain, provider allows for administration of a medication prescribed for a lower pain scale. Do not exceed 4 grams of acetaminophen in a 24 hr period. Max dose of 2gm for AST/ALT greater than 120 units/L. If given for pain, use the following pain scale: Mild Pain = Pain Score of 1-3, CPOT 1-2 Moderate Pain = Pain Score of 4-6, CPOT 3-4 Severe Pain = Pain Score of 7-10, CPOT 5-8 albumin human 25 % IV SOLN 50 g 50 g, Intravenous, Once, On Carmichaels 08/28/25 at 0700, For 1 dose, Indications: Crystalloid Refractory ShockIndications:Crystalloid Refractory Shock New Bag 08/28/2025 6:45 AM EST 50 g arformoterol (BROVANA) nebulizer solution 15 mcg 15 mcg, Nebulization, 2 Times Daily - RT, First dose on Carmichaels 08/28/25 at 0145, Include Respiratory Treatment Education Keep refrigerated. Given 09/04/2025 10:51 PM EST 15 mcg Given 09/04/2025 8:33 AM EST 15 mcg Given 09/03/2025 8:55 PM EST 15 mcg barium sulfate (VARIBAR PUDDING) oral paste 20 mL 20 mL, Oral, Once in Imaging, On Fri09/02/25 at 1230, For 1 dose, (BKC) Shake well before administration. Given 09/02/2025 11:34 AM EST 20 mL barium sulfate (VARIBAR PUDDING) oral paste 20 mL 20 mL, Oral, Once in Imaging, On Fri09/05/25 at 1000, For 1 dose, (BKC) Shake well before administration. Given 09/05/2025 9:05 AM EST 20 mL barium sulfate (VARIBAR THIN LIQUID) oral suspension 100 mL 100 mL, Oral, Once in Imaging, On Fri09/02/25 at 1230, For 1 dose, (BKC) Shake well before administration. Given 09/02/2025 11:34 AM EST 100 mL barium sulfate (VARIBAR THIN LIQUID) oral suspension 100 mL 100 mL, Oral, Once in Imaging, On Fri09/05/25 at 1000, For 1 dose, (BKC) Shake well before administration. Given 09/05/2025 9:05 AM EST 100 mL barium sulfate oral suspension 10 mL 10 mL, Oral, Once in Imaging, On Fri09/02/25 at 1230, For 1 dose, (BKC) Shake well before administration. Given 09/02/2025 11:33 AM EST 10 mL barium sulfate oral suspension 10 mL 10 mL, Oral, Once in Imaging, On 09/05/25 at 1000, For 1 dose, (BKC) Shake well before administration. Given 09/05/2025 9:05 AM EST 10 mL barium sulfate oral suspension 50 mL 50 mL, Oral, Once in Imaging, On Fri09/02/25 at 1230, For 1 dose, (BKC) Shake well before administration. Given 09/02/2025 11:33 AM EST 50 mL bisacodyl (DULCOLAX) suppository 10 mg 10 mg, Rectal, Daily PRN, Constipation, Use if bisacodyl oral is ineffective, Starting on Sunshine 09/01/25 at 1152, Use if no bowel movement after 12 hours. Hold for diarrhea budesonide (PULMICORT) nebulizer solution 0.5 mg 0.5 mg, Nebulization, 2 Times Daily - RT, First dose on 08/28/25 at 1045, Do not shake. Protect from light. Given 09/04/2025 10:51 PM EST 0.5 mg Given 09/04/2025 8:33 AM EST 0.5 mg Given 09/03/2025 9:00 PM EST 0.5 mg calcium gluconate 1000 Mg/50ml 0.675% NaCl IV SOLN 1,000 mg, Intravenous, Once, On 08/28/25 at 0030, For 1 dose New Bag 08/28/2025 12:48 AM EST 1,000 mg dextrose (D50W) (25 g/50 mL) IV injection 25 g 25 g, Intravenous, Every 15 Minutes PRN, Low Blood Sugar, Blood Sugar Less Than 70, Patient Has IV Access - Unresponsive, NPO or Unable To Safely Swallow, Starting on 08/28/25 at 0623 Given 08/28/2025 6:38 AM EST 25 g fentaNYL 2500 mcg/250 mL NS infusion 50-300 mcg/hr (5-30 mL/hr), Intravenous, Titrated, Starting on 08/28/25 at 1100, For 7 days, Start infusion at 50 mcg/hr and titrate up or down by 12.5 - 50 mcg/hr every 5 - 10 minutes for NRS 7-10 or CPOT 5-8. Max. dose 300 mcg/hr. Caution: Look alike/sound alike drug alert If given for pain, use the following pain scale: Mild Pain = Pain Score of 1-3, CPOT 1-2 Moderate Pain = Pain Score of 4-6, CPOT 3-4 Severe Pain = Pain Score of 7-10, CPOT 5-8, Titration Indication: Sedation Rate/Dose Change 08/29/2025 5:14 PM EST 100 mcg/hr 10 mL/hr New Bag 08/29/2025 10:24 AM EST 200 mcg/hr 20 mL/hr New Bag 08/28/2025 10:13 PM EST 200 mcg/hr 20 mL/hr furosemide (LASIX) injection 40 mg 40 mg, Intravenous, Once, On Fri09/02/25 at 1615, For 1 dose, Doses over 100 mg will dispense an IVPB bolus. Given 09/02/2025 6:06 PM EST 40 mg furosemide (LASIX) injection 40 mg 40 mg, Intravenous, Once, On 09/03/25 at 1400, For 1 dose, Doses over 100 mg will dispense an IVPB bolus. Given 09/03/2025 2:12 PM EST 40 mg glucagon (GLUCAGEN) injection 1 mg 1 mg, Subcutaneous, Every 15 Minutes PRN, Low Blood Sugar, Blood Glucose Less Than 70 - Patient Without IV Access - Unresponsive, NPO or Unable To Safely Swallow, Starting on 08/28/25 at 0623, Reconstitute powder for injection by adding 1 mL of sales order clerk-supplied sterile diluent or sterile water for injection to a vial containing 1 mg of the drug, to provide solutions containing 1 mg/mL. Shake vial gently to dissolve. heparin (porcine) 5000 UNIT/ML injection 5,000 Units 5,000 Units, Subcutaneous, Every 8 Hours Scheduled, First dose on 08/28/25 at 1400, Indications: VTE ProphylaxisIndications:VTE Prophylaxis Given 09/05/2025 6:32 AM EST 5,000 Units Right Lower Abdomen Given 09/04/2025 9:27 PM EST 5,000 Units R ight Upper Abdomen Given 09/04/2025 2:13 PM EST 5,000 Units L eft Lower Abdomen hydrALAZINE (APRESOLINE) injection 10 mg 10 mg, Intravenous, Every 6 Hours PRN, High Blood Pressure, for SBP greater than 160, Starting on 08/30/25 at 2007, Hold for SBP less than 100, DBP less than 60. Caution: Look alike/sound alike drug alert Given 09/02/2025 2:06 PM EST 10 mg Given 09/02/2025 4:50 AM EST 10 mg Given 08/31/2025 2:20 PM EST 10 mg HYDROcodone-acetaminophen (NORCO) 5-325 MG per tablet 1 tablet 1 tablet, Oral, Every 6 Hours PRN, Moderate Pain, Starting on 08/27/25 at 2028, For 1 dose, Based on patient request - if ordered for moderate or severe pain, provider allows for administration of a medication prescribed for a lower pain scale. [SHANDA] Do not exceed 4 grams of acetaminophen in a 24 hr period. Max dose of 2gm for AST/ALT greater than 120 units/L If given for pain, use the following pain scale: Mild Pain = Pain Score of 1-3, CPOT 1-2 Moderate Pain = Pain Score of 4-6, CPOT 3-4 Severe Pain = Pain Score of 7-10, CPOT 5-8 Given 08/27/2025 9:30 PM EST 1 tablet HYDROmorphone (DILAUDID) injection 0.5 mg 0.5 mg, Intravenous, Every 4 Hours PRN, Severe Pain, Starting on 08/27/25 at 2028, For 5 days, Based on patient request - if ordered for moderate or severe pain, provider allows for administration of a medication prescribed for a lower pain scale. If given for pain, use the following pain scale: Mild Pain = Pain Score of 1-3, CPOT 1-2 Moderate Pain = Pain Score of 4-6, CPOT 3-4 Severe Pain = Pain Score of 7-10, CPOT 5-8 Given 08/27/2025 8:59 PM EST 0.5 mg HYDROmorphone (DILAUDID) injection 0.5 mg 0.5 mg, Intravenous, Every 2 Hours PRN, Severe Pain, Starting on 08/28/25 at 0147, Based on patient request - if ordered for moderate or severe pain, provider allows for administration of a medication prescribed for a lower pain scale. If given for pain, use the following pain scale: Mild Pain = Pain Score of 1-3, CPOT 1-2 Moderate Pain = Pain Score of 4-6, CPOT 3-4 Severe Pain = Pain Score of 7-10, CPOT 5-8 Given 08/31/2025 4:25 PM EST 0 .5 mg Given 08/30/2025 9:09 PM EST 0.5 mg Given 08/30/2025 3:15 PM EST 0.5 mg hydrOXYzine (ATARAX) tablet 25 mg 25 mg, Oral, 3 Times Daily PRN, Allergies, Anxiety, Sleep, Starting on 08/29/25 at 2342, Caution: Look alike/sound alike drug alert Given 08/29/2025 11:53 PM EST 25 mg hydrOXYzine (ATARAX) tablet 25 mg 25 mg, Oral, 3 Times Daily PRN, Allergies, Anxiety, Sleep, Starting on Sunshine 09/01/25 at 1153, Caution: Look alike/sound alike drug alert ipratropium-albuterol (DUO-NEB) nebulizer solution 3 mL 3 mL, Nebulization, Every 6 Hours PRN, Shortness of Air, Starting on 08/27/25 at 2109, Include Respiratory Treatment Education lactated ringers bolus 1,000 mL 1,000 mL, Intravenous, at 1,000 mL/hr, Administer over 1 Hours, Once, On 08/28/25 at 0130, For 1 dose New Bag 08/28/2025 1:35 AM EST 1,000 mL 1000 mL/hr lactated ringers infusion 150 mL/hr, Intravenous, Continuous, Starting on 08/27/25 at 2230, For 24 hours Rate/Dose Change 08/28/2025 12:51 AM EST 150 mL/hr 150 mL/hr New Bag 08/27/2025 11:30 PM EST 100 mL/hr 100 mL/hr lisinopril (PRINIVIL,ZESTRIL) tablet 20 mg 20 mg, Oral, Every 24 Hours Scheduled, First dose on Fri08/30/25 at 1615, Hold for SBP less than 100, DBP less than 60. Given 08/31/2025 9:12 AM EST 20 mg Given 08/30/2025 3:56 PM EST 20 mg lisinopril (PRINIVIL,ZESTRIL) tablet 20 mg 20 mg, Oral, Once, On Fri08/31/25 at 1030, For 1 dose, Hold for SBP less than 100, DBP less than 60. Given 08/31/2025 10:26 AM EST 20 mg lisinopril (PRINIVIL,ZESTRIL) tablet 40 mg 40 mg, Nasogastric, Every 24 Hours Scheduled, First dose (after last modification) on Fri09/01/25 at 0900, Hold for SBP less than 100, DBP less than 60. Given 09/01/2025 9:28 AM EST 40 mg lisinopril (PRINIVIL,ZESTRIL) tablet 40 mg 40 mg, Oral, Every 24 Hours Scheduled, First dose (after last modification) on Fri09/02/25 at 0900, Hold for SBP less than 100, DBP less than 60. Given 09/05/2025 8:02 AM EST 40 mg Given 09/04/2025 8:21 AM EST 40 mg Given 09/03/2025 8:27 AM EST 40 mg magnesium sulfate 2g/50 mL (PREMIX) infusion 2 g, Intravenous, Once, On 08/28/25 at 0330, For 1 dose New Bag 08/28/2025 2:55 AM EST 2 g melatonin tablet 5 mg 5 mg, Nasogastric, Nightly PRN, Sleep, Starting on Fri08/29/25 at 0925 Given 08/29/2025 9:48 PM EST 5 mg melatonin tablet 5 mg 5 mg, Oral, Nightly PRN, Sleep, Starting on Fri09/01/25 at 1153 montelukast (SINGULAIR) tablet 10 mg 10 mg, Nasogastric, Nightly, First dose (after last modification) on Fri08/29/25 at 2100 Given 08/31/2025 9:47 PM EST 10 mg Given 08/30/2025 9:10 PM EST 10 mg Given 08/29/2025 8:49 PM EST 10 mg montelukast (SINGULAIR) tablet 10 mg 10 mg, Oral, Nightly, First dose (after last modification) on Fri09/01/25 at 2100 Given 09/04/2025 9:27 PM EST 10 mg Given 09/03/2025 9:29 PM EST 10 mg Given 09/02/2025 9:15 PM EST 10 mg mupirocin (BACTROBAN) 2 % nasal ointment 1 Application 1 Application, Each Nare, 2 Times Daily, First dose on 08/28/25 at 1445, For 5 days, Administer for 5 days, even if patient transferred out of critical care. MUPIROCIN APPLICATION: 1. Place patient's bed at 30 degrees, if tolerated. 2. Wash your hands with warm soapy water or use hand entry level sales consultant. 3. Open the tube of mupirocin 2%. 4. Squeeze about 0.5 g (blueberry-size) of mupirocin from the tube onto a sterile applicator or a cotton swab. 5. Apply the swab directly into nostril. Ensure coating of the sides of the nostril. 6. Repeat with second sterile applicator for other nostril. 7. Gently press the sides of the nostrils together and massage gently for 60 seconds. ([facility]) Given 09/01/2025 9:26 PM EST 1 Ap plication Given 09/01/2025 11:47 AM EST 1 Application Given 08/31/2025 9:47 PM EST 1 Application naloxone (NARCAN) injection 0.4 mg 0.4 mg, Intravenous, Every 5 Minutes PRN, Opioid Reversal, Starting on 08/27/25 at 2030 nitroglycerin (NITROSTAT) SL tablet 0.4 mg 0.4 mg, Sublingual, Every 5 Minutes PRN, Chest Pain, Starting on 08/27/25 at 1931, If Pain Unrelieved After 3 Doses Notify MD May administer up to 3 doses per episode. Hold if SBP less than 100. norepinephrine (LEVOPHED) 8 mg in 250 mL NS infusion (premix) 0.02-0.3 mcg/kg/min 93.4 kg (3.5025-52.5375 mL/hr, rounded to 3.5-52.54 mL/hr), Intravenous, Titrated, Starting on 08/28/25 at 0045, Initiate infusion at 0.02 mcg/kg/min and titrate up or down by 0.02 - 0.06 mcg/kg/min every 5 - 10 minutes to use the lowest dose possible to maintain a MAP greater than or equal to 65 mmHg AND SBP >100. Contact provider if unable to maintain MAP target or SBP target at the maximum dose or if MAP is greater than 95 mmHg. Once MAP target achieved, obtain vitals a minimum of every 30 minutes. Must contact provider and obtain new order to exceed dose of 0.3 mcg/kg/min. Concentration 8 mg/250 mL Central line preferred, if unavailable use large bore IV access with frequent nurse monitoring of IV site. Rate/Dose Change 08/28/2025 2:12 AM EST 0.05 mcg/kg/min 8.76 mL/hr Rate/Dose Change 08/28/2025 2:00 AM EST 0.1 mcg/kg/min 17. 51 mL/hr Rate/Dose Change 08/28/2025 1:45 AM EST 0.08 mcg/kg/min 14 .01 mL/hr ondansetron (ZOFRAN) injection 4 mg 4 mg, Intravenous, Every 6 Hours PRN, Nausea, Vomiting, Starting on Fri08/30/25 at 1021, If BOTH ondansetron (ZOFRAN) and promethazine (PHENERGAN) are ordered use ondansetron first and THEN promethazine IF ondansetron is ineffective. pantoprazole (PROTONIX) EC tablet 40 mg 40 mg, Oral, Every Power Shovel Mechanic, First dose on 09/04/25 at 0600, Do not crush or chew the capsules or tablets. The drug may not work as designed if the capsule or tablet is crushed or chewed. Swallow whole. Swallow whole; do not crush, split, or chew. Given 09/05/2025 6:32 AM EST 40 mg Given 09/04/2025 5:11 AM EST 40 mg pantoprazole (PROTONIX) injection 40 mg 40 mg, Intravenous, Every Power Shovel Mechanic, First dose on 08/29/25 at 0645, Dilute with 10 mL of 0.9% NaCl and give IV push over 2 minutes., Indications: Gastroesophageal Reflux DiseaseIndications:Gastroesophageal Reflux Disease Given 09/03/2025 5:30 AM EST 40 mg Given 09/02/2025 4:52 AM EST 40 mg Given 09/01/2025 5:20 AM EST 40 mg phenylephrine (KAYLYNN-SYNEPHRINE) 50 mg in sodium chloride 0.9 % 250 mL infusion 0.5-3 mcg/kg/min 93.4 kg (14.01-84.06 mL/hr, rounded to 14-84.1 mL/hr), Intravenous, Titrated, Starting on 08/28/25 at 0300, Initiate infusion at 0.5 mcg/kg/min & titrate up or down by 0.3 - 0.6 mcg/kg/min every 5 minutes to use the lowest dose possible to maintain MAP greater than or equal To 65 mm Hg. Maximum Dose = 3 mcg/kg/min. Contact provider if unable to maintain MAP greater than or equal To 65 mm Hg on maximum dose or if MAP is greater Than 95 mm Hg. Once MAP target achieved, obtain vitals a minimum of every 30 minutes. ([facility]) Central line preferred, if unavailable use large bore IV access with frequent nurse monitoring of IV site. Rate/Dose Change 08/29/2025 3:43 PM EST 0.15 mcg/kg/min 4.2 mL/hr Restarted 08/29/2025 4:00 AM EST 0.25 mcg/kg/min 7 mL/hr New Bag 08/29/2025 1:17 AM EST 0.5 mcg/kg/min 14 mL/hr piperacillin-tazobactam (ZOSYN) 3.375 g IVPB in 100 mL NS MBP (CD) 3.375 g, Intravenous, Administer over 30 Minutes, Once, On 08/27/25 at 2230, For 1 dose New Bag 08/28/2025 12:16 AM EST 3.375 g piperacillin-tazobactam (ZOSYN) 3.375 g IVPB in 100 mL NS MBP (CD) 3.375 g, Intravenous, Administer over 4 Hours, Every 8 Hours, First dose on 08/28/25 at 0430, For 5 days, Indications: Intra-Abdominal InfectionIndications:Intra-Abdominal Infection New Bag 08/29/2025 12:23 AM EST 3.375 g New Bag 08/28/2025 4:26 PM EST 3.375 g New Bag 08/28/2025 8:10 AM EST 3.375 g piperacillin-tazobactam (ZOSYN) 4.5 g IVPB in 100 mL NS MBP (CD) 4.5 g, Intravenous, Administer over 4 Hours, Every 8 Hours, First dose (after last modification) on 08/29/25 at 0830, For 12 doses, Indications: Intra-Abdominal InfectionIndications:Intra-Abdominal Infection New Bag 09/01/2025 11:08 PM EST 4.5 g New Bag 09/01/2025 4:48 PM EST 4.5 g New Bag 09/01/2025 9:27 AM EST 4.5 g polyethylene glycol (MIRALAX) packet 17 g 17 g, Oral, Daily PRN, Constipation, Use if senna-docusate is ineffective, Starting on Sunshine 09/01/25 at 1152, Use if no bowel movement after 12 hours. Mix in 6-8 ounces of water. Use 4-8 ounces of water, tea, or juice for each 17 gram dose. potassium & sodium phosphates (PHOS-NAK) 280-160-250 MG packet 2 packet 2 packet, Oral, Once, On Sunshine 09/01/25 at 0815, For 1 dose, Take with full glass of water Given 09/01/2025 9:29 AM EST 2 packets potassium & sodium phosphates (PHOS-NAK) 280-160-250 MG packet 2 packet 2 packet, Oral, Once, On Sunshine 09/01/25 at 2030, For 1 dose, Take with full glass of water Given 09/01/2025 9:24 PM EST 2 packets potassium chloride (KLOR-CON) packet 40 mEq 40 mEq, Oral, Every 4 Hours, First dose on Fri08/31/25 at 0545, For 2 doses, For use with a feeding tube. Mix in at least 4 oz. of liquid. Given 08/31/2025 9:12 AM EST 40 mEq Given 08/31/2025 5:09 AM EST 40 mEq potassium chloride (KLOR-CON) packet 40 mEq 40 mEq, Oral, Every 4 Hours, First dose on Sunshine 09/01/25 at 0815, For 2 doses, For use with a feeding tube. Mix in at least 4 oz. of liquid. Given 09/01/2025 11:47 AM EST 40 mEq Given 09/01/2025 9:28 AM EST 40 mEq potassium chloride (KLOR-CON) packet 40 mEq 40 mEq, Oral, Every 4 Hours, First dose on Fri09/03/25 at 0615, For 2 doses, For use with a feeding tube. Mix in at least 4 oz. of liquid. Given 09/03/2025 10:48 AM EST 40 mEq Given 09/03/2025 5:30 AM EST 40 mEq potassium chloride (KLOR-CON) packet 40 mEq 40 mEq, Oral, Every 4 Hours, First dose on Fri09/04/25 at 0900, For 2 doses, For use with a feeding tube. Mix in at least 4 oz. of liquid. Given 09/04/2025 2:13 PM EST 40 mEq Given 09/04/2025 10:06 AM EST 40 mEq potassium chloride 10 mEq in 100 mL IVPB 10 mEq, Intravenous, at 100 mL/hr, Administer over 60 Minutes, Every 1 Hour, First dose on Fri08/28/25 at 0130, For 4 doses, OUTPATIENT/NON-MONITORED UNITS: Potassium Chloride standard bolus infusion rate is a maximum of 10 mEq/hr on unmonitored patients MONITORED UNITS: Potassium Chloride standard bolus infusion rate is a maximum of 20 mEq/hr on ECG monitored patients ONLY New Bag 08/28/2025 6:07 AM EST 10 mEq 100 mL/ hr New Bag 08/28/2025 3:36 AM EST 10 mEq 100 mL/hr New Bag 08/28/2025 2:34 AM EST 10 mEq 100 mL/hr potassium phosphate 15 mmol in 0.9% normal saline 250 mL IVPB 15 mmol, Intravenous, Administer over 3 Hours, Once, On Fri08/31/25 at 0545, For 1 dose New Bag 08/31/2025 5:09 AM EST 15 mmol propofol (DIPRIVAN) infusion 10 mg/mL 100 mL 5-50 mcg/kg/min 93.4 kg (2.802-28.02 mL/hr, rounded to 2.8-28.02 mL/hr), Intravenous, Titrated, Starting on Fri08/28/25 at 1100, Do not administer through the same IV catheter with blood or plasma. Begin infusion at 5 mcg/kg/min and titrate up or down by 5-10 mcg/kg/min every 3-5 minutes to maintain RASS goal. Maximum rate 50 mcg/kg/min. Notify MD if not at RASS goal and requiring more than 50 mcg/kg/min. Infuse into dedicated line, change vial and tube every 12 hours. Patient must be intubated., Titration Indication: Sedation New Bag 08/29/2025 8:30 AM EST 20 mcg/kg/min 11.21 mL/hr Rate/Dose Change 08/29/2025 6:00 AM EST 20 mcg/kg/min 11.2 1 mL/hr Rate/Dose Change 08/29/2025 4:00 AM EST 25 mcg/kg/min 14.0 1 mL/hr sennosides-docusate (PERICOLACE) 8.6-50 MG per tablet 2 tablet 2 tablet, Nasogastric, 2 Times Daily, First dose (after last modification) on [facility] 08/31/25 at 2100, Start bowel management regimen if patient has not had a bowel movement after 12 hours. Given 09/01/2025 9:28 AM EST 2 tablets Given 08/31/2025 9:48 PM EST 2 tablets sennosides-docusate (PERICOLACE) 8.6-50 MG per tablet 2 tablet 2 tablet, Oral, 2 Times Daily, First dose (after last modification) on Sunshine 09/01/25 at 2100, Start bowel management regimen if patient has not had a bowel movement after 12 hours. Given 09/05/2025 8:02 AM EST 2 tablets Given 09/01/2025 9:26 PM EST 2 tablets sodium bicarbonate 150 mEq/1000 mL D5W infusion 100 mL/hr, Intravenous, Continuous, Starting on 08/28/25 at 0345, For 15 hours, Indications: Systemic AcidosisIndications:System ic Acidosis Currently Infusing 08/28/2025 7:56 AM EST 100 mL/hr 100 mL/hr New Bag 08/28/2025 5:42 AM EST 100 mL/hr 100 mL/hr sodium bicarbonate 150 mEq/1000 mL D5W infusion 150 mL/hr, Intravenous, Continuous, Starting on 08/28/25 at 1045, For 10 hours, Indications: Systemic AcidosisIndications:Systemic Acidosis New Bag 08/28/2025 1:46 PM EST 150 mL/hr 150 mL/hr Currently Infusing 08/28/2025 10:01 AM EST 150 mL/hr 150 mL/hr sodium bicarbonate injection 8.4% 100 mEq 100 mEq, Intravenous, Once, On 08/28/25 at 0030, For 1 dose, Indications: Systemic AcidosisIndications:Systemic Acidosis Given 08/28/2025 12:10 AM EST 100 mEq sodium bicarbonate injection 8.4% 100 mEq 100 mEq, Intravenous, Once, On 08/28/25 at 0330, For 1 dose, Indications: Systemic AcidosisIndications:Systemic Acidosis Given 08/28/2025 2:54 AM EST 100 mEq sodium chloride 0.9 % bolus 1,000 mL 1,000 mL, Intravenous, at 250 mL/hr, Administer over 4 Hours, Once, On 08/27/25 at 2030, For 1 dose New Bag 08/27/2025 8:55 PM EST 1,000 mL 250 mL/hr sodium chloride 0.9 % flush 10 mL 10 mL, Intravenous, Every 12 Hours Scheduled, First dose on 08/27/25 at 2100 Given 09/05/2025 8:02 AM EST 10 mL Given 09/04/2025 9:27 PM EST 10 mL Given 09/04/2025 8:21 AM EST 10 mL sodium chloride 0.9 % infusion 100 mL/hr, Intravenous, Continuous, Starting on 08/27/25 at 2130, For 10 hours New Bag 08/27/2025 10:20 PM EST 100 mL/hr 100 mL/hr Sulfur Hexafluoride Microsph (LUMASON) 60.7-25 MG IV reconstituted suspension reconstituted suspension 4 mL 4 mL, Intravenous, Once in Imaging, On Fri09/02/25 at 1900, For 1 dose Given 09/02/2025 6:09 PM EST 4 mL terazosin (HYTRIN) capsule 5 mg 5 mg, Nasogastric, Nightly, First dose on Fri08/31/25 at 2100, Hold for SBP less than 100, DBP less than 60. Given 08/31/2025 9:47 PM EST 5 mg terazosin (HYTRIN) capsule 5 mg 5 mg, Oral, Nightly, First dose (after last modification) on Sunshine 09/01/25 at 2100, Hold for SBP less than 100, DBP less than 60. Given 09/04/2025 9:27 PM EST 5 mg Given 09/03/2025 9:29 PM EST 5 mg Given 09/02/2025 9:14 PM EST 5 mg vasopressin (PITRESSIN) 20 units in 100 mL NS infusion 0.03 Units/min (9 mL/hr), Intravenous, Continuous, Starting on 08/28/25 at 0330 New Bag 08/29/2025 8:30 AM EST 0.03 Units/min 9 mL/hr New Bag 08/28/2025 10:09 PM EST 0.03 Units/min 9 mL/hr New Bag 08/28/2025 10:45 AM EST 0.03 Units/min 9 mL/hr documented in this encounter Active and Recently Administered Medications Times are shown in EST. Scheduled Medication Order 09/03/2025 09/04/2025 09/05/2025 arformoterol (BROVANA) nebulizer solution 15 mcg 15 mcg, Nebulization, 2 Times Daily - RT, First dose on 08/28/25 at 0145, Include Respiratory Treatment Education Keep refrigerated. 0745 (Given - Provider: Vanessa Vale, CLINICAL PRACTITIONER)0930 (Canceled Entry - Provider: Vanessa Vale RRT)2055 (Given - Provider: Monse Paul, CLINICAL PRACTITIONER) 0833 (Given - Provider: Socorro Potts, CLINICAL PRACTITIONER)2251 (Given - Provider: Raffaele Costa, CLINICAL PRACTITIONER) 0954 (Not Given - Provider: Kalani David, BRAIN - Reason: Patient not available) barium sulfate (VARIBAR PUDDING) oral paste 20 mL (COMPLETED) 20 mL, Oral, Once in Imaging, On Fri09/05/25 at 1000, For 1 dose, (BK) Shake well before administration. 0905 (Given - Provider: Sammi Nicolas) barium sulfate (VARIBAR THIN LIQUID) oral suspension 100 mL (COMPLETED) 100 mL, Oral, Once in Imaging, On Fri09/05/25 at 1000, For 1 dose, (BK) Shake well before administration. 0905 (Given - Provider: Sammi Nicolas) barium sulfate oral suspension 10 mL (COMPLETED) 10 mL, Oral, Once in Imaging, On Fri09/05/25 at 1000, For 1 dose, (BK) Shake well before administration. 0905 (Given - Provider: Sammi Nicolas) budesonide (PULMICORT) nebulizer solution 0.5 mg 0.5 mg, Nebulization, 2 Times Daily - RT, First dose on Fri08/28/25 at 1045, Do not shake. Protect from light. 0745 (Given - Provider: Vanessa Vale, BRAIN)0930 (Canceled Entry - Provider: Vanessa L Vale, CLINICAL PRACTITIONER)2100 (Given - Provider: Monse Paul, CLINICAL PRACTITIONER) 0833 (Given - Provider: Socorro Potts, CLINICAL PRACTITIONER)2251 (Given - Provider: Raffaele Costa, CLINICAL PRACTITIONER) 0954 (Not Given - Provider: Kalani David, CLINICAL PRACTITIONER - Reason: Patient not available) furosemide (LASIX) injection 40 mg (COMPLETED) 40 mg, Intravenous, Once, On 09/03/25 at 1400, For 1 dose, Doses over 100 mg will dispense an IVPB bolus. 141 (Given - Provider: Velvet Torres RN) heparin (porcine) 5000 UNIT/ML injection 5,000 Units 5,000 Units, Subcutaneous, Every 8 Hours Scheduled, First dose on 08/28/25 at 1400, Indications: VTE Prophylaxis 0530 (Given - Provider: Rita Palacios RN)141 (Given - Provider: Velvet Torres RN)212 (Given - Provider: Lana Boyd, RN) 05 (Given - Provider: Lana Boyd, RN)141 (Given - Provider: Velvet Torres RN)212 (Given - Provider: Lana Boyd RN) 0632 (Given - Provider: Lana Boyd, RN)1400 (Due) lisinopril (PRINIVIL,ZESTRIL) tablet 40 mg 40 mg, Oral, Every 24 Hours Scheduled, First dose (after last modification) on Fri09/02/25 at 0900, Hold for SBP less than 100, DBP less than 60. 0827 (Given - Provider: Velvet Torres RN) 0821 (Given - Provider: Velvet Torres RN) 0802 (Given - Provider: Velvet Torres RN) montelukast (SINGULAIR) tablet 10 mg 10 mg, Oral, Nightly, First dose (after last modification) on Sunshine 09/01/25 at 2100 212 (Given - Provider: Lana Boyd RN) 2126 (Given - Provider: Lana Boyd RN) pantoprazole (PROTONIX) EC tablet 40 mg 40 mg, Oral, Every Power Shovel Mechanic, First dose on 09/04/25 at 0600, Do not crush or chew the capsules or tablets. The drug may not work as designed if the capsule or tablet is crushed or chewed. Swallow whole. Swallow whole; do not crush, split, or chew. 0511 (Given - Provider: Lana Boyd RN) 0632 (Given - Provider: Lana Boyd RN) pantoprazole (PROTONIX) injection 40 mg (CANCELED) 40 mg, Intravenous, Every Power Shovel Mechanic, First dose on 08/29/25 at 0645, Dilute with 10 mL of 0.9% NaCl and give IV push over 2 minutes., Indications: Gastroesophageal Reflux Disease 0530 (Given - Provider: Rita Palacios RN) potassium chloride (KLOR-CON) packet 40 mEq (COMPLETED) 40 mEq, Oral, Every 4 Hours, First dose on 09/03/25 at 0615, For 2 doses, For use with a feeding tube. Mix in at least 4 oz. of liquid. 0530 (Given - Provider: Rita Palacios RN)1048 (Given - Provider: Velvet Torres RN) potassium chloride (KLOR-CON) packet 40 mEq (COMPLETED) 40 mEq, Oral, Every 4 Hours, First dose on 09/04/25 at 0900, For 2 doses, For use with a feeding tube. Mix in at least 4 oz. of liquid. 1006 (Given - Provider: Velvet Torres RN)1413 (Given - Provider: Velvet Torres RN) sennosides-docusate (PERICOLACE) 8.6-50 MG per tablet 2 tablet(Linked Group 1) 2 tablet, Oral, 2 Times Daily, First dose (after last modification) on Sunshine 09/01/25 at 2100, Start bowel management regimen if patient has not had a bowel movement after 12 hours. 826 (Not Given - Provider: Velvet Torres RN - Reason: Patient/family refused)2128 (Not Given - Provider: Lana Boyd RN - Reason: Order parameters not met) 820 (Not Given - Provider: Velvet Torres RN - Reason: Patient/family refused)2128 (Not Given - Provider: Lana Boyd RN - Reason: Patient/family refused) 801 (Given - Provider: Velvet Torres RN) sodium chloride 0.9 % flush 10 mL 10 mL, Intravenous, Every 12 Hours Scheduled, First dose on 08/27/25 at 2100 08 (Given - Provider: Velvet Torres RN)2129 (Given - Provider: Lana Boyd RN) 820 (Given - Provider: Velvet Torres RN)2126 (Given - Provider: Lana Boyd RN) 801 (Given - Provider: Velvet Torres RN) terazosin (HYTRIN) capsule 5 mg 5 mg, Oral, Nightly, First dose (after last modification) on Sunshine 09/01/25 at 2100, Hold for SBP less than 100, DBP less than 60. 2128 (Given - Provider: Lana Boyd RN) 2126 (Given - Provider: Lana Boyd RN) PRN Medication Order 09/03/2025 09/04/2025 09/05/2025 acetaminophen (TYLENOL) 160 MG/5ML oral solution 650 mg(Linked Group 2) 650 mg, Oral, Every 4 Hours PRN, Mild Pain, Starting on Sunshine 09/01/25 at 1153, If given for fever, use fever parameter: fever greater than 100.4 F Based on patient request - if ordered for moderate or severe pain, provider allows for administration of a medication prescribed for a lower pain scale. Do not exceed 4 grams of acetaminophen in a 24 hr period. Max dose of 2gm for AST/ALT greater than 120 units/L. If given for pain, use the following pain scale: Mild Pain = Pain Score of 1-3, CPOT 1-2 Moderate Pain = Pain Score of 4-6, CPOT 3-4 Severe Pain = Pain Score of 7-10, CPOT 5-8 bisacodyl (DULCOLAX) suppository 10 mg(Linked Group 1) 10 mg, Rectal, Daily PRN, Constipation, Use if bisacodyl oral is ineffective, Starting on [place] 09/01/25 at 1152, Use if no bowel movement after 12 hours. Hold for diarrhea Calcium Replacement - Follow Nurse / BPA Driven Protocol Open [facility] & [facility] Electrolyte Replacement Protocol Algorithm to View Details dextrose (D50W) (25 g/50 mL) IV injection 25 g 25 g, Intravenous, Every 15 Minutes PRN, Low Blood Sugar, Blood Sugar Less Than 70, Patient Has IV Access - Unresponsive, NPO or Unable To Safely Swallow, Starting on [place] 08/28/25 at 0623 glucagon (GLUCAGEN) injection 1 mg 1 mg, Subcutaneous, Every 15 Minutes PRN, Low Blood Sugar, Blood Glucose Less Than 70 - Patient Without IV Access - Unresponsive, NPO or Unable To Safely Swallow, Starting on Fri08/28/25 at 0623, Reconstitute powder for injection by adding 1 mL of sales order clerk-supplied sterile diluent or sterile water for injection to a vial containing 1 mg of the drug, to provide solutions containing 1 mg/mL. Shake vial gently to dissolve. hydrALAZINE (APRESOLINE) injection 10 mg 10 mg, Intravenous, Every 6 Hours PRN, High Blood Pressure, for SBP greater than 160, Starting on Fri08/30/25 at 2007, Hold for SBP less than 100, DBP less than 60. Caution: Look alike/sound alike drug alert HYDROmorphone (DILAUDID) injection 0.5 mg 0.5 mg, Intravenous, Every 2 Hours PRN, Severe Pain, Starting on Fri08/28/25 at 0147, Based on patient request - if ordered for moderate or severe pain, provider allows for administration of a medication prescribed for a lower pain scale. If given for pain, use the following pain scale: Mild Pain = Pain Score of 1-3, CPOT 1-2 Moderate Pain = Pain Score of 4-6, CPOT 3-4 Severe Pain = Pain Score of 7-10, CPOT 5-8 hydrOXYzine (ATARAX) tablet 25 mg 25 mg, Oral, 3 Times Daily PRN, Allergies, Anxiety, Sleep, Starting on [place] 09/01/25 at 1153, Caution: Look alike/sound alike drug alert ipratropium-albuterol (DUO-NEB) nebulizer solution 3 mL 3 mL, Nebulization, Every 6 Hours PRN, Shortness of Air, Starting on [facility] 08/27/25 at 2109, Include Respiratory Treatment Education Magnesium Standard Dose Replacement - Follow Nurse / BPA Driven Protocol [facility] [employer] [facility] Electrolyte Replacement Protocol Algorithm to View Details melatonin tablet 5 mg 5 mg, Oral, Nightly PRN, Sleep, Starting on [place] 09/01/25 at 1153 naloxone (NARCAN) injection 0.4 mg 0.4 mg, Intravenous, Every 5 Minutes PRN, Opioid Reversal, Starting on [facility] 08/27/25 at 2030 nitroglycerin (NITROSTAT) SL tablet 0.4 mg 0.4 mg, Sublingual, Every 5 Minutes PRN, Chest Pain, Starting on Fri08/27/25 at 1931, If Pain Unrelieved After 3 Doses Notify MD May administer up to 3 doses per episode. Hold if SBP less than 100. ondansetron (ZOFRAN) injection 4 mg(Linked Group 3) 4 mg, Intravenous, Every 6 Hours PRN, Nausea, Vomiting, Starting on 08/30/25 at 1021, If BOTH ondansetron (ZOFRAN) and promethazine (PHENERGAN) are ordered use ondansetron first and THEN promethazine IF ondansetron is ineffective. Phosphorus Replacement - Follow Nurse / BPA Driven Protocol [facility] Electrolyte Replacement Protocol Algorithm to View Details polyethylene glycol (MIRALAX) packet 17 g(Linked Group 1) 17 g, Oral, Daily PRN, Constipation, Use if senna-docusate is ineffective, Starting on Fri09/01/25 at 1152, Use if no bowel movement after 12 hours. Mix in 6-8 ounces of water. Use 4-8 ounces of water, tea, or juice for each 17 gram dose. Potassium Replacement - Follow Nurse / BPA Driven Protocol [employer] [facility] [employer] [facility] Electrolyte Replacement Protocol Algorithm to View Details sodium chloride 0.9 % flush 10 mL 10 mL, Intravenous, As Needed, Line Care, Starting on 08/27/25 at 1959 Linked Groups Order Group 1: sennosides-docusate (PERICOLACE) 8.6-50 MG per tablet 2 tabletJump to med 2 tablet, Oral, 2 Times Daily, First dose (after last modification) on Fri09/01/25 at 2100, Start bowel management regimen if patient has not had a bowel movement after 12 hours. And polyethylene glycol (MIRALAX) packet 17 gJump to med 17 g, Oral, Daily PRN, Constipation, Use if senna-docusate is ineffective, Starting on Fri09/01/25 at 1152, Use if no bowel movement after 12 hours. Mix in 6-8 ounces of water. Use 4-8 ounces of water, tea, or juice for each 17 gram dose. And bisacodyl (DULCOLAX) suppository 10 mgJump to med 10 mg, Rectal, Daily PRN, Constipation, Use if bisacodyl oral is ineffective, Starting on Fri09/01/25 at 1152, Use if no bowel movement after 12 hours. Hold for diarrhea Group 2: acetaminophen (TYLENOL) 160 MG/5ML oral solution 650 mgJump to med 650 mg, Oral, Every 4 Hours PRN, Mild Pain, Starting on [place] 09/01/25 at 1153, If given for fever, use fever parameter: fever greater than 100.4 F Based on patient request - if ordered for moderate or severe pain, provider allows for administration of a medication prescribed for a lower pain scale. Do not exceed 4 grams of acetaminophen in a 24 hr period. Max dose of 2gm for AST/ALT greater than 120 units/L. If given for pain, use the following pain scale: Mild Pain = Pain Score of 1-3, CPOT 1-2 Moderate Pain = Pain Score of 4-6, CPOT 3-4 Severe Pain = Pain Score of 7-10, CPOT 5-8 Group 3: ondansetron ODT (ZOFRAN-ODT) disintegrating tablet 4 mg (CANCELED) 4 mg, Translingual, Every 6 Hours PRN, Nausea, Vomiting, Starting on Fri08/30/25 at 1021, If BOTH ondansetron (ZOFRAN) and promethazine (PHENERGAN) are ordered use ondansetron first and THEN promethazine IF ondansetron is ineffective. Place on tongue and allow to dissolve. Or ondansetron (ZOFRAN) injection 4 mgJump to med 4 mg, Intravenous, Every 6 Hours PRN, Nausea, Vomiting, Starting on Fri08/30/25 at 1021, If BOTH ondansetron (ZOFRAN) and promethazine (PHENERGAN) are ordered use ondansetron first and THEN promethazine IF ondansetron is ineffective. documented in this encounter Care Teams Woods Superintendent Relationship Specialty Start Date End Date Lisa Arreola, ANTWON [address] [place] [id number] PCP - General Nurse Practitioner 08/29/25 documented as of this encounter
--- OUTSIDE RECORDS SUMMARY | 2025-08-28 07:56 | XMS_ITS | Encounter Summary ---
[facility] Organization [facility] Address [address] [place] [address] Care Team Providers Care Biopharmaceutical Rep Name Role Phone Provider, No Known Primary Care Provider Unavail able Reason for Visit * Auth/Cert Specialty Diagnoses / Procedures Referred By Contac t Referred To Contact Diagnoses Pancreatitis (pancreatitis) Referral ID Status Reason Start Date Expiration Date Visits Re quested Visits Authorized [id number] 1 1 Encounter Details Date Type Department Care Team (Late st Contact Info) Description 08/28/2025 7:56 AM EST Anesthesia Event [facility] OR [address] [place] [address] Kourtney Booth MD [address] [place] [address] Margo Chung CRNA [address] [place] [address] Anesthesia Record Procedure Summary Procedure Name Responsible Anesthesiologist Anesthesia Start Time Anesthesia Stop Time CHOLECYSTECTOMY LAPAROSCOPIC INTRAOPERATIVE CHOLANGIOGRAM (Abdomen) Kourtney Booth MD 08/28/25 0756 08/28/25 0937 Events Date Time Event Comment 08/28/2025 0745 AN Equip Check 0746 0756 An Start The patient was reevaluated immediately before moderate or deep sedation use and before anesthesia induction. 0756 An Start Data 0804 An Induction 0805 An Intubation 0844 Quick Note iSTAT Ph 7.17 P co2 44 pO2 340 BE-12 HCO3 16.5 Na 142 K 3.5 iCa 1.35 Glouc 117 H/H 7.8/23 0926 an stop data 0937 Handoff to RN The following has been completed: 1. Identification of Patient, tripathi family member(s) or patient surrogate 2. Identification of the responsible Practitioner (primary service) 3. Discussion of the pertinent/attainable medical history 4. Discussion of the surgical/procedure course (procedure, reason for surgery, procedure performed) 5. Intraoperative anesthetic management and issue/concerns to include things such as airway, hemodynamics, narcotic, sedation level and paralytic management and intravenous fluids/blood products and urine output during the procedure 6. Expectations/Plans for the early post-procedure period to include things such as anticipated course (anticipatory guidance), complications, need for laboratory or ECG and medication administration 7. Opportunity for questions and acknowledgment of understanding of report from the receiving PACU/ICU team 0937 An Stop Meds Name Total propofol 10 MG/ML 50 mg lidocaine PF 1% 1 % 50 mg rocuronium 50 MG/5ML 100 mg sodium bicarbonate 8.4 % 50 mEq phenylephrine (KAYLYNN-SYNEPHRIN E) 50 mg in sodium chloride 0.9 % 250 mL infusion 7.43 mg sodium bicarbonate 150 mEq/1000 mL D5W i nfusion 168.33 mL vasopressin (PITRESSIN) 20 units in 100 mL NS infusion 3.03 Units Succinylcholine Chloride 200 MG/10ML 140 mg etomidate 2 MG/ML 20 mg calcium chloride 10 % 2 g piperacillin-tazobactam (ZOSYN) 3.375 g IVPB in 100 mL NS MBP (CD) 3.375 g ondansetron 2 mg/mL 4 mg dexAMETHasone 4 MG/ML 4 mg albumin human 5 % 250 mL lactated ringers infusion 1,000 mL * Agents Name O2 N2O Air Sevoflurane Inspired Sevoflurane * Blood No blood administrations on file. Lines, Drains, and Airways Type Details Placement Removal Wound 08/28/25; 08; N; umbilical area; Surgical; Closed Surgi 08/28/25819 by Maria Elena Buckner RN Wound 08/28/25; 929 (present on arrival from OR); N; upper; abdomen; Surgical; Closed Surgi 08/28/25929 by Rom Akins RN Hi-Lo Evac ETT 08/28/25; (INTUBATED IN SURGERY); Oral; 7.5; Cuffed; Anesthesiologist; 08/29/25; 1730 08/28/25 0000 by Nazia Arauz, BLOCK OPERATOR 08/29/25 1730 by Kalani David RRT Peripheral IV Placement Date: 08/28/25; Placement Time: 013; Change Due: 09/01/25; Catheter Size: 20 G; Orientation: Anterior, Left; Location: Forearm; Site Prep: Chlorhexidine; Local Anes: None; Technique: Ultrasound guidance; Inserted by: Genet Estevez RN; Insertion Attempts: 1; Patient Tolerance: Tolerated well; Removal Date: 09/05/25; Removal Time: 1514 08/28/25 0135 by Genet Estevez RN 09/05/25 151 by Velvet Torres RN Urethral Catheter Placement Date: 08/28/25; Placement Time: 034; Inserted by: Genet Estevez RN; Type: Coude; Balloon Size: 10 mL; Removal Date: 09/02/25; Removal Time: 1209 08/28/25 0341 by Genet Estevez RN 09/02/25 1209 by Martha Freeman RN CVC Triple Lumen Placement Date: 08/28/25; Placement Time: 0500; Hand Hygiene: Yes; Site Prep: Chlorhexidine; Site Prep Agent Dried: Yes; Sterile Barrier Used: Yes; Local Anesth: Injectable; Orientation: Right; Location: Internal jugular; Inserted by: ANTWON Guzman; Insertion Attempts: 1; Securement: Sutured; Pt Tolerance: Tolerated well; Placement Verification: X-ray; Removal Date: 09/05/25; Removal Time: 1409 08/28/25 0500 by Genet Estevez RN 09/05/25 1409 by Siri Hopkins RN Arterial Line(Adult) Placement Date: 08/28/25; Placemnt Time: 0500; Orientation: Left; Location: Radial; Inserted by: Jacklyn Lucas APRN; Insertion Attempts: 1; Removal Date: 08/31/25; Removal Time: 0500 08/28/25 0500 by Genet Estevez RN 08/31/25 0500 by Blossom Feldman RN ETT Placement Date: 08/28/25; Placement Time: 0805 (created via procedure documentation); Blade Size: 4; Location: Oral; Removal Date: 08/28/25; Removal Time: 92508/28/25 08 by Margo Chung ENGINEER SYSTEM ADMINISTRATOR 08/28/25925 by Margo Chung CRNA Closed/Suction Drain 08/28/25; 0859; Yes ; 1; RUQ; Bulb; 10 Fr.; 1 08/28/25 0859 by Maria Elena Buckner RN 09/02/25 08 by Martha Freeman RN NG/OG Tube (Adult) Placement Date: 08/28/25; Placement Time: 929 (present on arrival from OR); Inserted by: Dr. Jaramillo; Type: Nasogastric; Size: 16 Fr; Location: Left nostril; Removal Date: 09/01/25; Removal Time: 92908/28/25929 by Rom Akins RN 09/01/25929 by Tamica Vo RN documented in this encounter Social History Tobacco Use Types Packs/Day Years Used Date Smoking Tobacco: Former Cigarettes Q uit: 1989 Smokeless Tobacco: Never Alcohol Use Standard Drinks/Week Comments Never 0 [...] and heating? Not hard at all 08/29/2025 [facility] [place] of Occupat ional Health - Occupational Stress [...] things needed for daily living? No 08/29/2025 [facility] Utilities Answer Date Recorded In the [...] home 08/20 Potentially Unsafe Housing Conditions none 08/29/2025 Family and Community Support Answer Kofi e [...] GED or equivalent No 08/29/2025 Preferred Language Slovak 08/29/2025 PHQ-2 Answer Date Recorded Patient Health Questionnaire-2 Score 0 08/29/2025 Sex and Gender Information Value Date Recorded Sex Assigned at Not on file Legal Sex Male 3:02 PM EST Gender Identity Not on file Sexual Orientation Not on file documented as of this encounter OR Notes * Anesthesia Postprocedure Evaluation - Margo Chung CRNA - 08/28/2025 9:38 AM EST Patient: Jayme Thurman Procedure Summary Date: 08/28/25 Room / [facility] Anesthesia Start: 755 Anesthesia Stop: 936 Procedure: CHOLECYSTECTOMY LAPAROSCOPIC INTRAOPERATIVE CHOLANGIOGRAM (Abdomen) Diagnosis: Surgeons: Hermes Jaramillo MD Provider: Kourtney Booth MD Anesthesia Type: general ASA Status: 4 - Emergent Anesthesia Type: general Vitals Vitals Value Taken Time BP 119/49 08/28/25 09:37 Temp 98.1 ??F (36.7 ??C) 08/28/25 09:37 Pulse 101 08/28/25 09:37 Resp 12 08/28/25 09:37 SpO2 100 % 08/28/25 09:37 Post Anesthesia Care and Evaluation Patient location during evaluation: ICU Patient participation: complete - patient cannot participate Level of consciousness: obtunded/minimal responses Pain management: adequate Airway patency: patent Anesthetic complications: No anesthetic complications PONV Status: none Cardiovascular status: hemodynamically stable and acceptable Respiratory status: nonlabored ventilation, acceptable and ventilator Hydration status: acceptable No anesthesia care post op * Anesthesia Procedure Notes - Margo Chung CRNA - 08/28/2025 8:16 AM EST Associated Order(s): Airway Airway Reason: elective Date/Time: 08/28/2025 8:05 AM Airway not difficult General Information and Staff Patient location during procedure: OR ENGINEER SYSTEM ADMINISTRATOR/CAA: Margo Chung CRNA Indications and Patient Condition Indications for airway management: airway protection Preoxygenated: yes MILS not maintained throughout Mask difficulty assessment: 0 - not attempted Final Airway Details Final airway type: endotracheal airway Successful airway: ETT and Microcuff Subglottic Suctioning ETT Cuffed: yes Successful intubation technique: video laryngoscopy and RSI Adjuncts used in placement: cricoid pressure Endotracheal tube insertion site: oral Blade: Noe Blade size: 4 ETT size (mm): 7.5 Cormack-Lehane Classification: grade I - full view of glottis Placement verified by: chest auscultation and capnometry Cuff volume (mL): 6 Measured from: lips ETT/EBT to lips (cm): 20 Number of attempts at approach: 1 Assessment: lips, teeth, and gum same as pre-op and atraumatic intubation Additional Comments Negative epigastric sounds, Breath sound equal bilaterally with symmetric chest rise and fall * Anesthesia Preprocedure Evaluation - Kourtney Booth MD - 08/28/2025 7:27 AM EST Anesthesia Evaluation Patient summary reviewed and Nursing notes reviewed no history of anesthetic complications: NPO Solid Status: > 8 hours NPO Liquid Status: > 8 hours Airway Mallampati: II TM distance: >3 FB Neck ROM: full No difficulty expected Dental (+) upper dentures and lower dentures Pulmonary (+) a smoker Former, COPD,decreased breath sounds ROS comment: Lung mass s/p bronch Occasional hemoptysis since procedure Cardiovascular ECG reviewed Rhythm: regular Rate: abnormal (+) hypertension, hyperlipidemia (-) dysrhythmias, angina PE comment: Tachycardic Neuro/Psych (+) syncope (-) seizures, TIA GI/Hepatic/Renal/Endo (+) obesity, GERD, renal disease- ARF Musculoskeletal 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 Use of blood products discussed with patient . Plan discussed with ENGINEER SYSTEM ADMINISTRATOR. CODE STATUS: Code Status (Patient has no pulse and is not breathing): CPR (Attempt to Resuscitate) Medical Interventions (Patient has pulse or is breathing): Full Support Level Of Support Discussed With: Patient documented in this encounter Plan of Treatment Upcoming Encounters Date Type Department Care Team (Late st Contact Info) Description 10/05/2025 8:30 AM EST Office Visit [facility] GENERAL SURGERY [address] [facility] [address] [place] [address] Hermes Jaramillo MD [address] [facility] [address] [place] [address] documented as of this encounter Procedures Procedure Name Priority Date/Time Associated Diagnosis Comments ANESTHESIA INTUBATION Routine 08/28/2025 8:16 AM EST documented in this encounter Results * BH AN ETT AIRWAY (08/28/2025 8:16 AM EST) Narrative Margo Chung CRNA - 08/28/2025 8:16 AM EST Margo Chung CRNA 08/28/2025 8:17 AM Airway Reason: elective Date/Time: 08/28/2025 8:05 AM Airway not difficult General Information and Staff Patient location during procedure: OR ENGINEER SYSTEM ADMINISTRATOR/CAA: Margo Chung CRNA Indications and Patient Condition Indications for airway management: airway protection Preoxygenated: yes MILS not maintained throughout Mask difficulty assessment: 0 - not attempted Final Airway Details Final airway type: endotracheal airway Successful airway: ETT and Microcuff Subglottic Suctioning ETT Cuffed: yes Successful intubation technique: video laryngoscopy and RSI Adjuncts used in placement: cricoid pressure Endotracheal tube insertion site: oral Blade: Noe Blade size: 4 ETT size (mm): 7.5 Cormack-Lehane Classification: grade I - full view of glottis Placement verified by: chest auscultation and capnometry Cuff volume (mL): 6 Measured from: lips ETT/EBT to lips (cm): 20 Number of attempts at approach: 1 Assessment: lips, teeth, and gum same as pre-op and atraumatic intubation Additional Comments Negative epigastric sounds, Breath sound equal bilaterally with symmetric chest rise and fall us Kourtney Booth MD ANESTHESIA ORDERABLES Final Result documented in this encounter Visit Diagnoses Not on filedocumented in this encounter Administered Medications Inactive Administered Medications - up to 3 most recent administrations Medication Order MAR Action Action Date Dose Rate Site albumin human 5 % solution Intravenous, Administer over 30 Minutes, Continuous PRN, Starting on 08/28/25 at 0821 New Bag 08/28/2025 8:21 AM EST calcium chloride injection Intravenous, As Needed, Starting on 08/28/25 at 0816 Given 08/28/2025 8:25 AM EST 1 g Given 08/28/2025 8:19 AM EST 0.5 g Given 08/28/2025 8:16 AM EST 0.5 g dexAMETHasone (DECADRON) injection Intravenous, As Needed, Starting on 08/28/25 at 0830 Given 08/28/2025 8:30 AM EST 4 mg etomidate (AMIDATE) injection Intravenous, As Needed, Starting on 08/28/25 at 0804 Given 08/28/2025 8:04 AM EST 20 mg lactated ringers infusion Intravenous, Continuous PRN, Starting on 08/28/25 at 0756 New Bag 08/28/2025 7:56 AM EST lidocaine PF 1% (XYLOCAINE) injection Intravenous, As Needed, Starting on 08/28/25 at 0804 Given 08/28/2025 8:04 AM EST 50 mg ondansetron (ZOFRAN) injection Intravenous, As Needed, Starting on 08/28/25 at 0830 Given 08/28/2025 8:30 AM EST 4 mg phenylephrine (KAYLYNN-SYNEPHRINE) 50 mg in sodium [...] Bag 08/28/2025 8:10 AM EST 3.375 g propofol (DIPRIVAN) injection Intravenous, As Needed, Starting on 08/28/25 at 0804 Given 08/28/2025 8:04 AM EST 50 mg rocuronium (ZEMURON) injection Intravenous, As Needed, Starting on 08/28/25 at 0804 Given 08/28/2025 8:18 AM EST 80 mg Given 08/28/2025 8:04 AM EST 20 mg sodium bicarbonate 150 mEq/1000 mL D5W infusion 100 mL/hr, Intravenous, Continuous, Starting on 08/28/25 at 0345, For 15 hours, Indications: Systemic AcidosisIndications:System ic Acidosis Currently Infusing 08/28/2025 7:56 AM EST 100 mL/hr 100 mL/hr New Bag 08/28/2025 5:42 AM EST 100 mL/hr 100 mL/hr sodium bicarbonate injection 8.4% Intravenous, As Needed, Starting on 08/28/25 at 0846 Given 08/28/2025 8:46 AM EST 50 mEq Succinylcholine Chloride (ANECTINE) injection Intravenous, As Needed, Starting on 08/28/25 at 0804 Given 08/28/2025 8:04 AM EST 140 mg vasopressin (PITRESSIN) 20 units in 100 mL NS infusion 0.03 Units/min (9 mL/hr), Intravenous, Continuous, Starting on 08/28/25 at 0330 New Bag 08/29/2025 8:30 AM EST 0.03 Units/min 9 mL/hr New Bag 08/28/2025 10:09 PM EST 0.03 Units/min 9 mL/hr New Bag 08/28/2025 10:45 AM EST 0.03 Units/min 9 mL/hr documented in this encounter Care Teams Biopharmaceutical Rep Relationship Specialty Start Date End Date Provider, [place] [address] PCP - General 08/27/25 08/28/25 documented as of this encounter
--- OUTSIDE RECORDS SUMMARY | 2025-08-28 18:35 | XMS_ITS | Encounter Summary ---
Author Organization [facility] Address [address] [place] [id number] Care Team Providers Care Assistant Printer Floor Covering Name Role Phone Provider, No Known Primary Care Provider Unavail able Reason for Visit * Auth/Cert Specialty Diagnoses / Procedures Referred By Contac t Referred To Contact Diagnoses Pancreatitis (pancreatitis) Referral ID Status Reason Start Date Expiration Date Visits Re quested Visits Authorized [id number] 1 1 Encounter Details Date Type Department Care Team (Late st Contact Info) Description 08/28/2025 6:35 PM EST - 08/28/2025 8:12 PM EST Surgery [facility] [address] [place] [id number] Hermes Jaramillo MD [address] [place] [address] CHOLECYSTECTOMY LAPAROSCOPIC INTRAOPERATIVE CHOLANGIOGRAM [90365 (CPT )] Social History Tobacco Use Types [...] and heating? Not hard at all 08/29/2025 [facility] [place] [facility] Occup[facility] ional [facility] - Occupational Stress [...] things needed for daily living? No 08/29/2025 [facility] Utilities Answer Date Recorded In the past 12 months has [facility] electric, gas, oil, or water company threatened [...] GED or equivalent No 08/29/2025 Preferred Language Yemeni 08/29/2025 PHQ-2 Answer Date Recorded Patient Health [...] documented in this encounter Functional Status * Question Answer Date of Assessment Author 1. Wish to be (Past 1 Month) No 9:46 PM EST Casi Ford RN 2. Non-Specific Active Suici eliezer Thoughts (Past 1 Month) No 08/27/2025 9:46 PM EST Asiya [place] RN * Calculated C-SSRS Risk Score (Lifetime/Recent) Answer Date of Assessment Author No Risk Indicated 08/27/2025 9:46 PM EST Casi Tanner RN * [place] Suicide Severity Rating Scale (Screener/Recent Self-Report) Question Answer Date of Assessment Author 6. Suicidal Behavior (Lifetime) No 5 9:46 PM EST Casi [place] RN documented as of this encounter Discharge Summaries * Daryl Schwab RN - 09/05/2025 1:02 PM EST Images from the original note were not included. Loc Thurman Annetta (84 y.o. Male) From Daryl Schwab [facility] [id number] Date of 1940 Social Security Number [id number] [place] [address] Gnosticism Bahai Marital Status Admission Date 08/27/2025 Admission Type Urgent Admitting Provider Selena Arias MD Attending Provider Selena Arias MD Department, Room/Bed [address], S581/1 Discharge Date Discharge Disposition Rehab [...] Plan Fax Number Effective Dates [phone] 11/20/2003 - None Entered [facility] [id number] Subscriber Name Subscriber Date Member ID LOC THURMAN 1940 [id number] Secondary Coverage Payor Plan Insurance Group Employer/Plan Group [employer] Payor Plan Address Payor Plan Phone Number Payor Plan Fax Number Effective Dates [phone] [employer] JESUS MANUELEDGARDO [phone] 10/20/2015 - None Entered [facility] [id number] Subscriber Name Subscriber Date Member ID LOC THURMAN 1940 [id number] Emergency Contacts Assistant Golf Coach (Rel.) Home Phone Work Phone Mobile Phone Sarabjit Thurman (Son) -- -- [phone] Alexandru Thurman (Grandchild) -- -- [phone] Discharge Summary Selena Arias MD at 09/05/25 1249 [facility] Medicine Services DISCHARGE SUMMARY Patient Name: [...] the biopsy showed. Procedure was done at [facility], will need to f/u outpatient. [...] 09/03/25 1357 09/03/25 0343 09/02/25 0543 09/01/25 17009/01/2540008/31/25337 SODIUM 146* -- 145 -- 149* 148* [...] Blood Culture - Blood, Blood, Arterial Line [[id number]] (Normal) Collected: 08/28/25 0638 Lab Status: Final result Specimen: Blood, Arterial Line Updated: 09/02/25 0700 Blood Culture No growth at 5 days Blood Culture - Blood, Hand, Left [[id number]] (Normal) Collected: 08/28/25 0145 Lab Status: Final [...] MD 09/02/2025 12:12 PM EST Workstation ID: [id number] XR Chest 1 View Result Date: 09/02/2025 [...] MD 09/02/2025 12:03 PM EST Workstation ID: [id number] ROLLING UP MACHINE OPERATOR FEES - Fiberoptic Endo Eval Swallow Result [...] MD 08/29/2025 4:14 AM EST Workstation ID: [id number] FL Cholangiogram Operative Result Date: 08/28/2025 FL [...] MD 08/28/2025 3:24 PM EST Workstation ID: [id number] XR Chest 1 View Result Date: 08/28/2025 [...] MD 08/28/2025 11:08 AM EST Workstation ID: [id number] XR Abdomen KUB Result Date: 08/28/2025 XR [...] MD 08/28/2025 10:53 AM EST Workstation ID: [id number] XR Chest 1 View Result Date: 08/28/2025 [...] MD 08/28/2025 5:45 AM EST Workstation ID: [id number] CT Abdomen Pelvis Without Contrast Result Date: [...] MD 08/27/2025 10:25 PM EST Workstation ID: [id number] Results for orders placed during the hospital [...] minutes on this discharge activity which included: ubee-or-fimossamdohkd with the patient, reviewing the data in the system, coordination of the care with the nursing staff as well as consultants, documentation, and entering orders. 1301 * Selena Arias MD - 09/05/2025 12:49 PM EST Images from the original note were not included. [facility] Medicine Services DISCHARGE SUMMARY Patient Name: [...] the biopsy showed. Procedure was done at [facility], will need to f/u outpatient. 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 - Continue terazosin Discharge Follow Up Recommendations [...] Blood Culture - Blood, Blood, Arterial Line [[id number]] (Normal) Collected: 08/28/25 0638 Lab Status: Final result Specimen: Blood, Arterial Line Updated: 09/02/25 0700 Blood Culture No growth at 5 days Blood Culture - Blood, Hand, Left [[id number]] (Normal) Collected: 08/28/25 0145 Lab Status: Final [...] MD 09/02/2025 12:12 PM EST Workstation ID: [id number] XR Chest 1 View Result Date: 09/02/2025 [...] MD 09/02/2025 12:03 PM EST Workstation ID: [id number] ROLLING UP MACHINE OPERATOR FEES - Fiberoptic Endo Eval Swallow Result [...] MD 08/29/2025 4:14 AM EST Workstation ID: [id number] FL Cholangiogram Operative Result Date: 08/28/2025 FL [...] MD 08/28/2025 3:24 PM EST Workstation ID: [id number] XR Chest 1 View Result Date: 08/28/2025 [...] MD 08/28/2025 11:08 AM EST Workstation ID: [id number] XR Abdomen KUB Result Date: 08/28/2025 XR [...] MD 08/28/2025 10:53 AM EST Workstation ID: [id number] XR Chest 1 View Result Date: 08/28/2025 [...] MD 08/28/2025 5:45 AM EST Workstation ID: [id number] CT Abdomen Pelvis Without Contrast Result Date: [...] MD 08/27/2025 10:25 PM EST Workstation ID: [id number] Results for orders placed during the hospital [...] minutes on this discharge activity which included: eprm-yv-udxwqvasalfkd with the patient, reviewing the data in the system, coordination of the care with the nursing staff as well as consultants, documentation, and entering orders. * Daryl Schwab RN - 09/02/2025 1:08 PM EST Images from the original note were not included. Loc Thurman (84 y.o. Male) From Daryl Schwab RN CM [id number] Date of 1940 Social Security Number [id number] [place] [address] Gnosticism Bahai Marital Status Admission Date 08/27/2025 Admission Type Urgent Admitting Provider Flora Baig MD Attending Provider Flora Baig MD Department, Room/Bed [address], S581/1 Discharge Date Discharge Disposition Discharge [...] Plan Fax Number Effective Dates [address] 11/20/2003 - None Entered [place] [address] Subscriber Name Subscriber Date Member ID LOC THURMAN 1940 [id number] Secondary Coverage Payor Plan Insurance Group Employer/Plan Group [employer] Payor Plan Address Payor Plan Phone Number Payor Plan Fax Number Effective Dates [address] [phone] 10/20/2015 - None Entered [facility] [id number] Subscriber Name Subscriber Date Member ID LOC THURMAN 1940 [id number] Emergency Contacts Assistant Golf Coach (Rel.) Home Phone Work Phone Mobile Phone Sarabjit Thurman (Son) -- -- [phone] Alexandru Thurman (Grandchild) -- -- [phone] Consult Notes (most recent note) Hermes Jaramillo MD at 08/27/25 2111 Consult Orders 1. Inpatient General Surgery Consult [[id number]] ordered by Nesha Lopes APRN at 08/27/252003 Patient Name: Loc Thurman Date of : 1940 [id number] Patient Care Team: Provider, No Known as [...] left lung mass. He underwent bronchoscopy at [facility] yesterday. He states postoperatively he did well [...] for cancers Social History: Pt lives in [facility] [place]. Tobacco use: Denies , quit 35 years [...] Jaramillo MD 08/27/25 21:11 EST Dictated using [employer] Dictation CT scan personally reviewed. This shows [...] INTRAOPERATIVE CHOLANGIOGRAM; Surgeon: Hermes Jaramillo MD; Location: [facility]; Service: General; Laterality: N/A; COLONOSCOPY [...] Row Name 09/02/25 1143 Sit-Stand Transfer Sit-Stand [place] (Transfers) minimum assist (75% patient effort);1 person assist;verbal cues -LM Assistive Device (Sit-Stand Transfers) walker, front-wheeled -LM Comment, (Sit-Stand Transfer) Vc's for hand placement. Increased time/effort needed. -LM Row Name 09/02/25 1143 Gait/Stairs (Locomotion) [place] Level (Gait) minimum assist (75% patient effort);1 [...] -LM Ankle AROM (Therapeutic Exercise) bilateral;dorsiflexion;plantarflexion;sitting;10 repetitions - Row Name 09/02/25 1146 Balance Static Sitting Balance standby assist -LM Position, Sitting Balance unsupported;sitting in chair -LM Static Standing Balance contact guard;1-person assist;verbal cues -LM Dynamic Standing Balance minimal assist;1-person assist;verbal cues -LM Position/Device Used, Standing Balance supported;walker, front-wheeled - [...] Therapist Physical Therapy Education Title: PT OT ROLLING UP MACHINE OPERATOR Therapies (In Progress) Topic: Physical Therapy (In [...] Re-Cert Due Date 09/09/25 -LM Timed Charges 78725 - PT Therapeutic Exercise Minutes 16 -LM 77296 - Gait Training Minutes 10 -LM Total Minutes Timed Charges Total Minutes 26 -LM Total Minutes 26 -LM User Jung (r) = Recorded By, (t) = Taken By, (c) = Cosigned By Initials Name Provider Type LM Rhianna Tilley, PT Physical Therapist Therapy Charges for Today Code Description Service Date Service Provider Modifiers Qty 39456260061 HC GAIT TRAINING EA 15 MIN 09/02/2025 Rhianna Tilley, PT GP 1 [id number] PT THER PROC EA 15 MIN 09/02/2025 [...] INTRAOPERATIVE CHOLANGIOGRAM; Surgeon: Hermes Jaramillo MD; Location: [facility]; Service: General; Laterality: N/A; COLONOSCOPY HERNIA REPAIR General Information Row Name 09/02/25 0810 OT Time and Intention Document Type therapy note (daily note) -AC Mode of Treatment occupational therapy -AC Row Name 09/02/25 0841 General Information Patient Profile Reviewed yes -AC Existing Precautions/Restrictions fall abdominal incision, anxiety -AC Barriers to Rehab medically complex;previous functional deficit -AC Row Name 09/02/25 0841 Cognition Orientation Status (Cognition) oriented x 3 -AC Row Name 09/02/25 0842 Safety Issues/Impairments Affecting Functional Mobility Safety Issues [...] Provider Type Patsy Abernathy OT Occupational Therapist Mobility/ADL's Row Name 09/02/25 08 Bed Mobility Bed Mobility supine-sit - Supine-Sit [place] (Bed Mobility) moderate assist (50% patient effort);verbal [...] - Row Name 09/02/25842 Bed-Chair Transfer Bed-Chair [place] (Transfers) verbal cues;minimum assist (75% patient effort) - Assistive Device (Bed-Chair Transfers) walker, front-wheeled - Comment, (Bed-Chair Transfer) increased time and effort, tremulous - Row Name 09/02/25842 Sit-Stand Transfer Sit-Stand [place] (Transfers) minimum assist (75% patient effort);verbal cues - Assistive Device (Sit-Stand Transfers) walker, front-wheeled - Comment, (Sit-Stand Transfer) VCs for hand placement and to place both feet in walker - Row Name 09/02/25 08 Toilet Transfer [place] Level (Toilet Transfer) minimum assist (75% patient [...] Mobility-Distance (Feet) -- 4 fft + 4ft -AC Functional Mobility- Safety Issues step length decreased - Row Name 09/02/25 0843 Activities of Daily Living BADL Assessment/Intervention lower body dressing;grooming;toileting - Row Name 09/02/25 0843 Lower Body Dressing Assessment/Training [place] Level (Lower Body Dressing) don;socks;dependent (less than 25% patient effort) - Position (Lower Body Dressing) supine -AC Row Name 09/02/25 0843 Grooming Assessment/Training [place] Level (Grooming) hair care, combing/brushing;oral care regimen;wash face, hands;standby assist -AC Position (Grooming) edge of bed sitting - Comment, (Grooming) bed pushed up to sink for grooming per pt request - Row Name 09/02/25 0843 Toileting Assessment/Training [place] Level (Toileting) adjust/manage clothing;perform perineal hygiene;maximum assist (25% patient effort) - Assistive Devices (Toileting) commode, bedside without drop arms -AC Position (Toileting) supported standing -AC User Jung (r) = Recorded By, (t) = Taken By, (c) = Cosigned By Initials Name Provider Type AC Patsy Abernathy, OT Occupational Therapist Obj/Interventions Row Name 09/02/25 [...] Type AC Patsy Abernathy, OT Occupational Therapist Goals/Plan No documentation. Clinical Impression Row Name 09/02/25 0897 Pain Assessment Pretreatment Pain Rating 0/10 - no pain - Posttreatment Pain Rating 0/10 - no pain -AC Row Name 09/02/25 0872 Plan of Care Review Plan of Care [...] Therapist Occupational Therapy Education Title: PT OT ROLLING UP MACHINE OPERATOR Therapies (In Progress) Topic: Occupational Therapy (In [...] Re-Cert Due Date 09/09/25 -AC Timed Charges 89023 - OT Therapeutic Activity Minutes 15 -AC 38332 - OT Self Care/Mgmt Minutes 40 -AC Total Minutes Timed Charges Total Minutes 55 -AC Total Minutes 55 -AC User Jung (r) = Recorded By, (t) = Taken By, (c) = Cosigned By Initials Name Provider Type Patsy Abernathy OT Occupational Therapist Therapy Charges for Today Code Description Service Date Service Provider Modifiers Qty 24641214162 OT THERAPEUTIC ACT EA 15 MIN 09/02/2025 Patsy Abernathy OT GO 1 [id number] OT SELF CARE/MGMT/TRAIN EA 15 MIN 09/02/2025 Patsy Abernathy OT GO 3 Patsy BurtonGudelia ARY Abernathy 09/02/2025 0890 Speech Language Pathology Notes (most recent note) Andrea Dukes MS CCC-ROLLING UP MACHINE OPERATOR at 09/02/25 1304 Acute Care - Speech Language Pathology Swallow Re-Assessment [facility] Modified Barium Swallow Study (MBS) Patient Name: [...] INTRAOPERATIVE CHOLANGIOGRAM; Surgeon: Hermes Jaramillo MD; Location: [facility]; Service: General; Laterality: N/A; COLONOSCOPY HERNIA REPAIR ROLLING UP MACHINE OPERATOR Recommendation and Plan Recommended discharge disposition is based on the functional assessment performed by PT/OT/Speech therapy (as applicable) and may not reflect the medical necessity determined by your provider or services covered by an individual patient's insurance plan or patient resource. ROLLING UP MACHINE OPERATOR Swallowing Diagnosis: mild, oral dysphagia, mod-severe, pharyngeal dysphagia (09/02/25 1100) ROLLING UP MACHINE OPERATOR Diet Recommendation: mechanical ground textures, no mixed consistencies, honey thick liquids (09/02/25 1100) Recommended Precautions and Strategies: no straw, small bites of food and sips of liquid, upright posture during/after eating, general aspiration precautions (09/02/251099) ROLLING UP MACHINE OPERATOR Rec. for Method of Medication Administration: meds whole, with thick liquids, with puree (09/02/251099) Monitor for Signs of Aspiration: yes, notify ROLLING UP MACHINE OPERATOR if any concerns (09/02/251099) Swallow Criteria for Skilled Therapeutic Interventions Met: demonstrates skilled criteria () Anticipated Discharge Disposition (ROLLING UP MACHINE OPERATOR): inpatient rehabilitation facility (09/02/251099) Rehab Potential/Prognosis, Swallowing: good, to achieve stated therapy goals (09/02/251099) Therapy Frequency (Swallow): 5 days per week (09/02/251099) Predicted Duration Therapy Intervention (Days): 2 weeks (09/02/251099) Oral Care Recommendations: Oral Care BID/PRN, Suction toothbrush (09/02/251099) Progress: declining SWALLOW EVALUATION (Last 72 Hours) ROLLING UP MACHINE OPERATOR Adult Swallow Evaluation Row Name 09/02/25109909/01/25 5040 08/31/25 0804 Rehab Evaluation Document Type re-evaluation -RS therapy [...] Pertinent History Of Current Problem See previous ROLLING UP MACHINE OPERATOR notes -RS See previous ROLLING UP MACHINE OPERATOR notes -SM See previous ROLLING UP MACHINE OPERATOR notes. Pt has been cleared for PO [...] -- 3L -RS Eating/Swallowing Skills fed by ROLLING UP MACHINE OPERATOR;needed assist;self-fed -RS self-fed;fed by ROLLING UP MACHINE OPERATOR;needed assist - fed by staff/caregiver -RS Positioning [...] Signs of aspiration;Silent aspiration;Risks of aspiration -RS ROLLING UP MACHINE OPERATOR Evaluation Clinical Impression ROLLING UP MACHINE OPERATOR Swallowing Diagnosis mild;oral dysphagia;mod-severe;pharyngeal dysphagia -RS -- moderate;oral dysphagia;pharyngeal dysphagia -RS Functional Impact risk of aspiration/pneumonia -RS -- risk of aspiration/pneumonia -RS Rehab Potential/Prognosis, Swallowing good, to achieve stated therapy goals -RS -- good, to achievestated therapy goals -RS Swallow Criteria for Skilled Therapeutic Interventions Met demonstrates skilled criteria -RS -- demonstrates skilled criteria -RS ROLLING UP MACHINE OPERATOR Treatment Clinical Impressions Treatment Assessment (ROLLING UP MACHINE OPERATOR) -- toleration of diet;clinical signs of;aspiration - -- Treatment Assessment Comments (ROLLING UP MACHINE OPERATOR) -- Pt requesting thin liquids. Explained justification of thickened liquids - -- Daily Summary of Progress (ROLLING UP MACHINE OPERATOR) -- progress toward functional goals is good - -- Plan for Continued Treatment (ROLLING UP MACHINE OPERATOR) -- continue treatment per plan of care - -- Care Plan Review -- evaluation/treatment results reviewed;patient/other agree to care plan - -- Recommendations Therapy Frequency (Swallow) 5 days per week -RS 5 days per week -SM 5 days per week -RS Predicted Duration Therapy Intervention (Days) 2 weeks -RS 2 weeks -SM 2 weeks -RS ROLLING UP MACHINE OPERATOR Diet Recommendation mechanical ground textures;no mixed consistencies;honey [...] toothbrush -SM Oral Care BID/PRN;Suction toothbrush -RS ROLLING UP MACHINE OPERATOR Rec. for Method of Medication Administration meds whole;with thick liquids;with puree -RS meds whole;with thick liquids - meds whole;with thick liquids;meds via alternate route -RS Monitor for Signs of Aspiration yes;notify ROLLING UP MACHINE OPERATOR if any concerns -RS yes;notify ROLLING UP MACHINE OPERATOR if any concerns -SM yes;notify ROLLING UP MACHINE OPERATOR if any concerns -RS Anticipated Discharge Disposition (ROLLING UP MACHINE OPERATOR) inpatient rehabilitation facility -RS inpatient rehabilitation facility - inpatient rehabilitation facility -RS User Jung (r) = Recorded By, (t) = Taken By, (c) = Cosigned By Initials Name Effective Dates RS Andrea Dukes MS CCC-ROLLING UP MACHINE OPERATOR 07/03/23 - Nora Weiner MS CF-ROLLING UP MACHINE OPERATOR 03/24/25 - EDUCATION The patient has been educated in the following areas: Dysphagia (Swallowing Impairment) Modified Diet Instruction. ROLLING UP MACHINE OPERATOR GOALS Row Name 09/02/25 1100 09/01/25 1530 08/31/25 0874 (LTG) Patient will demonstrate functional swallow for Diet Texture (Demonstrate functional swallow) regular textures -RS regular textures -SM regular textures -RS Liquid viscosity (Demonstrate functional swallow) thin liquids -RS thin liquids -SM thin liquids -RS [place] (Demonstrate functional swallow) independently (over 90% accuracy) [...] signs of distress;with adequate oral prep/transit/clearance -RS [place] (Tolerate trials) with minimal cues (75-90% accuracy) -RS with minimal cues (75-90% accuracy) -SM with minimal cues (75-90% accuracy) -RS Time Frame (Tolerate trials) 1 week -RS 1 week -SM 1 week -RS Progress/Outcomes (Tolerate trials) goal revised this date -RS goal revised this date -SM new goal -RS Comment (Tolerate trials) -- Upgraded to [facility] grnd solids -SM -- (STG) Patient will [...] signs of distress;with adequate oral prep/transit/clearance -RS [place] (Tolerate therapeutic trials) with minimal cues (75-90% [...] w/ solid, but OK [facility] and monitor tolerance -SM -- (STG) Lingual Strengthening Goal 1 (ROLLING UP MACHINE OPERATOR) Activity (Lingual Strengthening Goal 1, ROLLING UP MACHINE OPERATOR) increase tongue back strength -RS increase tongue backstrength -SM increase tongue back strength -RS Increase Tongue Back Strength lingual resistance exercises -RS lingual resistance exercises -SM lingual resistance exercises -RS [place]/Accuracy (Lingual Strengthening Goal 1, ROLLING UP MACHINE OPERATOR) with minimal cues (75- 90% accuracy) -RS with minimal cues (75-90% accuracy) -SM with minimal cues (75- 90% accuracy) -RS Time Frame (Lingual Strengthening Goal 1, ROLLING UP MACHINE OPERATOR) 1 week -RS 1 week -SM 1 week -RS Progress/Outcomes (Lingual Strengthening Goal 1, ROLLING UP MACHINE OPERATOR) goal ongoing -RS continuing progress toward goal -SM new goal -RS (STG) Pharyngeal Strengthening Exercise Goal 1 (ROLLING UP MACHINE OPERATOR) Activity (Pharyngeal Strengthening Goal 1, ROLLING UP MACHINE OPERATOR) increase timing;increase superior movement of the hyolaryngeal [...] Retraction mike -RS mike -SM mike -RS [place]/Accuracy (Pharyngeal Strengthening Goal 1, ROLLING UP MACHINE OPERATOR) with minimal cues (75-90% accuracy) -RS with minimal cues (75-90% accuracy) -SM with minimal cues (75-90% accuracy) -RS Time Frame (Pharyngeal Strengthening Goal 1, ROLLING UP MACHINE OPERATOR) 1 week -RS 1 week -SM 1 week -RS Progress/Outcomes (Pharyngeal Strengthening Goal 1, ROLLING UP MACHINE OPERATOR) goal ongoing -RS continuing progress toward goal -SM new goal -RS Comment (Pharyngeal Strengthening Goal 1, ROLLING UP MACHINE OPERATOR) -- Demo'd all and left at bedside - -- User Jung (r) = Recorded By, (t) = Taken By, (c) = Cosigned By Initials Name Provider Type RS Andrea Dukes MS CCC-ROLLING UP MACHINE OPERATOR Speech and Language Pathologist Nora Weiner MS CF-ROLLING UP MACHINE OPERATOR Speech and Language Pathologist Time Calculation: Time Calculation- ROLLING UP MACHINE OPERATOR Row Name 09/02/25 1302 Time Calculation- ROLLING UP MACHINE OPERATOR ROLLING UP MACHINE OPERATOR Start Time 1100 -RS ROLLING UP MACHINE OPERATOR Received On 09/02/25 -RS Untimed Charges 89758-YP Motion Fluoro Eval Swallow Minutes 61 -RS Total Minutes Untimed Charges Total Minutes 61 -RS Total Minutes 61 -RS User Jung (r) = Recorded By, (t) = Taken By, (c) = Cosigned By Initials Name Provider Type RS Andrea Dukes MS CCC-ROLLING UP MACHINE OPERATOR Speech and Language Pathologist Therapy Charges for Today Code Description Service Date Service Provider Modifiers Qty [id number] HC ST MOTION FLUORO EVAL SWALLOW 4 09/02/2025 Andrea Dukes MS CCC- SLP GN 1 [place] MS MARIA INES Dukes 09/02/2025 1305 * Daryl Schwab RN - 09/01/2025 12:36 PM EST Images from the original note were not included. Loc Thurman (84 y.o. Male) From Daryl Schwab RN CM [id number] Date of 1940 Social Security Number [id number] [place] [address] Gnosticism Bahai Marital Status Admission Date 08/27/2025 Admission Type Urgent Admitting Provider Flora Baig MD Attending Provider Flora Baig MD Department, Room/Bed [address], S581/1 Discharge Date Discharge Disposition Discharge [...] Plan Fax Number Effective Dates [phone] 11/20/2003 - None Entered [place] [address] Subscriber Name Subscriber Date Member ID LOC THURMAN 1940 [id number] Secondary Coverage Payor Plan Insurance Group Employer/Plan Group [employer] Payor Plan Address Payor Plan Phone Number Payor Plan Fax Number Effective Dates [address] [phone] 10/20/2015 - None Entered [facility] [id number] Subscriber Name Subscriber Date Member ID LOC THURMAN 1940 [id number] Emergency Contacts Assistant Golf Coach (Rel.) Home Phone Work Phone Mobile Phone Sarabjit Thurman (Son) -- -- [phone] Alexandru Thurman (Grandchild) -- -- [phone] History & Physical Linda Rubin MD at 08/27/25 2340 REVIT DRAFTER PROGRESS NOTE SUBJECTIVE Loc 84 y.o. male is followed for:No chief complaint on file. Pancreatitis Vasovagal syncope HTN (hypertension) Mixed hyperlipidemia COPD (chronic obstructive pulmonary disease) Former tobacco use History of prostate cancer BPH with obstruction/lower urinary tract symptoms As an Hose Tester, we provide an integrated approach to the [...] mass who [facility] on [facility]2025 because of evaluation of possible pancreatitis and cholecystitis. Patient underwent bronchoscopy yesterday for lung nodules/mass. Did have scant hemoptysis mixed in with saliva yesterday evening postprocedure. Has not had any olga hemoptysis orno further episodes. Today he woke up with upper abdominal pain after eating breakfast as well as nausea and vomiting. Went to [facility] and during transport her head [...] social history were reviewed and updated in [facility] as appropriate. Review of Systems As [...] (08/27/252058) Best Verbal Response: 5-->(V5) oriented (08/27/252058) [place] Coma Scale Score: 15 (08/27/252058) Lines, Drains [...] MD 08/27/2025 10:25 PM EST Workstation ID: [id number] Echo: Results: Reviewed. I reviewed the patient's [...] 0059 Librado Bangura MD at 08/27/25 1910 [facility] Medicine Services HISTORY AND PHYSICAL Patient [...] (2014), and tobacco use who presents to [facility] via transfer from [facility] for evaluation of pancreatitis and distended gallbladder. History of Present Illness Reason for Admit: Abdominal pain with nausea vomiting The patient presents to [facility] via transfer from [facility] for evaluation of abdominal pain with nausea and vomiting. He reports experiencing abdominal pain and chest discomfort, which began this morning after consuming a bowl of cereal for breakfast. The pain, described as a constant ache across his lower chest andupper abdomen, initially peaked at a severity of 10/10. [facility], morphine was administered, but it [...] and sees Dr. Brooks for cardiology in [place]. Review of Systems Constitutional: Positive for activity [...] (2014), and tobacco use who presents to [facility] via transfer from [facility] for evaluation of pancreatitis and distended gallbladder. Patient/family describe syncopal episode in ambulance in route from [facility] this afternoon subjective SBP in [...] and lactate 4 - Received Zosyn at [facility], continue - Repeat labs - [...] 08/27/25, 9:11 PM EST Patient or patient practice representative verbalized consent for the use of Ambient Listening during the visit for chart documentation. Attending Admission Attestation I have performed an independent jjkp-iw-[id number] diagnostic evaluation including performing an independent physical examination. I approve of the documented plan of care above that was reviewed and developed with the advanced auto service instructor (APC) and take responsibility for that plan along with itsassociated risks. I have updated the HPI as appropriate. Brief HPI Loc Thurman is a 84 y.o. male with significant medical history for COPD, HTN, HLD, high-grade prostate cancer s/p initiation of external beam radiation and hormonal therapy (2014), and tobacco use who presents to [facility] via transfer from [facility] for evaluation of pancreatitis and [...] Bangura MD 08/27/25 Contains text generated by PowerFile [id number] Operative/Procedure Notes (most recent note) Hermes Jaramillo MD at 08/28/25 0820 Operative Report Patient Name: Loc Thurman Date of : 1940 [id number] 08/28/2025 PREOPERATIVE DIAGNOSIS: Acute cholecystitis with sepsis POSTOPERATIVE DIAGNOSIS: Same PROCEDURE PERFORMED: Laparoscopic cholecystectomy with intraoperative cholangiography SURGEON: Hermes Jaramillo MD MD PHYSICIAN DERMATOLOGIST: Annie Jorgensen PA-C. Annie Jorgensen PA-C was [...] of 0 Vicryl was then placed in ktorso-dd-qxvdu fashion around the defect, and a blunt [...] None Hermes Jaramillo MD 08/28/2025 09:22 EST 0950 Physician Progress Notes (most recent note) Flora Baig MD at 09/01/25 1036 [facility] Medicine Services PROGRESS NOTE Patient Name: [...] not displayed. Lab 09/01/2540008/31/25 0338 08/30/25 0403 08/28/25 0955 08/28/25 0613 [...] Lab Results None Microbiology Results Abnormal None ROLLING UP MACHINE OPERATOR FEES - Fiberoptic Endo Eval Swallow Result [...] Consult Orders 1. Inpatient General Surgery Consult [[id number]] ordered by Nesha Lopes APRN at 08/27/252003 Patient Name: Loc Thurman Date of : 1940 [id number] Patient Care Team: Provider, No Known as PCP - General General Surgery Consult Note Date of Consultation: 08/27/25 Referring Physician : Librado aBngura MD Reason for Consult : Pancreatitis Subjective I have been asked by Librado Bangura MD to see Loc Thurman , a 84 y.o. male in consultation for pancreatitis. Mr. Thurman has a known history of COPD, a past history of pancreatitis, hypertension, prostate cancer status post XRT, hypercholesterolemia, and a relatively newly diagnosed left lung mass. He underwent bronchoscopy at [facility] yesterday. He states postoperatively he did well [...] for cancers Social History: Pt lives in [place]. Tobacco use: Denies , quit 35 years [...] Jaramillo MD 08/27/25 21:11 EST Dictated using Stevia Firston Dictation CT scan personally reviewed. This shows [...] INTRAOPERATIVE CHOLANGIOGRAM; Surgeon: Hermes Jaramillo MD; Location: [facility] OR; Service: General; Laterality: N/A; COLONOSCOPY [...] Mobility Bed Mobility supine-sit (P) -SULAIMAN Supine-Sit [place] (Bed Mobility) moderate assist (50% patient effort);2 person assist;verbal cues (P) -SULAIMAN Assistive Device (Bed Mobility) bed rails;head of bed elevated;repositioning sheet (P) -SULAIMAN Comment, (Bed Mobility) VCs for sequencing, assist at trunk and BLEs, increased time and effort, R lateral lean sitting EOB (P) -SULAIMAN Row Name 08/31/25 1027 Bed-Chair Transfer Bed-Chair [place] (Transfers) moderate assist (50% patient effort);2 person assist;verbal cues(P) -SULAIMAN Assistive Device (Bed-Chair Transfers) other (see comments) (P) BUE support -SULAIMAN Comment, (Bed-Chair Transfer) VCs for sequencing (P) -SULAIMAN Row Name 08/31/25 1027 Sit-Stand Transfer Sit-Stand [place] (Transfers) minimum assist (75% patient effort);2 person assist;verbal cues (P) -SULAIMAN Assistive Device (Sit-Stand Transfers) other (see comments) (P) B UE support -SULAIMAN Comment, (Sit-Stand Transfer) VCs for upright posture (P) -SULAIMAN Row Name 08/31/25 1027 Gait/Stairs (Locomotion) [place] Level (Gait) moderate assist (50% patient effort);2 person assist;verbal cues (P) -SULAIMAN Assistive Device (Gait) other (see comments) (P) B FIXED INCOME DIRECTOR -SULAIMAN Distance in Feet (Gait) 16 (P) [...] dynamic balance;standing static balance;standing dynamic balance (P) -SUALIMAN Static Sitting Balance minimal assist (P) -SULAIMAN [...] IPPT. Pt amb 16 ft w/ B FIXED INCOME DIRECTOR modAx2, further mobility limited by weakness and [...] Student Physical Therapy Education Title: PT OT ROLLING UP MACHINE OPERATOR Therapies (In Progress) Topic: Physical Therapy (In [...] Received On 08/31/25 (P) -SULAIMAN Timed Charges 75250 - PT Therapeutic Activity Minutes 24 (P) -SULAIMAN Total Minutes Timed Charges Total Minutes 24 (P) -SULAIMAN Total Minutes 24 (P) -SULAIMAN User Jung (r) = Recorded By, (t) = Taken By, (c) = Cosigned By Initials Name Provider Type Tee Taylor, PT Student PT Student Therapy Charges for Today Code Description Service Date Service Provider Modifiers Qty 22542900586 HC PT THERAPEUTIC ACT EA 15 MIN [...] INTRAOPERATIVE CHOLANGIOGRAM; Surgeon: Hermes Jaramillo MD; Location: [facility]; Service: General; Laterality: N/A; COLONOSCOPY HERNIA REPAIR General Information Row Name 08/31/25 1338 OT Time and Intention Document Type therapy note (daily note) -AN Mode of Treatment occupational therapy -AN Row Name 08/31/25 133 General Information Patient Profile Reviewed yes -AN Existing Precautions/Restrictions fall;oxygen therapy device and L/min;other (see comments) abdominal incision; confusion; NG -AN Barriers to Rehab medically complex;previous functional deficit;cognitive status -AN Row Name 08/31/25 133 Cognition Orientation Status (Cognition) oriented x 3 [...] OT Occupational Therapist Mobility/ADL's Row Name 08/31/25 1333 Bed Mobility Comment, (Bed Mobility) UIC upon [...] Occupational Therapist Outcome Measures Row Name 08/31/25 134 How much help from another is currently [...] Student Occupational Therapy Education Title: PT OT ROLLING UP MACHINE OPERATOR Therapies (In Progress) Topic: Occupational Therapy (Done) [...] OT Received On 08/31/25 -AN Timed Charges 83240 - OT Therapeutic Exercise Minutes 12 -AN Total Minutes Timed Charges Total Minutes 12 -AN Total Minutes 12 -AN User Jung (r) = Recorded By, (t) = Taken By, (c) = Cosigned By Initials Name Provider Type Radha Liao OT Occupational Therapist Therapy Charges for Today Code Description Service Date Service Provider Modifiers Qty [id number] HC OT THER PROC EA 15 MIN 08/31/2025 Radha Smith OT GO 1 Radha Smith OT 08/31/2025 1349 Speech Language Pathology Notes (most recent note) Andrea Dukes MS [facility]-ROLLING UP MACHINE OPERATOR at 08/31/25 0921 Acute Care - Speech Language Pathology Swallow [...] INTRAOPERATIVE CHOLANGIOGRAM; Surgeon: Hermes Jaramillo MD; Location: [facility]; Service: General; Laterality: N/A; COLONOSCOPY HERNIA REPAIR ROLLING UP MACHINE OPERATOR Recommendation and Plan Recommended discharge disposition is based on the functional assessment performed by PT/OT/Speech therapy (as applicable) and may not reflect the medical necessity determined by your provider or services covered by an individual patient's insurance plan or patient resource. ROLLING UP MACHINE OPERATOR Swallowing Diagnosis: moderate, oral dysphagia, pharyngeal dysphagia (08/31/25814) ROLLING UP MACHINE OPERATOR Diet Recommendation: puree, nectar thick liquids, other (see comments) (PO diet at discretion of surgeon only) (08/31/25814) Recommended Precautions and Strategies: upright posture during/after eating, general aspiration precautions (08/31/25814) ROLLING UP MACHINE OPERATOR Rec. for Method of Medication Administration: meds whole, with thick liquids, meds via alternate route (08/31/25814) Monitor for Signs of Aspiration: yes, notify ROLLING UP MACHINE OPERATOR if any concerns (08/31/25814) Swallow Criteria for Skilled Therapeutic Interventions Met: demonstrates skilled criteria () Anticipated Discharge Disposition (ROLLING UP MACHINE OPERATOR): inpatient rehabilitation facility (08/31/25814) Rehab Potential/Prognosis, Swallowing: good, to achieve stated therapy goals (08/31/25814) Therapy Frequency (Swallow): 5 days per week (08/31/25814) Predicted Duration Therapy Intervention (Days): 2 weeks (08/31/25814) Oral Care Recommendations: Oral Care BID/PRN, Suction toothbrush (08/31/25814) Progress: improving SWALLOW EVALUATION (Last 72 Hours) ROLLING UP MACHINE OPERATOR Adult Swallow Evaluation Row Name 08/31/2581408/30/25 1005 [...] Pertinent History Of Current Problem See previous ROLLING UP MACHINE OPERATOR notes. Pt has been cleared for PO [...] Skills fed by staff/caregiver -RS self-fed;fed by ROLLING UP MACHINE OPERATOR -AC (r) IG (t) AC (c) Positioning [...] of aspiration;Silent aspiration;Risks of aspiration -RS -- ROLLING UP MACHINE OPERATOR Evaluation Clinical Impression ROLLING UP MACHINE OPERATOR Swallowing Diagnosis moderate;oral dysphagia;pharyngeal dysphagia -RS suspected [...] weeks -AC (r) IG (t) AC (c) ROLLING UP MACHINE OPERATOR Diet Recommendation puree;nectar thick liquids;other (see comments) [...] toothbrush -AC (r) IG (t) AC (c) ROLLING UP MACHINE OPERATOR Rec. for Method of Medication Administration meds whole;with thick liquids;meds via alternate route -RS meds via alternate route -AC (r) IG (t) AC (c) Monitor for Signs of Aspiration yes;notify ROLLING UP MACHINE OPERATOR if any concerns -RS yes;notify ROLLING UP MACHINE OPERATOR if any concerns -AC (r) IG (t) AC (c) Anticipated Discharge Disposition (ROLLING UP MACHINE OPERATOR) inpatient rehabilitation facility -RS inpatient rehabilitation facility -AC (r) IG (t) AC (c) User Jung (r) = Recorded By, (t) = Taken By, (c) = Cosigned By Initials Name Effective Dates AC Lea Echols, MS [facility]-ROLLING UP MACHINE OPERATOR 11/22/22 - RS Andrea Dukes MS [facility]-ROLLING UP MACHINE OPERATOR 07/03/23 - Alma Arshad, Speech Therapy Student 06/08/25 - EDUCATION The patient has been educated in the following areas: Dysphagia (Swallowing Impairment) Modified Diet Instruction. ROLLING UP MACHINE OPERATOR GOALS Row Name 08/31/25 0815 (LTG) Patient will demonstrate functional swallow for Diet Texture (Demonstrate functional swallow) regular textures -RS Liquid viscosity (Demonstrate functional swallow) thin liquids -RS [place] (Demonstrate functional swallow) independently (over 90% accuracy) -RS Time Frame (Demonstrate functional swallow) 2 weeks -RS Progress/Outcomes (Demonstrate functional swallow) new goal -RS (STG) Patient will tolerate trials of Consistencies Trialed (Tolerate trials) pureed textures;nectar/ mildly thick liquids -RS Desired Outcome (Tolerate trials) without signs/symptoms of aspiration;without signs of distress;with adequate oral prep/transit/clearance -RS [place] (Tolerate trials) with minimal cues (75-90% accuracy) -RS Time Frame (Tolerate trials) 1 week -RS Progress/Outcomes (Tolerate trials) new goal -RS (STG) Patient will tolerate therapeutic trials of Consistencies Trialed (Tolerate therapeutic trials) soft to chew (chopped) textures;nectar/ mildly thick liquids -RS Desired Outcome (Tolerate therapeutic trials) without signs/symptoms of aspiration;without signs ofdistress;with adequate oral prep/transit/clearance -RS [place] (Tolerate therapeutic trials) with minimal cues (75-90% accuracy) -RS Time Frame (Tolerate therapeutic trials) 1 week -RS Progress/Outcomes (Tolerate therapeutic trials) new goal -RS (STG) Lingual Strengthening Goal 1 (ROLLING UP MACHINE OPERATOR) Activity (Lingual Strengthening Goal 1, ROLLING UP MACHINE OPERATOR) increase tongue back strength -RS Increase Tongue Back Strength lingual resistance exercises -RS [place]/Accuracy (Lingual Strengthening Goal 1, ROLLING UP MACHINE OPERATOR) with minimal cues (75- 90% accuracy) -RS Time Frame (Lingual Strengthening Goal 1, ROLLING UP MACHINE OPERATOR) 1 week -RS Progress/Outcomes (Lingual Strengthening Goal 1, ROLLING UP MACHINE OPERATOR) new goal -RS (STG) Pharyngeal Strengthening Exercise Goal 1 (ROLLING UP MACHINE OPERATOR) Activity (Pharyngeal Strengthening Goal 1, ROLLING UP MACHINE OPERATOR) increase timing;increase superior movement of the hyolaryngeal [...] -RS Increase Tongue Base Retraction mike -RS [place]/Accuracy (Pharyngeal Strengthening Goal 1, ROLLING UP MACHINE OPERATOR) with minimal cues (75-90% accuracy) -RS Time Frame (Pharyngeal Strengthening Goal 1, ROLLING UP MACHINE OPERATOR) 1 week -RS Progress/Outcomes (Pharyngeal Strengthening Goal 1, ROLLING UP MACHINE OPERATOR) new goal -RS User Jung (r) = Recorded By, (t) = Taken By, (c) = Cosigned By Initials Name Provider Type Andrea Mitchell MS CCC-ROLLING UP MACHINE OPERATOR Speech and Language Pathologist Time Calculation: Time Calculation- ROLLING UP MACHINE OPERATOR Row Name 08/31/25 0953 Time Calculation- ROLLING UP MACHINE OPERATOR ROLLING UP MACHINE OPERATOR Start Time 0815 -RS ROLLING UP MACHINE OPERATOR Received On 08/31/25 -RS Untimed Charges 09659-YI Fiberoptic Endo Eval Swallow Minutes 105 -RS Total Minutes Untimed Charges Total Minutes 105 -RS Total Minutes 105 -RS User Jung (r) = Recorded By, (t) = Taken By, (c) = Cosigned By Initials Name Provider Type Andrea Mitchell MS CCC-ROLLING UP MACHINE OPERATOR Speech and Language Pathologist Therapy Charges for Today Code Description Service Date Service Provider Modifiers Qty [id number] ST FIBEROPTIC ENDO EVAL SWALL 7 08/31/2025 Andrea Dukes MS CCC- ROLLING UP MACHINE OPERATOR GN 1 Andrea Dukes MS CCC-ISAIAH 08/31/2025 0954 * Félix Azul RN - 08/31/2025 8:27 AM EST Images from the original note were not included. Loc Thurman (84 y.o. Male) Cayetano Azul RNcarpenter labor supervisor [phone] Date of 1940 Social Security Number [id number] [place] [address] Gnosticism Bahai Marital Status Admission Date 08/27/2025 Admission Type Urgent Admitting Provider Linda Rubin MD Attending Provider Cristian Mckee DO Department, Room/Bed [address], [address]1 Discharge Date Discharge Disposition Discharge [...] Payor Plan Fax Number Effective Dates [phone] 11/20/2003 - None Entered [facility] [id number] Subscriber Name Subscriber Date Member ID LOC THURMAN 1940 [id number] Secondary Coverage Payor Plan Insurance Group Employer/Plan Group [facility] Payor Plan Address Payor Plan Phone Number Payor Plan Fax Number Effective Dates [address] [phone] 10/20/2015 - None Entered [facility] [id number] Subscriber Name Subscriber Date Member ID LOC THURMAN 1940 [id number] Emergency Contacts Assistant Golf Coach (Rel.) Home Phone Work Phone Mobile Phone Sarabjit Thurman (Son) -- -- [phone] Alexandru Thurman (Grandchild) -- -- [phone] History & Physical ScottieLinda MD at 08/27/25 2340 REVIT DRAFTER PROGRESS NOTE SUBJECTIVE Loc 84 y.o. male is followed for:No chief complaint on file. Pancreatitis Vasovagal syncope HTN (hypertension) Mixed hyperlipidemia COPD (chronic obstructive pulmonary disease) Former tobacco use History of prostate cancer BPH with obstruction/lower urinary tract symptoms As an Hose Tester, we provide an integrated approach to the [...] mass who was [facility] on [facility]/2025 because of evaluation of possible pancreatitis and cholecystitis. Patient underwent bronchoscopy yesterday for lung nodules/mass. Did have scant hemoptysis mixed in with saliva yesterday evening postprocedure. Has not had any olga hemoptysis orno further episodes. Today he woke up with upper abdominal pain after eating breakfast as well as nausea and vomiting. Went to [facility] and during transport her head [...] social history were reviewed and updated in [facility] as appropriate. Review of Systems As [...] MD 08/27/2025 10:25 PM EST Workstation ID: [id number] Echo: Results: Reviewed. I reviewed the patient's [...] Medicine 005 Librado Bangura MD at 08/27/25 1910 [facility] Medicine Services HISTORY AND PHYSICAL Patient [...] (2014), and tobacco use who presents to [facility] via transfer from [facility] for evaluation of pancreatitis and distended gallbladder. History of Present Illness Reason for Admit: Abdominal pain with nausea vomiting The patient presents to [facility] via transfer from [facility] for evaluation of abdominal pain with nausea and vomiting. He reports experiencing abdominal pain and chest discomfort, which began this morning after consuming a bowl of cereal for breakfast. The pain, described as a constant ache across his lower chest andupper abdomen, initially peaked at a severity of 10/10. [facility], morphine was administered, but it [...] and sees Dr. Brooks for cardiology in [place]. Review of Systems Constitutional: Positive for activity [...] (2014), and tobacco use who presents to [facility] via transfer from [facility] for evaluation of pancreatitis and distended gallbladder. Patient/family describe syncopal episode in ambulance in route from [facility] this afternoon subjective SBP in [...] and lactate 4 - Received Zosyn at [facility], continue - Repeat labs - [...] 08/27/25, 9:11 PM EST Patient or patient practice representative verbalized consent for the use of Ambient Listening during the visit for chart documentation. Attending Admission Attestation I have performed an independent tbsi-wa-fqmq diagnostic evaluation including performing an independent physical examination. I approve of the documented plan of care above that was reviewed and developed with the advanced auto service instructor (APC) and take responsibility for that plan along with itsassociated risks. I have updated the HPI as appropriate. Brief HPI Loc Thurman is a 84 y.o. male with significant medical history for COPD, HTN, HLD, high-grade prostate cancer s/p initiation of external beam radiation and hormonal therapy (2014), and tobacco use who presents to [facility] via transfer from [facility] for evaluation of pancreatitis and [...] Bangura MD 08/27/25 Contains text generated by PowerFile [id number] Vital Signs (last day) Date/Time Temp Temp [...] -- -- 83 16 161/80 Lying 98 08/30/252199 -- -- 84 16 155/75 Sitting 98 08/30/252108 -- -- 82 -- 172/84 -- -- [...] PRN Hermes Jaramillo MD 0.5 mg at110/30/24 210 hydrOXYzine (ATARAX) tablet 25 mg 25 mg Oral TID PRN Alma Rosa Lucas, STEREOTYPER APPRENTICE 25 mg at 08/29/25 2353 ipratropium-albuterol (DUO-NEB) [...] Name: Loc Thurman Date of : 1940 [id number] 08/28/2025 PREOPERATIVE DIAGNOSIS: Acute cholecystitis with sepsis POSTOPERATIVE DIAGNOSIS: Same PROCEDURE PERFORMED: Laparoscopic cholecystectomy with intraoperative cholangiography SURGEON: Hermes Jaramillo MD MD PHYSICIAN DERMATOLOGIST: Annie Jorgensen PA-C. Annie Jorgensen PA-C was [...] of 0 Vicryl was then placed in jhbopl-xo-dwtzt fashion around the defect, and a blunt [...] Name: Loc Thurman Date of : 1940 [id number] Surgery Progress Note Date of visit: 08/31/2025 Subjective Subjective: Feeling better. Tolertaing trophic feeds, had a BM. Objective Objective: BP 151/71 (BP Location: Right arm, Patient Position: Lying) Pulse 83 Temp 98 ??F (36.7 ??C) (Oral) Resp 20 Ht 172.7 cm (67.99 ) Wt 94.2 kg (207 lb 10.8 oz) SpO2 96% BMI 31.58 kg/m?? Intake/Output Summary (Last 24 hours) at 08/31/2025 07 Last data filed at 08/31/2025 0600 Gross [...] display. Hermes Jaramillo MD 08/31/2025 07:24 EST 0792 Brian Hughes MD at 08/30/25 1208 Pulmonary/Critical [...] HISTORY Tobacco: Former smoker History taken from: PM//Social History were reviewed and updated appropriately in [...] H2O): [6 cm H20] 6 cm H20 MI SUP: [10 cm H20] 10 cm H20 [...] of today's exam. Electronically signed by: Brian Huhges MD 08/30/25 12:08 EST Results Review: I [...] a lung nodule by Dr. Castillo in [place], [place] on 08/26/2025. Subsequently, he was seen at [facility] for acute abdominal pain and sepsis and was transferred to [facility] for further evaluation. He was diagnosed with [...] MD 08/30/25 12:08 EST Patient or patient practice representative verbalized consent for the use of Ambient Listening during the visit for chart documentation. *Exception: for ICU patients or for instances where consent for use was not given, active listeningwas used only for dictation and was not used to record patient or family. 1236 Hermes Jaramillo MD at 08/30/25 0955 Patient Name: Loc Thurman Date of : 1940 [id number] Surgery Progress Note Date of visit: 08/30/2025 [...] INTRAOPERATIVE CHOLANGIOGRAM; Surgeon: Hermes Jaramillo MD; Location: [facility]; Service: General; Laterality: N/A; COLONOSCOPY [...] Bed Mobility Bed Mobility supine-sit -KG Supine-Sit [place] (Bed Mobility) moderate assist (50% patient effort);2 [...] Row Name 08/30/25 133 Bed-Chair Transfer Bed-Chair [place] (Transfers) maximum assist (25% patient effort);2 person assist;verbal cues -KG Assistive Device (Bed-Chair Transfers) other (see comments) B UE support -KG Row Name 08/30/25 133 Sit-Stand Transfer Sit-Stand [place] (Transfers) moderate assist (50% patient effort);2 person assist;verbal cues-KG Assistive Device (Sit-Stand Transfers) other (see comments) B UE support -KG Row Name 08/30/25 1334 Gait/Stairs (Locomotion) [place] Level (Gait) moderate assist (50% patient effort);2 [...] PT Physical Therapist Obj/Interventions Row Name 08/30/25 178 Range of Motion Comprehensive General Range of [...] PT) sit to supine;supine to sit -KG [place] Level/Cues Needed (Bed Mobility Goal 1, PT) minimum assist (75% or more patient effort) -KG Time Frame (Bed Mobility Goal 1, PT) short term goal (STG);5 days -KG Progress/Outcomes (Bed Mobility Goal 1, PT) goal ongoing -KG Row Name 08/30/251338 Transfer Goal 1 (PT) Activity/Assistive Device (Transfer Goal 1, PT) jij-nz-vjpck/jumvi-if-ych;vyj-er-hkfog/ujogb-ui-cgb;walker, rolling -KG [place] Level/Cues Needed (Transfer Goal 1, PT) minimum assist (75% or more patient effort) -KG Time Frame (Transfer Goal 1, PT) snf goal (LTG);10 days -KG Progress/Outcome (Transfer Goal 1, PT) goal ongoing -KG Row Name 08/30/251338 Gait Training Goal 1 (PT) Activity/Assistive Device (Gait Training Goal 1, PT) gait (walking locomotion);assistive device use;walker, rolling -KG [place] Level (Gait Training Goal 1, PT) moderate assist (50-74% patient effort) -KG Distance (Gait Training Goal 1, PT) 50 feet -KG Time Frame (Gait Training Goal 1, PT) silviculture teacher goal (LTG);10 days -KG Progress/Outcome (Gait Training Goal 1, PT) goal ongoing -KG Row Name 08/30/251338 Therapy Assessment/Plan (PT) Planned Therapy Interventions (PT) balance training;bed mobility training;gait training;strengthening;transfer training -KG User Jung (r) = Recorded By, (t) = Taken By, (c) = Cosigned By Initials Name Provider Type Flora Finley, PT Physical Therapist Clinical Impression [facility] 08/30/25 1337 Pain Additional Documentation Pain Scale: FACES Pre/Post-Treatment (Group) -KG [facility] 08/30/25 1337 Pain Scale: FACES Pre/Post-Treatment Pain: FACES Scale, Pretreatment 4-->hurts little more -KG Posttreatment Pain Rating 6-->hurts even more -KG [facility] 08/30/25 1337 Plan of Care Review Plan [...] chair and BSC. Pt's decreased independence warrants assistant golf coach care. Recommend D/C to IP rehab facility. -KG [facility] 08/30/25 1337 Therapy Assessment/Plan (PT) Patient/Family Therapy Goals Statement (PT) return to PLOF -KG Rehab Potential (PT) good -KG Criteria for Skilled Interventions Met (PT) yes;skilled treatment is necessary -KG Therapy Frequency (PT) daily -KG Predicted Duration of Therapy Intervention (PT) 10 days -KG [facility] 08/30/25 1337 Vital Signs Pre Systolic BP [...] Standing -KG Post Patient Position Sitting -KG [facility] 08/30/25 1337 Positioning and Restraints Pre-Treatment Position in bed -KG Post Treatment Position bsc -KG On BS commode notified nsg;sitting;call light within reach;encouraged to call for assist;with family/caregiver -KG User Jung (r) = Recorded By, (t) = Taken By, (c) = Cosigned By Initials Name Provider Type DION Flora Galvan, PT Physical Therapist Outcome Measures [facility] 08/30/25 1340 How much help from another [...] Therapist Physical Therapy Education Title: PT OT ROLLING UP MACHINE OPERATOR Therapies (In Progress) Topic: Physical Therapy (In [...] chair and BSC. Pt's decreased independence warrants assistant golf coach care. Recommend D/C to IP rehab facility. [...] Description Service Date Service Provider Modifiers Qty [id number] HC PT EVAL MOD COMPLEXITY 4 08/30/2025 [...] INTRAOPERATIVE CHOLANGIOGRAM; Surgeon: Hermes Jaramillo MD; Location: [facility]; Service: General; Laterality: N/A; COLONOSCOPY [...] into deficits/self-awareness;safety precaution awareness;safety precautions follow-through/compliance;sequencing abilities [facility] [place]airments Affecting Function (Mobility) balance;cognition;endurance/activity tolerance;pain;postural/trunk control;shortness of breath;strength - Cognitive Impairments, Mobility Safety/Performance awareness, need for assistance;insight into deficits/self-awareness;safety precaution awareness;safety precaution follow-through;sequencing abilities - User Jung (r) = Recorded By, (t) = Taken By, (c) = Cosigned By Initials Name Provider Type Aury Fitzgerald OT Occupational Therapist Mobility/ADL's Row Name 08/30/25 1141 Bed Mobility Bed Mobility supine-sit - Supine-Sit [place] (Bed Mobility) moderate assist (50% patient effort);2 [...] mod Ax2 for STS & SPT from [id number] but req max Ax2 for SPT from [id number]-me-JJS. - Row Name 08/30/25 1141 Bed-Chair Transfer Bed-Chair [place] (Transfers) moderate assist (50% patient effort);2 person assist;verbal cues- Assistive Device (Bed-Chair Transfers) other (see comments) BUE support - Row Name 08/30/25 1141 Sit-Stand Transfer Sit-Stand [place] (Transfers) moderate assist (50% patient effort);2 person assist;verbal cues- Assistive Device (Sit-Stand Transfers) other (see comments) - Row Name 08/30/25 1141 Stand-Sit Transfer Stand-Sit [place] (Transfers) moderate assist (50% patient effort);2 person assist;verbal cues- Assistive Device (Stand-Sit Transfers) other (see comments) - Row Name 08/30/25 1141 Toilet Transfer Type (Toilet Transfer) sit-stand;stand-sit;stand pivot/stand step - [place] Level (Toilet Transfer) maximum assist (25% patient effort);2 person assist;verbal cues - Assistive Device (Toilet Transfer) commode, bedside without drop arms - Row Name 08/30/25 1141 Activities of Daily Living BADL Assessment/Intervention lower body dressing;upper body dressing - Row Name 08/30/25 1141 Lower Body Dressing Assessment/Training [place] Level (Lower Body Dressing) don;socks;dependent (less than 25% patient effort) - Position (Lower Body Dressing) supine -[facility] Name 08/30/25 1141 Upper Body Dressing Assessment/Training [place] Level (Upper Body Dressing) don;pafelixma/robe;maximum assist (25% patient effort) - Position (Upper Body Dressing) edge of bed sitting - User Jung (r) = Recorded By, (t) = Taken By, (c) = Cosigned By Initials Name Provider Type Aury Fitzgerald OT Occupational Therapist Obj/Interventions [facility] Name 08/30/25 1145 Sensory Assessment (Somatosensory) Sensory Assessment (Somatosensory) UE sensation intact -[facility] 08/30/25 1145 Vision Assessment/Intervention Visual Impairment/Limitations WFL -[facility] 08/30/25 1145 Range of Motion Comprehensive General Range of Motion bilateral upper extremity ROM WFL -[facility] 08/30/25 1145 Strength Comprehensive (MMT) General Manual Muscle Testing (MMT) Assessment upper extremity strength deficits identified - Comment, General Manual Muscle Testing (MMT) Assessment BUE grossly 4-/5 -[facility] 08/30/25 1145 Balance Balance Assessment sitting [...] (OT) Activity/Assistive Device (Transfer Goal 1, OT) pmh-hr-eowid/whybi-uv-nqv;toilet;walker, rolling - [place] Level/Cues Needed (Transfer Goal 1, OT) standby assist - Time Frame (Transfer Goal 1, OT) silviculture teacher goal (LTG);10 days - Progress/Outcome (Transfer Goal 1, OT) goal ongoing - Row Name 08/30/25 1147 Toileting Goal 1 (OT) Activity/Device (Toileting Goal 1, OT) adjust/manage clothing;perform perineal hygiene;commode;grabbar/safety frame - [place] Level/Cues Needed (Toileting Goal 1, OT) standby assist - Time Frame (Toileting Goal 1, OT) short term goal (STG);5 days - Progress/Outcome (Toileting Goal 1, OT) goal ongoing - Row Name 08/30/25 1147 Grooming Goal 1 (OT) Activity/Device (Grooming Goal 1, OT) hair care;oral care;wash face, hands - [place] (Grooming Goal 1, OT) standby assist - Time Frame (Grooming Goal 1, OT) silviculture teacher goal (LTG);10 days - Progress/Outcome (Grooming Goal 1, OT) goal [facility] Name 08/30/25 114 Therapy Assessment/Plan (OT) Planned Therapy Interventions (OT) activity tolerance training;adaptive equipment training;BADL retraining;functional balance retraining;IADL retraining;occupation/activity based interventions;patient/caregiver education/training;ROM/therapeutic exercise;strengthening exercise;transfer/mobility retraining - User Jung (r) = Recorded By, (t) = Taken By, (c) = Cosigned By Initials Name Provider Type Aury Fitzgerald, OT Occupational Therapist Clinical Impression Row Name 08/30/25 1146 Pain Assessment Pain Location abdomen - Pain Side/Orientation generalized - Pain Management Interventions exercise or physical activity utilized;positioning techniques utilized - Response to Pain Interventions activity participation with tolerable pain - Additional Documentation Pain Scale: FACES Pre/Post-Treatment (Group) - Row Name 08/30/25 114 Pain Scale: FACES Pre/Post-Treatment Pain: FACES Scale, Pretreatment 4-->hurts little more - Posttreatment Pain Rating 4-->hurts little more -[facility] Name 08/30/25 1142 Plan of Care Review Plan of Care [...] Duration of Therapy Intervention (OT) 10 days -[facility] 08/30/25 1145 Therapy Plan Review/Discharge Plan (OT) Anticipated Discharge Disposition (OT) inpatient rehabilitation facility -[facility] Name 08/30/25 1145 Vital Signs Pre Systolic [...] Position Standing - Post Patient Position Sitting -[facility] Name 08/30/25 1145 Positioning and Restraints Pre-Treatment Position in bed - Post Treatment Position bsc - On BS commode notified nsg;sitting;call light within reach;encouraged to call for assist;with family/caregiver - User Jung (r) = Recorded By, (t) = Taken By, (c) = Cosigned By Initials Name Provider Type Aury Gallegos, OT Occupational Therapist Outcome Measures Row Name [...] - AM-PAC 6 Clicks Score (OT) 12 -[facility] Name 08/30/25 1147 Functional Assessment Outcome Measure Options AM-PAC 6 Clicks Daily Activity (OT) - User Jung (r) = Recorded By, (t) = Taken By, (c) = Cosigned By Initials Name Provider Type [facility] Aury Fitzgerald OT Occupational Therapist Occupational Therapy Education Title: PT OT ROLLING UP MACHINE OPERATOR Therapies (In Progress) Topic: Occupational Therapy (In [...] Description Service Date Service Provider Modifiers Qty [id number] HC OT EVAL MOD COMPLEXITY 4 08/30/2025 Aury Fitzgerald OT GO 1 Aury Fitzgerald OT 08/30/2025 1148 Speech Language Pathology Notes (most recent note) No notes exist for this encounter. documented in this encounter Discharge Instructions * Attachments The following attachments cannot be sent through Care Everywhere. * Acute Pancreatitis (Y[place]i) documented in this encounter Medications at Time [...] this encounter Progress Notes * Qiana Mcnair, ANGÉLICA - 09/05/2025 12:27 PM EST Patient Name: Loc Thurman Date of : 1940 Admission date: 08/27/2025 Reason for Encounter: Follow-up/Progress Note [facility] Clinical Nutrition Assessment Subjective Subjective Information 09/05 ROLLING UP MACHINE OPERATOR re-evaluated pt today and advanced modified to [...] INTRAOPERATIVE CHOLANGIOGRAM; Surgeon: Hermes Jaramillo MD; Location: [facility]; Service: General; Laterality: N/A; COLONOSCOPY [...] Driven Protocol sodium chloride Physical Findings Chewing/Swallowing ROLLING UP MACHINE OPERATOR following and Dysphagia Dentition Mouth/Teeth WDL: .WDL except, teeth Teeth Symptoms: tooth/teeth missing Skin surgical incision Bowel function Last Bowel Movement: 09/03/25 (09/05/25801) Stool Consistency: watery (09/02/25 0500) Edema Edema: foot, left, foot, right (09/05/25801) Generalized Edema: 2+ (Mild) (09/05/25 08) Scrotum Edema: 2+ (Mild) (09/05/25801) Ankle, Left Edema: 2+ (Mild) (09/05/25801) Ankle, Right Edema: 2+ (Mild) (09/05/25801) Foot, Left Edema: 2+ (Mild) (09/05/25 08) Foot, Right Edema: 2+ (Mild) (09/05/25801) Intake & Output (last 3 days) 09/02 0701 09/03 0700 09/03 0701 09/04 0700 09/04 0701 09/05 0700 09/05 0709/06 0700 P.O. 240 240 840 Other NG/GT [...] Name: Loc Thurman Date of : 1940 [id number] Surgery Progress Note Date of visit: 09/05/2025 [...] Intake/Output Summary (Last 24 hours) at 09/05/2025 0695 Last data filed at 09/05/2025 0015 Gross [...] placement. OK to go to rehab from [facility]. RTC with me in 4 weeks. Relevant [...] from the original note were not included. [facility] Services PROGRESS NOTE Patient Name: [...] the biopsy showed. Procedure was done at [facility], will try and get records [...] from the original note were not included. [facility] PROGRESS NOTE Patient Name: [...] in this interval not displayed. Lab 09/03/25 03409/02/25 0543 09/01/25 1705 09/01/2540008/31/2533708/30/25402 SODIUM 149* 148* -- 148* [...] -- 80* 576* Lab 09/02/25 1436 08/28/25 0608/27/25223308/27/25 1943 PROBNP 9,267.0* -- -- -- HSTROP [...] MD 09/02/2025 12:12 PM EST Workstation ID: [id number] XR Chest 1 View Result Date: 09/02/2025 [...] MD 09/02/2025 12:03 PM EST Workstation ID: [id number] Results for orders placed during the hospital [...] - Pt on a modified diet per ROLLING UP MACHINE OPERATOR - Will continue close monitoring Hypophosphatemia - [...] the biopsy showed. Procedure was done at [facility], will try and get records. [...] AM-PAC 6 Clicks Score (PT): 18 (09/03/25 1857) CODE STATUS: Code Status and Medical Interventions: [...] from the original note were not included. [facility] PROGRESS NOTE Patient Name: Loc Thurman : 1940 Date of Admission: 08/27/2025 Primary Care Physician: Lisa Arreola APRN Subjective Subjective CC: Abd pain HPI: Pt sitting up in bed, having more shortness of breath. Spoke with ROLLING UP MACHINE OPERATOR and patient's swallow study was worse than previous. Diet recommendations reviewed with patient and family. 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 ECHO dating 02/21/2023 done at [facility] showed EF 55-60% without diastolic dysfunction and [...] not displayed. Lab 09/02/25 0543 09/01/25 1705 09/01/25 04008/31/25 0338 08/30/2540208/29/25 0607 SODIUM 148* -- 148* [...] MD 09/02/2025 12:12 PM EST Workstation ID: [id number] XR Chest 1 View Result Date: 09/02/2025 [...] MD 09/02/2025 12:03 PM EST Workstation ID: [id number] I have personally reviewed the therapy plans: [...] Last ECHO found was 02/21/2023 done at [facility] showed EF 55-60% without diastolic dysfunction and [...] - Pt on a modified diet per ROLLING UP MACHINE OPERATOR - Will monitor for now with a.m. [...] date: 08/27/2025 Reason for Encounter: Follow-up/Progress Note [facility] Clinical Nutrition Assessment Subjective Subjective Information [...] INTRAOPERATIVE CHOLANGIOGRAM; Surgeon: Hermes Jaramillo MD; Location: [facility]; Service: General; Laterality: N/A; COLONOSCOPY [...] Driven Protocol sodium chloride Physical Findings Chewing/Swallowing ROLLING UP MACHINE OPERATOR following Dentition Mouth/Teeth WDL: .WDL except, teeth [...] (last 3 days) 08/30 0708/31 0708/31 0709/01 0709/02 0709/02 0709/03 0700 P.O. 300 I.V. (mL/kg) [...] Name: Loc Thurman Date of : 1940 [id number] Surgery Progress Note Date of visit: 09/02/2025 [...] from the original note were not included. [facility] PROGRESS NOTE Patient Name: [...] in this interval not displayed. Lab 09/01/2540008/31/25 03308/30/2540208/29/25 0607 08/28/25 0955 08/28/25 0613 08/28/25 0135 [...] values in this interval not displayed. Lab 09/01/2540008/31/2533708/30/2540208/28/2595408/28/2561208/27/251942 TOTAL PROTEIN 5.0* 5.1* 5.0* 5.2* 4.6* [...] -- -- INR 1.41* -- -- Lab 08/28/2563708/28/2561208/27/251942 IRON -- -- 86 IRON SATURATION (TSAT) [...] Lab Results None Microbiology Results Abnormal None ROLLING UP MACHINE OPERATOR FEES - Fiberoptic Endo Eval Swallow Result [...] Name: Loc Thurman Date of : 1940 [id number] Surgery Progress Note Date of visit: 09/01/2025 [...] HISTORY Tobacco: Former smoker History taken from: [facility]//Social History were reviewed and updated appropriately [...] days Lab Units 08/31/2533708/30/2540208/29/25 0607 08/28/25 0955 08/28/25 0843 08/28/25 0613 [...] last 7 days Lab Units 08/31/2533708/30/2540208/29/25 0607 MAGNESIUM mg/dL 2.6* 2.7* 2.3 PHOSPHORUS [...] a lung nodule by Dr. Castillo in [place], [place] on 08/26/2025. Subsequently, he was seen at [facility] for acute abdominal pain and sepsis and was transferred to [facility] for further evaluation. He was diagnosed with [...] MD 08/31/25 17:48 EST Patient or patient practice representative verbalized consent for the use of [...] date: 08/27/2025 Reason for Encounter: Follow-up/Progress Note [facility] Clinical Nutrition Assessment Subjective Subjective Information [...] INTRAOPERATIVE CHOLANGIOGRAM; Surgeon: Hermes Jaramillo MD; Location: [facility]; Service: General; Laterality: N/A; COLONOSCOPY [...] Driven Protocol sodium chloride Physical Findings Chewing/Swallowing ROLLING UP MACHINE OPERATOR following Dentition Mouth/Teeth WDL: .WDL except Teeth Symptoms: tooth/teeth missing Skin surgical incision Bowel function Last Bowel Movement: 08/27/25 (08/27/25 7346) Stool Consistency: liquid, watery (08/28/25 0400) Edema Edema: generalized, scrotum (08/31/25 0404) Generalized Edema: 2+ (Mild) (08/31/25 1200) Scrotum Edema: 3+ (Moderate) (08/31/25 1200) Ankle, Left Edema: 3+ (Moderate) (08/31/25 1200) Ankle, Right Edema: 3+ (Moderate) (08/31/25 1200) Foot, Left Edema: 3+ (Moderate) (08/31/25 1200) Foot, Right Edema: 3+ (Moderate) (08/31/25 1200) Intake & Output (last 3 days) 08/28 0708/29 0708/29 0708/31 0708/31 07 I.V. (mL/kg) 4376.7 (46.9) 267.4 [...] 1588 - 1868 25-30 kcals/kg IBW = 3890-9993 MSJ (1586) x 1.1 = 1745 Daily [...] Na+); Texture: Pureed (NDD 1); Fluid Consistency: [place] Thick Oral Nutrition Supplement None Trending % [...] Name: Loc Thurman Date of : 1940 [id number] Surgery Progress Note Date of visit: 08/31/2025 [...] HISTORY Tobacco: Former smoker History taken from: PM//Social History were reviewed and updated appropriately in [...] H2O): [6 cm H20] 6 cm H20 MI SUP: [10 cm H20] 10 cm H20 [...] last 7 days Lab Units 08/30/25 04008/29/25 0607 08/28/25 0955 08/28/25 0843 08/28/25 0613 [...] a lung nodule by Dr. Castillo in [place], [place] on 08/26/2025. Subsequently, he was seen at [facility] for acute abdominal pain and sepsis and was transferred to [facility] for further evaluation. He was diagnosed with [...] MD 08/30/25 12:08 EST Patient or patient practice representative verbalized consent for the use of [...] Reason for Encounter: NPO/CLD x 3 days+ [facility] Clinical Nutrition Assessment Subjective Subjective Information [...] INTRAOPERATIVE CHOLANGIOGRAM; Surgeon: Hermes Jaramillo MD; Location: [facility]; Service: General; Laterality: N/A; COLONOSCOPY HERNIA REPAIR Current Problems Admission Diagnosis: Pancreatitis [K85.90] Pancreatitis, acute [K85.90] Problem List: Acute pancreatitis Vasovagal syncope HTN (hypertension) Mixed hyperlipidemia COPD (chronic obstructive pulmonary disease) Former tobacco use History of prostate cancer BPH with obstruction/lower urinary tract symptoms Respiratory insufficiency Shock Applicable Nutrition Hx (08/28) s/p lap CCY w/ intraoperative cholangiography (08/30) extubated ? ROLLING UP MACHINE OPERATOR eval pending Anthropometrics Height: 172.7 cm (67.99 [...] Driven Protocol sodium chloride Physical Findings Chewing/Swallowing ROLLING UP MACHINE OPERATOR following Dentition Mouth/Teeth WDL: .WDL except Teeth [...] 3 days) 08/27 0708/28 0708/28 0708/29 0708/29 0708/30 07 I.V. (mL/kg) 25 (0.3) 4376.7 (46.9) [...] 1588 - 1868 25-30 kcals/kg IBW = 5078-4678 MSJ (1586) x 1.1 = 1745 Daily [...] Prescription Advance diet as clinically indicated per ROLLING UP MACHINE OPERATOR recs Supplement Prescription Education Provided Enteral Prescription [...] prn Electronically signed by: Aaliyah Peralta, MS,RD,LD 08/30/25 11:31 EST * Hermes Jaramillo MD - 08/30/2025 9:57 AM EST Patient Name: Loc Thurman Date of : 1940 [id number] Surgery Progress Note Date of visit: 08/30/2025 [...] a lung nodule by Dr. Castillo in [place], [place] on 08/26/2025. Subsequently, he was seen at [facility] for acute abdominal pain and sepsis and was transferred to [facility] for further evaluation. He was diagnosed with [...] HISTORY Tobacco: Former smoker History taken from: [facility]//Social History were reviewed and updated appropriately [...] fentanyl 10 mcg/mL, Last Rate: 200 mcg/hr (08/28/252212) norepinephrine, Last Rate: Stopped (08/28/25231) phenylephrine, Last Rate: 0.25 mcg/kg/min (08/29/25399) propofol, Last Rate: 20 mcg/kg/min (08/29/25829) vasopressin, [...] a lung nodule by Dr. Castillo in [place], [place] on 08/26/2025. Subsequently, he was seen at [facility] for acute abdominal pain and sepsis and was transferred to [facility] for further evaluation. He was diagnosed with [...] MD 08/29/25 09:20 EST Patient or patient practice representative verbalized consent for the use of Ambient Listening during the visit for chart documentation. *Exception: for ICU patients or for instances where consent for use was not given, active listeningwas used only for dictation and was not used to record patient or family. * Hermes Jaramillo MD - 08/29/2025 7:24 AM EST Patient Name: Loc Thurman Date of : 1940 [id number] Surgery Progress Note Date of visit: 08/29/2025 [...] Name: Loc Thurman Date of : 1940 [id number] Surgery Post - Operative Note Date of [...] vasopressin, 0.03 Units/min, Last Rate: 0.03 Units/min (08/28/25 075) Medications: arformoterol, 15 mcg, Nebulization, BID - [...] Date/Time [place] Cholangiogram Operative - In process [[id number]] Resulted: 08/28/25828 Updated: 08/28/25845 This result has not been signed. Information might be incomplete. XR Chest 1 View [[id number]] Collected: 08/28/25543 Updated: 08/28/25547 Narrative: XR CHEST [...] MD 08/28/2025 5:45 AM EST Workstation ID: [id number] CT Abdomen Pelvis Without Contrast [[id number]] Collected: 08/27/252219 Updated: 08/27/252227 Narrative: CT ABDOMEN [...] MD 08/27/2025 10:25 PM EST Workstation ID: [id number] Assessment & Plan Impression Acute pancreatitis Vasovagal [...] Name: Loc Thurman Date of : 1940 [id number] Surgery Progress Note Date of visit: 08/28/2025 [...] Rubin MD - 08/27/2025 11:40 PM EST REVIT DRAFTER PROGRESS NOTE SUBJECTIVE Loc 84 y.o. male is followed for:No chief complaint on file. Pancreatitis Vasovagal syncope HTN (hypertension) Mixed hyperlipidemia COPD (chronic obstructive pulmonary disease) Former tobacco use History of prostate cancer BPH with obstruction/lower urinary tract symptoms As an Hose Tester, we provide an integrated approach to the [...] [place] [facility] because of evaluation of possible pancreatitis and cholecystitis. Patient underwent bronchoscopy yesterday for lung nodules/mass. Did have scant hemoptysis mixed in with saliva yesterday evening postprocedure. Has not had any olga hemoptysis orno further episodes. Today he woke up with upper abdominal pain after eating breakfast as well as nausea and vomiting. Went to [facility] and during transport her head [...] social history were reviewed and updated in [facility] as appropriate. Review of Systems As [...] (08/27/252058) Best Verbal Response: 5-->(V5) oriented (08/27/252058) [place] Coma Scale Score: 15 (08/27/252058) Lines, Drains [...] MD 08/27/2025 10:25 PM EST Workstation ID: [id number] Echo: Results: Reviewed. I reviewed the patient's [...] from the original note were not included. [facility] Medicine Services HISTORY AND PHYSICAL Patient [...] (2014), and tobacco use who presents to [facility] via transfer from [facility] for evaluation of pancreatitis and distended gallbladder. History of Present Illness Reason for Admit: Abdominal pain with nausea vomiting The patient presents to [facility] via transfer from [facility] for evaluation of abdominal pain with nausea and vomiting. He reports experiencing abdominal pain and chest discomfort, which began this morning after consuming a bowl of cereal for breakfast. The pain, described as a constant ache across his lower chest andupper abdomen, initially peaked at a severity of 10/10. [facility], morphine was administered, but it [...] and sees Dr. Brooks for cardiology in [place]. Review of Systems Constitutional: Positive for activity [...] (2014), and tobacco use who presents to [facility] via transfer from [facility] for evaluation of pancreatitis and distended gallbladder. Patient/family describe syncopal episode in ambulance in route from [facility] this afternoon subjective SBP in [...] and lactate 4 - Received Zosyn at [facility], continue - Repeat labs - [...] 08/27/25, 9:11 PM EST Patient or patient practice representative verbalized consent for the use of Ambient Listening during the visit for chart documentation. Attending Admission Attestation I have performed an independent [id number]-ib-[id number] diagnostic evaluation including performing an independent physical examination. I approve of the documented plan of care above that was reviewed and developed with the advanced auto service instructor (APC) and take responsibility for that plan along with itsassociated risks. I have updated the HPI as appropriate. Brief HPI Loc Thurman is a 84 y.o. male with significant medical history for COPD, HTN, HLD, high-grade prostate cancer s/p initiation of external beam radiation and hormonal therapy (2014), and tobacco use who presents to [facility] via transfer from [facility] for evaluation of pancreatitis and [...] APRN Authorized by: Alma Rosa Lucas APRN [place] Protocol: Verbal consent obtained?: Yes Risks and [...] time out verifies correct patient, procedure, equipment, network support manager and site/side marked as required: Preparation: Preparation: [...] to verify the correct patient, procedure, equipment, network support manager and site/side marked as required. Indications: vascular [...] encounter Consult Notes * Waleska Vivas MS, RD,LD - 09/03/2025 11:39 AM ESTAssociated Order(s): IP [...] Name: Loc Thurman Date of : 1940 [id number] Patient Care Team: Provider, No Known as [...] left lung mass. He underwent bronchoscopy at [facility] yesterday. He states postoperatively he did well [...] for cancers Social History: Pt lives in [place]. Tobacco use: Denies , quit 35 years [...] Jaramillo MD 08/27/25 21:11 EST Dictated using [employer] Dictation CT scan personally reviewed. This shows [...] patient Progress: improving * Andrea Dukes MS CCC-ROLLING UP MACHINE OPERATOR - 09/02/2025 1:04 PM EST Goal Outcome Evaluation: Plan of Care Reviewed With: patient Progress: declining Anticipated Discharge Disposition (ROLLING UP MACHINE OPERATOR): inpatient rehabilitation facility ROLLING UP MACHINE OPERATOR Swallowing Diagnosis: mild, oral dysphagia, mod-severe, pharyngeal dysphagia (09/02/25 1100) * Rhianna Tilley PT - 09/02/2025 10:28 AM EST Goal [...] Goal Outcome Evaluation: * Nora Montano MS CF-ROLLING UP MACHINE OPERATOR - 09/01/2025 4:10 PM EST Goal Outcome Evaluation: Plan of Care Reviewed With: patient Anticipated Discharge Disposition (ROLLING UP MACHINE OPERATOR): inpatient rehabilitation facility Treatment Assessment (ROLLING UP MACHINE OPERATOR): toleration of diet, clinical signs of, aspiration (09/01/25 153) Treatment Assessment Comments (ROLLING UP MACHINE OPERATOR): Pt requesting thin liquids. Explained justification of thickened liquids (09/01/25 153) Plan for Continued Treatment (ROLLING UP MACHINE OPERATOR): continue treatment per plan of care (09/01/251529) [...] inpatient rehabilitation facility * Andrea Dukes MS CCC-ROLLING UP MACHINE OPERATOR - 08/31/2025 9:54 AM EST Goal Outcome Evaluation: Plan of Care Reviewed With: patient Progress: improving Anticipated Discharge Disposition (ROLLING UP MACHINE OPERATOR): inpatient rehabilitation facility ROLLING UP MACHINE OPERATOR Swallowing Diagnosis: moderate, oral dysphagia, pharyngeal dysphagia [...] 3 and gait belt. B/p remains elevated. SR. MANAGER MARKETING notified, Hydralazine ordered for sbp >160 given [...] adequate urine per maurer. starting trophic feeds, test desk supervisor to fees tomorrow. * Alma Aiken, Speech Therapy Student - 08/30/2025 11:14 AM EST Goal Outcome Evaluation: Plan of Care Reviewed With: (P) patient, child Anticipated Discharge Disposition (ROLLING UP MACHINE OPERATOR): (P) inpatient rehabilitation facility ROLLING UP MACHINE OPERATOR Swallowing Diagnosis: (P) suspected pharyngeal dysphagia (08/30/25 1005) Cosigned by Lea Echols, MS CCC-ROLLING UP MACHINE OPERATOR at 08/30/2025 11:59 AM EST Associated attestation - Lea Echols MS CCC-ROLLING UP MACHINE OPERATOR - 08/30/2025 11:59 AM EST Lea Echols MS CCC-ROLLING UP MACHINE OPERATOR * Aury Fitzgerald, ARY - 08/30/2025 9:16 AM EST Goal Outcome [...] chair and BSC. Pt's decreased independence warrants assistant golf coach care. Recommend D/C to IP rehab facility. [...] to clear these secretions on his own. ROLLING UP MACHINE OPERATOR nancyal ordered perprotocol. Early in to evening pt [...] Name: Loc Thurman Date of : 1940 [id number] 08/28/2025 PREOPERATIVE DIAGNOSIS: Acute cholecystitis with sepsis POSTOPERATIVE DIAGNOSIS: Same PROCEDURE PERFORMED: Laparoscopic cholecystectomy with intraoperative cholangiography SURGEON: Hermes Jaramillo MD MD PHYSICIAN DERMATOLOGIST: Annie Jorgensen PA-C. Annie Jorgensen PA-C was [...] of 0 Vicryl was then placed in xnrcuk-ly-udoeo fashion around the defect, and a blunt [...] LAPAROSCOPIC INTRAOPERATIVE CHOLANGIOGRAM Progress Note Loc Wright Thurman 08/28/2025 Pre-op Diagnosis: Acute cholecystitis Post-Op Diagnosis Codes: Same Procedure(s): Procedure(s): CHOLECYSTECTOMY LAPAROSCOPIC INTRAOPERATIVE CHOLANGIOGRAM Surgeon(s): Hermes Jaramillo MD Anesthesia: General Staff: Dba Developer: Maria Elena Buckner RN Physician Drawer Liner: Annie Jorgensen PA Scrub Person: Katherine Duke [...] 08/28/25 0400 Site Assessment Skin intact;Clean 08/28/25 06 Collection Container Standard drainage bag 08/28/25 06 Securement Method Securing device 08/28/25 06 Catheter care complete Yes 08/28/25 0400 Output (mL) 200 mL 08/28/25 06 Findings: Acute cholecystitis IOC shows distention of [...] ready for d/c today to IPR @ [facility] inpatient rehab in [place], [place]. I spoke w/Ella liaison @ [facility], per Ella can come @ 1600 PM today. RN to call report to [phone] and send d/c packet w/patient. I will fax dc summary to [phone] when completed in [employer]. I discussed w/patient and son in room, [...] Patient Preferred [facility] Inpatient Rehabilitation [address] [place] [address] [phone] -- Durable Medical Equipment No services have [...] facility * MBS/VFSS/FEES - Andrea Dukes MS CCC-ROLLING UP MACHINE OPERATOR - 09/05/2025 10:16 AM EST Images from the original note were not included. Acute Care - Speech Language Pathology Swallow Re-Assessment [facility] Modified Barium Swallow Study (MBS) Patient Name: [...] INTRAOPERATIVE CHOLANGIOGRAM; Surgeon: Hermes Jaramillo MD; Location: [facility]; Service: General; Laterality: N/A; COLONOSCOPY HERNIA REPAIR ROLLING UP MACHINE OPERATOR Recommendation and Plan Recommended discharge disposition is based on the functional assessment performed by PT/OT/Speech therapy (as applicable) and may not reflect the medical necessity determined by your provider or services covered by an individual patient's insurance plan or patient resource. ROLLING UP MACHINE OPERATOR Swallowing Diagnosis: mild, oral dysphagia, pharyngeal dysphagia (09/05/25829) ROLLING UP MACHINE OPERATOR Diet Recommendation: soft to chew textures, chopped, thin liquids (09/05/25829) Recommended Precautions and Strategies: chin tuck (09/05/25829) ROLLING UP MACHINE OPERATOR Rec. for Method of Medication Administration: as tolerated (must utilize chin tuck with all PO)(09/05/25829) Monitor for Signs of Aspiration: yes, notify ROLLING UP MACHINE OPERATOR if any concerns (09/05/25829) Swallow Criteria for Skilled Therapeutic Interventions Met: demonstrates skilled criteria (0) Anticipated Discharge Disposition (ROLLING UP MACHINE OPERATOR): inpatient rehabilitation facility (09/05/25829) Rehab Potential/Prognosis, Swallowing: good, to achieve stated therapy goals (09/05/25829) Therapy Frequency (Swallow): 5 days per week (09/05/25829) Predicted Duration Therapy Intervention (Days): 2 weeks (09/05/25829) Oral Care Recommendations: Oral Care BID/PRN, Toothbrush (09/05/25829) Penetration of thins in chin neutral head posture Progress: declining SWALLOW EVALUATION (Last 72 Hours) ROLLING UP MACHINE OPERATOR Adult Swallow Evaluation Row Name 09/05/25 0830 [...] Noted, Comment -- Reported to RN and STEREOTYPER APPRENTICE via secure chat who came and assessed at bedside-RS reported to RN and transport and radiology staff -RS General Information Patient Profile Reviewed yes -RS yes -RS yes -RS Pertinent History Of Current Problem See previous ROLLING UP MACHINE OPERATOR notes -RS See previous ROLLING UP MACHINE OPERATOR notes -RS See previous ROLLING UP MACHINE OPERATOR notes -RS Pain Pretreatment Pain Rating 0/10 - no pain -RS 0/10 - no pain -RS 0/10 - no pain -RS Posttreatment Pain Rating 0/10 - no pain -RS 0/10 - no pain -RS 0/10 - no pain -RS General Eating/Swallowing Observations Respiratory Support Currently in Use room air -RS -- room air -RS Eating/Swallowing Skills self-fed -RS -- fed by ROLLING UP MACHINE OPERATOR;needed assist;self-fed -RS Positioning During Eating upright 90 [...] aspiration;Silent aspiration;Risks of aspiration;Safest diet options -RS ROLLING UP MACHINE OPERATOR Evaluation Clinical Impression ROLLING UP MACHINE OPERATOR Swallowing Diagnosis mild;oral dysphagia;pharyngeal dysphagia -RS -- mild;oral dysphagia;mod-severe;pharyngeal dysphagia -RS Functional Impact risk of aspiration/pneumonia -RS -- risk of aspiration/pneumonia -RS Rehab Potential/Prognosis, Swallowing good, to achieve stated therapy goals -RS -- good, to achievestated therapy goals -RS Swallow Criteria for Skilled Therapeutic Interventions Met demonstrates skilled criteria -RS -- demonstrates skilled criteria -RS ROLLING UP MACHINE OPERATOR Treatment Clinical Impressions Treatment Assessment (ROLLING UP MACHINE OPERATOR) -- mild;oral dysphagia;moderate-severe;pharyngeal dysphagia -RS -- Treatment Assessment Comments (ROLLING UP MACHINE OPERATOR) -- Lengthy education w pt and family. Discussed MBS results including review of all images on screen. Discussed modified diet, comfort diet, goal of rehab in [place], resp status, feelings of SOA, palatable food preferences, aspiration, silent aspiration, dysphagia, pharyngeal exs, oral care, free water, and repeat instrumental timeframe. Hospitalist STEREOTYPER APPRENTICE to order several more tests in light of SOA c/o and new cxr findings. If OK'd by hospital medicine team wouldlike to add small sips of free water between meals and after oral care. Pt is agreeable to independent practice of pharyngeal exs and repeat instrumental early next week. Pt and son verbalized understanding and appreciation. -RS -- Plan for Continued Treatment (ROLLING UP MACHINE OPERATOR) -- continue treatment per plan of care -RS -- Care Plan Review -- evaluation/treatment results reviewed;care plan/treatment goals reviewed;risks/benefits reviewed -RS -- Recommendations Therapy Frequency (Swallow) 5 days per week -RS 5 days per week -RS 5 days per week -RS Predicted Duration Therapy Intervention (Days) 2 weeks -RS 2 weeks -RS 2 weeks -RS ROLLING UP MACHINE OPERATOR Diet Recommendation soft to chew textures;chopped;thin liquids [...] BID/PRN;Toothbrush -RS Oral Care BID/PRN;Suction toothbrush -RS ROLLING UP MACHINE OPERATOR Rec. for Method of Medication Administration as tolerated must utilize chin tuck with all PO -RS meds whole;with thick liquids;with puree -RS meds whole;with thick liquids;with puree -RS Monitor for Signs of Aspiration yes;notify ROLLING UP MACHINE OPERATOR if any concerns -RS yes;notify ROLLING UP MACHINE OPERATOR if any concerns -RS yes;notify ROLLING UP MACHINE OPERATOR if any concerns -RS Anticipated Discharge Disposition (ROLLING UP MACHINE OPERATOR) inpatient rehabilitation facility -RS inpatient rehabilitation facility -RS inpatient rehabilitation facility -RS User Jung (r) = Recorded By, (t) = Taken By, (c) = Cosigned By Initials Name Effective Dates RS Andrea Dukes, [facility]-ROLLING UP MACHINE OPERATOR 07/03/23 - EDUCATION The patient has been educated in the following areas: Dysphagia (Swallowing Impairment) Modified Diet Instruction. ROLLING UP MACHINE OPERATOR GOALS Row Name 09/05/25 0830 09/02/25 1315 09/02/25 1100 (LTG) Patient will demonstrate functional swallow for Diet Texture (Demonstrate functional swallow) regular textures -RS regular textures -RS regular textures -RS Liquid viscosity (Demonstrate functional swallow) thin liquids -RS thin liquids -RS thin liquids -RS [place] (Demonstrate functional swallow) independently (over 90% accuracy) [...] use of compensatory strategies (see comments) -RS [place] (Tolerate trials) with minimal cues (75-90% accuracy) [...] signs of distress;with adequate oral prep/transit/clearance -RS [place] (Tolerate therapeutic trials) with minimal cues (75-90% accuracy) - RS with minimal cues (75-90% accuracy) -RS with minimal cues (75-90% accuracy) -RS Time Frame (Tolerate therapeutic trials) 1 week -RS 1 week -RS 1 week -RS Progress/Outcomes (Tolerate therapeutic trials) goal met -RS goal revised this -RS goal revised this date -RS (STG) Lingual Strengthening Goal 1 (ROLLING UP MACHINE OPERATOR) Activity (Lingual Strengthening Goal 1, ROLLING UP MACHINE OPERATOR) increase tongue back strength -RS increase tongue backstrength -RS increase tongue back strength -RS Increase Tongue Back Strength lingual resistance exercises -RS lingual resistance exercises -RS lingual resistance exercises -RS [place]/Accuracy (Lingual Strengthening Goal 1, ROLLING UP MACHINE OPERATOR) with minimal cues (75- 90% accuracy) -RS with minimal cues (75-90% accuracy) -RS with minimal cues (75- 90% accuracy) -RS Time Frame (Lingual Strengthening Goal 1, ROLLING UP MACHINE OPERATOR) 1 week -RS 1 week -RS 1 week -RS Progress/Outcomes (Lingual Strengthening Goal 1, ROLLING UP MACHINE OPERATOR) goal ongoing -RS goal ongoing -RS goal ongoing -RS (STG) Pharyngeal Strengthening Exercise Goal 1 (ROLLING UP MACHINE OPERATOR) Activity (Pharyngeal Strengthening Goal 1, ROLLING UP MACHINE OPERATOR) increase timing;increase superior movement of the hyolaryngeal [...] Retraction mike -RS mike -RS mike -RS [place]/Accuracy (Pharyngeal Strengthening Goal 1, ROLLING UP MACHINE OPERATOR) with minimal cues (75-90% accuracy) -RS with minimal cues (75-90% accuracy) -RS with minimal cues (75-90% accuracy) -RS Time Frame (Pharyngeal Strengthening Goal 1, ROLLING UP MACHINE OPERATOR) 1 week -RS 1 week -RS 1 week -RS Progress/Outcomes (Pharyngeal Strengthening Goal 1, ROLLING UP MACHINE OPERATOR) goal ongoing -RS goal ongoing -RS goal ongoing -RS Comment (Pharyngeal Strengthening Goal 1, ROLLING UP MACHINE OPERATOR) Came back to room and demo'd all pharyngeal exercises and reviewed dysphagia exercise sheet w pt and son -RS -- -- (STG) Swallow Compensatory Strategies Goal 1 (ROLLING UP MACHINE OPERATOR) Activity (Swallow Compensatory Strategies/Techniques Goal 1, ROLLING UP MACHINE OPERATOR) aspiration precautions;compensatory strategies;chin up posture -RS -- -- [place]/Accuracy (Swallow Compensatory Strategies/Techniques Goal 1, ROLLING UP MACHINE OPERATOR) independently (over 90% accuracy) -RS -- -- Time Frame (Swallow Compensatory Strategies/Techniques Goal 1, ROLLING UP MACHINE OPERATOR) 1 week -RS -- -- Progress/Outcomes (Swallow Compensatory Strategies/Techniques Goal 1, ROLLING UP MACHINE OPERATOR) new goal -RS -- -- Comment (Swallow Compensatory Strategies/Techniques Goal 1, ROLLING UP MACHINE OPERATOR) Discussed compensatory strategy use w demonstration w pt and son -RS -- -- User Jung (r) = Recorded By, (t) = Taken By, (c) = Cosigned By Initials Name Provider Type RS Andrea Dukes MS CCC-ROLLING UP MACHINE OPERATOR Speech and Language Pathologist Time Calculation: Time Calculation- ROLLING UP MACHINE OPERATOR Row Name 09/05/25 1028 Time Calculation- ROLLING UP MACHINE OPERATOR ROLLING UP MACHINE OPERATOR Start Time 0830 -RS ROLLING UP MACHINE OPERATOR Received On 09/05/25 -RS Timed Charges 72072-Eilubzkzr Training Stragies & TQ 1st 30 Min 1 -RS Untimed Charges 31893-VR Motion Fluoro Eval Swallow Minutes 56 -RS 58755-CG Treatment Swallow Minutes 12 -RS Total Minutes Untimed Charges Total Minutes 68 -RS Total Minutes 68 -RS User Jung (r) = Recorded By, (t) = Taken By, (c) = Cosigned By Initials Name Provider Type RS Andrea Dukes MS CCC-ROLLING UP MACHINE OPERATOR Speech and Language Pathologist Therapy Charges for Today Code Description Service Date Service Provider Modifiers Qty 10723839057 HC ST MOTION FLUORO EVAL SWALLOW 4 09/05/2025 Andrea Dukes MS CCC- ROLLING UP MACHINE OPERATOR GN [address] TREATMENT SWALLOW 1 09/05/2025 Andrea Dukes MS CCC-SLP GN 1 [id number] HC CAREGIVER TRAINING STRATEGIES & TQ 1ST 30 MINUTES 09/05/2025 Andrea Dukes MS CCC-ROLLING UP MACHINE OPERATOR 1 MS MARIA INES Chatterjee 09/05/2025 * Therapy Treatment Note - Andrea Dukes MS CCC-SLP - 09/02/2025 2:37 PM EST Images from the original note were not included. Acute Care - Speech Language Pathology Swallow Treatment Note and Education WILTON Gracia Patient Name: Loc Thurman : 1940 Today's [...] INTRAOPERATIVE CHOLANGIOGRAM; Surgeon: Hermes Jaramillo MD; Location: [facility]; Service: General; Laterality: N/A; COLONOSCOPY HERNIA REPAIR ROLLING UP MACHINE OPERATOR Recommendation and Plan Recommended discharge disposition is based on the functional assessment performed by PT/OT/Speech therapy (as applicable) and may not reflect the medical necessity determined by your provider or services covered by an individual patient's insurance plan or patient resource. ROLLING UP MACHINE OPERATOR Swallowing Diagnosis: mild, oral dysphagia, mod-severe, pharyngeal dysphagia (09/02/251099) ROLLING UP MACHINE OPERATOR Diet Recommendation: mechanical ground textures, no mixed consistencies, honey thick liquids (09/02/251314) Recommended Precautions and Strategies: no straw, small bites of food and sips of liquid, upright posture during/after eating, general aspiration precautions (09/02/251314) ROLLING UP MACHINE OPERATOR Rec. for Method of Medication Administration: meds whole, with thick liquids, with puree (09/02/251314) Monitor for Signs of Aspiration: yes, notify ROLLING UP MACHINE OPERATOR if any concerns (09/02/251314) Recommended Diagnostics: reassess via VFSS (MBS), other (see comments) (early next week) (09/02/251314) Swallow Criteria for Skilled Therapeutic Interventions Met: demonstrates skilled criteria () Anticipated Discharge Disposition (ROLLING UP MACHINE OPERATOR): inpatient rehabilitation facility (09/02/251314) Rehab Potential/Prognosis, Swallowing: good, to achieve stated therapy goals (09/02/251099) Therapy Frequency (Swallow): 5 days per week (09/02/251314) Predicted Duration Therapy Intervention (Days): 2 weeks (09/02/251314) Oral Care Recommendations: Oral Care BID/PRN, Toothbrush (09/02/251314) Treatment Assessment (ROLLING UP MACHINE OPERATOR): mild, oral dysphagia, moderate-severe, pharyngeal dysphagia (09/02/251314) Treatment Assessment Comments (ROLLING UP MACHINE OPERATOR): Lengthy education w pt and family. Discussed MBS results including review of all images on screen. Discussed modified diet, comfort diet, goal of rehab in [place], resp status, feelings of SOA, palatable food preferences, aspiration, silent aspiration, dysphagia, pharyngeal exs, oral care, free water, and repeat instrumental timeframe. Hospitalist STEREOTYPER APPRENTICE to order several more tests in light of SOA c/o and new cxr findings. If OK'd by hospital medicine team would like to add small sips of free water between meals and after oral care. Pt is agreeable to independent practice of pharyngeal exs and repeat instrumental early next week. Pt and son verbalized understanding and appreciation. (09/02/251314) Plan for Continued Treatment (ROLLING UP MACHINE OPERATOR): continue treatment per plan of care (09/02/251314) Progress: declining SWALLOW EVALUATION (Last 72 Hours) ROLLING UP MACHINE OPERATOR Adult Swallow Evaluation Row Name 09/02/25 1315 [...] Symptoms Noted, Comment Reported to RN and STEREOTYPER APPRENTICE via secure chat who came and assessed at bedside -RS reported to RN and transport and radiology staff -RS -- -- Oral Care -- -- patient refused intervention -SM teeth brushed - suction toothbrush -RS General Information Patient Profile Reviewed yes -RS yes -RS yes -SM yes -RS Pertinent History Of Current Problem See previous ROLLING UP MACHINE OPERATOR notes -RS See previous ROLLING UP MACHINE OPERATOR notes -RS See previous ROLLING UP MACHINE OPERATOR notes -SM See previous ROLLING UP MACHINE OPERATOR notes. Pt has been cleared for PO [...] Use -- room air -RS room air - nasal cannula -RS O2 Liters -- -- -- 3L -RS Eating/Swallowing Skills -- fed by ROLLING UP MACHINE OPERATOR;needed assist;self-fed -RS self-fed;fed by ROLLING UP MACHINE OPERATOR;needed assist-SM fed by staff/caregiver -RS Positioning During Eating -- upright 90 degree;upright in chair -RS upright 90 degree;upright in chair - upright 90 degree;upright in bed -RS Utensils Used -- spoon;cup;straw -RS straw -SM spoon;cup;straw - Consistencies Trialed -- thin liquids;nectar/syrup-thick liquids;honey-thick liquids;pureed;mixed [...] Signs of aspiration;Silent aspiration;Risks of aspiration -RS ROLLING UP MACHINE OPERATOR Evaluation Clinical Impression ROLLING UP MACHINE OPERATOR Swallowing Diagnosis -- mild;oral dysphagia;mod-severe;pharyngeal dysphagia -RS -- moderate;oral dysphagia;pharyngeal dysphagia -RS Functional Impact -- risk of aspiration/pneumonia -RS -- risk of aspiration/pneumonia -RS Rehab Potential/Prognosis, Swallowing -- good, to achieve stated therapy goals - RS -- good, to achieve stated therapy goals -RS Swallow Criteria for Skilled Therapeutic Interventions Met -- demonstrates skilled criteria -RS -- demonstrates skilled criteria -RS ROLLING UP MACHINE OPERATOR Treatment Clinical Impressions Treatment Assessment (ROLLING UP MACHINE OPERATOR) mild;oral dysphagia;moderate-severe;pharyngeal dysphagia -RS -- toleration of diet;clinical signs of;aspiration -SM -- Treatment Assessment Comments (ROLLING UP MACHINE OPERATOR) Lengthy education w pt and family. Discussed MBS results including review of all images on screen. Discussed modified diet, comfort diet, goal of rehab in [place], resp status, feelings of SOA, palatable food preferences, aspiration, silent aspiration, dysphagia, pharyngeal exs, oral care, free water, and repeat instrumental timeframe. Hospitalist STEREOTYPER APPRENTICE to order several more tests in light [...] liquids -SM -- Daily Summary of Progress (ROLLING UP MACHINE OPERATOR) -- -- progress toward functional goals is good - SM -- Plan for Continued Treatment (ROLLING UP MACHINE OPERATOR) continue treatment per plan of care -RS [...] 2 weeks - SM 2 weeks -RS ROLLING UP MACHINE OPERATOR Diet Recommendation mechanical ground textures;no mixed consistencies;honey [...] toothbrush -SM Oral Care BID/PRN;Suction toothbrush -RS ROLLING UP MACHINE OPERATOR Rec. for Method of Medication Administration meds whole;with thick liquids;with puree -RS meds whole;with thick liquids;with puree -RS meds whole;with thick liquids -SM meds whole;with thick liquids;meds via alternate route -RS Monitor for Signs of Aspiration yes;notify ROLLING UP MACHINE OPERATOR if any concerns -RS yes;notify ROLLING UP MACHINE OPERATOR if any concerns -RS yes;notify ROLLING UP MACHINE OPERATOR if any concerns -SM yes;notify ROLLING UP MACHINE OPERATOR if any concerns -RS Anticipated Discharge Disposition (ROLLING UP MACHINE OPERATOR) inpatient rehabilitation facility -RS inpatient rehabilitation facility -RS inpatient rehabilitation facility -SM inpatient rehabilitation facility -RS User Jung (r) = Recorded By, (t) = Taken By, (c) = Cosigned By Initials Name Effective Dates RS Andrea Dukes, MS CCC-ROLLING UP MACHINE OPERATOR 07/03/23 - SM Nora Montano MS CF-ROLLING UP MACHINE OPERATOR 03/24/25 - EDUCATION The patient has been educated in the following areas: Dysphagia (Swallowing Impairment) Modified Diet Instruction. ROLLING UP MACHINE OPERATOR GOALS Row Name 09/02/25 1315 09/02/25 1100 09/01/25 1530 (LTG) Patient will demonstrate functional swallow for Diet Texture (Demonstrate functional swallow) regular textures -RS regular textures -RS regular textures -SM Liquid viscosity (Demonstrate functional swallow) thin liquids -RS thin liquids -RS thin liquids -SM [place] (Demonstrate functional swallow) independently (over 90% accuracy) [...] signs of distress;with adequate oral prep/transit/clearance -SM [place] (Tolerate trials) with minimal cues (75-90% accuracy) -RS with minimal cues (75-90% accuracy) -RS with minimal cues (75-90% accuracy) -SM Time Frame (Tolerate trials) 1 week -RS 1 week -RS 1 week -SM Progress/Outcomes (Tolerate trials) goal revised this -RS goal revised this -RS goal revised this date -SM Comment (Tolerate trials) -- -- Upgraded to [facility] solids -SM (STG) Patient will tolerate therapeutic [...] signs of distress;with adequate oral prep/transit/clearance -SM [place] (Tolerate therapeutic trials) with minimal cues (75-90% [...] w/ solid, but OK to upgrade to [facility] grnd and monitor tolerance -SM (STG) Lingual Strengthening Goal 1 (ROLLING UP MACHINE OPERATOR) Activity (Lingual Strengthening Goal 1, ROLLING UP MACHINE OPERATOR) increase tongue back strength -RS increase tongue backstrength -RS increase tongue back strength -SM Increase Tongue Back Strength lingual resistance exercises -RS lingual resistance exercises -RS lingual resistance exercises -SM [place]/Accuracy (Lingual Strengthening Goal 1, ROLLING UP MACHINE OPERATOR) with minimal cues (75- 90% accuracy) -RS with minimal cues (75-90% accuracy) -RS with minimal cues (75- 90% accuracy) -SM Time Frame (Lingual Strengthening Goal 1, ROLLING UP MACHINE OPERATOR) 1 week -RS 1 week -RS 1 week -SM Progress/Outcomes (Lingual Strengthening Goal 1, ROLLING UP MACHINE OPERATOR) goal ongoing -RS goal ongoing -RS continuing progress toward goal -SM (STG) Pharyngeal Strengthening Exercise Goal 1 (ROLLING UP MACHINE OPERATOR) Activity (Pharyngeal Strengthening Goal 1, ROLLING UP MACHINE OPERATOR) increase timing;increase superior movement of the hyolaryngeal [...] Retraction mike -RS mike -RS mike -SM [place]/Accuracy (Pharyngeal Strengthening Goal 1, ROLLING UP MACHINE OPERATOR) with minimal cues (75-90% accuracy) -RS with minimal cues (75-90% accuracy) -RS with minimal cues (75-90% accuracy) -SM Time Frame (Pharyngeal Strengthening Goal 1, ROLLING UP MACHINE OPERATOR) 1 week -RS 1 week -RS 1 week -SM Progress/Outcomes (Pharyngeal Strengthening Goal 1, ROLLING UP MACHINE OPERATOR) goal ongoing -RS goal ongoing -RS continuing progress toward goal -SM Comment (Pharyngeal Strengthening Goal 1, ROLLING UP MACHINE OPERATOR) -- -- Demo'd all and left at bedside - Row Name 08/31/25 0815 (LTG) Patient will demonstrate functional swallow for Diet Texture (Demonstrate functional swallow) regular textures -RS Liquid viscosity (Demonstrate functional swallow) thin liquids -RS [place] (Demonstrate functional swallow) independently (over 90% accuracy) -RS Time Frame (Demonstrate functional swallow) 2 weeks -RS Progress/Outcomes (Demonstrate functional swallow) new goal -RS (STG) Patient will tolerate trials of Consistencies Trialed (Tolerate trials) pureed textures;nectar/ mildly thick liquids -RS Desired Outcome (Tolerate trials) without signs/symptoms of aspiration;without signs of distress;with adequate oral prep/transit/clearance -RS [place] (Tolerate trials) with minimal cues (75-90% accuracy) -RS Time Frame (Tolerate trials) 1 week -RS Progress/Outcomes (Tolerate trials) new goal -RS (STG) Patient will tolerate therapeutic trials of Consistencies Trialed (Tolerate therapeutic trials) soft to chew (chopped) textures;nectar/ mildly thick liquids -RS Desired Outcome (Tolerate therapeutic trials) without signs/symptoms of aspiration;without signs ofdistress;with adequate oral prep/transit/clearance -RS [place] (Tolerate therapeutic trials) with minimal cues (75-90% accuracy) -RS Time Frame (Tolerate therapeutic trials) 1 week -RS Progress/Outcomes (Tolerate therapeutic trials) new goal -RS (STG) Lingual Strengthening Goal 1 (ROLLING UP MACHINE OPERATOR) Activity (Lingual Strengthening Goal 1, ROLLING UP MACHINE OPERATOR) increase tongue back strength -RS Increase Tongue Back Strength lingual resistance exercises -RS [place]/Accuracy (Lingual Strengthening Goal 1, ROLLING UP MACHINE OPERATOR) with minimal cues (75- 90% accuracy) -RS Time Frame (Lingual Strengthening Goal 1, ROLLING UP MACHINE OPERATOR) 1 week -RS Progress/Outcomes (Lingual Strengthening Goal 1, ROLLING UP MACHINE OPERATOR) new goal -RS (STG) Pharyngeal Strengthening Exercise Goal 1 (ROLLING UP MACHINE OPERATOR) Activity (Pharyngeal Strengthening Goal 1, ROLLING UP MACHINE OPERATOR) increase timing;increase superior movement of the hyolaryngeal [...] -RS Increase Tongue Base Retraction mike -RS [place]/Accuracy (Pharyngeal Strengthening Goal 1, ROLLING UP MACHINE OPERATOR) with minimal cues (75-90% accuracy) -RS Time Frame (Pharyngeal Strengthening Goal 1, ROLLING UP MACHINE OPERATOR) 1 week -RS Progress/Outcomes (Pharyngeal Strengthening Goal 1, ROLLING UP MACHINE OPERATOR) new goal -RS User Jung (r) = Recorded By, (t) = Taken By, (c) = Cosigned By Initials Name Provider Type Andrea Mitchell MS CCC-ROLLING UP MACHINE OPERATOR Speech and Language Pathologist Nora Weiner, MS CF-ROLLING UP MACHINE OPERATOR Speech and Language Pathologist Time Calculation: Time Calculation- ROLLING UP MACHINE OPERATOR Row Name 09/02/25 1435 09/02/25 1302 Time Calculation- ROLLING UP MACHINE OPERATOR ROLLING UP MACHINE OPERATOR Start Time 1315 -RS 1100 -RS ROLLING UP MACHINE OPERATOR Received On 09/02/25 -RS 09/02/25 -RS Timed Charges 26118-Mqrqfepcp Training Stragies & TQ 1st 30 Min 1 -RS -- 46775-Wsmzobsqn Training Stragies & TQ EA Addl 15 Min 1 -RS -- Untimed Charges 04860-TG Motion Fluoro Eval Swallow Minutes -- 61 -RS 93960-PK Treatment Swallow Minutes 25 -RS -- Total Minutes Untimed Charges Total Minutes 25 -RS 61 -RS Total Minutes 25 -RS 61 -RS User Jung (r) = Recorded By, (t) = Taken By, (c) = Cosigned By Initials Name Provider Type Andrea Mitchell MS CCC-ROLLING UP MACHINE OPERATOR Speech and Language Pathologist Therapy Charges for Today Code Description Service Date Service Provider Modifiers Qty 85758177806 HC ST MOTION FLUORO EVAL SWALLOW 4 09/02/2025 Andrea Dukes MS CCC- ROLLING UP MACHINE OPERATOR GN [address] TREATMENT SWALLOW 2 09/02/2025 Ernst, MS CAROLIN Mendez-ROLLING UP MACHINE OPERATOR GN 1 [id number] HC CAREGIVER TRAINING STRATEGIES & TQ 1ST 30 MINUTES 09/02/2025 Ernst Mendez MS CAINROLLING UP MACHINE OPERATOR 1 [id number] HC CAREGIVER TRAINING STRATEGIES &TQ EA ADDL 15 MIN 09/02/2025 Andrea Dukes MS CCC-ROLLING UP MACHINE OPERATOR 1 MS MARIA INES Chatterjee 09/02/2025 * MBS/VFSS/FEES - Ernst MS PAYTON MendezROLLING UP MACHINE OPERATOR - 09/02/2025 1:04 PM EST Images from the original note were not included. Acute Care - Speech Language Pathology Swallow Re-Assessment [place] Modified Barium Swallow Study (MBS) Patient Name: [...] INTRAOPERATIVE CHOLANGIOGRAM; Surgeon: Hermes Jaramillo MD; Location: [facility]; Service: General; Laterality: N/A; COLONOSCOPY HERNIA REPAIR ROLLING UP MACHINE OPERATOR Recommendation and Plan Recommended discharge disposition is based on the functional assessment performed by PT/OT/Speech therapy (as applicable) and may not reflect the medical necessity determined by your provider or services covered by an individual patient's insurance plan or patient resource. ROLLING UP MACHINE OPERATOR Swallowing Diagnosis: mild, oral dysphagia, mod-severe, pharyngeal dysphagia (09/02/25 1100) ROLLING UP MACHINE OPERATOR Diet Recommendation: mechanical ground textures, no mixed consistencies, honey thick liquids (11/14/25 1100) Recommended Precautions and Strategies: no straw, small bites of food and sips of liquid, upright posture during/after eating, general aspiration precautions (09/02/251099) ROLLING UP MACHINE OPERATOR Rec. for Method of Medication Administration: meds whole, with thick liquids, with puree (09/02/251099) Monitor for Signs of Aspiration: yes, notify ROLLING UP MACHINE OPERATOR if any concerns (09/02/251099) Swallow Criteria for Skilled Therapeutic Interventions Met: demonstrates skilled criteria () Anticipated Discharge Disposition (ROLLING UP MACHINE OPERATOR): inpatient rehabilitation facility (09/02/251099) Rehab Potential/Prognosis, Swallowing: good, to achieve stated therapy goals (09/02/251099) Therapy Frequency (Swallow): 5 days per week (09/02/251099) Predicted Duration Therapy Intervention (Days): 2 weeks (09/02/251099) Oral Care Recommendations: Oral Care BID/PRN, Suction toothbrush (09/02/251099) Progress: declining SWALLOW EVALUATION (Last 72 Hours) ROLLING UP MACHINE OPERATOR Adult Swallow Evaluation Row Name 09/02/25109909/01/25 9480 08/31/25 0815 Rehab Evaluation Document Type re-evaluation [...] Pertinent History Of Current Problem See previous ROLLING UP MACHINE OPERATOR notes -RS See previous ROLLING UP MACHINE OPERATOR notes -SM See previous ROLLING UP MACHINE OPERATOR notes. Pt has been cleared for PO [...] -- 3L -RS Eating/Swallowing Skills fed by ROLLING UP MACHINE OPERATOR;needed assist;self-fed -RS self-fed;fed by ROLLING UP MACHINE OPERATOR;needed assist - fed by staff/caregiver -RS Positioning [...] Signs of aspiration;Silent aspiration;Risks of aspiration -RS ROLLING UP MACHINE OPERATOR Evaluation Clinical Impression ROLLING UP MACHINE OPERATOR Swallowing Diagnosis mild;oral dysphagia;mod-severe;pharyngeal dysphagia -RS -- moderate;oral dysphagia;pharyngeal dysphagia -RS Functional Impact risk of aspiration/pneumonia -RS -- risk of aspiration/pneumonia -RS Rehab Potential/Prognosis, Swallowing good, to achieve stated therapy goals -RS -- good, to achievestated therapy goals -RS Swallow Criteria for Skilled Therapeutic Interventions Met demonstrates skilled criteria -RS -- demonstrates skilled criteria -RS ROLLING UP MACHINE OPERATOR Treatment Clinical Impressions Treatment Assessment (ROLLING UP MACHINE OPERATOR) -- toleration of diet;clinical signs of;aspiration - SM -- Treatment Assessment Comments (ROLLING UP MACHINE OPERATOR) -- Pt requesting thin liquids. Explained justification of thickened liquids -SM -- Daily Summary of Progress (ROLLING UP MACHINE OPERATOR) -- progress toward functional goals is good -SM -- Plan for Continued Treatment (ROLLING UP MACHINE OPERATOR) -- continue treatment per plan of care -SM -- Care Plan Review -- evaluation/treatment results reviewed;patient/other agree to care plan -SM -- Recommendations Therapy Frequency (Swallow) 5 days per week -RS 5 days per week -SM 5 days per week -RS Predicted Duration Therapy Intervention (Days) 2 weeks -RS 2 weeks -SM 2 weeks -RS ROLLING UP MACHINE OPERATOR Diet Recommendation mechanical ground textures;no mixed consistencies;honey [...] toothbrush -SM Oral Care BID/PRN;Suction toothbrush -RS ROLLING UP MACHINE OPERATOR Rec. for Method of Medication Administration meds whole;with thick liquids;with puree -RS meds whole;with thick liquids -SM meds whole;with thick liquids;meds via alternate route -RS Monitor for Signs of Aspiration yes;notify ROLLING UP MACHINE OPERATOR if any concerns -RS yes;notify ROLLING UP MACHINE OPERATOR if any concerns -SM yes;notify ROLLING UP MACHINE OPERATOR if any concerns -RS Anticipated Discharge Disposition (ROLLING UP MACHINE OPERATOR) inpatient rehabilitation facility -RS inpatient rehabilitation facility -SM inpatient rehabilitation facility -RS User Jung (r) = Recorded By, (t) = Taken By, (c) = Cosigned By Initials Name Effective Dates RS Andrea Dukes MS CCC-ROLLING UP MACHINE OPERATOR 07/03/23 - Nora Weiner MS CF-ROLLING UP MACHINE OPERATOR 03/24/25 - EDUCATION The patient has been educated in the following areas: Dysphagia (Swallowing Impairment) Modified Diet Instruction. ROLLING UP MACHINE OPERATOR GOALS Row Name 09/02/25 1100 09/01/25 1530 08/31/25 0815 (LTG) Patient will demonstrate functional swallow for Diet Texture (Demonstrate functional swallow) regular textures -RS regular textures -SM regular textures -RS Liquid viscosity (Demonstrate functional swallow) thin liquids -RS thin liquids -SM thin liquids -RS [place] (Demonstrate functional swallow) independently (over 90% accuracy) [...] signs of distress;with adequate oral prep/transit/clearance -RS [place] (Tolerate trials) with minimal cues (75-90% accuracy) -RS with minimal cues (75-90% accuracy) -SM with minimal cues (75-90% accuracy) -RS Time Frame (Tolerate trials) 1 week -RS 1 week -SM 1 week -RS Progress/Outcomes (Tolerate trials) goal revised this date -RS goal revised this date - new goal -RS Comment (Tolerate trials) -- Upgraded to [facility] grnd solids -SM -- (STG) Patient will [...] signs of distress;with adequate oral prep/transit/clearance -RS [place] (Tolerate therapeutic trials) with minimal cues (75-90% [...] w/ solid, but [facility] tolerance -SM -- (STG) Lingual Strengthening Goal 1 (ROLLING UP MACHINE OPERATOR) Activity (Lingual Strengthening Goal 1, ROLLING UP MACHINE OPERATOR) increase tongue back strength -RS increase tongue backstrength -SM increase tongue back strength -RS Increase Tongue Back Strength lingual resistance exercises -RS lingual resistance exercises -SM lingual resistance exercises -RS [place]/Accuracy (Lingual Strengthening Goal 1, ROLLING UP MACHINE OPERATOR) with minimal cues (75- 90% accuracy) -RS with minimal cues (75-90% accuracy) -SM with minimal cues (75- 90% accuracy) -RS Time Frame (Lingual Strengthening Goal 1, ROLLING UP MACHINE OPERATOR) 1 week -RS 1 week -SM 1 week -RS Progress/Outcomes (Lingual Strengthening Goal 1, ROLLING UP MACHINE OPERATOR) goal ongoing -RS continuing progress toward goal -SM new goal -RS (STG) Pharyngeal Strengthening Exercise Goal 1 (ROLLING UP MACHINE OPERATOR) Activity (Pharyngeal Strengthening Goal 1, ROLLING UP MACHINE OPERATOR) increase timing;increase superior movement of the hyolaryngeal [...] Retraction mike -RS mike -SM mike -RS [place]/Accuracy (Pharyngeal Strengthening Goal 1, ROLLING UP MACHINE OPERATOR) with minimal cues (75-90% accuracy) -RS with minimal cues (75-90% accuracy) -SM with minimal cues (75-90% accuracy) -RS Time Frame (Pharyngeal Strengthening Goal 1, ROLLING UP MACHINE OPERATOR) 1 week -RS 1 week -SM 1 week -RS Progress/Outcomes (Pharyngeal Strengthening Goal 1, ROLLING UP MACHINE OPERATOR) goal ongoing -RS continuing progress toward goal -SM new goal -RS Comment (Pharyngeal Strengthening Goal 1, ROLLING UP MACHINE OPERATOR) -- Demo'd all and left at bedside - -- User Jung (r) = Recorded By, (t) = Taken By, (c) = Cosigned By Initials Name Provider Type RS Andrea Dukes MS CCC-ROLLING UP MACHINE OPERATOR Speech and Language Pathologist Nora Weiner MS CF-ROLLING UP MACHINE OPERATOR Speech and Language Pathologist Time Calculation: Time Calculation- ROLLING UP MACHINE OPERATOR Row Name 09/02/25 1302 Time Calculation- ROLLING UP MACHINE OPERATOR ROLLING UP MACHINE OPERATOR Start Time 1100 -RS ROLLING UP MACHINE OPERATOR Received On 09/02/25 -RS Untimed Charges 10006-VZ Motion Fluoro Eval Swallow Minutes 61 -RS Total Minutes Untimed Charges Total Minutes 61 -RS Total Minutes 61 -RS User Jung (r) = Recorded By, (t) = Taken By, (c) = Cosigned By Initials Name Provider Type RS Andrea Dukes MS CCC-ROLLING UP MACHINE OPERATOR Speech and Language Pathologist Therapy Charges for Today Code Description Service Date Service Provider Modifiers Qty [id number] HC ST MOTION FLUORO EVAL SWALLOW 4 09/02/2025 Andrea Dukes MS CCC- ROLLING UP MACHINE OPERATOR GN 1 MS MARIA INES Chatterjee 09/02/2025 * Case Management/Social Work - Daryl Schwab RN - 09/02/2025 12:36 PM EST Continued Stay Note [facility] Patient Name: Loc Thurman Today's Date: 09/02/2025 Admit Date: 08/27/2025 Plan: rehab [facility] Discharge Plan Row Name 09/02/25 1231 Plan Plan rehab [facility] Patient/Family in Agreement with Plan yes Plan Comments Discussed in MDR, speech f/u today. PT/OT today. Per OR notes, will f/u on Friday. I updated Ella @ [facility] in [place], [place] that OR is following up w/him on Friday so d/c will be early next week. Son was interested in cost of transportation to [facility], I called Karel @ [employer] wheelchair van is base of $125 plue $5 each mile. Son stated that either he or may need wheelchair transport and if that is the cost it is what it is. I will fax updated notes to Ella from today to [phone] and I will f/u w/her onFriday her contact number is [phone]. DC plan is [facility] may need wheelchair van transportation vs son transporting. CM will continue to follow. Final Discharge Disposition Code 62 - inpatient rehab facility Discharge Codes No documentation. Expected Discharge Date and Time Expected Discharge Date Expected Discharge Time Sep 06, 2025 Daryl Schwab RN * Therapy Treatment Note - Rhianna Tilley PT - 09/02/2025 10:28 AM EST Images [...] INTRAOPERATIVE CHOLANGIOGRAM; Surgeon: Hermes Jaramillo MD; Location: [facility]; Service: General; Laterality: N/A; COLONOSCOPY [...] By Initials Name Provider Type LM Rhianna iTlley PT Physical Therapist Mobility Row Name 09/02/25 1143 Bed Mobility Comment, (Bed Mobility) Up in chair upon entering room. With MT going for MBS at end of session. -LM Row Name 09/02/25 1143 Sit-Stand Transfer Sit-Stand [place] (Transfers) minimum assist (75% patient effort);1 person assist;verbal cues -LM Assistive Device (Sit-Stand Transfers) walker, front-wheeled -LM Comment, (Sit-Stand Transfer) Vc's for hand placement. Increased time/effort needed. -LM Row Name 09/02/25 1143 Gait/Stairs (Locomotion) [place] Level (Gait) minimum assist (75% patient effort);1 [...] PT Physical Therapist Obj/Interventions Row Name 09/02/25 114 Motor Skills Therapeutic Exercise hip;knee;ankle - Row Name 09/02/25 114 Hip (Therapeutic Exercise) Hip (Therapeutic Exercise) AROM (active range of motion);isometric exercises - Hip AROM (Therapeutic Exercise) bilateral;aBduction;aDduction;sitting;10 repetitions - Hip Isometrics (Therapeutic Exercise) bilateral;gluteal sets;sitting;10 repetitions - Row Name 09/02/25 114 Knee (Therapeutic Exercise) Knee (Therapeutic Exercise) AROM (active range of motion);isometric exercises - Knee AROM (Therapeutic Exercise) bilateral;heel slides;sitting;10 repetitions - Knee Isometrics (Therapeutic Exercise) bilateral;quad sets;sitting;10 repetitions - Row Name 09/02/25 114 Ankle (Therapeutic Exercise) Ankle (Therapeutic Exercise) AROM (active range of motion) - Ankle AROM (Therapeutic Exercise) bilateral;dorsiflexion;plantarflexion;sitting;10 repetitions - Row Name 09/02/25 114 Balance Static Sitting [...] Provider Type Rhianna Montano, PT Physical Therapist Goals/Plan No documentation. Clinical [...] Physical Therapist Outcome Measures Row Name 09/02/25 1148 How much help from another person do [...] Therapist Physical Therapy Education Title: PT OT ROLLING UP MACHINE OPERATOR Therapies (In Progress) Topic: Physical Therapy (In [...] Initials Effective Dates Name Provider Type Discipline 05/06/25 - Rhianna Tilley, PT Physical Therapist [...] Re-Cert Due Date 09/09/25 -LM Timed Charges 88403 - PT Therapeutic Exercise Minutes 16 -LM 28688 - Gait Training Minutes 10 -LM Total Minutes Timed Charges Total Minutes 26 -LM Total Minutes 26 -LM User Jung (r) = Recorded By, (t) = Taken By, (c) = Cosigned By Initials Name Provider Type LM Rhianna Tilley, PT Physical Therapist Therapy Charges for Today Code Description Service Date Service Provider Modifiers Qty [id number] HC GAIT TRAINING EA 15 MIN 09/02/2025 Rhianna Tilley, PT GP 1 [id number] HC PT THER PROC EA 15 MIN [...] INTRAOPERATIVE CHOLANGIOGRAM; Surgeon: Hermes Jaramillo MD; Location: [facility]; Service: General; Laterality: N/A; COLONOSCOPY HERNIA REPAIR General Information Row Name 09/02/25 0841 OT Time and Intention Document Type therapy note (daily note) - Mode of Treatment occupational therapy -AC Row Name 09/02/25840 General Information Patient Profile Reviewed yes - Existing Precautions/Restrictions fall abdominal incision, anxiety - Barriers to Rehab medically complex;previous functional deficit -AC Row Name 09/02/2566 Cognition Orientation Status (Cognition) oriented x 3 - Row Name 09/02/2505 Safety Issues/Impairments Affecting Functional Mobility Safety Issues [...] Abernathy OT Occupational Therapist Mobility/ADL's Row Name 09/02/2579 Bed Mobility Bed Mobility supine-sit - Supine-Sit [place] (Bed Mobility) moderate assist (50% patient effort);verbal cues - Bed Mobility, Safety Issues decreased use of arms for pushing/pulling;decreased use of legs for bridging/pushing;impaired trunk control for bed mobility - Assistive Device (Bed Mobility) bed rails;head of bed elevated - Comment, (Bed Mobility) reporting dizziness upon sitting, but resolved after sititng ~ 5min, BP stable - Row Name 09/02/2582 Transfers Transfers sit-stand transfer;toilet transfer - Row Name 09/02/25 0843 Bed-Chair Transfer Bed-Chair [place] (Transfers) verbal cues;minimum assist (75% patient effort) - Assistive Device (Bed-Chair Transfers) walker, front-wheeled - Comment, (Bed-Chair Transfer) increased time and effort, tremulous - Row Name 09/02/25842 Sit-Stand Transfer Sit-Stand [place] (Transfers) minimum assist (75% patient effort);verbal cues - Assistive Device (Sit-Stand Transfers) walker, front-wheeled - Comment, (Sit-Stand Transfer) VCs for hand placement and to place both feet in walker - Row Name 09/02/25 Toilet Transfer [place] Level (Toilet Transfer) minimum assist (75% patient effort);1 person to manage equipment - Assistive Device (Toilet Transfer) commode, bedside without drop arms - Comment, (Toilet Transfer) increased time to take side steps, VCs to sequence - Row Name 09/02/25 Functional Mobility Functional Mobility- Ind. Level minimum assist (75% patient effort) - Functional Mobility- Device walker, front-wheeled - Functional Mobility-Distance (Feet) -- 4 fft + 4ft - Functional Mobility- Safety Issues step length decreased - Row Name 09/02/25842 Activities of Daily Living BADL Assessment/Intervention lower body dressing;grooming;toileting - Row Name 09/02/25 Lower Body Dressing Assessment/Training [place] Level (Lower Body Dressing) don;socks;dependent (less than 25% patient effort) - Position (Lower Body Dressing) supine - Row Name 09/02/25 Grooming Assessment/Training [place] Level (Grooming) hair care, combing/brushing;oral care regimen;wash face, hands;standby assist - Position (Grooming) edge of bed sitting - Comment, (Grooming) bed pushed up to sink for grooming per pt request - Row Name 09/02/25 Toileting Assessment/Training [place] Level (Toileting) adjust/manage clothing;perform perineal hygiene;maximum assist (25% patient effort) - Assistive Devices (Toileting) commode, bedside without drop arms - Position (Toileting) supported standing - User Jung (r) = Recorded By, (t) = Taken By, (c) = Cosigned By Initials Name Provider Type Patsy Abernathy, OT Occupational Therapist Obj/Interventions Row Name 09/02/25 [...] Provider Type Patsy Abernathy, OT Occupational Therapist Goals/Plan No documentation. Clinical [...] Therapist Occupational Therapy Education Title: PT OT ROLLING UP MACHINE OPERATOR Therapies (In Progress) Topic: Occupational Therapy (In [...] Initials Effective Dates Name Provider Type [facility] 11/22/22 - Patsy Abernathy, OT Occupational Therapist [...] and decr balance limiting independence with ADLs/mobiltiy. RecommendIP rehab upon d/c. Time Calculation: Time Calculation- OT Row Name 09/02/25 0740 Time Calculation- OT OT Start Time 0740 -AC OT Received On 09/02/25 -AC OT Goal Re-Cert Due Date 09/09/25 -AC Timed Charges 92633 - OT Therapeutic Activity Minutes 15 -AC 78186 - OT Self Care/Mgmt Minutes 40 -AC Total Minutes Timed Charges Total Minutes 55 -AC Total Minutes 55 -AC User Jnug (r) = Recorded By, (t) = Taken By, (c) = Cosigned By Initials Name Provider Type AC Patsy Abernathy, OT Occupational Therapist Therapy Charges for Today Code Description Service Date Service Provider Modifiers Qty 16896411774 HC OT THERAPEUTIC ACT EA 15 MIN 09/02/2025 Patsy Abernathy OT GO 1 98044267876 HC OT SELF CARE/MGMT/TRAIN EA 15 MIN 09/02/2025 Patsy Abernathy OT GO 3 Patsy Burton. ARY Abernathy 09/02/2025 * Therapy Treatment Note - Nora Montano, MS CF-ROLLING UP MACHINE OPERATOR - 09/01/2025 4:11 PM EST Images from the original note were not included. Acute Care - Speech Language Pathology Swallow Treatment Note WILTON Gracia Patient Name: Loc Thurman : 1940 Today's [...] INTRAOPERATIVE CHOLANGIOGRAM; Surgeon: Hermes Jaramillo MD; Location: [facility]; Service: General; Laterality: N/A; COLONOSCOPY HERNIA REPAIR ROLLING UP MACHINE OPERATOR Recommendation and Plan Recommended discharge disposition is based on the functional assessment performed by PT/OT/Speech therapy (as applicable) and may not reflect the medical necessity determined by your provider or services covered by an individual patient's insurance plan or patient resource. ROLLING UP MACHINE OPERATOR Diet Recommendation: mechanical ground textures, nectar thick liquids, ice chips between meals after oral care, with supervision (09/01/251529) Recommended Precautions and Strategies: upright posture during/after eating, general aspiration precautions (09/01/251529) ROLLING UP MACHINE OPERATOR Rec. for Method of Medication Administration: meds whole, with thick liquids (09/01/251529) Monitor for Signs of Aspiration: yes, notify ROLLING UP MACHINE OPERATOR if any concerns (09/01/251529) Recommended Diagnostics: reassess via FEES (09/01/251529) Anticipated Discharge Disposition (ROLLING UP MACHINE OPERATOR): inpatient rehabilitation facility (09/01/251529) Therapy Frequency (Swallow): 5 days per week (09/01/251529) Predicted Duration Therapy Intervention (Days): 2 weeks (09/01/251529) Oral Care Recommendations: Oral Care BID/PRN, Suction toothbrush (09/01/251529) Daily Summary of Progress (ROLLING UP MACHINE OPERATOR): progress toward functional goals is good (09/01/251529) Treatment Assessment (ROLLING UP MACHINE OPERATOR): toleration of diet, clinical signs of, aspiration (09/01/251529) Treatment Assessment Comments (ROLLING UP MACHINE OPERATOR): Pt requesting thin liquids. Explained justification of thickened liquids (09/01/251529) Plan for Continued Treatment (ROLLING UP MACHINE OPERATOR): continue treatment per plan of care (11/13/25 1530) SWALLOW EVALUATION (Last 72 Hours) ROLLING UP MACHINE OPERATOR Adult Swallow Evaluation Row Name 09/01/25 1530 [...] Pertinent History Of Current Problem See previous ROLLING UP MACHINE OPERATOR notes -SM See previous ROLLING UP MACHINE OPERATOR notes. Pt has beencleared for PO diet [...] 3L -RS -- Eating/Swallowing Skills self-fed;fed by ROLLING UP MACHINE OPERATOR;needed assist - fed by staff/caregiver -RS self-fed;fed by ROLLING UP MACHINE OPERATOR -AC (r) IG (t) AC (c) Positioning During Eating upright 90 degree;upright in chair - upright 90 degree;upright in bed -RS upright 90 degree;upright in chair -AC (r) IG (t) AC (c) Utensils Used straw -SM spoon;cup;straw -RS spoon;cup -AC (r) IG (t) AC (c) Consistencies Trialed regular textures;thin liquids;nectar/syrup-thick liquids;ice chips -SM soft to chew textures;mechanical [...] of aspiration;Silent aspiration;Risks of aspiration -RS -- ROLLING UP MACHINE OPERATOR Evaluation Clinical Impression ROLLING UP MACHINE OPERATOR Swallowing Diagnosis -- moderate;oral dysphagia;pharyngeal dysphagia -RS [...] criteria -AC (r) IG (t) AC (c) ROLLING UP MACHINE OPERATOR Treatment Clinical Impressions Treatment Assessment (ROLLING UP MACHINE OPERATOR) toleration of diet;clinical signs of;aspiration - -- -- Treatment Assessment Comments (ROLLING UP MACHINE OPERATOR) Pt requesting thin liquids. Explained justification of thickened liquids - -- -- Daily Summary of Progress (ROLLING UP MACHINE OPERATOR) progress toward functional goals is good - -- -- Plan for Continued Treatment (ROLLING UP MACHINE OPERATOR) continue treatment per plan of care - -- -- Care Plan Review evaluation/treatment results reviewed;patient/other agree to care plan - -- -- Recommendations Therapy Frequency (Swallow) 5 days per week -SM 5 days per week -RS -- Predicted Duration Therapy Intervention (Days) 2 weeks - 2 weeks -RS 2 weeks - AC (r) IG (t) AC (c) ROLLING UP MACHINE OPERATOR Diet Recommendation mechanical ground textures;nectar thick liquids;ice [...] toothbrush - (r) IG (t) AC (c) ROLLING UP MACHINE OPERATOR Rec. for Method of Medication Administration meds whole;with thick liquids - meds whole;with thick liquids;meds via alternate route -RS meds via alternate route -AC (r) IG (t) AC (c) Monitor for Signs of Aspiration yes;notify ROLLING UP MACHINE OPERATOR if any concerns -SM yes;notify ROLLING UP MACHINE OPERATOR if any concerns -RS yes;notify ROLLING UP MACHINE OPERATOR if any concerns -AC (r) IG (t) AC (c) Anticipated Discharge Disposition (ROLLING UP MACHINE OPERATOR) inpatient rehabilitation facility -SM inpatient rehabilitation facility -RS inpatient rehabilitation facility -AC (r) IG (t) AC (c) User Jung (r) = Recorded By, (t) = Taken By, (c) = Cosigned By Initials Name Effective Dates AC Lea Echols, MS [facility]-ROLLING UP MACHINE OPERATOR 11/22/22 - RS Andrea Dukes, MS [facility]-ROLLING UP MACHINE OPERATOR 07/03/23 - SM Nora Montano, MS -ROLLING UP MACHINE OPERATOR 03/24/25 - IG Alma Aiken, Speech Therapy Student 06/08/25 - EDUCATION The patient has been educated in the following areas: Dysphagia (Swallowing Impairment) Oral Care/Hydration Modified Diet Instruction. ROLLING UP MACHINE OPERATOR GOALS Row Name 09/01/25 1530 08/31/25 0815 (LTG) Patient will demonstrate functional swallow for Diet Texture (Demonstrate functional swallow) regular textures -SM regular textures -RS Liquid viscosity (Demonstrate functional swallow) thin liquids -SM thin liquids -RS [place] (Demonstrate functional swallow) independently (over 90% accuracy) [...] signs of distress;with adequate oral prep/transit/clearance -RS [place] (Tolerate trials) with minimal cues (75-90% accuracy) -SM with minimal cues (75-90% accuracy) -RS Time Frame (Tolerate trials) 1 week -SM 1 week -RS Progress/Outcomes (Tolerate trials) goal revised this date - new goal -RS Comment (Tolerate trials) Upgraded to [facility] grnd solids -SM -- (STG) Patient will tolerate therapeutic trials of Consistencies Trialed (Tolerate therapeutic trials) soft to chew (chopped) textures;nectar/ mildly thick liquids -SM soft to chew (chopped) textures;nectar/ mildly thick liquids -RS Desired Outcome (Tolerate therapeutic trials) without signs/symptoms of aspiration;without signs ofdistress;with adequate oral prep/transit/clearance - SM without signs/symptoms of aspiration;withoutsigns of distress;with adequate oral prep/transit/clearance -RS [place] (Tolerate therapeutic trials) with minimal cues (75-90% [...] w/ solid, but OK [facility] and monitor tolerance -SM -- (STG) Lingual Strengthening Goal 1 (ROLLING UP MACHINE OPERATOR) Activity (Lingual Strengthening Goal 1, ROLLING UP MACHINE OPERATOR) increase tongue back strength -SM increase tongue backstrength -RS Increase Tongue Back Strength lingual resistance exercises -SM lingual resistance exercises -RS [place]/Accuracy (Lingual Strengthening Goal 1, ROLLING UP MACHINE OPERATOR) with minimal cues (75- 90% accuracy) -SM with minimal cues (75-90% accuracy) -RS Time Frame (Lingual Strengthening Goal 1, ROLLING UP MACHINE OPERATOR) 1 week -SM 1 week -RS Progress/Outcomes (Lingual Strengthening Goal 1, ROLLING UP MACHINE OPERATOR) continuing progress toward goal -SM new goal -RS (STG) Pharyngeal Strengthening Exercise Goal 1 (ROLLING UP MACHINE OPERATOR) Activity (Pharyngeal Strengthening Goal 1, ROLLING UP MACHINE OPERATOR) increase timing;increase superior movement of the hyolaryngeal [...] Tongue Base Retraction mike -SM mike -RS [place]/Accuracy (Pharyngeal Strengthening Goal 1, ROLLING UP MACHINE OPERATOR) with minimal cues (75-90% accuracy) -SM with minimal cues (75-90% accuracy) -RS Time Frame (Pharyngeal Strengthening Goal 1, ROLLING UP MACHINE OPERATOR) 1 week -SM 1 week -RS Progress/Outcomes (Pharyngeal Strengthening Goal 1, ROLLING UP MACHINE OPERATOR) continuing progress toward goal -SM new goal -RS Comment (Pharyngeal Strengthening Goal 1, ROLLING UP MACHINE OPERATOR) Demo'd all and left at bedside - -- User Jung (r) = Recorded By, (t) = Taken By, (c) = Cosigned By Initials Name Provider Type RS Andrea Dukes MS CCC-ROLLING UP MACHINE OPERATOR Speech and Language Pathologist Nora Weiner MS CF-ROLLING UP MACHINE OPERATOR Speech and Language Pathologist Time Calculation: Time Calculation- ROLLING UP MACHINE OPERATOR Row Name 09/01/25 1611 Time Calculation- ROLLING UP MACHINE OPERATOR ROLLING UP MACHINE OPERATOR Start Time 1530 - ROLLING UP MACHINE OPERATOR Received On 09/01/25 - Untimed Charges 79258-CP Treatment Swallow Minutes 38 -SM Total Minutes Untimed Charges Total Minutes 38 -SM Total Minutes 38 -SM User Jung (r) = Recorded By, (t) = Taken By, (c) = Cosigned By Initials Name Provider Type Nora Weiner MS CF-ROLLING UP MACHINE OPERATOR Speech and Language Pathologist Therapy Charges for Today Code Description Service Date Service Provider Modifiers Qty [id number] HC ST TREATMENT SWALLOW 3 09/01/2025 Nora Montano MS CF- ROLLING UP MACHINE OPERATOR GN 1 MS BECKY Jarvis-ROLLING UP MACHINE OPERATOR 09/01/2025 * Case Management/Social Work - Daryl Schwab RN - 09/01/2025 2:20 PM EST Continued Stay Note Basil Patient Name: Loc Thurman Today's Date: 09/01/2025 Admit Date: 08/27/2025 Plan: rehab Discharge Plan Row Name 09/01/25 1416 Plan Plan rehab Patient/Family in Agreement with Plan yes Plan Comments I had a call from Ella @ [facility] in [place], interested in Mr. Thurman for rehab. Her contact is [phone]. She is going to reach out to [...] - inpatient rehab facility Row Name 09/01/25 1857 Plan Plan rehab Patient/Family in Agreement with Plan yes Plan Comments Discussed in MDR, transferred from ICU to floor 11/12 pm, per MDR, voiding trials, NGdiscontinued, puree nectar diet. I met w/Mr. Thurman, his son, and niece in room to discuss d/c planning. I explained that a referral was faxed to [facility], which son stated was very close to his home. I printed a patient choice list for them to review w/acute/Skilled facilities, after discussion, son w/patient's permissions requested a referral to be sent to [facility] in [place], [place]. I calledand spoke w/Alejandra and faxed a referral to [phone]. CM will continue to follow and assist w/dc planning. Final Discharge Disposition Code 62 - inpatient rehab facility Discharge Codes No documentation. Daryl Schwab RN * Case Management/Social Work - Daryl Schwab RN - 09/01/2025 12:42 PM EST Continued Stay Note Basil Patient [...] explained that a referral was faxed to [facility], which son stated was very close to his home. I printed a patient choice list for them to review w/acute/Skilled facilities, after discussion, son w/patient's permissions requested a referral to be sent to [facility] in [place], [place]. I calledand spoke w/Alejandra and faxed a referral to [phone]. will continue to follow and assist w/dc [...] INTRAOPERATIVE CHOLANGIOGRAM; Surgeon: Hermes Jaramillo MD; Location: [facility]; Service: General; Laterality: N/A; COLONOSCOPY [...] 08/31/25 1339 Bed Mobility Comment, (Bed Mobility) [facility] upon arrival -AN User Jung (r) = [...] Student Occupational Therapy Education Title: PT OT ROLLING UP MACHINE OPERATOR Therapies (In Progress) Topic: Occupational Therapy (Done) [...] OT Received On 08/31/25 -AN Timed Charges 56895 - OT Therapeutic Exercise Minutes 12 -AN Total Minutes Timed Charges Total Minutes 12 -AN Total Minutes 12 -AN User Jung (r) = Recorded By, (t) = Taken By, (c) = Cosigned By Initials Name Provider Type Radha Liao OT Occupational Therapist Therapy Charges for Today Code Description Service Date Service Provider Modifiers Qty [id number] HC OT THER PROC EA 15 MIN 08/31/2025 Radha Smith OT GO 1 Radha Smith OT 08/31/2025 * MBS/VFSS/FEES - Andrea Dukes MS CCC-ROLLING UP MACHINE OPERATOR - 08/31/2025 9:54 AM EST Images from the original note were not included. Acute Care - Speech Language Pathology Swallow Re-Evaluation [facility] Fiberoptic Endoscopic Evaluation of Swallowing (FEES) Patient [...] INTRAOPERATIVE CHOLANGIOGRAM; Surgeon: Hermes Jaramillo MD; Location: [facility]; Service: General; Laterality: N/A; COLONOSCOPY HERNIA REPAIR ROLLING UP MACHINE OPERATOR Recommendation and Plan Recommended discharge disposition is based on the functional assessment performed by PT/OT/Speech therapy (as applicable) and may not reflect the medical necessity determined by your provider or services covered by an individual patient's insurance plan or patient resource. ROLLING UP MACHINE OPERATOR Swallowing Diagnosis: moderate, oral dysphagia, pharyngeal dysphagia (08/31/25814) ROLLING UP MACHINE OPERATOR Diet Recommendation: puree, nectar thick liquids, other (see comments) (PO diet at discretion of surgeon only) (08/31/25814) Recommended Precautions and Strategies: upright posture during/after eating, general aspiration precautions (08/31/25814) ROLLING UP MACHINE OPERATOR Rec. for Method of Medication Administration: meds whole, with thick liquids, meds via alternate route (08/31/25814) Monitor for Signs of Aspiration: yes, notify ROLLING UP MACHINE OPERATOR if any concerns (08/31/25814) Swallow Criteria for Skilled Therapeutic Interventions Met: demonstrates skilled criteria (5) Anticipated Discharge Disposition (ROLLING UP MACHINE OPERATOR): inpatient rehabilitation facility (08/31/25814) Rehab Potential/Prognosis, Swallowing: good, to achieve stated therapy goals (08/31/25814) Therapy Frequency (Swallow): 5 days per week (08/31/25814) Predicted Duration Therapy Intervention (Days): 2 weeks (08/31/25814) Oral Care Recommendations: Oral Care BID/PRN, Suction toothbrush (08/31/25814) Progress: improving SWALLOW EVALUATION (Last 72 Hours) ROLLING UP MACHINE OPERATOR Adult Swallow Evaluation Row Name 11/12/25 0815 08/30/25 1003 Rehab Evaluation Document Type re-evaluation -RS evaluation [...] Pertinent History Of Current Problem See previous ROLLING UP MACHINE OPERATOR notes. Pt has been cleared for PO [...] Skills fed by staff/caregiver -RS self-fed;fed by ROLLING UP MACHINE OPERATOR -AC (r) IG (t) AC (c) Positioning [...] of aspiration;Silent aspiration;Risks of aspiration -RS -- ROLLING UP MACHINE OPERATOR Evaluation Clinical Impression ROLLING UP MACHINE OPERATOR Swallowing Diagnosis moderate;oral dysphagia;pharyngeal dysphagia -RS suspected [...] weeks -AC (r) IG (t) AC (c) ROLLING UP MACHINE OPERATOR Diet Recommendation puree;nectar thick liquids;other (see comments) [...] toothbrush -AC (r) IG (t) AC (c) ROLLING UP MACHINE OPERATOR Rec. for Method of Medication Administration meds whole;with thick liquids;meds via alternate route -RS meds via alternate route -AC (r) IG (t) AC (c) Monitor for Signs of Aspiration yes;notify ROLLING UP MACHINE OPERATOR if any concerns -RS yes;notify ROLLING UP MACHINE OPERATOR if any concerns -AC (r) IG (t) AC (c) Anticipated Discharge Disposition (ROLLING UP MACHINE OPERATOR) inpatient rehabilitation facility -RS inpatient rehabilitation facility -AC (r) IG (t) AC (c) User Jung (r) = Recorded By, (t) = Taken By, (c) = Cosigned By Initials Name Effective Dates AC Lea Echols, MS [facility]-ROLLING UP MACHINE OPERATOR 11/22/22 - Andrea Mitchell MS [facility]-ROLLING UP MACHINE OPERATOR 07/03/23 - Alma Arshad, Speech Therapy Student 06/08/25 - EDUCATION The patient has been educated in the following areas: Dysphagia (Swallowing Impairment) Modified Diet Instruction. ROLLING UP MACHINE OPERATOR GOALS Row Name 08/31/25 0815 (LTG) Patient will demonstrate functional swallow for Diet Texture (Demonstrate functional swallow) regular textures -RS Liquid viscosity (Demonstrate functional swallow) thin liquids -RS [place] (Demonstrate functional swallow) independently (over 90% accuracy) -RS Time Frame (Demonstrate functional swallow) 2 weeks -RS Progress/Outcomes (Demonstrate functional swallow) new goal -RS (STG) Patient will tolerate trials of Consistencies Trialed (Tolerate trials) pureed textures;nectar/ mildly thick liquids -RS Desired Outcome (Tolerate trials) without signs/symptoms of aspiration;without signs of distress;with adequate oral prep/transit/clearance -RS [place] (Tolerate trials) with minimal cues (75-90% accuracy) -RS Time Frame (Tolerate trials) 1 week -RS Progress/Outcomes (Tolerate trials) new goal -RS (STG) Patient will tolerate therapeutic trials of Consistencies Trialed (Tolerate therapeutic trials) soft to chew (chopped) textures;nectar/ mildly thick liquids -RS Desired Outcome (Tolerate therapeutic trials) without signs/symptoms of aspiration;without signs ofdistress;with adequate oral prep/transit/clearance -RS [place] (Tolerate therapeutic trials) with minimal cues (75-90% accuracy) -RS Time Frame (Tolerate therapeutic trials) 1 week -RS Progress/Outcomes (Tolerate therapeutic trials) new goal -RS (STG) Lingual Strengthening Goal 1 (ROLLING UP MACHINE OPERATOR) Activity (Lingual Strengthening Goal 1, ROLLING UP MACHINE OPERATOR) increase tongue back strength -RS Increase Tongue Back Strength lingual resistance exercises -RS [place]/Accuracy (Lingual Strengthening Goal 1, ROLLING UP MACHINE OPERATOR) with minimal cues (75- 90% accuracy) -RS Time Frame (Lingual Strengthening Goal 1, ROLLING UP MACHINE OPERATOR) 1 week -RS Progress/Outcomes (Lingual Strengthening Goal 1, ROLLING UP MACHINE OPERATOR) new goal -RS (STG) Pharyngeal Strengthening Exercise Goal 1 (ROLLING UP MACHINE OPERATOR) Activity (Pharyngeal Strengthening Goal 1, ROLLING UP MACHINE OPERATOR) increase timing;increase superior movement of the hyolaryngeal [...] -RS Increase Tongue Base Retraction mike -RS [place]/Accuracy (Pharyngeal Strengthening Goal 1, ROLLING UP MACHINE OPERATOR) with minimal cues (75-90% accuracy) -RS Time Frame (Pharyngeal Strengthening Goal 1, ROLLING UP MACHINE OPERATOR) 1 week -RS Progress/Outcomes (Pharyngeal Strengthening Goal 1, ROLLING UP MACHINE OPERATOR) new goal -RS User Jung (r) = Recorded By, (t) = Taken By, (c) = Cosigned By Initials Name Provider Type RS Andrea Dukes MS [facility]-ROLLING UP MACHINE OPERATOR Speech and Language Pathologist Time Calculation: Time Calculation- ROLLING UP MACHINE OPERATOR Row Name 08/31/25 0953 Time Calculation- ROLLING UP MACHINE OPERATOR ROLLING UP MACHINE OPERATOR Start Time 0815 -RS ROLLING UP MACHINE OPERATOR Received On 08/31/25 -RS Untimed Charges 36388-[facility] Fiberoptic Endo Eval Swallow Minutes 105 -RS Total Minutes Untimed Charges Total Minutes 105 -RS Total Minutes 105 -RS User Jung (r) = Recorded By, (t) = Taken By, (c) = Cosigned By Initials Name Provider Type RS Andrea Dukes MS CCC-ROLLING UP MACHINE OPERATOR Speech and Language Pathologist Therapy Charges for Today Code Description Service Date Service Provider Modifiers Qty [id number] ST FIBEROPTIC ENDO EVAL SWALL 7 08/31/2025 Andrea Dukes MS CCC- ROLLING UP MACHINE OPERATOR GN 1 Andrea Dukes MS CCC-ROLLING UP MACHINE OPERATOR 08/31/2025 * Therapy Treatment Note - Tee [...] INTRAOPERATIVE CHOLANGIOGRAM; Surgeon: Hermes Jaramillo MD; Location: [facility]; Service: General; Laterality: N/A; COLONOSCOPY [...] Mobility Bed Mobility supine-sit (P) -SULAIMAN Supine-Sit [place] (Bed Mobility) moderate assist (50% patient effort);2 person assist;verbal cues (P) -SULAIMAN Assistive Device (Bed Mobility) bed rails;head of bed elevated;repositioning sheet (P) -SULAIMAN Comment, (Bed Mobility) VCs for sequencing, assist at trunk and BLEs, increased time and effort, R lateral lean sitting EOB (P) -SULAIMAN Row Name 08/31/25 1027 Bed-Chair Transfer Bed-Chair [place] (Transfers) moderate assist (50% patient effort);2 person assist;verbal cues(P) -SULAIMAN Assistive Device (Bed-Chair Transfers) other (see comments) (P) BUE support -SULAIMAN Comment, (Bed-Chair Transfer) VCs for sequencing (P) -SULAIMAN Row Name 08/31/25 1027 Sit-Stand Transfer Sit-Stand [place] (Transfers) minimum assist (75% patient effort);2 person assist;verbal cues (P) -SULAIMAN Assistive Device (Sit-Stand Transfers) other (see comments) (P) B UE support -SULAIMAN Comment, (Sit-Stand Transfer) VCs for upright posture (P) -SULAIMAN Row Name 08/31/25 1027 Gait/Stairs (Locomotion) [place] Level (Gait) moderate assist (50% patient effort);2 person assist;verbal cues (P) -SULAIMAN Assistive Device (Gait) other (see comments) (P) B FIXED INCOME DIRECTOR -SULAIMAN Distance in Feet (Gait) 16 (P) [...] PT Student Goals/Plan No documentation. Clinical Impression [facility] Name 08/31/25 1033 Pain Pretreatment Pain Rating [...] IPPT. Pt amb 16 ft w/ B FIXED INCOME DIRECTOR modAx2, further mobility limited by weakness and [...] Student Physical Therapy Education Title: PT OT ROLLING UP MACHINE OPERATOR Therapies (In Progress) Topic: Physical Therapy (In [...] Received On 08/31/25 (P) -SULAIMAN Timed Charges 91379 - PT Therapeutic Activity Minutes 24 (P) -SULAIMAN Total Minutes Timed Charges Total Minutes 24 (P) -SULAIMAN Total Minutes 24 (P) -SULAIMAN User Jung (r) = Recorded By, (t) = Taken By, (c) = Cosigned By Initials Name Provider Type SULAIMAN Tee Marina, PT Student PT Student Therapy Charges for Today Code Description Service Date Service Provider Modifiers Qty 42793792806 HC PT THERAPEUTIC ACT EA 15 MIN 08/31/2025 Tee Marina, PT Student GP 2 PT G-Codes Outcome Measure Options: (P) AM-PAC 6 Clicks Basic Mobility (PT) AM-PAC 6 Clicks Score (PT): (P) 11 AM-PAC 6 Clicks Score (OT): 12 PT Discharge Summary Anticipated Discharge Disposition (PT): (P) inpatient rehabilitation facility Tee Marina, PT Student 08/31/2025 Cosigned by Flora Galvan, PT at 08/31/2025 1:04 PM EST Associated attestation - Flora Galvan, PT - 08/31/2025 1:04 PM EST Ellen Galvan, PT 08/31/2025 13:04 EST * Case Management/Social Work - Félix Azul, RN - 08/31/2025 8:32 AM EST Continued Stay Note Basil Patient Name: Loc Thurman Today's Date: 08/31/2025 Admit Date: 08/27/2025 Plan: [facility] Discharge Plan Row Name 08/31/25 0830 Plan Plan [facility] Patient/Family in Agreement with Plan yes Plan Comments Spoke with patient at bedside. Patient requested [facility] for rehab. CM faxed a referral to [facility]. CM will continuie to follow. Final Discharge Disposition Code 03 - care home facility (SNF) Discharge Codes No documentation. Félix Azul, RN * Therapy Evaluation - Alma Aiken, Speech Therapy Student - 08/30/2025 11:22 AM EST Images from the original note were not included. Acute Care - Speech Language Pathology Swallow Initial Evaluation Basil Clinical Swallow Evaluation Patient Name: Loc Thurman [...] INTRAOPERATIVE CHOLANGIOGRAM; Surgeon: Hermes Jaramillo MD; Location: [facility]; Service: General; Laterality: N/A; COLONOSCOPY HERNIA REPAIR ROLLING UP MACHINE OPERATOR Recommendation and Plan Recommended discharge disposition is based on the functional assessment performed by PT/OT/Speech therapy (as applicable) and may not reflect the medical necessity determined by your provider or services covered by an individual patient's insurance plan or patient resource. ROLLING UP MACHINE OPERATOR Swallowing Diagnosis: (P) suspected pharyngeal dysphagia (08/30/251004) ROLLING UP MACHINE OPERATOR Diet Recommendation: (P) NPO (08/30/251004) ROLLING UP MACHINE OPERATOR Rec. for Method of Medication Administration: (P) meds via alternate route (08/30/251004) Monitor for Signs of Aspiration: (P) yes, notify ROLLING UP MACHINE OPERATOR if any concerns (08/30/251004) Recommended Diagnostics: (P) FEES, other (see comments) (When medically appropriate/ cleared by surgery.) (08/30/251004) Swallow Criteria for Skilled Therapeutic Interventions Met: (P) demonstrates skilled criteria (08/30/251004) Anticipated Discharge Disposition (ROLLING UP MACHINE OPERATOR): (P) inpatient rehabilitation facility (08/30/251004) Rehab Potential/Prognosis, Swallowing: (P) good, to achieve stated therapy goals (08/30/251004) Predicted Duration Therapy Intervention (Days): (P) 2 weeks (08/30/251004) Oral Care Recommendations: (P) Oral Care BID/PRN, Suction toothbrush (11/11/25 1005) SWALLOW EVALUATION (Last 72 Hours) ROLLING UP MACHINE OPERATOR Adult Swallow Evaluation Row Name 08/30/25 1000 Rehab Evaluation Document Type evaluation (P) -IG [...] cannula (P) -IG Eating/Swallowing Skills self-fed;fed by ROLLING UP MACHINE OPERATOR (P) -IG Positioning During Eating upright 90 [...] trials okay'd by RN and (P) -IG ROLLING UP MACHINE OPERATOR Evaluation Clinical Impression ROLLING UP MACHINE OPERATOR Swallowing Diagnosis suspected pharyngeal dysphagia (P) -IG Functional Impact risk of aspiration/pneumonia;risk of malnutrition;risk of dehydration (P) -IG Rehab Potential/Prognosis, Swallowing good, to achieve stated therapy goals (P) -IG Swallow Criteria for Skilled Therapeutic Interventions Met demonstrates skilled criteria (P) -IG Recommendations Predicted Duration Therapy Intervention (Days) 2 weeks (P) -IG ROLLING UP MACHINE OPERATOR Diet Recommendation NPO (P) -IG Recommended Diagnostics FEES;other (see comments) (P) When medically appropriate/ cleared by surgery. -IG Oral Care Recommendations Oral Care BID/PRN;Suction toothbrush (P) -IG ROLLING UP MACHINE OPERATOR Rec. for Method of Medication Administration meds via alternate route (P) -IG Monitor for Signs of Aspiration yes;notify ROLLING UP MACHINE OPERATOR if any concerns (P) -IG Anticipated Discharge Disposition (ROLLING UP MACHINE OPERATOR) inpatient rehabilitation facility (P) -IG User Jung (r) = Recorded By, (t) = Taken By, (c) = Cosigned By Initials Name Effective Dates Alma Aiken, Speech Therapy Student 06/08/25 - EDUCATION The patient has been educated in the following areas: Dysphagia (Swallowing Impairment) Oral Care/Hydration. Time Calculation: Time Calculation- ROLLING UP MACHINE OPERATOR Row Name 08/30/25 1121 Time Calculation- ROLLING UP MACHINE OPERATOR ROLLING UP MACHINE OPERATOR Start Time 1005 (P) -IG ROLLING UP MACHINE OPERATOR Received On 08/30/25 (P) -IG Untimed Charges 38800-JD Eval Oral Pharyng Swallow Minutes 55 (P) -IG Total Minutes Untimed Charges Total Minutes 55 (P) -IG Total Minutes 55 (P) -IG User Jung (r) = Recorded By, (t) = Taken By, (c) = Cosigned By Initials Name Provider Type IG Alma Aiken, Speech Therapy Student ROLLING UP MACHINE OPERATOR Student Therapy Charges for Today Code Description Service Date Service Provider Modifiers Qty [id number] HC ST EVAL ORAL PHARYNG SWALLOW 4 08/30/2025 Alma Aiken, Speech Therapy Student GN1 Alma Aiken Speech Therapy Student 08/30/2025 Cosigned by Lea Echols MS CCC-ROLLING UP MACHINE OPERATOR at 08/30/2025 11:58 AM EST Associated attestation - Lea Echols MS CCC-ROLLING UP MACHINE OPERATOR - 08/30/2025 11:58 AM EST Lea Echols MS CCC-ROLLING UP MACHINE OPERATOR * Case Management/Social Work - Félix Azul, BECCA - 08/30/2025 11:14 AM EST Continued Stay Note [facility] Patient Name: Loc Thurman Today's Date: 08/30/2025 [...] INTRAOPERATIVE CHOLANGIOGRAM; Surgeon: Hermes Jaramillo MD; Location: [facility]; Service: General; Laterality: N/A; COLONOSCOPY [...] Bed Mobility Bed Mobility supine-sit - Supine-Sit [place] (Bed Mobility) moderate assist (50% patient effort);2 [...] mod Ax2 for STS & SPT from [id number] but req max Ax2 for SPT from [id number]-[id number]-[id number]. - Row Name 08/30/25 1141 Bed-Chair Transfer Bed-Chair [place] (Transfers) moderate assist (50% patient effort);2 person assist;verbal cues- Assistive Device (Bed-Chair Transfers) other (see comments) BUE support - Row Name 08/30/25 1141 Sit-Stand Transfer Sit-Stand [place] (Transfers) moderate assist (50% patient effort);2 person assist;verbal cues- Assistive Device (Sit-Stand Transfers) other (see comments) - Row Name 08/30/25 1141 Stand-Sit Transfer Stand-Sit [place] (Transfers) moderate assist (50% patient effort);2 person assist;verbal cues- Assistive Device (Stand-Sit Transfers) other (see comments) - Row Name 08/30/25 1141 Toilet Transfer Type (Toilet Transfer) sit-stand;stand-sit;stand pivot/stand step - [place] Level (Toilet Transfer) maximum assist (25% patient effort);2 person assist;verbal cues - Assistive Device (Toilet Transfer) commode, bedside without drop arms - Row Name 08/30/25 1141 Activities of Daily Living BADL Assessment/Intervention lower body dressing;upper body dressing - Row Name 08/30/25 1141 Lower Body Dressing Assessment/Training [place] Level (Lower Body Dressing) don;socks;dependent (less than 25% patient effort) - Position (Lower Body Dressing) supine - Row Name 08/30/25 1141 Upper Body Dressing Assessment/Training [place] Level (Upper Body Dressing) don;pajama/robe;maximum assist (25% patient effort) - Position (Upper Body Dressing) edge of bed sitting - User Jung (r) = Recorded By, (t) = Taken By, (c) = Cosigned By Initials Name Provider Type Aury Fitzgerald OT Occupational Therapist Obj/Interventions Row Name 08/30/25 1145 Sensory Assessment (Somatosensory) Sensory Assessment (Somatosensory) UE sensation intact -[facility] Name 08/30/25 1145 Vision Assessment/Intervention Visual Impairment/Limitations WFL - Row Name 08/30/25 1145 Range of Motion Comprehensive General Range of Motion bilateral upper extremity ROM WFL -[facility] Name 08/30/25 1145 Strength Comprehensive (MMT) [...] (OT) Activity/Assistive Device (Transfer Goal 1, OT) paq-jj-vvbtc/zuphw-ma-oum;toilet;walker, rolling - [place] Level/Cues Needed (Transfer Goal 1, OT) standby assist -MC Time Frame (Transfer Goal 1, OT) snf goal (LTG);10 days -MC Progress/Outcome (Transfer Goal 1, OT) goal ongoing -[facility] Name 08/30/25 1147 Toileting Goal 1 (OT) Activity/Device (Toileting Goal 1, OT) adjust/manage clothing;perform perineal hygiene;commode;grabbar/safety frame - [place] Level/Cues Needed (Toileting Goal 1, OT) standby assist -MC Time Frame (Toileting Goal 1, OT) short term goal (STG);5 days -MC Progress/Outcome (Toileting Goal 1, OT) goal ongoing - Row Name 08/30/25 114 Grooming Goal 1 (OT) Activity/Device (Grooming Goal 1, OT) hair care;oral care;wash face, hands - [place] (Grooming Goal 1, OT) standby assist -MC Time Frame (Grooming Goal 1, OT) snf goal (LTG);10 days - Progress/Outcome (Grooming Goal 1, OT) goal ongoing -[facility] Name 08/30/25 5219 Therapy Assessment/Plan (OT) Planned Therapy Interventions (OT) activity tolerance training;adaptive equipment training;BADL retraining;functional balance retraining;IADL retraining;occupation/activity based interventions;patient/caregiver education/training;ROM/therapeutic exercise;strengthening exercise;transfer/mobility retraining - User Jung (r) = Recorded By, (t) = Taken By, (c) = Cosigned By Initials Name Provider Type Aury Fitzgerald, OT Occupational Therapist Clinical Impression [facility] Name 08/30/25 1706 Pain Assessment Pain Location abdomen - Pain Side/Orientation generalized - Pain Management Interventions exercise or physical activity utilized;positioning techniques utilized - Response to Pain Interventions activity participation with tolerable pain - Additional Documentation Pain Scale: FACES Pre/Post-Treatment (Group) -[facility] Name 08/30/25 9879 Pain Scale: FACES Pre/Post-Treatment Pain: FACES Scale, Pretreatment 4-->hurts little more - Posttreatment Pain Rating 4-->hurts little more - Row Name 08/30/25 7126 Plan of Care Review Plan of Care [...] 80 -MC Posttreatment Heart Rate (beats/min) 81 - Pre SpO2 (%) 98 -MC O2 Delivery Pre Treatment nasal cannula - O2 Delivery Intra Treatment nasal cannula - Post SpO2 (%) 98 -MC O2 Delivery Post Treatment nasal cannula - Pre Patient Position Supine - Intra Patient Position Standing - Post Patient Position Sitting -[facility] Name 08/30/25 1145 Positioning and Restraints Pre-Treatment Position in bed - Post Treatment Position bsc - On BS commode notified nsg;sitting;call light within reach;encouraged to call for assist;with family/caregiver - User Jung (r) = Recorded By, (t) = Taken By, (c) = Cosigned By Initials Name Provider Type Aury Gallegos, OT Occupational Therapist Outcome Measures Row Name [...] Therapist Occupational Therapy Education Title: PT OT ROLLING UP MACHINE OPERATOR Therapies (In Progress) Topic: Occupational Therapy (In [...] Description Service Date Service Provider Modifiers Qty [id number] HC OT EVAL MOD COMPLEXITY 4 08/30/2025 Aury Fitzgerald OT GO 1 Aury Fitzgerald OT 08/30/2025 * Therapy Evaluation - Flora Galvan PT - 08/30/2025 9:03 AM EST Images [...] INTRAOPERATIVE CHOLANGIOGRAM; Surgeon: Hermes Jaramillo MD; Location: [facility]; Service: General; Laterality: N/A; COLONOSCOPY HERNIA REPAIR General Information Row Name 08/30/25 5762 Physical Therapy Time and Intention Document Type evaluation -KG Mode of Treatment physical therapy -KG Row Name 08/30/25 2954 General Information Patient Profile Reviewed yes -KG Prior Level of Function independent:;all household mobility;gait;transfer;ADL's;dressing;bathing -KG Existing Precautions/Restrictions fall;oxygen therapy device and L/min;other (see comments) abdominal incision; confusion; NG -KG Barriers to Rehab medically complex;cognitive status;hearing deficit -KG Row Name 08/30/25 8537 Living Environment Current Living Arrangements home -KG [...] Bed Mobility Bed Mobility supine-sit -KG Supine-Sit [place] (Bed Mobility) moderate assist (50% patient effort);2 [...] -KG Row Name 08/30/251333 Bed-Chair Transfer Bed-Chair [place] (Transfers) maximum assist (25% patient effort);2 person assist;verbal cues -KG Assistive Device (Bed-Chair Transfers) other (see comments) B UE support -KG Row Name 08/30/25 1334 Sit-Stand Transfer Sit-Stand [place] (Transfers) moderate assist (50% patient effort);2 person assist;verbal cues-KG Assistive Device (Sit-Stand Transfers) other (see comments) B UE support -KG Row Name 08/30/25 1334 Gait/Stairs (Locomotion) [place] Level (Gait) moderate assist (50% patient effort);2 [...] Galvan PT Physical Therapist Goals/Plan Row Name 08/30/251338 Bed Mobility Goal 1 (PT) Activity/Assistive Device (Bed Mobility Goal 1, PT) sit to supine;supine to sit -KG [place] Level/Cues Needed (Bed Mobility Goal 1, PT) minimum assist (75% or more patient effort) -KG Time Frame (Bed Mobility Goal 1, PT) short term goal (STG);5 days -KG Progress/Outcomes (Bed Mobility Goal 1, PT) goal ongoing -KG Row Name 08/30/251338 Transfer Goal 1 (PT) Activity/Assistive Device (Transfer Goal 1, PT) jno-tc-tsnul/hwqmx-tn-ybc;cwz-vd-hbkih/sdgoq-bp-kfh;walker, rolling -KG [place] Level/Cues Needed (Transfer Goal 1, PT) minimum assist (75% or more patient effort) -KG Time Frame (Transfer Goal 1, PT) snf goal (LTG);10 days -KG Progress/Outcome (Transfer Goal 1, PT) goal ongoing -KG Row Name 08/30/251338 Gait Training Goal 1 (PT) Activity/Assistive Device (Gait Training Goal 1, PT) gait (walking locomotion);assistive device use;walker, rolling -KG [place] Level (Gait Training Goal 1, PT) moderate assist (50-74% patient effort) -KG Distance (Gait Training Goal 1, PT) 50 feet -KG Time Frame (Gait Training Goal 1, PT) snf goal (LTG);10 days -KG Progress/Outcome (Gait Training Goal 1, PT) goal ongoing -KG Row Name 08/30/251338 Therapy Assessment/Plan (PT) Planned Therapy Interventions (PT) balance training;bed mobility training;gait training;strengthening;transfer training -KG User Jung (r) = Recorded By, (t) = Taken By, (c) = Cosigned By Initials Name Provider Type KG Flora Galvan, PT Physical Therapist Clinical Impression Row Name 08/30/25 977 Pain Additional Documentation Pain Scale: FACES Pre/Post-Treatment (Group) -KG Row Name 08/30/251336 Pain Scale: FACES Pre/Post-Treatment Pain: FACES Scale, Pretreatment 4-->hurts little more -KG Posttreatment Pain Rating 6-->hurts even more -KG Row Name 08/30/25 488 Plan of Care Review Plan of Care Reviewed With patient -KG Outcome Evaluation PT initial evaluation completed for pt s/p cholecystectomy presenting with generalized weakness, increased SOA, impaired balance and coordination, c/o incisional pain, and decreased functional mobility. Pt required modA x2 for STS transfers and modA x2- maxA x2 to take steps frombed to chair and BSC. Pt's decreased independence warrants assistant golf coach care. Recommend D/C to IP rehab facility. -KG Row Name 08/30/25 1887 Therapy Assessment/Plan (PT) Patient/Family Therapy Goals Statement [...] Patient Position Sitting -KG Row Name 08/30/25 2717 Positioning and Restraints Pre-Treatment Position in bed -KG Post Treatment Position bsc -KG On BS commode notified nsg;sitting;call light within reach;encouraged to call for assist;with family/caregiver -KG User Jung (r) = Recorded By, (t) = Taken By, (c) = Cosigned By Initials Name Provider Type KG Flora Galvan, PT Physical Therapist Outcome Measures Row Name 08/30/25 1345 How much help from another person do [...] Therapist Physical Therapy Education Title: PT OT ROLLING UP MACHINE OPERATOR Therapies (In Progress) Topic: Physical Therapy (In [...] chair and BSC. Pt's decreased independence warrants assistant golf coach care. Recommend D/C to IP rehab facility. [...] Description Service Date Service Provider Modifiers Qty [id number] HC PT EVAL MOD COMPLEXITY 4 08/30/2025 [...] 08/29/2025 10:36 AM EST Discharge Planning Assessment [facility] Patient Name: Loc Thurman Today's Date: 08/29/2025 [...] child(aminta), adult Family Caregiver Names Sarabjit (son) [phone] Able to Return to Prior Arrangements yes [...] Discharge none Discharge Plan Row Name 08/29/25 1037 Plan Plan Ongoing Patient/Family in Agreement with Plan yes Plan Comments Spoke with son at bedside. Lives alone in [facility]. Contact is Sarabjit (son) [phone]. Is independent with ADL's. No problems affording Medicare/[place] or medications. Uses [facility]. No [...] Reason for Consult discharge planning Preferred Language Yemeni Contact Information Permission Granted to Share Info With piano case makeradvertising account manager Information Obtained for piano case makerhousing assistant property manager Status Row Name 08/29/25 1032 Functional [...] Description 10/05/2025 8:30 AM EST Office Visit [facility] GENERAL SURGERY [address] [facility] [address] [place] [address] Hermes Jaramillo MD [address] [facility] [address] [place], [place] [id number] documented as of this encounter Procedures Procedure [...] GLUCOSE FINGERSTICK Routine 08/31/2025 1:02 PM EST ROLLING UP MACHINE OPERATOR FEES FIBEROPTIC ENDO EVAL SWALLOW Routine 08/31/2025 [...] AM EST POCT SURGERY LABS Routine 08/28/2025 8: 43 AM EST TISSUE PATHOLOGY EXAM Routine 08/28/2025 8:40 AM EST Cholecystitis MI LAPS SURG CHOLECYSTECTOMY W/CHOLANGIOGRAPHY 08/28/2025 7:40 AM [...] pancreatitis, unspecified complication status, unspecified pancreatitis type MI ARTL CATHJ/CANNULJ MNTR/TRANSFUSION SPX PRQ Routine 08/28/2025 5:20 AM EST Acute pancreatitis, unspecified complication status, unspecified pancreatitis type HC CENTRAL LINE INSERTION Routine 08/28/2025 5:19 AM EST Acute pancreatitis, unspecified complication status, unspecified pancreatitis type MI INSJ NON-TUNNELED CENTRAL VENOUS CATH AGE 3 [...] MD 09/05/2025 4:23 PM EST Workstation ID: [id number] Narrative 09/05/2025 4:23 PM EST FL VIDEO [...] MD 09/05/2025 4:23 PM EST Workstation ID: [id number] Flora Baig MD IMG FLUOROSCOP Y ORDERABLES Final Result * Magnesium (09/05/2025 4:35 AM EST) Pathologist [facility] Magnesium 2.4 1.6 - 2.4 mg/dL 09/05/2025 5:28 AM EST [facility] Blood Venipuncture / Unknown 09/05/2025 4:35 AM EST 09/05/2025 4:56 AM EST Flora Baig MD LAB BLOOD ORDE RABLES Final Result [facility]
[address] [place] [address], * (ABNORMAL) CBC (No Diff) (09/05/2025 4:35 AM EST) Pathologist [facility] WBC 11.96(H) 3.40 - 10.80 10*3/mm3 09/05/2025 5:14 AM EST [facility] RBC 3.00(L) 4.14 - 5.80 10*6/mm3 09/05/2025 5:14 AM EST [facility] Hemoglobin 9.1(L) 13.0 - 17.7 g/dL 09/05/2025 5:14 AM EST [facility] Hematocrit 29.2(L) 37.5 - 51.0 % 09/05/2025 5:14 AM EST [facility] MCV 97.3(H) 79.0 - 97.0 fL 09/05/2025 5:14 AM EST [facility] MCH 30.3 26.6 - 33.0 pg 09/05/2025 5:14 AM EST [facility] MCHC 31.2(L) 31.5 - 35.7 g/dL 09/05/2025 5:14 AM EST [facility] RDW 14.9 12.3 - 15.4 % 09/05/2025 5:14 AM EST [facility] RDW-SD 52.1 37.0 - 54.0 fl 09/05/2025 5:14 AM [facility] MPV 10.9 6.0 - 12.0 fL 09/05/2025 5:14 AM EST [facility] Platelets 191 140 - 450 10*3/mm3 09/05/2025 5:14 AM [facility] Blood Venipuncture / Unknown 09/05/2025 4:35 AM EST 09/05/2025 4:59 AM EST us Flora Baig MD LAB BLOOD VIPIN ROGERS Final Result [facility]
[address] [place] [address], * (ABNORMAL) Basic Metabolic Panel (09/05/2025 4:35 AM EST) Glucose 110(H) 65 - 99 mg/dL 09/05/2025 5:28 AM EST [facility] BUN 18.5 8.0 - 23.0 mg/dL 09/05/2025 5:28 AM EST [facility] Creatinine 0.72(L) 0.76 - 1.27 mg/dL 09/05/2025 5:28 AM EST [facility] Sodium 146(H) 136 - 145 mmol/L 09/05/2025 5:28 AM EST [facility] Potassium 4.0 3.5 - 5.2 mmol/L 09/05/2025 5:28 AM EST [facility] Chloride 115(H) 98 - 107 mmol/L 09/05/2025 5:28 AM EST [facility] CO2 24.0 22.0 - 29.0 mmol/L 09/05/2025 5:28 AM EST [facility] Calcium 7.7(L) 8.6 - 10.5 mg/dL 09/05/2025 5:28 AM EST [facility] BUN/Creatinine Ratio 25.7(H) 7.0 - 25.0 09/05/2025 5:28 AM EST [facility] Anion Gap 7.0 5.0 - 15.0 mmol/L 09/05/2025 5:28 AM EST [facility] eGFR 89.0 >60.0 mL/min/1.7 3 09/05/2025 5:28 AM EST [facility] Blood Venipuncture / Unknown 09/05/2025 4:35 AM EST 09/05/2025 4:56 AM EST [facility] - 09/05/2025 5:28 AM EST [...] MD LAB BLOOD VIPIN ROGERS Final Result [facility]
[address] [place] [address], * Potassium (09/04/2025 5:30 PM EST) Potassium 4.3 3.5 - 5.2 mmol/L 09/04/2025 6:36 PM EST [facility] Blood Venipuncture / Unknown 09/04/2025 5:30 PM EST 09/04/2025 5:57 PM EST Flora Baig MD LAB BLOOD ORDE RABLES Final Result Performing Organization Address City/[facility] [[email or web address]] Co de Phone Number [facility]
[address] [place] [address], * POC Glucose Once (09/04/2025 4:35 PM EST) Glucose 122 70 - 130 mg/dL 09/04/2025 4:44 PM EST [facility] Comment:Serial Number: [id number]: [id number] Blood 09/04/2025 4:35 PM EST 09/04/2025 4:44 PM EST Flora Baig MD POINT OF CARE TEST ORDERABLES Final Result Performing Organization Address [facility] Phone Number [facility]
[address] [place] [address], * POC Glucose Once (09/04/2025 11:54 AM EST) Glucose 117 70 - 130 mg/dL 09/04/2025 11:57 AM EST [facility] Comment:Serial Number: [id number] Blood 09/04/2025 11:5 4 AM EST 09/04/2025 11:57 AM EST Flora Baig MD POINT OF CARE TEST ORDERABLES Final Result Performing Organization Address City/[facility] [[email or web address]] Co de Phone Number [facility]
[address] [place] [address], * POC Glucose Once (09/04/2025 8:04 AM EST) Pathologist [facility] Glucose 118 70 - 130 mg/dL 09/04/2025 8:09 AM EST [facility] Comment:Serial Number: [id number]: [id number] Blood 09/04/2025 8:04 AM EST 09/04/2025 8:09 AM EST Flora Baig MD POINT OF CARE TEST ORDERABLES Final Result [facility]
[address] [place] [address], * (ABNORMAL) Phosphorus (09/04/2025 5:18 AM EST) [facility] Phosphorus 2.4(L) 2.5 - 4.5 mg/dL 09/04/2025 6:13 AM EST [facility] Blood Venipuncture / Unknown 09/04/2025 5:18 AM EST 09/04/2025 5:51 AM EST Flora Baig MD LAB BLOOD ORDE RABLES Final Result Performing Organization Address City/[facility]/ZIP Co de Phone Number [facility]
[address] [place] [address], * (ABNORMAL) CBC (No Diff) (09/04/2025 5:18 AM EST) Pathologist [facility] WBC 12.52(H) 3.40 - 10.80 10*3/mm3 09/04/2025 5:55 AM EST [facility] RBC 3.27(L) 4.14 - 5.80 10*6/mm3 09/04/2025 5:55 AM EST [facility] Hemoglobin 9.5(L) 13.0 - 17.7 g/dL 09/04/2025 5:55 AM EST [facility] Hematocrit 30.9(L) 37.5 - 51.0 % 09/04/2025 5:55 AM EST [facility] MCV 94.5 79.0 - 97.0 fL 09/04/2025 5:55 AM EST [facility] MCH 29.1 26.6 - 33.0 pg 09/04/2025 5:55 AM EST [facility] MCHC 30.7(L) 31.5 - 35.7 g/dL 09/04/2025 5:55 AM EST [facility] RDW 14.6 12.3 - 15.4 % 09/04/2025 5:55 AM [facility] RDW-SD 50.4 37.0 - 54.0 fl 09/04/2025 5:55 AM EST [facility] MPV 11.0 6.0 - 12.0 fL 09/04/2025 5:55 AM EST [facility] Platelets 162 140 - 450 10*3/mm3 09/04/2025 5:55 AM [facility] Blood Venipuncture / Unknown 09/04/2025 5:18 AM EST 09/04/2025 5:52 AM EST Flora Baig MD LAB BLOOD VIPIN ROGERS Final Result [facility]
[address] [place] [address], * (ABNORMAL) Basic Metabolic Panel (09/04/2025 5:18 AM EST) Glucose 122(H) 65 - 99 mg/dL 09/04/2025 6:13 AM [facility] BUN 21.0 8.0 - 23.0 mg/dL 09/04/2025 6:13 AM EST [facility] Creatinine 0.71(L) 0.76 - 1.27 mg/dL 09/04/2025 6:13 AM EST [facility] Sodium 145 136 - 145 mmol/L 09/04/2025 6:13 AM EST [facility] Potassium 3.5 3.5 - 5.2 mmol/L 09/04/2025 6:13 AM EST [facility] Chloride 113(H) 98 - 107 mmol/L 09/04/2025 6:13 AM EST [facility] CO2 25.0 22.0 - 29.0 mmol/L 09/04/2025 6:13 AM EST [facility] Calcium 7.9(L) 8.6 - 10.5 mg/dL 09/04/2025 6:13 AM [facility] BUN/Creatinine Ratio 29.6(H) 7.0 - 25.0 09/04/2025 6:13 AM [facility] Anion Gap 7.0 5.0 - 15.0 mmol/L 09/04/2025 6:13 AM [facility] eGFR 89.4 >60.0 mL/min/1.7 3 09/04/2025 6:13 AM [facility] Blood Venipuncture / Unknown 09/04/2025 5:18 AM EST 09/04/2025 5:51 AM EST [facility] - 09/04/2025 6:13 AM [...] factor us Flora Baig MD LAB BLOOD ORDNy ROGERS Final Result [facility]
[address] [place] [address], * Magnesium (09/04/2025 5:18 AM EST) Magnesium 2.3 1.6 - 2.4 mg/dL 09/04/2025 6:13 AM EST [facility] Blood Venipuncture / Unknown 09/04/2025 5:18 AM EST 09/04/2025 5:51 AM EST Brian Hughes MD LAB BLOOD ORDERABLES Final R esult Performing Organization Address City/[facility]/ZIP Co de Phone Number [facility]
[address] [place] [address], * (ABNORMAL) POC Glucose Once (09/03/2025 7:51 PM EST) Glucose 141(H) 70 - 130 mg/dL 09/03/2025 7:56 PM EST [facility] Comment:Serial Number: [id number] Blood 09/03/2025 7:51 PM EST 09/03/2025 7:56 PM EST Flora Baig MD POINT OF CARE TEST ORDERABLES Final Result Performing Organization Address City/[facility] [[email or web address]] Co de Phone Number [facility]
[address] [place] [address], * (ABNORMAL) POC Glucose Once (09/03/2025 4:09 PM EST) Glucose 155(H) 70 - 130 mg/dL 09/03/2025 4:11 PM EST [facility] Comment:Serial Number: [id number] Blood 09/03/2025 4:09 PM EST 09/03/2025 4:11 PM EST Flora Baig MD POINT OF CARE TEST ORDERABLES Final Result [facility]
[address] [place] [address], * Scan Slide (09/03/2025 1:57 PM EST) Pathologist [facility] RBC Morphology Normal Normal 09/03/2025 3:20 PM EST [facility] WBC Morphology Normal Normal 09/03/2025 3:20 PM EST [facility] Platelet Estimate Adequate Normal 09/03/2025 3:20 PM EST [facility] Blood Venipuncture / Unknown 09/03/2025 1:57 PM EST 09/03/2025 2:09 PM EST Lizbeth Myers APRN LAB BLOOD ORDERABLES Final Result Performing Organization Address [facility]/ZIP Co de Phone Number [facility]
[address] [place] [address], * Potassium (09/03/2025 1:57 PM EST) [facility] Potassium 4.4 3.5 - 5.2 mmol/L 09/03/2025 2:27 PM EST [facility] Blood Venipuncture / Unknown 09/03/2025 1:57 PM EST 09/03/2025 2:09 PM EST Flora Baig MD LAB BLOOD ORDE RABLES Final Result [facility]
[address] [place] [address], * (ABNORMAL) CBC Auto Differential (09/03/2025 1:57 PM EST) Pathologist [facility] WBC 10.70 3.40 - 10.80 10*3/mm3 09/03/2025 3:20 PM EST [facility] RBC 3.19(L) 4.14 - 5.80 10*6/mm3 09/03/2025 3:20 PM [facility] Hemoglobin 9.3(L) 13.0 - 17.7 g/dL 09/03/2025 3:20 PM [facility] Hematocrit 30.4(L) 37.5 - 51.0 % 09/03/2025 3:20 PM [facility] MCV 95.3 79.0 - 97.0 fL 09/03/2025 3:20 PM [facility] MCH 29.2 26.6 - 33.0 pg 09/03/2025 3:20 PM [facility] MCHC 30.6(L) 31.5 - 35.7 g/dL 09/03/2025 3:20 PM [facility] RDW 14.6 12.3 - 15.4 % 09/03/2025 3:20 PM [facility] RDW-SD 51.0 37.0 - 54.0 fl 09/03/2025 3:20 PM [facility] MPV 10.9 6.0 - 12.0 fL 09/03/2025 3:20 PM [facility] Platelets 140 140 - 450 10*3/mm3 09/03/2025 3:20 PM [facility] Neutrophil % 68.1 42.7 - 76.0 % 09/03/2025 3:20 PM [facility] Lymphocyte % 18.1(L) 19.6 - 45.3 % 09/03/2025 3:20 PM [facility] Monocyte % 7.6 5.0 - 12.0 % 09/03/2025 3:20 PM [facility] Eosinophil % 1.3 0.3 - 6.2 % 09/03/2025 3:20 PM [facility] Basophil % 0.3 0.0 - 1.5 % 09/03/2025 3:20 PM [facility] Immature Grans % 4.6(H) 0.0 - 0.5 % 09/03/2025 3:20 PM EST [facility] Neutrophils, Absolute 7.29(H) 1.70 - 7.00 10*3/mm3 09/03/2025 3:20 PM EST [facility] Lymphocytes, Absolute 1.94 0.70 - 3.10 10*3/mm3 09/03/2025 3:20 PM EST [facility] Monocytes, Absolute 0.81 0.10 - 0.90 10*3/mm3 09/03/2025 3:20 PM EST [facility] Eosinophils, Absolute 0.14 0.00 - 0.40 10*3/mm3 09/03/2025 3:20 PM EST [facility] Basophils, Absolute 0.03 0.00 - 0.20 10*3/mm3 09/03/2025 3:20 PM EST [facility] Immature Grans, Absolute 0.49(H) 0.00 - 0.05 10*3/mm3 09/03/2025 3:20 PM EST [facility] nRBC 0.4(H) 0.0 - 0.2 /100 WBC 09/03/2025 3:20 PM EST [facility] Blood Venipuncture / Unknown 09/03/2025 1:57 PM EST 09/03/2025 2:09 PM EST Narrative [facility] - 09/03/2025 3:20 PM EST Appended report. These results have been appended to a previously verified report. Lizbeth Myers APRN LAB BLOOD ORDERABLES Final Result [facility]
[address] [place] [address], * POC Glucose Once (09/03/2025 11:47 AM EST) [facility] Glucose 125 70 - 130 mg/dL 09/03/2025 11:49 AM EST [facility] Comment:Serial Number: [id number]: [id number] Blood 09/03/2025 11:4 7 AM EST 09/03/2025 11:49 AM EST Flora Baig MD POINT OF CARE TEST ORDERABLES Final Result Performing Organization Address City/[facility] [[email or web address]] Co de Phone Number [facility]
[address] [place] [address], * POC Glucose Once (09/03/2025 7:25 AM EST) Glucose 92 70 - 130 mg/dL 09/03/2025 7:27 AM EST [facility] Comment:Serial Number: [id number]: [id number] Blood 09/03/2025 7:25 AM EST 09/03/2025 7:27 AM EST Flora Baig MD POINT OF CARE TEST ORDERABLES Final Result Performing Organization Address City/[facility] [[email or web address]] Co de Phone Number [facility]
[address] [place] [address], * (ABNORMAL) Basic Metabolic Panel (09/03/2025 3:43 AM EST) Glucose 108(H) 65 - 99 mg/dL 09/03/2025 4:37 AM EST [facility] BUN 23.0 8.0 - 23.0 mg/dL 09/03/2025 4:37 AM EST [facility] Creatinine 0.76 0.76 - 1.27 mg/dL 09/03/2025 4:37 AM EST [facility] Sodium 149(H) 136 - 145 mmol/L 09/03/2025 4:37 AM EST [facility] Potassium 3.5 3.5 - 5.2 mmol/L 09/03/2025 4:37 AM EST [facility] Comment:Specimen hemolyzed. Result may be falsely elevated. Chloride 114(H) 98 - 107 mmol/L 09/03/2025 4:37 AM EST [facility] CO2 23.6 22.0 - 29.0 mmol/L 09/03/2025 4:37 AM EST [facility] Calcium 7.8(L) 8.6 - 10.5 mg/dL 09/03/2025 4:37 AM EST [facility] BUN/Creatinine Ratio 30.3(H) 7.0 - 25.0 09/03/2025 4:37 AM EST [facility] Anion Gap 11.4 5.0 - 15.0 mmol/L 09/03/2025 4:37 AM EST [facility] eGFR 87.5 >60.0 mL/min/1.7 3 09/03/2025 4:37 AM EST [facility] Blood Venipuncture / Unknown 09/03/2025 3:43 AM EST 09/03/2025 4:08 AM EST [facility] - 09/03/2025 4:37 AM EST [...] Myers APRN LAB BLOOD ORDERABLES Final Result [facility]
[address] [place] [address], * Magnesium (09/03/2025 3:43 AM EST) Magnesium 2.2 1.6 - 2.4 mg/dL 09/03/2025 4:37 AM EST [facility] Blood Venipuncture / Unknown 09/03/2025 3:43 AM EST 09/03/2025 4:08 AM EST Brian Hughes MD LAB BLOOD ORDERABLES Final R esult [facility]
[address] [place] [address], * (ABNORMAL) POC Glucose Once (09/02/2025 8:03 PM EST) [facility] Glucose 141(H) 70 - 130 mg/dL 09/02/2025 8:05 PM EST [facility] Comment:Serial Number: [id number]: [id number] Blood 09/02/2025 8:03 PM EST 09/02/2025 8:05 PM EST Flora Baig MD POINT OF CARE TEST ORDERABLES Final Result [facility]
[address] [place] [address], [place] [phone] * ECHO COMPLETE W/ DOPPLER, COLOR FLOW AND CONTRAST (09/02/2025 6:08 PM EST) [facility] EF(MOD-bp) 67.2 % LVIDd 3.1 cm [...] POC Glucose Once (09/02/2025 4:54 PM EST) Pathologist [facility] Glucose 123 70 - 130 mg/dL 09/02/2025 4:56 PM EST [facility] Comment:Serial Number: [id number]: [id number] Blood 09/02/2025 4:54 PM EST 09/02/2025 4:56 PM EST Flora Baig MD POINT OF CARE TEST ORDERABLES Final Result Performing Organization Address [facility] [[email or web address]] Co de Phone Number [facility]
[address] [place] [address], * Lactic Acid, Plasma (09/02/2025 3:43 PM EST) [facility] Lactate 1.5 0.5 - 2.0 mmol/L 09/02/2025 4:30 PM EST [facility] Comment:Falsely depressed re sults may occur on samples drawn from patients receiving N-Acetylcysteine (NAC) or Metamizole. Blood Venipuncture / Unknown 09/02/2025 3:43 PM EST 09/02/2025 3:53 PM EST Lizbeth Myers APRN LAB BLOOD ORDERABLES Final Result Performing Organization Address City/[facility]/ZIP Co de Phone Number [facility]
[address] [place] [address], * (ABNORMAL) Manual Differential (09/02/2025 2:36 PM EST) [facility] Neutrophil % 83.0(H) 42.7 - 76.0 % 09/02/2025 4:01 PM EST [facility] Lymphocyte % 5.0(L) 19.6 - 45.3 % 09/02/2025 4:01 PM EST [facility] Monocyte % 3.0(L) 5.0 - 12.0 % 09/02/2025 4:01 PM [facility] Eosinophil % 0.0(L) 0.3 - 6.2 % 09/02/2025 4:01 PM [facility] Basophil % 0.0 0.0 - 1.5 % 09/02/2025 4:01 PM [facility] Bands % 4.0 0.0 - 5.0 % 09/02/2025 4:01 PM [facility] Metamyelocyte % 1.0(H) 0.0 - 0.0 % 09/02/2025 4:01 PM [facility] Myelocyte % 1.0(H) 0.0 - 0.0 % 09/02/2025 4:01 PM [facility] Atypical Lymphocyte % 3.0 0.0 - 5.0 % 09/02/2025 4:01 PM [facility] Neutrophils Absolute 9.65(H) 1.70 - 7.00 10*3/mm3 09/02/2025 4:01 PM [facility] Lymphocytes Absolute 0.89 0.70 - 3.10 10*3/mm3 09/02/2025 4:01 PM [facility] Monocytes Absolute 0.33 0.10 - 0.90 10*3/mm3 09/02/2025 4:01 PM [facility] Eosinophils Absolute 0.00 0.00 - 0.40 10*3/mm3 09/02/2025 4:01 PM [facility] Basophils Absolute 0.00 0.00 - 0.20 10*3/mm3 09/02/2025 4:01 PM [facility] RBC Morphology Normal Normal 09/02/2025 4:01 PM [facility] WBC Morphology Normal Normal 09/02/2025 4:01 PM [facility] Platelet Morphology Normal Normal 09/02/2025 4:01 PM [facility] Blood Venipuncture / Unknown 09/02/2025 2:36 PM EST 09/02/2025 2:47 PM EST Lizbeth Myers STEREOTYPER APPRENTICE LAB BLOOD ORDERABLES Final Result [facility]
[address] [place] [address], * (ABNORMAL) CBC Auto Differential (09/02/2025 2:36 PM EST) WBC 11.09(H) 3.40 - 10.80 10*3/mm3 09/02/2025 4:01 PM EST [facility] RBC 3.34(L) 4.14 - 5.80 10*6/mm3 09/02/2025 4:01 PM EST [facility] Hemoglobin 9.8(L) 13.0 - 17.7 g/dL 09/02/2025 4:01 PM EST [facility] Hematocrit 31.2(L) 37.5 - 51.0 % 09/02/2025 4:01 PM EST [facility] MCV 93.4 79.0 - 97.0 fL 09/02/2025 4:01 PM EST [facility] MCH 29.3 26.6 - 33.0 pg 09/02/2025 4:01 PM EST [facility] MCHC 31.4(L) 31.5 - 35.7 g/dL 09/02/2025 4:01 PM EST [facility] RDW 14.5 12.3 - 15.4 % 09/02/2025 4:01 PM EST [facility] RDW-SD 49.8 37.0 - 54.0 fl 09/02/2025 4:01 PM [facility] MPV 11.0 6.0 - 12.0 fL 09/02/2025 4:01 PM EST [facility] Platelets 102(L) 140 - 450 10*3/mm3 09/02/2025 4:01 PM EST [facility] Blood Venipuncture / Unknown 09/02/2025 2:36 PM EST 09/02/2025 2:47 PM EST Narrative [facility] - 09/02/2025 4:01 PM EST The previously reported component NRBC is no longer being reported. Previous result was 0.5 /100 WBC (Reference Range: 0.0-0.2 /100 WBC) on 09/02/2025 at 1459 EST. Lizbeth Myers STEREOTYPER APPRENTICE LAB BLOOD ORDERABLES Final Result [facility]
[address] [place] [address], * (ABNORMAL) Procalcitonin (09/02/2025 2:36 PM EST) Procalcitonin 4.27(H) 0.00 - 0.25 ng/mL 09/02/2025 3:24 PM EST [facility] Blood Venipuncture / Unknown 09/02/2025 2:36 PM EST 09/02/2025 2:47 PM EST Narrative [facility] - 09/02/2025 3:24 PM EST [...] Day 4 values are available. Refer to [email or web address] Change in PCT <=80% A decrease of [...] BLOOD ORDERABLES Final Result Performing Organization Address [facility] [[email or web address]] Co de Phone Number [facility]
[address] [place] [address], * (ABNORMAL) proBNP (09/02/2025 2:36 PM EST) proBNP 9,267.0(H) 0.0 - 1,800.0 pg/mL 09/02/2025 3:24 PM EST [facility] Blood Venipuncture / Unknown 09/02/2025 2:36 PM EST 09/02/2025 2:47 PM EST [facility] - 09/02/2025 3:24 PM EST This [...] >75 Positive >1800 Padron 300-1800 Negative <300 us Lizbeth Myers APRN LAB BLOOD ORDERABLES Final Result Performing Organization Address [facility] [[email or web address]] Co de Phone Number [facility]
[address] [place] [address], * POC Glucose Once (09/02/2025 12:24 PM EST) Glucose 124 70 - 130 mg/dL 09/02/2025 12:27 PM EST [facility] Comment:Serial Number: [id number]: [id number] Blood 09/02/2025 12:2 4 PM EST 09/02/2025 12:27 PM EST Flora Baig MD POINT OF CARE TEST ORDERABLES Final Result [facility]
[address] [place] [address], * XR Chest 1 View (09/02/2025 11:37 [...] MD 09/02/2025 12:03 PM EST Workstation ID: [id number] Narrative 09/02/2025 12:03 PM EST XR CHEST [...] AP chest x-ray 08/29/2025, 08/28/2025; CT abdomen [id number] Findings: Lower chest is not entirely included. [...] MD 09/02/2025 12:03 PM EST Workstation ID: [id number] us Lizbeth Myers STEREOTYPER APPRENTICE IMG DIAGNOSTIC IMAGING ORDE KEN Final Result * FL Video Swallow With [...] MD 09/02/2025 12:12 PM EST Workstation ID: [id number] Narrative 09/02/2025 12:12 PM EST [place] VIDEO [...] MD 09/02/2025 12:12 PM EST Workstation ID: [id number] Flora Baig MD IMG FLUOROSCOP Y ORDERABLES Final Result * POC Glucose Once (09/02/2025 7:44 AM EST) Glucose 97 70 - 130 mg/dL 09/02/2025 8:08 AM EST [facility] Comment:Serial Number: [id number] Blood 09/02/2025 7:44 AM EST 09/02/2025 8:08 AM EST Flora Baig MD POINT OF CARE TEST ORDERABLES Final Result [facility]
[address] [place] [address], * Phosphorus (09/02/2025 5:43 AM EST) Phosphorus 2.5 2.5 - 4.5 mg/dL 09/02/2025 6:50 AM EST [facility] Blood Venipuncture / Unknown 09/02/2025 5:43 AM EST 09/02/2025 6:09 AM EST Flora Baig MD LAB BLOOD ORDE RABLES Final Result [facility]
[address] [place] [address], * (ABNORMAL) Comprehensive Metabolic Panel (09/02/2025 5:43 AM EST) [facility] Glucose 99 65 - 99 mg/dL 09/02/2025 6:55 AM EST [facility] BUN 22.7 8.0 - 23.0 mg/dL 09/02/2025 6:55 AM EST [facility] Creatinine 0.69(L) 0.76 - 1.27 mg/dL 09/02/2025 6:55 AM [facility] Sodium 148(H) 136 - 145 mmol/L 09/02/2025 6:55 AM EST [facility] Potassium 3.7 3.5 - 5.2 mmol/L 09/02/2025 6:55 AM [facility] Chloride 116(H) 98 - 107 mmol/L 09/02/2025 6:55 AM EST [facility] CO2 22.5 22.0 - 29.0 mmol/L 09/02/2025 6:55 AM [facility] Calcium 8.2(L) 8.6 - 10.5 mg/dL 09/02/2025 6:55 AM EST [facility] Total Protein 5.5(L) 6.0 - 8.5 g/dL 09/02/2025 6:55 AM EST [facility] Albumin 3.1(L) 3.5 - 5.2 g/dL 09/02/2025 6:55 AM [facility] ALT (SGPT) 81(H) 1 - 41 U/L 09/02/2025 6:55 AM EST [facility] AST (SGOT) 42(H) 1 - 40 U/L 09/02/2025 6:55 AM EST [facility] Alkaline Phosphatase 171(H) 39 - 117 U/L 09/02/2025 6:55 AM [facility] Total Bilirubin 0.8 0.0 - 1.2 mg/dL 09/02/2025 6:55 AM EST [facility] Globulin 2.4 gm/dL 09/02/2025 6:55 AM EST [facility] Comment:Calculated Result A/G Ratio 1.3 g/dL 09/02/2025 6:55 AM EST [facility] BUN/Creatinine Ratio 32.9(H) 7.0 - 25.0 09/02/2025 6:55 AM EST [facility] Anion Gap 9.5 5.0 - 15.0 mmol/L 09/02/2025 6:55 AM EST [facility] eGFR 90.1 >60.0 mL/min/1.7 3 09/02/2025 6:55 AM EST [facility] Blood Venipuncture / Unknown 09/02/2025 5:43 AM EST 09/02/2025 6:09 AM EST [facility] - 09/02/2025 6:55 AM [...] MD LAB BLOOD ORDERABLES Final Re sult [facility]
[address] [place] [address], * (ABNORMAL) CBC (No Diff) (09/02/2025 5:43 AM EST) WBC 10.84(H) 3.40 - 10.80 10*3/mm3 09/02/2025 6:25 AM EST [facility] RBC 3.22(L) 4.14 - 5.80 10*6/mm3 09/02/2025 6:25 AM [facility] Hemoglobin 9.6(L) 13.0 - 17.7 g/dL 09/02/2025 6:25 AM [facility] Hematocrit 30.8(L) 37.5 - 51.0 % 09/02/2025 6:25 AM EST [facility] MCV 95.7 79.0 - 97.0 fL 09/02/2025 6:25 AM EST [facility] MCH 29.8 26.6 - 33.0 pg 09/02/2025 6:25 AM [facility] MCHC 31.2(L) 31.5 - 35.7 g/dL 09/02/2025 6:25 AM [facility] RDW 14.2 12.3 - 15.4 % 09/02/2025 6:25 AM [facility] RDW-SD 50.4 37.0 - 54.0 fl 09/02/2025 6:25 AM [facility] MPV 10.4 6.0 - 12.0 fL 09/02/2025 6:25 AM [facility] Platelets 94(L) 140 - 450 10*3/mm3 09/02/2025 6:25 AM [facility] Blood Venipuncture / Unknown 09/02/2025 5:43 AM EST 09/02/2025 6:08 AM EST Hermes Jaramillo MD LAB BLOOD ORDERABLES Final Re sult [facility]
[address] [place] [address], * Magnesium (09/02/2025 5:43 AM EST) Magnesium 2.4 1.6 - 2.4 mg/dL 09/02/2025 6:55 AM EST [facility] Blood Venipuncture / Unknown 09/02/2025 5:43 AM EST 09/02/2025 6:09 AM EST Brian Hughes MD LAB BLOOD ORDERABLES Final R esult Performing Organization Address [facility] [[email or web address]] Co de Phone Number [facility]
[address] [place] [address], * (ABNORMAL) POC Glucose Once (09/01/2025 7:57 PM EST) Glucose 139(H) 70 - 130 mg/dL 09/01/2025 8:03 PM EST [facility] Comment:Serial Number: [id number]: [id number] Blood 09/01/2025 7:57 PM EST 09/01/2025 8:03 PM EST Flora Baig MD POINT OF CARE TEST ORDERABLES Final Result Performing Organization Address [facility] de Phone Number [facility]
[address] [place] [address], * (ABNORMAL) POC Glucose Once (09/01/2025 5:34 PM EST) Glucose 132(H) 70 - 130 mg/dL 09/01/2025 5:36 PM EST [facility] Comment:Serial Number: [id number] Blood 09/01/2025 5:34 PM EST 09/01/2025 5:36 PM EST Flora Baig MD POINT OF CARE TEST ORDERABLES Final Result Performing Organization Address [facility] de Phone Number [facility]
[address] [place] [address], * (ABNORMAL) Phosphorus (09/01/2025 5:05 PM EST) Phosphorus 2.1(L) 2.5 - 4.5 mg/dL 09/01/2025 6:08 PM EST [facility] Blood Venipuncture / Unknown 09/01/2025 5:05 PM EST 09/01/2025 5:45 PM EST Flora Baig MD LAB BLOOD ORDE RABLES Final Result Performing Organization Address City/[facility]/ZIP Co de Phone Number [facility]
[address] [place] [address], * Potassium (09/01/2025 5:05 PM EST) Potassium 4.0 3.5 - 5.2 mmol/L 09/01/2025 6:08 PM EST [facility] Blood Venipuncture / Unknown 09/01/2025 5:05 PM EST 09/01/2025 5:45 PM EST Flora Baig MD LAB BLOOD ORDE RABLES Final Result Performing Organization Address [facility] de Phone Number [facility]
[address] [place] [address], * POC Glucose Once (09/01/2025 11:39 AM EST) Glucose 109 70 - 130 mg/dL 09/01/2025 11:41 AM EST [facility] Comment:Serial Number: [id number]: [id number] Blood 09/01/2025 11:3 9 AM EST 09/01/2025 11:41 AM EST Flora Baig MD POINT OF CARE TEST ORDERABLES Final Result Performing Organization Address City/[facility] [[email or web address]] Co de Phone Number [facility]
[address] [place] [address], * POC Glucose Once (09/01/2025 5:31 AM EST) Glucose 111 70 - 130 mg/dL 09/01/2025 5:33 AM EST [facility] Comment:Serial Number: [id number] Blood 09/01/2025 5:31 AM EST 09/01/2025 5:33 AM EST Flora Baig MD POINT OF CARE TEST ORDERABLES Final Result [facility]
[address] [place] [address], * (ABNORMAL) Hepatic Function Panel (09/01/2025 4:01 AM EST) Pathologist [facility] Total Protein 5.0(L) 6.0 - 8.5 g/dL 09/01/2025 4:48 AM EST [facility] Albumin 3.0(L) 3.5 - 5.2 g/dL 09/01/2025 4:48 AM EST [facility] ALT (SGPT) 98(H) 1 - 41 U/L 09/01/2025 4:48 AM EST [facility] AST (SGOT) 38 1 - 40 U/L 09/01/2025 4:48 AM EST [facility] Alkaline Phosphatase 108 39 - 117 U/L 09/01/2025 4:48 AM EST [facility] Total Bilirubin 0.6 0.0 - 1.2 mg/dL 09/01/2025 4:48 AM EST [facility] Bilirubin, Direct 0.5(H) 0.0 - 0.3 mg/dL 09/01/2025 4:48 AM EST [facility] Bilirubin, Indirect 0.1 mg/dL 09/01/2025 4:48 AM EST [facility] Blood Venipuncture / Unknown 09/01/2025 4:01 AM EST 09/01/2025 4:15 AM EST us Brian Hughes MD LAB BLOOD ORDERABLES Final R esult [facility]
[address] [place] [address], * (ABNORMAL) Basic Metabolic Panel (09/01/2025 4:01 AM EST) Glucose 108(H) 65 - 99 mg/dL 09/01/2025 4:48 AM EST [facility] BUN 27.2(H) 8.0 - 23.0 mg/dL 09/01/2025 4:48 AM EST [facility] Creatinine 0.75(L) 0.76 - 1.27 mg/dL 09/01/2025 4:48 AM EST [facility] Sodium 148(H) 136 - 145 mmol/L 09/01/2025 4:48 AM EST [facility] Potassium 3.6 3.5 - 5.2 mmol/L 09/01/2025 4:48 AM EST [facility] Chloride 113(H) 98 - 107 mmol/L 09/01/2025 4:48 AM EST [facility] CO2 26.8 22.0 - 29.0 mmol/L 09/01/2025 4:48 AM EST [facility] Calcium 7.7(L) 8.6 - 10.5 mg/dL 09/01/2025 4:48 AM EST [facility] BUN/Creatinine Ratio 36.3(H) 7.0 - 25.0 09/01/2025 4:48 AM EST [facility] Anion Gap 8.2 5.0 - 15.0 mmol/L 09/01/2025 4:48 AM EST [facility] eGFR 87.9 >60.0 mL/min/1.7 3 09/01/2025 4:48 AM [facility] Blood Venipuncture / Unknown 09/01/2025 4:01 AM EST 09/01/2025 4:15 AM EST Narrative [facility] - 09/01/2025 4:48 AM EST [...] ORDERABLES Final R esult Performing Organization Address City/[facility]/ZIP Co de Phone Number [facility]
[address] [place] [address], * (ABNORMAL) Phosphorus (09/01/2025 4:01 AM EST) Phosphorus 2.0(L) 2.5 - 4.5 mg/dL 09/01/2025 4:48 AM EST [facility] Blood Venipuncture / Unknown 09/01/2025 4:01 AM EST 09/01/2025 4:15 AM EST us Brian Hughes MD LAB BLOOD ORDERABLES Final R esult [facility]
[address] [place] [address], * (ABNORMAL) Magnesium (09/01/2025 4:01 AM EST) Magnesium 2.5(H) 1.6 - 2.4 mg/dL 09/01/2025 4:48 AM EST [facility] Blood Venipuncture / Unknown 09/01/2025 4:01 AM EST 09/01/2025 4:15 AM EST us Brian Hughes MD LAB BLOOD ORDERABLES Final R esult Performing Organization Address [facility] de Phone Number [facility]
[address] [place] [address], * POC Glucose Once (08/31/2025 11:55 PM EST) Glucose 104 70 - 130 mg/dL 08/31/2025 11:57 PM EST [facility] Comment:Serial Number: [id number]: [id number] Blood 08/31/2025 11:5 5 PM EST 08/31/2025 11:57 PM EST Cristian Mckee DO POINT OF CARE TEST ORDERABLES Final Result Performing Organization Address [facility] de Phone Number [facility]
[address] [place] [address], * POC Glucose Once (08/31/2025 6:02 PM EST) Glucose 119 70 - 130 mg/dL 08/31/2025 6:05 PM EST [facility] Comment:Serial Number: [id number]: [id number] Blood 08/31/2025 6:02 PM EST 08/31/2025 6:05 PM EST Cristian Mckee DO POINT OF CARE TEST ORDERABLES Final Result Performing Organization Address [facility] de Phone Number [facility]
[address] [place] [address], * Telemetry Scan (08/31/2025 2:54 PM EST) [facility] Onbase ECG ORDERABLES Final Result * (ABNORMAL) POC Glucose Once (08/31/2025 1:02 PM EST) Glucose 135(H) 70 - 130 mg/dL 08/31/2025 1:05 PM EST [facility] Comment:Serial Number: [id number]: [id number] Blood 08/31/2025 1:02 PM EST 08/31/2025 1:05 PM EST Cristian Mckee DO POINT OF CARE TEST ORDERABLES Final Result [facility]
[address] [place] [address], * ROLLING UP MACHINE OPERATOR FEES - Fiberoptic Endo Eval Swallow (08/31/2025 9:23 AM EST) Narrative SYSTEMGENERATED, DOCUMENTATION - 08/31/2025 9:23 AM EST This procedure was auto-finalized with no dictation required. Brian Hughes MD ROLLING UP MACHINE OPERATOR ORDERABLES Final Result * POC Glucose Once (08/31/2025 5:18 AM EST) Glucose 121 70 - 130 mg/dL 08/31/2025 5:20 AM EST [facility] Comment:Serial Number: [id number]: [id number] Blood 08/31/2025 5:18 AM EST 08/31/2025 5:20 AM EST Cristian Mckee DO POINT OF CARE TEST ORDERABLES Final Result Performing Organization Address City/[facility]/ZIP Co de Phone Number [facility]
[address] [place] [address], * (ABNORMAL) Procalcitonin (08/31/2025 3:38 AM EST) Procalcitonin 15.80(H) 0.00 - 0.25 ng/mL 08/31/2025 8:30 AM EST [facility] Blood Line / Unknown 08/31/2025 3: 38 AM EST 08/31/2025 3:45 AM EST Narrative [facility] - 08/31/2025 8:30 AM EST [...] Day 4 values are available. Refer to http://[email or web address]-wmq-[email or web address] Change in PCT <=80% A decrease of [...] PharmD LAB BLOOD ORDERABLES Fin al Result [facility]
[address] [place] [address], * (ABNORMAL) Manual Differential (08/31/2025 3:38 AM EST) Neutrophil % 75.0 42.7 - 76.0 % 08/31/2025 6:28 AM EST [facility] Lymphocyte % 9.0(L) 19.6 - 45.3 % 08/31/2025 6:28 AM [facility] Monocyte % 2.0(L) 5.0 - 12.0 % 08/31/2025 6:28 AM [facility] Eosinophil % 2.0 0.3 - 6.2 % 08/31/2025 6:28 AM [facility] Basophil % 0.0 0.0 - 1.5 % 08/31/2025 6:28 AM [facility] Bands % 11.0(H) 0.0 - 5.0 % 08/31/2025 6:28 AM [facility] Atypical Lymphocyte % 1.0 0.0 - 5.0 % 08/31/2025 6:28 AM [facility] Neutrophils Absolute 11.30(H) 1.70 - 7.00 10*3/mm3 08/31/2025 6:28 AM [facility] Lymphocytes Absolute 1.31 0.70 - 3.10 10*3/mm3 08/31/2025 6:28 AM [facility] Monocytes Absolute 0.26 0.10 - 0.90 10*3/mm3 08/31/2025 6:28 AM [facility] Eosinophils Absolute 0.26 0.00 - 0.40 10*3/mm3 08/31/2025 6:28 AM [facility] Basophils Absolute 0.00 0.00 - 0.20 10*3/mm3 08/31/2025 6:28 AM [facility] RBC Morphology Normal Normal 08/31/2025 6:28 AM [facility] WBC Morphology Normal Normal 08/31/2025 6:28 AM [facility] Platelet Morphology Normal Normal 08/31/2025 6:28 AM [facility] Blood Line / Unknown 08/31/2025 3: 38 AM EST 08/31/2025 3:48 AM EST Cristian Mckee DO LAB BLOOD ORDERABLE S Final Result [facility]
[address] [place] [address], * (ABNORMAL) CBC Auto Differential (08/31/2025 3:38 AM EST) WBC 13.14(H) 3.40 - 10.80 10*3/mm3 08/31/2025 6:28 AM EST [facility] RBC 3.12(L) 4.14 - 5.80 10*6/mm3 08/31/2025 6:28 AM EST [facility] Hemoglobin 9.4(L) 13.0 - 17.7 g/dL 08/31/2025 6:28 AM [facility] Hematocrit 29.2(L) 37.5 - 51.0 % 08/31/2025 6:28 AM [facility] MCV 93.6 79.0 - 97.0 fL 08/31/2025 6:28 AM [facility] MCH 30.1 26.6 - 33.0 pg 08/31/2025 6:28 AM [facility] MCHC 32.2 31.5 - 35.7 g/dL 08/31/2025 6:28 AM [facility] RDW 14.3 12.3 - 15.4 % 08/31/2025 6:28 AM [facility] RDW-SD 49.1 37.0 - 54.0 fl 08/31/2025 6:28 AM [facility] MPV 10.6 6.0 - 12.0 fL 08/31/2025 6:28 AM [facility] Platelets 102(L) 140 - 450 10*3/mm3 08/31/2025 6:28 AM [facility] Blood Line / Unknown 08/31/2025 3: 38 AM EST 08/31/2025 3:48 AM EST [facility] - 08/31/2025 6:28 AM EST The previously reported component NRBC is no longer being reported. Previous result was 0.0 /100 WBC (Reference Range: 0.0-0.2 /100 WBC) on 08/31/2025 at 0411 EST. Cristian Mckee DO LAB BLOOD ORDERABLE S Final Result Performing Organization Address City/[facility]/ZIP Co de Phone Number [facility]
[address] [place] [address], * (ABNORMAL) Phosphorus (08/31/2025 3:38 AM EST) Pathologist [facility] Phosphorus 1.7(LL) 2.5 - 4.5 mg/dL 08/31/2025 4:38 AM EST [facility] Blood Line / Unknown 08/31/2025 3: 38 AM EST 08/31/2025 3:45 AM EST Brian Hughes MD LAB BLOOD ORDERABLES Final R esult Performing Organization Address City/[facility]/ZIP Co de Phone Number [facility]
[address] [place] [address], * (ABNORMAL) Comprehensive Metabolic Panel (08/31/2025 3:38 AM EST) Pathologist [facility] Glucose 114(H) 65 - 99 mg/dL 08/31/2025 4:30 AM EST [facility] BUN 29.3(H) 8.0 - 23.0 mg/dL 08/31/2025 4:30 AM EST [facility] Creatinine 0.77 0.76 - 1.27 mg/dL 08/31/2025 4:30 AM EST [facility] Sodium 151(H) 136 - 145 mmol/L 08/31/2025 4:30 AM EST [facility] Potassium 3.2(L) 3.5 - 5.2 mmol/L 08/31/2025 4:30 AM EST [facility] Chloride 114(H) 98 - 107 mmol/L 08/31/2025 4:30 AM EST [facility] CO2 28.2 22.0 - 29.0 mmol/L 08/31/2025 4:30 AM [facility] Calcium 7.8(L) 8.6 - 10.5 mg/dL 08/31/2025 4:30 AM [facility] Total Protein 5.1(L) 6.0 - 8.5 g/dL 08/31/2025 4:30 AM [facility] Albumin 3.0(L) 3.5 - 5.2 g/dL 08/31/2025 4:30 AM [facility] ALT (SGPT) 144(H) 1 - 41 U/L 08/31/2025 4:30 AM [facility] AST (SGOT) 71(H) 1 - 40 U/L 08/31/2025 4:30 AM [facility] Alkaline Phosphatase 107 39 - 117 U/L 08/31/2025 4:30 AM [facility] Total Bilirubin 0.6 0.0 - 1.2 mg/dL 08/31/2025 4:30 AM [facility] Globulin 2.1 gm/dL 08/31/2025 4:30 AM [facility] Comment:Calculated Result A/G Ratio 1.4 g/dL 08/31/2025 4:30 AM [facility] BUN/Creatinine Ratio 38.1(H) 7.0 - 25.0 08/31/2025 4:30 AM [facility] Anion Gap 8.8 5.0 - 15.0 mmol/L 08/31/2025 4:30 AM [facility] eGFR 87.2 >60.0 mL/min/1.7 3 08/31/2025 4:30 AM [facility] Blood Line / Unknown 08/31/2025 3: 38 AM EST 08/31/2025 3:45 AM EST [facility] - 08/31/2025 4:30 AM [...] ORDERABLES Final Re sult Performing Organization Address [facility] [[email or web address]] Co de Phone Number [facility]
[address] [place] [address], * (ABNORMAL) Lipase (08/31/2025 3:38 AM EST) Lipase 110(H) 13 - 60 U/L 08/31/2025 4:30 AM EST [facility] Blood Line / Unknown 08/31/2025 3: 38 AM EST 08/31/2025 3:45 AM EST Hermes Jaramillo MD LAB BLOOD ORDERABLES Final Re sult Performing Organization Address [facility] de Phone Number [facility]
[address] [place] [address], * (ABNORMAL) Magnesium (08/31/2025 3:38 AM EST) Magnesium 2.6(H) 1.6 - 2.4 mg/dL 08/31/2025 4:30 AM EST [facility] Blood Line / Unknown 08/31/2025 3: 38 AM EST 08/31/2025 3:45 AM EST Brian Hughes MD LAB BLOOD ORDERABLES Final R esult Performing Organization Address [facility] de Phone Number [facility]
[address] [place] [address], * POC Glucose Once (08/30/2025 11:24 PM EST) Glucose 113 70 - 130 mg/dL 08/30/2025 11:26 PM EST [facility] Comment:Serial Number: [id number]: [id number] Stella Comment 1 Critical called to 08/30/2025 11:26 PM EST [facility] Nova Comment 2 Follow unit protocol 08/30/2025 11:26 PM EST [facility] Blood 08/30/2025 11:2 4 PM EST 08/30/2025 11:26 PM EST Cristian Mckee DO POINT OF CARE TEST ORDERABLES Final Result Performing Organization Address City/[facility]/ZIP Co de Phone Number [facility]
[address] [place] [address], * POC Glucose Once (08/30/2025 5:45 PM EST) Glucose 91 70 - 130 mg/dL 08/30/2025 5:49 PM EST [facility] Comment:Serial Number: [id number]: [id number] Blood 08/30/2025 5:45 PM EST 08/30/2025 5:49 PM EST Cristian Mckee DO POINT OF CARE TEST ORDERABLES Final Result [facility]
[address] [place] [address], * POC Glucose Once (08/30/2025 11:31 AM EST) Glucose 92 70 - 130 mg/dL 08/30/2025 11:35 AM EST [facility] Comment:Serial Number: [id number]: [id number] Blood 08/30/2025 11:3 1 AM EST 08/30/2025 11:34 AM EST Cristian Mckee DO POINT OF CARE TEST ORDERABLES Final Result [facility]
[address] [place] [address], * Telemetry Scan (08/30/2025 9:26 AM EST) [facility] Onbase ECG ORDERABLES Final Result * POC Glucose Once (08/30/2025 5:13 AM EST) Glucose 100 70 - 130 mg/dL 08/30/2025 5:16 AM EST [facility] Comment:Serial Number: [id number]: [id number] Blood 08/30/2025 5:13 AM EST 08/30/2025 5:16 AM EST Cristian Mckee DO POINT OF CARE TEST ORDERABLES Final Result Performing Organization Address [facility] [[email or web address]] Co de Phone Number [facility]
[address] [place] [address], * Phosphorus (08/30/2025 4:03 AM EST) Phosphorus 2.5 2.5 - 4.5 mg/dL 08/30/2025 5:01 AM EST [facility] Blood Line / Unknown 08/30/2025 4: 03 AM EST 08/30/2025 4:30 AM EST Brian Hughes MD LAB BLOOD ORDERABLES Final R esult Performing Organization Address City/[facility]/ZIP Co de Phone Number [facility]
[address] [place] [address], * (ABNORMAL) Lipase (08/30/2025 4:03 AM EST) Lipase 137(H) 13 - 60 U/L 08/30/2025 4:53 AM EST [facility] Blood Line / Unknown 08/30/2025 4: 03 AM EST 08/30/2025 4:30 AM EST Hermes Jaramillo MD LAB BLOOD ORDERABLES Final Re sult [facility]
[address] [place] [address], * (ABNORMAL) Comprehensive Metabolic Panel (08/30/2025 4:03 AM EST) Pathologist [facility] Glucose 98 65 - 99 mg/dL 08/30/2025 4:53 AM [facility] BUN 35.1(H) 8.0 - 23.0 mg/dL 08/30/2025 4:53 AM [facility] Creatinine 1.16 0.76 - 1.27 mg/dL 08/30/2025 4:53 AM [facility] Sodium 148(H) 136 - 145 mmol/L 08/30/2025 4:53 AM [facility] Potassium 3.5 3.5 - 5.2 mmol/L 08/30/2025 4:53 AM [facility] Chloride 109(H) 98 - 107 mmol/L 08/30/2025 4:53 AM [facility] CO2 30.9(H) 22.0 - 29.0 mmol/L 08/30/2025 4:53 AM [facility] Calcium 7.9(L) 8.6 - 10.5 mg/dL 08/30/2025 4:53 AM [facility] Total Protein 5.0(L) 6.0 - 8.5 g/dL 08/30/2025 4:53 AM [facility] Albumin 2.9(L) 3.5 - 5.2 g/dL 08/30/2025 4:53 AM [facility] ALT (SGPT) 199(H) 1 - 41 U/L 08/30/2025 4:53 AM EST [facility] AST (SGOT) 144(H) 1 - 40 U/L 08/30/2025 4:53 AM [facility] Alkaline Phosphatase 93 39 - 117 U/L 08/30/2025 4:53 AM [facility] Total Bilirubin 0.7 0.0 - 1.2 mg/dL 08/30/2025 4:53 AM [facility] Globulin 2.1 gm/dL 08/30/2025 4:53 AM [facility] Comment:Calculated Result A/G Ratio 1.4 g/dL 08/30/2025 4:53 AM [facility] BUN/Creatinine Ratio 30.3(H) 7.0 - 25.0 08/30/2025 4:53 AM [facility] Anion Gap 8.1 5.0 - 15.0 mmol/L 08/30/2025 4:53 AM [facility] eGFR 61.3 >60.0 mL/min/1.7 3 08/30/2025 4:53 AM [facility] Blood Line / Unknown 08/30/2025 4: 03 AM EST 08/30/2025 4:30 AM EST [facility] - 08/30/2025 4:53 AM [...] MD LAB BLOOD ORDERABLES Final Re sult [facility]
[address] [place] [address], * (ABNORMAL) CBC (No Diff) (08/30/2025 4:03 AM EST) WBC 12.35(H) 3.40 - 10.80 10*3/mm3 08/30/2025 4:37 AM EST [facility] RBC 2.83(L) 4.14 - 5.80 10*6/mm3 08/30/2025 4:37 AM EST [facility] Hemoglobin 8.3(L) 13.0 - 17.7 g/dL 08/30/2025 4:37 AM [facility] Hematocrit 26.5(L) 37.5 - 51.0 % 08/30/2025 4:37 AM EST [facility] MCV 93.6 79.0 - 97.0 fL 08/30/2025 4:37 AM EST [facility] MCH 29.3 26.6 - 33.0 pg 08/30/2025 4:37 AM EST [facility] MCHC 31.3(L) 31.5 - 35.7 g/dL 08/30/2025 4:37 AM EST [facility] RDW 14.7 12.3 - 15.4 % 08/30/2025 4:37 AM [facility] RDW-SD 50.5 37.0 - 54.0 fl 08/30/2025 4:37 AM [facility] MPV 10.6 6.0 - 12.0 fL 08/30/2025 4:37 AM EST [facility] Platelets 96(L) 140 - 450 10*3/mm3 08/30/2025 4:37 AM [facility] Blood Line / Unknown 08/30/2025 4: 03 AM EST 08/30/2025 4:31 AM EST Hermes Jaramillo MD LAB BLOOD ORDERABLES Final Re sult Performing Organization Address [facility] [[email or web address]] Co de Phone Number [facility]
[address] [place] [address], * (ABNORMAL) Magnesium (08/30/2025 4:03 AM EST) Magnesium 2.7(H) 1.6 - 2.4 mg/dL 08/30/2025 4:53 AM EST [facility] Blood Line / Unknown 08/30/2025 4: 03 AM EST 08/30/2025 4:30 AM EST Brian Hughes MD LAB BLOOD ORDERABLES Final R esult Performing Organization Address [facility] [[email or web address]] Co de Phone Number [facility]
[address] [place] [address], * POC Glucose Once (08/29/2025 11:05 PM EST) Glucose 101 70 - 130 mg/dL 08/29/2025 11:07 PM EST [facility] Comment:Serial Number: [id number] Blood 08/29/2025 11:0 5 PM EST 08/29/2025 11:07 PM EST Cristian Mckee DO POINT OF CARE TEST ORDERABLES Final Result Performing Organization Address [facility] [[email or web address]] Co de Phone Number [facility]
[address] [place] [address], * POC Glucose Once (08/29/2025 5:50 PM EST) Glucose 112 70 - 130 mg/dL 08/29/2025 6:02 PM EST [facility] Comment:Serial Number: [id number]: [id number] Blood 08/29/2025 5:50 PM EST 08/29/2025 6:02 PM EST Cristian Mckee DO POINT OF CARE TEST ORDERABLES Final Result [facility]
[address] [place] [address], * (ABNORMAL) Blood Gas, Arterial With Co-Ox (08/29/2025 5:10 PM EST) Site Arterial Line 08/29/2025 5:10 PM EST [facility] THERAPY Andrey's Test N/A 08/29/2025 5:10 PM EST [facility] THERAPY pH, Arterial 7.490(H) 7.350 - 7.450 pH units 08/29/2025 5:10 PM EST [facility] THERAPY Comment:83 Value above refer ence range pCO2, Arterial 31.6(L) 35.0 - 45.0 mm Hg 08/29/2025 5:10 PM EST [facility] THERAPY Comment:84 Value below refer ence range pO2, Arterial 145.0(H) 83.0 - 108.0 mm Hg 08/29/2025 5:10 PM EST [facility] THERAPY HCO3, Arterial 24.0 20.0 - 26.0 mmol/L 08/29/2025 5:10 PM EST [facility] THERAPY Base Excess, Arterial 0.8 0.0 - 2.0 mmol/L 08/29/2025 5:10 PM EST [facility] THERAPY Hemoglobin, Blood Gas 7.5(L) 13.5 - 17.5 g/dL 08/29/2025 5:10 PM [facility]PIRAT[facility] THERAPY Comment:84 Value below refer ence range Hematocrit, Blood Gas 23.1(L) 38.0 - 51.0 % 08/29/2025 5:10 PM EST [facility] THERAPY Oxyhemoglobin 98.7 94 - 99 % 08/29/2025 5:10 PM EST [facility] THERAPY Methemoglobin 0.30 0.00 - 1.50 % 08/29/2025 5:10 PM [facility] THERAPY Carboxyhemoglobin 1.1 0 - 2 % 025 5:10 PM [facility] THERAPY CO2 Content 25.0 22 - 33 mmol/L 08/29/2025 5:10 PM [facility] THERAPY Temperature 37.0 08/29/2025 5:10 PM [facility] THERAPY Barometric Pressure for Blood Gas 08/29/2025 5:10 PM [facility] THERAP[facility] Comment:N/A Modality Ventilator 08/29/2025 5:10 PM [facility] THERAPY FIO2 40 % 08/29/2025 5:10 PM [facility] THERAPY Ventilator Mode PS 5:10 PM [facility] THERAP[facility] Rate 0 Breaths/ minute 08/29/2025 5:10 PM [facility] THERAPY PEEP 6.0 08/29/2025 5:10 PM [facility] THERAPY PSV 10.0 cmH2O 08/29/2025 5:10 PM [facility] THERAPY PIP 0 cmH2O 08/29/2025 5:10 PM [facility] THERAPY Comment:Meter: [id number] Geophysical Engineer: [id number] IPAP 0 cm H2O 08/29/2025 5:10 PM [facility] THERAPY EPAP 0 cm H2O 08/29/2025 5:10 PM [facility] THERAPY pH, Temp Corrected 7.490 pH Units 2024 5:10 PM [facility] THERAPY pCO2, Temperature Corrected 31.6(L) 35 - 48 mm Hg 08/29/2025 5:10 PM [facility] THERAPY pO2, Temperature Corrected 145(H) 83 - 108 mm Hg 08/29/2025 5:10 PM [facility] THERAPY Arterial Blood 08/29/2025 5: 10 PM EST 08/29/2025 5:10 PM EST [facility] S Final Result Performing Organization Address [facility]/ZIP Co de Phone Number [facility] THERAPY
[address] [place] [address], * (ABNORMAL) STAT Lactic Acid, Reflex (08/29/2025 4:18 PM EST) Lactate 2.3(HH) 0.5 - 2.0 mmol/L 08/29/2025 4:52 PM EST [facility] Comment:Falsely depressed re sults may occur on samples drawn from patients receiving N-Acetylcysteine (NAC) or Metamizole. Blood Line / Unknown 08/29/2025 4: 18 PM EST 08/29/2025 4:29 PM EST [facility]ABLE S Final Result Performing Organization Address [facility] [[email or web address]] Co de Phone Number [facility]
[address] [place] [address], * (ABNORMAL) STAT Lactic Acid, Reflex (08/29/2025 1:16 PM EST) Lactate 2.9(HH) 0.5 - 2.0 mmol/L 08/29/2025 1:55 PM EST [facility] Blood Line / Unknown 08/29/2025 1: 16 PM EST 08/29/2025 1:23 PM EST [facility] ORDER[facility] S Final Result Performing Organization Address City/[facility] [[email or web address]] Co de Phone Number [facility]
[address] [place] [address], * POC Glucose Once (08/29/2025 11:07 AM EST) Glucose 108 70 - 130 mg/dL 08/29/2025 11:11 AM EST [facility] Comment:Serial Number: [id number]: [id number] Blood 08/29/2025 11:0 7 AM EST 08/29/2025 11:11 AM EST Cristian Mckee DO POINT OF CARE TEST ORDERABLES Final Result Performing Organization Address City/[facility]/ZIP Co de Phone Number [facility]
[address] [place] [address], * (ABNORMAL) STAT Lactic Acid, Reflex (08/29/2025 9:42 AM EST) Lactate 3.7(HH) 0.5 - 2.0 mmol/L 08/29/2025 10:35 AM EST [facility] Comment:Falsely depressed re sults may occur on samples drawn from patients receiving N-Acetylcysteine (NAC) or Metamizole. Blood Line / Unknown 08/29/2025 9: 42 AM EST 08/29/2025 10:10 AM EST Cristian Mckee DO LAB BLOOD ORDERABLE S Final Result Performing Organization Address [facility] de Phone Number [facility]
[address] [place] [address], * POC Glucose Once (08/29/2025 6:16 AM EST) Glucose 100 70 - 130 mg/dL 08/29/2025 6:19 AM EST [facility] Comment:Serial Number: [id number]: [id number] Blood 08/29/2025 6:16 AM EST 08/29/2025 6:19 AM EST Cristian Mckee DO POINT OF CARE TEST ORDERABLES Final Result Performing Organization Address City/[facility]/ZIP Co de Phone Number [facility]
[address] [place] [address], * (ABNORMAL) CBC (No Diff) (08/29/2025 6:07 AM EST) WBC 15.08(H) 3.40 - 10.80 10*3/mm3 08/29/2025 6:34 AM EST [facility] RBC 2.90(L) 4.14 - 5.80 10*6/mm3 08/29/2025 6:34 AM EST [facility] Hemoglobin 8.5(L) 13.0 - 17.7 g/dL 08/29/2025 6:34 AM [facility] Hematocrit 26.8(L) 37.5 - 51.0 % 08/29/2025 6:34 AM [facility] MCV 92.4 79.0 - 97.0 fL 08/29/2025 6:34 AM EST [facility] MCH 29.3 26.6 - 33.0 pg 08/29/2025 6:34 AM [facility] MCHC 31.7 31.5 - 35.7 g/dL 08/29/2025 6:34 AM EST [facility] RDW 15.1 12.3 - 15.4 % 08/29/2025 6:34 AM [facility] RDW-SD 50.7 37.0 - 54.0 fl 08/29/2025 6:34 AM EST [facility] MPV 10.4 6.0 - 12.0 fL 08/29/2025 6:34 AM [facility] Platelets 95(L) 140 - 450 10*3/mm3 08/29/2025 6:34 AM [facility] Blood Line / Unknown 08/29/2025 6: 07 AM EST 08/29/2025 6:13 AM EST us Alma Rosa Lucas STEREOTYPER APPRENTICE LAB BLOOD ORDERABLES Final Result [facility]
[address] [place] [address], * (ABNORMAL) Basic Metabolic Panel (08/29/2025 6:07 AM EST) Glucose 119(H) 65 - 99 mg/dL 08/29/2025 6:34 AM EST [facility] BUN 38.4(H) 8.0 - 23.0 mg/dL 08/29/2025 6:34 AM EST [facility] Creatinine 1.57(H) 0.76 - 1.27 mg/dL 08/29/2025 6:34 AM EST [facility] Sodium 146(H) 136 - 145 mmol/L 08/29/2025 6:34 AM EST [facility] Potassium 4.1 3.5 - 5.2 mmol/L 08/29/2025 6:34 AM EST [facility] Chloride 105 98 - 107 mmol/L 08/29/2025 6:34 AM [facility] CO2 26.0 22.0 - 29.0 mmol/L 08/29/2025 6:34 AM [facility] Calcium 7.9(L) 8.6 - 10.5 mg/dL 08/29/2025 6:34 AM [facility] BUN/Creatinine Ratio 24.5 7.0 - 25.0 08/29/2025 6:34 AM [facility] Anion Gap 15.0 5.0 - 15.0 mmol/L 08/29/2025 6:34 AM [facility] eGFR 42.7(L) >60.0 mL/min/1.7 3 08/29/2025 6:34 AM [facility] Blood Line / Unknown 08/29/2025 6: 07 AM EST 08/29/2025 6:13 AM EST [facility] LABORATORY - 08/29/2025 6:34 AM [...] ORDERABLES Final R esult Performing Organization Address City/[facility]/ZIP Co de Phone Number [facility]
[address] [place] [address], * (ABNORMAL) Phosphorus (08/29/2025 6:07 AM EST) Phosphorus 5.2(H) 2.5 - 4.5 mg/dL 08/29/2025 6:34 AM EST [facility] Blood Line / Unknown 08/29/2025 6: 07 AM EST 08/29/2025 6:13 AM EST Brian Hughes MD LAB BLOOD ORDERABLES Final R esult Performing Organization Address [facility] de Phone Number [facility]
[address] [place] [address], * (ABNORMAL) Lactic Acid, Plasma (08/29/2025 6:07 AM EST) Lactate 4.5(HH) 0.5 - 2.0 mmol/L 08/29/2025 6:38 AM EST [facility] Comment:Falsely depressed re sults may occur on samples drawn from patients receiving N-Acetylcysteine (NAC) or Metamizole. Blood Line / Unknown 08/29/2025 6: 07 AM EST 08/29/2025 6:13 AM EST Cristian Mckee DO LAB BLOOD ORDERABLE S Final Result Performing Organization Address City/[facility] [[email or web address]] Co de Phone Number [facility]
[address] [place] [id number], * Magnesium (08/29/2025 6:07 AM EST) Magnesium 2.3 1.6 - 2.4 mg/dL 08/29/2025 6:38 AM EST [facility] Blood Line / Unknown 08/29/2025 6: 07 AM EST 08/29/2025 6:13 AM EST us Brian Hughes MD LAB BLOOD ORDERABLES Final R esult [facility]
[address] [place] [address], * XR Chest 1 View (08/29/2025 3:58 AM EST) Anatomical Region Laterality Modality Body N/A Radiographic Radha ging 08/29/2025 4:13 AM EST Impressions 08/29/2025 4:14 AM EST 1.Slight increased infiltrate or atelectasis at the right lung base. 2.Persistent opacities in the left mid to lower lung with possible small left effusion. Electronically Signed: Luís Rodríguez MD 08/29/2025 4:14 AM EST Workstation ID: [id number] Narrative 08/29/2025 4:14 AM EST XR CHEST [...] MD 08/29/2025 4:14 AM EST Workstation ID: [id number] us Alma Rosa Lucas APRN IMG DIAGNOSTIC IMAGING ORD ERABLES Final Result * (ABNORMAL) Blood Gas, Arterial With Co-Ox (08/29/2025 3:51 AM EST) Site Arterial Line 08/29/2025 3:52 AM EST [facility] THERAPY Andrey's Test N/A 08/29/2025 3:52 AM EST [facility] THERAPY pH, Arterial 7.407 7.350 - 7.450 pH units 08/29/2025 3:52 AM EST [facility] THERAPY pCO2, Arterial 36.8 35.0 - 45.0 mm Hg 08/29/2025 3:52 AM EST [facility] THERAPY pO2, Arterial 144.0(H) 83.0 - 108.0 mm Hg 08/29/2025 3:52 AM EST [facility] THERAPY HCO3, Arterial 23.1 20.0 - 26.0 mmol/L 08/29/2025 3:52 AM EST [facility] THERAPY Base Excess, Arterial -1.4(L) 0.0 - 2.0 mmol/L 08/29/2025 3:52 AM EST [facility] THERAPY Hemoglobin, Blood Gas 8.0(L) 13.5 - 17.5 g/dL 08/29/2025 3:52 AM EST [facility] THERAPY Comment:84 Value below refer ence range Hematocrit, Blood Gas 24.5(L) 38.0 - 51.0 % 08/29/2025 3:52 AM [facility] THERAPY Oxyhemoglobin 98.5 94 - 99 % 08/29/2025 3:52 AM [facility] THERAPY Methemoglobin 0.20 0.00 - 1.50 % 08/29/2025 3:52 AM [facility] THERAPY Carboxyhemoglobin 1.1 0 - 2 % 025 3:52 AM [facility] THERAPY CO2 Content 24.3 22 - 33 mmol/L 08/29/2025 3:52 AM [facility] THERAPY Temperature 37.0 08/29/2025 3:52 AM [facility] THERAPY Barometric Pressure for Blood Gas 08/29/2025 3:52 AM [facility] THERAPY Comment:N/A Modality Ventilator 08/29/2025 3:52 AM [facility] THERAPY FIO2 45 % 08/29/2025 3:52 AM [facility] THERAPY Ventilator Mode VC+/AC 3:52 AM [facility] THERAP[facility] Set Tidal Volume 0.46 08/29/20 3:52 AM [facility] THERAPY Rate 16 Breaths/ minute 08/29/2025 3:52 AM [facility] THERAPY PEEP 10.0 08/29/2025 3:52 AM [facility] THERAPY PIP 0 cmH2O 08/29/2025 3:52 AM [facility] THERAPY Comment:Meter: [id number] Geophysical Engineer: [id number] IPAP 0 cm H2O 08/29/2025 3:52 AM [facility] THERAPY EPAP 0 cm H2O 08/29/2025 3:52 AM [facility] THERAPY pH, Temp Corrected 7.407 pH Units 2024 3:52 AM [facility] THERAPY pCO2, Temperature Corrected 36.8 35 - 48 mm Hg 08/29/2025 3:52 AM [facility] THERAPY pO2, Temperature Corrected 144(H) 83 - 108 mm Hg 08/29/2025 3:52 AM EST [facility] THERAPY Arterial Blood 08/29/2025 3: 51 AM EST 08/29/2025 3:51 AM EST Cristian Elliottargentina Mckee DO LAB BLOOD ORDERABLE S Final Result Performing Organization Address [facility] [[email or web address]] Co de Phone Number [facility]IR[facility] THERAPY
[address] [place] [address], * (ABNORMAL) Lactic Acid, Plasma (08/29/2025 12:24 AM EST) Lactate 5.1(HH) 0.5 - 2.0 mmol/L 08/29/2025 1:21 AM EST [facility] Comment:Falsely depressed re sults may occur on samples drawn from patients receiving N-Acetylcysteine (NAC) or Metamizole. Blood Line / Unknown 08/29/2025 12 :24 AM EST 08/29/2025 12:44 AM EST Cristian Mckee DO LAB BLOOD ORDERABLE S Final Result Performing Organization Address [facility] de Phone Number [facility]
[address] [place] [address], * POC Glucose Once (08/28/2025 10:58 PM EST) Glucose 109 70 - 130 mg/dL 08/28/2025 11:00 PM EST [facility] Comment:Serial Number: [id number]: [id number] Blood 08/28/2025 10:5 8 PM EST 08/28/2025 11:00 PM EST Cristian Mckee DO POINT OF CARE TEST ORDERABLES Final Result Performing Organization Address City/[facility] [[email or web address]] Co de Phone Number [facility]
[address] [place] [address], * (ABNORMAL) Blood Gas, Arterial With Co-Ox (08/28/2025 8:04 PM EST) Pathologist [facility] Site Arterial Line 08/28/2025 8:04 PM [facility] RESPIR[facility] THERAPY Andrey's Test N/A 08/28/2025 8:04 PM [facility] THERAPY pH, Arterial 7.408 7.350 - 7.450 pH units 08/28/2025 8:04 PM [facility] THERAPY pCO2, Arterial 37.6 35.0 - 45.0 mm Hg 08/28/2025 8:04 PM [facility] THERAPY pO2, Arterial 157.0(H) 83.0 - 108.0 mm Hg 08/28/2025 8:04 PM [facility] THERAPY HCO3, Arterial 23.7 20.0 - 26.0 mmol/L 08/28/2025 8:04 PM [facility] THERAPY Base Excess, Arterial -0.8(L) 0.0 - 2.0 mmol/L 08/28/2025 8:04 PM [facility] THERAPY Hemoglobin, Blood Gas 8.3(L) 13.5 - 17.5 g/dL 08/28/2025 8:04 PM [facility] THERAPY Comment:84 Value below refer ence range Hematocrit, Blood Gas 25.3(L) 38.0 - 51.0 % 08/28/2025 8:04 PM [facility] THERAPY Oxyhemoglobin 98.6 94 - 99 % 08/28/2025 8:04 PM [facility] THERAPY Methemoglobin 0.30 0.00 - 1.50 % 08/28/2025 8:04 PM [facility] THERAPY Carboxyhemoglobin 1.1 0 - 2 % 025 8:04 PM [facility] THERAPY CO2 Content 24.9 22 - 33 mmol/L 08/28/2025 8:04 PM [facility] THERAPY Temperature 37.0 08/28/2025 8:04 PM [facility] THERAPY Barometric Pressure for Blood Gas 08/28/2025 8:04 PM [facility] THERAPY Comment:N/A Modality Ventilator 08/28/2025 8:04 PM [facility] THERAPY FIO2 45 % 08/28/2025 8:04 PM [facility] THERAPY Ventilator Mode VC+/AC 8:04 PM [facility] THERAPY Set Tidal Volume 0.46 08/28/20 8:04 PM [facility] THERAPY Rate 16 Breaths/ minute 08/28/2025 8:04 PM [facility] THERAPY PEEP 10.0 08/28/2025 8:04 PM [facility] THERAPY PIP 0 cmH2O 08/28/2025 8:04 PM [facility] THERAPY Comment:Meter: [id number] Geophysical Engineer: [id number] IPAP 0 cm H2O 08/28/2025 8:04 PM [facility] THERAPY EPAP 0 cm H2O 08/28/2025 8:04 PM [facility] THERAPY pH, Temp Corrected 7.408 pH Units 2024 8:04 PM [facility] THERAPY pCO2, Temperature Corrected 37.6 35 - 48 mm Hg 08/28/2025 8:04 PM [facility] THERAPY pO2, Temperature Corrected 157(H) 83 - 108 mm Hg 08/28/2025 8:04 PM [facility] THERAPY Arterial Blood 08/28/2025 8: 04 PM EST 08/28/2025 8:04 PM EST us Cristian Mckee DO LAB BLOOD ORDERABLE S Final Result [facility]IR[facility] THERAPY
[address] [place] [address], * (ABNORMAL) Lactic Acid, Plasma (08/28/2025 7:18 PM EST) Lactate 5.7(HH) 0.5 - 2.0 mmol/L 08/28/2025 7:58 PM EST [facility] Comment:Falsely depressed re sults may occur on samples drawn from patients receiving N-Acetylcysteine (NAC) or Metamizole. Blood Line / Unknown 08/28/2025 7: 18 PM EST 08/28/2025 7:33 PM EST Cristian Mckee DO LAB BLOOD ORDERABLE S Final Result Performing Organization Address [facility] [[email or web address]] Co de Phone Number [facility]
[address] [place] [address], * POC Glucose Once (08/28/2025 5:56 PM EST) [facility] Glucose 113 70 - 130 mg/dL 08/28/2025 5:59 PM EST [facility] Comment:Serial Number: [id number]: [id number] Blood 08/28/2025 5:56 PM EST 08/28/2025 5:59 PM EST Cristian Mckee DO POINT OF CARE TEST ORDERABLES Final Result Performing Organization Address [facility] de Phone Number [facility]
[address] [place] [address], * (ABNORMAL) Blood Gas, Arterial With Co-Ox (08/28/2025 2:14 PM EST) [facility] Site Arterial Line 08/28/2025 2:16 PM EST [facility] RESPIR[facility] THERAPY Andrey's Test N/A 08/28/2025 2:16 PM EST [facility]IRATORY THERAPY pH, Arterial 7.312(L) 7.350 - 7.450 pH units 08/28/2025 2:16 PM EST [facility] RESPIRATORY THERAPY Comment:84 Value below refer ence range pCO2, Arterial 44.7 35.0 - 45.0 mm Hg 08/28/2025 2:16 PM EST [facility] RESPIRATORY THERAPY pO2, Arterial 161.0(H) 83.0 - 108.0 mm Hg 08/28/2025 2:16 PM [facility] RESPIRATORY THERAPY HCO3, Arterial 22.6 20.0 - 26.0 mmol/L 08/28/2025 2:16 PM [facility] RESPIRATORY THERAPY Base Excess, Arterial -3.5(L) 0.0 - 2.0 mmol/L 08/28/2025 2:16 PM [facility] RESPIRATORY THERAPY Hemoglobin, Blood Gas 9.1(L) 13.5 - 17.5 g/dL 08/28/2025 2:16 PM [facility]ERAP[facility] Comment:84 Value below refer ence range Hematocrit, Blood Gas 27.8(L) 38.0 - 51.0 % 08/28/2025 2:16 PM [facility] RESPIRATORY THERAPY Oxyhemoglobin 98.3 94 - 99 % 08/28/2025 2:16 PM [facility] RESP[facility] THERAP[facility] Methemoglobin 0.60 0.00 - 1.50 % 08/28/2025 2:16 PM [facility] RESPIRATORY THERAP[facility] Carboxyhemoglobin 1.0 0 - 2 % 025 2:16 PM [facility] RESPIR[facility]ORY THERAP[facility] CO2 Content 24.0 22 - 33 mmol/L 08/28/2025 2:16 PM [facility] RESPIRATORY THERAPY Temperature 37.0 08/28/2025 2:16 PM [facility] RESPIR[facility]ORY THERAPY Barometric Pressure for Blood Gas 08/28/2025 2:16 PM [facility] RESPIR[facility]ORY THERAP[facility] Comment:N/A Modality Ventilator 08/28/2025 2:16 PM [facility] RESPIRATORY THERAPY FIO2 60 % 08/28/2025 2:16 PM [facility] RESPIRATORY THERAPY Ventilator Mode VC+/AC 2:16 PM [facility] THERAP[facility] Set Tidal Volume 460 08/28/20 2:16 PM [facility] RESPIRATORY THERAP[facility] Set Mech Resp Rate 16 2024 2:16 PM [facility] RESPIR[facility]ORY THERAPY Rate 16 Breaths/ minute 08/28/2025 2:16 PM EST [facility] RESPIRATORY THERAPY Comment:Meter: [id number] Geophysical Engineer: [id number] PEEP 10.0 08/28/2025 2:16 PM EST [facility] RESPIRATORY THERAPY pH, Temp Corrected 7.312 pH Units 2024 2:16 PM EST [facility] RESPIRATORY THERAPY pCO2, Temperature Corrected 44.7 35 - 48 mm Hg 08/28/2025 2:16 PM EST [facility] RESPIRATORY THERAPY pO2, Temperature Corrected 161(H) 83 - 108 mm Hg 08/28/2025 2:16 PM EST [facility] RESPIRATORY THERAPY Arterial Blood 08/28/2025 2: 14 PM EST 08/28/2025 2:15 PM EST Cristian Mckee DO LAB BLOOD ORDERABLE S Final Result Performing Organization Address City/[facility] [[email or web address]] Co de Phone Number [facility] RESPIRATORY THERAPY
[address] * POC Glucose Once (08/28/2025 11:09 AM EST) [facility] Signature Glucose 89 70 - 130 mg/dL 08/28/2025 11:12 AM EST [facility] LABORATORY Comment:Serial Number: [id number] Blood 08/28/2025 11:0 9 AM EST 08/28/2025 11:12 AM EST Cristian Mckee DO POINT OF CARE TEST ORDERABLES Final Result Performing Organization Address City/[facility]/ZIP Co de Phone Number [facility] LABORATORY
[facility] [address] [phone] * XR Abdomen KUB (08/28/2025 10:13 AM EST) Anatomical Region Laterality Modality Body, Abdomen N/A Radiographic Radha ging 08/28/2025 10:5 3 AM EST Impressions 08/28/2025 10:53 AM EST Impression: NG tube tip overlies the mid body of the stomach. Electronically Signed: Stephen Toussaint MD 08/28/2025 10:53 AM EST Workstation ID: [id number] Narrative 08/28/2025 10:53 AM EST XR ABDOMEN [...] MD 08/28/2025 10:53 AM EST Workstation ID: [id number] Hermes Jaramillo MD IMG DIAGNOSTIC IMAGING ORDERA [...] MD 08/28/2025 11:08 AM EST Workstation ID: [id number] Narrative 08/28/2025 11:08 AM EST XR CHEST [...] MD 08/28/2025 11:08 AM EST Workstation ID: [id number] Cristian Mckee DO IMG DIAGNOSTIC IMAG ING ORDERABLES Final Result * (ABNORMAL) Blood Gas, Arterial With Co-Ox (08/28/2025 9:58 AM EST) Site Arterial Line 08/28/2025 10:00 AM EST [facility] RESPIRATORY THERAPY Andrey's Test N/A 08/28/2025 10:00 AM EST [facility] RESPIRATORY THERAPY pH, Arterial 7.210(LL) 7.350 - 7.450 pH units 08/28/2025 10:00 AM [facility] RESPIRATORY THERAPY Comment:85 Value below criti valentín limit pCO2, Arterial 45.7(H) 35.0 - 45.0 mm Hg 08/28/2025 10:00 AM [facility] RESPIRATORY THERAPY Comment:83 Value above refer ence range pO2, Arterial 316.0(H) 83.0 - 108.0 mm Hg 08/28/2025 10:00 AM [facility] RESPIRATORY THERAPY HCO3, Arterial 18.3(L) 20.0 - 26.0 mmol/L 08/28/2025 10:00 AM [facility] RESPIRATORY THERAPY Base Excess, Arterial -9.1(L) 0.0 - 2.0 mmol/L 08/28/2025 10:00 AM [facility] RESPIRATORY THERAPY Hemoglobin, Blood Gas 8.8(L) 13.5 - 17.5 g/dL 08/28/2025 10:00 AM [facility] RESPIRATORY THERAPY Comment:84 Value below refer ence range Hematocrit, Blood Gas 26.9(L) 38.0 - 51.0 % 08/28/2025 10:00 AM [facility] RESPIRATORY THERAPY Oxyhemoglobin 98.6 94 - 99 % 08/28/2025 10:00 AM [facility] RESPIRATORY THERAPY Methemoglobin 0.50 0.00 - 1.50 % 08/28/2025 10:00 AM [facility] RESPIRATORY THERAPY Carboxyhemoglobin 1.2 0 - 2 % 025 10:00 AM [facility] RESPIRATORY THERAPY CO2 Content 19.7(L) 22 - 33 mmol/L 08/28/2025 10:00 AM [facility] RESPIRATORY THERAPY Temperature 37.0 08/28/2025 10:00 AM [facility] RESPIRATORY THERAPY Barometric Pressure for Blood Gas 08/28/2025 10:00 AM [facility] RESPIRATORY THERAPY Comment:N/A Modality Ventilator 08/28/2025 10:00 AM [facility] RESPIRATORY THERAPY FIO2 100 % 08/28/2025 10:00 AM [facility] RESPIRATORY THERAPY Ventilator Mode VC+/AC 10:00 AM [facility] RESPIRATORY THERAPY Set Tidal Volume 460 08/28/20 10:00 AM [facility] RESPIRATORY THERAPY Set Mech Resp Rate 16 2024 10:00 AM [facility] RESPIRATORY THERAPY Rate 16 Breaths/ minute 08/28/2025 10:00 AM [facility] RESPIRATORY THERAPY Comment:Meter: [id number] Geophysical Engineer: [id number] PEEP 5.0 08/28/2025 10:00 AM [facility] RESPIRATORY THERAPY Notified Who LANCE HUDSON 08/28/2025 10:00 AM [facility] RESPIRATORY THERAPY Notified By [id number] 08/28/2025 10:00 AM [facility] RESPIRATORY THERAPY Notified Time 08/28/2025 10:00 08/28/2025 10:00 AM [facility] RESPIRATORY THERAPY pH, Temp Corrected 7.210 pH Units 2024 10:00 AM [facility] RESPIRATORY THERAPY pCO2, Temperature Corrected 45.7 35 - 48 mm Hg 08/28/2025 10:00 AM [facility] RESPIRATORY THERAPY pO2, Temperature Corrected 316(H) 83 - 108 mm Hg 08/28/2025 10:00 AM [facility] RESPIRATORY THERAPY Arterial Blood 08/28/2025 9: 58 AM EST 08/28/2025 9:59 AM EST us Cristian Mckee DO LAB BLOOD ORDERABLE S Final Result [facility] RESPIRATORY THERAPY
[address] [place] [address], [place] * (ABNORMAL) Manual Differential (08/28/2025 9:55 AM EST) Neutrophil % 65.0 42.7 - 76.0 % 08/28/2025 10:49 PM EST [facility] LABORATORY Lymphocyte % 9.0(L) 19.6 - 45.3 % 08/28/2025 10:49 PM [facility] LABOR[facility] Monocyte % 2.0(L) 5.0 - 12.0 % 08/28/2025 10:49 PM [facility] LABOR[facility] Eosinophil % 0.0(L) 0.3 - 6.2 % 08/28/2025 10:49 PM [facility] LAB[facility] Basophil % 0.0 0.0 - 1.5 % 08/28/2025 10:49 PM [facility] Bands % 23.0(H) 0.0 - 5.0 % 08/28/2025 10:49 PM [facility] LAB[facility] Atypical Lymphocyte % 1.0 0.0 - 5.0 % 08/28/2025 10:49 PM [facility] Neutrophils Absolute 26.36(H) 1.70 - 7.00 10*3/mm3 08/28/2025 10:49 PM [facility] Lymphocytes Absolute 3.00 0.70 - 3.10 10*3/mm3 08/28/2025 10:49 PM [facility] Monocytes Absolute 0.60 0.10 - 0.90 10*3/mm3 08/28/2025 10:49 PM [facility] Eosinophils Absolute 0.00 0.00 - 0.40 10*3/mm3 08/28/2025 10:49 PM [facility] Basophils Absolute 0.00 0.00 - 0.20 10*3/mm3 08/28/2025 10:49 PM [facility] RBC Morphology Normal Normal 08/28/2025 10:49 PM [facility] Dohle Bodies Present None Seen 08/28/2025 10:49 PM [facility] Platelet Morphology Normal Normal 08/28/2025 10:49 PM [facility] Blood Line / Unknown 08/28/2025 9: 55 AM EST 08/28/2025 10:09 AM EST Cristian Mckee DO LAB BLOOD ORDERABLE S Final Result [facility] LABORATORY
[address] [place] [address], * (ABNORMAL) CBC Auto Differential (08/28/2025 9:55 AM EST) WBC 29.95(HH) 3.40 - 10.80 10*3/mm3 08/28/2025 10:49 PM EST [facility] LABORAT[facility] RBC 2.33(L) 4.14 - 5.80 10*6/mm3 08/28/2025 10:49 PM EST [facility] LABORATORY Hemoglobin 7.2(L) 13.0 - 17.7 g/dL 08/28/2025 10:49 PM EST [facility] LABORATORY Hematocrit 23.2(L) 37.5 - 51.0 % 08/28/2025 10:49 PM EST [facility] LABORATORY MCV 99.6(H) 79.0 - 97.0 fL 08/28/2025 10:49 PM EST [facility] LABORATORY MCH 30.9 26.6 - 33.0 pg 08/28/2025 10:49 PM EST [facility] LABOR[facility] MCHC 31.0(L) 31.5 - 35.7 g/dL 08/28/2025 10:49 PM EST [facility] LABORATORY RDW 14.8 12.3 - 15.4 % 08/28/2025 10:49 PM EST [facility] LABORATORY RDW-SD 53.8 37.0 - 54.0 fl 08/28/2025 10:49 PM [facility] LABOR[facility] MPV 10.4 6.0 - 12.0 fL 08/28/2025 10:49 PM [facility] Platelets 137(L) 140 - 450 10*3/mm3 08/28/2025 10:49 PM [facility] LABOR[facility] Blood Line / Unknown 08/28/2025 9: 55 AM EST 08/28/2025 10:09 AM EST [facility] LABORATORY - 08/28/2025 10:49 PM EST The previously reported component NRBC is no longer being reported. Previous result was 0.0 /100 WBC (Reference Range: 0.0-0.2 /100 WBC) on 08/28/2025 at 2222 EST. Cristian Mckee DO LAB BLOOD ORDERABLE S Final Result Performing Organization Address City/[facility]/ZIP Co de Phone Number [facility] LABORATORY
[address] [place] [address], * (ABNORMAL) Hepatic Function Panel (08/28/2025 9:55 AM EST) [facility] Total Protein 5.2(L) 6.0 - 8.5 g/dL 08/28/2025 10:25 PM EST [facility] LABORAT[facility] Albumin 3.5 3.5 - 5.2 g/dL 08/28/2025 10:25 PM EST [facility] LAB[facility] ALT (SGPT) 234(H) 1 - 41 U/L 08/28/2025 10:25 PM EST [facility] LAB[facility] AST (SGOT) 259(H) 1 - 40 U/L 08/28/2025 10:25 PM EST [facility] LABOR[facility] Alkaline Phosphatase 71 39 - 117 U/L 08/28/2025 10:25 PM EST [facility] Total Bilirubin 0.8 0.0 - 1.2 mg/dL 08/28/2025 10:25 PM EST [facility] LABORATORY Bilirubin, Direct 0.6(H) 0.0 - 0.3 mg/dL 08/28/2025 10:25 PM EST [facility] LABORAT[facility] Bilirubin, Indirect 0.2 mg/dL 08/28/2025 10:25 PM [facility] Blood Line / Unknown 08/28/2025 9: 55 AM EST 08/28/2025 10:09 AM EST Brian Hughes MD LAB BLOOD ORDERABLES Final R esult Performing Organization Address City/[facility]/ZIP Co de Phone Number [facility] LABORATORY
[address] [place] [address], * (ABNORMAL) Lactic Acid, Plasma (08/28/2025 9:55 AM EST) Pathologist [facility] Lactate 10.4(HH) 0.5 - 2.0 mmol/L 08/28/2025 10:38 AM EST [facility] LABORATORY Comment:Falsely depressed re sults may occur on samples drawn from patients receiving N-Acetylcysteine (NAC) or Metamizole. Blood Line / Unknown 08/28/2025 9: 55 AM EST 08/28/2025 10:09 AM EST Hermes Jaramillo MD LAB BLOOD ORDERABLES Final Re sult [facility] LABORATORY
[address] [place] [address], * (ABNORMAL) CBC (No Diff) (08/28/2025 9:55 AM EST) Pathologist [facility] WBC 29.84(H) 3.40 - 10.80 10*3/mm3 08/28/2025 10:16 AM EST [facility] LAB[facility] RBC 2.82(L) 4.14 - 5.80 10*6/mm3 08/28/2025 10:16 AM [facility] LABOR[facility] Hemoglobin 8.3(L) 13.0 - 17.7 g/dL 08/28/2025 10:16 AM [facility] LAB[facility] Hematocrit 26.9(L) 37.5 - 51.0 % 08/28/2025 10:16 AM [facility] MCV 95.4 79.0 - 97.0 fL 08/28/2025 10:16 AM [facility] MCH 29.4 26.6 - 33.0 pg 08/28/2025 10:16 AM [facility] MCHC 30.9(L) 31.5 - 35.7 g/dL 08/28/2025 10:16 AM [facility] RDW 14.5 12.3 - 15.4 % 08/28/2025 10:16 AM EST [facility] LABORATORY RDW-SD 50.2 37.0 - 54.0 fl 08/28/2025 10:16 AM EST [facility] LABORATORY MPV 10.0 6.0 - 12.0 fL 08/28/2025 10:16 AM EST [facility] LABORAT[facility] Platelets 136(L) 140 - 450 10*3/mm3 08/28/2025 10:16 AM EST [facility] LAB[facility] Blood Line / Unknown 08/28/2025 9: 55 AM EST 08/28/2025 10:09 AM EST us Hermes Jaramillo MD LAB BLOOD ORDERABLES Final Re sult [facility] LABORATORY
[address] [place] [address], * (ABNORMAL) Basic Metabolic Panel (08/28/2025 9:55 AM EST) Glucose 112(H) 65 - 99 mg/dL 08/28/2025 10:35 AM [facility] BUN 31.2(H) 8.0 - 23.0 mg/dL 08/28/2025 10:35 AM [facility] Creatinine 1.72(H) 0.76 - 1.27 mg/dL 08/28/2025 10:35 AM EST [facility] Sodium 145 136 - 145 mmol/L 08/28/2025 10:35 AM EST [facility] Potassium 3.7 3.5 - 5.2 mmol/L 08/28/2025 10:35 AM [facility] Chloride 106 98 - 107 mmol/L 08/28/2025 10:35 AM EST [facility] CO2 18.3(L) 22.0 - 29.0 mmol/L 08/28/2025 10:35 AM EST [facility] LAB[facility] Calcium 9.2 8.6 - 10.5 mg/dL 08/28/2025 10:35 AM [facility] BUN/Creatinine Ratio 18.1 7.0 - 25.0 08/28/2025 10:35 AM EST [facility] Anion Gap 20.7(H) 5.0 - 15.0 mmol/L 08/28/2025 10:35 AM EST [facility] LAB[facility] eGFR 38.2(L) >60.0 mL/min/1.7 3 08/28/2025 10:35 AM EST [facility] LAB[facility] Blood Line / Unknown 08/28/2025 9: 55 AM EST 08/28/2025 10:09 AM EST Narrative [facility] LABORATORY - 08/28/2025 10:35 AM EST [...] MD LAB BLOOD ORDERABLES Final Re sult [facility] LABORATORY
[address] [place] [address], * POC Glucose Once (08/28/2025 9:34 AM EST) Glucose 99 70 - 130 mg/dL 08/28/2025 11:00 AM EST [facility] LAB[facility] Comment:Serial Number: [id number]: [id number] Blood 08/28/2025 9:34 AM EST 08/28/2025 11:00 AM EST Cristian Mckee DO POINT OF CARE TEST ORDERABLES Final Result [facility] LABORATORY
[address] [place] [address], * [place] Cholangiogram Operative (08/28/2025 8:46 AM EST) Anatomical Region Laterality Modality Abdomen, Other Radio Fluoroscop y 08/28/2025 3:22 PM EST Impressions 08/28/2025 3:24 PM EST Impression: Images saved during intraoperative cholangiogram, see operative report for further detail. Electronically Signed: Brian Crandall MD 08/28/2025 3:24 PM EST Workstation ID: [id number] Narrative 08/28/2025 3:24 PM EST [place] CHOLANGIOGRAM [...] MD 08/28/2025 3:24 PM EST Workstation ID: [id number] us Hermes Jaramillo MD IMG FLUOROSCOPY ORDERABLES Fi nal Result * (ABNORMAL) POC Surgery Labs (08/28/2025 8:43 AM EST) Ionized Calcium 1.35(H) 1.15 - 1.30 mmol/L 08/28/2025 9:41 AM EST [facility] LABOR[facility]ORY POC Potassium 3.5 3.5 - 4.9 mmol/L 08/28/2025 9:41 AM [facility] Sodium 142 138 - 146 mmol/L 08/28/2025 9:41 AM [facility] Total CO2 18(L) 24 - 29 mmol/L 08/28/2025 9:41 AM [facility] Hemoglobin 7.8(LL) 12.0 - 17.0 g/dL 08/28/2025 9:41 AM [facility] Hematocrit 23(L) 38 - 51 % 08/28/2025 9:41 AM [facility] pCO2, Arterial 44.8 35 - 45 mm Hg 08/28/2025 9:41 AM [facility] pO2, Arterial 340(H) 80 - 105 mmHg 08/28/2025 9:41 AM [facility] Comment:Serial Number: [id number] Base Excess -12.0000(L ) -5 - 5 mmol/L 08/28/2025 9:41 AM [facility] O2 Saturation, Arterial 100(H) 95 - 98 % 08/28/2025 9:41 AM [facility] pH, Arterial 7.18(L) 7.35 - 7.6 pH units 08/28/2025 9:41 AM [facility] HCO3, Arterial 16.5(L) 22 - 26 mmol/L 08/28/2025 9:41 AM [facility] Glucose 117 70 - 130 mg/dL 08/28/2025 9:41 AM EST [facility] Blood 08/28/2025 8:43 AM EST 08/28/2025 9:41 AM EST Cristian Mckee DO POINT OF CARE TEST ORDERABLES Final Result [facility]
[address] [place] [address], * Tissue Pathology Exam (08/28/2025 8:40 AM EST) Case Report Surgical Pathology Report Case: [id number] Authorizing Provider: Hermes Jaramillo MD Collected: 08/28/2025 08:40 AM Ordering Location: [facility] Received: 08/29/2025 07:43 AM OR Pathologist: Zach Arenas MD Specimen: Gallbladder, gallbladder 08/31/2025 10:47 AM EST [facility] LAB[facility] Clinical Information Cholecystitis 08/31/2025 10:47 AM EST [facility] Final Diagnosis GALLBLADDER, CHOLECYSTECTOMY: Chronic cholecystitis. Reactive epithelial changes present; negative for dysplasia. Portion of lymph node negative for malignancy. 08/31/2025 10:47 AM [facility] at 1047 EST Gross Description 1. [...] mucosal fold is present within the fundus. [employer] sections are submitted as follows: 1A-en face cystic duct margin, neck, body, and fundus with mucosal fold 1B-possible disrupted lymph node. LDP Additional sections are submitted in blocks 1C-1G. LDP 08/30/2025 08/31/2025 10:47 AM EST [facility] Microscopic Description The slides are reviewed and demonstrate histopathologic features supporting the above rendered diagnosis. 08/31/2025 10:47 AM EST [facility] Tissue Gallbladder structure / Unknown 08/28/2025 8:40 AM EST 08/29/2025 7:43 AM EST Hermes Jaramillo MD PATHOLOGY/CYTOLOGY ORDERABLES Final Result [facility] LAB[facility]ORY
[address] [place] [address], * (ABNORMAL) Blood Gas, Arterial With Co-Ox (08/28/2025 7:18 AM EST) Site Arterial Line 08/28/2025 7:21 AM [facility] RESPIRATORY THERAPY Andrey's Test N/A 08/28/2025 7:21 AM [facility] RESPIRATORY THERAPY pH, Arterial 7.273(L) 7.350 - 7.450 pH units 08/28/2025 7:21 AM [facility] RESPIRATORY THERAPY Comment:84 Value below refer ence range pCO2, Arterial 31.2(L) 35.0 - 45.0 mm Hg 08/28/2025 7:21 AM [facility] RESPIRATORY THERAPY Comment:84 Value below refer ence range pO2, Arterial 87.0 83.0 - 108.0 mm Hg 08/28/2025 7:21 AM [facility] RESPIRATORY THERAPY HCO3, Arterial 14.4(L) 20.0 - 26.0 mmol/L 08/28/2025 7:21 AM [facility] RESPIRATORY THERAPY Base Excess, Arterial -11.4(L) 0.0 - 2.0 mmol/L 08/28/2025 7:21 AM [facility] RESPIRATORY THERAPY Hemoglobin, Blood Gas 8.6(L) 13.5 - 17.5 g/dL 08/28/2025 7:21 AM [facility] RESPIRATORY THERAPY Comment:84 Value below refer ence range Hematocrit, Blood Gas 26.3(L) 38.0 - 51.0 % 08/28/2025 7:21 AM EST [facility] RESPIRATORY THERAPY Oxyhemoglobin 95.6 94 - 99 % 08/28/2025 7:21 AM EST [facility] RESPIRATORY THERAPY Methemoglobin 0.30 0.00 - 1.50 % 08/28/2025 7:21 AM [facility] RESPIRATORY THERAPY Carboxyhemoglobin 1.5 0 - 2 % 025 7:21 AM EST [facility] RESPIRATORY THERAPY CO2 Content 15.4(L) 22 - 33 mmol/L 08/28/2025 7:21 AM EST [facility] RESPIRATORY THERAPY Temperature 37.0 08/28/2025 7:21 AM [facility] RESPIRATORY THERAPY Barometric Pressure for Blood Gas 08/28/2025 7:21 AM [facility] RESPIRATORY THERAPY Comment:N/A Modality Nasal Cannula 08/28/2025 7:21 AM [facility] RESPIRATORY THERAPY FIO2 28 % 08/28/2025 7:21 AM [facility] RESPIRATORY THERAPY Ventilator Mode 7:21 AM [facility] RESPIRATORY THERAPY Comment:Meter: [id number] Geophysical Engineer: [id number] pH, Temp Corrected 7.273 pH Units 2024 7:21 AM [facility] RESPIRATORY THERAPY pCO2, Temperature Corrected 31.2(L) 35 - 48 mm Hg 08/28/2025 7:21 AM [facility] RESPIRATORY THERAPY pO2, Temperature Corrected 87.0 83 - 108 mm Hg 08/28/2025 7:21 AM [facility] RESPIRATORY THERAPY Arterial Blood 08/28/2025 7: 18 AM EST 08/28/2025 7:20 AM EST Linda Rubin MD LAB BLOOD ORDERABLES Final Resul t [facility] RESPIRATORY THERAPY
[address] [place] [address], * (ABNORMAL) POC Glucose Once (08/28/2025 7:07 AM EST) Glucose 147(H) 70 - 130 mg/dL 08/28/2025 7:09 AM EST [facility] Comment:Serial Number: [id number]: [id number] Blood 08/28/2025 7:07 AM EST 08/28/2025 7:09 AM EST Linda Rubin MD POINT OF CARE TEST ORDERABLES Fi nal Result [facility] LAB[facility]ATORY
[address] [place] [address], * Type & Screen (08/28/2025 6:38 AM EST) Pathologist [facility] ABO Type A 08/28/2025 7:40 AM EST [facility] BB LABORATORY RH type Positive 08/28/2025 7:40 AM EST [facility] BB LABORATORY Antibody Screen Negative 08/28/2025 7:40 AM [facility] BB LABORATORY T&S Expiration Date 08/31/2025 11:59:59 PM 08/28/2025 7:40 AM EST [facility] Blood Venipuncture / Unknown 08/28/2025 6:38 AM EST 08/28/2025 7:06 AM EST Alma Rosa Lucas APRN BLOOD BANK TEST ORDERABLES Edited Result - Final [facility] LABORATORY
[address] [place] [address], * Blood Culture - Blood, Blood, Arterial Line (08/28/2025 6:38 AM EST) Pathologist [facility] Blood Culture No growth at 5 days 09/02/2025 7:00 AM EST [facility] Blood Arterial blood specimen / Unknown Venipuncture / Unknown 08/28/2025 6:38 AM EST 08/28/2025 6:53 AM EST us Linda Rubin MD MICROBIOLOGY - GENERAL ORDERABLE S Final Result [facility] LAB[facility]ORY
[address] [place] [address], * ABO RH Specimen Verification (08/28/2025 6:13 AM EST) ABO Type A 08/28/2025 10:44 PM EST [facility] BB LABORATORY RH type Positive 08/28/2025 10:44 PM EST [facility] Blood Venipuncture / Unknown 08/28/2025 6:13 AM EST 08/28/2025 7:24 AM EST us Linda Rubin MD BLOOD BANK TEST ORDERABLES Final Result Performing Organization Address City/[facility] [[email or web address]] Co de Phone Number [facility]
[address] [place] [address], * (ABNORMAL) Manual Differential (08/28/2025 6:13 AM EST) Neutrophil % 58.0 42.7 - 76.0 % 08/28/2025 7:23 AM [facility] Lymphocyte % 2.0(L) 19.6 - 45.3 % 08/28/2025 7:23 AM [facility] Monocyte % 1.0(L) 5.0 - 12.0 % 08/28/2025 7:23 AM [facility] Eosinophil % 0.0(L) 0.3 - 6.2 % 08/28/2025 7:23 AM EST [facility] Basophil % 0.0 0.0 - 1.5 % 08/28/2025 7:23 AM EST [facility] Bands % 33.0(H) 0.0 - 5.0 % 08/28/2025 7:23 AM [facility] Metamyelocyte % 6.0(H) 0.0 - 0.0 % 08/28/2025 7:23 AM [facility] Neutrophils Absolute 38.34(H) 1.70 - 7.00 10*3/mm3 08/28/2025 7:23 AM [facility] Lymphocytes Absolute 0.84 0.70 - 3.10 10*3/mm3 08/28/2025 7:23 AM EST [facility] Monocytes Absolute 0.42 0.10 - 0.90 10*3/mm3 08/28/2025 7:23 AM [facility] Eosinophils Absolute 0.00 0.00 - 0.40 10*3/mm3 08/28/2025 7:23 AM [facility] Basophils Absolute 0.00 0.00 - 0.20 10*3/mm3 08/28/2025 7:23 AM [facility] nRBC 0.0 0.0 - 0.2 /100 WBC 08/28/2025 7:23 AM [facility] RBC Morphology Normal Normal 08/28/2025 7:23 AM [facility] WBC Morphology Normal Normal 08/28/2025 7:23 AM [facility] Platelet Morphology Normal Normal 08/28/2025 7:23 AM EST [facility] Blood Line / Unknown 08/28/2025 6: 13 AM EST 08/28/2025 6:32 AM EST Nesha Lopes ANTWON LAB BLOOD ORDERABLES Final Resul t [facility]
[address] [place] [address], * Fibrinogen (08/28/2025 6:13 AM EST) Fibrinogen 289 203 - 567 mg/dL 08/28/2025 7:24 AM EST [facility] Blood Line / Unknown 08/28/2025 6: 13 AM EST 08/28/2025 6:33 AM EST Alma Rosa Lucas APRN LAB BLOOD ORDERABLES Final Result Performing Organization Address [facility]/ZIP Co de Phone Number [facility]
[address] [place] [address], [place] [phone] * (ABNORMAL) Protime-INR (08/28/2025 6:13 AM EST) Protime 18.2(H) 12.2 - 15.3 Seconds 08/28/2025 6:55 AM EST [facility] [facility] INR 1.41(H) 0.89 - 1.12 08/28/2025 6:55 AM EST [facility] Blood Line / Unknown 08/28/2025 6: 13 AM EST 08/28/2025 6:33 AM EST Alma Rosa Lucas APRN LAB BLOOD ORDERABLES Final Result Performing Organization Address [facility] Phone Number [facility]
[address] [place] [address], [place] [phone] * (ABNORMAL) STAT Lactic Acid, Reflex (08/28/2025 6:13 AM EST) Lactate 11.6(HH) 0.5 - 2.0 mmol/L 08/28/2025 7:07 AM EST [facility] Comment:Falsely depressed re sults may occur on samples drawn from patients receiving N-Acetylcysteine (NAC) or Metamizole. Blood Line / Unknown 08/28/2025 6: 13 AM EST 08/28/2025 6:33 AM EST Edilma Mike MD LAB BLOOD ORDERABLES Final Re sult Performing Organization Address [facility]/ZIP Co de Phone Number [facility]
[address] [place] [address], [place] [phone] * (ABNORMAL) Lipase (08/28/2025 6:13 AM EST) Lipase 80(H) 13 - 60 U/L 08/28/2025 7:08 AM EST [facility] Blood Line / Unknown 08/28/2025 6: 13 AM EST 08/28/2025 6:33 AM EST Hermes Jaramillo MD LAB BLOOD ORDERABLES Final Re sult [facility]
[address] [place] [address], * (ABNORMAL) Comprehensive Metabolic Panel (08/28/2025 6:13 AM EST) Pathologist [facility] Glucose 67 65 - 99 mg/dL 08/28/2025 7:40 AM EST [facility] BUN 29.7(H) 8.0 - 23.0 mg/dL 08/28/2025 7:40 AM [facility] Creatinine 1.81(H) 0.76 - 1.27 mg/dL 08/28/2025 7:40 AM [facility] Sodium 147(H) 136 - 145 mmol/L 08/28/2025 7:40 AM [facility] Potassium 3.6 3.5 - 5.2 mmol/L 08/28/2025 7:40 AM [facility] Chloride 106 98 - 107 mmol/L 08/28/2025 7:40 AM [facility] CO2 15.5(L) 22.0 - 29.0 mmol/L 08/28/2025 7:40 AM [facility] Calcium 7.5(L) 8.6 - 10.5 mg/dL 08/28/2025 7:40 AM [facility] Total Protein 4.6(L) 6.0 - 8.5 g/dL 08/28/2025 7:40 AM [facility] Albumin 2.9(L) 3.5 - 5.2 g/dL 08/28/2025 7:40 AM [facility] ALT (SGPT) 235(H) 1 - 41 U/L 08/28/2025 7:40 AM [facility] AST (SGOT) 272(H) 1 - 40 U/L 08/28/2025 7:40 AM [facility] Alkaline Phosphatase 101 39 - 117 U/L 08/28/2025 7:40 AM [facility] Total Bilirubin 0.7 0.0 - 1.2 mg/dL 08/28/2025 7:40 AM [facility] Globulin 1.7 gm/dL 08/28/2025 7:40 AM [facility] Comment:Calculated Result A/G Ratio 1.7 g/dL 08/28/2025 7:40 AM [facility] BUN/Creatinine Ratio 16.4 7.0 - 25.0 08/28/2025 7:40 AM [facility] Anion Gap 25.5(H) 5.0 - 15.0 mmol/L 08/28/2025 7:40 AM [facility] eGFR 36.0(L) >60.0 mL/min/1.7 3 08/28/2025 7:40 AM [facility] Blood Line / Unknown 08/28/2025 6: 13 AM EST 08/28/2025 6:33 AM EST [facility] LABORATORY - 08/28/2025 7:40 AM EST [...] APRN LAB BLOOD ORDERABLES Final Resul t [facility]
[address] [place] [address], * (ABNORMAL) CBC Auto Differential (08/28/2025 6:13 AM EST) WBC 42.13(HH) 3.40 - 10.80 10*3/mm3 08/28/2025 7:23 AM EST [facility] RBC 3.05(L) 4.14 - 5.80 10*6/mm3 08/28/2025 7:23 AM EST [facility] Hemoglobin 9.2(L) 13.0 - 17.7 g/dL 08/28/2025 7:23 AM [facility] Hematocrit 28.9(L) 37.5 - 51.0 % 08/28/2025 7:23 AM [facility] MCV 94.8 79.0 - 97.0 fL 08/28/2025 7:23 AM EST [facility] MCH 30.2 26.6 - 33.0 pg 08/28/2025 7:23 AM [facility] MCHC 31.8 31.5 - 35.7 g/dL 08/28/2025 7:23 AM [facility] RDW 14.3 12.3 - 15.4 % 08/28/2025 7:23 AM [facility] RDW-SD 49.5 37.0 - 54.0 fl 08/28/2025 7:23 AM [facility] MPV 10.1 6.0 - 12.0 fL 08/28/2025 7:23 AM [facility] Platelets 183 140 - 450 10*3/mm3 08/28/2025 7:23 AM [facility] Blood Line / Unknown 08/28/2025 6: 13 AM EST 08/28/2025 6:32 AM EST [facility] LABORATORY - 08/28/2025 7:23 AM EST The previously reported component NRBC is no longer being reported. Previous result was 0.0 /100 WBC (Reference Range: 0.0-0.2 /100 WBC) on 08/28/2025 at 0709 EST. Nesha Lopes APRN LAB BLOOD ORDERABLES Final Resul t Performing Organization Address [facility] [[email or web address]] Co de Phone Number [facility]
[address] [place] [address], * (ABNORMAL) POC Glucose Once (08/28/2025 5:58 AM EST) [facility] Signature Glucose 69(L) 70 - 130 mg/dL 08/28/2025 6:00 AM EST [facility] Comment:Serial Number: [id number]: [id number] Blood 08/28/2025 5:58 AM EST 08/28/2025 6:00 AM EST Librado Bangura MD POINT OF CARE TEST ORDERABLES F inal Result Performing Organization Address City/[facility] [[email or web address]] Co de Phone Number [facility]
[address] [place] [address], * XR Chest 1 View (08/28/2025 5:35 AM EST) Anatomical Region Laterality Modality Body N/A Radiographic Radha ging 08/28/2025 5:44 AM EST Impressions 08/28/2025 5:45 AM EST Impression: Right internal jugular CVC catheter with the tip in the proximal SVC. No pneumothorax. No acute cardiopulmonary process. Electronically Signed: Nena Encarnacion MD 08/28/2025 5:45 AM EST Workstation ID: [id number] Narrative 08/28/2025 5:45 AM EST XR CHEST [...] MD 08/28/2025 5:45 AM EST Workstation ID: [id number] Alma Rosa Lucas APRN IMG DIAGNOSTIC IMAGING ORD ERABLES Final Result * MI ARTL CATHJ/CANNULJ MNTR/TRANSFUSION SPX PRQ, HC INSERTION ARTERIAL CATH (08/28/2025 5:20 AM EST) Narrative Alma Rosa Lucas APRN - 08/28/2025 5:20 AM EST Alma Rosa Lucas APRN 08/28/2025 5:21 AM Insert Arterial Line Date/Time: 08/28/2025 5:20 AM Performed by: Alma Rosa Lucas APRN Authorized by: Alma Rosa Lucas APRN [facility] Protocol: Verbal consent obtained?: Yes Risks and [...] time out verifies correct patient, procedure, equipment, network support manager and site/side marked as required: Preparation: Preparation: [...] IV THERAPY ORDERABLES Suzanna wright Result * MI INSJ NON-TUNNELED CENTRAL VENOUS CATH AGE 3 [...] to verify the correct patient, procedure, equipment, network support manager and site/side marked as required. Indications: vascular [...] EST) Site Nurse/Dr Draw 08/28/2025 2:22 AM [facility] THERAPY pH, Venous 7.299(L) 7.310 - 7.410 pH Units 08/28/2025 2:22 AM [facility] THERAPY pCO2, Venous 36.1(L) 41.0 - 51.0 mm Hg 08/28/2025 2:22 AM [facility]ERAP[facility] Comment:84 Value below refer ence range pO2, Venous 52.1 27.0 - 53.0 mm Hg 08/28/2025 2:22 AM [facility] THERAPY HCO3, Venous 17.7(L) 22.0 - 28.0 mmol/L 08/28/2025 2:22 AM [facility] THERAPY Base Excess, Venous -8.0(L) -2.0 - 2.0 mmol/L 08/28/2025 2:22 AM [facility] THERAPY Hemoglobin, Blood Gas 10.2(L) 13.5 - 17.5 g/dL 08/28/2025 2:22 AM [facility] THERAPY Oxyhemoglobin Venous 84.3 % 06/2025 2:22 AM [facility] THERAPY Methemoglobin Venous 0.5 % 06/2025 2:22 AM EST [facility]PIR[facility] THERAPY Carboxyhemoglobin Venous 1.4 % 08/28/2025 2:22 AM EST [facility]PIR[facility] THERAPY CO2 Content 18.8(L) 22 - 33 mmol/L 08/28/2025 2:22 AM EST [facility]PIR[facility] THERAPY Temperature 37.0 08/28/2025 2:22 AM [facility] THERAPY Barometric Pressure for Blood Gas 08/28/2025 2:22 AM [facility] THERAPY Comment:N/A Modality Nasal Cannula 08/28/2025 2:22 AM [facility] THERAPY FIO2 26 % 08/28/2025 2:22 AM [facility] THERAPY Rate 0 Breaths/ minute 08/28/2025 2:22 AM [facility] THERAPY PIP 0 cmH2O 08/28/2025 2:22 AM [facility] THERAPY Comment:Meter: [id number] Geophysical Engineer: [id number] IPAP 0 cm H2O 08/28/2025 2:22 AM [facility] THERAPY EPAP 0 cm H2O 08/28/2025 2:22 AM EST [facility]IR[facility] THERAPY Venous Blood 08/28/2025 2:22 AM EST 08/28/2025 2:22 AM EST Librado Bangura MD LAB BLOOD ORDERABLES Final Resu lt [facility] RESPIR[facility] THERAPY
[address] [place] [address], * ECG 12 Lead Rhythm Change (08/28/2025 [...] Lucas APRN ECG ORDERABLES Final Resu lt BH ECG * Blood Culture - Blood, Hand, Left (08/28/2025 1:45 AM EST) Blood Culture No growth at 5 days 09/02/2025 6:45 AM EST [facility] Blood Structure of left hand / Unknown Venipuncture / Unknown 08/28/2025 1:45 AM EST 08/28/2025 6:42 AM EST us Linda Rubin MD MICROBIOLOGY - GENERAL ORDERABLE S Final Result [facility]
[address] [place] [address], * (ABNORMAL) Basic Metabolic Panel (08/28/2025 1:35 AM EST) Glucose 78 65 - 99 mg/dL 08/28/2025 2:25 AM EST [facility] BUN 25.7(H) 8.0 - 23.0 mg/dL 08/28/2025 2:25 AM EST [facility] Creatinine 1.85(H) 0.76 - 1.27 mg/dL 08/28/2025 2:25 AM EST [facility] Sodium 143 136 - 145 mmol/L 08/28/2025 2:25 AM EST [facility] Potassium 3.7 3.5 - 5.2 mmol/L 08/28/2025 2:25 AM EST [facility] Chloride 106 98 - 107 mmol/L 08/28/2025 2:25 AM EST [facility] CO2 17.9(L) 22.0 - 29.0 mmol/L 08/28/2025 2:25 AM EST [facility] Calcium 7.6(L) 8.6 - 10.5 mg/dL 08/28/2025 2:25 AM EST [facility] BUN/Creatinine Ratio 13.9 7.0 - 25.0 08/28/2025 2:25 AM EST [facility] Anion Gap 19.1(H) 5.0 - 15.0 mmol/L 08/28/2025 2:25 AM EST [facility] eGFR 35.0(L) >60.0 mL/min/1.7 3 08/28/2025 2:25 AM EST [facility] Blood Line / Unknown 08/28/2025 1: 35 AM EST 08/28/2025 1:53 AM EST [facility] LABORATORY - 08/28/2025 2:25 AM [...] ORDERABLES Final Resul t Performing Organization Address City/[facility]/ZIP Co de Phone Number [facility]
[address] [place] [address], * (ABNORMAL) STAT Lactic Acid, Reflex (08/28/2025 1:35 AM EST) Lactate 8.0(HH) 0.5 - 2.0 mmol/L 08/28/2025 2:38 AM EST [facility] Comment:Falsely depressed re sults may occur on samples drawn from patients receiving N-Acetylcysteine (NAC) or Metamizole. Blood Line / Unknown 08/28/2025 1: 35 AM EST 08/28/2025 1:53 AM EST Edilma Mike MD LAB BLOOD ORDERABLES Final Re sult Performing Organization Address [facility]/ZIP Co de Phone Number [facility]
[address] [place] [address], * Magnesium (08/28/2025 1:35 AM EST) Magnesium 1.8 1.6 - 2.4 mg/dL 08/28/2025 2:25 AM EST [facility] Blood Line / Unknown 08/28/2025 1: 35 AM EST 08/28/2025 1:53 AM EST us Linda Rubin MD LAB BLOOD ORDERABLES Final Resul t [facility]
[address] [place] [address], * POC Glucose Once (08/27/2025 11:12 PM EST) Pathologist [facility] Glucose 97 70 - 130 mg/dL 08/27/2025 11:14 PM EST [facility] Comment:Serial Number: [id number]: [id number] Blood 08/27/2025 11:1 2 PM EST 08/27/2025 11:14 PM EST Librado Bangura MD POINT OF CARE TEST ORDERABLES F inal Result Performing Organization Address City/[facility] [[email or web address]] Co de Phone Number [facility]
[address] [place] [address], * (ABNORMAL) Blood Gas, Arterial With Co-Ox (08/27/2025 10:48 PM EST) Site Left Brachial 08/27/2025 10:49 PM EST [facility]IR[facility] THERAPY Andrey's Test Positive 08/27/2025 10:49 PM EST [facility] THERAPY pH, Arterial 7.278(L) 7.350 - 7.450 pH units 08/27/2025 10:49 PM EST [facility] THERAPY Comment:84 Value below refer ence range pCO2, Arterial 32.9(L) 35.0 - 45.0 mm Hg 08/27/2025 10:49 PM EST [facility] THERAPY Comment:84 Value below refer ence range pO2, Arterial 67.0(L) 83.0 - 108.0 mm Hg 08/27/2025 10:49 PM EST [facility] THERAPY Comment:84 Value below refer ence range HCO3, Arterial 15.4(L) 20.0 - 26.0 mmol/L 08/27/2025 10:49 PM EST [facility]PIR[facility] THERAPY Base Excess, Arterial -10.4(L) 0.0 - 2.0 mmol/L 08/27/2025 10:49 PM [facility] THERAPY Hemoglobin, Blood Gas 10.5(L) 13.5 - 17.5 g/dL 08/27/2025 10:49 PM [facility] THERAPY Comment:84 Value below refer ence range Hematocrit, Blood Gas 32.2(L) 38.0 - 51.0 % 08/27/2025 10:49 PM [facility] THERAPY Oxyhemoglobin 91.0(L) 94 - 99 % 08/27/2025 10:49 PM [facility] THERAPY Comment:84 Value below refer ence range Methemoglobin 0.30 0.00 - 1.50 % 08/27/2025 10:49 PM [facility] THERAPY Carboxyhemoglobin 1.4 0 - 2 % 025 10:49 PM [facility] THERAP[facility] CO2 Content 16.4(L) 22 - 33 mmol/L 08/27/2025 10:49 PM [facility] THERAPY Temperature 37.0 08/27/2025 10:49 PM [facility] THERAPY Barometric Pressure for Blood Gas 08/27/2025 10:49 PM [facility] THERAPY Comment:N/A Modality Room Air 08/27/2025 10:49 PM [facility] THERAPY FIO2 21 % 08/27/2025 10:49 PM [facility] THERAP[facility] Rate 0 Breaths/ minute 08/27/2025 10:49 PM [facility] THERAPY PIP 0 cmH2O 08/27/2025 10:49 PM [facility] THERAPY Comment:Meter: [id number] Geophysical Engineer: [id number] IPAP 0 cm H2O 08/27/2025 10:49 PM [facility] THERAP[facility] EPAP 0 cm H2O 08/27/2025 10:49 PM [facility] THERAPY pH, Temp Corrected 7.278 pH Units 2024 10:49 PM [facility] THERAPY pCO2, Temperature Corrected 32.9(L) 35 - 48 mm Hg 08/27/2025 10:49 PM EST [facility] THERAPY pO2, Temperature Corrected 67.0(L) 83 - 108 mm Hg 08/27/2025 10:49 PM EST [facility] THERAPY Arterial Blood 08/27/2025 10 :48 PM EST 08/27/2025 10:48 PM EST us Librado Bangura MD LAB BLOOD ORDERABLES Final Resu lt [facility] RESPIR[facility] THERAPY
[address] [place] [address], * Magnesium (08/27/2025 10:34 PM EST) Pathologist [facility] Magnesium 1.9 1.6 - 2.4 mg/dL 08/28/2025 1:51 AM [facility] Blood Venipuncture / Unknown 08/27/2025 10:34 PM EST 08/27/2025 11:26 PM EST Linda Rubin MD LAB BLOOD ORDERABLES Final Resul t Performing Organization Address City/[facility] [[email or web address]] Co de Phone Number [facility]
[address] [place] [address], * Hepatitis Panel, Acute (08/27/2025 10:34 PM EST) Pathologist [facility] Hepatitis B Surface Ag Non-Reacti ve Non-Reacti ve 08/28/2025 12:05 AM [facility] Hep A IgM Non-Reacti ve Non-Reacti ve 08/28/2025 12:05 AM [facility] Hep B C IgM Non-Reacti ve Non-Reacti ve 08/28/2025 12:05 AM [facility] Hepatitis C Ab Non-Reacti ve Non-Reacti ve 08/28/2025 12:05 AM [facility] Blood Venipuncture / Unknown 08/27/2025 10:34 PM EST 08/27/2025 11:26 PM EST [facility] LABORATORY - 08/28/2025 12:05 AM EST Results may be falsely decreased if patient taking Biotin. Hermes Jaramillo MD LAB BLOOD ORDERABLES Final Re sult Performing Organization Address [facility]/ZIP Co de Phone Number [facility]
[address] [place] [address], * (ABNORMAL) High Sensitivity Troponin T 1Hr (08/27/2025 10:34 PM EST) HS Troponin T 34(H) <22 ng/L 08/27/2025 11:53 PM EST [facility] Troponin T Numeric Delta -5 ng/L 08/27/2025 11:53 PM EST [facility] Troponin T % Delta -13 Abnormal if >/= 20% 08/27/2025 11:53 PM EST [facility] Blood Venipuncture / Unknown 08/27/2025 10:34 PM EST 08/27/2025 11:26 PM EST [facility] LABORATORY - 08/27/2025 11:53 PM [...] ORDERABLES Final Resul t Performing Organization Address [facility]/ZIP Co de Phone Number [facility]
[address] [place] [address], * (ABNORMAL) STAT Lactic Acid, Reflex (08/27/2025 10:34 PM EST) Lactate 7.6(HH) 0.5 - 2.0 mmol/L 08/28/2025 12:35 AM EST [facility] Comment:Falsely depressed re sults may occur on samples drawn from patients receiving N-Acetylcysteine (NAC) or Metamizole. Blood Venipuncture / Unknown 08/27/2025 10:34 PM EST 08/27/2025 11:26 PM EST Edilma Mike MD LAB BLOOD ORDERABLES Final Re sult [facility]
[address] [place] [address], * CT Abdomen Pelvis Without Contrast (08/27/2025 [...] MD 08/27/2025 10:25 PM EST Workstation ID: [id number] Narrative 08/27/2025 10:[address] ABDOMEN [...] MD 08/27/2025 10:25 PM EST Workstation ID: [id number] us Hermes Jaramillo MD IMG CT ORDERABLES [...] - 158 mcg/dL 08/27/2025 10:04 PM EST [facility] Iron Saturation (TSAT) 28 20 - 50 % 08/27/2025 10:04 PM EST [facility] Transferrin 209 200 - 360 mg/dL 08/27/2025 10:04 PM EST [facility] TIBC 311 298 - 536 mcg/dL 08/27/2025 10:04 PM EST [facility] Ferritin 160.00 30.00 - 400.00 ng/mL 08/27/2025 10:04 PM EST [facility] Blood Venipuncture / Unknown 08/27/2025 7:43 PM EST 08/27/2025 7:53 PM EST [facility] LABORATORY - 08/27/2025 10:04 PM EST Results may be falsely decreased if patient taking Biotin. Librado Bangura MD LAB BLOOD ORDERABLES Final Resu lt Performing Organization Address City/[facility]/ZIP Co de Phone Number [facility]
[address] [place] [address], * (ABNORMAL) High Sensitivity Troponin T (08/27/2025 7:43 PM EST) HS Troponin T 39(H) <22 ng/L 08/27/2025 8:56 PM EST [facility] Blood Venipuncture / Unknown 08/27/2025 7:43 PM EST 08/27/2025 7:53 PM EST [facility] LABORATORY - 08/27/2025 8:56 PM [...] ORDERABLES Final Resul t Performing Organization Address City/[facility]/ZIP Co de Phone Number [facility]
[address] [place] [address], * (ABNORMAL) CBC Auto Differential (08/27/2025 7:43 PM EST) [facility] WBC 15.69(H) 3.40 - 10.80 10*3/mm3 08/27/2025 7:56 PM EST [facility] RBC 3.66(L) 4.14 - 5.80 10*6/mm3 08/27/2025 7:56 PM [facility] Hemoglobin 11.1(L) 13.0 - 17.7 g/dL 08/27/2025 7:56 PM [facility] Hematocrit 34.2(L) 37.5 - 51.0 % 08/27/2025 7:56 PM [facility] MCV 93.4 79.0 - 97.0 fL 08/27/2025 7:56 PM [facility] MCH 30.3 26.6 - 33.0 pg 08/27/2025 7:56 PM [facility] MCHC 32.5 31.5 - 35.7 g/dL 08/27/2025 7:56 PM [facility] RDW 13.5 12.3 - 15.4 % 08/27/2025 7:56 PM [facility] RDW-SD 46.2 37.0 - 54.0 fl 08/27/2025 7:56 PM [facility] MPV 9.2 6.0 - 12.0 fL 08/27/2025 7:56 PM [facility] Platelets 171 140 - 450 10*3/mm3 08/27/2025 7:56 PM [facility] Neutrophil % 93.0(H) 42.7 - 76.0 % 08/27/2025 7:56 PM [facility] Lymphocyte % 2.7(L) 19.6 - 45.3 % 08/27/2025 7:56 PM [facility] Monocyte % 3.1(L) 5.0 - 12.0 % 08/27/2025 7:56 PM [facility] Eosinophil % 0.0(L) 0.3 - 6.2 % 08/27/2025 7:56 PM [facility] Basophil % 0.2 0.0 - 1.5 % 08/27/2025 7:56 PM [facility] Immature Grans % 1.0(H) 0.0 - 0.5 % 08/27/2025 7:56 PM [facility] Neutrophils, Absolute 14.59(H) 1.70 - 7.00 10*3/mm3 08/27/2025 7:56 PM [facility] Lymphocytes, Absolute 0.43(L) 0.70 - 3.10 10*3/mm3 08/27/2025 7:56 PM [facility] Monocytes, Absolute 0.49 0.10 - 0.90 10*3/mm3 08/27/2025 7:56 PM [facility] Eosinophils, Absolute 0.00 0.00 - 0.40 10*3/mm3 08/27/2025 7:56 PM [facility] Basophils, Absolute 0.03 0.00 - 0.20 10*3/mm3 08/27/2025 7:56 PM [facility] Immature Grans, Absolute 0.15(H) 0.00 - 0.05 10*3/mm3 08/27/2025 7:56 PM [facility] nRBC 0.0 0.0 - 0.2 /100 WBC 08/27/2025 7:56 PM [facility] Blood Venipuncture / Unknown 08/27/2025 7:43 PM EST 08/27/2025 7:53 PM EST us Edilma Mike MD LAB BLOOD ORDERABLES Final Re sult [facility]
[address] [place] [address], * (ABNORMAL) Lipase (08/27/2025 7:43 PM EST) Lipase 576(H) 13 - 60 U/L 08/27/2025 8:34 PM EST [facility] Blood Venipuncture / Unknown 08/27/2025 7:43 PM EST 08/27/2025 7:53 PM EST Edilma Mike MD LAB BLOOD ORDERABLES Final Re sult Performing Organization Address [facility] de Phone Number [facility]
[address] [place] [address], * (ABNORMAL) Lactic Acid, Plasma (08/27/2025 7:43 PM EST) Lactate 7.2(HH) 0.5 - 2.0 mmol/L 08/27/2025 8:22 PM EST [facility] Comment:Falsely depressed re sults may occur on samples drawn from patients receiving N-Acetylcysteine (NAC) or Metamizole. Blood Venipuncture / Unknown 08/27/2025 7:43 PM EST 08/27/2025 7:53 PM EST Edilma Mike MD LAB BLOOD ORDERABLES Final Re sult Performing Organization Address [facility] [facility] [[email or web address]] Co de Phone Number [facility]
[address] [place] [address], [place] [phone] * (ABNORMAL) Procalcitonin (08/27/2025 7:43 PM EST) Procalcitonin 68.30(H) 0.00 - 0.25 ng/mL 08/27/2025 8:23 PM EST [facility] Blood Venipuncture / Unknown 08/27/2025 7:43 PM EST 08/27/2025 7:53 PM EST Narrative [facility] - 08/27/2025 8:23 PM EST [...] Day 4 values are available. Refer to http://[email or web address]-ugd-[email or web address] Change in PCT <=80% A decrease of [...] MD LAB BLOOD ORDERABLES Final Re sult [facility]
[address] [place] [address], * (ABNORMAL) Comprehensive Metabolic Panel (08/27/2025 7:43 PM EST) [facility] Signature Glucose 110(H) 65 - 99 mg/dL 08/27/2025 8:23 PM EST [facility] BUN 20.6 8.0 - 23.0 mg/dL 08/27/2025 8:23 PM EST [facility] Creatinine 1.49(H) 0.76 - 1.27 mg/dL 08/27/2025 8:23 PM EST [facility] Sodium 143 136 - 145 mmol/L 08/27/2025 8:23 PM EST [facility] Potassium 3.5 3.5 - 5.2 mmol/L 08/27/2025 8:23 PM EST [facility] Chloride 110(H) 98 - 107 mmol/L 08/27/2025 8:23 PM [facility] CO2 15.6(L) 22.0 - 29.0 mmol/L 08/27/2025 8:23 PM [facility] Calcium 8.1(L) 8.6 - 10.5 mg/dL 08/27/2025 8:23 PM [facility] Total Protein 5.4(L) 6.0 - 8.5 g/dL 08/27/2025 8:23 PM [facility] Albumin 3.4(L) 3.5 - 5.2 g/dL 08/27/2025 8:23 PM [facility] ALT (SGPT) 275(H) 1 - 41 U/L 08/27/2025 8:23 PM [facility] AST (SGOT) 456(H) 1 - 40 U/L 08/27/2025 8:23 PM [facility] Alkaline Phosphatase 106 39 - 117 U/L 08/27/2025 8:23 PM [facility] Total Bilirubin 1.0 0.0 - 1.2 mg/dL 08/27/2025 8:23 PM [facility] Globulin 2.0 gm/dL 08/27/2025 8:23 PM [facility] Comment:Calculated Result A/G Ratio 1.7 g/dL 08/27/2025 8:23 PM [facility] BUN/Creatinine Ratio 13.8 7.0 - 25.0 08/27/2025 8:23 PM [facility] Anion Gap 17.4(H) 5.0 - 15.0 mmol/L 08/27/2025 8:23 PM [facility] eGFR 45.4(L) >60.0 mL/min/1.7 3 08/27/2025 8:23 PM [facility] Blood Venipuncture / Unknown 08/27/2025 7:43 PM EST 08/27/2025 7:53 PM [facility] - 08/27/2025 8:23 PM EST [...] not include race as a factor Result [facility] Edilma Mike MD LAB BLOOD ORDERABLES Final Re sult [facility]
[address] [id number], * LABS SCANNED (08/27/2025) Result [facility] LAB BLOOD ORDERABLES Final Re sult * IMAGING SCANNED (08/27/2025) Anatomical Region Laterality Modality Radiographic Radha ging Result [facility] IMG DIAGNOSTIC IMAGING ORDERA BLES Final Result * IMAGING SCANNED (08/27/2025) Anatomical Region Laterality Modality Radiographic Radha ging Result [facility] IMG DIAGNOSTIC IMAGING ORDERA BLES Final Result * IMAGING SCANNED (08/27/2025) Anatomical Region Laterality Modality Radiographic Radha ging Result [facility] IMG DIAGNOSTIC IMAGING ORDERA BLES [...] Times Daily - RT, First dose on [place] 08/28/25 at 0145, Include Respiratory Treatment Education [...] Times Daily - RT, First dose on [place] 08/28/25 at 1045, Do not shake. Protect from light. Given 09/04/2025 10:51 PM EST 0.5 mg Given 09/04/2025 8:33 AM EST 0.5 mg Given 09/03/2025 9:00 PM EST 0.5 mg bupivacaine-EPINEPHrine PF (MARCAINE w/EPI) 0.25% -[id number] injection As Needed, Starting on 08/28/25 at 0835 Given 08/28/2025 8:35 AM EST [...] for injection by adding 1 mL of paper inspector-supplied sterile diluent or sterile water for injection to a vial containing 1 mg of the drug, to provide solutions containing 1 mg/mL. Shake vial gently to dissolve. heparin (porcine) 5000 UNIT/ML injection 5,000 Units 5,000 Units, Subcutaneous, Every 8 Hours Scheduled, First dose on Fri08/28/25 at 1400, Indications: VTE ProphylaxisIndications:VTE Prophylaxis Given [...] tablet 40 mg 40 mg, Oral, Every Helmet Hat Brim Cutter, First dose on 09/04/25 at 0600, Do [...] refrigerated. 0745 (Given - Provider: Vanessa Vale, DIETITIAN)0930 (Canceled Entry - Provider: Vanessa Vale, DIETITIAN)2055 (Given - Provider: Monse Paul, DIETITIAN) 0833 (Given - Provider: Socorro Potts, DIETITIAN)2251 (Given - Provider: Raffaele Costa, DIETITIAN) 0954 (Not Given - Provider: Kalani David, DIETITIAN - Reason: Patient not available) barium sulfate (VARIBAR PUDDING) oral paste 20 mL (COMPLETED) 20 mL, Oral, Once in Imaging, On Fri09/05/25 at 1000, For 1 dose, ([facility]) Shake well before administration. 0905 (Given - Provider: Sammi Nicolas) barium sulfate (VARIBAR THIN LIQUID) oral suspension 100 mL (COMPLETED) 100 mL, Oral, Once in Imaging, On Fri09/05/25 at 1000, For 1 dose, ([facility]) Shake well before administration. 0905 (Given - Provider: Sammi Nicolas) barium sulfate oral suspension 10 mL (COMPLETED) 10 mL, Oral, Once in Imaging, On Fri09/05/25 at 1000, For 1 dose, ([facility]) Shake well before administration. 0905 (Given - Provider: Sammi Nicolas) budesonide (PULMICORT) nebulizer solution 0.5 mg 0.5 mg, Nebulization, 2 Times Daily - RT, First dose on 08/28/25 at 1045, Do not shake. Protect from light. 0745 (Given - Provider: Vanessa Vale, DIETITIAN)0930 (Canceled Entry - Provider: Vanessa Vale, DIETITIAN)2100 (Given - Provider: Monse Paul, DIETITIAN) 0833 (Given - Provider: Socorro Potts, DIETITIAN)225 (Given - Provider: Raffaele Costa, DIETITIAN) 0954 (Not Given - Provider: Kalani David, DIETITIAN - Reason: Patient not available) furosemide (LASIX) [...] RN)212 (Given - Provider: Lana Boyd, RN) 0511 (Given - Provider: Lana Boyd RN)1413 (Given - Provider: Velvet Torres RN)212 (Given - Provider: Lana Boyd, RN) 0632 (Given - Provider: Lana Boyd, [...] Boyd RN) 2126 (Given - Provider: Lana Boyd, BECCA) pantoprazole (PROTONIX) EC tablet 40 mg 40 mg, Oral, Every Helmet Hat Brim Cutter, First dose on 09/04/25 at 0600, Do [...] 40 mg (CANCELED) 40 mg, Intravenous, Every Helmet Hat Brim Cutter, First dose on 08/29/25 at 0645, Dilute [...] or Unable To Safely Swallow, Starting on [place] 08/28/25 at 0623 glucagon (GLUCAGEN) injection 1 mg 1 mg, Subcutaneous, Every 15 Minutes PRN, Low Blood Sugar, Blood Glucose Less Than 70 - Patient Without IV Access - Unresponsive, NPO or Unable To Safely Swallow, Starting on Fri08/28/25 at 0623, Reconstitute powder for injection by adding 1 mL of paper inspector-supplied sterile diluent or sterile water for injection [...] BPA Driven Protocol Open Order & Select [facility] Electrolyte Replacement Protocol Algorithm to View Details [...] BPA Driven Protocol Open Order & Select [facility] Electrolyte Replacement Protocol Algorithm to View Details [...] BPA Driven Protocol Open Order & Select [facility] Electrolyte Replacement Protocol Algorithm to View Details [...] ineffective. documented in this encounter Care Teams Assistant Printer Floor Covering Relationship Specialty Start Date End Date Provider, [place] [address] PCP - General 08/27/25 08/28/25 documented as of this encounter
--- OUTSIDE RECORDS SUMMARY | 2025-08-31 08:50 | XMS_ITS | Encounter Summary ---
[facility] Organization [facility] Address [address] [place] [address] Care Team Providers Care English As A Second Language Teacher Name Role Phone Lisa Arreola APRN Primary Care Provider [phone] Reason for Visit * Auth/Cert Specialty Diagnoses / Procedures Referred By Jorge t Referred To Contact Diagnoses Pancreatitis (pancreatitis) Referral ID Status Reason Start Date Expiration Date Visits Re quested Visits Authorized [id number] 1 1 Encounter Details Date Type Department Care Team (Late st Contact Info) Description 08/31/2025 8:50 AM EST Ancillary Procedure [facility] IP SPEECH PATH [address] [place] [phone] Social History Tobacco Use Types Packs/Day Years [...] and heating? Not hard at all 08/29/2025 [facility] [place] of Occupat ional Health - Occupational Stress [...] things needed for daily living? No 08/29/2025 [facility] Utilities Answer Date Recorded In the past 12 months has [employer] electric, gas, oil, or water company threatened [...] GED or equivalent No 08/29/2025 Preferred Language British 08/29/2025 PHQ-2 Answer Date Recorded Patient Health Questionnaire-2 Score 0 08/29/2025 Sex and Gender Information Value Date Recorded Sex Assigned at Not on file Legal Sex Male 3:02 PM EST Gender Identity Not on file Sexual Orientation Not on file documented as of this encounter Plan of Treatment Upcoming Encounters Date Type Department Care Team (Late st Contact Info) Description 10/05/2025 8:30 AM EST Office Visit [facility] GENERAL SURGERY [address] [facility] [address] [place] [address] Hermes Jaramillo MD [address] [facility] [address] [place] [address] documented as of this encounter Procedures Procedure Name Priority Date/Time Associated Diagnosis Comments HORSE RACE TIMER FEES FIBEROPTIC ENDO EVAL SWALLOW Routine 08/31/2025 9:23 AM EST documented in this encounter Results * HORSE RACE TIMER FEES - Fiberoptic Endo Eval Swallow (08/31/2025 9:23 AM EST) Narrative SYSTEMGENERATED, DOCUMENTATION - 08/31/2025 9:23 AM EST This procedure was auto-finalized with no dictation required. us Brian Hughes MD HORSE RACE TIMER ORDERABLES Final Result documented in this encounter Visit Diagnoses Not on filedocumented in this encounter Care Teams English As A Second Language Teacher Relationship Specialty Start Date End Date Lisa Arreola APRN [address] [place] [address] PCP - General Nurse Practitioner 08/29/25 documented as of this encounter
--- OUTSIDE RECORDS SUMMARY | 2025-09-06 08:58 | XMS_ITS | Encounter Summary ---
Author Organization [facility] [place] [address] Care Team Providers Care Format Proofreader Name Role Phone Unavailable Primary Care Provider Unavailabl e Encounter Details Date Type Department Care Team (Latest Contact Info) Description 09/06/2025 8:58 AM EST - 09/06/2025 11:59 PM EST Hospital Encounter [facility] Referral Lab [address] [place] [address] Wilbur Dominique MD [address] [phone] Discharge Disposition: Home or Self Care Social History Tobacco Use Types Packs/Day Years Used Date Smoking Tobacco: Never Assessed Sex and Gender Information Value Date Recorded Sex Assigned at Not on file Legal Sex Male 5:08 AM EDT Gender Identity Not on file Sexual Orientation Not on file documented as of this encounter Discharge Disposition Disposition Code Departure Means Destination Home or Self Care documented in this encounter Plan of Treatment Not on file documented as of this encounter Procedures Procedure Name Priority Date/Time Associated Diagnosis Comments CBC WITH DIFF Routine 09/06/2025 5:00 AM EST MAGNESIUM LEVEL Routine 09/06/2025 5:00 AM EST BASIC METABOLIC PANEL Routine 09/06/2025 5:00 AM EST documented in this encounter Results * (ABNORMAL) MAGNESIUM LEVEL (09/06/2025 5:00 AM EST) Magnesium 2.6(H) 1.6 - 2.4 mg/dL 09/06/2025 9:23 AM EST [facility] Blood VENOUS BLOOD / Unknown Venipuncture / Unknown 09/06/2025 5:00 AM EST 09/06/2025 8:59 AM EST Wilbur Dominique MD CHEMISTRY ORDERABLES Fi nal Result [facility] [address] [facility], [place] [address] * (ABNORMAL) BASIC METABOLIC PANEL (09/06/2025 5:00 AM EST) Sodium 142 136 - 145 mmol/L 09/06/2025 9:23 AM EST [facility] Potassium 4.1 3.5 - 5.0 mmol/L 09/06/2025 9:23 AM EST [facility] Chloride 110(H) 98 - 107 mmol/L 09/06/2025 9:23 AM EST [facility] Total CO2 23 22 - 29 mmol/L 09/06/2025 9:23 AM EST [facility] Anion Gap 9 7 - 16 mmol/L 09/06/2025 9:23 AM EST [facility] Calcium 7.3(L) 8.8 - 10.4 mg/dL 09/06/2025 9:23 AM EST [facility] Glucose Lvl 93 70 - 99 mg/dL 09/06/2025 9:23 AM EST [facility] BUN 18 8 - 23 mg/dL 09/06/2025 9:23 AM EST [facility] Creatinine 0.93 0.67 - 1.30 mg/dL 09/06/2025 9:23 AM EST [facility] eGFR (CKD-EPIcr 2020) 80 >=60 mL/min/1.7 3 m2 09/06/2025 9:23 AM EST [facility] Comment:Estimated GFR was ca lculated using the CKD-EPIcr (2020) equation refit without race. The equation is recommended by the National Kidney Foundation - [place] [employer] of Nephrology Task Force. Blood VENOUS BLOOD / Unknown Venipuncture / Unknown 09/06/2025 5:00 AM EST 09/06/2025 8:59 AM EST us Wilbur Dominique MD CHEMISTRY ORDERABLES Fi nal Result [facility] [address] [facility] , [place] [address] * (ABNORMAL) CBC WITH DIFF (09/06/2025 5:00 AM EST) WBC 11.2(H) 3.7 - 10.3 x10(3)/mcL 09/06/2025 10:32 AM EST [facility] RBC 2.81(L) 4.60 - 6.10 x10(6)/mcL 09/06/2025 10:32 AM EST [facility] Hgb 8.3(L) 13.7 - 17.5 g/dL 09/06/2025 10:32 AM EST [facility] Hct 27.2(L) 40.0 - 51.0 % 09/06/2025 10:32 AM EST [facility] MCV 96.8 80.0 - 100.0 fL 09/06/2025 10:32 AM EST [facility] MCH 29.5 26.0 - 34.0 pg 09/06/2025 10:32 AM EST [facility] MCHC 30.5(L) 30.7 - 35.5 g/dL 09/06/2025 10:32 AM EST [facility] RDW 14.8 <=14.9 % 09/06/2025 10:32 AM EST [facility] Platelet 218 155 - 369 x10(3)/mcL 09/06/2025 10:32 AM EST [facility] MPV 11.3 8.8 - 12.5 fL 09/06/2025 10:32 AM EST [facility] Segs 62 % 09/06/2025 10:32 AM EST [facility] Lymphs 24 % 09/06/2025 10:32 AM EST [facility] Monos 7 % 09/06/2025 10:32 AM EST [facility] Eos 5 % 09/06/2025 10:32 AM EST [facility] Baso 0 % 09/06/2025 10:32 AM EST [facility] Myelo 2 % 09/06/2025 10:32 AM EST [facility] Neut # 6.9(H) 1.6 - 6.1 x10(3)/[facility] 09/06/2025 10:32 AM EST [facility] Lymph # 2.7 1.2 - 3.9 x10(3)/[facility] 09/06/2025 10:32 AM EST [facility] Ada # 0.8 0.3 - 0.9 x10(3)/[facility] 09/06/2025 10:32 AM EST [facility] Eos # Manual 0.6(H) 0.0 - 0.5 x10(3)/[facility] 09/06/2025 10:32 AM EST [facility] Baso # Manual 0.0 0.0 - 0.1 x10(3)/[facility] 09/06/2025 10:32 AM EST [facility] Myelo # 0.2 x10(3)/[facility] 09/06/2025 10:32 AM EST [facility] Ovalocyte Occasional 09/06/2025 10:32 AM EST [facility] [place] Cell Moderate 09/06/2025 10:32 AM EST [facility] Blood VENOUS BLOOD / Unknown Venipuncture / Unknown 09/06/2025 5:00 AM EST 09/06/2025 8:59 AM EST us Wilbur Dominique MD HEMATOLOGY ORDERABLES F inal Result [facility] [address] [facility] , [place] [address] documented in this encounter Visit Diagnoses Not on filedocumented in this encounter
--- OUTSIDE RECORDS SUMMARY | 2025-09-10 09:32 | XMS_ITS | Encounter Summary ---
Author Organization [place] [address] Care Team Providers Care Classification Control Clerk Name Role Phone Unavailable Primary Care Provider Unavailabl e Encounter Details Date Type Department Care Team (Latest Contact Info) Description 09/10/2025 9:32 AM EST - 09/10/2025 11:59 PM EST Hospital Encounter [facility] Referral Lab [address] [place] [address] Wilbur Dominique MD [address] [phone] Discharge Disposition: Home or Self [...] 11:11 AM EST [facility] [place] # 0.5 0.3 - 0.9 x10(3)/mcL 09/10/2025 [...] inal Result [facility] [address] [facility] , [place] [address] * (ABNORMAL) BASIC METABOLIC PANEL (09/10/2025 8:19 [...] mL/min/1.7 3 m2 09/10/2025 11:03 AM EST [employer] Comment:Estimated GFR was ca lculated using the CKD-EPIcr (2020) equation refit without race. The equation is recommended by the National Kidney Foundation - [place] Society of Nephrology Task Force. Blood VENOUS BLOOD / Unknown Venipuncture / Unknown 09/10/2025 8:19 AM EST 09/10/2025 10:20 AM EST us Wilbur Dominique MD CHEMISTRY ORDERABLES Fi nal Result [facility] [address] [facility] , [place] [address] documented in this encounter Visit Diagnoses Not on filedocumented in this encounter
--- NOTE | 2025-09-22 11:00 | CT_ITS ---
FINAL REPORT TECHNIQUE: Axial CT images were performed through the head before and after the administration of IV contrast. Coronal reformatted images were submitted. This study was performed with techniques to keep radiation doses as low as reasonably achievable (ALARA). Individualized dose reduction techniques using automated exposure control or adjustment of mA and/or kV according to the patient's size were employed. CLINICAL HISTORY: Lung cancer evaluation R/O mets from primary lung cancer COMPARISON: None FINDINGS: Pre infusion images demonstrate curvilinear calcification in the deep white matter of the medial right parietal lobe measuring 2 cm in maximum craniocaudal dimension. This is well seen on coronal images 59-62 of series 602. The ventricles are normal in size. There is no evidence of hemorrhage. There is no mass or edema identified. There is no abnormal extra-axial fluid seen. The sinuses are well aerated. Post infusion images demonstrate no abnormal enhancement. IMPRESSION: No evidence of metastatic disease. Curvilinear calcification deep white matter right parietal lobe of uncertain significance. Reviewed, Interpreted and Dictated by Aidan Alicea MD Transcribed by Patsy Love Authenticated and [facility]
--- OUTSIDE RECORDS SUMMARY | 2025-09-22 11:44 | XMS_ITS | Encounter Summary ---
Author Organization [place] [address] Care Team Providers Care Tie Knitter Helper Name Role Phone Unavailable Primary Care Provider Unavailabl e Encounter Details Date Type Department Care Team (Latest Contact Info) Description 09/11/2025 External Contact [facility] [address] [phone] James Boswell MD [address] [phone] Critical illness myopathy (Primary Dx); COPD, very severe (HCC) Social History Tobacco Use Types Packs/Day Years Used Date Smoking Tobacco: Never Assessed Sex and Gender Information Value Date Recorded Sex Assigned at Not on file Legal Sex Male 5:08 AM EDT Gender Identity Not on file Sexual Orientation Not on file documented as of this encounter Progress Notes * Alejandra Jackson RMA - 09/11/2025 11:59 PM EST Pt was seen at [facility] medical records in their system documented in this encounter Plan of Treatment Not on file documented as of this encounter Visit Diagnoses Diagnosis Critical illness myopathy- Primary COPD, very severe (HCC) Chronic airway obstruction, not elsewhere classified documented in this encounter
--- OUTSIDE RECORDS SUMMARY | 2025-09-22 11:44 | XMS_ITS | Encounter Summary ---
Author Organization [place] [address] Care Team Providers Care Construction Assistant Name Role Phone Unavailable Primary Care Provider Unavailabl e Encounter Details Date Type Department Care Team (Latest Contact Info) Description 09/09/2025 External Contact [facility] [address] [phone] Wilbur Dominique MD [address] [phone] Critical illness myopathy (Primary Dx); [...]
--- OUTSIDE RECORDS SUMMARY | 2025-09-22 11:44 | XMS_ITS | Encounter Summary ---
Author Organization [place] [address] Care Team Providers Care Genetic Engineer Name Role Phone Unavailable Primary Care Provider Unavailabl e Encounter Details Date Type Department Care Team (Latest Contact Info) Description 09/12/2025 External Contact [facility] [address] [phone] Wilbur Dominique MD [address] [phone] Critical illness myopathy (Primary Dx); [...]
--- OUTSIDE RECORDS SUMMARY | 2025-09-22 11:44 | XMS_ITS | Clinical Summary ---
Author Organization [facility] Address [address] [place] [address] Phone Care Team Providers Care Metal Lather Name Role Phone Unavailable Primary Care Provider Unavailabl e Allergies No known active allergies Encounters Date Type Department Care Team Description 09/12/2025 External Contact [facility] [address] [phone] Wilbur Dominique MD Critical illness myopathy (Primary Dx); COPD, very severe (HCC) 09/11/2025 External Contact [facility] [address] [phone] James Boswell MD Critical illness myopathy (Primary Dx); COPD, very severe (HCC) 09/10/2025 9:32 AM EST - 09/10/2025 11:59 PM EST Hospital Encounter [facility] Referral Lab [address] [place] [id number] Wilbur Dominique MD Discharge Disposition: Home or Self Care 09/10/2025 External Contact [facility] [address] [phone] James Boswell MD Critical illness myopathy (Primary Dx); COPD, very severe (HCC) 09/09/2025 External Contact [facility] [address] [phone] Wilbur Dominique MD Critical illness myopathy (Primary Dx); COPD, very severe (HCC) 09/07/2025 External Contact [facility] [address] [phone] James Boswell MD Critical illness myopathy (Primary Dx); COPD, very severe (HCC) 09/07/2025 External Contact [facility] [address] [phone] James Boswell MD Critical illness myopathy (Primary Dx); COPD, very severe (HCC) 09/06/2025 8:58 AM EST - 09/06/2025 11:59 PM EST Hospital Encounter [facility] Referral Lab [address] [place] [id number] Wilbur Dominique MD Discharge Disposition: Home or Self Care 09/06/2025 External Contact [facility] [address] [phone] Wilbur Dominique MD Critical illness myopathy (Primary Dx); Acute hypercapnic respiratory failure (HCC); Acute pancreatitis, unspecified complication status, unspecified pancreatitis type; COPD, very severe (HCC); Essential hypertension; Lung nodule from Last 3 Months Social History Tobacco Use Types Packs/Day Years [...] Tdap) 1957 Pneumococcal Vaccine 50+ (1 of 2 - PCV) 1957 Zoster (1 of 2) 1988 RSV or 60+ (1 - 1-d ose 75+ series) 2013 COVID-19 Vaccine (2024-2 6 season) 2025 Influenza Vaccine (#1) 2025 Hepatitis B Vaccine Aged Out No longe r eligible based on patient's age to complete this topic Meningococcal B Vaccine Aged Out No l onger eligible based on patient's age to complete this topic Procedures Procedure Name Priority Date/Time Associated Diagnosis Comments CBC WITH DIFF Routine 09/10/2025 8:19 AM EST BASIC METABOLIC PANEL Routine 09/10/2025 8:19 AM EST BASIC METABOLIC PANEL Routine 09/06/2025 5:00 AM EST MAGNESIUM LEVEL Routine 09/06/2025 5:00 AM EST CBC WITH DIFF Routine 09/06/2025 5:00 AM EST from Last 3 Months Results * (ABNORMAL) CBC WITH DIFF (09/10/2025 8:19 AM EST) Only the most recent of2 resultswithin the time period is included. WBC 8.1 3.7 - 10.3 x10(3)/mcL 09/10/2025 [...] 11:11 AM EST [facility] [place] # 0.5 0.3 - 0.9 x10(3)/mcL 09/10/2025 [...] inal Result [facility] [address] [facility] , [place] [address] * (ABNORMAL) BASIC METABOLIC PANEL (09/10/2025 8:19 AM EST) Only the most recent of2 resultswithin the time period is included. Sodium 139 136 - 145 mmol/L 09/10/2025 11:03 AM EST [facility] Potassium 4.0 3.5 - 5.0 mmol/L 09/10/2025 11:03 AM EST [facility] Chloride 101 98 - 107 mmol/L 09/10/2025 11:03 AM EST [facility] Total CO2 27 22 - 29 mmol/L 09/10/2025 11:03 AM EST [facility] Anion Gap 11 7 - 16 mmol/L 09/10/2025 11:03 AM EST [facility] Calcium 8.0(L) 8.8 - 10.4 mg/dL 09/10/2025 11:03 AM EST [facility] Glucose Lvl 128(H) 70 - 99 mg/dL 09/10/2025 11:03 AM EST [facility], [facility] BUN 8 8 - 23 mg/dL 09/10/2025 11:03 AM EST [facility], [facility] Creatinine 0.77 0.67 - 1.30 mg/dL 09/10/2025 11:03 AM EST [facility], [facility] eGFR (CKD-EPIcr 2020) 87 >=60 mL/min/1.7 3 m2 09/10/2025 11:03 AM EST [facility] Comment:Estimated GFR was ca lculated using the CKD-EPIcr (2020) equation refit without race. The equation is recommended by the National Kidney Foundation - [place] [employer] of Nephrology Task Force. Blood VENOUS BLOOD / Unknown Venipuncture / Unknown 09/10/2025 8:19 AM EST 09/10/2025 10:20 AM EST us Wilbur Dominique MD CHEMISTRY ORDERABLES Fi nal Result [facility] [address] [facility] , [place] [address] * (ABNORMAL) MAGNESIUM LEVEL (09/06/2025 5:00 AM EST) Magnesium 2.6(H) 1.6 - 2.4 mg/dL 09/06/2025 9:23 AM EST [facility] Blood VENOUS BLOOD / Unknown Venipuncture / Unknown 09/06/2025 5:00 AM EST 09/06/2025 8:59 AM EST Wilbur Dominique MD CHEMISTRY ORDERABLES Fi nal Result [facility] [email or web address] [address] [facility] , [place] [address] from Last 3 Months Insurance [place] CHOICE [place]
--- OUTSIDE RECORDS SUMMARY | 2025-09-22 11:44 | XMS_ITS | Clinical Summary ---
Author Organization [facility] Address [address] [place] [address] Care Team Providers Care Commercial Instructor Supervisor Name Role Phone Félix Wasserman MD Primary Care Provider [phone] Immunizations Immunization Administration Dates Next Due Influenza, [...] or (1 - 1-dose 75+ series) 2013 [id number] Vaccine ( season) 2025 08/28/2022, 03/11/2022, 10/22/2021, [...] age to complete this topic Insurance MEDICARE [facility] [place] [id number] Care Teams Commercial Instructor Supervisor Relationship Specialty Start Date End Date Félix Wasserman MD [address] [place] [id number] [facility] - General 03/02/21
--- OUTSIDE RECORDS SUMMARY | 2025-09-22 11:44 | XMS_ITS | Clinical Summary ---
Author Organization [facility] Address [address] [place] [address] Care Team Providers Care Pony Cylinder Press Operator Name Role Phone Lisa Arreola APRN Primary Care Provider [phone] Allergies No known active allergies Medications omeprazole (priLOSEC) 20 MG capsule Take 1 capsule by mouth Daily. Active montelukast (SINGULAIR) 10 MG tablet Take 1 tablet by mouth Every Night. Active albuterol sulfate HFA 108 (90 Base) MCG/ACT inhaler Inhale 2 puffs Every 4 (Four) Hours As Needed for Wheezing. Active Glycopyrrolate- Formoterol (Bevespi Aerosphere) 9-4.8 MCG/ACT aerosol Inhale 2 sprays 2 (Two) Times a Day. Active diphenhydrAMINE (BENADRYL) 25 mg capsule Take 1 capsule by mouth At Night As Needed for Sleep. Active vitamin B-12 (CYANOCOBALAMIN ) 1000 MCG tablet Take 1 tablet by mouth Daily. Active vitamin C (ASCORBIC ACID) 250 MG tablet Take 1 tablet by mouth Daily. Active cetirizine (zyrTEC) 10 MG tablet Take 1 tablet by mouth Daily. Active ferrous sulfate 325 (65 FE) MG tablet Take 1 tablet by mouth 2 (Two) Times a Day. Active docusate sodium (COLACE) 100 MG capsule Take 1 capsule by mouth Daily As Needed for Constipation . Active doxazosin (CARDURA) 4 MG tablet Take 1 tablet by mouth Every Night. Active lisinopril (PRINIVIL,ZESTR IL) 40 MG tablet Take 1 tablet by mouth Daily. 30 tablet 5 Active lisinopril (PRINIVIL,ZESTR IL) 10 MG tablet Take 1.5 tablets by mouth 2 (Two) Times a Day. 08/30/20 Discontinu ed(*Therap y completed) cetirizine (zyrTEC) 5 MG tablet Take 1 tablet by mouth Daily. 08/30/20 Discontinu ed(*Therap y completed) ferrous gluconate (FERGON) 324 MG tablet Take 1 tablet by mouth Daily With Breakfast. 08/30/20 Discontinu ed(*Therap y completed) lisinopril (PRINIVIL,ZESTR IL) 30 MG tablet Take 1 tablet by mouth Daily. 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 Resolved Problems Problem Noted Date Diagnosed Date Resolved Date Respiratory insufficiency 08/28/2025 Shock 08/28/2025 09/05/2025 Acute pancreatitis 08/27/2025 Vasovagal syncope 08/27/2025 09/05/2025 Encounters Date Type Department Care Team Description 08/31/2025 8:50 AM EST Ancillary Procedure [facility] IP SPEECH PATH [address] [place] [address] 08/28/2025 6:35 PM EST - 08/28/2025 8:12 PM EST Surgery [facility] OR [address] [place] [address] Hermes Jaramillo MD CHOLECYSTECTOMY LAPAROSCOPIC INTRAOPERATIVE CHOLANGIOGRAM [05062 (CPT )] 08/28/2025 7:56 AM EST Anesthesia Event [facility] OR [address] [place] [address] Kourtney Booth MD Hall, Desiree M, CRNA 08/27/2025 6:38 PM EST - 09/05/2025 3:32 PM EST Hospital Encounter [facility] [address]H [address] [place] [address] Edilma Mike MD Polly, Oshuare, MD Todd, Amber J, MD Meenach, DO Jovanni Roy Christina Marie, MD Burgess, Eva, MD Acute pancreatitis, unspecified complication status, unspecified pancreatitis type (Primary Dx); Cholecystitis; Oropharyngeal dysphagia Discharge Disposition: Rehab Facility or Unit (DC - External) from Last 3 Months Social History Tobacco [...] and heating? Not hard at all 08/29/2025 [facility] [place] [facility] Occupat ional Health - Occupational Stress [...] the past 12 months has th e [employer], gas, oil, or water company threatened to [...] GED or equivalent No 08/29/2025 Preferred Language Mohawk 08/29/2025 PHQ-2 Answer Date Recorded Patient Health [...] Mass Index 32.25 09/02/2025 6:09 PM EST Plan of Treatment Upcoming Encounters Date Type Department Care Team (Late st Contact Info) Description 10/05/2025 8:30 AM EST Office Visit [facility] SURGERY [address] [facility] [address] [place] [address] Hermes Jaramillo MD [address] [facility] [address] [place] [address] Health Maintenance Due Date Last Done Comments LIPID PANEL 1938 ZOSTER VACCINE (1 of 2) 1988 RSV Vaccine - Adults (1 - 1- dose 75+ series) 2013 COVID-19 Vaccine ( - 2024-2 6 season) 2025 08/11/2023, 08/28/2022, 03/11/2022, Additional history exists ANNUAL WELLNESS VISIT 08/31/2025 TDAP/TD VACCINES (2 - Td or Tdap) 05/29/2027 017 Pneumococcal Vaccine 50+ Completed 018, 05/29/2017, 09/18/2015 INFLUENZA VACCINE Completed 08/02/2025, , 08/11/2023, Additional history exists Procedures Procedure Name Priority Date/Time Associated Diagnosis Comments FL VIDEO SWALLOW W SPEECH SINGLE-CONTRAST Routine 09/05/2025 9:06 AM EST MAGNESIUM Routine 09/05/2025 4:35 AM EST CBC (NO DIFF) Routine 09/05/2025 4:35 AM EST BASIC METABOLIC PANEL Routine 09/05/2025 4:35 AM EST POTASSIUM Timed 09/04/2025 5:30 PM EST POCT GLUCOSE FINGERSTICK Routine 09/04/2025 4:35 PM EST POCT GLUCOSE FINGERSTICK Routine 09/04/2025 11:54 AM EST POCT GLUCOSE FINGERSTICK Routine 09/04/2025 8:04 AM EST PHOSPHORUS Routine 09/04/2025 5:18 AM EST CBC (NO DIFF) Routine 09/04/2025 5:18 AM EST BASIC METABOLIC PANEL Routine 09/04/2025 5:18 AM EST MAGNESIUM Routine 09/04/2025 5:18 AM EST POCT GLUCOSE FINGERSTICK Routine 09/03/2025 7:51 PM EST POCT GLUCOSE FINGERSTICK Routine 09/03/2025 4:09 PM EST CBC AND DIFFERENTIAL Routine 09/03/2025 1:57 PM EST SCAN SLIDE Routine 09/03/2025 1:57 PM EST POTASSIUM Timed 09/03/2025 1:57 PM EST CBC WITH AUTO DIFFERENTIAL Routine 09/03/2025 1:57 PM EST POCT GLUCOSE FINGERSTICK Routine 09/03/2025 11:47 AM EST POCT GLUCOSE FINGERSTICK Routine 09/03/2025 7:25 AM EST BASIC METABOLIC PANEL Routine 09/03/2025 3:43 AM EST MAGNESIUM Routine 09/03/2025 3:43 AM EST POCT GLUCOSE FINGERSTICK Routine 09/02/2025 8:03 PM EST ECHO COMPLETE W/ DOPPLER, COLOR FLOW AND CONTRAST STAT 09/02/2025 6:08 PM EST POCT GLUCOSE FINGERSTICK Routine 09/02/2025 4:54 PM EST LACTIC ACID, PLASMA STAT 09/02/2025 3 :43 PM EST CBC AND DIFFERENTIAL STAT 09/02/2025 2:36 PM EST MANUAL DIFFERENTIAL STAT 09/02/2025 2 :36 PM EST CBC WITH AUTO DIFFERENTIAL STAT 09/02/2025 2:36 PM EST PROCALCITONIN STAT 09/02/2025 2:36 PM EST PROBNP STAT 09/02/2025 2:36 PM EST POCT GLUCOSE FINGERSTICK Routine 09/02/2025 12:24 PM EST XR CHEST 1 VW STAT 09/02/2025 11:37 AM EST FL VIDEO SWALLOW W SPEECH SINGLE-CONTRAST Routine 09/02/2025 11:32 AM EST POCT GLUCOSE FINGERSTICK Routine 09/02/2025 7:44 AM EST COMPREHENSIVE METABOLIC PANEL Routine 09/02/2025 5:43 AM EST CBC (NO DIFF) Routine 09/02/2025 5:43 AM EST MAGNESIUM Routine 09/02/2025 5:43 AM EST PHOSPHORUS Timed 09/02/2025 5:43 AM EST POCT GLUCOSE FINGERSTICK Routine 09/01/2025 7:57 PM EST POCT GLUCOSE FINGERSTICK Routine 09/01/2025 5:34 PM EST POTASSIUM Timed 09/01/2025 5:05 PM EST PHOSPHORUS Timed 09/01/2025 5:05 PM EST POCT GLUCOSE FINGERSTICK Routine 09/01/2025 11:39 AM EST POCT GLUCOSE FINGERSTICK Routine 09/01/2025 5:31 AM EST HEPATIC FUNCTION PANEL Routine 4:01 AM EST BASIC METABOLIC PANEL Routine 09/01/2025 4:01 AM EST PHOSPHORUS Routine 09/01/2025 4:01 AM EST MAGNESIUM Routine 09/01/2025 4:01 AM EST POCT GLUCOSE FINGERSTICK Routine 08/31/2025 11:55 PM EST POCT GLUCOSE FINGERSTICK Routine 08/31/2025 6:02 PM EST SCANNED - TELEMETRY 08/31/2025 2 :54 PM EST POCT GLUCOSE FINGERSTICK Routine 08/31/2025 1:02 PM EST BUSINESS [employer]UTIONS ANALYST FEES FIBEROPTIC ENDO EVAL SWALLOW Routine 08/31/2025 9:23 AM EST POCT GLUCOSE FINGERSTICK Routine 08/31/2025 5:18 AM EST CBC AND DIFFERENTIAL Add-On 08/31/2025 3:38 AM EST PROCALCITONIN Add-On 08/31/2025 3:38 AM EST MANUAL DIFFERENTIAL STAT 08/31/2025 3 :38 AM EST CBC WITH AUTO DIFFERENTIAL Routine 08/31/2025 3:38 AM EST COMPREHENSIVE METABOLIC PANEL Routine 08/31/2025 3:38 AM EST LIPASE Routine 08/31/2025 3:38 AM EST PHOSPHORUS Routine 08/31/2025 3:38 AM EST MAGNESIUM Routine 08/31/2025 3:38 AM EST POCT GLUCOSE FINGERSTICK Routine 08/30/2025 11:24 PM EST POCT GLUCOSE FINGERSTICK Routine 08/30/2025 5:45 PM EST POCT GLUCOSE FINGERSTICK Routine 08/30/2025 11:31 AM EST SCANNED - TELEMETRY 08/30/2025 9 :26 AM EST POCT GLUCOSE FINGERSTICK Routine 08/30/2025 5:13 AM EST LIPASE Routine 08/30/2025 4:03 AM EST COMPREHENSIVE METABOLIC PANEL Routine 08/30/2025 4:03 AM EST CBC (NO DIFF) Routine 08/30/2025 4:03 AM EST PHOSPHORUS Routine 08/30/2025 4:03 AM EST MAGNESIUM Routine 08/30/2025 4:03 AM EST POCT GLUCOSE [...] (NO DIFF) Routine 08/29/2025 6:07 AM EST LACTIC ACID, PLASMA Timed 08/29/2025 6 :07 AM EST BASIC METABOLIC PANEL Routine 08/29/2025 6:07 AM EST PHOSPHORUS Routine 08/29/2025 6:07 AM EST MAGNESIUM Routine 08/29/2025 6:07 AM EST XR CHEST [...] W/CO-OXIMETRY Routine 08/28/2025 9:58 AM EST CBC AND DIFFERENTIAL Add-On 08/28/2025 9:55 AM EST MANUAL DIFFERENTIAL STAT 08/28/2025 9 :55 AM EST CBC WITH AUTO DIFFERENTIAL Routine 08/28/2025 9:55 AM EST HEPATIC FUNCTION PANEL Add-On 9:55 AM EST LACTIC ACID, PLASMA STAT 08/28/2025 9 :55 AM EST CBC (NO DIFF) STAT 08/28/2025 9:55 AM EST BASIC METABOLIC PANEL STAT 08/28/2025 9:55 AM EST POCT GLUCOSE FINGERSTICK Routine 08/28/2025 9:34 AM EST FL CHOLANGIOGRAM OPERATIVE Routine 08/28/2025 8:46 AM EST POCT SURGERY LABS Routine 08/28/2025 8:4 3 AM EST TISSUE PATHOLOGY EXAM Routine 08/28/2025 8:40 AM EST Cholecystitis ANESTHESIA INTUBATION Routine 08/28/2025 8:16 AM EST UT LAPS SURG CHOLECYSTECTOMY W/CHOLANGIOGRAPHY 08/28/2025 7:40 AM EST BLOOD GAS, ARTERIAL W/CO-OXIMETRY Routine 08/28/2025 7:18 AM EST POCT GLUCOSE FINGERSTICK Routine 08/28/2025 7:07 AM EST TYPE AND SCREEN STAT 08/28/2025 6:38 AM EST BLOOD CULTURE STAT 08/28/2025 6:38 AM EST ABORH 2ND SPECIMEN VERIFICATION STAT 08/28/2025 6:13 AM EST MANUAL DIFFERENTIAL STAT 08/28/2025 6 :13 AM EST FIBRINOGEN STAT 08/28/2025 6:13 AM EST PROTIME-INR Routine 08/28/2025 6:13 AM EST LACTIC ACID, REFLEX STAT 08/28/2025 6 :13 AM EST LIPASE Routine 08/28/2025 6:13 AM EST COMPREHENSIVE METABOLIC PANEL Routine 08/28/2025 6:13 AM EST CBC WITH AUTO DIFFERENTIAL Routine 08/28/2025 6:13 AM EST POCT GLUCOSE FINGERSTICK Routine 08/28/2025 5:58 AM EST XR CHEST 1 VW STAT 08/28/2025 5:35 AM EST HC INSERTION ARTERIAL CATH Routine 08/28/2025 5:20 AM EST Acute pancreatitis, unspecified complication status, unspecified pancreatitis type UT ARTL CATHJ/CANNULJ MNTR/TRANSFUSION SPX PRQ Routine 08/28/2025 5:20 AM EST Acute pancreatitis, unspecified complication status, unspecified pancreatitis type HC CENTRAL LINE INSERTION Routine 08/28/2025 5:19 AM EST Acute pancreatitis, unspecified complication status, unspecified pancreatitis type UT INSJ NON-TUNNELED CENTRAL VENOUS CATH AGE 5 YR/> Routine 08/28/2025 5:19 AM EST Acute pancreatitis, unspecified complication status, unspecified pancreatitis type BLOOD GAS, VENOUS W/CO-OXIMETRY Routine 08/28/2025 2:22 AM EST ECG 12-LEAD STAT 08/28/2025 2:00 AM EST BLOOD CULTURE STAT 08/28/2025 1:45 AM EST BASIC METABOLIC PANEL Timed 08/28/2025 1:35 AM EST LACTIC ACID, REFLEX STAT 08/28/2025 1 :35 AM EST MAGNESIUM Routine 08/28/2025 1:35 AM EST POCT GLUCOSE FINGERSTICK Routine 08/27/2025 11:12 PM EST BLOOD GAS, ARTERIAL W/CO-OXIMETRY Routine 08/27/2025 10:48 PM EST MAGNESIUM Add-On 08/27/2025 10:34 PM EST HEPATITIS PANEL, ACUTE Routine 10:34 PM EST HIGH SENSITIVITIY TROPONIN T 1HR Timed 08/27/2025 10:34 PM EST LACTIC ACID, REFLEX STAT 08/27/2025 1 0:[address] ABDOMEN PELVIS WO CONTRAST STAT 08/27/2025 10:13 PM EST ECG 12-LEAD STAT 08/27/2025 8:15 PM EST CBC AND DIFFERENTIAL STAT 08/27/2025 7:43 PM EST IRON PROFILE + FERRITIN Add-On 08/27/20 25 7:43 PM EST TROPONIN STAT 08/27/2025 7:43 PM EST CBC WITH AUTO DIFFERENTIAL STAT 08/27/2025 7:43 PM EST LIPASE Routine 08/27/2025 7:43 PM EST LACTIC ACID, PLASMA STAT 08/27/2025 7 :43 PM EST PROCALCITONIN STAT 08/27/2025 7:43 PM EST COMPREHENSIVE METABOLIC PANEL Routine 08/27/2025 7:43 PM EST SCANNED - LABS 08/27/2025 SCANNED - IMAGING 08/27/2025 SCANNED - IMAGING 08/27/2025 SCANNED - IMAGING 08/27/2025 from Last 3 Months Results * FL Video Swallow With Speech Single Contrast (09/05/2025 9:06 AM EST) Only the most recent of2 resultswithin the time period is included. Anatomical Region Laterality Modality Head and Neck [...] MD 09/05/2025 4:23 PM EST Workstation ID: [id number] Narrative 09/05/2025 4:23 PM EST FL VIDEO [...] MD 09/05/2025 4:23 PM EST Workstation ID: [id number] Flora Baig MD IMG FLUOROSCOP Y ORDERABLES Final Result * (ABNORMAL) CBC (No Diff) (09/05/2025 4:35 AM EST) Only the most recent of6 resultswithin the time period is included. WBC 11.96(H) 3.40 - 10.80 10*3/mm3 09/05/2025 5:14 AM EST [facility] RBC 3.00(L) 4.14 - 5.80 10*6/mm3 09/05/2025 5:14 AM EST [facility] Hemoglobin 9.1(L) 13.0 - 17.7 g/dL 09/05/2025 5:14 AM [facility] Hematocrit 29.2(L) 37.5 - 51.0 % 09/05/2025 5:14 AM [facility] MCV 97.3(H) 79.0 - 97.0 fL 09/05/2025 5:14 AM EST [facility] MCH 30.3 26.6 - 33.0 pg 09/05/2025 5:14 AM [facility] MCHC 31.2(L) 31.5 - 35.7 g/dL 09/05/2025 5:14 AM [facility] RDW 14.9 12.3 - 15.4 % 09/05/2025 5:14 AM [facility] RDW-SD 52.1 37.0 - 54.0 fl 09/05/2025 5:14 AM [facility] MPV 10.9 6.0 - 12.0 fL 09/05/2025 5:14 AM [facility] Platelets 191 140 - 450 10*3/mm3 09/05/2025 5:14 AM [facility] Blood Venipuncture / Unknown 09/05/2025 4:35 AM EST 09/05/2025 4:59 AM EST Flora Baig MD LAB BLOOD VIPIN ROGERS Final Result [facility]
[address] [place] [address], * Magnesium (09/05/2025 4:35 AM EST) Only the most recent of10 resultswithin the time period is included. Magnesium 2.4 1.6 - 2.4 mg/dL 09/05/2025 5:28 AM [facility] Blood Venipuncture / Unknown 09/05/2025 4:35 AM EST 09/05/2025 4:56 AM EST Flora Baig MD LAB BLOOD PRIMITIVONy KEN Final Result [facility]
[address] [place] [address], * (ABNORMAL) Basic Metabolic Panel (09/05/2025 4:35 AM EST) Only the most recent of7 resultswithin the time period is included. Glucose 110(H) 65 - 99 mg/dL 09/05/2025 5:28 AM EST [facility] BUN 18.5 8.0 - 23.0 mg/dL 09/05/2025 5:28 AM EST [facility] Creatinine 0.72(L) 0.76 - 1.27 mg/dL 09/05/2025 5:28 AM EST [facility] Sodium 146(H) 136 - 145 mmol/L 09/05/2025 5:28 AM EST [facility] Potassium 4.0 3.5 - 5.2 mmol/L 09/05/2025 5:28 AM EST [facility] Chloride 115(H) 98 - 107 mmol/L 09/05/2025 5:28 AM EST [facility] CO2 24.0 22.0 - 29.0 mmol/L 09/05/2025 5:28 AM EST [facility] Calcium 7.7(L) 8.6 - 10.5 mg/dL 09/05/2025 5:28 AM [facility] BUN/Creatinine Ratio 25.7(H) 7.0 - 25.0 09/05/2025 5:28 AM [facility] Anion Gap 7.0 5.0 - 15.0 mmol/L 09/05/2025 5:28 AM [facility] eGFR 89.0 >60.0 mL/min/1.7 3 09/05/2025 5:28 AM EST [facility] Blood Venipuncture / Unknown 09/05/2025 4:35 AM EST 09/05/2025 4:56 AM EST Narrative [facility] - 09/05/2025 5:28 AM [...] MD LAB BLOOD ORDE KEN Final Result [facility]
[address] [place] [address], * Potassium (09/04/2025 5:30 PM EST) Only the most recent of3 resultswithin the time period is included. Potassium 4.3 3.5 - 5.2 mmol/L 09/04/2025 6:36 PM EST [facility] Blood Venipuncture / Unknown 09/04/2025 5:30 PM EST 09/04/2025 5:57 PM EST Flora Baig MD LAB BLOOD ORDE KEN Final Result [facility]
[address] [place] [address], * POC Glucose Once (09/04/2025 4:35 PM EST) Only the most recent of34 resultswithin the time period is included. Glucose 122 70 - 130 mg/dL 09/04/2025 4:44 PM EST [facility] Comment:Serial Number: [id number]: [id number] Blood 09/04/2025 4:35 PM EST 09/04/2025 4:44 PM EST Flora Baig MD POINT OF CARE TEST ORDERABLES Final Result Performing Organization Address City/[facility]/ZIP Co de Phone Number [facility]
[address] [place] [address], * (ABNORMAL) Phosphorus (09/04/2025 5:18 AM EST) Only the most recent of7 resultswithin the time period is included. Pathologist [facility] Phosphorus 2.4(L) 2.5 - 4.5 mg/dL 09/04/2025 6:13 AM EST [facility] Blood Venipuncture / Unknown 09/04/2025 5:18 AM EST 09/04/2025 5:51 AM EST Flora Baig MD LAB BLOOD ORDE RABLES Final Result Performing Organization Address [facility] de Phone Number [facility]
[address] [place] [address], * Scan Slide (09/03/2025 1:57 PM EST) Pathologist [facility] RBC Morphology Normal Normal 09/03/2025 3:20 PM EST [facility] WBC Morphology Normal Normal 09/03/2025 3:20 PM EST [facility] Platelet Estimate Adequate Normal 09/03/2025 3:20 PM EST [facility] Blood Venipuncture / Unknown 09/03/2025 1:57 PM EST 09/03/2025 2:09 PM EST Lizbeth Myers APRN LAB BLOOD ORDERABLES Final Result [facility]
[address] [place] [address], * (ABNORMAL) CBC Auto Differential (09/03/2025 1:57 PM EST) Only the most recent of6 resultswithin the time period is included. WBC 10.70 3.40 - 10.80 10*3/mm3 09/03/2025 3:20 PM EST [facility] RBC 3.19(L) 4.14 - 5.80 10*6/mm3 09/03/2025 3:20 PM EST [facility] Hemoglobin 9.3(L) 13.0 - 17.7 g/dL 09/03/2025 3:20 PM EST [facility] Hematocrit 30.4(L) 37.5 - 51.0 % 09/03/2025 3:20 PM EST [facility] MCV 95.3 79.0 - 97.0 fL 09/03/2025 3:20 PM EST [facility] MCH 29.2 26.6 - 33.0 pg 09/03/2025 3:20 PM EST [facility] MCHC 30.6(L) 31.5 - 35.7 g/dL 09/03/2025 3:20 PM EST [facility] RDW 14.6 12.3 - 15.4 % 09/03/2025 3:20 PM EST [facility] RDW-SD 51.0 37.0 - 54.0 fl 09/03/2025 3:20 PM EST [facility] MPV 10.9 6.0 - 12.0 fL 09/03/2025 3:20 PM EST [facility] Platelets 140 140 - 450 10*3/mm3 09/03/2025 3:20 PM EST [facility] Neutrophil % 68.1 42.7 - 76.0 % 09/03/2025 3:20 PM EST [facility] Lymphocyte % 18.1(L) 19.6 - 45.3 % 09/03/2025 3:20 PM EST [facility] Monocyte % 7.6 5.0 - 12.0 % 09/03/2025 3:20 PM EST [facility] Eosinophil % 1.3 0.3 - 6.2 % 09/03/2025 3:20 PM EST [facility] Basophil % 0.3 0.0 - 1.5 % 09/03/2025 3:20 PM EST [facility] Immature Grans % 4.6(H) 0.0 - 0.5 % 09/03/2025 3:20 PM EST [facility] Neutrophils, Absolute 7.29(H) 1.70 - 7.00 10*3/mm3 09/03/2025 3:20 PM EST [facility] Lymphocytes, Absolute 1.94 0.70 - 3.10 10*3/mm3 09/03/2025 3:20 PM EST [facility] Monocytes, Absolute 0.81 0.10 - 0.90 10*3/mm3 09/03/2025 3:20 PM EST [facility] Eosinophils, Absolute 0.14 0.00 - 0.40 10*3/mm3 09/03/2025 3:20 PM EST [facility] Basophils, Absolute 0.03 0.00 - 0.20 10*3/mm3 09/03/2025 3:20 PM EST [facility] Immature Grans, Absolute 0.49(H) 0.00 - 0.05 10*3/mm3 09/03/2025 3:20 PM EST [facility] nRBC 0.4(H) 0.0 - 0.2 /100 WBC 09/03/2025 3:20 PM [facility] Blood Venipuncture / Unknown 09/03/2025 1:57 PM EST 09/03/2025 2:09 PM EST [facility] - 09/03/2025 3:20 PM EST Appended report. These results have been appended to a previously verified report. us Lizbeth Myers APRN LAB BLOOD ORDERABLES Final Result [facility]
[address] [id number], [place] [phone] * ECHO COMPLETE W/ DOPPLER, COLOR FLOW AND CONTRAST (09/02/2025 6:08 PM EST) [facility] EF(MOD-bp) 67.2 % LVIDd 3.1 cm LVIDs [...] % EF(MOD-sp4) 71.8 % MV E max reymundo 80.7 cm/sec MV A max reymundo 125.0 cm/sec MV dec time 0.20 sec MV E/A 0.65 IVRT 79.0 ms LA ESV Index (BP) 14.2 ml/m2 Med Peak E' Reymundo 7.9 cm/sec Lat Peak E' Reymundo 8.3 cm/sec TR max reymundo 283.0 cm/sec Avg E/e' ratio 9.96 SV(LVOT) 92.4 ml RV Base 3.2 cm RV Mid 3.0 cm RV Length 7.2 cm TAPSE (>1.6) 2.8 cm RV S' 21.3 cm/sec LA dimension (2D) 3.3 cm LV V1 max 131.0 cm/sec LV V1 max PG 6.9 mmHg LV V1 mean PG 4.0 mmHg LV V1 VTI 24.3 cm Ao pk reymundo 158.0 cm/sec Ao max PG 10.0 mmHg [...] CV ECHO ORDERABLES Final Re sult * Lactic Acid, Plasma (09/02/2025 3:43 PM EST) Only the most recent of6 resultswithin the time period is included. Lactate 1.5 0.5 - 2.0 mmol/L 09/02/2025 4:30 PM EST [facility] Comment:Falsely depressed re sults may occur on samples drawn from patients receiving N-Acetylcysteine (NAC) or Metamizole. Blood Venipuncture / Unknown 09/02/2025 3:43 PM EST 09/02/2025 3:53 PM EST us Lizbeth Myers APRN LAB BLOOD ORDERABLES Final Result [facility]
[address] [place] [address], [place] [phone] * (ABNORMAL) proBNP (09/02/2025 2:36 PM EST) proBNP 9,267.0(H) 0.0 - 1,800.0 pg/mL 09/02/2025 3:24 PM EST [facility] Blood Venipuncture / Unknown 09/02/2025 2:36 PM EST 09/02/2025 2:47 PM EST [facility] - 09/02/2025 3:24 PM EST This [...] Padron 300-1800 Negative <300 us Lizbeth Myers ASSISTANT REFINERY OPERATOR LAB BLOOD ORDERABLES Final Result [facility]
[address] [place] [address], * (ABNORMAL) Procalcitonin (09/02/2025 2:36 PM EST) Only the most recent of3 resultswithin the time period is included. Procalcitonin 4.27(H) 0.00 - 0.25 ng/mL 09/02/2025 3:24 PM EST [facility] Blood Venipuncture / Unknown 09/02/2025 2:36 PM EST 09/02/2025 2:47 PM EST [facility] - 09/02/2025 3:24 PM EST As [...] Day 4 values are available. Refer to http://[email or web address]-clb-[email or web address] Change in PCT <=80% A decrease of [...] severe sepsis or septic shock. Lizbeth Myers ASSISTANT REFINERY OPERATOR LAB BLOOD ORDERABLES Final Result [facility]
[address] [place] [address], * (ABNORMAL) Manual Differential (09/02/2025 2:36 PM EST) Only the most recent of4 resultswithin the time period is included. Neutrophil % 83.0(H) 42.7 - 76.0 % 09/02/2025 4:01 PM EST [facility] Lymphocyte % 5.0(L) 19.6 - 45.3 % 09/02/2025 4:01 PM EST [facility] Monocyte % 3.0(L) 5.0 - 12.0 % 09/02/2025 4:01 PM EST [facility] Eosinophil % 0.0(L) 0.3 - 6.2 % 09/02/2025 4:01 PM EST [facility] Basophil % 0.0 0.0 - 1.5 % 09/02/2025 4:01 PM [facility] Bands % 4.0 0.0 - 5.0 % 09/02/2025 4:01 PM [facility] Metamyelocyte % 1.0(H) 0.0 - 0.0 % 09/02/2025 4:01 PM [facility] Myelocyte % 1.0(H) 0.0 - 0.0 % 09/02/2025 4:01 PM [facility] Atypical Lymphocyte % 3.0 0.0 - 5.0 % 09/02/2025 4:01 PM [facility] Neutrophils Absolute 9.65(H) 1.70 - 7.00 10*3/mm3 09/02/2025 4:01 PM [facility] Lymphocytes Absolute 0.89 0.70 - 3.10 10*3/mm3 09/02/2025 4:01 PM [facility] Monocytes Absolute 0.33 0.10 - 0.90 10*3/mm3 09/02/2025 4:01 PM [facility] Eosinophils Absolute 0.00 0.00 - 0.40 10*3/mm3 09/02/2025 4:01 PM [facility] Basophils Absolute 0.00 0.00 - 0.20 10*3/mm3 09/02/2025 4:01 PM [facility] RBC Morphology Normal Normal 09/02/2025 4:01 PM [facility] WBC Morphology Normal Normal 09/02/2025 4:01 PM [facility] Platelet Morphology Normal Normal 09/02/2025 4:01 PM [facility] Blood Venipuncture / Unknown 09/02/2025 2:36 PM EST 09/02/2025 2:47 PM EST us Lizbeth Myers ASSISTANT REFINERY OPERATOR LAB BLOOD ORDERABLES Final Result [facility]
[address] [place] [address], * XR Chest 1 View (09/02/2025 11:37 AM EST) Only the most recent of4 resultswithin the time period is included. Anatomical Region Laterality Modality Body N/A Radiographic Radha ging 09/02/2025 12:0 0 PM EST Impressions 09/02/2025 12:03 PM EST Impression: Increased bibasilar airspace opacities, which may be due to atelectasis, pulmonary edema, or possibly pneumonia. Known left lower lobe mass is not well visualized. Electronically Signed: Loraine Bryson MD 09/02/2025 12:03 PM EST Workstation ID: [id number] Narrative 09/02/2025 12:03 PM EST XR CHEST [...] AP chest x-ray 08/29/2025, 08/28/2025; CT abdomen [id number]/27/2025 Findings: Lower chest is not entirely included. [...] MD 09/02/2025 12:03 PM EST Workstation ID: [id number] us Lizbeth Myers ASSISTANT REFINERY OPERATOR IM DIAGNOSTIC IMAGING ORDNy ROGERS Final Result * (ABNORMAL) Comprehensive Metabolic Panel (09/02/2025 5:43 AM EST) Only the most recent of5 resultswithin the time period is included. Glucose 99 65 - 99 mg/dL 09/02/2025 6:55 AM [facility] BUN 22.7 8.0 - 23.0 mg/dL 09/02/2025 6:55 AM [facility] Creatinine 0.69(L) 0.76 - 1.27 mg/dL 09/02/2025 6:55 AM [facility] Sodium 148(H) 136 - 145 mmol/L 09/02/2025 6:55 AM [facility] Potassium 3.7 3.5 - 5.2 mmol/L 09/02/2025 6:55 AM [facility] Chloride 116(H) 98 - 107 mmol/L 09/02/2025 6:55 AM [facility] CO2 22.5 22.0 - 29.0 mmol/L 09/02/2025 6:55 AM [facility] Calcium 8.2(L) 8.6 - 10.5 mg/dL 09/02/2025 6:55 AM [facility] Total Protein 5.5(L) 6.0 - 8.5 g/dL 09/02/2025 6:55 AM [facility] Albumin 3.1(L) 3.5 - 5.2 g/dL 09/02/2025 6:55 AM [facility] ALT (SGPT) 81(H) 1 - 41 U/L 09/02/2025 6:55 AM [facility] AST (SGOT) 42(H) 1 - 40 U/L 09/02/2025 6:55 AM [facility] Alkaline Phosphatase 171(H) 39 - 117 U/L 09/02/2025 6:55 AM EST [facility] Total Bilirubin 0.8 0.0 - 1.2 mg/dL 09/02/2025 6:55 AM EST [facility] Globulin 2.4 gm/dL 09/02/2025 6:55 AM EST [facility] Comment:Calculated Result A/G Ratio 1.3 g/dL 09/02/2025 6:55 AM EST [facility] BUN/Creatinine Ratio 32.9(H) 7.0 - 25.0 09/02/2025 6:55 AM EST [facility] Anion Gap 9.5 5.0 - 15.0 mmol/L 09/02/2025 6:55 AM [facility] eGFR 90.1 >60.0 mL/min/1.7 3 09/02/2025 6:55 AM EST [facility] Blood Venipuncture / Unknown 09/02/2025 5:43 AM EST 09/02/2025 6:09 AM EST [facility] - 09/02/2025 6:55 AM EST GFR [...] MD LAB BLOOD ORDERABLES Final Re sult [facility]
[address] [place] [address], * (ABNORMAL) Hepatic Function Panel (09/01/2025 4:01 AM EST) Only the most recent of2 resultswithin the time period is included. Total Protein 5.0(L) 6.0 - 8.5 g/dL 09/01/2025 4:48 AM EST [facility] Albumin 3.0(L) 3.5 - 5.2 g/dL 09/01/2025 4:48 AM EST [facility] ALT (SGPT) 98(H) 1 - 41 U/L 09/01/2025 4:48 AM EST [facility] AST (SGOT) 38 1 - 40 U/L 09/01/2025 4:48 AM EST [facility] Alkaline Phosphatase 108 39 - 117 U/L 09/01/2025 4:48 AM [facility] Total Bilirubin 0.6 0.0 - 1.2 mg/dL 09/01/2025 4:48 AM [facility] Bilirubin, Direct 0.5(H) 0.0 - 0.3 mg/dL 09/01/2025 4:48 AM [facility] Bilirubin, Indirect 0.1 mg/dL 09/01/2025 4:48 AM [facility] Blood Venipuncture / Unknown 09/01/2025 4:01 AM EST 09/01/2025 4:15 AM EST Brian Hughes MD LAB BLOOD ORDERABLES Final R esult [facility]
[address] [place] [address], * Telemetry Scan (08/31/2025 2:54 PM EST) Only the most recent of2 resultswithin the time period is included. [facility] ECG ORDERABLES Final Result * BUSINESS SOLUTIONS ANALYST FEES - Fiberoptic Endo Eval Swallow (08/31/2025 9:23 AM EST) Narrative SYSTEMGENERATED, DOCUMENTATION - 08/31/2025 9:23 AM EST This procedure was auto-finalized with no dictation required. us Brian Hughes MD BUSINESS SOLUTIONS ANALYST ORDERABLES Final Result * (ABNORMAL) Lipase (08/31/2025 3:38 AM EST) Only the most recent of4 resultswithin the time period is included. Lipase 110(H) 13 - 60 U/L 08/31/2025 4:30 AM EST [facility] Blood Line / Unknown 08/31/2025 3: 38 AM EST 08/31/2025 3:45 AM EST Hermes Jaramillo MD LAB BLOOD ORDERABLES Final Re sult [facility]
[address] [place] [address], * (ABNORMAL) Blood Gas, Arterial With Co-Ox (08/29/2025 5:10 PM EST) Only the most recent of7 resultswithin the time period is included. Site Arterial Line 08/29/2025 5:10 PM EST [facility] Andrey's Test N/A 08/29/2025 5:10 PM EST [facility] pH, Arterial 7.490(H) 7.350 - 7.450 pH units 08/29/2025 5:10 PM EST [facility] Comment:83 Value above refer ence range pCO2, Arterial 31.6(L) 35.0 - 45.0 mm Hg 08/29/2025 5:10 PM EST [facility] Comment:84 Value below refer ence range pO2, Arterial 145.0(H) 83.0 - 108.0 mm Hg 08/29/2025 5:10 PM EST [facility] HCO3, Arterial 24.0 20.0 - 26.0 mmol/L 08/29/2025 5:10 PM EST [facility] Base Excess, Arterial 0.8 0.0 - 2.0 mmol/L 08/29/2025 5:10 PM [facility] Hemoglobin, Blood Gas 7.5(L) 13.5 - 17.5 g/dL 08/29/2025 5:10 PM [facility] Comment:84 Value below refer ence range Hematocrit, Blood Gas 23.1(L) 38.0 - 51.0 % 08/29/2025 5:10 PM [facility] Oxyhemoglobin 98.7 94 - 99 % 08/29/2025 5:10 PM [facility] Methemoglobin 0.30 0.00 - 1.50 % 08/29/2025 5:10 PM [facility] Carboxyhemoglobin 1.1 0 - 2 % 025 5:10 PM [facility] CO2 Content 25.0 22 - 33 mmol/L 08/29/2025 5:10 PM [facility] THER[facility] Temperature 37.0 08/29/2025 5:10 PM [facility] Barometric Pressure for Blood Gas 08/29/2025 5:10 PM [facility] Comment:N/A Modality Ventilator 08/29/2025 5:10 PM [facility] THERAP[facility] FIO2 40 % 08/29/2025 5:10 PM [facility] THERAPY Ventilator Mode PS 5:10 PM [facility] THER[facility] Rate 0 Breaths/ minute 08/29/2025 5:10 PM [facility] THERAPY PEEP 6.0 08/29/2025 5:10 PM [facility] THERAPY PSV 10.0 cmH2O 08/29/2025 5:10 PM [facility] THERAPY PIP 0 cmH2O 08/29/2025 5:10 PM [facility] Comment:Meter: [id number] Director Center: [id number] IPAP 0 cm H2O 08/29/2025 5:10 PM [facility] THERAPY EPAP 0 cm H2O 08/29/2025 5:10 PM [facility] THERAPY pH, Temp Corrected 7.490 pH Units 2024 5:10 PM EST [facility] pCO2, Temperature Corrected 31.6(L) 35 - 48 mm Hg 08/29/2025 5:10 PM EST [facility] pO2, Temperature Corrected 145(H) 83 - 108 mm Hg 08/29/2025 5:10 PM EST [facility] Arterial Blood 08/29/2025 5: 10 PM EST 08/29/2025 5:10 PM EST Cristian Gordon [facility] LAB BLOOD ORDERABLE S Final Result Performing Organization Address [facility] Co de Phone Number [facility]
[address] [place] [address] * (ABNORMAL) STAT Lactic Acid, Reflex (08/29/2025 4:18 PM EST) Only the most recent of6 resultswithin the time period is included. Pathologist [facility] Lactate 2.3(HH) 0.5 - 2.0 mmol/L 08/29/2025 4:52 PM EST [facility] Comment:Falsely depressed re sults may occur on samples drawn from patients receiving N-Acetylcysteine (NAC) or Metamizole. Blood Line / Unknown 08/29/2025 4: 18 PM EST 08/29/2025 4:29 PM EST [facility]ABLE S Final Result [facility]
[address] [place] [address], * XR Abdomen KUB (08/28/2025 10:13 AM EST) Anatomical Region Laterality Modality Body, Abdomen N/A Radiographic Radha ging 08/28/2025 10:5 3 AM EST Impressions 08/28/2025 10:53 AM EST Impression: NG tube tip overlies the mid body of the stomach. Electronically Signed: Stephen Toussaint MD 08/28/2025 10:53 AM EST Workstation ID: [id number] Narrative 08/28/2025 10:53 AM EST XR ABDOMEN [...] MD 08/28/2025 10:53 AM EST Workstation ID: [id number] Hermes aJramillo MD IMG DIAGNOSTIC IMAGING ORDERA BLES Final Result * [place] Cholangiogram Operative (08/28/2025 8:46 AM EST) Anatomical Region Laterality Modality Abdomen, Other Radio Fluoroscop y 08/28/2025 3:22 PM EST Impressions 08/28/2025 3:24 PM EST Impression: Images saved during intraoperative cholangiogram, see operative report for further detail. Electronically Signed: Brian Crandall MD 08/28/2025 3:24 PM EST Workstation ID: [id number] Narrative 08/28/2025 3:24 PM EST [place] CHOLANGIOGRAM [...] MD 08/28/2025 3:24 PM EST Workstation ID: [id number] Hermes Jaramillo MD IMG FLUOROSCOPY ORDERABLES Fi nal Result * (ABNORMAL) POC Surgery Labs (08/28/2025 8:43 AM EST) Ionized Calcium 1.35(H) 1.15 - 1.30 mmol/L 08/28/2025 9:41 AM EST [facility] POC Potassium 3.5 3.5 - 4.9 mmol/L 08/28/2025 9:41 AM EST [facility] Sodium 142 138 - 146 mmol/L 08/28/2025 9:41 AM EST [facility] Total CO2 18(L) 24 - 29 mmol/L 08/28/2025 9:41 AM EST [facility] Hemoglobin 7.8(LL) 12.0 - 17.0 g/dL 08/28/2025 9:41 AM EST [facility] Hematocrit 23(L) 38 - 51 % 08/28/2025 9:41 AM EST [facility] pCO2, Arterial 44.8 35 - 45 mm Hg 08/28/2025 9:41 AM EST [facility] pO2, Arterial 340(H) 80 - 105 mmHg 08/28/2025 9:41 AM EST [facility] Comment:Serial Number: [id number] Base Excess -12.0000(L ) -5 - 5 mmol/L 08/28/2025 9:41 AM EST [facility] O2 Saturation, Arterial 100(H) 95 - 98 % 08/28/2025 9:41 AM EST [facility] pH, Arterial 7.18(L) 7.35 - 7.6 pH units 08/28/2025 9:41 AM EST [facility] HCO3, Arterial 16.5(L) 22 - 26 mmol/L 08/28/2025 9:41 AM EST [facility] Glucose 117 70 - 130 mg/dL 08/28/2025 9:41 AM EST [facility] Blood 08/28/2025 8:43 AM EST 08/28/2025 9:41 AM EST Cristian Mckee DO POINT OF CARE TEST ORDERABLES Final Result [facility]
[address] [place] [address], * Tissue Pathology Exam (08/28/2025 8:40 AM EST) Case Report Surgical Pathology Report Case: [id number] Authorizing Provider: Hermes Jaramillo MD Collected: 08/28/2025 08:40 AM Ordering Location: [facility] Received: 08/29/2025 07:43 AM OR Pathologist: Zach Arenas MD Specimen: Gallbladder, gallbladder 08/31/2025 10:47 AM [facility] Clinical Information Cholecystitis 08/31/2025 10:47 AM [facility] Final Diagnosis GALLBLADDER, CHOLECYSTECTOMY: Chronic cholecystitis. Reactive epithelial changes present; negative for dysplasia. Portion of lymph node negative for malignancy. 08/31/2025 10:47 AM [facility] at 1047 EST Gross Description 1. [...] mucosal fold is present within the fundus. Host/Hostess Ground sections are submitted as follows: 1A-en face cystic duct margin, neck, body, and fundus with mucosal fold 1B-possible disrupted lymph node. LDP Additional sections are submitted in blocks 1C-1G. LDP 08/30/2025 08/31/2025 10:47 AM [facility] Microscopic Description The slides are reviewed and demonstrate histopathologic features supporting the above rendered diagnosis. 08/31/2025 10:47 AM [facility] Tissue Gallbladder structure / Unknown 08/28/2025 8:40 AM EST 08/29/2025 7:43 AM EST us Hermes Jaramillo MD PATHOLOGY/CYTOLOGY ORDERABLES Final Result [facility]
[address] [place] [address], * BH AN ETT AIRWAY (08/28/2025 8:16 AM EST) Narrative Margo Chung CRNA - 08/28/2025 8:16 AM EST Margo Chung CRNA 08/28/2025 8:17 AM Airway Reason: elective Date/Time: 08/28/2025 8:05 AM Airway not difficult General Information and Staff Patient location during procedure: OR ASSOCIATE PROGRAMMER ANALYST/CAA: Margo Chung, ASSOCIATE PROGRAMMER ANALYST Indications and Patient Condition Indications for airway [...] Kourtney Booth MD ANESTHESIA ORDERABLES Final Result * Blood Culture - Blood, Blood, Arterial Line (08/28/2025 6:38 AM EST) Only the most recent of2 resultswithin the time period is included. Pathologist [facility] Blood Culture No growth at 5 days 09/02/2025 7:00 AM EST [facility] Blood Arterial blood specimen / Unknown Venipuncture / Unknown 08/28/2025 6:38 AM EST 08/28/2025 6:53 AM EST Linda Rubin MD MICROBIOLOGY - GENERAL ORDERABLE S Final Result [facility]
[address] [place] [address], * Type & Screen (08/28/2025 6:38 AM EST) Pathologist [facility] ABO Type A 08/28/2025 7:40 AM EST [facility] RH type Positive 08/28/2025 7:40 AM EST [facility] Antibody Screen Negative 08/28/2025 7:40 AM EST [facility] T&S Expiration Date 08/31/2025 11:59:59 PM 08/28/2025 7:40 AM EST [facility] Blood Venipuncture / Unknown 08/28/2025 6:38 AM EST 08/28/2025 7:06 AM EST Alma Rosa Lucas APRN BLOOD BANK TEST ORDERABLES Edited Result - Final [facility]
[address] [place] [address], * ABO RH Specimen Verification (08/28/2025 6:13 AM EST) ABO Type A 08/28/2025 10:44 PM [facility] RH type Positive 08/28/2025 10:44 PM [facility] Blood Venipuncture / Unknown 08/28/2025 6:13 AM EST 08/28/2025 7:24 AM EST Linda Rubin MD BLOOD BANK TEST ORDERABLES Final Result [facility]
[address] [place] [address], * (ABNORMAL) Protime-INR (08/28/2025 6:13 AM EST) Protime 18.2(H) 12.2 - 15.3 Seconds 08/28/2025 6:55 AM EST [facility] INR 1.41(H) 0.89 - 1.12 08/28/2025 6:55 AM EST [facility] Blood Line / Unknown 08/28/2025 6: 13 AM EST 08/28/2025 6:33 AM EST us Alma Rosa Lucas APRN LAB BLOOD ORDERABLES Final Result [facility]
[address] [place] [address], * Fibrinogen (08/28/2025 6:13 AM EST) Fibrinogen 289 203 - 567 mg/dL 08/28/2025 7:24 AM EST [facility] Blood Line / Unknown 08/28/2025 6: 13 AM EST 08/28/2025 6:33 AM EST Alma Rosa Lucas APRN LAB BLOOD ORDERABLES Final Result [facility]
[address] [place] [address], * UT ARTL CATHJ/CANNULJ MNTR/TRANSFUSION SPX PRQ, HC INSERTION ARTERIAL CATH (08/28/2025 5:20 AM EST) Narrative Alma Rosa Lucas APRN - 08/28/2025 5:20 AM EST Alma Rosa Lucas APRN 08/28/2025 5:21 AM Insert Arterial Line Date/Time: 08/28/2025 5:20 AM Performed by: Alma Rosa Lucas APRN Authorized by: Alma Rosa Lucas APRN [place] Protocol: Verbal consent obtained?: Yes Risks and [...] time out verifies correct patient, procedure, equipment, ground crewman mission support and site/side marked as required: Preparation: Preparation: [...] IV THERAPY ORDERABLES Suzanna wright Result * UT INSJ NON-TUNNELED CENTRAL VENOUS CATH AGE 3 [...] to verify the correct patient, procedure, equipment, ground crewman mission support and site/side marked as required. Indications: vascular [...] no immediate complications us Alma Rosa Lucas ASSISTANT REFINERY OPERATOR PROCEDURE/MINOR SURGICAL O RDERABLES Final Result * (ABNORMAL) Blood Gas, Venous With Co-Ox (08/28/2025 2:22 AM EST) Site Nurse/Dr Draw 08/28/2025 2:22 AM [facility] pH, Venous 7.299(L) 7.310 - 7.410 pH Units 08/28/2025 2:22 AM [facility] pCO2, Venous 36.1(L) 41.0 - 51.0 mm Hg 08/28/2025 2:22 AM [facility] Comment:84 Value below refer ence range pO2, Venous 52.1 27.0 - 53.0 mm Hg 08/28/2025 2:22 AM EST [facility] HCO3, Venous 17.7(L) 22.0 - 28.0 mmol/L 08/28/2025 2:22 AM [facility] Base Excess, Venous -8.0(L) -2.0 - 2.0 mmol/L 08/28/2025 2:22 AM [facility] Hemoglobin, Blood Gas 10.2(L) 13.5 - 17.5 g/dL 08/28/2025 2:22 AM [facility] Oxyhemoglobin Venous 84.3 % 06/2025 2:22 AM [facility] Methemoglobin Venous 0.5 % 06/2025 2:22 AM EST [facility] Carboxyhemoglobin Venous 1.4 % 08/28/2025 2:22 AM EST [facility] CO2 Content 18.8(L) 22 - 33 mmol/L 08/28/2025 2:22 AM EST [facility] Temperature 37.0 08/28/2025 2:22 AM EST [facility] Barometric Pressure for Blood Gas 08/28/2025 2:22 AM EST [facility] Comment:N/A Modality Nasal Cannula 08/28/2025 2:22 AM EST [facility] FIO2 26 % 08/28/2025 2:22 AM EST [facility] Rate 0 Breaths/ minute 08/28/2025 2:22 AM EST [facility] PIP 0 cmH2O 08/28/2025 2:22 AM EST [facility] Comment:Meter: [id number] Director Center: [id number] IPAP 0 cm H2O 08/28/2025 2:22 AM EST [facility] EPAP 0 cm H2O 08/28/2025 2:22 AM EST [facility] Venous Blood 08/28/2025 2:22 AM EST 08/28/2025 2:22 AM EST Librado Bangura MD LAB BLOOD ORDERABLES Final Resu lt [facility]
[address] [place] [address], * ECG 12 Lead Rhythm Change (08/28/2025 2:00 AM EST) Only the most recent of2 resultswithin the time period is included. QT Interval 316 ms BH ECG QTC Interval 478 ms ECG 08/28/2025 2:00 AM EST 08/30/2025 11:05 AM EST Narrative BH ECG - 08/30/2025 11:05 AM EST Test [...] By: Luís Ellis MD Alma Rosa Lucas ASSISTANT REFINERY OPERATOR ECG ORDERABLES Final Resu lt ECG * (ABNORMAL) High Sensitivity Troponin T 1Hr (08/27/2025 10:34 PM EST) HS Troponin T 34(H) <22 ng/L 08/27/2025 11:53 PM EST [facility] Troponin T Numeric Delta -5 ng/L 08/27/2025 11:53 PM EST [facility] Troponin T % Delta -13 Abnormal if >/= 20% 08/27/2025 11:53 PM EST [facility] Blood Venipuncture / Unknown 08/27/2025 10:34 PM EST 08/27/2025 11:26 PM EST Narrative [facility] - 08/27/2025 11:53 PM [...] ORDERABLES Final Resul t Performing Organization Address City/[facility]/ZIP Co de Phone Number [facility]
[address] [place] [address], * Hepatitis Panel, Acute (08/27/2025 10:34 PM EST) Hepatitis B Surface Ag Non-Reacti ve Non-Reacti ve 08/28/2025 12:05 AM EST [facility] Hep A IgM Non-Reacti ve Non-Reacti ve 08/28/2025 12:05 AM EST [facility] Hep B C IgM Non-Reacti ve Non-Reacti ve 08/28/2025 12:05 AM EST [facility] Hepatitis C Ab Non-Reacti ve Non-Reacti ve 08/28/2025 12:05 AM EST [facility] Blood Venipuncture / Unknown 08/27/2025 10:34 PM EST 08/27/2025 11:26 PM EST Narrative [facility] - 08/28/2025 12:05 AM EST Results may be falsely decreased if patient taking Biotin. Hermes Jaramillo MD LAB BLOOD ORDERABLES Final Re sult Performing Organization Address City/[facility]/ZIP Co de Phone Number [facility]
[address] [place] [address], [place] [phone] * CT Abdomen Pelvis Without Contrast (08/27/2025 [...] MD 08/27/2025 10:25 PM EST Workstation ID: [id number] Narrative 08/27/2025 10:[address] ABDOMEN [...] are non-dilated without wall thickening or mass. Cavanaugh colonic diverticulosis is present. No significant inflammatory [...] MD 08/27/2025 10:25 PM EST Workstation ID: [id number] us Hermes Jaramillo MD IMG CT ORDERABLES Final Resul t * Iron Profile + Ferritin (08/27/2025 7:43 PM EST) Iron 86 59 - 158 mcg/dL 08/27/2025 10:04 PM EST [facility] Iron Saturation (TSAT) 28 20 - 50 % 08/27/2025 10:04 PM EST [facility] Transferrin 209 200 - 360 mg/dL 08/27/2025 10:04 PM EST [facility] TIBC 311 298 - 536 mcg/dL 08/27/2025 10:04 PM EST [facility] Ferritin 160.00 30.00 - 400.00 ng/mL 08/27/2025 10:04 PM EST [facility] Blood Venipuncture / Unknown 08/27/2025 7:43 PM EST 08/27/2025 7:53 PM EST Narrative [facility] - 08/27/2025 10:04 PM EST Results may be falsely decreased if patient taking Biotin. Librado Bangura MD LAB BLOOD ORDERABLES Final Resu lt [facility]
[address] [place] [address], * (ABNORMAL) High Sensitivity Troponin T (08/27/2025 7:43 PM EST) HS Troponin T 39(H) <22 ng/L 08/27/2025 8:56 PM EST [facility] Blood Venipuncture / Unknown 08/27/2025 7:43 PM EST 08/27/2025 7:53 PM EST Narrative [facility] - 08/27/2025 8:56 PM EST High [...] due to an underlying chronic condition. Nesha Flynnandry [facility] LAB BLOOD ORDERABLES Final Resul t Performing Organization Address City/[facility]/ZIP Co de Phone Number [facility]
[address] [place] [address], * IMAGING SCANNED (08/27/2025) Only the most recent of3 resultswithin the time period is included. Anatomical Region Laterality Modality Radiographic Radha ging [facility] IMG DIAGNOSTIC IMAGING ORDERA BLES Final Result * LABS SCANNED (08/27/2025) [facility] LAB BLOOD ORDERABLES Final Re sult from Last 3 Months Insurance MEDICARE A & B Member Subscriber Plan / Payer ( fective 2003-Present) Name:Jayme Thurman Member ID:[id number] Relation to Subscriber:Self Name:Jayme Thurman Subscriber ID:[id number] Payer ID:[id number] Group ID:Not on file Type:Not on file Address: [address] Advance Directives * CPR (Attempt to Resuscitate) (Latest Code Status on File) Date Activated Date Inactivated Comments 08/27/2025 8:05 PM 09/05/2025 5:42 PM Question Answer Comments Code Status (Patient has no pulse and is not breathing): CPR (Attempt to Resuscitate) Medical Interventions (Patie nt has pulse or is breathing): Full Support Level Of Support Discussed With: Patient Care Teams Pony Cylinder Press Operator Relationship Specialty Start Date End Date Lisa Arreola APRN [address] [place] [id number] PCP - General Nurse Practitioner 08/29/25
--- OUTSIDE RECORDS SUMMARY | 2025-09-22 11:44 | XMS_ITS | Encounter Summary ---
Author Organization [place] [address] Care Team Providers Care Harness Tier Name Role Phone Unavailable Primary Care Provider Unavailabl e Encounter Details Date Type Department Care Team (Latest Contact Info) Description 09/10/2025 External Contact SEP Pulmonology [facility] [address] [phone] James Boswell MD [address] [phone] Critical illness myopathy (Primary Dx); [...] Progress Notes * Alejandra Jackson RMA - 09/10/2025 11:59 PM EST Pt was seen at [facility] medical records in their system documented in this encounter Plan of Treatment Not on file documented as of this encounter Visit Diagnoses Diagnosis Critical illness myopathy- Primary COPD, very severe (HCC) Chronic airway obstruction, not elsewhere classified documented in this encounter
--- OUTSIDE RECORDS SUMMARY | 2025-09-22 11:44 | XMS_ITS | Encounter Summary ---
Author Organization [place] [address] Care Team Providers Care Admin Secretary Name Role Phone Unavailable Primary Care Provider Unavailabl e Encounter Details Date Type Department Care Team (Latest Contact Info) Description 09/07/2025 External Contact SEP Pulmonology [facility] [address] [phone] James Boswell MD [address] [phone] Critical illness myopathy (Primary Dx); [...] Progress Notes * Alejandra Jackson RMA - 09/07/2025 11:59 PM EST Pt was seen at [facility] medical records in their system documented in this encounter Plan of Treatment Not on file documented as of this encounter Visit Diagnoses Diagnosis Critical illness myopathy- Primary COPD, very severe (HCC) Chronic airway obstruction, not elsewhere classified documented in this encounter
--- OUTSIDE RECORDS SUMMARY | 2025-09-22 11:46 | XMS_ITS | Encounter Summary ---
Author Organization [place] [address] Care Team Providers Care School Photographer Name Role Phone Unavailable Primary Care Provider Unavailabl e Encounter Details Date Type Department Care Team (Latest Contact Info) Description 09/07/2025 External Contact SEP Pulmonology [facility] [address] [phone] James Boswell MD [address] [phone] Critical illness myopathy (Primary Dx); [...] 11:59 PM EST Pt was seen at [facility]- medical records in their system documented in this encounter Plan of Treatment Not on file documented as of this encounter Visit Diagnoses Diagnosis Critical illness myopathy- Primary COPD, very severe (HCC) Chronic airway obstruction, not elsewhere classified documented in this encounter
--- OUTSIDE RECORDS SUMMARY | 2025-09-22 11:46 | XMS_ITS | Encounter Summary ---
Author Organization [place] [place] [address] Care Team Providers Care Parachute Rigger Name Role Phone Unavailable Primary Care Provider Unavailabl e Encounter Details Date Type Department Care Team (Latest Contact Info) Description 09/06/2025 External Contact SEP Pulmonology [facility] [address] [phone] Wilbur Dominique MD [address] [phone] Critical illness myopathy (Primary Dx); Acute hypercapnic respiratory failure (HCC); Acute pancreatitis, unspecified complication status, unspecified pancreatitis type; COPD, very severe (HCC); Essential hypertension; Lung nodule Social History Tobacco Use Types Packs/Day Years Used Date Smoking Tobacco: Never Assessed Sex and Gender Information Value Date Recorded Sex Assigned at Not on file Legal Sex Male 5:08 AM EDT Gender Identity Not on file Sexual Orientation Not on file documented as of this encounter Progress Notes * Catarina Martin RMA - 09/06/2025 3:51 PM EST Pt was seen at [facility] - medical records in their system Admit date 09/05/25 documented in this encounter Plan of Treatment Not on file documented as of this encounter Visit Diagnoses Diagnosis Critical illness myopathy- Primary Acute hypercapnic respiratory failure (HCC) Acute pancreatitis, unspecified complication status, unspecified pancreatitis type COPD, very severe (HCC) Chronic airway obstruction, not elsewhere classified Essential hypertension Unspecified essential hypertension Lung nodule Solitary pulmonary nodule documented in this encounter
[2025-09-22] MEDS: IOPAMIDOL-300 (61%) 100ML VIAL 100 ML IV (11:51)
[2025-09-22] MEDS: SODIUM CHLORIDE 0.9% 10ML SYR (RAD ONLY) 10 ML IV (11:51)
[2025-09-22 14:50] LABS: Hematocrit 34.1 % (42.0-52.0); Hemoglobin 10.6 g/dL (14.1-18.0); Immature Granulocytes % 1.6 %; Mean Corpuscular HGB Conc 31.1 g/dL (31.8-35.4); Mean Corpuscular Hemoglobin 29.4 pg (27.0-31.2); Mean Corpuscular Volume 94.7 fl (80-94); Nucleated Red Blood Cells % 0 %; Platelet Count 237 K/mm3 (142-424); Red Blood Count 3.60 M/mm3 (4.60-6.20); Red Cell Distribution Width-SD 54.1 fL; White Blood Count 14.4 K/mm3 (4.8-10.8)
[2025-09-22 15:27] LABS: Alanine Aminotransferase 24 U/L (12-78); Albumin Level 3.5 g/dl (3.5-5.0); Albumin/Globulin Ratio 1.4 (1.1-1.8); Alkaline Phosphatase 80 U/L (38-126); Amylase 142 U/L (30-110); Anion Gap 9.4 mEq/L (5-15); Aspartate Amino Transferase 21 U/L (17-59); Bilirubin,Total 0.5 mg/dl (0.2-1.3); Blood Urea Nitrogen 23 mg/dl (9-20); Calcium 8.7 mg/dl (8.4-10.2); Carbon Dioxide 24 mmol/L (22.0-30.0); Chloride 98 mmol/L (98-107); Creatinine,Serum 1.00 mg/dl (0.66-1.25); Estimated Glomerular Filt Rate 71 ml/min (>60); GFR (African American) 86 ML/MIN (>60); Globulin 2.5 g/dL (1.3-3.2); Glucose 132 mg/dl (74-100); Potassium 4.4 mmoL/L (3.5-5.1); Sodium 127 mmol/L (136-145); Total Protein,Serum 6.0 g/dl (6.3-8.2)
[2025-09-22 16:15] LABS: Lipase 884 U/L (23-300)
== END 2025-09-22 23:59 | disposition home or self-care (01) ==
LOC: RAD 11:12
PROVIDERS: PCP Nurse Practitioner; Visit Provider Internal Medicine Medical Oncology
DX: C34.12 Malignant neoplasm of upper lobe, left bronchus or lung (principal); K85.90 Acute pancreatitis without necrosis or infection, unspecified; K83.09 Other cholangitis; R90.89 Other abnormal findings on diagnostic imaging of central nervous system
CPT/HCPCS: 70470; 80053; 82150; 83690; 85025; Q9967

== ENCOUNTER 2025-09-26 15:10 | Inpatient (IN) | payer MEDICARE, OTHER, SELFPAY ==
[2025-09-26 15:07] VITALS: BP 107/45; PULSE 106; RESP 22; TEMP 36.7; O2SAT 98; BMI 28.8
--- NOTE | 2025-09-26 15:13 | HMH.EDGENADL ---
Discharge Plan Disposition Patient Disposition: Admitted Clinical Impressions Clinical Impression: Acute pancreatitis, Cholangitis, Sepsis Discharge ED Provider: Waleska Hoffman General Adult HPI General Chief complaint: Nausea/Vomiting/Diarrhea Stated complaint: Abdominal pain N/V Time Seen by Provider: 09/26/25 15:10 History of Present Illness HPI narrative: Patient is an 84-year-old gentleman with a past medical history of gallbladder surgery on August 27 at [facility] with acute cholangitis at that time who presents to the emergency department with abdominal pain vomiting that started today. Patient states that he felt fine yesterday. Patient states that he had multiple episodes of vomiting today without associated blood. Patient reports 1 episode of diarrhea. Patient denies any fevers at home. Patient denies any new chest pain but reports chronic shortness of breath. Patient does report diffuse abdominal pain worse in his epigastric region. Patient denies any other recent surgeries. Patient denies a history of heart failure. Related Data Home Medications ?Medication ?Instructions ?Recorded ?Confirmed ascorbic acid (vitamin C) 500 mg 500 mg PO DAILY 01/29/24 09/22/25 tablet aspirin 81 mg tablet,delayed 81 mg PO DAILY 04/28/25 09/22/25 release (Adult Low Dose Aspirin) omeprazole 20 mg capsule,delayed 20 mg PO DAILY 04/28/25 09/22/25 release furosemide 20 mg tablet 20 mg PO DAILY 09/13/25 09/22/25 lisinopril 20 mg tablet 20 mg PO BID 09/13/25 09/22/25 nitroglycerin 0.4 mg sublingual mg sublingual PRN 09/20/25 09/22/25 tablet terazosin 5 mg capsule 5 mg PO QPM 09/20/25 09/22/25 Previous Rx's ?Medication ?Instructions ?Recorded cyanocobalamin (vitamin B-12) 1,000 mcg PO DAILY #30 tabs 02/01/25 1,000 mcg tablet ferrous sulfate 325 mg (65 mg 325 mg PO BID #60 tabs 07/13/25 iron) tablet glycopyrrolate 9 mcg-formoterol 2 puff inhalation BID #10.7 grams 07/28/25 4.8 mcg HFA aerosol inhaler (Bevespi Aerosphere) cetirizine 10 mg tablet 10 mg PO DAILY #90 tabs 08/02/25 docusate sodium 100 mg capsule 100 mg PO DAILY PRN constipation 08/02/25 (Stool Softener) #90 caps doxazosin 4 mg tablet 4 mg PO QHS bladder #90 tabs 08/02/25 fluticasone propionate 50 1 spray intranasal DAILY #16 grams 08/02/25 mcg/actuation nasal spray,suspension montelukast 10 mg tablet 10 mg PO DAILY #90 tabs 08/02/25 albuterol sulfate 2.5 mg/3 mL 2.5 mg (3 mL) inhalation Q6H #360 09/13/25 (0.083 %) solution for nebulization mL albuterol sulfate 90 mcg/actuation 2 puff inhalation Q6H PRN 09/13/25 aerosol inhaler shortness of breath or wheezing 30 days #8.5 grams prednisone 20 mg tablet 20 mg PO .COMPLEX #15 tabs 09/13/25 Allergies Allergy/AdvReac Type Severity Reaction Status Date / Time [id number]-[id number]-[id number] Reductase AdvReac Intermediate MUSCLE Verified 09/22/25 09:55 Inhibitor (Yaxlwtm-Nzs-Prq ACHES Reductase Inhibitor) azithromycin AdvReac Mild ANXIETY Verified 09/22/25 09:55 [facility] Disclaimer: The information contained in this section may have been updated after the patient was seen, as this information can be updated by other users. 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, face Lung nodule Neoplasm of uncertain behavior of skin of face Right inguinal pain Vitamin B12 deficiency Anemia Dyspnea on exertion Fibrosis of lung History of smoking 30 or more pack years Coronary artery disease Medical mgt (AUG 2023) Abnormal PFT COPD (chronic obstructive pulmonary disease) Shortness of breath Neoplasm of uncertain behavior of skin of face Impacted cerumen, left ear Edema of both lower extremities Essential hypertension IFG (impaired fasting glucose) Prostate cancer Dyslipidemia Hypertension Surgical History History of cholecystectomy History of hernia repair History of appendectomy Family History Other Cancer Social History Smoking Status: Never smoker smoking status stop date: 35 years ago second hand exposure: No alcohol intake: never substance use type: denies use current occupational status: retired Travel in the last 8 weeks?: None household members: spouse housing: house current occupational exposures/hazards: No caffeine: Yes Have you lived/traveled outside [place] in past 30 days?: No Contact w/someone who lives/traveled outside US past 30 days?: No Exposure to someone with infectious disease in past 14 days?: No Do you have a fever (greater than 100.4 F or 38 C)?: No Have you tested positive for COVID-19?: No Exposed to someone with COVID-19 in past 14 days?: No Do you have a sore throat?: No Do you have a cough?: No Do you have any weakness?: No Do you have any diarrhea?: No Are you experiencing any unusual bleeding?: No Do you have any muscle aches/pain?: No Do you have any abdominal pain?: No Are you experiencing loss of taste or smell?: No Other Medical History Have you received the Flu Vaccine for this season: Yes Have you received the Pneumonia Vaccine: Yes ROS Obtained: Yes All systems reviewed & no additional complaints except as documented and Yes Systems reviewed as appropriate & no additional complaints except as documented Physical Exam General General appearance: alert and in no apparent distress Head Head exam: atraumatic, normocephalic and normal inspection Eye Eye exam: Present normal appearance, PERRL and EOMI; Absent scleral icterus ENT ENT exam: Present normal exam and normal external ear exam Neck Neck exam: Present normal inspection and full ROM Chest Chest inspection: Present normal inspection and symmetric chest wall rise Respiratory Respiratory exam: Present normal lung sounds bilaterally; Absent respiratory distress or wheezes Cardiovascular Cardiovascular exam: Present regular rate, normal rhythm and normal heart sounds Abdominal Exam Abdominal exam: Present soft, distention and tenderness (diffuse but worse in the epigastric); Absent guarding or rebound Extremities Exam Extremities exam: Present normal inspection and full ROM Back Exam Back exam: Present normal inspection and full ROM Neurological Exam Neurological exam: Present alert and oriented X3 Psychiatric Psychiatric exam: Present normal affect and normal mood Skin Skin exam: Present warm and dry Medical Decision Making Medical Records Medical records reviewed: Yes I reviewed the patient's medical records. Screening: Per USPSTF and CDC recommendations, given the prevalence of disease in our region, it is our hospital?s policy to screen for HIV and viral Hepatitis for all patients aged 18 and over and those with ongoing risk factors. Kuldip Inquiry Pt receiving controlled substance: No Vital Signs: 09/26/25 15:07 09/26/25 16:31 09/26/25 17:01 Temperature 98.0 F Temperature Source Oral Pulse Rate 109 H 115 H Pulse Rate [Left Radial] 106 H Respiratory Rate 22 29 H 19 Blood Pressure 104/57 L 137/65 Blood Pressure [Right Arm] 107/45 L Blood Pressure Mean [Right Arm] 65 Blood Pressure Source Blood Pressure Position 02 Sat by Pulse Oximetry 98 96 95 Oxygen Delivery Method Room Air Room Air Room Air 09/26/25 17:50 Temperature 98.3 F Temperature Source Oral Pulse Rate 106 H Pulse Rate [Left Radial] Respiratory Rate 14 Blood Pressure 137/61 Blood Pressure [Right Arm] Blood Pressure Mean [Right Arm] Blood Pressure Source Automatic Cuff Blood Pressure Position Supine 02 Sat by Pulse Oximetry Oxygen Delivery Method Room Air Lab Data Lab results reviewed: Yes I reviewed the patient's lab results. Lab Results 09/26/25 15:14: ESR 100 H, PT 10.4, INR 0.93, APTT 17.4 L, Sodium 133 L, Potassium 4.7, Chloride 102, Carbon Dioxide 20 L, Anion Gap 15.7 H, BUN 14, Creatinine 1.00, Estimated Creat Clear 66, Estimated GFR 71, Est GFR ( Amer) 86, Glucose 174 H, Calcium 8.6, Phosphorus 3.0, Magnesium 2.5 H, Total Bilirubin 1.3, AST 382 H*, ALT 166 H, Alkaline Phosphatase 258 H, Total Creatine Kinase 36 L, Troponin I < 0.01, C-Reactive Protein 38.2 H, NT-Pro-B Natriuret Pep 681 H, Total Protein 6.5, Albumin 3.6, Globulin 2.9, Albumin/Globulin Ratio 1.2, Lipase 14329 H 09/26/25 15:52: WBC 20.4 H*, RBC 3.67 L, Hgb 10.8 L, Hct 34.1 L, MCV 92.9, MCH 29.4, MCHC 31.7 L, RDW 14.9, Plt Count 184, MPV 9.2, Neut % (Auto) 88.7 H, Lymph % (Auto) 5.3 L, [place] % (Auto) 4.6, Eos % (Auto) 0.3, Baso % (Auto) 0.1, Neut # (Auto) 18.1 H, Lymph # (Auto) 1.1, [place] # (Auto) 0.9, Eos # (Auto) 0.1, Baso # (Auto) 0.0, VBG pH 7.31, VBG pCO2 43.1, VBG pO2 32.3, VBG HCO3 21.1 L, VBG Total CO2 22.4 L, VBG O2 Saturation 56.9, VBG Base Excess -5.2 L, VBG Lactic Acid 3.1 H 09/26/25 15:52 09/26/25 15:14 Orders (Tests/Meds): ED MEDICATIONS Generic Name Dose Route Start Last Admin Trade Name Freq PRN Reason Stop Dose Admin Vancomycin/PEG/NADA/Lysine/Water 1.75 gm in 350 mls @ 175 mls/hr 09/26/25 16:45 09/26/25 16:54 Vancomycin 1.75gm/350ml (Peg) Premix IV 09/26/25 18:44 175 mls/hr ONCE ONE Administration Miscellaneous 1 each 09/26/25 16:45 09/26/25 17:20 Vancomycin Consult Request NOTAPPLIC 10/26/25 16:44 Not Given CONSULT PHARMACY DAPHNIE Discontinued Medications Generic Name Dose Route Start Last Admin Trade Name Freq PRN Reason Stop Dose Admin Hydromorphone HCl 0.5 mg 09/26/25 16:58 09/26/25 17:07 Hydromorphone 2mg/Ml Syringe IV 09/26/25 16:59 0.5 mg ONCE ONE Administration Lactated Ringer's 1,000 mls @ 999 mls/hr 09/26/25 15:28 09/26/25 17:20 Lactated Ringer's 1000 Ml Bag IV 09/26/25 16:28 Infused .Q1H1M ONE Infusion Lactated Ringer's 1,000 mls @ 999 mls/hr 09/26/25 16:52 09/26/25 17:56 Lactated Ringer's 1000 Ml Bag IV 09/26/25 17:52 999 mls/hr .Q1H1M ONE Administration Iopamidol 70 ml 09/26/25 16:09 09/26/25 16:10 Iopamidol-370 (76%);100ml Bottle IV 09/26/25 16:10 70 ml ONCE ONE Administration Morphine Sulfate 4 mg 09/26/25 16:21 09/26/25 16:58 Morphine 4mg/Ml Syringe IV 09/26/25 16:22 Not Given ONCE ONE Ondansetron HCl 4 mg 09/26/25 15:28 09/26/25 15:51 Ondansetron 4mg/2ml Vial IV 09/26/25 15:29 4 mg ONCE ONE Administration Sodium Chloride 10 ml 09/26/25 16:09 09/26/25 16:09 Sodium Chloride 0.9% 10ml Syr (Rad Only) IV 09/26/25 16:10 10 ml ONCE ONE Administration Sodium Chloride 50 ml 09/26/25 16:09 09/26/25 16:09 0.9 % Sodium Chloride 50 Ml Vial IV 09/26/25 16:10 50 ml ONCE ONE Administration ORDERS Category Date Time Status CT abdomen pelvis w con Stat Cat Scan 09/26/25 15:[address] angio chest PE protocol Stat Cat Scan 09/26/25 15:24 Completed Activated Partial Thrombo Time Stat Lab 09/26/25 15:14 Completed BNP [NT Pro Brain Natriuretic Pep.] Stat Lab 09/26/25 15:14 Completed C-Reactive Protein Stat Lab 09/26/25 15:14 Completed CBC w/Auto Diff [Complete Blood Count Auto Diff] Stat Lab 09/26/25 15:52 Completed CMP [Comprehensive Metabolic Panel] Stat Lab 09/26/25 15:14 Completed Creatine Kinase Stat Lab 09/26/25 15:14 Completed Erythrocyte Sedimentation Rate Stat Lab 09/26/25 15:14 Completed Lipase Stat Lab 09/26/25 15:14 Completed MAG [Magnesium] Stat Lab 09/26/25 15:14 Completed PHOS [Phosphorous] Stat Lab 09/26/25 15:14 Completed Prothrombin Time INR Stat Lab 09/26/25 15:14 Completed Trop I [Troponin I] Stat Lab 09/26/25 15:14 Completed Troponin I Q3H Lab 09/26/25 18:30 Ordered Troponin I Q3H Lab 09/26/25 21:30 Ordered UA [Urinalysis and Microscopic] Stat Lab 09/26/25 15:56 Ordered Blood Culture Stat Micro 09/26/25 15:14 Received Urine Culture Stat Micro 09/26/25 15:56 Ordered VBG [Venous Blood Gas] Stat RT 09/26/25 15:52 Completed Medical Decision Narrative: Patient is an 84-year-old gentleman with a past medical history of recent cholangitis and recent gallbladder surgery who presented to the emergency department with abdominal pain and vomiting. On arrival, patient was tachycardic, borderline hypotensive with a MAP in the low 60s. Vital signs were otherwise unremarkable. Differential includes but not limited to: Sepsis, dehydration, electrolyte abnormalities, intra-abdominal abscess, choledocholithiasis, cholangitis, pulmonary embolism, pneumonia, urinary tract infection, amongst others. Given patient's presentation, labs were obtained as well as CT scans patient was ordered IV fluids pain medication and nausea medication. Patient's labs were concerning for a white count of 20 and in the setting of borderline hypotension and tachycardia, sepsis order set was ordered. Patient's labs were reviewed and interpreted by myself: CBC showed a leukocytosis of 28, with neutrophil dominance, INR was normal. CMP notable for transaminitis but no elevated bilirubin. VBG with a lactate of 3.1 but no acidosis. CK not resulted back. Initial troponin less than 0.01. Lipase 15,935. CT scan of the abdomen and chest were obtained. CT scan of the chest showed known pulmonary nodules but no other acute pathology. CT of the abdomen showed dilated common bile duct without other acute pathology. Patient was ordered Zosyn and vancomycin for sepsis and concern for possible cholangitis. Patient was ordered a second liter of IV fluids. I discussed the case with Dr. Heidi BROWN who will be available to do ERCP tomorrow. Patient was ultimately admitted to the hospital for further workup and evaluation. Critical Care Critical Care Time Critical Care Time: Yes Attestation: On 09/26/25, the high probability of a clinically significant, sudden or life threatening deterioration of the following system(s) required my full and direct attention, intervention and personal management. The time I documented below is in addition to time spent performing reported procedures but includes the following listed in this critical care notation. Total Time Total Critical Care Time: 35
--- NOTE | 2025-09-26 15:21 | ECG_ITS ---
APPROVED REPORT Exam: Resting ECG HR:99 bpm ECG Measurements Heart Rate 99 AXES GA 138 P 53 QRSd 92 QRS -26 QT 347 T 66 QTc 403 Conclusion SINUS RHYTHM PROBABLE INFERIOR MYOCARDIAL INFARCTION , PROBABLY OLD [35 ms Q WAVE IN II/aVF] ABNORMAL ECG UNCONFIRMED REPORT Electronically signed by : Wilbur Law, 09/26/2025 16:35:17
--- NOTE | 2025-09-26 15:24 | CT_ITS ---
PROCEDURE INFORMATION: Exam: CT Abdomen And Pelvis With Contrast Exam date and time: 09/26/2025 4:07 PM Age: 84 years old Clinical indication: Abdominal pain; Additional info: Abdominal tenderness TECHNIQUE: Imaging protocol: Computed tomography of the abdomen and pelvis with contrast. Radiation optimization: All CT scans at this facility use at least one of these dose optimization techniques: automated exposure control; mA and/or kV adjustment per patient size (includes targeted exams where dose is matched to clinical indication); or iterative reconstruction. Contrast material: ISOVUE; Contrast volume: 70 ml; Contrast route: IV; COMPARISON: CT ANGIO ABDOMEN PELVIS 08/27/2025 12:43 PM FINDINGS: Tubes, catheters and devices: Prostatic radiation beads are present. Lungs: Stable left lung base nodules, the largest measuring 2.6 x 2 cm. Stable reticular ground-glass consolidations in the left lung base, abutting on the pleura. Consider follow-up chest CT. No acute consolidations. Diaphragm: Moderate hiatal hernia. Liver: Slightly nodular liver contour, concerning for early hepatocellular disease. Correlation with pertinent labs is recommended. Multiple simple liver cysts, largest measuring 1.6 cm. Scattered subcentimeter hypodense liver lesions which are too small to characterize. Consider follow-up with ultrasound. Heterogeneous area of low-density in the left liver lobe. Incompletely characterized in this exam. Nonemergent ultrasound follow-up is recommended. Gallbladder and biliary ducts: Stable mild intra and extrahepatic biliary ductal dilation. Cholecystectomy. CBD measures up to 11 mm. No radiopaque CBD or biliary stones. Pancreas: The pancreas is normal. Spleen: The spleen is normal. Adrenal glands: Adrenal glands are normal in size and morphology. No masses or suspicious nodules. Kidneys and ureters: The right kidney is normal. Simple cyst in the left kidney measuring 2 cm. No follow-up is recommended. The left kidney is otherwise unremarkable. No hydroureter. Stomach and bowel: Diffuse colonic diverticulosis. Mild constipation. No bowel obstruction or significant bowel wall thickening. Appendix: Appendix is not confidently visualized on this examination, however there are no significant inflammatory changes to the right lower quadrant. Intraperitoneal space: There is no evidence of free intraperitoneal or pelvic fluid. No intraperitoneal fluid collections. There is no free intraperitoneal air. Vasculature: Severe atherosclerotic calcification of the arterial vasculature. No aortic aneurysm. Portal venous system is patent. Lymph nodes: No concerning adenopathy. Urinary bladder: No urinary bladder wall thickening, large masses, or stones. Reproductive: Unremarkable as visualized. Bones/joints: Bone demineralization. Moderate multilevel degenerative changes of the spine. No acute skeletal abnormality or aggressive osseous lesion. Soft tissues: Nonobstructing fat containing right inguinal hernia. Nonobstructing fat containing left inguinal hernia. 1.9 x 4 cm intramuscular lipoma in the left gluteus joseph. No acute soft tissue findings. IMPRESSION: 1. No acute findings. 2. Incidental findings as above. COMMENTS: Consistent with the [employer]'s Incidental Findings Committee white paper (J Am Cecil Radiol 2018): Any incidental renal lesion less than 1 cm or classified as too small to characterize, or any incidental cystic renal lesion characterized as simple-appearing, is likely benign. No follow-up imaging is recommended for these lesions per consensus recommendations based on imaging criteria.
--- NOTE | 2025-09-26 15:24 | CT_ITS ---
PROCEDURE INFORMATION: Exam: CTA Chest With Contrast Exam date and time: 09/26/2025 4:07 PM Age: 84 years old Clinical indication: Shortness of breath TECHNIQUE: Imaging protocol: Computed tomographic angiography of the chest with contrast. Exam focused on the arteries. 3D rendering (Not supervised by radiologist): MIP and/or 3D reconstructed images were created by the technologist. Radiation optimization: All CT scans at this facility use at least one of these dose optimization techniques: automated exposure control; mA and/or kV adjustment per patient size (includes targeted exams where dose is matched to clinical indication); or iterative reconstruction. Contrast material: ISO 370; Contrast volume: 70 ml; Contrast route: INTRAVENOUS (IV); COMPARISON: CT ANGIO CHEST 08/27/2025 12:43 PM FINDINGS: Pulmonary arteries: The pulmonary arteries are normal in course and caliber. Bolus timing is insufficient for definitive exclusion of small peripheral pulmonary emboli. No large emboli within the main pulmonary arteries. Aorta: Moderate diffuse calcific atherosclerosis of the aorta. No acute pathology in the aorta. No aortic aneurysm. Other arteries: Left vertebral artery arises from the aorta, a anatomical variant. Thyroid: 1.3 cm left thyroid lobe nodule. Nonemergent ultrasound follow-up is recommended. Trachea: Airways are patent. Lungs: Lung hyperexpansion, favoring COPD. Lung hyperlucency, favoring emphysema. Bilateral apical capping/scarring. Stable 8 mm slightly spiculated nodule in the right upper lobe (series 5, image 37). Stable spiculated 1.8 cm ground-glass nodule in the right upper lobe (series 5, image 60). Stable slightly nodular ground-glass patchy opacities in the left upper lobe. 2 cm nodular mass in the left upper lobe is stable (series 5, image 54). 2.7 cm mass in the left lower lobe, abutting on the major fissure, is stable (series 5, image 94). Stable reticular ground-glass patchy opacities throughout the periphery of the left lower lobe. Stable 12 mm pleural-based nodule with central calcification in the left lower lobe (series 5, image 92). Other smaller sub 6 mm scattered lung nodules are also stable. No consolidations. Pleural spaces: No pleural effusions or pneumothorax. Heart: Calcifications of the aortic valve annulus. No cardiomegaly. No pericardial thickening or effusion. Coronary arteries: There is moderate atherosclerotic calcification of the coronary arteries. Lymph nodes: No concerning adenopathy. Diaphragm: Moderate hiatal hernia. Bones/joints: Bone demineralization. Mild multilevel degenerative changes of the spine. No acute skeletal abnormality or aggressive osseous lesion. Soft tissues: No acute soft tissue findings. IMPRESSION: 1. No acute findings. 2. Stable bilateral lung nodules and masses.Consider non-emergent PET/CT or tissue sampling. (Reference: Griselda) 3. Incidental findings as above. COMMENTS: 1. Please review abdomen and pelvic CT performed on the same date for other findings. 2. Consistent with the [employer]'s Incidental Findings Committee white paper (J Am Cecil Radiol 2015): In patients aged 35 years and older with an incidental thyroid nodule equal to or greater than 1.[address], MRI or extrathyroidal US, further evaluation with dedicated thyroid US is recommended for patients with normal life expectancy and without comorbidities. For smaller nodules without suspicious features, no further evaluation or follow up is recommended. REFERENCES: Griselda Goncalves, et al. Guidelines for Management of Incidental Pulmonary Nodules Detected on CT Images: From the Fleischner Society 2017. Radiology. 2017;284(1):228-243.
[2025-09-26 15:30] VITALS: BMI 29.6
[2025-09-26 15:51] LABS: Alanine Aminotransferase 166 U/L (12-78); Albumin Level 3.6 g/dl (3.5-5.0); Albumin/Globulin Ratio 1.2 (1.1-1.8); Alkaline Phosphatase 258 U/L (38-126); Anion Gap 15.7 mEq/L (5-15); Aspartate Amino Transferase 382 U/L (17-59); Bilirubin,Total 1.3 mg/dl (0.2-1.3); Blood Urea Nitrogen 14 mg/dl (9-20); Calcium 8.6 mg/dl (8.4-10.2); Carbon Dioxide 20 mmol/L (22.0-30.0); Chloride 102 mmol/L (98-107); Creatinine Clearance Estimated 66 mL/min (50-200); Creatinine,Serum 1.00 mg/dl (0.66-1.25); Estimated Glomerular Filt Rate 71 ml/min (>60); GFR (African American) 86 ML/MIN (>60); Globulin 2.9 g/dL (1.3-3.2); Glucose 174 mg/dl (74-100); Magnesium 2.5 mg/dl (1.6-2.3); Phosphorous 3.0 mg/dl (2.5-4.5); Potassium 4.7 mmoL/L (3.5-5.1); Sodium 133 mmol/L (136-145); Total Protein,Serum 6.5 g/dl (6.3-8.2)
[2025-09-26] MEDS: ONDANSETRON 4MG/2ML VIAL 4 MG IV (15:51)
[2025-09-26] MEDS: LACTATED RINGERS 1000ML 1,000 ML 999 ML IV ×2 (15:51→17:56)
[2025-09-26 16:00] LABS: NT Pro Brain Natriuretic Pep. 681 pg/mL (0-450)
[2025-09-26 16:00] LABS: Hematocrit 34.1 % (42.0-52.0); Hemoglobin 10.8 g/dL (14.1-18.0); Immature Granulocytes % 1.0 %; Mean Corpuscular HGB Conc 31.7 g/dL (31.8-35.4); Mean Corpuscular Hemoglobin 29.4 pg (27.0-31.2); Mean Corpuscular Volume 92.9 fl (80-94); Nucleated Red Blood Cells % 0 %; Platelet Count 184 K/mm3 (142-424); Red Blood Count 3.67 M/mm3 (4.60-6.20); Red Cell Distribution Width-SD 50.7 fL; White Blood Count 20.4 K/mm3 (4.8-10.8)
[2025-09-26 16:02] LABS: VBG HCO3 21.1 mmol/L (23-30); VBG PCO2 43.1 mmol/L (35-51); VBG PH 7.31 mmol/L (7.31-7.41); VBG PO2 32.3 mmol/L (28-40)
[2025-09-26 16:03] LABS: Troponin I < 0.01 ng/ml (0.00-0.034)
[2025-09-26 16:06] LABS: Lactate Venous 3.1 mmol/L (0.4-2.0)
[2025-09-26 16:09] LABS: Lipase 15935 U/L (23-300)
[2025-09-26] MEDS: 0.9 % SODIUM CHLORIDE 50 ML VIAL IV (16:09)
[2025-09-26] MEDS: SODIUM CHLORIDE 0.9% 10ML SYR (RAD ONLY) 10 ML IV (16:09)
[2025-09-26] MEDS: IOPAMIDOL-370 (76%);100ML BOTTLE 70 ML IV (16:10)
--- NOTE | 2025-09-26 16:11 | PC.NURSE ---
CRITICAL LIPASE 98, 536. PT NAME AND R/V. DR FITZGERALD NOTIFIED
[2025-09-26 16:23] LABS: INR 0.93 (0.9-1.1); Prothrombin Time 10.4 seconds (10.1-12.5)
[2025-09-26 16:27] LABS: C-Reactive Protein 38.2 mg/L (0-4)
[2025-09-26 16:31] VITALS: BP 104/57; PULSE 109; RESP 29; O2SAT 96
[2025-09-26 16:31] LABS: Creatine Kinase 36 U/L (55-170)
[2025-09-26] MEDS: VANCOMYCIN/WATER FOR INJ (PEG) 1.75 GM/350 ML PIGGYBACK IV (16:54)
[2025-09-26 17:01] VITALS: BP 137/65; PULSE 115; RESP 19; O2SAT 95
[2025-09-26] MEDS: HYDROMORPHONE 2MG/ML SYRINGE 0.5 MG IV (17:07)
[2025-09-26 17:14] LABS: Activated Partial Thrombo Time 17.4 seconds (22.8-30.6)
--- NOTE | 2025-09-26 17:47 | PC.NURSE ---
report called to marleen on second floor
[2025-09-26 17:50] VITALS: BP 137/61; PULSE 106; RESP 14; TEMP 36.8; O2SAT 93
[2025-09-26 18:00] VITALS: BP 134/64; PULSE 116; RESP 18; TEMP 37.3; O2SAT 93
--- NOTE | 2025-09-26 18:13 | PC.NURSE ---
arrived to floor at 18:03
[2025-09-26] MEDS: PIPERCILLIN/TAZO 3.375 GM in 0.9 % SODIUM CHLORIDE 50 ML IV (19:28)
[2025-09-26 19:43] LABS: Troponin I < 0.01 ng/ml (0.00-0.034)
[2025-09-26 20:00] VITALS: BP 129/61; PULSE 100; RESP 16; TEMP 36.7; O2SAT 94
[2025-09-26 20:05] LABS: Reflex Lactic Add Lactic Reflex
[2025-09-26] MEDS: KETOROLAC 15MG/ML VIAL 15 MG IV (20:08)
[2025-09-26] MEDS: LACTATED RINGERS 1000ML 1,000 ML 150 ML IV (20:08)
[2025-09-26 22:12] LABS: Lactic Acid Follow Up (RFLX 1) 2.0 mmol/L (0.7-2.1)
[2025-09-26 22:33] LABS: Troponin I < 0.01 ng/ml (0.00-0.034)
[2025-09-27] VITALS (22 sets, daily range): BP systolic 88–144; BP diastolic 44–68; PULSE 76–107; RESP 12–18; TEMP 36.4–37.2; O2SAT 91–99; BMI 28.2
[2025-09-27] MEDS: PIPERCILLIN/TAZO 3.375 GM in 0.9 % SODIUM CHLORIDE 50 ML IV ×4 (01:40→18:47)
[2025-09-27] MEDS: IPRATROPIUM/ALBUTEROL 3 ML NEB IH ×2 (01:44→10:48)
--- NOTE | 2025-09-27 02:06 | P.HP_ITS ---
<Statement entered by Rai Talavera MD - 09/27/25 07:39> Rounded on patient after nurse practitioner. Personally examined and interviewed patient. Agree with exam findings and care plan as documented. History of Present Illness *Admission Date: 09/26/25 *Reason for visit:: Abdominal pain *History of present illness: This is an 84-year-old male with past medical history of recent cholangitis and cholecystectomy, CAD, COPD, hypertension, hyperlipidemia, BIANCA and new diagnosis of NSCLC who presents to the emergency department complaining of abdominal pain. Of note, patient had recent presentation here approximate 1 month ago for abdominal pain and was found to have cholangitis [facility] where he underwent ICU stay with cholecystectomy. He presents back today with complaints of epigastric pain. States has been doing well since discharge from [facility] until today when he developed abdominal pain, vomiting States that he has had difficulty with oral intake over the last day or two. Denies any fever. On arrival to the emergency department he was noted to be have borderline hypotension and tachycardia. CT abdomen pelvis was obtained and notable for common bile duct dilatation but no other pathology. Labs notable for leukocytosis of 28, transaminitis, normal bilirubin, lactic acid of 3.1, lipase of 15,000. Given his concern for cholangitis, Dr. Gordon was consulted and recommends hospitalization with likely MRCP versus ERCP in the a.m. At the time of admission he had improved pain control with improved vital signs. He is admitted to the hospitalist service at this time. [facility] Disclaimer: The information contained in this section may have been updated after the patient was seen, as this information can be updated by other users. 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, face Lung nodule Neoplasm of uncertain behavior of skin of face Right inguinal pain Vitamin B12 deficiency Anemia Dyspnea on exertion Fibrosis of lung History of smoking 30 or more pack years Coronary artery disease Medical mgt (AUG 2023) Abnormal PFT COPD (chronic obstructive pulmonary disease) Shortness of breath Neoplasm of uncertain behavior of skin of face Impacted cerumen, left ear Edema of both lower extremities Essential hypertension IFG (impaired fasting glucose) Prostate cancer Dyslipidemia Hypertension Surgical History History of cholecystectomy History of hernia repair History of appendectomy Family History Other Cancer Social History Smoking Status: Never smoker smoking status stop date: 35 years ago second hand exposure: No alcohol intake: never substance use type: denies use current occupational status: retired Travel in the last 8 weeks?: None household members: spouse housing: house current occupational exposures/hazards: No caffeine: Yes Have you lived/traveled outside [place] in past 30 days?: No Contact w/someone who lives/traveled outside [place] past 30 days?: No Exposure to someone with infectious disease in past 14 days?: No Do you have a fever (greater than 100.4 F or 38 C)?: No Have you tested positive for COVID-19?: No Exposed to someone with COVID-19 in past 14 days?: No Do you have a sore throat?: No Do you have a cough?: No Do you have any weakness?: No Do you have any diarrhea?: No Are you experiencing any unusual bleeding?: No Do you have any muscle aches/pain?: No Do you have any abdominal pain?: No Are you experiencing loss of taste or smell?: No Other Medical History Have you received the Flu Vaccine for this season: Yes Have you received the Pneumonia Vaccine: Yes Review of Systems Review of Systems Review of systems:: pertinent systems reviewed and negative unless documented below Review of systems (narrative): Negative except for HPI Meds Home Medications and Allergies Home Medications ?Medication ?Instructions ?Recorded ?Confirmed ?Type ascorbic acid (vitamin C) 500 mg 500 mg PO DAILY 01/2809/22/25 History tablet cyanocobalamin (vitamin B-12) 1,000 mcg PO DAILY #30 t abs 02/01/25 09/22/25 Rx 1,000 mcg tablet aspirin 81 mg tablet,delayed 81 mg PO DAILY 04/28/25 1 11/23/24 History release (Adult Low Dose Aspirin) omeprazole 20 mg capsule,delayed 20 mg PO DAILY 09/22/25 History release ferrous sulfate 325 mg (65 mg 325 mg PO BID #60 tabs 0 07/13/25 09/22/25 Rx iron) tablet glycopyrrolate 9 mcg-formoterol 2 puff inhalation BID #10.7 grams 07/28/25 09/22/25 Rx 4.8 mcg HFA aerosol inhaler (Bevespi Aerosphere) cetirizine 10 mg tablet 10 mg PO DAILY #90 tabs 07/2009/22/25 Rx docusate sodium 100 mg capsule 100 mg PO DAILY PRN con stipation 08/02/25 09/22/25 Rx (Stool Softener) #90 caps doxazosin 4 mg tablet 4 mg PO QHS bladder #90 tabs 08/02/25 09/22/25 Rx fluticasone propionate 50 1 spray intranasal DAILY #16 grams 08/02/25 09/22/25 Rx mcg/actuation nasal spray,suspension montelukast 10 mg tablet 10 mg PO DAILY #90 tabs 07/2009/22/25 Rx albuterol sulfate 2.5 mg/3 mL 2.5 mg (3 mL) inhalation Q6H #360 09/13/25 09/22/25 Rx (0.083 %) solution for nebulization mL albuterol sulfate 90 mcg/actuation 2 puff inhalation Q 6H PRN 09/13/25 09/22/25 Rx aerosol inhaler shortness of breath or wheez ing 30 days #8.5 grams furosemide 20 mg tablet 20 mg PO DAILY 09/13/2502/11 History lisinopril 20 mg tablet 20 mg PO BID 09/13/25 History prednisone 20 mg tablet 20 mg PO .COMPLEX #15 tabs 1 11/13/24 09/22/25 Rx nitroglycerin 0.4 mg sublingual mg sublingual PRN 12/1409/22/25 History tablet terazosin 5 mg capsule 5 mg PO QPM 09/20/25 5 History New Prescriptions to Start Prescriptions: Allergies Allergy/AdvReac Type Severity Reaction Status Date / Time Ptohlld-IWU-CzH Reductase AdvReac Intermediate MUSCLE Verified 09/22/25 09:55 Inhibitor (Umhlbfc-Ayq-Wdi ACHES Reductase Inhibitor) azithromycin AdvReac Mild ANXIETY Verified 09/22/25 09:55 Exam Data for Last 24 hours Vital signs and Labs for Last 24 Hours: Temp Pulse Resp BP Pulse Ox O2 Del Method 98.0 F 98 H 16 129/61 94 L Room Air 09/26/25 20:00 09/27/25 02:00 09/26/25 20:00 09/26/25 20:00 09/26/25 20:00 09/26/25 23:00 Laboratory Results - last 24 hr 09/26/25 15:14: ESR 100 H, PT 10.4, INR 0.93, APTT 17.4 L, Sodium 133 L, Potassium 4.7, Chloride 102, Carbon Dioxide 20 L, Anion Gap 15.7 H, BUN 14, Creatinine 1.00, Estimated Creat Clear 66, Estimated GFR 71, Est GFR ( Amer) 86, Glucose 174 H, Calcium 8.6, Phosphorus 3.0, Magnesium 2.5 H, Total Bilirubin 1.3, AST 382 H*, ALT 166 H, Alkaline Phosphatase 258 H, Total Creatine Kinase 36 L, Troponin I < 0.01, C-Reactive Protein 38.2 H, NT-Pro-B Natriuret Pep 681 H, Total Protein 6.5, Albumin 3.6, Globulin 2.9, Albumin/Globulin Ratio 1.2, Lipase 21105 H 09/26/25 15:52: WBC 20.4 H*, RBC 3.67 L, Hgb 10.8 L, Hct 34.1 L, MCV 92.9, MCH 29.4, MCHC 31.7 L, RDW 14.9, Plt Count 184, MPV 9.2, Neut % (Auto) 88.7 H, Lymph % (Auto) 5.3 L, Frio % (Auto) 4.6, Eos % (Auto) 0.3, Baso % (Auto) 0.1, Neut # (Auto) 18.1 H, Lymph # (Auto) 1.1, Frio # (Auto) 0.9, Eos # (Auto) 0.1, Baso # (Auto) 0.0, VBG pH 7.31, VBG pCO2 43.1, VBG pO2 32.3, VBG HCO3 21.1 L, VBG Total CO2 22.4 L, VBG O2 Saturation 56.9, VBG Base Excess -5.2 L, VBG Lactic Acid 3.1 H 09/26/25 18:45: Troponin I < 0.01 09/26/25 21:53: Lactate 2.0, Troponin I < 0.01 I & O for Last 24 hours: Intake & Output 09/24/25 09/25/25 09/26/25 09/27/25 23:59 23:59 23:59 23:59 Intake Total 2400 / 2400 Balance 2400 / 2400 Weight 88.451 kg Constitutional Constitutional: no acute distress *Routine HEENT Exam Head: Present normocephalic Eye: Present EOMI and PERRL ENT: Present mucous membranes moist *Routine Neck Exam Neck: Present supple; Absent lymphadenopathy *Routine Respiratory Exam Respiratory: Present CTA bilaterally *Routine Cardiovascular Exam Cardiovascular: Present RRR *Routine Abdominal Exam Abdominal: Present soft, normoactive bowel sounds and tenderness (Epigastric); Absent distended, rebound or guarding Comments: Nonperitonitic *Routine Rectal Exam Rectal:: deferred *Routine Genitalia Exam Genitalia:: deferred *Routine Extremities Exam Extremities: Absent cyanosis, clubbing or edema *Routine Skin Exam Skin: Present warm; Absent rash *Routine Neurological Exam Neurological: Present alert and oriented X3 Assessment and Plan *Assessment and plan (1) Sepsis: Status: Acute Qualifiers: Sepsis type: sepsis due to unspecified organism Sepsis acute organ dysfunction status: without acute organ dysfunction Qualified Code(s): A41.9 - Sepsis, unspecified organism Category: Medical Code(s): A41.9 - Sepsis, unspecified organism (2) Cholangitis: Status: Acute Category: Medical Code(s): K83.09 - Other cholangitis (3) Acute pancreatitis: Status: Acute Category: Medical Code(s): K85.90 - Acute pancreatitis without necrosis or infection, unspecified (4) Coronary artery disease: Problem Comment: Medical mgt (AUG 2023) Status: Chronic Qualifiers: Coronary Disease-Associated Artery/Lesion type: [place] artery [place] vs. transplanted heart: [place] heart Associated angina: without angina Qualified Code(s): I25.10 - Atherosclerotic heart disease of [place] coronary artery without angina pectoris Category: Medical Code(s): I25.10 - Atherosclerotic heart disease of [place] coronary artery without angina pectoris (5) COPD (chronic obstructive pulmonary disease): Status: Acute Qualifiers: COPD type: unspecified COPD Qualified Code(s): J44.9 - Chronic obstructive pulmonary disease, unspecified Category: Medical Code(s): J44.9 - Chronic obstructive pulmonary disease, unspecified Plan #Severe sepsis Meets criteria for lactic acidosis, tachycardia, fever 99.2 and leukocytosis Source: GI tract/cholangitis Follow-up blood cultures Initial lactic acid of 3.1, repeat pending Received 30 mL/kg of fluid bolus in the emergency department with stable blood pressure Continue broad-spectrum antibiotic coverage with Zosyn and vancomycin #Abdominal pain #Common bile duct dilatation #Cholangitis #Transaminitis #Acute pancreatitis Dr. Gordon consulted for a.m., ERCP versus MRCP in a.m. Lipase of 15,000, transaminitis noted with normal T. bili. Likely secondary to cholangitis and recent cholecystectomy Continue broad-spectrum antibiotic coverage with Zosyn Repeat hepatic panel in a.m. Repeat lipase in a.m. Continue LR infusion at 150 mL/h N.p.o. after midnight continue multimodal pain medication #COPD Not in exacerbation at this time. Continue home bronchodilators #CAD Continue aspirin 81 mg daily when able #Hypertension Normotensive at this time, will hold home blood pressure medications and restart once able #BIANCA Hemoglobin hematocrit stable. Continue ferrous sulfate once able to take p.o. #Pain management with parenteral controlled substances multimodal pain medicatios #Vancomycin toxicity monitoring requires intensive moniotring for toxicity pharmacy consulted monitor renal function ad serum vanc level and adjust as appropriate
--- NOTE | 2025-09-27 02:22 | EXP.SEPSISRE ---
[facility] Tissue Perfusion Eval Sepsis Re-Evaluation Performed: Yes Date Performed: 09/27/25 Time Performed: 00:00
[2025-09-27 03:24] LABS: Acinetobacter calcoaceticus-ba Not Detected; Bacteroides fragilis Not Detected; CTX-M Not Detected; Candida auris Not Detected; Candida glabrata Not Detected; Enterobacterales Detected; Enterococcus faecalis Not Detected; Enterococcus faecium Not Detected; IMP Not Detected; KPC Not Detected; Klebsiella aerogenes Not Detected; Klebsiella pneumoniae grp Not Detected; NDM Not Detected; OXA-48-like Not Detected; Proteus spp. Not Detected; Salmonella spp. Not Detected; Serratia marcescens Not Detected; Staphylococcus epidermidis Not Detected; Staphylococcus lugdunensis Not Detected; Staphylococcus spp. Not Detected; Stenotrophomonas maltophilia Not Detected; Streptococcus agalactiae(GrpB) Not Detected; Streptococcus pyogenes Group A Not Detected; Streptococcus spp. Not Detected; VIM Not Detected; mcr-1 Not Detected
[2025-09-27 04:44] LABS: Acinetobacter calcoaceticus-ba Not Detected; Bacteroides fragilis Not Detected; CTX-M Not Detected; Candida auris Not Detected; Candida glabrata Not Detected; Enterobacterales Detected; Enterococcus faecalis Not Detected; Enterococcus faecium Not Detected; IMP Not Detected; KPC Not Detected; Klebsiella aerogenes Not Detected; Klebsiella pneumoniae grp Not Detected; NDM Not Detected; OXA-48-like Not Detected; Proteus spp. Not Detected; Salmonella spp. Not Detected; Serratia marcescens Not Detected; Staphylococcus epidermidis Not Detected; Staphylococcus lugdunensis Not Detected; Staphylococcus spp. Not Detected; Stenotrophomonas maltophilia Not Detected; Streptococcus agalactiae(GrpB) Not Detected; Streptococcus pyogenes Group A Not Detected; Streptococcus spp. Not Detected; VIM Not Detected; mcr-1 Not Detected
[2025-09-27 06:29] LABS: Hematocrit 28.4 % (42.0-52.0); Immature Granulocytes % 1.1 %; Mean Corpuscular HGB Conc 32.0 g/dL (31.8-35.4); Mean Corpuscular Hemoglobin 29.4 pg (27.0-31.2); Mean Corpuscular Volume 91.6 fl (80-94); Nucleated Red Blood Cells % 0 %; Platelet Count 155 K/mm3 (142-424); Red Blood Count 3.10 M/mm3 (4.60-6.20); Red Cell Distribution Width-SD 50.7 fL; White Blood Count 21.7 K/mm3 (4.8-10.8)
[2025-09-27 06:46] LABS: Albumin Level 3.0 g/dl (3.5-5.0); Chloride 104 mmol/L (98-107); Potassium 3.9 mmoL/L (3.5-5.1); Sodium 136 mmol/L (136-145)
[2025-09-27 06:49] LABS: Alanine Aminotransferase 319 U/L (12-78); Albumin/Globulin Ratio 1.2 (1.1-1.8); Alkaline Phosphatase 257 U/L (38-126); Anion Gap 14.9 mEq/L (5-15); Aspartate Amino Transferase 371 U/L (17-59); Bilirubin,Total 1.7 mg/dl (0.2-1.3); Blood Urea Nitrogen 15 mg/dl (9-20); Carbon Dioxide 21 mmol/L (22.0-30.0); Creatinine Clearance Estimated 58 mL/min (50-200); Creatinine,Serum 1.10 mg/dl (0.66-1.25); Estimated Glomerular Filt Rate 63 ml/min (>60); GFR (African American) 77 ML/MIN (>60); Globulin 2.5 g/dL (1.3-3.2); Glucose 115 mg/dl (74-100); Total Protein,Serum 5.5 g/dl (6.3-8.2)
[2025-09-27 06:50] LABS: Calcium 7.8 mg/dl (8.4-10.2)
--- NOTE | 2025-09-27 07:16 | EXP.GE.CONS ---
History of Present Illness *Admission Date: 09/26/25 *History of present illness: Mr. Thurman is an 84-year-old gentleman who initially presented to the [facility] ED (on 08/27/2025) and was transferred to the [facility] with abdominal pain. He had acute cholecystitis and underwent cholecystectomy on August 27, 2025. At that time, he did have gallstone pancreatitis. Yesterday, he re-presented to the ED with complaints of epigastric abdominal pain and vomiting. He reported no fever. In the ED he had tachycardia and some hypotension. His CAT scan showed bile duct dilation. He had on labs leukocytosis with white blood cell count 28,000 and a lipase of 15,000. He also had elevation of his transaminases and alkaline phosphatase. His total bilirubin was 1.3 but today is 1.7. The remainder of his labs showed AST 371, ALT 319 and alkaline phosphatase 257. His lipase on 08/27 was 11,592 and this declined down to 884 on 09/22/2025. His lipase yesterday was 15,935. Imaging of the abdomen yesterday did not show evidence of pancreatic inflammation and the CBD was 11 mm. [facility] Disclaimer: The information contained in this section may have been updated after the patient was seen, as this information can be updated by other users. 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, face Lung nodule Neoplasm of uncertain behavior of skin of face Right inguinal pain Vitamin B12 deficiency Anemia Dyspnea on exertion Fibrosis of lung History of smoking 30 or more pack years Coronary artery disease Medical mgt (AUG 2023) Abnormal PFT COPD (chronic obstructive pulmonary disease) Shortness of breath Neoplasm of uncertain behavior of skin of face Impacted cerumen, left ear Edema of both lower extremities Essential hypertension IFG (impaired fasting glucose) Prostate cancer Dyslipidemia Hypertension Surgical History History of cholecystectomy History of hernia repair History of appendectomy Family History Other Cancer Social History Smoking Status: Never smoker smoking status stop date: 35 years ago second hand exposure: No alcohol intake: never substance use type: denies use current occupational status: retired Travel in the last 8 weeks?: None household members: spouse housing: house current occupational exposures/hazards: No caffeine: Yes Have you lived/traveled outside US in past 30 days?: No Contact w/someone who lives/traveled outside US past 30 days?: No Exposure to someone with infectious disease in past 14 days?: No Do you have a fever (greater than 100.4 F or 38 C)?: No Have you tested positive for COVID-19?: No Exposed to someone with COVID-19 in past 14 days?: No Do you have a sore throat?: No Do you have a cough?: No Do you have any weakness?: No Do you have any diarrhea?: No Are you experiencing any unusual bleeding?: No Do you have any muscle aches/pain?: No Do you have any abdominal pain?: No Are you experiencing loss of taste or smell?: No Meds Home Medications and Allergies Home Medications ?Medication ?Instructions ?Recorded ?Confirmed ?Type ascorbic acid (vitamin C) 500 mg 500 mg PO DAILY 01/29/24 09/22/25 History tablet cyanocobalamin (vitamin B-12) 1,000 mcg PO DAILY #30 tabs 02/01/25 09/22/25 Rx 1,000 mcg tablet aspirin 81 mg tablet,delayed 81 mg PO DAILY 04/28/25 09/22/25 History release (Adult Low Dose Aspirin) omeprazole 20 mg capsule,delayed 20 mg PO DAILY 04/28/25 09/22/25 History release ferrous sulfate 325 mg (65 mg 325 mg PO BID #60 tabs 07/13/25 09/22/25 Rx iron) tablet glycopyrrolate 9 mcg-formoterol 2 puff inhalation BID #10.7 grams 07/28/25 09/22/25 Rx 4.8 mcg HFA aerosol inhaler (Bevespi Aerosphere) cetirizine 10 mg tablet 10 mg PO DAILY #90 tabs 08/02/25 09/22/25 Rx docusate sodium 100 mg capsule 100 mg PO DAILY PRN constipation 08/02/25 09/22/25 Rx (Stool Softener) #90 caps doxazosin 4 mg tablet 4 mg PO QHS bladder #90 tabs 08/02/25 09/22/25 Rx fluticasone propionate 50 1 spray intranasal DAILY #16 grams 08/02/25 09/22/25 Rx mcg/actuation nasal spray,suspension montelukast 10 mg tablet 10 mg PO DAILY #90 tabs 08/02/25 09/22/25 Rx albuterol sulfate 2.5 mg/3 mL 2.5 mg (3 mL) inhalation Q6H #360 09/13/25 09/22/25 Rx (0.083 %) solution for nebulization mL albuterol sulfate 90 mcg/actuation 2 puff inhalation Q6H PRN 09/13/25 09/22/25 Rx aerosol inhaler shortness of breath or wheezing 30 days #8.5 grams furosemide 20 mg tablet 20 mg PO DAILY 09/13/25 09/22/25 History lisinopril 20 mg tablet 20 mg PO BID 09/13/25 09/22/25 History prednisone 20 mg tablet 20 mg PO .COMPLEX #15 tabs 09/13/25 09/22/25 Rx nitroglycerin 0.4 mg sublingual mg sublingual PRN 09/20/25 09/22/25 History tablet terazosin 5 mg capsule 5 mg PO QPM 09/20/25 09/22/25 History New Prescriptions to Start Prescriptions: Allergies Allergy/AdvReac Type Severity Reaction Status Date / Time Jwidzqo-FCH-LtJ Reductase AdvReac Intermediate MUSCLE Verified 09/22/25 09:55 Inhibitor (Mkzfeul-Klk-Bzc ACHES Reductase Inhibitor) azithromycin AdvReac Mild ANXIETY Verified 09/22/25 09:55 Exam (Inpt) Vital signs and Labs for Last 24 Hours: Temp Pulse Resp BP Pulse Ox O2 Del Method 98.9 F 102 H 16 107/49 L 93 L Room Air 09/27/25 04:00 09/27/25 04:00 09/27/25 04:00 09/27/25 04:00 09/27/25 04:00 09/27/25 04:00 Laboratory Results - last 24 hr 09/26/25 15:14: ESR 100 H, PT 10.4, INR 0.93, APTT 17.4 L, Sodium 133 L, Potassium 4.7, Chloride 102, Carbon Dioxide 20 L, Anion Gap 15.7 H, BUN 14, Creatinine 1.00, Estimated Creat Clear 66, Estimated GFR 71, Est GFR ( Amer) 86, Glucose 174 H, Calcium 8.6, Phosphorus 3.0, Magnesium 2.5 H, Total Bilirubin 1.3, AST 382 H*, ALT 166 H, Alkaline Phosphatase 258 H, Total Creatine Kinase 36 L, Troponin I < 0.01, C-Reactive Protein 38.2 H, NT-Pro-B Natriuret Pep 681 H, Total Protein 6.5, Albumin 3.6, Globulin 2.9, Albumin/Globulin Ratio 1.2, Lipase 81103 H, A. baumannii (PCR) Not detected, Bacteroides fragilis Not detected, Karely albicans (PCR) Not detected, Karely auris (PCR) Not detected, C. glabrata (PCR) Not detected, C. krusei (PCR) Not detected, C. parapsilosis (PCR) Not detected, C. tropicalis (PCR) Not detected, Cryptococcus neoformans PCR Not detected, Enterobacterales (PCR) Detected A, Enterococc faecalis PCR Not detected, Enterococc faecium PCR Not detected, E. coli (PCR) Detected A, H. influenzae DNA Not detected, Klebsiella aerogenes (PCR) Not detected, Klebsiella oxytoca PCR Not detected, K. pneumoniae group (PCR) Not detected, List. monocytogenes PCR Not detected, N. meningitidis (PCR) Not detected, Proteus species (PCR) Not detected, Salmonella spp. (PCR) Not detected, Serratia marcescens PCR Not detected, Staphylococcus sp PCR Not detected, Staph aureus (PCR) Not detected, mecA/C & MREJ Resist Gene Not applicable, mecA/C-Methicil Resis Gene Not applicable, Staph epidermidis (PCR) Not detected, Staph lugdunensis (TEM-PCR) Not detected, S. maltophilia (PCR) Not detected, Streptococcus sp PCR Not detected, S.agalactiae Grp B DALE Not detected, Strep pneumoniae (PCR) Not detected, S. pyogenes GrpA DALE Not detected, P. aeruginosa (PCR) Not detected, Tristan/B-Vanco Res Genes Not applicable, blaIMP Car res Gene PCR Not detected, KPC-Carbap Res Gene PCR Not detected, blaNDM Car Res Gene PCR Not detected, OXA-48 Carbapenem Resis Gene (PCR) Not detected, blaVIM Car Res Gene PCR Not detected, CTX-M Gene Resistance (PCR) Not detected, MCR-1 Resistance Gene Not detected 09/26/25 15:52: WBC 20.4 H*, RBC 3.67 L, Hgb 10.8 L, Hct 34.1 L, MCV 92.9, MCH 29.4, MCHC 31.7 L, RDW 14.9, Plt Count 184, MPV 9.2, Neut % (Auto) 88.7 H, Lymph % (Auto) 5.3 L, [place] % (Auto) 4.6, Eos % (Auto) 0.3, Baso % (Auto) 0.1, Neut # (Auto) 18.1 H, Lymph # (Auto) 1.1, [place] # (Auto) 0.9, Eos # (Auto) 0.1, Baso # (Auto) 0.0, VBG pH 7.31, VBG pCO2 43.1, VBG pO2 32.3, VBG HCO3 21.1 L, VBG Total CO2 22.4 L, VBG O2 Saturation 56.9, VBG Base Excess -5.2 L, VBG Lactic Acid 3.1 H, A. baumannii (PCR) Not detected, Bacteroides fragilis Not detected, Karely albicans (PCR) Not detected, Karely auris (PCR) Not detected, C. glabrata (PCR) Not detected, C. krusei (PCR) Not detected, C. parapsilosis (PCR) Not detected, C. tropicalis (PCR) Not detected, Cryptococcus neoformans PCR Not detected, Enterobacterales (PCR) Detected A, Enterococc faecalis PCR Not detected, Enterococc faecium PCR Not detected, E. coli (PCR) Detected A, H. influenzae DNA Not detected, Klebsiella aerogenes (PCR) Not detected, Klebsiella oxytoca PCR Not detected, K. pneumoniae group (PCR) Not detected, List. monocytogenes PCR Not detected, N. meningitidis (PCR) Not detected, Proteus species (PCR) Not detected, Salmonella spp. (PCR) Not detected, Serratia marcescens PCR Not detected, Staphylococcus sp PCR Not detected, Staph aureus (PCR) Not detected, mecA/C & MREJ Resist Gene Not applicable, mecA/C-Methicil Resis Gene Not applicable, Staph epidermidis (PCR) Not detected, Staph lugdunensis (TEM-PCR) Not detected, S. maltophilia (PCR) Not detected, Streptococcus sp PCR Not detected, S.agalactiae Grp B DALE Not detected, Strep pneumoniae (PCR) Not detected, S. pyogenes GrpA DALE Not detected, P. aeruginosa (PCR) Not detected, Tristan/B-Vanco Res Genes Not applicable, blaIMP Car res Gene PCR Not detected, KPC-Carbap Res Gene PCR Not detected, blaNDM Car Res Gene PCR Not detected, OXA-48 Carbapenem Resis Gene (PCR) Not detected, blaVIM Car Res Gene PCR Not detected, CTX-M Gene Resistance (PCR) Not detected, MCR-1 Resistance Gene Not detected 09/26/25 18:45: Troponin I < 0.01 09/26/25 21:53: Lactate 2.0, Troponin I < 0.01 09/27/25 06:00: Sodium 136, Potassium 3.9, Chloride 104, Carbon Dioxide 21 L, Anion Gap 14.9, BUN 15, Creatinine 1.10, Estimated Creat Clear 58, Estimated GFR 63, Est GFR ( Amer) 77, Glucose 115 H D, Lactate 1.6, Calcium 7.8 L, Total Bilirubin 1.7 H, AST 371 H*, ALT 319 H*, Alkaline Phosphatase 257 H, Total Protein 5.5 L, Albumin 3.0 L D, Globulin 2.5, Albumin/Globulin Ratio 1.2 I & O for Labs for Last 24 Hours: Intake & Output 09/24/25 09/25/25 09/26/25 09/27/25 23:59 23:59 23:59 23:59 Intake Total 2400 / 2400 1050 / 1050 Output Total 200 / 200 Balance 2400 / 2400 850 / 850 Weight 195 lb 186 lb 6.4 oz Microbiology Reports for the Last 24 Hours: Microbiology 09/26/25 15:52 Blood Blood Culture - Preliminary 09/26/25 15:14 Blood Blood Culture - Preliminary Comments:: Epigastric abdominal tenderness without rebound or guarding, no masses, no hernias lap leonid trocar sites healing Results Labs 09/26/25 15:52 09/27/25 06:00 Labs: Laboratory Results - last 24 hr 09/26/25 15:14: ESR 100 H, PT 10.4, INR 0.93, APTT 17.4 L, Sodium 133 L, Potassium 4.7, Chloride 102, Carbon Dioxide 20 L, Anion Gap 15.7 H, BUN 14, Creatinine 1.00, Estimated Creat Clear 66, Estimated GFR 71, Est GFR ( Amer) 86, Glucose 174 H, Calcium 8.6, Phosphorus 3.0, Magnesium 2.5 H, Total Bilirubin 1.3, AST 382 H*, ALT 166 H, Alkaline Phosphatase 258 H, Total Creatine Kinase 36 L, Troponin I < 0.01, C-Reactive Protein 38.2 H, NT-Pro-B Natriuret Pep 681 H, Total Protein 6.5, Albumin 3.6, Globulin 2.9, Albumin/Globulin Ratio 1.2, Lipase 36505 H, A. baumannii (PCR) Not detected, Bacteroides fragilis Not detected, Karely albicans (PCR) Not detected, Karely auris (PCR) Not detected, C. glabrata (PCR) Not detected, C. krusei (PCR) Not detected, C. parapsilosis (PCR) Not detected, C. tropicalis (PCR) Not detected, Cryptococcus neoformans PCR Not detected, Enterobacterales (PCR) Detected A, Enterococc faecalis PCR Not detected, Enterococc faecium PCR Not detected, E. coli (PCR) Detected A, H. influenzae DNA Not detected, Klebsiella aerogenes (PCR) Not detected, Klebsiella oxytoca PCR Not detected, K. pneumoniae group (PCR) Not detected, List. monocytogenes PCR Not detected, N. meningitidis (PCR) Not detected, Proteus species (PCR) Not detected, Salmonella spp. (PCR) Not detected, Serratia marcescens PCR Not detected, Staphylococcus sp PCR Not detected, Staph aureus (PCR) Not detected, mecA/C & MREJ Resist Gene Not applicable, mecA/C-Methicil Resis Gene Not applicable, Staph epidermidis (PCR) Not detected, Staph lugdunensis (TEM-PCR) Not detected, S. maltophilia (PCR) Not detected, Streptococcus sp PCR Not detected, S.agalactiae Grp B DALE Not detected, Strep pneumoniae (PCR) Not detected, S. pyogenes GrpA DALE Not detected, P. aeruginosa (PCR) Not detected, Tristan/B-Vanco Res Genes Not applicable, blaIMP Car res Gene PCR Not detected, KPC-Carbap Res Gene PCR Not detected, blaNDM Car Res Gene PCR Not detected, OXA-48 Carbapenem Resis Gene (PCR) Not detected, blaVIM Car Res Gene PCR Not detected, CTX-M Gene Resistance (PCR) Not detected, MCR-1 Resistance Gene Not detected 09/26/25 15:52: WBC 20.4 H*, RBC 3.67 L, Hgb 10.8 L, Hct 34.1 L, MCV 92.9, MCH 29.4, MCHC 31.7 L, RDW 14.9, Plt Count 184, MPV 9.2, Neut % (Auto) 88.7 H, Lymph % (Auto) 5.3 L, [place] % (Auto) 4.6, Eos % (Auto) 0.3, Baso % (Auto) 0.1, Neut # (Auto) 18.1 H, Lymph # (Auto) 1.1, [place] # (Auto) 0.9, Eos # (Auto) 0.1, Baso # (Auto) 0.0, VBG pH 7.31, VBG pCO2 43.1, VBG pO2 32.3, VBG HCO3 21.1 L, VBG Total CO2 22.4 L, VBG O2 Saturation 56.9, VBG Base Excess -5.2 L, VBG Lactic Acid 3.1 H, A. baumannii (PCR) Not detected, Bacteroides fragilis Not detected, Karely albicans (PCR) Not detected, Karely auris (PCR) Not detected, C. glabrata (PCR) Not detected, C. krusei (PCR) Not detected, C. parapsilosis (PCR) Not detected, C. tropicalis (PCR) Not detected, Cryptococcus neoformans PCR Not detected, Enterobacterales (PCR) Detected A, Enterococc faecalis PCR Not detected, Enterococc faecium PCR Not detected, E. coli (PCR) Detected A, H. influenzae DNA Not detected, Klebsiella aerogenes (PCR) Not detected, Klebsiella oxytoca PCR Not detected, K. pneumoniae group (PCR) Not detected, List. monocytogenes PCR Not detected, N. meningitidis (PCR) Not detected, Proteus species (PCR) Not detected, Salmonella spp. (PCR) Not detected, Serratia marcescens PCR Not detected, Staphylococcus sp PCR Not detected, Staph aureus (PCR) Not detected, mecA/C & MREJ Resist Gene Not applicable, mecA/C-Methicil Resis Gene Not applicable, Staph epidermidis (PCR) Not detected, Staph lugdunensis (TEM-PCR) Not detected, S. maltophilia (PCR) Not detected, Streptococcus sp PCR Not detected, S.agalactiae Grp B DALE Not detected, Strep pneumoniae (PCR) Not detected, S. pyogenes GrpA DALE Not detected, P. aeruginosa (PCR) Not detected, Tristan/B-Vanco Res Genes Not applicable, blaIMP Car res Gene PCR Not detected, KPC-Carbap Res Gene PCR Not detected, blaNDM Car Res Gene PCR Not detected, OXA-48 Carbapenem Resis Gene (PCR) Not detected, blaVIM Car Res Gene PCR Not detected, CTX-M Gene Resistance (PCR) Not detected, MCR-1 Resistance Gene Not detected 09/26/25 18:45: Troponin I < 0.01 09/26/25 21:53: Lactate 2.0, Troponin I < 0.01 09/27/25 06:00: Sodium 136, Potassium 3.9, Chloride 104, Carbon Dioxide 21 L, Anion Gap 14.9, BUN 15, Creatinine 1.10, Estimated Creat Clear 58, Estimated GFR 63, Est GFR ( Amer) 77, Glucose 115 H D, Lactate 1.6, Calcium 7.8 L, Total Bilirubin 1.7 H, AST 371 H*, ALT 319 H*, Alkaline Phosphatase 257 H, Total Protein 5.5 L, Albumin 3.0 L D, Globulin 2.5, Albumin/Globulin Ratio 1.2 Assessment and Plan *Assessment and plan (1) Choledocholithiasis: Status: Acute Category: Medical Code(s): K80.50 - Calculus of bile duct without cholangitis or cholecystitis without obstruction (2) Cholangitis: Status: Acute Category: Medical Code(s): K83.09 - Other cholangitis (3) Biliary sepsis: Status: Acute Category: Medical Code(s): K83.09 - Other cholangitis (4) Gallstone pancreatitis: Status: Acute Category: Medical Code(s): K85.10 - Biliary acute pancreatitis without necrosis or infection Plan 1. Choledocholithiasis with cholangitis, gallstone pancreatitis and biliary sepsis. Plan to ERCP today with decompression of the biliary tree. Antibiotics have been administered (Zosyn). I have discussed with the patient risk, benefits and alternatives. We will proceed with ERCP presently.
--- NOTE | 2025-09-27 07:21 | P.PNANES_ITS ---
[facility] Disclaimer: The information contained in this section may have been updated after the patient was seen, as this information can be updated by other users. 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, face Lung nodule Neoplasm of uncertain behavior of skin of face Right inguinal pain Vitamin B12 deficiency Anemia Dyspnea on exertion Fibrosis of lung History of smoking 30 or more pack years Coronary artery disease Medical mgt (AUG 2023) Abnormal PFT COPD (chronic obstructive pulmonary disease) Shortness of breath Neoplasm of uncertain behavior of skin of face Impacted cerumen, left ear Edema of both lower extremities Essential hypertension IFG (impaired fasting glucose) Prostate cancer Dyslipidemia Hypertension Surgical History History of cholecystectomy History of hernia repair History of appendectomy Family History Other Cancer Social History Smoking Status: Never smoker smoking status stop date: 35 years ago second hand exposure: No alcohol intake: never substance use type: denies use current occupational status: retired Travel in the last 8 weeks?: None household members: spouse housing: house current occupational exposures/hazards: No caffeine: Yes Have you lived/traveled outside [place] in past 30 days?: No Contact w/someone who lives/traveled outside US past 30 days?: No Exposure to someone with infectious disease in past 14 days?: No Do you have a fever (greater than 100.4 F or 38 C)?: No Have you tested positive for COVID-19?: No Exposed to someone with COVID-19 in past 14 days?: No Do you have a sore throat?: No Do you have a cough?: No Do you have any weakness?: No Do you have any diarrhea?: No Are you experiencing any unusual bleeding?: No Do you have any muscle aches/pain?: No Do you have any abdominal pain?: No Are you experiencing loss of taste or smell?: No [facility] Anesthesia Checklist Patient Identification Patient Identification: Arm Band and Verbal (Name & ) Structural Data Admitted From: Home Planned Operative Procedure/s: ERCP Consent for Planned Operative Procedure(s) Verified: Yes Verified Documents: Surgical Consent NPO Status Verified Time NPO: 00:00 Chart Verification Results Verified: CBC, BMP and ECG Additional verifications Anesthesia Reactions: No Airway Assessment Mallampati Score:: Class II C-Spine Mobility Assessed: Yes TMJ Mobility Assessed: Yes Dentition: Dentures-poor fitting Neurological Assessment Level of Consciousness: Awake, Alert and Appropriate Hx Seizures: No Numbness or tingling in extremities: No Anesthesia Plan Anesthesia Risk discussed: Yes Anesthesia Plan: Verified ASA Class: III Anesthesia Type: General
[2025-09-27 07:23] LABS: Lipase 468 U/L (23-300)
--- NOTE | 2025-09-27 07:24 | HMH.PROCNOTE ---
[facility] Procedure Note Date: 09/27/25 Time: 08:03 Procedure Note:: ERCP procedure Report: Endoscopic retrograde cholangiopancreatography with biliary sphincterotomy, sphincteroplasty (TTS balloon dilation) and balloon extraction Endoscopist: Sathish Gordon II, MD Referring Physician: OSMANI Mcnamara Date of Procedure: September 27, 2025 Equipment: Olympus 180 side viewing endoscope duodenoscope Sedation: MAC sedation Indication: Mr. Thurman is an 84-year-old gentleman who is here for diagnostic/therapeutic ERCP secondary to choledocholithiasis and cholangitis. He initially presented to the [facility] ED (on 08/27/2025) and was transferred to the [facility] with abdominal pain. He had acute cholecystitis and underwent cholecystectomy on August 27, 2025. At that time, he did have gallstone pancreatitis. Yesterday, he re-presented to the ED with complaints of epigastric abdominal pain and vomiting. He reported no fever. In the ED he had tachycardia and some hypotension. His CAT scan showed bile duct dilation. He had on labs leukocytosis with white blood cell count 28,000 and a lipase of 15,000. He also had elevation of his transaminases and alkaline phosphatase. His total bilirubin was 1.3 but today is 1.7. The remainder of his labs showed AST 371, ALT 319 and alkaline phosphatase 257. His lipase on 08/27 was 11,592 and this declined down to 884 on 09/22/2025. His lipase yesterday was 15,935. Imaging of the abdomen yesterday did not show evidence of pancreatic inflammation and the CBD was 11 mm. The examination is deemed medically necessary for diagnostic/therapeutic ERCP. Procedure: Prior to the procedure, a history and physical exam was performed, and patient's medications and allergies were reviewed. The risks (including pancreatitis), benefits and alternatives of the sedation and procedure were discussed with the patient. All questions were answered and informed consent was obtained. The patient was brought to the fluoroscopic radiology room. Patient identification and proposed procedure were verified by the physician and the nurse. The patient was placed in a swimmer's position between left lateral decubitus and prone position and the scope was passed under direct vision. Throughout the procedure, the patient's blood pressure, pulse, and oxygen saturations were monitored continuously. The ERCP was accomplished without difficulty. The patient tolerated the procedure well. Findings: The duodenoscope was passed directly into the upper esophagus and advanced to the second portion of the duodenum. The esophagus, stomach and duodenum were grossly normal. The ampulla was well-visualized. The fluoroscopic C arm was then placed into position prior to cannulation with the duodenoscope was centered in a L-shaped position fluoroscopically in the second portion of duodenum. The entire endoscopic exam was done in conjunction with fluoroscopy. The cannula was then inserted through the duodenoscope channel and preloaded with low osmolar contrast. The common bile duct was selectively cannulated and initially the cannulation was with the cannula and a cholangiogram was performed. There was filling defect in the distal common bile duct with initial difficulty passing the guidewire. After contrast injection, the guidewire was passed freely into the common bile duct. The common bile duct diameter was 11 to 12 mm with normal filling of the intrahepatic biliary tree. There was sludge and stone in the distal common bile duct with an 9 mm filling defect with adjacent sludgy defects. A biliary sphincterotomy was performed. After initial 7 to 8 mm sphincterotomy, sphincteroplasty was performed with TTS hydrostatic balloon dilation of the ampulla to 10 mm. After completion of the sphincteroplasty, a balloon was swept through the biliary system with the passage of a 9 mm stone and sludge and dark bile. Several additional balloon sweeps yielded no additional stones or debris. A post sweep cholangiogram was performed with the balloon dilated in the distal CBD and the cholangiogram showed no further filling defects. There was a normal cystic duct stump. There was complete decompression of the biliary system after removal of the balloon. The pancreatic duct was not cannulated intentionally. Impression: 1. Choledocholithiasis/cholangitis?status post removal and decompression of the biliary tree Plan: The patient should have clinical improvement. I will advance to clear liquids and follow for biochemical and clinical improvement.
[2025-09-27 07:49] LABS: Hemoglobin 9.1 g/dL (14.1-18.0)
--- NOTE | 2025-09-27 08:06 | HMH.PHAINT1 ---
Pharmacy Intervention Comments: MEDICATION RECONCILIATION COMPLETED ON PATIENT USING EXTERNAL FILL HISTORY FROM PHARMACY AND LIST FROM PCP OFFICE. -HARSHAL THOMPSON, VALARIED
--- NOTE | 2025-09-27 08:12 | FL_ITS ---
FINAL REPORT CLINICAL HISTORY: ERCP 139.6SEC 84.24MGY FINDINGS: Fluoroscopic imaging was provided for ERCP. 2.3 minutes of fluoroscopy time was reported, 84.28 mGy. IMPRESSION: Fluoroscopy for ERCP. Reviewed, Interpreted and Dictated by Vivienne Roach MD Transcribed by Alia Zaldivar Authenticated and [facility]
[2025-09-27] MEDS: IOPAMIDOL-370 (76%);100ML BOTTLE 100 ML IV (08:13)
--- NOTE | 2025-09-27 08:13 | EXP.ANES.I ---
[facility] Anesthesia Record Part I Anesthesia Record I Intake, IV Amount: 500 Hydration: Adequate Estimated blood loss (mL): 0 Urine output (mL): 0 Blood Products used (#): none Blood Pressure: 98/44 SaO2: 95 Pulse Rate: 104 Airway Patency: Patent Respiratory Rate: 18 Temperature: 97.5 F Patient is:: Awake and Stable Stable to PACU at:: 08:12
--- NOTE | 2025-09-27 10:05 | HMH.PHAAMS2 ---
- Antimicrobial Stewardship Review culture & sensitivity review Stewardship interventions: culture & sensitivity review (CURRENTLY ON ZOSYN, WBC 21.7K TODAY, AFEBRILE, GRAM - RODS IN BOTH BLD CX. BLD CX FROM 08/27/25 WERE BOTH POSITIVE FOR E. COLI.)
--- NOTE | 2025-09-27 10:24 | EXP.ANES.II ---
[facility] Anesthesia Record Part II Anesthesia Record Part II Discharge Time: 08:42 Destination: Surgical Day Care (OP Surgery) PACU nurse assessment reviewed?: Yes Patient Condition:: Good Anesthesia Complications:: None Swallowing reflex intact?: Yes Airway Patency: Patent Cyanosis?: No Blood Pressure: 103/50 SaO2: 94 Respiratory Rate: 16 Pulse Rate: 87 Temperature: 97.5 F Mental Status: Alert & Oriented Pain level:: 0 Nausea and/or vomitting:: None Intake, IV Amount: 0 Hydration: Adequate
[2025-09-27] MEDS: FERROUS SULFATE 325MG TABLET 325 MG PO ×2 (10:58→20:56)
[2025-09-27] MEDS: FUROSEMIDE 20MG TABLET 20 MG PO (10:58)
[2025-09-27] MEDS: LORATADINE 10MG TABLET 10 MG PO (10:59)
--- NOTE | 2025-09-27 12:04 | P.PN_ITS ---
<Statement entered by Rai Talavera MD - 09/27/25 18:54> Rounded on patient after nurse practitioner. Personally examined and interviewed patient. Agree with exam findings and care plan as documented. Subjective *Date: 09/27/25 *Time: 14:36 Interval history: Mr. Thurman is doing well this morning, s/p ERCP post removal and decompression of the biliary tree. Patient advancing diet to clears. Blood cultures positive for E. coli, receiving Zosyn every 6 hours during admission. White count elevated at 21.7, LFTs elevated, continuing to trend both. Patient denies abdominal pain. Lipase on admission greater than 15,000, trending down to 468. Medical Exam Vital signs and Labs for Last 24 Hours: Vital Signs Temp Pulse Pulse Resp BP BP Pulse Ox 09/27/25 10:48 77 09/27/25 10:48 80 09/27/25 10:25 16 09/27/25 08:42 97.5 F L 87 16 103/50 L 94 L 09/27/25 08:32 97.5 F L 87 16 103/50 L 95 09/27/25 08:22 97.5 F L 95 H 16 100/49 L 95 09/27/25 08:14 97.5 F L 104 H 18 98/44 L 09/27/25 08:12 97.5 F L 102 H 16 88/47 L 94 L 09/27/25 07:15 105 H 16 100/50 L 99 09/27/25 07:00 09/27/25 05:00 09/27/25 04:00 98.9 F 102 H 16 107/49 L 93 L 09/27/25 03:00 09/27/25 02:00 98 H 09/27/25 01:00 09/27/25 00:00 98.6 F 107 H 16 144/64 H 94 L 09/26/25 23:00 09/26/25 21:00 09/26/25 20:00 98.0 F 100 H 16 129/61 94 L 09/26/25 20:00 09/26/25 19:19 09/26/25 18:00 99.2 F 116 H 18 134/64 93 L 09/26/25 17:50 98.3 F 106 H 14 137/61 09/26/25 17:01 115 H 19 137/65 95 09/26/25 16:31 109 H 29 H 104/57 L 96 09/26/25 15:07 98.0 F 106 H 22 107/45 L 98 O2 Del Method 09/27/25 10:48 09/27/25 10:48 09/27/25 10:25 09/27/25 08:42 Room Air 09/27/25 08:32 Room Air 09/27/25 08:22 Room Air 09/27/25 08:14 09/27/25 08:12 Room Air 09/27/25 07:15 Room Air 09/27/25 07:00 Room Air 09/27/25 05:00 Room Air 09/27/25 04:00 Room Air 09/27/25 03:00 Room Air 09/27/25 02:00 09/27/25 01:00 Room Air 09/27/25 00:00 Room Air 09/26/25 23:00 Room Air 09/26/25 21:00 Room Air 09/26/25 20:00 Room Air 09/26/25 20:00 Room Air 09/26/25 19:19 Room Air 09/26/25 18:00 Room Air 09/26/25 17:50 Room Air 09/26/25 17:01 Room Air 09/26/25 16:31 Room Air 09/26/25 15:07 Room Air Intake and Output 09/26/25 09/27/25 09/27/25 23:59 07:59 15:59 Intake Total 2400 / 2400 1050 / 1550 500 / 1550 Output Total 200 / 200 Balance 2400 / 2400 850 / 1350 500 / 1350 Intake: Intake, Total IV Amount 2400 / 2400 1050 / 1550 500 / 1550 Lactated Ringers 1000ML 1,000 1000 / 1000 ml @ 150 mls/hr IV .Q6H40M COUNTS INCLUDE 234 BEDS AT [facility] Rx#:[id number] Lactated Ringers 1000ML 1,000 1000 / 1000 ml @ 999 mls/hr IV .Q1H1M ONE Rx#:[id number] Lactated Ringers 1000ML 1,000 1000 / 1000 ml @ 999 mls/hr IV .Q1H1M ONE Rx#:[id number] Pipercillin/Tazo 3.375 gm In 0. 50 / 50 50 / 50 9 % Sodium Chloride 50 ml @ 100 mls/hr IV Q6H DAPHNIE Rx#: [id number] Vancomycin/Water For Inj (Peg) 350 / 350 1.75 gm In 350 ml @ 175 mls/hr IV ONCE ONE Rx#:[id number] Output: Output, Urine Amount 200 / 200 Other: Weight 84.55 kg Patient Weight 09/27/25 23:59 Weight 84.55 kg Laboratory Results - last 24 hr 09/26/25 15:14: ESR 100 H, PT 10.4, INR 0.93, APTT 17.4 L, Sodium 133 L, Potassium 4.7, Chloride 102, Carbon Dioxide 20 L, Anion Gap 15.7 H, BUN 14, Creatinine 1.00, Estimated Creat Clear 66, Estimated GFR 71, Est GFR ( Amer) 86, Glucose 174 H, Calcium 8.6, Phosphorus 3.0, Magnesium 2.5 H, Total Bilirubin 1.3, AST 382 H*, ALT 166 H, Alkaline Phosphatase 258 H, Total Creatine Kinase 36 L, Troponin I < 0.01, C-Reactive Protein 38.2 H, NT-Pro-B Natriuret Pep 681 H, Total Protein 6.5, Albumin 3.6, Globulin 2.9, Albumin/Globulin Ratio 1.2, Lipase 23619 H, A. baumannii (PCR) Not detected, Bacteroides fragilis Not detected, Karely albicans (PCR) Not detected, Karely auris (PCR) Not detected, C. glabrata (PCR) Not detected, C. krusei (PCR) Not detected, C. parapsilosis (PCR) Not detected, C. tropicalis (PCR) Not detected, Cryptococcus neoformans PCR Not detected, Enterobacterales (PCR) Detected A, Enterococc faecalis PCR Not detected, Enterococc faecium PCR Not detected, E. coli (PCR) Detected A, H. influenzae DNA Not detected, Klebsiella aerogenes (PCR) Not detected, Klebsiella oxytoca PCR Not detected, K. pneumoniae group (PCR) Not detected, List. monocytogenes PCR Not detected, N. meningitidis (PCR) Not detected, Proteus species (PCR) Not detected, Salmonella spp. (PCR) Not detected, Serratia marcescens PCR Not detected, Staphylococcus sp PCR Not detected, Staph aureus (PCR) Not detected, mecA/C & MREJ Resist Gene Not applicable, mecA/C-Methicil Resis Gene Not applicable, Staph epidermidis (PCR) Not detected, Staph lugdunensis (TEM-PCR) Not detected, S. maltophilia (PCR) Not detected, Streptococcus sp PCR Not detected, S.agalactiae Grp B DALE Not detected, Strep pneumoniae (PCR) Not detected, S. pyogenes GrpA DALE Not detected, P. aeruginosa (PCR) Not detected, Tristan/B-Vanco Res Genes Not applicable, blaIMP Car res Gene PCR Not detected, KPC-Carbap Res Gene PCR Not detected, blaNDM Car Res Gene PCR Not detected, OXA-48 Carbapenem Resis Gene (PCR) Not detected, blaVIM Car Res Gene PCR Not detected, CTX-M Gene Resistance (PCR) Not detected, MCR-1 Resistance Gene Not detected 09/26/25 15:52: WBC 20.4 H*, RBC 3.67 L, Hgb 10.8 L, Hct 34.1 L, MCV 92.9, MCH 29.4, MCHC 31.7 L, RDW 14.9, Plt Count 184, MPV 9.2, Neut % (Auto) 88.7 H, Lymph % (Auto) 5.3 L, [place] % (Auto) 4.6, Eos % (Auto) 0.3, Baso % (Auto) 0.1, Neut # (Auto) 18.1 H, Lymph # (Auto) 1.1, [place] # (Auto) 0.9, Eos # (Auto) 0.1, Baso # (Auto) 0.0, VBG pH 7.31, VBG pCO2 43.1, VBG pO2 32.3, VBG HCO3 21.1 L, VBG Total CO2 22.4 L, VBG O2 Saturation 56.9, VBG Base Excess -5.2 L, VBG Lactic Acid 3.1 H, A. baumannii (PCR) Not detected, Bacteroides fragilis Not detected, Karely albicans (PCR) Not detected, Karely auris (PCR) Not detected, C. glabrata (PCR) Not detected, C. krusei (PCR) Not detected, C. parapsilosis (PCR) Not detected, C. tropicalis (PCR) Not detected, Cryptococcus neoformans PCR Not detected, Enterobacterales (PCR) Detected A, Enterococc faecalis PCR Not detected, Enterococc faecium PCR Not detected, E. coli (PCR) Detected A, H. influenzae DNA Not detected, Klebsiella aerogenes (PCR) Not detected, Klebsiella oxytoca PCR Not detected, K. pneumoniae group (PCR) Not detected, List. monocytogenes PCR Not detected, N. meningitidis (PCR) Not detected, Proteus species (PCR) Not detected, Salmonella spp. (PCR) Not detected, Serratia marcescens PCR Not detected, Staphylococcus sp PCR Not detected, Staph aureus (PCR) Not detected, mecA/C & MREJ Resist Gene Not applicable, mecA/C-Methicil Resis Gene Not applicable, Staph epidermidis (PCR) Not detected, Staph lugdunensis (TEM-PCR) Not detected, S. maltophilia (PCR) Not detected, Streptococcus sp PCR Not detected, S.agalactiae Grp B DALE Not detected, Strep pneumoniae (PCR) Not detected, S. pyogenes GrpA DALE Not detected, P. aeruginosa (PCR) Not detected, Tristan/B-Vanco Res Genes Not applicable, blaIMP Car res Gene PCR Not detected, KPC-Carbap Res Gene PCR Not detected, blaNDM Car Res Gene PCR Not detected, OXA- 48 Carbapenem Resis Gene (PCR) Not detected, blaVIM Car Res Gene PCR Not detected, CTX-M Gene Resistance (PCR) Not detected, MCR-1 Resistance Gene Not detected 09/26/25 18:45: Troponin I < 0.01 09/26/25 21:53: Lactate 2.0, Troponin I < 0.01 09/27/25 06:00: WBC 21.7 H*, RBC 3.10 L, Hgb 9.1 L D, Hct 28.4 L, MCV 91.6, MCH 29.4, MCHC 32.0, RDW 15.1, Plt Count 155, MPV 9.5, Neut % (Auto) 90.4 H, Lymph % (Auto) 3.4 L, [place] % (Auto) 5.0, Eos % (Auto) 0.0 L, Baso % (Auto) 0.1, Neut # (Auto) 19.6 H, Lymph # (Auto) 0.7, [place] # (Auto) 1.1 H, Eos # (Auto) 0.0, Baso # (Auto) 0.0, Sodium 136, Potassium 3.9, Chloride 104, Carbon Dioxide 21 L, Anion Gap 14.9, BUN 15, Creatinine 1.10, Estimated Creat Clear 58, Estimated GFR 63, Est GFR ( Amer) 77, Glucose 115 H D, Lactate 1.6, Calcium 7.8 L, Total Bilirubin 1.7 H, AST 371 H*, ALT 319 H*, Alkaline Phosphatase 257 H, Total Protein 5.5 L, Albumin 3.0 L D, Globulin 2.5, Albumin/Globulin Ratio 1.2, Lipase 468 H I & O for Labs for Last 24 Hours: Intake & Output 09/24/25 09/25/25 09/26/25 09/27/25 23:59 23:59 23:59 23:59 Intake Total 2400 / 2400 1550 / 1550 Output Total 200 / 200 Balance 2400 / 2400 1350 / 1350 Weight 88.451 kg 84.55 kg Microbiology Reports for the Last 24 Hours: Microbiology 09/26/25 15:52 Blood Blood Culture - Preliminary 09/26/25 15:14 Blood Blood Culture - Preliminary Constitutional: Present no acute distress, average body habitus and cooperative Head: Present atraumatic Eyes: Present as per HPI ENT: Present normal exam Neck: Present normal inspection Respiratory: Present CTA bilaterally and normal respiratory effort; Absent wheezes or crackles Cardiac: Present Reg Rate and Rhythm, Regular Rate, Regular Rhythm and No Murmur GI: Present soft and hypoactive bowel sounds; Absent distention or tenderness Rectal (male): Present deferred (male): Present deferred Extremities: Present normal inspection and full ROM; Absent edema Skin: Present intact, dry and warm; Absent erythema or rash Neuro: Present Grossly Intact, alert, awake, oriented x 3 and moves all extremities Assessment and Plan *Assessment and plan (1) Sepsis: Status: Acute Qualifiers: Sepsis type: sepsis due to unspecified organism Sepsis acute organ dysfunction status: without acute organ dysfunction Qualified Code(s): A41.9 - Sepsis, unspecified organism Category: Medical Code(s): A41.9 - Sepsis, unspecified organism (2) Cholangitis: Status: Acute Category: Medical Code(s): K83.09 - Other cholangitis (3) Acute pancreatitis: Status: Acute Category: Medical Code(s): K85.90 - Acute pancreatitis without necrosis or infection, unspecified (4) Coronary artery disease: Problem Comment: Medical mgt (AUG 2023) Status: Chronic Qualifiers: Coronary Disease-Associated Artery/Lesion type: [place] artery [place] vs. transplanted heart: [place] heart Associated angina: without angina Qualified Code(s): I25.10 - Atherosclerotic heart disease of [place] coronary artery without angina pectoris Category: Medical Code(s): I25.10 - Atherosclerotic heart disease of [place] coronary artery without angina pectoris (5) COPD (chronic obstructive pulmonary disease): Status: Acute Qualifiers: COPD type: unspecified COPD Qualified Code(s): J44.9 - Chronic obstr uctive pulmonary disease, unspecified Category: Medical Code(s): J44.9 - Chronic obstructive pulmonary disease, unspecified Plan Mr. Thurman is an 84-year-old male who presented to the emergency department yesterday evening with complaints of epigastric abdominal pain and vomiting. Patient was recently in our emergency department on 08/27/2025 and transferred to [facility] with abdominal pain where he underwent a cholecystectomy. Patient vitals significant for tachycardia, hypotension, elevated lipase of 15,000, leukocytosis of greater than 28,000, transaminitis and elevated alk phos. Bilirubin was 1.3. Imaging showed evidence of pancreatic inflammation and the CBD was 11 mm. GI was consulted and plans for diagnostic/therapeutic ERCP were made. Hospital medicine was consulted for admission, agreed to admit the patient. Plan of care as follows: #Severe sepsis #E. coli bacteremia ?Patient meeting severe sepsis criteria with elevated lactic acidosis, tachycardia, leukocytosis, and intermittent hypotension. CT shows cholangitis. Initial lactate 3.1 trending downward to 1.6. Blood cultures positive for E. coli, were also positive for E. coli in August 2025. Sensitive to Zosyn, patient initiated on Zosyn every 6 hours IV, patient also given 1 dose vancomycin in the emergency department. Patient received sepsis bolus of 30 mL/kg in the ED and blood patient stabilized. ?Blood pressure stable today, continuing to monitor. Patient remains afebrile. WBC elevated at 21.7, continuing to trend. Nontachycardic. #Common bile duct dilatation #Cholangitis #Transaminitis #Acute pancreatitis #Status post ERCP ? Initial lipase of greater than 15,000 on admission, trending downward to 468. Continuing to trend. Transaminitis noted with elevated bilirubin at 1.7. This is likely secondary to cholangitis and recent cholecystectomy. Will continue to trend labs tomorrow morning. Patient underwent ERCP today successfully with Dr. Gordon.Dr. Gordon consulted for a.m., ERCP versus MRCP in a.m. ? Patient received LR 150 mL/H overnight, patient advancing to clear liquids today, will reduce fluids to 100 mL/H. #COPD ? Not in exacerbation at this time. DuoNebs every 6 hours as needed, Bevespi inhaler twice daily scheduled. Patient remained stable on room air. #CAD ? Continue aspirin 81 mg daily tomorrow morning. #Hypertension ? Continue hypertensive medications: Lisinopril 20 mg twice daily, Lasix 20 mg daily. # Iron deficient anemia ? Hemoglobin stable at 9.1. Continue to trend, resumed iron 325 mg twice daily. #Pain management with parenteral controlled substances ? Tylenol 650 every 4 hours for mild pain, [place] 5/325 every 4 hours for moderat e to severe pain, morphine 4 mg every 4 hours for severe pain. Monitoring for toxicity. Full code Clears Ambulate as tolerated VTE?IPC's
--- NOTE | 2025-09-27 13:37 | HMH.OTEV ---
OT Evaluation Rehab OT IP Evaluation Start: 09/27/25 10:25 Freq: ONCE Status: Active Protocol: Document 09/27/25 13:32 RAHEL (Rec: 09/27/25 13:36 [id number] Rehab OT IP Assessment Subjective History This is an 84-year-old male with past medical history of recent cholangitis and cholecystectomy, CAD, COPD, hypertension, hyperlipidemia, BIANCA and new diagnosis of NSCLC who presents to the emergency department complaining of abdominal pain. Of note, patient had recent presentation here approximate 1 month ago for abdominal pain and was found to have cholangitis [facility] where he underwent ICU stay with cholecystectomy. He presents back today with complaints of epigastric pain. States has been doing well since discharge from [facility] until today when he developed abdominal pain, vomiting States that he has had difficulty with oral intake over the last day or two. Denies any fever . On arrival to the emergency department he was noted to be have borderline hypotension and tachycardia. CT abdomen pelvis was obtained and notable for common bile duct dilatation but no other pathology. Labs notable for leukocytosis of 28, transaminitis, normal bilirubin , lactic acid of 3.1, lipase of 15,000. Given his concern for cholangitis, Dr. Gordon was consulted and recommends hospitalization with likely MRCP versus ERCP in the a.m. At the time of admission he had improved pain control with improved vital signs. He is admitted to the hospitalist service at this time. Subjective Pt oriented x 3 on arrival. Pt agreeable to engage in therapy evaluation. Prior to being in the hospital, pt lived at home alone. Pt claims normally he is completely independent with all ADLs and IADLS. He still drives. He has 2 steps to enter his home and lives on the first floor of his home. He does have a second story, but does not go upstairs. Pt reports his son checks on him often and assists as needed. He was also receiving PT prior to being admitted to the hospital. Objective Patient Orientation Person,Place,Birthday Right Upper WFL Extremity Gross ROM Left Upper Extremity WFL Gross ROM Bed Mobility bed mobility-scooting,bed mobility - supine/sit Assist Level Supervision/Stand by Transfer Training Sit/Stand Transfer Assist Level Supervision/Stand by Chair Transfer Supervision/Stand by Ability Chair Transfer Sit to/from Ambulatory Technique Chair Transfer Rolling Walker Assistive Devices Lower Body Dressing Standby Assistance Ability Rehab OT IP prob,goals,plan Problems Date of Evaluation: 09/27/25 Rehab Potential Rehab Potential Innapropriate for Skilled Therapy Discharge Plan OT Discharge Plan Pt appears to be his baseline with functional transfers and ADL independence. Pt can return home once he is medically stable per physician. Therapist recommends continues HH therapy services as needed. Eval Complexity Eval Charge Codes 59675 - Moderate Complexity PHYSICIAN CERTIFICATION: I certify the specified therapy services for Jayme Thurman are required, authorized, and reviewed every 30 days.
--- NOTE | 2025-09-27 14:12 | HMH.PTEV ---
Physical Therapy Evaluation Rehab PT IP Evaluation Start: 09/27/25 10:25 Freq: ONCE Status: Active Protocol: Document 09/27/25 14:08 KESHIA (Rec: 09/27/25 14:11 KESHIA [id number]) Subjective/History History History Per H&P: This is an 84-year-old male with past medical history of recent cholangitis and cholecystectomy, CAD , COPD, hypertension, hyperlipidemia, BIANCA and new diagnosis of NSCLC who presents to the emergency department complaining of abdominal pain. Of note, patient had recent presentation here approximate 1 month ago for abdominal pain and was found to have cholangitis [facility] where he underwent ICU stay with cholecystectomy. He presents back today with complaints of epigastric pain. States has been doing well since discharge from [facility] until today when he developed abdominal pain, vomiting States that he has had difficulty with oral intake over the last day or two. Denies any fever . On arrival to the emergency department he was noted to be have borderline hypotension and tachycardia. CT abdomen pelvis was obtained and notable for common bile duct dilatation but no other pathology. Labs notable for leukocytosis of 28, transaminitis, normal bilirubin , lactic acid of 3.1, lipase of 15,000. Given his concern for cholangitis, Dr. Gordon was consulted and recommends hospitalization with likely MRCP versus ERCP in the a.m. At the time of admission he had improved pain control with improved vital signs. He is admitted to the hospitalist service at this time. Subjective Subjective Pt oriented x 3 on arrival. Prior to being in the hospital, pt lived at home alone. Pt claims normally he is completely independent with all ADLs and IADLS. He ambulates with modified IND using RW. He still drives. He has 2 steps to enter his home and lives on the first floor of his home. He does have a second story, but does not go upstairs. Pt reports his son checks on him often and assists as needed. He was also receiving PT prior to being admitted to the hospital. New diagnosis of No cancer in past 12 months? [facility] How much help from another person do you currently need... Turning from your None back to your side while in a flat bed without using bedrails? Moving from lying on None back to sitting on the side of a flat bed without using bedrails? Moving to and from a None bed to a chair ( including a wheelchair)? Standing up from a None chair using your arms? (e.g., wheelchair, bedside chair) Walking in hospital None room? Climbing 3-5 steps A little with a railing? Mobility Score [address] [facility] Mobility 7 Walk 25 feet or more Mobility Calculator Rehab PT IP Eval Objective Appearance Patient Behavior Appropriate,Cooperative Patient Orientation Person,Place Difficulty following none instructions Speech Pattern Clear,Appropriate Ambulation Patient Able to Yes Ambulate Ambulation Observation IP General Gait Wide Based Gait Pattern Observation Ambulation Distance 30 (feet) Ambulation Assistive Rolling Walker Device Ambulation Ability Supervision/Stand by Balance Ability to Arise Able, uses arms to help Sitting Balance Steady, safe Standing Balance Steady, wide stance Dynamic Sitting Good Balance Ability Dynamic Standing Fair Balance Ability Transfers Bed Transfer Ability Supervision/Stand by Sit to Stand Bed Supervision/Stand by Transfer Ability Rehab PT IP prob,goals,plan Problems Date of Evaluation: 09/27/25 Rehab Potential Rehab Potential Innapropriate for Skilled Therapy Discharge Plan PT Discharge Plan Skilled acute level PT not indicated at this time as pt appears to be at his baseline/Mod IND with mobility. PT recommending nursing staff continue to ambulate pt as tolerated per activity orders. PT recommending PT to continue global strengthening. Eval Complexity Eval Charge Codes 05976 - Moderate Complexity PHYSICIAN CERTIFICATION: I certify the specified therapy services for Jayme Thurman are required, authorized, and reviewed every 30 days.
--- NOTE | 2025-09-27 15:21 | SW/DCPLANNER ---
Spoke with patient and he stated that he does have home health and the agency is [facility]. Norberto Aguiar
[2025-09-27 16:12] LABS: Microscopic, Urine URINE MICROSCOPIC (MICROSCOPIC)
[2025-09-27 16:16] LABS: Color,Urine YELLOW (Yellow); Glucose,Urine (UA) Negative (Negative); Ketones,Urine Negative (Negative); Leukocyte Esterase,Urine Negative (Negative); PH,Urine 6.0 (5.0-8.5); Protein,Urine 1+ (Negative); Specific Gravity, Urine >= 1.030 (1.005-1.030); Urobilinogen,Urine 1.0 EU/dl (0.2)
[2025-09-27 16:37] LABS: Bilirubin,Urine Negative (Negative)
[2025-09-27 18:19] LABS: WBC,Urine 20-50 #/hpf (0-3)
[2025-09-27 18:20] LABS: Amorphous Sediment,Urine 3+ /lpf; Bacteria,Urine 4+ /lpf
[2025-09-27] MEDS: LISINOPRIL 20MG TABLET 20 MG PO (20:56)
[2025-09-27] MEDS: PANTOPRAZOLE 40MG TABLET 40 MG PO (20:56)
[2025-09-27] MEDS: MONTELUKAST SODIUM 10MG TAB 10 MG PO (20:56)
[2025-09-28] VITALS: BP 130/66; PULSE 73; RESP 16; TEMP 36.4; O2SAT 95
[2025-09-28] MEDS: PIPERCILLIN/TAZO 3.375 GM in 0.9 % SODIUM CHLORIDE 50 ML IV ×4 (00:08→18:33)
[2025-09-28] MEDS: LACTATED RINGERS 1000ML 1,000 ML 100 ML IV ×2 (00:08→11:36)
[2025-09-28 04:00] VITALS: BP 134/97; PULSE 78; RESP 14; TEMP 36.5; O2SAT 95; BMI 28.0
[2025-09-28 07:51] VITALS: BP 141/74; PULSE 78; RESP 18; TEMP 36.8; O2SAT 95
[2025-09-28] MEDS: ASPIRIN EC 81MG TABLET 81 MG PO (08:39)
[2025-09-28] MEDS: LORATADINE 10MG TABLET 10 MG PO (08:39)
[2025-09-28] MEDS: LISINOPRIL 20MG TABLET 20 MG PO ×2 (08:39→20:07)
[2025-09-28] MEDS: FERROUS SULFATE 325MG TABLET 325 MG PO ×2 (08:39→20:07)
[2025-09-28] MEDS: FUROSEMIDE 20MG TABLET 20 MG PO (08:39)
[2025-09-28 08:46] LABS: Hematocrit 26.9 % (42.0-52.0); Hemoglobin 8.8 g/dL (14.1-18.0); Immature Granulocytes % 0.5 %; Mean Corpuscular HGB Conc 32.7 g/dL (31.8-35.4); Mean Corpuscular Hemoglobin 29.8 pg (27.0-31.2); Mean Corpuscular Volume 91.2 fl (80-94); Nucleated Red Blood Cells % 0 %; Platelet Count 151 K/mm3 (142-424); Red Blood Count 2.95 M/mm3 (4.60-6.20); Red Cell Distribution Width-SD 50.5 fL; White Blood Count 16.9 K/mm3 (4.8-10.8)
[2025-09-28 08:49] LABS: Albumin Level 2.8 g/dl (3.5-5.0); Chloride 104 mmol/L (98-107); Potassium 4.0 mmoL/L (3.5-5.1); Sodium 133 mmol/L (136-145)
[2025-09-28 08:52] LABS: Alanine Aminotransferase 249 U/L (12-78); Albumin/Globulin Ratio 1.0 (1.1-1.8); Alkaline Phosphatase 205 U/L (38-126); Anion Gap 9.0 mEq/L (5-15); Aspartate Amino Transferase 150 U/L (17-59); Bilirubin,Total 0.4 mg/dl (0.2-1.3); Blood Urea Nitrogen 18 mg/dl (9-20); Calcium 7.8 mg/dl (8.4-10.2); Carbon Dioxide 24 mmol/L (22.0-30.0); Creatinine Clearance Estimated 63 mL/min (50-200); Creatinine,Serum 1.00 mg/dl (0.66-1.25); Estimated Glomerular Filt Rate 71 ml/min (>60); GFR (African American) 86 ML/MIN (>60); Globulin 2.8 g/dL (1.3-3.2); Glucose 90 mg/dl (74-100); Total Protein,Serum 5.6 g/dl (6.3-8.2)
--- NOTE | 2025-09-28 10:35 | P.PN_ITS ---
<Statement entered by Rai Talavera MD - 09/28/25 13:17> Rounded on patient after nurse practitioner. Personally examined and interviewed patient. Agree with exam findings and care plan as documented. Subjective *Date: 09/28/25 *Time: 12:09 Interval history: Patient doing well, up to chair, WBC trending down to 16.9 today. Advancing diet to low-fat. Patient did extremely well with clears. Lab work stable, blood cultures positive for E. coli, awaiting sensitivities. Continuing Zosyn IV every 6 hours. Medical Exam Vital signs and Labs for Last 24 Hours: Vital Signs Temp Pulse Pulse Resp BP Pulse Ox O2 Del Method 09/28/25 09:00 Room Air 09/28/25 08:00 Room Air 09/28/25 07:51 98.2 F 78 18 141/74 H 95 Room Air 09/28/25 06:56 Room Air 09/28/25 05:00 Room Air 09/28/25 04:00 97.7 F 78 14 134/97 H 95 Room Air 09/28/25 03:00 Room Air 09/28/25 01:00 Room Air 09/28/25 00:00 97.6 F 73 16 130/66 95 Room Air 09/27/25 23:00 Room Air 09/27/25 21:00 Room Air 09/27/25 20:00 Room Air 09/27/25 20:00 97.8 F 76 18 123/68 96 Room Air 09/27/25 19:00 Room Air 09/27/25 17:15 Room Air 09/27/25 16:00 98 F 82 12 120/53 L 96 Room Air 09/27/25 15:00 Room Air 09/27/25 13:00 Room Air 09/27/25 11:30 98.3 F 98 H 18 106/56 L 91 L Room Air 09/27/25 11:00 92 H 18 104/58 L 94 L Room Air 09/27/25 11:00 Room Air 09/27/25 10:48 77 09/27/25 10:48 80 Intake and Output 09/27/25 09/28/25 09/28/25 23:59 07:59 15:59 Intake Total 920 / 2820 350 / 870 520 / 870 Output Total 300 / 500 1150 / 1150 Balance 620 / 2320 -800 / -280 520 / -280 Intake: Intake, Oral Amount 870 / 1120 250 / 770 520 / 770 Intake, Total IV Amount 50 / 1200 100 / 100 Pipercillin/Tazo 3.375 gm In 0. 50 / 200 100 / 100 9 % Sodium Chloride 50 ml @ 100 mls/hr IV Q6H [facility] Rx#:[id number] Output: Output, Urine Amount 300 / 500 1150 / 1150 Other: Weight 83.96 kg Patient Weight 09/28/25 23:59 Weight 83.96 kg Laboratory Results - last 24 hr 09/27/25 16:05: Urine Color Yellow, Urine Appearance Sl cloudy, Urine pH 6.0, Ur Specific [place] >= 1.030, Urine Protein 1+ A, Urine Glucose (UA) Negative, Urine Ketones Negative, Urine Blood Negative, Urine Nitrate Negative, Urine Bilirubin Negative, Urine Urobilinogen 1.0, Ur Leukocyte Esterase Negative, Urine RBC 5-10, Urine WBC 20-50, Ur Squamous Epith Cells 5-10, Amorphous Sediment 3+, Urine Bacteria 4+ 09/28/25 07:39: WBC 16.9 H, RBC 2.95 L, Hgb 8.8 L, Hct 26.9 L, MCV 91.2, MCH 29.8, MCHC 32.7, RDW 15.2, Plt Count 151, MPV 9.8, Neut % (Auto) 82.9 H, Lymph % (Auto) 10.0, [place] % (Auto) 6.0, Eos % (Auto) 0.4, Baso % (Auto) 0.2, Neut # (Auto) 14.0 H, Lymph # (Auto) 1.7, [place] # (Auto) 1.0, Eos # (Auto) 0.1, Baso # (Auto) 0.0, Sodium 133 L, Potassium 4.0, Chloride 104, Carbon Dioxide 24, Anion Gap 9.0, BUN 18, Creatinine 1.00, Estimated Creat Clear 63, Estimated GFR 71, Est GFR ( Amer) 86, Glucose 90, Calcium 7.8 L, Total Bilirubin 0.4, AST 150 H D, ALT 249 H, Alkaline Phosphatase 205 H, Total Protein 5.6 L, Albumin 2.8 L, Globulin 2.8, Albumin/Globulin Ratio 1.0 L I & O for Labs for Last 24 Hours: Intake & Output 09/25/25 09/26/25 09/27/25 09/28/25 23:59 23:59 23:59 23:59 Intake Total 2400 / 2400 2570 / 2820 870 / 870 Output Total 500 / 500 1150 / 1150 Balance 2400 / 2400 2070 / 2320 -280 / -280 Weight 88.451 kg 84.55 kg 83.96 kg Microbiology Reports for the Last 24 Hours: Microbiology 09/26/25 15:14 Blood Blood Culture - Preliminary Gram Negative Rods 09/26/25 15:52 Blood Blood Culture - Preliminary Gram Negative Rods Constitutional: Present no acute distress, average body habitus and cooperative Head: Present atraumatic Eyes: Present as per HPI ENT: Present normal exam Neck: Present normal inspection Respiratory: Present CTA bilaterally and normal respiratory effort; Absent wheezes or crackles Cardiac: Present Reg Rate and Rhythm, Regular Rate, Regular Rhythm and No Murmur GI: Present soft and hypoactive bowel sounds; Absent distention or tenderness Rectal (male): Present deferred (male): Present deferred Extremities: Present normal inspection and full ROM; Absent edema Skin: Present intact, dry and warm; Absent erythema or rash Neuro: Present Grossly Intact, alert, awake, oriented x 3 and moves all extremities Assessment and Plan *Assessment and plan (1) Sepsis: Status: Acute Qualifiers: Sepsis type: sepsis due to unspecified organism Sepsis acute organ dysfunction status: without acute organ dysfunction Qualified Code(s): A41.9 - Sepsis, unspecified organism Category: Medical Code(s): A41.9 - Sepsis, unspecified organism (2) Cholangitis: Status: Acute Category: Medical Code(s): K83.09 - Other cholangitis (3) Acute pancreatitis: Status: Acute Category: Medical Code(s): K85.90 - Acute pancreatitis without necrosis or infection, unspecified (4) Coronary artery disease: Problem Comment: Medical mgt (AUG 2023) Status: Chronic Qualifiers: Coronary Disease-Associated Artery/Lesion type: [place] artery [place] vs. transplanted heart: [place] heart Associated angina: without angina Qualified Code(s): I25.10 - Atherosclerotic heart disease of [place] coronary artery without angina pectoris Category: Medical Code(s): I25.10 - Atherosclerotic heart disease of [place] coronary artery without angina pectoris (5) COPD (chronic obstructive pulmonary disease): Status: Acute Qualifiers: COPD type: unspecified COPD Qualified Code(s): J44.9 - Chronic obstructive pulmonary disease, unspecified Category: Medical Code(s): J44.9 - Chronic obstructive pulmonary disease, unspecified Plan Mr. Thurman is an 84-year-old male who presented to the emergency department on Friday with complaints of epigastric abdominal pain and vomiting. Patient was recently in our emergency department on 08/27/2025 and transferred to [facility] with abdominal pain where he underwent a cholecystectomy. Patient vitals significant for tachycardia, hypotension, elevated lipase of 15,000, leukocytosis of greater than 28,000, transaminitis and elevated alk phos. Bilirubin was 1.3. Imaging showed evidence of pancreatic inflammation and the CBD was 11 mm. GI was consulted and plans for diagnostic/therapeutic ERCP were made. Hospital medicine was consulted for admission, agreed to admit the patient. Plan of care as follows: Patient still requiring inpatient care due to E. coli bacteremia, transaminitis, leukocytosis. Anticipate discharge home in the next 1 to 2 days. #Severe sepsis #E. coli bacteremia ?Patient meeting severe sepsis criteria with elevated lactic acidosis, tachycardia, leukocytosis, and intermittent hypotension. CT shows cholangitis. Initial lactate 3.1 trending downward to 1.6. Blood cultures positive for E. coli, were also positive for E. coli in August 2025. Sensitive to Zosyn, christine francois initiated on Zosyn every 6 hours IV, patient also given 1 dose vancomycin in the emergency department. Patient received sepsis bolus of 30 mL/kg in the ED and blood patient stabilized. Blood cultures obtained this visit positive E. coli, currently awaiting sensitivities. ?Blood pressure stable today, continuing to monitor. Patient remains afebrile. Nontachycardic. White count trending downward, 21.7 yesterday, 16.9 today. Continuing to trend. ?CBC, CMP ordered for the a.m. #Common bile duct dilatation #Cholangitis #Transaminitis #Acute pancreatitis #Status post ERCP ? Initial lipase of greater than 15,000 on admission, trending downward to 468. Transaminitis noted with elevated bilirubin at 1.7. This is likely secondary to cholangitis and recent cholecystectomy. Will continue to trend labs tomorrow morning. Patient underwent ERCP yesterday morning with Dr. Gordon.patient doing extremely well, denies pain. LFTs continue to trend downward, AST 371 yesterday, 150 today. ALT 319 yesterday, 249 today. Additionally bilirubin 1.7 yesterday trending downward to 0.4 today. ? Patient received fluids yesterday, transition to clear liquids. Tolerated clear liquids without issue, transition to low-fat diet today. #COPD ? Not in exacerbation at this time. DuoNebs every 6 hours as needed, Bevespi inhaler twice daily scheduled. Patient remained stable on room air. #CAD ? Restarted aspirin 81 mg today. #Hypertension ? Continue hypertensive medications: Lisinopril 20 mg twice daily, Lasix 20 mg daily. # Iron deficient anemia ? Hemoglobin stable at 9.1. Continue to trend, resumed iron 325 mg twice daily. #Pain management with parenteral controlled substances ? Tylenol 650 every 4 hours for mild pain, [place] 5/325 every 4 hours for moderate to severe pain, morphine 4 mg every 4 hours for severe pain. Monitori ng for toxicity. Full code Low-fat diet Ambulate as tolerated VTE?IPC's
[2025-09-28 12:00] VITALS: BP 148/67; PULSE 87; RESP 18; TEMP 36.7; O2SAT 96
--- NOTE | 2025-09-28 13:33 | HMH.PHAAMS2 ---
- Antimicrobial Stewardship Review culture & sensitivity review Stewardship interventions: culture & sensitivity review (CURRENTLY RECEIVING ZOSYN, WBC DOWN FROM 21.7 TO 16.9 OVERNIGHT. GRAM NEG RODS IN BLD CX X2, URING PENDING. )
[2025-09-28 16:00] VITALS: BP 151/71; PULSE 80; RESP 17; TEMP 36.8; O2SAT 96
[2025-09-28 20:00] VITALS: BP 168/78; PULSE 78; RESP 16; TEMP 36.7; O2SAT 96
[2025-09-28] MEDS: MONTELUKAST SODIUM 10MG TAB 10 MG PO (20:07)
[2025-09-28] MEDS: PANTOPRAZOLE 40MG TABLET 40 MG PO (20:07)
[2025-09-29] VITALS: BP 168/76; PULSE 79; RESP 16; TEMP 36.9; O2SAT 94
[2025-09-29] MEDS: PIPERCILLIN/TAZO 3.375 GM in 0.9 % SODIUM CHLORIDE 50 ML IV ×2 (00:47→06:22)
[2025-09-29 04:00] VITALS: BP 166/77; PULSE 81; RESP 17; TEMP 36.9; O2SAT 95; BMI 30.4
--- NOTE | 2025-09-29 04:23 | PC.NURSE ---
Pt is A&OX4 and has tolerated room. He has denied any abdominal pain or nausea. He has received IV abx. He has ambulated with standby assist. No complaints at this time, call light within reach.
[2025-09-29 06:47] LABS: Hematocrit 27.4 % (42.0-52.0); Hemoglobin 8.6 g/dL (14.1-18.0); Immature Granulocytes % 0.5 %; Mean Corpuscular HGB Conc 31.4 g/dL (31.8-35.4); Mean Corpuscular Hemoglobin 28.5 pg (27.0-31.2); Mean Corpuscular Volume 90.7 fl (80-94); Nucleated Red Blood Cells % 0 %; Platelet Count 153 K/mm3 (142-424); Red Blood Count 3.02 M/mm3 (4.60-6.20); Red Cell Distribution Width-SD 49.5 fL; White Blood Count 9.8 K/mm3 (4.8-10.8)
[2025-09-29 07:05] LABS: Albumin Level 2.8 g/dl (3.5-5.0); Chloride 104 mmol/L (98-107)
[2025-09-29 07:06] LABS: Potassium 3.5 mmoL/L (3.5-5.1); Sodium 136 mmol/L (136-145)
[2025-09-29 07:08] LABS: Alanine Aminotransferase 165 U/L (12-78); Anion Gap 9.5 mEq/L (5-15); Aspartate Amino Transferase 54 U/L (17-59); Blood Urea Nitrogen 11 mg/dl (9-20); Carbon Dioxide 26 mmol/L (22.0-30.0); Creatinine Clearance Estimated 68 mL/min (50-200); Creatinine,Serum 0.90 mg/dl (0.66-1.25); Estimated Glomerular Filt Rate 80 ml/min (>60); GFR (African American) 97 ML/MIN (>60)
[2025-09-29 07:09] LABS: Albumin/Globulin Ratio 1.0 (1.1-1.8); Alkaline Phosphatase 176 U/L (38-126); Bilirubin,Total 0.4 mg/dl (0.2-1.3); Calcium 7.7 mg/dl (8.4-10.2); Globulin 2.8 g/dL (1.3-3.2); Glucose 97 mg/dl (74-100); Total Protein,Serum 5.6 g/dl (6.3-8.2)
[2025-09-29 08:00] VITALS: BP 143/77; PULSE 83; RESP 17; TEMP 36.8; O2SAT 95
[2025-09-29] MEDS: ASPIRIN EC 81MG TABLET 81 MG PO (08:30)
[2025-09-29] MEDS: LISINOPRIL 20MG TABLET 20 MG PO (08:30)
[2025-09-29] MEDS: FERROUS SULFATE 325MG TABLET 325 MG PO (08:30)
[2025-09-29] MEDS: FUROSEMIDE 20MG TABLET 20 MG PO (08:30)
[2025-09-29] MEDS: LORATADINE 10MG TABLET 10 MG PO (08:30)
--- NOTE | 2025-09-29 08:45 | HMH.PHAAMS2 ---
- Antimicrobial Stewardship Review culture & sensitivity review Stewardship interventions: culture & sensitivity review, reviewed - no change Comments: CURRENTLY RECEIVING ZOSYN, WBC DOWN FROM 16.9 TO 9.8, URINE CX STILL PENDING, BLOOD CX GROWING E. COLI X2 AND SENSITIVE TO ZOSYN. 48 hour timeout review Stewardship interventions: 48 hour timeout review, reviewed - no change Comments: CURRENTLY RECEIVING ZOSYN FOR SEPSIS/E.COLI BACTEREMIA, WBC DOWN FROM 16.9 TO 9.8. URINE CX STILL PENDING, BLOOD CX GROWING E. COLI X2 AND SENSITIVE TO ZOSYN, AFEBRILE OVER 24 HR, RECOMMEND 7 DAYS OF ANTIBIOTICS.
--- NOTE | 2025-09-29 10:20 | P.DS_ITS ---
General Admission date:: 09/26/25 Discharge date: 09/29/25 HPI HPI HPI: Mr. Thurman is an 84-year-old gentleman who initially presented to the [facility] ED (on 08/27/2025) and was transferred to the [facility] with abdominal pain. He had acute cholecystitis and underwent cholecystectomy on August 27, 2025. At that time, he did have gallstone pancreatitis. Yesterday, he re- presented to the ED with complaints of epigastric abdominal pain and vomiting. He reported no fever. In the ED he had tachycardia and some hypotension. His CAT scan showed bile duct dilation. He had on labs leukocytosis with white blood cell count 28,000 and a lipase of 15,000. He also had elevation of his transaminases and alkaline phosphatase. His total bilirubin was 1.3 but today is 1.7. The remainder of his labs showed AST 371, ALT 319 and alkaline phosphatase 257. His lipase on 08/27 was 11,592 and this declined down to 884 on 09/22/2025. His lipase yesterday was 15,935. Imaging of the abdomen yesterday did not show evidence of pancreatic inflammation and the CBD was 11 mm. Hospital Course Hospital Course Hospital Course: Mr. Thurman is an 84-year-old male who presented to the emergency department on Friday with complaints of epigastric abdominal pain and vomiting. Patient was recently in our emergency department on 08/27/2025 and transferred to [facility] with abdominal pain where he underwent a cholecystectomy. Patient vitals significant for tachycardia, hypotension, elevated lipase of 15,000, leukocytosis of greater than 28,000, transaminitis and elevated alk phos. Bilirubin was 1.3. Imaging showed evidence of pancreatic inflammation and the CBD was 11 mm. GI was consulted, ERCP performed. Blood cultures returned positive for E. coli. Patient symptoms defervesced and he is tolerating oral intake with normalization of white count and resolution of pain. Transition to oral antibiotics to complete 10-day course for bacteremia. Stable discharge home with home health. Problems addressed as follows: Patient still requiring inpatient care due to E. coli bacteremia, transaminitis, leukocytosis. Anticipate discharge home in the next 1 to 2 days. #Severe sepsis #E. coli bacteremia ?Patient meeting severe sepsis criteria with elevated lactic acidosis, tachycardia, leukocytosis, and intermittent hypotension. CT shows cholangitis. Initial lactate 3.1 trending downward to 1.6. Blood cultures positive for E. coli, were also positive for E. coli in August 2025. Sensitive to Zosyn in August, patient initiated on Zosyn every 6 hours IV, patient also given 1 dose vancomycin in the emergency department. Cultures returned positive with s ensitivity to Levaquin this admission. Transition to Levaquin 750 mg daily with dose administered on day of discharge. Will complete 6 more doses for 10-day total course of antibiotics for E. coli bacteremia. Symptoms defervesced and white count normalized. Given his clinical improvement, stable discharge home to complete course of therapy. Patient has been afebrile and normotensive for over 48 hours. - White count trended down, 21 on admission. Improved to 9.7 by day of discharge. #Common bile duct dilatation #Cholangitis #Transaminitis #Acute pancreatitis #Status post ERCP ? Initial lipase of greater than 15,000 on admission, trending downward to 468. Transaminitis noted with elevated bilirubin at 1.7. This is likely secondary to cholangitis and recent cholecystectomy. Lipase more or less normalized. Liver enzymes improving with bilirubin 0.4, AST 54, ALT 165 and alk phos 176 by day of discharge. - GI was consulted on admission. Taken for ERCP. Procedure performed 09/27, found to have sludge and stone in distal common bile duct. Sweep was performed and this was removed. Sphincterotomy also performed. Ampulla dilated to 10 mm after initial sphincterotomy with performance of sphincteroplasty. Complete decompression of biliary system performed after removal of balloon. No residual sludge or stones in CBD. - Diet advanced after procedure. Able to tolerate regular diet by day of discharge. #COPD: Not in exacerbation at this time. DuoNebs every 6 hours as needed, Bevespi inhaler twice daily scheduled. Patient remained stable on room air. #CAD: Restarted aspirin 81 mg today. #Hypertension: Continue hypertensive medications: Lisinopril 20 mg twice daily, Lasix 20 mg daily. # Iron deficient anemia: Hemoglobin stable at 9.1. Continue to trend, resumed iron 325 mg twice daily. Total time spent on discharge 35 minutes in counseling, documentation, chart review, and direct care with patient. Exam Data for Last 24 hours Vital signs and Labs for Last 24 Hours: Temp Pulse Resp BP Pulse Ox O2 Del Method 98.3 F 83 17 143/77 H 95 Room Air 09/29/25 08:00 09/29/25 08:00 09/29/25 08:00 09/29/25 08:00 09/29/25 08:00 09/29/25 09:00 Laboratory Results - last 24 hr 09/29/25 05:45: WBC 9.8 D, RBC 3.02 L, Hgb 8.6 L, Hct 27.4 L, MCV 90.7, MCH 28.5, MCHC 31.4 L, RDW 14.8, Plt Count 153, MPV 9.5, Neut % (Auto) 79.2, Lymph % (Auto) 13.0, [place] % (Auto) 5.8, Eos % (Auto) 1.3, Baso % (Auto) 0.2, Neut # (Auto) 7.7, Lymph # (Auto) 1.3, [place] # (Auto) 0.6, Eos # (Auto) 0.1, Baso # (Auto) 0.0, Sodium 136, Potassium 3.5, Chloride 104, Carbon Dioxide 26, Anion Gap 9.5, BUN 11 D, Creatinine 0.90, Estimated Creat Clear 68, Estimated GFR 80, Est GFR ( Amer) 97, Glucose 97, Calcium 7.7 L, Total Bilirubin 0.4, AST 54 D, ALT 165 H D, Alkaline Phosphatase 176 H, Total Protein 5.6 L, Albumin 2.8 L, Globulin 2.8, Albumin/Globulin Ratio 1.0 L I & O for Last 24 hours: Intake & Output 09/26/25 09/27/25 09/28/25 09/29/25 23:59 23:59 23:59 23:59 Intake Total 2400 / 2400 2570 / 2820 3810.000 / 4060.000 590 / 590 Output Total 500 / 500 1550 / 1550 500 / 500 Balance 2400 / 2400 2070 / 2320 2260.000 / 2510.000 90 / 90 Weight 88.451 kg 84.55 kg 83.96 kg 91.036 kg Microbiology Reports for the Last 24 Hours: Microbiology 09/27/25 16:05 Urine,Clean Catch Urine Culture - Final No growth. 09/26/25 15:14 Blood Blood Culture - Final Escherichia coli 09/26/25 15:52 Blood Blood Culture - Final Escherichia coli Constitutional Constitutional: no acute distress, chronically ill appearing and cooperative *Routine HEENT Exam Head: Present normocephalic Eye: Present EOMI and PERRL ENT: Present mucous membranes moist *Routine Neck Exam Neck: Present supple; Absent lymphadenopathy *Routine Respiratory Exam Respiratory: Present CTA bilaterally; Absent rhonchi or wheezes *Routine Cardiovascular Exam Cardiovascular: Present RRR *Routine Abdominal Exam Abdominal: Present soft and normoactive bowel sounds; Absent tenderness *Routine Rectal Exam Patient deferred: visual exam *Routine Exam Patient deferred: penile exam *Routine Extremities Exam Extremities: Absent cyanosis, clubbing or edema *Routine Skin Exam Skin: Present warm; Absent rash *Routine Neurological Exam Neurological: Present alert, oriented X3 and moving all extremities; Absent altered mental status Results Data Completed and Pending Labs on day of discharge: Labs from last 24 hours 09/29/25 05:45 WBC 9.8 D RBC 3.02 L Hgb 8.6 L Hct 27.4 L MCV 90.7 MCH 28.5 MCHC 31.4 L RDW 14.8 Plt Count 153 MPV 9.5 Neut % (Auto) 79.2 Lymph % (Auto) 13.0 [place] % (Auto) 5.8 Eos % (Auto) 1.3 Baso % (Auto) 0.2 Neut # (Auto) 7.7 Lymph # (Auto) 1.3 [place] # (Auto) 0.6 Eos # (Auto) 0.1 Baso # (Auto) 0.0 Sodium 136 Potassium 3.5 Chloride 104 Carbon Dioxide 26 Anion Gap 9.5 BUN 11 D Creatinine 0.90 Estimated Creat Clear 68 Estimated GFR 80 Est GFR ( Amer) 97 Glucose 97 Calcium 7.7 L Total Bilirubin 0.4 AST 54 D ALT 165 H D Alkaline Phosphatase 176 H Total Protein 5.6 L Albumin 2.8 L Globulin 2.8 Albumin/Globulin Ratio 1.0 L DS: Diagnosis Discharge Diagnosis (1) Sepsis: Status: Acute Code(s): A41.9 - Sepsis, unspecified organism Qualifiers: Sepsis acute organ dysfunction status: without acute organ dysfunction Sepsis type: sepsis due to unspecified organism Qualified Code(s): A41.9 - Sepsis, unspecified organism Problem details: Secondary to E. coli bacteremia (2) Cholangitis: Status: Acute Code(s): K83.09 - Other cholangitis (3) Acute pancreatitis: Status: Acute Code(s): K85.90 - Acute pancreatitis without necrosis or infection, unspecified Qualifiers: Pancreatitis type: biliary Acute pancreatitis complication: no infection or necrosis Qualified Code(s): K85.10 - Biliary acute pancreatitis without necrosis or infection Problem details: Secondary to gallstones obstructing common bile duct (4) Coronary artery disease: Status: Chronic Code(s): I25.10 - Atherosclerotic heart disease of [place] coronary artery without angina pectoris Qualifiers: Associated angina: without angina Coronary Disease-Associated Artery/Lesion type: [place] artery [place] vs. transplanted heart: [place] heart Qualified Code(s): I25.10 - Atherosclerotic heart disease of [place] coronary artery without angina pectoris Problem details: Medical mgt (AUG 2023) (5) COPD (chronic obstructive pulmonary disease): Status: Acute Code(s): J44.9 - Chronic obstructive pulmonary disease, unspecified Qualifiers: COPD type: unspecified COPD Qualified Code(s): J44.9 - Chronic obstructive pulmonary disease, unspecified (6) Gallstone pancreatitis: Status: Acute Code(s): K85.10 - Biliary acute pancreatitis without necrosis or infection (7) Biliary sepsis: Status: Acute Code(s): K83.09 - Other cholangitis (8) Choledocholithiasis: Status: Acute Code(s): K80.50 - [place] of bile duct without cholangitis or cholecystitis without obstruction (9) Hypertension: Status: Acute Code(s): I10 - Essential (primary) hypertension Qualifiers: Hypertension type: primary hypertension Qualified Code(s): I10 - Essential (primary) hypertension (10) E coli bacteremia: Status: Acute Code(s): R78.81 - Bacteremia; B96.20 - Unspecified Escherichia coli [E. coli] as the cause of diseases classified elsewhere Problem details: Present on admission Meds Home Medications and Allergies Home Medications ?Medication ?Instructions ?Recorded ?Confirmed ?Type ascorbic acid (vitamin C) 500 mg 500 mg PO DAILY 01/2809/27/25 History tablet aspirin 81 mg tablet,delayed 81 mg PO DAILY 04/28/25 1 11/28/24 History release (Adult Low Dose Aspirin) omeprazole 20 mg capsule,delayed 20 mg PO DAILY 09/27/25 History release ferrous sulfate 325 mg (65 mg 325 mg PO BID #60 tabs 0 07/13/25 09/27/25 Rx iron) tablet glycopyrrolate 9 mcg-formoterol 2 puff inhalation BID #10.7 grams 07/28/25 09/27/25 Rx 4.8 mcg HFA aerosol inhaler (Bevespi Aerosphere) cetirizine 10 mg tablet 10 mg PO DAILY #90 tabs 07/2009/27/25 Rx fluticasone propionate 50 1 spray intranasal DAILY #16 grams 08/02/25 09/27/25 Rx mcg/actuation nasal spray,suspension albuterol sulfate 2.5 mg/3 mL 2.5 mg (3 mL) inhalation Q6H #360 09/13/25 09/27/25 Rx (0.083 %) solution for nebulization mL furosemide 20 mg tablet 20 mg PO DAILY 09/13/25 1207/14 History lisinopril 20 mg tablet 20 mg PO BID 09/13/25 History nitroglycerin 0.4 mg sublingual 0.4 mg sublingual Q5MI [employer] PRN Chest 09/20/25 09/27/25 History tablet Pain terazosin 5 mg capsule 5 mg PO HS 09/20/25 09/27/25 History albuterol sulfate 90 mcg/actuation 2 puff inhalation Q 6HP PRN 09/27/25 09/27/25 History aerosol inhaler shortness of breath or wheez ing docusate sodium 100 mg capsule 100 mg PO DAILYP PRN co nstipation 09/27/25 09/27/25 History (Stool Softener) doxazosin 4 mg tablet 4 mg PO HS 09/27/25 09/27/25 History montelukast 10 mg tablet 10 mg PO HS 09/27/25 5 History levofloxacin 750 mg tablet 750 mg PO DAILY #6 tabs 09/13 Rx New Prescriptions to Start Prescriptions: levofloxacin Rai Talavera Allergies Allergy/AdvReac Type Severity Reaction Status Date / Time [id number] Reductase AdvReac Intermediate MUSCLE Verified 09/22/25 09:55 Inhibitor ([id number] ACHES Reductase Inhibitor) azithromycin AdvReac Mild ANXIETY Verified 09/22/25 09:55 Discharge Plan Disposition Patient Disposition: Home Health Service Condition: Fair Discharge Order Discharge Orders: Discharge Order (Routine); Ordered 09/29/25 Ordered By: Rai Talavera Follow up Plan Follow up with: Lisa Arreola APRN [Primary Care Provider, Family Practice] - 10/05/25 1:00 pm Sathish Gordon II, MD [Staff Physician, Gastroenterology] - 11/03/25 10:15 am Prescriptions/Medication Reconciliation: New levofloxacin 750 mg tablet 750 mg PO DAILY Qty: 6 0RF Rx Instructions: start in morning of 09/30/25 Continued ascorbic acid (vitamin C) 500 mg tablet 500 mg PO DAILY aspirin [Adult Low Dose Aspirin] 81 mg tablet,delayed release (DR/EC) 81 mg PO DAILY omeprazole 20 mg capsule,delayed release(DR/EC) 20 mg PO DAILY cetirizine 10 mg tablet 10 mg PO DAILY Qty: 90 1RF fluticasone propionate 50 mcg/actuation spray,suspension 1 spray intranasal DAILY Qty: 16 2RF Rx Instructions: administer into each nostril terazosin 5 mg capsule 5 mg PO HS nitroglycerin 0.4 mg tablet, sublingual 0.4 mg sublingual Q5MINP PRN (Reason: Chest Pain) lisinopril 20 mg tablet 20 mg PO BID furosemide 20 mg tablet 20 mg PO DAILY albuterol sulfate 2.5 mg /3 mL (0.083 %) solution for nebulization 2.5 mg inhalation Q6H Qty: 360 0RF ferrous sulfate 325 mg (65 mg iron) tablet 325 mg PO BID Qty: 60 1RF Bevespi Aerosphere 9-4.8 mcg HFA aerosol inhaler 2 puff inhalation BID Qty: 10.7 3RF docusate sodium [Stool Softener] 100 mg capsule 100 mg PO DAILYP PRN (Reason: constipation) doxazosin 4 mg tablet 4 mg PO HS montelukast 10 mg tablet 10 mg PO HS albuterol sulfate 90 mcg/actuation HFA aerosol inhaler 2 puff inhalation Q6HP PRN (Reason: shortness of breath or wheezing) Patient Comments: INHALE 2 PUFFS BY MOUTH FOUR TIMES DAILY NEEDED FOR SHORTNESS OF BREATH OR WHEEZING Problem Reconciliation Problems Reviewed?: Yes Patient Discharge Instructions ACTIVITY: Continue current activity DIET: continue same diet Patient Instructions: DI for Pancreatitis, DI for Sepsis in Adults Print Language: [place] Providers Primary Care Provider: Lisa Arreola Admit Provider: Vega Espinosa Attending Provider: Vega Espinosa
[2025-09-29] MEDS: LEVOFLOXACIN/D5W 750 MG/150 ML 750 MG/150 ML PIGGYBACK 100 MG IV (10:35)
--- NOTE | 2025-09-29 11:07 | DIET.NUTRFU ---
provided handout for low fat diet secondary to gallbladder removed
--- NOTE | 2025-09-30 09:28 | CARE MANAGER ---
Called and spoke with patient regarding recent discharge. He stated that he will start his new antibiotic today at noon, he is doing well and is aware of his follow up appts. He had no concerns or questions at time of call.
== END 2025-09-29 12:35 | disposition home health service (06) | DRG 871 ==
LOC: ER 15:57 → 2ND 09-27 02:29
PROVIDERS: Emergency Medicine; Internal Medicine Gastroenterology; Nurse Practitioner Acute Care; Admitting Provider Student in an Organized Health Care Education/Training Program; Emergency Provider Student in an Organized Health Care Education/Training Program; PCP Nurse Practitioner; Responsible Provider Internal Medicine Adolescent Medicine; Visit Provider Student in an Organized Health Care Education/Training Program
PROC: 0FC98ZZ Extirpation of Matter from Common Bile Duct, Via Natural or Artificial Opening Endoscopic (ICD-10-PCS; CPT 43260; principal; 2025-09-27 09:20)
DX: A41.51 Sepsis due to Escherichia coli [E. coli] (principal); K85.10 Biliary acute pancreatitis without necrosis or infection; E87.20 Acidosis, unspecified; K80.30 Calculus of bile duct with cholangitis, unspecified, without obstruction; C34.90 Malignant neoplasm of unspecified part of unspecified bronchus or lung; R65.20 Severe sepsis without septic shock; I25.10 Atherosclerotic heart disease of native coronary artery without angina pectoris; J44.9 Chronic obstructive pulmonary disease, unspecified; I10 Essential (primary) hypertension; D50.9 Iron deficiency anemia, unspecified; Z90.49 Acquired absence of other specified parts of digestive tract; Z88.1 Allergy status to other antibiotic agents; Z88.8 Allergy status to other drugs, medicaments and biological substances; Z79.82 Long term (current) use of aspirin; Z79.51 Long term (current) use of inhaled steroids; Z79.52 Long term (current) use of systemic steroids; Z79.899 Other long term (current) drug therapy
CPT/HCPCS: 36415; 71275; 74177; 74330; 80053; 81001; 82550; 82803; 83605; 83690; 83735; 83880; 84100; 84484; 85025; 85610; 85651; 85730; 86140; 87040; 87077; 87086; 87154; 87186; 93005; 94640; 97162; 97166; 99285; C1726; C1769; J1100; J1171; J1885; J1956; J2003; J2405; J2543; J2704; J3010; J3375; J7120; Q9967

== ENCOUNTER 2025-10-05 16:30 | Outpatient (CLI) | payer MEDICARE, OTHER, SELFPAY ==
--- OUTSIDE RECORDS SUMMARY | 2025-08-27 18:38 | XMS_ITS | Encounter Summary ---
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 Helper Name Role Phone Lisa Arreola APRN Primary Care Provider [phone] Reason for Visit * Auth/Cert Specialty Diagnoses / Procedures Referred By Jorge t Referred To Contact Diagnoses Pancreatitis (pancreatitis) Referral ID Status Reason Start Date Expiration Date Visits Re quested Visits Authorized [id number] 1 1 Encounter Details Date Type Department Care Team (Late st Contact Info) Description 08/27/2025 6:38 PM EST - 09/05/2025 3:32 PM EST Hospital Encounter [address] [place] [id number] Edilma Mike MD [address] [address] Librado Bangura MD [address] [address] Linda Rubin MD [address] [place] [address] Cristian Mckee DO [address] [place] [address] Flora Baig MD [address] [address] eSlena Arias MD 1740 [facility] [address] [place] [address] Acute pancreatitis, unspecified complication status, unspecified pancreatitis [...] and heating? Not hard at all 08/29/2025 [facility] Occupat ional Health - Occupational Stress [...] things needed for daily living? No 08/29/2025 [facility] Utilities Answer Date Recorded In the [...] GED or equivalent No 08/29/2025 Preferred Language Albanian 08/29/2025 PHQ-2 Answer Date Recorded Patient Health [...] documented in this encounter Functional Status * AUDIT-C (Alcohol Use Disorders Identification Test) Question Answer Date of Assessment Author AUDIT-C Score 0 08/27/2025 6:54 PM EST Jamari Lawrence RN Q1: How often do you have a drink containing alcohol? Never 08/27/2025 6:54 PM Jamari Garcia RN Q2: How many drinks containing alcohol do you have on a typical day when you are drinking? Patient does not drink 08/27/2025 6:54 PM Jamari Garcia RN Q3: How often do you have six or more drinks on one occasion? Never 08/27/2025 6:54 PM Jamari Garcia RN * Over the past 2 weeks, how often have you been bothered by any of the following problems? Question Answer Date of Assessment Author Patient Health Questionnaire -2 Score 0 08/29/2025 10:37 AM EST Félix Azul RN * Suicidal Ideation (Past 1 Month) Question Answer Date of Assessment Author 1. Wish to be (Past 1 Month) No 025 9:46 PM Casi Crowley RN 2. Non-Specific Active Suici eliezer Thoughts (Past 1 Month) No 08/27/2025 9:46 PM Asiya Crowley RN * Calculated C-SSRS Risk Score (Lifetime/Recent) Answer Date of Assessment Author No Risk Indicated 08/27/2025 9:46 PM Casi Voss RN * [place] Suicide Severity Rating Scale (Screener/Recent Self-Report) Question Answer Date of Assessment Author 6. Suicidal Behavior (Lifetime) No 9:46 PM Casi Crowley RN * Mental Health Question Answer Date of Assessment Author Little interest or pleasure in doing things Not at all 08/29/2025 10:37 AM EST Félix Azul RN Feeling down, depressed, or hopeless Not at all 08/29/2025 10:37 AM EST Félix Azul RN documented as of this encounter Discharge Summaries * Daryl Schwab RN - 09/05/2025 1:02 PM EST Images from the original note were not included. Loc Thurman (84 y.o. Male) From Daryl Schwab [facility] [id number] Date of 1940 Social Security Number [id number] [place] [address] [employer] Jewish Marital Status Admission Date 08/27/2025 Admission Type Urgent Admitting Provider Selena Arias MD Attending Provider Selena Arias MD Department, Room/Bed [address], S581/1 Discharge Date Discharge Disposition Rehab [...] Payor Plan Fax Number Effective Dates [phone] 11/20/2003 - None Entered [facility] [id number] Subscriber Name Subscriber Date Member ID LOC THURMAN 1940 [id number] Secondary Coverage Payor Plan Insurance Group Employer/Plan Group [place] [employer] [place] [employer] Payor Plan Address Payor Plan Phone Number Payor Plan Fax Number Effective Dates [address] [employer] [place] [address]ARDO [phone] 10/20/2015 - None Entered [facility] [id number] Subscriber Name Subscriber Date Member ID LOC THURMAN 1940 [id number] Emergency Contacts Tube Rebuilder (Rel.) Home Phone Work Phone Mobile Phone Sarabjit Thurman (Son) -- -- [phone] Alexandru Thurman (Grandchild) -- -- [phone] Discharge Summary Selena Arias MD at 09/05/25 1249 [facility] Medicine Services DISCHARGE SUMMARY Patient Name: Loc [...] the biopsy showed. Procedure was done at [facility], will need to f/u outpatient. Discussed that [...] Blood Culture - Blood, Blood, Arterial Line [[id number]] (Normal) Collected: 08/28/25 0638 Lab Status: Final result Specimen: Blood, Arterial Line Updated: 09/02/25 0700 Blood Culture No growth at 5 days Blood Culture - Blood, Hand, Left [[id number]] (Normal) Collected: 08/28/25 0145 Lab Status: Final [...] report for full detail. Electronically Signed: Delbert Qian, MD 09/02/2025 12:12 PM EST Workstation ID: [id number] XR Chest 1 View Result Date: 09/02/2025 [...] mass is not well visualized. Electronically Signed: Lroaine Bryson MD 09/02/2025 12:03 PM EST Workstation ID: [id number] HELICOPTER OFFICER FEES - Fiberoptic Endo Eval Swallow Result [...] MD 08/29/2025 4:14 AM EST Workstation ID: [id number] FL Cholangiogram Operative Result Date: 08/28/2025 FL [...] MD 08/28/2025 3:24 PM EST Workstation ID: [id number] XR Chest 1 View Result Date: 08/28/2025 [...] MD 08/28/2025 11:08 AM EST Workstation ID: [id number] XR Abdomen KUB Result Date: 08/28/2025 XR [...] MD 08/28/2025 10:53 AM EST Workstation ID: [id number] XR Chest 1 View Result Date: 08/28/2025 [...] MD 08/28/2025 5:45 AM EST Workstation ID: [id number] CT Abdomen Pelvis Without Contrast Result Date: [...] MD 08/27/2025 10:25 PM EST Workstation ID: [id number] Results for orders placed during the hospital [...] lisinopril 40 MG tablet Commonly known as: SANGEETHAZESTRIL What changed: medication strength how much to [...] minutes on this discharge activity which included: gofh-ip-acyqxumoweovr with the patient, reviewing the data in the system, coordination of the care with the nursing staff as well as consultants, documentation, and entering orders. 1301 * Selena Arias MD - 09/05/2025 12:49 PM EST Images from the original note were not included. [facility] DISCHARGE SUMMARY Patient Name: Loc [...] the biopsy showed. Procedure was done at [facility], will need to f/u outpatient. Discussed that [...] Blood Culture - Blood, Blood, Arterial Line [[id number]] (Normal) Collected: 08/28/25 0638 Lab Status: Final result Specimen: Blood, Arterial Line Updated: 09/02/25 0700 Blood Culture No growth at 5 days Blood Culture - Blood, Hand, Left [[id number]] (Normal) Collected: 08/28/25 0145 Lab Status: Final [...] MD 09/02/2025 12:12 PM EST Workstation ID: [id number] XR Chest 1 View Result Date: 09/02/2025 [...] MD 09/02/2025 12:03 PM EST Workstation ID: [id number] HELICOPTER OFFICER FEES - Fiberoptic Endo Eval Swallow Result [...] MD 08/29/2025 4:14 AM EST Workstation ID: [id number] FL Cholangiogram Operative Result Date: 08/28/2025 FL [...] MD 08/28/2025 3:24 PM EST Workstation ID: [id number] XR Chest 1 View Result Date: 08/28/2025 [...] MD 08/28/2025 11:08 AM EST Workstation ID: [id number] XR Abdomen KUB Result Date: 08/28/2025 XR [...] MD 08/28/2025 10:53 AM EST Workstation ID: [id number] XR Chest 1 View Result Date: 08/28/2025 [...] MD 08/28/2025 5:45 AM EST Workstation ID: [id number] CT Abdomen Pelvis Without Contrast Result Date: [...] MD 08/27/2025 10:25 PM EST Workstation ID: [id number] Results for orders placed during the hospital [...] lisinopril 40 MG tablet Commonly known as: SANGEETHAZESTRIL What changed: medication strength how much to [...] minutes on this discharge activity which included: jfky-dl-gqezhfqayjasn with the patient, reviewing the data in the system, coordination of the care with the nursing staff as well as consultants, documentation, and entering orders. * Daryl Schwab RN - 09/02/2025 1:08 PM EST Images from the original note were not included. Loc Thurman (84 y.o. Male) From Daryl Schwab RN CM [id number] Date of 1940 Social Security Number [id number] [place] [address] [employer] Jewish Marital Status Admission Date 08/27/2025 Admission Type Urgent Admitting Provider Flora Baig MD Attending Provider Flora Baig MD Department, Room/Bed [address], S581/1 Discharge Date Discharge Disposition Discharge [...] Plan Fax Number Effective Dates [phone] 11/20/2003 - None Entered [facility] [address] Subscriber Name Subscriber Date Member ID LOC THURMAN 1940 [id number] Secondary Coverage Payor Plan Insurance Group Employer/Plan Group [employer] Payor Plan Address Payor Plan Phone Number Payor Plan Fax Number Effective Dates [address] [phone] 10/20/2015 - None Entered [facility] [address] Subscriber Name Subscriber Date Member ID LOC THURMAN 1940 [id number] Emergency Contacts Tube Rebuilder (Rel.) Home Phone Work Phone Mobile Phone Sarabjit Thurman (Son) -- -- [phone] Alexandru Thurman (Grandchild) -- -- [phone] Consult Notes (most recent note) Hermes Jaramillo MD at 08/27/25 211 Consult Orders 1. Inpatient General Surgery Consult [[id number]] ordered by Nesha Lopes APRN at 08/27/252003 Patient Name: Loc Thurman Date of : 1940 [id number] Patient Care Team: Provider, No Known as [...] left lung mass. He underwent bronchoscopy at [facility] yesterday. He states postoperatively he did [...] for cancers Social History: Pt lives in [facility]. Tobacco use: Denies , quit 35 years [...] Jaramillo MD 08/27/25 21:11 EST Dictated using MeterHeroation CT scan personally reviewed. This shows acute [...] INTRAOPERATIVE CHOLANGIOGRAM; Surgeon: Hermes Jaramillo MD; Location: [facility]; Service: General; Laterality: N/A; COLONOSCOPY HERNIA REPAIR [...] By Initials Name Provider Type LM Rhianna Tilley PT Physical Therapist Mobility Row Name 09/02/25 1143 Bed Mobility Comment, (Bed Mobility) Up in chair upon entering room. With MT going for MBS at end of session. -LM Row Name 09/02/25 1143 Sit-Stand Transfer Sit-Stand [place] (Transfers) minimum assist (75% patient effort);1 person assist;verbal cues -LM Assistive Device (Sit-Stand Transfers) walker, front-wheeled -LM Comment, (Sit-Stand Transfer) Vc's for hand placement. Increased time/effort needed. -LM Row Name 09/02/25 1143 Gait/Stairs (Locomotion) [place] Level (Gait) minimum assist (75% patient effort);1 [...] By Initials Name Provider Type LM Rhianna Tilley PT Physical Therapist Obj/Interventions Row Name 09/02/25 [...] Exercise) bilateral;dorsiflexion;plantarflexion;sitting;10 repetitions -LM Row Name 09/02/25 114 Balance Static Sitting Balance standby assist -LM Position, Sitting Balance unsupported;sitting in chair -LM Static Standing Balance contact guard;1-person assist;verbal cues -LM Dynamic Standing Balance minimal assist;1-person assist;verbal cues -LM Position/Device Used, Standing Balance supported;walker, front-wheeled -LM User Jung (r) = Recorded By, (t) = Taken By, (c) = Cosigned By Initials Name Provider Type Rhianna Montano PT Physical Therapist Goals/Plan No documentation. Clinical [...] Type Patsy Molina, OT Occupational Therapist Rhianna Montano PT Physical Therapist Physical Therapy Education Title: PT OT HELICOPTER OFFICER Therapies (In Progress) Topic: Physical Therapy (In [...] Re-Cert Due Date 09/09/25 -LM Timed Charges 70413 - PT Therapeutic Exercise Minutes 16 -LM 94311 - Gait Training Minutes 10 -LM Total Minutes Timed Charges Total Minutes 26 -LM Total Minutes 26 -LM User Jung (r) = Recorded By, (t) = Taken By, (c) = Cosigned By Initials Name Provider Type LM Rhianna Tilley, PT Physical Therapist Therapy Charges for Today Code Description Service Date Service Provider Modifiers Qty 42318126108 HC GAIT TRAINING EA 15 MIN 09/02/2025 Rhianna Tilley, PT GP 1 27341216921 HC PT THER PROC EA 15 MIN [...] INTRAOPERATIVE CHOLANGIOGRAM; Surgeon: Hermes Jaramillo MD; Location: [facility]; Service: General; Laterality: N/A; COLONOSCOPY HERNIA REPAIR General Information Row Name 09/02/25840 OT Time and Intention Document Type therapy note (daily note) -AC Mode of Treatment occupational therapy -AC Row Name 09/02/25840 General Information Patient Profile Reviewed yes -AC Existing Precautions/Restrictions fall abdominal incision, anxiety -AC Barriers to Rehab medically complex;previous functional deficit -AC Row Name 09/02/25840 Cognition Orientation Status (Cognition) oriented x 3 -AC Row Name 11/14/25 0841 Safety Issues/Impairments Affecting Functional Mobility Safety [...] Abernathy, OT Occupational Therapist Mobility/ADL's Row Name 09/02/25842 Bed Mobility Bed Mobility supine-sit - Supine-Sit [place] (Bed Mobility) moderate assist (50% patient effort);verbal [...] Transfers sit-stand transfer;toilet transfer - Row Name 09/02/25842 Bed-Chair Transfer Bed-Chair [place] (Transfers) verbal cues;minimum assist (75% patient effort) - Assistive Device (Bed-Chair Transfers) walker, front-wheeled - Comment, (Bed-Chair Transfer) increased time and effort, tremulous - Row Name 09/02/25842 Sit-Stand Transfer Sit-Stand [place] (Transfers) minimum assist (75% patient effort);verbal cues - Assistive Device (Sit-Stand Transfers) walker, front-wheeled - Comment, (Sit-Stand Transfer) VCs for hand placement and to place both feet in walker - Row Name 09/02/25842 Toilet Transfer [place] Level (Toilet Transfer) minimum assist (75% patient effort);1 person to manage equipment - Assistive Device (Toilet Transfer) commode, bedside without drop arms - Comment, (Toilet Transfer) increased time to take side steps, VCs to sequence - Row Name 11/14/25 0843 Functional Mobility Functional Mobility- Ind. Level minimum assist (75% patient effort) - Functional Mobility- Device walker, front-wheeled - Functional Mobility-Distance (Feet) -- 4 fft + 4ft - Functional Mobility- Safety Issues step length decreased - Row Name 09/02/25 0843 Activities of Daily Living BADL Assessment/Intervention lower body dressing;grooming;toileting - Row Name 09/02/25 0843 Lower Body Dressing Assessment/Training [place] Level (Lower Body Dressing) don;socks;dependent (less than 25% patient effort) - Position (Lower Body Dressing) supine - Row Name 09/02/25 0843 Grooming Assessment/Training [place] Level (Grooming) hair care, combing/brushing;oral care regimen;wash face, hands;standby assist - Position (Grooming) edge of bed sitting - Comment, (Grooming) bed pushed up to sink for grooming per pt request - Row Name 09/02/25 0843 Toileting Assessment/Training [place] Level (Toileting) adjust/manage clothing;perform perineal hygiene;maximum assist (25% patient effort) - Assistive Devices (Toileting) commode, bedside without drop arms -AC Position (Toileting) supported standing - User Jung (r) = Recorded By, (t) = Taken By, (c) = Cosigned By Initials Name Provider Type Patsy Molina, OT Occupational Therapist Obj/Interventions Row Name 09/02/25 0848 Balance Balance Assessment sitting static balance;sitting dynamic balance;standing static balance;standing dynamic balance - Static Sitting Balance standby assist - Dynamic Sitting Balance contact guard -AC Position, Sitting Balance sitting edge of bed;unsupported - Static Standing Balance verbal cues;minimal assist -AC [...] - no pain - Row Name 09/02/25 0849 Plan of Care Review Plan of Care Reviewed With patient -AC Progress improving - Outcome Evaluation Pt progressed [...] Type AC Patsy Abernathy, OT Occupational Therapist Outcome Measures Row Name [...] -AC AM-PAC 6 Clicks Score (OT) 13 - Row Name 09/02/25 0854 Functional Assessment Outcome Measure Options AM-PAC 6 Clicks Daily Activity (OT) -AC User Jung (r) = Recorded By, (t) = Taken By, (c) = Cosigned By Initials Name Provider Type Patsy Abernathy, OT Occupational Therapist Occupational Therapy Education Title: PT OT HELICOPTER OFFICER Therapies (In Progress) Topic: Occupational Therapy (In [...] Initials Effective Dates Name Provider Type Discipline 11/22/22 - Patsy Abernathy, OT Occupational Therapist OT 08/02/22 - Aury Fitzgerald, OT Occupational Therapist OT 07/10/21 - Radha [...] Re-Cert Due Date 09/09/25 -AC Timed Charges 40348 - OT Therapeutic Activity Minutes 15 -AC 40534 - OT Self Care/Mgmt Minutes 40 -AC Total Minutes Timed Charges Total Minutes 55 -AC Total Minutes 55 -AC User Jung (r) = Recorded By, (t) = Taken By, (c) = Cosigned By Initials Name Provider Type Patsy Abernathy OT Occupational Therapist Therapy Charges for Today Code Description Service Date Service Provider Modifiers Qty 77446259424 OT THERAPEUTIC ACT EA 15 MIN 09/02/2025 Patsy Abernathy OT GO 1 [id number] OT SELF CARE/MGMT/TRAIN EA 15 MIN 09/02/2025 Patsy Abernathy OT GO 3 Patsy Abernathy OT 09/02/2025 0829 Speech Language Pathology Notes (most recent note) Andrea Dukes MS CCC-HELICOPTER OFFICER at 09/02/25 1304 Acute Care - Speech Language Pathology Swallow Re-Assessment [facility] Modified Barium Swallow Study (MBS) Patient [...] INTRAOPERATIVE CHOLANGIOGRAM; Surgeon: Hermes Jaramillo MD; Location: [facility]; Service: General; Laterality: N/A; COLONOSCOPY HERNIA REPAIR HELICOPTER OFFICER Recommendation and Plan Recommended discharge disposition is based on the functional assessment performed by PT/OT/Speech therapy (as applicable) and may not reflect the medical necessity determined by your provider or services covered by an individual patient's insurance plan or patient resource. HELICOPTER OFFICER Swallowing Diagnosis: mild, oral dysphagia, mod-severe, pharyngeal dysphagia (09/02/25 1100) HELICOPTER OFFICER Diet Recommendation: mechanical ground textures, no mixed consistencies, honey thick liquids (11/14/25 1100) Recommended Precautions and Strategies: no straw, small bites of food and sips of liquid, upright posture during/after eating, general aspiration precautions (09/02/251099) HELICOPTER OFFICER Rec. for Method of Medication Administration: meds whole, with thick liquids, with puree (09/02/251099) Monitor for Signs of Aspiration: yes, notify HELICOPTER OFFICER if any concerns (09/02/251099) Swallow Criteria for Skilled Therapeutic Interventions Met: demonstrates skilled criteria () Anticipated Discharge Disposition (HELICOPTER OFFICER): inpatient rehabilitation facility (09/02/251099) Rehab Potential/Prognosis, Swallowing: good, to achieve stated therapy goals (09/02/251099) Therapy Frequency (Swallow): 5 days per week (09/02/251099) Predicted Duration Therapy Intervention (Days): 2 weeks (09/02/251099) Oral Care Recommendations: Oral Care BID/PRN, Suction toothbrush (09/02/251099) Progress: declining SWALLOW EVALUATION (Last 72 Hours) HELICOPTER OFFICER Adult Swallow Evaluation Row Name 09/02/25109909/01/25 1530 08/31/25 0815 Rehab Evaluation Document Type [...] Pertinent History Of Current Problem See previous HELICOPTER OFFICER notes -RS See previous HELICOPTER OFFICER notes -SM See previous HELICOPTER OFFICER notes. Pt has been cleared for PO diet by surgeon -RS Current Method of Nutrition -- pureed;nectar/syrup-thick liquids -SM NPO;large- bore -RS Pain Pretreatment Pain Rating 0/10 - no pain -RS 0/10 - no pain -SM 0/10 - no pain -RS Posttreatment Pain Rating 0/10 - no pain -RS 0/10 - no pain - 0/10 - no pain -RS Oral Motor Structure and Function Dentition Assessment -- -- upper dentures/partial in place;lower dentures/partial in place -RS Secretion Management -- -- WNL/WFL -RS Mucosal Quality -- -- dry;sticky -RS General Eating/Swallowing Observations Respiratory Support Currently in Use room air -RS room air -SM nasal cannula -RS O2 Liters -- -- 3L -RS Eating/Swallowing Skills fed by HELICOPTER OFFICER;needed assist;self-fed -RS self-fed;fed by HELICOPTER OFFICER;needed assist - fed by staff/caregiver -RS Positioning During Eating [...] Signs of aspiration;Silent aspiration;Risks of aspiration -RS HELICOPTER OFFICER Evaluation Clinical Impression HELICOPTER OFFICER Swallowing Diagnosis mild;oral dysphagia;mod-severe;pharyngeal dysphagia -RS -- moderate;oral dysphagia;pharyngeal dysphagia -RS Functional Impact risk of aspiration/pneumonia -RS -- risk of aspiration/pneumonia -RS Rehab Potential/Prognosis, Swallowing good, to achieve stated therapy goals -RS -- good, to achievestated therapy goals -RS Swallow Criteria for Skilled Therapeutic Interventions Met demonstrates skilled criteria -RS -- demonstrates skilled criteria -RS HELICOPTER OFFICER Treatment Clinical Impressions Treatment Assessment (HELICOPTER OFFICER) -- toleration of diet;clinical signs of;aspiration - SM -- Treatment Assessment Comments (HELICOPTER OFFICER) -- Pt requesting thin liquids. Explained justification of thickened liquids -SM -- Daily Summary of Progress (HELICOPTER OFFICER) -- progress toward functional goals is good -SM -- Plan for Continued Treatment (HELICOPTER OFFICER) -- continue treatment per plan of care -SM -- Care Plan Review -- evaluation/treatment results reviewed;patient/other agree to care plan -SM -- Recommendations Therapy Frequency (Swallow) 5 days per week -RS 5 days per week -SM 5 days per week -RS Predicted Duration Therapy Intervention (Days) 2 weeks -RS 2 weeks -SM 2 weeks -RS HELICOPTER OFFICER Diet Recommendation mechanical ground textures;no mixed consistencies;honey thick liquids -RS mechanical ground textures;nectar thick liquids;ice chips between meals after oral care, with supervision -SM puree;nectar thick liquids;other (see comments) PO diet at discretion of surgeon only -RS Recommended Diagnostics -- reassess via FEES -SM -- Recommended Precautions and Strategies no straw;small bites of food and sips of liquid;upright posture during/after eating;general aspiration precautions -RS upright posture during/after eating;general aspiration precautions -SM upright posture during/after eating;general aspiration precautions -RS Oral Care Recommendations Oral Care BID/PRN;Suction toothbrush -RS Oral Care BID/PRN;Suction toothbrush -SM Oral Care BID/PRN;Suction toothbrush -RS HELICOPTER OFFICER Rec. for Method of Medication Administration meds whole;with thick liquids;with puree -RS meds whole;with thick liquids -SM meds whole;with thick liquids;meds via alternate route -RS Monitor for Signs of Aspiration yes;notify HELICOPTER OFFICER if any concerns -RS yes;notify HELICOPTER OFFICER if any concerns -SM yes;notify HELICOPTER OFFICER if any concerns -RS Anticipated Discharge Disposition (HELICOPTER OFFICER) inpatient rehabilitation facility -RS inpatient rehabilitation facility -SM inpatient rehabilitation facility -RS User Jung (r) = Recorded By, (t) = Taken By, (c) = Cosigned By Initials Name Effective Dates Andrea Mitchell MS [facility]-HELICOPTER OFFICER 07/03/23 - Nora Weiner MS [facility]-HELICOPTER OFFICER 03/24/25 - EDUCATION The patient has been educated in the following areas: Dysphagia (Swallowing Impairment) Modified Diet Instruction. HELICOPTER OFFICER GOALS Row Name 09/02/25 1100 09/01/25 1530 08/31/25 0815 (LTG) Patient will demonstrate functional swallow for Diet Texture (Demonstrate functional swallow) regular textures -RS regular textures -SM regular textures -RS Liquid viscosity (Demonstrate functional swallow) thin liquids -RS thin liquids -SM thin liquids -RS [place] (Demonstrate functional swallow) independently (over 90% accuracy) [...] signs of distress;with adequate oral prep/transit/clearance -RS [place] (Tolerate trials) with minimal cues (75-90% accuracy) -RS with minimal cues (75-90% accuracy) -SM with minimal cues (75-90% accuracy) -RS Time Frame (Tolerate trials) 1 week -RS 1 week -SM 1 week -RS Progress/Outcomes (Tolerate trials) goal revised this date -RS goal revised this date -SM new goal -RS Comment (Tolerate trials) -- Upgraded to [facility] grnd solids -SM -- (STG) Patient [...] signs of distress;with adequate oral prep/transit/clearance -RS [place] (Tolerate therapeutic trials) with minimal cues (75-90% accuracy) - RS with minimal cues (75-90% accuracy) -SM with minimal cues (75-90% accuracy) -RS Time Frame (Tolerate therapeutic trials) 1 week -RS 1 week -SM 1 week -RS Progress/Outcomes (Tolerate therapeutic trials) goal revised this date -RS continuing progress toward goal - new goal -RS Comment (Tolerate therapeutic trials) -- Per RN, pt requesting thin liquids all day. Assessed ice and sips of thin water at bedside, pt consistently demonstrating TC. No s/sxs w/ nectar or solid trials. Oral concerns w/ solid, but OK to upgrade to [facility] grnd and monitor tolerance -SM -- (STG) Lingual Strengthening Goal 1 (HELICOPTER OFFICER) Activity (Lingual Strengthening Goal 1, HELICOPTER OFFICER) increase tongue back strength -RS increase tongue backstrength -SM increase tongue back strength -RS Increase Tongue Back Strength lingual resistance exercises -RS lingual resistance exercises -SM lingual resistance exercises -RS [place]/Accuracy (Lingual Strengthening Goal 1, HELICOPTER OFFICER) with minimal cues (75- 90% accuracy) -RS with minimal cues (75-90% accuracy) -SM with minimal cues (75- 90% accuracy) -RS Time Frame (Lingual Strengthening Goal 1, HELICOPTER OFFICER) 1 week -RS 1 week -SM 1 week -RS Progress/Outcomes (Lingual Strengthening Goal 1, HELICOPTER OFFICER) goal ongoing -RS continuing progress toward goal -SM new goal -RS (STG) Pharyngeal Strengthening Exercise Goal 1 (HELICOPTER OFFICER) Activity (Pharyngeal Strengthening Goal 1, HELICOPTER OFFICER) increase timing;increase superior movement of the hyolaryngeal [...] Retraction mike -RS mike -SM mike -RS [place]/Accuracy (Pharyngeal Strengthening Goal 1, HELICOPTER OFFICER) with minimal cues (75-90% accuracy) -RS with minimal cues (75-90% accuracy) -SM with minimal cues (75-90% accuracy) -RS Time Frame (Pharyngeal Strengthening Goal 1, HELICOPTER OFFICER) 1 week -RS 1 week -SM 1 week -RS Progress/Outcomes (Pharyngeal Strengthening Goal 1, HELICOPTER OFFICER) goal ongoing -RS continuing progress toward goal -SM new goal -RS Comment (Pharyngeal Strengthening Goal 1, HELICOPTER OFFICER) -- Demo'd all and left at bedside - -- User Jung (r) = Recorded By, (t) = Taken By, (c) = Cosigned By Initials Name Provider Type RS Andrea Dukes MS CCC-HELICOPTER OFFICER Speech and Language Pathologist Nora Weiner MS CF-HELICOPTER OFFICER Speech and Language Pathologist Time Calculation: Time Calculation- HELICOPTER OFFICER Row Name 09/02/25 1302 Time Calculation- HELICOPTER OFFICER HELICOPTER OFFICER Start Time 1100 -RS HELICOPTER OFFICER Received On 09/02/25 -RS Untimed Charges 77073-CY Motion Fluoro Eval Swallow Minutes 61 -RS Total Minutes Untimed Charges Total Minutes 61 -RS Total Minutes 61 -RS User Jung (r) = Recorded By, (t) = Taken By, (c) = Cosigned By Initials Name Provider Type RS Andrea Dukes MS CCC-HELICOPTER OFFICER Speech and Language Pathologist Therapy Charges for Today Code Description Service Date Service Provider Modifiers Qty 63043323650 HC ST MOTION FLUORO EVAL SWALLOW 4 09/02/2025 Andrea Dukes MS CCC- HELICOPTER OFFICER GN 1 MS MARIA INES Chatterjee 09/02/2025 1305 * Daryl Schwab RN - 09/01/2025 12:36 PM EST Images from the original note were not included. Loc Thurman (84 y.o. Male) From Daryl Schwab RN [id number] Date of 1940 Social Security Number [id number] [place] [address] N [id number] [employer] Marital Status Admission Date 08/27/2025 Admission Type Urgent Admitting Provider Flora Baig MD Attending Provider Flora Baig MD Department, Room/Bed [address], S581/1 Discharge Date Discharge Disposition Discharge [...] Plan Fax Number Effective Dates [phone] 11/20/2003 - None Entered [place] [address] Subscriber Name Subscriber Date Member ID LOC THURMAN 1940 [id number] Secondary Coverage Payor Plan Insurance Group Employer/Plan Group [employer] WEINER Payor Plan Address Payor Plan Phone Number Payor Plan Fax Number Effective Dates [address] [phone] 10/20/2015 - [place] [address] Subscriber Name Subscriber Date Member ID LOC THURMAN 1940 [id number] Emergency Contacts Tube Rebuilder (Rel.) Home Phone Work Phone Mobile Phone Sarabjit Thurman (Son) -- -- [phone] OlmanAlexandru (Grandchild) -- -- [phone] History & Physical ScottieLinda MD at 08/27/25 2340 PARKING PATROLLER PROGRESS NOTE SUBJECTIVE Loc 84 y.o. male is followed for:No chief complaint on file. Pancreatitis Vasovagal syncope HTN (hypertension) Mixed hyperlipidemia COPD (chronic obstructive pulmonary disease) Former tobacco use History of prostate cancer BPH with obstruction/lower urinary tract symptoms As an Final Block Press Operator, we provide an integrated approach to the [...] mass who [facility] on [facility]2025 because of evaluation of possible pancreatitis and cholecystitis. Patient underwent bronchoscopy yesterday for lung nodules/mass. Did have scant hemoptysis mixed in with saliva yesterday evening postprocedure. Has not had any olga hemoptysis orno further episodes. Today he woke up with upper abdominal pain after eating breakfast as well as nausea and vomiting. Went to [facility] and during transport her head syncopal episode [...] social history were reviewed and updated in [facility] as appropriate. Review of Systems As described in the HPI. OBJECTIVE Vitals: Temp: 97.4 ??F (36.3 ??C) (08/27/25 2321) Temp Min: 97.4 ??F (36.3 ??C) Max: [...] (08/27/252058) Best Verbal Response: 5-->(V5) oriented (08/27/252058) Eugene Coma Scale Score: 15 (08/27/252058) Lines, Drains & Airways Active LDAs Name Placement date Placement time Site Days Peripheral IV 20 G Anterior;Proximal;Right Forearm -- -- Forearm -- Peripheral IV 08/27/252330 18 G Anterior;Right;Upper Arm 11/08/25 2331 Arm less than 1 Results Reviewed: Laboratory [...] MD 08/27/2025 10:25 PM EST Workstation ID: [id number] Echo: Results: Reviewed. I reviewed the patient's [...] 0059 Librado Bangura MD at 08/27/25 1910 [facility] HISTORY AND PHYSICAL Patient [...] (2014), and tobacco use [facility] for evaluation of pancreatitis and distended gallbladder. History of Present Illness Reason for Admit: Abdominal pain with nausea vomiting The [facility] from [facility] for evaluation of abdominal pain with nausea and vomiting. He reports experiencing abdominal pain and chest discomfort, which began this morning after consuming a bowl of cereal for breakfast. The pain, described as a constant ache across his lower chest andupper abdomen, initially peaked at a severity of 10/10. [facility], morphine was administered, but it was ineffective [...] and sees Dr. Brooks for cardiology in [place]. Review of Systems Constitutional: Positive for activity [...] (2014), and tobacco use [facility] from [facility] for evaluation of pancreatitis and distended gallbladder. Patient/family describe syncopal episode in ambulance in route from [facility] this afternoon subjective SBP in the 80s. 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 Attending Admission Attestation I have performed an independent [id number] diagnostic evaluation including performing an independent physical examination. I approve of the documented plan of care above that was reviewed and developed with the advanced practice lead (APC) and take responsibility for that plan along with itsassociated risks. I have updated the HPI as appropriate. Brief HPI Loc Thurman is a 84 y.o. 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 [...] Bangura MD 08/27/25 Contains text generated by AbilTo [id number] Operative/Procedure Notes (most recent note) Hermes Jaramillo MD at 08/28/25 0820 Operative Report Patient Name: Loc Thurman Date of : 1940 [id number] 08/28/2025 PREOPERATIVE DIAGNOSIS: Acute cholecystitis with sepsis POSTOPERATIVE DIAGNOSIS: Same PROCEDURE PERFORMED: Laparoscopic cholecystectomy with intraoperative cholangiography SURGEON: Hermes Jaramillo MD GIS ENGINEER: Annie Jorgensen PA-C. Annie Jorgensen PA-C was [...] of 0 Vicryl was then placed in cmvusq-lo-amvif fashion around the defect, and a blunt [...] None Hermes Jaramillo MD 08/28/2025 09:22 EST 0926 Physician Progress Notes (most recent note) Flora Baig MD at 09/01/25 1036 [facility] PROGRESS NOTE Patient Name: Loc [...] Lab 09/01/25 0401 08/31/25 0338 08/30/25 0403 08/28/25 0955 08/28/2513 08/27/251942 TOTAL PROTEIN 5.0* 5.1* 5.0* 5.2* 4.6* [...] Lab Results None Microbiology Results Abnormal None HELICOPTER OFFICER FEES - Fiberoptic Endo Eval Swallow Result [...] Consult Orders 1. Inpatient General Surgery Consult [[id number]] ordered by Nesha Lopes APRN at 08/27/252003 Patient Name: Loc Thurman Date of : 1940 [id number] Patient Care Team: Provider, No Known as [...] left lung mass. He underwent bronchoscopy at [facility] yesterday. He states postoperatively he did [...] for cancers Social History: Pt [facility]. Tobacco use: Denies , quit 35 years [...] Jaramillo MD 08/27/25 21:11 EST Dictated using [employer]topia[employer] Dictation CT scan personally reviewed. This shows [...] INTRAOPERATIVE CHOLANGIOGRAM; Surgeon: Hermes Jaramillo MD; Location: [facility]; Service: General; Laterality: N/A; COLONOSCOPY HERNIA REPAIR [...] SULAIMAN Tee Marina, PT Student PT Student Mobility Row Name 08/31/25 1027 Bed Mobility Bed Mobility supine-sit (P) -SULAIMAN Supine-Sit [place] (Bed Mobility) moderate assist (50% patient effort);2 person assist;verbal cues (P) -SULAIMAN Assistive Device (Bed Mobility) bed rails;head of bed elevated;repositioning sheet (P) -SULAIMAN Comment, (Bed Mobility) VCs for sequencing, assist at trunk and BLEs, increased time and effort, R lateral lean sitting EOB (P) -SULAIMAN Row Name 08/31/25 1027 Bed-Chair Transfer Bed-Chair [place] (Transfers) moderate assist (50% patient effort);2 person assist;verbal cues(P) -SULAIMAN Assistive Device (Bed-Chair Transfers) other (see comments) (P) BUE support -SULAIMAN Comment, (Bed-Chair Transfer) VCs for sequencing (P) -SULAIMAN Row Name 08/31/25 1027 Sit-Stand Transfer Sit-Stand [place] (Transfers) minimum assist (75% patient effort);2 person assist;verbal cues (P) -SULAIMAN Assistive Device (Sit-Stand Transfers) other (see comments) (P) B UE support -SULAIMAN Comment, (Sit-Stand Transfer) VCs for upright posture (P) -SULAIMAN Row Name 08/31/25 1027 Gait/Stairs (Locomotion) [place] Level (Gait) moderate assist (50% patient effort);2 person assist;verbal cues (P) -SULAIMAN Assistive Device (Gait) other (see comments) (P) B GLASS BEVELER -SULAIMAN Distance in Feet (Gait) 16 (P) [...] IPPT. Pt amb 16 ft w/ B GLASS BEVELER modAx2, further mobility limited by weakness and [...] Student Physical Therapy Education Title: PT OT HELICOPTER OFFICER Therapies (In Progress) Topic: Physical Therapy (In [...] Received On 08/31/25 (P) -SULAIMAN Timed Charges 76698 - PT Therapeutic Activity Minutes 24 (P) -SULAIMAN Total Minutes Timed Charges Total Minutes 24 (P) -SULAIMAN Total Minutes 24 (P) -SULAIMAN User Jung (r) = Recorded By, (t) = Taken By, (c) = Cosigned By Initials Name Provider Type Tee Taylor, PT Student PT Student Therapy Charges for Today Code Description Service Date Service Provider Modifiers Qty [id number] HC PT THERAPEUTIC ACT EA 15 MIN 08/31/2025 Tee Marina, PT Student GP 2 PT G-Codes Outcome Measure Options: (P) AM-PAC 6 Clicks Basic Mobility (PT) AM-PAC 6 Clicks Score (PT): (P) 11 AM-PAC 6 Clicks Score (OT): 12 PT Discharge Summary Anticipated Discharge Disposition (PT): (P) inpatient rehabilitation facility Tee Marina PT Student 08/31/2025 1304 Occupational Therapy Notes (most recent note) Radha Smith, OT at 08/31/25 1307 Patient Name: [...] INTRAOPERATIVE CHOLANGIOGRAM; Surgeon: Hermes Jaramillo MD; Location: [facility]; Service: General; Laterality: N/A; COLONOSCOPY HERNIA REPAIR General Information Row Name 08/31/25 1338 OT Time and Intention Document Type therapy note (daily note) -AN Mode of Treatment occupational therapy -AN Row Name 08/31/25 1338 General Information Patient Profile Reviewed yes -AN [...] 08/31/25 1339 Bed Mobility Comment, (Bed Mobility) [facility] upon arrival -AN User Jung (r) = [...] Exercise) bilateral;flexion;extension;sitting;10 repetitions -AN Row Name 08/31/25 134 Motor Skills Therapeutic Exercise shoulder;elbow/forearm -AN Row Name 08/31/25 134 Balance Balance Assessment sitting static balance;sitting dynamic [...] No documentation. Clinical Impression Row Name 08/31/25 134 Pain Assessment Pretreatment Pain Rating 0/10 - no pain -AN Posttreatment Pain Rating 0/10 - no pain -AN Row Name 08/31/25 134 Plan of Care Review Plan of Care Reviewed With patient;son -AN Progress improving -AN Outcome Evaluation Pt continues to progress towards all OT goals, limited by weakness, confusion, and decreased activity tolerance. Pt tolerated seated UE ther-ex this session with AAROM/AROM. Cont POC. -AN Row Name 08/31/25 134 Therapy Plan Review/Discharge Plan (OT) Anticipated Discharge Disposition (OT) inpatient rehabilitation facility -AN Row Name 08/31/25 134 Positioning and Restraints Pre-Treatment Position sitting in chair/recliner -AN Post Treatment Position chair -AN In Chair notified nsg;reclined;call light within reach;encouraged to call for assist;exit alarm on;waffle cushion;with family/caregiver;on mechanical lift sling;legs elevated -AN User Jung (r) = Recorded By, (t) = Taken By, (c) = Cosigned By Initials Name Provider Type Radha Liao OT Occupational Therapist Outcome Measures Row Name 08/31/25 1349 How much help from another is currently [...] Provider Type Flora Finley, PT Physical Therapist Radha Liao, OT Occupational Therapist Tee Taylor, PT Student PT Student Occupational Therapy Education Title: PT OT HELICOPTER OFFICER Therapies (In Progress) Topic: Occupational Therapy (Done) Point: ADL training (Done) Learning Progress Summary Patient Acceptance, E, VU by JUAQUIN at 08/31/2025 [...] Time Calculation: Time Calculation- OT Row Name 08/31/251348 Time Calculation- OT OT Start Time 1307 -AN OT Received On 08/31/25 -AN Timed Charges 22709 - OT Therapeutic Exercise Minutes 12 -AN Total Minutes Timed Charges Total Minutes 12 -AN Total Minutes 12 -AN User Jung (r) = Recorded By, (t) = Taken By, (c) = Cosigned By Initials Name Provider Type Radha Smith OT Occupational Therapist Therapy Charges for Today Code Description Service Date Service Provider Modifiers Qty [id number] OT THER PROC EA 15 MIN 08/31/2025 Radha Smith OT GO 1 Radhanatanael Smith OT 08/31/2025 134 Speech Language Pathology Notes (most recent note) Andrea Dukes MS [facility]-HELICOPTER OFFICER at 08/31/25 0943 Acute Care - Speech Language Pathology Swallow Re-Evaluation Basil Fiberoptic Endoscopic Evaluation of Swallowing (FEES) Patient [...] INTRAOPERATIVE CHOLANGIOGRAM; Surgeon: Hermes Jaramillo MD; Location: [facility]; Service: General; Laterality: N/A; COLONOSCOPY HERNIA REPAIR HELICOPTER OFFICER Recommendation and Plan Recommended discharge disposition is based on the functional assessment performed by PT/OT/Speech therapy (as applicable) and may not reflect the medical necessity determined by your provider or services covered by an individual patient's insurance plan or patient resource. HELICOPTER OFFICER Swallowing Diagnosis: moderate, oral dysphagia, pharyngeal dysphagia (08/31/25814) HELICOPTER OFFICER Diet Recommendation: puree, nectar thick liquids, other (see comments) (PO diet at discretion of surgeon only) (08/31/25814) Recommended Precautions and Strategies: upright posture during/after eating, general aspiration precautions (08/31/25814) HELICOPTER OFFICER Rec. for Method of Medication Administration: meds whole, with thick liquids, meds via alternate route (08/31/25814) Monitor for Signs of Aspiration: yes, notify HELICOPTER OFFICER if any concerns (08/31/25814) Swallow Criteria for Skilled Therapeutic Interventions Met: demonstrates skilled criteria () Anticipated Discharge Disposition (HELICOPTER OFFICER): inpatient rehabilitation facility (08/31/25814) Rehab Potential/Prognosis, Swallowing: good, to achieve stated therapy goals (08/31/25814) Therapy Frequency (Swallow): 5 days per week (08/31/25814) Predicted Duration Therapy Intervention (Days): 2 weeks (08/31/25814) Oral Care Recommendations: Oral Care BID/PRN, Suction toothbrush (08/31/25814) Progress: improving SWALLOW EVALUATION (Last 72 Hours) HELICOPTER OFFICER Adult Swallow Evaluation Row Name 08/31/25 0815 08/30/25 1006 Rehab Evaluation Document Type re-evaluation -RS evaluation [...] Pertinent History Of Current Problem See previous HELICOPTER OFFICER notes. Pt has been cleared for PO [...] Skills fed by staff/caregiver -RS self-fed;fed by HELICOPTER OFFICER -AC (r) IG (t) AC (c) Positioning [...] of aspiration;Silent aspiration;Risks of aspiration -RS -- HELICOPTER OFFICER Evaluation Clinical Impression HELICOPTER OFFICER Swallowing Diagnosis moderate;oral dysphagia;pharyngeal dysphagia -RS suspected [...] weeks -AC (r) IG (t) AC (c) HELICOPTER OFFICER Diet Recommendation puree;nectar thick liquids;other (see comments) [...] toothbrush -AC (r) IG (t) AC (c) HELICOPTER OFFICER Rec. for Method of Medication Administration meds whole;with thick liquids;meds via alternate route -RS meds via alternate route -AC (r) IG (t) AC (c) Monitor for Signs of Aspiration yes;notify HELICOPTER OFFICER if any concerns -RS yes;notify HELICOPTER OFFICER if any concerns -AC (r) IG (t) AC (c) Anticipated Discharge Disposition (HELICOPTER OFFICER) inpatient rehabilitation facility -RS inpatient rehabilitation facility -AC (r) IG (t) AC (c) User Jung (r) = Recorded By, (t) = Taken By, (c) = Cosigned By Initials Name Effective Dates AC Lea Echols, MS [facility]-HELICOPTER OFFICER 11/22/22 - RS Andrea Dukes MS [facility]-HELICOPTER OFFICER 07/03/23 - Alma Arshad, Speech Therapy Student 06/08/25 - EDUCATION The patient has been educated in the following areas: Dysphagia (Swallowing Impairment) Modified Diet Instruction. HELICOPTER OFFICER GOALS Row Name 08/31/25 0815 (LTG) Patient will demonstrate functional swallow for Diet Texture (Demonstrate functional swallow) regular textures -RS Liquid viscosity (Demonstrate functional swallow) thin liquids -RS [place] (Demonstrate functional swallow) independently (over 90% accuracy) -RS Time Frame (Demonstrate functional swallow) 2 weeks -RS Progress/Outcomes (Demonstrate functional swallow) new goal -RS (STG) Patient will tolerate trials of Consistencies Trialed (Tolerate trials) pureed textures;nectar/ mildly thick liquids -RS Desired Outcome (Tolerate trials) without signs/symptoms of aspiration;without signs of distress;with adequate oral prep/transit/clearance -RS [place] (Tolerate trials) with minimal cues (75-90% accuracy) -RS Time Frame (Tolerate trials) 1 week -RS Progress/Outcomes (Tolerate trials) new goal -RS (STG) Patient will tolerate therapeutic trials of Consistencies Trialed (Tolerate therapeutic trials) soft to chew (chopped) textures;nectar/ mildly thick liquids -RS Desired Outcome (Tolerate therapeutic trials) without signs/symptoms of aspiration;without signs ofdistress;with adequate oral prep/transit/clearance -RS [place] (Tolerate therapeutic trials) with minimal cues (75-90% accuracy) -RS Time Frame (Tolerate therapeutic trials) 1 week -RS Progress/Outcomes (Tolerate therapeutic trials) new goal -RS (STG) Lingual Strengthening Goal 1 (HELICOPTER OFFICER) Activity (Lingual Strengthening Goal 1, HELICOPTER OFFICER) increase tongue back strength -RS Increase Tongue Back Strength lingual resistance exercises -RS [place]/Accuracy (Lingual Strengthening Goal 1, HELICOPTER OFFICER) with minimal cues (75- 90% accuracy) -RS Time Frame (Lingual Strengthening Goal 1, HELICOPTER OFFICER) 1 week -RS Progress/Outcomes (Lingual Strengthening Goal 1, HELICOPTER OFFICER) new goal -RS (STG) Pharyngeal Strengthening Exercise Goal 1 (HELICOPTER OFFICER) Activity (Pharyngeal Strengthening Goal 1, HELICOPTER OFFICER) increase timing;increase superior movement of the hyolaryngeal [...] -RS Increase Tongue Base Retraction mike -RS [place]/Accuracy (Pharyngeal Strengthening Goal 1, HELICOPTER OFFICER) with minimal cues (75-90% accuracy) -RS Time Frame (Pharyngeal Strengthening Goal 1, HELICOPTER OFFICER) 1 week -RS Progress/Outcomes (Pharyngeal Strengthening Goal 1, HELICOPTER OFFICER) new goal -RS User Jung (r) = Recorded By, (t) = Taken By, (c) = Cosigned By Initials Name Provider Type Andrea Mitchell MS CCC-HELICOPTER OFFICER Speech and Language Pathologist Time Calculation: Time Calculation- HELICOPTER OFFICER Row Name 08/31/25 0953 Time Calculation- HELICOPTER OFFICER HELICOPTER OFFICER Start Time 0815 -RS HELICOPTER OFFICER Received On 08/31/25 -RS Untimed Charges 07902-SG Fiberoptic Endo Eval Swallow Minutes 105 -RS Total Minutes Untimed Charges Total Minutes 105 -RS Total Minutes 105 -RS User Jung (r) = Recorded By, (t) = Taken By, (c) = Cosigned By Initials Name Provider Type Andrea Mitchell MS CCC-HELICOPTER OFFICER Speech and Language Pathologist Therapy Charges for Today Code Description Service Date Service Provider Modifiers Qty [id number] HC ST FIBEROPTIC ENDO EVAL ELIZABETHALL 7 08/31/2025 Andrea Dukes, CCC- HELICOPTER OFFICER GN 1 Andrea Dukes MS CCC-HELICOPTER OFFICER 08/31/2025 0954 * Félix Azul RN - 08/31/2025 8:27 AM EST Images from the original note were not included. Loc Thurman (84 y.o. Male) Cayetano Azul RNpersonal attendant [phone] Date of 1940 Social Security Number [id number] [place] [address] [employer] Marital Status Admission Date 08/27/2025 Admission Type Urgent Admitting Provider Linda Rubin MD Attending Provider Cristian Mckee DO Department, Room/Bed [address], S254/1 Discharge Date Discharge Disposition Discharge Destination [...] Payor Plan Fax Number Effective Dates [phone] 11/20/2003 - None Entered [facility] [address] Subscriber Name Subscriber Date Member ID LOC THURMAN 1940 [id number] Secondary Coverage Payor Plan Insurance Group Employer/Plan Group [place] [employer] [place] [employer] [place] Payor Plan Address Payor Plan Phone Number Payor Plan Fax Number Effective Dates [address] [employer] [place] [phone] 10/20/2015 - None Entered [facility] [address] Subscriber Name Subscriber Date Member ID LOC THURMAN 1940 [id number] Emergency Contacts Tube Rebuilder (Rel.) Home Phone Work Phone Mobile Phone Sarabjit Thurman (Son) -- -- [phone] Alexandru Thurman (Grandchild) -- -- [phone] History & Physical Linda Rubin MD at 08/27/25 2340 PARKING PATROLLER PROGRESS NOTE SUBJECTIVE Loc 84 y.o. male is followed for:No chief complaint on file. Pancreatitis Vasovagal syncope HTN (hypertension) Mixed hyperlipidemia COPD (chronic obstructive pulmonary disease) Former tobacco use History of prostate cancer BPH with obstruction/lower urinary tract symptoms As an Final Block Press Operator, we provide an integrated approach to the [...] mass [facility]27[facility]2025 because of evaluation of possible pancreatitis and cholecystitis. Patient underwent bronchoscopy yesterday for lung nodules/mass. Did have scant hemoptysis mixed in with saliva yesterday evening postprocedure. Has not had any olga hemoptysis orno further episodes. Today he woke up with upper abdominal pain after eating breakfast as well as nausea and vomiting. Went to [facility] and during transport her head syncopal episode [...] social history were reviewed and updated in [facility] as appropriate. Review of Systems As described [...] (08/27/252058) Best Verbal Response: 5-->(V5) oriented (08/27/252058) Eugene Coma Scale Score: 15 (08/27/252058) Lines, Drains [...] from last 7 days Lab Units 08/27/25 194 CALCIUM mg/dL 8.1* Hepatic Panel: Results from [...] MD 08/27/2025 10:25 PM EST Workstation ID: [id number] Echo: Results: Reviewed. I reviewed the patient's [...] Linda Rubin MD Pulmonary Critical Care Medicine Librado Bangura MD at 08/27/25 191 [facility] HISTORY AND PHYSICAL Patient Name: Loc Thurman : 1940 Primary Care Physician: Provider, No Known Date of admission: 08/27/2025 Subjective Subjective Chief Complaint: Abdominal pain with nausea and vomiting HPI: Loc Thurman is a 84 y.o. male with significant medical history for COPD, HTN, HLD, high-grade prostate cancer s/p initiation of external beam radiation and hormonal therapy (2015), and tobacco use who [facility] transfer from [facility] for evaluation of pancreatitis and distended gallbladder. History of Present Illness Reason for Admit: Abdominal pain with nausea vomiting The patient presents [facility] via transfer from [facility] for evaluation of abdominal pain with nausea and vomiting. He reports experiencing abdominal pain and chest discomfort, which began this morning after consuming a bowl of cereal for breakfast. The pain, described as a constant ache across his lower chest andupper abdomen, initially peaked at a severity of 10/10. [facility], morphine was administered, but it was ineffective [...] and sees Dr. Brooks for cardiology in [place]. Review of Systems Constitutional: Positive for activity [...] (2014), and tobacco use who presents [facility] via transfer from [facility] for evaluation of pancreatitis and distended gallbladder. Patient/family describe syncopal episode in ambulance in route from [facility] this afternoon subjective SBP in the 80s. 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 Attending Admission Attestation I have performed an independent yjcc-bd-hfth diagnostic evaluation including performing an independent physical examination. I approve of the documented plan of care above that was reviewed and developed with the advanced practice lead (APC) and take responsibility for that plan along with itsassociated risks. I have updated the HPI as appropriate. Brief HPI Loc Thurman is a 84 y.o. 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 [...] Bangura MD 08/27/25 Contains text generated by [employer] 1894 Vital Signs (last day) Date/Time Temp Temp [...] PRN Marcos Cyr PharmD Or acetaminophen (TYLENOL) 160 MG/5ML oral solution [...] 0.5 mg Nebulization BID - RT Cristian Mckee DO 0.5 mg at 08/31/25 0800 Calcium [...] 5,000 Units 5,000 Units Subcutaneous Q8H Cristian Mckee DO 5,000 Units at 08/31/25 0555 hydrALAZINE (APRESOLINE) injection 10 mg 10 mg Intravenous Q6H PRN Alma Rosa Lucas R, TECHNICAL PROJECT COORDINATOR 10 mg at110/31/24 0243 HYDROmorphone (DILAUDID) injection 0.5 mg 0.5 mg Intravenous Q2H PRN Hermes Jaramillo MD 0.5 mg at110/30/24 2109 hydrOXYzine (ATARAX) tablet 25 mg 25 mg Oral TID PRN Alma Rosa Lucas TECHNICAL PROJECT COORDINATOR 25 mg at 08/29/25 2353 ipratropium-albuterol (DUO-NEB) [...] mg 40 mg Intravenous Q AM Gillian Dias, DucD 40 mg at 08/31/25 0555 phenylephrine (KAYLYNN-SYNEPHRINE) 50 mg in sodium chloride 0.9 % 250 mL infusion 0.5-3 mcg/kg/min Intravenous Titrated Hermes Jaramillo MD Stopped at 08/29/25 1610 Phosphorus Replacement - Follow Nurse / BPA Driven Protocol Not Applicable PRHermes Valencia MD piperacillin-tazobactam (ZOSYN) 4.5 g IVPB in 100 mL NS MBP (CD) 4.5 g Intravenous Q8H Marcos Cyr PharmD 4.5 g at 08/31/25 0818 potassium chloride (KLOR-CON) packet 40 mEq 40 mEq Oral Q4H Brian Hughes MD 40 mEq at 08/31/25 0509 Potassium Replacement - Follow Nurse / BPA Driven Protocol Not Applicable PRHermes Valencia MD sodium chloride 0.9 % flush 10 [...] Name: Loc Thurman Date of : 1940 [id number] 08/28/2025 PREOPERATIVE DIAGNOSIS: Acute cholecystitis with sepsis POSTOPERATIVE DIAGNOSIS: Same PROCEDURE PERFORMED: Laparoscopic cholecystectomy with intraoperative cholangiography SURGEON: Hermes Jaramillo MD GIS ENGINEER: Annie Jorgensen PA-C. Annie Jorgensen PA-C was [...] of 0 Vicryl was then placed in rokzyu-zc-dkeqy fashion around the defect, and a blunt [...] None Hermes Jaramillo MD 08/28/2025 09:22 EST 0926 Physician Progress Notes (last 24 hours) Hermes Jaramillo MD at 08/31/25 0724 Patient Name: Loc Thurman Date of : 1940 [id number] Surgery Progress Note Date of visit: 08/31/2025 [...] display. Hermes Jaramillo MD 08/31/2025 07:24 EST 0794 Brian Hughes MD at 08/30/25 1208 Pulmonary/Critical [...] HISTORY Tobacco: Former smoker History taken from: [facility]//Social History were reviewed and updated appropriately in [...] H2O): [6 cm H20] 6 cm H20 AL SUP: [10 cm H20] 10 cm H20 [...] Results from last 7 days Lab Units 08/30/2540208/29/25 0608/28/25 0955 08/28/25 0843 08/28/25 0613 WBC 10*3/mm3 [...] a lung nodule by Dr. Castillo in [place], [place] on 08/26/2025. Subsequently, he was seen at [facility] for acute abdominal pain and sepsis and was transferred [facility] for further evaluation. He was diagnosed with [...] MD 08/30/25 12:08 EST Patient or patient office machines sales representative verbalized consent for the use of Ambient Listening during the visit for chart documentation. *Exception: for ICU patients or for instances where consent for use was not given, active listeningwas used only for dictation and was not used to record patient or family. [id number] Hermes Jaramillo MD at 08/30/25 1395 Patient Name: Loc Thurman Date of : 1940 [id number] Surgery Progress Note Date of visit: 08/30/2025 [...] INTRAOPERATIVE CHOLANGIOGRAM; Surgeon: Hermes Jaramillo MD; Location: [facility]; Service: General; Laterality: N/A; COLONOSCOPY HERNIA REPAIR General Information Row Name 08/30/25 1333 Physical Therapy Time and Intention Document Type evaluation -KG Mode of Treatment physical therapy -KG Row Name 08/30/25 1333 General Information Patient Profile Reviewed yes -KG [...] PT Physical Therapist Mobility Row Name 08/30/25 1334 Bed Mobility Bed Mobility supine-sit -KG Supine-Sit [place] (Bed Mobility) moderate assist (50% patient effort);2 [...] -KG Row Name 08/30/251333 Bed-Chair Transfer Bed-Chair [place] (Transfers) maximum assist (25% patient effort);2 person assist;verbal cues -KG Assistive Device (Bed-Chair Transfers) other (see comments) B UE support -KG Row Name 08/30/251333 Sit-Stand Transfer Sit-Stand [place] (Transfers) moderate assist (50% patient effort);2 person assist;verbal cues-KG Assistive Device (Sit-Stand Transfers) other (see comments) B UE support -KG Row Name 08/30/251333 Gait/Stairs (Locomotion) [place] Level (Gait) moderate assist (50% patient effort);2 [...] Provider Type Flora Finley, PT Physical Therapist Obj/Interventions Row Name 08/30/251336 Range of Motion Comprehensive General Range of Motion no range of motion deficits identified -KG Comment, General Range of Motion B LE WFL -KG Row Name 08/30/251336 Strength Comprehensive (MMT) Comment, General Manual Muscle Testing (MMT) Assessment B LE grossly 3+/5 -KG Row Name 08/30/251336 Balance Balance Assessment sitting static balance;standing static balance;standing dynamic balance -KG Static Sitting Balance minimal assist -KG Position, Sitting Balance supported;sitting edge of bed -KG Static Standing Balance moderate assist;2-person assist -KG Dynamic Standing Balance maximum assist;2-person assist -KG Position/Device Used, Standing Balance supported -KG Row Name 08/30/251336 Sensory Assessment (Somatosensory) Sensory Assessment (Somatosensory) LE sensation intact -KG User Jung (r) = Recorded By, (t) = Taken By, (c) = Cosigned By Initials Name Provider Type KG Flora Galvan, PT Physical Therapist Goals/Plan Row Name 08/30/251338 Bed Mobility Goal 1 (PT) Activity/Assistive Device (Bed Mobility Goal 1, PT) sit to supine;supine to sit -KG [place] Level/Cues Needed (Bed Mobility Goal 1, PT) minimum assist (75% or more patient effort) -KG Time Frame (Bed Mobility Goal 1, PT) short term goal (STG);5 days -KG Progress/Outcomes (Bed Mobility Goal 1, PT) goal ongoing -KG Row Name 08/30/251338 Transfer Goal 1 (PT) Activity/Assistive Device (Transfer Goal 1, PT) foz-eo-jbzsw/dwnpf-ai-wfq;bxn-hs-yvmeu/belfw-vy-fih;walker, rolling -KG [place] Level/Cues Needed (Transfer Goal 1, PT) minimum assist (75% or more patient effort) -KG Time Frame (Transfer Goal 1, PT) land checker goal (LTG);10 days -KG Progress/Outcome (Transfer Goal 1, PT) goal ongoing -KG Row Name 08/30/252 Gait Training Goal 1 (PT) Activity/Assistive Device (Gait Training Goal 1, PT) gait (walking locomotion);assistive device use;walker, rolling -KG [place] Level (Gait Training Goal 1, PT) moderate assist (50-74% patient effort) -KG Distance (Gait Training Goal 1, PT) 50 feet -KG Time Frame (Gait Training Goal 1, PT) retirement goal (LTG);10 days -KG Progress/Outcome (Gait Training Goal 1, PT) goal ongoing -KG Row Name 08/30/258 Therapy Assessment/Plan (PT) Planned Therapy Interventions (PT) balance training;bed mobility training;gait training;strengthening;transfer training -KG User Jung (r) = Recorded By, (t) = Taken By, (c) = Cosigned By Initials Name Provider Type KG Flora Galvan, PT Physical Therapist Clinical Impression Row Name 08/30/25 1336 Pain Additional Documentation Pain Scale: FACES Pre/Post-Treatment (Group) -KG Row Name 08/30/25 8470 Pain Scale: FACES Pre/Post-Treatment Pain: FACES Scale, Pretreatment 4-->hurts little more -KG Posttreatment Pain Rating 6-->hurts even more -KG Row Name 08/30/25 1335 Plan of Care Review Plan of Care Reviewed With patient -KG Outcome Evaluation PT initial evaluation completed for pt s/p cholecystectomy presenting with generalized weakness, increased SOA, impaired balance and coordination, c/o incisional pain, and decreased functional mobility. Pt required modA x2 for STS transfers and modA x2- maxA x2 to take steps frombed to chair and BSC. Pt's decreased independence warrants supervisor seaming care. Recommend D/C to IP rehab facility. -KG Row Name 08/30/25 1943 Therapy Assessment/Plan (PT) Patient/Family Therapy Goals Statement [...] Patient Position Sitting -KG Row Name 08/30/25 8830 Positioning and Restraints Pre-Treatment Position in bed [...] Therapist Physical Therapy Education Title: PT OT HELICOPTER OFFICER Therapies (In Progress) Topic: Physical Therapy (In Progress) Point: Mobility training (In Progress) Learning Progress Summary Patient Acceptance, E, NR by KG at 08/30/2025 09 Point: Home exercise program (Not Started) Learner Progress: Not documented in this visit. Point: Body mechanics (In Progress) Learning Progress Summary Patient Acceptance, E, NR by KG at 08/30/2025 09 Point: Precautions (In Progress) Learning Progress Summary Patient Acceptance, E, NR by KG at 08/30/2025 09 User Jung Initials Effective Dates Name Provider Type [facility] 03/10/20 - Flora Galvan PT Physical Therapist PT PT Recommendation and [...] chair and BSC. Pt's decreased independence warrants supervisor seaming care. Recommend D/C to IP rehab facility. [...] Description Service Date Service Provider Modifiers Qty [id number] PT EVAL MOD COMPLEXITY 4 08/30/2025 Flora Galvan, PT GP 1 PT G-Codes Outcome Measure Options: AM-PAC 6 Clicks Basic Mobility (PT) AM-PAC 6 Clicks Score (PT): 11 AM-PAC 6 Clicks Score (OT): 12 PT Discharge Summary Anticipated Discharge Disposition (PT): inpatient rehabilitation facility Eleln Galvan PT 08/30/2025 1341 Occupational Therapy Notes [...] INTRAOPERATIVE CHOLANGIOGRAM; Surgeon: Hermes Jaramillo MD; Location: [facility]; Service: General; Laterality: N/A; COLONOSCOPY HERNIA REPAIR [...] Bed Mobility Bed Mobility supine-sit - Supine-Sit [place] (Bed Mobility) moderate assist (50% patient effort);2 [...] mod Ax2 for STS & SPT from gko-uh-[id number] but req max Ax2 for SPT from ywxjx-ev-Y[facility]. - Row Name 08/30/25 1141 Bed-Chair Transfer Bed-Chair [place] (Transfers) moderate assist (50% patient effort);2 person assist;verbal cues- Assistive Device (Bed-Chair Transfers) other (see comments) BUE support - Row Name 08/30/25 1141 Sit-Stand Transfer Sit-Stand [place] (Transfers) moderate assist (50% patient effort);2 person assist;verbal cues- Assistive Device (Sit-Stand Transfers) other (see comments) - Row Name 08/30/25 1141 Stand-Sit Transfer Stand-Sit [place] (Transfers) moderate assist (50% patient effort);2 person assist;verbal cues- Assistive Device (Stand-Sit Transfers) other (see comments) - Row Name 08/30/25 1141 Toilet Transfer Type (Toilet Transfer) sit-stand;stand-sit;stand pivot/stand step - [place] Level (Toilet Transfer) maximum assist (25% patient effort);2 person assist;verbal cues - Assistive Device (Toilet Transfer) commode, bedside without drop arms - Row Name 08/30/25 1141 Activities of Daily Living BADL Assessment/Intervention lower body dressing;upper body dressing -MC Row Name 08/30/25 1141 Lower Body Dressing Assessment/Training [place] Level (Lower Body Dressing) don;socks;dependent (less than 25% patient effort) - Position (Lower Body Dressing) supine -[facility] Name 08/30/25 1141 Upper Body Dressing Assessment/Training [place] Level (Upper Body Dressing) don;pajama/robe;maximum assist (25% patient effort) - Position (Upper Body Dressing) edge of bed sitting - User Jung (r) = Recorded By, (t) = Taken By, (c) = Cosigned By Initials Name Provider Type Aury Fitzgerald OT Occupational Therapist Obj/Interventions [facility] Name 08/30/25 1145 Sensory Assessment (Somatosensory) Sensory Assessment (Somatosensory) UE sensation intact -[facility] 08/30/25 1145 Vision Assessment/Intervention Visual Impairment/Limitations WFL -[facility] Name 08/30/25 1145 Range of Motion Comprehensive General Range of Motion bilateral upper extremity ROM WFL -[facility] 08/30/25 1145 Strength Comprehensive (MMT) General Manual Muscle Testing (MMT) Assessment upper extremity strength deficits identified - Comment, General Manual Muscle Testing (MMT) Assessment BUE grossly 4-/5 -[facility] Name 08/30/25 1145 Balance Balance Assessment sitting static [...] Type Aury Fitzgerald OT Occupational Therapist Goals/Plan [facility] Name 08/30/25 1147 Transfer Goal 1 (OT) Activity/Assistive Device (Transfer Goal 1, OT) jdq-mr-opbff/awneh-lw-hwk;toilet;walker, rolling - [place] Level/Cues Needed (Transfer Goal 1, OT) standby assist -MC Time Frame (Transfer Goal 1, OT) retirement goal (LTG);10 days -MC Progress/Outcome (Transfer Goal 1, OT) goal ongoing - Row Name 08/30/25 1147 Toileting Goal 1 (OT) Activity/Device (Toileting Goal 1, OT) adjust/manage clothing;perform perineal hygiene;commode;grabbar/safety frame - [place] Level/Cues Needed (Toileting Goal 1, OT) standby assist -MC Time Frame (Toileting Goal 1, OT) short term goal (STG);5 days -MC Progress/Outcome (Toileting Goal 1, OT) goal ongoing - Row Name 08/30/25 1146 Grooming Goal 1 (OT) Activity/Device (Grooming Goal 1, OT) hair care;oral care;wash face, hands - [place] (Grooming Goal 1, OT) standby assist -MC Time Frame (Grooming Goal 1, OT) retirement goal (LTG);10 days -MC Progress/Outcome (Grooming Goal 1, OT) goal ongoing -[facility] Name 08/30/25 1141 Therapy Assessment/Plan (OT) Planned Therapy Interventions (OT) activity tolerance training;adaptive equipment training;BADL retraining;functional balance retraining;IADL retraining;occupation/activity based interventions;patient/caregiver education/training;ROM/therapeutic exercise;strengthening exercise;transfer/mobility retraining - User Jung (r) = Recorded By, (t) = Taken By, (c) = Cosigned By Initials Name Provider Type Aury Fitzgerald, ARY Occupational Therapist Clinical Impression [facility] Name 08/30/25 4141 Pain Assessment Pain Location abdomen - Pain Side/Orientation generalized - Pain Management Interventions exercise or physical activity utilized;positioning techniques utilized - Response to Pain Interventions activity participation with tolerable pain - Additional Documentation Pain Scale: FACES Pre/Post-Treatment (Group) - Row Name 08/30/25 7097 Pain Scale: FACES Pre/Post-Treatment Pain: FACES Scale, Pretreatment 4-->hurts little more - Posttreatment Pain Rating 4-->hurts little more - Row Name 08/30/25 114 Plan of Care Review Plan of Care Reviewed With patient;son - Outcome Evaluation Pt's ADL independence limited d/t generalized weakness, decrease functional endurance, balance deficits, and pain. Pt would benefit from continued skilled IPOT services to address current functional deficits. Rec IRF at d/c. - Row Name 08/30/25 1145 Therapy Assessment/Plan (OT) Patient/Family Therapy Goal Statement (OT) Return to PLOF - Rehab Potential (OT) good - Criteria for Skilled Therapeutic Interventions Met (OT) yes;skilled treatment is necessary - Therapy Frequency (OT) daily - Predicted Duration of Therapy Intervention (OT) 10 days - Row Name 08/30/25 1145 Therapy Plan Review/Discharge Plan (OT) Anticipated Discharge [...] Position Standing - Post Patient Position Sitting -[facility] Name 08/30/25 1145 Positioning and Restraints Pre-Treatment Position in bed - Post Treatment Position bsc - On BS commode notified nsg;sitting;call light within reach;encouraged to call for assist;with family/caregiver - User Jung (r) = Recorded By, (t) = Taken By, (c) = Cosigned By Initials Name Provider Type Aury Gallegos, ARY Occupational Therapist Outcome Measures Row Name 08/30/25 1147 How much help from another is currently needed... Putting on and taking off regular lower body clothing? 1 - Bathing (including washing, rinsing, and drying) 2 [...] Therapist Occupational Therapy Education Title: PT OT HELICOPTER OFFICER Therapies (In Progress) Topic: Occupational Therapy (In [...] Description Service Date Service Provider Modifiers Qty [id number] HC OT EVAL MOD COMPLEXITY 4 08/30/2025 Aury Fitzgerald OT GO 1 Aury Fitzgerald OT 08/30/2025 1148 Speech Language Pathology Notes (most recent note) No notes exist for this encounter. documented in this encounter Discharge Instructions * Attachments The following attachments cannot be sent through Care Everywhere. * Acute Pancreatitis (Albanian) documented in this encounter Medications at Time [...] 2 sprays 2 (Two) Times a Day. montelukast (SINGULAIR) 10 MG tablet Take 1 tablet by mouth Every Night. omeprazole (priLOSEC) 20 MG capsule Take 1 capsule by mouth Daily. vitamin B-12 (CYANOCOBALAMIN) 1000 MCG tablet Take 1 tablet by mouth Daily. vitamin C (ASCORBIC ACID) 250 MG tablet Take 1 tablet by mouth Daily. lisinopril (PRINIVIL,ZESTRIL ) 40 MG tablet Take 1 tablet by mouth Daily. 30 tablet 09/06/2025 10/05/2025 documented as of this encounter Progress Notes * Qiana Mcnair RD - 09/05/2025 12:27 PM EST Patient Name: Loc Thurman Date of : 1940 Admission date: 08/27/2025 Reason for Encounter: Follow-up/Progress Note [facility] Clinical Nutrition Assessment Subjective Subjective Information 09/05 HELICOPTER OFFICER re-evaluated pt today and advanced modified to [...] INTRAOPERATIVE CHOLANGIOGRAM; Surgeon: Hermes Jaramillo MD; Location: [facility]; Service: General; Laterality: N/A; COLONOSCOPY HERNIA REPAIR [...] Driven Protocol sodium chloride Physical Findings Chewing/Swallowing HELICOPTER OFFICER following and Dysphagia Dentition Mouth/Teeth WDL: .WDL except, teeth Teeth Symptoms: tooth/teeth missing Skin surgical incision Bowel function Last Bowel Movement: 09/03/25 (09/05/25801) Stool Consistency: watery (09/02/25 0500) Edema Edema: foot, left, foot, right (09/05/25801) Generalized Edema: 2+ (Mild) (09/05/25 08) Scrotum Edema: 2+ (Mild) (09/05/25 08) Ankle, Left Edema: 2+ (Mild) (09/05/25801) Ankle, Right Edema: 2+ (Mild) (09/05/25801) Foot, Left Edema: 2+ (Mild) (09/05/25801) Foot, Right Edema: 2+ (Mild) (09/05/25 08) Intake & Output (last 3 days) 09/02 0701 09/03 0709/03 0709/04 0709/04 0709/05 0709/05 0701 09/06 0700 P.O. 240 240 840 [...] Name: Loc Thurman Date of : 1940 [id number] Surgery Progress Note Date of visit: 09/05/2025 [...] Intake/Output Summary (Last 24 hours) at 09/05/2025 0677 Last data filed at 09/05/2025 0015 Gross [...] placement. OK to go to rehab from [facility]. RTC with me in 4 weeks. Relevant [...] from the original note were not included. [facility] PROGRESS NOTE Patient Name: Loc [...] the biopsy showed. Procedure was done at [facility], will try and get records Friday. Discussed [...] from the original note were not included. [facility] PROGRESS NOTE Patient Name: Loc [...] Lab 09/03/25 0343 09/02/25 0543 09/01/25 1705 09/01/2540008/31/25 0338 08/30/25 040 SODIUM 149* 148* -- 148* 151* 148* [...] 0401 08/31/25 0338 08/30/25 0403 08/28/25 0955 08/28/2561208/27/251942 TOTAL PROTEIN 5.5* 5.0* 5.1* 5.0* 5.2* [...] -- 80* 576* Lab 09/02/25 1436 08/28/25 0613 08/27/25223308/27/25 1943 PROBNP 9,267.0* -- -- -- HSTROP T -- -- 34* 39* PROTIME -- 18.2* -- -- INR -- 1.41* -- -- Lab 08/28/25 0638 08/28/25 0613 08/27/25 1943 IRON -- -- 86 IRON SATURATION (TSAT) [...] MD 09/02/2025 12:12 PM EST Workstation ID: [id number] XR Chest 1 View Result Date: 09/02/2025 [...] MD 09/02/2025 12:03 PM EST Workstation ID: [id number] Results for orders placed during the hospital [...] - Pt on a modified diet per HELICOPTER OFFICER - Will continue close monitoring Hypophosphatemia - [...] the biopsy showed. Procedure was done at [facility], will try and get records. Discussed that [...] AM-PAC 6 Clicks Score (PT): 18 (09/03/25 1241) CODE STATUS: Code Status and Medical Interventions: [...] from the original note were not included. [facility] PROGRESS NOTE Patient Name: Loc Thurman : 1940 Date of Admission: 08/27/2025 Primary Care Physician: Lisa Arreola APRN Subjective Subjective CC: Abd pain HPI: Pt sitting up in bed, having more shortness of breath. Spoke with HELICOPTER OFFICER and patient's swallow study was worse than previous. Diet recommendations reviewed with patient and family. 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 ECHO dating 02/21/2023 done at [facility] showed EF 55-60% without diastolic [...] not displayed. Lab 09/02/25 0543 09/01/25 1705 09/01/2540008/31/258 08/30/2540208/29/25 0607 SODIUM 148* -- 148* 151* 148* [...] 08/31/25 0338 08/30/25 0403 08/28/25 0955 08/28/25 0608/27/251942 TOTAL PROTEIN 5.5* 5.0* 5.1* 5.0* 5.2* [...] 110* 137* -- 80* 576* Lab 08/28/25 0608/27/25223308/27/251942 HSTROP T -- 34* 39* PROTIME 18.2* [...] this interval not displayed. Lab 08/29/25 17108/29/25 0351 08/28/252003 PH, ARTERIAL 7.490* 7.407 7.408 [...] MD 09/02/2025 12:12 PM EST Workstation ID: [id number] XR Chest 1 View Result Date: 09/02/2025 [...] MD 09/02/2025 12:03 PM EST Workstation ID: [id number] I have personally reviewed the therapy plans: [...] Last ECHO found was 02/21/2023 done at [facility] showed EF 55-60% without diastolic [...] - Pt on a modified diet per HELICOPTER OFFICER - Will monitor for now with a.m. [...] AM-PAC 6 Clicks Score (PT): 15 (09/02/25 7599) CODE STATUS: Code Status and Medical Interventions: [...] date: 08/27/2025 Reason for Encounter: Follow-up/Progress Note [facility] Clinical Nutrition Assessment Subjective Subjective Information 09/02 [...] INTRAOPERATIVE CHOLANGIOGRAM; Surgeon: Hermes Jaramillo MD; Location: [facility]; Service: General; Laterality: N/A; COLONOSCOPY HERNIA REPAIR [...] (67.99 ) Weight: 96.2 kg (212 lb) (09/02/25444) Weight Method: Bed scale BMI (Calculated): 32.2 Trending Weight Changes 08/30/25: No significant changes Weight History Wt Readings from Last 10 Encounters: 09/02/25 0445 96.2 kg (212 lb) 09/01/25 0516 95.4 kg (210 lb 4.8 oz) 08/31/25 0600 94.2 kg (207 lb 10.8 oz) 08/27/25 2100 93.4 kg (206 lb) Labs Results from last 7 days Lab Units 09/02/25 0543 09/01/25 1705 09/01/25 0401 08/31/25 0338 08/30/25 0403 08/29/25 1618 08/29/25 1316 08/29/25 0942 SODIUM mmol/L [...] last 7 days Lab Units 09/02/25 0543 08/31/25 0338 08/30/25 0403 08/28/25 0613 08/27/25 1943 PLATELETS 10*3/mm3 94* 102* [...] Driven Protocol sodium chloride Physical Findings Chewing/Swallowing HELICOPTER OFFICER following Dentition Mouth/Teeth WDL: .WDL except, teeth [...] Output (last 3 days) 08/30 0708/31 0708/31 0701 09/01 0709/01 0701 09/02 0709/02 0709/03 0700 P.O. 300 I.V. (mL/kg) 95.5 (1) 334.3 [...] Name: Loc Thurman Date of : 1940 [id number] Surgery Progress Note Date of visit: 09/02/2025 [...] from the original note were not included. [facility] PROGRESS NOTE Patient Name: Loc [...] values in this interval not displayed. Lab 09/01/2540008/31/25 0338 08/30/2540208/29/2560608/28/25 0955 08/28/2513 08/28/25 0135 SODIUM 148* 151* 148* 146* [...] in this interval not displayed. Lab 09/01/25 04008/31/25 0338 08/30/25 0403 08/28/25 0955 08/28/2561208/27/251942 TOTAL PROTEIN 5.0* 5.1* [...] 110* 137* -- 80* 576* Lab 08/28/25 0608/27/25223308/27/251942 HSTROP T -- 34* 39* PROTIME 18.2* -- -- INR 1.41* -- -- Lab 08/28/25 0638 08/28/25 0613 08/27/25 1943 IRON -- -- 86 IRON SATURATION (TSAT) [...] Lab Results None Microbiology Results Abnormal None HELICOPTER OFFICER FEES - Fiberoptic Endo Eval Swallow Result [...] Name: Loc Thurman Date of : 1940 [id number] Surgery Progress Note Date of visit: 09/01/2025 [...] HISTORY Tobacco: Former smoker History taken from: [facility]//Social History were reviewed and updated appropriately in [...] last 7 days Lab Units 08/31/25 0338 08/30/2540208/29/25 0608/28/25 0955 SODIUM mmol/L 151* 148* 146* 145 [...] Results from last 7 days Lab Units 08/31/258 08/30/2540208/29/25 0607 08/28/25 0955 08/28/25 0843 08/28/25 0613 [...] Units 08/31/25 0338 08/30/25 0403 08/29/25 0607 MAGNESIUM mg/dL 2.6* 2.7* [...] a lung nodule by Dr. Castillo in [place], [place] on 08/26/2025. Subsequently, he was seen at [facility] for acute abdominal pain and sepsis and was [facility]. He was diagnosed with [...] MD 08/31/25 17:48 EST Patient or patient office machines sales representative verbalized consent for the use of Ambient Listening during the visit for chart documentation. *Exception: for ICU patients or for instances where consent for use was not given, active listeningwas used only for dictation and was not used to record patient or family. * Aaliyah Peralta, ,RD,LD - 08/31/2025 1:05 PM EST Patient Name: Loc Thurman Date of : 1940 Admission date: 08/27/2025 Reason for Encounter: Follow-up/Progress Note [facility] Clinical Nutrition Assessment Subjective Subjective Information 08/31 [...] INTRAOPERATIVE CHOLANGIOGRAM; Surgeon: Hermes Jaramillo MD; Location: [facility]; Service: General; Laterality: N/A; COLONOSCOPY HERNIA REPAIR [...] Results from last 7 days Lab Units 08/31/2533708/30/2540208/29/25 1618 08/29/25 1316 08/29/25 0942 08/29/25 0607 [...] Results from last 7 days Lab Units 08/31/2533708/30/2540208/29/25 0607 08/28/25 0613 08/27/25 1943 PLATELETS 10*3/mm3 [...] Driven Protocol sodium chloride Physical Findings Chewing/Swallowing HELICOPTER OFFICER following Dentition Mouth/Teeth WDL: .WDL except Teeth [...] Output (last 3 days) 08/28 0708/29 0708/29 0708/31 0709/01 0700 I.V. (mL/kg) 4376.7 (46.9) 267.4 (2.9) 95.5 (1) 234 (2.5) Other 177 100 NG/GT 70 342 195 IV Piggyback 600 152.2 294.1 80.5 Total Intake(mL/kg) 4976.7 (53.3) 489.6 (5.2) 908.6 (9.6) 609.5 (6.5) Urine (mL/kg/hr) 1230 (0.5) 1745 (0.8) 1885 (0.8) 315 (0.6) Emesis/NG output 350 210 Drains 105 50 40 Stool 0 Total Output 1685 2004 1925 315 Net +3291.7 -1515.4 -1016.4 +294.5 Stool Unmeasured Occurrence 1 x Nutrition Focused Physical Exam 08/30/25: NFPE not completed r/t pt unable to consent at this time Estimated Needs Date Assessed 08/30 Weight(s) Used 93.4 kg CBW 70.34 kg IBW Energy Requirements Method for Estimation 17-20kcal/kg CBW = 1588 - 1868 25-30 kcals/kg IBW = 5023-2375 MSJ (1586) x 1.1 = 1745 Daily [...] Na+); Texture: Pureed (NDD 1); Fluid Consistency: [place] Thick Oral Nutrition Supplement None Trending % [...] days and prn Electronically signed by: Aaliyah Peralta, MS,RD,LD 08/31/25 13:05 EST * Hermes Jaramillo MD - 08/31/2025 7:24 AM EST Patient Name: Loc Thurman Date of : 1940 [id number] Surgery Progress Note Date of visit: 08/31/2025 [...] HISTORY Tobacco: Former smoker History taken from: [facility]//Social History were reviewed and updated appropriately in [...] H2O): [6 cm H20] 6 cm H20 AL SUP: [10 cm H20] 10 cm H20 [...] 7 days Lab Units 08/30/25 0403 08/29/25 0608/28/25 0908/28/25 0613 SODIUM mmol/L 148* 146* 145 147* [...] Results from last 7 days Lab Units 08/30/2540208/29/2560608/28/2595408/28/25 0843 08/28/25 0613 WBC 10*3/mm3 12.35* 15.08* [...] from last 7 days Lab Units 08/30/25 04008/29/25 0608/28/25 0135 MAGNESIUM mg/dL 2.7* 2.3 1.8 PHOSPHORUS [...] a lung nodule by Dr. Castillo in [place], [place] on 08/26/2025. Subsequently, he was seen at [facility] for acute abdominal pain and sepsis and was transferred [facility] for further evaluation. He was diagnosed with [...] MD 08/30/25 12:08 EST Patient or patient office machines sales representative verbalized consent for the use of Ambient Listening during the visit for chart documentation. *Exception: for ICU patients or for instances where consent for use was not given, active listeningwas used only for dictation and was not used to record patient or family. * Aaliyah Peralta MS,RD,LD - 08/30/2025 11:31 AM EST Patient Name: Loc Thurman Date of : 1940 Admission date: 08/27/2025 Reason for Encounter: NPO/CLD x 3 days+ [facility] Clinical Nutrition Assessment Subjective Subjective Information Pt [...] INTRAOPERATIVE CHOLANGIOGRAM; Surgeon: Hermes Jaramillo MD; Location: [facility]; Service: General; Laterality: N/A; COLONOSCOPY HERNIA REPAIR Current Problems Admission Diagnosis: Pancreatitis [K85.90] Pancreatitis, acute [K85.90] Problem List: Acute pancreatitis Vasovagal syncope HTN (hypertension) Mixed hyperlipidemia COPD (chronic obstructive pulmonary disease) Former tobacco use History of prostate cancer BPH with obstruction/lower urinary tract symptoms Respiratory insufficiency Shock Applicable Nutrition Hx (08/28) s/p lap CCY w/ intraoperative cholangiography (08/30) extubated ? HELICOPTER OFFICER eval pending Anthropometrics Height: 172.7 cm (67.99 [...] Driven Protocol sodium chloride Physical Findings Chewing/Swallowing HELICOPTER OFFICER following Dentition Mouth/Teeth WDL: .WDL except Teeth [...] & Output (last 3 days) 08/27 0708/28 0708/28 0708/29 0708/30 0708/30 0708/31 07 I.V. (mL/kg) 25 (0.3) 4376.7 (46.9) 267.4 (2.9) 22.8 (0.2) NG/GT 70 IV Piggyback 1350 600 152.2 36.5 Total Intake(mL/kg) 1375 (14.7) 4976.7 (53.3) 489.6 (5.2) 59.3 (0.6) Urine (mL/kg/hr) 750 1230 (0.5) 1745 (0.8) 215 (0.5) Emesis/NG output 350 210 Drains 105 50 Stool 0 0 Total Output 750 1685 2005 215 Net +625 +3291.7 -1515.4 -155.7 Stool Unmeasured Occurrence 2 x 1 x Nutrition Focused Physical Exam 08/30/25: NFPE not completed r/t pt unable to consent at this time Estimated Needs Date Assessed 08/30 Weight(s) Used 93.4 kg CBW 70.34 kg IBW Energy Requirements Method for Estimation 17-20kcal/kg CBW = 1588 - 1868 25-30 kcals/kg IBW = 4726-3489 MSJ (1586) x 1.1 = 1745 Daily [...] Prescription Advance diet as clinically indicated per HELICOPTER OFFICER recs Supplement Prescription Education Provided Enteral Prescription [...] days and prn Electronically signed by: Aaliyah Peralta, ,RD,LD 08/30/25 11:31 EST * Hermes Jaramillo MD - 08/30/2025 9:57 AM EST Patient Name: Loc Thurman Date of : 1940 [id number] Surgery Progress Note Date of visit: 08/30/2025 [...] a lung nodule by Dr. Castillo in [place], [place] on 08/26/2025. Subsequently, he was seen at [facility] for acute abdominal pain and sepsis and was transferred [facility] for further evaluation. He was diagnosed with [...] HISTORY Tobacco: Former smoker History taken from: [facility]//Social History were reviewed and updated appropriately in [...] (%): [45 %-100 %] 45 % 08/28 701 - 08/29 700 In: 4976.7 [I.V.:4376.7] Out: 1685 [Urine:1230; Drains:105] Body mass index is 31.33 kg/m??. Mode: VC+/AC FiO2 (%): [45 %-100 %] 45 % S RR: [14-16] 16 S VT: [460 mL] 460 mL PEEP/CPAP (cm H2O): [5 cm H20-10 cm H20] 10 cm H20 MAP (cm H2O): [9-15] 14 IV drips: fentanyl 10 mcg/mL, Last Rate: 200 mcg/hr (08/28/25 221) norepinephrine, Last Rate: Stopped (08/28/25 0232) phenylephrine, Last Rate: 0.25 mcg/kg/min (08/29/25 0400) propofol, Last Rate: 20 mcg/kg/min (08/29/25829) vasopressin, Last Rate: 0.03 Units/min (08/29/25829) Physical Exam: Physical Exam General: Elderly male [...] propofol, 5-50 mcg/kg/min, Last Rate: 20 mcg/kg/min (08/29/25 0830) vasopressin, 0.03 Units/min, Last Rate: 0.03 Units/min (08/29/25 0830) Assessment & Plan Acute pancreatitis Vasovagal syncope [...] a lung nodule by Dr. Castillo in [place], [place] on 08/26/2025. Subsequently, he was seen at [facility] for acute abdominal pain and sepsis and was transferred [facility]. He was diagnosed with [...] MD 08/29/25 09:20 EST Patient or patient office machines sales representative verbalized consent for the use of Ambient Listening during the visit for chart documentation. *Exception: for ICU patients or for instances where consent for use was not given, active listeningwas used only for dictation and was not used to record patient or family. * Hermes Jaramillo MD - 08/29/2025 7:24 AM EST Patient Name: Loc Thurman Date of : 1940 [id number] Surgery Progress Note Date of visit: 08/29/2025 [...] Name: Loc Thurman Date of : 1940 [id number] Surgery Post - Operative Note Date of [...] social history were reviewed and updated in [facility] as appropriate. Objective Infusions: norepinephrine, 0.02-0.3 mcg/kg/min, Last Rate: Stopped (08/28/25231) phenylephrine, 0.5-3 mcg/kg/min, Last Rate: 0.5 mcg/kg/min (08/28/25912) sodium bicarbonate 150 mEq in D5W, 100 mL/hr, Last Rate: 100 mL/hr (08/28/25755) vasopressin, 0.03 Units/min, Last Rate: 0.03 Units/min [...] 24 hour shift 08/27 701 - 08/28 07 In: 1375 [I.V.:25] Out: 750 [Urine:750] Mode: [...] 7 days Lab Units 08/28/25 0843 08/28/25 0608/27/251942 WBC 10*3/mm3 -- 42.13* 15.69* HEMOGLOBIN g/dL -- 9.2* 11.1* HEMOGLOBIN, POC g/dL 7.8* -- -- PLATELETS 10*3/mm3 -- 183 171 Results from last 7 days Lab Units 08/28/25 0613 08/28/25 0135 08/27/25 2234 08/27/251942 SODIUM mmol/L 147* 143 -- 143 POTASSIUM [...] Results from last 7 days Lab Units 08/28/2584208/28/25717 PH, ARTERIAL pH units 7.18* 7.273* PCO2, ARTERIAL mm Hg -- 31.2* PO2 ART mm Hg -- 87.0 I reviewed the patient's new clinical results. I reviewed the patient's new imaging results/reports including actual images and agree with reports. Imaging Results (Last 24 Hours) Procedure Component Value Units Date/Time FL Cholangiogram Operative - In process [[id number]] Resulted: 08/28/25828 Updated: 08/28/25845 This result has not been signed. Information might be incomplete. XR Chest 1 View [[id number]] Collected: 08/28/25543 Updated: 08/28/25547 Narrative: XR CHEST 1 VW [...] MD 08/28/2025 5:45 AM EST Workstation ID: [id number] CT Abdomen Pelvis Without Contrast [[id number]] Collected: 08/27/252219 Updated: 08/27/252227 Narrative: CT ABDOMEN [...] MD 08/27/2025 10:25 PM EST Workstation ID: [id number] Assessment & Plan Impression Acute pancreatitis Vasovagal [...] Name: Loc Thurman Date of : 1940 [id number] Surgery Progress Note Date of visit: 08/28/2025 [...] Rubin MD - 08/27/2025 11:40 PM EST PARKING PATROLLER PROGRESS NOTE SUBJECTIVE Loc 84 y.o. male is followed for:No chief complaint on file. Pancreatitis Vasovagal syncope HTN (hypertension) Mixed hyperlipidemia COPD (chronic obstructive pulmonary disease) Former tobacco use History of prostate cancer BPH with obstruction/lower urinary tract symptoms As an Final Block Press Operator, we provide an integrated approach to the [...] mass [facility]25 because of evaluation of possible pancreatitis and cholecystitis. Patient underwent bronchoscopy yesterday for lung nodules/mass. Did have scant hemoptysis mixed in with saliva yesterday evening postprocedure. Has not had any olga hemoptysis orno further episodes. Today he woke up with upper abdominal pain after eating breakfast as well as nausea and vomiting. Went to [facility] and during transport her head syncopal episode [...] social history were reviewed and updated in [facility] as appropriate. Review of Systems As described [...] (08/27/252058) Best Verbal Response: 5-->(V5) oriented (08/27/252058) [place] Coma Scale Score: 15 (08/27/252058) Lines, Drains [...] from last 7 days Lab Units 08/27/25 194 LACTATE mmol/L 7.2* PROCALCITONIN ng/mL 68.30* FERRITIN [...] MD 08/27/2025 10:25 PM EST Workstation ID: [id number] Echo: Results: Reviewed. I reviewed the patient's [...] of external beam radiation and hormonal therapy (2015), and tobacco use Pulmonary 2 L nasal [...] from the original note were not included. [facility] HISTORY AND PHYSICAL Patient [...] (2014), and tobacco use who [facility] transfer from [facility] for evaluation of pancreatitis and distended gallbladder. History of Present Illness Reason for Admit: Abdominal pain with nausea vomiting The patient presents [facility] transfer from [facility] for evaluation of abdominal pain with nausea and vomiting. He reports experiencing abdominal pain and chest discomfort, which began this morning after consuming a bowl of cereal for breakfast. The pain, described as a constant ache across his lower chest andupper abdomen, initially peaked at a severity of 10/10. [facility], morphine was administered, but it was ineffective [...] and sees Dr. Brooks for cardiology in [place]. Review of Systems Constitutional: Positive for activity [...] (2014), and tobacco use who [facility] via transfer from [facility] for evaluation of pancreatitis and distended gallbladder. Patient/family describe syncopal episode in ambulance in route from [facility] this afternoon subjective SBP in the 80s. 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 Attending Admission Attestation I have performed an independent [id number] diagnostic evaluation including performing an independent physical examination. I approve of the documented plan of care above that was reviewed and developed with the advanced practice lead (APC) and take responsibility for that plan along with itsassociated risks. I have updated the HPI as appropriate. Brief HPI Loc Thurman is a 84 y.o. 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 [...] this encounter Procedure Notes * Alma Rosa Luacs APRN - 08/28/2025 5:20 AM ESTAssociated Order(s): Insert Arterial Line Post-Procedure Diagnose(s): Acute pancreatitis, unspecified complication status, unspecified pancreatitis type Insert Arterial Line Date/Time: 08/28/2025 5:20 AM Performed by: Alma Rosa Lucas APRN Authorized by: Alma Rosa Lucas APRN [place] Protocol: Verbal consent obtained?: Yes Risks and [...] time out verifies correct patient, procedure, equipment, computer customer support specialist and site/side marked as required: Preparation: Preparation: [...] to verify the correct patient, procedure, equipment, computer customer support specialist and site/side marked as required. Indications: vascular [...] this encounter Consult Notes * Waleska Vivas MS, RD,FELICIA - 09/03/2025 11:39 AM ESTAssociated Order(s): IP CONSULT TO NUTRITION SERVICES Nutrition Services Patient Name: Loc Thurman Date of : 1940 Admit Date: 08/27/2025 Consult received for chronic poor intake. Pt seen and assessed by ANGÉLICA yesterday, see note for full assessment and interventions in place. RD will continue to follow per protocol. Electronically signed by: Waleska Vivas MS, RD,FELICIA 09/03/25 11:39 EST * Hermes Jaramillo MD - 08/27/2025 9:11 PM ESTAssociated Order(s): IP CONSULT TO GENERAL SURGERY Patient Name: Loc Thurman Date of : 1940 [id number] Patient Care Team: Provider, No Known as [...] left lung mass. He underwent bronchoscopy at [facility] yesterday. He states postoperatively he did [...] for cancers Social History: Pt [facility]. Tobacco use: Denies , quit 35 years [...] Jaramillo MD 08/27/25 21:11 EST Dictated using Soap[employer] Dictation CT scan personally reviewed. This shows [...] in this encounter Nursing Notes * Siri Hopkins, RN - 09/05/2025 2:07 PM EST Prior [...] of Care Review Outcome: Progressing Flowsheets (Taken 09/03/2025146) Progress: improving Plan of Care Reviewed With: patient Goal: Patient-Specific Goal (Individualized) Outcome: Progressing Flowsheets (Taken 09/03/2025146) Patient/Family-Specific Goals (Include Timeframe): patient will be [...] reach Intervention: Promote Injury-Free Environment Flowsheets Taken 09/03/2025 0147 Safety Promotion/Fall Prevention: activity supervised clutter free [...] Intervention: Monitor and Manage Bleeding Flowsheets (Taken 09/03/2025 0147) Bleeding Management: dressing monitored Goal Outcome Evaluation: Plan of Care Reviewed With: patient Progress: improving * Andrea Dukes MS CCC-HELICOPTER OFFICER - 09/02/2025 1:04 PM EST Goal Outcome Evaluation: Plan of Care Reviewed With: patient Progress: declining Anticipated Discharge Disposition (HELICOPTER OFFICER): inpatient rehabilitation facility HELICOPTER OFFICER Swallowing Diagnosis: mild, oral dysphagia, mod-severe, pharyngeal [...] Disposition (PT): inpatient rehabilitation facility * Patsy Abernathy OT - 09/02/2025 7:40 AM EST Goal [...] Goal Outcome Evaluation: * Nora Montano MS CF-HELICOPTER OFFICER - 09/01/2025 4:10 PM EST Goal Outcome Evaluation: Plan of Care Reviewed With: patient Anticipated Discharge Disposition (HELICOPTER OFFICER): inpatient rehabilitation facility Treatment Assessment (HELICOPTER OFFICER): toleration of diet, clinical signs of, aspiration (09/01/25 1530) Treatment Assessment Comments (HELICOPTER OFFICER): Pt requesting thin liquids. Explained justification of thickened liquids (09/01/25 1530) Plan for Continued Treatment (HELICOPTER OFFICER): continue treatment per plan of care (09/01/251529) * Wilbur Balderas, RN - 08/31/2025 5:18 PM EST Goal Outcome Evaluation: Plan of Care Reviewed With: patient Outcome Evaluation: bp still elevated today, extra dose lisinopril given and hydralazine x1. otherwise vss. did have trouble with whole med with nectar but otherwise tolerated ntl and pureed. no bm today, adequate urine per maurer. * Radha Smith, OT - 08/31/2025 1:07 PM EST Goal Outcome Evaluation: Plan of Care Reviewed With: patient, son Progress: improving Outcome Evaluation: Pt continues to progress towards all OT goals, limited by weakness, confusion, and decreased activity tolerance. Pt tolerated seated UE ther-ex this session with AAROM/AROM. Cont POC. Anticipated Discharge Disposition (OT): inpatient rehabilitation facility * Andrea Dukes MS CCC-HELICOPTER OFFICER - 08/31/2025 9:54 AM EST Goal Outcome Evaluation: Plan of Care Reviewed With: patient Progress: improving Anticipated Discharge Disposition (HELICOPTER OFFICER): inpatient rehabilitation facility HELICOPTER OFFICER Swallowing Diagnosis: moderate, oral dysphagia, pharyngeal dysphagia [...] 3 and gait belt. B/p remains elevated. CYBER CRIME INVESTIGATOR notified, Hydralazine ordered for sbp >160 given [...] adequate urine per maurer. starting trophic feeds, animal surgeon to fees tomorrow. * Alma Aiken, Speech Therapy Student - 08/30/2025 11:14 AM EST Goal Outcome Evaluation: Plan of Care Reviewed With: (P) patient, child Anticipated Discharge Disposition (HELICOPTER OFFICER): (P) inpatient rehabilitation facility HELICOPTER OFFICER Swallowing Diagnosis: (P) suspected pharyngeal dysphagia (08/30/25 1005) Cosigned by Lea Echols MS CCC-HELICOPTER OFFICER at 08/30/2025 11:59 AM EST Associated attestation - Lea Echols MS CCC-HELICOPTER OFFICER - 08/30/2025 11:59 AM EST Lea Echols MS CCC-HELICOPTER OFFICER * Aury Fitzgerald OT - 08/30/2025 9:16 AM EST Goal Outcome Evaluation: Plan of Care Reviewed With: patient, son Outcome Evaluation: Pt's ADL independence limited d/t generalized weakness, decrease functional endurance, balance deficits, and pain. Pt would benefit from continued skilled IPOT services to addresscurrent functional deficits. Rec IRF at d/c. Anticipated Discharge Disposition (OT): inpatient rehabilitation facility * Flora Galvan PT - 08/30/2025 9:03 AM EST Goal [...] chair and BSC. Pt's decreased independence warrants supervisor seaming care. Recommend D/C to IP rehab facility. [...] to clear these secretions on his own. HELICOPTER OFFICER eval ordered perprotocol. Early in to evening pt was fully [...] Reported abdominal soreness once, given dilaudid 0.5mg IVP.No nausea as stated by previous shift. NG tube intermittently set to suction and did not produce any significant amount of gastric content. Pt has been afebrile throughout the night. Normoactive bowel sounds noted this morning, no flatus or stool but has belched multiple times. Abdomen remains taut. Edema noted generalized but significant in scrotum and penis. BP mildly elevated early in evening,otherwise vitals have been within desired limits. * Nazia Arauz CRT - 08/28/2025 5:15 PM EST Goal Outcome Evaluation:POST OP EXP LAP, REST TONIGHT, WEAN TOMORROW documented in this encounter OR Notes * Op Note - Hermes Jaramillo MD - 08/28/2025 8:20 AM EST Operative Report Patient Name: Loc Thurman Date of : 1940 [id number] 08/28/2025 PREOPERATIVE DIAGNOSIS: Acute cholecystitis with sepsis POSTOPERATIVE DIAGNOSIS: Same PROCEDURE PERFORMED: Laparoscopic cholecystectomy with intraoperative cholangiography SURGEON: Hermes Jaramillo MD GIS ENGINEER: Annie Jorgensen PA-C. Annie Jorgensen PA-C was [...] of 0 Vicryl was then placed in [id number] fashion around the defect, and a blunt [...] CHOLECYSTECTOMY LAPAROSCOPIC INTRAOPERATIVE CHOLANGIOGRAM Progress Note Loc Wright Olman 08/28/2025 Pre-op Diagnosis: Acute cholecystitis Post-Op Diagnosis Codes: Same Procedure(s): Procedure(s): CHOLECYSTECTOMY LAPAROSCOPIC INTRAOPERATIVE CHOLANGIOGRAM Surgeon(s): Hermes Jaramillo MD Anesthesia: General Staff: Senior Pensions Administrator: Maria Elena Buckner RN Physician Forms Designer: Annie Jorgensen PA Scrub Person: Katherine Duke Estimated Blood Loss: minimal Urine Voided: 30 mL Specimens: Specimens ID Source Type Tests Collected By Collected At Frozen? A Gallbladder Tissue TISSUE PATHOLOGY EXAM Hermes Jaramillo MD 08/28/25 0840 No Description: gallbladder Drains: Closed/Suction Drain 1 RUQ Bulb 10 Fr. (Active) Urethral Catheter Coude (Active) Daily Indications Acute Urinary Retention 08/28/25 040 Site Assessment Skin intact;Clean 08/28/25599 Collection Container Standard drainage bag 08/28/25599 Securement Method Securing device 08/28/25599 Catheter care complete Yes 08/28/25399 Output (mL) 200 mL 08/28/25599 Findings: Acute cholecystitis IOC shows distention of [...] Case Management Discharge Note Final Note: Per MDR, medically ready for d/c today to IPR @ [facility] inpatient rehab in [place], [place]. I spoke w/Ella liaison @ [facility], per Ella can come @ 1600 PM today. RN to call report to [phone] and send d/c packet w/patient. I will fax dc summary to [phone] when completed in [facility] I discussed w/patient and son in room, [...] Provider Services Address Phone Fax Patient Preferred [facility] Inpatient Rehabilitation [address] [place] [address] [phone] -- Durable Medical Equipment No services have [...] facility * MBS/VFSS/FEES - Andrea Dukes MS CCC-HELICOPTER OFFICER - 09/05/2025 10:16 AM EST Images from the original note were not included. Acute Care - Speech Language Pathology Swallow Re-Assessment [facility] Modified Barium Swallow Study (MBS) Patient [...] INTRAOPERATIVE CHOLANGIOGRAM; Surgeon: Hermes Jaramillo MD; Location: [facility]; Service: General; Laterality: N/A; COLONOSCOPY HERNIA REPAIR HELICOPTER OFFICER Recommendation and Plan Recommended discharge disposition is based on the functional assessment performed by PT/OT/Speech therapy (as applicable) and may not reflect the medical necessity determined by your provider or services covered by an individual patient's insurance plan or patient resource. HELICOPTER OFFICER Swallowing Diagnosis: mild, oral dysphagia, pharyngeal dysphagia (09/05/25829) HELICOPTER OFFICER Diet Recommendation: soft to chew textures, chopped, thin liquids (09/05/25829) Recommended Precautions and Strategies: chin tuck (09/05/25829) HELICOPTER OFFICER Rec. for Method of Medication Administration: as tolerated (must utilize chin tuck with all PO)(09/05/25829) Monitor for Signs of Aspiration: yes, notify HELICOPTER OFFICER if any concerns (09/05/25829) Swallow Criteria for Skilled Therapeutic Interventions Met: demonstrates skilled criteria () Anticipated Discharge Disposition (HELICOPTER OFFICER): inpatient rehabilitation facility (09/05/25829) Rehab Potential/Prognosis, Swallowing: good, to achieve stated therapy goals (09/05/25829) Therapy Frequency (Swallow): 5 days per week (09/05/25829) Predicted Duration Therapy Intervention (Days): 2 weeks (09/05/25829) Oral Care Recommendations: Oral Care BID/PRN, Toothbrush (09/05/25 0830) Penetration of thins in chin neutral head posture Progress: declining SWALLOW EVALUATION (Last 72 Hours) HELICOPTER OFFICER Adult Swallow Evaluation Row Name 09/05/25 0830 09/02/25 1315 09/02/25 1100 Rehab Evaluation Document Type [...] Noted, Comment -- Reported to RN and TECHNICAL PROJECT COORDINATOR via secure chat who came and assessed at bedside-RS reported to RN and transport and radiology staff -RS General Information Patient Profile Reviewed yes -RS yes -RS yes -RS Pertinent History Of Current Problem See previous HELICOPTER OFFICER notes -RS See previous HELICOPTER OFFICER notes -RS See previous HELICOPTER OFFICER notes -RS Pain Pretreatment Pain Rating 0/10 - no pain -RS 0/10 - no pain -RS 0/10 - no pain -RS Posttreatment Pain Rating 0/10 - no pain -RS 0/10 - no pain -RS 0/10 - no pain -RS General Eating/Swallowing Observations Respiratory Support Currently in Use room air -RS -- room air -RS Eating/Swallowing Skills self-fed -RS -- fed by HELICOPTER OFFICER;needed assist;self-fed -RS Positioning During Eating upright 90 [...] aspiration;Silent aspiration;Risks of aspiration;Safest diet options -RS HELICOPTER OFFICER Evaluation Clinical Impression HELICOPTER OFFICER Swallowing Diagnosis mild;oral dysphagia;pharyngeal dysphagia -RS -- mild;oral dysphagia;mod-severe;pharyngeal dysphagia -RS Functional Impact risk of aspiration/pneumonia -RS -- risk of aspiration/pneumonia -RS Rehab Potential/Prognosis, Swallowing good, to achieve stated therapy goals -RS -- good, to achievestated therapy goals -RS Swallow Criteria for Skilled Therapeutic Interventions Met demonstrates skilled criteria -RS -- demonstrates skilled criteria -RS HELICOPTER OFFICER Treatment Clinical Impressions Treatment Assessment (HELICOPTER OFFICER) -- mild;oral dysphagia;moderate-severe;pharyngeal dysphagia -RS -- Treatment Assessment Comments (HELICOPTER OFFICER) -- Lengthy education w pt and family. Discussed MBS results including review of all images on screen. Discussed modified diet, comfort diet, goal of rehab in [place], resp status, feelings of SOA, palatable food preferences, aspiration, silent aspiration, dysphagia, pharyngeal exs, oral care, free water, and repeat instrumental timeframe. Hospitalist TECHNICAL PROJECT COORDINATOR to order several more tests in light of SOA c/o and new cxr findings. If OK'd by hospital medicine team wouldlike to add small sips of free water between meals and after oral care. Pt is agreeable to independent practice of pharyngeal exs and repeat instrumental early next week. Pt and son verbalized understanding and appreciation. -RS -- Plan for Continued Treatment (HELICOPTER OFFICER) -- continue treatment per plan of care -RS -- Care Plan Review -- evaluation/treatment results reviewed;care plan/treatment goals reviewed;risks/benefits reviewed -RS -- Recommendations Therapy Frequency (Swallow) 5 days per week -RS 5 days per week -RS 5 days per week -RS Predicted Duration Therapy Intervention (Days) 2 weeks -RS 2 weeks -RS 2 weeks -RS HELICOPTER OFFICER Diet Recommendation soft to chew textures;chopped;thin liquids [...] BID/PRN;Toothbrush -RS Oral Care BID/PRN;Suction toothbrush -RS HELICOPTER OFFICER Rec. for Method of Medication Administration as tolerated must utilize chin tuck with all PO -RS meds whole;with thick liquids;with puree -RS meds whole;with thick liquids;with puree -RS Monitor for Signs of Aspiration yes;notify HELICOPTER OFFICER if any concerns -RS yes;notify HELICOPTER OFFICER if any concerns -RS yes;notify HELICOPTER OFFICER if any concerns -RS Anticipated Discharge Disposition (HELICOPTER OFFICER) inpatient rehabilitation facility -RS inpatient rehabilitation facility -RS inpatient rehabilitation facility -RS User Jung (r) = Recorded By, (t) = Taken By, (c) = Cosigned By Initials Name Effective Dates RS Andrea Dukes MS [facility]-HELICOPTER OFFICER 07/03/23 - EDUCATION The patient has been educated in the following areas: Dysphagia (Swallowing Impairment) Modified Diet Instruction. HELICOPTER OFFICER GOALS Row Name 09/05/25 0830 09/02/25 1315 09/02/25 1100 (LTG) Patient will demonstrate functional swallow for Diet Texture (Demonstrate functional swallow) regular textures -RS regular textures -RS regular textures -RS Liquid viscosity (Demonstrate functional swallow) thin liquids -RS thin liquids -RS thin liquids -RS [place] (Demonstrate functional swallow) independently (over 90% accuracy) [...] use of compensatory strategies (see comments) -RS [place] (Tolerate trials) with minimal cues (75-90% accuracy) -RS with minimal cues (75-90% accuracy) -RS with minimal cues (75-90% accuracy) -RS Time Frame (Tolerate trials) 1 week -RS 1 week -RS 1 week -RS Progress/Outcomes (Tolerate trials) goal revised this -RS goal revised this date -RS goal revised this date -RS (STG) [...] signs of distress;with adequate oral prep/transit/clearance -RS [place] (Tolerate therapeutic trials) with minimal cues (75-90% accuracy) - RS with minimal cues (75-90% accuracy) -RS with minimal cues (75-90% accuracy) -RS Time Frame (Tolerate therapeutic trials) 1 week -RS 1 week -RS 1 week -RS Progress/Outcomes (Tolerate therapeutic trials) goal met -RS goal revised this -RS goal revised this -RS (STG) Lingual Strengthening Goal 1 (HELICOPTER OFFICER) Activity (Lingual Strengthening Goal 1, HELICOPTER OFFICER) increase tongue back strength -RS increase tongue backstrength -RS increase tongue back strength -RS Increase Tongue Back Strength lingual resistance exercises -RS lingual resistance exercises -RS lingual resistance exercises -RS [place]/Accuracy (Lingual Strengthening Goal 1, HELICOPTER OFFICER) with minimal cues (75- 90% accuracy) -RS with minimal cues (75-90% accuracy) -RS with minimal cues (75- 90% accuracy) -RS Time Frame (Lingual Strengthening Goal 1, HELICOPTER OFFICER) 1 week -RS 1 week -RS 1 week -RS Progress/Outcomes (Lingual Strengthening Goal 1, HELICOPTER OFFICER) goal ongoing -RS goal ongoing -RS goal ongoing -RS (STG) Pharyngeal Strengthening Exercise Goal 1 (HELICOPTER OFFICER) Activity (Pharyngeal Strengthening Goal 1, HELICOPTER OFFICER) increase timing;increase superior movement of the hyolaryngeal [...] Retraction mike -RS mike -RS mike -RS [place]/Accuracy (Pharyngeal Strengthening Goal 1, HELICOPTER OFFICER) with minimal cues (75-90% accuracy) -RS with minimal cues (75-90% accuracy) -RS with minimal cues (75-90% accuracy) -RS Time Frame (Pharyngeal Strengthening Goal 1, HELICOPTER OFFICER) 1 week -RS 1 week -RS 1 week -RS Progress/Outcomes (Pharyngeal Strengthening Goal 1, HELICOPTER OFFICER) goal ongoing -RS goal ongoing -RS goal ongoing -RS Comment (Pharyngeal Strengthening Goal 1, HELICOPTER OFFICER) Came back to room and demo'd all pharyngeal exercises and reviewed dysphagia exercise sheet w pt and son -RS -- -- (STG) Swallow Compensatory Strategies Goal 1 (HELICOPTER OFFICER) Activity (Swallow Compensatory Strategies/Techniques Goal 1, HELICOPTER OFFICER) aspiration precautions;compensatory strategies;chin up posture -RS -- -- [place]/Accuracy (Swallow Compensatory Strategies/Techniques Goal 1, HELICOPTER OFFICER) independently (over 90% accuracy) -RS -- -- Time Frame (Swallow Compensatory Strategies/Techniques Goal 1, HELICOPTER OFFICER) 1 week -RS -- -- Progress/Outcomes (Swallow Compensatory Strategies/Techniques Goal 1, HELICOPTER OFFICER) new goal -RS -- -- Comment (Swallow Compensatory Strategies/Techniques Goal 1, HELICOPTER OFFICER) Discussed compensatory strategy use w demonstration w pt and son -RS -- -- User Jung (r) = Recorded By, (t) = Taken By, (c) = Cosigned By Initials Name Provider Type Andrea Mitchell MS CCC-ISAIAH Speech and Language Pathologist Time Calculation: Time Calculation- HELICOPTER OFFICER Row Name 09/05/25 1028 Time Calculation- HELICOPTER OFFICER HELICOPTER OFFICER Start Time 0830 -RS HELICOPTER OFFICER Received On 09/05/25 -RS Timed Charges 84019-Oaoiryovv Training Stragies & TQ 1st 30 Min 1 -RS Untimed Charges 82081-BF Motion Fluoro Eval Swallow Minutes 56 -RS 81268-HO Treatment Swallow Minutes 12 -RS Total Minutes Untimed Charges Total Minutes 68 -RS Total Minutes 68 -RS User Jung (r) = Recorded By, (t) = Taken By, (c) = Cosigned By Initials Name Provider Type RS Andrea Dukes MS CCC-HELICOPTER OFFICER Speech and Language Pathologist Therapy Charges for Today Code Description Service Date Service Provider Modifiers Qty [id number] HC ST MOTION FLUORO EVAL SWALLOW 4 09/05/2025 Andrea Dukes MS CCC- SLP GN [address] TREATMENT SWALLOW 1 09/05/2025 Andrea Dukes MS CCC-SLP GN 1 [id number] HC CAREGIVER TRAINING STRATEGIES & TQ 1ST 30 MINUTES 09/05/2025 Andrea Dukes MS CCC-HELICOPTER OFFICER 1 MS MARIA INES Chatterjee 09/05/2025 * Therapy Treatment Note - Andrea Dukes MS CCC-SLP - 09/02/2025 2:37 PM EST Images from the original note were not included. Acute Care - Speech Language Pathology Swallow Treatment Note and Education [facility] Patient Name: Loc Thurman : 1940 Today's [...] INTRAOPERATIVE CHOLANGIOGRAM; Surgeon: Hermes Jaramillo MD; Location: [facility]; Service: General; Laterality: N/A; COLONOSCOPY HERNIA REPAIR HELICOPTER OFFICER Recommendation and Plan Recommended discharge disposition is based on the functional assessment performed by PT/OT/Speech therapy (as applicable) and may not reflect the medical necessity determined by your provider or services covered by an individual patient's insurance plan or patient resource. HELICOPTER OFFICER Swallowing Diagnosis: mild, oral dysphagia, mod-severe, pharyngeal dysphagia (09/02/251099) HELICOPTER OFFICER Diet Recommendation: mechanical ground textures, no mixed consistencies, honey thick liquids (09/02/251314) Recommended Precautions and Strategies: no straw, small bites of food and sips of liquid, upright posture during/after eating, general aspiration precautions (09/02/251314) HELICOPTER OFFICER Rec. for Method of Medication Administration: meds whole, with thick liquids, with puree (09/02/251314) Monitor for Signs of Aspiration: yes, notify HELICOPTER OFFICER if any concerns (09/02/251314) Recommended Diagnostics: reassess via VFSS (MBS), other (see comments) (early next week) (09/02/251314) Swallow Criteria for Skilled Therapeutic Interventions Met: demonstrates skilled criteria () Anticipated Discharge Disposition (HELICOPTER OFFICER): inpatient rehabilitation facility (09/02/251314) Rehab Potential/Prognosis, Swallowing: good, to achieve stated therapy goals (09/02/25 1100) Therapy Frequency (Swallow): 5 days per week (09/02/251314) Predicted Duration Therapy Intervention (Days): 2 weeks (09/02/251314) Oral Care Recommendations: Oral Care BID/PRN, Toothbrush (09/02/251314) Treatment Assessment (HELICOPTER OFFICER): mild, oral dysphagia, moderate-severe, pharyngeal dysphagia (09/02/251314) Treatment Assessment Comments (HELICOPTER OFFICER): Lengthy education w pt and family. Discussed MBS results including review of all images on screen. Discussed modified diet, comfort diet, goal of rehab in [place], resp status, feelings of SOA, palatable food preferences, aspiration, silent aspiration, dysphagia, pharyngeal exs, oral care, free water, and repeat instrumental timeframe. Hospitalist TECHNICAL PROJECT COORDINATOR to order several more tests in light of SOA c/o and new cxr findings. If OK'd by hospital medicine team would like to add small sips of free water between meals and after oral care. Pt is agreeable to independent practice of pharyngeal exs and repeat instrumental early next week. Pt and son verbalized understanding and appreciation. (09/02/251314) Plan for Continued Treatment (HELICOPTER OFFICER): continue treatment per plan of care (09/02/251314) Progress: declining SWALLOW EVALUATION (Last 72 Hours) HELICOPTER OFFICER Adult Swallow Evaluation Row Name 09/02/25131409/02/25 1100 09/01/25 1530 08/31/25 0815 Rehab Evaluation [...] Symptoms Noted, Comment Reported to RN and TECHNICAL PROJECT COORDINATOR via secure chat who came and assessed at bedside -RS reported to RN and transport and radiology staff -RS -- -- Oral Care -- -- patient refused intervention -SM teeth brushed - suction toothbrush -RS General Information Patient Profile Reviewed yes -RS yes -RS yes -SM yes -RS Pertinent History Of Current Problem See previous HELICOPTER OFFICER notes -RS See previous HELICOPTER OFFICER notes -RS See previous HELICOPTER OFFICER notes -SM See previous HELICOPTER OFFICER notes. Pt has been cleared for PO [...] 3L -RS Eating/Swallowing Skills -- fed by HELICOPTER OFFICER;needed assist;self-fed -RS self-fed;fed by HELICOPTER OFFICER;needed assist-SM fed by staff/caregiver -RS Positioning During Eating -- upright 90 degree;upright in chair -RS upright 90 degree;upright in chair - upright 90 degree;upright in bed -RS Utensils Used -- spoon;cup;straw -RS straw -SM spoon;cup;straw -RS Consistencies Trialed -- thin liquids;nectar/syrup-thick [...] Scale (Steven et al. 1995) -- -- -- 2- secretions initially [...] Signs of aspiration;Silent aspiration;Risks of aspiration -RS HELICOPTER OFFICER Evaluation Clinical Impression HELICOPTER OFFICER Swallowing Diagnosis -- mild;oral dysphagia;mod-severe;pharyngeal dysphagia -RS -- moderate;oral dysphagia;pharyngeal dysphagia -RS Functional Impact -- risk of aspiration/pneumonia -RS -- risk of aspiration/pneumonia -RS Rehab Potential/Prognosis, Swallowing -- good, to achieve stated therapy goals - RS -- good, to achieve stated therapy goals -RS Swallow Criteria for Skilled Therapeutic Interventions Met -- demonstrates skilled criteria -RS -- demonstrates skilled criteria -RS HELICOPTER OFFICER Treatment Clinical Impressions Treatment Assessment (HELICOPTER OFFICER) mild;oral dysphagia;moderate-severe;pharyngeal dysphagia -RS -- toleration of diet;clinical signs of;aspiration -SM -- Treatment Assessment Comments (HELICOPTER OFFICER) Lengthy education w pt and family. Discussed MBS results including review of all images on screen. Discussed modified diet, comfort diet, goal of rehab in [place], resp status, feelings of SOA, palatable food preferences, aspiration, silent aspiration, dysphagia, pharyngeal exs, oral care, free water, and repeat instrumental timeframe. Hospitalist TECHNICAL PROJECT COORDINATOR to order several more tests in light [...] liquids -SM -- Daily Summary of Progress (HELICOPTER OFFICER) -- -- progress toward functional goals is good - SM -- Plan for Continued Treatment (HELICOPTER OFFICER) continue treatment per plan of care -RS [...] 2 weeks - SM 2 weeks -RS HELICOPTER OFFICER Diet Recommendation mechanical ground textures;no mixed consistencies;honey [...] toothbrush -SM Oral Care BID/PRN;Suction toothbrush -RS HELICOPTER OFFICER Rec. for Method of Medication Administration meds whole;with thick liquids;with puree -RS meds whole;with thick liquids;with puree -RS meds whole;with thick liquids -SM meds whole;with thick liquids;meds via alternate route -RS Monitor for Signs of Aspiration yes;notify HELICOPTER OFFICER if any concerns -RS yes;notify HELICOPTER OFFICER if any concerns -RS yes;notify HELICOPTER OFFICER if any concerns -SM yes;notify HELICOPTER OFFICER if any concerns -RS Anticipated Discharge Disposition (HELICOPTER OFFICER) inpatient rehabilitation facility -RS inpatient rehabilitation facility -RS inpatient rehabilitation facility -SM inpatient rehabilitation facility -RS User Jung (r) = Recorded By, (t) = Taken By, (c) = Cosigned By Initials Name Effective Dates RS Andrea Dukes MS CCC-HELICOPTER OFFICER 07/03/23 - Nora Weienr MS CF-HELICOPTER OFFICER 03/24/25 - EDUCATION The patient has been educated in the following areas: Dysphagia (Swallowing Impairment) Modified Diet Instruction. HELICOPTER OFFICER GOALS Row Name 09/02/25 1315 09/02/25 1100 09/01/25 1530 (LTG) Patient will demonstrate functional swallow for Diet Texture (Demonstrate functional swallow) regular textures -RS regular textures -RS regular textures -SM Liquid viscosity (Demonstrate functional swallow) thin liquids -RS thin liquids -RS thin liquids -SM [place] (Demonstrate functional swallow) independently (over 90% accuracy) [...] signs of distress;with adequate oral prep/transit/clearance -SM [place] (Tolerate trials) with minimal cues (75-90% accuracy) -RS with minimal cues (75-90% accuracy) -RS with minimal cues (75-90% accuracy) -SM Time Frame (Tolerate trials) 1 week -RS 1 week -RS 1 week -SM Progress/Outcomes (Tolerate trials) goal revised this -RS goal revised this -RS goal revised this -SM Comment (Tolerate trials) -- -- Upgraded to [facility] solids -SM (STG) Patient will tolerate therapeutic [...] signs of distress;with adequate oral prep/transit/clearance -SM [place] (Tolerate therapeutic trials) with minimal cues (75-90% accuracy) - RS with minimal cues (75-90% accuracy) -RS with minimal cues (75-90% accuracy) -SM Time Frame (Tolerate therapeutic trials) 1 week -RS 1 week -RS 1 week -SM Progress/Outcomes (Tolerate therapeutic trials) goal revised this -RS goal revised this -RS continuing progress toward goal -SM Comment (Tolerate therapeutic trials) -- -- Per RN, pt requesting thin liquids all day. Assessed ice and sips of thin water at bedside, pt consistently demonstrating TC. No s/sxs w/ nectar or solid trials. Oral concerns w/ solid, but OK to upgrade to [facility] grnd and monitor tolerance -SM (STG) Lingual Strengthening Goal 1 (HELICOPTER OFFICER) Activity (Lingual Strengthening Goal 1, HELICOPTER OFFICER) increase tongue back strength -RS increase tongue backstrength -RS increase tongue back strength -SM Increase Tongue Back Strength lingual resistance exercises -RS lingual resistance exercises -RS lingual resistance exercises -SM [place]/Accuracy (Lingual Strengthening Goal 1, HELICOPTER OFFICER) with minimal cues (75- 90% accuracy) -RS with minimal cues (75-90% accuracy) -RS with minimal cues (75- 90% accuracy) -SM Time Frame (Lingual Strengthening Goal 1, HELICOPTER OFFICER) 1 week -RS 1 week -RS 1 week -SM Progress/Outcomes (Lingual Strengthening Goal 1, HELICOPTER OFFICER) goal ongoing -RS goal ongoing -RS continuing progress toward goal -SM (STG) Pharyngeal Strengthening Exercise Goal 1 (HELICOPTER OFFICER) Activity (Pharyngeal Strengthening Goal 1, HELICOPTER OFFICER) increase timing;increase superior movement of the hyolaryngeal [...] Retraction mike -RS mike -RS mike -SM [place]/Accuracy (Pharyngeal Strengthening Goal 1, HELICOPTER OFFICER) with minimal cues (75-90% accuracy) -RS with minimal cues (75-90% accuracy) -RS with minimal cues (75-90% accuracy) -SM Time Frame (Pharyngeal Strengthening Goal 1, HELICOPTER OFFICER) 1 week -RS 1 week -RS 1 week -SM Progress/Outcomes (Pharyngeal Strengthening Goal 1, HELICOPTER OFFICER) goal ongoing -RS goal ongoing -RS continuing progress toward goal -SM Comment (Pharyngeal Strengthening Goal 1, HELICOPTER OFFICER) -- -- Demo'd all and left at bedside - Row Name 08/31/25 0815 (LTG) Patient will demonstrate functional swallow for Diet Texture (Demonstrate functional swallow) regular textures -RS Liquid viscosity (Demonstrate functional swallow) thin liquids -RS [place] (Demonstrate functional swallow) independently (over 90% accuracy) -RS Time Frame (Demonstrate functional swallow) 2 weeks -RS Progress/Outcomes (Demonstrate functional swallow) new goal -RS (STG) Patient will tolerate trials of Consistencies Trialed (Tolerate trials) pureed textures;nectar/ mildly thick liquids -RS Desired Outcome (Tolerate trials) without signs/symptoms of aspiration;without signs of distress;with adequate oral prep/transit/clearance -RS [place] (Tolerate trials) with minimal cues (75-90% accuracy) -RS Time Frame (Tolerate trials) 1 week -RS Progress/Outcomes (Tolerate trials) new goal -RS (STG) Patient will tolerate therapeutic trials of Consistencies Trialed (Tolerate therapeutic trials) soft to chew (chopped) textures;nectar/ mildly thick liquids -RS Desired Outcome (Tolerate therapeutic trials) without signs/symptoms of aspiration;without signs ofdistress;with adequate oral prep/transit/clearance -RS [place] (Tolerate therapeutic trials) with minimal cues (75-90% accuracy) -RS Time Frame (Tolerate therapeutic trials) 1 week -RS Progress/Outcomes (Tolerate therapeutic trials) new goal -RS (STG) Lingual Strengthening Goal 1 (HELICOPTER OFFICER) Activity (Lingual Strengthening Goal 1, HELICOPTER OFFICER) increase tongue back strength -RS Increase Tongue Back Strength lingual resistance exercises -RS [place]/Accuracy (Lingual Strengthening Goal 1, HELICOPTER OFFICER) with minimal cues (75- 90% accuracy) -RS Time Frame (Lingual Strengthening Goal 1, HELICOPTER OFFICER) 1 week -RS Progress/Outcomes (Lingual Strengthening Goal 1, HELICOPTER OFFICER) new goal -RS (STG) Pharyngeal Strengthening Exercise Goal 1 (HELICOPTER OFFICER) Activity (Pharyngeal Strengthening Goal 1, HELICOPTER OFFICER) increase timing;increase superior movement of the hyolaryngeal [...] -RS Increase Tongue Base Retraction mike -RS [place]/Accuracy (Pharyngeal Strengthening Goal 1, HELICOPTER OFFICER) with minimal cues (75-90% accuracy) -RS Time Frame (Pharyngeal Strengthening Goal 1, HELICOPTER OFFICER) 1 week -RS Progress/Outcomes (Pharyngeal Strengthening Goal 1, HELICOPTER OFFICER) new goal -RS User Jung (r) = Recorded By, (t) = Taken By, (c) = Cosigned By Initials Name Provider Type RS Andrea Dukes MS CCC-HELICOPTER OFFICER Speech and Language Pathologist Nora Weiner, CF-HELICOPTER OFFICER Speech and Language Pathologist Time Calculation: Time Calculation- HELICOPTER OFFICER Row Name 09/02/25 1435 09/02/25 1302 Time Calculation- HELICOPTER OFFICER HELICOPTER OFFICER Start Time 1315 -RS 1100 -RS HELICOPTER OFFICER Received On 09/02/25 -RS 09/02/25 -RS Timed Charges 24543-Srwxmtvem Training Stragies & TQ 1st 30 Min 1 -RS -- 45081-Znnvzbyoe Training Stragies & TQ EA Addl 15 Min 1 -RS -- Untimed Charges 80073-IK Motion Fluoro Eval Swallow Minutes -- 61 -RS 10683-VT Treatment Swallow Minutes 25 -RS -- Total Minutes Untimed Charges Total Minutes 25 -RS 61 -RS Total Minutes 25 -RS 61 -RS User Jung (r) = Recorded By, (t) = Taken By, (c) = Cosigned By Initials Name Provider Type RS Andrea Dukes MS CCC-HELICOPTER OFFICER Speech and Language Pathologist Therapy Charges for Today Code Description Service Date Service Provider Modifiers Qty 67554744293 HC ST MOTION FLUORO EVAL SWALLOW 4 09/02/2025 Ernst MS Andrea CCC- HELICOPTER OFFICER GN [address] TREATMENT SWALLOW 2 09/02/2025 Andrea Dukes MS CCC-HELICOPTER OFFICER GN 1 [id number] HC CAREGIVER TRAINING STRATEGIES & TQ 1ST 30 MINUTES 09/02/2025 Ernst MS PAYTON MendezHELICOPTER OFFICER 1 [id number] HC CAREGIVER TRAINING STRATEGIES &TQ EA ADDL 15 MIN 09/02/2025 Andrea Dukes MS CCC-HELICOPTER OFFICER 1 MS MARIA INES Chatterjee 09/02/2025 * MBS/VFSS/FEES - Andrea Dukes MS CCC-SLP - 09/02/2025 1:04 PM EST Images from the original note were not included. Acute Care - Speech Language Pathology Swallow Re-Assessment [place] Modified Barium Swallow Study (MBS) Patient Name: [...] INTRAOPERATIVE CHOLANGIOGRAM; Surgeon: Hermes Jaramillo MD; Location: [facility]; Service: General; Laterality: N/A; COLONOSCOPY HERNIA REPAIR HELICOPTER OFFICER Recommendation and Plan Recommended discharge disposition is based on the functional assessment performed by PT/OT/Speech therapy (as applicable) and may not reflect the medical necessity determined by your provider or services covered by an individual patient's insurance plan or patient resource. HELICOPTER OFFICER Swallowing Diagnosis: mild, oral dysphagia, mod-severe, pharyngeal dysphagia (09/02/251099) HELICOPTER OFFICER Diet Recommendation: mechanical ground textures, no mixed consistencies, honey thick liquids (09/02/251099) Recommended Precautions and Strategies: no straw, small bites of food and sips of liquid, upright posture during/after eating, general aspiration precautions (09/02/251099) HELICOPTER OFFICER Rec. for Method of Medication Administration: meds whole, with thick liquids, with puree (09/02/251099) Monitor for Signs of Aspiration: yes, notify HELICOPTER OFFICER if any concerns (09/02/251099) Swallow Criteria for Skilled Therapeutic Interventions Met: demonstrates skilled criteria () Anticipated Discharge Disposition (HELICOPTER OFFICER): inpatient rehabilitation facility (09/02/251099) Rehab Potential/Prognosis, Swallowing: good, to achieve stated therapy goals (09/02/251099) Therapy Frequency (Swallow): 5 days per week (09/02/251099) Predicted Duration Therapy Intervention (Days): 2 weeks (09/02/251099) Oral Care Recommendations: Oral Care BID/PRN, Suction toothbrush (09/02/251099) Progress: declining SWALLOW EVALUATION (Last 72 Hours) HELICOPTER OFFICER Adult Swallow Evaluation Row Name 09/02/25109909/01/25 1530 08/31/25 0815 Rehab Evaluation Document Type [...] Pertinent History Of Current Problem See previous HELICOPTER OFFICER notes -RS See previous HELICOPTER OFFICER notes -SM See previous HELICOPTER OFFICER notes. Pt has been cleared for PO [...] -- 3L -RS Eating/Swallowing Skills fed by HELICOPTER OFFICER;needed assist;self-fed -RS self-fed;fed by HELICOPTER OFFICER;needed assist -SM fed by staff/caregiver -RS Positioning [...] -RS Secretion Rating Scale (Steven et al. 1996) -- -- 2- secretions initially outside the [...] Signs of aspiration;Silent aspiration;Risks of aspiration -RS HELICOPTER OFFICER Evaluation Clinical Impression HELICOPTER OFFICER Swallowing Diagnosis mild;oral dysphagia;mod-severe;pharyngeal dysphagia -RS -- moderate;oral dysphagia;pharyngeal dysphagia -RS Functional Impact risk of aspiration/pneumonia -RS -- risk of aspiration/pneumonia -RS Rehab Potential/Prognosis, Swallowing good, to achieve stated therapy goals -RS -- good, to achievestated therapy goals -RS Swallow Criteria for Skilled Therapeutic Interventions Met demonstrates skilled criteria -RS -- demonstrates skilled criteria -RS HELICOPTER OFFICER Treatment Clinical Impressions Treatment Assessment (HELICOPTER OFFICER) -- toleration of diet;clinical signs of;aspiration - -- Treatment Assessment Comments (HELICOPTER OFFICER) -- Pt requesting thin liquids. Explained justification of thickened liquids -SM -- Daily Summary of Progress (HELICOPTER OFFICER) -- progress toward functional goals is good -SM -- Plan for Continued Treatment (HELICOPTER OFFICER) -- continue treatment per plan of care -SM -- Care Plan Review -- evaluation/treatment results reviewed;patient/other agree to care plan - -- Recommendations Therapy Frequency (Swallow) 5 days per week -RS 5 days per week -SM 5 days per week -RS Predicted Duration Therapy Intervention (Days) 2 weeks -RS 2 weeks -SM 2 weeks -RS HELICOPTER OFFICER Diet Recommendation mechanical ground textures;no mixed consistencies;honey [...] toothbrush -SM Oral Care BID/PRN;Suction toothbrush -RS HELICOPTER OFFICER Rec. for Method of Medication Administration meds whole;with thick liquids;with puree -RS meds whole;with thick liquids -SM meds whole;with thick liquids;meds via alternate route -RS Monitor for Signs of Aspiration yes;notify HELICOPTER OFFICER if any concerns -RS yes;notify HELICOPTER OFFICER if any concerns -SM yes;notify HELICOPTER OFFICER if any concerns -RS Anticipated Discharge Disposition (HELICOPTER OFFICER) inpatient rehabilitation facility -RS inpatient rehabilitation facility -SM inpatient rehabilitation facility -RS User Jung (r) = Recorded By, (t) = Taken By, (c) = Cosigned By Initials Name Effective Dates RS Andrea Dukes MS CCC-HELICOPTER OFFICER 07/03/23 - Nora Weiner MS CF-HELICOPTER OFFICER 03/24/25 - EDUCATION The patient has been educated in the following areas: Dysphagia (Swallowing Impairment) Modified Diet Instruction. HELICOPTER OFFICER GOALS Row Name 09/02/25 1100 09/01/25 1530 08/31/25 0815 (LTG) Patient will demonstrate functional swallow for Diet Texture (Demonstrate functional swallow) regular textures -RS regular textures -SM regular textures -RS Liquid viscosity (Demonstrate functional swallow) thin liquids -RS thin liquids -SM thin liquids -RS [place] (Demonstrate functional swallow) independently (over 90% accuracy) [...] signs of distress;with adequate oral prep/transit/clearance -RS [place] (Tolerate trials) with minimal cues (75-90% accuracy) -RS with minimal cues (75-90% accuracy) -SM with minimal cues (75-90% accuracy) -RS Time Frame (Tolerate trials) 1 week -RS 1 week -SM 1 week -RS Progress/Outcomes (Tolerate trials) goal revised this date -RS goal revised this - new goal -RS Comment (Tolerate trials) -- Upgraded to [facility] grnd solids -SM -- (STG) Patient [...] signs of distress;with adequate oral prep/transit/clearance -RS [place] (Tolerate therapeutic trials) with minimal cues (75-90% [...] w/ solid, but OK to upgrade to [facility] grnd and monitor tolerance -SM -- (STG) Lingual Strengthening Goal 1 (HELICOPTER OFFICER) Activity (Lingual Strengthening Goal 1, HELICOPTER OFFICER) increase tongue back strength -RS increase tongue backstrength -SM increase tongue back strength -RS Increase Tongue Back Strength lingual resistance exercises -RS lingual resistance exercises -SM lingual resistance exercises -RS [place]/Accuracy (Lingual Strengthening Goal 1, HELICOPTER OFFICER) with minimal cues (75- 90% accuracy) -RS with minimal cues (75-90% accuracy) -SM with minimal cues (75- 90% accuracy) -RS Time Frame (Lingual Strengthening Goal 1, HELICOPTER OFFICER) 1 week -RS 1 week -SM 1 week -RS Progress/Outcomes (Lingual Strengthening Goal 1, HELICOPTER OFFICER) goal ongoing -RS continuing progress toward goal -SM new goal -RS (STG) Pharyngeal Strengthening Exercise Goal 1 (HELICOPTER OFFICER) Activity (Pharyngeal Strengthening Goal 1, HELICOPTER OFFICER) increase timing;increase superior movement of the hyolaryngeal [...] Retraction mike -RS mike -SM mike -RS [place]/Accuracy (Pharyngeal Strengthening Goal 1, HELICOPTER OFFICER) with minimal cues (75-90% accuracy) -RS with minimal cues (75-90% accuracy) -SM with minimal cues (75-90% accuracy) -RS Time Frame (Pharyngeal Strengthening Goal 1, HELICOPTER OFFICER) 1 week -RS 1 week -SM 1 week -RS Progress/Outcomes (Pharyngeal Strengthening Goal 1, HELICOPTER OFFICER) goal ongoing -RS continuing progress toward goal -SM new goal -RS Comment (Pharyngeal Strengthening Goal 1, HELICOPTER OFFICER) -- Demo'd all and left at bedside - -- User Jung (r) = Recorded By, (t) = Taken By, (c) = Cosigned By Initials Name Provider Type RS Andrea Dukes MS CCC-HELICOPTER OFFICER Speech and Language Pathologist Nora Weiner MS CF-HELICOPTER OFFICER Speech and Language Pathologist Time Calculation: Time Calculation- HELICOPTER OFFICER Row Name 09/02/25 1302 Time Calculation- HELICOPTER OFFICER HELICOPTER OFFICER Start Time 1100 -RS HELICOPTER OFFICER Received On 09/02/25 -RS Untimed Charges 80238-IS Motion Fluoro Eval Swallow Minutes 61 -RS Total Minutes Untimed Charges Total Minutes 61 -RS Total Minutes 61 -RS User Jung (r) = Recorded By, (t) = Taken By, (c) = Cosigned By Initials Name Provider Type RS Andrea Dukes MS CCC-HELICOPTER OFFICER Speech and Language Pathologist Therapy Charges for Today Code Description Service Date Service Provider Modifiers Qty [id number] HC ST MOTION FLUORO EVAL SWALLOW 4 09/02/2025 Andrea Dukes MS CCC- SLP GN 1 MS MARIA INES Chatterjee 09/02/2025 * Case Management/Social Work - Daryl Schwab RN - 09/02/2025 12:36 PM EST Continued Stay Note [facility] Patient Name: Loc Thurmna Today's Date: 09/02/2025 Admit Date: 08/27/2025 Plan: rehab [facility] Discharge Plan Row Name 09/02/25 1231 Plan Plan rehab [facility] Patient/Family in Agreement with Plan yes Plan Comments Discussed in MDR, speech f/u today. PT/OT today. Per OR notes, will f/u on Friday. I updated Ella @ [facility] in [place], [place] that OR is following up w/him on Friday so d/c will be early next week. Son was interested in cost of transportation to [facility], I called Karel @ [employer] wheelchair van is base of $125 plue $5 each mile. Son stated that either he or may need wheelchair transport and if that is the cost it is what it is. I will fax updated notes to Ella from today to [phone] and I will f/u w/her onay her contact number is [phone]. DC plan is [facility] may need wheelchair van transportation vs son transporting. CM will continue to follow. Final Discharge Disposition Code 62 - inpatient rehab facility Discharge Codes No documentation. Expected Discharge Date and Time Expected Discharge Date Expected Discharge Time Sep 06, 2025 Daryl Schwab, RN * Therapy Treatment Note - Rhianna [...] INTRAOPERATIVE CHOLANGIOGRAM; Surgeon: Hermes Jaramillo MD; Location: [facility]; Service: General; Laterality: N/A; COLONOSCOPY HERNIA REPAIR [...] Row Name 09/02/25 1143 Sit-Stand Transfer Sit-Stand [place] (Transfers) minimum assist (75% patient effort);1 person assist;verbal cues -LM Assistive Device (Sit-Stand Transfers) walker, front-wheeled -LM Comment, (Sit-Stand Transfer) Vc's for hand placement. Increased time/effort needed. -LM Row Name 09/02/25 1143 Gait/Stairs (Locomotion) [place] Level (Gait) minimum assist (75% patient effort);1 [...] - Ankle AROM (Therapeutic Exercise) bilateral;dorsiflexion;plantarflexion;sitting;10 repetitions -LM [...] Therapist Physical Therapy Education Title: PT OT HELICOPTER OFFICER Therapies (In Progress) Topic: Physical Therapy (In [...] Re-Cert Due Date 09/09/25 -LM Timed Charges 87448 - PT Therapeutic Exercise Minutes 16 -LM 38301 - Gait Training Minutes 10 -LM Total Minutes Timed Charges Total Minutes 26 -LM Total Minutes 26 -LM User Jung (r) = Recorded By, (t) = Taken By, (c) = Cosigned By Initials Name Provider Type LM Rhianna Tilley, PT Physical Therapist Therapy Charges for Today Code Description Service Date Service Provider Modifiers Qty [id number] HC GAIT TRAINING EA 15 MIN 09/02/2025 Rhianna Tilley, PT GP 1 [id number] HC PT THER PROC EA 15 MIN 09/02/2025 Rhianna Tilley, PT GP 1 PT G-Codes Outcome Measure Options: AM-PAC 6 Clicks Basic Mobility (PT) AM-PAC 6 Clicks Score (PT): 15 AM-PAC 6 Clicks Score (OT): 13 PT Discharge Summary Anticipated Discharge Disposition (PT): inpatient rehabilitation facility Rhianna Tilley PT 09/02/2025 * Therapy Treatment Note - Patsy Abernathy OT - 09/02/2025 7:40 AM EST Images [...] INTRAOPERATIVE CHOLANGIOGRAM; Surgeon: Hermes Jaramillo MD; Location: [facility]; Service: General; Laterality: N/A; COLONOSCOPY HERNIA REPAIR [...] Cosigned By Initials Name Provider Type AC Patys Abernathy OT Occupational Therapist Mobility/ADL's Row Name 09/02/25 0843 Bed Mobility Bed Mobility supine-sit - Supine-Sit [place] (Bed Mobility) moderate assist (50% patient effort);verbal [...] sit-stand transfer;toilet transfer - Row Name 09/02/25 Bed-Chair Transfer Bed-Chair [place] (Transfers) verbal cues;minimum assist (75% patient effort) - Assistive Device (Bed-Chair Transfers) walker, front-wheeled -AC Comment, (Bed-Chair Transfer) increased time and effort, tremulous - Row Name 09/02/25842 Sit-Stand Transfer Sit-Stand [place] (Transfers) minimum assist (75% patient effort);verbal cues - Assistive Device (Sit-Stand Transfers) walker, front-wheeled -AC Comment, (Sit-Stand Transfer) VCs for hand placement and to place both feet in walker - Row Name 09/02/25 Toilet Transfer [place] Level (Toilet Transfer) minimum assist (75% patient [...] Row Name 09/02/25842 Lower Body Dressing Assessment/Training [place] Level (Lower Body Dressing) don;socks;dependent (less than 25% patient effort) - Position (Lower Body Dressing) supine - Row Name 09/02/25842 Grooming Assessment/Training [place] Level (Grooming) hair care, combing/brushing;oral care regimen;wash face, hands;standby assist - Position (Grooming) edge of bed sitting - Comment, (Grooming) bed pushed up to sink for grooming per pt request - Row Name 09/02/25842 Toileting Assessment/Training [place] Level (Toileting) adjust/manage clothing;perform perineal hygiene;maximum assist (25% patient effort) - Assistive Devices (Toileting) commode, bedside without drop arms -AC Position (Toileting) supported standing -AC User Jung (r) = Recorded By, (t) = Taken By, (c) = Cosigned By Initials Name Provider Type Patsy Molina, ARY Occupational Therapist Obj/Interventions Row Name 09/02/25 0848 [...] Provider Type Patsy Molina, ARY Occupational Therapist Goals/Plan No documentation. Clinical Impression Row Name 09/02/25 0849 Pain Assessment Pretreatment Pain Rating 0/10 - no pain -AC Posttreatment Pain Rating 0/10 - no pain -AC Row Name 09/02/25 0849 Plan of Care Review Plan of Care Reviewed With patient -AC Progress improving - Outcome Evaluation Pt progressed [...] Provider Type Patsy Abernathy, OT Occupational Therapist Outcome Measures Row Name [...] Therapist Occupational Therapy Education Title: PT OT HELICOPTER OFFICER Therapies (In Progress) Topic: Occupational Therapy (In [...] Jung Initials Effective Dates Name Provider Type [facility] 11/22/22 - Patsy Abernathy, OT Occupational Therapist [...] Re-Cert Due Date 09/09/25 -AC Timed Charges 64904 - OT Therapeutic Activity Minutes 15 -AC 65230 - OT Self Care/Mgmt Minutes 40 -AC Total Minutes Timed Charges Total Minutes 55 -AC Total Minutes 55 -AC User Jung (r) = Recorded By, (t) = Taken By, (c) = Cosigned By Initials Name Provider Type AC Patsy Abernathy, OT Occupational Therapist Therapy Charges for Today Code Description Service Date Service Provider Modifiers Qty [id number] HC OT THERAPEUTIC ACT EA 15 MIN 09/02/2025 Patsy Abernathy OT GO 1 [id number] HC OT SELF CARE/MGMT/TRAIN EA 15 MIN 09/02/2025 Patsy Abernathy OT GO 3 Patsy Abernathy OT 09/02/2025 * Therapy Treatment Note - Nora Montano MS CF-HELICOPTER OFFICER - 09/01/2025 4:11 PM EST Images from [...] INTRAOPERATIVE CHOLANGIOGRAM; Surgeon: Hermes Jaramillo MD; Location: [facility]; Service: General; Laterality: N/A; COLONOSCOPY HERNIA REPAIR HELICOPTER OFFICER Recommendation and Plan Recommended discharge disposition is based on the functional assessment performed by PT/OT/Speech therapy (as applicable) and may not reflect the medical necessity determined by your provider or services covered by an individual patient's insurance plan or patient resource. HELICOPTER OFFICER Diet Recommendation: mechanical ground textures, nectar thick liquids, ice chips between meals after oral care, with supervision (09/01/251529) Recommended Precautions and Strategies: upright posture during/after eating, general aspiration precautions (09/01/251529) HELICOPTER OFFICER Rec. for Method of Medication Administration: meds whole, with thick liquids (09/01/251529) Monitor for Signs of Aspiration: yes, notify HELICOPTER OFFICER if any concerns (09/01/251529) Recommended Diagnostics: reassess via FEES (09/01/251529) Anticipated Discharge Disposition (HELICOPTER OFFICER): inpatient rehabilitation facility (09/01/251529) Therapy Frequency (Swallow): 5 days per week (09/01/251529) Predicted Duration Therapy Intervention (Days): 2 weeks (09/01/251529) Oral Care Recommendations: Oral Care BID/PRN, Suction toothbrush (09/01/251529) Daily Summary of Progress (HELICOPTER OFFICER): progress toward functional goals is good (09/01/251529) Treatment Assessment (HELICOPTER OFFICER): toleration of diet, clinical signs of, aspiration (09/01/251529) Treatment Assessment Comments (HELICOPTER OFFICER): Pt requesting thin liquids. Explained justification of thickened liquids (09/01/251529) Plan for Continued Treatment (HELICOPTER OFFICER): continue treatment per plan of care (09/01/251529) SWALLOW EVALUATION (Last 72 Hours) HELICOPTER OFFICER Adult Swallow Evaluation Row Name 09/01/25 1530 08/31/25 0815 08/30/25 1005 Rehab Evaluation Document Type [...] Pertinent History Of Current Problem See previous HELICOPTER OFFICER notes -SM See previous HELICOPTER OFFICER notes. Pt has beencleared for PO diet by surgeon -RS Pt adm w/ new left lung mass who was transferred from [facility] 08/27/2025 for evaluation of possible pancreatitis and [...] dentures/partial in place;lower dentures/partial in place -RS edentulous -AC (r) IG (t) AC (c) [...] Respiratory Support Currently in Use room air -SM nasal cannula -RS nasal cannula -AC (r) IG (t) AC(c) O2 Liters -- 3L -RS -- Eating/Swallowing Skills self-fed;fed by HELICOPTER OFFICER;needed assist -SM fed by staff/caregiver -RS self-fed;fed by HELICOPTER OFFICER -AC (r) IG (t) AC (c) Positioning During Eating upright 90 degree;upright in chair -SM upright 90 degree;upright in bed -RS upright 90 degree;upright in chair -AC (r) IG (t) AC (c) Utensils Used straw -SM spoon;cup;straw -RS spoon;cup -AC (r) IG (t) [...] of aspiration;Silent aspiration;Risks of aspiration -RS -- HELICOPTER OFFICER Evaluation Clinical Impression HELICOPTER OFFICER Swallowing Diagnosis -- moderate;oral dysphagia;pharyngeal dysphagia -RS [...] criteria -AC (r) IG (t) AC (c) HELICOPTER OFFICER Treatment Clinical Impressions Treatment Assessment (HELICOPTER OFFICER) toleration of diet;clinical signs of;aspiration - -- -- Treatment Assessment Comments (HELICOPTER OFFICER) Pt requesting thin liquids. Explained justification of thickened liquids - -- -- Daily Summary of Progress (HELICOPTER OFFICER) progress toward functional goals is good - -- -- Plan for Continued Treatment (HELICOPTER OFFICER) continue treatment per plan of care - -- -- Care Plan Review evaluation/treatment results reviewed;patient/other agree to care plan - -- -- Recommendations Therapy Frequency (Swallow) 5 days per week -SM 5 days per week -RS -- Predicted Duration Therapy Intervention (Days) 2 weeks - 2 weeks -RS 2 weeks - AC (r) IG (t) AC (c) HELICOPTER OFFICER Diet Recommendation mechanical ground textures;nectar thick liquids;ice chips between meals after oral care, with supervision - puree;nectar thick liquids;other (see comments) PO diet at discretion of surgeon only -RS NPO - (r) IG (t) AC (c) Recommended Diagnostics reassess via FEES - -- FEES;other (see comments) When medically appropriate/ cleared by surgery. -AC (r) IG (t) AC (c) Recommended Precautions and Strategies upright posture during/after eating;general aspiration precautions - upright posture during/after eating;general aspiration precautions -RS -- Oral Care Recommendations Oral Care BID/PRN;Suction toothbrush - Oral Care BID/PRN;Suction toothbrush -RS Oral Care BID/PRN;Suction toothbrush - (r) IG (t) AC (c) HELICOPTER OFFICER Rec. for Method of Medication Administration meds whole;with thick liquids - meds whole;with thick liquids;meds via alternate route -RS meds via alternate route -AC (r) IG (t) AC (c) Monitor for Signs of Aspiration yes;notify HELICOPTER OFFICER if any concerns -SM yes;notify HELICOPTER OFFICER if any concerns -RS yes;notify HELICOPTER OFFICER if any concerns -AC (r) IG (t) AC (c) Anticipated Discharge Disposition (HELICOPTER OFFICER) inpatient rehabilitation facility -SM inpatient rehabilitation facility -RS inpatient rehabilitation facility -AC (r) IG (t) AC (c) User Jung (r) = Recorded By, (t) = Taken By, (c) = Cosigned By Initials Name Effective Dates AC Lea Echols, MS CCC-HELICOPTER OFFICER 11/22/22 - RS Andrea Dukes, MS CCC-HELICOPTER OFFICER 07/03/23 - Nora Weiner, MS CF-HELICOPTER OFFICER 03/24/25 - Alma Arshad, Speech Therapy Student 06/08/25 - EDUCATION The patient has been educated in the following areas: Dysphagia (Swallowing Impairment) Oral Care/Hydration Modified Diet Instruction. HELICOPTER OFFICER GOALS Row Name 09/01/25 1530 08/31/25 0815 (LTG) Patient will demonstrate functional swallow for Diet Texture (Demonstrate functional swallow) regular textures -SM regular textures -RS Liquid viscosity (Demonstrate functional swallow) thin liquids -SM thin liquids -RS [place] (Demonstrate functional swallow) independently (over 90% accuracy) -SM independently (over 90% accuracy) -RS Time Frame (Demonstrate functional swallow) 2 weeks -SM 2 weeks -RS Progress/Outcomes (Demonstrate functional swallow) continuing progress toward goal - new goal -RS (STG) Patient will tolerate trials of Consistencies Trialed (Tolerate trials) mechanical ground textures;nectar/ mildly thick liquids -SMpureed textures;nectar/ mildly thick liquids -RS Desired Outcome (Tolerate trials) without signs/symptoms of aspiration;without signs of distress;with adequate oral prep/transit/clearance -SM without signs/symptoms of aspiration;without signs of distress;with adequate oral prep/transit/clearance -RS [place] (Tolerate trials) with minimal cues (75-90% accuracy) -SM with minimal cues (75-90% accuracy) -RS Time Frame (Tolerate trials) 1 week -SM 1 week -RS Progress/Outcomes (Tolerate trials) goal revised this - new goal -RS Comment (Tolerate trials) Upgraded to [facility] solids -SM -- (STG) Patient will tolerate therapeutic trials of Consistencies Trialed (Tolerate therapeutic trials) soft to chew (chopped) textures;nectar/ mildly thick liquids -SM soft to chew (chopped) textures;nectar/ mildly thick liquids -RS Desired Outcome (Tolerate therapeutic trials) without signs/symptoms of aspiration;without signs ofdistress;with adequate oral prep/transit/clearance - SM without signs/symptoms of aspiration;withoutsigns of distress;with adequate oral prep/transit/clearance -RS [place] (Tolerate therapeutic trials) with minimal cues (75-90% [...] w/ solid, but OK to upgrade to [facility] and monitor tolerance -SM -- (STG) Lingual Strengthening Goal 1 (HELICOPTER OFFICER) Activity (Lingual Strengthening Goal 1, HELICOPTER OFFICER) increase tongue back strength -SM increase tongue backstrength -RS Increase Tongue Back Strength lingual resistance exercises -SM lingual resistance exercises -RS [place]/Accuracy (Lingual Strengthening Goal 1, HELICOPTER OFFICER) with minimal cues (75- 90% accuracy) -SM with minimal cues (75-90% accuracy) -RS Time Frame (Lingual Strengthening Goal 1, HELICOPTER OFFICER) 1 week -SM 1 week -RS Progress/Outcomes (Lingual Strengthening Goal 1, HELICOPTER OFFICER) continuing progress toward goal -SM new goal -RS (STG) Pharyngeal Strengthening Exercise Goal 1 (HELICOPTER OFFICER) Activity (Pharyngeal Strengthening Goal 1, HELICOPTER OFFICER) increase timing;increase superior movement of the hyolaryngeal [...] Tongue Base Retraction mike -SM mike -RS [place]/Accuracy (Pharyngeal Strengthening Goal 1, HELICOPTER OFFICER) with minimal cues (75-90% accuracy) -SM with minimal cues (75-90% accuracy) -RS Time Frame (Pharyngeal Strengthening Goal 1, HELICOPTER OFFICER) 1 week -SM 1 week -RS Progress/Outcomes (Pharyngeal Strengthening Goal 1, HELICOPTER OFFICER) continuing progress toward goal -SM new goal -RS Comment (Pharyngeal Strengthening Goal 1, HELICOPTER OFFICER) Demo'd all and left at bedside - -- User Jung (r) = Recorded By, (t) = Taken By, (c) = Cosigned By Initials Name Provider Type RS Andrea Dukes MS CCC-HELICOPTER OFFICER Speech and Language Pathologist Nora Weiner MS CF-HELICOPTER OFFICER Speech and Language Pathologist Time Calculation: Time Calculation- HELICOPTER OFFICER Row Name 09/01/25 1611 Time Calculation- HELICOPTER OFFICER HELICOPTER OFFICER Start Time 1530 - HELICOPTER OFFICER Received On 09/01/25 - Untimed Charges 21239-FG Treatment Swallow Minutes 38 -SM Total Minutes Untimed Charges Total Minutes 38 -SM Total Minutes 38 -SM User Jung (r) = Recorded By, (t) = Taken By, (c) = Cosigned By Initials Name Provider Type Nora Weiner MS CF-HELICOPTER OFFICER Speech and Language Pathologist Therapy Charges for Today Code Description Service Date Service Provider Modifiers Qty [id number] HC ST TREATMENT SWALLOW 3 09/01/2025 Nora Montano MS CF- HELICOPTER OFFICER GN 1 MS KATHERYN Jarvis 09/01/2025 * Case Management/Social Work - Daryl Schwab RN - 09/01/2025 2:20 PM EST Continued Stay Note [facility] Patient Name: Loc Thurman Today's Date: 09/01/2025 Admit Date: 08/27/2025 Plan: rehab Discharge Plan Row Name 09/01/25 1416 Plan Plan rehab Patient/Family in Agreement with Plan yes Plan Comments I had a call from Ella @ [facility] in [place], interested in Mr. Thurman for rehab. Her contact is [phone]. She is going to reach out to [...] - inpatient rehab facility Row Name 09/01/25 3141 Plan Plan rehab Patient/Family in Agreement with Plan yes Plan Comments Discussed in MDR, transferred from ICU to floor 11/12 pm, per MDR, voiding trials, NGdiscontinued, puree nectar diet. I met w/Mr. Thurman, his son, and niece in room to discuss d/c planning. I explained that a referral was faxed to [facility], which son stated was very close to his home. I printed a patient choice list for them to review w/acute/Skilled facilities, after discussion, son w/patient's permissions requested a referral to be sent to [facility] in [place], [place]. I calledand spoke w/Alejandra and faxed a referral to [phone]. CM will continue to follow and assist w/dc planning. Final Discharge Disposition Code 62 - inpatient rehab facility Discharge Codes No documentation. Daryl Schwab RN * Case Management/Social Work - Daryl Schwab RN - 09/01/2025 12:42 PM EST Continued Stay Note [facility] Patient Name: Loc Thurman Today's Date: 09/01/2025 Admit Date: 08/27/2025 Plan: rehab Discharge Plan Row Name 09/01/25 1238 Plan Plan rehab Patient/Family in Agreement with Plan yes Plan Comments Discussed in MDR, transferred from ICU to floor 08/31 pm, per MDR, voiding trials, NGdiscontinued, puree nectar diet. I met w/Mr. Thurman, his son, and niece in room to discuss d/c planning. I explained that a referral was faxed to [facility], which son stated was very close to his home. I printed a patient choice list for them to review w/acute/Skilled facilities, after discussion, son w/patient's permissions requested a referral to be sent to [facility] in [place], [place]. I calledand spoke w/Alejandra and faxed a referral to [phone]. CM will continue to follow and assist w/dc planning. Final Discharge Disposition Code 62 - inpatient rehab facility Discharge Codes No documentation. Daryl Schwab RN * Therapy Treatment Note - Radha Smith, ARY - 08/31/2025 1:07 PM EST Patient Name: [...] INTRAOPERATIVE CHOLANGIOGRAM; Surgeon: Hermes Jaramillo MD; Location: [facility]; Service: General; Laterality: N/A; COLONOSCOPY HERNIA REPAIR General Information Row Name 08/31/25 1338 OT Time and Intention Document Type therapy note (daily note) -AN Mode of Treatment occupational therapy -AN Row Name 08/31/25 1338 General Information Patient Profile Reviewed yes -AN [...] 08/31/25 1339 Bed Mobility Comment, (Bed Mobility) [facility] upon arrival -AN User Jung (r) = [...] Exercise) bilateral;flexion;extension;sitting;10 repetitions -AN Row Name 08/31/25 134 Motor Skills Therapeutic Exercise shoulder;elbow/forearm -AN Row Name 08/31/25 134 Balance Balance Assessment sitting static balance;sitting dynamic [...] No documentation. Clinical Impression Row Name 08/31/25 134 Pain Assessment Pretreatment Pain Rating 0/10 - no pain -AN Posttreatment Pain Rating 0/10 - no pain -AN [facility] Name 08/31/25 134 Plan of Care Review Plan of Care Reviewed With patient;son -AN Progress improving -AN Outcome Evaluation Pt continues to progress towards all OT goals, limited by weakness, confusion, and decreased activity tolerance. Pt tolerated seated UE ther-ex this session with AAROM/AROM. Cont POC. -AN Row Name 08/31/25 134 Therapy Plan Review/Discharge Plan (OT) Anticipated Discharge Disposition (OT) inpatient rehabilitation facility -AN Row Name 08/31/25 134 Positioning and Restraints Pre-Treatment Position sitting in chair/recliner -AN Post Treatment Position chair -AN In Chair notified nsg;reclined;call light within reach;encouraged to call for assist;exit alarm on;waffle cushion;with family/caregiver;on mechanical lift sling;legs elevated -AN User Jung (r) = Recorded By, (t) = Taken By, (c) = Cosigned By Initials Name Provider Type Radha Liao OT Occupational Therapist Outcome Measures Row Name 08/31/25 1347 How much help from another is currently [...] Type KG Flora Galvan, PT Physical Therapist Radha Liao, OT Occupational Therapist Tee Taylor, PT Student PT Student Occupational Therapy Education Title: PT OT HELICOPTER OFFICER Therapies (In Progress) Topic: Occupational Therapy (Done) Point: ADL training (Done) Learning Progress Summary Patient Acceptance, E, VU by JUAQUIN at 08/31/2025 1348 Acceptance, E, NR by CARLITOS at 08/30/2025 1147 Point: Home exercise program [...] OT Received On 08/31/25 -AN Timed Charges 05383 - OT Therapeutic Exercise Minutes 12 -AN Total Minutes Timed Charges Total Minutes 12 -AN Total Minutes 12 -AN User Jung (r) = Recorded By, (t) = Taken By, (c) = Cosigned By Initials Name Provider Type Radha Smith, OT Occupational Therapist Therapy Charges for Today Code Description Service Date Service Provider Modifiers Qty [id number] OT THER PROC EA 15 MIN 08/31/2025 Radha Smith OT GO 1 Radhanatanael Smith OT 08/31/2025 * MBS/VFSS/FEES - Andrea Dukes MS CCC-HELICOPTER OFFICER - 08/31/2025 9:54 AM EST Images from the original note were not included. Acute Care - Speech Language Pathology Swallow Re-Evaluation Basil Fiberoptic Endoscopic Evaluation of Swallowing (FEES) Patient [...] INTRAOPERATIVE CHOLANGIOGRAM; Surgeon: Hermes Jaramillo MD; Location: [facility]; Service: General; Laterality: N/A; COLONOSCOPY HERNIA REPAIR HELICOPTER OFFICER Recommendation and Plan Recommended discharge disposition is based on the functional assessment performed by PT/OT/Speech therapy (as applicable) and may not reflect the medical necessity determined by your provider or services covered by an individual patient's insurance plan or patient resource. HELICOPTER OFFICER Swallowing Diagnosis: moderate, oral dysphagia, pharyngeal dysphagia (08/31/25814) HELICOPTER OFFICER Diet Recommendation: puree, nectar thick liquids, other (see comments) (PO diet at discretion of surgeon only) (08/31/25814) Recommended Precautions and Strategies: upright posture during/after eating, general aspiration precautions (08/31/25814) HELICOPTER OFFICER Rec. for Method of Medication Administration: meds whole, with thick liquids, meds via alternate route (08/31/25814) Monitor for Signs of Aspiration: yes, notify HELICOPTER OFFICER if any concerns (08/31/25814) Swallow Criteria for Skilled Therapeutic Interventions Met: demonstrates skilled criteria () Anticipated Discharge Disposition (HELICOPTER OFFICER): inpatient rehabilitation facility (08/31/25814) Rehab Potential/Prognosis, Swallowing: good, to achieve stated therapy goals (08/31/25814) Therapy Frequency (Swallow): 5 days per week (08/31/25814) Predicted Duration Therapy Intervention (Days): 2 weeks (11/12/25 0815) Oral Care Recommendations: Oral Care BID/PRN, Suction toothbrush (08/31/25 0815) Progress: improving SWALLOW EVALUATION (Last 72 Hours) HELICOPTER OFFICER Adult Swallow Evaluation Row Name 08/31/25 0815 08/30/25 1004 Rehab Evaluation Document Type re-evaluation -RS evaluation [...] Pertinent History Of Current Problem See previous HELICOPTER OFFICER notes. Pt has been cleared for PO [...] Skills fed by staff/caregiver -RS self-fed;fed by HELICOPTER OFFICER -AC (r) IG (t) AC (c) Positioning [...] of aspiration;Silent aspiration;Risks of aspiration -RS -- HELICOPTER OFFICER Evaluation Clinical Impression HELICOPTER OFFICER Swallowing Diagnosis moderate;oral dysphagia;pharyngeal dysphagia -RS suspected [...] weeks -AC (r) IG (t) AC (c) HELICOPTER OFFICER Diet Recommendation puree;nectar thick liquids;other (see comments) [...] toothbrush -AC (r) IG (t) AC (c) HELICOPTER OFFICER Rec. for Method of Medication Administration meds whole;with thick liquids;meds via alternate route -RS meds via alternate route -AC (r) IG (t) AC (c) Monitor for Signs of Aspiration yes;notify HELICOPTER OFFICER if any concerns -RS yes;notify HELICOPTER OFFICER if any concerns -AC (r) IG (t) AC (c) Anticipated Discharge Disposition (HELICOPTER OFFICER) inpatient rehabilitation facility -RS inpatient rehabilitation facility -AC (r) IG (t) AC (c) User Jung (r) = Recorded By, (t) = Taken By, (c) = Cosigned By Initials Name Effective Dates Lea May, MS [facility]-HELICOPTER OFFICER 11/22/22 - Andrea Mitchell MS [facility]-HELICOPTER OFFICER 07/03/23 - Alma Arshad, Speech Therapy Student 06/08/25 - EDUCATION The patient has been educated in the following areas: Dysphagia (Swallowing Impairment) Modified Diet Instruction. HELICOPTER OFFICER GOALS Row Name 08/31/25 0815 (LTG) Patient will demonstrate functional swallow for Diet Texture (Demonstrate functional swallow) regular textures -RS Liquid viscosity (Demonstrate functional swallow) thin liquids -RS [place] (Demonstrate functional swallow) independently (over 90% accuracy) -RS Time Frame (Demonstrate functional swallow) 2 weeks -RS Progress/Outcomes (Demonstrate functional swallow) new goal -RS (STG) Patient will tolerate trials of Consistencies Trialed (Tolerate trials) pureed textures;nectar/ mildly thick liquids -RS Desired Outcome (Tolerate trials) without signs/symptoms of aspiration;without signs of distress;with adequate oral prep/transit/clearance -RS [place] (Tolerate trials) with minimal cues (75-90% accuracy) -RS Time Frame (Tolerate trials) 1 week -RS Progress/Outcomes (Tolerate trials) new goal -RS (STG) Patient will tolerate therapeutic trials of Consistencies Trialed (Tolerate therapeutic trials) soft to chew (chopped) textures;nectar/ mildly thick liquids -RS Desired Outcome (Tolerate therapeutic trials) without signs/symptoms of aspiration;without signs ofdistress;with adequate oral prep/transit/clearance -RS [place] (Tolerate therapeutic trials) with minimal cues (75-90% accuracy) -RS Time Frame (Tolerate therapeutic trials) 1 week -RS Progress/Outcomes (Tolerate therapeutic trials) new goal -RS (STG) Lingual Strengthening Goal 1 (HELICOPTER OFFICER) Activity (Lingual Strengthening Goal 1, HELICOPTER OFFICER) increase tongue back strength -RS Increase Tongue Back Strength lingual resistance exercises -RS [place]/Accuracy (Lingual Strengthening Goal 1, HELICOPTER OFFICER) with minimal cues (75- 90% accuracy) -RS Time Frame (Lingual Strengthening Goal 1, HELICOPTER OFFICER) 1 week -RS Progress/Outcomes (Lingual Strengthening Goal 1, HELICOPTER OFFICER) new goal -RS (STG) Pharyngeal Strengthening Exercise Goal 1 (HELICOPTER OFFICER) Activity (Pharyngeal Strengthening Goal 1, HELICOPTER OFFICER) increase timing;increase superior movement of the hyolaryngeal [...] -RS Increase Tongue Base Retraction mike -RS [place]/Accuracy (Pharyngeal Strengthening Goal 1, HELICOPTER OFFICER) with minimal cues (75-90% accuracy) -RS Time Frame (Pharyngeal Strengthening Goal 1, HELICOPTER OFFICER) 1 week -RS Progress/Outcomes (Pharyngeal Strengthening Goal 1, HELICOPTER OFFICER) new goal -RS User Jung (r) = Recorded By, (t) = Taken By, (c) = Cosigned By Initials Name Provider Type RS Andrea Dukes MS [facility]-HELICOPTER OFFICER Speech and Language Pathologist Time Calculation: Time Calculation- HELICOPTER OFFICER Row Name 08/31/25 0953 Time Calculation- HELICOPTER OFFICER HELICOPTER OFFICER Start Time 0815 -RS HELICOPTER OFFICER Received On 08/31/25 -RS Untimed Charges 46163-[id number] Fiberoptic Endo Eval Swallow Minutes 105 -RS Total Minutes Untimed Charges Total Minutes 105 -RS Total Minutes 105 -RS User Jung (r) = Recorded By, (t) = Taken By, (c) = Cosigned By Initials Name Provider Type RS Andrea Dukes MS CCC-HELICOPTER OFFICER Speech and Language Pathologist Therapy Charges for Today Code Description Service Date Service Provider Modifiers Qty [id number] HC ST FIBEROPTIC ENDO EVAL SWALL 7 08/31/2025 Andrea Dukes MS CCC- HELICOPTER OFFICER GN 1 MS MARIA INES Chatterjee 08/31/2025 * Therapy Treatment Note - Tee [...] INTRAOPERATIVE CHOLANGIOGRAM; Surgeon: Hermes Jaramillo MD; Location: [facility]; Service: General; Laterality: N/A; COLONOSCOPY HERNIA REPAIR [...] Mobility Bed Mobility supine-sit (P) -SULAIMAN Supine-Sit [place] (Bed Mobility) moderate assist (50% patient effort);2 person assist;verbal cues (P) -SULAIMAN Assistive Device (Bed Mobility) bed rails;head of bed elevated;repositioning sheet (P) -SULAIMAN Comment, (Bed Mobility) VCs for sequencing, assist at trunk and BLEs, increased time and effort, R lateral lean sitting EOB (P) -SULAIMAN Row Name 08/31/25 1027 Bed-Chair Transfer Bed-Chair [place] (Transfers) moderate assist (50% patient effort);2 person assist;verbal cues(P) -SULAIMAN Assistive Device (Bed-Chair Transfers) other (see comments) (P) BUE support -SULAIMAN Comment, (Bed-Chair Transfer) VCs for sequencing (P) -SULAIMAN Row Name 08/31/25 1027 Sit-Stand Transfer Sit-Stand [place] (Transfers) minimum assist (75% patient effort);2 person assist;verbal cues (P) -SULAIMAN Assistive Device (Sit-Stand Transfers) other (see comments) (P) B UE support -SULAIMAN Comment, (Sit-Stand Transfer) VCs for upright posture (P) -SULAIMAN Row Name 08/31/25 1027 Gait/Stairs (Locomotion) [place] Level (Gait) moderate assist (50% patient effort);2 person assist;verbal cues (P) -SULAIMAN Assistive Device (Gait) other (see comments) (P) B GLASS BEVELER -SULAIMAN Distance in Feet (Gait) 16 (P) [...] IPPT. Pt amb 16 ft w/ B GLASS BEVELER modAx2, further mobility limited by weakness and fatigue. Rec d/c IRF once medically ready. (P) -SULAIMAN Row Name 11/12/25 1033 Vital Signs Pre Systolic BP Rehab [...] = Cosigned By Initials Name Provider Type SULAIMANTee Basilio, PT Student PT Student Outcome Measures Row [...] Student Physical Therapy Education Title: PT OT HELICOPTER OFFICER Therapies (In Progress) Topic: Physical Therapy (In [...] Received On 08/31/25 (P) -SULAIMAN Timed Charges 84069 - PT Therapeutic Activity Minutes 24 (P) -SULAIMAN Total Minutes Timed Charges Total Minutes 24 (P) -SULAIMAN Total Minutes 24 (P) -SULAIMAN User Jung (r) = Recorded By, (t) = Taken By, (c) = Cosigned By Initials Name Provider Type Tee Taylor, PT Student PT Student Therapy Charges for Today Code Description Service Date Service Provider Modifiers Qty [id number] HC PT THERAPEUTIC ACT EA 15 MIN [...] 08/31/2025 8:32 AM EST Continued Stay Note [facility] Patient Name: Loc Thurman Today's Date: 08/31/2025 Admit Date: 08/27/2025 Plan: [facility] SNF Discharge Plan Row Name 08/31/25 0830 Plan Plan [facility] Patient/Family in Agreement with Plan yes Plan Comments Spoke with patient at bedside. Patient requested [facility] for rehab. CM faxed a referral to [facility] today. CM will continuie to follow. Final Discharge Disposition Code 03 - detention facility (SNF) Discharge Codes No documentation. Félix Azul RN * Therapy Evaluation - Alma Aiken, Speech Therapy Student - 08/30/2025 11:22 AM EST Images from the original note were not included. Acute Care - Speech Language Pathology Swallow Initial Evaluation [facility] Clinical Swallow Evaluation Patient Name: Loc Thurman : 1940 Today's [...] INTRAOPERATIVE CHOLANGIOGRAM; Surgeon: Hermes Jaramillo MD; Location: [facility]; Service: General; Laterality: N/A; COLONOSCOPY HERNIA REPAIR HELICOPTER OFFICER Recommendation and Plan Recommended discharge disposition is based on the functional assessment performed by PT/OT/Speech therapy (as applicable) and may not reflect the medical necessity determined by your provider or services covered by an individual patient's insurance plan or patient resource. HELICOPTER OFFICER Swallowing Diagnosis: (P) suspected pharyngeal dysphagia (08/30/251004) HELICOPTER OFFICER Diet Recommendation: (P) NPO (08/30/251004) HELICOPTER OFFICER Rec. for Method of Medication Administration: (P) meds via alternate route (08/30/251004) Monitor for Signs of Aspiration: (P) yes, notify HELICOPTER OFFICER if any concerns (08/30/251004) Recommended Diagnostics: (P) FEES, other (see comments) (When medically appropriate/ cleared by surgery.) (08/30/251004) Swallow Criteria for Skilled Therapeutic Interventions Met: (P) demonstrates skilled criteria (08/30/251004) Anticipated Discharge Disposition (HELICOPTER OFFICER): (P) inpatient rehabilitation facility (08/30/251004) Rehab Potential/Prognosis, Swallowing: (P) good, to achieve stated therapy goals (08/30/251004) Predicted Duration Therapy Intervention (Days): (P) 2 weeks (11/11/25 1005) Oral Care Recommendations: (P) Oral Care BID/PRN, Suction toothbrush (08/30/25 1005) SWALLOW EVALUATION (Last 72 Hours) HELICOPTER OFFICER Adult Swallow Evaluation Row Name 08/30/25 1005 Rehab Evaluation Document Type evaluation (P) -IG [...] cannula (P) -IG Eating/Swallowing Skills self-fed;fed by HELICOPTER OFFICER (P) -IG Positioning During Eating upright 90 [...] trials okay'd by RN and (P) -IG HELICOPTER OFFICER Evaluation Clinical Impression HELICOPTER OFFICER Swallowing Diagnosis suspected pharyngeal dysphagia (P) -IG Functional Impact risk of aspiration/pneumonia;risk of malnutrition;risk of dehydration (P) -IG Rehab Potential/Prognosis, Swallowing good, to achieve stated therapy goals (P) -IG Swallow Criteria for Skilled Therapeutic Interventions Met demonstrates skilled criteria (P) -IG Recommendations Predicted Duration Therapy Intervention (Days) 2 weeks (P) -IG HELICOPTER OFFICER Diet Recommendation NPO (P) -IG Recommended Diagnostics FEES;other (see comments) (P) When medically appropriate/ cleared by surgery. -IG Oral Care Recommendations Oral Care BID/PRN;Suction toothbrush (P) -IG HELICOPTER OFFICER Rec. for Method of Medication Administration meds via alternate route (P) -IG Monitor for Signs of Aspiration yes;notify HELICOPTER OFFICER if any concerns (P) -IG Anticipated Discharge Disposition (HELICOPTER OFFICER) inpatient rehabilitation facility (P) -IG User Jung (r) = Recorded By, (t) = Taken By, (c) = Cosigned By Initials Name Effective Dates Alma Aiken, Speech Therapy Student 06/08/25 - EDUCATION The patient has been educated in the following areas: Dysphagia (Swallowing Impairment) Oral Care/Hydration. Time Calculation: Time Calculation- HELICOPTER OFFICER Row Name 08/30/25 2316 Time Calculation- HELICOPTER OFFICER HELICOPTER OFFICER Start Time 1005 (P) -IG HELICOPTER OFFICER Received On 08/30/25 (P) -IG Untimed Charges 42678-[id number] Eval Oral Pharyng Swallow Minutes 55 (P) -IG Total Minutes Untimed Charges Total Minutes 55 (P) -IG Total Minutes 55 (P) -IG User Jung (r) = Recorded By, (t) = Taken By, (c) = Cosigned By Initials Name Provider Type IG Alma Aiken, Speech Therapy Student HELICOPTER OFFICER Student Therapy Charges for Today Code Description Service Date Service Provider Modifiers Qty [id number] HC ST EVAL ORAL PHARYNG SWALLOW 4 08/30/2025 Alma Aiken Speech Therapy Student GN1 Alma Aiken Speech Therapy Student 08/30/2025 Cosigned by Lea Echols MS CCC-HELICOPTER OFFICER at 08/30/2025 11:58 AM EST Associated attestation - Lea Echols MS CCC-HELICOPTER OFFICER - 08/30/2025 11:58 AM EST Lea Echols MS CCC-HELICOPTER OFFICER * Case Management/Social Work - Félix Azul, RN - 08/30/2025 11:14 AM EST Continued Stay Note [facility] Patient Name: Loc Thurman Today's Date: [...] or self-care Discharge Codes No documentation. Félix Azul, RN * Therapy Evaluation - Aury Fitzgerald [...] INTRAOPERATIVE CHOLANGIOGRAM; Surgeon: Hermes Jaramillo MD; Location: [facility]; Service: General; Laterality: N/A; COLONOSCOPY HERNIA REPAIR [...] Bed Mobility Bed Mobility supine-sit - Supine-Sit [place] (Bed Mobility) moderate assist (50% patient effort);2 [...] mod Ax2 for STS & SPT from [id number] but req max Ax2 for SPT from [id number]. - Row Name 08/30/25 1141 Bed-Chair Transfer Bed-Chair [place] (Transfers) moderate assist (50% patient effort);2 person assist;verbal cues- Assistive Device (Bed-Chair Transfers) other (see comments) BUE support - Row Name 08/30/25 1141 Sit-Stand Transfer Sit-Stand [place] (Transfers) moderate assist (50% patient effort);2 person assist;verbal cues- Assistive Device (Sit-Stand Transfers) other (see comments) - Row Name 08/30/25 1141 Stand-Sit Transfer Stand-Sit [place] (Transfers) moderate assist (50% patient effort);2 person assist;verbal cues- Assistive Device (Stand-Sit Transfers) other (see comments) - Row Name 08/30/25 1141 Toilet Transfer Type (Toilet Transfer) sit-stand;stand-sit;stand pivot/stand step - [place] Level (Toilet Transfer) maximum assist (25% patient effort);2 person assist;verbal cues - Assistive Device (Toilet Transfer) commode, bedside without drop arms -[facility] Name 08/30/25 1141 Activities of Daily Living BADL Assessment/Intervention lower body dressing;upper body dressing -[facility] 08/30/25 1141 Lower Body Dressing Assessment/Training [place] Level (Lower Body Dressing) don;socks;dependent (less than 25% patient effort) - Position (Lower Body Dressing) supine -[facility] 08/30/25 1141 Upper Body Dressing Assessment/Training [place] Level (Upper Body Dressing) don;pajama/robe;maximum assist (25% patient effort) - Position (Upper Body Dressing) edge of bed sitting - User Jung (r) = Recorded By, (t) = Taken By, (c) = Cosigned By Initials Name Provider Type Aury Fitzgerald OT Occupational Therapist Obj/Interventions [facility] 08/30/25 1145 Sensory Assessment (Somatosensory) Sensory Assessment (Somatosensory) UE sensation intact -[facility] 08/30/25 1145 Vision Assessment/Intervention Visual Impairment/Limitations WFL -[facility] 08/30/25 1145 Range of Motion Comprehensive General Range of Motion bilateral upper extremity ROM WF -[facility] 08/30/25 1145 Strength Comprehensive (MMT) General Manual Muscle Testing (MMT) Assessment upper extremity strength deficits identified - Comment, General Manual Muscle Testing (MMT) Assessment BUE grossly 4-/5 -[facility] 08/30/25 1145 Balance Balance Assessment sitting [...] Type Aury Fitzgerald OT Occupational Therapist Goals/Plan [facility] 08/30/25 1147 Transfer Goal 1 (OT) Activity/Assistive Device (Transfer Goal 1, OT) jud-tb-dngxw/nasdf-kg-exk;toilet;walker, rolling - [place] Level/Cues Needed (Transfer Goal 1, OT) standby assist -[facility] Time Frame (Transfer Goal 1, OT) retirement goal (LTG);10 days -[facility] Progress/Outcome (Transfer Goal 1, OT) goal ongoing - Row Name 08/30/25 1149 Toileting Goal 1 (OT) Activity/Device (Toileting Goal 1, OT) adjust/manage clothing;perform perineal hygiene;commode;grabbar/safety frame - [place] Level/Cues Needed (Toileting Goal 1, OT) standby assist -[facility] Time Frame (Toileting Goal 1, OT) short term goal (STG);5 days -[facility] Progress/Outcome (Toileting Goal 1, OT) goal ongoing - Row Name 08/30/25 1142 Grooming Goal 1 (OT) Activity/Device (Grooming Goal 1, OT) hair care;oral care;wash face, hands - [place] (Grooming Goal 1, OT) standby assist -[facility] Time Frame (Grooming Goal 1, OT) retirement goal (LTG);10 days -[facility] Progress/Outcome (Grooming Goal 1, OT) goal ongoing - Row Name 08/30/25 1143 Therapy Assessment/Plan (OT) Planned Therapy Interventions (OT) activity tolerance training;adaptive equipment training;BADL retraining;functional balance retraining;IADL retraining;occupation/activity based interventions;patient/caregiver education/training;ROM/therapeutic exercise;strengthening exercise;transfer/mobility retraining - User Jung (r) = Recorded By, (t) = Taken By, (c) = Cosigned By Initials Name Provider Type Aury Fitzgerald OT Occupational Therapist Clinical Impression Row Name 08/30/25 1149 Pain Assessment Pain Location abdomen - Pain Side/Orientation generalized - Pain Management Interventions exercise or physical activity utilized;positioning techniques utilized - Response to Pain Interventions activity participation with tolerable pain - Additional Documentation Pain Scale: FACES Pre/Post-Treatment (Group) - Row Name 08/30/25 5359 Pain Scale: FACES Pre/Post-Treatment Pain: FACES Scale, Pretreatment 4-->hurts little more - Posttreatment Pain Rating 4-->hurts little more - Row Name 08/30/25 1145 Plan of Care Review Plan of Care Reviewed With patient;son - Outcome Evaluation Pt's ADL independence limited d/t generalized weakness, decrease functional endurance, balance deficits, and pain. Pt would benefit from continued skilled IPOT services to address current functional deficits. Rec IRF at d/c. - Row Name 08/30/25 1145 Therapy Assessment/Plan (OT) Patient/Family Therapy Goal Statement (OT) Return to PLOF - Rehab Potential (OT) good - Criteria for Skilled Therapeutic Interventions Met (OT) yes;skilled treatment is necessary - Therapy Frequency (OT) daily - Predicted Duration of Therapy Intervention (OT) 10 days - Row Name 08/30/25 1145 Therapy Plan Review/Discharge Plan (OT) Anticipated Discharge [...] nasal cannula - Post SpO2 (%) 98 - O2 Delivery Post Treatment nasal cannula - Pre Patient Position Supine - Intra Patient Position Standing - Post Patient Position Sitting -[facility] Name 08/30/25 114 Positioning and Restraints Pre-Treatment Position in bed - Post Treatment Position bsc - On BS commode notified nsg;sitting;call light within reach;encouraged to call for assist;with family/caregiver - User Jung (r) = Recorded By, (t) = Taken By, (c) = Cosigned By Initials Name Provider Type Aury Gallegos, ARY Occupational Therapist Outcome Measures Row Name 08/30/25 1144 How much help from another is currently needed... Putting on and taking off regular lower body clothing? 1 -[facility] Bathing (including washing, rinsing, and drying) 2 -[facility] Toileting (which includes using toilet bed currie or urinal) 1 -MC Putting on and taking off regular upper body clothing 2 -[facility] Taking care of personal grooming (such as brushing teeth) 3 -MC Eating meals 3 -[facility] AM-PAC 6 Clicks Score (OT) 12 - Row Name 08/30/25 1147 Functional Assessment Outcome Measure Options AM-PAC 6 Clicks Daily Activity (OT) - User Jung (r) = Recorded By, (t) = Taken By, (c) = Cosigned By Initials Name Provider Type Aury Fitzgerald OT Occupational Therapist Occupational Therapy Education Title: PT OT HELICOPTER OFFICER Therapies (In Progress) Topic: Occupational Therapy (In Progress) Point: ADL training (In Progress) Learning Progress Summary Patient Acceptance, E, NR by at 08/30/2025 1147 Point: Precautions (In Progress) Learning Progress Summary Patient Acceptance, E, NR by at 08/30/2025 114 Point: Body mechanics (In Progress) Learning Progress Summary Patient Acceptance, E, NR by at 08/30/2025 114 User Jung Initials Effective Dates Name Provider [...] 1147 Time Calculation- OT OT Start Time 915 - OT Received On 08/30/25 - OT [...] Description Service Date Service Provider Modifiers Qty [id number] HC OT EVAL MOD COMPLEXITY 4 08/30/2025 Aury [...] INTRAOPERATIVE CHOLANGIOGRAM; Surgeon: Hermes Jaramillo MD; Location: [facility] OR; Service: General; Laterality: N/A; COLONOSCOPY HERNIA REPAIR General Information Row Name 08/30/25 1333 Physical Therapy Time and Intention Document Type evaluation -KG Mode of Treatment physical therapy -KG Row Name 08/30/25 1333 General Information Patient Profile Reviewed yes -KG Prior Level of Function independent:;all household mobility;gait;transfer;ADL's;dressing;bathing -KG Existing Precautions/Restrictions fall;oxygen therapy device and L/min;other (see comments) abdominal incision; confusion; NG -KG Barriers to Rehab medically complex;cognitive status;hearing deficit -KG Row Name 08/30/251332 Living Environment Current Living Arrangements home -KG People in Home alone -KG Row Name 08/30/251332 Home Main Entrance Number of Stairs, Main Entrance four -KG Stair Railings, Main Entrance none -KG Row Name 08/30/251332 Stairs Within Home, Primary Number of Stairs, [...] Bed Mobility Bed Mobility supine-sit -KG Supine-Sit [place] (Bed Mobility) moderate assist (50% patient effort);2 [...] increased difficulty advancing LEs. -KG Row Name 11/11/25 1334 Bed-Chair Transfer Bed-Chair [place] (Transfers) maximum assist (25% patient effort);2 person assist;verbal cues -KG Assistive Device (Bed-Chair Transfers) other (see comments) B UE support -KG Row Name 08/30/25 1334 Sit-Stand Transfer Sit-Stand [place] (Transfers) moderate assist (50% patient effort);2 person assist;verbal cues-KG Assistive Device (Sit-Stand Transfers) other (see comments) B UE support -KG Row Name 08/30/25 1334 Gait/Stairs (Locomotion) [place] Level (Gait) moderate assist (50% patient effort);2 [...] By Initials Name Provider Type KG Flora Galvna, PT Physical Therapist Obj/Interventions Row Name 08/30/251336 Range of Motion Comprehensive General Range of Motion no range of motion deficits identified -KG Comment, General Range of Motion B LE WFL -KG Row Name 08/30/25 133 Strength Comprehensive (MMT) Comment, General Manual Muscle Testing (MMT) Assessment B LE grossly 3+/5 -KG Row Name 08/30/251336 Balance Balance Assessment sitting static balance;standing static [...] Provider Type Flora Finley, PT Physical Therapist Goals/Plan [facility] 08/30/251338 Bed Mobility Goal 1 (PT) Activity/Assistive Device (Bed Mobility Goal 1, PT) sit to supine;supine to sit -KG [place] Level/Cues Needed (Bed Mobility Goal 1, PT) minimum assist (75% or more patient effort) -KG Time Frame (Bed Mobility Goal 1, PT) short term goal (STG);5 days -KG Progress/Outcomes (Bed Mobility Goal 1, PT) goal ongoing -KG [facility] 08/30/251338 Transfer Goal 1 (PT) Activity/Assistive Device (Transfer Goal 1, PT) aye-ul-glbzk/txyun-ut-exh;wcw-gl-umldb/jzyso-sd-lol;walker, rolling -KG [place] Level/Cues Needed (Transfer Goal 1, PT) minimum assist (75% or more patient effort) -KG Time Frame (Transfer Goal 1, PT) land checker goal (LTG);10 days -KG Progress/Outcome (Transfer Goal 1, PT) goal ongoing -KG [facility] 08/30/251338 Gait Training Goal 1 (PT) Activity/Assistive Device (Gait Training Goal 1, PT) gait (walking locomotion);assistive device use;walker, rolling -KG [place] Level (Gait Training Goal 1, PT) moderate assist (50-74% patient effort) -KG Distance (Gait Training Goal 1, PT) 50 feet -KG Time Frame (Gait Training Goal 1, PT) retirement goal (LTG);10 days -KG Progress/Outcome (Gait Training Goal 1, PT) goal ongoing -KG [facility] 08/30/251338 Therapy Assessment/Plan (PT) Planned Therapy Interventions (PT) balance training;bed mobility training;gait training;strengthening;transfer training -KG User Jung (r) = Recorded By, (t) = Taken By, (c) = Cosigned By Initials Name Provider Type Flora Finley, PT Physical Therapist Clinical Impression [facility] 08/30/25 5288 Pain Additional Documentation Pain Scale: FACES Pre/Post-Treatment (Group) -KG [facility] 08/30/25 555 Pain Scale: FACES Pre/Post-Treatment Pain: FACES Scale, Pretreatment 4-->hurts little more -KG Posttreatment Pain Rating 6-->hurts even more -KG Row Name 08/30/25 1337 Plan of Care Review Plan of Care Reviewed With patient -KG Outcome Evaluation PT initial evaluation completed for pt s/p cholecystectomy presenting with generalized weakness, increased SOA, impaired balance and coordination, c/o incisional pain, and decreased functional mobility. Pt required modA x2 for STS transfers and modA x2- maxA x2 to take steps frombed to chair and BSC. Pt's decreased independence warrants supervisor seaming care. Recommend D/C to IP rehab facility. [...] Physical Therapist Outcome Measures Row Name 08/30/25 1346 How much help from another person do [...] Therapist Physical Therapy Education Title: PT OT HELICOPTER OFFICER Therapies (In Progress) Topic: Physical Therapy (In Progress) Point: Mobility training (In Progress) Learning Progress Summary Patient Acceptance, E, NR by KG at 08/30/2025902 Point: Home exercise program (Not Started) Learner Progress: Not documented in this visit. Point: Body mechanics (In Progress) Learning Progress Summary Patient Acceptance, E, NR by KG at 08/30/2025 09 Point: Precautions (In Progress) Learning Progress Summary Patient Acceptance, E, NR by KG at 08/30/2025902 User Jung Initials Effective Dates Name Provider Type Discipline DION 03/10/20 - Flora Galvan, PT Physical Therapist [...] chair and BSC. Pt's decreased independence warrants supervisor seaming care. Recommend D/C to IP rehab facility. [...] Provider Type Flora Finley, PT Physical Therapist Therapy Charges for Today Code Description Service Date Service Provider Modifiers Qty [id number] HC PT EVAL MOD COMPLEXITY 4 08/30/2025 Flora Galvan, PT GP 1 PT G-Codes Outcome Measure Options: AM-PAC 6 Clicks Basic Mobility (PT) AM-PAC 6 Clicks Score (PT): 11 AM-PAC 6 Clicks Score (OT): 12 PT Discharge Summary Anticipated Discharge Disposition (PT): inpatient rehabilitation facility Ellen Galvan PT 08/30/2025 * Case Management/Social Work - Félix Azul RN - 08/29/2025 10:36 AM EST Discharge Planning Assessment [facility] Patient Name: Loc [place] Today's Date: [...] child(aminta), adult Family Caregiver Names Sarabjit (son) [phone] Able to Return to Prior Arrangements yes [...] with son at bedside. Lives alone in [facility]. Contact is Sarabjit (son) [phone]. Is independent with ADL's. No problems affording Medicare/[place] or medications. Uses [facility]. No [...] Reason for Consult discharge planning Preferred Language Albanian Contact Information Permission Granted to Share Info With case management social workercommercial development manager Information Obtained for case management social workerproject manager Status Row Name 08/29/25 1032 Functional [...] documented in this encounter Plan of Treatment Not on file documented as of this encounter Procedures Procedure [...] GLUCOSE FINGERSTICK Routine 08/31/2025 1:02 PM EST [employer]TER OFF[employer] FEES FIBEROPTIC ENDO EVAL SWALLOW Routine 08/31/2025 [...] EXAM Routine 08/28/2025 8:40 AM EST Cholecystitis AL LAPS SURG CHOLECYSTECTOMY W/CHOLANGIOGRAPHY 08/28/2025 7:40 AM [...] pancreatitis, unspecified complication status, unspecified pancreatitis type AL ARTL CATHJ/CANNULJ MNTR/TRANSFUSION SPX PRQ Routine 08/28/2025 5:20 AM EST Acute pancreatitis, unspecified complication status, unspecified pancreatitis type HC CENTRAL LINE INSERTION Routine 08/28/2025 5:19 AM EST Acute pancreatitis, unspecified complication status, unspecified pancreatitis type AL INSJ NON-TUNNELED CENTRAL VENOUS CATH AGE 3 [...] MD 09/05/2025 4:23 PM EST Workstation ID: [id number] Narrative 09/05/2025 4:23 PM EST FL VIDEO [...] MD 09/05/2025 4:23 PM EST Workstation ID: [id number] Flora Baig MD IMG FLUOROSCOP Y ORDERABLES Final Result * Magnesium (09/05/2025 4:35 AM EST) Pathologist [facility] Magnesium 2.4 1.6 - 2.4 mg/dL 09/05/2025 5:28 AM EST [facility] Blood Venipuncture / Unknown 09/05/2025 4:35 AM EST 09/05/2025 4:56 AM EST Flora Baig MD LAB BLOOD ORDE RABLES Final Result [facility]
[address] [place] [address], * (ABNORMAL) CBC (No Diff) (09/05/2025 4:35 AM EST) Pathologist [facility] WBC 11.96(H) 3.40 - 10.80 10*3/mm3 09/05/2025 5:14 AM EST [facility] RBC 3.00(L) 4.14 - 5.80 10*6/mm3 09/05/2025 5:14 AM EST [facility] Hemoglobin 9.1(L) 13.0 - 17.7 g/dL 09/05/2025 5:14 AM EST [facility] Hematocrit 29.2(L) 37.5 - 51.0 % 09/05/2025 5:14 AM EST [facility] MCV 97.3(H) 79.0 - 97.0 fL 09/05/2025 5:14 AM EST [facility] MCH 30.3 26.6 - 33.0 pg 09/05/2025 5:14 AM EST [facility] MCHC 31.2(L) 31.5 - 35.7 g/dL 09/05/2025 5:14 AM EST [facility] RDW 14.9 12.3 - 15.4 % 09/05/2025 5:14 AM EST [facility] RDW-SD 52.1 37.0 - 54.0 fl 09/05/2025 5:14 AM EST [facility] MPV 10.9 6.0 - 12.0 fL 09/05/2025 5:14 AM EST [facility] Platelets 191 140 - 450 10*3/mm3 09/05/2025 5:14 AM [facility] Blood Venipuncture / Unknown 09/05/2025 4:35 AM EST 09/05/2025 4:59 AM EST Flora Baig MD LAB BLOOD VIPIN ROGERS Final Result [facility]
[address] [place] [address], * (ABNORMAL) Basic Metabolic Panel (09/05/2025 4:35 AM EST) Glucose 110(H) 65 - 99 mg/dL 09/05/2025 5:28 AM [facility] BUN 18.5 8.0 - 23.0 mg/dL 09/05/2025 5:28 AM [facility] Creatinine 0.72(L) 0.76 - 1.27 mg/dL 09/05/2025 5:28 AM EST [facility] Sodium 146(H) 136 - 145 mmol/L 09/05/2025 5:28 AM EST [facility] Potassium 4.0 3.5 - 5.2 mmol/L 09/05/2025 5:28 AM EST [facility] Chloride 115(H) 98 - 107 mmol/L 09/05/2025 5:28 AM EST [facility] CO2 24.0 22.0 - 29.0 mmol/L 09/05/2025 5:28 AM EST [facility] Calcium 7.7(L) 8.6 - 10.5 mg/dL 09/05/2025 5:28 AM EST [facility] BUN/Creatinine Ratio 25.7(H) 7.0 - 25.0 09/05/2025 5:28 AM EST [facility] Anion Gap 7.0 5.0 - 15.0 mmol/L 09/05/2025 5:28 AM EST [facility] eGFR 89.0 >60.0 mL/min/1.7 3 09/05/2025 5:28 AM EST [facility] Blood Venipuncture / Unknown 09/05/2025 4:35 AM EST 09/05/2025 4:56 AM EST Narrative [facility] - 09/05/2025 5:28 AM EST GFR [...] not include race as a factor us Flora Baig MD LAB BLOOD VIPIN ROGERS Final Result [facility]
[address] [place] [address], * Potassium (09/04/2025 5:30 PM EST) Potassium 4.3 3.5 - 5.2 mmol/L 09/04/2025 6:36 PM EST [facility] Blood Venipuncture / Unknown 09/04/2025 5:30 PM EST 09/04/2025 5:57 PM EST Flora Baig MD LAB BLOOD ORDE RABLES Final Result Performing Organization Address [facility] Co de Phone Number [facility]
[address] [place] [address], * POC Glucose Once (09/04/2025 4:35 PM EST) Glucose 122 70 - 130 mg/dL 09/04/2025 4:44 PM EST [facility] Comment:Serial Number: [id number]: [id number] Blood 09/04/2025 4:35 PM EST 09/04/2025 4:44 PM EST us Flora Baig MD POINT OF CARE TEST ORDERABLES Final Result Performing Organization Address [facility] Co de Phone Number [facility]
[address] [place] [address], * POC Glucose Once (09/04/2025 11:54 AM EST) Glucose 117 70 - 130 mg/dL 09/04/2025 11:57 AM EST [facility] Comment:Serial Number: [id number]: [id number] Blood 09/04/2025 11:5 4 AM EST 09/04/2025 11:57 AM EST Flora Baig MD POINT OF CARE TEST ORDERABLES Final Result Performing Organization Address [facility] Co de Phone Number [facility]
[address] [place] [address], * POC Glucose Once (09/04/2025 8:04 AM EST) Glucose 118 70 - 130 mg/dL 09/04/2025 8:09 AM EST [facility] Comment:Serial Number: [id number]: [id number] Blood 09/04/2025 8:04 AM EST 09/04/2025 8:09 AM EST Flora Baig MD POINT OF CARE TEST ORDERABLES Final Result [facility]
[address] [place] [address], * (ABNORMAL) Phosphorus (09/04/2025 5:18 AM EST) Pathologist [facility] Phosphorus 2.4(L) 2.5 - 4.5 mg/dL 09/04/2025 6:13 AM EST [facility] Blood Venipuncture / Unknown 09/04/2025 5:18 AM EST 09/04/2025 5:51 AM EST Flora Baig MD LAB BLOOD ORDE RABLES Final Result Performing Organization Address City/[facility]/ZIP Co de Phone Number [facility]
[address] [place] [address], * (ABNORMAL) CBC (No Diff) (09/04/2025 5:18 AM EST) WBC 12.52(H) 3.40 - 10.80 10*3/mm3 09/04/2025 5:55 AM EST [facility] RBC 3.27(L) 4.14 - 5.80 10*6/mm3 09/04/2025 5:55 AM EST [facility] Hemoglobin 9.5(L) 13.0 - 17.7 g/dL 09/04/2025 5:55 AM EST [facility] Hematocrit 30.9(L) 37.5 - 51.0 % 09/04/2025 5:55 AM EST [facility] MCV 94.5 79.0 - 97.0 fL 09/04/2025 5:55 AM EST [facility] MCH 29.1 26.6 - 33.0 pg 09/04/2025 5:55 AM EST [facility] MCHC 30.7(L) 31.5 - 35.7 g/dL 09/04/2025 5:55 AM EST [facility] RDW 14.6 12.3 - 15.4 % 09/04/2025 5:55 AM EST [facility] RDW-SD 50.4 37.0 - 54.0 fl 09/04/2025 5:55 AM [facility] MPV 11.0 6.0 - 12.0 fL 09/04/2025 5:55 AM [facility] Platelets 162 140 - 450 10*3/mm3 09/04/2025 5:55 AM [facility] Blood Venipuncture / Unknown 09/04/2025 5:18 AM EST 09/04/2025 5:52 AM EST Flora Baig MD LAB BLOOD VIPIN ROGERS Final Result [facility]
[address] [place] [address], * (ABNORMAL) Basic Metabolic Panel (09/04/2025 5:18 AM EST) Glucose 122(H) 65 - 99 mg/dL 09/04/2025 6:13 AM [facility] BUN 21.0 8.0 - 23.0 mg/dL 09/04/2025 6:13 AM [facility] Creatinine 0.71(L) 0.76 - 1.27 mg/dL 09/04/2025 6:13 AM [facility] Sodium 145 136 - 145 mmol/L 09/04/2025 6:13 AM [facility] Potassium 3.5 3.5 - 5.2 mmol/L 09/04/2025 6:13 AM [facility] Chloride 113(H) 98 - 107 mmol/L 09/04/2025 6:13 AM EST [facility] CO2 25.0 22.0 - 29.0 mmol/L 09/04/2025 6:13 AM EST [facility] Calcium 7.9(L) 8.6 - 10.5 mg/dL 09/04/2025 6:13 AM EST [facility] BUN/Creatinine Ratio 29.6(H) 7.0 - 25.0 09/04/2025 6:13 AM EST [facility] Anion Gap 7.0 5.0 - 15.0 mmol/L 09/04/2025 6:13 AM EST [facility] eGFR 89.4 >60.0 mL/min/1.7 3 09/04/2025 6:13 AM EST [facility] Blood Venipuncture / Unknown 09/04/2025 5:18 AM EST 09/04/2025 5:51 AM EST [facility] - 09/04/2025 6:13 AM EST GFR [...] not include race as a factor us Flora Baig MD LAB BLOOD VIPIN ROGERS Final Result [facility]
[address] [place] [address], * Magnesium (09/04/2025 5:18 AM EST) Magnesium 2.3 1.6 - 2.4 mg/dL 09/04/2025 6:13 AM EST [facility] Blood Venipuncture / Unknown 09/04/2025 5:18 AM EST 09/04/2025 5:51 AM EST Brian Hughes MD LAB BLOOD ORDERABLES Final R esult Performing Organization Address [facility]/ZIP Co de Phone Number [facility]
[address] [place] [address], * (ABNORMAL) POC Glucose Once (09/03/2025 7:51 PM EST) Glucose 141(H) 70 - 130 mg/dL 09/03/2025 7:56 PM EST [facility] Comment:Serial Number: [id number] Blood 09/03/2025 7:51 PM EST 09/03/2025 7:56 PM EST Flora Baig MD POINT OF CARE TEST ORDERABLES Final Result Performing Organization Address [facility] Co de Phone Number [facility]
[address] [place] [address], * (ABNORMAL) POC Glucose Once (09/03/2025 4:09 PM EST) Glucose 155(H) 70 - 130 mg/dL 09/03/2025 4:11 PM EST [facility] Comment:Serial Number: [id number]: [id number] Blood 09/03/2025 4:09 PM EST 09/03/2025 4:11 PM EST Flora Baig MD POINT OF CARE TEST ORDERABLES Final Result Performing Organization Address City/[facility]/ZIP Co de Phone Number [facility]
[address] [place] [address], * Scan Slide (09/03/2025 1:57 PM EST) [facility] RBC Morphology Normal Normal 09/03/2025 3:20 PM EST [facility] WBC Morphology Normal Normal 09/03/2025 3:20 PM EST [facility] Platelet Estimate Adequate Normal 09/03/2025 3:20 PM EST [facility] Blood Venipuncture / Unknown 09/03/2025 1:57 PM EST 09/03/2025 2:09 PM EST Lizbeth Meyrs APRN LAB BLOOD ORDERABLES Final Result [facility]
[address] [place] [address], * Potassium (09/03/2025 1:57 PM EST) [facility] Potassium 4.4 3.5 - 5.2 mmol/L 09/03/2025 2:27 PM EST [facility] Blood Venipuncture / Unknown 09/03/2025 1:57 PM EST 09/03/2025 2:09 PM EST Flora Baig MD LAB BLOOD ORDE RABLES Final Result Performing Organization Address City/[facility]/ZIP Co de Phone Number [facility]
[address] [place] [address], * (ABNORMAL) CBC Auto Differential (09/03/2025 1:57 PM EST) [facility] WBC 10.70 3.40 - 10.80 10*3/mm3 09/03/2025 3:20 PM EST [facility] RBC 3.19(L) 4.14 - 5.80 10*6/mm3 09/03/2025 3:20 PM EST [facility] Hemoglobin 9.3(L) 13.0 - 17.7 g/dL 09/03/2025 3:20 PM EST [facility] Hematocrit 30.4(L) 37.5 - 51.0 % 09/03/2025 3:20 PM [facility] MCV 95.3 79.0 - 97.0 fL 09/03/2025 3:20 PM [facility] MCH 29.2 26.6 - 33.0 pg 09/03/2025 3:20 PM [facility] MCHC 30.6(L) 31.5 - 35.7 g/dL 09/03/2025 3:20 PM [facility] RDW 14.6 12.3 - 15.4 % 09/03/2025 3:20 PM [facility] RDW-SD 51.0 37.0 - 54.0 fl 09/03/2025 3:20 PM [facility] MPV 10.9 6.0 - 12.0 fL 09/03/2025 3:20 PM [facility] Platelets 140 140 - 450 10*3/mm3 09/03/2025 3:20 PM [facility] Neutrophil % 68.1 42.7 - 76.0 % 09/03/2025 3:20 PM [facility] Lymphocyte % 18.1(L) 19.6 - 45.3 % 09/03/2025 3:20 PM [facility] Monocyte % 7.6 5.0 - 12.0 % 09/03/2025 3:20 PM [facility] Eosinophil % 1.3 0.3 - 6.2 % 09/03/2025 3:20 PM [facility] Basophil % 0.3 0.0 - 1.5 % 09/03/2025 3:20 PM [facility] Immature Grans % 4.6(H) 0.0 - 0.5 % 09/03/2025 3:20 PM [facility] Neutrophils, Absolute 7.29(H) 1.70 - 7.00 10*3/mm3 09/03/2025 3:20 PM [facility] Lymphocytes, Absolute 1.94 0.70 - 3.10 10*3/mm3 09/03/2025 3:20 PM EST [facility] Monocytes, Absolute 0.81 0.10 - 0.90 10*3/mm3 09/03/2025 3:20 PM EST [facility] Eosinophils, Absolute 0.14 0.00 - 0.40 10*3/mm3 09/03/2025 3:20 PM EST [facility] Basophils, Absolute 0.03 0.00 - 0.20 10*3/mm3 09/03/2025 3:20 PM EST [facility] Immature Grans, Absolute 0.49(H) 0.00 - 0.05 10*3/mm3 09/03/2025 3:20 PM EST [facility] nRBC 0.4(H) 0.0 - 0.2 /100 WBC 09/03/2025 3:20 PM EST [facility] Blood Venipuncture / Unknown 09/03/2025 1:57 PM EST 09/03/2025 2:09 PM EST Narrative [facility] - 09/03/2025 3:20 PM EST Appended report. These results have been appended to a previously verified report. Lizbeth Myers APRN LAB BLOOD ORDERABLES Final Result [facility]
[address] [place] [address], * POC Glucose Once (09/03/2025 11:47 AM EST) [facility] Glucose 125 70 - 130 mg/dL 09/03/2025 11:49 AM EST [facility] Comment:Serial Number: [id number] Blood 09/03/2025 11:4 7 AM EST 09/03/2025 11:49 AM EST Flora Baig MD POINT OF CARE TEST ORDERABLES Final Result [facility]
[address] [place] [address], * POC Glucose Once (09/03/2025 7:25 AM EST) Pathologist [facility] Glucose 92 70 - 130 mg/dL 09/03/2025 7:27 AM EST [facility] Comment:Serial Number: [id number] Blood 09/03/2025 7:25 AM EST 09/03/2025 7:27 AM EST Flora Baig MD POINT OF CARE TEST ORDERABLES Final Result [facility]
[address] [place] [address], * (ABNORMAL) Basic Metabolic Panel (09/03/2025 3:43 AM EST) [facility] Glucose 108(H) 65 - 99 mg/dL 09/03/2025 4:37 AM EST [facility] BUN 23.0 8.0 - 23.0 mg/dL 09/03/2025 4:37 AM [facility] Creatinine 0.76 0.76 - 1.27 mg/dL 09/03/2025 4:37 AM EST [facility] Sodium 149(H) 136 - 145 mmol/L 09/03/2025 4:37 AM EST [facility] Potassium 3.5 3.5 - 5.2 mmol/L 09/03/2025 4:37 AM EST [facility] Comment:Specimen hemolyzed. Result may be falsely elevated. Chloride 114(H) 98 - 107 mmol/L 09/03/2025 4:37 AM EST [facility] CO2 23.6 22.0 - 29.0 mmol/L 09/03/2025 4:37 AM EST [facility] Calcium 7.8(L) 8.6 - 10.5 mg/dL 09/03/2025 4:37 AM EST [facility] BUN/Creatinine Ratio 30.3(H) 7.0 - 25.0 09/03/2025 4:37 AM EST [facility] Anion Gap 11.4 5.0 - 15.0 mmol/L 09/03/2025 4:37 AM EST [facility] eGFR 87.5 >60.0 mL/min/1.7 3 09/03/2025 4:37 AM EST [facility] Blood Venipuncture / Unknown 09/03/2025 3:43 AM EST 09/03/2025 4:08 AM EST Narrative [facility] - 09/03/2025 4:37 AM EST GFR [...] not include race as a factor us Lizbeth Myers APRN LAB BLOOD ORDERABLES Final Result [facility]
[address] [place] [address], * Magnesium (09/03/2025 3:43 AM EST) Magnesium 2.2 1.6 - 2.4 mg/dL 09/03/2025 4:37 AM EST [facility] Blood Venipuncture / Unknown 09/03/2025 3:43 AM EST 09/03/2025 4:08 AM EST Brian Hughes MD LAB BLOOD ORDERABLES Final R esult [facility]
[address] [place] [address], [place] [phone] * (ABNORMAL) POC Glucose Once (09/02/2025 8:03 PM EST) [facility] Glucose 141(H) 70 - 130 mg/dL 09/02/2025 8:05 PM EST [facility] Comment:Serial Number: [id number]: [id number] Blood 09/02/2025 8:03 PM EST 09/02/2025 8:05 PM EST us Flora Baig MD POINT OF CARE TEST ORDERABLES Final Result [facility]
[address] [place] [address], [place] [phone] * ECHO COMPLETE W/ DOPPLER, COLOR FLOW AND CONTRAST (09/02/2025 6:08 PM EST) [facility] EF(MOD-bp) 67.2 % LVIDd 3.1 cm LVIDs [...] adverse reaction to image enhancer was noted. us Lizbeth Myers APRN CV ECHO ORDERABLES Final Re sult * POC Glucose Once (09/02/2025 4:54 PM EST) Glucose 123 70 - 130 mg/dL 09/02/2025 4:56 PM EST [facility] Comment:Serial Number: [id number] Blood 09/02/2025 4:54 PM EST 09/02/2025 4:56 PM EST Flora Baig MD POINT OF CARE TEST ORDERABLES Final Result Performing Organization Address [facility] Co de Phone Number [facility]
[address] [place] [address], * Lactic Acid, Plasma (09/02/2025 3:43 PM EST) Pathologist [facility] Lactate 1.5 0.5 - 2.0 mmol/L 09/02/2025 4:30 PM EST [facility] Comment:Falsely depressed re sults may occur on samples drawn from patients receiving N-Acetylcysteine (NAC) or Metamizole. Blood Venipuncture / Unknown 09/02/2025 3:43 PM EST 09/02/2025 3:53 PM EST Lizbeth Myers APRN LAB BLOOD ORDERABLES Final Result Performing Organization Address [facility] de Phone Number [facility]
[address] [place] [address], * (ABNORMAL) Manual Differential (09/02/2025 2:36 PM EST) Neutrophil % 83.0(H) 42.7 - 76.0 % 09/02/2025 4:01 PM EST [facility] Lymphocyte % 5.0(L) 19.6 - 45.3 % 09/02/2025 4:01 PM EST [facility] Monocyte % 3.0(L) 5.0 - 12.0 % 09/02/2025 4:01 PM EST [facility] Eosinophil % 0.0(L) 0.3 - 6.2 % 09/02/2025 4:01 PM EST [facility] Basophil % 0.0 0.0 - 1.5 % 09/02/2025 4:01 PM [facility] Bands % 4.0 0.0 - 5.0 % 09/02/2025 4:01 PM [facility] Metamyelocyte % 1.0(H) 0.0 - 0.0 % 09/02/2025 4:01 PM [facility] Myelocyte % 1.0(H) 0.0 - 0.0 % 09/02/2025 4:01 PM [facility] Atypical Lymphocyte % 3.0 0.0 - 5.0 % 09/02/2025 4:01 PM [facility] Neutrophils Absolute 9.65(H) 1.70 - 7.00 10*3/mm3 09/02/2025 4:01 PM [facility] Lymphocytes Absolute 0.89 0.70 - 3.10 10*3/mm3 09/02/2025 4:01 PM [facility] Monocytes Absolute 0.33 0.10 - 0.90 10*3/mm3 09/02/2025 4:01 PM [facility] Eosinophils Absolute 0.00 0.00 - 0.40 10*3/mm3 09/02/2025 4:01 PM [facility] Basophils Absolute 0.00 0.00 - 0.20 10*3/mm3 09/02/2025 4:01 PM [facility] RBC Morphology Normal Normal 09/02/2025 4:01 PM [facility] WBC Morphology Normal Normal 09/02/2025 4:01 PM [facility] Platelet Morphology Normal Normal 09/02/2025 4:01 PM [facility] Blood Venipuncture / Unknown 09/02/2025 2:36 PM EST 09/02/2025 2:47 PM EST Lizbeth Myers APRN LAB BLOOD ORDERABLES Final Result [facility]
[address] [place] [address], * (ABNORMAL) CBC Auto Differential (09/02/2025 2:36 PM EST) WBC 11.09(H) 3.40 - 10.80 10*3/mm3 09/02/2025 4:01 PM EST [facility] RBC 3.34(L) 4.14 - 5.80 10*6/mm3 09/02/2025 4:01 PM EST [facility] Hemoglobin 9.8(L) 13.0 - 17.7 g/dL 09/02/2025 4:01 PM [facility] Hematocrit 31.2(L) 37.5 - 51.0 % 09/02/2025 4:01 PM [facility] MCV 93.4 79.0 - 97.0 fL 09/02/2025 4:01 PM [facility] MCH 29.3 26.6 - 33.0 pg 09/02/2025 4:01 PM [facility] MCHC 31.4(L) 31.5 - 35.7 g/dL 09/02/2025 4:01 PM [facility] RDW 14.5 12.3 - 15.4 % 09/02/2025 4:01 PM [facility] RDW-SD 49.8 37.0 - 54.0 fl 09/02/2025 4:01 PM [facility] MPV 11.0 6.0 - 12.0 fL 09/02/2025 4:01 PM [facility] Platelets 102(L) 140 - 450 10*3/mm3 09/02/2025 4:01 PM [facility] Blood Venipuncture / Unknown 09/02/2025 2:36 PM EST 09/02/2025 2:47 PM EST [facility] - 09/02/2025 4:01 PM EST The previously reported component NRBC is no longer being reported. Previous result was 0.5 /100 WBC (Reference Range: 0.0-0.2 /100 WBC) on 09/02/2025 at 1459 EST. Lizbeth Myers APRN LAB BLOOD ORDERABLES Final Result Performing Organization Address City/State/[facility] Co de Phone Number [facility]
[address] [place] [address], * (ABNORMAL) Procalcitonin (09/02/2025 2:36 PM EST) Procalcitonin 4.27(H) 0.00 - 0.25 ng/mL 09/02/2025 3:24 PM EST [facility] Blood Venipuncture / Unknown 09/02/2025 2:36 PM EST 09/02/2025 2:47 PM EST Narrative [facility] - 09/02/2025 3:24 PM EST As [...] Day 4 values are available. Refer to http://www.ccvawg-jbl-qkeamslxsm.com Change in PCT <=80% A decrease of [...] BLOOD ORDERABLES Final Result Performing Organization Address City/State/[facility] Co de Phone Number [facility]
[address] [place] [address], * (ABNORMAL) proBNP (09/02/2025 2:36 PM EST) proBNP 9,267.0(H) 0.0 - 1,800.0 pg/mL 09/02/2025 3:24 PM EST [facility] Blood Venipuncture / Unknown 09/02/2025 2:36 PM EST 09/02/2025 2:47 PM EST Narrative [facility] - 09/02/2025 3:24 PM EST This [...] BLOOD ORDERABLES Final Result Performing Organization Address [facility] Co de Phone Number [facility]
[address] [place] [address], * POC Glucose Once (09/02/2025 12:24 PM EST) Glucose 124 70 - 130 mg/dL 09/02/2025 12:27 PM EST [facility] Comment:Serial Number: [id number] Blood 09/02/2025 12:2 4 PM EST 09/02/2025 12:27 PM EST Flora Baig MD POINT OF CARE TEST ORDERABLES Final Result [facility]
[address] [place] [address], * XR Chest 1 View (09/02/2025 11:37 [...] MD 09/02/2025 12:03 PM EST Workstation ID: [id number] Narrative 09/02/2025 12:03 PM EST XR CHEST [...] AP chest x-ray 08/29/2025, 08/28/2025; CT abdomen [id number]/[id number]/2025 Findings: Lower chest is not entirely included. [...] MD 09/02/2025 12:03 PM EST Workstation ID: [id number] us Lizbeth Myers TECHNICAL PROJECT COORDINATOR IMG DIAGNOSTIC IMAGING VIPIN ROGERS Final Result [...] MD 09/02/2025 12:12 PM EST Workstation ID: [id number] Narrative 09/02/2025 12:12 PM EST [place] VIDEO [...] MD 09/02/2025 12:12 PM EST Workstation ID: [id number] Flora Baig MD IMG FLUOROSCOP Y ORDERABLES Final Result * POC Glucose Once (09/02/2025 7:44 AM EST) Glucose 97 70 - 130 mg/dL 09/02/2025 8:08 AM EST [facility] Comment:Serial Number: [id number] Blood 09/02/2025 7:44 AM EST 09/02/2025 8:08 AM EST Flora Baig MD POINT OF CARE TEST ORDERABLES Final Result [facility]
[address] [place] [address], * Phosphorus (09/02/2025 5:43 AM EST) Phosphorus 2.5 2.5 - 4.5 mg/dL 09/02/2025 6:50 AM EST [facility] Blood Venipuncture / Unknown 09/02/2025 5:43 AM EST 09/02/2025 6:09 AM EST Flora Baig MD LAB BLOOD ORDE RABLES Final Result [facility]
[address] [place] [address], * (ABNORMAL) Comprehensive Metabolic Panel (09/02/2025 5:43 AM EST) Glucose 99 65 - 99 mg/dL 09/02/2025 6:55 AM [facility] BUN 22.7 8.0 - 23.0 mg/dL 09/02/2025 6:55 AM [facility] Creatinine 0.69(L) 0.76 - 1.27 mg/dL 09/02/2025 6:55 AM [facility] Sodium 148(H) 136 - 145 mmol/L 09/02/2025 6:55 AM [facility] Potassium 3.7 3.5 - 5.2 mmol/L 09/02/2025 6:55 AM [facility] Chloride 116(H) 98 - 107 mmol/L 09/02/2025 6:55 AM [facility] CO2 22.5 22.0 - 29.0 mmol/L 09/02/2025 6:55 AM [facility] Calcium 8.2(L) 8.6 - 10.5 mg/dL 09/02/2025 6:55 AM [facility] Total Protein 5.5(L) 6.0 - 8.5 g/dL 09/02/2025 6:55 AM [facility] Albumin 3.1(L) 3.5 - 5.2 g/dL 09/02/2025 6:55 AM [facility] ALT (SGPT) 81(H) 1 - 41 U/L 09/02/2025 6:55 AM [facility] AST (SGOT) 42(H) 1 - 40 U/L 09/02/2025 6:55 AM [facility] Alkaline Phosphatase 171(H) 39 - 117 U/L 09/02/2025 6:55 AM [facility] Total Bilirubin 0.8 0.0 - 1.2 mg/dL 09/02/2025 6:55 AM [facility] Globulin 2.4 gm/dL 09/02/2025 6:55 AM [facility] Comment:Calculated Result A/G Ratio 1.3 g/dL 09/02/2025 6:55 AM [facility] BUN/Creatinine Ratio 32.9(H) 7.0 - 25.0 09/02/2025 6:55 AM EST [facility] Anion Gap 9.5 5.0 - 15.0 mmol/L 09/02/2025 6:55 AM EST [facility] eGFR 90.1 >60.0 mL/min/1.7 3 09/02/2025 6:55 AM EST [facility] Blood Venipuncture / Unknown 09/02/2025 5:43 AM EST 09/02/2025 6:09 AM EST [facility] - 09/02/2025 6:55 AM EST [...] MD LAB BLOOD ORDERABLES Final Re sult [facility]
[address] [place] [address], * (ABNORMAL) CBC (No Diff) (09/02/2025 5:43 AM EST) WBC 10.84(H) 3.40 - 10.80 10*3/mm3 09/02/2025 6:25 AM EST [facility] RBC 3.22(L) 4.14 - 5.80 10*6/mm3 09/02/2025 6:25 AM EST [facility] Hemoglobin 9.6(L) 13.0 - 17.7 g/dL 09/02/2025 6:25 AM EST [facility] Hematocrit 30.8(L) 37.5 - 51.0 % 09/02/2025 6:25 AM EST [facility] MCV 95.7 79.0 - 97.0 fL 09/02/2025 6:25 AM EST [facility] MCH 29.8 26.6 - 33.0 pg 09/02/2025 6:25 AM [facility] MCHC 31.2(L) 31.5 - 35.7 g/dL 09/02/2025 6:25 AM EST [facility] RDW 14.2 12.3 - 15.4 % 09/02/2025 6:25 AM [facility] RDW-SD 50.4 37.0 - 54.0 fl 09/02/2025 6:25 AM [facility] MPV 10.4 6.0 - 12.0 fL 09/02/2025 6:25 AM [facility] Platelets 94(L) 140 - 450 10*3/mm3 09/02/2025 6:25 AM [facility] Blood Venipuncture / Unknown 09/02/2025 5:43 AM EST 09/02/2025 6:08 AM EST Hermes Jaramillo MD LAB BLOOD ORDERABLES Final Re sult [facility]
[address] [place] [address], * Magnesium (09/02/2025 5:43 AM EST) Magnesium 2.4 1.6 - 2.4 mg/dL 09/02/2025 6:55 AM EST [facility] Blood Venipuncture / Unknown 09/02/2025 5:43 AM EST 09/02/2025 6:09 AM EST Brian Hughes MD LAB BLOOD ORDERABLES Final R esult [facility]
[address] [place] [address], * (ABNORMAL) POC Glucose Once (09/01/2025 7:57 PM EST) Glucose 139(H) 70 - 130 mg/dL 09/01/2025 8:03 PM EST [facility] Comment:Serial Number: [id number]: [id number] Blood 09/01/2025 7:57 PM EST 09/01/2025 8:03 PM EST Flora Baig MD POINT OF CARE TEST ORDERABLES Final Result [facility]
[address] [place] [address], * (ABNORMAL) POC Glucose Once (09/01/2025 5:34 PM EST) Glucose 132(H) 70 - 130 mg/dL 09/01/2025 5:36 PM EST [facility] Comment:Serial Number: [id number]: [id number] Blood 09/01/2025 5:34 PM EST 09/01/2025 5:36 PM EST Flora Baig MD POINT OF CARE TEST ORDERABLES Final Result [facility]
[address] [place] [address], * (ABNORMAL) Phosphorus (09/01/2025 5:05 PM EST) Phosphorus 2.1(L) 2.5 - 4.5 mg/dL 09/01/2025 6:08 PM EST [facility] Blood Venipuncture / Unknown 09/01/2025 5:05 PM EST 09/01/2025 5:45 PM EST Flora Baig MD LAB BLOOD ORDE RABLES Final Result Performing Organization Address City/[facility]/ZIP Co de Phone Number [facility]
[address] [place] [address], * Potassium (09/01/2025 5:05 PM EST) Potassium 4.0 3.5 - 5.2 mmol/L 09/01/2025 6:08 PM EST [facility] Blood Venipuncture / Unknown 09/01/2025 5:05 PM EST 09/01/2025 5:45 PM EST Flora Baig MD LAB BLOOD ORDE RABLES Final Result Performing Organization Address [facility] Co de Phone Number [facility]
[address] [place] [address], * POC Glucose Once (09/01/2025 11:39 AM EST) Glucose 109 70 - 130 mg/dL 09/01/2025 11:41 AM EST [facility] Comment:Serial Number: [id number]: [id number] Blood 09/01/2025 11:3 9 AM EST 09/01/2025 11:41 AM EST Flora Baig MD POINT OF CARE TEST ORDERABLES Final Result Performing Organization Address [facility] Co de Phone Number [facility]
[address] [place] [address], * POC Glucose Once (09/01/2025 5:31 AM EST) Glucose 111 70 - 130 mg/dL 09/01/2025 5:33 AM EST [facility] Comment:Serial Number: [id number]: [id number] Blood 09/01/2025 5:31 AM EST 09/01/2025 5:33 AM EST us Flora Baig MD POINT OF CARE TEST ORDERABLES Final Result Performing Organization Address City/[facility]/ZIP Co de Phone Number [facility]
[address] [place] [address], * (ABNORMAL) Hepatic Function Panel (09/01/2025 4:01 AM EST) Total Protein 5.0(L) 6.0 - 8.5 g/dL 09/01/2025 4:48 AM EST [facility] Albumin 3.0(L) 3.5 - 5.2 g/dL 09/01/2025 4:48 AM EST [facility] ALT (SGPT) 98(H) 1 - 41 U/L 09/01/2025 4:48 AM EST [facility] AST (SGOT) 38 1 - 40 U/L 09/01/2025 4:48 AM EST [facility] Alkaline Phosphatase 108 39 - 117 U/L 09/01/2025 4:48 AM EST [facility] Total Bilirubin 0.6 0.0 - 1.2 mg/dL 09/01/2025 4:48 AM EST [facility] Bilirubin, Direct 0.5(H) 0.0 - 0.3 mg/dL 09/01/2025 4:48 AM EST [facility] Bilirubin, Indirect 0.1 mg/dL 09/01/2025 4:48 AM EST [facility] Blood Venipuncture / Unknown 09/01/2025 4:01 AM EST 09/01/2025 4:15 AM EST us Brian Hughes MD LAB BLOOD ORDERABLES Final R esult [facility]
[address] [place] [address], * (ABNORMAL) Basic Metabolic Panel (09/01/2025 4:01 AM EST) Glucose 108(H) 65 - 99 mg/dL 09/01/2025 4:48 AM EST [facility] BUN 27.2(H) 8.0 - 23.0 mg/dL 09/01/2025 4:48 AM EST [facility] Creatinine 0.75(L) 0.76 - 1.27 mg/dL 09/01/2025 4:48 AM EST [facility] Sodium 148(H) 136 - 145 mmol/L 09/01/2025 4:48 AM EST [facility] Potassium 3.6 3.5 - 5.2 mmol/L 09/01/2025 4:48 AM EST [facility] Chloride 113(H) 98 - 107 mmol/L 09/01/2025 4:48 AM EST [facility] CO2 26.8 22.0 - 29.0 mmol/L 09/01/2025 4:48 AM EST [facility] Calcium 7.7(L) 8.6 - 10.5 mg/dL 09/01/2025 4:48 AM [facility] BUN/Creatinine Ratio 36.3(H) 7.0 - 25.0 09/01/2025 4:48 AM [facility] Anion Gap 8.2 5.0 - 15.0 mmol/L 09/01/2025 4:48 AM [facility] eGFR 87.9 >60.0 mL/min/1.7 3 09/01/2025 4:48 AM [facility] Blood Venipuncture / Unknown 09/01/2025 4:01 AM EST 09/01/2025 4:15 AM EST [facility] - 09/01/2025 4:48 AM EST [...] ORDERABLES Final R esult Performing Organization Address City/[facility]/ZIP Co de Phone Number [facility]
[address] [place] [address], * (ABNORMAL) Phosphorus (09/01/2025 4:01 AM EST) Phosphorus 2.0(L) 2.5 - 4.5 mg/dL 09/01/2025 4:48 AM EST [facility] Blood Venipuncture / Unknown 09/01/2025 4:01 AM EST 09/01/2025 4:15 AM EST us Brian Hughes MD LAB BLOOD ORDERABLES Final R esult Performing Organization Address [facility] de Phone Number [facility]
[address] [place] [address], * (ABNORMAL) Magnesium (09/01/2025 4:01 AM EST) Magnesium 2.5(H) 1.6 - 2.4 mg/dL 09/01/2025 4:48 AM EST [facility] Blood Venipuncture / Unknown 09/01/2025 4:01 AM EST 09/01/2025 4:15 AM EST us Brian Hughes MD LAB BLOOD ORDERABLES Final R esult Performing Organization Address [facility] Co de Phone Number [facility]
[address] [place] [address], * POC Glucose Once (08/31/2025 11:55 PM EST) Glucose 104 70 - 130 mg/dL 08/31/2025 11:57 PM EST [facility] Comment:Serial Number: [id number]: [id number] Blood 08/31/2025 11:5 5 PM EST 08/31/2025 11:57 PM EST Cristian Holtlars DO POINT OF CARE TEST ORDERABLES Final Result Performing Organization Address City/[facility]/ZIP Co de Phone Number [facility]
[address] [place] [address], * POC Glucose Once (08/31/2025 6:02 PM EST) Glucose 119 70 - 130 mg/dL 08/31/2025 6:05 PM EST [facility] Comment:Serial Number: [id number]: [id number] Blood 08/31/2025 6:02 PM EST 08/31/2025 6:05 PM EST Kyleivanrosi Gordon Rylee DO POINT OF CARE TEST ORDERABLES Final Result Performing Organization Address City/[facility]/ZIP Co de Phone Number [facility]
[address] [place] [address], * Telemetry Scan (08/31/2025 2:54 PM EST) [facility] ECG ORDERABLES Final Result * (ABNORMAL) POC Glucose Once (08/31/2025 1:02 PM EST) Glucose 135(H) 70 - 130 mg/dL 08/31/2025 1:05 PM EST [facility] Comment:Serial Number: [id number]: [id number] Blood 08/31/2025 1:02 PM EST 08/31/2025 1:05 PM EST Cristian Mckee DO POINT OF CARE TEST ORDERABLES Final Result Performing Organization Address City/[facility]/ZIP Co de Phone Number [facility]
[address] [place] [address], * [employer] - Fiberoptic Endo Eval Swallow (08/31/2025 9:23 AM EST) Narrative SYSTEMGENERATED, DOCUMENTATION - 08/31/2025 9:23 AM EST This procedure was auto-finalized with no dictation required. Brian Hughes MD [employer] ORDERABLES Final Result * POC Glucose Once (08/31/2025 5:18 AM EST) Glucose 121 70 - 130 mg/dL 08/31/2025 5:20 AM EST [facility] Comment:Serial Number: [id number]: [id number] Blood 08/31/2025 5:18 AM EST 08/31/2025 5:20 AM EST Cristian Mckee DO POINT OF CARE TEST ORDERABLES Final Result Performing Organization Address City/[facility]/ZIP Co de Phone Number [facility]
[address] [place] [address], * (ABNORMAL) Procalcitonin (08/31/2025 3:38 AM EST) Procalcitonin 15.80(H) 0.00 - 0.25 ng/mL 08/31/2025 8:30 AM EST [facility] Blood Line / Unknown 08/31/2025 3: 38 AM EST 08/31/2025 3:45 AM EST Narrative [facility] - 08/31/2025 8:30 AM EST As [...] Day 4 values are available. Refer to http://www.iaohmz-tyc-qldaghwerb.com Change in PCT <=80% A decrease of [...] diagnosed with severe sepsis or septic shock. Marcos Palacios PharmD LAB BLOOD ORDERABLES Fin al Result [facility]
[address] [place] [address], * (ABNORMAL) Manual Differential (08/31/2025 3:38 AM EST) Neutrophil % 75.0 42.7 - 76.0 % 08/31/2025 6:28 AM EST [facility] Lymphocyte % 9.0(L) 19.6 - 45.3 % 08/31/2025 6:28 AM EST [facility] Monocyte % 2.0(L) 5.0 - 12.0 % 08/31/2025 6:28 AM EST [facility] Eosinophil % 2.0 0.3 - 6.2 % 08/31/2025 6:28 AM EST [facility] Basophil % 0.0 0.0 - 1.5 % 08/31/2025 6:28 AM EST [facility] Bands % 11.0(H) 0.0 - 5.0 % 08/31/2025 6:28 AM EST [facility] Atypical Lymphocyte % 1.0 0.0 - 5.0 % 08/31/2025 6:28 AM EST [facility] Neutrophils Absolute 11.30(H) 1.70 - 7.00 10*3/mm3 08/31/2025 6:28 AM EST [facility] Lymphocytes Absolute 1.31 0.70 - 3.10 10*3/mm3 08/31/2025 6:28 AM EST [facility] Monocytes Absolute 0.26 0.10 - 0.90 10*3/mm3 08/31/2025 6:28 AM EST [facility] Eosinophils Absolute 0.26 0.00 - 0.40 10*3/mm3 08/31/2025 6:28 AM EST [facility] Basophils Absolute 0.00 0.00 - 0.20 10*3/mm3 08/31/2025 6:28 AM EST [facility] RBC Morphology Normal Normal 08/31/2025 6:28 AM EST [facility] WBC Morphology Normal Normal 08/31/2025 6:28 AM EST [facility] Platelet Morphology Normal Normal 08/31/2025 6:28 AM [facility] Blood Line / Unknown 08/31/2025 3: 38 AM EST 08/31/2025 3:48 AM EST us Cristian Mckee DO LAB BLOOD ORDERABLE S Final Result [facility]
[address] [place] [address], * (ABNORMAL) CBC Auto Differential (08/31/2025 3:38 AM EST) WBC 13.14(H) 3.40 - 10.80 10*3/mm3 08/31/2025 6:28 AM EST [facility] RBC 3.12(L) 4.14 - 5.80 10*6/mm3 08/31/2025 6:28 AM [facility] Hemoglobin 9.4(L) 13.0 - 17.7 g/dL 08/31/2025 6:28 AM EST [facility] Hematocrit 29.2(L) 37.5 - 51.0 % 08/31/2025 6:28 AM EST [facility] MCV 93.6 79.0 - 97.0 fL 08/31/2025 6:28 AM [facility] MCH 30.1 26.6 - 33.0 pg 08/31/2025 6:28 AM [facility] MCHC 32.2 31.5 - 35.7 g/dL 08/31/2025 6:28 AM [facility] RDW 14.3 12.3 - 15.4 % 08/31/2025 6:28 AM [facility] RDW-SD 49.1 37.0 - 54.0 fl 08/31/2025 6:28 AM [facility] MPV 10.6 6.0 - 12.0 fL 08/31/2025 6:28 AM [facility] Platelets 102(L) 140 - 450 10*3/mm3 08/31/2025 6:28 AM [facility] Blood Line / Unknown 08/31/2025 3: 38 AM EST 08/31/2025 3:48 AM EST [facility] - 08/31/2025 6:28 AM EST The previously reported component NRBC is no longer being reported. Previous result was 0.0 /100 WBC (Reference Range: 0.0-0.2 /100 WBC) on 08/31/2025 at 0411 EST. us Cristian Mckee DO LAB BLOOD ORDERABLE S Final Result [facility]
[address] [place] [address], * (ABNORMAL) Phosphorus (08/31/2025 3:38 AM EST) Pathologist [facility] Phosphorus 1.7(LL) 2.5 - 4.5 mg/dL 08/31/2025 4:38 AM EST [facility] Blood Line / Unknown 08/31/2025 3: 38 AM EST 08/31/2025 3:45 AM EST Brian Hughes MD LAB BLOOD ORDERABLES Final R esult [facility]
[address] [place] [address], * (ABNORMAL) Comprehensive Metabolic Panel (08/31/2025 3:38 AM EST) Pathologist [facility] Glucose 114(H) 65 - 99 mg/dL 08/31/2025 4:30 AM EST [facility] BUN 29.3(H) 8.0 - 23.0 mg/dL 08/31/2025 4:30 AM EST [facility] Creatinine 0.77 0.76 - 1.27 mg/dL 08/31/2025 4:30 AM EST [facility] Sodium 151(H) 136 - 145 mmol/L 08/31/2025 4:30 AM EST [facility] Potassium 3.2(L) 3.5 - 5.2 mmol/L 08/31/2025 4:30 AM EST [facility] Chloride 114(H) 98 - 107 mmol/L 08/31/2025 4:30 AM EST [facility] CO2 28.2 22.0 - 29.0 mmol/L 08/31/2025 4:30 AM EST [facility] Calcium 7.8(L) 8.6 - 10.5 mg/dL 08/31/2025 4:30 AM EST [facility] Total Protein 5.1(L) 6.0 - 8.5 g/dL 08/31/2025 4:30 AM [facility] Albumin 3.0(L) 3.5 - 5.2 g/dL 08/31/2025 4:30 AM [facility] ALT (SGPT) 144(H) 1 - 41 U/L 08/31/2025 4:30 AM [facility] AST (SGOT) 71(H) 1 - 40 U/L 08/31/2025 4:30 AM [facility] Alkaline Phosphatase 107 39 - 117 U/L 08/31/2025 4:30 AM [facility] Total Bilirubin 0.6 0.0 - 1.2 mg/dL 08/31/2025 4:30 AM [facility] Globulin 2.1 gm/dL 08/31/2025 4:30 AM [facility] Comment:Calculated Result A/G Ratio 1.4 g/dL 08/31/2025 4:30 AM [facility] BUN/Creatinine Ratio 38.1(H) 7.0 - 25.0 08/31/2025 4:30 AM [facility] Anion Gap 8.8 5.0 - 15.0 mmol/L 08/31/2025 4:30 AM [facility] eGFR 87.2 >60.0 mL/min/1.7 3 08/31/2025 4:30 AM [facility] Blood Line / Unknown 08/31/2025 3: 38 AM EST 08/31/2025 3:45 AM EST [facility] - 08/31/2025 4:30 AM EST [...] does not include race as a factor Hermes Jaramillo MD LAB BLOOD ORDERABLES Final Re sult Performing Organization Address [facility] de Phone Number [facility]
[address] [place] [address], * (ABNORMAL) Lipase (08/31/2025 3:38 AM EST) Lipase 110(H) 13 - 60 U/L 08/31/2025 4:30 AM EST [facility] Blood Line / Unknown 08/31/2025 3: 38 AM EST 08/31/2025 3:45 AM EST Hermes Jaramillo MD LAB BLOOD ORDERABLES Final Re sult Performing Organization Address [facility] Phone Number [facility]
[address] [place] [address], * (ABNORMAL) Magnesium (08/31/2025 3:38 AM EST) Magnesium 2.6(H) 1.6 - 2.4 mg/dL 08/31/2025 4:30 AM EST [facility] Blood Line / Unknown 08/31/2025 3: 38 AM EST 08/31/2025 3:45 AM EST Brian Hughes MD LAB BLOOD ORDERABLES Final R esult Performing Organization Address [facility] de Phone Number [facility]
[address] [place] [address], * POC Glucose Once (08/30/2025 11:24 PM EST) Glucose 113 70 - 130 mg/dL 08/30/2025 11:26 PM EST [facility] Comment:Serial Number: [id number]: [id number] Nova Comment 1 Critical called to 08/30/2025 11:26 PM EST [facility] Nova Comment 2 Follow unit protocol 08/30/2025 11:26 PM EST [facility] Blood 08/30/2025 11:2 4 PM EST 08/30/2025 11:26 PM EST Cristian Mckee DO POINT OF CARE TEST ORDERABLES Final Result Performing Organization Address City/[facility]/ZIP Co de Phone Number [facility]
[address] [place] [address], * POC Glucose Once (08/30/2025 5:45 PM EST) Glucose 91 70 - 130 mg/dL 08/30/2025 5:49 PM EST [facility] Comment:Serial Number: [id number]: [id number] Blood 08/30/2025 5:45 PM EST 08/30/2025 5:49 PM EST Cristian Mckee DO POINT OF CARE TEST ORDERABLES Final Result Performing Organization Address [facility] Co de Phone Number [facility]
[address] [place] [address], * POC Glucose Once (08/30/2025 11:31 AM EST) Glucose 92 70 - 130 mg/dL 08/30/2025 11:35 AM EST [facility] Comment:Serial Number: [id number]: [id number] Blood 08/30/2025 11:3 1 AM EST 08/30/2025 11:34 AM EST Cristian Mckee DO POINT OF CARE TEST ORDERABLES Final Result Performing Organization Address City/[facility]/ZIP Co de Phone Number [facility]
[address] [place] [address], * Telemetry Scan (08/30/2025 9:26 AM EST) [facility] On[facility] ECG ORDERABLES Final Result * POC Glucose Once (08/30/2025 5:13 AM EST) Glucose 100 70 - 130 mg/dL 08/30/2025 5:16 AM EST [facility] Comment:Serial Number: [id number]: [id number] Blood 08/30/2025 5:13 AM EST 08/30/2025 5:16 AM EST Cristian Mckee DO POINT OF CARE TEST ORDERABLES Final Result Performing Organization Address City/[facility]/ZIP Co de Phone Number [facility]
[address] [place] [address], * Phosphorus (08/30/2025 4:03 AM EST) Phosphorus 2.5 2.5 - 4.5 mg/dL 08/30/2025 5:01 AM EST [facility] Blood Line / Unknown 08/30/2025 4: 03 AM EST 08/30/2025 4:30 AM EST Brian Hughes MD LAB BLOOD ORDERABLES Final R esult [facility]
[address] [place] [address], * (ABNORMAL) Lipase (08/30/2025 4:03 AM EST) Lipase 137(H) 13 - 60 U/L 08/30/2025 4:53 AM EST [facility] Blood Line / Unknown 08/30/2025 4: 03 AM EST 08/30/2025 4:30 AM EST Hermes Jaramillo MD LAB BLOOD ORDERABLES Final Re sult [facility]
[address] [place] [address], * (ABNORMAL) Comprehensive Metabolic Panel (08/30/2025 4:03 AM EST) [facility] Glucose 98 65 - 99 mg/dL 08/30/2025 4:53 AM EST [facility] BUN 35.1(H) 8.0 - 23.0 mg/dL 08/30/2025 4:53 AM [facility] Creatinine 1.16 0.76 - 1.27 mg/dL 08/30/2025 4:53 AM EST [facility] Sodium 148(H) 136 - 145 mmol/L 08/30/2025 4:53 AM EST [facility] Potassium 3.5 3.5 - 5.2 mmol/L 08/30/2025 4:53 AM EST [facility] Chloride 109(H) 98 - 107 mmol/L 08/30/2025 4:53 AM EST [facility] CO2 30.9(H) 22.0 - 29.0 mmol/L 08/30/2025 4:53 AM EST [facility] Calcium 7.9(L) 8.6 - 10.5 mg/dL 08/30/2025 4:53 AM [facility] Total Protein 5.0(L) 6.0 - 8.5 g/dL 08/30/2025 4:53 AM EST [facility] Albumin 2.9(L) 3.5 - 5.2 g/dL 08/30/2025 4:53 AM EST [facility] ALT (SGPT) 199(H) 1 - 41 U/L 08/30/2025 4:53 AM EST [facility] AST (SGOT) 144(H) 1 - 40 U/L 08/30/2025 4:53 AM EST [facility] Alkaline Phosphatase 93 39 - 117 U/L 08/30/2025 4:53 AM EST [facility] Total Bilirubin 0.7 0.0 - 1.2 mg/dL 08/30/2025 4:53 AM EST [facility] Globulin 2.1 gm/dL 08/30/2025 4:53 AM EST [facility] Comment:Calculated Result A/G Ratio 1.4 g/dL 08/30/2025 4:53 AM EST [facility] BUN/Creatinine Ratio 30.3(H) 7.0 - 25.0 08/30/2025 4:53 AM EST [facility] Anion Gap 8.1 5.0 - 15.0 mmol/L 08/30/2025 4:53 AM [facility] eGFR 61.3 >60.0 mL/min/1.7 3 08/30/2025 4:53 AM EST [facility] Blood Line / Unknown 08/30/2025 4: 03 AM EST 08/30/2025 4:30 AM EST [facility] - 08/30/2025 4:53 AM EST [...] not include race as a factor us eHrmes Jaramillo MD LAB BLOOD ORDERABLES Final Re sult [facility]
[address] [place] [address], * (ABNORMAL) CBC (No Diff) (08/30/2025 4:03 AM EST) WBC 12.35(H) 3.40 - 10.80 10*3/mm3 08/30/2025 4:37 AM EST [facility] RBC 2.83(L) 4.14 - 5.80 10*6/mm3 08/30/2025 4:37 AM [facility] Hemoglobin 8.3(L) 13.0 - 17.7 g/dL 08/30/2025 4:37 AM [facility] Hematocrit 26.5(L) 37.5 - 51.0 % 08/30/2025 4:37 AM [facility] MCV 93.6 79.0 - 97.0 fL 08/30/2025 4:37 AM [facility] MCH 29.3 26.6 - 33.0 pg 08/30/2025 4:37 AM [facility] MCHC 31.3(L) 31.5 - 35.7 g/dL 08/30/2025 4:37 AM [facility] RDW 14.7 12.3 - 15.4 % 08/30/2025 4:37 AM [facility] RDW-SD 50.5 37.0 - 54.0 fl 08/30/2025 4:37 AM [facility] MPV 10.6 6.0 - 12.0 fL 08/30/2025 4:37 AM [facility] Platelets 96(L) 140 - 450 10*3/mm3 08/30/2025 4:37 AM [facility] Blood Line / Unknown 08/30/2025 4: 03 AM EST 08/30/2025 4:31 AM EST us Hermes Jaramillo MD LAB BLOOD ORDERABLES Final Re sult [facility]
[address] [place] [address], * (ABNORMAL) Magnesium (08/30/2025 4:03 AM EST) Magnesium 2.7(H) 1.6 - 2.4 mg/dL 08/30/2025 4:53 AM EST [facility] Blood Line / Unknown 08/30/2025 4: 03 AM EST 08/30/2025 4:30 AM EST Brian Hughes MD LAB BLOOD ORDERABLES Final R esult Performing Organization Address [facility] Co de Phone Number [facility]
[address] [place] [address], * POC Glucose Once (08/29/2025 11:05 PM EST) [facility] Signature Glucose 101 70 - 130 mg/dL 08/29/2025 11:07 PM EST [facility] Comment:Serial Number: [id number]: [id number] Blood 08/29/2025 11:0 5 PM EST 08/29/2025 11:07 PM EST Cristian Mckee DO POINT OF CARE TEST ORDERABLES Final Result Performing Organization Address [facility] Co de Phone Number [facility]
[address] [place] [address], * POC Glucose Once (08/29/2025 5:50 PM EST) Glucose 112 70 - 130 mg/dL 08/29/2025 6:02 PM EST [facility] Comment:Serial Number: [id number]: [id number] Blood 08/29/2025 5:50 PM EST 08/29/2025 6:02 PM EST Cristian Mckee DO POINT OF CARE TEST ORDERABLES Final Result Performing Organization Address City/[facility] Co de Phone Number [facility]
[address] [place] [address], * (ABNORMAL) Blood Gas, Arterial With Co-Ox (08/29/2025 5:10 PM EST) Site Arterial Line 08/29/2025 5:10 PM EST [facility] THERAPY Andrey's Test N/A 08/29/2025 5:10 PM EST [facility] THERAPY pH, Arterial 7.490(H) 7.350 - 7.450 pH units 08/29/2025 5:10 PM [facility] THERAP[facility] Comment:83 Value above refer ence range pCO2, Arterial 31.6(L) 35.0 - 45.0 mm Hg 08/29/2025 5:10 PM [facility] THERAP[facility] Comment:84 Value below refer ence range pO2, Arterial 145.0(H) 83.0 - 108.0 mm Hg 08/29/2025 5:10 PM [facility] THERAPY HCO3, Arterial 24.0 20.0 - 26.0 mmol/L 08/29/2025 5:10 PM [facility] THERAPY Base Excess, Arterial 0.8 0.0 - 2.0 mmol/L 08/29/2025 5:10 PM [facility] THERAP[facility] Hemoglobin, Blood Gas 7.5(L) 13.5 - 17.5 g/dL 08/29/2025 5:10 PM [facility] THERAPY Comment:84 Value below refer ence range Hematocrit, Blood Gas 23.1(L) 38.0 - 51.0 % 08/29/2025 5:10 PM [facility] THERAPY Oxyhemoglobin 98.7 94 - 99 % 08/29/2025 5:10 PM [facility] THERAP[facility] Methemoglobin 0.30 0.00 - 1.50 % 08/29/2025 5:10 PM [facility] THERAP[facility] Carboxyhemoglobin 1.1 0 - 2 % 025 5:10 PM [facility] THERAPY CO2 Content 25.0 22 - 33 mmol/L 08/29/2025 5:10 PM EST [facility] THERAPY Temperature 37.0 08/29/2025 5:10 PM EST [facility] THERAPY Barometric Pressure for Blood Gas 08/29/2025 5:10 PM [facility] THERAP[facility] Comment:N/A Modality Ventilator 08/29/2025 5:10 PM EST [facility] THERAPY FIO2 40 % 08/29/2025 5:10 PM EST [facility] THERAPY Ventilator Mode PS 5:10 PM EST [facility] THERAPY Rate 0 Breaths/ minute 08/29/2025 5:10 PM EST [facility] THERAPY PEEP 6.0 08/29/2025 5:10 PM [facility] THERAPY PSV 10.0 cmH2O 08/29/2025 5:10 PM [facility] THERAPY PIP 0 cmH2O 08/29/2025 5:10 PM EST [facility]AP[facility] Comment:Meter: [id number] Line Person: [id number] IPAP 0 cm H2O 08/29/2025 5:10 PM EST [facility] THERAPY EPAP 0 cm H2O 08/29/2025 5:10 PM [facility] THERAPY pH, Temp Corrected 7.490 pH Units 2024 5:10 PM [facility] THERAPY pCO2, Temperature Corrected 31.6(L) 35 - 48 mm Hg 08/29/2025 5:10 PM EST [facility] THERAPY pO2, Temperature Corrected 145(H) 83 - 108 mm Hg 08/29/2025 5:10 PM [facility] THERAPY Arterial Blood 08/29/2025 5: 10 PM EST 08/29/2025 5:10 PM EST us Cristian Mckee DO LAB BLOOD ORDERABLE S Final Result [facility] THERAPY
[address] [place] [address], * (ABNORMAL) STAT Lactic Acid, Reflex (08/29/2025 4:18 PM EST) Lactate 2.3(HH) 0.5 - 2.0 mmol/L 08/29/2025 4:52 PM EST [facility] Comment:Falsely depressed re sults may occur on samples drawn from patients receiving N-Acetylcysteine (NAC) or Metamizole. Blood Line / Unknown 08/29/2025 4: 18 PM EST 08/29/2025 4:29 PM EST Cristian Mckee LAB BLOOD ORDERABLE S Final Result [facility]
[address] [place] [address], * (ABNORMAL) STAT Lactic Acid, Reflex (08/29/2025 1:16 PM EST) Lactate 2.9(HH) 0.5 - 2.0 mmol/L 08/29/2025 1:55 PM EST [facility] Blood Line / Unknown 08/29/2025 1: 16 PM EST 08/29/2025 1:23 PM EST Cristian Mckee LAB BLOOD ORDERABLE S Final Result [facility]
[address] [place] [address], * POC Glucose Once (08/29/2025 11:07 AM EST) Glucose 108 70 - 130 mg/dL 08/29/2025 11:11 AM EST [facility] Comment:Serial Number: [id number]: [id number] Blood 08/29/2025 11:0 7 AM EST 08/29/2025 11:11 AM EST Cristian Mckee DO POINT OF CARE TEST ORDERABLES Final Result Performing Organization Address [facility] de Phone Number [facility]
[address] [place] [address], * (ABNORMAL) STAT Lactic Acid, Reflex (08/29/2025 9:42 AM EST) Lactate 3.7(HH) 0.5 - 2.0 mmol/L 08/29/2025 10:35 AM EST [facility] Comment:Falsely depressed re sults may occur on samples drawn from patients receiving N-Acetylcysteine (NAC) or Metamizole. Blood Line / Unknown 08/29/2025 9: 42 AM EST 08/29/2025 10:10 AM EST Kyleivanrosi Mckee LAB BLOOD ORDERABLE S Final Result Performing Organization Address [facility] de Phone Number [facility]
[address] [place] [address], * POC Glucose Once (08/29/2025 6:16 AM EST) Pathologist [facility] Glucose 100 70 - 130 mg/dL 08/29/2025 6:19 AM EST [facility] Comment:Serial Number: [id number]: [id number] Blood 08/29/2025 6:16 AM EST 08/29/2025 6:19 AM EST Cristian Elliottargentina Mckee POINT OF CARE TEST ORDERABLES Final Result Performing Organization Address [facility] de Phone Number [facility]
[address] [place] [address], * (ABNORMAL) CBC (No Diff) (08/29/2025 6:07 AM EST) WBC 15.08(H) 3.40 - 10.80 10*3/mm3 08/29/2025 6:34 AM EST [facility] RBC 2.90(L) 4.14 - 5.80 10*6/mm3 08/29/2025 6:34 AM EST [facility] Hemoglobin 8.5(L) 13.0 - 17.7 g/dL 08/29/2025 6:34 AM EST [facility] Hematocrit 26.8(L) 37.5 - 51.0 % 08/29/2025 6:34 AM EST [facility] MCV 92.4 79.0 - 97.0 fL 08/29/2025 6:34 AM EST [facility] LABORATORY MCH 29.3 26.6 - 33.0 pg 08/29/2025 6:34 AM [facility]ORATORY MCHC 31.7 31.5 - 35.7 g/dL 08/29/2025 6:34 AM [facility] RDW 15.1 12.3 - 15.4 % 08/29/2025 6:34 AM [facility] RDW-SD 50.7 37.0 - 54.0 fl 08/29/2025 6:34 AM [facility] MPV 10.4 6.0 - 12.0 fL 08/29/2025 6:34 AM [facility] Platelets 95(L) 140 - 450 10*3/mm3 08/29/2025 6:34 AM EST [facility] Blood Line / Unknown 08/29/2025 6: 07 AM EST 08/29/2025 6:13 AM EST us Alma Rosa Lucas TECHNICAL PROJECT COORDINATOR LAB BLOOD ORDERABLES Final Result [facility]
[address] [place] [address], * (ABNORMAL) Basic Metabolic Panel (08/29/2025 6:07 AM EST) [facility] Glucose 119(H) 65 - 99 mg/dL 08/29/2025 6:34 AM [facility] BUN 38.4(H) 8.0 - 23.0 mg/dL 08/29/2025 6:34 AM [facility] Creatinine 1.57(H) 0.76 - 1.27 mg/dL 08/29/2025 6:34 AM [facility] Sodium 146(H) 136 - 145 mmol/L 08/29/2025 6:34 AM EST [facility] Potassium 4.1 3.5 - 5.2 mmol/L 08/29/2025 6:34 AM [facility] Chloride 105 98 - 107 mmol/L 08/29/2025 6:34 AM [facility] CO2 26.0 22.0 - 29.0 mmol/L 08/29/2025 6:34 AM [facility] Calcium 7.9(L) 8.6 - 10.5 mg/dL 08/29/2025 6:34 AM [facility] BUN/Creatinine Ratio 24.5 7.0 - 25.0 08/29/2025 6:34 AM [facility] Anion Gap 15.0 5.0 - 15.0 mmol/L 08/29/2025 6:34 AM [facility] eGFR 42.7(L) >60.0 mL/min/1.7 3 08/29/2025 6:34 AM [facility] Blood Line / Unknown 08/29/2025 6: 07 AM EST 08/29/2025 6:13 AM EST [facility] LABORATORY - 08/29/2025 6:34 AM EST [...] does not include race as a factor Brian Hughes MD LAB BLOOD ORDERABLES Final R esult Performing Organization Address City/[facility]/ZIP Co de Phone Number [facility]
[address] [place] [address], * (ABNORMAL) Phosphorus (08/29/2025 6:07 AM EST) Phosphorus 5.2(H) 2.5 - 4.5 mg/dL 08/29/2025 6:34 AM EST [facility] Blood Line / Unknown 08/29/2025 6: 07 AM EST 08/29/2025 6:13 AM EST Brian Hughes MD LAB BLOOD ORDERABLES Final R esult Performing Organization Address [facility] Phone Number [facility]
[address] [place] [address], * (ABNORMAL) Lactic Acid, Plasma (08/29/2025 6:07 AM EST) Lactate 4.5(HH) 0.5 - 2.0 mmol/L 08/29/2025 6:38 AM EST [facility] Comment:Falsely depressed re sults may occur on samples drawn from patients receiving N-Acetylcysteine (NAC) or Metamizole. Blood Line / Unknown 08/29/2025 6: 07 AM EST 08/29/2025 6:13 AM EST Cristian Mckee DO LAB BLOOD ORDERABLE S Final Result Performing Organization Address [facility] Co de Phone Number [facility]
[address] [place] [address], * Magnesium (08/29/2025 6:07 AM EST) Magnesium 2.3 1.6 - 2.4 mg/dL 08/29/2025 6:38 AM EST [facility] Blood Line / Unknown 08/29/2025 6: 07 AM EST 08/29/2025 6:13 AM EST us Brian Hughes MD LAB BLOOD ORDERABLES Final R esult [facility] LAB[facility]
[address] [place] [address], * XR Chest 1 View (08/29/2025 3:58 AM EST) Anatomical Region Laterality Modality Body N/A Radiographic Radha ging 08/29/2025 4:13 AM EST Impressions 08/29/2025 4:14 AM EST 1.Slight increased infiltrate or atelectasis at the right lung base. 2.Persistent opacities in the left mid to lower lung with possible small left effusion. Electronically Signed: Luís Rodríguez MD 08/29/2025 4:14 AM EST Workstation ID: [id number] Narrative 08/29/2025 4:14 AM EST XR CHEST [...] MD 08/29/2025 4:14 AM EST Workstation ID: [id number] Alma Rosa Lucas TECHNICAL PROJECT COORDINATOR IMG DIAGNOSTIC IMAGING ORD ERABLES Final Result * (ABNORMAL) Blood Gas, Arterial With Co-Ox (08/29/2025 3:51 AM EST) Site Arterial Line 08/29/2025 3:52 AM EST [facility] RESPIRATORY THERAPY Andrey's Test N/A 08/29/2025 3:52 AM EST [facility] RESPIRATORY THERAPY pH, Arterial 7.407 7.350 - 7.450 pH units 08/29/2025 3:52 AM EST [facility] RESPIR[facility] THERAPY pCO2, Arterial 36.8 35.0 - 45.0 mm Hg 08/29/2025 3:52 AM EST [facility] RESPIRAT[facility] THERAPY pO2, Arterial 144.0(H) 83.0 - 108.0 mm Hg 08/29/2025 3:52 AM EST [facility] RESPIRATORY THERAPY HCO3, Arterial 23.1 20.0 - 26.0 mmol/L 08/29/2025 3:52 AM EST [facility] RESPIRATORY THERAPY Base Excess, Arterial -1.4(L) 0.0 - 2.0 mmol/L 08/29/2025 3:52 AM EST [facility] RESPIRATORY THERAPY Hemoglobin, Blood Gas 8.0(L) 13.5 - 17.5 g/dL 08/29/2025 3:52 AM [facility] RESPIRATORY THERAPY Comment:84 Value below refer ence range Hematocrit, Blood Gas 24.5(L) 38.0 - 51.0 % 08/29/2025 3:52 AM EST [facility] RESPIRATORY THERAPY Oxyhemoglobin 98.5 94 - 99 % 08/29/2025 3:52 AM EST [facility] RESPIRAT[facility] THERAPY Methemoglobin 0.20 0.00 - 1.50 % 08/29/2025 3:52 AM [facility] RESPIRATORY THERAPY Carboxyhemoglobin 1.1 0 - 2 % 025 3:52 AM [facility] RESPIRAT[facility] THERAPY CO2 Content 24.3 22 - 33 mmol/L 08/29/2025 3:52 AM [facility] RESPIRAT[facility] THERAPY Temperature 37.0 08/29/2025 3:52 AM [facility] RESPIRAT[facility] THERAPY Barometric Pressure for Blood Gas 08/29/2025 3:52 AM [facility] RESPIRAT[facility] THERAPY Comment:N/A Modality Ventilator 08/29/2025 3:52 AM [facility] RESPIRATORY THERAPY FIO2 45 % 08/29/2025 3:52 AM [facility] RESPIRATORY THERAPY Ventilator Mode VC+/AC 3:52 AM [facility] RESPIRAT[facility] THERAPY Set Tidal Volume 0.46 08/29/20 3:52 AM [facility] RESPIRAT[facility] THERAPY Rate 16 Breaths/ minute 08/29/2025 3:52 AM [facility] RESPIRAT[facility] THERAPY PEEP 10.0 08/29/2025 3:52 AM [facility] RESPIRAT[facility] THERAPY PIP 0 cmH2O 08/29/2025 3:52 AM [facility] RESPIRAT[facility] THERAPY Comment:Meter: [id number] Line Person: [id number] IPAP 0 cm H2O 08/29/2025 3:52 AM [facility] RESPIRAT[facility] THERAPY EPAP 0 cm H2O 08/29/2025 3:52 AM [facility] RESPIRAT[facility] THERAPY pH, Temp Corrected 7.407 pH Units 2024 3:52 AM [facility] RESPIRAT[facility] THERAPY pCO2, Temperature Corrected 36.8 35 - 48 mm Hg 08/29/2025 3:52 AM [facility] RESPIR[facility] THERAPY pO2, Temperature Corrected 144(H) 83 - 108 mm Hg 08/29/2025 3:52 AM [facility] RESPIRAT[facility] THERAPY Arterial Blood 08/29/2025 3: 51 AM EST 08/29/2025 3:51 AM EST Cristian Mckee DO LAB BLOOD ORDERABLE S Final Result Performing Organization Address [facility]/ZIP Co de Phone Number [facility] RESPIRATORY THERAPY
[address] [place] [address], * (ABNORMAL) Lactic Acid, Plasma (08/29/2025 12:24 AM EST) [facility] Lactate 5.1(HH) 0.5 - 2.0 mmol/L 08/29/2025 1:21 AM EST [facility] Comment:Falsely depressed re sults may occur on samples drawn from patients receiving N-Acetylcysteine (NAC) or Metamizole. Blood Line / Unknown 08/29/2025 12 :24 AM EST 08/29/2025 12:44 AM EST Cristian Mckee DO LAB BLOOD ORDERABLE S Final Result Performing Organization Address [facility] Co de Phone Number [facility]
[address] [place] [address], * POC Glucose Once (08/28/2025 10:58 PM EST) [facility] Glucose 109 70 - 130 mg/dL 08/28/2025 11:00 PM EST [facility] Comment:Serial Number: [id number]: [id number] Blood 08/28/2025 10:5 8 PM EST 08/28/2025 11:00 PM EST Cristian Mckee DO POINT OF CARE TEST ORDERABLES Final Result Performing Organization Address [facility] Co de Phone Number [facility]
[address] [place] [address], * (ABNORMAL) Blood Gas, Arterial With Co-Ox (08/28/2025 8:04 PM EST) [facility] Site Arterial Line 08/28/2025 8:04 PM EST [facility] RESPIRATORY THERAPY Andrey's Test N/A 08/28/2025 8:04 PM [facility] RESPIRATORY THERAPY pH, Arterial 7.408 7.350 - 7.450 pH units 08/28/2025 8:04 PM [facility] RESPIRAT[facility] THERAPY pCO2, Arterial 37.6 35.0 - 45.0 mm Hg 08/28/2025 8:04 PM [facility] RESPIR[facility] THERAPY pO2, Arterial 157.0(H) 83.0 - 108.0 mm Hg 08/28/2025 8:04 PM [facility] RESPIR[facility] THERAPY HCO3, Arterial 23.7 20.0 - 26.0 mmol/L 08/28/2025 8:04 PM [facility] RESPIRAT[facility] THERAPY Base Excess, Arterial -0.8(L) 0.0 - 2.0 mmol/L 08/28/2025 8:04 PM [facility] RESPIRAT[facility] THERAPY Hemoglobin, Blood Gas 8.3(L) 13.5 - 17.5 g/dL 08/28/2025 8:04 PM [facility] THERAPY Comment:84 Value below refer ence range Hematocrit, Blood Gas 25.3(L) 38.0 - 51.0 % 08/28/2025 8:04 PM [facility] RESPIRAT[facility] THERAPY Oxyhemoglobin 98.6 94 - 99 % 08/28/2025 8:04 PM [facility] THERAPY Methemoglobin 0.30 0.00 - 1.50 % 08/28/2025 8:04 PM [facility]PIR[facility] THERAPY Carboxyhemoglobin 1.1 0 - 2 % 025 8:04 PM [facility] THERAPY CO2 Content 24.9 22 - 33 mmol/L 08/28/2025 8:04 PM [facility] THERAPY Temperature 37.0 08/28/2025 8:04 PM [facility] THERAPY Barometric Pressure for Blood Gas 08/28/2025 8:04 PM [facility] THERAPY Comment:N/A Modality Ventilator 08/28/2025 8:04 PM [facility] RESPIRAT[facility] THERAPY FIO2 45 % 08/28/2025 8:04 PM [facility] RESPIRAT[facility] THERAPY Ventilator Mode VC+/AC 8:04 PM [facility] RESPIR[facility] THERAPY Set Tidal Volume 0.46 08/28/20 8:04 PM [facility]PIR[facility] THERAPY Rate 16 Breaths/ minute 08/28/2025 8:04 PM [facility] RESPIR[facility] THERAPY PEEP 10.0 08/28/2025 8:04 PM [facility] RESPIR[facility] THERAPY PIP 0 cmH2O 08/28/2025 8:04 PM [facility] RESPIR[facility] THERAPY Comment:Meter: [id number] Line Person: [id number] IPAP 0 cm H2O 08/28/2025 8:04 PM [facility] RESPIRAT[facility] THERAPY EPAP 0 cm H2O 08/28/2025 8:04 PM [facility] RES[facility] THERAPY pH, Temp Corrected 7.408 pH Units 2024 8:04 PM [facility] RESPIR[facility] THERAPY pCO2, Temperature Corrected 37.6 35 - 48 mm Hg 08/28/2025 8:04 PM [facility] RESP[facility] THERAPY pO2, Temperature Corrected 157(H) 83 - 108 mm Hg 08/28/2025 8:04 PM [facility] RES[facility] THERAPY Arterial Blood 08/28/2025 8: 04 PM EST 08/28/2025 8:04 PM EST us Cristian Mckee DO LAB BLOOD ORDERABLE S Final Result [facility] RESPIRATORY THERAPY
[address] [place] [address], * (ABNORMAL) Lactic Acid, Plasma (08/28/2025 7:18 PM EST) Lactate 5.7(HH) 0.5 - 2.0 mmol/L 08/28/2025 7:58 PM [facility] Comment:Falsely depressed re sults may occur on samples drawn from patients receiving N-Acetylcysteine (NAC) or Metamizole. Blood Line / Unknown 08/28/2025 7: 18 PM EST 08/28/2025 7:33 PM EST Cristian Mckee DO LAB BLOOD ORDERABLE S Final Result [facility]
[address] [place] [address], * POC Glucose Once (08/28/2025 5:56 PM EST) [facility] Glucose 113 70 - 130 mg/dL 08/28/2025 5:59 PM EST [facility] Comment:Serial Number: [id number]: [id number] Blood 08/28/2025 5:56 PM EST 08/28/2025 5:59 PM EST Cristian Mckee DO POINT OF CARE TEST ORDERABLES Final Result Performing Organization Address City/[facility]/ZIP Co de Phone Number [facility]
[address] [place] [address], * (ABNORMAL) Blood Gas, Arterial With Co-Ox (08/28/2025 2:14 PM EST) Pathologist [facility] Site Arterial Line 08/28/2025 2:16 PM EST [facility] RESPIRATORY THERAPY Andrey's Test N/A 08/28/2025 2:16 PM EST [facility] RESP[facility] THERAPY pH, Arterial 7.312(L) 7.350 - 7.450 pH units 08/28/2025 2:16 PM EST [facility] THERAPY Comment:84 Value below refer ence range pCO2, Arterial 44.7 35.0 - 45.0 mm Hg 08/28/2025 2:16 PM EST [facility] RES[facility] THERAPY pO2, Arterial 161.0(H) 83.0 - 108.0 mm Hg 08/28/2025 2:16 PM EST [facility] RESPIR[facility] THERAPY HCO3, Arterial 22.6 20.0 - 26.0 mmol/L 08/28/2025 2:16 PM [facility] RESPIRAT[facility] THERAPY Base Excess, Arterial -3.5(L) 0.0 - 2.0 mmol/L 08/28/2025 2:16 PM [facility] RESPIR[facility] THERAPY Hemoglobin, Blood Gas 9.1(L) 13.5 - 17.5 g/dL 08/28/2025 2:16 PM [facility] THERAPY Comment:84 Value below refer ence range Hematocrit, Blood Gas 27.8(L) 38.0 - 51.0 % 08/28/2025 2:16 PM [facility] RESP[facility] THERAPY Oxyhemoglobin 98.3 94 - 99 % 08/28/2025 2:16 PM [facility] THERAPY Methemoglobin 0.60 0.00 - 1.50 % 08/28/2025 2:16 PM [facility] THERAPY Carboxyhemoglobin 1.0 0 - 2 % 025 2:16 PM [facility] THERAPY CO2 Content 24.0 22 - 33 mmol/L 08/28/2025 2:16 PM [facility] THERAPY Temperature 37.0 08/28/2025 2:16 PM [facility] THERAPY Barometric Pressure for Blood Gas 08/28/2025 2:16 PM [facility] THERAPY Comment:N/A Modality Ventilator 08/28/2025 2:16 PM [facility] RESPIR[facility] THERAPY FIO2 60 % 08/28/2025 2:16 PM [facility] RESPIR[facility] THERAPY Ventilator Mode VC+/AC 2:16 PM [facility] RESPIR[facility] THERAPY Set Tidal Volume 460 08/28/20 25 2:16 PM [facility] RESPIR[facility] THERAPY Set Mech Resp Rate 16 2024 2:16 PM [facility] THERAPY Rate 16 Breaths/ minute 08/28/2025 2:16 PM [facility]IR[facility] THERAPY Comment:Meter: [id number] Line Person: [id number] PEEP 10.0 08/28/2025 2:16 PM [facility] RESPIRAT[facility] THERAPY pH, Temp Corrected 7.312 pH Units 2024 2:16 PM EST [facility] RESPIRAT[facility] THERAPY pCO2, Temperature Corrected 44.7 35 - 48 mm Hg 08/28/2025 2:16 PM EST [facility] RESP[facility] THERAPY pO2, Temperature Corrected 161(H) 83 - 108 mm Hg 08/28/2025 2:16 PM EST [facility] RESPIR[facility] THERAPY Arterial Blood 08/28/2025 2: 14 PM EST 08/28/2025 2:15 PM EST Cristian Mckee DO LAB BLOOD ORDERABLE S Final Result Performing Organization Address City/[facility] Co de Phone Number [facility] RESPIRATORY THERAPY
[address] [place] [address] * POC Glucose Once (08/28/2025 11:09 AM EST) Glucose 89 70 - 130 mg/dL 08/28/2025 11:12 AM EST [facility] Comment:Serial Number: [id number]: [id number] Blood 08/28/2025 11:0 9 AM EST 08/28/2025 11:12 AM EST Cristian Mckee DO POINT OF CARE TEST ORDERABLES Final Result Performing Organization Address [facility] Co de Phone Number [facility]
[address] [place] [address] * XR Abdomen KUB (08/28/2025 10:13 AM EST) Anatomical Region Laterality Modality Body, Abdomen N/A Radiographic Radha ging 08/28/2025 10:5 3 AM EST Impressions 08/28/2025 10:53 AM EST Impression: NG tube tip overlies the mid body of the stomach. Electronically Signed: Stephen Toussaint MD 08/28/2025 10:53 AM EST Workstation ID: [id number] Narrative 08/28/2025 10:53 AM EST XR ABDOMEN [...] MD 08/28/2025 10:53 AM EST Workstation ID: [id number] Hermes Jaramillo MD IMG DIAGNOSTIC IMAGING ORDERA [...] MD 08/28/2025 11:08 AM EST Workstation ID: [id number] Narrative 08/28/2025 11:08 AM EST XR CHEST [...] MD 08/28/2025 11:08 AM EST Workstation ID: [id number] Cristian Mckee DO IMG DIAGNOSTIC IMAG ING ORDERABLES Final Result * (ABNORMAL) Blood Gas, Arterial With Co-Ox (08/28/2025 9:58 AM EST) Site Arterial Line 08/28/2025 10:00 AM EST [facility] RESPIR[facility] THERAPY Andrey's Test N/A 08/28/2025 10:00 AM EST [facility] THERAPY pH, Arterial 7.210(LL) 7.350 - 7.450 pH units 08/28/2025 10:00 AM EST [facility]PIR[facility] THERAPY Comment:85 Value below criti valentín limit pCO2, Arterial 45.7(H) 35.0 - 45.0 mm Hg 08/28/2025 10:00 AM EST [facility] THERAPY Comment:83 Value above refer ence range pO2, Arterial 316.0(H) 83.0 - 108.0 mm Hg 08/28/2025 10:00 AM [facility] RESPIRAT[facility] THERAPY HCO3, Arterial 18.3(L) 20.0 - 26.0 mmol/L 08/28/2025 10:00 AM [facility] RESPIRAT[facility] THERAPY Base Excess, Arterial -9.1(L) 0.0 - 2.0 mmol/L 08/28/2025 10:00 AM [facility] RESPIRAT[facility] THERAPY Hemoglobin, Blood Gas 8.8(L) 13.5 - 17.5 g/dL 08/28/2025 10:00 AM [facility] THERAPY Comment:84 Value below refer ence range Hematocrit, Blood Gas 26.9(L) 38.0 - 51.0 % 08/28/2025 10:00 AM [facility] THERAPY Oxyhemoglobin 98.6 94 - 99 % 08/28/2025 10:00 AM [facility] THERAPY Methemoglobin 0.50 0.00 - 1.50 % 08/28/2025 10:00 AM [facility] THERAPY Carboxyhemoglobin 1.2 0 - 2 % 025 10:00 AM [facility] THERAPY CO2 Content 19.7(L) 22 - 33 mmol/L 08/28/2025 10:00 AM [facility] THERAPY Temperature 37.0 08/28/2025 10:00 AM [facility] THERAPY Barometric Pressure for Blood Gas 08/28/2025 10:00 AM [facility] THERAPY Comment:N/A Modality Ventilator 08/28/2025 10:00 AM [facility] RES[facility] THERAPY FIO2 100 % 08/28/2025 10:00 AM [facility] RESPIR[facility] THERAPY Ventilator Mode VC+/AC 10:00 AM [facility] RES[facility]IR[facility] THERAPY Set Tidal Volume 460 08/28/20 25 10:00 AM [facility] RESPIR[facility] THERAPY Set Mech Resp Rate 16 2024 10:00 AM [facility] THERAPY Rate 16 Breaths/ minute 08/28/2025 10:00 AM [facility]IR[facility] THERAPY Comment:Meter: [id number] Line Person: [id number] PEEP 5.0 08/28/2025 10:00 AM [facility] RESPIRAT[facility] THERAPY Notified Who LANCE HUDSON 08/28/2025 10:00 AM [facility] RESPIRATORY THERAPY Notified By [id number] 08/28/2025 10:00 AM [facility] RES[facility]IR[facility] THERAPY Notified Time 08/28/2025 10:00 08/28/2025 10:00 AM [facility] RES[facility] THERAPY pH, Temp Corrected 7.210 pH Units 2024 10:00 AM [facility] THERAPY pCO2, Temperature Corrected 45.7 35 - 48 mm Hg 08/28/2025 10:00 AM [facility] THERAPY pO2, Temperature Corrected 316(H) 83 - 108 mm Hg 08/28/2025 10:00 AM [facility] RES[facility] THERAPY Arterial Blood 08/28/2025 9: 58 AM EST 08/28/2025 9:59 AM EST us Cristian Mckee DO LAB BLOOD ORDERABLE S Final Result [facility] RESPIRATORY THERAPY
[address] [place] [address], * (ABNORMAL) Manual Differential (08/28/2025 9:55 AM EST) Neutrophil % 65.0 42.7 - 76.0 % 08/28/2025 10:49 PM [facility] Lymphocyte % 9.0(L) 19.6 - 45.3 % 08/28/2025 10:49 PM [facility] Monocyte % 2.0(L) 5.0 - 12.0 % 08/28/2025 10:49 PM [facility] Eosinophil % 0.0(L) 0.3 - 6.2 % 08/28/2025 10:49 PM [facility] Basophil % 0.0 0.0 - 1.5 % 08/28/2025 10:49 PM [facility] Bands % 23.0(H) 0.0 - 5.0 % 08/28/2025 10:49 PM [facility] Atypical Lymphocyte % 1.0 0.0 - 5.0 % 08/28/2025 10:49 PM [facility] Neutrophils Absolute 26.36(H) 1.70 - 7.00 10*3/mm3 08/28/2025 10:49 PM [facility] Lymphocytes Absolute 3.00 0.70 - 3.10 10*3/mm3 08/28/2025 10:49 PM [facility] Monocytes Absolute 0.60 0.10 - 0.90 10*3/mm3 08/28/2025 10:49 PM [facility] Eosinophils Absolute 0.00 0.00 - 0.40 10*3/mm3 08/28/2025 10:49 PM [facility] Basophils Absolute 0.00 0.00 - 0.20 10*3/mm3 08/28/2025 10:49 PM [facility] RBC Morphology Normal Normal 08/28/2025 10:49 PM [facility] Dohle Bodies Present None Seen 08/28/2025 10:49 PM [facility] Platelet Morphology Normal Normal 08/28/2025 10:49 PM [facility] Blood Line / Unknown 08/28/2025 9: 55 AM EST 08/28/2025 10:09 AM EST Cristian Mckee DO LAB BLOOD ORDERABLE S Final Result [facility]
[address] [place] [address], * (ABNORMAL) CBC Auto Differential (08/28/2025 9:55 AM EST) WBC 29.95(HH) 3.40 - 10.80 10*3/mm3 08/28/2025 10:49 PM [facility] RBC 2.33(L) 4.14 - 5.80 10*6/mm3 08/28/2025 10:49 PM [facility] Hemoglobin 7.2(L) 13.0 - 17.7 g/dL 08/28/2025 10:49 PM [facility] Hematocrit 23.2(L) 37.5 - 51.0 % 08/28/2025 10:49 PM [facility] MCV 99.6(H) 79.0 - 97.0 fL 08/28/2025 10:49 PM [facility] MCH 30.9 26.6 - 33.0 pg 08/28/2025 10:49 PM [facility] MCHC 31.0(L) 31.5 - 35.7 g/dL 08/28/2025 10:49 PM [facility] RDW 14.8 12.3 - 15.4 % 08/28/2025 10:49 PM [facility] RDW-SD 53.8 37.0 - 54.0 fl 08/28/2025 10:49 PM [facility] MPV 10.4 6.0 - 12.0 fL 08/28/2025 10:49 PM [facility] Platelets 137(L) 140 - 450 10*3/mm3 08/28/2025 10:49 PM [facility] Blood Line / Unknown 08/28/2025 9: 55 AM EST 08/28/2025 10:09 AM EST [facility] - 08/28/2025 10:49 PM EST The previously reported component NRBC is no longer being reported. Previous result was 0.0 /100 WBC (Reference Range: 0.0-0.2 /100 WBC) on 08/28/2025 at 2222 EST. us Cristian Mckee DO LAB BLOOD ORDERABLE S Final Result [facility]
[address] [place] [address], * (ABNORMAL) Hepatic Function Panel (08/28/2025 9:55 AM EST) Total Protein 5.2(L) 6.0 - 8.5 g/dL 08/28/2025 10:25 PM EST [facility] Albumin 3.5 3.5 - 5.2 g/dL 08/28/2025 10:25 PM EST [facility] ALT (SGPT) 234(H) 1 - 41 U/L 08/28/2025 10:25 PM EST [facility] AST (SGOT) 259(H) 1 - 40 U/L 08/28/2025 10:25 PM EST [facility] Alkaline Phosphatase 71 39 - 117 U/L 08/28/2025 10:25 PM EST [facility] Total Bilirubin 0.8 0.0 - 1.2 mg/dL 08/28/2025 10:25 PM EST [facility] Bilirubin, Direct 0.6(H) 0.0 - 0.3 mg/dL 08/28/2025 10:25 PM EST [facility] Bilirubin, Indirect 0.2 mg/dL 08/28/2025 10:25 PM [facility] Blood Line / Unknown 08/28/2025 9: 55 AM EST 08/28/2025 10:09 AM EST Brian Hughes MD LAB BLOOD ORDERABLES Final R esult [facility]
[address] [place] [address], * (ABNORMAL) Lactic Acid, Plasma (08/28/2025 9:55 AM EST) Lactate 10.4(HH) 0.5 - 2.0 mmol/L 08/28/2025 10:38 AM [facility] Comment:Falsely depressed re sults may occur on samples drawn from patients receiving N-Acetylcysteine (NAC) or Metamizole. Blood Line / Unknown 08/28/2025 9: 55 AM EST 08/28/2025 10:09 AM EST Hermes Jaramillo MD LAB BLOOD ORDERABLES Final Re sult [facility]
[address] [place] [address], * (ABNORMAL) CBC (No Diff) (08/28/2025 9:55 AM EST) WBC 29.84(H) 3.40 - 10.80 10*3/mm3 08/28/2025 10:16 AM [facility] RBC 2.82(L) 4.14 - 5.80 10*6/mm3 08/28/2025 10:16 AM [facility] Hemoglobin 8.3(L) 13.0 - 17.7 g/dL 08/28/2025 10:16 AM [facility] Hematocrit 26.9(L) 37.5 - 51.0 % 08/28/2025 10:16 AM [facility] MCV 95.4 79.0 - 97.0 fL 08/28/2025 10:16 AM [facility] MCH 29.4 26.6 - 33.0 pg 08/28/2025 10:16 AM [facility] MCHC 30.9(L) 31.5 - 35.7 g/dL 08/28/2025 10:16 AM [facility] RDW 14.5 12.3 - 15.4 % 08/28/2025 10:16 AM [facility] RDW-SD 50.2 37.0 - 54.0 fl 08/28/2025 10:16 AM [facility] MPV 10.0 6.0 - 12.0 fL 08/28/2025 10:16 AM EST [facility] Platelets 136(L) 140 - 450 10*3/mm3 08/28/2025 10:16 AM EST [facility] Blood Line / Unknown 08/28/2025 9: 55 AM EST 08/28/2025 10:09 AM EST us Hermes Jaramillo MD LAB BLOOD ORDERABLES Final Re sult [facility]
[address] [place] [address], * (ABNORMAL) Basic Metabolic Panel (08/28/2025 9:55 AM EST) Glucose 112(H) 65 - 99 mg/dL 08/28/2025 10:35 AM [facility] BUN 31.2(H) 8.0 - 23.0 mg/dL 08/28/2025 10:35 AM [facility] Creatinine 1.72(H) 0.76 - 1.27 mg/dL 08/28/2025 10:35 AM [facility] Sodium 145 136 - 145 mmol/L 08/28/2025 10:35 AM [facility] Potassium 3.7 3.5 - 5.2 mmol/L 08/28/2025 10:35 AM [facility] Chloride 106 98 - 107 mmol/L 08/28/2025 10:35 AM [facility] CO2 18.3(L) 22.0 - 29.0 mmol/L 08/28/2025 10:35 AM [facility] Calcium 9.2 8.6 - 10.5 mg/dL 08/28/2025 10:35 AM [facility] BUN/Creatinine Ratio 18.1 7.0 - 25.0 08/28/2025 10:35 AM [facility] Anion Gap 20.7(H) 5.0 - 15.0 mmol/L 08/28/2025 10:35 AM [facility] eGFR 38.2(L) >60.0 mL/min/1.7 3 08/28/2025 10:35 AM EST [facility] Blood Line / Unknown 08/28/2025 9: 55 AM EST 08/28/2025 10:09 AM EST Narrative [facility] - 08/28/2025 10:35 AM EST GFR [...] does not include race as a factor Hermes Jaramillo MD LAB BLOOD ORDERABLES Final Re sult [facility]
[address] [place] [address], * POC Glucose Once (08/28/2025 9:34 AM EST) Glucose 99 70 - 130 mg/dL 08/28/2025 11:00 AM EST [facility] Comment:Serial Number: [id number] Blood 08/28/2025 9:34 AM EST 08/28/2025 11:00 AM EST Cristian Mckee DO POINT OF CARE TEST ORDERABLES Final Result Performing Organization Address [facility] Co de Phone Number [facility]
[address] [place] [address], * [place] Cholangiogram Operative (08/28/2025 8:46 AM EST) Anatomical Region Laterality Modality Abdomen, Other Radio Fluoroscop y 08/28/2025 3:22 PM EST Impressions 08/28/2025 3:24 PM EST Impression: Images saved during intraoperative cholangiogram, see operative report for further detail. Electronically Signed: Brian Crandall MD 08/28/2025 3:24 PM EST Workstation ID: [id number] Narrative 08/28/2025 3:24 PM EST [place] CHOLANGIOGRAM [...] operative report forfurther detail. Electronically Signed: Brian Crandall MD 08/28/2025 3:24 PM EST Workstation ID: [id number] Hermes Jaramillo MD IMG FLUOROSCOPY ORDERABLES Fi nal Result * (ABNORMAL) POC Surgery Labs (08/28/2025 8:43 AM EST) Ionized Calcium 1.35(H) 1.15 - 1.30 mmol/L 08/28/2025 9:41 AM EST [facility] POC Potassium 3.5 3.5 - 4.9 mmol/L 08/28/2025 9:41 AM EST [facility] Sodium 142 138 - 146 mmol/L 08/28/2025 9:41 AM EST [facility] Total CO2 18(L) 24 - 29 mmol/L 08/28/2025 9:41 AM [facility] Hemoglobin 7.8(LL) 12.0 - 17.0 g/dL 08/28/2025 9:41 AM EST [facility] Hematocrit 23(L) 38 - 51 % 08/28/2025 9:41 AM [facility] pCO2, Arterial 44.8 35 - 45 mm Hg 08/28/2025 9:41 AM [facility] pO2, Arterial 340(H) 80 - 105 mmHg 08/28/2025 9:41 AM [facility] Comment:Serial Number: [id number] Base Excess -12.0000(L ) -5 - 5 mmol/L 08/28/2025 9:41 AM [facility] O2 Saturation, Arterial 100(H) 95 - 98 % 08/28/2025 9:41 AM [facility] pH, Arterial 7.18(L) 7.35 - 7.6 pH units 08/28/2025 9:41 AM [facility] HCO3, Arterial 16.5(L) 22 - 26 mmol/L 08/28/2025 9:41 AM [facility] Glucose 117 70 - 130 mg/dL 08/28/2025 9:41 AM [facility] Blood 08/28/2025 8:43 AM EST 08/28/2025 9:41 AM EST Cristian Mckee DO POINT OF CARE TEST ORDERABLES Final Result [facility]
[address] [place] [address], * Tissue Pathology Exam (08/28/2025 8:40 AM EST) Case Report Surgical Pathology Report Case: [id number] Authorizing Provider: Hermes Jaramillo MD Collected: 08/28/2025 08:40 AM Ordering Location: [facility] Received: 08/29/2025 07:43 AM OR Pathologist: Zach Arenas MD Specimen: Gallbladder, gallbladder 08/31/2025 10:47 AM EST [facility] Clinical Information Cholecystitis 08/31/2025 10:47 AM EST [facility] Final Diagnosis GALLBLADDER, CHOLECYSTECTOMY: Chronic cholecystitis. Reactive epithelial changes present; negative for dysplasia. Portion of lymph node negative for malignancy. 08/31/2025 10:47 AM [facility] at 1047 EST Gross [...] mucosal fold is present within the fundus. Pump Oiler sections are submitted as follows: 1A-en face cystic duct margin, neck, body, and fundus with mucosal fold 1B-possible disrupted lymph node. LDP Additional sections are submitted in blocks 1C-1G. LDP 08/30/2025 08/31/2025 10:47 AM [facility] Microscopic Description The slides are reviewed and demonstrate histopathologic features supporting the above rendered diagnosis. 08/31/2025 10:47 AM EST [facility] Tissue Gallbladder structure / Unknown 08/28/2025 8:40 AM EST 08/29/2025 7:43 AM EST us Hermes Jaramillo MD PATHOLOGY/CYTOLOGY ORDERABLES Final Result [facility]
[address] [place] [address], * (ABNORMAL) Blood Gas, Arterial With Co-Ox (08/28/2025 7:18 AM EST) Site Arterial Line 08/28/2025 7:21 AM EST [facility] THERAPY Andrey's Test N/A 08/28/2025 7:21 AM EST [facility] THERAPY pH, Arterial 7.273(L) 7.350 - 7.450 pH units 08/28/2025 7:21 AM [facility] Comment:84 Value below refer ence range pCO2, Arterial 31.2(L) 35.0 - 45.0 mm Hg 08/28/2025 7:21 AM [facility] THER[facility] Comment:84 Value below refer ence range pO2, Arterial 87.0 83.0 - 108.0 mm Hg 08/28/2025 7:21 AM EST [facility] THERAPY HCO3, Arterial 14.4(L) 20.0 - 26.0 mmol/L 08/28/2025 7:21 AM [facility] THERAPY Base Excess, Arterial -11.4(L) 0.0 - 2.0 mmol/L 08/28/2025 7:21 AM EST [facility] THERAPY Hemoglobin, Blood Gas 8.6(L) 13.5 - 17.5 g/dL 08/28/2025 7:21 AM [facility] THERAP[facility] Comment:84 Value below refer ence range Hematocrit, Blood Gas 26.3(L) 38.0 - 51.0 % 08/28/2025 7:21 AM [facility] THERAPY Oxyhemoglobin 95.6 94 - 99 % 08/28/2025 7:21 AM [facility] THERAP[facility] Methemoglobin 0.30 0.00 - 1.50 % 08/28/2025 7:21 AM EST [facility] THERAPY Carboxyhemoglobin 1.5 0 - 2 % 025 7:21 AM EST [facility] THERAPY CO2 Content 15.4(L) 22 - 33 mmol/L 08/28/2025 7:21 AM EST [facility] THERAPY Temperature 37.0 08/28/2025 7:21 AM [facility] THERAP[facility] Barometric Pressure for Blood Gas 08/28/2025 7:21 AM EST [facility] TH[facility] Comment:N/A Modality Nasal Cannula 08/28/2025 7:21 AM [facility] THERAPY FIO2 28 % 08/28/2025 7:21 AM [facility] THERAPY Ventilator Mode 7:21 AM [facility] Comment:Meter: [id number] Line Person: [id number] pH, Temp Corrected 7.273 pH Units 2024 7:21 AM [facility] THERAPY pCO2, Temperature Corrected 31.2(L) 35 - 48 mm Hg 08/28/2025 7:21 AM [facility] THERAPY pO2, Temperature Corrected 87.0 83 - 108 mm Hg 08/28/2025 7:21 AM [facility] THERAPY Arterial Blood 08/28/2025 7: 18 AM EST 08/28/2025 7:20 AM EST us Linda Rubin MD LAB BLOOD ORDERABLES Final Resul t [facility] THERAPY
[address] [place] [address], * (ABNORMAL) POC Glucose Once (08/28/2025 7:07 AM EST) Glucose 147(H) 70 - 130 mg/dL 08/28/2025 7:09 AM EST [facility] Comment:Serial Number: [id number] Blood 08/28/2025 7:07 AM EST 08/28/2025 7:09 AM EST Linda Rubin MD POINT OF CARE TEST ORDERABLES Fi nal Result [facility]
[address] [place] [address], * Type & Screen (08/28/2025 6:38 AM EST) ABO Type A 08/28/2025 7:40 AM EST [facility] RH type Positive 08/28/2025 7:40 AM EST [facility] Antibody Screen Negative 08/28/2025 7:40 AM EST [facility] T&S Expiration Date 08/31/2025 11:59:59 PM 08/28/2025 7:40 AM EST [facility] Blood Venipuncture / Unknown 08/28/2025 6:38 AM EST 08/28/2025 7:06 AM EST Alma Rosa Lucas APRN BLOOD BANK TEST ORDERABLES Edited Result - Final Performing Organization Address City/[facility]/ZIP Co de Phone Number [facility]
[address] [place] [address], * Blood Culture - Blood, Blood, Arterial Line (08/28/2025 6:38 AM EST) Blood Culture No growth at 5 days 09/02/2025 7:00 AM EST [facility] Blood Arterial blood specimen / Unknown Venipuncture / Unknown 08/28/2025 6:38 AM EST 08/28/2025 6:53 AM EST Linda Rubin MD MICROBIOLOGY - GENERAL ORDERABLE S Final Result [facility]
[address] [place] [address], * ABO RH Specimen Verification (08/28/2025 6:13 AM EST) ABO Type A 08/28/2025 10:44 PM EST [facility] RH type Positive 08/28/2025 10:44 PM EST [facility] Blood Venipuncture / Unknown 08/28/2025 6:13 AM EST 08/28/2025 7:24 AM EST Linda Rubin MD BLOOD BANK TEST ORDERABLES Final Result [facility]
[address] [place] [address], * (ABNORMAL) Manual Differential (08/28/2025 6:13 AM EST) Neutrophil % 58.0 42.7 - 76.0 % 08/28/2025 7:23 AM EST [facility] Lymphocyte % 2.0(L) 19.6 - 45.3 % 08/28/2025 7:23 AM [facility] Monocyte % 1.0(L) 5.0 - 12.0 % 08/28/2025 7:23 AM [facility] Eosinophil % 0.0(L) 0.3 - 6.2 % 08/28/2025 7:23 AM [facility] Basophil % 0.0 0.0 - 1.5 % 08/28/2025 7:23 AM [facility] Bands % 33.0(H) 0.0 - 5.0 % 08/28/2025 7:23 AM [facility] Metamyelocyte % 6.0(H) 0.0 - 0.0 % 08/28/2025 7:23 AM [facility] Neutrophils Absolute 38.34(H) 1.70 - 7.00 10*3/mm3 08/28/2025 7:23 AM [facility] Lymphocytes Absolute 0.84 0.70 - 3.10 10*3/mm3 08/28/2025 7:23 AM EST [facility] Monocytes Absolute 0.42 0.10 - 0.90 10*3/mm3 08/28/2025 7:23 AM EST [facility] Eosinophils Absolute 0.00 0.00 - 0.40 10*3/mm3 08/28/2025 7:23 AM [facility] Basophils Absolute 0.00 0.00 - 0.20 10*3/mm3 08/28/2025 7:23 AM EST [facility] nRBC 0.0 0.0 - 0.2 /100 WBC 08/28/2025 7:23 AM [facility] RBC Morphology Normal Normal 08/28/2025 7:23 AM [facility] WBC Morphology Normal Normal 08/28/2025 7:23 AM [facility] Platelet Morphology Normal Normal 08/28/2025 7:23 AM [facility] Blood Line / Unknown 08/28/2025 6: 13 AM EST 08/28/2025 6:32 AM EST Nesha Lopes TECHNICAL PROJECT COORDINATOR LAB BLOOD ORDERABLES Final Resul t [facility]
[address] [place] [address], * Fibrinogen (08/28/2025 6:13 AM EST) Fibrinogen 289 203 - 567 mg/dL 08/28/2025 7:24 AM EST [facility] Blood Line / Unknown 08/28/2025 6: 13 AM EST 08/28/2025 6:33 AM EST Alma Rosa Lucas TECHNICAL PROJECT COORDINATOR LAB BLOOD ORDERABLES Final Result [facility]
[address] [place] [address], [place] [phone] * (ABNORMAL) Protime-INR (08/28/2025 6:13 AM EST) Protime 18.2(H) 12.2 - 15.3 Seconds 08/28/2025 6:55 AM EST [facility] INR 1.41(H) 0.89 - 1.12 08/28/2025 6:55 AM EST [facility] Blood Line / Unknown 08/28/2025 6: 13 AM EST 08/28/2025 6:33 AM EST Alma Rosa Lucas APRN LAB BLOOD ORDERABLES Final Result Performing Organization Address [facility]/ZIP Co de Phone Number [facility]
[address] [place] [address], * (ABNORMAL) STAT Lactic Acid, Reflex (08/28/2025 6:13 AM EST) Pathologist [facility] Lactate 11.6(HH) 0.5 - 2.0 mmol/L 08/28/2025 7:07 AM EST [facility] Comment:Falsely depressed re sults may occur on samples drawn from patients receiving N-Acetylcysteine (NAC) or Metamizole. Blood Line / Unknown 08/28/2025 6: 13 AM EST 08/28/2025 6:33 AM EST Edilma Mike MD LAB BLOOD ORDERABLES Final Re sult [facility]
[address] [place] [address], [place] [phone] * (ABNORMAL) Lipase (08/28/2025 6:13 AM EST) Lipase 80(H) 13 - 60 U/L 08/28/2025 7:08 AM EST [facility] Blood Line / Unknown 08/28/2025 6: 13 AM EST 08/28/2025 6:33 AM EST us Hermes Jaramillo MD LAB BLOOD ORDERABLES Final Re sult [facility]
[address] [place] [address], * (ABNORMAL) Comprehensive Metabolic Panel (08/28/2025 6:13 AM EST) [facility] Glucose 67 65 - 99 mg/dL 08/28/2025 7:40 AM EST [facility] BUN 29.7(H) 8.0 - 23.0 mg/dL 08/28/2025 7:40 AM [facility] Creatinine 1.81(H) 0.76 - 1.27 mg/dL 08/28/2025 7:40 AM [facility] Sodium 147(H) 136 - 145 mmol/L 08/28/2025 7:40 AM [facility] Potassium 3.6 3.5 - 5.2 mmol/L 08/28/2025 7:40 AM [facility] Chloride 106 98 - 107 mmol/L 08/28/2025 7:40 AM EST [facility] CO2 15.5(L) 22.0 - 29.0 mmol/L 08/28/2025 7:40 AM [facility] Calcium 7.5(L) 8.6 - 10.5 mg/dL 08/28/2025 7:40 AM [facility] Total Protein 4.6(L) 6.0 - 8.5 g/dL 08/28/2025 7:40 AM [facility] Albumin 2.9(L) 3.5 - 5.2 g/dL 08/28/2025 7:40 AM [facility] ALT (SGPT) 235(H) 1 - 41 U/L 08/28/2025 7:40 AM [facility] AST (SGOT) 272(H) 1 - 40 U/L 08/28/2025 7:40 AM [facility] Alkaline Phosphatase 101 39 - 117 U/L 08/28/2025 7:40 AM EST [facility] Total Bilirubin 0.7 0.0 - 1.2 mg/dL 08/28/2025 7:40 AM EST [facility] Globulin 1.7 gm/dL 08/28/2025 7:40 AM EST [facility] Comment:Calculated Result A/G Ratio 1.7 g/dL 08/28/2025 7:40 AM EST [facility] BUN/Creatinine Ratio 16.4 7.0 - 25.0 08/28/2025 7:40 AM EST [facility] Anion Gap 25.5(H) 5.0 - 15.0 mmol/L 08/28/2025 7:40 AM [facility] eGFR 36.0(L) >60.0 mL/min/1.7 3 08/28/2025 7:40 AM EST [facility] Blood Line / Unknown 08/28/2025 6: 13 AM EST 08/28/2025 6:33 AM EST Narrative [facility] - 08/28/2025 7:40 AM EST GFR [...] not include race as a factor us Nesha Lopes APRN LAB BLOOD ORDERABLES Final Resul t [facility]
[address] [place] [address], * (ABNORMAL) CBC Auto Differential (08/28/2025 6:13 AM EST) WBC 42.13(HH) 3.40 - 10.80 10*3/mm3 08/28/2025 7:23 AM [facility] RBC 3.05(L) 4.14 - 5.80 10*6/mm3 08/28/2025 7:23 AM [facility] Hemoglobin 9.2(L) 13.0 - 17.7 g/dL 08/28/2025 7:23 AM [facility] Hematocrit 28.9(L) 37.5 - 51.0 % 08/28/2025 7:23 AM [facility] MCV 94.8 79.0 - 97.0 fL 08/28/2025 7:23 AM [facility] MCH 30.2 26.6 - 33.0 pg 08/28/2025 7:23 AM [facility] MCHC 31.8 31.5 - 35.7 g/dL 08/28/2025 7:23 AM [facility] RDW 14.3 12.3 - 15.4 % 08/28/2025 7:23 AM [facility] RDW-SD 49.5 37.0 - 54.0 fl 08/28/2025 7:23 AM [facility] MPV 10.1 6.0 - 12.0 fL 08/28/2025 7:23 AM [facility] Platelets 183 140 - 450 10*3/mm3 08/28/2025 7:23 AM [facility] Blood Line / Unknown 08/28/2025 6: 13 AM EST 08/28/2025 6:32 AM EST [facility] - 08/28/2025 7:23 AM EST The previously reported component NRBC is no longer being reported. Previous result was 0.0 /100 WBC (Reference Range: 0.0-0.2 /100 WBC) on 08/28/2025 at 0709 EST. us Nesha Lopes APRN LAB BLOOD ORDERABLES Final Resul t [facility]
[address] [place] [id number], * (ABNORMAL) POC Glucose Once (08/28/2025 5:58 AM EST) Glucose 69(L) 70 - 130 mg/dL 08/28/2025 6:00 AM EST [facility] Comment:Serial Number: [id number] Blood 08/28/2025 5:58 AM EST 08/28/2025 6:00 AM EST Librado Bangura MD POINT OF CARE TEST ORDERABLES F inal Result [facility]
[address] [place] [address], * XR Chest 1 View (08/28/2025 5:35 AM EST) Anatomical Region Laterality Modality Body N/A Radiographic Radha ging 08/28/2025 5:44 AM EST Impressions 08/28/2025 5:45 AM EST Impression: Right internal jugular CVC catheter with the tip in the proximal SVC. No pneumothorax. No acute cardiopulmonary process. Electronically Signed: Nena Encarnacion MD 08/28/2025 5:45 AM EST Workstation ID: [id number] Narrative 08/28/2025 5:45 AM EST XR CHEST [...] MD 08/28/2025 5:45 AM EST Workstation ID: [id number] us Alma Rosa Lucas APRN IMG DIAGNOSTIC IMAGING ORD ERABLES Final Result * AL ARTL CATHJ/CANNULJ MNTR/TRANSFUSION SPX PRQ, HC INSERTION ARTERIAL CATH (08/28/2025 5:20 AM EST) Narrative Alma Rosa Lucas APRN - 08/28/2025 5:20 AM EST Alma Rosa Lucas APRN 08/28/2025 5:21 AM Insert Arterial Line Date/Time: 08/28/2025 5:20 AM Performed by: Alma Rosa Lucas APRN Authorized by: Alma Rosa Lucas APRN [place] Protocol: Verbal consent obtained?: Yes Risks and [...] time out verifies correct patient, procedure, equipment, computer customer support specialist and site/side marked as required: Preparation: Preparation: [...] IV THERAPY ORDERABLES Suzanna wright Result * AL INSJ NON-TUNNELED CENTRAL VENOUS CATH AGE 3 YR/>, HC CENTRAL LINE INSERTION (08/28/2025 5:19 AM EST) Narrative Alma Rosa Luacs APRN - 08/28/2025 5:19 AM EST Alma [...] to verify the correct patient, procedure, equipment, computer customer support specialist and site/side marked as required. Indications: vascular [...] well with no immediate complications Alma Rosa Lucas TECHNICAL PROJECT COORDINATOR PROCEDURE/MINOR SURGICAL O RDERABLES Final Result * (ABNORMAL) Blood Gas, Venous With Co-Ox (08/28/2025 2:22 AM EST) Site Nurse/ Draw 08/28/2025 2:22 AM [facility] RESPIRATORY THERAPY pH, Venous 7.299(L) 7.310 - 7.410 pH Units 08/28/2025 2:22 AM [facility] RESPIRATORY THERAPY pCO2, Venous 36.1(L) 41.0 - 51.0 mm Hg 08/28/2025 2:22 AM [facility] RESPIRATORY THERAPY Comment:84 Value below refer ence range pO2, Venous 52.1 27.0 - 53.0 mm Hg 08/28/2025 2:22 AM [facility] RESPIRATORY THERAPY HCO3, Venous 17.7(L) 22.0 - 28.0 mmol/L 08/28/2025 2:22 AM [facility] RESPIRATORY THERAPY Base Excess, Venous -8.0(L) -2.0 - 2.0 mmol/L 08/28/2025 2:22 AM [facility] RESPIRATORY THERAPY Hemoglobin, Blood Gas 10.2(L) 13.5 - 17.5 g/dL 08/28/2025 2:22 AM [facility] RESPIRATORY THERAPY Oxyhemoglobin Venous 84.3 % 06/2025 2:22 AM [facility] RESPIRATORY THERAPY Methemoglobin Venous 0.5 % 06/2025 2:22 AM [facility] RESPIRATORY THERAPY Carboxyhemoglobin Venous 1.4 % 08/28/2025 2:22 AM [facility] RESPIRATORY THERAPY CO2 Content 18.8(L) 22 - 33 mmol/L 08/28/2025 2:22 AM EST [facility] RESPIRATORY THERAPY Temperature 37.0 08/28/2025 2:22 AM EST [facility] RESPIRATORY THERAPY Barometric Pressure for Blood Gas 08/28/2025 2:22 AM EST [facility] RESPIRATORY THERAPY Comment:N/A Modality Nasal Cannula 08/28/2025 2:22 AM EST [facility] RESPIRATORY THERAPY FIO2 26 % 08/28/2025 2:22 AM EST [facility] RESPIRATORY THERAPY Rate 0 Breaths/ minute 08/28/2025 2:22 AM EST [facility] RESPIRATORY THERAPY PIP 0 cmH2O 08/28/2025 2:22 AM EST [facility] RESPIRATORY THERAPY Comment:Meter: [id number] Line Person: [id number] IPAP 0 cm H2O 08/28/2025 2:22 AM EST [facility] RESPIRATORY THERAPY EPAP 0 cm H2O 08/28/2025 2:22 AM EST [facility] RESPIRATORY THERAPY Venous Blood 08/28/2025 2:22 AM EST 08/28/2025 2:22 AM EST us Librado Bangura MD LAB BLOOD ORDERABLES Final Resu lt [facility] RESPIRATORY THERAPY
[address] [place] [address], * ECG 12 Lead Rhythm Change (08/28/2025 2:00 AM EST) Pathologist [facility] QT Interval 316 ms ECG QTC Interval [...] Referred By: Confirmed By: Luís Ellis MD us Alma Rosa Lucas APRN ECG ORDERABLES Final Resu lt ECG * Blood Culture - Blood, Hand, Left (08/28/2025 1:45 AM EST) Blood Culture No growth at 5 days 09/02/2025 6:45 AM EST [facility] Blood Structure of left hand / Unknown Venipuncture / Unknown 08/28/2025 1:45 AM EST 08/28/2025 6:42 AM EST Linda Rubin MD MICROBIOLOGY - GENERAL ORDERABLE S Final Result [facility]
[address] [place] [address], [place] [phone] * (ABNORMAL) Basic Metabolic Panel (08/28/2025 1:35 AM EST) [facility] Glucose 78 65 - 99 mg/dL 08/28/2025 2:25 AM EST [facility] BUN 25.7(H) 8.0 - 23.0 mg/dL 08/28/2025 2:25 AM EST [facility] Creatinine 1.85(H) 0.76 - 1.27 mg/dL 08/28/2025 2:25 AM EST [facility] Sodium 143 136 - 145 mmol/L 08/28/2025 2:25 AM EST [facility] Potassium 3.7 3.5 - 5.2 mmol/L 08/28/2025 2:25 AM EST [facility] Chloride 106 98 - 107 mmol/L 08/28/2025 2:25 AM EST [facility] CO2 17.9(L) 22.0 - 29.0 mmol/L 08/28/2025 2:25 AM EST [facility] Calcium 7.6(L) 8.6 - 10.5 mg/dL 08/28/2025 2:25 AM EST [facility] BUN/Creatinine Ratio 13.9 7.0 - 25.0 08/28/2025 2:25 AM EST [facility] Anion Gap 19.1(H) 5.0 - 15.0 mmol/L 08/28/2025 2:25 AM EST [facility] eGFR 35.0(L) >60.0 mL/min/1.7 3 08/28/2025 2:25 AM EST [facility] Blood Line / Unknown 08/28/2025 1: 35 AM EST 08/28/2025 1:53 AM EST [facility] - 08/28/2025 2:25 AM EST [...] ORDERABLES Final Resul t Performing Organization Address [facility] de Phone Number [facility]
[address] [place] [address], * (ABNORMAL) STAT Lactic Acid, Reflex (08/28/2025 1:35 AM EST) Lactate 8.0(HH) 0.5 - 2.0 mmol/L 08/28/2025 2:38 AM EST [facility] Comment:Falsely depressed re sults may occur on samples drawn from patients receiving N-Acetylcysteine (NAC) or Metamizole. Blood Line / Unknown 08/28/2025 1: 35 AM EST 08/28/2025 1:53 AM EST Edilma Mike MD LAB BLOOD ORDERABLES Final Re sult Performing Organization Address [facility] Phone Number [facility]
[address] [place] [address], * Magnesium (08/28/2025 1:35 AM EST) Pathologist [facility] Magnesium 1.8 1.6 - 2.4 mg/dL 08/28/2025 2:25 AM EST [facility] Blood Line / Unknown 08/28/2025 1: 35 AM EST 08/28/2025 1:53 AM EST Linda Rubin MD LAB BLOOD ORDERABLES Final Resul t Performing Organization Address [facility] Phone Number [facility]
[address] [place] [address], * POC Glucose Once (08/27/2025 11:12 PM EST) Glucose 97 70 - 130 mg/dL 08/27/2025 11:14 PM EST [facility] Comment:Serial Number: [id number] Blood 08/27/2025 11:1 2 PM EST 08/27/2025 11:14 PM EST Librado Bangura MD POINT OF CARE TEST ORDERABLES F inal Result [facility]
[address] [place] [address], * (ABNORMAL) Blood Gas, Arterial With Co-Ox (08/27/2025 10:48 PM EST) Site Left Brachial 08/27/2025 10:49 PM EST [facility] THERAPY Andrey's Test Positive 08/27/2025 10:49 PM EST [facility] THERAPY pH, Arterial 7.278(L) 7.350 - 7.450 pH units 08/27/2025 10:49 PM [facility] THERAPY Comment:84 Value below refer ence range pCO2, Arterial 32.9(L) 35.0 - 45.0 mm Hg 08/27/2025 10:49 PM [facility] THERAP[facility] Comment:84 Value below refer ence range pO2, Arterial 67.0(L) 83.0 - 108.0 mm Hg 08/27/2025 10:49 PM EST [facility] THER[facility] Comment:84 Value below refer ence range HCO3, Arterial 15.4(L) 20.0 - 26.0 mmol/L 08/27/2025 10:49 PM EST [facility] THERAPY Base Excess, Arterial -10.4(L) 0.0 - 2.0 mmol/L 08/27/2025 10:49 PM [facility] THERAPY Hemoglobin, Blood Gas 10.5(L) 13.5 - 17.5 g/dL 08/27/2025 10:49 PM [facility] THERAPY Comment:84 Value below refer ence range Hematocrit, Blood Gas 32.2(L) 38.0 - 51.0 % 08/27/2025 10:49 PM [facility] THERAPY Oxyhemoglobin 91.0(L) 94 - 99 % 08/27/2025 10:49 PM [facility] THERAP[facility] Comment:84 Value below refer ence range Methemoglobin 0.30 0.00 - 1.50 % 08/27/2025 10:49 PM [facility] THERAP[facility] Carboxyhemoglobin 1.4 0 - 2 % 025 10:49 PM [facility] THERAP[facility] CO2 Content 16.4(L) 22 - 33 mmol/L 08/27/2025 10:49 PM [facility] THERAPY Temperature 37.0 08/27/2025 10:49 PM [facility] THERAP[facility] Barometric Pressure for Blood Gas 08/27/2025 10:49 PM [facility] THER[facility] Comment:N/A Modality Room Air 08/27/2025 10:49 PM [facility] THERAPY FIO2 21 % 08/27/2025 10:49 PM [facility] THER[facility] Rate 0 Breaths/ minute 08/27/2025 10:49 PM [facility] THERAPY PIP 0 cmH2O 08/27/2025 10:49 PM [facility] THERAP[facility] Comment:Meter: [id number] Line Person: [id number] IPAP 0 cm H2O 08/27/2025 10:49 PM [facility] THERAPY EPAP 0 cm H2O 08/27/2025 10:49 PM [facility] THERAPY pH, Temp Corrected 7.278 pH Units 2024 10:49 PM [facility] THERAPY pCO2, Temperature Corrected 32.9(L) 35 - 48 mm Hg 08/27/2025 10:49 PM [facility] THERAPY pO2, Temperature Corrected 67.0(L) 83 - 108 mm Hg 08/27/2025 10:49 PM [facility] THERAP[facility] Arterial Blood 08/27/2025 10 :48 PM EST 08/27/2025 10:48 PM EST Librado Bangura MD LAB BLOOD ORDERABLES Final Resu lt [facility] THERAPY
[address] [place] [address], * Magnesium (08/27/2025 10:34 PM EST) Pathologist [facility] Magnesium 1.9 1.6 - 2.4 mg/dL 08/28/2025 1:51 AM EST [facility] Blood Venipuncture / Unknown 08/27/2025 10:34 PM EST 08/27/2025 11:26 PM EST Linda Rubin MD LAB BLOOD ORDERABLES Final Resul t Performing Organization Address City/[facility]/ZIP Co de Phone Number [facility]
[address] [place] [address], * Hepatitis Panel, Acute (08/27/2025 10:34 PM EST) Pathologist [facility] Hepatitis B Surface Ag Non-Reacti ve Non-Reacti ve 08/28/2025 12:05 AM EST [facility] Hep A IgM Non-Reacti ve Non-Reacti ve 08/28/2025 12:05 AM [facility] Hep B C IgM Non-Reacti ve Non-Reacti ve 08/28/2025 12:05 AM EST [facility] Hepatitis C Ab Non-Reacti ve Non-Reacti ve 08/28/2025 12:05 AM EST [facility] Blood Venipuncture / Unknown 08/27/2025 10:34 PM EST 08/27/2025 11:26 PM EST Narrative [facility] - 08/28/2025 12:05 AM EST Results may be falsely decreased if patient taking Biotin. Hermes Jaramillo MD LAB BLOOD ORDERABLES Final Re sult Performing Organization Address [facility] de Phone Number [facility]
[address] [place] [address], * (ABNORMAL) High Sensitivity Troponin T 1Hr (08/27/2025 10:34 PM EST) HS Troponin T 34(H) <22 ng/L 08/27/2025 11:53 PM EST [facility] Troponin T Numeric Delta -5 ng/L 08/27/2025 11:53 PM EST [facility] Troponin T % Delta -13 Abnormal if >/= 20% 08/27/2025 11:53 PM EST [facility] Blood Venipuncture / Unknown 08/27/2025 10:34 PM EST 08/27/2025 11:26 PM EST [facility] - 08/27/2025 11:53 PM EST High [...] to an underlying chronic condition. Nesha Lopes ANTWON LAB BLOOD ORDERABLES Final Resul t Performing Organization Address [facility] Co de Phone Number [facility]
[address] [place] [address], * (ABNORMAL) STAT Lactic Acid, Reflex (08/27/2025 10:34 PM EST) Pathologist [facility] Lactate 7.6(HH) 0.5 - 2.0 mmol/L 08/28/2025 12:35 AM EST [facility] Comment:Falsely depressed re sults may occur on samples drawn from patients receiving N-Acetylcysteine (NAC) or Metamizole. Blood Venipuncture / Unknown 08/27/2025 10:34 PM EST 08/27/2025 11:26 PM EST Edilma Mike MD LAB BLOOD ORDERABLES Final Re sult [facility]
[address] [place] [address], * CT Abdomen Pelvis Without Contrast (08/27/2025 [...] MD 08/27/2025 10:25 PM EST Workstation ID: [id number] Narrative 08/27/2025 10:[address] ABDOMEN [...] MD 08/27/2025 10:25 PM EST Workstation ID: [id number] Hermes Jaramillo MD [facility] [place] ORDER[place]LES Final Resul t * ECG [...] Referred By: Confirmed By: Luz Marina Bob Procedure Note Luz Marina Bob MD [...] 59 - 158 mcg/dL 08/27/2025 10:04 PM EST [facility] Iron Saturation (TSAT) 28 20 - 50 % 08/27/2025 10:04 PM EST [facility] Transferrin 209 200 - 360 mg/dL 08/27/2025 10:04 PM EST [facility] TIBC 311 298 - 536 mcg/dL 08/27/2025 10:04 PM EST [facility] Ferritin 160.00 30.00 - 400.00 ng/mL 08/27/2025 10:04 PM EST [facility] Blood Venipuncture / Unknown 08/27/2025 7:43 PM EST 08/27/2025 7:53 PM EST [facility] - 08/27/2025 10:04 PM EST Results may be falsely decreased if patient taking Biotin. Librado Bangura MD LAB BLOOD ORDERABLES Final Resu lt Performing Organization Address [facility] Co de Phone Number [facility]
[address] [place] [address], * (ABNORMAL) High Sensitivity Troponin T (08/27/2025 7:43 PM EST) Pathologist [facility] HS Troponin T 39(H) <22 ng/L 08/27/2025 8:56 PM EST [facility] Blood Venipuncture / Unknown 08/27/2025 7:43 PM EST 08/27/2025 7:53 PM EST [facility] - 08/27/2025 8:56 PM EST [...] ORDERABLES Final Resul t Performing Organization Address [facility] Co de Phone Number [facility]
[address] [place] [address], * (ABNORMAL) CBC Auto Differential (08/27/2025 7:43 PM EST) Pathologist [facility] WBC 15.69(H) 3.40 - 10.80 10*3/mm3 08/27/2025 7:56 PM EST [facility] RBC 3.66(L) 4.14 - 5.80 10*6/mm3 08/27/2025 7:56 PM [facility] Hemoglobin 11.1(L) 13.0 - 17.7 g/dL 08/27/2025 7:56 PM [facility] Hematocrit 34.2(L) 37.5 - 51.0 % 08/27/2025 7:56 PM [facility] MCV 93.4 79.0 - 97.0 fL 08/27/2025 7:56 PM [facility] MCH 30.3 26.6 - 33.0 pg 08/27/2025 7:56 PM [facility] MCHC 32.5 31.5 - 35.7 g/dL 08/27/2025 7:56 PM [facility] RDW 13.5 12.3 - 15.4 % 08/27/2025 7:56 PM [facility] RDW-SD 46.2 37.0 - 54.0 fl 08/27/2025 7:56 PM [facility] MPV 9.2 6.0 - 12.0 fL 08/27/2025 7:56 PM [facility] Platelets 171 140 - 450 10*3/mm3 08/27/2025 7:56 PM [facility] Neutrophil % 93.0(H) 42.7 - 76.0 % 08/27/2025 7:56 PM [facility] Lymphocyte % 2.7(L) 19.6 - 45.3 % 08/27/2025 7:56 PM [facility] Monocyte % 3.1(L) 5.0 - 12.0 % 08/27/2025 7:56 PM [facility] Eosinophil % 0.0(L) 0.3 - 6.2 % 08/27/2025 7:56 PM [facility] Basophil % 0.2 0.0 - 1.5 % 08/27/2025 7:56 PM [facility] Immature Grans % 1.0(H) 0.0 - 0.5 % 08/27/2025 7:56 PM EST [facility] Neutrophils, Absolute 14.59(H) 1.70 - 7.00 10*3/mm3 08/27/2025 7:56 PM EST [facility] Lymphocytes, Absolute 0.43(L) 0.70 - 3.10 10*3/mm3 08/27/2025 7:56 PM EST [facility] Monocytes, Absolute 0.49 0.10 - 0.90 10*3/mm3 08/27/2025 7:56 PM EST [facility] Eosinophils, Absolute 0.00 0.00 - 0.40 10*3/mm3 08/27/2025 7:56 PM EST [facility] Basophils, Absolute 0.03 0.00 - 0.20 10*3/mm3 08/27/2025 7:56 PM EST [facility] Immature Grans, Absolute 0.15(H) 0.00 - 0.05 10*3/mm3 08/27/2025 7:56 PM EST [facility] nRBC 0.0 0.0 - 0.2 /100 WBC 08/27/2025 7:56 PM EST [facility] Blood Venipuncture / Unknown 08/27/2025 7:43 PM EST 08/27/2025 7:53 PM EST us Edilma Mike MD LAB BLOOD ORDERABLES Final Re sult [facility]
[address] [place] [address], * (ABNORMAL) Lipase (08/27/2025 7:43 PM EST) Lipase 576(H) 13 - 60 U/L 08/27/2025 8:34 PM EST [facility] Blood Venipuncture / Unknown 08/27/2025 7:43 PM EST 08/27/2025 7:53 PM EST us Edilma Mike MD LAB BLOOD ORDERABLES Final Re sult Performing Organization Address [facility] de Phone Number [facility]
[address] [place] [address], * (ABNORMAL) Lactic Acid, Plasma (08/27/2025 7:43 PM EST) Pathologist [facility] Lactate 7.2(HH) 0.5 - 2.0 mmol/L 08/27/2025 8:22 PM EST [facility] Comment:Falsely depressed re sults may occur on samples drawn from patients receiving N-Acetylcysteine (NAC) or Metamizole. Blood Venipuncture / Unknown 08/27/2025 7:43 PM EST 08/27/2025 7:53 PM EST Edilma Mike MD LAB BLOOD ORDERABLES Final Re sult Performing Organization Address [facility] de Phone Number [facility]
[address] [place] [address], * (ABNORMAL) Procalcitonin (08/27/2025 7:43 PM EST) Pathologist [facility] Procalcitonin 68.30(H) 0.00 - 0.25 ng/mL 08/27/2025 8:23 PM EST [facility] Blood Venipuncture / Unknown 08/27/2025 7:43 PM EST 08/27/2025 7:53 PM EST Narrative [facility] - 08/27/2025 8:23 PM EST As [...] Day 4 values are available. Refer to http://www.oaqdox-ryr-dwlspzgfqf.com Change in PCT <=80% A decrease of [...] diagnosed with severe sepsis or septic shock. Edilma Mike MD LAB BLOOD ORDERABLES Final Re sult [facility]
[address] [place] [address], * (ABNORMAL) Comprehensive Metabolic Panel (08/27/2025 7:43 PM EST) [facility] Glucose 110(H) 65 - 99 mg/dL 08/27/2025 8:23 PM EST [facility] BUN 20.6 8.0 - 23.0 mg/dL 08/27/2025 8:23 PM EST [facility] Creatinine 1.49(H) 0.76 - 1.27 mg/dL 08/27/2025 8:23 PM EST [facility] Sodium 143 136 - 145 mmol/L 08/27/2025 8:23 PM EST [facility] Potassium 3.5 3.5 - 5.2 mmol/L 08/27/2025 8:23 PM EST [facility] Chloride 110(H) 98 - 107 mmol/L 08/27/2025 8:23 PM EST [facility] CO2 15.6(L) 22.0 - 29.0 mmol/L 08/27/2025 8:23 PM EST [facility] Calcium 8.1(L) 8.6 - 10.5 mg/dL 08/27/2025 8:23 PM [facility] Total Protein 5.4(L) 6.0 - 8.5 g/dL 08/27/2025 8:23 PM [facility] Albumin 3.4(L) 3.5 - 5.2 g/dL 08/27/2025 8:23 PM [facility] ALT (SGPT) 275(H) 1 - 41 U/L 08/27/2025 8:23 PM [facility] AST (SGOT) 456(H) 1 - 40 U/L 08/27/2025 8:23 PM [facility] Alkaline Phosphatase 106 39 - 117 U/L 08/27/2025 8:23 PM [facility] Total Bilirubin 1.0 0.0 - 1.2 mg/dL 08/27/2025 8:23 PM [facility] Globulin 2.0 gm/dL 08/27/2025 8:23 PM [facility] Comment:Calculated Result A/G Ratio 1.7 g/dL 08/27/2025 8:23 PM [facility] BUN/Creatinine Ratio 13.8 7.0 - 25.0 08/27/2025 8:23 PM [facility] Anion Gap 17.4(H) 5.0 - 15.0 mmol/L 08/27/2025 8:23 PM [facility] eGFR 45.4(L) >60.0 mL/min/1.7 3 08/27/2025 8:23 PM [facility] Blood Venipuncture / Unknown 08/27/2025 7:43 PM EST 08/27/2025 7:53 PM [facility] - 08/27/2025 8:23 PM EST [...] does not include race as a factor Result [facility] Edilma Mike MD LAB BLOOD ORDERABLES Final Re sult [facility]
[address] [place] [address], * LABS SCANNED (08/27/2025) Result [facility] LAB BLOOD ORDERABLES Final Re sult * IMAGING SCANNED (08/27/2025) Anatomical Region Laterality Modality Radiographic Radha ging Result [facility] IMG DIAGNOSTIC IMAGING ORDERA BLES Final Result * IMAGING SCANNED (08/27/2025) Anatomical Region Laterality Modality Radiographic Radha ging Result [facility] IMG DIAGNOSTIC IMAGING ORDERA BLES Final Result * IMAGING SCANNED (08/27/2025) Anatomical Region Laterality Modality Radiographic Radha ging Result [facility] IMG DIAGNOSTIC IMAGING ORDERA BLES Final [...] 50 g 50 g, Intravenous, Once, On [place] 08/28/25 at 0700, For 1 dose, Indications: Crystalloid Refractory ShockIndications:Crystalloid Refractory Shock New Bag 08/28/2025 6:45 AM EST 50 g arformoterol (BROVANA) nebulizer solution 15 mcg 15 mcg, Nebulization, 2 Times Daily - RT, First dose on [place] 08/28/25 at 0145, Include Respiratory Treatment Education Keep refrigerated. Given 09/04/2025 10:51 PM EST 15 mcg Given 09/04/2025 8:33 AM EST 15 mcg Given 09/03/2025 8:55 PM EST 15 mcg barium sulfate (VARIBAR PUDDING) oral paste 20 mL 20 mL, Oral, Once in Imaging, On Fri09/02/25 at 1230, For 1 dose, (BK) Shake well before administration. Given 09/02/2025 11:34 AM EST 20 mL barium sulfate (VARIBAR PUDDING) oral paste 20 mL 20 mL, Oral, Once in Imaging, On 09/05/25 [...] 1 dose, (BK) Shake well before administration. Given 09/05/2025 9:05 AM EST 100 mL barium sulfate oral suspension 10 mL 10 mL, Oral, Once in Imaging, On Fri09/02/25 at 1230, For 1 dose, (BK) Shake well before administration. Given 09/02/2025 11:33 AM EST 10 mL barium sulfate oral suspension 10 mL 10 mL, Oral, Once in Imaging, On Fri09/05/25 at 1000, For 1 dose, ([facility]) Shake well before administration. Given 09/05/2025 9:05 AM EST 10 mL barium sulfate oral suspension 50 mL 50 mL, Oral, Once in Imaging, On Fri09/02/25 at 1230, For 1 dose, ([facility]) Shake well before administration. Given 09/02/2025 11:33 [...] To Safely Swallow, Starting on Fri08/28/25 at 0623 Given 08/28/2025 6:38 AM EST 25 g fentaNYL 2500 mcg/250 mL NS infusion 50-300 mcg/hr (5-30 mL/hr), Intravenous, Titrated, Starting on Fri08/28/25 at 1100, For 7 days, Start infusion [...] for injection by adding 1 mL of crm marketing analyst-supplied sterile diluent or sterile water for injection [...] greater than 160, Starting on Fri08/30/25 at 2006, Hold for SBP less than 100, DBP [...] (PREMIX) infusion 2 g, Intravenous, Once, On Fri08/28/25 at 0330, For 1 dose New Bag 08/28/2025 2:55 AM EST 2 g melatonin tablet 5 mg 5 mg, Nasogastric, Nightly PRN, Sleep, Starting on Fri08/29/25 at 0925 Given 08/29/2025 9:48 PM EST 5 mg melatonin tablet 5 mg 5 mg, Oral, Nightly PRN, Sleep, Starting on [place] 09/01/25 at 1153 montelukast (SINGULAIR) tablet 10 mg 10 mg, Nasogastric, Nightly, First dose (after last modification) on Fri08/29/25 at 2100 Given 08/31/2025 9:47 PM EST 10 mg Given 08/30/2025 9:10 PM EST 10 mg Given 08/29/2025 8:49 PM EST 10 mg montelukast (SINGULAIR) tablet 10 mg 10 mg, Oral, Nightly, First dose (after last modification) on [place] 09/01/25 at 2100 Given 09/04/2025 9:27 PM EST [...] with warm soapy water or use hand architectural draftsman. 3. Open the tube of mupirocin 2%. [...] to 3.5-52.54 mL/hr), Intravenous, Titrated, Starting on Fri08/28/25 at 0045, Initiate infusion at 0.02 mcg/kg/min [...] tablet 40 mg 40 mg, Oral, Every Automatic Spooler Operator, First dose on Fri09/04/25 at 0600, Do not crush or chew the capsules or tablets. The drug may not work as designed if the capsule or tablet is crushed or chewed. Swallow whole. Swallow whole; do not crush, split, or chew. Given 09/05/2025 6:32 AM EST 40 mg Given 09/04/2025 5:11 AM EST 40 mg pantoprazole (PROTONIX) injection 40 mg 40 mg, Intravenous, Every Automatic Spooler Operator, First dose on 08/29/25 at 0645, Dilute [...] Hours, First dose (after last modification) on Fri08/29/25 at 0830, For 12 doses, Indications: Intra-Abdominal [...] 2 packet 2 packet, Oral, Once, On Fri09/01/25 at 0815, For 1 dose, Take with full glass of water Given 09/01/2025 9:29 AM EST 2 packets potassium & sodium phosphates (PHOS-NAK) 280-160-250 MG packet 2 packet 2 packet, Oral, Once, On Fri09/01/25 at 2030, For 1 dose, Take with [...] Oral, Every 4 Hours, First dose on Fri09/01/25 at 0815, For 2 doses, For use [...] Daily, First dose (after last modification) on Fri08/31/25 at 2100, Start bowel management regimen if [...] infusion 100 mL/hr, Intravenous, Continuous, Starting on Fri08/28/25 at 0345, For 15 hours, Indications: Systemic AcidosisIndications:System ic Acidosis Currently Infusing 08/28/2025 7:56 AM EST 100 mL/hr 100 mL/hr New Bag 08/28/2025 5:42 AM EST 100 mL/hr 100 mL/hr sodium bicarbonate 150 mEq/1000 mL D5W infusion 150 mL/hr, Intravenous, Continuous, Starting on Fri08/28/25 at 1045, For 10 hours, Indications: Systemic [...] Units/min (9 mL/hr), Intravenous, Continuous, Starting on Fri08/28/25 at 0330 New Bag 08/29/2025 8:30 AM [...] - RT, First dose on Fri08/28/25 at 0145, Include Respiratory Treatment Education Keep refrigerated. 0745 (Given - Provider: Vanessa Vale, PARTNER MANAGEMENT CONSULTANT)0930 (Canceled Entry - Provider: Vanessa Vale, PARTNER MANAGEMENT CONSULTANT)2055 (Given - Provider: Monse Paul, PARTNER MANAGEMENT CONSULTANT) 0833 (Given - Provider: Socorro Potts, PARTNER MANAGEMENT CONSULTANT)2251 (Given - Provider: Raffaele Costa, PARTNER MANAGEMENT CONSULTANT) 0954 (Not Given - Provider: Kalani David, PARTNER MANAGEMENT CONSULTANT - Reason: Patient not available) barium sulfate (VARIBAR PUDDING) oral paste 20 mL (COMPLETED) 20 mL, Oral, Once in Imaging, On Fri09/05/25 at 1000, For 1 dose, ([facility]) Shake well before administration. 0905 (Given - [...] On Fri09/05/25 at 1000, For 1 dose, ([facility]) Shake well before administration. 0905 (Given - Provider: Sammi Nicolas) budesonide (PULMICORT) nebulizer solution 0.5 mg 0.5 mg, Nebulization, 2 Times Daily - RT, First dose on 08/28/25 at 1045, Do not shake. Protect from light. 0745 (Given - Provider: Vanessa Vale, PARTNER MANAGEMENT CONSULTANT)0930 (Canceled Entry - Provider: Vanessa Vale, PARTNER MANAGEMENT CONSULTANT)2100 (Given - Provider: Monse Paul, PARTNER MANAGEMENT CONSULTANT) 0833 (Given - Provider: Socorro Potts, PARTNER MANAGEMENT CONSULTANT)2251 (Given - Provider: Raffaele Costa, PARTNER MANAGEMENT CONSULTANT) 0954 (Not Given - Provider: Kalani David, BARIN - Reason: Patient not available) furosemide (LASIX) [...] Prophylaxis 0530 (Given - Provider: Rita Palacios RN)1412 (Given - Provider: Velvet Torres RN)212 (Given - Provider: Lana Boyd, BECCA) 0511 (Given - Provider: Lana Boyd, RN)1413 (Given - Provider: Velvet Torres RN)212 (Given - Provider: Lana Boyd, BECCA) 0632 (Given - Provider: Lana Boyd, RN)1400 [...] at 2100 212 (Given - Provider: Lana Boyd, BECCA) 212 (Given - Provider: Lana Boyd, RN) pantoprazole (PROTONIX) EC tablet 40 mg 40 mg, Oral, Every Automatic Spooler Operator, First dose on 09/04/25 at 0600, Do [...] 40 mg (CANCELED) 40 mg, Intravenous, Every Automatic Spooler Operator, First dose on 08/29/25 at 0645, Dilute [...] Lana Boyd RN - Reason: Patient/family refused) 08 (Given - Provider: Velvet Torres RN) sodium chloride 0.9 % flush 10 mL 10 mL, Intravenous, Every 12 Hours Scheduled, First dose on 08/27/25 at 2100 0827 (Given - Provider: Velvet Torres RN)2129 (Given - Provider: Lana Boyd RN) 820 (Given - Provider: Velvet Torres RN)2126 (Given - Provider: Lana Boyd, RN) 801 (Given - Provider: Velvet Torres [...] BPA Driven Protocol Open Order & Select S Electrolyte Replacement Protocol Algorithm to View Details dextrose (D50W) (25 g/50 mL) IV injection 25 g 25 g, Intravenous, Every 15 Minutes PRN, Low Blood Sugar, Blood Sugar Less Than 70, Patient Has IV Access - Unresponsive, NPO or Unable To Safely Swallow, Starting on Fri08/28/25 at 0623 glucagon (GLUCAGEN) injection 1 mg 1 mg, Subcutaneous, Every 15 Minutes PRN, Low Blood Sugar, Blood Glucose Less Than 70 - Patient Without IV Access - Unresponsive, NPO or Unable To Safely Swallow, Starting on Fri08/28/25 at 0623, Reconstitute powder for injection by adding 1 mL of crm marketing analyst-supplied sterile diluent or sterile water for injection [...] BPA Driven Protocol Open Order & Select [facility] Electrolyte Replacement Protocol Algorithm to View Details [...] BPA Driven Protocol Open Order & Select [facility] Electrolyte Replacement Protocol Algorithm to View Details [...] BPA Driven Protocol Open Order & Select [facility] Electrolyte Replacement Protocol Algorithm to View Details [...] 4 Hours PRN, Mild Pain, Starting on Fri09/01/25 at 1153, If given for fever, use [...] ineffective. documented in this encounter Care Teams Drywall Hanger Helper Relationship Specialty Start Date End Date Lisa Arreola APRN [address] [place] [address] PCP - General Nurse Practitioner 08/29/25 documented as of this encounter
--- OUTSIDE RECORDS SUMMARY | 2025-08-28 07:56 | XMS_ITS | Encounter Summary ---
Author Organization [facility] Address [address] [place] [address] Care Team Providers Care Pie Bakery Laborer Name Role Phone Provider, No Known Primary Care Provider Unavail able Reason for Visit * Auth/Cert Specialty Diagnoses / Procedures Referred By Contac t Referred To Contact Diagnoses Pancreatitis (pancreatitis) Referral ID Status Reason Start Date Expiration Date Visits Re quested Visits Authorized [id number] 1 1 Encounter Details Date Type Department Care Team (Late st Contact Info) Description 08/28/2025 7:56 AM EST Anesthesia Event [facility] OR [address] [place] [address] Kourtney Booth MD [address] [place] [address] Margo Chung CRNA [address] [place] [address] Anesthesia Record Procedure Summary Procedure Name Responsible [...] 08/29/25; 1730 08/28/25 0000 by Nazia Arauz, CABINET MAKER 08/29/25 1730 by Kalani David RRT Peripheral [...] by Genet Estevez RN 09/05/25 1409 by Siir Hopkins RN Arterial Line(Adult) Placement Date: 08/28/25; [...] Removal Time: 92508/28/25 08 by Margo Chung DIRECTOR OF EDUCATION 08/28/25925 by Margo Chung CRNA Closed/Suction Drain [...] and heating? Not hard at all 08/29/2025 [facility] [place] of Occupat ional Health - Occupational Stress [...] things needed for daily living? 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 Plan discussed with DIRECTOR OF EDUCATION. CODE STATUS: Code Status (Patient has no [...] and Staff Patient location during procedure: OR DIRECTOR OF EDUCATION/CAA: Margo Chung CRNA Indications and Patient Condition [...] over 30 Minutes, Continuous PRN, Starting on Sun 9/25 at 0821 New Bag 08/28/2025 8:21 AM EST calcium chloride injection Intravenous, As Needed, Starting on Fri08/28/25 at 0816 Given 08/28/2025 8:25 AM EST [...] ringers infusion Intravenous, Continuous PRN, Starting on Fri08/28/25 at 0756 New Bag 08/28/2025 7:56 AM EST lidocaine PF 1% (XYLOCAINE) injection Intravenous, As Needed, Starting on Fri08/28/25 at 0804 Given 08/28/2025 8:04 AM EST 50 mg ondansetron (ZOFRAN) injection Intravenous, As Needed, Starting on 08/28/25 at 0830 Given 08/28/2025 8:30 AM EST 4 mg phenylephrine (KAYLYNN-SYNEPHRINE) 50 mg in sodium chloride 0.9 % 250 mL infusion 0.5-3 mcg/kg/min 93.4 kg (14.01-84.06 mL/hr, rounded to 14-84.1 mL/hr), Intravenous, Titrated, Starting on Fri08/28/25 at 0300, Initiate infusion at 0.5 mcg/kg/min [...] Hours, Every 8 Hours, First dose on Fri08/28/25 at 0430, For 5 days, Indications: Intra-Abdominal InfectionIndications:Intra-Abdominal Infection New Bag 08/29/2025 12:23 AM EST 3.375 g New Bag 08/28/2025 4:26 PM EST 3.375 g New Bag 08/28/2025 8:10 AM EST 3.375 g propofol (DIPRIVAN) injection Intravenous, As Needed, Starting on Fri08/28/25 at 0804 Given 08/28/2025 8:04 AM EST 50 mg rocuronium (ZEMURON) injection Intravenous, As Needed, Starting on Fri08/28/25 at 0804 Given 08/28/2025 8:18 AM EST 80 mg Given 08/28/2025 8:04 AM EST 20 mg sodium bicarbonate 150 mEq/1000 mL D5W infusion 100 mL/hr, Intravenous, Continuous, Starting on Fri08/28/25 at 0345, For 15 hours, Indications: Systemic AcidosisIndications:System ic Acidosis Currently Infusing 08/28/2025 7:56 AM EST 100 mL/hr 100 mL/hr 08/28/2025 5:42 AM EST 100 mL/hr 100 mL/hr sodium bicarbonate injection 8.4% Intravenous, As Needed, Starting on 08/28/25 at 0846 Given 08/28/2025 8:46 AM EST 50 mEq Succinylcholine Chloride (ANECTINE) injection Intravenous, As Needed, Starting on Fri08/28/25 at 0804 Given 08/28/2025 8:04 AM EST [...] mL/hr documented in this encounter Care Teams Pie Bakery Laborer Relationship Specialty Start Date End Date Provider, [place] [address] PCP - General 08/27/25 08/28/25 documented as of this encounter
--- OUTSIDE RECORDS SUMMARY | 2025-08-28 18:35 | XMS_ITS | Encounter Summary ---
[facility] Address [address] [place] [id number] Care Team Providers Care Business Systems Advisor Name Role Phone Provider, No Known Primary Care Provider Unavail able Reason for Visit * Auth/Cert Specialty Diagnoses / Procedures Referred By Contac t Referred To Contact Diagnoses Pancreatitis (pancreatitis) Referral ID Status Reason Start Date Expiration Date Visits Re quested Visits Authorized [id number] 1 1 Encounter Details Date Type Department Care Team (Late st Contact Info) Description 08/28/2025 6:35 PM EST - 08/28/2025 8:12 PM EST Surgery [facility] [address] [place] [phone] Hermes Jaramillo MD [address] [place] [address] CHOLECYSTECTOMY LAPAROSCOPIC INTRAOPERATIVE CHOLANGIOGRAM [77620 (CPT )] Social History Tobacco Use Types Packs/Day Years [...] and heating? Not hard at all 08/29/2025 [facility] [place] [facility] Occupat ional Health - Occupational Stress [...] things needed for daily living? No 08/29/2025 [facility] Utilities Answer Date Recorded In the past 12 months has [facility] electric, gas, oil, or water company threatened [...] GED or equivalent No 08/29/2025 Preferred Language Cymraes 08/29/2025 PHQ-2 Answer Date Recorded Patient Health Questionnaire-2 Score 0 08/29/2025 Sex and Gender Information Value Date Recorded Sex Assigned at Not on file Legal Sex Male 3:02 PM EST Gender Identity Not on file Sexual Orientation Not on file documented as of this encounter Last Filed Vital Signs Vital Sign Reading Time Taken Comments Blood Pressure 125/62 08/28/2025 8:00 PM EST Pulse 69 08/28/2025 8:00 PM EST Temperature 36.5 C (97.7 F) 08/28/2025 8:00 PM EST Respiratory Rate 16 08/28/2025 8:00 PM EST Oxygen Saturation 98% 08/28/2025 8:00 PM EST Inhaled Oxygen Concentration - - Weight 93.4 kg (206 lb) 08/27/2025 9:00 PM EST Height 172.7 cm (5' 7.99 ) 08/28/2025 6:45 PM ES T Body Mass Index 32.25 [...] Questionnaire -2 Score 0 08/29/2025 10:37 AM Félix Farris RN * Suicidal Ideation (Past 1 Month) [...] 08/27/2025 9:46 PM Casi Voss RN * Hardy Suicide Severity Rating Scale (Screener/Recent Self-Report) Question Answer Date of Assessment Author 6. Suicidal Behavior (Lifetime) No 9:46 PM Casi Crowley RN * Mental Health Question Answer Date of Assessment Author Little interest or pleasure in doing things Not at all 08/29/2025 10:37 AM Félix Farris RN Feeling down, depressed, or hopeless Not at all 08/29/2025 10:37 AM Félix Farris RN documented as of this encounter Discharge Summaries * Daryl Schwab RN - 09/05/2025 1:02 PM EST Images from the original note were not included. Loc Thurman (84 y.o. Male) From Daryl Schwab [facility] [id number] Date of 1940 Social Security Number [id number] [place] [address] Yazidism Latter-Day Marital Status Admission Date 08/27/2025 Admission Type Urgent Admitting Provider Selena Arias MD Attending Provider Selena Arias MD Department, Room/Bed [address], S581/1 Discharge Date Discharge Disposition Rehab [...] Plan Fax Number Effective Dates [address] 11/20/2003 - None Entered [facility] [address] Subscriber Name Subscriber Date Member ID LOC THURMAN 1940 [id number] Secondary Coverage Payor Plan Insurance Group Employer/Plan Group [employer] Payor Plan Address Payor Plan Phone Number Payor Plan Fax Number Effective Dates [address] [employer] [place] [phone] 10/20/2015 - None Entered [facility] [address] Subscriber Name Subscriber Date Member ID LOC THURMAN Annetta 1940 [id number] Emergency Contacts Legal Administrative Secretary (Rel.) Home Phone Work Phone Mobile Phone OlmanSarabjit (Son) -- -- [phone] Alexandru Thurman (Grandchild) -- -- [phone] Discharge Summary Selena Arias MD at 09/05/[address] [place] [address] Medicine Services DISCHARGE SUMMARY Patient Name: Lco Thurman : 1940 Date of Admission: 08/27/2025 [...] the biopsy showed. Procedure was done at [facility], will need to f/u outpatient. Discussed [...] Blood Culture - Blood, Blood, Arterial Line [[id number]] (Normal) Collected: 08/28/25 0638 Lab Status: Final result Specimen: Blood, Arterial Line Updated: 09/02/25 0700 Blood Culture No growth at 5 days Blood Culture - Blood, Hand, Left [[id number]] (Normal) Collected: 08/28/25 0145 Lab Status: Final [...] MD 09/02/2025 12:12 PM EST Workstation ID: [id number] XR Chest 1 View Result Date: 09/02/2025 [...] MD 09/02/2025 12:03 PM EST Workstation ID: [id number] GREY TENDER FEES - Fiberoptic Endo Eval Swallow Result [...] MD 08/29/2025 4:14 AM EST Workstation ID: [id number] FL Cholangiogram Operative Result Date: 08/28/2025 FL [...] MD 08/28/2025 3:24 PM EST Workstation ID: [id number] XR Chest 1 View Result Date: 08/28/2025 [...] MD 08/28/2025 11:08 AM EST Workstation ID: [id number] XR Abdomen KUB Result Date: 08/28/2025 XR [...] MD 08/28/2025 10:53 AM EST Workstation ID: [id number] XR Chest 1 View Result Date: 08/28/2025 [...] MD 08/28/2025 5:45 AM EST Workstation ID: [id number] CT Abdomen Pelvis Without Contrast Result Date: [...] MD 08/27/2025 10:25 PM EST Workstation ID: [id number] Results for orders placed during the hospital [...] lisinopril 40 MG tablet Commonly known as: LAURA VIVAS What changed: medication strength how much to [...] minutes on this discharge activity which included: akop-gv-teyxsgvmzpiyi with the patient, reviewing the data in the system, coordination of the care with the nursing staff as well as consultants, documentation, and entering orders. 1301 * Selena Arias MD - 09/05/2025 12:49 PM EST Images from the original note were not included. [facility] Medicine Services DISCHARGE SUMMARY Patient Name: [...] the biopsy showed. Procedure was done at [facility], will need to f/u outpatient. Discussed [...] 09/02/25 0543 09/01/25 1705 09/01/25 0401 08/31/25 033 SODIUM 146* -- 145 -- 149* 148* [...] 09/02/25 0543 09/01/25 0401 08/31/25 0338 08/30/25 040 TOTAL PROTEIN 5.5* 5.0* 5.1* 5.0* ALBUMIN [...] Blood Culture - Blood, Blood, Arterial Line [[id number]] (Normal) Collected: 08/28/25 0638 Lab Status: Final result Specimen: Blood, Arterial Line Updated: 09/02/25 0700 Blood Culture No growth at 5 days Blood Culture - Blood, Hand, Left [[id number]] (Normal) Collected: 08/28/25 0145 Lab Status: Final [...] MD 09/02/2025 12:12 PM EST Workstation ID: [id number] XR Chest 1 View Result Date: 09/02/2025 [...] MD 09/02/2025 12:03 PM EST Workstation ID: [id number] GREY TENDER FEES - Fiberoptic Endo Eval Swallow Result [...] MD 08/29/2025 4:14 AM EST Workstation ID: [id number] FL Cholangiogram Operative Result Date: 08/28/2025 FL [...] MD 08/28/2025 3:24 PM EST Workstation ID: [id number] XR Chest 1 View Result Date: 08/28/2025 [...] MD 08/28/2025 11:08 AM EST Workstation ID: [id number] XR Abdomen KUB Result Date: 08/28/2025 XR [...] MD 08/28/2025 10:53 AM EST Workstation ID: [id number] XR Chest 1 View Result Date: 08/28/2025 [...] MD 08/28/2025 5:45 AM EST Workstation ID: [id number] CT Abdomen Pelvis Without Contrast Result Date: [...] MD 08/27/2025 10:25 PM EST Workstation ID: [id number] Results for orders placed during the hospital [...] minutes on this discharge activity which included: tfhr-sz-egozfcrhmqoej with the patient, reviewing the data in the system, coordination of the care with the nursing staff as well as consultants, documentation, and entering orders. * Daryl Schwab RN - 09/02/2025 1:08 PM EST Images from the original note were not included. Loc Thurman (84 y.o. Male) From Daryl Schwab RN [id number] Date of 1940 Social Security Number [id number] [place] [address] Yazidism Latter-Day Marital Status Admission Date 08/27/2025 Admission Type Urgent Admitting Provider Flora Baig MD Attending Provider Flora Baig MD Department, Room/Bed [address], S581/1 Discharge Date Discharge Disposition Discharge [...] Plan Fax Number Effective Dates [address] 11/20/2003 - None Entered [facility] [address] Subscriber Name Subscriber Date Member ID LOC THURMAN 1940 [id number] Secondary Coverage Payor Plan Insurance Group Employer/Plan Group [employer] Payor Plan Address Payor Plan Phone Number Payor Plan Fax Number Effective Dates [address] [employer] [address]ES[address]UEL [phone] 10/20/2015 - None Entered [facility] [address] Subscriber Name Subscriber Date Member ID LOC THURMAN 1940 [id number] Emergency Contacts Legal Administrative Secretary (Rel.) Home Phone Work Phone Mobile Phone OlmanSarabjit (Son) -- -- [phone] Alexandru Thurman (Grandchild) -- -- [phone] Consult Notes (most recent note) Hermes Jaramillo MD at 08/27/251 Consult Orders 1. Inpatient General Surgery Consult [[id number]] ordered by Nesha Lopes APRN at 08/27/252003 Patient Name: Loc Thurman Date of : 1940 [id number] Patient Care Team: Provider, No Known as [...] left lung mass. He underwent bronchoscopy at [facility] yesterday. He states postoperatively he did [...] for cancers Social History: Pt lives in [facility]. Tobacco use: Denies , quit 35 [...] Jaramillo MD 08/27/25 21:11 EST Dictated using Understory Dictation CT scan personally reviewed. This shows [...] INTRAOPERATIVE CHOLANGIOGRAM; Surgeon: Hermes Jaramillo MD; Location: [facility]; Service: General; Laterality: N/A; COLONOSCOPY HERNIA REPAIR [...] Row Name 09/02/25 1143 Sit-Stand Transfer Sit-Stand Herreid (Transfers) minimum assist (75% patient effort);1 person assist;verbal cues -LM Assistive Device (Sit-Stand Transfers) walker, front-wheeled -LM Comment, (Sit-Stand Transfer) Vc's for hand placement. Increased time/effort needed. -LM Row Name 09/02/25 1143 Gait/Stairs (Locomotion) Herreid Level (Gait) minimum assist (75% patient effort);1 [...] By Initials Name Provider Type Rhianna Montano, PT Physical Therapist Outcome Measures Row Name [...] Therapist Physical Therapy Education Title: PT OT GREY TENDER Therapies (In Progress) Topic: Physical Therapy (In [...] PT Physical Therapist PT SULAIMAN 06/03/25 - Salas, Tee N, PT Student PT Student PT PT Recommendation [...] Re-Cert Due Date 09/09/25 -LM Timed Charges 27870 - PT Therapeutic Exercise Minutes 16 -LM 65724 - Gait Training Minutes 10 -LM Total Minutes Timed Charges Total Minutes 26 -LM Total Minutes 26 -LM User Jung (r) = Recorded By, (t) = Taken By, (c) = Cosigned By Initials Name Provider Type LM Rhianna Tilley, PT Physical Therapist Therapy Charges for Today Code Description Service Date Service Provider Modifiers Qty 45825141323 HC GAIT TRAINING EA 15 MIN 09/02/2025 Rhianna Tilley, PT GP 1 82394723097 HC PT THER PROC EA 15 MIN 09/02/2025 Rhianna Tilley, PT GP 1 PT G-Codes Outcome Measure Options: AM-PAC 6 Clicks Basic Mobility (PT) AM-PAC 6 Clicks Score (PT): 15 AM-PAC 6 Clicks Score (OT): 13 PT Discharge Summary Anticipated Discharge Disposition (PT): inpatient rehabilitation facility Rhianna Tilley PT 09/02/2025 1151 Occupational Therapy Notes (most recent note) Patsy Abernathy, OT at 09/02/25 0702 Patient Name: Loc Thurman : 1940 Today's [...] INTRAOPERATIVE CHOLANGIOGRAM; Surgeon: Hermes Jaramillo MD; Location: [facility]; Service: General; Laterality: N/A; COLONOSCOPY HERNIA REPAIR [...] Type AC Patsy Abernathy OT Occupational Therapist Mobility/ADL's Row Name 09/02/25 0843 Bed Mobility Bed Mobility supine-sit - Supine-Sit Herreid (Bed Mobility) moderate assist (50% patient effort);verbal [...] - Row Name 09/02/25 Bed-Chair Transfer Bed-Chair Herreid (Transfers) verbal cues;minimum assist (75% patient effort) - Assistive Device (Bed-Chair Transfers) walker, front-wheeled -AC Comment, (Bed-Chair Transfer) increased time and effort, tremulous - Row Name 09/02/25842 Sit-Stand Transfer Sit-Stand Herreid (Transfers) minimum assist (75% patient effort);verbal cues - Assistive Device (Sit-Stand Transfers) walker, front-wheeled -AC Comment, (Sit-Stand Transfer) VCs for hand placement and to place both feet in walker - Row Name 09/02/25842 Toilet Transfer Herreid Level (Toilet Transfer) minimum assist (75% patient [...] Row Name 09/02/25842 Lower Body Dressing Assessment/Training Herreid Level (Lower Body Dressing) don;socks;dependent (less than 25% patient effort) - Position (Lower Body Dressing) supine - Row Name 09/02/25842 Grooming Assessment/Training Herreid Level (Grooming) hair care, combing/brushing;oral care regimen;wash face, hands;standby assist - Position (Grooming) edge of bed sitting - Comment, (Grooming) bed pushed up to sink for grooming per pt request - Row Name 09/02/25842 Toileting Assessment/Training Herreid Level (Toileting) adjust/manage clothing;perform perineal hygiene;maximum assist (25% patient effort) - Assistive Devices (Toileting) commode, bedside without drop arms -AC Position (Toileting) supported standing -AC User Jung (r) = Recorded By, (t) = Taken By, (c) = Cosigned By Initials Name Provider Type Patsy Molina OT Occupational Therapist Obj/Interventions Row Name 09/02/25 [...] Therapist Occupational Therapy Education Title: PT OT GREY TENDER Therapies (In Progress) Topic: Occupational Therapy (In [...] Jung Initials Effective Dates Name Provider Type [facility] 11/22/22 - Patsy Abernathy, OT Occupational Therapist [...] Re-Cert Due Date 09/09/25 -AC Timed Charges 42385 - OT Therapeutic Activity Minutes 15 -AC 36600 - OT Self Care/Mgmt Minutes 40 -AC Total Minutes Timed Charges Total Minutes 55 -AC Total Minutes 55 -AC User Jung (r) = Recorded By, (t) = Taken By, (c) = Cosigned By Initials Name Provider Type AC Patsy Abernathy, OT Occupational Therapist Therapy Charges for Today Code Description Service Date Service Provider Modifiers Qty 85069769382 HC OT THERAPEUTIC ACT EA 15 MIN 09/02/2025 Patsy Abernathy OT GO 1 56466986742 HC OT SELF CARE/MGMT/TRAIN EA 15 MIN 09/02/2025 Patsy Abernathy OT GO 3 Patsy Abernathy OT 09/02/2025 0858 Speech Language Pathology Notes (most recent note) Andrea Dukes MS CCC-GREY TENDER at 09/02/25 1304 Acute Care - Speech Language Pathology Swallow Re-Assessment Basil Modified Barium Swallow Study (MBS) Patient Name: [...] INTRAOPERATIVE CHOLANGIOGRAM; Surgeon: Hermes Jaramillo MD; Location: [facility]; Service: General; Laterality: N/A; COLONOSCOPY HERNIA REPAIR GREY TENDER Recommendation and Plan Recommended discharge disposition is based on the functional assessment performed by PT/OT/Speech therapy (as applicable) and may not reflect the medical necessity determined by your provider or services covered by an individual patient's insurance plan or patient resource. GREY TENDER Swallowing Diagnosis: mild, oral dysphagia, mod-severe, pharyngeal dysphagia (09/02/251099) GREY TENDER Diet Recommendation: mechanical ground textures, no mixed consistencies, honey thick liquids (09/02/251099) Recommended Precautions and Strategies: no straw, small bites of food and sips of liquid, upright posture during/after eating, general aspiration precautions (09/02/251099) GREY TENDER Rec. for Method of Medication Administration: meds whole, with thick liquids, with puree (09/02/251099) Monitor for Signs of Aspiration: yes, notify GREY TENDER if any concerns (09/02/251099) Swallow Criteria for Skilled Therapeutic Interventions Met: demonstrates skilled criteria () Anticipated Discharge Disposition (GREY TENDER): inpatient rehabilitation facility (09/02/251099) Rehab Potential/Prognosis, Swallowing: good, to achieve stated therapy goals (09/02/251099) Therapy Frequency (Swallow): 5 days per week (09/02/251099) Predicted Duration Therapy Intervention (Days): 2 weeks (09/02/251099) Oral Care Recommendations: Oral Care BID/PRN, Suction toothbrush (09/02/251099) Progress: declining SWALLOW EVALUATION (Last 72 Hours) GREY TENDER Adult Swallow Evaluation Row Name 09/02/25 1100 09/01/25 2720 08/31/25 4915 Rehab Evaluation Document Type re-evaluation -RS therapy [...] Pertinent History Of Current Problem See previous GREY TENDER notes -RS See previous GREY TENDER notes -SM See previous GREY TENDER notes. Pt has been cleared for PO [...] -- 3L -RS Eating/Swallowing Skills fed by GREY TENDER;needed assist;self-fed -RS self-fed;fed by GREY TENDER;needed assist - fed by staff/caregiver -RS Positioning During Eating upright 90 degree;upright in chair -RS upright 90 degree;upright in chair- upright 90 degree;upright in bed -RS Utensils [...] Signs of aspiration;Silent aspiration;Risks of aspiration -RS GREY TENDER Evaluation Clinical Impression GREY TENDER Swallowing Diagnosis mild;oral dysphagia;mod-severe;pharyngeal dysphagia -RS -- moderate;oral dysphagia;pharyngeal dysphagia -RS Functional Impact risk of aspiration/pneumonia -RS -- risk of aspiration/pneumonia -RS Rehab Potential/Prognosis, Swallowing good, to achieve stated therapy goals -RS -- good, to achievestated therapy goals -RS Swallow Criteria for Skilled Therapeutic Interventions Met demonstrates skilled criteria -RS -- demonstrates skilled criteria -RS GREY TENDER Treatment Clinical Impressions Treatment Assessment (GREY TENDER) -- toleration of diet;clinical signs of;aspiration - SM -- Treatment Assessment Comments (GREY TENDER) -- Pt requesting thin liquids. Explained justification of thickened liquids -SM -- Daily Summary of Progress (GREY TENDER) -- progress toward functional goals is good -SM -- Plan for Continued Treatment (GREY TENDER) -- continue treatment per plan of care -SM -- Care Plan Review -- evaluation/treatment results reviewed;patient/other agree to care plan -SM -- Recommendations Therapy Frequency (Swallow) 5 days per week -RS 5 days per week -SM 5 days per week -RS Predicted Duration Therapy Intervention (Days) 2 weeks -RS 2 weeks -SM 2 weeks -RS GREY TENDER Diet Recommendation mechanical ground textures;no mixed consistencies;honey [...] toothbrush -SM Oral Care BID/PRN;Suction toothbrush -RS GREY TENDER Rec. for Method of Medication Administration meds whole;with thick liquids;with puree -RS meds whole;with thick liquids -SM meds whole;with thick liquids;meds via alternate route -RS Monitor for Signs of Aspiration yes;notify GREY TENDER if any concerns -RS yes;notify GREY TENDER if any concerns -SM yes;notify GREY TENDER if any concerns -RS Anticipated Discharge Disposition (GREY TENDER) inpatient rehabilitation facility -RS inpatient rehabilitation facility -SM inpatient rehabilitation facility -RS User Jung (r) = Recorded By, (t) = Taken By, (c) = Cosigned By Initials Name Effective Dates RS Andrea Dukes, [facility]-GREY TENDER 07/03/23 - Nora Weiner MS CF-GREY TENDER 03/24/25 - EDUCATION The patient has been educated in the following areas: Dysphagia (Swallowing Impairment) Modified Diet Instruction. GREY TENDER GOALS Row Name 09/02/25 1100 09/01/25 1530 08/31/25 0815 (LTG) Patient will demonstrate functional swallow for Diet Texture (Demonstrate functional swallow) regular textures -RS regular textures -SM regular textures -RS Liquid viscosity (Demonstrate functional swallow) thin liquids -RS thin liquids -SM thin liquids -RS Herreid (Demonstrate functional swallow) independently (over 90% accuracy) [...] signs of distress;with adequate oral prep/transit/clearance -RS Herreid (Tolerate trials) with minimal cues (75-90% accuracy) -RS with minimal cues (75-90% accuracy) -SM with minimal cues (75-90% accuracy) -RS Time Frame (Tolerate trials) 1 week -RS 1 week -SM 1 week -RS Progress/Outcomes (Tolerate trials) goal revised this date -RS goal revised this date -SM new goal -RS Comment (Tolerate trials) -- Upgraded to [facility] solids -SM -- (STG) Patient will tolerate [...] signs of distress;with adequate oral prep/transit/clearance -RS Herreid (Tolerate therapeutic trials) with minimal cues (75-90% [...] w/ solid, but OK to upgrade to [facility] biloxid and monitor tolerance -SM -- (STG) Lingual Strengthening Goal 1 (GREY TENDER) Activity (Lingual Strengthening Goal 1, GREY TENDER) increase tongue back strength -RS increase tongue backstrength -SM increase tongue back strength -RS Increase Tongue Back Strength lingual resistance exercises -RS lingual resistance exercises -SM lingual resistance exercises -RS Herreid/Accuracy (Lingual Strengthening Goal 1, GREY TENDER) with minimal cues (75- 90% accuracy) -RS with minimal cues (75-90% accuracy) -SM with minimal cues (75- 90% accuracy) -RS Time Frame (Lingual Strengthening Goal 1, GREY TENDER) 1 week -RS 1 week -SM 1 week -RS Progress/Outcomes (Lingual Strengthening Goal 1, GREY TENDER) goal ongoing -RS continuing progress toward goal -SM new goal -RS (STG) Pharyngeal Strengthening Exercise Goal 1 (GREY TENDER) Activity (Pharyngeal Strengthening Goal 1, GREY TENDER) increase timing;increase superior movement of the hyolaryngeal [...] Retraction mike -RS mike -SM mike -RS Herreid/Accuracy (Pharyngeal Strengthening Goal 1, GREY TENDER) with minimal cues (75-90% accuracy) -RS with minimal cues (75-90% accuracy) -SM with minimal cues (75-90% accuracy) -RS Time Frame (Pharyngeal Strengthening Goal 1, GREY TENDER) 1 week -RS 1 week -SM 1 week -RS Progress/Outcomes (Pharyngeal Strengthening Goal 1, GREY TENDER) goal ongoing -RS continuing progress toward goal -SM new goal -RS Comment (Pharyngeal Strengthening Goal 1, GREY TENDER) -- Demo'd all and left at bedside - -- User Jung (r) = Recorded By, (t) = Taken By, (c) = Cosigned By Initials Name Provider Type RS Andrae Dukes MS CCC-GREY TENDER Speech and Language Pathologist Nora Weiner, CF-GREY TENDER Speech and Language Pathologist Time Calculation: Time Calculation- GREY TENDER Row Name 09/02/25 1302 Time Calculation- GREY TENDER GREY TENDER Start Time 1100 -RS GREY TENDER Received On 09/02/25 -RS Untimed Charges 94164-XI Motion Fluoro Eval Swallow Minutes 61 -RS Total Minutes Untimed Charges Total Minutes 61 -RS Total Minutes 61 -RS User Jung (r) = Recorded By, (t) = Taken By, (c) = Cosigned By Initials Name Provider Type RS Andrea Dukes MS CCC-GREY TENDER Speech and Language Pathologist Therapy Charges for Today Code Description Service Date Service Provider Modifiers Qty 08518498440 HC ST MOTION FLUORO EVAL SWALLOW 4 09/02/2025 Andrea Dukes MS CCC- GREY TENDER GN 1 Andrea Dukes MS CCC-ISAIAH 09/02/2025 1305 * Daryl Schwab RN - 09/01/2025 12:36 PM EST Images from the original note were not included. Loc Thurman (84 y.o. Male) From Daryl Schwab RN [id number] Date of 1940 Social Security Number [id number] [place] [address] Yazidism Latter-Day Marital Status Admission Date 08/27/2025 Admission Type Urgent Admitting Provider Flora Baig MD Attending Provider Flora Baig MD Department, Room/Bed [address], S581/1 Discharge Date Discharge Disposition Discharge [...] Plan Fax Number Effective Dates [address] 11/20/2003 - None Entered [facility] [address] Subscriber Name Subscriber Date Member ID LOC THURMAN 1940 [id number] Secondary Coverage Payor Plan Insurance Group Employer/Plan Group [employer] Payor Plan Address Payor Plan Phone Number Payor Plan Fax Number Effective Dates [address] [employer] [phone] 10/20/2015 - None Entered [facility] [address] Subscriber Name Subscriber Date Member ID LOC THURMAN 1940 [id number] Emergency Contacts Legal Administrative Secretary (Rel.) Home Phone Work Phone Mobile Phone ThurmanSarabijt (Son) -- -- [phone] Alexandru Thurman (Grandchild) -- -- [phone] History & Physical Linda Rubin MD at 08/27/25 2340 TRANSITION LEAD PROGRESS NOTE SUBJECTIVE Loc 84 y.o. male is followed for:No chief complaint on file. 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 Patient underwent bronchoscopy yesterday for lung nodules/mass. Did have scant hemoptysis mixed in with saliva yesterday evening postprocedure. Has not had any olga hemoptysis orno further episodes. Today he woke up with upper abdominal pain after eating breakfast as well as nausea and vomiting. Went to [facility] and during transport her head syncopal [...] social history were reviewed and updated in [employer] as appropriate. Review of Systems As described [...] (08/27/252058) Best Verbal Response: 5-->(V5) oriented (08/27/252058) [place] Coma Scale Score: 15 (08/27/252058) Lines, Drains [...] MD 08/27/2025 10:25 PM EST Workstation ID: [id number] Echo: Results: Reviewed. I reviewed the patient's [...] 0059 Librado Bangura MD at 08/27/25 1910 [facility] Medicine Services HISTORY AND PHYSICAL Patient [...] (2014), and tobacco use who presents to [facility] via transfer from [facility] for evaluation of pancreatitis and distended gallbladder. History of Present Illness Reason for Admit: Abdominal pain with nausea vomiting The patient presents to [facility] via transfer from [facility] for evaluation of abdominal pain with nausea and vomiting. He reports experiencing abdominal pain and chest discomfort, which began this morning after consuming a bowl of cereal for breakfast. The pain, described as a constant ache across his lower chest andupper abdomen, initially peaked at a severity of 10/10. [facility], morphine was administered, but it was [...] and sees Dr. Brooks for cardiology in [place]. Review of Systems Constitutional: Positive for activity [...] (2014), and tobacco use who presents to [facility] via transfer from [facility] for evaluation of pancreatitis and distended gallbladder. Patient/family describe syncopal episode in ambulance in route from [facility] this afternoon subjective SBP in the [...] and lactate 4 - Received Zosyn at [facility], continue - Repeat labs - Pain [...] 08/27/25, 9:11 PM EST Patient or patient circulation sales representative verbalized consent for the use of Ambient Listening during the visit for chart documentation. Attending Admission Attestation I have performed an independent urzl-dk-pncr diagnostic evaluation including performing an independent physical examination. I approve of the documented plan of care above that was reviewed and developed with the advanced practice physician (APC) and take responsibility for that plan along with itsassociated risks. I have updated the HPI as appropriate. Brief HPI Loc Thurman is a 84 y.o. male with significant medical history for COPD, HTN, HLD, high-grade prostate cancer s/p initiation of external beam radiation and hormonal therapy (2014), and tobacco use who presents to [facility] via transfer from [facility] for evaluation of pancreatitis and distended [...] Bangura MD 08/27/25 Contains text generated by Tindie [id number] Operative/Procedure Notes (most recent note) Hermes Jaramillo MD at 08/28/25 0820 Operative Report Patient Name: Loc Thurman Date of : 1940 [id number] 08/28/2025 PREOPERATIVE DIAGNOSIS: Acute cholecystitis with sepsis POSTOPERATIVE DIAGNOSIS: Same PROCEDURE PERFORMED: Laparoscopic cholecystectomy with intraoperative cholangiography SURGEON: Hermes aJramillo MD MEDICAL ASSISTANT SECRETARY: Annie Jorgensen PA-C. Annie Jorgensen PA-C was [...] the umbilicus, which was grasped with a Amrielena clamp and elevated anteriorly. A vertical midline incision was made in the fascia, and blunt dissection was carried down into the peritoneal cavity. A stay suture of 0 Vicryl was then placed in lmlrrw-wq-eluig fashion around the defect, and a blunt [...] note) Flora Baig MD at 09/01/25 1036 [facility] Medicine Services PROGRESS NOTE Patient Name: [...] this interval not displayed. Lab 09/01/2540008/31/25 0338 08/30/25 0403 08/29/25 0607 08/28/25 0955 [...] not displayed. Lab 09/01/25 0401 08/31/25 0338 08/30/2540208/28/25 0955 08/28/2561208/27/251942 TOTAL PROTEIN 5.0* 5.1* 5.0* [...] -- 110* 137* -- 80* 576* Lab 08/28/2561208/27/25223308/27/251942 HSTROP T -- 34* 39* PROTIME 18.2* [...] Lab Results None Microbiology Results Abnormal None GREY TENDER FEES - Fiberoptic Endo Eval Swallow Result [...] Consult Orders 1. Inpatient General Surgery Consult [[id number]] ordered by Nesha Lopes APRN at 08/27/252003 Patient Name: Loc Thurman Date of : 1940 [id number] Patient Care Team: Provider, No Known as [...] left lung mass. He underwent bronchoscopy at [facility] yesterday. He states postoperatively he did [...] for cancers Social History: Pt lives in [facility]. Tobacco use: Denies , quit 35 [...] Jaramillo MD 08/27/25 21:11 EST Dictated using Understory Dictation CT scan personally reviewed. This shows [...] INTRAOPERATIVE CHOLANGIOGRAM; Surgeon: Hermes Jaramillo MD; Location: [facility]; Service: General; Laterality: N/A; COLONOSCOPY HERNIA REPAIR [...] Mobility Bed Mobility supine-sit (P) -SULAIMAN Supine-Sit Herreid (Bed Mobility) moderate assist (50% patient effort);2 person assist;verbal cues (P) -SULAIMAN Assistive Device (Bed Mobility) bed rails;head of bed elevated;repositioning sheet (P) -SULAIMAN Comment, (Bed Mobility) VCs for sequencing, assist at trunk and BLEs, increased time and effort, R lateral lean sitting EOB (P) -SULAIMAN Row Name 08/31/25 1027 Bed-Chair Transfer Bed-Chair Herreid (Transfers) moderate assist (50% patient effort);2 person assist;verbal cues(P) -SULAIMAN Assistive Device (Bed-Chair Transfers) other (see comments) (P) BUE support -SULAIMAN Comment, (Bed-Chair Transfer) VCs for sequencing (P) -SULAIMAN Row Name 08/31/25 1027 Sit-Stand Transfer Sit-Stand Herreid (Transfers) minimum assist (75% patient effort);2 person assist;verbal cues (P) -SULAIMAN Assistive Device (Sit-Stand Transfers) other (see comments) (P) B UE support -SULAIMAN Comment, (Sit-Stand Transfer) VCs for upright posture (P) -SULAIMAN Row Name 08/31/25 1027 Gait/Stairs (Locomotion) Herreid Level (Gait) moderate assist (50% patient effort);2 person assist;verbal cues (P) -SULAIMAN Assistive Device (Gait) other (see comments) (P) B POLARITY TESTER -SULAIMAN Distance in Feet (Gait) 16 (P) [...] IPPT. Pt amb 16 ft w/ B POLARITY TESTER modAx2, further mobility limited by weakness and [...] Student Physical Therapy Education Title: PT OT GREY TENDER Therapies (In Progress) Topic: Physical Therapy (In Progress) Point: Mobility training (Done) Learning Progress Summary Patient Acceptance, E, VU,NR by SULAIMAN at 08/31/2025 1036 Acceptance, E, NR by DION at 08/30/2025 0903 Point: Home exercise program (Not Started) Learner Progress: Not documented in this visit. Point: Body mechanics (Done) Learning Progress Summary Patient Acceptance, E, VU,NR by SULAIMAN at 08/31/2025 1036 Acceptance, E, NR by KG at 08/30/2025 09 Point: Precautions (Done) Learning Progress Summary Patient Acceptance, E, VU,NR by SULAIMAN at 08/31/2025 1036 Acceptance, E, NR by KG at 08/30/2025902 [...] ready. Time Calculation: PT Charges Row Name 08/31/251035 Time Calculation Start Time 0948 (P) -SULAIMAN PT Received On 08/31/25 (P) -SULAIMAN Timed Charges 41107 - PT Therapeutic Activity Minutes 24 (P) -SULAIMAN Total Minutes Timed Charges Total Minutes 24 (P) -SULAIMAN Total Minutes 24 (P) -SULAIMAN User Jung (r) = Recorded By, (t) = Taken By, (c) = Cosigned By Initials Name Provider Type SULAIMAN Tee Marina, PT Student PT Student Therapy Charges for Today Code Description Service Date Service Provider Modifiers Qty [id number] HC PT THERAPEUTIC ACT EA 15 MIN 08/31/2025 eTe Marina, PT Student GP 2 PT G-Codes [...] INTRAOPERATIVE CHOLANGIOGRAM; Surgeon: Hermes Jaramillo MD; Location: [facility]; Service: General; Laterality: N/A; COLONOSCOPY HERNIA REPAIR General Information Row Name 08/31/25 1335 OT Time and Intention Document Type therapy note (daily note) -AN Mode of Treatment occupational therapy -AN Row Name 08/31/25 8795 General Information Patient Profile Reviewed yes -AN Existing Precautions/Restrictions fall;oxygen therapy device and L/min;other (see comments) abdominal incision; confusion; NG -AN Barriers to Rehab medically complex;previous functional deficit;cognitive status -AN Row Name 08/31/25 0972 Cognition Orientation Status (Cognition) oriented x 3 -AN Row Name 08/31/25 0847 Safety Issues/Impairments Affecting Functional Mobility Safety Issues [...] 08/31/25 1339 Bed Mobility Comment, (Bed Mobility) UI upon arrival -AN User Jung (r) = [...] Student Occupational Therapy Education Title: PT OT GREY TENDER Therapies (In Progress) Topic: Occupational Therapy (Done) [...] OT Received On 08/31/25 -AN Timed Charges 98650 - OT Therapeutic Exercise Minutes 12 -AN Total Minutes Timed Charges Total Minutes 12 -AN Total Minutes 12 -AN User Jung (r) = Recorded By, (t) = Taken By, (c) = Cosigned By Initials Name Provider Type AN Radha Smith OT Occupational Therapist Therapy Charges for Today Code Description Service Date Service Provider Modifiers Qty [id number] OT THER PROC EA 15 MIN 08/31/2025 Radha Smith OT GO 1 Radha Smith OT 08/31/2025 1349 Speech Language Pathology Notes (most recent note) Andrea Dukes MS [facility]GRE[facility] TENDER at 08/31/25 0907 Acute Care - Speech Language Pathology Swallow Re-Evaluation [facility] Fiberoptic Endoscopic Evaluation of Swallowing (FEES) [...] INTRAOPERATIVE CHOLANGIOGRAM; Surgeon: Hermes Jaramillo MD; Location: [facility]; Service: General; Laterality: N/A; COLONOSCOPY HERNIA REPAIR GREY TENDER Recommendation and Plan Recommended discharge disposition is based on the functional assessment performed by PT/OT/Speech therapy (as applicable) and may not reflect the medical necessity determined by your provider or services covered by an individual patient's insurance plan or patient resource. GREY TENDER Swallowing Diagnosis: moderate, oral dysphagia, pharyngeal dysphagia (11/12/25 0815) GREY TENDER Diet Recommendation: puree, nectar thick liquids, other (see comments) (PO diet at discretion of surgeon only) (08/31/25814) Recommended Precautions and Strategies: upright posture during/after eating, general aspiration precautions (08/31/25814) GREY TENDER Rec. for Method of Medication Administration: meds whole, with thick liquids, meds via alternate route (08/31/25814) Monitor for Signs of Aspiration: yes, notify GREY TENDER if any concerns (08/31/25814) Swallow Criteria for Skilled Therapeutic Interventions Met: demonstrates skilled criteria () Anticipated Discharge Disposition (GREY TENDER): inpatient rehabilitation facility (08/31/25814) Rehab Potential/Prognosis, Swallowing: good, to achieve stated therapy goals (08/31/25814) Therapy Frequency (Swallow): 5 days per week (08/31/25814) Predicted Duration Therapy Intervention (Days): 2 weeks (08/31/25814) Oral Care Recommendations: Oral Care BID/PRN, Suction toothbrush (08/31/25814) Progress: improving SWALLOW EVALUATION (Last 72 Hours) GREY TENDER Adult Swallow Evaluation Row Name 08/31/2581408/30/25 1005 [...] Pertinent History Of Current Problem See previous GREY TENDER notes. Pt has been cleared for PO [...] Skills fed by staff/caregiver -RS self-fed;fed by GREY TENDER -AC (r) IG (t) AC (c) Positioning [...] of aspiration;Silent aspiration;Risks of aspiration -RS -- GREY TENDER Evaluation Clinical Impression GREY TENDER Swallowing Diagnosis moderate;oral dysphagia;pharyngeal dysphagia -RS suspected [...] weeks -AC (r) IG (t) AC (c) GREY TENDER Diet Recommendation puree;nectar thick liquids;other (see comments) [...] toothbrush -AC (r) IG (t) AC (c) GREY TENDER Rec. for Method of Medication Administration meds whole;with thick liquids;meds via alternate route -RS meds via alternate route -AC (r) IG (t) AC (c) Monitor for Signs of Aspiration yes;notify GREY TENDER if any concerns -RS yes;notify GREY TENDER if any concerns -AC (r) IG (t) AC (c) Anticipated Discharge Disposition (GREY TENDER) inpatient rehabilitation facility -RS inpatient rehabilitation facility -AC (r) IG (t) AC (c) User Jung (r) = Recorded By, (t) = Taken By, (c) = Cosigned By Initials Name Effective Dates Lea May MS [facility]GRE[facility] TEND[facility] 11/22/22 - Andrea Mitchell MS [facility]GRE[facility] TEND[facility] 07/03/23 - Alma Arshad, Speech Therapy Student 06/08/25 - EDUCATION The patient has been educated in the following areas: Dysphagia (Swallowing Impairment) Modified Diet Instruction. GREY TENDER GOALS Row Name 08/31/25 0815 (LTG) Patient will demonstrate functional swallow for Diet Texture (Demonstrate functional swallow) regular textures -RS Liquid viscosity (Demonstrate functional swallow) thin liquids -RS Herreid (Demonstrate functional swallow) independently (over 90% accuracy) -RS Time Frame (Demonstrate functional swallow) 2 weeks -RS Progress/Outcomes (Demonstrate functional swallow) new goal -RS (STG) Patient will tolerate trials of Consistencies Trialed (Tolerate trials) pureed textures;nectar/ mildly thick liquids -RS Desired Outcome (Tolerate trials) without signs/symptoms of aspiration;without signs of distress;with adequate oral prep/transit/clearance -RS Herreid (Tolerate trials) with minimal cues (75-90% accuracy) -RS Time Frame (Tolerate trials) 1 week -RS Progress/Outcomes (Tolerate trials) new goal -RS (STG) Patient will tolerate therapeutic trials of Consistencies Trialed (Tolerate therapeutic trials) soft to chew (chopped) textures;nectar/ mildly thick liquids -RS Desired Outcome (Tolerate therapeutic trials) without signs/symptoms of aspiration;without signs ofdistress;with adequate oral prep/transit/clearance -RS Herreid (Tolerate therapeutic trials) with minimal cues (75-90% accuracy) -RS Time Frame (Tolerate therapeutic trials) 1 week -RS Progress/Outcomes (Tolerate therapeutic trials) new goal -RS (STG) Lingual Strengthening Goal 1 (GREY TENDER) Activity (Lingual Strengthening Goal 1, GREY TENDER) increase tongue back strength -RS Increase Tongue Back Strength lingual resistance exercises -RS Herreid/Accuracy (Lingual Strengthening Goal 1, GREY TENDER) with minimal cues (75- 90% accuracy) -RS Time Frame (Lingual Strengthening Goal 1, GREY TENDER) 1 week -RS Progress/Outcomes (Lingual Strengthening Goal 1, GREY TENDER) new goal -RS (STG) Pharyngeal Strengthening Exercise Goal 1 (GREY TENDER) Activity (Pharyngeal Strengthening Goal 1, GREY TENDER) increase timing;increase superior movement of the hyolaryngeal [...] -RS Increase Tongue Base Retraction mike -RS Herreid/Accuracy (Pharyngeal Strengthening Goal 1, GREY TENDER) with minimal cues (75-90% accuracy) -RS Time Frame (Pharyngeal Strengthening Goal 1, GREY TENDER) 1 week -RS Progress/Outcomes (Pharyngeal Strengthening Goal 1, GREY TENDER) new goal -RS User Jung (r) = Recorded By, (t) = Taken By, (c) = Cosigned By Initials Name Provider Type RS Andrea Dukes MS CCC-GREY TENDER Speech and Language Pathologist Time Calculation: Time Calculation- GREY TENDER Row Name 08/31/25 0953 Time Calculation- GREY TENDER GREY TENDER Start Time 0815 -RS GREY TENDER Received On 08/31/25 -RS Untimed Charges 60193-SX Fiberoptic Endo Eval Swallow Minutes 105 -RS Total Minutes Untimed Charges Total Minutes 105 -RS Total Minutes 105 -RS User Jung (r) = Recorded By, (t) = Taken By, (c) = Cosigned By Initials Name Provider Type RS Andrea Dukes MS CCC-GREY TENDER Speech and Language Pathologist Therapy Charges for Today Code Description Service Date Service Provider Modifiers Qty [id number] ST FIBEROPTIC ENDO EVAL SWALL 7 08/31/2025 Andrea Dukes MS CCC- GREY TENDER GN 1 MS MARIA INES Chatterjee 08/31/2025 0954 * Félix Azul RN - 08/31/2025 8:27 AM EST Images from the original note were not included. Loc Thurman (84 y.o. Male) Cayetano Azul, business division chair [phone] Date of 1940 Social Security Number [id number] [place] [address] Yaz[employer]ism L[employer]-Day Marital Status Admission Date 08/27/2025 Admission Type Urgent Admitting Provider Linda Rubin MD Attending Provider Cristian Mckee, DO Department, Room/Bed [address], S254/1 Discharge Date Discharge Disposition Discharge [...] Plan Fax Number Effective Dates [address] 11/20/2003 - None Entered [facility] [address] Subscriber Name Subscriber Date Member ID LOC THURMAN 1940 [id number] Secondary Coverage Payor Plan Insurance Group Employer/Plan Group [employer] Payor Plan Address Payor Plan Phone Number Payor Plan Fax Number Effective Dates [address] [employer] [address] [phone] 10/20/2015 - None Entered [facility] [address] Subscriber Name Subscriber Date Member ID LOC THURMAN 1940 [id number] Emergency Contacts Legal Administrative Secretary (Rel.) Home Phone Work Phone Mobile Phone OlmanSarabjit (Son) -- -- [phone] Alexandru Thurman (Grandchild) -- -- [phone] History & Physical Linda Rubin MD at 08/27/25 2340 TRANSITION LEAD PROGRESS NOTE SUBJECTIVE Loc 84 y.o. male is followed for:No chief complaint on file. Pancreatitis Vasovagal syncope HTN (hypertension) Mixed hyperlipidemia COPD (chronic obstructive pulmonary disease) Former tobacco use History of prostate cancer BPH with obstruction/lower urinary tract symptoms As an Tunnel Heading Inspector, we provide an integrated approach to the [...] cancer status post XRT and hormonal therapy 2015, hyperlipidemia, new left lung mass who [facility] on 08/27/2025 because of evaluation of possible pancreatitis and cholecystitis. Patient underwent bronchoscopy yesterday for lung nodules/mass. Did have scant hemoptysis mixed in with saliva yesterday evening postprocedure. Has not had any olga hemoptysis orno further episodes. Today he woke up with upper abdominal pain after eating breakfast as well as nausea and vomiting. Went to [facility] and during transport her head syncopal [...] at bedside. Complains of some abdominal pain 4 out of 10 that is improved. Has been [...] social history were reviewed and updated in [facility] as appropriate. Review of Systems As [...] MD 08/27/2025 10:25 PM EST Workstation ID: [id number] Echo: Results: Reviewed. I reviewed the patient's [...] 0059 Librado Bangura MD at 08/27/25 1910 [facility] Medicine Services HISTORY AND PHYSICAL Patient [...] (2014), and tobacco use who presents to [facility] via transfer from [facility] for evaluation of pancreatitis and distended gallbladder. History of Present Illness Reason for Admit: Abdominal pain with nausea vomiting The patient presents to [facility] via transfer from [facility] for evaluation of abdominal pain with nausea and vomiting. He reports experiencing abdominal pain and chest discomfort, which began this morning after consuming a bowl of cereal for breakfast. The pain, described as a constant ache across his lower chest andupper abdomen, initially peaked at a severity of 10/10. [facility], morphine was administered, but it was [...] and sees Dr. Brooks for cardiology in [place]. Review of Systems Constitutional: Positive for activity [...] (2015), and tobacco use who presents to [facility] via transfer from [facility] for evaluation of pancreatitis and distended gallbladder. Patient/family describe syncopal episode in ambulance in route from [facility] this afternoon subjective SBP in the [...] and lactate 4 - Received Zosyn at [facility], continue - Repeat labs - Pain [...] 08/27/25, 9:11 PM EST Patient or patient circulation sales representative verbalized consent for the use of Ambient Listening during the visit for chart documentation. Attending Admission Attestation I have performed an independent wepy-kp-vepu diagnostic evaluation including performing an independent physical examination. I approve of the documented plan of care above that was reviewed and developed with the advanced practice physician (APC) and take responsibility for that plan along with itsassociated risks. I have updated the HPI as appropriate. Brief HPI Loc Thurman is a 84 y.o. male with significant medical history for COPD, HTN, HLD, high-grade prostate cancer s/p initiation of external beam radiation and hormonal therapy (2014), and tobacco use who presents to [facility] via transfer from [facility] for evaluation of pancreatitis and distended [...] Bangura MD 08/27/25 Contains text generated by Tindie [id number] Vital Signs (last day) Date/Time Temp Temp [...] -- -- 84 16 155/75 Sitting 98 08/30/259 -- -- 82 -- 172/84 -- -- [...] 650 mg Nasogastric Q4H PRN Marcos Cyr, PharmD Or acetaminophen (TYLENOL) suppository 650 mg 650 mg Rectal Q4H PRN Marcos Cyr, PharmD arformoterol (BROVANA) nebulizer solution 15 mcg [...] Driven Protocol Not Applicable PRHermes Valencia MD dextrose (D50W) (25 g/50 mL) IV [...] mg Intravenous Q6H PRN Alma Rosa Lucas APRN 10 mg at110/31/24 0243 HYDROmorphone (DILAUDID) injection 0.5 mg 0.5 mg Intravenous Q2H PRN Hermes Jaramillo MD 0.5 mg at110/30/24 2109 hydrOXYzine (ATARAX) tablet 25 mg 25 mg Oral TID PRN Alma Rosa Lucas MACHINE FILLER SHREDDER 25 mg at 08/29/25 2353 ipratropium-albuterol (DUO-NEB) nebulizer solution 3 mL 3 mL Nebulization Q6H PRN Hermes Jaramillo MD lisinopril (PRINIVIL,ZESTRIL) tablet 20 mg 20 mg Oral Q24H Brian Hughes MD 20 mg at 08/30/25 1556 Magnesium Standard Dose Replacement - Follow Nurse / BPA Driven Protocol Not Applicable Hermes Mishra MD melatonin tablet 5 mg 5 mg [...] MBP (CD) 4.5 g Intravenous Q8H Marcos Cyr, PharmD 4.5 g at 08/31/25 0818 potassium chloride (KLOR-CON) packet 40 mEq 40 mEq Oral Q4H Brian Hughes MD 40 mEq at 08/31/25 0509 Potassium Replacement - Follow Nurse / BPA Driven Protocol Not Applicable PRN Hermes Jaramillo MD sodium chloride 0.9 % flush 10 [...] Name: Loc Thurman Date of : 1940 [id number] 08/28/2025 PREOPERATIVE DIAGNOSIS: Acute cholecystitis with sepsis POSTOPERATIVE DIAGNOSIS: Same PROCEDURE PERFORMED: Laparoscopic cholecystectomy with intraoperative cholangiography SURGEON: Hermes Jaramillo MD MEDICAL ASSISTANT SECRETARY: Annie Jorgensen PA-C. Annie Jorgensen PA-C was [...] of 0 Vicryl was then placed in jqwkpt-vh-ftnel fashion around the defect, and a blunt [...] , the cystic duct and cystic artery werebluntly dissected free of other structures and clearly [...] fossa, and brought out through the lateralmost trocarsite. It was sutured to the skin using a nylon suture. He abdomen was again irrigated with saline until clear, and all trocars removed under direct and laparoscopic visualization. The fascia at the in feriormost incision was closed using the previously placed [...] All sponge and needle counts were correct times two at the completion of the procedure. COMPLICATIONS: None Hermes Jaramillo MD 08/28/2025 09:22 EST 0926 Physician Progress Notes (last 24 hours) Hermes Jaramillo MD at 08/31/25 0724 Patient Name: Loc Thurman Date of : 1940 [id number] Surgery Progress Note Date of visit: 08/31/2025 [...] display. Hermes Jaramillo MD 08/31/2025 07:24 EST 0725 Brian Hughes MD at 08/30/25 1208 Pulmonary/Critical [...] HISTORY Tobacco: Former smoker History taken from: [facility]//Social History were reviewed and updated appropriately [...] %] 40 % 08/29 701 - 08/30 07 In: 489.6 [I.V.:267.4] Out: 2004 [Urine:1745; Drains:50] Body mass index is 31.33 kg/m??. Mode: VC+/AC FiO2 (%): [40 %] 40 % S RR: [16] 16 S VT: [460 mL] 460 mL PEEP/CPAP (cm H2O): [6 cm H20] 6 cm H20 [place] SUP: [10 cm H20] 10 cm H20 [...] Results from last 7 days Lab Units 08/30/2540208/29/2560608/28/2555 08/28/2513 SODIUM mmol/L 148* 146* 145 147* POTASSIUM [...] a lung nodule by Dr. Castillo in [place], [place] on 08/26/2025. Subsequently, he was seen at [facility] for acute abdominal pain and sepsis and was transferred to [facility] for further evaluation. He was diagnosed [...] MD 08/30/25 12:08 EST Patient or patient circulation sales representative verbalized consent for the use of Ambient Listening during the visit for chart documentation. *Exception: for ICU patients or for instances where consent for use was not given, active listeningwas used only for dictation and was not used to record patient or family. 1232 Hermes Jaramillo MD at 08/30/25 0964 Patient Name: Loc Thurman Date of : 1940 [id number] Surgery Progress Note Date of visit: 08/30/2025 [...] INTRAOPERATIVE CHOLANGIOGRAM; Surgeon: Hermes Jaramillo MD; Location: [facility]; Service: General; Laterality: N/A; COLONOSCOPY HERNIA REPAIR [...] oriented x 3 -KG Row Name 08/30/25 133 Safety Issues/Impairments Affecting Functional Mobility Safety Issues [...] Bed Mobility Bed Mobility supine-sit -KG Supine-Sit Herreid (Bed Mobility) moderate assist (50% patient effort);2 [...] Row Name 08/30/25 133 Bed-Chair Transfer Bed-Chair Herreid (Transfers) maximum assist (25% patient effort);2 person assist;verbal cues -KG Assistive Device (Bed-Chair Transfers) other (see comments) B UE support -KG Row Name 08/30/251333 Sit-Stand Transfer Sit-Stand Herreid (Transfers) moderate assist (50% patient effort);2 person assist;verbal cues-KG Assistive Device (Sit-Stand Transfers) other (see comments) B UE support -KG Row Name 08/30/25 133 Gait/Stairs (Locomotion) Herreid Level (Gait) moderate assist (50% patient effort);2 [...] PT Physical Therapist Goals/Plan Row Name 08/30/25 1331 Bed Mobility Goal 1 (PT) Activity/Assistive Device (Bed Mobility Goal 1, PT) sit to supine;supine to sit -KG Herreid Level/Cues Needed (Bed Mobility Goal 1, PT) minimum assist (75% or more patient effort) -KG Time Frame (Bed Mobility Goal 1, PT) short term goal (STG);5 days -KG Progress/Outcomes (Bed Mobility Goal 1, PT) goal ongoing -KG Row Name 08/30/25 133 Transfer Goal 1 (PT) Activity/Assistive Device (Transfer Goal 1, PT) gcq-pn-fbymm/akzty-zi-wja;ics-mc-zwacn/musxs-ho-vat;walker, rolling -KG Herreid Level/Cues Needed (Transfer Goal 1, PT) minimum assist (75% or more patient effort) -KG Time Frame (Transfer Goal 1, PT) long-term goal (LTG);10 days -KG Progress/Outcome (Transfer Goal 1, PT) goal ongoing -KG Row Name 08/30/25 133 Gait Training Goal 1 (PT) Activity/Assistive Device (Gait Training Goal 1, PT) gait (walking locomotion);assistive device use;walker, rolling -KG Herreid Level (Gait Training Goal 1, PT) moderate assist (50-74% patient effort) -KG Distance (Gait Training Goal 1, PT) 50 feet -KG Time Frame (Gait Training Goal 1, PT) long-term goal (LTG);10 days -KG Progress/Outcome (Gait Training Goal 1, PT) goal ongoing -KG Row Name 08/30/25 7567 Therapy Assessment/Plan (PT) Planned Therapy Interventions (PT) balance training;bed mobility training;gait training;strengthening;transfer training -KG User Jung (r) = Recorded By, (t) = Taken By, (c) = Cosigned By Initials Name Provider Type KG Flora Galvan, PT Physical Therapist Clinical Impression Row Name 08/30/25 2777 Pain Additional Documentation Pain Scale: FACES Pre/Post-Treatment (Group) -KG Row Name 08/30/25 1940 Pain Scale: FACES Pre/Post-Treatment Pain: FACES Scale, Pretreatment 4-->hurts little more -KG Posttreatment Pain Rating 6-->hurts even more -KG Row Name 08/30/25 9615 Plan of Care Review Plan of Care Reviewed With patient -KG Outcome Evaluation PT initial evaluation completed for pt s/p cholecystectomy presenting with generalized weakness, increased SOA, impaired balance and coordination, c/o incisional pain, and decreased functional mobility. Pt required modA x2 for STS transfers and modA x2- maxA x2 to take steps frombed to chair and BSC. Pt's decreased independence warrants management supervisor care. Recommend D/C to IP rehab facility. -KG Row Name 08/30/25 4531 Therapy Assessment/Plan (PT) Patient/Family Therapy Goals Statement [...] (PT) -KG AM-PAC 6 Clicks Daily Activity (OT)-MC User Jung (r) = Recorded By, (t) = Taken By, (c) = Cosigned By Initials Name Provider Type KG Flora Galvan, [place] Physical Therapist Aury Gallegos OT Occupational Therapist Physical Therapy Education Title: PT OT GREY TENDER Therapies (In Progress) Topic: Physical Therapy (In [...] chair and BSC. Pt's decreased independence warrants management supervisor care. Recommend D/C to IP rehab facility. [...] Description Service Date Service Provider Modifiers Qty [id number] HC PT EVAL MOD COMPLEXITY 4 08/30/2025 Flora Galvan, PT GP 1 PT G-Codes Outcome Measure Options: AM-PAC 6 Clicks Basic Mobility (PT) AM-PAC 6 Clicks Score (PT): 11 AM-PAC 6 Clicks Score (OT): 12 PT Discharge Summary Anticipated Discharge Disposition (PT): inpatient rehabilitation facility Ellen Jacklyn Galvan, PT 08/30/2025 1341 Occupational Therapy Notes (most [...] INTRAOPERATIVE CHOLANGIOGRAM; Surgeon: Hermes Jaramillo MD; Location: [facility]; Service: General; Laterality: N/A; COLONOSCOPY HERNIA REPAIR General Information Row Name 08/30/25 1140 OT Time and Intention Document Type evaluation -MC Mode of Treatment occupational therapy;co-treatment - Row Name 08/30/25 1140 General Information Patient Profile Reviewed yes -MC Prior Level of Function independent:;bed mobility;transfer;all household mobility;community mobility;ADL's Pt I w/ ADLs at baseline, uses RW PRN. -MC Existing Precautions/Restrictions fall;oxygen therapy device and L/min;other [...] into deficits/self-awareness;safety precaution awareness;safety precaution follow-through;sequencing abilities [facility] User Jung (r) = Recorded By, (t) = Taken By, (c) = Cosigned By Initials Name Provider Type Aury Fitzgerald OT Occupational Therapist Mobility/ADL's Row Name 08/30/25 1141 Bed Mobility Bed Mobility supine-sit - Supine-Sit Herreid (Bed Mobility) moderate assist (50% patient effort);2 [...] mod Ax2 for STS & SPT from [id number] but req max Ax2 for SPT from [id number]. - Row Name 08/30/25 1141 Bed-Chair Transfer Bed-Chair Herreid (Transfers) moderate assist (50% patient effort);2 person assist;verbal cues- Assistive Device (Bed-Chair Transfers) other (see comments) BUE support -[facility] Name 08/30/25 1141 Sit-Stand Transfer Sit-Stand Herreid (Transfers) moderate assist (50% patient effort);2 person assist;verbal cues- Assistive Device (Sit-Stand Transfers) other (see comments) - Row Name 08/30/25 1141 Stand-Sit Transfer Stand-Sit Herreid (Transfers) moderate assist (50% patient effort);2 person assist;verbal cues- Assistive Device (Stand-Sit Transfers) other (see comments) -[facility] Name 08/30/25 1141 Toilet Transfer Type (Toilet Transfer) sit-stand;stand-sit;stand pivot/stand step - Herreid Level (Toilet Transfer) maximum assist (25% patient effort);2 person assist;verbal cues - Assistive Device (Toilet Transfer) commode, bedside without drop arms -[facility] Name 08/30/25 1141 Activities of Daily Living BADL Assessment/Intervention lower body dressing;upper body dressing -[facility] Name 08/30/25 1141 Lower Body Dressing Assessment/Training Herreid Level (Lower Body Dressing) don;socks;dependent (less than 25% patient effort) - Position (Lower Body Dressing) supine -[facility] Name 08/30/25 1141 Upper Body Dressing Assessment/Training Herreid Level (Upper Body Dressing) don;pajama/robe;maximum assist (25% patient effort) - Position (Upper Body Dressing) edge of bed sitting - User Jung (r) = Recorded By, (t) = Taken By, (c) = Cosigned By Initials Name Provider Type Aury Fitzgerald OT Occupational Therapist Obj/Interventions Row Name 08/30/25 1145 Sensory Assessment (Somatosensory) Sensory Assessment (Somatosensory) UE sensation intact -[facility] Name 08/30/25 1145 Vision Assessment/Intervention Visual Impairment/Limitations WFL -[facility] Name 08/30/25 1145 Range of Motion Comprehensive General Range of Motion bilateral upper extremity ROM WFL -[facility] Name 08/30/25 1145 Strength Comprehensive (MMT) General Manual Muscle Testing (MMT) Assessment upper extremity strength deficits identified - Comment, General Manual Muscle Testing (MMT) Assessment BUE grossly 4-/5 -[facility] Name 08/30/25 1145 Balance Balance Assessment sitting [...] Type Aury Fitzgerald OT Occupational Therapist Goals/Plan [facility] Name 08/30/251146 Transfer Goal 1 (OT) Activity/Assistive Device (Transfer Goal 1, OT) vwo-mu-xxokr/iishf-wu-cll;toilet;walker, rolling - Herreid Level/Cues Needed (Transfer Goal 1, OT) standby assist - Time Frame (Transfer Goal 1, OT) building stonecutter goal (LTG);10 days - Progress/Outcome (Transfer Goal 1, OT) goal ongoing - Row Name 08/30/25 114 Toileting Goal 1 (OT) Activity/Device (Toileting Goal 1, OT) adjust/manage clothing;perform perineal hygiene;commode;grabbar/safety frame [facility] [place]id Level/Cues Needed (Toileting Goal 1, OT) standby assist - Time Frame (Toileting Goal 1, OT) short term goal (STG);5 days - Progress/Outcome (Toileting Goal 1, OT) goal ongoing - Row Name 08/30/25 114 Grooming Goal 1 (OT) Activity/Device (Grooming Goal 1, OT) hair care;oral care;wash face, hands - Herreid (Grooming Goal 1, OT) standby assist - Time Frame (Grooming Goal 1, OT) building stonecutter goal (LTG);10 days - Progress/Outcome (Grooming Goal 1, OT) goal ongoing - Row Name 08/30/25 114 Therapy Assessment/Plan (OT) Planned Therapy Interventions (OT) activity tolerance training;adaptive equipment training;BADL retraining;functional balance retraining;IADL retraining;occupation/activity based interventions;patient/caregiver education/training;ROM/therapeutic exercise;strengthening exercise;transfer/mobility retraining - User Jung (r) = Recorded By, (t) = Taken By, (c) = Cosigned By Initials Name Provider Type Aury Fitzgerald, ARY Occupational Therapist Clinical Impression [facility] Name 08/30/25 1145 Pain Assessment Pain Location abdomen - Pain Side/Orientation generalized - Pain Management Interventions exercise or physical activity utilized;positioning techniques utilized - Response to Pain Interventions activity participation with tolerable pain - Additional Documentation Pain Scale: FACES Pre/Post-Treatment (Group) -[facility] Name 08/30/25 1145 Pain Scale: FACES Pre/Post-Treatment Pain: FACES Scale, Pretreatment 4-->hurts little more - Posttreatment Pain Rating 4-->hurts little more -[facility] Name 08/30/25 1145 Plan of Care Review Plan of Care Reviewed With patient;son - Outcome Evaluation Pt's ADL independence limited d/t generalized weakness, decrease functional endurance, balance deficits, and pain. Pt would benefit from continued skilled IPOT services to address current functional deficits. Rec IRF at d/c. -[facility] Name 08/30/25 114 Therapy Assessment/Plan (OT) Patient/Family Therapy Goal Statement (OT) Return to OF - Rehab Potential (OT) good - Criteria for Skilled Therapeutic Interventions Met (OT) yes;skilled treatment is necessary [facility] Therapy Frequency (OT) daily - Predicted Duration of Therapy Intervention (OT) 10 days -[facility] Name 08/30/25 1145 Therapy Plan Review/Discharge Plan (OT) Anticipated Discharge Disposition (OT) inpatient rehabilitation facility -[facility] Name 08/30/25 1149 Vital Signs Pre Systolic BP Rehab 163 -MC Pre Treatment Diastolic BP 86 - Intra Systolic BP Rehab 167 -MC Intra [...] Bathing (including washing, rinsing, and drying) 2 - Toileting (which includes using toilet bed currie or urinal) 1 - Putting on and taking off regular upper body clothing 2 - Taking care of personal grooming (such as [...] Therapist Occupational Therapy Education Title: PT OT GREY TENDER Therapies (In Progress) Topic: Occupational Therapy (In Progress) Point: ADL training (In Progress) Learning Progress Summary Patient Acceptance, E, NR by at 08/30/2025 1147 Point: Precautions (In Progress) Learning Progress Summary Patient Acceptance, E, NR by at 08/30/2025 1147 Point: Body mechanics (In Progress) Learning Progress Summary Patient Acceptance, E, NR by at 08/30/2025 1147 User Jung Initials Effective Dates Name Provider Type [facility] 08/02/22 - Aury Fitzgerald OT Occupational Therapist [...] Time Calculation- OT OT Start Time 915 -MC OT Received On 08/30/25 - OT Goal [...] Description Service Date Service Provider Modifiers Qty [id number] OT EVAL MOD COMPLEXITY 4 08/30/2025 Aury Fitzgerald OT GO 1 Aury Fitzgerald OT 08/30/2025 1148 Speech Language Pathology Notes (most recent note) No notes exist for this encounter. documented in this encounter Discharge Instructions * Attachments The following attachments cannot be sent through Care Everywhere. * Acute Pancreatitis ([place]es) documented in this encounter Medications at Time [...] date: 08/27/2025 Reason for Encounter: Follow-up/Progress Note [facility] Clinical Nutrition Assessment Subjective Subjective Information 09/05 GREY TENDER re-evaluated pt today and advanced modified to [...] INTRAOPERATIVE CHOLANGIOGRAM; Surgeon: Hermes Jaramillo MD; Location: [facility]; Service: General; Laterality: N/A; COLONOSCOPY HERNIA REPAIR [...] 96.2 kg (212 lb 1.3 oz) (09/02/25 180) Weight Method: Bed scale BMI (Calculated): 32.3 [...] Driven Protocol sodium chloride Physical Findings Chewing/Swallowing GREY TENDER following and Dysphagia Dentition Mouth/Teeth WDL: .WDL [...] Intake & Output (last 3 days) 09/02 0709/03 0709/03 0709/04 0709/04 0701 09/05 0700 09/05 0701 09/06 0700 [...] Name: Loc Thurman Date of : 1940 [id number] Surgery Progress Note Date of visit: 09/05/2025 [...] placement. OK to go to rehab from [facility]. RTC with me in 4 weeks. [...] from the original note were not included. [facility] Medicine Services PROGRESS NOTE Patient Name: [...] 0343 09/02/25 0543 09/01/25 1705 09/01/2540008/31/25337 SODIUM 145 -- 149* 148* -- 148* [...] the biopsy showed. Procedure was done at [facility], will try and get records Friday. [...] present. AM-PAC 6 Clicks Score (PT): 18 (09/04/2521) CODE STATUS: Code Status and Medical Interventions: [...] from the original note were not included. [facility] Medicine Services PROGRESS NOTE Patient Name: [...] in this interval not displayed. Lab 09/03/25 03409/02/2554209/01/25 1705 09/01/2540008/31/2533708/30/25402 SODIUM 149* 148* -- 148* 151* 148* [...] 2.0* 1.7* 2.5 Lab 09/02/25 0543 09/01/25 04008/31/25 03308/30/25 04008/28/25 0955 11/0961208/27/251942 TOTAL PROTEIN 5.5* 5.0* 5.1* 5.0* 5.2* [...] 137* -- 80* 576* Lab 09/02/25 1436 08/28/2561208/27/25223308/27/251942 PROBNP 9,267.0* -- -- -- HSTROP T -- -- 34* 39* PROTIME -- 18.2* -- -- INR -- 1.41* -- -- Lab 08/28/25 0638 08/28/25 0608/27/251942 IRON -- -- 86 IRON SATURATION (TSAT) [...] MD 09/02/2025 12:12 PM EST Workstation ID: [id number] XR Chest 1 View Result Date: 09/02/2025 [...] MD 09/02/2025 12:03 PM EST Workstation ID: [id number] Results for orders placed during the hospital [...] - Pt on a modified diet per GREY TENDER - Will continue close monitoring Hypophosphatemia - [...] the biopsy showed. Procedure was done at [facility], will try and get records. Discussed [...] AM-PAC 6 Clicks Score (PT): 18 (09/03/25 2248) CODE STATUS: Code Status and Medical Interventions: [...] from the original note were not included. [facility] Medicine Services PROGRESS NOTE Patient Name: Loc Thurman : 1940 Date of Admission: 08/27/2025 Primary Care Physician: Lisa Arreola APRN Subjective Subjective CC: Abd pain HPI: Pt sitting up in bed, having more shortness of breath. Spoke with GREY TENDER and patient's swallow study was worse than previous. Diet recommendations reviewed with patient and family. 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 ECHO dating 02/21/2023 done at [facility] showed EF 55-60% without diastolic dysfunction [...] not displayed. Lab 09/02/25 0543 09/01/25 1705 09/01/2540008/31/25 0338 08/30/2540208/29/25 0607 SODIUM 148* -- 148* 151* [...] MD 09/02/2025 12:12 PM EST Workstation ID: [id number] XR Chest 1 View Result Date: 09/02/2025 [...] MD 09/02/2025 12:03 PM EST Workstation ID: [id number] I have personally reviewed the therapy plans: [...] Last ECHO found was 02/21/2023 done at [facility] showed EF 55-60% without diastolic dysfunction [...] - Pt on a modified diet per GREY TENDER - Will monitor for now with a.m. [...] date: 08/27/2025 Reason for Encounter: Follow-up/Progress Note [facility] Clinical Nutrition Assessment Subjective Subjective Information [...] INTRAOPERATIVE CHOLANGIOGRAM; Surgeon: Hermes Jaramillo MD; Location: [facility]; Service: General; Laterality: N/A; COLONOSCOPY HERNIA REPAIR [...] Driven Protocol sodium chloride Physical Findings Chewing/Swallowing GREY TENDER following Dentition Mouth/Teeth WDL: .WDL except, teeth [...] Intake & Output (last 3 days) 08/30 0701 08/31 0700 08/31 0701 09/01 0700 09/01 0701 09/02 0700 09/02 0709/03 0700 P.O. 300 I.V. (mL/kg) 95.5 [...] Name: Loc Thurman Date of : 1940 [id number] Surgery Progress Note Date of visit: 09/02/2025 [...] from the original note were not included. [facility] Medicine Services PROGRESS NOTE Patient Name: [...] values in this interval not displayed. Lab 09/01/2540008/31/25337 08/30/25 0403 08/28/25 0955 08/28/25 0613 08/27/251942 TOTAL PROTEIN 5.0* 5.1* 5.0* 5.2* [...] Lab Results None Microbiology Results Abnormal None GREY TENDER FEES - Fiberoptic Endo Eval Swallow Result [...] Name: Loc Thurman Date of : 1940 [id number] Surgery Progress Note Date of visit: 09/01/2025 [...] HISTORY Tobacco: Former smoker History taken from: [facility]//Social History were reviewed and updated appropriately [...] Resp: [16-20] 20 BP: (138-185)/(65-100) 160/77 08/30 701 - 08/31 700 In: 908.6 [I.V.:95.5] Out: 192 [Urine:1885; Drains:40] Body mass index is 31.58 [...] 7 days Lab Units 08/31/2533708/30/2540208/29/25 0607 08/28/25 0955 SODIUM mmol/L 151* 148* [...] a lung nodule by Dr. Castillo in [place], [place] on 08/26/2025. Subsequently, he was seen at [facility] for acute abdominal pain and sepsis and was transferred to [facility] for further evaluation. He was diagnosed [...] MD 08/31/25 17:48 EST Patient or patient circulation sales representative verbalized consent for the use of Ambient Listening during the visit for chart documentation. *Exception: for ICU patients or for instances where consent for use was not given, active listeningwas used only for dictation and was not used to record patient or family. * Aaliyah Peralta, MS,RD,LD - 08/31/2025 1:05 PM EST Patient Name: Loc Thurman Date of : 1940 Admission date: 08/27/2025 Reason for Encounter: Follow-up/Progress Note [facility] Clinical Nutrition Assessment Subjective Subjective Information [...] INTRAOPERATIVE CHOLANGIOGRAM; Surgeon: Hermes Jaramillo MD; Location: [facility]; Service: General; Laterality: N/A; COLONOSCOPY HERNIA REPAIR [...] Driven Protocol sodium chloride Physical Findings Chewing/Swallowing GREY TENDER following Dentition Mouth/Teeth WDL: .WDL except Teeth [...] & Output (last 3 days) 08/28 0708/29 0708/30 0708/31 07 I.V. (mL/kg) 4376.7 (46.9) 267.4 (2.9) 95.5 (1) 234 (2.5) Other 177 100 NG/GT 70 342 195 IV Piggyback 600 152.2 294.1 80.5 Total Intake(mL/kg) 4976.7 (53.3) 489.6 (5.2) 908.6 (9.6) 609.5 (6.5) Urine (mL/kg/hr) 1230 (0.5) 1745 (0.8) 1885 (0.8) 315 (0.6) Emesis/NG output 350 210 Drains 105 50 40 Stool 0 Total Output 1684 2004 192 315 Net +3291.7 -1515.4 -1016.4 +294.5 Stool Unmeasured Occurrence 1 x Nutrition Focused Physical Exam 08/30/25: NFPE not completed r/t pt unable to consent at this time Estimated Needs Date Assessed 08/30 Weight(s) Used 93.4 kg CBW 70.34 kg IBW Energy Requirements Method for Estimation 17-20kcal/kg CBW = 1588 - 1868 25-30 kcals/kg IBW = 5432-2391 MSJ (1586) x 1.1 = 1745 Daily [...] Na+); Texture: Pureed (NDD 1); Fluid Consistency: [place] Thick Oral Nutrition Supplement None Trending % [...] prn Electronically signed by: Aaliyah Peralta, ,RD,LD 08/31/25 13:05 EST * Hermes Jaramillo MD - 08/31/2025 7:24 AM EST Patient Name: Loc Thurman Date of : 1940 [id number] Surgery Progress Note Date of visit: 08/31/2025 [...] Note LOS: 3 days Patient Care Team: iLsa Arreola APRN as PCP - General (Nurse [...] HISTORY Tobacco: Former smoker History taken from: [facility]//Social History were reviewed and updated appropriately [...] H2O): [6 cm H20] 6 cm H20 [place] SUP: [10 cm H20] 10 cm H20 [...] from last 7 days Lab Units 08/30/2540208/29/25 0608/28/2555 08/28/2513 SODIUM mmol/L 148* 146* 145 147* POTASSIUM [...] a lung nodule by Dr. Castillo in [place], [place] on 08/26/2025. Subsequently, he was seen at [facility] for acute abdominal pain and sepsis and was transferred to [facility] for further evaluation. He was diagnosed [...] MD 08/30/25 12:08 EST Patient or patient circulation sales representative verbalized consent for the use [...] Reason for Encounter: NPO/CLD x 3 days+ [facility] Clinical Nutrition Assessment Subjective Subjective Information [...] INTRAOPERATIVE CHOLANGIOGRAM; Surgeon: Hermes Jaramillo MD; Location: [facility]; Service: General; Laterality: N/A; COLONOSCOPY HERNIA REPAIR Current Problems Admission Diagnosis: Pancreatitis [K85.90] Pancreatitis, acute [K85.90] Problem List: Acute pancreatitis Vasovagal syncope HTN (hypertension) Mixed hyperlipidemia COPD (chronic obstructive pulmonary disease) Former tobacco use History of prostate cancer BPH with obstruction/lower urinary tract symptoms Respiratory insufficiency Shock Applicable Nutrition Hx (08/28) s/p lap CCY w/ intraoperative cholangiography (08/30) extubated ? GREY TENDER eval pending Anthropometrics Height: 172.7 cm (67.99 [...] Driven Protocol sodium chloride Physical Findings Chewing/Swallowing GREY TENDER following Dentition Mouth/Teeth WDL: .WDL except Teeth [...] (last 3 days) 08/27 0708/28 0708/28 0708/29 0708/29 0701 08/30 0708/30 0708/31 0700 I.V. (mL/kg) 25 (0.3) 4376.7 (46.9) 267.4 [...] 1588 - 1868 25-30 kcals/kg IBW = 2476-9551 MSJ (1586) x 1.1 = 1745 Daily [...] Prescription Advance diet as clinically indicated per GREY TENDER recs Supplement Prescription Education Provided Enteral Prescription [...] Name: Loc Thurman Date of : 1940 [id number] Surgery Progress Note Date of visit: 08/30/2025 [...] a lung nodule by Dr. Castillo in [place], [place] on 08/26/2025. Subsequently, he was seen at [facility] for acute abdominal pain and sepsis and was transferred to [facility] for further evaluation. He was diagnosed [...] HISTORY Tobacco: Former smoker History taken from: [facility]//Social History were reviewed and updated appropriately [...] (%): [45 %-100 %] 45 % 08/28 07 - 08/29 07 In: 4976.7 [I.V.:4376.7] Out: 1685 [Urine:1230; Drains:105] Body mass index is 31.33 kg/m??. Mode: VC+/AC FiO2 (%): [45 %-100 %] 45 % S RR: [14-16] 16 S VT: [460 mL] 460 mL PEEP/CPAP (cm H2O): [5 cm H20-10 cm H20] 10 cm H20 MAP (cm H2O): [9-15] 14 IV drips: fentanyl 10 mcg/mL, Last Rate: 200 mcg/hr (08/28/253) norepinephrine, Last Rate: Stopped (08/28/25 0232) phenylephrine, Last Rate: 0.25 mcg/kg/min (08/29/25 0400) propofol, Last Rate: 20 mcg/kg/min (08/29/25 0830) vasopressin, Last Rate: 0.03 Units/min (11/10/25 0830) Physical Exam: Physical Exam General: Elderly male [...] 5-50 mcg/kg/min, Last Rate: 20 mcg/kg/min (08/29/25 08) vasopressin, 0.03 Units/min, Last Rate: 0.03 Units/min [...] a lung nodule by Dr. Castillo in [place], [place] on 08/26/2025. Subsequently, he was seen at [facility] for acute abdominal pain and sepsis and was transferred to [facility] for further evaluation. He was diagnosed [...] MD 08/29/25 09:20 EST Patient or patient circulation sales representative verbalized consent for the use of Ambient Listening during the visit for chart documentation. *Exception: for ICU patients or for instances where consent for use was not given, active listeningwas used only for dictation and was not used to record patient or family. * Hermes Jaramillo MD - 08/29/2025 7:24 AM EST Patient Name: Loc Thurman Date of : 1940 [id number] Surgery Progress Note Date of visit: 08/29/2025 [...] Name: Loc Thurman Date of : 1940 [id number] Surgery Post - Operative Note Date of [...] last 7 days Lab Units 08/28/25 0843 08/28/2561208/27/251942 WBC 10*3/mm3 -- 42.13* 15.69* HEMOGLOBIN g/dL -- 9.2* 11.1* HEMOGLOBIN, POC g/dL 7.8* -- -- PLATELETS 10*3/mm3 -- 183 171 Results from last 7 days Lab Units 08/28/25 0613 08/28/25 0135 08/27/254 08/27/251942 SODIUM mmol/L 147* 143 -- 143 [...] Results from last 7 days Lab Units 08/28/2543 08/28/25 0718 PH, ARTERIAL pH units 7.18* 7.273* PCO2, ARTERIAL mm Hg -- 31.2* PO2 ART mm Hg -- 87.0 I reviewed the patient's new clinical results. I reviewed the patient's new imaging results/reports including actual images and agree with reports. Imaging Results (Last 24 Hours) Procedure Component Value Units Date/Time FL Cholangiogram Operative - In process [[id number]] Resulted: 08/28/25828 Updated: 08/28/25845 This result has not been signed. Information might be incomplete. XR Chest 1 View [[id number]] Collected: 08/28/25 0544 Updated: 08/28/25 0548 Narrative: XR CHEST 1 VW Date of [...] MD 08/28/2025 5:45 AM EST Workstation ID: [id number] CT Abdomen Pelvis Without Contrast [[id number]] Collected: 08/27/252219 Updated: 08/27/252227 Narrative: CT ABDOMEN [...] MD 08/27/2025 10:25 PM EST Workstation ID: [id number] Assessment & Plan Impression Acute pancreatitis Vasovagal [...] Name: Loc Thurman Date of : 1940 [id number] Surgery Progress Note Date of visit: 08/28/2025 [...] Rubin MD - 08/27/2025 11:40 PM EST TRANSITION LEAD PROGRESS NOTE SUBJECTIVE Loc 84 y.o. male is followed for:No chief complaint on file. Pancreatitis Vasovagal syncope HTN (hypertension) Mixed hyperlipidemia COPD (chronic obstructive pulmonary disease) Former tobacco use History of prostate cancer BPH with obstruction/lower urinary tract symptoms As an Tunnel Heading Inspector, we provide an integrated approach to the [...] mass [facility]25 because of evaluation of possible pancreatitis and cholecystitis. Patient underwent bronchoscopy yesterday for lung nodules/mass. Did have scant hemoptysis mixed in with saliva yesterday evening postprocedure. Has not had any olga hemoptysis orno further episodes. Today he woke up with upper abdominal pain after eating breakfast as well as nausea and vomiting. Went to [facility] and during transport her head syncopal [...] social history were reviewed and updated in [employer] as appropriate. Review of Systems As described [...] MD 08/27/2025 10:25 PM EST Workstation ID: [id number] Echo: Results: Reviewed. I reviewed the patient's [...] from the original note were not included. [facility] Medicine Services HISTORY AND PHYSICAL Patient [...] (2014), and tobacco use who presents to [facility] via transfer from [facility] for evaluation of pancreatitis and distended gallbladder. History of Present Illness Reason for Admit: Abdominal pain with nausea vomiting The patient presents to [facility] via transfer from [facility] for evaluation of abdominal pain with nausea and vomiting. He reports experiencing abdominal pain and chest discomfort, which began this morning after consuming a bowl of cereal for breakfast. The pain, described as a constant ache across his lower chest andupper abdomen, initially peaked at a severity of 10/10. [facility], morphine was administered, but it was [...] and sees Dr. Brooks for cardiology in [place]. Review of Systems Constitutional: Positive for activity [...] (2014), and tobacco use who presents to [facility] via transfer from [facility] for evaluation of pancreatitis and distended gallbladder. Patient/family describe syncopal episode in ambulance in route from [facility] this afternoon subjective SBP in the [...] and lactate 4 - Received Zosyn at [facility], continue - Repeat labs - Pain [...] 08/27/25, 9:11 PM EST Patient or patient circulation sales representative verbalized consent for the use of Ambient Listening during the visit for chart documentation. Attending Admission Attestation I have performed an independent [id number] diagnostic evaluation including performing an independent physical examination. I approve of the documented plan of care above that was reviewed and developed with the advanced practice physician (APC) and take responsibility for that plan along with itsassociated risks. I have updated the HPI as appropriate. Brief HPI Loc Thurman is a 84 y.o. male with significant medical history for COPD, HTN, HLD, high-grade prostate cancer s/p initiation of external beam radiation and hormonal therapy (2014), and tobacco use who presents to [facility] via transfer from [facility] for evaluation of pancreatitis and distended [...] APRN Authorized by: Alma Rosa Lucas APRN [place] Protocol: Verbal consent obtained?: Yes Risks and [...] time out verifies correct patient, procedure, equipment, respiratory support technician and site/side marked as required: Preparation: Preparation: [...] to verify the correct patient, procedure, equipment, respiratory support technician and site/side marked as required. Indications: vascular [...] Name: Loc Thurman Date of : 1940 [id number] Patient Care Team: Provider, No Known as [...] left lung mass. He underwent bronchoscopy at [facility] yesterday. He states postoperatively he did [...] for cancers Social History: Pt lives in [facility]. Tobacco use: Denies , quit 35 [...] Jaramillo MD 08/27/25 21:11 EST Dictated using Scribdation CT scan personally reviewed. This shows acute [...] of Care Reviewed With: patient Progress: improving Andrea Montaño MS [facility]-GREY TENDER - 09/02/2025 1:04 PM EST Goal Outcome Evaluation: Plan of Care Reviewed With: patient Progress: declining Anticipated Discharge Disposition (GREY TENDER): inpatient rehabilitation facility GREY TENDER Swallowing Diagnosis: mild, oral dysphagia, mod-severe, pharyngeal [...] Fall Risk Recent Flowsheet Documentation Taken 09/01/2025 0927 by Tamica Vo RN Safety Promotion/Fall Prevention: [...] Outcome: Progressing Goal Outcome Evaluation: * Nora Mnotano MS [facility]-GREY TENDER - 09/01/2025 4:10 PM EST Goal Outcome Evaluation: Plan of Care Reviewed With: patient Anticipated Discharge Disposition (GREY TENDER): inpatient rehabilitation facility Treatment Assessment (GREY TENDER): toleration of diet, clinical signs of, aspiration (09/01/25 153) Treatment Assessment Comments (GREY TENDER): Pt requesting thin liquids. Explained justification of thickened liquids (09/01/25 153) Plan for Continued Treatment (GREY TENDER): continue treatment per plan of care (09/01/251529) [...] inpatient rehabilitation facility * Andrea Dukes MS CCC-GREY TENDER - 08/31/2025 9:54 AM EST Goal Outcome Evaluation: Plan of Care Reviewed With: patient Progress: improving Anticipated Discharge Disposition (GREY TENDER): inpatient rehabilitation facility GREY TENDER Swallowing Diagnosis: moderate, oral dysphagia, pharyngeal dysphagia [...] 1:04 PM EST Associated attestation - Flora Galvan PT - 08/31/2025 1:04 PM EST Ellen Galvan, PT 08/31/2025 13:04 EST * Blossom Feldman RN - 08/31/2025 6:39 AM EST Goal Outcome Evaluation: discussed with patient Up in the chair x2 hrs then back to bed with assist of 3 and gait belt. B/p remains elevated. SUPER[employer] notified, Hydralazine ordered for sbp >160 given [...] adequate urine per maurer. starting trophic feeds, hatchery attendant to fees tomorrow. * Alma Aiken, Speech Therapy Student - 08/30/2025 11:14 AM EST Goal Outcome Evaluation: Plan of Care Reviewed With: (P) patient, child Anticipated Discharge Disposition (GREY TENDER): (P) inpatient rehabilitation facility GREY TENDER Swallowing Diagnosis: (P) suspected pharyngeal dysphagia (08/30/25 1005) Cosigned by Lea Echols MS CCC-GREY TENDER at 08/30/2025 11:59 AM EST Associated attestation - Lea Echols MS CCC-GREY TENDER - 08/30/2025 11:59 AM EST Lea Echols MS CCC-GREY TENDER * Aury Fitzgerald OT - 08/30/2025 9:16 [...] chair and BSC. Pt's decreased independence warrants management supervisor care. Recommend D/C to IP rehab facility. [...] to clear these secretions on his own. GREY TENDER eval ordered perprotocol. Early in to evening [...] Name: Loc Thurman Date of : 1940 [id number] 08/28/2025 PREOPERATIVE DIAGNOSIS: Acute cholecystitis with sepsis POSTOPERATIVE DIAGNOSIS: Same PROCEDURE PERFORMED: Laparoscopic cholecystectomy with intraoperative cholangiography SURGEON: Hermes Jaramillo MD MEDICAL ASSISTANT SECRETARY: Annie Jorgensen PA-C. Annie Jorgensen PA-C was [...] of 0 Vicryl was then placed in ysrcsj-hc-tuzbh fashion around the defect, and a blunt [...] Surgeon(s): Hermes Jaramillo MD Anesthesia: General Staff: Electronics Instructor: Maria Elena Buckner RN Physician Blocker Metal Base: Annie Jorgensen PA Scrub Person: Katherine Duke [...] Retention 08/28/25 0400 Site Assessment Skin intact;Clean 08/28/25599 Collection Container [...] MDR, medically ready for d/c today to [facility] @ [facility] inpatient rehab in [place], [place]. I spoke w/Ella liaison @ [facility], per Ella can come @ 1600 PM today. RN to call report to [phone] and send d/c packet w/patient. I will fax dc summary to [phone] when completed in [facility]. I discussed w/patient and son in [...] Provider Services Address Phone Fax Patient Preferred [facility] In[facility] Rehabilitation [address] [place], [place] [id number] -- Durable Medical Equipment No services have [...] facility * MBS/VFSS/FEES - Andrea Dukes MS CCC-GREY TENDER - 09/05/2025 10:16 AM EST Images from the original note were not included. Acute Care - Speech Language Pathology Swallow Re-Assessment [place] Modified Barium Swallow Study (MBS) Patient Name: oLc Thurman : 1940 Today's Date: 09/05/2025 Admit [...] INTRAOPERATIVE CHOLANGIOGRAM; Surgeon: Hermes Jaramillo MD; Location: [facility]; Service: General; Laterality: N/A; COLONOSCOPY HERNIA REPAIR GREY TENDER Recommendation and Plan Recommended discharge disposition is based on the functional assessment performed by PT/OT/Speech therapy (as applicable) and may not reflect the medical necessity determined by your provider or services covered by an individual patient's insurance plan or patient resource. GREY TENDER Swallowing Diagnosis: mild, oral dysphagia, pharyngeal dysphagia (09/05/25829) GREY TENDER Diet Recommendation: soft to chew textures, chopped, thin liquids (09/05/25829) Recommended Precautions and Strategies: chin tuck (09/05/25829) GREY TENDER Rec. for Method of Medication Administration: as tolerated (must utilize chin tuck with all PO)(09/05/25829) Monitor for Signs of Aspiration: yes, notify GREY TENDER if any concerns (09/05/25829) Swallow Criteria for Skilled Therapeutic Interventions Met: demonstrates skilled criteria () Anticipated Discharge Disposition (GREY TENDER): inpatient rehabilitation facility (09/05/25829) Rehab Potential/Prognosis, Swallowing: good, to achieve stated therapy goals (09/05/25829) Therapy Frequency (Swallow): 5 days per week (09/05/25829) Predicted Duration Therapy Intervention (Days): 2 weeks (09/05/25829) Oral Care Recommendations: Oral Care BID/PRN, Toothbrush (09/05/25829) Penetration of thins in chin neutral head posture Progress: declining SWALLOW EVALUATION (Last 72 Hours) GREY TENDER Adult Swallow Evaluation Row Name 09/05/2582909/02/25 1315 [...] Noted, Comment -- Reported to RN and MACHINE FILLER SHREDDER via secure chat who came and assessed at bedside-RS reported to RN and transport and radiology staff -RS General Information Patient Profile Reviewed yes -RS yes -RS yes -RS Pertinent History Of Current Problem See previous GREY TENDER notes -RS See previous GREY TENDER notes -RS See previous GREY TENDER notes -RS Pain Pretreatment Pain Rating 0/10 - no pain -RS 0/10 - no pain -RS 0/10 - no pain -RS Posttreatment Pain Rating 0/10 - no pain -RS 0/10 - no pain -RS 0/10 - no pain -RS General Eating/Swallowing Observations Respiratory Support Currently in Use room air -RS -- room air -RS Eating/Swallowing Skills self-fed -RS -- fed by GREY TENDER;needed assist;self-fed -RS Positioning During Eating upright 90 [...] aspiration;Silent aspiration;Risks of aspiration;Safest diet options -RS GREY TENDER Evaluation Clinical Impression GREY TENDER Swallowing Diagnosis mild;oral dysphagia;pharyngeal dysphagia -RS -- mild;oral dysphagia;mod-severe;pharyngeal dysphagia -RS Functional Impact risk of aspiration/pneumonia -RS -- risk of aspiration/pneumonia -RS Rehab Potential/Prognosis, Swallowing good, to achieve stated therapy goals -RS -- good, to achievestated therapy goals -RS Swallow Criteria for Skilled Therapeutic Interventions Met demonstrates skilled criteria -RS -- demonstrates skilled criteria -RS GREY TENDER Treatment Clinical Impressions Treatment Assessment (GREY TENDER) -- mild;oral dysphagia;moderate-severe;pharyngeal dysphagia -RS -- Treatment Assessment Comments (GREY TENDER) -- Lengthy education w pt and family. Discussed MBS results including review of all images on screen. Discussed modified diet, comfort diet, goal of rehab in [place], resp status, feelings of SOA, palatable food preferences, aspiration, silent aspiration, dysphagia, pharyngeal exs, oral care, free water, and repeat instrumental timeframe. Hospitalist MACHINE FILLER SHREDDER to order several more tests in light of SOA c/o and new cxr findings. If OK'd by hospital medicine team wouldlike to add small sips of free water between meals and after oral care. Pt is agreeable to independent practice of pharyngeal exs and repeat instrumental early next week. Pt and son verbalized understanding and appreciation. -RS -- Plan for Continued Treatment (GREY TENDER) -- continue treatment per plan of care -RS -- Care Plan Review -- evaluation/treatment results reviewed;care plan/treatment goals reviewed;risks/benefits reviewed -RS -- Recommendations Therapy Frequency (Swallow) 5 days per week -RS 5 days per week -RS 5 days per week -RS Predicted Duration Therapy Intervention (Days) 2 weeks -RS 2 weeks -RS 2 weeks -RS GREY TENDER Diet Recommendation soft to chew textures;chopped;thin liquids [...] BID/PRN;Toothbrush -RS Oral Care BID/PRN;Suction toothbrush -RS GREY TENDER Rec. for Method of Medication Administration as tolerated must utilize chin tuck with all PO -RS meds whole;with thick liquids;with puree -RS meds whole;with thick liquids;with puree -RS Monitor for Signs of Aspiration yes;notify GREY TENDER if any concerns -RS yes;notify GREY TENDER if any concerns -RS yes;notify GREY TENDER if any concerns -RS Anticipated Discharge Disposition (GREY TENDER) inpatient rehabilitation facility -RS inpatient rehabilitation facility -RS inpatient rehabilitation facility -RS User Jung (r) = Recorded By, (t) = Taken By, (c) = Cosigned By Initials Name Effective Dates RS Andrea Dukes MS [facility]-GREY TENDER 07/03/23 - EDUCATION The patient has been educated in the following areas: Dysphagia (Swallowing Impairment) Modified Diet Instruction. GREY TENDER GOALS Row Name 09/05/25 0830 09/02/25 1315 09/02/25 1100 (LTG) Patient will demonstrate functional swallow for Diet Texture (Demonstrate functional swallow) regular textures -RS regular textures -RS regular textures -RS Liquid viscosity (Demonstrate functional swallow) thin liquids -RS thin liquids -RS thin liquids -RS [place] (Demonstrate functional swallow) independently (over 90% accuracy) [...] use of compensatory strategies (see comments) -RS [place] (Tolerate trials) with minimal cues (75-90% accuracy) [...] signs of distress;with adequate oral prep/transit/clearance -RS [place] (Tolerate therapeutic trials) with minimal cues (75-90% accuracy) - RS with minimal cues (75-90% accuracy) -RS with minimal cues (75-90% accuracy) -RS Time Frame (Tolerate therapeutic trials) 1 week -RS 1 week -RS 1 week -RS Progress/Outcomes (Tolerate therapeutic trials) goal met -RS goal revised this -RS goal revised this date -RS (STG) Lingual Strengthening Goal 1 (GREY TENDER) Activity (Lingual Strengthening Goal 1, GREY TENDER) increase tongue back strength -RS increase tongue backstrength -RS increase tongue back strength -RS Increase Tongue Back Strength lingual resistance exercises -RS lingual resistance exercises -RS lingual resistance exercises -RS Herreid/Accuracy (Lingual Strengthening Goal 1, GREY TENDER) with minimal cues (75- 90% accuracy) -RS with minimal cues (75-90% accuracy) -RS with minimal cues (75- 90% accuracy) -RS Time Frame (Lingual Strengthening Goal 1, GREY TENDER) 1 week -RS 1 week -RS 1 week -RS Progress/Outcomes (Lingual Strengthening Goal 1, GREY TENDER) goal ongoing -RS goal ongoing -RS goal ongoing -RS (STG) Pharyngeal Strengthening Exercise Goal 1 (GREY TENDER) Activity (Pharyngeal Strengthening Goal 1, GREY TENDER) increase timing;increase superior movement of the hyolaryngeal [...] hard effortful swallow -RS hard effortful swallow -RS hard effortful swallow -RS Increase Tongue Base Retraction mike -RS mike -RS mike -RS Herreid/Accuracy (Pharyngeal Strengthening Goal 1, GREY TENDER) with minimal cues (75-90% accuracy) -RS with minimal cues (75-90% accuracy) -RS with minimal cues (75-90% accuracy) -RS Time Frame (Pharyngeal Strengthening Goal 1, GREY TENDER) 1 week -RS 1 week -RS 1 week -RS Progress/Outcomes (Pharyngeal Strengthening Goal 1, GREY TENDER) goal ongoing -RS goal ongoing -RS goal ongoing -RS Comment (Pharyngeal Strengthening Goal 1, GREY TENDER) Came back to room and demo'd all pharyngeal exercises and reviewed dysphagia exercise sheet w pt and son -RS -- -- (STG) Swallow Compensatory Strategies Goal 1 (GREY TENDER) Activity (Swallow Compensatory Strategies/Techniques Goal 1, GREY TENDER) aspiration precautions;compensatory strategies;chin up posture -RS -- -- Herreid/Accuracy (Swallow Compensatory Strategies/Techniques Goal 1, GREY TENDER) independently (over 90% accuracy) -RS -- -- Time Frame (Swallow Compensatory Strategies/Techniques Goal 1, GREY TENDER) 1 week -RS -- -- Progress/Outcomes (Swallow Compensatory Strategies/Techniques Goal 1, GREY TENDER) new goal -RS -- -- Comment (Swallow Compensatory Strategies/Techniques Goal 1, GREY TENDER) Discussed compensatory strategy use w demonstration w pt and son -RS -- -- User Jung (r) = Recorded By, (t) = Taken By, (c) = Cosigned By Initials Name Provider Type RS Andrea Dukes MS [facility]-GREY TENDER Speech and Language Pathologist Time Calculation: Time Calculation- GREY TENDER Row Name 09/05/25 1028 Time Calculation- GREY TENDER GREY TENDER Start Time 0830 -RS GREY TENDER Received On 09/05/25 -RS Timed Charges 83315-Dzivjmbtj Training Stragies & TQ 1st 30 Min 1 -RS Untimed Charges 88679-SP Motion Fluoro Eval Swallow Minutes 56 -RS 83172-BK Treatment Swallow Minutes 12 -RS Total Minutes Untimed Charges Total Minutes 68 -RS Total Minutes 68 -RS User Jung (r) = Recorded By, (t) = Taken By, (c) = Cosigned By Initials Name Provider Type RS Andrea Dukes MS CCC-GREY TENDER Speech and Language Pathologist Therapy Charges for Today Code Description Service Date Service Provider Modifiers Qty 62612900615 HC ST MOTION FLUORO EVAL SWALLOW 4 09/05/2025 Andrea Dukes MS CCC- SLP GN [address] TREATMENT SWALLOW 1 09/05/2025 Andrea Dukes MS CCC-SLP GN 1 [id number] CAREGIVER TRAINING STRATEGIES & TQ 1ST 30 MINUTES 09/05/2025 Andrea Dukes MS CCC-SLP 1 MS MARIA INES Chatterjee 09/05/2025 * Therapy Treatment Note - Andrea Dukes MS CCC-SLP - 09/02/2025 2:37 PM EST Images from the original note were not included. Acute Care - Speech Language Pathology Swallow Treatment Note and Education [place] Patient Name: Loc Thurman : 1940 Today's [...] INTRAOPERATIVE CHOLANGIOGRAM; Surgeon: Hermes Jaramillo MD; Location: [facility]; Service: General; Laterality: N/A; COLONOSCOPY HERNIA REPAIR GREY TENDER Recommendation and Plan Recommended discharge disposition is based on the functional assessment performed by PT/OT/Speech therapy (as applicable) and may not reflect the medical necessity determined by your provider or services covered by an individual patient's insurance plan or patient resource. GREY TENDER Swallowing Diagnosis: mild, oral dysphagia, mod-severe, pharyngeal dysphagia (09/02/251099) GREY TENDER Diet Recommendation: mechanical ground textures, no mixed consistencies, honey thick liquids (09/02/251314) Recommended Precautions and Strategies: no straw, small bites of food and sips of liquid, upright posture during/after eating, general aspiration precautions (09/02/251314) GREY TENDER Rec. for Method of Medication Administration: meds whole, with thick liquids, with puree (09/02/251314) Monitor for Signs of Aspiration: yes, notify GREY TENDER if any concerns (09/02/251314) Recommended Diagnostics: reassess via VFSS (MBS), other (see comments) (early next week) (09/02/251314) Swallow Criteria for Skilled Therapeutic Interventions Met: demonstrates skilled criteria () Anticipated Discharge Disposition (GREY TENDER): inpatient rehabilitation facility (09/02/251314) Rehab Potential/Prognosis, Swallowing: good, to achieve stated therapy goals (09/02/251099) Therapy Frequency (Swallow): 5 days per week (09/02/251314) Predicted Duration Therapy Intervention (Days): 2 weeks (09/02/251314) Oral Care Recommendations: Oral Care BID/PRN, Toothbrush (09/02/251314) Treatment Assessment (GREY TENDER): mild, oral dysphagia, moderate-severe, pharyngeal dysphagia (09/02/251314) Treatment Assessment Comments (GREY TENDER): Lengthy education w pt and family. Discussed MBS results including review of all images on screen. Discussed modified diet, comfort diet, goal of rehab in [place], resp status, feelings of SOA, palatable food preferences, aspiration, silent aspiration, dysphagia, pharyngeal exs, oral care, free water, and repeat instrumental timeframe. Hospitalist MACHINE FILLER SHREDDER to order several more tests in light of SOA c/o and new cxr findings. If OK'd by hospital medicine team would like to add small sips of free water between meals and after oral care. Pt is agreeable to independent practice of pharyngeal exs and repeat instrumental early next week. Pt and son verbalized understanding and appreciation. (09/02/251314) Plan for Continued Treatment (GREY TENDER): continue treatment per plan of care (09/02/25 1315) Progress: declining SWALLOW EVALUATION (Last 72 Hours) GREY TENDER Adult Swallow Evaluation Row Name 09/02/25 1315 [...] Symptoms Noted, Comment Reported to RN and MACHINE FILLER SHREDDER via secure chat who came and assessed at bedside -RS reported to RN and transport and radiology staff -RS -- -- Oral Care -- -- patient refused intervention -SM teeth brushed - suction toothbrush -RS General Information Patient Profile Reviewed yes -RS yes -RS yes -SM yes -RS Pertinent History Of Current Problem See previous GREY TENDER notes -RS See previous GREY TENDER notes -RS See previous GREY TENDER notes -SM See previous GREY TENDER notes. Pt has been cleared for PO [...] 3L -RS Eating/Swallowing Skills -- fed by GREY TENDER;needed assist;self-fed -RS self-fed;fed by GREY TENDER;needed assist- fed by staff/caregiver -RS Positioning During Eating [...] Signs of aspiration;Silent aspiration;Risks of aspiration -RS GREY TENDER Evaluation Clinical Impression GREY TENDER Swallowing Diagnosis -- mild;oral dysphagia;mod-severe;pharyngeal dysphagia -RS -- moderate;oral dysphagia;pharyngeal dysphagia -RS Functional Impact -- risk of aspiration/pneumonia -RS -- risk of aspiration/pneumonia -RS Rehab Potential/Prognosis, Swallowing -- good, to achieve stated therapy goals - RS -- good, to achieve stated therapy goals -RS Swallow Criteria for Skilled Therapeutic Interventions Met -- demonstrates skilled criteria -RS -- demonstrates skilled criteria -RS GREY TENDER Treatment Clinical Impressions Treatment Assessment (GREY TENDER) mild;oral dysphagia;moderate-severe;pharyngeal dysphagia -RS -- toleration of diet;clinical signs of;aspiration -SM -- Treatment Assessment Comments (GREY TENDER) Lengthy education w pt and family. Discussed MBS results including review of all images on screen. Discussed modified diet, comfort diet, goal of rehab in [facility], resp status, feelings of SOA, palatable food preferences, aspiration, silent aspiration, dysphagia, pharyngeal exs, oral care, free water, and repeat instrumental timeframe. Hospitalist MACHINE FILLER SHREDDER to order several more tests in light [...] liquids -SM -- Daily Summary of Progress (GREY TENDER) -- -- progress toward functional goals is good - SM -- Plan for Continued Treatment (GREY TENDER) continue treatment per plan of care -RS [...] 2 weeks - SM 2 weeks -RS GREY TENDER Diet Recommendation mechanical ground textures;no mixed consistencies;honey thick liquids -RS mechanical ground textures;no mixed consistencies;honey thick liquids -RS mechanical ground textures;nectar thick liquids;ice chips between meals after oral care, with supervision -SM puree;nectar thick liquids;other (see comments) PO diet at discretion of surgeon only -RS Recommended Diagnostics reassess via VFSS (MBS);other (see comments) early next week -RS -- reassess via FEES - -- Recommended [...] toothbrush -SM Oral Care BID/PRN;Suction toothbrush -RS GREY TENDER Rec. for Method of Medication Administration meds whole;with thick liquids;with puree -RS meds whole;with thick liquids;with puree -RS meds whole;with thick liquids -SM meds whole;with thick liquids;meds via alternate route -RS Monitor for Signs of Aspiration yes;notify GREY TENDER if any concerns -RS yes;notify GREY TENDER if any concerns -RS yes;notify GREY TENDER if any concerns -SM yes;notify GREY TENDER if any concerns -RS Anticipated Discharge Disposition (GREY TENDER) inpatient rehabilitation facility -RS inpatient rehabilitation facility -RS inpatient rehabilitation facility -SM inpatient rehabilitation facility -RS User Jung (r) = Recorded By, (t) = Taken By, (c) = Cosigned By Initials Name Effective Dates Andrea Mitchell MS CCC-GREY TENDER 07/03/23 - Nora Weiner MS CF-GREY TENDER 03/24/25 - EDUCATION The patient has been educated in the following areas: Dysphagia (Swallowing Impairment) Modified Diet Instruction. GREY TENDER GOALS Row Name 09/02/25 1315 09/02/25 1100 09/01/25 9880 (LTG) Patient will demonstrate functional swallow for Diet Texture (Demonstrate functional swallow) regular textures -RS regular textures -RS regular textures -SM Liquid viscosity (Demonstrate functional swallow) thin liquids -RS thin liquids -RS thin liquids -SM Herreid (Demonstrate functional swallow) independently (over 90% accuracy) [...] signs of distress;with adequate oral prep/transit/clearance -SM Herreid (Tolerate trials) with minimal cues (75-90% accuracy) -RS with minimal cues (75-90% accuracy) -RS with minimal cues (75-90% accuracy) -SM Time Frame (Tolerate trials) 1 week -RS 1 week -RS 1 week -SM Progress/Outcomes (Tolerate trials) goal revised this date -RS goal revised this date -RS goal revised this date -SM Comment (Tolerate trials) -- -- Upgraded to [facility] grnd solids -SM (STG) Patient will [...] signs of distress;with adequate oral prep/transit/clearance -SM Herreid (Tolerate therapeutic trials) with minimal cues (75-90% [...] w/ solid, but OK to upgrade to [facility] biloxid and monitor tolerance -SM (STG) Lingual Strengthening Goal 1 (GREY TENDER) Activity (Lingual Strengthening Goal 1, GREY TENDER) increase tongue back strength -RS increase tongue backstrength -RS increase tongue back strength -SM Increase Tongue Back Strength lingual resistance exercises -RS lingual resistance exercises -RS lingual resistance exercises -SM Herreid/Accuracy (Lingual Strengthening Goal 1, GREY TENDER) with minimal cues (75- 90% accuracy) -RS with minimal cues (75-90% accuracy) -RS with minimal cues (75- 90% accuracy) -SM Time Frame (Lingual Strengthening Goal 1, GREY TENDER) 1 week -RS 1 week -RS 1 week -SM Progress/Outcomes (Lingual Strengthening Goal 1, GREY TENDER) goal ongoing -RS goal ongoing -RS continuing progress toward goal -SM (STG) Pharyngeal Strengthening Exercise Goal 1 (GREY TENDER) Activity (Pharyngeal Strengthening Goal 1, GREY TENDER) increase timing;increase superior movement of the hyolaryngeal [...] Retraction mike -RS mike -RS mike -SM Herreid/Accuracy (Pharyngeal Strengthening Goal 1, GREY TENDER) with minimal cues (75-90% accuracy) -RS with minimal cues (75-90% accuracy) -RS with minimal cues (75-90% accuracy) -SM Time Frame (Pharyngeal Strengthening Goal 1, GREY TENDER) 1 week -RS 1 week -RS 1 week -SM Progress/Outcomes (Pharyngeal Strengthening Goal 1, GREY TENDER) goal ongoing -RS goal ongoing -RS continuing progress toward goal -SM Comment (Pharyngeal Strengthening Goal 1, GREY TENDER) -- -- Demo'd all and left at bedside - Row Name 08/31/25 0815 (LTG) Patient will demonstrate functional swallow for Diet Texture (Demonstrate functional swallow) regular textures -RS Liquid viscosity (Demonstrate functional swallow) thin liquids -RS Herreid (Demonstrate functional swallow) independently (over 90% accuracy) -RS Time Frame (Demonstrate functional swallow) 2 weeks -RS Progress/Outcomes (Demonstrate functional swallow) new goal -RS (STG) Patient will tolerate trials of Consistencies Trialed (Tolerate trials) pureed textures;nectar/ mildly thick liquids -RS Desired Outcome (Tolerate trials) without signs/symptoms of aspiration;without signs of distress;with adequate oral prep/transit/clearance -RS Herreid (Tolerate trials) with minimal cues (75-90% accuracy) -RS Time Frame (Tolerate trials) 1 week -RS Progress/Outcomes (Tolerate trials) new goal -RS (STG) Patient will tolerate therapeutic trials of Consistencies Trialed (Tolerate therapeutic trials) soft to chew (chopped) textures;nectar/ mildly thick liquids -RS Desired Outcome (Tolerate therapeutic trials) without signs/symptoms of aspiration;without signs ofdistress;with adequate oral prep/transit/clearance -RS Herreid (Tolerate therapeutic trials) with minimal cues (75-90% accuracy) -RS Time Frame (Tolerate therapeutic trials) 1 week -RS Progress/Outcomes (Tolerate therapeutic trials) new goal -RS (STG) Lingual Strengthening Goal 1 (GREY TENDER) Activity (Lingual Strengthening Goal 1, GREY TENDER) increase tongue back strength -RS Increase Tongue Back Strength lingual resistance exercises -RS Herreid/Accuracy (Lingual Strengthening Goal 1, GREY TENDER) with minimal cues (75- 90% accuracy) -RS Time Frame (Lingual Strengthening Goal 1, GREY TENDER) 1 week -RS Progress/Outcomes (Lingual Strengthening Goal 1, GREY TENDER) new goal -RS (STG) Pharyngeal Strengthening Exercise Goal 1 (GREY TENDER) Activity (Pharyngeal Strengthening Goal 1, GREY TENDER) increase timing;increase superior movement of the hyolaryngeal [...] -RS Increase Tongue Base Retraction mike -RS Herreid/Accuracy (Pharyngeal Strengthening Goal 1, GREY TENDER) with minimal cues (75-90% accuracy) -RS Time Frame (Pharyngeal Strengthening Goal 1, GREY TENDER) 1 week -RS Progress/Outcomes (Pharyngeal Strengthening Goal 1, GREY TENDER) new goal -RS User Jung (r) = Recorded By, (t) = Taken By, (c) = Cosigned By Initials Name Provider Type RS Andrea Dukes MS CCC-GREY TENDER Speech and Language Pathologist Nora Weiner, MS CF-GREY TENDER Speech and Language Pathologist Time Calculation: Time Calculation- GREY TENDER Row Name 09/02/25 1435 09/02/25 1302 Time Calculation- GREY TENDER GREY TENDER Start Time 1315 -RS 1100 -RS GREY TENDER Received On 09/02/25 -RS 09/02/25 -RS Timed Charges 99692-Lqwcyqlho Training Stragies & TQ 1st 30 Min 1 -RS -- 09649-Hexnwmuwm Training Stragies & TQ EA Addl 15 Min 1 -RS -- Untimed Charges 84252-PJ Motion Fluoro Eval Swallow Minutes -- 61 -RS 87257-KP Treatment Swallow Minutes 25 -RS -- Total Minutes Untimed Charges Total Minutes 25 -RS 61 -RS Total Minutes 25 -RS 61 -RS User Jung (r) = Recorded By, (t) = Taken By, (c) = Cosigned By Initials Name Provider Type RS Andrea Dukes MS CCC-GREY TENDER Speech and Language Pathologist Therapy Charges for Today Code Description Service Date Service Provider Modifiers Qty 18457374726 HC ST MOTION FLUORO EVAL SWALLOW 4 09/02/2025 Andrea Dukes MS CCC- GREY TENDER GN [address] TREATMENT SWALLOW 2 09/02/2025 Andrea Dukes MS CCC-GREY TENDER GN 1 25161005056 HC CAREGIVER TRAINING STRATEGIES & TQ 1ST 30 MINUTES 09/02/2025 Andrea Dukes MS CCC-GREY TENDER 1 [id number] HC CAREGIVER TRAINING STRATEGIES &TQ EA ADDL 15 MIN 09/02/2025 Andrea Dukes MS CCC-GREY TENDER 1 MS MARIA INES Chatterjee 09/02/2025 * MBS/VFSS/FEES - Andrea Dukes MS CCC-GREY TENDER - 09/02/2025 1:04 PM EST Images from the original note were not included. Acute Care - Speech Language Pathology Swallow Re-Assessment Basil Modified Barium Swallow Study (MBS) Patient Name: [...] INTRAOPERATIVE CHOLANGIOGRAM; Surgeon: Hermes Jaramillo MD; Location: [facility]; Service: General; Laterality: N/A; COLONOSCOPY HERNIA REPAIR GREY TENDER Recommendation and Plan Recommended discharge disposition is based on the functional assessment performed by PT/OT/Speech therapy (as applicable) and may not reflect the medical necessity determined by your provider or services covered by an individual patient's insurance plan or patient resource. GREY TENDER Swallowing Diagnosis: mild, oral dysphagia, mod-severe, pharyngeal dysphagia (09/02/251099) GREY TENDER Diet Recommendation: mechanical ground textures, no mixed consistencies, honey thick liquids (09/02/251099) Recommended Precautions and Strategies: no straw, small bites of food and sips of liquid, upright posture during/after eating, general aspiration precautions (09/02/251099) GREY TENDER Rec. for Method of Medication Administration: meds whole, with thick liquids, with puree (09/02/251099) Monitor for Signs of Aspiration: yes, notify GREY TENDER if any concerns (09/02/251099) Swallow Criteria for Skilled Therapeutic Interventions Met: demonstrates skilled criteria () Anticipated Discharge Disposition (GREY TENDER): inpatient rehabilitation facility (09/02/251099) Rehab Potential/Prognosis, Swallowing: good, to achieve stated therapy goals (09/02/251099) Therapy Frequency (Swallow): 5 days per week (09/02/251099) Predicted Duration Therapy Intervention (Days): 2 weeks (09/02/251099) Oral Care Recommendations: Oral Care BID/PRN, Suction toothbrush (09/02/251099) Progress: declining SWALLOW EVALUATION (Last 72 Hours) GREY TENDER Adult Swallow Evaluation Row Name 09/02/25 1100 [...] Pertinent History Of Current Problem See previous GREY TENDER notes -RS See previous GREY TENDER notes -SM See previous GREY TENDER notes. Pt has been cleared for PO [...] -- 3L -RS Eating/Swallowing Skills fed by GREY TENDER;needed assist;self-fed -RS self-fed;fed by GREY TENDER;needed assist -SM fed by staff/caregiver -RS Positioning [...] Signs of aspiration;Silent aspiration;Risks of aspiration -RS GREY TENDER Evaluation Clinical Impression GREY TENDER Swallowing Diagnosis mild;oral dysphagia;mod-severe;pharyngeal dysphagia -RS -- moderate;oral dysphagia;pharyngeal dysphagia -RS Functional Impact risk of aspiration/pneumonia -RS -- risk of aspiration/pneumonia -RS Rehab Potential/Prognosis, Swallowing good, to achieve stated therapy goals -RS -- good, to achievestated therapy goals -RS Swallow Criteria for Skilled Therapeutic Interventions Met demonstrates skilled criteria -RS -- demonstrates skilled criteria -RS GREY TENDER Treatment Clinical Impressions Treatment Assessment (GREY TENDER) -- toleration of diet;clinical signs of;aspiration - SM -- Treatment Assessment Comments (GREY TENDER) -- Pt requesting thin liquids. Explained justification of thickened liquids -SM -- Daily Summary of Progress (GREY TENDER) -- progress toward functional goals is good -SM -- Plan for Continued Treatment (GREY TENDER) -- continue treatment per plan of care -SM -- Care Plan Review -- evaluation/treatment results reviewed;patient/other agree to care plan -SM -- Recommendations Therapy Frequency (Swallow) 5 days per week -RS 5 days per week -SM 5 days per week -RS Predicted Duration Therapy Intervention (Days) 2 weeks -RS 2 weeks -SM 2 weeks -RS GREY TENDER Diet Recommendation mechanical ground textures;no mixed consistencies;honey [...] toothbrush -SM Oral Care BID/PRN;Suction toothbrush -RS GREY TENDER Rec. for Method of Medication Administration meds whole;with thick liquids;with puree -RS meds whole;with thick liquids -SM meds whole;with thick liquids;meds via alternate route -RS Monitor for Signs of Aspiration yes;notify GREY TENDER if any concerns -RS yes;notify GREY TENDER if any concerns -SM yes;notify GREY TENDER if any concerns -RS Anticipated Discharge Disposition (GREY TENDER) inpatient rehabilitation facility -RS inpatient rehabilitation facility - inpatient rehabilitation facility -RS User Jung (r) = Recorded By, (t) = Taken By, (c) = Cosigned By Initials Name Effective Dates RS Andrea Dukes MS CCC-GREY TENDER 07/03/23 - Nora Weiner MS CF-GREY TENDER 03/24/25 - EDUCATION The patient has been educated in the following areas: Dysphagia (Swallowing Impairment) Modified Diet Instruction. GREY TENDER GOALS Row Name 09/02/25 1100 09/01/25 1530 08/31/25 0815 (LTG) Patient will demonstrate functional swallow for Diet Texture (Demonstrate functional swallow) regular textures -RS regular textures -SM regular textures -RS Liquid viscosity (Demonstrate functional swallow) thin liquids -RS thin liquids -SM thin liquids -RS Herreid (Demonstrate functional swallow) independently (over 90% accuracy) [...] signs of distress;with adequate oral prep/transit/clearance -RS Herreid (Tolerate trials) with minimal cues (75-90% accuracy) -RS with minimal cues (75-90% accuracy) -SM with minimal cues (75-90% accuracy) -RS Time Frame (Tolerate trials) 1 week -RS 1 week -SM 1 week -RS Progress/Outcomes (Tolerate trials) goal revised this date -RS goal revised this date -SM new goal -RS Comment (Tolerate trials) -- Upgraded to [facility] solids -SM -- (STG) Patient will tolerate [...] signs of distress;with adequate oral prep/transit/clearance -RS Herreid (Tolerate therapeutic trials) with minimal cues (75-90% [...] w/ solid, but OK to upgrade to [facility] grnd and monitor tolerance -SM -- (STG) Lingual Strengthening Goal 1 (GREY TENDER) Activity (Lingual Strengthening Goal 1, GREY TENDER) increase tongue back strength -RS increase tongue backstrength -SM increase tongue back strength -RS Increase Tongue Back Strength lingual resistance exercises -RS lingual resistance exercises -SM lingual resistance exercises -RS Herreid/Accuracy (Lingual Strengthening Goal 1, GREY TENDER) with minimal cues (75- 90% accuracy) -RS with minimal cues (75-90% accuracy) -SM with minimal cues (75- 90% accuracy) -RS Time Frame (Lingual Strengthening Goal 1, GREY TENDER) 1 week -RS 1 week -SM 1 week -RS Progress/Outcomes (Lingual Strengthening Goal 1, GREY TENDER) goal ongoing -RS continuing progress toward goal -SM new goal -RS (STG) Pharyngeal Strengthening Exercise Goal 1 (GREY TENDER) Activity (Pharyngeal Strengthening Goal 1, GREY TENDER) increase timing;increase superior movement of the hyolaryngeal [...] Retraction mike -RS mike -SM mike -RS Herreid/Accuracy (Pharyngeal Strengthening Goal 1, GREY TENDER) with minimal cues (75-90% accuracy) -RS with minimal cues (75-90% accuracy) -SM with minimal cues (75-90% accuracy) -RS Time Frame (Pharyngeal Strengthening Goal 1, GREY TENDER) 1 week -RS 1 week -SM 1 week -RS Progress/Outcomes (Pharyngeal Strengthening Goal 1, GREY TENDER) goal ongoing -RS continuing progress toward goal -SM new goal -RS Comment (Pharyngeal Strengthening Goal 1, GREY TENDER) -- Demo'd all and left at bedside - -- User Jung (r) = Recorded By, (t) = Taken By, (c) = Cosigned By Initials Name Provider Type RS Andrea Dukes MS CCC-GREY TENDER Speech and Language Pathologist Nora Weiner MS CF-GREY TENDER Speech and Language Pathologist Time Calculation: Time Calculation- GREY TENDER Row Name 09/02/25 1302 Time Calculation- GREY TENDER GREY TENDER Start Time 1100 -RS GREY TENDER Received On 09/02/25 -RS Untimed Charges 83231-LF Motion Fluoro Eval Swallow Minutes 61 -RS Total Minutes Untimed Charges Total Minutes 61 -RS Total Minutes 61 -RS User Jung (r) = Recorded By, (t) = Taken By, (c) = Cosigned By Initials Name Provider Type RS Andrea Dukes MS CCC-GREY TENDER Speech and Language Pathologist Therapy Charges for Today Code Description Service Date Service Provider Modifiers Qty [id number] ST MOTION FLUORO EVAL SWALLOW 4 09/02/2025 Andrea Dukes MS CCC- GREY TENDER GN 1 Andrea Dukes MS CCC-GREY TENDER 09/02/2025 * Case Management/Social Work - Daryl Schwab RN - 09/02/2025 12:36 PM EST Continued Stay Note WILTON Gracia Patient Name: Loc Thurman Today's Date: 09/02/2025 Admit Date: 08/27/2025 Plan: rehab [facility] Discharge Plan Row Name 09/02/25 1231 Plan Plan rehab [facility] Patient/Family in Agreement with Plan yes Plan Comments Discussed in MDR, speech f/u today. PT/OT today. Per OR notes, will f/u on Friday. I updated Ella @ [facility] in [place], [place] that OR is following up w/him on Friday so d/c will be early next week. Son was interested in cost of transportation to [facility], I called [employer] @ [place] wheelchair van is base of $125 plue $5 each mile. Son stated that either he or may need wheelchair transport and if that is the cost it is what it is. I will fax updated notes to Ella from today to [phone] and I will f/u w/her onay her contact number is [phone]. DC plan is [facility] may need wheelchair van transportation vs son [...] INTRAOPERATIVE CHOLANGIOGRAM; Surgeon: Hermes Jaramillo MD; Location: [facility]; Service: General; Laterality: N/A; COLONOSCOPY HERNIA REPAIR [...] Type LM Rhianna Tilley, PT Physical Therapist Mobility Row Name 09/02/25 1143 Bed Mobility Comment, (Bed Mobility) Up in chair upon entering room. With MT going for MBS at end of session. -LM Row Name 09/02/25 1143 Sit-Stand Transfer Sit-Stand Herreid (Transfers) minimum assist (75% patient effort);1 person assist;verbal cues -LM Assistive Device (Sit-Stand Transfers) walker, front-wheeled -LM Comment, (Sit-Stand Transfer) Vc's for hand placement. Increased time/effort needed. -LM Row Name 09/02/25 1143 Gait/Stairs (Locomotion) Herreid Level (Gait) minimum assist (75% patient effort);1 [...] Provider Type Rhianna Montano PT Physical Therapist Outcome Measures Row Name [...] Provider Type Patsy Molina OT Occupational Therapist Rhianna Montano PT Physical Therapist Physical Therapy Education Title: PT OT GREY TENDER Therapies (In Progress) Topic: Physical Therapy (In [...] Re-Cert Due Date 09/09/25 -LM Timed Charges 55022 - PT Therapeutic Exercise Minutes 16 -LM 21611 - Gait Training Minutes 10 -LM Total Minutes Timed Charges Total Minutes 26 -LM Total Minutes 26 -LM User Jung (r) = Recorded By, (t) = Taken By, (c) = Cosigned By Initials Name Provider Type LM Rhianna Tilley, PT Physical Therapist Therapy Charges for Today Code Description Service Date Service Provider Modifiers Qty [id number] HC GAIT TRAINING EA 15 MIN 09/02/2025 Rhianna Tilley, PT GP 1 [id number] PT THER PROC EA 15 MIN 09/02/2025 Rhianna Tilley, PT GP 1 PT G-Codes Outcome Measure Options: AM-PAC 6 Clicks Basic Mobility (PT) AM-PAC 6 Clicks Score (PT): 15 AM-PAC 6 Clicks Score (OT): 13 PT Discharge Summary Anticipated Discharge Disposition (PT): inpatient rehabilitation facility Rhianna Tilley, PT 09/02/2025 * Therapy Treatment Note - [...] INTRAOPERATIVE CHOLANGIOGRAM; Surgeon: Hermes Jaramillo MD; Location: [facility]; Service: General; Laterality: N/A; COLONOSCOPY HERNIA REPAIR General Information Row Name 09/02/2557 OT Time and Intention Document Type therapy note (daily note) -AC Mode of Treatment occupational therapy -AC Row Name 09/02/2570 General Information Patient Profile Reviewed yes -AC Existing Precautions/Restrictions fall abdominal incision, anxiety -AC Barriers to Rehab medically complex;previous functional deficit -AC Row Name 09/02/2592 Cognition Orientation Status (Cognition) oriented x 3 -AC Row Name 09/02/2516 Safety Issues/Impairments Affecting Functional Mobility Safety Issues [...] Bed Mobility Bed Mobility supine-sit - Supine-Sit Herreid (Bed Mobility) moderate assist (50% patient effort);verbal [...] - Row Name 09/02/25842 Bed-Chair Transfer Bed-Chair Herreid (Transfers) verbal cues;minimum assist (75% patient effort) - Assistive Device (Bed-Chair Transfers) walker, front-wheeled - Comment, (Bed-Chair Transfer) increased time and effort, tremulous - Row Name 09/02/25842 Sit-Stand Transfer Sit-Stand Herreid (Transfers) minimum assist (75% patient effort);verbal cues - Assistive Device (Sit-Stand Transfers) walker, front-wheeled - Comment, (Sit-Stand Transfer) VCs for hand placement and to place both feet in walker - Row Name 09/02/25842 Toilet Transfer Herreid Level (Toilet Transfer) minimum assist (75% patient [...] Name 09/02/25 0843 Lower Body Dressing Assessment/Training Herreid Level (Lower Body Dressing) don;socks;dependent (less than 25% patient effort) - Position (Lower Body Dressing) supine - Row Name 09/02/25 0843 Grooming Assessment/Training Herreid Level (Grooming) hair care, combing/brushing;oral care regimen;wash face, hands;standby assist -AC Position (Grooming) edge of bed sitting - Comment, (Grooming) bed pushed up to sink for grooming per pt request - Row Name 09/02/25 0843 Toileting Assessment/Training Herreid Level (Toileting) adjust/manage clothing;perform perineal hygiene;maximum assist (25% patient effort) - Assistive Devices (Toileting) commode, bedside without drop arms -AC Position (Toileting) supported standing - User Jung (r) = Recorded By, (t) = Taken By, (c) = Cosigned By Initials Name Provider Type Patsy Molina OT Occupational Therapist Obj/Interventions Row Name 09/02/25 [...] Provider Type Patsy Molina OT Occupational Therapist Goals/Plan No documentation. Clinical Impression Row Name 09/02/25 0819 Pain Assessment Pretreatment Pain Rating 0/10 - no pain - Posttreatment Pain Rating 0/10 - no pain - Row Name 09/02/25 0857 Plan of Care Review Plan of Care Reviewed With patient -AC Progress improving -AC Outcome Evaluation Pt progressed from mod A [...] Position Sitting -AC Post Patient Position Sitting - Row Name 09/02/25 0849 Positioning and Restraints [...] Provider Type Patsy Molina, OT Occupational Therapist Occupational Therapy Education Title: PT OT GREY TENDER Therapies (In Progress) Topic: Occupational Therapy (In [...] Re-Cert Due Date 09/09/25 -AC Timed Charges 26182 - OT Therapeutic Activity Minutes 15 -AC 31884 - OT Self Care/Mgmt Minutes 40 -AC Total Minutes Timed Charges Total Minutes 55 -AC Total Minutes 55 -AC User Jung (r) = Recorded By, (t) = Taken By, (c) = Cosigned By Initials Name Provider Type AC Patsy Abernathy OT Occupational Therapist Therapy Charges for Today Code Description Service Date Service Provider Modifiers Qty 88227967172 OT THERAPEUTIC ACT EA 15 MIN 09/02/2025 Patsy Abernathy OT GO 1 [id number] OT SELF CARE/MGMT/TRAIN EA 15 MIN 09/02/2025 Patsy Abernathy OT GO 3 Patsy Abernathy OT 09/02/2025 * Therapy Treatment Note - Nora Montano MS CF-GREY TENDER - 09/01/2025 4:11 PM EST Images from the original note were not included. Acute Care - Speech Language Pathology Swallow Treatment Note [facility] Patient Name: Loc Thurman : 1940 [...] INTRAOPERATIVE CHOLANGIOGRAM; Surgeon: Hermes Jaramillo MD; Location: [facility]; Service: General; Laterality: N/A; COLONOSCOPY HERNIA REPAIR GREY TENDER Recommendation and Plan Recommended discharge disposition is based on the functional assessment performed by PT/OT/Speech therapy (as applicable) and may not reflect the medical necessity determined by your provider or services covered by an individual patient's insurance plan or patient resource. GREY TENDER Diet Recommendation: mechanical ground textures, nectar thick liquids, ice chips between meals after oral care, with supervision (09/01/251529) Recommended Precautions and Strategies: upright posture during/after eating, general aspiration precautions (09/01/251529) GREY TENDER Rec. for Method of Medication Administration: meds whole, with thick liquids (09/01/251529) Monitor for Signs of Aspiration: yes, notify GREY TENDER if any concerns (09/01/251529) Recommended Diagnostics: reassess via FEES (09/01/251529) Anticipated Discharge Disposition (GREY TENDER): inpatient rehabilitation facility (09/01/251529) Therapy Frequency (Swallow): 5 days per week (09/01/251529) Predicted Duration Therapy Intervention (Days): 2 weeks (09/01/251529) Oral Care Recommendations: Oral Care BID/PRN, Suction toothbrush (09/01/251529) Daily Summary of Progress (GREY TENDER): progress toward functional goals is good (09/01/251529) Treatment Assessment (GREY TENDER): toleration of diet, clinical signs of, aspiration (09/01/251529) Treatment Assessment Comments (GREY TENDER): Pt requesting thin liquids. Explained justification of thickened liquids (09/01/251529) Plan for Continued Treatment (GREY TENDER): continue treatment per plan of care (09/01/251529) SWALLOW EVALUATION (Last 72 Hours) GREY TENDER Adult Swallow Evaluation Row Name 09/01/25152908/31/25 0815 [...] Pertinent History Of Current Problem See previous GREY TENDER notes -SM See previous GREY TENDER notes. Pt has beencleared for PO diet [...] 3L -RS -- Eating/Swallowing Skills self-fed;fed by GREY TENDER;needed assist - fed by staff/caregiver -RS self-fed;fed by GREY TENDER -AC (r) IG (t) AC (c) Positioning [...] -- Secretion Rating Scale (Steven et al. 1995) -- 2- secretions initially outside the vestibule [...] of aspiration;Silent aspiration;Risks of aspiration -RS -- GREY TENDER Evaluation Clinical Impression GREY TENDER Swallowing Diagnosis -- moderate;oral dysphagia;pharyngeal dysphagia -RS [...] criteria -AC (r) IG (t) AC (c) GREY TENDER Treatment Clinical Impressions Treatment Assessment (GREY TENDER) toleration of diet;clinical signs of;aspiration -SM -- -- Treatment Assessment Comments (GREY TENDER) Pt requesting thin liquids. Explained justification of thickened liquids -SM -- -- Daily Summary of Progress (GREY TENDER) progress toward functional goals is good -SM -- -- Plan for Continued Treatment (GREY TENDER) continue treatment per plan of care -SM -- -- Care Plan Review evaluation/treatment results reviewed;patient/other agree to care plan -SM -- -- Recommendations Therapy Frequency (Swallow) 5 days per week -SM 5 days per week -RS -- Predicted Duration Therapy Intervention (Days) 2 weeks - 2 weeks -RS 2 weeks - AC (r) IG (t) AC (c) GREY TENDER Diet Recommendation mechanical ground textures;nectar thick liquids;ice [...] toothbrush -AC (r) IG (t) AC (c) GREY TENDER Rec. for Method of Medication Administration meds whole;with thick liquids - meds whole;with thick liquids;meds via alternate route -RS meds via alternate route -AC (r) IG (t) AC (c) Monitor for Signs of Aspiration yes;notify GREY TENDER if any concerns - yes;notify GREY TENDER if any concerns - yes;notify GREY TENDER if any concerns -AC (r) IG (t) AC (c) Anticipated Discharge Disposition (GREY TENDER) inpatient rehabilitation facility - inpatient rehabilitation facility -RS inpatient rehabilitation facility -AC (r) IG (t) AC (c) User Jung (r) = Recorded By, (t) = Taken By, (c) = Cosigned By Initials Name Effective Dates AC Lea Echols, MS CCC-GREY TENDER 11/22/22 - RS Andrea Dukes, MS CCC-GREY TENDER 07/03/23 - Nora Montano, MS CF-GREY TENDER 03/24/25 - Alma Aiken, Speech Therapy Student 06/08/25 - EDUCATION The patient has been educated in the following areas: Dysphagia (Swallowing Impairment) Oral Care/Hydration Modified Diet Instruction. GREY TENDER GOALS Row Name 09/01/25 1530 08/31/25 0815 (LTG) Patient will demonstrate functional swallow for Diet Texture (Demonstrate functional swallow) regular textures -SM regular textures -RS Liquid viscosity (Demonstrate functional swallow) thin liquids -SM thin liquids -RS Herreid (Demonstrate functional swallow) independently (over 90% accuracy) [...] signs of distress;with adequate oral prep/transit/clearance -RS Herreid (Tolerate trials) with minimal cues (75-90% accuracy) -SM with minimal cues (75-90% accuracy) -RS Time Frame (Tolerate trials) 1 week -SM 1 week -RS Progress/Outcomes (Tolerate trials) goal revised this date - new goal -RS Comment (Tolerate trials) Upgraded to [facility] biloxid solids -SM -- (STG) Patient will tolerate therapeutic trials of Consistencies Trialed (Tolerate therapeutic trials) soft to chew (chopped) textures;nectar/ mildly thick liquids -SM soft to chew (chopped) textures;nectar/ mildly thick liquids -RS Desired Outcome (Tolerate therapeutic trials) without signs/symptoms of aspiration;without signs ofdistress;with adequate oral prep/transit/clearance - SM without signs/symptoms of aspiration;withoutsigns of distress;with adequate oral prep/transit/clearance -RS Herreid (Tolerate therapeutic trials) with minimal cues (75-90% accuracy) - SM with minimal cues (75-90% accuracy) -RS Time Frame (Tolerate therapeutic trials) 1 week -SM 1 week -RS Progress/Outcomes (Tolerate therapeutic trials) continuing progress toward goal - new goal -RS Comment (Tolerate therapeutic trials) Per RN, pt requesting thin liquids all day. Assessed ice and sips of thin water at bedside, pt consistently demonstrating TC. No s/sxs w/ nectar or solid trials.Oral concerns w/ solid, but OK to upgrade to [facility] grnd and monitor tolerance -SM -- (STG) Lingual Strengthening Goal 1 (GREY TENDER) Activity (Lingual Strengthening Goal 1, GREY TENDER) increase tongue back strength -SM increase tongue backstrength -RS Increase Tongue Back Strength lingual resistance exercises -SM lingual resistance exercises -RS Herreid/Accuracy (Lingual Strengthening Goal 1, GREY TENDER) with minimal cues (75- 90% accuracy) -SM with minimal cues (75-90% accuracy) -RS Time Frame (Lingual Strengthening Goal 1, GREY TENDER) 1 week -SM 1 week -RS Progress/Outcomes (Lingual Strengthening Goal 1, GREY TENDER) continuing progress toward goal -SM new goal -RS (STG) Pharyngeal Strengthening Exercise Goal 1 (GREY TENDER) Activity (Pharyngeal Strengthening Goal 1, GREY TENDER) increase timing;increase superior movement of the hyolaryngeal [...] Tongue Base Retraction mike -SM mike -RS Herreid/Accuracy (Pharyngeal Strengthening Goal 1, GREY TENDER) with minimal cues (75-90% accuracy) -SM with minimal cues (75-90% accuracy) -RS Time Frame (Pharyngeal Strengthening Goal 1, GREY TENDER) 1 week -SM 1 week -RS Progress/Outcomes (Pharyngeal Strengthening Goal 1, GREY TENDER) continuing progress toward goal -SM new goal -RS Comment (Pharyngeal Strengthening Goal 1, GREY TENDER) Demo'd all and left at bedside - -- User Jung (r) = Recorded By, (t) = Taken By, (c) = Cosigned By Initials Name Provider Type Andrea Mitchell MS CCC-GREY TENDER Speech and Language Pathologist Nora Weiner MS CF-GREY TENDER Speech and Language Pathologist Time Calculation: Time Calculation- GREY TENDER Row Name 09/01/25 1611 Time Calculation- GREY TENDER GREY TENDER Start Time 1530 -SM GREY TENDER Received On 09/01/25 -SM Untimed Charges 96820-OY Treatment Swallow Minutes 38 -SM Total Minutes Untimed Charges Total Minutes 38 -SM Total Minutes 38 -SM User Jung (r) = Recorded By, (t) = Taken By, (c) = Cosigned By Initials Name Provider Type Nora Weiner MS CF-GREY TENDER Speech and Language Pathologist Therapy Charges for Today Code Description Service Date Service Provider Modifiers Qty [id number] HC ST TREATMENT SWALLOW 3 09/01/2025 Nora Montano MS CF- GREY TENDER GN 1 MS KATHERYN Jarvis 09/01/2025 * Case Management/Social Work - Daryl Schwab RN - 09/01/2025 2:20 PM EST Continued Stay Note [facility] Patient Name: Loc Thurman Today's Date: 09/01/2025 Admit Date: 08/27/2025 Plan: rehab Discharge Plan Row Name 09/01/25 1416 Plan Plan rehab Patient/Family in Agreement with Plan yes Plan Comments I had a call from Ella Looxcie [facility] in [place], interested in Mr. Thurman for rehab. Her contact is [phone]. She is going to reach out to [...] explained that a referral was faxed to [facility], which son stated was very close to his home. I printed a patient choice list for them to review w/acute/Skilled facilities, after discussion, son w/patient's permissions requested a referral to be sent to [facility] in [place], [place]. I calledsarah spoke w/Alejandra and faxed a referral to [phone]. CM will continue to follow and assist w/dc planning. Final Discharge Disposition Code 62 - inpatient rehab facility Discharge Codes No documentation. Daryl Schwab RN * Case Management/Social Work - Daryl Schwab RN - 09/01/2025 12:42 PM EST Continued Stay Note [facility] Patient Name: Loc Thurman Today's Date: [...] explained that a referral was faxed to [facility], which son stated was very close to his home. I printed a patient choice list for them to review w/acute/Skilled facilities, after discussion, son w/patient's permissions requested a referral to be sent to [facility] in [place], [place]. I calledsarah spoke w/Alejandra and faxed a referral to [phone]. CM will continue to follow and assist [...] INTRAOPERATIVE CHOLANGIOGRAM; Surgeon: Hermes Jaramillo MD; Location: [facility]; Service: General; Laterality: N/A; COLONOSCOPY HERNIA REPAIR General Information Row Name 08/31/25 1338 OT Time and Intention Document Type therapy note (daily note) -AN Mode of Treatment occupational therapy -AN Row Name 08/31/25 1890 General Information Patient Profile Reviewed yes -AN Existing Precautions/Restrictions fall;oxygen therapy device and L/min;other (see comments) abdominal incision; confusion; NG -AN Barriers to Rehab medically complex;previous functional deficit;cognitive status -AN Row Name 08/31/25 9598 Cognition Orientation Status (Cognition) oriented x 3 -AN Row Name 08/31/25 133 Safety Issues/Impairments Affecting Functional Mobility Safety Issues [...] 08/31/25 1339 Bed Mobility Comment, (Bed Mobility) UI upon arrival -AN User Jung (r) = [...] Student Occupational Therapy Education Title: PT OT GREY TENDER Therapies (In Progress) Topic: Occupational Therapy (Done) [...] OT Received On 08/31/25 -AN Timed Charges 46172 - OT Therapeutic Exercise Minutes 12 -AN Total Minutes Timed Charges Total Minutes 12 -AN Total Minutes 12 -AN User Jung (r) = Recorded By, (t) = Taken By, (c) = Cosigned By Initials Name Provider Type AN Radha Smith OT Occupational Therapist Therapy Charges for Today Code Description Service Date Service Provider Modifiers Qty [id number] HC OT THER PROC EA 15 MIN 08/31/2025 Radha Smith OT GO 1 Radha Smith OT 08/31/2025 * MBS/VFSS/FEES - Andrea Dukes MS CCC-GREY TENDER - 08/31/2025 9:54 AM EST Images from the original note were not included. Acute Care - Speech Language Pathology Swallow Re-Evaluation [facility] Fiberoptic Endoscopic Evaluation of Swallowing (FEES) [...] INTRAOPERATIVE CHOLANGIOGRAM; Surgeon: Hermes Jaramillo MD; Location: [facility]; Service: General; Laterality: N/A; COLONOSCOPY HERNIA REPAIR GREY TENDER Recommendation and Plan Recommended discharge disposition is based on the functional assessment performed by PT/OT/Speech therapy (as applicable) and may not reflect the medical necessity determined by your provider or services covered by an individual patient's insurance plan or patient resource. GREY TENDER Swallowing Diagnosis: moderate, oral dysphagia, pharyngeal dysphagia (08/31/25814) GREY TENDER Diet Recommendation: puree, nectar thick liquids, other (see comments) (PO diet at discretion of surgeon only) (08/31/25814) Recommended Precautions and Strategies: upright posture during/after eating, general aspiration precautions (08/31/25814) GREY TENDER Rec. for Method of Medication Administration: meds whole, with thick liquids, meds via alternate route (08/31/25814) Monitor for Signs of Aspiration: yes, notify GREY TENDER if any concerns (08/31/25814) Swallow Criteria for Skilled Therapeutic Interventions Met: demonstrates skilled criteria () Anticipated Discharge Disposition (GREY TENDER): inpatient rehabilitation facility (08/31/25814) Rehab Potential/Prognosis, Swallowing: good, to achieve stated therapy goals (08/31/25814) Therapy Frequency (Swallow): 5 days per week (08/31/25814) Predicted Duration Therapy Intervention (Days): 2 weeks (08/31/25814) Oral Care Recommendations: Oral Care BID/PRN, Suction toothbrush (08/31/25814) Progress: improving SWALLOW EVALUATION (Last 72 Hours) GREY TENDER Adult Swallow Evaluation Row Name 08/31/2581408/30/25 1005 [...] Pertinent History Of Current Problem See previous GREY TENDER notes. Pt has been cleared for PO [...] Skills fed by staff/caregiver -RS self-fed;fed by GREY TENDER -AC (r) IG (t) AC (c) Positioning [...] of aspiration;Silent aspiration;Risks of aspiration -RS -- GREY TENDER Evaluation Clinical Impression GREY TENDER Swallowing Diagnosis moderate;oral dysphagia;pharyngeal dysphagia -RS suspected [...] weeks -AC (r) IG (t) AC (c) GREY TENDER Diet Recommendation puree;nectar thick liquids;other (see comments) [...] toothbrush -AC (r) IG (t) AC (c) GREY TENDER Rec. for Method of Medication Administration meds whole;with thick liquids;meds via alternate route -RS meds via alternate route -AC (r) IG (t) AC (c) Monitor for Signs of Aspiration yes;notify GREY TENDER if any concerns -RS yes;notify GREY TENDER if any concerns -AC (r) IG (t) AC (c) Anticipated Discharge Disposition (GREY TENDER) inpatient rehabilitation facility -RS inpatient rehabilitation facility -AC (r) IG (t) AC (c) User Jung (r) = Recorded By, (t) = Taken By, (c) = Cosigned By Initials Name Effective Dates Lea May, MS [facility]-GREY TENDER 11/22/22 - Andrea Mitchell MS [facility]-GREY TENDER 07/03/23 - Alma Arshad, Speech Therapy Student 06/08/25 - EDUCATION The patient has been educated in the following areas: Dysphagia (Swallowing Impairment) Modified Diet Instruction. GREY TENDER GOALS Row Name 08/31/25 0815 (LTG) Patient will demonstrate functional swallow for Diet Texture (Demonstrate functional swallow) regular textures -RS Liquid viscosity (Demonstrate functional swallow) thin liquids -RS Herreid (Demonstrate functional swallow) independently (over 90% accuracy) -RS Time Frame (Demonstrate functional swallow) 2 weeks -RS Progress/Outcomes (Demonstrate functional swallow) new goal -RS (STG) Patient will tolerate trials of Consistencies Trialed (Tolerate trials) pureed textures;nectar/ mildly thick liquids -RS Desired Outcome (Tolerate trials) without signs/symptoms of aspiration;without signs of distress;with adequate oral prep/transit/clearance -RS Herreid (Tolerate trials) with minimal cues (75-90% accuracy) -RS Time Frame (Tolerate trials) 1 week -RS Progress/Outcomes (Tolerate trials) new goal -RS (STG) Patient will tolerate therapeutic trials of Consistencies Trialed (Tolerate therapeutic trials) soft to chew (chopped) textures;nectar/ mildly thick liquids -RS Desired Outcome (Tolerate therapeutic trials) without signs/symptoms of aspiration;without signs ofdistress;with adequate oral prep/transit/clearance -RS Herreid (Tolerate therapeutic trials) with minimal cues (75-90% accuracy) -RS Time Frame (Tolerate therapeutic trials) 1 week -RS Progress/Outcomes (Tolerate therapeutic trials) new goal -RS (STG) Lingual Strengthening Goal 1 (GREY TENDER) Activity (Lingual Strengthening Goal 1, GREY TENDER) increase tongue back strength -RS Increase Tongue Back Strength lingual resistance exercises -RS Herreid/Accuracy (Lingual Strengthening Goal 1, GREY TENDER) with minimal cues (75- 90% accuracy) -RS Time Frame (Lingual Strengthening Goal 1, GREY TENDER) 1 week -RS Progress/Outcomes (Lingual Strengthening Goal 1, GREY TENDER) new goal -RS (STG) Pharyngeal Strengthening Exercise Goal 1 (GREY TENDER) Activity (Pharyngeal Strengthening Goal 1, GREY TENDER) increase timing;increase superior movement of the hyolaryngeal [...] -RS Increase Tongue Base Retraction mike -RS Herreid/Accuracy (Pharyngeal Strengthening Goal 1, GREY TENDER) with minimal cues (75-90% accuracy) -RS Time Frame (Pharyngeal Strengthening Goal 1, GREY TENDER) 1 week -RS Progress/Outcomes (Pharyngeal Strengthening Goal 1, GREY TENDER) new goal -RS User Jung (r) = Recorded By, (t) = Taken By, (c) = Cosigned By Initials Name Provider Type RS Andrea Dukes MS CCC-GREY TENDER Speech and Language Pathologist Time Calculation: Time Calculation- GREY TENDER Row Name 08/31/25 0953 Time Calculation- GREY TENDER GREY TENDER Start Time 0815 -RS GREY TENDER Received On 08/31/25 -RS Untimed Charges 69303-[id number] Fiberoptic Endo Eval Swallow Minutes 105 -RS Total Minutes Untimed Charges Total Minutes 105 -RS Total Minutes 105 -RS User Jung (r) = Recorded By, (t) = Taken By, (c) = Cosigned By Initials Name Provider Type RS Andrea Dukes MS CCC-GREY TENDER Speech and Language Pathologist Therapy Charges for Today Code Description Service Date Service Provider Modifiers Qty [id number] HC ST FIBEROPTIC ENDO EVAL SWALL 7 08/31/2025 Andrea Dukes MS CCC- ISAIAH GN 1 MS MARIA INES Chatterjee 08/31/2025 [...] INTRAOPERATIVE CHOLANGIOGRAM; Surgeon: Hermes Jaramillo MD; Location: [facility]; Service: General; Laterality: N/A; COLONOSCOPY HERNIA REPAIR [...] By Initials Name Provider Type Tee Taylor PT Student PT Student Mobility Row Name 08/31/25 1027 Bed Mobility Bed Mobility supine-sit (P) -SULAIMAN Supine-Sit Herreid (Bed Mobility) moderate assist (50% patient effort);2 person assist;verbal cues (P) -SULAIMAN Assistive Device (Bed Mobility) bed rails;head of bed elevated;repositioning sheet (P) -SULAIMAN Comment, (Bed Mobility) VCs for sequencing, assist at trunk and BLEs, increased time and effort, R lateral lean sitting EOB (P) -SULAIMAN Row Name 08/31/25 1027 Bed-Chair Transfer Bed-Chair Herreid (Transfers) moderate assist (50% patient effort);2 person assist;verbal cues(P) -SULAIMAN Assistive Device (Bed-Chair Transfers) other (see comments) (P) BUE support -SULAIMAN Comment, (Bed-Chair Transfer) VCs for sequencing (P) -SULAIMAN Row Name 08/31/25 1027 Sit-Stand Transfer Sit-Stand Herreid (Transfers) minimum assist (75% patient effort);2 person assist;verbal cues (P) -SULAIMAN Assistive Device (Sit-Stand Transfers) other (see comments) (P) B UE support -SULAIMAN Comment, (Sit-Stand Transfer) VCs for upright posture (P) -SULAIMAN Row Name 08/31/25 1027 Gait/Stairs (Locomotion) Herreid Level (Gait) moderate assist (50% patient effort);2 person assist;verbal cues (P) -SULAIMAN Assistive Device (Gait) other (see comments) (P) B POLARITY TESTER -SULAIMAN Distance in Feet (Gait) 16 (P) [...] Type SULAIMANTee Basilio, PT Student PT Student Goals/Plan No documentation. [...] IPPT. Pt amb 16 ft w/ B POLARITY TESTER modAx2, further mobility limited by weakness and [...] Student Physical Therapy Education Title: PT OT GREY TENDER Therapies (In Progress) Topic: Physical Therapy (In [...] Physical Therapist PT SULAIMAN 06/03/25 - Tee Marina PT Student PT Student PT PT Recommendation [...] Received On 08/31/25 (P) -SULAIMAN Timed Charges 21911 - PT Therapeutic Activity Minutes 24 (P) -SULAIMAN Total Minutes Timed Charges Total Minutes 24 (P) -SULAIMAN Total Minutes 24 (P) -SULAIMAN User Jung (r) = Recorded By, (t) = Taken By, (c) = Cosigned By Initials Name Provider Type SULAIMAN Tee Marina, PT Student PT Student Therapy Charges for Today Code Description Service Date Service Provider Modifiers Qty [id number] HC PT THERAPEUTIC ACT EA 15 MIN 08/31/2025 Tee Marina, PT Student GP 2 PT G-Codes Outcome Measure Options: (P) AM-PAC 6 Clicks Basic Mobility (PT) AM-PAC 6 Clicks Score (PT): (P) 11 AM-PAC 6 Clicks Score (OT): 12 PT Discharge Summary Anticipated Discharge Disposition (PT): (P) inpatient rehabilitation facility Tee Marina PT Student 08/31/2025 Cosigned by Flora Galvan PT at 08/31/2025 1:04 PM EST Associated attestation - Flora Galvan PT - 08/31/2025 1:04 PM EST Ellen Galvan, PT 08/31/2025 13:04 EST * Case Management/Social Work - Félix Azul, RN - 08/31/2025 8:32 AM EST Continued Stay Note [facility] Patient Name: Loc Thurman Today's Date: 08/31/2025 Admit Date: 08/27/2025 Plan: [facility] Discharge Plan Row Name 08/31/25 0830 Plan Plan [facility] Patient/Family in Agreement with Plan yes Plan Comments Spoke with patient at bedside. Patient requested [facility] for rehab. CM faxed a referral to [facility]. CM will continuie to follow. Final Discharge Disposition Code 03 - half-way facility (SNF) Discharge Codes No documentation. Félix Azul RN * Therapy Evaluation - Alma Aiken, Speech Therapy Student - 08/30/2025 11:22 AM EST Images from the original note were not included. Acute Care - Speech Language Pathology Swallow Initial Evaluation [facility] Clinical Swallow Evaluation Patient Name: Loc [...] INTRAOPERATIVE CHOLANGIOGRAM; Surgeon: Hermes Jaramillo MD; Location: [facility]; Service: General; Laterality: N/A; COLONOSCOPY HERNIA REPAIR GREY TENDER Recommendation and Plan Recommended discharge disposition is based on the functional assessment performed by PT/OT/Speech therapy (as applicable) and may not reflect the medical necessity determined by your provider or services covered by an individual patient's insurance plan or patient resource. GREY TENDER Swallowing Diagnosis: (P) suspected pharyngeal dysphagia (08/30/251004) GREY TENDER Diet Recommendation: (P) NPO (08/30/251004) GREY TENDER Rec. for Method of Medication Administration: (P) meds via alternate route (08/30/251004) Monitor for Signs of Aspiration: (P) yes, notify GREY TENDER if any concerns (08/30/251004) Recommended Diagnostics: (P) FEES, other (see comments) (When medically appropriate/ cleared by surgery.) (08/30/251004) Swallow Criteria for Skilled Therapeutic Interventions Met: (P) demonstrates skilled criteria (08/30/251004) Anticipated Discharge Disposition (GREY TENDER): (P) inpatient rehabilitation facility (08/30/251004) Rehab Potential/Prognosis, Swallowing: (P) good, to achieve stated therapy goals (08/30/251004) Predicted Duration Therapy Intervention (Days): (P) 2 weeks (08/30/251004) Oral Care Recommendations: (P) Oral Care BID/PRN, Suction toothbrush (08/30/251004) SWALLOW EVALUATION (Last 72 Hours) GREY TENDER Adult Swallow Evaluation Row Name 08/30/251004 Rehab [...] cannula (P) -IG Eating/Swallowing Skills self-fed;fed by GREY TENDER (P) -IG Positioning During Eating upright 90 [...] trials okay'd by RN and (P) -IG GREY TENDER Evaluation Clinical Impression GREY TENDER Swallowing Diagnosis suspected pharyngeal dysphagia (P) -IG Functional Impact risk of aspiration/pneumonia;risk of malnutrition;risk of dehydration (P) -IG Rehab Potential/Prognosis, Swallowing good, to achieve stated therapy goals (P) -IG Swallow Criteria for Skilled Therapeutic Interventions Met demonstrates skilled criteria (P) -IG Recommendations Predicted Duration Therapy Intervention (Days) 2 weeks (P) -IG GREY TENDER Diet Recommendation NPO (P) -IG Recommended Diagnostics FEES;other (see comments) (P) When medically appropriate/ cleared by surgery. -IG Oral Care Recommendations Oral Care BID/PRN;Suction toothbrush (P) -IG GREY TENDER Rec. for Method of Medication Administration meds via alternate route (P) -IG Monitor for Signs of Aspiration yes;notify GREY TENDER if any concerns (P) -IG Anticipated Discharge Disposition (GREY TENDER) inpatient rehabilitation facility (P) -IG User Jung (r) = Recorded By, (t) = Taken By, (c) = Cosigned By Initials Name Effective Dates IG Alma Aiken Speech Therapy Student 06/08/25 - EDUCATION The patient has been educated in the following areas: Dysphagia (Swallowing Impairment) Oral Care/Hydration. Time Calculation: Time Calculation- GREY TENDER Row Name 08/30/25 1121 Time Calculation- GREY TENDER GREY TENDER Start Time 1005 (P) -IG GREY TENDER Received On 08/30/25 (P) -IG Untimed Charges 24763-IH Eval Oral Pharyng Swallow Minutes 55 (P) -IG Total Minutes Untimed Charges Total Minutes 55 (P) -IG Total Minutes 55 (P) -IG User Jung (r) = Recorded By, (t) = Taken By, (c) = Cosigned By Initials Name Provider Type IG Alma Aiken Speech Therapy Student GREY TENDER Student Therapy Charges for Today Code Description Service Date Service Provider Modifiers Qty [id number] HC ST EVAL ORAL PHARYNG SWALLOW 4 08/30/2025 Alma Aiken Speech Therapy Student GN1 Mark Hawthorne Therapy Student 08/30/2025 Cosigned by Lea Echols MS CCC-GREY TENDER at 08/30/2025 11:58 AM EST Associated attestation - Lea Echols MS CCC-GREY TENDER - 08/30/2025 11:58 AM EST Lea Echols MS CCC-GREY TENDER * Case Management/Social Work - Félix Azul, RN - 08/30/2025 11:14 AM EST Continued Stay Note [place] Patient Name: Loc Thurman Today's Date: 08/30/2025 [...] INTRAOPERATIVE CHOLANGIOGRAM; Surgeon: Hermes Jaramillo MD; Location: [facility]; Service: General; Laterality: N/A; COLONOSCOPY HERNIA REPAIR General Information Row Name 08/30/25 1140 OT Time and Intention Document Type evaluation -MC Mode of Treatment occupational therapy;co-treatment - Row Name 08/30/25 1149 General Information Patient Profile Reviewed yes -MC Prior Level of Function independent:;bed mobility;transfer;all household [...] into deficits/self-awareness;safety precaution awareness;safety precaution follow-through;sequencing abilities [facility] User Jung (r) = Recorded By, (t) = Taken By, (c) = Cosigned By Initials Name Provider Type Auyr Fitzgerald OT Occupational Therapist Mobility/ADL's Row Name 08/30/25 1141 Bed Mobility Bed Mobility supine-sit - Supine-Sit Herreid (Bed Mobility) moderate assist (50% patient effort);2 [...] mod Ax2 for STS & SPT from [id number]-[id number] but req max Ax2 for SPT from [id number]. -[facility] Name 08/30/25 1141 Bed-Chair Transfer Bed-Chair Herreid (Transfers) moderate assist (50% patient effort);2 person assist;verbal cues- Assistive Device (Bed-Chair Transfers) other (see comments) BUE support -[facility] Name 08/30/25 1141 Sit-Stand Transfer Sit-Stand Herreid (Transfers) moderate assist (50% patient effort);2 person assist;verbal cues- Assistive Device (Sit-Stand Transfers) other (see comments) -[facility] Name 08/30/25 1141 Stand-Sit Transfer Stand-Sit Herreid (Transfers) moderate assist (50% patient effort);2 person assist;verbal cues- Assistive Device (Stand-Sit Transfers) other (see comments) -[facility] 08/30/25 1141 Toilet Transfer Type (Toilet Transfer) sit-stand;stand-sit;stand pivot/stand step - Herreid Level (Toilet Transfer) maximum assist (25% patient effort);2 person assist;verbal cues - Assistive Device (Toilet Transfer) commode, bedside without drop arms -[facility] Name 08/30/25 1141 Activities of Daily Living BADL Assessment/Intervention lower body dressing;upper body dressing -[facility] 08/30/25 1141 Lower Body Dressing Assessment/Training Herreid Level (Lower Body Dressing) don;socks;dependent (less than 25% patient effort) - Position (Lower Body Dressing) supine -[facility] 08/30/25 1141 Upper Body Dressing Assessment/Training Herreid Level (Upper Body Dressing) don;pajama/robe;maximum assist (25% patient effort) - Position (Upper Body Dressing) edge of bed sitting - User Jung (r) = Recorded By, (t) = Taken By, (c) = Cosigned By Initials Name Provider Type Aury Gallegos OT Occupational Therapist Obj/Interventions [facility] Name 08/30/25 1145 Sensory Assessment (Somatosensory) Sensory Assessment (Somatosensory) UE sensation intact -[facility] 08/30/25 1145 Vision Assessment/Intervention Visual Impairment/Limitations WFL -[facility] Name 08/30/25 1145 Range of Motion Comprehensive General Range of Motion bilateral upper extremity ROM WFL -[facility] 08/30/25 1145 Strength Comprehensive (MMT) General Manual Muscle Testing (MMT) Assessment upper extremity strength deficits identified - Comment, General Manual Muscle Testing (MMT) Assessment BUE grossly 4-/5 - Row Name 08/30/25 1145 Balance Balance Assessment sitting [...] Type Aury Fitzgerald OT Occupational Therapist Goals/Plan Row Name 08/30/25 1147 Transfer Goal 1 (OT) Activity/Assistive Device (Transfer Goal 1, OT) aaz-uy-myxxv/katgg-sy-eid;toilet;walker, rolling - Herreid Level/Cues Needed (Transfer Goal 1, OT) standby assist - Time Frame (Transfer Goal 1, OT) long-term goal (LTG);10 days - Progress/Outcome (Transfer Goal 1, OT) goal ongoing - Row Name 08/30/25 1147 Toileting Goal 1 (OT) Activity/Device (Toileting Goal 1, OT) adjust/manage clothing;perform perineal hygiene;commode;grabbar/safety frame - Herreid Level/Cues Needed (Toileting Goal 1, OT) standby assist - Time Frame (Toileting Goal 1, OT) short term goal (STG);5 days - Progress/Outcome (Toileting Goal 1, OT) goal ongoing -[facility] Name 08/30/25 1147 Grooming Goal 1 (OT) Activity/Device (Grooming Goal 1, OT) hair care;oral care;wash face, hands - Herreid (Grooming Goal 1, OT) standby assist - Time Frame (Grooming Goal 1, OT) building stonecutter goal (LTG);10 days - Progress/Outcome (Grooming Goal 1, OT) goal ongoing -[facility] Name 08/30/25 1147 Therapy Assessment/Plan (OT) Planned Therapy Interventions (OT) activity tolerance training;adaptive equipment training;BADL retraining;functional balance retraining;IADL retraining;occupation/activity based interventions;patient/caregiver education/training;ROM/therapeutic exercise;strengthening exercise;transfer/mobility retraining - User Jung (r) = Recorded By, (t) = Taken By, (c) = Cosigned By Initials Name Provider Type Aury Fitzgerald, OT Occupational Therapist Clinical Impression [facility] Name 08/30/25 1145 Pain Assessment Pain Location abdomen - Pain Side/Orientation generalized - Pain Management Interventions exercise or physical activity utilized;positioning techniques utilized - Response to Pain Interventions activity participation with tolerable pain - Additional Documentation Pain Scale: FACES Pre/Post-Treatment (Group) -[facility] 08/30/25 114 Pain Scale: FACES Pre/Post-Treatment Pain: FACES Scale, Pretreatment 4-->hurts little more - Posttreatment Pain Rating 4-->hurts little more -[facility] 08/30/25 1141 Plan of Care Review Plan of Care Reviewed With patient;son - Outcome Evaluation Pt's ADL independence limited d/t generalized weakness, decrease functional endurance, balance deficits, and pain. Pt would benefit from continued skilled IPOT services to address current functional deficits. Rec IRF at d/c. -[facility] Name 08/30/25 1147 Therapy Assessment/Plan (OT) Patient/Family Therapy Goal Statement (OT) Return to OF - Rehab Potential (OT) good - Criteria for Skilled Therapeutic Interventions Met (OT) yes;skilled treatment is necessary - Therapy Frequency (OT) daily - Predicted Duration of Therapy Intervention (OT) 10 days -[facility] Name 08/30/25 1149 Therapy Plan Review/Discharge Plan (OT) Anticipated Discharge Disposition (OT) inpatient rehabilitation facility -[facility] Name 08/30/25 1144 Vital Signs Pre Systolic BP Rehab 163 [...] using toilet bed currie or urinal) 1 - Putting on and taking off regular upper body clothing 2 - Taking care of personal grooming (such as [...] Therapist Occupational Therapy Education Title: PT OT GREY TENDER Therapies (In Progress) Topic: Occupational Therapy (In Progress) Point: ADL training (In Progress) Learning Progress Summary Patient Acceptance, E, NR by at 08/30/2025 1147 Point: Precautions (In Progress) Learning Progress Summary Patient Acceptance, E, NR by at 08/30/2025 1147 Point: Body mechanics (In Progress) Learning Progress Summary Patient Acceptance, E, NR by at 08/30/2025 114 User Jung Initials Effective Dates Name Provider Type [facility] 08/02/22 - Aury Fitzgerald OT Occupational Therapist [...] Time Calculation- OT OT Start Time 915 -MC OT Received On 08/30/25 - OT Goal [...] Description Service Date Service Provider Modifiers Qty [id number] OT EVAL MOD COMPLEXITY 4 08/30/2025 Aury [...] INTRAOPERATIVE CHOLANGIOGRAM; Surgeon: Hermes Jaramillo MD; Location: [facility]; Service: General; Laterality: N/A; COLONOSCOPY HERNIA REPAIR [...] PT Physical Therapist Mobility Row Name 08/30/25 436 Bed Mobility Bed Mobility supine-sit -KG Supine-Sit Herreid (Bed Mobility) moderate assist (50% patient effort);2 [...] difficulty advancing LEs. -KG Row Name 08/30/25 5446 Bed-Chair Transfer Bed-Chair Herreid (Transfers) maximum assist (25% patient effort);2 person assist;verbal cues -KG Assistive Device (Bed-Chair Transfers) other (see comments) B UE support -KG Row Name 08/30/25 8841 Sit-Stand Transfer Sit-Stand Herreid (Transfers) moderate assist (50% patient effort);2 person assist;verbal cues-KG Assistive Device (Sit-Stand Transfers) other (see comments) B UE support -KG Row Name 08/30/25 1979 Gait/Stairs (Locomotion) Herreid Level (Gait) moderate assist (50% patient effort);2 [...] Cosigned By Initials Name Provider Type Flora Finley PT Physical Therapist Obj/Interventions Row Name 08/30/25 [...] Cosigned By Initials Name Provider Type Flora Finley PT Physical Therapist Goals/Plan Row [facility] 08/30/25 133 Bed Mobility Goal 1 (PT) Activity/Assistive Device (Bed Mobility Goal 1, PT) sit to supine;supine to sit -KG Herreid Level/Cues Needed (Bed Mobility Goal 1, PT) minimum assist (75% or more patient effort) -KG Time Frame (Bed Mobility Goal 1, PT) short term goal (STG);5 days -KG Progress/Outcomes (Bed Mobility Goal 1, PT) goal ongoing -KG Row Name 08/30/25 133 Transfer Goal 1 (PT) Activity/Assistive Device (Transfer Goal 1, PT) jsf-ku-hbxkl/pvlww-mx-ruq;lia-xa-sfvlx/rhrsl-tw-hro;walker, rolling -KG Herreid Level/Cues Needed (Transfer Goal 1, PT) minimum assist (75% or more patient effort) -KG Time Frame (Transfer Goal 1, PT) long-term goal (LTG);10 days -KG Progress/Outcome (Transfer Goal 1, PT) goal ongoing -KG Row Name 08/30/25 1339 Gait Training Goal 1 (PT) Activity/Assistive Device (Gait Training Goal 1, PT) gait (walking locomotion);assistive device use;walker, rolling -KG Herreid Level (Gait Training Goal 1, PT) moderate assist (50-74% patient effort) -KG Distance (Gait Training Goal 1, PT) 50 feet -KG Time Frame (Gait Training Goal 1, PT) long-term goal (LTG);10 days -KG Progress/Outcome (Gait Training Goal 1, PT) goal ongoing -KG Row Name 08/30/25 1339 Therapy Assessment/Plan (PT) Planned Therapy Interventions (PT) balance training;bed mobility training;gait training;strengthening;transfer training -KG User Jung (r) = Recorded By, (t) = Taken By, (c) = Cosigned By Initials Name Provider Type KG Flora Galvan, PT Physical Therapist Clinical Impression Row Name 08/30/25 1338 Pain Additional Documentation Pain Scale: FACES Pre/Post-Treatment (Group) -KG Row Name 08/30/25 3042 Pain Scale: FACES Pre/Post-Treatment Pain: FACES Scale, Pretreatment 4-->hurts little more -KG Posttreatment Pain Rating 6-->hurts even more -KG Row Name 08/30/25 1365 Plan of Care Review Plan of Care Reviewed With patient -KG Outcome Evaluation PT initial evaluation completed for pt s/p cholecystectomy presenting with generalized weakness, increased SOA, impaired balance and coordination, c/o incisional pain, and decreased functional mobility. Pt required modA x2 for STS transfers and modA x2- maxA x2 to take steps frombed to chair and BSC. Pt's decreased independence warrants management supervisor care. Recommend D/C to IP rehab facility. -KG Row Name 08/30/25 4273 Therapy Assessment/Plan (PT) Patient/Family Therapy Goals Statement (PT) return to PLOF -KG Rehab Potential (PT) good -KG Criteria for Skilled Interventions Met (PT) yes;skilled treatment is necessary -KG Therapy Frequency (PT) daily -KG Predicted Duration of Therapy Intervention (PT) 10 days -KG Row Name 08/30/25 6888 Vital Signs Pre Systolic BP Rehab 163 [...] KG Flora Galvan, PT Physical Therapist Aury Gallegos OT Occupational Therapist Physical Therapy Education Title: PT OT GREY TENDER Therapies (In Progress) Topic: Physical Therapy (In [...] Progress Summary Patient Acceptance, E, NR by DION at 08/30/2025 0903 User Jung Initials Effective [...] chair and BSC. Pt's decreased independence warrants management supervisor care. Recommend D/C to IP rehab facility. [...] Description Service Date Service Provider Modifiers Qty [id number] HC PT EVAL MOD COMPLEXITY 4 08/30/2025 Flora Galvan, PT GP 1 PT G-Codes Outcome Measure Options: AM-PAC 6 Clicks Basic Mobility (PT) AM-PAC 6 Clicks Score (PT): 11 AM-PAC 6 Clicks Score (OT): 12 PT Discharge Summary Anticipated Discharge Disposition (PT): inpatient rehabilitation facility Ellen Galvan, PT 08/30/2025 * Case Management/Social Work - Félix Azul, RN - 08/29/2025 10:36 AM EST Discharge Planning Assessment [facility] Patient Name: Loc Thurman Today's Date: [...] child(aminta), adult Family Caregiver Names Sarabjit (son) [phone] Able to Return to Prior Arrangements yes [...] Discharge none Discharge Plan Row Name 08/29/25 4240 Plan Plan Ongoing Patient/Family in Agreement with Plan yes Plan Comments Spoke with son at bedside. Lives alone in [facility]. Contact is Sarabjti (son) [phone]. Is independent with ADL's. No problems affording Medicare/[employer] [place] or medications. Uses [facility]. No [...] Reason for Consult discharge planning Preferred Language Cymraes Contact Information Permission Granted to Share Info With clinical case managersenior product development manager Information Obtained for clinical case managerinventory manager Status Row Name 08/29/25 1032 Functional [...] GLUCOSE FINGERSTICK Routine 08/31/2025 1:02 PM EST GREY TENDER FEES FIBEROPTIC ENDO EVAL SWALLOW Routine 08/31/2025 [...] EXAM Routine 08/28/2025 8:40 AM EST Cholecystitis NJ LAPS SURG CHOLECYSTECTOMY W/CHOLANGIOGRAPHY 08/28/2025 7:40 AM [...] pancreatitis, unspecified complication status, unspecified pancreatitis type NJ ARTL CATHJ/CANNULJ MNTR/TRANSFUSION SPX PRQ Routine 08/28/2025 5:20 AM EST Acute pancreatitis, unspecified complication status, unspecified pancreatitis type HC CENTRAL LINE INSERTION Routine 08/28/2025 5:19 AM EST Acute pancreatitis, unspecified complication status, unspecified pancreatitis type NJ INSJ NON-TUNNELED CENTRAL VENOUS CATH AGE 3 [...] EST IRON PROFILE + FERRITIN Add-On 08/27/20 7:43 PM EST PROCALCITONIN STAT 08/27/2025 7:43 [...] MD 09/05/2025 4:23 PM EST Workstation ID: [id number] Narrative 09/05/2025 4:23 PM EST FL VIDEO [...] MD 09/05/2025 4:23 PM EST Workstation ID: [id number] Flora Baig MD IMG FLUOROSCOP Y ORDERABLES Final Result * Magnesium (09/05/2025 4:35 AM EST) Magnesium 2.4 1.6 - 2.4 mg/dL 09/05/2025 5:28 AM EST [facility] Blood Venipuncture / Unknown 09/05/2025 4:35 AM EST 09/05/2025 4:56 AM EST Flora Baig MD LAB BLOOD ORDE RABLES Final Result [facility]
[address] [place] [address], * (ABNORMAL) CBC (No Diff) (09/05/2025 4:35 AM EST) WBC 11.96(H) 3.40 - 10.80 10*3/mm3 09/05/2025 5:14 AM EST [facility] RBC 3.00(L) 4.14 - 5.80 10*6/mm3 09/05/2025 5:14 AM EST [facility] Hemoglobin 9.1(L) 13.0 - 17.7 g/dL 09/05/2025 5:14 AM EST [facility] Hematocrit 29.2(L) 37.5 - 51.0 % 09/05/2025 5:14 AM EST [facility] MCV 97.3(H) 79.0 - 97.0 fL 09/05/2025 5:14 AM EST [facility] MCH 30.3 26.6 - 33.0 pg 09/05/2025 5:14 AM EST [facility] MCHC 31.2(L) 31.5 - 35.7 g/dL 09/05/2025 5:14 AM EST [facility] RDW 14.9 12.3 - 15.4 % 09/05/2025 5:14 AM EST [facility] RDW-SD 52.1 37.0 - 54.0 fl 09/05/2025 5:14 AM EST [facility] MPV 10.9 6.0 - 12.0 fL 09/05/2025 5:14 AM EST [facility] Platelets 191 140 - 450 10*3/mm3 09/05/2025 5:14 AM EST [facility] Blood Venipuncture / Unknown 09/05/2025 4:35 AM EST 09/05/2025 4:59 AM EST us Flora Baig MD LAB BLOOD VIPIN ROGERS Final Result [facility]
[address] [place] [address], * (ABNORMAL) Basic Metabolic Panel (09/05/2025 4:35 AM EST) Glucose 110(H) 65 - 99 mg/dL 09/05/2025 5:28 AM [facility] BUN 18.5 8.0 - 23.0 mg/dL 09/05/2025 5:28 AM EST [facility] Creatinine 0.72(L) 0.76 - 1.27 mg/dL 09/05/2025 5:28 AM EST [facility] Sodium 146(H) 136 - 145 mmol/L 09/05/2025 5:28 AM [facility] Potassium 4.0 3.5 - 5.2 mmol/L 09/05/2025 5:28 AM EST [facility] Chloride 115(H) 98 - 107 mmol/L 09/05/2025 5:28 AM EST [facility] CO2 24.0 22.0 - 29.0 mmol/L 09/05/2025 5:28 AM EST [facility] Calcium 7.7(L) 8.6 - 10.5 mg/dL 09/05/2025 5:28 AM [facility] BUN/Creatinine Ratio 25.7(H) 7.0 - 25.0 09/05/2025 5:28 AM [facility] Anion Gap 7.0 5.0 - 15.0 mmol/L 09/05/2025 5:28 AM [facility] eGFR 89.0 >60.0 mL/min/1.7 3 09/05/2025 5:28 AM [facility] Blood Venipuncture / Unknown 09/05/2025 4:35 AM EST 09/05/2025 4:56 AM EST [facility] - 09/05/2025 5:28 AM EST GFR [...] a factor Flora Baig MD LAB BLOOD ORDNy ROGERS Final Result Performing Organization Address City/[facility]/ZIP Co de Phone Number [facility]
[address] [place] [address], * Potassium (09/04/2025 5:30 PM EST) Potassium 4.3 3.5 - 5.2 mmol/L 09/04/2025 6:36 PM EST [facility] Blood Venipuncture / Unknown 09/04/2025 5:30 PM EST 09/04/2025 5:57 PM EST Flora Baig MD LAB BLOOD ORDE KEN Final Result Performing Organization Address [facility] Co de Phone Number [facility]
[address] [place] [address], * POC Glucose Once (09/04/2025 4:35 PM EST) Glucose 122 70 - 130 mg/dL 09/04/2025 4:44 PM EST [facility] Comment:Serial Number: [id number]: [id number] Blood 09/04/2025 4:35 PM EST 09/04/2025 4:44 PM EST Flora Baig MD POINT OF CARE TEST ORDERABLES Final Result Performing Organization Address [facility] Co de Phone Number [facility]
[address] [place] [address], * POC Glucose Once (09/04/2025 11:54 AM EST) Glucose 117 70 - 130 mg/dL 09/04/2025 11:57 AM EST [facility] Comment:Serial Number: [id number]: [id number] Blood 09/04/2025 11:5 4 AM EST 09/04/2025 11:57 AM EST Flora Baig MD POINT OF CARE TEST ORDERABLES Final Result Performing Organization Address [facility] Co de Phone Number [facility]
[address] [place] [address], * POC Glucose Once (09/04/2025 8:04 AM EST) Glucose 118 70 - 130 mg/dL 09/04/2025 8:09 AM EST [facility] Comment:Serial Number: [id number]: [id number] Blood 09/04/2025 8:04 AM EST 09/04/2025 8:09 AM EST Flora Baig MD POINT OF CARE TEST ORDERABLES Final Result Performing Organization Address [facility] de Phone Number [facility]
[address] [place] [address], * (ABNORMAL) Phosphorus (09/04/2025 5:18 AM EST) Phosphorus 2.4(L) 2.5 - 4.5 mg/dL 09/04/2025 6:13 AM EST [facility] Blood Venipuncture / Unknown 09/04/2025 5:18 AM EST 09/04/2025 5:51 AM EST Flora Baig MD LAB BLOOD ORDE RABLES Final Result [facility]
[address] [place] [address], * (ABNORMAL) CBC (No Diff) (09/04/2025 5:18 AM EST) WBC 12.52(H) 3.40 - 10.80 10*3/mm3 09/04/2025 5:55 AM EST [facility] RBC 3.27(L) 4.14 - 5.80 10*6/mm3 09/04/2025 5:55 AM EST [facility] Hemoglobin 9.5(L) 13.0 - 17.7 g/dL 09/04/2025 5:55 AM EST [facility] Hematocrit 30.9(L) 37.5 - 51.0 % 09/04/2025 5:55 AM EST [facility] MCV 94.5 79.0 - 97.0 fL 09/04/2025 5:55 AM EST [facility] MCH 29.1 26.6 - 33.0 pg 09/04/2025 5:55 AM EST [facility] MCHC 30.7(L) 31.5 - 35.7 g/dL 09/04/2025 5:55 AM EST [facility] RDW 14.6 12.3 - 15.4 % 09/04/2025 5:55 AM EST [facility] RDW-SD 50.4 37.0 - 54.0 fl 09/04/2025 5:55 AM EST [facility] MPV 11.0 6.0 - 12.0 fL 09/04/2025 5:55 AM EST [facility] Platelets 162 140 - 450 10*3/mm3 09/04/2025 5:55 AM EST [facility] Blood Venipuncture / Unknown 09/04/2025 5:18 AM EST 09/04/2025 5:52 AM EST us Flora Baig MD LAB BLOOD ORDNy KEN Final Result [facility]
[address] [place] [address], * (ABNORMAL) Basic Metabolic Panel (09/04/2025 5:18 AM EST) Glucose 122(H) 65 - 99 mg/dL 09/04/2025 6:13 AM EST [facility] BUN 21.0 8.0 - 23.0 mg/dL 09/04/2025 6:13 AM EST [facility] Creatinine 0.71(L) 0.76 - 1.27 mg/dL 09/04/2025 6:13 AM EST [facility] Sodium 145 136 - 145 mmol/L 09/04/2025 6:13 AM EST [facility] Potassium 3.5 3.5 - 5.2 mmol/L 09/04/2025 6:13 AM EST [facility] Chloride 113(H) 98 - 107 mmol/L 09/04/2025 6:13 AM EST [facility] CO2 25.0 22.0 - 29.0 mmol/L 09/04/2025 6:13 AM EST [facility] Calcium 7.9(L) 8.6 - 10.5 mg/dL 09/04/2025 6:13 AM EST [facility] BUN/Creatinine Ratio 29.6(H) 7.0 - 25.0 09/04/2025 6:13 AM EST [facility] Anion Gap 7.0 5.0 - 15.0 mmol/L 09/04/2025 6:13 AM EST [facility] eGFR 89.4 >60.0 mL/min/1.7 3 09/04/2025 6:13 AM EST [facility] Blood Venipuncture / Unknown 09/04/2025 5:18 AM EST 09/04/2025 5:51 AM EST Narrative [facility] - 09/04/2025 6:13 AM EST GFR [...] factor Flora Baig MD LAB BLOOD ORDE RABLES Final Result Performing Organization Address [facility]/[facility] Co de Phone Number [facility]
[address] [place] [address], * Magnesium (09/04/2025 5:18 AM EST) Magnesium 2.3 1.6 - 2.4 mg/dL 09/04/2025 6:13 AM EST [facility] Blood Venipuncture / Unknown 09/04/2025 5:18 AM EST 09/04/2025 5:51 AM EST Brian Hughes MD LAB BLOOD ORDERABLES Final R esult Performing Organization Address [facility] [place]/[facility] Co de Phone Number [facility]
[address] [place] [address], * (ABNORMAL) POC Glucose Once (09/03/2025 7:51 PM EST) Glucose 141(H) 70 - 130 mg/dL 09/03/2025 7:56 PM EST [facility] Comment:Serial Number: [id number] Blood 09/03/2025 7:51 PM EST 09/03/2025 7:56 PM EST Flora Baig MD POINT OF CARE TEST ORDERABLES Final Result Performing Organization Address City/[facility] Co de Phone Number [facility]
[address] [place] [address], * (ABNORMAL) POC Glucose Once (09/03/2025 4:09 PM EST) Glucose 155(H) 70 - 130 mg/dL 09/03/2025 4:11 PM EST [facility] Comment:Serial Number: [id number] Blood 09/03/2025 4:09 PM EST 09/03/2025 4:11 PM EST Flora Baig MD POINT OF CARE TEST ORDERABLES Final Result Performing Organization Address [facility] [place]/[facility] Co de Phone Number [facility]
[address] [place] [address], * Scan Slide (09/03/2025 1:57 PM EST) [facility] RBC Morphology Normal Normal 09/03/2025 3:20 PM EST [facility] WBC Morphology Normal Normal 09/03/2025 3:20 PM EST [facility] Platelet Estimate Adequate Normal 09/03/2025 3:20 PM EST [facility] Blood Venipuncture / Unknown 09/03/2025 1:57 PM EST 09/03/2025 2:09 PM EST Lizbeth Myers APRN LAB BLOOD ORDERABLES Final Result Performing Organization Address City/[facility]/ZIP Co de Phone Number [facility]
[address] [place] [address], * Potassium (09/03/2025 1:57 PM EST) Pathologist [facility] Potassium 4.4 3.5 - 5.2 mmol/L 09/03/2025 2:27 PM EST [facility] Blood Venipuncture / Unknown 09/03/2025 1:57 PM EST 09/03/2025 2:09 PM EST us Flora Baig MD LAB BLOOD VIPIN ROGERS Final Result [facility]
[address] [place] [address], * (ABNORMAL) CBC Auto Differential (09/03/2025 1:57 PM EST) [facility] WBC 10.70 3.40 - 10.80 10*3/mm3 09/03/2025 3:20 PM EST [facility] RBC 3.19(L) 4.14 - 5.80 10*6/mm3 09/03/2025 3:20 PM EST [facility] Hemoglobin 9.3(L) 13.0 - 17.7 g/dL 09/03/2025 3:20 PM EST [facility] Hematocrit 30.4(L) 37.5 - 51.0 % 09/03/2025 3:20 PM EST [facility] MCV 95.3 79.0 - 97.0 fL 09/03/2025 3:20 PM EST [facility] MCH 29.2 26.6 - 33.0 pg 09/03/2025 3:20 PM EST [facility] MCHC 30.6(L) 31.5 - 35.7 g/dL 09/03/2025 3:20 PM EST [facility] RDW 14.6 12.3 - 15.4 % 09/03/2025 3:20 PM EST [facility] RDW-SD 51.0 37.0 - 54.0 fl 09/03/2025 3:20 PM EST [facility] MPV 10.9 6.0 - 12.0 fL 09/03/2025 3:20 PM EST [facility] Platelets 140 140 - 450 10*3/mm3 09/03/2025 3:20 PM EST [facility] Neutrophil % 68.1 42.7 - 76.0 % 09/03/2025 3:20 PM [facility] Lymphocyte % 18.1(L) 19.6 - 45.3 % 09/03/2025 3:20 PM [facility] Monocyte % 7.6 5.0 - 12.0 % 09/03/2025 3:20 PM [facility] Eosinophil % 1.3 0.3 - 6.2 % 09/03/2025 3:20 PM [facility] Basophil % 0.3 0.0 - 1.5 % 09/03/2025 3:20 PM [facility] Immature Grans % 4.6(H) 0.0 - 0.5 % 09/03/2025 3:20 PM [facility] Neutrophils, Absolute 7.29(H) 1.70 - 7.00 10*3/mm3 09/03/2025 3:20 PM [facility] Lymphocytes, Absolute 1.94 0.70 - 3.10 10*3/mm3 09/03/2025 3:20 PM [facility] Monocytes, Absolute 0.81 0.10 - 0.90 10*3/mm3 09/03/2025 3:20 PM [facility] Eosinophils, Absolute 0.14 0.00 - 0.40 10*3/mm3 09/03/2025 3:20 PM [facility] Basophils, Absolute 0.03 0.00 - 0.20 10*3/mm3 09/03/2025 3:20 PM [facility] Immature Grans, Absolute 0.49(H) 0.00 - 0.05 10*3/mm3 09/03/2025 3:20 PM [facility] nRBC 0.4(H) 0.0 - 0.2 /100 WBC 09/03/2025 3:20 PM [facility] Blood Venipuncture / Unknown 09/03/2025 1:57 PM EST 09/03/2025 2:09 PM [facility] - 09/03/2025 3:20 PM EST Appended report. These results have been appended to a previously verified report. Lizbeth Myers APRN LAB BLOOD ORDERABLES Final Result Performing Organization Address City/[facility] Co de Phone Number [facility]
[address] [place] [address], * POC Glucose Once (09/03/2025 11:47 AM EST) Glucose 125 70 - 130 mg/dL 09/03/2025 11:49 AM EST [facility] Comment:Serial Number: [id number]: [id number] Blood 09/03/2025 11:4 7 AM EST 09/03/2025 11:49 AM EST Flora Baig MD POINT OF CARE TEST ORDERABLES Final Result Performing Organization Address [facility] [place]/[facility] Co de Phone Number [facility]
[address] [place] [address], * POC Glucose Once (09/03/2025 7:25 AM EST) Glucose 92 70 - 130 mg/dL 09/03/2025 7:27 AM EST [facility] Comment:Serial Number: [id number]: [id number] Blood 09/03/2025 7:25 AM EST 09/03/2025 7:27 AM EST Flora Baig MD POINT OF CARE TEST ORDERABLES Final Result Performing Organization Address [facility] [place]/[facility] Co de Phone Number [facility]
[address] [place] [address], * (ABNORMAL) Basic Metabolic Panel (09/03/2025 3:43 AM EST) Glucose 108(H) 65 - 99 mg/dL 09/03/2025 4:37 AM [facility] BUN 23.0 8.0 - 23.0 mg/dL 09/03/2025 4:37 AM [facility] Creatinine 0.76 0.76 - 1.27 mg/dL 09/03/2025 4:37 AM [facility] Sodium 149(H) 136 - 145 mmol/L 09/03/2025 4:37 AM [facility] Potassium 3.5 3.5 - 5.2 mmol/L 09/03/2025 4:37 AM [facility] Comment:Specimen hemolyzed. Result may be falsely elevated. Chloride 114(H) 98 - 107 mmol/L 09/03/2025 4:37 AM [facility] CO2 23.6 22.0 - 29.0 mmol/L 09/03/2025 4:37 AM [facility] Calcium 7.8(L) 8.6 - 10.5 mg/dL 09/03/2025 4:37 AM [facility] BUN/Creatinine Ratio 30.3(H) 7.0 - 25.0 09/03/2025 4:37 AM [facility] Anion Gap 11.4 5.0 - 15.0 mmol/L 09/03/2025 4:37 AM [facility] eGFR 87.5 >60.0 mL/min/1.7 3 09/03/2025 4:37 AM [facility] Blood Venipuncture / Unknown 09/03/2025 3:43 AM EST 09/03/2025 4:08 AM EST [facility] - 09/03/2025 4:37 AM EST GFR [...] BLOOD ORDERABLES Final Result Performing Organization Address [facility]/[facility] Co de Phone Number [facility]
[address] [place] [address], * Magnesium (09/03/2025 3:43 AM EST) [facility] Magnesium 2.2 1.6 - 2.4 mg/dL 09/03/2025 4:37 AM EST [facility] Blood Venipuncture / Unknown 09/03/2025 3:43 AM EST 09/03/2025 4:08 AM EST Brian Hughes MD LAB BLOOD ORDERABLES Final R esult Performing Organization Address [facility] Co de Phone Number [facility]
[address] [place] [address], * (ABNORMAL) POC Glucose Once (09/02/2025 8:03 PM EST) [facility] Glucose 141(H) 70 - 130 mg/dL 09/02/2025 8:05 PM EST [facility] Comment:Serial Number: [id number]: [id number] Blood 09/02/2025 8:03 PM EST 09/02/2025 8:05 PM EST Flora Baig MD POINT OF CARE TEST ORDERABLES Final Result Performing Organization Address [facility] [place]/[facility] Co de Phone Number [facility]
[address] [place] [address], * ECHO COMPLETE W/ DOPPLER, COLOR FLOW AND CONTRAST (09/02/2025 6:08 PM EST) [facility] EF(MOD-bp) 67.2 % LVIDd 3.1 cm LVIDs [...] % EF(MOD-sp4) 71.8 % MV E max moin 80.7 cm/sec MV A max moni 125.0 [...] - 130 mg/dL 09/02/2025 4:56 PM EST [facility] Comment:Serial Number: [id number]: [id number] Blood 09/02/2025 4:54 PM EST 09/02/2025 4:56 PM EST Flora Baig MD POINT OF CARE TEST ORDERABLES Final Result [facility]
[address] [place] [address], * Lactic Acid, Plasma (09/02/2025 3:43 PM EST) Lactate 1.5 0.5 - 2.0 mmol/L 09/02/2025 4:30 PM EST [facility] Comment:Falsely depressed re sults may occur on samples drawn from patients receiving N-Acetylcysteine (NAC) or Metamizole. Blood Venipuncture / Unknown 09/02/2025 3:43 PM EST 09/02/2025 3:53 PM EST us Lizbeth Myers MACHINE [employer]ER [employer] LAB BLOOD ORDERABLES Final Result [facility]
[address] [place] [address], * (ABNORMAL) Manual Differential (09/02/2025 2:36 PM EST) Neutrophil % 83.0(H) 42.7 - 76.0 % 09/02/2025 4:01 PM EST [facility] Lymphocyte % 5.0(L) 19.6 - 45.3 % 09/02/2025 4:01 PM EST [facility] Monocyte % 3.0(L) 5.0 - 12.0 % 09/02/2025 4:01 PM EST [facility] Eosinophil % 0.0(L) 0.3 - 6.2 % 09/02/2025 4:01 PM EST [facility] Basophil % 0.0 0.0 - 1.5 % 09/02/2025 4:01 PM EST [facility] Bands % 4.0 0.0 - 5.0 % 09/02/2025 4:01 PM EST [facility] Metamyelocyte % 1.0(H) 0.0 - 0.0 % 09/02/2025 4:01 PM EST [facility] Myelocyte % 1.0(H) 0.0 - 0.0 % 09/02/2025 4:01 PM EST [facility] Atypical Lymphocyte % 3.0 0.0 - 5.0 % 09/02/2025 4:01 PM EST [facility] Neutrophils Absolute 9.65(H) 1.70 - 7.00 10*3/mm3 09/02/2025 4:01 PM EST [facility] Lymphocytes Absolute 0.89 0.70 - 3.10 10*3/mm3 09/02/2025 4:01 PM EST [facility] Monocytes Absolute 0.33 0.10 - 0.90 10*3/mm3 09/02/2025 4:01 PM EST [facility] Eosinophils Absolute 0.00 0.00 - 0.40 10*3/mm3 09/02/2025 4:01 PM [facility] Basophils Absolute 0.00 0.00 - 0.20 10*3/mm3 09/02/2025 4:01 PM [facility] RBC Morphology Normal Normal 09/02/2025 4:01 PM [facility] WBC Morphology Normal Normal 09/02/2025 4:01 PM [facility] Platelet Morphology Normal Normal 09/02/2025 4:01 PM [facility] Blood Venipuncture / Unknown 09/02/2025 2:36 PM EST 09/02/2025 2:47 PM EST Lizbeth Myers MACHINE F[employer]ER [employer]DER LAB BLOOD ORDERABLES Final Result [facility]
[address] [place] [address], * (ABNORMAL) CBC Auto Differential (09/02/2025 2:36 PM EST) WBC 11.09(H) 3.40 - 10.80 10*3/mm3 09/02/2025 4:01 PM [facility] RBC 3.34(L) 4.14 - 5.80 10*6/mm3 09/02/2025 4:01 PM [facility] Hemoglobin 9.8(L) 13.0 - 17.7 g/dL 09/02/2025 4:01 PM [facility] Hematocrit 31.2(L) 37.5 - 51.0 % 09/02/2025 4:01 PM [facility] MCV 93.4 79.0 - 97.0 fL 09/02/2025 4:01 PM [facility] MCH 29.3 26.6 - 33.0 pg 09/02/2025 4:01 PM [facility] MCHC 31.4(L) 31.5 - 35.7 g/dL 09/02/2025 4:01 PM EST [facility] RDW 14.5 12.3 - 15.4 % 09/02/2025 4:01 PM EST [facility] RDW-SD 49.8 37.0 - 54.0 fl 09/02/2025 4:01 PM EST [facility] MPV 11.0 6.0 - 12.0 fL 09/02/2025 4:01 PM EST [facility] Platelets 102(L) 140 - 450 10*3/mm3 09/02/2025 4:01 PM EST [facility] Blood Venipuncture / Unknown 09/02/2025 2:36 PM EST 09/02/2025 2:47 PM EST [facility] - 09/02/2025 4:01 PM EST The previously reported component NRBC is no longer being reported. Previous result was 0.5 /100 WBC (Reference Range: 0.0-0.2 /100 WBC) on 09/02/2025 at 1459 EST. Lizbeth Myers MACHINE FILLER [employer]REDDER LAB BLOOD ORDERABLES Final Result [facility]
[address] [place] [address], * (ABNORMAL) Procalcitonin (09/02/2025 2:36 PM EST) Procalcitonin 4.27(H) 0.00 - 0.25 ng/mL 09/02/2025 3:24 PM EST [facility] Blood Venipuncture / Unknown 09/02/2025 2:36 PM EST 09/02/2025 2:47 PM EST [facility] - 09/02/2025 3:24 PM EST As [...] Day 4 values are available. Refer to http://www.tyzxnp-riq-kxtpgxhahf.com Change in PCT <=80% A decrease of [...] diagnosed with severe sepsis or septic shock. Lizbeth Myers APRN LAB BLOOD ORDERABLES Final Result [facility]
[address] [place] [address], * (ABNORMAL) proBNP (09/02/2025 2:36 PM EST) [facility] proBNP 9,267.0(H) 0.0 - 1,800.0 pg/mL 09/02/2025 3:24 PM EST [facility] Blood Venipuncture / Unknown 09/02/2025 2:36 PM EST 09/02/2025 2:47 PM EST Narrative [facility] - 09/02/2025 3:24 PM EST [...] BLOOD ORDERABLES Final Result Performing Organization Address City/[facility]/ZIP Co de Phone Number [facility]
[address] [place] [address], * POC Glucose Once (09/02/2025 12:24 PM EST) [facility] Glucose 124 70 - 130 mg/dL 09/02/2025 12:27 PM EST [facility] Comment:Serial Number: [id number] Blood 09/02/2025 12:2 4 PM EST 09/02/2025 12:27 PM EST Flora Baig MD POINT OF CARE TEST ORDERABLES Final Result Performing Organization Address City/[facility]/ZIP Co de Phone Number [facility]
[address] [place] [address], * XR Chest 1 View (09/02/2025 11:37 [...] MD 09/02/2025 12:03 PM EST Workstation ID: [id number] Narrative 09/02/2025 12:03 PM EST XR CHEST [...] AP chest x-ray 08/29/2025, 08/28/2025; CT abdomen [id number]/27/2025 Findings: Lower chest is not entirely included. [...] MD 09/02/2025 12:03 PM EST Workstation ID: [id number] Lizbeth Myers APRN IMG DIAGNOSTIC IMAGING VIPIN ROGERS Final Result [...] MD 09/02/2025 12:12 PM EST Workstation ID: [id number] Narrative 09/02/2025 12:12 PM EST [place] VIDEO [...] MD 09/02/2025 12:12 PM EST Workstation ID: [id number] Flora Baig MD IMG FLUOROSCOP Y ORDERABLES Final Result * POC Glucose Once (09/02/2025 7:44 AM EST) Glucose 97 70 - 130 mg/dL 09/02/2025 8:08 AM EST [facility] Comment:Serial Number: [id number]: [id number] Blood 09/02/2025 7:44 AM EST 09/02/2025 8:08 AM EST Flora Baig MD POINT OF CARE TEST ORDERABLES Final Result [facility]
[address] [place] [address], * Phosphorus (09/02/2025 5:43 AM EST) [facility] Phosphorus 2.5 2.5 - 4.5 mg/dL 09/02/2025 6:50 AM EST [facility] Blood Venipuncture / Unknown 09/02/2025 5:43 AM EST 09/02/2025 6:09 AM EST Flora Baig MD LAB BLOOD VIPIN ROGERS Final Result [facility]
[address] [place] [address], * (ABNORMAL) Comprehensive Metabolic Panel (09/02/2025 5:43 AM EST) [facility] Glucose 99 65 - 99 mg/dL 09/02/2025 6:55 AM [facility] BUN 22.7 8.0 - 23.0 mg/dL 09/02/2025 6:55 AM [facility] Creatinine 0.69(L) 0.76 - 1.27 mg/dL 09/02/2025 6:55 AM [facility] Sodium 148(H) 136 - 145 mmol/L 09/02/2025 6:55 AM EST [facility] Potassium 3.7 3.5 - 5.2 mmol/L 09/02/2025 6:55 AM [facility] Chloride 116(H) 98 - 107 mmol/L 09/02/2025 6:55 AM [facility] CO2 22.5 22.0 - 29.0 mmol/L 09/02/2025 6:55 AM [facility] Calcium 8.2(L) 8.6 - 10.5 mg/dL 09/02/2025 6:55 AM EST [facility] Total Protein 5.5(L) 6.0 - 8.5 g/dL 09/02/2025 6:55 AM [facility] Albumin 3.1(L) 3.5 - 5.2 g/dL 09/02/2025 6:55 AM [facility] ALT (SGPT) 81(H) 1 - 41 U/L 09/02/2025 6:55 AM [facility] AST (SGOT) 42(H) 1 - 40 U/L 09/02/2025 6:55 AM [facility] Alkaline Phosphatase 171(H) 39 - 117 U/L 09/02/2025 6:55 AM [facility] Total Bilirubin 0.8 0.0 - 1.2 mg/dL 09/02/2025 6:55 AM [facility] Globulin 2.4 gm/dL 09/02/2025 6:55 AM [facility] Comment:Calculated Result A/G Ratio 1.3 g/dL 09/02/2025 6:55 AM [facility] BUN/Creatinine Ratio 32.9(H) 7.0 - 25.0 09/02/2025 6:55 AM [facility] Anion Gap 9.5 5.0 - 15.0 mmol/L 09/02/2025 6:55 AM [facility] eGFR 90.1 >60.0 mL/min/1.7 3 09/02/2025 6:55 AM [facility] Blood Venipuncture / Unknown 09/02/2025 5:43 AM EST 09/02/2025 6:09 AM EST [facility] - 09/02/2025 6:55 AM EST [...] MD LAB BLOOD ORDERABLES Final Re sult [facility]
[address] [place] [address], * (ABNORMAL) CBC (No Diff) (09/02/2025 5:43 AM EST) WBC 10.84(H) 3.40 - 10.80 10*3/mm3 09/02/2025 6:25 AM EST [facility] RBC 3.22(L) 4.14 - 5.80 10*6/mm3 09/02/2025 6:25 AM EST [facility] Hemoglobin 9.6(L) 13.0 - 17.7 g/dL 09/02/2025 6:25 AM EST [facility] Hematocrit 30.8(L) 37.5 - 51.0 % 09/02/2025 6:25 AM EST [facility] MCV 95.7 79.0 - 97.0 fL 09/02/2025 6:25 AM EST [facility] MCH 29.8 26.6 - 33.0 pg 09/02/2025 6:25 AM EST [facility] MCHC 31.2(L) 31.5 - 35.7 g/dL 09/02/2025 6:25 AM EST [facility] RDW 14.2 12.3 - 15.4 % 09/02/2025 6:25 AM EST [facility] RDW-SD 50.4 37.0 - 54.0 fl 09/02/2025 6:25 AM EST [facility] MPV 10.4 6.0 - 12.0 fL 09/02/2025 6:25 AM EST [facility] Platelets 94(L) 140 - 450 10*3/mm3 09/02/2025 6:25 AM EST [facility] Blood Venipuncture / Unknown 09/02/2025 5:43 AM EST 09/02/2025 6:08 AM EST Hermes Jaramillo MD LAB BLOOD ORDERABLES Final Re sult Performing Organization Address [facility] [place]/[facility] Co de Phone Number [facility]
[address] [place] [address], * Magnesium (09/02/2025 5:43 AM EST) Magnesium 2.4 1.6 - 2.4 mg/dL 09/02/2025 6:55 AM EST [facility] Blood Venipuncture / Unknown 09/02/2025 5:43 AM EST 09/02/2025 6:09 AM EST Brian Hughes MD LAB BLOOD ORDERABLES Final R esult Performing Organization Address [facility] [place]/[facility] de Phone Number [facility]
[address] [place] [address], * (ABNORMAL) POC Glucose Once (09/01/2025 7:57 PM EST) Glucose 139(H) 70 - 130 mg/dL 09/01/2025 8:03 PM EST [facility] Comment:Serial Number: [id number]: [id number] Blood 09/01/2025 7:57 PM EST 09/01/2025 8:03 PM EST Flora Baig MD POINT OF CARE TEST ORDERABLES Final Result Performing Organization Address [facility] [place]/[facility] Co de Phone Number [facility]
[address] [place] [address], * (ABNORMAL) POC Glucose Once (09/01/2025 5:34 PM EST) Glucose 132(H) 70 - 130 mg/dL 09/01/2025 5:36 PM EST [facility] Comment:Serial Number: [id number]: [id number] Blood 09/01/2025 5:34 PM EST 09/01/2025 5:36 PM EST Flora Baig MD POINT OF CARE TEST ORDERABLES Final Result Performing Organization Address City/[facility]/ZIP Co de Phone Number [facility]
[address] [place] [address], * (ABNORMAL) Phosphorus (09/01/2025 5:05 PM EST) Phosphorus 2.1(L) 2.5 - 4.5 mg/dL 09/01/2025 6:08 PM EST [facility] Blood Venipuncture / Unknown 09/01/2025 5:05 PM EST 09/01/2025 5:45 PM EST Flora Baig MD LAB BLOOD ORDE RABLES Final Result Performing Organization Address [facility] [place]/[facility] Co de Phone Number [facility]
[address] [place] [address], * Potassium (09/01/2025 5:05 PM EST) Potassium 4.0 3.5 - 5.2 mmol/L 09/01/2025 6:08 PM EST [facility] Blood Venipuncture / Unknown 09/01/2025 5:05 PM EST 09/01/2025 5:45 PM EST Flora Baig MD LAB BLOOD ORDE RABLES Final Result Performing Organization Address City/[facility]/ZIP Co de Phone Number [facility]
[address] [place] [address], * POC Glucose Once (09/01/2025 11:39 AM EST) Glucose 109 70 - 130 mg/dL 09/01/2025 11:41 AM EST [facility] Comment:Serial Number: [id number]: [id number] Blood 09/01/2025 11:3 9 AM EST 09/01/2025 11:41 AM EST Flora Baig MD POINT OF CARE TEST ORDERABLES Final Result Performing Organization Address [facility] [place]/[facility]/[place] [facility] Co de Phone Number [facility]
[address] [place] [address], * POC Glucose Once (09/01/2025 5:31 AM EST) Glucose 111 70 - 130 mg/dL 09/01/2025 5:33 AM EST [facility] Comment:Serial Number: [id number]: [id number] Blood 09/01/2025 5:31 AM EST 09/01/2025 5:33 AM EST Flora Baig MD POINT OF CARE TEST ORDERABLES Final Result Performing Organization Address [facility] [place]/[facility] de Phone Number [facility]
[address] [place] [address], * (ABNORMAL) Hepatic Function Panel (09/01/2025 4:01 AM EST) Total Protein 5.0(L) 6.0 - 8.5 g/dL 09/01/2025 4:48 AM EST [facility] Albumin 3.0(L) 3.5 - 5.2 g/dL 09/01/2025 4:48 AM EST [facility] ALT (SGPT) 98(H) 1 - 41 U/L 09/01/2025 4:48 AM EST [facility] AST (SGOT) 38 1 - 40 U/L 09/01/2025 4:48 AM EST [facility] Alkaline Phosphatase 108 39 - 117 U/L 09/01/2025 4:48 AM EST [facility] Total Bilirubin 0.6 0.0 - 1.2 mg/dL 09/01/2025 4:48 AM EST [facility] Bilirubin, Direct 0.5(H) 0.0 - 0.3 mg/dL 09/01/2025 4:48 AM EST [facility] Bilirubin, Indirect 0.1 mg/dL 09/01/2025 4:48 AM EST [facility] Blood Venipuncture / Unknown 09/01/2025 4:01 AM EST 09/01/2025 4:15 AM EST us Brian Hughes MD LAB BLOOD ORDERABLES Final R esult [facility]
[address] [place] [address], * (ABNORMAL) Basic Metabolic Panel (09/01/2025 4:01 AM EST) Glucose 108(H) 65 - 99 mg/dL 09/01/2025 4:48 AM [facility] BUN 27.2(H) 8.0 - 23.0 mg/dL 09/01/2025 4:48 AM [facility] Creatinine 0.75(L) 0.76 - 1.27 mg/dL 09/01/2025 4:48 AM [facility] Sodium 148(H) 136 - 145 mmol/L 09/01/2025 4:48 AM EST [facility] Potassium 3.6 3.5 - 5.2 mmol/L 09/01/2025 4:48 AM [facility] Chloride 113(H) 98 - 107 mmol/L 09/01/2025 4:48 AM [facility] CO2 26.8 22.0 - 29.0 mmol/L 09/01/2025 4:48 AM EST [facility] Calcium 7.7(L) 8.6 - 10.5 mg/dL 09/01/2025 4:48 AM EST [facility] BUN/Creatinine Ratio 36.3(H) 7.0 - 25.0 09/01/2025 4:48 AM EST [facility] Anion Gap 8.2 5.0 - 15.0 mmol/L 09/01/2025 4:48 AM EST [facility] eGFR 87.9 >60.0 mL/min/1.7 3 09/01/2025 4:48 AM EST [facility] Blood Venipuncture / Unknown 09/01/2025 4:01 AM EST 09/01/2025 4:15 AM EST Narrative [facility] - 09/01/2025 4:48 AM EST GFR [...] MD LAB BLOOD ORDERABLES Final R esult [facility]
[address] [place] [address], * (ABNORMAL) Phosphorus (09/01/2025 4:01 AM EST) Phosphorus 2.0(L) 2.5 - 4.5 mg/dL 09/01/2025 4:48 AM EST [facility] Blood Venipuncture / Unknown 09/01/2025 4:01 AM EST 09/01/2025 4:15 AM EST us Brian Hughes MD LAB BLOOD ORDERABLES Final R esult Performing Organization Address [facility] [place]/[facility] Co de Phone Number [facility]
[address] [place] [address], * (ABNORMAL) Magnesium (09/01/2025 4:01 AM EST) Magnesium 2.5(H) 1.6 - 2.4 mg/dL 09/01/2025 4:48 AM EST [facility] Blood Venipuncture / Unknown 09/01/2025 4:01 AM EST 09/01/2025 4:15 AM EST Brian Hughes MD LAB BLOOD ORDERABLES Final R esult Performing Organization Address [facility] [place]/[facility] de Phone Number [facility]
[address] [place] [address], * POC Glucose Once (08/31/2025 11:55 PM EST) Glucose 104 70 - 130 mg/dL 08/31/2025 11:57 PM EST [facility] Comment:Serial Number: [id number]: [id number] Blood 08/31/2025 11:5 5 PM EST 08/31/2025 11:57 PM EST Cristian Mckee DO POINT OF CARE TEST ORDERABLES Final Result Performing Organization Address [facility] [place]/[facility] Co de Phone Number [facility]
[address] [place] [address], * POC Glucose Once (08/31/2025 6:02 PM EST) Glucose 119 70 - 130 mg/dL 08/31/2025 6:05 PM EST [facility] Comment:Serial Number: [id number]: [id number] Blood 08/31/2025 6:0 2 PM EST 08/31/2025 6:05 PM EST Cristian Mckee DO POINT OF CARE TEST ORDERABLES Final Result [facility]
[address] [place] [address], * Telemetry Scan (08/31/2025 2:54 PM EST) [facility] ECG ORDERABLES Final Result * (ABNORMAL) POC Glucose Once (08/31/2025 1:02 PM EST) Glucose 135(H) 70 - 130 mg/dL 08/31/2025 1:05 PM EST [facility] Comment:Serial Number: [id number]: [id number] Blood 08/31/2025 1:02 PM EST 08/31/2025 1:05 PM EST Cristian Mckee DO POINT OF CARE TEST ORDERABLES Final Result Performing Organization Address City/State/[facility] Co de Phone Number [facility]
[address] [place] [address], * GREY TENDER FEES - Fiberoptic Endo Eval Swallow (08/31/2025 9:23 AM EST) Narrative SYSTEMGENERATED, DOCUMENTATION - 08/31/2025 9:23 AM EST This procedure was auto-finalized with no dictation required. Brian Hughes MD GREY TENDER ORDERABLES Final Result * POC Glucose Once (08/31/2025 5:18 AM EST) Glucose 121 70 - 130 mg/dL 08/31/2025 5:20 AM EST [facility] Comment:Serial Number: [id number]: [id number] Blood 08/31/2025 5:18 AM EST 08/31/2025 5:20 AM EST Kyleivanrosi Elliotteb Rylee DO POINT OF CARE TEST ORDERABLES Final Result [facility]
[address] [place] [address], * (ABNORMAL) Procalcitonin (08/31/2025 3:38 AM EST) Procalcitonin 15.80(H) 0.00 - 0.25 ng/mL 08/31/2025 8:30 AM EST [facility] Blood Line / Unknown 08/31/2025 3: 38 AM EST 08/31/2025 3:45 AM EST Narrative [facility] - 08/31/2025 8:30 AM EST [...] Day 4 values are available. Refer to http://www.nenbxk-prc-ivzrjtlzsn.com Change in PCT <=80% A decrease of [...] PharmD LAB BLOOD ORDERABLES Fin al Result [facility]
[address] [place] [address], * (ABNORMAL) Manual Differential (08/31/2025 3:38 AM EST) Neutrophil % 75.0 42.7 - 76.0 % 08/31/2025 6:28 AM EST [facility] Lymphocyte % 9.0(L) 19.6 - 45.3 % 08/31/2025 6:28 AM EST [facility] Monocyte % 2.0(L) 5.0 - 12.0 % 08/31/2025 6:28 AM EST [facility] Eosinophil % 2.0 0.3 - 6.2 % 08/31/2025 6:28 AM EST [facility] Basophil % 0.0 0.0 - 1.5 % 08/31/2025 6:28 AM EST [facility] Bands % 11.0(H) 0.0 - 5.0 % 08/31/2025 6:28 AM EST [facility] Atypical Lymphocyte % 1.0 0.0 - 5.0 % 08/31/2025 6:28 AM EST [facility] Neutrophils Absolute 11.30(H) 1.70 - 7.00 10*3/mm3 08/31/2025 6:28 AM EST [facility] Lymphocytes Absolute 1.31 0.70 - 3.10 10*3/mm3 08/31/2025 6:28 AM EST [facility] Monocytes Absolute 0.26 0.10 - 0.90 10*3/mm3 08/31/2025 6:28 AM EST [facility] Eosinophils Absolute 0.26 0.00 - 0.40 10*3/mm3 08/31/2025 6:28 AM EST [facility] Basophils Absolute 0.00 0.00 - 0.20 10*3/mm3 08/31/2025 6:28 AM EST [facility] RBC Morphology Normal Normal 08/31/2025 6:28 AM EST [facility] WBC Morphology Normal Normal 08/31/2025 6:28 AM EST [facility] Platelet Morphology Normal Normal 08/31/2025 6:28 AM EST [facility] Blood Line / Unknown 08/31/2025 3: 38 AM EST 08/31/2025 3:48 AM EST Cristian Mckee DO LAB BLOOD ORDERABLE S Final Result [facility]
[address] [place] [address], * (ABNORMAL) CBC Auto Differential (08/31/2025 3:38 AM EST) WBC 13.14(H) 3.40 - 10.80 10*3/mm3 08/31/2025 6:28 AM EST [facility] RBC 3.12(L) 4.14 - 5.80 10*6/mm3 08/31/2025 6:28 AM [facility] Hemoglobin 9.4(L) 13.0 - 17.7 g/dL 08/31/2025 6:28 AM [facility] Hematocrit 29.2(L) 37.5 - 51.0 % 08/31/2025 6:28 AM EST [facility] MCV 93.6 79.0 - 97.0 fL 08/31/2025 6:28 AM EST [facility] MCH 30.1 26.6 - 33.0 pg 08/31/2025 6:28 AM [facility] MCHC 32.2 31.5 - 35.7 g/dL 08/31/2025 6:28 AM [facility] RDW 14.3 12.3 - 15.4 % 08/31/2025 6:28 AM [facility] RDW-SD 49.1 37.0 - 54.0 fl 08/31/2025 6:28 AM EST [facility] MPV 10.6 6.0 - 12.0 fL 08/31/2025 6:28 AM [facility] Platelets 102(L) 140 - 450 10*3/mm3 08/31/2025 6:28 AM EST [facility] Blood Line / Unknown 08/31/2025 3: 38 AM EST 08/31/2025 3:48 AM EST [facility] - 08/31/2025 6:28 AM EST The previously reported component NRBC is no longer being reported. Previous result was 0.0 /100 WBC (Reference Range: 0.0-0.2 /100 WBC) on 08/31/2025 at 0411 EST. Cristian Mckee DO LAB BLOOD ORDERABLE S Final Result Performing Organization Address City/[facility]/ZIP Co de Phone Number [facility]
[address] [place] [address], * (ABNORMAL) Phosphorus (08/31/2025 3:38 AM EST) Phosphorus 1.7(LL) 2.5 - 4.5 mg/dL 08/31/2025 4:38 AM EST [facility] Blood Line / Unknown 08/31/2025 3: 38 AM EST 08/31/2025 3:45 AM EST Brian Hughes MD LAB BLOOD ORDERABLES Final R esult Performing Organization Address City/[facility]/ZIP Co de Phone Number [facility]
[address] [place] [address], * (ABNORMAL) Comprehensive Metabolic Panel (08/31/2025 3:38 AM EST) Glucose 114(H) 65 - 99 mg/dL 08/31/2025 4:30 AM [facility] BUN 29.3(H) 8.0 - 23.0 mg/dL 08/31/2025 4:30 AM [facility] Creatinine 0.77 0.76 - 1.27 mg/dL 08/31/2025 4:30 AM [facility] Sodium 151(H) 136 - 145 mmol/L 08/31/2025 4:30 AM [facility] Potassium 3.2(L) 3.5 - 5.2 mmol/L 08/31/2025 4:30 AM [facility] Chloride 114(H) 98 - 107 mmol/L 08/31/2025 4:30 AM [facility] CO2 28.2 22.0 - 29.0 mmol/L 08/31/2025 4:30 AM [facility] Calcium 7.8(L) 8.6 - 10.5 mg/dL 08/31/2025 4:30 AM [facility] Total Protein 5.1(L) 6.0 - 8.5 g/dL 08/31/2025 4:30 AM [facility] Albumin 3.0(L) 3.5 - 5.2 g/dL 08/31/2025 4:30 AM [facility] ALT (SGPT) 144(H) 1 - 41 U/L 08/31/2025 4:30 AM [facility] AST (SGOT) 71(H) 1 - 40 U/L 08/31/2025 4:30 AM [facility] Alkaline Phosphatase 107 39 - 117 U/L 08/31/2025 4:30 AM [facility] Total Bilirubin 0.6 0.0 - 1.2 mg/dL 08/31/2025 4:30 AM [facility] Globulin 2.1 gm/dL 08/31/2025 4:30 AM [facility] Comment:Calculated Result A/G Ratio 1.4 g/dL 08/31/2025 4:30 AM [facility] BUN/Creatinine Ratio 38.1(H) 7.0 - 25.0 08/31/2025 4:30 AM EST [facility] Anion Gap 8.8 5.0 - 15.0 mmol/L 08/31/2025 4:30 AM EST [facility] eGFR 87.2 >60.0 mL/min/1.7 3 08/31/2025 4:30 AM EST [facility] Blood Line / Unknown 08/31/2025 3: 38 AM EST 08/31/2025 3:45 AM EST Narrative [facility] - 08/31/2025 4:30 AM EST GFR [...] MD LAB BLOOD ORDERABLES Final Re sult [facility]
[address] [place] [address], * (ABNORMAL) Lipase (08/31/2025 3:38 AM EST) Lipase 110(H) 13 - 60 U/L 08/31/2025 4:30 AM EST [facility] Blood Line / Unknown 08/31/2025 3: 38 AM EST 08/31/2025 3:45 AM EST us Hermes Jaramillo MD LAB BLOOD ORDERABLES Final Re sult [facility]
[address] [place] [address], * (ABNORMAL) Magnesium (08/31/2025 3:38 AM EST) Magnesium 2.6(H) 1.6 - 2.4 mg/dL 08/31/2025 4:30 AM EST [facility] Blood Line / Unknown 08/31/2025 3: 38 AM EST 08/31/2025 3:45 AM EST Brian Hughes MD LAB BLOOD ORDERABLES Final R esult Performing Organization Address [facility] Co de Phone Number [facility]
[address] [place] [address], * POC Glucose Once (08/30/2025 11:24 PM EST) Glucose 113 70 - 130 mg/dL 08/30/2025 11:26 PM EST [facility] Comment:Serial Number: [id number]: [id number] Nova Comment 1 Critical called to 08/30/2025 11:26 PM EST [facility] Nova Comment 2 Follow unit protocol 08/30/2025 11:26 PM EST [facility] Blood 08/30/2025 11:2 4 PM EST 08/30/2025 11:26 PM EST Cristian Mckee DO POINT OF CARE TEST ORDERABLES Final Result Performing Organization Address City/[facility] Co de Phone Number [facility]
[address] [place] [address], * POC Glucose Once (08/30/2025 5:45 PM EST) Glucose 91 70 - 130 mg/dL 08/30/2025 5:49 PM EST [facility] Comment:Serial Number: [id number]: [id number] Blood 08/30/2025 5:45 PM EST 08/30/2025 5:49 PM EST Cristian Mckee DO POINT OF CARE TEST ORDERABLES Final Result [facility]
[address] [place] [address], * POC Glucose Once (08/30/2025 11:31 AM EST) Glucose 92 70 - 130 mg/dL 08/30/2025 11:35 AM EST [facility] Comment:Serial Number: [id number]: [id number] Blood 08/30/2025 11:3 1 AM EST 08/30/2025 11:34 AM EST Cristian Mckee DO POINT OF CARE TEST ORDERABLES Final Result Performing Organization Address City/[facility] Co de Phone Number [facility]
[address] [place] [address], * Telemetry Scan (08/30/2025 9:26 AM EST) [facility] ECG ORDERABLES Final Result * POC Glucose Once (08/30/2025 5:13 AM EST) Glucose 100 70 - 130 mg/dL 08/30/2025 5:16 AM EST [facility] Comment:Serial Number: [id number]: [id number] Blood 08/30/2025 5:13 AM EST 08/30/2025 5:16 AM EST Cristian Mckee DO POINT OF CARE TEST ORDERABLES Final Result Performing Organization Address City/[facility]/ZIP Co de Phone Number [facility]
[address] [place] [address], * Phosphorus (08/30/2025 4:03 AM EST) Phosphorus 2.5 2.5 - 4.5 mg/dL 08/30/2025 5:01 AM EST [facility] Blood Line / Unknown 08/30/2025 4: 03 AM EST 08/30/2025 4:30 AM EST Brian Hughes MD LAB BLOOD ORDERABLES Final R esult Performing Organization Address City/[facility]/ZIP Co de Phone Number [facility]
[address] [place] [address], * (ABNORMAL) Lipase (08/30/2025 4:03 AM EST) Lipase 137(H) 13 - 60 U/L 08/30/2025 4:53 AM EST [facility] Blood Line / Unknown 08/30/2025 4: 03 AM EST 08/30/2025 4:30 AM EST Hermes Jaramillo MD LAB BLOOD ORDERABLES Final Re sult Performing Organization Address City/[facility]/ZIP Co de Phone Number [facility]
[address] [place] [address], * (ABNORMAL) Comprehensive Metabolic Panel (08/30/2025 4:03 AM EST) Glucose 98 65 - 99 mg/dL 08/30/2025 4:53 AM EST [facility] BUN 35.1(H) 8.0 - 23.0 mg/dL 08/30/2025 4:53 AM EST [facility] Creatinine 1.16 0.76 - 1.27 mg/dL 08/30/2025 4:53 AM EST [facility] Sodium 148(H) 136 - 145 mmol/L 08/30/2025 4:53 AM EST [facility] Potassium 3.5 3.5 - 5.2 mmol/L 08/30/2025 4:53 AM [facility] Chloride 109(H) 98 - 107 mmol/L 08/30/2025 4:53 AM [facility] CO2 30.9(H) 22.0 - 29.0 mmol/L 08/30/2025 4:53 AM [facility] Calcium 7.9(L) 8.6 - 10.5 mg/dL 08/30/2025 4:53 AM [facility] Total Protein 5.0(L) 6.0 - 8.5 g/dL 08/30/2025 4:53 AM [facility] Albumin 2.9(L) 3.5 - 5.2 g/dL 08/30/2025 4:53 AM [facility] ALT (SGPT) 199(H) 1 - 41 U/L 08/30/2025 4:53 AM [facility] AST (SGOT) 144(H) 1 - 40 U/L 08/30/2025 4:53 AM [facility] Alkaline Phosphatase 93 39 - 117 U/L 08/30/2025 4:53 AM [facility] Total Bilirubin 0.7 0.0 - 1.2 mg/dL 08/30/2025 4:53 AM [facility] Globulin 2.1 gm/dL 08/30/2025 4:53 AM [facility] Comment:Calculated Result A/G Ratio 1.4 g/dL 08/30/2025 4:53 AM [facility] BUN/Creatinine Ratio 30.3(H) 7.0 - 25.0 08/30/2025 4:53 AM [facility] Anion Gap 8.1 5.0 - 15.0 mmol/L 08/30/2025 4:53 AM [facility] eGFR 61.3 >60.0 mL/min/1.7 3 08/30/2025 4:53 AM [facility] Blood Line / Unknown 08/30/2025 4: 03 AM EST 08/30/2025 4:30 AM EST [facility] - 08/30/2025 4:53 AM EST [...] MD LAB BLOOD ORDERABLES Final Re sult [facility]
[address] [place] [address], * (ABNORMAL) CBC (No Diff) (08/30/2025 4:03 AM EST) WBC 12.35(H) 3.40 - 10.80 10*3/mm3 08/30/2025 4:37 AM EST [facility] RBC 2.83(L) 4.14 - 5.80 10*6/mm3 08/30/2025 4:37 AM EST [facility] Hemoglobin 8.3(L) 13.0 - 17.7 g/dL 08/30/2025 4:37 AM EST [facility] Hematocrit 26.5(L) 37.5 - 51.0 % 08/30/2025 4:37 AM EST [facility] MCV 93.6 79.0 - 97.0 fL 08/30/2025 4:37 AM EST [facility] MCH 29.3 26.6 - 33.0 pg 08/30/2025 4:37 AM EST [facility] MCHC 31.3(L) 31.5 - 35.7 g/dL 08/30/2025 4:37 AM EST [facility] RDW 14.7 12.3 - 15.4 % 08/30/2025 4:37 AM [facility] RDW-SD 50.5 37.0 - 54.0 fl 08/30/2025 4:37 AM [facility] MPV 10.6 6.0 - 12.0 fL 08/30/2025 4:37 AM [facility] Platelets 96(L) 140 - 450 10*3/mm3 08/30/2025 4:37 AM [facility] Blood Line / Unknown 08/30/2025 4: 03 AM EST 08/30/2025 4:31 AM EST Hermes Jaramillo MD LAB BLOOD ORDERABLES Final Re sult [facility]
[address] [place] [address], * (ABNORMAL) Magnesium (08/30/2025 4:03 AM EST) Magnesium 2.7(H) 1.6 - 2.4 mg/dL 08/30/2025 4:53 AM EST [facility] Blood Line / Unknown 08/30/2025 4: 03 AM EST 08/30/2025 4:30 AM EST Brian Hughes MD LAB BLOOD ORDERABLES Final R esult [facility]
[address] [place] [address], * POC Glucose Once (08/29/2025 11:05 PM EST) Glucose 101 70 - 130 mg/dL 08/29/2025 11:07 PM [facility] Comment:Serial Number: [id number]: [id number] Blood 08/29/2025 11:0 5 PM EST 08/29/2025 11:07 PM EST Tellorosi Mckee DO POINT OF CARE TEST ORDERABLES Final Result [facility]
[address] [place] [address], [place] [phone] * POC Glucose Once (08/29/2025 5:50 PM EST) [facility] Glucose 112 70 - 130 mg/dL 08/29/2025 6:02 PM EST [facility] Comment:Serial Number: [id number]: [id number] Blood 08/29/2025 5:50 PM EST 08/29/2025 6:02 PM EST Tellorosi Evan Mckee DO POINT OF CARE TEST ORDERABLES Final Result Performing Organization Address City/[facility] Co de Phone Number [facility] [place] [address], [place] [phone] * (ABNORMAL) Blood Gas, Arterial With Co-Ox (08/29/2025 5:10 PM EST) [facility] Site Arterial Line 08/29/2025 5:10 PM EST [facility] Andrey's Test N/A 08/29/2025 5:10 PM EST [facility] pH, Arterial 7.490(H) 7.350 - 7.450 pH units 08/29/2025 5:10 PM EST [facility] Comment:83 Value above refer ence range pCO2, Arterial 31.6(L) 35.0 - 45.0 mm Hg 08/29/2025 5:10 PM EST [facility] Comment:84 Value below refer ence range pO2, Arterial 145.0(H) 83.0 - 108.0 mm Hg 08/29/2025 5:10 PM EST [facility] HCO3, Arterial 24.0 20.0 - 26.0 mmol/L 08/29/2025 5:10 PM [facility] Base Excess, Arterial 0.8 0.0 - 2.0 mmol/L 08/29/2025 5:10 PM [facility] Hemoglobin, Blood Gas 7.5(L) 13.5 - 17.5 g/dL 08/29/2025 5:10 PM [facility] Comment:84 Value below refer ence range Hematocrit, Blood Gas 23.1(L) 38.0 - 51.0 % 08/29/2025 5:10 PM [facility] Oxyhemoglobin 98.7 94 - 99 % 08/29/2025 5:10 PM [facility] Methemoglobin 0.30 0.00 - 1.50 % 08/29/2025 5:10 PM [facility] Carboxyhemoglobin 1.1 0 - 2 % 025 5:10 PM [facility] CO2 Content 25.0 22 - 33 mmol/L 08/29/2025 5:10 PM [facility] Temperature 37.0 08/29/2025 5:10 PM [facility] Barometric Pressure for Blood Gas 08/29/2025 5:10 PM [facility] Comment:N/A Modality Ventilator 08/29/2025 5:10 PM [facility] FIO2 40 % 08/29/2025 5:10 PM [facility] Ventilator Mode PS 5:10 PM [facility] Rate 0 Breaths/ minute 08/29/2025 5:10 PM [facility] PEEP 6.0 08/29/2025 5:10 PM [facility] PSV 10.0 cmH2O 08/29/2025 5:10 PM [facility] PIP 0 cmH2O 08/29/2025 5:10 PM [facility] Comment:Meter: [id number] [employer] Development Carpenter: [id number] IPAP 0 cm H2O 08/29/2025 5:10 PM EST [facility] EPAP 0 cm H2O 08/29/2025 5:10 PM EST [facility] pH, Temp Corrected 7.490 pH Units 2024 5:10 PM EST [facility] pCO2, Temperature Corrected 31.6(L) 35 - 48 mm Hg 08/29/2025 5:10 PM EST [facility] pO2, Temperature Corrected 145(H) 83 - 108 mm Hg 08/29/2025 5:10 PM EST [facility] Arterial Blood 08/29/2025 5: 10 PM EST 08/29/2025 5:10 PM EST Cristian [facility] LAB BLOOD ORDERABLE S Final Result Performing Organization Address [facility] [place]/[facility] Co de Phone Number [facility]
[address] [place] [address] * (ABNORMAL) STAT Lactic Acid, Reflex (08/29/2025 4:18 PM EST) Lactate 2.3(HH) 0.5 - 2.0 mmol/L 08/29/2025 4:52 PM EST [facility] Comment:Falsely depressed re sults may occur on samples drawn from patients receiving N-Acetylcysteine (NAC) or Metamizole. Blood Line / Unknown 08/29/2025 4: 18 PM EST 08/29/2025 4:29 PM EST [facility] BLOOD ORDERABLE S Final Result Performing Organization Address City/[facility]/ZIP Co de Phone Number [facility]
[address] [place] [address], [place] [phone] * (ABNORMAL) STAT Lactic Acid, Reflex (08/29/2025 1:16 PM EST) Lactate 2.9(HH) 0.5 - 2.0 mmol/L 08/29/2025 1:55 PM EST [facility] Blood Line / Unknown 08/29/2025 1: 16 PM EST 08/29/2025 1:23 PM EST Cristian Mckee DO LAB BLOOD ORDERABLE S Final Result Performing Organization Address City/[facility]/ZIP Co de Phone Number [facility]
[address] [place] [address], * POC Glucose Once (08/29/2025 11:07 AM EST) Glucose 108 70 - 130 mg/dL 08/29/2025 11:11 AM EST [facility] Comment:Serial Number: [id number]: [id number] Blood 08/29/2025 11:0 7 AM EST 08/29/2025 11:11 AM EST Cristian Mckee DO POINT OF CARE TEST ORDERABLES Final Result Performing Organization Address [facility] [place]/[facility] Co de Phone Number [facility]
[address] [place] [address], * (ABNORMAL) STAT Lactic Acid, Reflex (08/29/2025 9:42 AM EST) Lactate 3.7(HH) 0.5 - 2.0 mmol/L 08/29/2025 10:35 AM EST [facility] Comment:Falsely depressed re sults may occur on samples drawn from patients receiving N-Acetylcysteine (NAC) or Metamizole. Blood Line / Unknown 08/29/2025 9: 42 AM EST 08/29/2025 10:10 AM EST Cristian Mckee DO LAB BLOOD ORDERABLE S Final Result Performing Organization Address City/[facility]/ZIP Co de Phone Number [facility]
[address] [place] [address], [place] [phone] * POC Glucose Once (08/29/2025 6:16 AM EST) Pathologist [facility] Glucose 100 70 - 130 mg/dL 08/29/2025 6:19 AM EST [facility] Comment:Serial Number: [id number]: [id number] Blood 08/29/2025 6:16 AM EST 08/29/2025 6:19 AM EST Cristian Mckee DO POINT OF CARE TEST ORDERABLES Final Result [facility]
[address] [place] [address], * (ABNORMAL) CBC (No Diff) (08/29/2025 6:07 AM EST) [facility] WBC 15.08(H) 3.40 - 10.80 10*3/mm3 08/29/2025 6:34 AM EST [facility] RBC 2.90(L) 4.14 - 5.80 10*6/mm3 08/29/2025 6:34 AM [facility] Hemoglobin 8.5(L) 13.0 - 17.7 g/dL 08/29/2025 6:34 AM [facility] Hematocrit 26.8(L) 37.5 - 51.0 % 08/29/2025 6:34 AM EST [facility] MCV 92.4 79.0 - 97.0 fL 08/29/2025 6:34 AM EST [facility] MCH 29.3 26.6 - 33.0 pg 08/29/2025 6:34 AM [facility] MCHC 31.7 31.5 - 35.7 g/dL 08/29/2025 6:34 AM [facility] RDW 15.1 12.3 - 15.4 % 08/29/2025 6:34 AM [facility] RDW-SD 50.7 37.0 - 54.0 fl 08/29/2025 6:34 AM EST [facility] MPV 10.4 6.0 - 12.0 fL 08/29/2025 6:34 AM EST [facility] Platelets 95(L) 140 - 450 10*3/mm3 08/29/2025 6:34 AM EST [facility] Blood Line / Unknown 08/29/2025 6: 07 AM EST 08/29/2025 6:13 AM EST Alma Rosa Lucas [employer] LAB BLOOD ORDERABLES Final Result [facility]
[address] [place] [address], * (ABNORMAL) Basic Metabolic Panel (08/29/2025 6:07 AM EST) Glucose 119(H) 65 - 99 mg/dL 08/29/2025 6:34 AM EST [facility] BUN 38.4(H) 8.0 - 23.0 mg/dL 08/29/2025 6:34 AM [facility] Creatinine 1.57(H) 0.76 - 1.27 mg/dL 08/29/2025 6:34 AM [facility] Sodium 146(H) 136 - 145 mmol/L 08/29/2025 6:34 AM EST [facility] Potassium 4.1 3.5 - 5.2 mmol/L 08/29/2025 6:34 AM [facility] Chloride 105 98 - 107 mmol/L 08/29/2025 6:34 AM EST [facility] CO2 26.0 22.0 - 29.0 mmol/L 08/29/2025 6:34 AM EST [facility] Calcium 7.9(L) 8.6 - 10.5 mg/dL 08/29/2025 6:34 AM EST [facility] BUN/Creatinine Ratio 24.5 7.0 - 25.0 08/29/2025 6:34 AM EST [facility] Anion Gap 15.0 5.0 - 15.0 mmol/L 08/29/2025 6:34 AM EST [facility] eGFR 42.7(L) >60.0 mL/min/1.7 3 08/29/2025 6:34 AM EST [facility] Blood Line / Unknown 08/29/2025 6: 07 AM EST 08/29/2025 6:13 AM EST Narrative [facility] - 08/29/2025 6:34 AM EST GFR [...] ORDERABLES Final R esult Performing Organization Address City/[facility]/ZIP Co de Phone Number [facility]
[address] [place] [address], * (ABNORMAL) Phosphorus (08/29/2025 6:07 AM EST) Phosphorus 5.2(H) 2.5 - 4.5 mg/dL 08/29/2025 6:34 AM EST [facility] Blood Line / Unknown 08/29/2025 6: 07 AM EST 08/29/2025 6:13 AM EST us Brian Hughes MD LAB BLOOD ORDERABLES Final R esult [facility]
[address] [place] [address], * (ABNORMAL) Lactic Acid, Plasma (08/29/2025 6:07 AM EST) Lactate 4.5(HH) 0.5 - 2.0 mmol/L 08/29/2025 6:38 AM EST [facility] Comment:Falsely depressed re sults may occur on samples drawn from patients receiving N-Acetylcysteine (NAC) or Metamizole. Blood Line / Unknown 08/29/2025 6: 07 AM EST 08/29/2025 6:13 AM EST Cristian Mckee DO LAB BLOOD ORDERABLE S Final Result Performing Organization Address [facility] [place]/[facility]/ZIP Co de Phone Number [facility]
[address] [place] [address], * Magnesium (08/29/2025 6:07 AM EST) Pathologist [facility] Magnesium 2.3 1.6 - 2.4 mg/dL 08/29/2025 6:38 AM EST [facility] Blood Line / Unknown 08/29/2025 6: 07 AM EST 08/29/2025 6:13 AM EST Brian Hughes MD LAB BLOOD ORDERABLES Final R esult Performing Organization Address [facility] [place]/[facility] Co de Phone Number [facility]
[address] [place] [address], * XR Chest 1 View (08/29/2025 3:58 AM EST) Anatomical Region Laterality Modality Body N/A Radiographic Radha ging 08/29/2025 4:13 AM EST Impressions 08/29/2025 4:14 AM EST 1.Slight increased infiltrate or atelectasis at the right lung base. 2.Persistent opacities in the left mid to lower lung with possible small left effusion. Electronically Signed: Luís Rodríguez MD 08/29/2025 4:14 AM EST Workstation ID: [id number] Narrative 08/29/2025 4:14 AM EST XR CHEST [...] MD 08/29/2025 4:14 AM EST Workstation ID: [id number] Alma Rosa Lucas APRN IMG DIAGNOSTIC IMAGING ORD ERABLES Final Result * (ABNORMAL) Blood Gas, Arterial With Co-Ox (08/29/2025 3:51 AM EST) Site Arterial Line 08/29/2025 3:52 AM EST [facility] Andrey's Test N/A 08/29/2025 3:52 AM EST [facility] pH, Arterial 7.407 7.350 - 7.450 pH units 08/29/2025 3:52 AM EST [facility] pCO2, Arterial 36.8 35.0 - 45.0 mm Hg 08/29/2025 3:52 AM EST [facility] pO2, Arterial 144.0(H) 83.0 - 108.0 mm Hg 08/29/2025 3:52 AM [facility] HCO3, Arterial 23.1 20.0 - 26.0 mmol/L 08/29/2025 3:52 AM [facility] Base Excess, Arterial -1.4(L) 0.0 - 2.0 mmol/L 08/29/2025 3:52 AM [facility] Hemoglobin, Blood Gas 8.0(L) 13.5 - 17.5 g/dL 08/29/2025 3:52 AM [facility] Comment:84 Value below refer ence range Hematocrit, Blood Gas 24.5(L) 38.0 - 51.0 % 08/29/2025 3:52 AM [facility] Oxyhemoglobin 98.5 94 - 99 % 08/29/2025 3:52 AM [facility] Methemoglobin 0.20 0.00 - 1.50 % 08/29/2025 3:52 AM [facility] Carboxyhemoglobin 1.1 0 - 2 % 025 3:52 AM [facility] CO2 Content 24.3 22 - 33 mmol/L 08/29/2025 3:52 AM [facility] Temperature 37.0 08/29/2025 3:52 AM [facility] Barometric Pressure for Blood Gas 08/29/2025 3:52 AM [facility] Comment:N/A Modality Ventilator 08/29/2025 3:52 AM [facility] FIO2 45 % 08/29/2025 3:52 AM [facility] Ventilator Mode VC+/AC 3:52 AM [facility] Set Tidal Volume 0.46 08/29/20 3:52 AM [facility] Rate 16 Breaths/ minute 08/29/2025 3:52 AM [facility] PEEP 10.0 08/29/2025 3:52 AM [facility] PIP 0 cmH2O 08/29/2025 3:52 AM [facility] Comment:Meter: [id number] [employer] Development Carpenter: [id number] IPAP 0 cm H2O 08/29/2025 3:52 AM EST [facility] EPAP 0 cm H2O 08/29/2025 3:52 AM [facility] pH, Temp Corrected 7.407 pH Units 2024 3:52 AM [facility] pCO2, Temperature Corrected 36.8 35 - 48 mm Hg 08/29/2025 3:52 AM [facility] pO2, Temperature Corrected 144(H) 83 - 108 mm Hg 08/29/2025 3:52 AM [facility] Arterial Blood 08/29/2025 3: 51 AM EST 08/29/2025 3:51 AM EST [facility] LAB BLOOD ORDERABLE S Final Result [facility]
[address] * (ABNORMAL) Lactic Acid, Plasma (08/29/2025 12:24 AM EST) Pathologist [facility] Lactate 5.1(HH) 0.5 - 2.0 mmol/L 08/29/2025 1:21 AM EST [facility] Comment:Falsely depressed re sults may occur on samples drawn from patients receiving N-Acetylcysteine (NAC) or Metamizole. Blood Line / Unknown 08/29/2025 12 :24 AM EST 08/29/2025 12:44 AM EST [facility] LAB BLOOD ORDERABLE S Final Result [facility]
[address] [phone] * POC Glucose Once (08/28/2025 10:58 PM EST) [facility] Glucose 109 70 - 130 mg/dL 08/28/2025 11:00 PM EST [facility] Comment:Serial Number: [id number] Blood 08/28/2025 10:5 8 PM EST 08/28/2025 11:00 PM EST Cristian Mckee DO POINT OF CARE TEST ORDERABLES Final Result [facility]
[address] [place] [address], * (ABNORMAL) Blood Gas, Arterial With Co-Ox (08/28/2025 8:04 PM EST) Pathologist [facility] Site Arterial Line 08/28/2025 8:04 PM [facility] Andrey's Test N/A 08/28/2025 8:04 PM [facility] pH, Arterial 7.408 7.350 - 7.450 pH units 08/28/2025 8:04 PM [facility] pCO2, Arterial 37.6 35.0 - 45.0 mm Hg 08/28/2025 8:04 PM [facility] pO2, Arterial 157.0(H) 83.0 - 108.0 mm Hg 08/28/2025 8:04 PM [facility] HCO3, Arterial 23.7 20.0 - 26.0 mmol/L 08/28/2025 8:04 PM [facility] Base Excess, Arterial -0.8(L) 0.0 - 2.0 mmol/L 08/28/2025 8:04 PM [facility] Hemoglobin, Blood Gas 8.3(L) 13.5 - 17.5 g/dL 08/28/2025 8:04 PM [facility] Comment:84 Value below refer ence range Hematocrit, Blood Gas 25.3(L) 38.0 - 51.0 % 08/28/2025 8:04 PM [facility] Oxyhemoglobin 98.6 94 - 99 % 08/28/2025 8:04 PM [facility] Methemoglobin 0.30 0.00 - 1.50 % 08/28/2025 8:04 PM [facility] Carboxyhemoglobin 1.1 0 - 2 % 025 8:04 PM [facility] CO2 Content 24.9 22 - 33 mmol/L 08/28/2025 8:04 PM [facility] Temperature 37.0 08/28/2025 8:04 PM [facility] Barometric Pressure for Blood Gas 08/28/2025 8:04 PM [facility] Comment:N/A Modality Ventilator 08/28/2025 8:04 PM [facility] FIO2 45 % 08/28/2025 8:04 PM [facility] Ventilator Mode VC+/AC 8:04 PM [facility] Set Tidal Volume 0.46 08/28/20 25 8:04 PM [facility] Rate 16 Breaths/ minute 08/28/2025 8:04 PM [facility] PEEP 10.0 08/28/2025 8:04 PM [facility] PIP 0 cmH2O 08/28/2025 8:04 PM [facility] Comment:Meter: [id number] Product Development Carpenter: [id number] IPAP 0 cm H2O 08/28/2025 8:04 PM [facility] EPAP 0 cm H2O 08/28/2025 8:04 PM [facility] pH, Temp Corrected 7.408 pH Units 2024 8:04 PM [facility] pCO2, Temperature Corrected 37.6 35 - 48 mm Hg 08/28/2025 8:04 PM [facility] pO2, Temperature Corrected 157(H) 83 - 108 mm Hg 08/28/2025 8:04 PM EST [facility] Arterial Blood 08/28/2025 8: 04 PM EST 08/28/2025 8:04 PM EST us Cristian Mckee DO LAB BLOOD ORDERABLE S Final Result Performing Organization Address [facility] [place]/[facility] Co de Phone Number [facility]
[address] [place] [address] * (ABNORMAL) Lactic Acid, Plasma (08/28/2025 7:18 PM EST) Lactate 5.7(HH) 0.5 - 2.0 mmol/L 08/28/2025 7:58 PM EST [facility] Comment:Falsely depressed re sults may occur on samples drawn from patients receiving N-Acetylcysteine (NAC) or Metamizole. Blood Line / Unknown 08/28/2025 7: 18 PM EST 08/28/2025 7:33 PM EST Cristian Mckee DO LAB BLOOD ORDERABLE S Final Result Performing Organization Address [facility] [place]/[facility] Co de Phone Number [facility]
[address] [place] [address] * POC Glucose Once (08/28/2025 5:56 PM EST) Glucose 113 70 - 130 mg/dL 08/28/2025 5:59 PM EST [facility] Comment:Serial Number: [id number]: [id number] Blood 08/28/2025 5:56 PM EST 08/28/2025 5:59 PM EST Cristian Mckee DO POINT OF CARE TEST ORDERABLES Final Result Performing Organization Address City/[facility] Co de Phone Number [facility]
[address] [place], [place] [id number], * (ABNORMAL) Blood Gas, Arterial With Co-Ox (08/28/2025 2:14 PM EST) [facility] Site Arterial Line 08/28/2025 2:16 PM EST [facility] Andrey's Test N/A 08/28/2025 2:16 PM EST [facility] pH, Arterial 7.312(L) 7.350 - 7.450 pH units 08/28/2025 2:16 PM EST [facility] Comment:84 Value below refer ence range pCO2, Arterial 44.7 35.0 - 45.0 mm Hg 08/28/2025 2:16 PM EST [facility] pO2, Arterial 161.0(H) 83.0 - 108.0 mm Hg 08/28/2025 2:16 PM EST [facility] HCO3, Arterial 22.6 20.0 - 26.0 mmol/L 08/28/2025 2:16 PM EST [facility] Base Excess, Arterial -3.5(L) 0.0 - 2.0 mmol/L 08/28/2025 2:16 PM EST [facility] Hemoglobin, Blood Gas 9.1(L) 13.5 - 17.5 g/dL 08/28/2025 2:16 PM EST [facility] Comment:84 Value below refer ence range Hematocrit, Blood Gas 27.8(L) 38.0 - 51.0 % 08/28/2025 2:16 PM EST [facility] Oxyhemoglobin 98.3 94 - 99 % 08/28/2025 2:16 PM EST [facility] Methemoglobin 0.60 0.00 - 1.50 % 08/28/2025 2:16 PM EST [facility] Carboxyhemoglobin 1.0 0 - 2 % 025 2:16 PM EST [facility] CO2 Content 24.0 22 - 33 mmol/L 08/28/2025 2:16 PM EST [facility] Temperature 37.0 08/28/2025 2:16 PM EST [facility] Barometric Pressure for Blood Gas 08/28/2025 2:16 PM EST [facility] Comment:N/A Modality Ventilator 08/28/2025 2:16 PM EST [facility] FIO2 60 % 08/28/2025 2:16 PM EST [facility] Ventilator Mode VC+/AC 2:16 PM EST [facility] Set Tidal Volume 460 08/28/20 2:16 PM EST [facility] Set Mech Resp Rate 16 2024 2:16 PM EST [facility] Rate 16 Breaths/ minute 08/28/2025 2:16 PM EST [facility] Comment:Meter: [id number] Product Development Carpenter: [id number] PEEP 10.0 08/28/2025 2:16 PM EST [facility] pH, Temp Corrected 7.312 pH Units 2024 2:16 PM EST [facility] pCO2, Temperature Corrected 44.7 35 - 48 mm Hg 08/28/2025 2:16 PM EST [facility] pO2, Temperature Corrected 161(H) 83 - 108 mm Hg 08/28/2025 2:16 PM EST [facility] Arterial Blood 08/28/2025 2: 14 PM EST 08/28/2025 2:15 PM EST us Cristian Mckee DO LAB BLOOD ORDERABLE S Final Result [facility]
[address] [place] [address], * POC Glucose Once (08/28/2025 11:09 AM EST) Glucose 89 70 - 130 mg/dL 08/28/2025 11:12 AM EST [facility] Comment:Serial Number: [id number]: [id number] Blood 08/28/2025 11:0 9 AM EST 08/28/2025 11:12 AM EST Cristian Mckee DO POINT OF CARE TEST ORDERABLES Final Result [facility]
[address] [place] [address], * XR Abdomen KUB (08/28/2025 10:13 AM EST) Anatomical Region Laterality Modality Body, Abdomen N/A Radiographic Radha ging 08/28/2025 10:5 3 AM EST Impressions 08/28/2025 10:53 AM EST Impression: NG tube tip overlies the mid body of the stomach. Electronically Signed: Stephen Toussaint MD 08/28/2025 10:53 AM EST Workstation ID: [id number] Narrative 08/28/2025 10:53 AM EST XR ABDOMEN [...] MD 08/28/2025 10:53 AM EST Workstation ID: [id number] Hermes Jaramillo MD IMG DIAGNOSTIC IMAGING ORDERA [...] MD 08/28/2025 11:08 AM EST Workstation ID: [id number] Narrative 08/28/2025 11:08 AM EST XR CHEST [...] Signed: Stephen Toussaint MD 08/28/2025 11:08 AM [facility] Workstation ID: [id number] us Cristian Allenbella DO IMG DIAGNOSTIC IMAG ING ORDERABLES Final Result * (ABNORMAL) Blood Gas, Arterial With Co-Ox (08/28/2025 9:58 AM EST) Site Arterial Line 08/28/2025 10:00 AM [facility] Andrey's Test N/A 08/28/2025 10:00 AM [facility] pH, Arterial 7.210(LL) 7.350 - 7.450 pH units 08/28/2025 10:00 AM [facility] Comment:85 Value below criti valentín limit pCO2, Arterial 45.7(H) 35.0 - 45.0 mm Hg 08/28/2025 10:00 AM [facility] Comment:83 Value above refer ence range pO2, Arterial 316.0(H) 83.0 - 108.0 mm Hg 08/28/2025 10:00 AM [facility] HCO3, Arterial 18.3(L) 20.0 - 26.0 mmol/L 08/28/2025 10:00 AM [facility] Base Excess, Arterial -9.1(L) 0.0 - 2.0 mmol/L 08/28/2025 10:00 AM [facility] Hemoglobin, Blood Gas 8.8(L) 13.5 - 17.5 g/dL 08/28/2025 10:00 AM [facility] Comment:84 Value below refer ence range Hematocrit, Blood Gas 26.9(L) 38.0 - 51.0 % 08/28/2025 10:00 AM [facility] Oxyhemoglobin 98.6 94 - 99 % 08/28/2025 10:00 AM [facility] Methemoglobin 0.50 0.00 - 1.50 % 08/28/2025 10:00 AM [facility] Carboxyhemoglobin 1.2 0 - 2 % 025 10:00 AM [facility] CO2 Content 19.7(L) 22 - 33 mmol/L 08/28/2025 10:00 AM [facility] Temperature 37.0 08/28/2025 10:00 AM [facility] Barometric Pressure for Blood Gas 08/28/2025 10:00 AM [facility] Comment:N/A Modality Ventilator 08/28/2025 10:00 AM [facility] FIO2 100 % 08/28/2025 10:00 AM [facility] Ventilator Mode VC+/AC 10:00 AM [facility] Set Tidal Volume 460 08/28/20 10:00 AM [facility] Set Mech Resp Rate 16 2024 10:00 AM [facility] Rate 16 Breaths/ minute 08/28/2025 10:00 AM [facility] Comment:Meter: [id number] Product Development Carpenter: [id number] PEEP 5.0 08/28/2025 10:00 AM [facility] Notified Who LANCE HUDSON 08/28/2025 10:00 AM [facility] Notified By [id number] 08/28/2025 10:00 AM [facility] Notified Time 08/28/2025 10:00 08/28/2025 10:00 AM [facility] pH, Temp Corrected 7.210 pH Units 2024 10:00 AM [facility] pCO2, Temperature Corrected 45.7 35 - 48 mm Hg 08/28/2025 10:00 AM [facility] pO2, Temperature Corrected 316(H) 83 - 108 mm Hg 08/28/2025 10:00 AM [facility] Arterial Blood 08/28/2025 9: 58 AM EST 08/28/2025 9:59 AM EST us Cristian Holtlars ZURITA LAB BLOOD ORDERABLE S Final Result [facility]
[address] [place] [address], [place] * (ABNORMAL) Manual Differential (08/28/2025 9:55 AM EST) Neutrophil % 65.0 42.7 - 76.0 % 08/28/2025 10:49 PM EST [facility] Lymphocyte % 9.0(L) 19.6 - 45.3 % 08/28/2025 10:49 PM EST [facility] Monocyte % 2.0(L) 5.0 - 12.0 % 08/28/2025 10:49 PM EST [facility] Eosinophil % 0.0(L) 0.3 - 6.2 % 08/28/2025 10:49 PM EST [facility] Basophil % 0.0 0.0 - 1.5 % 08/28/2025 10:49 PM EST [facility] Bands % 23.0(H) 0.0 - 5.0 % 08/28/2025 10:49 PM EST [facility] Atypical Lymphocyte % 1.0 0.0 - 5.0 % 08/28/2025 10:49 PM EST [facility] Neutrophils Absolute 26.36(H) 1.70 - 7.00 10*3/mm3 08/28/2025 10:49 PM EST [facility] Lymphocytes Absolute 3.00 0.70 - 3.10 10*3/mm3 08/28/2025 10:49 PM EST [facility] Monocytes Absolute 0.60 0.10 - 0.90 10*3/mm3 08/28/2025 10:49 PM EST [facility] Eosinophils Absolute 0.00 0.00 - 0.40 10*3/mm3 08/28/2025 10:49 PM EST [facility] Basophils Absolute 0.00 0.00 - 0.20 10*3/mm3 08/28/2025 10:49 PM EST [facility] RBC Morphology Normal Normal 08/28/2025 10:49 PM EST [facility] Dohle Bodies Present None Seen 08/28/2025 10:49 PM EST [facility] Platelet Morphology Normal Normal 08/28/2025 10:49 PM EST [facility] Blood Line / Unknown 08/28/2025 9: 55 AM EST 08/28/2025 10:09 AM EST Cristian Mckee LAB BLOOD ORDERABLE S Final Result [facility]
[address] [place] [address], * (ABNORMAL) CBC Auto Differential (08/28/2025 9:55 AM EST) WBC 29.95(HH) 3.40 - 10.80 10*3/mm3 08/28/2025 10:49 PM EST [facility] RBC 2.33(L) 4.14 - 5.80 10*6/mm3 08/28/2025 10:49 PM [facility] Hemoglobin 7.2(L) 13.0 - 17.7 g/dL 08/28/2025 10:49 PM [facility] Hematocrit 23.2(L) 37.5 - 51.0 % 08/28/2025 10:49 PM [facility] MCV 99.6(H) 79.0 - 97.0 fL 08/28/2025 10:49 PM EST [facility] MCH 30.9 26.6 - 33.0 pg 08/28/2025 10:49 PM EST [facility] MCHC 31.0(L) 31.5 - 35.7 g/dL 08/28/2025 10:49 PM [facility] RDW 14.8 12.3 - 15.4 % 08/28/2025 10:49 PM EST [facility] RDW-SD 53.8 37.0 - 54.0 fl 08/28/2025 10:49 PM EST [facility] MPV 10.4 6.0 - 12.0 fL 08/28/2025 10:49 PM [facility] Platelets 137(L) 140 - 450 10*3/mm3 08/28/2025 10:49 PM EST [facility] Blood Line / Unknown 08/28/2025 9: 55 AM EST 08/28/2025 10:09 AM EST [facility] - 08/28/2025 10:49 PM EST The previously reported component NRBC is no longer being reported. Previous result was 0.0 /100 WBC (Reference Range: 0.0-0.2 /100 WBC) on 08/28/2025 at 2222 EST. Cristian Mckee DO LAB BLOOD ORDERABLE S Final Result [facility]
[address] [place] [address], * (ABNORMAL) Hepatic Function Panel (08/28/2025 9:55 AM EST) Total Protein 5.2(L) 6.0 - 8.5 g/dL 08/28/2025 10:25 PM EST [facility] Albumin 3.5 3.5 - 5.2 g/dL 08/28/2025 10:25 PM [facility] ALT (SGPT) 234(H) 1 - 41 U/L 08/28/2025 10:25 PM [facility] AST (SGOT) 259(H) 1 - 40 U/L 08/28/2025 10:25 PM [facility] Alkaline Phosphatase 71 39 - 117 U/L 08/28/2025 10:25 PM EST [facility] Total Bilirubin 0.8 0.0 - 1.2 mg/dL 08/28/2025 10:25 PM EST [facility] Bilirubin, Direct 0.6(H) 0.0 - 0.3 mg/dL 08/28/2025 10:25 PM EST [facility] Bilirubin, Indirect 0.2 mg/dL 08/28/2025 10:25 PM EST [facility] Blood Line / Unknown 08/28/2025 9: 55 AM EST 08/28/2025 10:09 AM EST Brian Hughes MD LAB BLOOD ORDERABLES Final R esult Performing Organization Address [facility] de Phone Number [facility]
[address] [place] [address], * (ABNORMAL) Lactic Acid, Plasma (08/28/2025 9:55 AM EST) Lactate 10.4(HH) 0.5 - 2.0 mmol/L 08/28/2025 10:38 AM EST [facility] Comment:Falsely depressed re sults may occur on samples drawn from patients receiving N-Acetylcysteine (NAC) or Metamizole. Blood Line / Unknown 08/28/2025 9: 55 AM EST 08/28/2025 10:09 AM EST Hermes Jaramillo MD LAB BLOOD ORDERABLES Final Re sult Performing Organization Address [facility] de Phone Number [facility]
[address] [place] [address], * (ABNORMAL) CBC (No Diff) (08/28/2025 9:55 AM EST) WBC 29.84(H) 3.40 - 10.80 10*3/mm3 08/28/2025 10:16 AM EST [facility] RBC 2.82(L) 4.14 - 5.80 10*6/mm3 08/28/2025 10:16 AM EST [facility] Hemoglobin 8.3(L) 13.0 - 17.7 g/dL 08/28/2025 10:16 AM EST [facility] Hematocrit 26.9(L) 37.5 - 51.0 % 08/28/2025 10:16 AM EST [facility] MCV 95.4 79.0 - 97.0 fL 08/28/2025 10:16 AM EST [facility] MCH 29.4 26.6 - 33.0 pg 08/28/2025 10:16 AM EST [facility] MCHC 30.9(L) 31.5 - 35.7 g/dL 08/28/2025 10:16 AM [facility] RDW 14.5 12.3 - 15.4 % 08/28/2025 10:16 AM [facility] RDW-SD 50.2 37.0 - 54.0 fl 08/28/2025 10:16 AM [facility] MPV 10.0 6.0 - 12.0 fL 08/28/2025 10:16 AM [facility] Platelets 136(L) 140 - 450 10*3/mm3 08/28/2025 10:16 AM [facility] Blood Line / Unknown 08/28/2025 9: 55 AM EST 08/28/2025 10:09 AM EST Hermes Jaramillo MD LAB BLOOD ORDERABLES Final Re sult [facility]
[address] [place] [address], * (ABNORMAL) Basic Metabolic Panel (08/28/2025 9:55 AM EST) Glucose 112(H) 65 - 99 mg/dL 08/28/2025 10:35 AM EST [facility] BUN 31.2(H) 8.0 - 23.0 mg/dL 08/28/2025 10:35 AM EST [facility] Creatinine 1.72(H) 0.76 - 1.27 mg/dL 08/28/2025 10:35 AM EST [facility] Sodium 145 136 - 145 mmol/L 08/28/2025 10:35 AM [facility] Potassium 3.7 3.5 - 5.2 mmol/L 08/28/2025 10:35 AM EST [facility] Chloride 106 98 - 107 mmol/L 08/28/2025 10:35 AM EST [facility] CO2 18.3(L) 22.0 - 29.0 mmol/L 08/28/2025 10:35 AM [facility] Calcium 9.2 8.6 - 10.5 mg/dL 08/28/2025 10:35 AM [facility] BUN/Creatinine Ratio 18.1 7.0 - 25.0 08/28/2025 10:35 AM [facility] Anion Gap 20.7(H) 5.0 - 15.0 mmol/L 08/28/2025 10:35 AM [facility] eGFR 38.2(L) >60.0 mL/min/1.7 3 08/28/2025 10:35 AM [facility] Blood Line / Unknown 08/28/2025 9: 55 AM EST 08/28/2025 10:09 AM EST [facility] - 08/28/2025 10:35 AM EST GFR [...] MD LAB BLOOD ORDERABLES Final Re sult [facility]
[address] [id number], * POC Glucose Once (08/28/2025 9:34 AM EST) Glucose 99 70 - 130 mg/dL 08/28/2025 11:00 AM EST [facility] Comment:Serial Number: [id number] Blood 08/28/2025 9:34 AM EST 08/28/2025 11:00 AM EST Kyleadama Evanargentina Mckee DO POINT OF CARE TEST ORDERABLES Final Result [facility]
[address] [place] [address], * [place] Cholangiogram Operative (08/28/2025 8:46 AM EST) Anatomical Region Laterality Modality Abdomen, Other Radio Fluoroscop y 08/28/2025 3:22 PM EST Impressions 08/28/2025 3:24 PM EST Impression: Images saved during intraoperative cholangiogram, see operative report for further detail. Electronically Signed: Brian Crandall MD 08/28/2025 3:24 PM EST Workstation ID: [id number] Narrative 08/28/2025 3:24 PM EST [place] CHOLANGIOGRAM [...] MD 08/28/2025 3:24 PM EST Workstation ID: [id number] Herems Jaramillo MD IMG FLUOROSCOPY ORDERABLES Fi nal Result * (ABNORMAL) POC Surgery Labs (08/28/2025 8:43 AM EST) Ionized Calcium 1.35(H) 1.15 - 1.30 mmol/L 08/28/2025 9:41 AM EST [facility] POC Potassium 3.5 3.5 - 4.9 mmol/L 08/28/2025 9:41 AM EST [facility] Sodium 142 138 - 146 mmol/L 08/28/2025 9:41 AM EST [facility] Total CO2 18(L) 24 - 29 mmol/L 08/28/2025 9:41 AM EST [facility] Hemoglobin 7.8(LL) 12.0 - 17.0 g/dL 08/28/2025 9:41 AM EST [facility] Hematocrit 23(L) 38 - 51 % 08/28/2025 9:41 AM EST [facility] pCO2, Arterial 44.8 35 - 45 mm Hg 08/28/2025 9:41 AM EST [facility] pO2, Arterial 340(H) 80 - 105 mmHg 08/28/2025 9:41 AM EST [facility] Comment:Serial Number: [id number] Base Excess -12.0000(L ) -5 - 5 mmol/L 08/28/2025 9:41 AM EST [facility] O2 Saturation, Arterial 100(H) 95 - 98 % 08/28/2025 9:41 AM EST [facility] pH, Arterial 7.18(L) 7.35 - 7.6 pH units 08/28/2025 9:41 AM EST [facility] HCO3, Arterial 16.5(L) 22 - 26 mmol/L 08/28/2025 9:41 AM EST [facility] Glucose 117 70 - 130 mg/dL 08/28/2025 9:41 AM EST [facility] Blood 08/28/2025 8:43 AM EST 08/28/2025 9:41 AM EST Cristian Mckee DO POINT OF CARE TEST ORDERABLES Final Result [facility]
[address] [place] [address], * Tissue Pathology Exam (08/28/2025 8:40 AM EST) Case Report Surgical Pathology Report Case: [id number] Authorizing Provider: Hermes Jaramillo MD Collected: 08/28/2025 08:40 AM Ordering Location: [facility] Received: 08/29/2025 07:43 AM OR Pathologist: Zach Arenas MD Specimen: Gallbladder, gallbladder 08/31/2025 10:47 AM EST [facility] Clinical Information Cholecystitis 08/31/2025 10:47 AM EST [facility] Final Diagnosis GALLBLADDER, CHOLECYSTECTOMY: Chronic cholecystitis. Reactive epithelial changes present; negative for dysplasia. Portion of lymph node negative for malignancy. 08/31/2025 10:47 AM EST [facility] at 1047 EST Gross Description 1. [...] mucosal fold is present within the fundus. Passenger Attendant sections are submitted as follows: 1A-en face cystic duct margin, neck, body, and fundus with mucosal fold 1B-possible disrupted lymph node. LDP Additional sections are submitted in blocks 1C-1G. LDP 08/30/2025 08/31/2025 10:47 AM [facility] Microscopic Description The slides are reviewed and demonstrate histopathologic features supporting the above rendered diagnosis. 08/31/2025 10:47 AM [facility] Tissue Gallbladder structure / Unknown 08/28/2025 8:40 AM EST 08/29/2025 7:43 AM EST us Hermes Jaramillo MD PATHOLOGY/CYTOLOGY ORDERABLES Final Result [facility]
[address] [place] [address], * (ABNORMAL) Blood Gas, Arterial With Co-Ox (08/28/2025 7:18 AM EST) Site Arterial Line 08/28/2025 7:21 AM [facility] Andrey's Test N/A 08/28/2025 7:21 AM [facility] pH, Arterial 7.273(L) 7.350 - 7.450 pH units 08/28/2025 7:21 AM [facility] Comment:84 Value below refer ence range pCO2, Arterial 31.2(L) 35.0 - 45.0 mm Hg 08/28/2025 7:21 AM [facility] Comment:84 Value below refer ence range pO2, Arterial 87.0 83.0 - 108.0 mm Hg 08/28/2025 7:21 AM [facility] HCO3, Arterial 14.4(L) 20.0 - 26.0 mmol/L 08/28/2025 7:21 AM [facility] Base Excess, Arterial -11.4(L) 0.0 - 2.0 mmol/L 08/28/2025 7:21 AM [facility] Hemoglobin, Blood Gas 8.6(L) 13.5 - 17.5 g/dL 08/28/2025 7:21 AM [facility] Comment:84 Value below refer ence range Hematocrit, Blood Gas 26.3(L) 38.0 - 51.0 % 08/28/2025 7:21 AM [facility] Oxyhemoglobin 95.6 94 - 99 % 08/28/2025 7:21 AM [facility] Methemoglobin 0.30 0.00 - 1.50 % 08/28/2025 7:21 AM [facility] Carboxyhemoglobin 1.5 0 - 2 % 025 7:21 AM [facility] CO2 Content 15.4(L) 22 - 33 mmol/L 08/28/2025 7:21 AM [facility] Temperature 37.0 08/28/2025 7:21 AM [facility] Barometric Pressure for Blood Gas 08/28/2025 7:21 AM [facility] Comment:N/A Modality Nasal Cannula 08/28/2025 7:21 AM [facility] FIO2 28 % 08/28/2025 7:21 AM [facility] Ventilator Mode 7:21 AM [facility] Comment:Meter: [id number] Product Development Carpenter: [id number] pH, Temp Corrected 7.273 pH Units 2024 7:21 AM [facility] pCO2, Temperature Corrected 31.2(L) 35 - 48 mm Hg 08/28/2025 7:21 AM EST [facility] pO2, Temperature Corrected 87.0 83 - 108 mm Hg 08/28/2025 7:21 AM EST [facility] Arterial Blood 08/28/2025 7: 18 AM EST 08/28/2025 7:20 AM EST us Linda Rubin MD LAB BLOOD ORDERABLES Final Resul t Performing Organization Address City/[facility] Co de Phone Number [facility]
[address] [place] [address], * (ABNORMAL) POC Glucose Once (08/28/2025 7:07 AM EST) Glucose 147(H) 70 - 130 mg/dL 08/28/2025 7:09 AM EST [facility] Comment:Serial Number: [id number]: [id number] Blood 08/28/2025 7:07 AM EST 08/28/2025 7:09 AM EST us Linda Rubin MD POINT OF CARE TEST ORDERABLES Fi nal Result Performing Organization Address City/[facility] de Phone Number [facility]
[address] [place] [address] * Type & Screen (08/28/2025 6:38 AM EST) ABO Type A 08/28/2025 7:40 AM EST [facility] RH type Positive 08/28/2025 7:40 AM EST [facility] Antibody Screen Negative 08/28/2025 7:40 AM EST [facility] T&S Expiration Date 08/31/2025 11:59:59 PM 08/28/2025 7:40 AM EST [facility] Blood Venipuncture / Unknown 08/28/2025 6:38 AM EST 08/28/2025 7:06 AM EST Alma Rosa Lucas APRN BLOOD BANK TEST ORDERABLES Edited Result - Final Performing Organization Address [facility] de Phone Number [facility]
[address] [place] [address], * Blood Culture - Blood, Blood, Arterial Line (08/28/2025 6:38 AM EST) Blood Culture No growth at 5 days 09/02/2025 7:00 AM EST [facility] Blood Arterial blood specimen / Unknown Venipuncture / Unknown 08/28/2025 6:38 AM EST 08/28/2025 6:53 AM EST Linda Rubin MD MICROBIOLOGY - GENERAL ORDERABLE S Final Result Performing Organization Address [facility] de Phone Number [facility]
[address] [place] [address], * ABO RH Specimen Verification (08/28/2025 6:13 AM EST) ABO Type A 08/28/2025 10:44 PM EST [facility] RH type Positive 08/28/2025 10:44 PM EST [facility] Blood Venipuncture / Unknown 08/28/2025 6:13 AM EST 08/28/2025 7:24 AM EST us Linda Rubin MD BLOOD BANK TEST ORDERABLES Final Result Performing Organization Address [facility] de Phone Number [facility]
[address] [place] [address], * (ABNORMAL) Manual Differential (08/28/2025 6:13 AM EST) Neutrophil % 58.0 42.7 - 76.0 % 08/28/2025 7:23 AM EST [facility] Lymphocyte % 2.0(L) 19.6 - 45.3 % 08/28/2025 7:23 AM [facility] Monocyte % 1.0(L) 5.0 - 12.0 % 08/28/2025 7:23 AM [facility] Eosinophil % 0.0(L) 0.3 - 6.2 % 08/28/2025 7:23 AM [facility] Basophil % 0.0 0.0 - 1.5 % 08/28/2025 7:23 AM [facility] Bands % 33.0(H) 0.0 - 5.0 % 08/28/2025 7:23 AM [facility] Metamyelocyte % 6.0(H) 0.0 - 0.0 % 08/28/2025 7:23 AM [facility] Neutrophils Absolute 38.34(H) 1.70 - 7.00 10*3/mm3 08/28/2025 7:23 AM [facility] Lymphocytes Absolute 0.84 0.70 - 3.10 10*3/mm3 08/28/2025 7:23 AM [facility] Monocytes Absolute 0.42 0.10 - 0.90 10*3/mm3 08/28/2025 7:23 AM [facility] Eosinophils Absolute 0.00 0.00 - 0.40 10*3/mm3 08/28/2025 7:23 AM [facility] Basophils Absolute 0.00 0.00 - 0.20 10*3/mm3 08/28/2025 7:23 AM [facility] nRBC 0.0 0.0 - 0.2 /100 WBC 08/28/2025 7:23 AM [facility] RBC Morphology Normal Normal 08/28/2025 7:23 AM [facility] WBC Morphology Normal Normal 08/28/2025 7:23 AM [facility] Platelet Morphology Normal Normal 08/28/2025 7:23 AM [facility] Blood Line / Unknown 08/28/2025 6: 13 AM EST 08/28/2025 6:32 AM EST Nesha Lopes MACHINE FILLER SHREDDER LAB BLOOD ORDERABLES Final Resul t Performing Organization Address [facility]/ZIP Co de Phone Number [facility]
[address] [place] [address], * Fibrinogen (08/28/2025 6:13 AM EST) Fibrinogen 289 203 - 567 mg/dL 08/28/2025 7:24 AM EST [facility] Blood Line / Unknown 08/28/2025 6: 13 AM EST 08/28/2025 6:33 AM EST Alma Rosa Lucas MACHINE FILLER SHREDDER LAB BLOOD ORDERABLES Final Result Performing Organization Address [facility] Phone Number [facility]
[address] [place] [address], * (ABNORMAL) Protime-INR (08/28/2025 6:13 AM EST) Protime 18.2(H) 12.2 - 15.3 Seconds 08/28/2025 6:55 AM EST [facility] INR 1.41(H) 0.89 - 1.12 08/28/2025 6:55 AM EST [facility] Blood Line / Unknown 08/28/2025 6: 13 AM EST 08/28/2025 6:33 AM EST Alma Rosa Lucas MACHINE FILLER SHREDDER LAB BLOOD ORDERABLES Final Result Performing Organization Address City/[facility]/ZIP Co de Phone Number [facility]
[address] [place] [address], * (ABNORMAL) STAT Lactic Acid, Reflex (08/28/2025 6:13 AM EST) Lactate 11.6(HH) 0.5 - 2.0 mmol/L 08/28/2025 7:07 AM EST [facility] Comment:Falsely depressed re sults may occur on samples drawn from patients receiving N-Acetylcysteine (NAC) or Metamizole. Blood Line / Unknown 08/28/2025 6: 13 AM EST 08/28/2025 6:33 AM EST Edilma Mike MD LAB BLOOD ORDERABLES Final Re sult Performing Organization Address [facility] [place]/[facility] Co de Phone Number [facility]
[address] [place] [address], * (ABNORMAL) Lipase (08/28/2025 6:13 AM EST) Lipase 80(H) 13 - 60 U/L 08/28/2025 7:08 AM EST [facility] Blood Line / Unknown 08/28/2025 6: 13 AM EST 08/28/2025 6:33 AM EST Hermes Jaramillo MD LAB BLOOD ORDERABLES Final Re sult Performing Organization Address [facility] [place]/[facility] de Phone Number [facility]
[address] [place] [address], * (ABNORMAL) Comprehensive Metabolic Panel (08/28/2025 6:13 AM EST) Glucose 67 65 - 99 mg/dL 08/28/2025 7:40 AM EST [facility] BUN 29.7(H) 8.0 - 23.0 mg/dL 08/28/2025 7:40 AM EST [facility] Creatinine 1.81(H) 0.76 - 1.27 mg/dL 08/28/2025 7:40 AM EST [facility] Sodium 147(H) 136 - 145 mmol/L 08/28/2025 7:40 AM EST [facility] Potassium 3.6 3.5 - 5.2 mmol/L 08/28/2025 7:40 AM [facility] Chloride 106 98 - 107 mmol/L 08/28/2025 7:40 AM [facility] CO2 15.5(L) 22.0 - 29.0 mmol/L 08/28/2025 7:40 AM [facility] Calcium 7.5(L) 8.6 - 10.5 mg/dL 08/28/2025 7:40 AM [facility] Total Protein 4.6(L) 6.0 - 8.5 g/dL 08/28/2025 7:40 AM [facility] Albumin 2.9(L) 3.5 - 5.2 g/dL 08/28/2025 7:40 AM [facility] ALT (SGPT) 235(H) 1 - 41 U/L 08/28/2025 7:40 AM [facility] AST (SGOT) 272(H) 1 - 40 U/L 08/28/2025 7:40 AM [facility] Alkaline Phosphatase 101 39 - 117 U/L 08/28/2025 7:40 AM [facility] Total Bilirubin 0.7 0.0 - 1.2 mg/dL 08/28/2025 7:40 AM [facility] Globulin 1.7 gm/dL 08/28/2025 7:40 AM [facility] Comment:Calculated Result A/G Ratio 1.7 g/dL 08/28/2025 7:40 AM [facility] BUN/Creatinine Ratio 16.4 7.0 - 25.0 08/28/2025 7:40 AM [facility] Anion Gap 25.5(H) 5.0 - 15.0 mmol/L 08/28/2025 7:40 AM [facility] eGFR 36.0(L) >60.0 mL/min/1.7 3 08/28/2025 7:40 AM [facility] Blood Line / Unknown 08/28/2025 6: 13 AM EST 08/28/2025 6:33 AM EST [facility] - 08/28/2025 7:40 AM EST [...] race as a factor us Nesha Lopes ANTWON LAB BLOOD ORDERABLES Final Resul t [facility]
[address] [place] [address], * (ABNORMAL) CBC Auto Differential (08/28/2025 6:13 AM EST) WBC 42.13(HH) 3.40 - 10.80 10*3/mm3 08/28/2025 7:23 AM EST [facility] RBC 3.05(L) 4.14 - 5.80 10*6/mm3 08/28/2025 7:23 AM [facility] Hemoglobin 9.2(L) 13.0 - 17.7 g/dL 08/28/2025 7:23 AM [facility] Hematocrit 28.9(L) 37.5 - 51.0 % 08/28/2025 7:23 AM EST [facility] MCV 94.8 79.0 - 97.0 fL 08/28/2025 7:23 AM EST [facility] MCH 30.2 26.6 - 33.0 pg 08/28/2025 7:23 AM [facility] MCHC 31.8 31.5 - 35.7 g/dL 08/28/2025 7:23 AM [facility] RDW 14.3 12.3 - 15.4 % 08/28/2025 7:23 AM [facility] RDW-SD 49.5 37.0 - 54.0 fl 08/28/2025 7:23 AM [facility] MPV 10.1 6.0 - 12.0 fL 08/28/2025 7:23 AM [facility] Platelets 183 140 - 450 10*3/mm3 08/28/2025 7:23 AM EST [facility] Blood Line / Unknown 08/28/2025 6: 13 AM EST 08/28/2025 6:32 AM EST [facility] - 08/28/2025 7:23 AM EST The previously reported component NRBC is no longer being reported. Previous result was 0.0 /100 WBC (Reference Range: 0.0-0.2 /100 WBC) on 08/28/2025 at 0709 EST. Nesha Lopes APRN LAB BLOOD ORDERABLES Final Resul t [facility]
[address] [place] [address], * (ABNORMAL) POC Glucose Once (08/28/2025 5:58 AM EST) [facility] Signature Glucose 69(L) 70 - 130 mg/dL 08/28/2025 6:00 AM EST [facility] Comment:Serial Number: [id number] Blood 08/28/2025 5:58 AM EST 08/28/2025 6:00 AM EST Librado Bangura MD POINT OF CARE TEST ORDERABLES F inal Result [facility]
[address] [place] [address], * XR Chest 1 View (08/28/2025 5:35 AM EST) Anatomical Region Laterality Modality Body N/A Radiographic Radha ging 08/28/2025 5:44 AM EST Impressions 08/28/2025 5:45 AM EST Impression: Right internal jugular CVC catheter with the tip in the proximal SVC. No pneumothorax. No acute cardiopulmonary process. Electronically Signed: Nena Encarnacion MD 08/28/2025 5:45 AM EST Workstation ID: [id number] Narrative 08/28/2025 5:45 AM EST XR CHEST [...] MD 08/28/2025 5:45 AM EST Workstation ID: [id number] us Alma Rosa Lucas APRN IMG DIAGNOSTIC IMAGING ORD ERABLES Final Result * [place] ARTL CATHJ/CANNULJ MNTR/TRANSFUSION SPX PRQ, HC INSERTION ARTERIAL CATH (08/28/2025 5:20 AM EST) Narrative Alma Rosa Lucas APRN - 08/28/2025 5:20 AM EST Alma Rosa Lucas APRN 08/28/2025 5:21 AM Insert Arterial Line Date/Time: 08/28/2025 5:20 AM Performed by: Alma Rosa Lucas APRN Authorized by: Alma Rosa Lucas APRN [place] Protocol: Verbal consent obtained?: Yes Risks and [...] time out verifies correct patient, procedure, equipment, respiratory support technician and site/side marked as required: Preparation: Preparation: [...] with no immediate complications Alma Rosa Lucas APRN IV THERAPY ORDERABLES Suzanna wright Result * [place] INSJ NON-TUNNELED CENTRAL VENOUS CATH AGE 3 [...] to verify the correct patient, procedure, equipment, respiratory support technician and site/side marked as required. Indications: vascular [...] with no immediate complications Alma Rosa Lucas APRN PROCEDURE/MINOR SURGICAL O RDERABLES Final Result * (ABNORMAL) Blood Gas, Venous With Co-Ox (08/28/2025 2:22 AM EST) Site Nurse/Dr Draw 08/28/2025 2:22 AM EST [facility] pH, Venous 7.299(L) 7.310 - 7.410 pH Units 08/28/2025 2:22 AM EST [facility] THER[facility] pCO2, Venous 36.1(L) 41.0 - 51.0 mm Hg 08/28/2025 2:22 AM [facility] Comment:84 Value below refer ence range pO2, Venous 52.1 27.0 - 53.0 mm Hg 08/28/2025 2:22 AM [facility] THERAPY HCO3, Venous 17.7(L) 22.0 - 28.0 mmol/L 08/28/2025 2:22 AM [facility] THERAPY Base Excess, Venous -8.0(L) -2.0 - 2.0 mmol/L 08/28/2025 2:22 AM [facility] Hemoglobin, Blood Gas 10.2(L) 13.5 - 17.5 g/dL 08/28/2025 2:22 AM [facility] Oxyhemoglobin Venous 84.3 % 06/2025 2:22 AM [facility] Methemoglobin Venous 0.5 % 06/2025 2:22 AM [facility] Carboxyhemoglobin Venous 1.4 % 08/28/2025 2:22 AM [facility] CO2 Content 18.8(L) 22 - 33 mmol/L 08/28/2025 2:22 AM [facility] TH[facility] Temperature 37.0 08/28/2025 2:22 AM [facility] Barometric Pressure for Blood Gas 08/28/2025 2:22 AM [facility] Comment:N/A Modality Nasal Cannula 08/28/2025 2:22 AM [facility] THERAP[facility] FIO2 26 % 08/28/2025 2:22 AM [facility] Rate 0 Breaths/ minute 08/28/2025 2:22 AM [facility]ER[facility] PIP 0 cmH2O 08/28/2025 2:22 AM [facility] Comment:Meter: [id number] Product Development Carpenter: [id number] IPAP 0 cm H2O 08/28/2025 2:22 AM [facility] THERAPY EPAP 0 cm H2O 08/28/2025 2:22 AM [facility] THERAP[facility] Venous Blood 08/28/2025 2:22 AM EST 08/28/2025 2:22 AM EST us Librado Bangura MD LAB BLOOD ORDERABLES Final Resu lt [facility]ER[facility]
[address] [id number], * ECG 12 Lead Rhythm Change (08/28/2025 [...] Confirmed By: Luís Ellis MD Alma Rosa Roseann Lucas MACHINE FILLER SHREDDER ECG ORDERABLES Final Resu lt ECG * Blood Culture - Blood, Hand, Left (08/28/2025 1:45 AM EST) Pathologist [facility] Blood Culture No growth at 5 days 09/02/2025 6:45 AM EST [facility] Blood Structure of left hand / Unknown Venipuncture / Unknown 08/28/2025 1:45 AM EST 08/28/2025 6:42 AM EST Linda Rubin MD MICROBIOLOGY - GENERAL ORDERABLE S Final Result [facility]
[address] [place] [address], * (ABNORMAL) Basic Metabolic Panel (08/28/2025 1:35 AM EST) Pathologist [facility] Glucose 78 65 - 99 mg/dL 08/28/2025 2:25 AM EST [facility] BUN 25.7(H) 8.0 - 23.0 mg/dL 08/28/2025 2:25 AM EST [facility] Creatinine 1.85(H) 0.76 - 1.27 mg/dL 08/28/2025 2:25 AM EST [facility] Sodium 143 136 - 145 mmol/L 08/28/2025 2:25 AM EST [facility] Potassium 3.7 3.5 - 5.2 mmol/L 08/28/2025 2:25 AM EST [facility] Chloride 106 98 - 107 mmol/L 08/28/2025 2:25 AM EST [facility] CO2 17.9(L) 22.0 - 29.0 mmol/L 08/28/2025 2:25 AM EST [facility] Calcium 7.6(L) 8.6 - 10.5 mg/dL 08/28/2025 2:25 AM EST [facility] BUN/Creatinine Ratio 13.9 7.0 - 25.0 08/28/2025 2:25 AM EST [facility] Anion Gap 19.1(H) 5.0 - 15.0 mmol/L 08/28/2025 2:25 AM EST [facility] eGFR 35.0(L) >60.0 mL/min/1.7 3 08/28/2025 2:25 AM EST [facility] Blood Line / Unknown 08/28/2025 1: 35 AM EST 08/28/2025 1:53 AM EST Narrative [facility] - 08/28/2025 2:25 AM EST GFR [...] MD LAB BLOOD ORDERABLES Final Resul t [facility]
[address] [place] [address], * (ABNORMAL) STAT Lactic Acid, Reflex (08/28/2025 1:35 AM EST) Lactate 8.0(HH) 0.5 - 2.0 mmol/L 08/28/2025 2:38 AM EST [facility] Comment:Falsely depressed re sults may occur on samples drawn from patients receiving N-Acetylcysteine (NAC) or Metamizole. Blood Line / Unknown 08/28/2025 1: 35 AM EST 08/28/2025 1:53 AM EST Edilma Mike MD LAB BLOOD ORDERABLES Final Re sult Performing Organization Address [facility] Co de Phone Number [facility]
[address] [place] [address], * Magnesium (08/28/2025 1:35 AM EST) [facility] Magnesium 1.8 1.6 - 2.4 mg/dL 08/28/2025 2:25 AM EST [facility] Blood Line / Unknown 08/28/2025 1: 35 AM EST 08/28/2025 1:53 AM EST Linda Rubin MD LAB BLOOD ORDERABLES Final Resul t Performing Organization Address [facility] Co de Phone Number [facility]
[address] [place] [address], * POC Glucose Once (08/27/2025 11:12 PM EST) [facility] Glucose 97 70 - 130 mg/dL 08/27/2025 11:14 PM EST [facility] Comment:Serial Number: [id number] Blood 08/27/2025 11:1 2 PM EST 08/27/2025 11:14 PM EST Librado Bangura MD POINT OF CARE TEST ORDERABLES F inal Result Performing Organization Address [facility] Co de Phone Number [facility]
[address] [place] [address], * (ABNORMAL) Blood Gas, Arterial With Co-Ox (08/27/2025 10:48 PM EST) [facility] Site Left Brachial 08/27/2025 10:49 PM EST [facility] Andrey's Test Positive 08/27/2025 10:49 PM EST [facility] pH, Arterial 7.278(L) 7.350 - 7.450 pH units 08/27/2025 10:49 PM [facility] Comment:84 Value below refer ence range pCO2, Arterial 32.9(L) 35.0 - 45.0 mm Hg 08/27/2025 10:49 PM [facility] Comment:84 Value below refer ence range pO2, Arterial 67.0(L) 83.0 - 108.0 mm Hg 08/27/2025 10:49 PM [facility] Comment:84 Value below refer ence range HCO3, Arterial 15.4(L) 20.0 - 26.0 mmol/L 08/27/2025 10:49 PM [facility] Base Excess, Arterial -10.4(L) 0.0 - 2.0 mmol/L 08/27/2025 10:49 PM [facility] Hemoglobin, Blood Gas 10.5(L) 13.5 - 17.5 g/dL 08/27/2025 10:49 PM [facility] Comment:84 Value below refer ence range Hematocrit, Blood Gas 32.2(L) 38.0 - 51.0 % 08/27/2025 10:49 PM [facility] Oxyhemoglobin 91.0(L) 94 - 99 % 08/27/2025 10:49 PM [facility] Comment:84 Value below refer ence range Methemoglobin 0.30 0.00 - 1.50 % 08/27/2025 10:49 PM [facility] Carboxyhemoglobin 1.4 0 - 2 % 10:49 PM [facility] CO2 Content 16.4(L) 22 - 33 mmol/L 08/27/2025 10:49 PM [facility] Temperature 37.0 08/27/2025 10:49 PM [facility] Barometric Pressure for Blood Gas 08/27/2025 10:49 PM [facility] Comment:N/A Modality Room Air 08/27/2025 10:49 PM [facility] FIO2 21 % 08/27/2025 10:49 PM [facility] Rate 0 Breaths/ minute 08/27/2025 10:49 PM [facility] PIP 0 cmH2O 08/27/2025 10:49 PM [facility] Comment:Meter: [id number] Product Development Carpenter: [id number] IPAP 0 cm H2O 08/27/2025 10:49 PM [facility] EPAP 0 cm H2O 08/27/2025 10:49 PM [facility] pH, Temp Corrected 7.278 pH Units 2024 10:49 PM [facility] pCO2, Temperature Corrected 32.9(L) 35 - 48 mm Hg 08/27/2025 10:49 PM [facility] pO2, Temperature Corrected 67.0(L) 83 - 108 mm Hg 08/27/2025 10:49 PM [facility] Arterial Blood 08/27/2025 10 :48 PM EST 08/27/2025 10:48 PM EST Librado Bangura MD LAB BLOOD ORDERABLES Final Resu lt Performing Organization Address City/[facility]/ZIP Co de Phone Number [facility]
[address] [place] [address] * Magnesium (08/27/2025 10:34 PM EST) Magnesium 1.9 1.6 - 2.4 mg/dL 08/28/2025 1:51 AM [facility] Blood Venipuncture / Unknown 08/27/2025 10:34 PM EST 08/27/2025 11:26 PM EST Linda Rubin MD LAB BLOOD ORDERABLES Final Resul t Performing Organization Address City/[facility]/ZIP Co de Phone Number [facility]
[address] [place] [address], * Hepatitis Panel, Acute (08/27/2025 10:34 PM EST) [facility] Hepatitis B Surface Ag Non-Reacti ve Non-Reacti ve 08/28/2025 12:05 AM EST [facility] Hep A IgM Non-Reacti ve Non-Reacti ve 08/28/2025 12:05 AM EST [facility] Hep B C IgM Non-Reacti ve Non-Reacti ve 08/28/2025 12:05 AM EST [facility] Hepatitis C Ab Non-Reacti ve Non-Reacti ve 08/28/2025 12:05 AM EST [facility] Blood Venipuncture / Unknown 08/27/2025 10:34 PM EST 08/27/2025 11:26 PM EST [facility] - 08/28/2025 12:05 AM EST Results may be falsely decreased if patient taking Biotin. us Hermes Jaramillo MD LAB BLOOD ORDERABLES Final Re sult [facility]
[address] [place] [address], * (ABNORMAL) High Sensitivity Troponin T 1Hr (08/27/2025 10:34 PM EST) [facility] HS Troponin T 34(H) <22 ng/L 08/27/2025 11:53 PM EST [facility] Troponin T Numeric Delta -5 ng/L 08/27/2025 11:53 PM EST [facility] Troponin T % Delta -13 Abnormal if >/= 20% 08/27/2025 11:53 PM EST [facility] Blood Venipuncture / Unknown 08/27/2025 10:34 PM EST 08/27/2025 11:26 PM EST [facility] - 08/27/2025 11:53 PM EST [...] ORDERABLES Final Resul t Performing Organization Address [facility] de Phone Number [facility]
[address] [place] [address], * (ABNORMAL) STAT Lactic Acid, Reflex (08/27/2025 10:34 PM EST) Lactate 7.6(HH) 0.5 - 2.0 mmol/L 08/28/2025 12:35 AM EST [facility] Comment:Falsely depressed re sults may occur on samples drawn from patients receiving N-Acetylcysteine (NAC) or Metamizole. Blood Venipuncture / Unknown 08/27/2025 10:34 PM EST 08/27/2025 11:26 PM EST Edilma Mike MD LAB BLOOD ORDERABLES Final Re sult Performing Organization Address [facility] de Phone Number [facility]
[address] [place] [address], * CT Abdomen Pelvis [...] MD 08/27/2025 10:25 PM EST Workstation ID: [id number] Narrative 08/27/2025 10:[address] ABDOMEN [...] MD 08/27/2025 10:25 PM EST Workstation ID: [id number] us Hermes Jaramillo MD IMG CT ORDERABLES Final Resul t * ECG [...] Confirmed By: Luz Marina Bob Nesha Lopes MACHINE FILLER SHREDDER ECG ORDERABLES Final Result ECG * Iron Profile + Ferritin (08/27/2025 7:43 PM EST) Iron 86 59 - 158 mcg/dL 08/27/2025 10:04 PM EST [facility] Iron Saturation (TSAT) 28 20 - 50 % 08/27/2025 10:04 PM EST [facility] Transferrin 209 200 - 360 mg/dL 08/27/2025 10:04 PM EST [facility] TIBC 311 298 - 536 mcg/dL 08/27/2025 10:04 PM EST [facility] Ferritin 160.00 30.00 - 400.00 ng/mL 08/27/2025 10:04 PM EST [facility] Blood Venipuncture / Unknown 08/27/2025 7:43 PM EST 08/27/2025 7:53 PM EST [facility] - 08/27/2025 10:04 PM EST Results may be falsely decreased if patient taking Biotin. Librado Bangura MD LAB BLOOD ORDERABLES Final Resu lt [facility]
[address] [place] [address], * (ABNORMAL) High Sensitivity Troponin T (08/27/2025 7:43 PM EST) HS Troponin T 39(H) <22 ng/L 08/27/2025 8:56 PM EST [facility] Blood Venipuncture / Unknown 08/27/2025 7:43 PM EST 08/27/2025 7:53 PM EST [facility] - 08/27/2025 8:56 PM EST [...] APRN LAB BLOOD ORDERABLES Final Resul t [facility]
[address] [place] [address], * (ABNORMAL) CBC Auto Differential (08/27/2025 7:43 PM EST) WBC 15.69(H) 3.40 - 10.80 10*3/mm3 08/27/2025 7:56 PM EST [facility] RBC 3.66(L) 4.14 - 5.80 10*6/mm3 08/27/2025 7:56 PM EST [facility] Hemoglobin 11.1(L) 13.0 - 17.7 g/dL 08/27/2025 7:56 PM EST [facility] Hematocrit 34.2(L) 37.5 - 51.0 % 08/27/2025 7:56 PM EST [facility] MCV 93.4 79.0 - 97.0 fL 08/27/2025 7:56 PM EST [facility] MCH 30.3 26.6 - 33.0 pg 08/27/2025 7:56 PM EST [facility] MCHC 32.5 31.5 - 35.7 g/dL 08/27/2025 7:56 PM EST [facility] RDW 13.5 12.3 - 15.4 % 08/27/2025 7:56 PM EST [facility] RDW-SD 46.2 37.0 - 54.0 fl 08/27/2025 7:56 PM EST [facility] MPV 9.2 6.0 - 12.0 fL 08/27/2025 7:56 PM [facility] Platelets 171 140 - 450 10*3/mm3 08/27/2025 7:56 PM [facility] Neutrophil % 93.0(H) 42.7 - 76.0 % 08/27/2025 7:56 PM [facility] Lymphocyte % 2.7(L) 19.6 - 45.3 % 08/27/2025 7:56 PM [facility] Monocyte % 3.1(L) 5.0 - 12.0 % 08/27/2025 7:56 PM [facility] Eosinophil % 0.0(L) 0.3 - 6.2 % 08/27/2025 7:56 PM [facility] Basophil % 0.2 0.0 - 1.5 % 08/27/2025 7:56 PM [facility] Immature Grans % 1.0(H) 0.0 - 0.5 % 08/27/2025 7:56 PM [facility] Neutrophils, Absolute 14.59(H) 1.70 - 7.00 10*3/mm3 08/27/2025 7:56 PM [facility] Lymphocytes, Absolute 0.43(L) 0.70 - 3.10 10*3/mm3 08/27/2025 7:56 PM [facility] Monocytes, Absolute 0.49 0.10 - 0.90 10*3/mm3 08/27/2025 7:56 PM [facility] Eosinophils, Absolute 0.00 0.00 - 0.40 10*3/mm3 08/27/2025 7:56 PM [facility] Basophils, Absolute 0.03 0.00 - 0.20 10*3/mm3 08/27/2025 7:56 PM [facility] Immature Grans, Absolute 0.15(H) 0.00 - 0.05 10*3/mm3 08/27/2025 7:56 PM [facility] nRBC 0.0 0.0 - 0.2 /100 WBC 08/27/2025 7:56 PM EST [facility] Blood Venipuncture / Unknown 08/27/2025 7:43 PM EST 08/27/2025 7:53 PM EST Edilma Mike MD LAB BLOOD ORDERABLES Final Re sult [facility]
[address] [place] [address], * (ABNORMAL) Lipase (08/27/2025 7:43 PM EST) Lipase 576(H) 13 - 60 U/L 08/27/2025 8:34 PM EST [facility] Blood Venipuncture / Unknown 08/27/2025 7:43 PM EST 08/27/2025 7:53 PM EST Edilma Mike MD LAB BLOOD ORDERABLES Final Re sult Performing Organization Address [facility] Co de Phone Number [facility]
[address] [place] [address], * (ABNORMAL) Lactic Acid, Plasma (08/27/2025 7:43 PM EST) Lactate 7.2(HH) 0.5 - 2.0 mmol/L 08/27/2025 8:22 PM EST [facility] Comment:Falsely depressed re sults may occur on samples drawn from patients receiving N-Acetylcysteine (NAC) or Metamizole. Blood Venipuncture / Unknown 08/27/2025 7:43 PM EST 08/27/2025 7:53 PM EST Edilma Mike MD LAB BLOOD ORDERABLES Final Re sult Performing Organization Address [facility]/ZIP Co de Phone Number [facility]
[address] [place] [address], * (ABNORMAL) Procalcitonin (08/27/2025 7:43 PM EST) Procalcitonin 68.30(H) 0.00 - 0.25 ng/mL 08/27/2025 8:23 PM EST [facility] Blood Venipuncture / Unknown 08/27/2025 7:43 PM EST 08/27/2025 7:53 PM EST Narrative [facility] - 08/27/2025 8:23 PM EST [...] Day 4 values are available. Refer to http://www.seocfb-akh-flrdurljrx.com Change in PCT <=80% A decrease of [...] MD LAB BLOOD ORDERABLES Final Re sult [facility]
[address] [place] [address], * (ABNORMAL) Comprehensive Metabolic Panel (08/27/2025 7:43 PM EST) Pathologist [facility] Glucose 110(H) 65 - 99 mg/dL 08/27/2025 8:23 PM [facility] BUN 20.6 8.0 - 23.0 mg/dL 08/27/2025 8:23 PM [facility] Creatinine 1.49(H) 0.76 - 1.27 mg/dL 08/27/2025 8:23 PM [facility] Sodium 143 136 - 145 mmol/L 08/27/2025 8:23 PM [facility] Potassium 3.5 3.5 - 5.2 mmol/L 08/27/2025 8:23 PM [facility] Chloride 110(H) 98 - 107 mmol/L 08/27/2025 8:23 PM [facility] CO2 15.6(L) 22.0 - 29.0 mmol/L 08/27/2025 8:23 PM [facility] Calcium 8.1(L) 8.6 - 10.5 mg/dL 08/27/2025 8:23 PM [facility] Total Protein 5.4(L) 6.0 - 8.5 g/dL 08/27/2025 8:23 PM [facility] Albumin 3.4(L) 3.5 - 5.2 g/dL 08/27/2025 8:23 PM [facility] ALT (SGPT) 275(H) 1 - 41 U/L 08/27/2025 8:23 PM [facility] AST (SGOT) 456(H) 1 - 40 U/L 08/27/2025 8:23 PM [facility] Alkaline Phosphatase 106 39 - 117 U/L 08/27/2025 8:23 PM [facility] Total Bilirubin 1.0 0.0 - 1.2 mg/dL 08/27/2025 8:23 PM [facility] Globulin 2.0 gm/dL 08/27/2025 8:23 PM [facility] Comment:Calculated Result A/G Ratio 1.7 g/dL 08/27/2025 8:23 PM EST [facility] BUN/Creatinine Ratio 13.8 7.0 - 25.0 08/27/2025 8:23 PM EST [facility] Anion Gap 17.4(H) 5.0 - 15.0 mmol/L 08/27/2025 8:23 PM EST [facility] eGFR 45.4(L) >60.0 mL/min/1.7 3 08/27/2025 8:23 PM EST [facility] Blood Venipuncture / Unknown 08/27/2025 7:43 PM EST 08/27/2025 7:53 PM EST Narrative [facility] - 08/27/2025 8:23 PM EST GFR [...] does not include race as a factor Edilma Mike MD LAB BLOOD ORDERABLES Final Re sult [facility]
[address] [place] [address], * LABS SCANNED (08/27/2025) [facility] LAB BLOOD ORDERABLES Final Re sult * IMAGING SCANNED (08/27/2025) Anatomical Region Laterality Modality Radiographic Radha ging [facility] IMG DIAGNOSTIC IMAGING ORDERA BLES Final Result * IMAGING SCANNED (08/27/2025) Anatomical Region Laterality Modality Radiographic Radha ging [facility] IMG DIAGNOSTIC IMAGING ORDERA BLES Final Result * IMAGING SCANNED (08/27/2025) Anatomical Region Laterality Modality Radiographic Radha ging [facility] IMG DIAGNOSTIC IMAGING ORDERA BLES Final Result documented in this encounter Visit Diagnoses Not on filedocumented in this encounter Admitting Diagnoses Diagnosis Pancreatitis [...] = Pain Score of 7-10, CPOT 5-8 arformoterol (BROVANA) nebulizer solution 15 mcg 15 mcg, Nebulization, 2 Times Daily - RT, First dose on 08/28/25 at 0145, Include Respiratory Treatment Education Keep refrigerated. Given 09/04/2025 10:51 PM EST 15 mcg Given 09/04/2025 8:33 AM EST 15 mcg Given 09/03/2025 8:55 PM EST 15 mcg bisacodyl (DULCOLAX) suppository 10 mg 10 mg, [...] Given 09/03/2025 9:00 PM EST 0.5 mg bupivacaine-EPINEPHrine PF (MARCAINE w/EPI) 0.25% -[id number] injection As Needed, Starting on Fri08/28/25 at 0835 Given 08/28/2025 8:35 AM EST 30 mL dextrose (D50W) (25 g/50 mL) IV injection 25 g 25 g, Intravenous, Every 15 Minutes PRN, Low Blood Sugar, Blood Sugar Less Than 70, Patient Has IV Access - Unresponsive, NPO or Unable To Safely Swallow, Starting on Fri08/28/25 at 0623 Given 08/28/2025 6:38 AM EST 25 g glucagon (GLUCAGEN) injection 1 mg 1 mg, Subcutaneous, Every 15 Minutes PRN, Low Blood Sugar, Blood Glucose Less Than 70 - Patient Without IV Access - Unresponsive, NPO or Unable To Safely Swallow, Starting on Fri08/28/25 at 0623, Reconstitute powder for injection by adding 1 mL of linux devops engineer-supplied sterile diluent or sterile water for injection [...] Given 08/31/2025 2:20 PM EST 10 mg HYDROmorphone (DILAUDID) injection 0.5 mg 0.5 [...] CPOT 5-8 Given 08/31/2025 4:25 PM EST 0.5 mg Given 08/30/2025 9:09 PM EST 0.5 mg Given 08/30/2025 3:15 PM EST 0.5 mg hydrOXYzine (ATARAX) tablet 25 mg 25 mg, Oral, 3 Times Daily PRN, Allergies, Anxiety, Sleep, Starting on Sunshine 09/01/25 at 1153, Caution: Look alike/sound alike drug alert iopamidol (ISOVUE-300) 61 % injection As Needed, Starting on 08/28/25 at 0833 Given 08/28/2025 8:33 AM EST 1 00 mL ipratropium-albuterol (DUO-NEB) nebulizer solution 3 mL 3 mL, Nebulization, Every 6 Hours PRN, Shortness of Air, Starting on 08/27/25 at 2109, Include Respiratory Treatment Education lisinopril (PRINIVIL,ZESTRIL) tablet 40 mg 40 mg, Oral, Every 24 Hours Scheduled, First dose (after last modification) on Fri09/02/25 at 0900, Hold for SBP less than 100, DBP less than 60. Given 09/05/2025 8:02 AM EST 40 mg Given 09/04/2025 8:21 AM EST 40 mg Given 09/03/2025 8:27 AM EST 40 mg melatonin tablet 5 mg 5 mg, Oral, Nightly PRN, Sleep, Starting on Sunshine 09/01/25 at 1153 montelukast (SINGULAIR) tablet 10 mg 10 mg, Oral, Nightly, First dose (after last modification) on Sunshine 09/01/25 at 2100 Given 09/04/2025 9:27 PM EST 10 mg Given 09/03/2025 9:29 PM EST 10 mg Given 09/02/2025 9:15 PM EST 10 mg naloxone (NARCAN) injection 0.4 mg 0.4 mg, [...] less than 100. ondansetron (ZOFRAN) injection 4 mg 4 mg, Intravenous, Every 6 Hours PRN, Nausea, Vomiting, Starting on 08/30/25 at 1021, If BOTH ondansetron (ZOFRAN) and promethazine (PHENERGAN) are ordered use ondansetron first and THEN promethazine IF ondansetron is ineffective. pantoprazole (PROTONIX) EC tablet 40 mg 40 mg, Oral, Every Malted Milk Supervisor, First dose on 09/04/25 at 0600, Do not crush or chew the capsules or tablets. The drug may not work as designed if the capsule or tablet is crushed or chewed. Swallow whole. Swallow whole; do not crush, split, or chew. Given 09/05/2025 6:32 AM EST 40 mg Given 09/04/2025 5:11 AM EST 40 mg polyethylene glycol (MIRALAX) packet 17 g 17 g, Oral, Daily PRN, Constipation, Use if senna-docusate is ineffective, Starting on Sunshine 09/01/25 at 1152, Use if no bowel movement after 12 hours. Mix in 6-8 ounces of water. Use 4-8 ounces of water, tea, or juice for each 17 gram dose. sennosides-docusate (PERICOLACE) 8.6-50 MG per tablet 2 tablet 2 tablet, Oral, 2 Times Daily, First dose (after last modification) on Sunshine 09/01/25 at 2100, Start bowel management regimen if patient has not had a bowel movement after 12 hours. Given 09/05/2025 8:02 AM EST 2 tablets Given 09/01/2025 9:26 PM EST 2 tablets sodium chloride 0.9 % flush 10 mL 10 mL, Intravenous, Every 12 Hours Scheduled, First dose on 08/27/25 at 2100 Given 09/05/2025 8:02 AM EST 10 mL Given 09/04/2025 9:27 PM EST 10 mL Given 09/04/2025 8:21 AM EST 10 mL sodium chloride 0.9 % solution As Needed, Starting on 08/28/25 at 0834 Given 08/28/2025 8:34 A M EST 1,000 mL terazosin (HYTRIN) capsule 5 mg 5 mg, Oral, Nightly, First dose (after last modification) on Sunshine 09/01/25 at 2100, Hold for SBP less than 100, DBP less than 60. Given 09/04/2025 9:27 PM EST 5 m g Given 09/03/2025 9:29 PM EST 5 mg Given 09/02/2025 9:14 PM EST 5 mg documented in this encounter Active and Recently Administered Medications Times are shown in EST. Scheduled Medication Order 09/03/2025 09/04/2025 09/05/2025 arformoterol (BROVANA) nebulizer solution 15 mcg 15 mcg, Nebulization, 2 Times Daily - RT, First dose on 08/28/25 at 0145, Include Respiratory Treatment Education Keep refrigerated. 0745 (Given - Provider: Vanessa Vale, SUPERVISOR [employer])0930 (Canceled Entry - Provider: Vanessa Vale, BRAIN)2055 (Given - Provider: Monse Paul, SUPERVISOR [employer]) 0833 (Given - Provider: Socorro Potts, SUPERVISOR [employer])2251 (Given - Provider: Raffaele Costa, SUPERVISOR [employer]) 0954 (Not Given - Provider: Kalani David, BRAIN - Reason: Patient not available) barium sulfate (VARIBAR PUDDING) oral paste 20 mL (COMPLETED) 20 mL, Oral, Once in Imaging, On 09/05/25 at 1000, For 1 dose, ([facility]) Shake well before administration. 0905 (Given - Provider: Sammi Nicolas) barium sulfate (VARIBAR THIN LIQUID) oral suspension 100 mL (COMPLETED) 100 mL, Oral, Once in Imaging, On Fri09/05/25 at 1000, For 1 dose, ([facility]) Shake well before administration. 09 (Given - Provider: Sammi Nicolas) barium sulfate oral suspension 10 mL (COMPLETED) 10 mL, Oral, Once in Imaging, On Fri09/05/25 at 1000, For 1 dose, ([facility]) Shake well before administration. 09 (Given - Provider: Sammi Nicolas) budesonide (PULMICORT) nebulizer solution 0.5 mg 0.5 mg, Nebulization, 2 Times Daily - RT, First dose on 08/28/25 at 1045, Do not shake. Protect from light. 0745 (Given - Provider: Vanessa Vale, SUPERVISOR [employer])0930 (Canceled Entry - Provider: Vanessa Vale, SUPERVISOR [employer])2100 (Given - Provider: Monse Paul, SUPERVISOR [employer]) 0833 (Given - Provider: Socorro Potts, SUPERVISOR [employer])2251 (Given - Provider: Raffaele Costa, BRAIN) 0954 (Not Given - Provider: Kalani David, BRAIN - Reason: Patient not available) furosemide (LASIX) injection 40 mg (COMPLETED) 40 mg, Intravenous, Once, On Fri09/03/25 at 1400, For 1 dose, Doses over 100 mg will dispense an IVPB bolus. 141 (Given - Provider: Velvet Torres RN) heparin (porcine) 5000 UNIT/ML injection 5,000 Units 5,000 Units, Subcutaneous, Every 8 Hours Scheduled, First dose on Fri08/28/25 at 1400, Indications: VTE Prophylaxis 0530 (Given - Provider: Rita Palacios RN)141 (Given - Provider: Velvet Torres, BECCA)2128 (Given - Provider: Lana Boyd, RN) 05 [...] last modification) on Sunshine 09/01/25 at 2100 2129 (Given - Provider: Lana Boyd, BECCA) 2127 (Given - Provider: Lana Boyd RN) pantoprazole (PROTONIX) EC tablet 40 mg 40 mg, Oral, Every Malted Milk Supervisor, First dose on 09/04/25 at 0600, Do [...] 40 mg (CANCELED) 40 mg, Intravenous, Every Malted Milk Supervisor, First dose on 08/29/25 at 0645, Dilute [...] Velvet Torres RN)1413 (Given - Provider: Velvet Torres, RN) sennosides-docusate (PERICOLACE) 8.6-50 MG per tablet [...] Every 12 Hours Scheduled, First dose on [facility] 08/27/25 at 2100 826 (Given - Provider: Velvet Torres RN)2129 (Given [...] BPA Driven Protocol Open Order & Select [facility] Electrolyte Replacement Protocol Algorithm to View Details [...] for injection by adding 1 mL of linux devops engineer-supplied sterile diluent or sterile water for injection [...] Daily PRN, Allergies, Anxiety, Sleep, Starting on Fri09/01/25 at 1153, Caution: Look alike/sound alike drug alert ipratropium-albuterol (DUO-NEB) nebulizer solution 3 mL 3 mL, Nebulization, Every 6 Hours PRN, Shortness of Air, Starting on 08/27/25 at 2109, Include Respiratory Treatment Education Magnesium Standard Dose Replacement - Follow Nurse / BPA Driven Protocol Open Order & Select [facility] Electrolyte Replacement Protocol Algorithm to View Details [...] BPA Driven Protocol Open Order & Select [facility] Electrolyte Replacement Protocol Algorithm to View Details [...] BPA Driven Protocol Open Order & Select [facility] Electrolyte Replacement Protocol Algorithm to View Details [...] ineffective. documented in this encounter Care Teams Business Systems Advisor Relationship Specialty Start Date End Date Provider, [place] [address] PCP - General 08/27/25 08/28/25 documented as of this encounter
--- OUTSIDE RECORDS SUMMARY | 2025-08-31 08:50 | XMS_ITS | Encounter Summary ---
Author Organization [facility] Address [address] [place] [address] Care Team Providers Care Industrial Gas Fitter Name Role Phone Lisa Arreola APRN Primary Care Provider [phone] Reason for Visit * Auth/Cert Specialty Diagnoses / Procedures Referred By Jorge t Referred To Contact Diagnoses Pancreatitis (pancreatitis) Referral ID Status Reason Start Date Expiration Date Visits Re quested Visits Authorized [id number] 1 1 Encounter Details Date Type Department Care Team (Late st Contact Info) Description 08/31/2025 8:50 AM EST Ancillary Procedure [facility] IP SPEECH PATH [address] [place] [phone] Social History Tobacco Use Types Packs/Day [...] and heating? Not hard at all 08/29/2025 [facility] [place] of Occupat ional Health - Occupational [...] things needed for daily living? No 08/29/2025 [facility] Utilities Answer Date Recorded In the past 12 months has [employer] electric, gas, oil, or water company threatened [...] GED or equivalent No 08/29/2025 Preferred Language Ukrainian 08/29/2025 PHQ-2 Answer Date Recorded Patient Health Questionnaire-2 Score 0 08/29/2025 Sex and Gender Information Value Date Recorded Sex Assigned at Not on file Legal Sex Male 3:02 PM EST Gender Identity Not on file Sexual Orientation Not on file documented as of this encounter Plan of Treatment Not on file documented as of this encounter Procedures Procedure Name Priority Date/Time Associated Diagnosis Comments TICKET SELLER FEES FIBEROPTIC ENDO EVAL SWALLOW Routine 08/31/2025 9:23 AM EST documented in this encounter Results * TICKET SELLER FEES - Fiberoptic Endo Eval Swallow (08/31/2025 9:23 AM EST) Narrative SYSTEMGENERATED, DOCUMENTATION - 08/31/2025 9:23 AM EST This procedure was auto-finalized with no dictation required. us Brian Hughes MD TICKET SELLER ORDERABLES Final Result documented in this encounter Visit Diagnoses Not on filedocumented in this encounter Care Teams Industrial Gas Fitter Relationship Specialty Start Date End Date Lisa Arreola APRN [address] [place] [address] PCP - General Nurse Practitioner 08/29/25 documented as of this encounter
--- OUTSIDE RECORDS SUMMARY | 2025-09-06 08:58 | XMS_ITS | Encounter Summary ---
Author Organization [facility] [place] [address] [place] [address] Care Team Providers Care Doweler Name Role Phone Unavailable Primary Care Provider Unavailabl e Encounter Details Date Type Department Care Team (Latest Contact Info) Description 09/06/2025 8:58 AM EST - 09/06/2025 11:59 PM EST Hospital Encounter [facility] Referral Lab 1 [place] [address] Wilbur Dominique MD [address] [phone] Discharge Disposition: Home or Self [...] ORDERABLES Fi nal Result [facility] [address] [facility], [place] [address] * (ABNORMAL) BASIC METABOLIC PANEL (09/06/2025 5:00 AM EST) Sodium 142 136 - 145 mmol/L 09/06/2025 9:23 AM EST [facility] Potassium 4.1 3.5 - 5.0 mmol/L 09/06/2025 9:23 AM EST [facility] Chloride 110(H) 98 - 107 mmol/L 09/06/2025 9:23 AM EST [facility] Total CO2 23 22 - 29 mmol/L 09/06/2025 9:23 AM EST [facility] Anion Gap 9 7 - 16 mmol/L [...] recommended by the National Kidney Foundation - [place] [employer] of Nephrology Task Force. Blood VENOUS BLOOD / Unknown Venipuncture / Unknown 09/06/2025 5:00 AM EST 09/06/2025 8:59 AM EST us Wilbur Dominique MD CHEMISTRY ORDERABLES Fi nal Result [facility] [address] [facility] , [place] [address] * (ABNORMAL) CBC WITH DIFF [...] LLC Neut # 6.9(H) 1.6 - 6.1 x10(3)/[facility] 09/06/2025 10:32 AM EST [facility] Lymph # 2.7 1.2 - 3.9 x10(3)/[facility] 09/06/2025 10:32 AM EST [facility] [place] # 0.8 0.3 - 0.9 x10(3)/[facility] 09/06/2025 10:32 AM EST [facility] Eos # Manual 0.6(H) 0.0 - 0.5 x10(3)/[facility] 09/06/2025 10:32 AM EST [facility] Baso # Manual 0.0 0.0 - 0.1 x10(3)/[facility] 09/06/2025 10:32 AM EST [facility] Myelo # 0.2 x10(3)/[facility] 09/06/2025 10:32 AM EST [facility] Ovalocyte Occasional 09/06/2025 10:32 AM EST [facility] Becky Cell Moderate 09/06/2025 10:32 AM EST [facility] Blood VENOUS BLOOD / Unknown Venipuncture / Unknown 09/06/2025 5:00 AM EST 09/06/2025 8:59 AM EST us Wilbur Dominique MD HEMATOLOGY ORDERABLES F inal Result [facility] [address] [facility] , [place] [address] documented in this encounter Visit Diagnoses Not on filedocumented in this encounter
--- OUTSIDE RECORDS SUMMARY | 2025-09-10 09:32 | XMS_ITS | Encounter Summary ---
Author Organization [place] [address] Care Team Providers Care International Trade Manager Name Role Phone Unavailable Primary Care Provider Unavailabl e Encounter Details Date Type Department Care Team (Latest Contact Info) Description 09/10/2025 9:32 AM EST - 09/10/2025 11:59 PM EST Hospital Encounter [facility] Referral Lab [address] [place] [address] Wilbur Dominique MD [address] [phone] Discharge Disposition: Home or Self [...] Associated Diagnosis Comments CBC WITH DIFF Routine 09/10/2025 8:19 AM EST BASIC METABOLIC PANEL Routine 09/10/2025 8:19 AM EST documented in this encounter Results * (ABNORMAL) CBC WITH DIFF (09/10/2025 8:19 AM EST) WBC 8.1 3.7 - 10.3 x10(3)/mcL 09/10/2025 11:11 AM EST [facility] RBC 3.01(L) 4.60 - 6.10 x10(6)/mcL 09/10/2025 11:11 AM EST [facility] Hgb 8.9(L) 13.7 - 17.5 g/dL 09/10/2025 11:11 AM EST [facility] Hct 29.0(L) 40.0 - 51.0 % 09/10/2025 11:11 AM EST [facility] MCV 96.3 80.0 - 100.0 fL 09/10/2025 11:11 AM EST [facility] MCH 29.6 26.0 - 34.0 pg 09/10/2025 11:11 AM EST [facility] MCHC 30.7 30.7 - 35.5 g/dL 09/10/2025 11:11 AM EST [facility] RDW 14.7 <=14.9 % 09/10/2025 11:11 AM EST [facility] Platelet 379(H) 155 - 369 x10(3)/mcL 09/10/2025 11:11 AM EST [facility] MPV 10.6 8.8 - 12.5 fL 09/10/2025 11:11 AM EST [facility] Segs 77 % 09/10/2025 11:11 AM EST [facility] Lymphs 14 % 09/10/2025 11:11 AM EST [facility] Monos 6 % 09/10/2025 11:11 AM EST [facility] Eos 2 % 09/10/2025 11:11 AM EST [facility] Baso 0 % 09/10/2025 11:11 AM EST [facility] Myelo 1 % 09/10/2025 11:11 AM EST [facility] Neut # 6.2(H) 1.6 - 6.1 x10(3)/mcL 09/10/2025 11:11 AM EST [facility] Lymph # 1.1(L) 1.2 - 3.9 x10(3)/mcL 09/10/2025 11:11 AM EST [facility] [place] # 0.5 0.3 - 0.9 x10(3)/mcL 09/10/2025 11:11 AM EST [facility] Eos # Manual 0.2 0.0 - 0.5 x10(3)/mcL 09/10/2025 11:11 AM EST [facility] Baso # Manual 0.0 0.0 - 0.1 x10(3)/mcL 09/10/2025 11:11 AM EST [facility] Myelo # 0.1 x10(3)/mcL 09/10/2025 11:11 AM EST [facility] Polychrom Slight 09/10/2025 11:11 AM EST [facility] Ovalocyte Occasional 09/10/2025 11:11 AM EST [facility] Blood VENOUS BLOOD / Unknown Venipuncture / Unknown 09/10/2025 8:19 AM EST 09/10/2025 10:20 AM EST us Wilbur Dominique MD HEMATOLOGY ORDERABLES F inal Result [facility] [address] [facility] , [place] [address] * (ABNORMAL) BASIC METABOLIC PANEL (09/10/2025 8:19 AM EST) Sodium 139 136 - 145 mmol/L 09/10/2025 11:03 AM EST [facility] Potassium 4.0 3.5 - 5.0 mmol/L 09/10/2025 11:03 AM EST [facility] Chloride 101 98 - 107 mmol/L 09/10/2025 11:03 AM EST [facility] Total CO2 27 22 - 29 mmol/L 09/10/2025 11:03 AM EST [facility] Anion Gap 11 7 - 16 mmol/L 09/10/2025 11:03 AM EST [facility] Calcium 8.0(L) 8.8 - 10.4 mg/dL 09/10/2025 11:03 AM EST [facility] Glucose Lvl 128(H) 70 - 99 mg/dL 09/10/2025 11:03 AM EST [facility] BUN 8 8 - 23 mg/dL 09/10/2025 11:03 AM EST [facility] Creatinine 0.77 0.67 - 1.30 mg/dL 09/10/2025 11:03 AM EST [facility] eGFR (CKD-EPIcr 2020) 87 >=60 mL/min/1.7 3 m2 09/10/2025 11:03 AM EST [employer] Comment:Estimated GFR was ca lculated using the CKD-EPIcr (2020) equation refit without race. The equation is recommended by the National Kidney Foundation - [place] [employer] of Nephrology Task Force. Blood VENOUS BLOOD / Unknown Venipuncture / Unknown 09/10/2025 8:19 AM EST 09/10/2025 10:20 AM EST us Wilbur Dominique MD CHEMISTRY ORDERABLES Fi nal Result [facility] [address] [facility] , [place] [address] documented in this encounter Visit Diagnoses Not on filedocumented in this encounter
--- OUTSIDE RECORDS SUMMARY | 2025-10-05 11:30 | XMS_ITS | Encounter Summary ---
Author Organization [facility] Address [address] [place] [id number] Care Team Providers Care Educational Coordinator Name Role Phone MaxwellLisa berger Chito KAPOOR Primary Care Provider [phone] Encounter Details Date Type Department Care Team (Late st Contact Info) Description 10/05/2025 11:30 AM EST Office Visit [facility] GENERAL SURGERY [address] [facility] [address] [place] [address] Hermes Jaramillo MD [address] [facility] [address] [place] [id number] Acute pancreatitis without infection or necrosis, unspecified pancreatitis type (Primary Dx) Social History Tobacco Use Types Packs/Day Years [...] and heating? Not hard at all 08/29/2025 [facility] [place] of Occupat ional Health - Occupational Stress [...] things needed for daily living? No 08/29/2025 [facility] Utilities Answer Date Recorded In the past 12 months has th [employer] electric, gas, oil, or water company threatened [...] GED or equivalent No 08/29/2025 Preferred Language Mongolian 08/29/2025 PHQ-2 Answer Date Recorded Patient Health Questionnaire-2 Score 0 08/29/2025 Sex and Gender Information Value Date Recorded Sex Assigned at Not on file Legal Sex Male 3:02 PM EST Gender Identity Not on file Sexual Orientation Not on file documented as of this encounter Last Filed Vital Signs Vital Sign Reading Time Taken Comments Blood Pressure 101/56 10/05/2025 11:36 AM EST Pulse 86 10/05/2025 11:36 AM EST Temperature - - Respiratory Rate - - Oxygen Saturation 97% 10/05/2025 11:36 AM EST Inhaled Oxygen Concentration - - Weight 85.7 kg (189 lb) 10/05/2025 11:36 AM EST Height 172.7 cm (5' 7.99 ) 10/05/2025 11:[address] Body Mass Index 28.74 10/05/2025 11:36 AM EST documented in this encounter Progress Notes * Hermes Jaramillo MD - 10/05/2025 11:30 AM ESTAssociated Problem(s): Acute pancreatitis (Resolved 09/05/2025) Mr. Thurman has done well from his laparoscopic cholecystectomy. I released him to regular activity, and we will see him back as needed. * Hermes Jaramillo MD - 10/05/2025 11:30 AM EST General Surgery Post-Op Note Patient Name: Jayme Thurman Date of : 1940 Date of Service; 10/05/25 Referring Provider: Lisa Arreola APRN Date of Surgery: 08/28/2025 Procedure: Laparoscopic cholecystectomy with intraoperative cholangiography Pathology: Chronic cholecystitis Date: 10/05/25 Subjective UPDATE 10/05/2025 : Mr. Thurman now returns over 1 month since his recent laparoscopic cholecystectomy for acute cholecystitis and acute pancreatitis. He reports a recurrent attack of mild pancreatitispostoperatively, which was treated with ERCP. He is now feeling much better. Patient answers are not available for this visit. Medications: Current Outpatient Medications Medication albuterol sulfate HFA Aspirin budesonide cetirizine diphenhydrAMINE docusate sodium doxazosin ferrous sulfate furosemide Bevespi Aerosphere lisinopril montelukast nitroglycerin omeprazole vitamin B-12 vitamin C Objective Physical Exam: Vital Signs BP 101/56 (BP Location: Right arm, Patient Position: Sitting, Cuff Size: Adult) Pulse 86 Ht 172.7 cm (67.99 ) Wt 85.7 kg (189 lb) SpO2 97% BMI 28.74 kg/m?? Body mass index is 28.74 kg/m??. BMI is >= 30 and <35. (Class 1 Obesity). The following options were offered after discussion;: weight loss educational material (shared in after visit summary), exercise counseling/recommendations, and nutrition counseling/recommendations Physical Exam: CV: Rhythm regular and rate regular , no murmurs, rubs or gallops Lungs: Clear to auscultation bilaterally Abdomen: Bowel sounds positive , soft, incisions clean dry and intact. Groin : No obvious hernias bilaterally Extremities: No cyanosis, clubbing or edema bilaterally Assessment & Plan Acute pancreatitis without infection or necrosis, unspecified pancreatitis type Mr. Thurman has done well from his laparoscopic cholecystectomy. I released him to regular activity, and we will see him back as needed. No follow-ups on file. Hermes Jaramillo MD 10/05/25 11:53 EST documented in this encounter Plan of Treatment Not on file documented as of this encounter Visit Diagnoses Diagnosis Acute pancreatitis without infection or necrosis, unspecified pancreatitis type- Primary documented in this encounter Care Teams Educational Coordinator Relationship Specialty Start Date End Date Lisa Arreola APRN [address] [place] [address] PCP - General Nurse Practitioner 08/29/25 documented as of this encounter
[2025-10-05 19:10] LABS: Hematocrit 31.4 % (42.0-52.0); Hemoglobin 9.7 g/dL (14.1-18.0); Immature Granulocytes % 1.6 %; Mean Corpuscular HGB Conc 30.9 g/dL (31.8-35.4); Mean Corpuscular Hemoglobin 28.8 pg (27.0-31.2); Mean Corpuscular Volume 93.2 fl (80-94); Nucleated Red Blood Cells % 0 %; Platelet Count 284 K/mm3 (142-424); Red Blood Count 3.37 M/mm3 (4.60-6.20); Red Cell Distribution Width-SD 51.6 fL; White Blood Count 7.1 K/mm3 (4.8-10.8)
[2025-10-05 19:48] LABS: Alanine Aminotransferase 37 U/L (12-78); Albumin Level 3.4 g/dl (3.5-5.0); Albumin/Globulin Ratio 1.4 (1.1-1.8); Alkaline Phosphatase 130 U/L (38-126); Anion Gap 12.4 mEq/L (5-15); Aspartate Amino Transferase 23 U/L (17-59); Bilirubin,Total 0.4 mg/dl (0.2-1.3); Blood Urea Nitrogen 16 mg/dl (9-20); Carbon Dioxide 22 mmol/L (22.0-30.0); Chloride 102 mmol/L (98-107); Creatinine,Serum 1.20 mg/dl (0.66-1.25); Estimated Glomerular Filt Rate 57 ml/min (>60); GFR (African American) 69 ML/MIN (>60); Globulin 2.5 g/dL (1.3-3.2); Potassium 4.4 mmoL/L (3.5-5.1); Sodium 132 mmol/L (136-145); Total Protein,Serum 5.9 g/dl (6.3-8.2)
[2025-10-05 20:09] LABS: Anisocytosis 1+; Macrocytosis 1+; Microcytosis 1+; Total Cells Counted 100
[2025-10-05 20:10] LABS: Poikilocytosis 1+; Target Cells 1+
[2025-10-05 20:11] LABS: Burr Cells 1+
[2025-10-05 20:42] LABS: Calcium 8.4 mg/dl (8.4-10.2); Glucose 149 mg/dl (74-100)
--- OUTSIDE RECORDS SUMMARY | 2025-10-06 12:01 | XMS_ITS | Encounter Summary ---
Author Organization [facility] Address [address] [place] [address] Care Team Providers Care Forwarder Operator Name Role Phone MaxwellLisa berger Chito KAPOOR Primary Care Provider [phone] Encounter Details Date Type Department Care Team (Latest Contact Info) Description 10/05/2025 Travel Social History Tobacco Use Types Packs/Day Years [...] and heating? Not hard at all 08/29/2025 [facility] [place] of Occupat ional Health - Occupational Stress [...] for daily living? No 08/29/2025 [facility] Utilities Answer Date Recorded In the past 12 months has e electric, gas, oil, or water company [...] documented as of this encounter Visit Diagnoses Not on filedocumented in this encounter Care Teams Forwarder Operator Relationship Specialty Start Date End Date Lisa Arreola, ANTWON [address] [place] [id number] PCP - General Nurse Practitioner 08/29/25 documented as of this encounter
--- OUTSIDE RECORDS SUMMARY | 2025-10-06 12:01 | XMS_ITS | Clinical Summary ---
Author Organization [facility] Address [address] [place] [address] Care Team Providers Care Blood Bank Business Manager Name Role Phone Félix Wasserman MD Primary Care Provider [phone] Immunizations Immunization Administration Dates Next Due Influenza, [...] Date Last Done Comments [facility]-Depression Screening 1940 [facility]-Infant/Child/Adol SDOH Screenings 1940 [facility]- SDOH Screenings 1956 [facility]-Adult SDOH Screenings 1956 [facility]-Zoster Vaccines (1 of 2) 1988 [facility]-RSV Vaccine: 60+ Years or (1 - 1-dose 75+ series) 2013 [facility]-[id number]-61 Vaccine ( season) 2025 08/28/2022, 03/11/2022, 10/22/2021, Additional history exists [facility]-Influenza Vaccine (#1) 2025 08/16/2021, [facility]-DTaP,Tdap,and Td Vaccines (2 - Td or Tdap) 05/29/2027 05/29/2017 [facility]-Pneumococcal Vaccine: 50+ Years Completed 07/08/2018, 05/29/2017, 09/18/2015 HPV Vaccines (No Doses Required) Completed [facility]-HIB Vaccines Aged Out No longer e [...] age to complete this topic Insurance MEDICARE [facility] [place] [id number] Care Teams Blood Bank Business Manager Relationship Specialty Start Date End Date Félix Wasserman MD [address] [place] [address] (work) PCP - General 03/02/21
--- OUTSIDE RECORDS SUMMARY | 2025-10-06 12:01 | XMS_ITS | Encounter Summary ---
Author Organization [place] [address] Care Team Providers Care Franchise Consultant Name Role Phone Unavailable Primary Care Provider Unavailabl e Encounter Details Date Type Department Care Team (Latest Contact Info) Description 09/08/2025 External Contact [facility] [address] [phone] Wilbur Dominique MD [address] [phone] Critical illness myopathy (Primary Dx); Acute hypercapnic respiratory failure (HCC); COPD, very severe (HCC); Wheezing Social History Tobacco Use Types Packs/Day Years Used Date Smoking Tobacco: Never Assessed Sex and Gender Information Value Date Recorded Sex Assigned at Not on file Legal Sex Male 5:08 AM EDT Gender Identity Not on file Sexual Orientation Not on file documented as of this encounter Progress Notes * Catarina Martin RMA - 09/08/2025 11:59 PM EST Pt was seen at [facility] - medical records in their system documented in this encounter Plan of Treatment Not on file documented as of this encounter Visit Diagnoses Diagnosis Critical illness myopathy- Primary Acute hypercapnic respiratory failure (HCC) COPD, very severe (HCC) Chronic airway obstruction, not elsewhere classified Wheezing documented in this encounter
--- OUTSIDE RECORDS SUMMARY | 2025-10-06 12:02 | XMS_ITS | Encounter Summary ---
Author Organization [place] [address] Care Team Providers Care Mixer Lever Operator Name Role Phone Unavailable Primary Care Provider Unavailabl e Encounter Details Date Type Department Care Team (Latest Contact Info) Description 09/11/2025 External Contact [facility] Pulmon[facility] [address] [phone] James Boswell MD [address] [address] Critical illness myopathy (Primary Dx); [...] 11:59 PM EST Pt was seen at [facility] medical records in their system documented in this encounter Plan of Treatment Not on file documented as of this encounter Visit Diagnoses Diagnosis Critical illness myopathy- Primary COPD, very severe (HCC) Chronic airway obstruction, not elsewhere classified documented in this encounter
--- OUTSIDE RECORDS SUMMARY | 2025-10-06 12:02 | XMS_ITS | Clinical Summary ---
Author Organization [facility] Address [address] [place] [address] Care Team Providers Care Corner Block Cutter Name Role Phone Lisa Arreola APRN Primary Care Provider [phone] Allergies Active Allergy Reactions Criticality Noted Date Comments Statins Myalgia 09/18/2015 Medications omeprazole (priLOSEC) 20 MG capsule Take 1 capsule by mouth Daily. Active montelukast (SINGULAIR) 10 MG tablet Take 1 tablet by mouth Every Night. Active albuterol sulfate HFA 108 (90 Base) MCG/ACT inhaler Inhale 2 puffs Every 4 (Four) Hours As Needed for Wheezing. Active Glycopyrrolate -Formoterol (Bevespi Aerosphere) 9-4.8 MCG/ACT aerosol Inhale 2 sprays 2 (Two) Times a Day. Active diphenhydrAMIN E (BENADRYL) 25 mg capsule Take 1 capsule by mouth At Night As Needed for Sleep. Active vitamin B-12 (CYANOCOBALAMI N) 1000 MCG tablet Take 1 tablet by [...] by mouth Daily As Needed for Constipation. Active doxazosin (CARDURA) 4 MG tablet Take 1 tablet by mouth Every Night. Active Aspirin 81 MG capsule Take 1 capsule by mouth Daily. Active budesonide (PULMICORT) 0.5 MG/2ML nebulizer solution Take 2 mL by nebulization 2 (Two) Times a Day. Active furosemide (LASIX) 20 MG tablet Take 1 tablet by mouth Daily. Active lisinopril (PRINIVIL,ZEST RIL) 30 MG tablet Take 1 tablet by mouth Daily. Active nitroglycerin (NITROSTAT) 0.[address] 1 tablet under the tongue As Needed. Active lisinopril (PRINIVIL,ZEST RIL) 40 MG tablet Take 1 tablet by mouth Daily. 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 Thurman has done well from his laparoscopic cholecystectomy. I released him to regular activity, and we will see him back as needed. Vasovagal syncope 08/27/2025 09/05/2025 Encounters Date Type Department Care Team Description 10/05/2025 11:30 AM EST Office Visit [facility] [address] [id number] Hermes Jaramillo MD Acute pancreatitis without infection or necrosis, unspecified pancreatitis type (Primary Dx) 10/05/2025 Travel 08/31/2025 8:50 AM EST Ancillary Procedure [facility] IP SPEECH PATH [address] [place] [address] 08/28/2025 6:35 PM EST - 08/28/2025 8:12 PM EST Surgery [facility] OR [address] [place] [id number] Hermes Jaramillo MD CHOLECYSTECTOMY LAPAROSCOPIC INTRAOPERATIVE CHOLANGIOGRAM [91299 (CPT )] 08/28/2025 7:56 AM EST Anesthesia Event [facility] OR [address] [place] [id number] Kourtney Booth MD Hall, Desiree M, CRNA 08/27/2025 6:38 PM EST - 09/05/2025 3:32 PM EST Hospital Encounter [facility] 5H [address] [facility] [address] Edilma Mike MD Polly, [place], [...] and heating? Not hard at all 08/29/2025 [facility] Occupat ional Health - Occupational Stress [...] things needed for daily living? No 08/29/2025 [facility] Utilities Answer Date Recorded In the past 12 months has th e [employer], gas, oil, or water [employer] threatened to shut off services in your [...] GED or equivalent No 08/29/2025 Preferred Language Chilean 08/29/2025 PHQ-2 Answer Date Recorded Patient Health [...] Pulse 86 10/05/2025 11:36 AM EST Temperature 36.9 C (98.4 F) 09/05/2025 7:34 AM EST Respiratory Rate 18 09/05/2025 7:34 AM EST Oxygen Saturation 97% 10/05/2025 11:36 AM EST Inhaled Oxygen Concentration - - Weight 85.7 kg (189 lb) 10/05/2025 11:36 AM EST Height 172.7 cm (5' 7.99 ) 10/05/2025 11:[address] Body Mass Index 28.74 10/05/2025 11:36 AM EST Plan of Treatment Health Maintenance Due Date Last Done Comments LIPID PANEL 1940 ZOSTER VACCINE (1 of 2) 1988 RSV Vaccine - Adults (1 - 1- dose 75+ series) 2013 COVID-19 Vaccine (2024-2 6 season) 2025 08/11/2023, 08/28/2022, 03/11/2022, Additional [...] GLUCOSE FINGERSTICK Routine 08/31/2025 1:02 PM EST APPLIED PSYCHOLOGY PROFESSOR FEES FIBEROPTIC ENDO EVAL SWALLOW Routine 08/31/2025 [...] ANESTHESIA INTUBATION Routine 08/28/2025 8:16 AM EST FL LAPS SURG CHOLECYSTECTOMY W/CHOLANGIOGRAPHY 08/28/2025 7:40 AM [...] pancreatitis, unspecified complication status, unspecified pancreatitis type FL ARTL CATHJ/CANNULJ MNTR/TRANSFUSION SPX PRQ Routine 08/28/2025 5:20 AM EST Acute pancreatitis, unspecified complication status, unspecified pancreatitis type HC CENTRAL LINE INSERTION Routine 08/28/2025 5:19 AM EST Acute pancreatitis, unspecified complication status, unspecified pancreatitis type FL INSJ NON-TUNNELED CENTRAL VENOUS CATH AGE 5 [...] MD 09/05/2025 4:23 PM EST Workstation ID: [id number] Narrative 09/05/2025 4:23 PM EST FL VIDEO [...] MD 09/05/2025 4:23 PM EST Workstation ID: [id number] us Flora Baig MD IMG FLUOROSCOP Y ORDERABLES Final Result * (ABNORMAL) CBC (No Diff) (09/05/2025 4:35 AM EST) Only the most recent of6 resultswithin the time period is included. WBC 11.96(H) 3.40 - 10.80 10*3/mm3 09/05/2025 5:14 AM EST [facility] RBC 3.00(L) 4.14 - 5.80 10*6/mm3 09/05/2025 5:14 AM [facility] Hemoglobin 9.1(L) 13.0 - 17.7 g/dL 09/05/2025 5:14 AM [facility] Hematocrit 29.2(L) 37.5 - 51.0 % 09/05/2025 5:14 AM EST [facility] MCV 97.3(H) 79.0 - 97.0 fL 09/05/2025 5:14 AM EST [facility] MCH 30.3 26.6 - 33.0 pg 09/05/2025 5:14 AM [facility] MCHC 31.2(L) 31.5 - 35.7 g/dL 09/05/2025 5:14 AM [facility] RDW 14.9 12.3 - 15.4 % 09/05/2025 5:14 AM [facility] RDW-SD 52.1 37.0 - 54.0 fl 09/05/2025 5:14 AM [facility] MPV 10.9 6.0 - 12.0 fL 09/05/2025 5:14 AM [facility] Platelets 191 140 - 450 10*3/mm3 09/05/2025 5:14 AM [facility] Blood Venipuncture / Unknown 09/05/2025 4:35 AM EST 09/05/2025 4:59 AM EST us Flora Baig MD LAB BLOOD ORDNy ROGERS Final Result [facility]
[address] [place] [address], * Magnesium (09/05/2025 4:35 AM EST) Only the most recent of10 resultswithin the time period is included. Magnesium 2.4 1.6 - 2.4 mg/dL 09/05/2025 5:28 AM [facility] Blood Venipuncture / Unknown 09/05/2025 4:35 AM EST 09/05/2025 4:56 AM EST Flora Baig MD LAB BLOOD ORDNy ROGERS Final Result [facility]
[address] [place] [address], * (ABNORMAL) Basic Metabolic Panel (09/05/2025 4:35 AM EST) Only the most recent of7 resultswithin the time period is included. Glucose 110(H) 65 - 99 mg/dL 09/05/2025 5:28 AM [facility] BUN 18.5 8.0 - 23.0 mg/dL 09/05/2025 5:28 AM [facility] Creatinine 0.72(L) 0.76 - 1.27 mg/dL 09/05/2025 5:28 AM [facility] Sodium 146(H) 136 - 145 mmol/L 09/05/2025 5:28 AM [facility] Potassium 4.0 3.5 - 5.2 mmol/L 09/05/2025 5:28 AM [facility] Chloride 115(H) 98 - 107 mmol/L 09/05/2025 5:28 AM [facility] CO2 24.0 22.0 - 29.0 mmol/L 09/05/2025 5:28 AM [facility] Calcium 7.7(L) 8.6 - 10.5 mg/dL 09/05/2025 5:28 AM [facility] BUN/Creatinine Ratio 25.7(H) 7.0 - 25.0 09/05/2025 5:28 AM [facility] Anion Gap 7.0 5.0 - 15.0 mmol/L 09/05/2025 5:28 AM [facility] eGFR 89.0 >60.0 mL/min/1.7 3 09/05/2025 5:28 AM EST [facility] Blood Venipuncture / Unknown 09/05/2025 4:35 AM EST 09/05/2025 4:56 AM EST Narrative [facility] - 09/05/2025 5:28 AM EST [...] ORDE KEN Final Result Performing Organization Address City/[facility]/ZIP Co de Phone Number [facility]
[address] [place] [address], * Potassium (09/04/2025 5:30 PM EST) Only the most recent of3 resultswithin the time period is included. [facility] Potassium 4.3 3.5 - 5.2 mmol/L 09/04/2025 6:36 PM EST [facility] Blood Venipuncture / Unknown 09/04/2025 5:30 PM EST 09/04/2025 5:57 PM EST Flora Baig MD LAB BLOOD ORDE RABTRUNG Final Result Performing Organization Address City/[facility] Co de Phone Number [facility]
[address] [place] [address], * POC Glucose Once (09/04/2025 4:35 PM EST) Only the most recent of34 resultswithin the time period is included. Pathologist [facility] Glucose 122 70 - 130 mg/dL 09/04/2025 4:44 PM EST [facility] Comment:Serial Number: [id number]: [id number] Blood 09/04/2025 4:35 PM EST 09/04/2025 4:44 PM EST Flora Baig MD POINT OF CARE TEST ORDERABLES Final Result Performing Organization Address City/[facility]/ZIP Co de Phone Number [facility]
[address] [place] [address], * (ABNORMAL) Phosphorus (09/04/2025 5:18 AM EST) Only the most recent of7 resultswithin the time period is included. Pathologist [facility] Phosphorus 2.4(L) 2.5 - 4.5 mg/dL 09/04/2025 6:13 AM EST [facility] Blood Venipuncture / Unknown 09/04/2025 5:18 AM EST 09/04/2025 5:51 AM EST Flora Baig MD LAB BLOOD ORDE RABLES Final Result Performing Organization Address [facility] Co de Phone Number [facility]
[address] [place] [address], * Scan Slide (09/03/2025 1:57 PM EST) Pathologist [facility] RBC Morphology Normal Normal 09/03/2025 3:20 PM EST [facility] WBC Morphology Normal Normal 09/03/2025 3:20 PM EST [facility] Platelet Estimate Adequate Normal 09/03/2025 3:20 PM EST [facility] Blood Venipuncture / Unknown 09/03/2025 1:57 PM EST 09/03/2025 2:09 PM EST Lizbeth Myers SAFETY TEACHER LAB BLOOD ORDERABLES Final Result [facility]
[address] [place] [address], * (ABNORMAL) CBC Auto Differential (09/03/2025 1:57 PM EST) Only the most recent of6 resultswithin the time period is included. WBC 10.70 3.40 - 10.80 10*3/mm3 09/03/2025 3:20 PM EST [facility] RBC 3.19(L) 4.14 - 5.80 10*6/mm3 09/03/2025 3:20 PM EST [facility] Hemoglobin 9.3(L) 13.0 - 17.7 g/dL 09/03/2025 3:20 PM EST [facility] Hematocrit 30.4(L) 37.5 - 51.0 % 09/03/2025 3:20 PM EST [facility] MCV 95.3 79.0 - 97.0 fL 09/03/2025 3:20 PM EST [facility] MCH 29.2 26.6 - 33.0 pg 09/03/2025 3:20 PM EST [facility] MCHC 30.6(L) 31.5 - 35.7 g/dL 09/03/2025 3:20 PM EST [facility] RDW 14.6 12.3 - 15.4 % 09/03/2025 3:20 PM EST [facility] RDW-SD 51.0 37.0 - 54.0 fl 09/03/2025 3:20 PM EST [facility] MPV 10.9 6.0 - 12.0 fL 09/03/2025 3:20 PM EST [facility] Platelets 140 140 - 450 10*3/mm3 09/03/2025 3:20 PM EST [facility] Neutrophil % 68.1 42.7 - 76.0 % 09/03/2025 3:20 PM EST [facility] Lymphocyte % 18.1(L) 19.6 - 45.3 % 09/03/2025 3:20 PM EST [facility] Monocyte % 7.6 5.0 - 12.0 % 09/03/2025 3:20 PM EST [facility] Eosinophil % 1.3 0.3 - 6.2 % 09/03/2025 3:20 PM EST [facility] Basophil % 0.3 0.0 - 1.5 % 09/03/2025 3:20 PM EST [facility] Immature Grans % 4.6(H) 0.0 - 0.5 % 09/03/2025 3:20 PM EST [facility] Neutrophils, Absolute 7.29(H) 1.70 - 7.00 10*3/mm3 09/03/2025 3:20 PM EST [facility] Lymphocytes, Absolute 1.94 0.70 - 3.10 10*3/mm3 09/03/2025 3:20 PM EST [facility] Monocytes, Absolute 0.81 0.10 - 0.90 10*3/mm3 09/03/2025 3:20 PM [facility] Eosinophils, Absolute 0.14 0.00 - 0.40 10*3/mm3 09/03/2025 3:20 PM [facility] Basophils, Absolute 0.03 0.00 - 0.20 10*3/mm3 09/03/2025 3:20 PM [facility] Immature Grans, Absolute 0.49(H) 0.00 - 0.05 10*3/mm3 09/03/2025 3:20 PM [facility] nRBC 0.4(H) 0.0 - 0.2 /100 WBC 09/03/2025 3:20 PM [facility] Blood Venipuncture / Unknown 09/03/2025 1:57 PM EST 09/03/2025 2:09 PM EST [facility] - 09/03/2025 3:20 PM EST Appended report. These results have been appended to a previously verified report. Lizbeth Myers APRN LAB BLOOD ORDERABLES Final Result [facility]
[address] [id number], * ECHO COMPLETE W/ DOPPLER, COLOR FLOW [...] - 2.0 mmol/L 09/02/2025 4:30 PM EST [facility] Comment:Falsely depressed re sults may occur on samples drawn from patients receiving N-Acetylcysteine (NAC) or Metamizole. Blood Venipuncture / Unknown 09/02/2025 3:43 PM EST 09/02/2025 3:53 PM EST us Lizbeth Myers APRN LAB BLOOD ORDERABLES Final Result [facility]
[address] [place] [address], * (ABNORMAL) proBNP (09/02/2025 2:36 PM EST) proBNP 9,267.0(H) 0.0 - 1,800.0 pg/mL 09/02/2025 3:24 PM EST [facility] Blood Venipuncture / Unknown 09/02/2025 2:36 PM EST 09/02/2025 2:47 PM EST [facility] - 09/02/2025 3:24 PM EST [...] >1800 Padron 300-1800 Negative <300 Lizbeth Myers SAFETY TEACHER LAB BLOOD ORDERABLES Final Result [facility]
[address] [place] [address], * (ABNORMAL) Procalcitonin (09/02/2025 2:36 PM EST) Only the most recent of3 resultswithin the time period is included. Procalcitonin 4.27(H) 0.00 - 0.25 ng/mL 09/02/2025 3:24 PM EST [facility] Blood Venipuncture / Unknown 09/02/2025 2:36 PM EST 09/02/2025 2:47 PM EST [facility] - 09/02/2025 3:24 PM EST [...] Day 4 values are available. Refer to http://www.vsodcu-vuc-cwhxyrnfvo.com Change in PCT <=80% A decrease of [...] severe sepsis or septic shock. Lizbeth Myers SAFETY TEACHER LAB BLOOD ORDERABLES Final Result [facility]
[address] [place] [address], * (ABNORMAL) Manual Differential (09/02/2025 2:36 PM EST) Only the most recent of4 resultswithin the time period is included. Neutrophil % 83.0(H) 42.7 - 76.0 % 09/02/2025 4:01 PM EST [facility] Lymphocyte % 5.0(L) 19.6 - 45.3 % 09/02/2025 4:01 PM EST [facility] Monocyte % 3.0(L) 5.0 - 12.0 % 09/02/2025 4:01 PM EST [facility] Eosinophil % 0.0(L) 0.3 - 6.2 % 09/02/2025 4:01 PM EST [facility] Basophil % 0.0 0.0 - 1.5 % 09/02/2025 4:01 PM [facility] Bands % 4.0 0.0 - 5.0 % 09/02/2025 4:01 PM [facility] Metamyelocyte % 1.0(H) 0.0 - 0.0 % 09/02/2025 4:01 PM [facility] Myelocyte % 1.0(H) 0.0 - 0.0 % 09/02/2025 4:01 PM [facility] Atypical Lymphocyte % 3.0 0.0 - 5.0 % 09/02/2025 4:01 PM [facility] Neutrophils Absolute 9.65(H) 1.70 - 7.00 10*3/mm3 09/02/2025 4:01 PM [facility] Lymphocytes Absolute 0.89 0.70 - 3.10 10*3/mm3 09/02/2025 4:01 PM [facility] Monocytes Absolute 0.33 0.10 - 0.90 10*3/mm3 09/02/2025 4:01 PM [facility] Eosinophils Absolute 0.00 0.00 - 0.40 10*3/mm3 09/02/2025 4:01 PM [facility] Basophils Absolute 0.00 0.00 - 0.20 10*3/mm3 09/02/2025 4:01 PM [facility] RBC Morphology Normal Normal 09/02/2025 4:01 PM [facility] WBC Morphology Normal Normal 09/02/2025 4:01 PM [facility] Platelet Morphology Normal Normal 09/02/2025 4:01 PM [facility] Blood Venipuncture / Unknown 09/02/2025 2:36 PM EST 09/02/2025 2:47 PM EST us Lizbeth Myers SAFETY TEACHER LAB BLOOD ORDERABLES Final Result [facility]
[address] [place] [address], * XR Chest 1 View (09/02/2025 11:37 [...] MD 09/02/2025 12:03 PM EST Workstation ID: [id number] Narrative 09/02/2025 12:03 PM EST XR CHEST [...] AP chest x-ray 08/29/2025, 08/28/2025; CT abdomen [id number]/[id number] Findings: Lower chest is not entirely included. [...] MD 09/02/2025 12:03 PM EST Workstation ID: [id number] Lizbeth Myers SAFETY TEACHER IMG DIAGNOSTIC IMAGING ORDNy ROGERS Final Result * (ABNORMAL) Comprehensive Metabolic Panel (09/02/2025 5:43 AM EST) Only the most recent of5 resultswithin the time period is included. Pathologist [facility] Glucose 99 65 - 99 mg/dL 09/02/2025 6:55 AM [facility] BUN 22.7 8.0 - 23.0 mg/dL 09/02/2025 6:55 AM [facility] Creatinine 0.69(L) 0.76 - 1.27 mg/dL 09/02/2025 6:55 AM [facility] Sodium 148(H) 136 - 145 mmol/L 09/02/2025 6:55 AM [facility] Potassium 3.7 3.5 - 5.2 mmol/L 09/02/2025 6:55 AM [facility] Chloride 116(H) 98 - 107 mmol/L 09/02/2025 6:55 AM [facility] CO2 22.5 22.0 - 29.0 mmol/L 09/02/2025 6:55 AM [facility] Calcium 8.2(L) 8.6 - 10.5 mg/dL 09/02/2025 6:55 AM [facility] Total Protein 5.5(L) 6.0 - 8.5 g/dL 09/02/2025 6:55 AM [facility] Albumin 3.1(L) 3.5 - 5.2 g/dL 09/02/2025 6:55 AM [facility] ALT (SGPT) 81(H) 1 - 41 U/L 09/02/2025 6:55 AM [facility] AST (SGOT) 42(H) 1 - 40 U/L 09/02/2025 6:55 AM [facility] Alkaline Phosphatase 171(H) 39 - 117 U/L 09/02/2025 6:55 AM EST [facility] Total Bilirubin 0.8 0.0 - 1.2 mg/dL 09/02/2025 6:55 AM EST [facility] Globulin 2.4 gm/dL 09/02/2025 6:55 AM EST [facility] Comment:Calculated Result A/G Ratio 1.3 g/dL 09/02/2025 6:55 AM EST [facility] BUN/Creatinine Ratio 32.9(H) 7.0 - 25.0 09/02/2025 6:55 AM EST [facility] Anion Gap 9.5 5.0 - 15.0 mmol/L 09/02/2025 6:55 AM EST [facility] eGFR 90.1 >60.0 mL/min/1.7 3 09/02/2025 6:55 AM EST [facility] Blood Venipuncture / Unknown 09/02/2025 5:43 AM EST 09/02/2025 6:09 AM EST [facility] - 09/02/2025 6:55 AM EST [...] MD LAB BLOOD ORDERABLES Final Re sult [facility]
[address] [place] [address], * (ABNORMAL) Hepatic Function Panel (09/01/2025 4:01 AM EST) Only the most recent of2 resultswithin the time period is included. Total Protein 5.0(L) 6.0 - 8.5 g/dL 09/01/2025 4:48 AM EST [facility] Albumin 3.0(L) 3.5 - 5.2 g/dL 09/01/2025 4:48 AM EST [facility] ALT (SGPT) 98(H) 1 - 41 U/L 09/01/2025 4:48 AM EST [facility] AST (SGOT) 38 1 - 40 U/L 09/01/2025 4:48 AM EST [facility] Alkaline Phosphatase 108 39 - 117 U/L 09/01/2025 4:48 AM EST [facility] Total Bilirubin 0.6 0.0 - 1.2 mg/dL 09/01/2025 4:48 AM [facility] Bilirubin, Direct 0.5(H) 0.0 - 0.3 mg/dL 09/01/2025 4:48 AM [facility] Bilirubin, Indirect 0.1 mg/dL 09/01/2025 4:48 AM [facility] Blood Venipuncture / Unknown 09/01/2025 4:01 AM EST 09/01/2025 4:15 AM EST Brian Hughes MD LAB BLOOD ORDERABLES Final R esult [facility]
[address] [place] [address], * Telemetry Scan (08/31/2025 2:54 PM EST) Only the most recent of2 resultswithin the time period is included. [facility] ECG ORDERABLES Final Result * APPLIED PSYCHOLOGY PROFESSOR FEES - Fiberoptic Endo Eval Swallow (08/31/2025 9:23 AM EST) Narrative SYSTEMGENERATED, DOCUMENTATION - 08/31/2025 9:23 AM EST This procedure was auto-finalized with no dictation required. Brian Hughes MD APPLIED PSYCHOLOGY PROFESSOR ORDERABLES Final Result * (ABNORMAL) Lipase (08/31/2025 3:38 AM EST) Only the most recent of4 resultswithin the time period is included. Pathologist [facility] Lipase 110(H) 13 - 60 U/L 08/31/2025 4:30 AM EST [facility] Blood Line / Unknown 08/31/2025 3: 38 AM EST 08/31/2025 3:45 AM EST Hermes Jaramillo MD LAB BLOOD ORDERABLES Final Re sult [facility]
[address] [place] [address], [place] [phone] * (ABNORMAL) Blood Gas, Arterial With Co-Ox (08/29/2025 5:10 PM EST) Only the most recent of7 resultswithin the time period is included. [facility] Arterial Line 08/29/2025 5:10 PM EST [facility] THERAPY Andrey's Test N/A 08/29/2025 5:10 PM EST [facility] THERAPY pH, Arterial 7.490(H) 7.350 - 7.450 pH units 08/29/2025 5:10 PM EST [facility] Comment:83 Value above refer ence range pCO2, Arterial 31.6(L) 35.0 - 45.0 mm Hg 08/29/2025 5:10 PM EST [facility] Comment:84 Value below refer ence range pO2, Arterial 145.0(H) 83.0 - 108.0 mm Hg 08/29/2025 5:10 PM EST [facility] HCO3, Arterial 24.0 20.0 - 26.0 mmol/L 08/29/2025 5:10 PM EST [facility] Base Excess, Arterial 0.8 0.0 - 2.0 mmol/L 08/29/2025 5:10 PM [facility] Hemoglobin, Blood Gas 7.5(L) 13.5 - 17.5 g/dL 08/29/2025 5:10 PM [facility] Comment:84 Value below refer ence range Hematocrit, Blood Gas 23.1(L) 38.0 - 51.0 % 08/29/2025 5:10 PM [facility] Oxyhemoglobin 98.7 94 - 99 % 08/29/2025 5:10 PM [facility] Methemoglobin 0.30 0.00 - 1.50 % 08/29/2025 5:10 PM [facility] Carboxyhemoglobin 1.1 0 - 2 % 025 5:10 PM [facility] CO2 Content 25.0 22 - 33 mmol/L 08/29/2025 5:10 PM [facility] Temperature 37.0 08/29/2025 5:10 PM [facility] Barometric Pressure for Blood Gas 08/29/2025 5:10 PM [facility] Comment:N/A Modality Ventilator 08/29/2025 5:10 PM [facility] FIO2 40 % 08/29/2025 5:10 PM [facility] Ventilator Mode PS 5:10 PM [facility] Rate 0 Breaths/ minute 08/29/2025 5:10 PM [facility] PEEP 6.0 08/29/2025 5:10 PM [facility] PSV 10.0 cmH2O 08/29/2025 5:10 PM [facility] PIP 0 cmH2O 08/29/2025 5:10 PM [facility] Comment:Meter: [id number] [employer]st: [id number] IPAP 0 cm H2O 08/29/2025 5:10 PM [facility] EPAP 0 cm H2O 08/29/2025 5:10 PM EST [facility] pH, Temp Corrected 7.490 pH Units 2024 5:10 PM EST [facility] pCO2, Temperature Corrected 31.6(L) 35 - 48 mm Hg 08/29/2025 5:10 PM EST [facility] pO2, Temperature Corrected 145(H) 83 - 108 mm Hg 08/29/2025 5:10 PM EST [facility] Arterial Blood 08/29/2025 5: 10 PM EST 08/29/2025 5:10 PM EST [facility] DO LAB BLOOD ORDERABLE S Final Result Performing Organization Address City/[facility]/ZIP Co de Phone Number [facility]
[address] [place] [address], * (ABNORMAL) STAT Lactic Acid, Reflex (08/29/2025 4:18 PM EST) Only the most recent of6 resultswithin the time period is included. Lactate 2.3(HH) 0.5 - 2.0 mmol/L 08/29/2025 4:52 PM EST [facility] Comment:Falsely depressed re sults may occur on samples drawn from patients receiving N-Acetylcysteine (NAC) or Metamizole. Blood Line / Unknown 08/29/2025 4: 18 PM EST 08/29/2025 4:29 PM EST Cristian Mckee LAB BLOOD ORDERABLE S Final Result [facility]
[address] [place] [address], * XR Abdomen KUB (08/28/2025 10:13 AM EST) Anatomical Region Laterality Modality Body, Abdomen N/A Radiographic Radha ging 08/28/2025 10:5 3 AM EST Impressions 08/28/2025 10:53 AM EST Impression: NG tube tip overlies the mid body of the stomach. Electronically Signed: Stephen Toussaint MD 08/28/2025 10:53 AM EST Workstation ID: [id number] Narrative 08/28/2025 10:53 AM EST XR ABDOMEN [...] MD 08/28/2025 10:53 AM EST Workstation ID: [id number] us Hermes Jaramillo MD IMG DIAGNOSTIC IMAGING ORDERA BLES Final Result * [place] Cholangiogram Operative (08/28/2025 8:46 AM EST) Anatomical Region Laterality Modality Abdomen, Other Radio Fluoroscop y 08/28/2025 3:22 PM EST Impressions 08/28/2025 3:24 PM EST Impression: Images saved during intraoperative cholangiogram, see operative report for further detail. Electronically Signed: Brian Crandall MD 08/28/2025 3:24 PM EST Workstation ID: [id number] Narrative 08/28/2025 3:24 PM EST FL CHOLANGIOGRAM [...] MD 08/28/2025 3:24 PM EST Workstation ID: [id number] Hermes Jaramillo MD IMG FLUOROSCOPY ORDERABLES Fi nal Result * (ABNORMAL) POC Surgery Labs (08/28/2025 8:43 AM EST) Ionized Calcium 1.35(H) 1.15 - 1.30 mmol/L 08/28/2025 9:41 AM EST [facility] POC Potassium 3.5 3.5 - 4.9 mmol/L 08/28/2025 9:41 AM EST [facility] Sodium 142 138 - 146 mmol/L 08/28/2025 9:41 AM EST [facility] Total CO2 18(L) 24 - 29 mmol/L 08/28/2025 9:41 AM EST [facility] Hemoglobin 7.8(LL) 12.0 - 17.0 g/dL 08/28/2025 9:41 AM EST [facility] Hematocrit 23(L) 38 - 51 % 08/28/2025 9:41 AM EST [facility] pCO2, Arterial 44.8 35 - 45 mm Hg 08/28/2025 9:41 AM EST [facility] pO2, Arterial 340(H) 80 - 105 mmHg 08/28/2025 9:41 AM EST [facility] Comment:Serial Number: [id number] Base Excess -12.0000(L ) -5 - 5 mmol/L 08/28/2025 9:41 AM EST [facility] O2 Saturation, Arterial 100(H) 95 - 98 % 08/28/2025 9:41 AM EST [facility] pH, Arterial 7.18(L) 7.35 - 7.6 pH units 08/28/2025 9:41 AM [facility] HCO3, Arterial 16.5(L) 22 - 26 mmol/L 08/28/2025 9:41 AM EST [facility] Glucose 117 70 - 130 mg/dL 08/28/2025 9:41 AM EST [facility] Blood 08/28/2025 8:43 AM EST 08/28/2025 9:41 AM EST Cristian Mckee DO POINT OF CARE TEST ORDERABLES Final Result [facility]
[address] [place] [address], * Tissue Pathology Exam (08/28/2025 8:40 AM EST) Case Report Surgical Pathology Report Case: [id number] Authorizing Provider: Hermes Jaramillo MD Collected: 08/28/2025 08:40 AM Ordering Location: [facility] Received: 08/29/2025 07:43 AM OR Pathologist: Zach Arenas MD Specimen: Gallbladder, gallbladder 08/31/2025 10:47 AM EST [facility] Clinical Information Cholecystitis 08/31/2025 10:47 AM EST [facility] Final Diagnosis GALLBLADDER, CHOLECYSTECTOMY: Chronic cholecystitis. Reactive epithelial changes present; negative for dysplasia. Portion of lymph node negative for malignancy. 08/31/2025 10:47 AM [facility] at 1047 EST Gross Description [...] mucosal fold is present within the fundus. Brusher Machine sections are submitted as follows: 1A-en face cystic duct margin, neck, body, and fundus with mucosal fold 1B-possible disrupted lymph node. LDP Additional sections are submitted in blocks 1C-1G. LDP 08/30/2025 08/31/2025 10:47 AM [facility] Microscopic Description The slides are reviewed and demonstrate histopathologic features supporting the above rendered diagnosis. 08/31/2025 10:47 AM [facility] Tissue Gallbladder structure / Unknown 08/28/2025 8:40 AM EST 08/29/2025 7:43 AM EST us Hermes Jaramillo MD PATHOLOGY/CYTOLOGY ORDERABLES Final Result [facility]
[address] [place] [address], * BH AN ETT AIRWAY (08/28/2025 8:16 AM EST) Narrative Margo Chung CRNA - 08/28/2025 8:16 AM EST Margo Chung CRNA 08/28/2025 8:17 AM Airway Reason: elective Date/Time: 08/28/2025 8:05 AM Airway not difficult General Information and Staff Patient location during procedure: [place] [facility]/CAA: Margo Chung CRNA Indications and Patient Condition [...] of2 resultswithin the time period is included. [facility] Blood Culture No growth at 5 days 09/02/2025 7:00 AM EST [facility] Blood Arterial blood specimen / Unknown Venipuncture / Unknown 08/28/2025 6:38 AM EST 08/28/2025 6:53 AM EST us Linda Rubin MD MICROBIOLOGY - GENERAL ORDERABLE S Final Result [facility]
[address] [place] [address], * Type & Screen (08/28/2025 6:38 AM EST) Pathologist [facility] ABO Type A 08/28/2025 7:40 AM EST [facility] RH type Positive 08/28/2025 7:40 AM EST [facility] Antibody Screen Negative 08/28/2025 7:40 AM [facility] T&S Expiration Date 08/31/2025 11:59:59 PM 08/28/2025 7:40 AM [facility] Blood Venipuncture / Unknown 08/28/2025 6:38 AM EST 08/28/2025 7:06 AM EST Alma Rosa Lucas APRN BLOOD BANK TEST ORDERABLES Edited Result - Final [facility]
[address] [place] [address], * ABO RH Specimen Verification (08/28/2025 6:13 AM EST) ABO Type A 08/28/2025 10:44 PM [facility] RH type Positive 08/28/2025 10:44 PM [facility] Blood Venipuncture / Unknown 08/28/2025 6:13 AM EST 08/28/2025 7:24 AM EST Linda Rubni MD BLOOD BANK TEST ORDERABLES Final Result [facility]
[address] [place] [address], * (ABNORMAL) Protime-INR (08/28/2025 6:13 AM EST) Protime 18.2(H) 12.2 - 15.3 Seconds 08/28/2025 6:55 AM [facility] INR 1.41(H) 0.89 - 1.12 08/28/2025 6:55 AM EST [facility] Blood Line / Unknown 08/28/2025 6: 13 AM EST 08/28/2025 6:33 AM EST Alma Rosa Lucas APRN LAB BLOOD ORDERABLES Final Result [facility]
[address] [place] [address], * Fibrinogen (08/28/2025 6:13 AM EST) Fibrinogen 289 203 - 567 mg/dL 08/28/2025 7:24 AM EST [facility] Blood Line / Unknown 08/28/2025 6: 13 AM EST 08/28/2025 6:33 AM EST Alma Rosa Lucas APRN LAB BLOOD ORDERABLES Final Result Performing Organization Address City/[facility] Co de Phone Number [facility]
[address] [place] [address], * FL ARTL CATHJ/CANNULJ MNTR/TRANSFUSION SPX PRQ, HC INSERTION ARTERIAL CATH (08/28/2025 5:20 AM EST) Narrative Alma Rosa Lucas APRN - 08/28/2025 5:20 AM EST Alma Rosa Lucas APRN 08/28/2025 5:21 AM Insert Arterial Line Date/Time: 08/28/2025 5:20 AM Performed by: Alma Rosa Lucas APRN Authorized by: Alma Rosa Lucas APRN [place] Protocol: Verbal consent obtained?: Yes Risks and [...] time out verifies correct patient, procedure, equipment, manager technical support and site/side marked as required: Preparation: [...] IV THERAPY ORDERABLES Suzanna wright Result * [place] INSJ NON-TUNNELED CENTRAL VENOUS CATH AGE 3 [...] to verify the correct patient, procedure, equipment, manager technical support and site/side marked as required. Indications: [...] immediate complications us Alma Rosa Lucas APRN PROCEDURE/MINOR SURGICAL O RDERABLES Final Result * (ABNORMAL) Blood Gas, Venous With Co-Ox (08/28/2025 2:22 AM EST) Site Nurse/Dr Draw 08/28/2025 2:22 AM [facility] pH, Venous 7.299(L) 7.310 - 7.410 pH Units 08/28/2025 2:22 AM [facility] pCO2, Venous 36.1(L) 41.0 - 51.0 mm Hg 08/28/2025 2:22 AM [facility] Comment:84 Value below refer ence range pO2, Venous 52.1 27.0 - 53.0 mm Hg 08/28/2025 2:22 AM [facility] HCO3, Venous 17.7(L) 22.0 - 28.0 mmol/L 08/28/2025 2:22 AM [facility] Base Excess, Venous -8.0(L) -2.0 - 2.0 mmol/L 08/28/2025 2:22 AM [facility] Hemoglobin, Blood Gas 10.2(L) 13.5 - 17.5 g/dL 08/28/2025 2:22 AM [facility] Oxyhemoglobin Venous 84.3 % 06/2025 2:22 AM EST [facility] Methemoglobin Venous 0.5 % 06/2025 2:22 AM EST [facility] Carboxyhemoglobin Venous 1.4 % 08/28/2025 2:22 AM EST [facility] CO2 Content 18.8(L) 22 - 33 mmol/L 08/28/2025 2:22 AM EST [facility] Temperature 37.0 08/28/2025 2:22 AM EST [facility] Barometric Pressure for Blood Gas 08/28/2025 2:22 AM EST [facility] Comment:N/A Modality Nasal Cannula 08/28/2025 2:22 AM EST [facility] FIO2 26 % 08/28/2025 2:22 AM EST [facility] Rate 0 Breaths/ minute 08/28/2025 2:22 AM EST [facility] PIP 0 cmH2O 08/28/2025 2:22 AM EST [facility] Comment:Meter: [id number] Pmo Business Analyst: [id number] IPAP 0 cm H2O 08/28/2025 2:22 AM EST [facility] EPAP 0 cm H2O 08/28/2025 2:22 AM EST [facility] Venous Blood 08/28/2025 2:22 AM EST 08/28/2025 2:22 AM EST us Librado Bangura MD LAB BLOOD ORDERABLES Final Resu lt [facility]
[address] [place] [address], * ECG 12 Lead Rhythm Change (08/28/2025 2:00 AM EST) Only the most recent of2 resultswithin the time period is included. QT Interval 316 ms ECG QTC Interval [...] Luís Ellis MD us Alma Rosa Lucas SAFETY TEACHER ECG ORDERABLES Final Resu lt ECG * (ABNORMAL) High Sensitivity Troponin T 1Hr (08/27/2025 10:34 PM EST) HS Troponin T 34(H) <22 ng/L 08/27/2025 11:53 PM EST [facility] Troponin T Numeric Delta -5 ng/L 08/27/2025 11:53 PM EST [facility] Troponin T % Delta -13 Abnormal if >/= 20% 08/27/2025 11:53 PM EST [facility] Blood Venipuncture / Unknown 08/27/2025 10:34 PM EST 08/27/2025 11:26 PM EST Narrative [facility] - 08/27/2025 11:53 PM EST High [...] APRN LAB BLOOD ORDERABLES Final Resul t [facility]
[address] [place] [address], * Hepatitis Panel, Acute (08/27/2025 10:34 PM EST) Hepatitis B Surface Ag Non-Reacti ve Non-Reacti ve 08/28/2025 12:05 AM EST [facility] Hep A IgM Non-Reacti ve Non-Reacti ve 08/28/2025 12:05 AM EST [facility] Hep B C IgM Non-Reacti ve Non-Reacti ve 08/28/2025 12:05 AM EST [facility] Hepatitis C Ab Non-Reacti ve Non-Reacti ve 08/28/2025 12:05 AM EST [facility] Blood Venipuncture / Unknown 08/27/2025 10:34 PM EST 08/27/2025 11:26 PM EST Narrative [facility] - 08/28/2025 12:05 AM EST Results may be falsely decreased if patient taking Biotin. us Hermes Jaramillo MD LAB BLOOD ORDERABLES Final Re sult [facility]
[address] [place] [address], * CT Abdomen Pelvis Without Contrast (08/27/2025 [...] MD 08/27/2025 10:25 PM EST Workstation ID: [id number] Narrative 08/27/2025 10:[address] ABDOMEN [...] MD 08/27/2025 10:25 PM EST Workstation ID: [id number] Hermes Jaramillo MD [facility] [place] ORDERABLES Final Resul t * Iron Profile + Ferritin (08/27/2025 7:43 PM EST) Iron 86 59 - 158 mcg/dL 08/27/2025 10:04 PM EST [facility] Iron Saturation (TSAT) 28 20 - 50 % 08/27/2025 10:04 PM EST [facility] Transferrin 209 200 - 360 mg/dL 08/27/2025 10:04 PM EST [facility] TIBC 311 298 - 536 mcg/dL 08/27/2025 10:04 PM EST [facility] Ferritin 160.00 30.00 - 400.00 ng/mL 08/27/2025 10:04 PM EST [facility] Blood Venipuncture / Unknown 08/27/2025 7:43 PM EST 08/27/2025 7:53 PM EST Narrative [facility] - 08/27/2025 10:04 PM EST Results may be falsely decreased if patient taking Biotin. Librado Bangura MD LAB BLOOD ORDERABLES Final Resu lt [facility]
[address] [place] [address], * (ABNORMAL) High Sensitivity Troponin T (08/27/2025 7:43 PM EST) HS Troponin T 39(H) <22 ng/L 08/27/2025 8:56 PM EST [facility] Blood Venipuncture / Unknown 08/27/2025 7:43 PM EST 08/27/2025 7:53 PM EST Narrative [facility] - 08/27/2025 8:56 PM EST High [...] ORDERABLES Final Resul t Performing Organization Address City/[facility]/ZIP Co de Phone Number [facility]
[address] [place] [address], * IMAGING SCANNED (08/27/2025) Only the most recent of3 resultswithin the time period is included. Anatomical Region Laterality Modality Radiographic Radha ging [facility] Onbase IMG DIAGNOSTIC IMAGING ORDERA BLES Final Result * LABS SCANNED (08/27/2025) [facility] Onbase LAB BLOOD ORDERABLES Final Re sult from Last 3 Months Insurance MEDICARE A & B Member Subscriber Plan / Payer (Ef fective 2003-Present) Name:Jayme Thurman Member ID:[id number] Relation to Subscriber:Self Name:Jayme Thurman Subscriber ID:[id number] Payer ID:[id number] Group ID:Not on file Type:Not on file Address: [address] Advance Directives * CPR (Attempt to Resuscitate) (Latest Code Status on File) Date Activated Date Inactivated Comments 08/27/2025 8:05 PM 09/05/2025 5:42 PM Question Answer Comments Code Status (Patient has no pulse and is not breathing): CPR (Attempt to Resuscitate) Medical Interventions (Patie nt has pulse or is breathing): Full Support Level Of Support Discussed With: Patient Care Teams Corner Block Cutter Relationship Specialty Start Date End Date Lisa Arreola APRN [address] [place] [address] PCP - General Nurse Practitioner 08/29/25
--- OUTSIDE RECORDS SUMMARY | 2025-10-06 12:02 | XMS_ITS | Encounter Summary ---
Author Organization [place] [address] Care Team Providers Care Eligibility Services Representative Name Role Phone Unavailable Primary Care Provider Unavailabl e Encounter Details Date Type Department Care Team (Latest Contact Info) Description 09/07/2025 External Contact SEP Pulmonology [facility] [address] [phone] James Boswell MD [address] [phone] Critical illness myopathy (Primary Dx); [...] 11:59 PM EST Pt was seen at [facility] medical records in their system documented in this encounter Plan of Treatment Not on file documented as of this encounter Visit Diagnoses Diagnosis Critical illness myopathy- Primary COPD, very severe (HCC) Chronic airway obstruction, not elsewhere classified documented in this encounter
--- OUTSIDE RECORDS SUMMARY | 2025-10-06 12:02 | XMS_ITS | Encounter Summary ---
Author Organization [place] [address] Care Team Providers Care Criminal Research Specialist Name Role Phone Unavailable Primary Care Provider Unavailabl e Encounter Details Date Type Department Care Team (Latest Contact Info) Description 09/12/2025 External Contact SEP Pulmonology [facility] [address] [phone] Wilbur Dominique MD [address] [phone] Critical illness myopathy (Primary Dx); COPD, very severe (HCC); Acute and chronic respiratory failure with hypoxia (HCC); Pulmonary nodule Social History Tobacco Use Types Packs/Day Years Used Date Smoking Tobacco: Never Assessed Sex and Gender Information Value Date Recorded Sex Assigned at Not on file Legal Sex Male 5:08 AM EDT Gender Identity Not on file Sexual Orientation Not on file documented as of this encounter Progress Notes * Alejandra Jackson RMA - 09/12/2025 10:43 AM EST Pt was seen at [facility]- medical records in their system documented in this encounter Plan of Treatment Not on file documented as of this encounter Visit Diagnoses Diagnosis Critical illness myopathy- Primary COPD, very severe (HCC) Chronic airway obstruction, not elsewhere classified Acute and chronic respiratory failure with hypoxia (HCC) Acute and chronic respiratory failure Pulmonary nodule Solitary pulmonary nodule documented in this encounter
--- OUTSIDE RECORDS SUMMARY | 2025-10-06 12:02 | XMS_ITS | Encounter Summary ---
Author Organization [place] [address] Care Team Providers Care Hotel Valet Attendant Name Role Phone Unavailable Primary Care Provider Unavailabl e Encounter Details Date Type Department Care Team (Latest Contact Info) Description 09/10/2025 External Contact SEP Pulmonology [facility] [address] [phone] James Boswell MD [address] [phone] Critical illness myopathy (Primary Dx); [...] 11:59 PM EST Pt was seen at [facility] medical records in their system documented in this encounter Plan of Treatment Not on file documented as of this encounter Visit Diagnoses Diagnosis Critical illness myopathy- Primary COPD, very severe (HCC) Chronic airway obstruction, not elsewhere classified documented in this encounter
--- OUTSIDE RECORDS SUMMARY | 2025-10-06 12:03 | XMS_ITS | Encounter Summary ---
Author Organization [place] [address] Care Team Providers Care Senior Electrical Engineer Name Role Phone Unavailable Primary Care Provider Unavailabl e Encounter Details Date Type Department Care Team (Latest Contact Info) Description 09/09/2025 External Contact SEP Pulmonology [facility] [address] [phone] Wilbur Dominique MD [address] [phone] Critical illness myopathy (Primary Dx); [...] Progress Notes * Alejandra Jackson RMA - 09/09/2025 11:59 PM EST Pt was seen at [facility]- medical records in their system documented in this encounter Plan of Treatment Not on file documented as of this encounter Visit Diagnoses Diagnosis Critical illness myopathy- Primary COPD, very severe (HCC) Chronic airway obstruction, not elsewhere classified documented in this encounter
--- OUTSIDE RECORDS SUMMARY | 2025-10-06 12:03 | XMS_ITS | Clinical Summary ---
Author Organization [facility] U S Address [address] [place] [address] Phone Care Team Providers Care Autotransfusionist Name Role Phone Unavailable Primary Care Provider Unavailabl e Allergies No known active allergies Encounters Date Type Department Care Team Description 09/12/2025 External Contact [facility] [address] [phone] Wilbur Dominique MD Critical illness myopathy (Primary Dx); COPD, very severe (HCC); Acute and chronic respiratory failure with hypoxia (HCC); Pulmonary nodule 09/11/2025 External Contact [facility] [address] [phone] James Boswell MD Critical illness myopathy (Primary Dx); COPD, very severe (HCC) 09/10/2025 9:32 AM EST - 09/10/2025 11:59 PM EST Hospital Encounter [facility] Referral Lab [address] [place] [phone] Wilbur Dominique MD Discharge Disposition: Home or Self Care 09/10/2025 External Contact [facility] [address] [phone] James Boswell MD Critical illness myopathy (Primary Dx); COPD, very severe (HCC) 09/09/2025 External Contact [facility] [address] [phone] Wilbur Dominique MD Critical illness myopathy (Primary Dx); COPD, very severe (HCC) 09/08/2025 External Contact [facility] [address] [phone] Wilbur Dominique MD Critical illness myopathy (Primary Dx); Acute hypercapnic respiratory failure (HCC); COPD, very severe (HCC); Wheezing 09/07/2025 External Contact [facility] [address] [phone] James Boswell MD Critical illness myopathy (Primary Dx); COPD, very severe (HCC) 09/07/2025 External Contact [facility] [address] [place] [phone] James Boswell MD Critical illness myopathy (Primary Dx); COPD, very severe (HCC) 09/06/2025 8:58 AM EST - 09/06/2025 11:59 PM EST Hospital Encounter [facility] Referral Lab [address] [place] [phone] Wilbur Dominique MD Discharge Disposition: Home or Self Care 09/06/2025 External Contact [facility] [address] [phone] iWlbur Dominique MD Critical illness myopathy (Primary Dx); [...] Health Maintenance Due Date Last Done Comments Wellness Exam Medicare 1943 DTaP/TDaP/Td (1 - Tdap) 1957 Pneumococcal [...] 11:11 AM EST [facility] [place] # 0.5 0.3 - 0.9 x10(3)/mcL 09/10/2025 11:11 AM EST [facility] Eos # Manual 0.2 0.0 - 0.5 x10(3)/mcL 09/10/2025 11:11 AM EST [facility] Baso # Manual 0.0 0.0 - 0.1 x10(3)/mcL 09/10/2025 11:11 AM EST [facility] Myelo # 0.1 x10(3)/[facility] 09/10/2025 11:11 AM EST [facility] Polychrom Slight 09/10/2025 11:11 AM EST [facility] Ovalocyte Occasional 09/10/2025 11:11 AM EST [facility] Blood VENOUS BLOOD / Unknown Venipuncture / Unknown 09/10/2025 8:19 AM EST 09/10/2025 10:20 AM EST Wilbur Dominique MD HEMATOLOGY ORDERABLES F inal Result [facility] [address] [facility] [facility], [place] [address] * (ABNORMAL) BASIC METABOLIC PANEL (09/10/2025 8:19 [...] mL/min/1.7 3 m2 09/10/2025 11:03 AM EST [facility] Comment:Estimated GFR was ca lculated using the CKD-EPIcr (2020) equation refit without race. The equation is recommended by the National Kid[employer] - [place] [employer] Neph[employer] Task Force. Blood VENOUS BLOOD / Unknown Venipuncture / Unknown 09/10/2025 8:19 AM EST 09/10/2025 10:20 AM EST us Wilbur Dominique MD CHEMISTRY ORDERABLES Fi nal Result [employer] [address] [facility] , [place] [address] * (ABNORMAL) MAGNESIUM LEVEL (09/06/2025 5:00 AM EST) Magnesium 2.6(H) 1.6 - 2.4 mg/dL 09/06/2025 9:23 AM EST [employer] Blood VENOUS BLOOD / Unknown Venipuncture / Unknown 09/06/2025 5:00 AM EST 09/06/2025 8:59 AM EST us Wilbur Dominique MD CHEMISTRY ORDERABLES Fi nal Result Performing Organization Address City/[facility]/ZIP Co de Phone Number [employer] [address] [facility] , [place] [address] from Last 3 Months Insurance [place] [address] [place]ARE [place] Member Subscriber Plan / Payer (Ef fective 2003-Present) Name:Jayme Thurman Member ID:[id number] Relation to Subscriber:Self Name:Jayme Thurman Subscriber ID:[id number] Payer ID:Not on file Group ID:Not on file Type:Not on file Address: [address] [id number]
--- OUTSIDE RECORDS SUMMARY | 2025-10-06 12:05 | XMS_ITS | Encounter Summary ---
Author Organization [place] [address] Care Team Providers Care Clay Dry Press Operator Name Role Phone Unavailable Primary Care Provider Unavailabl e Encounter Details Date Type Department Care Team (Latest Contact Info) Description 09/06/2025 External Contact [facility] [address] [phone] Wilbur Dominique MD [address] [phone] Critical illness myopathy (Primary Dx); [...] 3:51 PM EST Pt was seen at [facility] - medical records in their system Admit [...]
--- OUTSIDE RECORDS SUMMARY | 2025-10-06 12:05 | XMS_ITS | Encounter Summary ---
Author Organization [place] [address] Care Team Providers Care Structural Steel Fitter Name Role Phone Unavailable Primary Care Provider Unavailabl e Encounter Details Date Type Department Care Team (Latest Contact Info) Description 09/07/2025 External Contact [facility] [address] [phone] James Boswell MD [address] [phone] Critical illness myopathy (Primary Dx); [...] 11:59 PM EST Pt was seen at [facility] medical records in their system documented in this encounter Plan of Treatment Not on file documented as of this encounter Visit Diagnoses Diagnosis Critical illness myopathy- Primary COPD, very severe (HCC) Chronic airway obstruction, not elsewhere classified documented in this encounter
== END 2025-10-05 23:59 | disposition home or self-care (01) ==
LOC: LAB.DROPOF 10-06 10:35
PROVIDERS: PCP Nurse Practitioner; Visit Provider Nurse Practitioner
DX: K85.10 Biliary acute pancreatitis without necrosis or infection (principal); I10 Essential (primary) hypertension; K83.09 Other cholangitis
CPT/HCPCS: 80053; 85007; 85025